=== PATIENT | male | born 1965 | race Caucasian/White ===

== ENCOUNTER 2020-06-30 11:58 | Outpatient (REF) | payer BC, SELFPAY | END 2020-06-30 11:59 | disposition home or self-care (01) | LOC: HO.LAB 11:58 | PROVIDERS: Visit Provider Internal Medicine | DX: Z20.828 Contact with and (suspected) exposure to other viral communicable diseases (principal) | CPT/HCPCS: C9803; U0003 ==

== ENCOUNTER 2021-12-08 21:38 | Inpatient (IN) | payer BC, SELFPAY ==
[2021-12-08 22:12] VITALS: BP 171/78; PULSE 95; RESP 18; TEMP 36.3; O2SAT 96; BMI 29.7
[2021-12-08 22:36] LABS: Glucose, Whole Blood 247 mg/dL (60-115)
[2021-12-08 22:58] LABS: MANUAL DIFF FLAG NO
[2021-12-08 22:59] LABS: Basophils Percent Auto 0.5 % (0-2); Eosinophils Absolute Auto 0.1 X10*3/uL (0.0-0.4); Eosinophils Percent Auto 1.8 % (0-4); Hematocrit 49.3 % (42.0-52.0); Hemoglobin 15.9 g/dl (14.0-18.0); Imm Gran Abs Auto 0.11 X10*3/uL (0.00-0.03); Imm Gran Pct Auto 1.5 % (0.0-0.4); Lymphocytes Absolute Auto 2.2 X10*3/uL (1.2-4.9); Lymphocytes Percent Auto 29.6 % (20-40); Mean Corpuscular HGB Conc 32.3 g/dl (31.0-36.0); Mean Corpuscular Hemoglobin 28.3 pg (27.0-33.0); Mean Corpuscular Volume 87.7 fL (80.0-98.0); Mean Platelet Volume 9.9 fL (9.4-12.4); Monocytes Absolute Auto 0.5 X10*3/uL (0.1-1.2); Neutrophils Absolute Auto 4.4 x10*3/uL (2.0-8.3); Neutrophils Percent Auto 59.6 % (45-73); Platelet Count 308 X10*3/uL (160-400); Red Blood Count 5.62 X10*6/uL (4.60-5.80); Red Cell Distribution Width 13.8 % (11.0-16.0); White Blood Count 7.4 X10*3/uL (4.8-10.8)
[2021-12-08 23:02] LABS: Appearance Urine CLEAR; Color Urine YELLOW; Glucose Urine UA >=1000 MG/DL (NEG); Leukocyte Esterase Urine NEG (NEG); Nitrite Urine POS (NEG); Urine Blood NEG (NEG); Urine Ketones 5 MG/DL (NEG); Urine Protein NEG (NEG-TRACE)
[2021-12-08 23:10] LABS: Ethanol < 10 mg/dL
[2021-12-08 23:12] LABS: COVID-19 Test Negative (Negative)
[2021-12-08 23:15] LABS: Alanine Aminotransferase 24 U/L (0-40); Alkaline Phosphatase 81 U/L (39-117); Amphetamine Screen Urine Not Detected (Not Detect); Anion Gap 13 (12-20); Aspartate Amino Transferase 21 U/L (5-37); Barbiturates, Urine Not Detected (Not Detect); Benzodiazepines Screen Urine Not Detected (Not Detect); Bilirubin Direct < 0.2 mg/dL (0.0-0.5); Bilirubin Total 0.3 mg/dL (0.0-1.0); Blood Urea Nitrogen 26 mg/dL (9-16); Calcium 10.2 mg/dL (8.4-10.2); Cannabinoid Screen Urine Not Detected (Not Detect); Carbon Dioxide 28 mmol/L (22-29); Chloride 107 mmol/L (96-108); Cocaine Screen Urine Not Detected (Not Detect); Creatinine Clr Calc Pharmacy 70.5; Estimated Glomerular Filt Rate 60; Fentanyl, urine Not Detected (Not Detect); Glucose Random 233 mg/dL (60-115); Magnesium 2.2 mg/dL (1.6-2.6); Opiate Screen Urine Not Detected (Not Detect); Phencyclidine Screen Urine Not Detected (Not Detect); Potassium 4.4 mmol/L (3.3-5.1); Sodium 144 mmol/L (135-145); Total Protein 7.4 g/dL (6.5-8.0)
[2021-12-08 23:18] LABS: Bacteria Urine 3+ /LPF; Squamous Epithelial Cell Urine TRACE /LPF
[2021-12-08 23:22] LABS: Acetaminophen LAB < 1 mcg/mL (<30); Salicylate < 5.0 mg/dL (15-30)
[2021-12-08 23:36] LABS: TSH reflex Free T4 2.04 uIU/mL (0.32-4.0)
--- NOTE | 2021-12-09 01:24 | ED_ITS ---
HPI - Psych General Chief Complaint: Psychiatric Symptoms Stated Complaint: Crisis, psych eval Time Seen by Provider: 12/08/21 22:25 Source: patient Mode of arrival: ambulatory Limitations: no limitations History of Present Illness HPI Narrative: 56-year-old male who presents emergency department for evaluation of depression and suicidal ideation. Patient states that he has been depressed for 13 years. He states that he has had in-patient treatment in the past as well as treatment partial programs. He states that in September of 2019 to he tripped, fell struck his head. He states he sustained a concussion and since that time he has had dizziness and vertigo. 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 He states that over the last 2-3 days he has had thoughts of suicide. He states that he has been thinking of hanging himself. He states that he did have a suicide attempt in the past . He states that time he was on prednisone which caused him to become very depressed, he then overdosed on his 's prescription pain medications. Patient states that he has been talking to outpatient crisis but felt that he needed to come to the hospital today to get more help. He denied being ill in any way. He denied fever, chills, rhinorrhea, sore throat, cough, chest pain, shortness of breath. Patient states that he received 2 Pfizer vaccinations and a booster vaccination. MD complaint: suicidal ideation and feels depressed Onset (ago): day(s) (3) Duration: constant History of same: Yes Relieving factors: none Exacerbating factors: other (Concussion September [address] or work since this injury) Associated psychiatric symptoms: depression and suicidal ideation Associated symptoms: denies other symptoms Treatments prior to arrival: none If self harm: has plan (He wants to hang himself) Related Data Home Medications Medication Instructions Recorded Confirmed bupropion HCl 150 mg 24 hr tablet, 1 tab PO QAM 12/08/21 12/08/21 extended release bupropion HCl 300 mg 24 hr tablet, 1 tab PO DAILY 12/08/21 12/08/21 extended release meclizine 12.5 mg tablet 1 tab PO TID PRN 12/08/21 12/08/21 meloxicam 15 mg tablet 1 tab PO DAILY PRN 12/08/21 12/08/21 metformin 500 mg tablet,extended 2 tab PO BID 12/08/21 12/08/21 release 24 hr sitagliptin 50 mg tablet (Januvia) 1 tab PO DAILY 12/08/21 12/08/21 trazodone 50 mg tablet 0.5 tab PO BEDTIME PRN 12/08/21 12/08/21 valsartan 160 mg tablet 1 tab PO DAILY 12/08/21 12/08/21 Allergies Allergy/AdvReac Type Severity Reaction Status Date / Time codeine [CODEINE] Allergy Unknown delayed Verified 12/08/21 22:11 responses 02/24/17 Review of Systems Review of Systems: Yes all other systems are reviewed and are negative COUNTS INCLUDE 234 BEDS AT THE [facility] Past Medical History COUNTS INCLUDE 234 BEDS AT THE [facility] Narrative: Past medical history: Diabetes, hypertension, hyperlipidemia, depression. Patient had a fall with a head injury September 2021 with concussion and residual vertigo like symptoms. Social history: He denies tobacco use. He states that he only occasionally drinks alcohol. He denies using drugs on a regular basis he states that he has used marijuana gummies. Social History Social History Advance Directives: No Physical Exam Vital Signs: Vital Signs: Last Vital Signs Temp 97.3 F 12/08/21 22:12 Pulse 95 12/08/21 22:12 Resp 18 12/08/21 22:12 BP 171/78 H 12/08/21 22:12 Pulse Ox 96 12/08/21 22:12 BMI result Body Mass Index 29.7 Const: General: cooperative and no acute distress Orientation/consciousness: oriented to person and oriented to place Limitations: no limitations HEENT: Head: Yes normal to inspection, Yes normocephalic and Yes atraumatic Ears: external ears normal General nose exam: Normal external nose present Face and sinus: Yes normal facial exam Mouth: Normal oral and palatal mucosa present Throat: Yes posterior oropharynx normal Eyes: General: appearance normal, both eyes and all related structures Pupils: Equal, round and reactive pupils present Neck: Neck: Yes normal visual inspection, Yes no lymphadenopathy, Yes trachea midline and Yes supple Chest: Chest palpation & inspection: normal inspection of the chest and normal palpation of entire chest wall Resp: Effort & Inspection: normal respiratory effort and able to speak in complete sentences Auscultation: clear to auscultation bilaterally Cardio: Rate: regular rate Rhythm: regular rhythm Heart sounds: S1 normal heart sound present, S2 normal heart sound present and no murmurs GI: Inspection: Yes normal to inspection Palpation (GI): Soft to palpation, nontender and no guarding Auscultation: normal bowel sounds : General: Yes no CVA tenderness Back/Spine/Pelvis: Back: no CVA tenderness Skin: General skin exam: no rashes or lesions noted Neuro: General: oriented to person and oriented to place Cranial nerves: Yes CN's II-XII intact bilaterally and Yes Equal, round and reactive pupils present Cognition (Neuro): normal cognition Motor exam (neuro): 5/5 motor strength present throughout Extrem: General: Yes normal to inspection Psych: Appearance: grossly normal Speech and movement: Normal speech and movement present Affect: normal affect Attitude: cooperative Thought process: Normal thought process present Thought content: Suicidality present and no homicidality Course Course Course Narrative: 56-year-old male who presents emergency department for evaluation of depression worse x3 days with suicidal thoughts with a plan to hang himself. The patient was not ill in any other way. His examination was unremarkable except for an elevated blood pressure of 171/78. The patient does have known hypertension. Laboratory evaluation was ordered. 0135: Laboratory evaluation: CBC was normal. Comprehensive metabolic panel revealed an elevated BUN of 26, elevated glucose of 233. TSH was normal. Urinalysis revealed positive glucose, positive nitrates, negative leukocyte esterase. Microscopic revealed 1-4 RBCs, 15-29 WBCs, trace squamous cells, 3+ bacteria. Urine tox was negative. Alcohol was below detectable limits. COVID was negative. The patient states he did have urinary frequency but no dysuria . The patient will be started on Keflex 500 mg 3 times a day for 5 days for urinary tract infection. He was given his 1st dose this morning. The patient is medically cleared for psychiatric evaluation. 0143: Start physician observation: Physician observation was started at 01:43 hours. The patient will need to be kept in the psychiatric unit until he can be evaluated by our crisis team. The patient's outpatient medications were ordered. The patient's examination revealed that he is awake and alert in no distress, lungs were clear, heart regular rate rhythm, abdomen soft nontender extremities were normal neurologic exam was nonfocal. [facility] - Psych Lab Data Result diagrams: 12/08/21 22:46 12/08/21 22:46 Labs: Lab Results 12/08/21 12/08/21 12/08/21 Range/Units 22:32 22:46 22:46 WBC 7.4 (4.8-10.8) X10*3/uL RBC 5.62 (4.60-5.80) X10*6/uL Hgb 15.9 (14.0-18.0) g/dl Hct 49.3 (42.0-52.0) % MCV 87.7 (80.0-98.0) fL MCH 28.3 (27.0-33.0) pg MCHC 32.3 (31.0-36.0) g/dl RDW 13.8 (11.0-16.0) % Plt Count 308 (160-400) X10*3/uL MPV 9.9 (9.4-12.4) fL Immature Gran % (Auto) 1.5 H (0.0-0.4) % Neut % (Auto) 59.6 (45-73) % Lymph % (Auto) 29.6 (20-40) % [place] % (Auto) 7.0 (2-11) % Eos % (Auto) 1.8 (0-4) % Baso % (Auto) 0.5 (0-2) % Lymph # (Auto) 2.2 (1.2-4.9) X10*3/uL [place] # (Auto) 0.5 (0.1-1.2) X10*3/uL Eos # (Auto) 0.1 (0.0-0.4) X10*3/uL Baso # (Auto) 0.0 (0.0-0.2) X10*3/uL Abs Immat Gran (auto) 0.11 H (0.00-0.03) X10*3/uL Absolute Neuts (auto) 4.4 (2.0-8.3) x10*3/uL Absolute Nucleated RBC 0.000 (0.0-0.012) X10*3/uL Nucleated RBC % (auto) 0.0 (0.0-0.2) /100WBC Sodium 144 (135-145) mmol/L Potassium 4.4 (3.3-5.1) mmol/L Chloride 107 (96-108) mmol/L Carbon Dioxide 28 (22-29) mmol/L Anion Gap 13 (12-20) BUN 26 H (9-16) mg/dL Creatinine 1.25 (0.5-1.4) mg/dL Estim Creat Clear Calc 70.5 Estimated GFR 60 POC Glucose 247 H (60-115) mg/dL Random Glucose 233 H (60-115) mg/dL Calcium 10.2 (8.4-10.2) mg/dL Magnesium (1.6-2.6) mg/dL Total Bilirubin 0.3 (0.0-1.0) mg/dL Direct Bilirubin < 0.2 (0.0-0.5) mg/dL AST 21 (5-37) U/L ALT 24 (0-40) U/L Alkaline Phosphatase 81 (39-117) U/L Total Protein 7.4 (6.5-8.0) g/dL Albumin 4.0 (3.5-5.0) g/dL TSH (0.32-4.0) uIU/mL Urine Color Urine Appearance Urine pH (5.0-8.0) Ur Specific [place] (1.005-1.025) Urine Protein (NEG-TRACE) MG/DL Urine Glucose (UA) (NEG) MG/DL Urine Ketones (NEG) MG/DL Urine Blood (NEG) Urine Nitrite (NEG) Ur Leukocyte Esterase (NEG) Urine RBC (0) /HPF Urine WBC (0-4) /HPF Ur Squamous Epith Cells /LPF Urine Bacteria /LPF Salicylates < 5.0 L (15-30) mg/dL Urine Opiates Screen (Not Detect) Urine Fentanyl Screen (Not Detect) Acetaminophen < 1 (<30) mcg/mL Ur Barbiturates Screen (Not Detect) Ur Phencyclidine Scrn (Not Detect) Ur Amphetamines Screen (Not Detect) U Benzodiazepines Scrn (Not Detect) Urine Cocaine Screen (Not Detect) U Marijuana (THC) Screen (Not Detect) Ethyl Alcohol mg/dL COVID-19 (FERN) (Negative) COVID-19 Clin Com 12/08/21 12/08/21 12/08/21 Range/Units 22:46 22:46 22:46 WBC (4.8-10.8) X10*3/uL RBC (4.60-5.80) X10*6/uL Hgb (14.0-18.0) g/dl Hct (42.0-52.0) % MCV (80.0-98.0) fL MCH (27.0-33.0) pg MCHC (31.0-36.0) g/dl RDW (11.0-16.0) % Plt Count (160-400) X10*3/uL MPV (9.4-12.4) fL Immature Gran % (Auto) (0.0-0.4) % Neut % (Auto) (45-73) % Lymph % (Auto) (20-40) % [place] % (Auto) (2-11) % Eos % (Auto) (0-4) % Baso % (Auto) (0-2) % Lymph # (Auto) (1.2-4.9) X10*3/uL [place] # (Auto) (0.1-1.2) X10*3/uL Eos # (Auto) (0.0-0.4) X10*3/uL Baso # (Auto) (0.0-0.2) X10*3/uL Abs Immat Gran (auto) (0.00-0.03) X10*3/uL Absolute Neuts (auto) (2.0-8.3) x10*3/uL Absolute Nucleated RBC (0.0-0.012) X10*3/uL Nucleated RBC % (auto) (0.0-0.2) /100WBC Sodium (135-145) mmol/L Potassium (3.3-5.1) mmol/L Chloride (96-108) mmol/L Carbon Dioxide (22-29) mmol/L Anion Gap (12-20) BUN (9-16) mg/dL Creatinine (0.5-1.4) mg/dL Estim Creat Clear Calc Estimated GFR POC Glucose (60-115) mg/dL Random Glucose (60-115) mg/dL Calcium (8.4-10.2) mg/dL Magnesium 2.2 (1.6-2.6) mg/dL Total Bilirubin (0.0-1.0) mg/dL Direct Bilirubin (0.0-0.5) mg/dL AST (5-37) U/L ALT (0-40) U/L Alkaline Phosphatase (39-117) U/L Total Protein (6.5-8.0) g/dL Albumin (3.5-5.0) g/dL TSH 2.04 (0.32-4.0) uIU/mL Urine Color YELLOW Urine Appearance CLEAR Urine pH 6.0 (5.0-8.0) Ur Specific [place] 1.020 (1.005-1.025) Urine Protein NEG (NEG-TRACE) MG/DL Urine Glucose (UA) >=1000 H (NEG) MG/DL Urine Ketones 5 (NEG) MG/DL Urine Blood NEG (NEG) Urine Nitrite POS H (NEG) Ur Leukocyte Esterase NEG (NEG) Urine RBC 1-4 (0) /HPF Urine WBC 15-29 H (0-4) /HPF Ur Squamous Epith Cells TRACE /LPF Urine Bacteria 3+ /LPF Salicylates (15-30) mg/dL Urine Opiates Screen (Not Detect) Urine Fentanyl Screen (Not Detect) Acetaminophen (<30) mcg/mL Ur Barbiturates Screen (Not Detect) Ur Phencyclidine Scrn (Not Detect) Ur Amphetamines Screen (Not Detect) U Benzodiazepines Scrn (Not Detect) Urine Cocaine Screen (Not Detect) U Marijuana (THC) Screen (Not Detect) Ethyl Alcohol < 10 mg/dL COVID-19 (FERN) (Negative) COVID-19 Clin Com 12/08/21 12/08/21 Range/Units 22:46 22:47 WBC (4.8-10.8) X10*3/uL RBC (4.60-5.80) X10*6/uL Hgb (14.0-18.0) g/dl Hct (42.0-52.0) % MCV (80.0-98.0) fL MCH (27.0-33.0) pg MCHC (31.0-36.0) g/dl RDW (11.0-16.0) % Plt Count (160-400) X10*3/uL MPV (9.4-12.4) fL Immature Gran % (Auto) (0.0-0.4) % Neut % (Auto) (45-73) % Lymph % (Auto) (20-40) % [place] % (Auto) (2-11) % Eos % (Auto) (0-4) % Baso % (Auto) (0-2) % Lymph # (Auto) (1.2-4.9) X10*3/uL [place] # (Auto) (0.1-1.2) X10*3/uL Eos # (Auto) (0.0-0.4) X10*3/uL Baso # (Auto) (0.0-0.2) X10*3/uL Abs Immat Gran (auto) (0.00-0.03) X10*3/uL Absolute Neuts (auto) (2.0-8.3) x10*3/uL Absolute Nucleated RBC (0.0-0.012) X10*3/uL Nucleated RBC % (auto) (0.0-0.2) /100WBC Sodium (135-145) mmol/L Potassium (3.3-5.1) mmol/L Chloride (96-108) mmol/L Carbon Dioxide (22-29) mmol/L Anion Gap (12-20) BUN (9-16) mg/dL Creatinine (0.5-1.4) mg/dL Estim Creat Clear Calc Estimated GFR POC Glucose (60-115) mg/dL Random Glucose (60-115) mg/dL Calcium (8.4-10.2) mg/dL Magnesium (1.6-2.6) mg/dL Total Bilirubin (0.0-1.0) mg/dL Direct Bilirubin (0.0-0.5) mg/dL AST (5-37) U/L ALT (0-40) U/L Alkaline Phosphatase (39-117) U/L Total Protein (6.5-8.0) g/dL Albumin (3.5-5.0) g/dL TSH (0.32-4.0) uIU/mL Urine Color Urine Appearance Urine pH (5.0-8.0) Ur Specific [place] (1.005-1.025) Urine Protein (NEG-TRACE) MG/DL Urine Glucose (UA) (NEG) MG/DL Urine Ketones (NEG) MG/DL Urine Blood (NEG) Urine Nitrite (NEG) Ur Leukocyte Esterase (NEG) Urine RBC (0) /HPF Urine WBC (0-4) /HPF Ur Squamous Epith Cells /LPF Urine Bacteria /LPF Salicylates (15-30) mg/dL Urine Opiates Screen Not Detected (Not Detect) Urine Fentanyl Screen Not Detected (Not Detect) Acetaminophen (<30) mcg/mL Ur Barbiturates Screen Not Detected (Not Detect) Ur Phencyclidine Scrn Not Detected (Not Detect) Ur Amphetamines Screen Not Detected (Not Detect) U Benzodiazepines Scrn Not Detected (Not Detect) Urine Cocaine Screen Not Detected (Not Detect) U Marijuana (THC) Screen Not Detected (Not Detect) Ethyl Alcohol mg/dL COVID-19 (FERN) Negative (Negative) COVID-19 Clin Com See Note Discharge Plan Discharge Clinical Impression: Depression, Suicidal ideation, Urinary tract infection Patient Disposition: Still a Patient Prescriptions: No Action Januvia 50 mg tablet 1 tab PO DAILY 0RF bupropion HCl 150 mg tablet extended release 24 hr 1 tab PO QAM 0RF bupropion HCl 300 mg tablet extended release 24 hr 1 tab PO DAILY 0RF meclizine 12.5 mg tablet 1 tab PO TID PRN (Reason: dizziness) 0RF meloxicam 15 mg tablet 1 tab PO DAILY PRN (Reason: pain) 0RF metformin 500 mg tablet extended release 24 hr 2 tab PO BID 0RF trazodone 50 mg tablet 0.5 tab PO BEDTIME PRN (Reason: insomnia) 0RF valsartan 160 mg tablet 1 tab PO DAILY 0RF
[2021-12-09] MEDS: cephALEXin 500 MG CAPSULE PO ×4 (02:25→20:34)
[2021-12-09 04:51] VITALS: BP 174/92; PULSE 77; RESP 16; TEMP 36.3; O2SAT 96
--- NOTE | 2021-12-09 07:18 | PC.NURSE ---
Patient slept through the night, no distress observed/reported, behavior appropriate and non concerning, MAR updated, awaiting care team assessment, VSS, will continue to monitor.
[2021-12-09 08:11] VITALS: BP 154/91; PULSE 77; RESP 14; TEMP 36.7; O2SAT 96
--- NOTE | 2021-12-09 08:19 | PC.NURSE ---
called pharm for meds
[2021-12-09] MEDS: buPROPion HCl XL 300 MG TAB.ER.24H PO (08:21)
[2021-12-09] MEDS: metFORMIN HCl ER 500 MG TAB.ER.24H 1000 MG PO ×2 (08:21→20:34)
[2021-12-09] MEDS: buPROPion HCl XL 150 MG TAB.ER.24H PO (08:21)
[2021-12-09] MEDS: SITagliptin Phosphate 50 MG TABLET PO (09:33)
[2021-12-09] MEDS: Valsartan 160 MG TABLET PO (09:33)
--- NOTE | 2021-12-09 09:43 | PC.NURSE ---
seen by care team plan for bed search
[2021-12-09] MEDS: traZODone HCL 25 MG HALFTAB PO (23:26)
--- NOTE | 2021-12-10 06:32 | PC.NURSE ---
Patient slept through the night, no distress observed/reported, medication complaint, disposition by care team is section 12 inpatient bed search, VSS, contracted for the safety, behavior non concerning and appropriate, will continue to monitor.
--- NOTE | 2021-12-10 08:02 | PC.NURSE ---
pt a/o x 3 no sob/enrike noted skin pink warm dry speaks in full sentences. amb (i) gait steady. / headache, pt states +si. pt aware of plan of care.
[2021-12-10] MEDS: metFORMIN HCl ER 500 MG TAB.ER.24H 1000 MG PO ×2 (08:07→20:28)
[2021-12-10] MEDS: buPROPion HCl XL 300 MG TAB.ER.24H PO (08:07)
[2021-12-10] MEDS: Valsartan 160 MG TABLET PO (08:08)
[2021-12-10] MEDS: Acetaminophen 325 MG TABLET 650 MG PO (08:08)
[2021-12-10] MEDS: cephALEXin 500 MG CAPSULE PO ×3 (08:08→20:28)
[2021-12-10] MEDS: buPROPion HCl XL 150 MG TAB.ER.24H PO (08:09)
[2021-12-10] MEDS: SITagliptin Phosphate 50 MG TABLET PO (08:09)
[2021-12-10 08:13] VITALS: BP 158/91; PULSE 82; RESP 14; TEMP 36.8; O2SAT 99
[2021-12-10 13:56] VITALS: BP 170/83; PULSE 86; RESP 16; TEMP 36.5; O2SAT 98
[2021-12-10] MEDS: traZODone HCL 25 MG HALFTAB PO (21:47)
--- NOTE | 2021-12-11 | ECG_ITS ---
Test Reason : CLEARANCE Blood Pressure : / mmHG Vent. Rate : 083 BPM Atrial Rate : 083 BPM P-R Int : 152 ms QRS Dur : 136 ms QT Int : 420 ms P-R-T Axes : 040 013 100 degrees QTc Int : 493 ms Normal sinus rhythm Left bundle branch block Abnormal ECG When compared with ECG of 29-JUN-2019 14:59, Left bundle branch block is now Present Referred By: Rae Anderson Electronically Signed By:ANNIE HINKLE MD
[2021-12-11 00:35] VITALS: BP 159/103; PULSE 85; RESP 16; TEMP 36.6; O2SAT 95
[2021-12-11 04:35] VITALS: BP 173/89; PULSE 83; O2SAT 96
[2021-12-11] MEDS: Meclizine HCl 12.5 MG TABLET PO ×2 (04:57→22:34)
--- NOTE | 2021-12-11 06:05 | PC.NURSE ---
Patient slept through the night intermittently, no distress observed/reported, medication complaint, disposition by care team is voluntary inpatient bed search, patient may be admitted to today per care team, VSS, contracted for the safety, behavior non concerning and appropriate, will continue to monitor.
--- NOTE | 2021-12-11 07:03 | PC.NURSE ---
patient appears to remain asleep at present respirations are even and unlabored patient appears in no distress
[2021-12-11 07:36] VITALS: BP 150/85; PULSE 83; TEMP 35.8; O2SAT 98
[2021-12-11] MEDS: metFORMIN HCl ER 500 MG TAB.ER.24H 1000 MG PO ×2 (08:48→20:25)
[2021-12-11] MEDS: buPROPion HCl XL 150 MG TAB.ER.24H PO (08:48)
[2021-12-11] MEDS: buPROPion HCl XL 300 MG TAB.ER.24H PO (08:48)
[2021-12-11] MEDS: cephALEXin 500 MG CAPSULE PO ×3 (08:48→20:25)
[2021-12-11] MEDS: SITagliptin Phosphate 50 MG TABLET PO (09:02)
[2021-12-11] MEDS: Valsartan 160 MG TABLET PO (09:02)
[2021-12-11 12:28] LABS: COVID-19 Test Negative (Negative); IDNOW Serial# 16C4AD1C
[2021-12-11 14:52] LABS: Troponin-I High Sensitivity < 3.5 ng/L (<3.5-35.0)
--- NOTE | 2021-12-11 17:15 | ECG_ITS ---
Test Reason : cp Blood Pressure : / mmHG Vent. Rate : 095 BPM Atrial Rate : 095 BPM P-R Int : 142 ms QRS Dur : 132 ms QT Int : 400 ms P-R-T Axes : 038 030 117 degrees QTc Int : 502 ms Normal sinus rhythm Left bundle branch block Abnormal ECG When compared with ECG of 11-DEC-2021 11:33, No significant change was found Referred By: Sean Do Electronically Signed By:ANNIE HINKLE MD
[2021-12-11 17:16] VITALS: BP 142/82; PULSE 104; RESP 17; TEMP 36.2; O2SAT 98
--- NOTE | 2021-12-11 17:58 | PC.ADMIT ---
Patient is a 56 year old male who presented to the unit on a CV from [facility] [place] [facility] ED POD. Patient signed a 3 day notice when he arrived to the unit. Patient is pleasant and cooperative with admission process. At times presented tearful during admission interview. Patient is alert and oriented x4. Patient reported Friday I did not feel right and knew I needed help . Patient reported that he has increasing depression and anxiety since September, secondary to a fall he had. This fall resulted in a concussion and ongoing vertigo that has subsequently made working and driving not do able. Since I have not been able to drive or work I just rely on my and daughter. I have always had these thoughts of SI, but lately they have more intrusive thoughts and I have had more thoughts of actually acting on them . Patient reported that he is able to seek staff out and contracted for safety. I feel safe in the hospital, but I worry for when I get out. Patient reported that he has racing thoughts as to what if I don't get better, what will I do . I like to reach out for help, If i get quiet and do not come out or go to group that is a big red flag for me . Reports he has a support system, but My thinks I should just be better. I need her there for me though . Patient denied ever smoking, reported alcohol use is socially (monthly or less), and no substance use. Patient currently is on antibiotic treatment for a UTI. Patient reported that he has some burning with urination. Reported anxiety is 8/10 and depression 8/10. sometimes too much stimuli makes me anxious, and I thin that is what happens in the real world, not the hospital . Denies HI/AH/VH. 15 minute safety checks initiated. Reported that I am a type 2 diabetic . Reported that Wellbutrin and abilify have been working for him but believes they need to be adjusted. Sated I want to be set up with a therapist by discharge . Currently has a psychiatrist.
[2021-12-11 18:28] VITALS: BP 137/91; PULSE 55; RESP 16; TEMP 36.8; O2SAT 97
[2021-12-11] MEDS: traZODone HCL 50 MG TABLET PO (22:34)
[2021-12-12 08:00] VITALS: BP 112/66; PULSE 85; RESP 18; TEMP 36.4; O2SAT 96
[2021-12-12] MEDS: cephALEXin 500 MG CAPSULE PO ×3 (09:04→20:56)
[2021-12-12] MEDS: buPROPion HCl XL 150 MG TAB.ER.24H PO (09:04)
[2021-12-12] MEDS: SITagliptin Phosphate 50 MG TABLET PO (09:04)
[2021-12-12] MEDS: metFORMIN HCl ER 500 MG TAB.ER.24H 1000 MG PO ×2 (09:04→22:52)
[2021-12-12] MEDS: buPROPion HCl XL 300 MG TAB.ER.24H PO (09:04)
[2021-12-12] MEDS: Valsartan 160 MG TABLET PO (09:04)
[2021-12-12] MEDS: Meclizine HCl 12.5 MG TABLET PO ×3 (09:33→20:56)
[2021-12-12 10:23] LABS: Estimated Average Glucose 212 mg/dL
[2021-12-12 10:41] LABS: Cholesterol 201 mg/dL; HDL Cholesterol 45 mg/dL; LDL Cholesterol Calculated 126 mg/dl; Triglycerides 153 mg/dL
[2021-12-12 11:05] LABS: Free T4 (Free Thyroxine) 1.35 ng/dL (0.71-1.85); Thyroid Stimulating Hormone 1.41 uIU/mL (0.32-4.0)
[2021-12-12 11:42] LABS: Folate 10.8 ng/mL (> or = 4.0); Vitamin B12 508 pg/mL (200-900)
--- NOTE | 2021-12-12 15:17 | PM.NEUROCN ---
History of Present Illness Data of Consult Service Date: 12/12/21 Primary Care Provider: Unknown Physician HPI Reason for consult: Dizziness 56 years old man with chronic dizziness that has worsened after recent head injury. He was admitted in this hospital in 2017 with somewhat similar dizziness. Multiple investigations were done. There was no evidence of any definite acute lesion. Of note, at that time CT scan of the brain report suggested that he might have a stroke but MRI did not confirm it. I reviewed those scans and did not find any stroke-like lesion. Recently was in floor when he bumped into what he stated as edge of a door. He sustained a laceration on his forehead but did not seek any medical attention. He started having headache and dizziness. Came to this area and then went to hospital couple of times in [facility]. He was prescribed meclizine and was also prescribed vestibular therapy. He said that he was feeling better though he was still having headache. At this time he was on psychiatric floor for symptoms of depression. There was no recent loss of consciousness or seizure-like episode or double vision. Review of Systems Review of Systems: No recent cold or flu-like illness PMFSH Social History Social History Household Members: Spouse Housing: House Do you presently have visiting nurse or other home services: No Patient Tobacco Use Status: Never used Tobacco Use of substances other than those prescribed or required for medical reasons: No Currently Displaying Signs/Symptoms of Drug Intoxication Withdrawal: No Have you been hit, kicked, punched, or otherwise hurt by someone within the past year? If so, by whom?: No Do you feel safe in your current relationship?: Yes Is there a partner from a previous relationship who is making you feel unsafe now?: No Are you made to feel afraid or neglected: No Spiritual Healthcare Practices: Patient declined. Scientologist Healthcare Practices: Patient declined. Cultural Healthcare Practices: Patient declined. Advance Directives: No Healthcare Proxy: No Guardian: No Do you have thoughts of harming others: None Do you have a plan to hurt others: No Plan Recently lost weight without trying: No Nutrition Risks: No Nutritional Risk Poor oral hygiene: No service: No Sexual orientation: Straight/Heterosexual Meds Allergies Allergy/AdvReac Type Severity Reaction Status Date / Time codeine [CODEINE] Allergy Unknown delayed Verified 05/28/22 22:11 responses 02/24/17 Active Medications: Current Medications Acetaminophen (Acetaminophen 325 Mg Tablet) 650 mg PO ONCE PRN PRN Reason: Pain, Mild (Pain Scale 1-3) Last Admin: 12/10/21 08:08 Dose: 650 mg Documented by: Acetaminophen (Acetaminophen 325 Mg Tablet) 650 mg PO Q6H PRN PRN Reason: Headache/Pain Mild Scale (1-3) Al Hydroxide/Mg Hydroxide (Magnesium Hydrox/Alum Hydrox 30 Ml Oral.Susp) 30 ml PO Q6H PRN PRN Reason: Heartburn/Nausea Bupropion HCl (Bupropion Hcl Xl 150 Mg Tab.Er.24h) 150 mg PO DAILY [facility] Last Admin: 12/12/21 09:04 Dose: 150 mg Documented by: Bupropion HCl (Bupropion Hcl Xl 300 Mg Tab.Er.24h) 300 mg PO DAILY [facility] Last Admin: 12/12/21 09:04 Dose: 300 mg Documented by: Cephalexin HCl (Cephalexin 500 Mg Capsule) 500 mg PO TID [facility] Stop: 12/13/21 09:00 Last Admin: 12/12/21 14:49 Dose: 500 mg Documented by: Hydroxyzine HCl (Hydroxyzine Hcl 25 Mg Tablet) 25 mg PO BEDTIME PRN PRN Reason: Anxiety Magnesium Hydroxide (Milk Of Magnesia 30 Ml Oral.Susp) 30 ml PO DAILY PRN PRN Reason: Constipation Meclizine HCl (Meclizine Hcl 12.5 Mg Tablet) 12.5 mg PO TID PRN PRN Reason: dizziness Last Admin: 12/12/21 14:48 Dose: 12.5 mg Documented by: Metformin HCl (Metformin Hcl Er 500 Mg Tab.Er.24h) 1,000 mg PO BID [facility] Last Admin: 12/12/21 09:04 Dose: 1,000 mg Documented by: Naproxen (Naproxen 500 Mg Tablet) 500 mg PO BID PRN PRN Reason: pain Sitagliptin Phosphate (Sitagliptin Phosphate 50 Mg Tablet) 50 mg PO DAILY [facility] Last Admin: 12/12/21 09:04 Dose: 50 mg Documented by: Trazodone HCl (Trazodone Hcl 50 Mg Tablet) 50 mg PO BEDTIME [facility] Trazodone HCl (Trazodone Hcl 50 Mg Tablet) 50 mg PO BEDTIME PRN PRN Reason: insomnia Valsartan (Valsartan 160 Mg Tablet) 160 mg PO DAILY [facility]; Protocol Last Admin: 12/12/21 09:04 Dose: 160 mg Documented by: Home Medications Medication Instructions Recorded Confirmed Last Taken Type bupropion HCl 150 mg 24 hr tablet, 1 tab PO QAM 12/08/21 12/08/21 Unknown History extended release bupropion HCl 300 mg 24 hr tablet, 1 tab PO DAILY 12/08/21 12/08/21 Unknown History extended release meclizine 12.5 mg tablet 1 tab PO TID PRN 12/08/21 12/08/21 Unknown History meloxicam 15 mg tablet 1 tab PO DAILY PRN 12/08/21 12/08/21 Unknown History metformin 500 mg tablet,extended 2 tab PO BID 12/08/21 12/08/21 Unknown History release 24 hr sitagliptin 50 mg tablet (Januvia) 1 tab PO DAILY 12/08/21 12/08/21 Unknown History trazodone 50 mg tablet 0.5 tab PO BEDTIME PRN 12/08/21 12/08/21 Unknown History valsartan 160 mg tablet 1 tab PO DAILY 12/08/21 12/08/21 Unknown History Physical Exam Vital Signs: Vital Signs: Last Vital Signs Temp 97.6 F 12/12/21 08:00 Pulse 85 12/12/21 08:00 Resp 18 12/12/21 08:00 BP 112/66 12/12/21 08:00 Pulse Ox 96 12/12/21 08:00 BMI result Body Mass Index 29.7 Neuro: Other: alert and awake with normal spontaneity of speech fluency comprehension and affect. Pupils were round reactive to light. Extraocular muscles were intact. Visual ring are full to threat. Face was symmetrical. Tongue was midline. There was no pronator drift. Deep tendon reflexes are absent with flexor plantars. Speech and walking were normal. Results Labs CBC & Chem 7: 12/08/21 22:46 12/08/21 22:46 Assessment and Plan (1) Dizziness: Status: Acute 56 years old man with chronic dizziness. He was admitted in this hospital in 2017 with symptoms of dizziness and headaches. Recently he bumped his head into something and had worsening of his symptoms including dizziness and headaches. He did not seek any immediate medical attention but few days later was in [facility]. He said that meclizine was prescribed and vestibular rehab was started. He was feeling somewhat better but continued to have headache. With history of closed head injury like this, worsening of underlying migraine and dizziness was not unusual. Patient's typically take few weeks to few months for recovery though underlying dizziness and migraine could still continue. I would avoid regular use of meclizine and would only consider it if dizziness was causing significant nausea vomiting. If needed 12.5 mg as needed can be used. As far as headaches are concerned, I suggest using amitriptyline 25 mg at night, which could also help him sleep. Procedures Date of Service Date of Service: 12/12/21
--- NOTE | 2021-12-12 20:06 | P.HPPS_ITS ---
HPI Date of Service: 12/12/21 Chief Complaint: SI HPI Narrative: pt with h/o depression with SI and h/o suicide attempt via overdose on 's medications a year ago c/o worsened depression and SI since September of 2021, when he sustained a concussion and developed chronic vertigo/dizziness and cognitive changes. since the head injury he has been unable to drive or work, per his report. on presentation to the ED he reported a plan of hanging himself by the neck until , having been experiencing SI for the 5 previous days. on interview with MD, states this is not my first rodeo. i know exactly what to say to not get section 12'ed. pt then states, on being asked his mood, that it is on the verge of dangerous. discuss med changes, and he feels his meds are well enough as they are, with the DC of ian which had been directed by his outpatient psych MD. he would like to experience milieu therapy; MD encourages him to work on coping skills in group. he endorses ongoing SI with no plan or intent on the unit. he describes his mental health Hx and his course since s ustaining a concussion in september of 2021. he states he was never seen by a neurologist afterward and is amenable to evaluation by neuro here. no other questions or concerns. Past Psychiatric History: psych hosps - about 6 prior, starting about 13 years ago SA - h/o 1 prior, via overdose, sometime in 2020. he reports he was on prednisone, which he avers made him suicidal. reports h/o seasonal affective disorder Dx from [age] yo. took meds in winter, can't recall what. reports he wet his bed until his early teens. 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 , lives with his and 2 of their 4 children (2 are adult children). Substance History: reports occasional drinking of alcoholic beverages. denies use of other substances. Trauma History: reports that an alarm used to wake him from his sleep if he wet the bed traumatized him. he denies any h/o childhood abuse. Diagnostics Vital Signs (24Hr): Vital Signs - 24 hr 06/01/22 08:00 Temperature 97.6 F Pulse Rate 85 Respiratory Rate 18 Blood Pressure 112/66 Pulse Oximetry 96 BMI result Body Mass Index 29.7 Labs Results: 12/08/21 22:46 12/08/21 22:46 Labs: Laboratory Results - last 48 hr 12/11/21 12/11/21 12/12/21 11:57 14:15 09:27 Estimat Average Glucose 212 Hemoglobin A1c % 9.0 Troponin I High Sens < 3.5 Triglycerides Cholesterol LDL Cholesterol, Calc HDL Cholesterol Vitamin B12 Folate TSH Free T4 COVID-19 ([facility]) Negative COVID-19 Clin Com See Note 12/12/21 12/12/21 09:27 09:27 Estimat Average Glucose Hemoglobin A1c % Troponin I High Sens Triglycerides 153 Cholesterol 201 LDL Cholesterol, Calc 126 HDL Cholesterol 45 Vitamin B12 508 Folate 10.8 TSH 1.41 Free T4 1.35 COVID-19 ([facility]) COVID-19 Clin Com Meds/Allergies Meds Home Medications Medication Instructions Recorded Confirmed Type bupropion HCl 150 mg 24 hr tablet, 1 tab PO QAM 12/08/21 12/08/21 History extended release bupropion HCl 300 mg 24 hr tablet, 1 tab PO DAILY 12/08/21 12/08/21 History extended release meclizine 12.5 mg tablet 1 tab PO TID PRN 12/08/21 12/08/21 History meloxicam 15 mg tablet 1 tab PO DAILY PRN 12/08/21 12/08/21 History metformin 500 mg tablet,extended 2 tab PO BID 12/08/21 12/08/21 History release 24 hr sitagliptin 50 mg tablet (Januvia) 1 tab PO DAILY 12/08/21 12/08/21 History trazodone 50 mg tablet 0.5 tab PO BEDTIME PRN 12/08/21 12/08/21 History valsartan 160 mg tablet 1 tab PO DAILY 12/08/21 12/08/21 History Allergies Allergies Allergy/AdvReac Type Severity Reaction Status Date / Time codeine [CODEINE] Allergy Unknown delayed Verified 12/08/21 22:11 responses 02/24/17 Mental Status Exam Mental Status Exam Narrative: calm cooperative. appropriately dressed and groomed, no PMA/PMR. speech nml in rate, amount, loudness, tone, latency. thoughts linear and logical. affect constricted, consistent with context, normo-intense, non-labile. mood on the verge of dangerous. endorses SI, no plan or intent in the hospital. denies HI/AVH. Assessment & Plan Assessment & Plan (1) Depression: Status: Acute Code(s): F32.A - Depression, unspecified (2) Urinary tract infection: Status: Acute Code(s): N39.0 - Urinary tract infection, site not specified (3) Dizziness: Status: Acute Code(s): R42 - Dizziness and giddiness (4) Suicidal ideation: Status: Acute Code(s): R45.851 - Suicidal ideations Plan continue home meds aside from abilify, which patient reports he had been in the midst of tapering with his outpatient provider. he states he had only been taking 2 mg daily prior to admission and was informed the medication could safely be stopped at this point. neuro consult placed for dizziness/vertigo, cognitive changes, as pt reports he has not been seen by a neurologist since his concussion. Patient educated on: medication risk/benefits Reason for continued inpatient stay Substantial Risk for: harm to self and inability to function
[2021-12-12 20:53] VITALS: BP 153/80; PULSE 92; RESP 18; TEMP 35.8; O2SAT 97
[2021-12-12] MEDS: traZODone HCL 50 MG TABLET PO (22:52)
[2021-12-13] MEDS: hydrOXYzine HCL 25 MG TABLET PO ×2 (01:07→22:14)
[2021-12-13] MEDS: Meclizine HCl 12.5 MG TABLET PO ×2 (01:07→22:14)
[2021-12-13 09:00] VITALS: BP 133/70; PULSE 88; RESP 20; TEMP 36.1; O2SAT 96
[2021-12-13] MEDS: SITagliptin Phosphate 50 MG TABLET PO (09:05)
[2021-12-13] MEDS: buPROPion HCl XL 150 MG TAB.ER.24H PO (09:05)
[2021-12-13] MEDS: buPROPion HCl XL 300 MG TAB.ER.24H PO (09:05)
[2021-12-13] MEDS: metFORMIN HCl ER 500 MG TAB.ER.24H 1000 MG PO ×2 (09:06→22:14)
[2021-12-13] MEDS: cephALEXin 500 MG CAPSULE PO (09:06)
[2021-12-13] MEDS: Valsartan 160 MG TABLET PO (09:06)
[2021-12-13 09:13] LABS: Glucose, Whole Blood 231 mg/dL (60-115)
[2021-12-13] MEDS: NaPROXEN 500 MG TABLET PO ×2 (12:37→22:15)
[2021-12-13] MEDS: Acetaminophen 325 MG TABLET 650 MG PO (13:57)
[2021-12-13 15:22] VITALS: BMI 29.6
--- NOTE | 2021-12-13 15:36 | P.PNPSI_ITS ---
Subjective Subjective Date of Service: 12/13/21 Reason For Visit: SI Interim History: calm, cooperative. states his SI was really bad last night. he feels he is at high risk right now. if i were to get out today, i'm afraid i would hurt myself. discuss neuro consult. reviewed rec for elavil at for FROST, insomnia. also may help with depression. pt agrees to trial. also agrees to try to minimize meclizine use per neuro rec. no other complaints or requests, will continue to attend groups, practice coping skills, engage in milieu therapy. Mental Status Exam Mental Status Exam Narrative: calm cooperative. appropriately dressed and groomed, no PMA/PMR. speech nml in rate, amount, loudness, tone, latency. thoughts linear and logical. affect constricted, consistent with context, normo-intense, non-labile. mood depressed. endorses SI, no plan or intent in the hospital. denies HI/AVH. Diagnostics Vital Signs (24Hr): Vital Signs - 24 hr 12/12/21 20:53 12/13/21 09:00 Temperature 96.4 F L 97.0 F Pulse Rate 92 88 Respiratory Rate 18 20 Blood Pressure 153/80 H 133/70 Pulse Oximetry 97 96 BMI result Body Mass Index 29.6 Labs Results: 12/08/21 22:46 12/08/21 22:46 Labs: Laboratory Results - last 48 hr 12/12/21 12/12/21 12/12/21 09:27 09:27 09:27 POC Glucose Estimat Average Glucose 212 Hemoglobin A1c % 9.0 Triglycerides 153 Cholesterol 201 LDL Cholesterol, Calc 126 HDL Cholesterol 45 Vitamin B12 508 Folate 10.8 TSH 1.41 Free T4 1.35 12/13/21 09:04 POC Glucose 231 H Estimat Average Glucose Hemoglobin A1c % Triglycerides Cholesterol LDL Cholesterol, Calc HDL Cholesterol Vitamin B12 Folate TSH Free T4 Medications Medications Current Medications Acetaminophen (Acetaminophen 325 Mg Tablet) 650 mg PO ONCE PRN PRN Reason: Pain, Mild (Pain Scale 1-3) Last Admin: 12/10/21 08:08 Dose: 650 mg Documented by: Acetaminophen (Acetaminophen 325 Mg Tablet) 650 mg PO Q6H PRN PRN Reason: Headache/Pain Mild Scale (1-3) Last Admin: 12/13/21 13:57 Dose: 650 mg Documented by: Al Hydroxide/Mg Hydroxide (Magnesium Hydrox/Alum Hydrox 30 Ml Oral.Susp) 30 ml PO Q6H PRN PRN Reason: Heartburn/Nausea Amitriptyline HCl (Amitriptyline Hcl 25 Mg Tablet) 25 mg PO BEDTIME [facility] Bupropion HCl (Bupropion Hcl Xl 150 Mg Tab.Er.24h) 150 mg PO DAILY [facility] Last Admin: 12/13/21 09:05 Dose: 150 mg Documented by: Bupropion HCl (Bupropion Hcl Xl 300 Mg Tab.Er.24h) 300 mg PO DAILY [facility] Last Admin: 12/13/21 09:05 Dose: 300 mg Documented by: Hydroxyzine HCl (Hydroxyzine Hcl 25 Mg Tablet) 25 mg PO BEDTIME PRN PRN Reason: Anxiety Last Admin: 12/13/21 01:07 Dose: 25 mg Documented by: Magnesium Hydroxide (Milk Of Magnesia 30 Ml Oral.Susp) 30 ml PO DAILY PRN PRN Reason: Constipation Meclizine HCl (Meclizine Hcl 12.5 Mg Tablet) 12.5 mg PO TID PRN PRN Reason: dizziness Last Admin: 12/13/21 01:07 Dose: 12.5 mg Documented by: Metformin HCl (Metformin Hcl Er 500 Mg Tab.Er.24h) 1,000 mg PO BID [facility] Last Admin: 12/13/21 09:06 Dose: 1,000 mg Documented by: Naproxen (Naproxen 500 Mg Tablet) 500 mg PO BID PRN PRN Reason: pain Last Admin: 12/13/21 12:37 Dose: 500 mg Documented by: Sitagliptin Phosphate (Sitagliptin Phosphate 50 Mg Tablet) 50 mg PO DAILY [facility] Last Admin: 12/13/21 09:05 Dose: 50 mg Documented by: Trazodone HCl (Trazodone Hcl 50 Mg Tablet) 50 mg PO BEDTIME [facility] Last Admin: 12/12/21 22:52 Dose: 50 mg Documented by: Trazodone HCl (Trazodone Hcl 50 Mg Tablet) 50 mg PO BEDTIME PRN PRN Reason: insomnia Valsartan (Valsartan 160 Mg Tablet) 160 mg PO DAILY [facility]; Protocol Last Admin: 12/13/21 09:06 Dose: 160 mg Documented by: Allergies Allergies Allergy/AdvReac Type Severity Reaction Status Date / Time codeine [CODEINE] Allergy Unknown delayed Verified 12/08/21 22:11 responses 02/24/17 Assessment & Plan Assessment & Plan (1) Depression: Status: Acute Code(s): F32.A - Depression, unspecified (2) Urinary tract infection: Status: Acute Code(s): N39.0 - Urinary tract infection, site not specified (3) Dizziness: Status: Acute Code(s): R42 - Dizziness and giddiness (4) Suicidal ideation: Status: Acute Code(s): R45.851 - Suicidal ideations Plan at admission 12/12 continued home meds aside from abilify, which patient reports he had been in the midst of tapering with his outpatient provider. he states he had only been taking 2 mg daily prior to admission and was informed the medication could safely be stopped at this point. neuro consult placed 12/12 for dizziness/vertigo, cognitive changes, as pt reports he has not been seen by a neurologist since his concussion. organizational consultant recommended to minimize meclizine, add elavil at HS, and F/U outpt. elavil 25 mg QHS added 12/13. remains suicidal. I spent ___25___ minutes with the patient and/or on the patient floor today, greater than?50% of which was spent counseling/coordinating care. Reason for contiued inpatient stay Substantial Risk for: harm to self, inability to function and rapid decompensation
[2021-12-13 22:11] VITALS: BP 179/87; PULSE 94; RESP 18; TEMP 35.6; O2SAT 96
[2021-12-13] MEDS: Amitriptyline HCl 25 MG TABLET PO (22:13)
[2021-12-13] MEDS: traZODone HCL 50 MG TABLET PO (22:14)
[2021-12-14] MEDS: Acetaminophen 325 MG TABLET 650 MG PO ×2 (04:47→18:39)
[2021-12-14 08:28] VITALS: BP 135/77; PULSE 85; RESP 17; TEMP 36.2; O2SAT 97
[2021-12-14] MEDS: metFORMIN HCl ER 500 MG TAB.ER.24H 1000 MG PO ×2 (08:29→20:31)
[2021-12-14] MEDS: Valsartan 160 MG TABLET PO (08:29)
[2021-12-14] MEDS: buPROPion HCl XL 150 MG TAB.ER.24H PO (08:29)
[2021-12-14] MEDS: buPROPion HCl XL 300 MG TAB.ER.24H PO (08:29)
[2021-12-14] MEDS: SITagliptin Phosphate 50 MG TABLET PO (08:29)
--- NOTE | 2021-12-14 11:30 | HO.PSYCHPN ---
Subjective Subjective Date of Service: 12/14/21 Reason For Visit: SI Interim History: pt reports ongoing SI, mildly improved from admission but still feeling dangerous if outside the hospital. states he slept OK until 0500, interested in increase in elavil dosing to 50 mg at bedtime. also would like hydroxyzine PRNs during the day. requests executed. per staff, anx/dep, visible, flat. safe here, but not if DCed. slept overnight aside from being up x1. Mental Status Exam Mental Status Exam Narrative: calm cooperative. appropriately dressed and groomed, no PMA/PMR. speech nml in rate, amount, loudness, tone, latency. thoughts linear and logical. affect constricted, consistent with context, normo-intense, non-labile. mood depressed. SI less but still a dangerous level, no plan or intent in the hospital. no HI/AVH expressed. Diagnostics Vital Signs (24Hr): Vital Signs - 24 hr 12/13/21 22:11 12/14/21 08:28 Temperature 96.0 F L 97.2 F Pulse Rate 94 85 Respiratory Rate 18 17 Blood Pressure 179/87 H 135/77 Pulse Oximetry 96 97 BMI result Body Mass Index 29.6 Labs Results: 12/08/21 22:46 12/08/21 22:46 Labs: Laboratory Results - last 48 hr 12/12/21 12/13/21 09:27 09:04 POC Glucose 231 H Vitamin B12 508 Folate 10.8 Medications Medications Current Medications Acetaminophen (Acetaminophen 325 Mg Tablet) 650 mg PO Q6H PRN PRN Reason: Headache/Pain Mild Scale (1-3) Last Admin: 12/14/21 04:47 Dose: 650 mg Documented by: Al Hydroxide/Mg Hydroxide (Magnesium Hydrox/Alum Hydrox 30 Ml Oral.Susp) 30 ml PO Q6H PRN PRN Reason: Heartburn/Nausea Amitriptyline HCl (Amitriptyline Hcl 50 Mg Tablet) 50 mg PO BEDTIME [facility] Bupropion HCl (Bupropion Hcl Xl 150 Mg Tab.Er.24h) 150 mg PO DAILY [facility] Last Admin: 12/14/21 08:29 Dose: 150 mg Documented by: Bupropion HCl (Bupropion Hcl Xl 300 Mg Tab.Er.24h) 300 mg PO DAILY [facility] Last Admin: 12/14/21 08:29 Dose: 300 mg Documented by: Hydroxyzine HCl (Hydroxyzine Hcl 25 Mg Tablet) 25 mg PO ONCE PRN PRN Reason: anxiety Hydroxyzine HCl (Hydroxyzine Hcl 25 Mg Tablet) 25 mg PO Q4H PRN PRN Reason: Anxiety Magnesium Hydroxide (Milk Of Magnesia 30 Ml Oral.Susp) 30 ml PO DAILY PRN PRN Reason: Constipation Meclizine HCl (Meclizine Hcl 12.5 Mg Tablet) 12.5 mg PO TID PRN PRN Reason: dizziness Last Admin: 12/13/21 22:14 Dose: 12.5 mg Documented by: Metformin HCl (Metformin Hcl Er 500 Mg Tab.Er.24h) 1,000 mg PO BID [facility] Last Admin: 12/14/21 08:29 Dose: 1,000 mg Documented by: Naproxen (Naproxen 500 Mg Tablet) 500 mg PO BID PRN PRN Reason: pain Last Admin: 12/13/21 22:15 Dose: 500 mg Documented by: Sitagliptin Phosphate (Sitagliptin Phosphate 50 Mg Tablet) 50 mg PO DAILY [facility] Last Admin: 12/14/21 08:29 Dose: 50 mg Documented by: Trazodone HCl (Trazodone Hcl 50 Mg Tablet) 50 mg PO BEDTIME [facility] Last Admin: 12/13/21 22:14 Dose: 50 mg Documented by: Trazodone HCl (Trazodone Hcl 50 Mg Tablet) 50 mg PO BEDTIME PRN PRN Reason: insomnia Valsartan (Valsartan 160 Mg Tablet) 160 mg PO DAILY [facility]; Protocol Last Admin: 12/14/21 08:29 Dose: 160 mg Documented by: Allergies Allergies Allergy/AdvReac Type Severity Reaction Status Date / Time codeine [CODEINE] Allergy Unknown delayed Verified 12/08/21 22:11 responses 02/24/17 Assessment & Plan Assessment & Plan (1) Depression: Status: Acute Code(s): F32.A - Depression, unspecified (2) Urinary tract infection: Status: Acute Code(s): N39.0 - Urinary tract infection, site not specified (3) Dizziness: Status: Acute Code(s): R42 - Dizziness and giddiness (4) Suicidal ideation: Status: Acute Code(s): R45.851 - Suicidal ideations Plan at admission 12/12 continued home meds aside from abilify, which patient reports he had been in the midst of tapering with his outpatient provider. he states he had only been taking 2 mg daily prior to admission and was informed the medication could safely be stopped at this point. neuro consult placed 12/12 for dizziness/vertigo, cognitive changes, as pt reports he has not been seen by a neurologist since his concussion. customer support consultant recommended to minimize meclizine, add elavil at HS, and F/U outpt. elavil 25 mg QHS added 12/13. remains suicidal. elavil increased to 50 mg QHS as of 12/14, hydroxyzine PRNs for anxiety throughout the day added 12/14. remains suicidal, but less so than yesterday. I spent ___25___ minutes with the patient and/or on the patient floor today, greater than?50% of which was spent counseling/coordinating care. Reason for contiued inpatient stay Substantial Risk for: harm to self and inability to function
[2021-12-14] MEDS: Amitriptyline HCl 50 MG TABLET PO (20:31)
[2021-12-14 20:40] VITALS: BP 171/78; PULSE 98; TEMP 36.2; O2SAT 96
[2021-12-14 20:54] LABS: Glucose, Whole Blood 344 mg/dL (60-115)
[2021-12-14] MEDS: traZODone HCL 50 MG TABLET PO (22:54)
[2021-12-14] MEDS: NaPROXEN 500 MG TABLET PO (22:58)
[2021-12-15] MEDS: traZODone HCL 50 MG TABLET PO ×3 (02:11→22:02)
[2021-12-15] MEDS: buPROPion HCl XL 150 MG TAB.ER.24H PO (08:56)
[2021-12-15] MEDS: metFORMIN HCl ER 500 MG TAB.ER.24H 1000 MG PO ×2 (08:56→22:01)
[2021-12-15] MEDS: Acetaminophen 325 MG TABLET 650 MG PO (08:56)
[2021-12-15] MEDS: SITagliptin Phosphate 50 MG TABLET PO (08:57)
[2021-12-15] MEDS: Valsartan 160 MG TABLET PO (08:57)
[2021-12-15] MEDS: buPROPion HCl XL 300 MG TAB.ER.24H PO (08:57)
--- NOTE | 2021-12-15 08:58 | HO.PSYCHPN ---
Subjective Subjective Date of Service: 12/15/21 Reason For Visit: SI Subjective Notes: Conditional Voluntary Healthcare Proxy: No Guardianship: No Medical Problems Affecting Mental Status: No Interim History: Patient was seen and discussed in rounds today. Records and plans were reviewed. He continues to be mostly isolative. He at times complains of racing thoughts. He does have some ongoing suicidal ideations but feels safe on the unit. Eating and sleeping adequately. No complaints or side effects. He is trying to come up with ways of distracting cell. No changes were made Medication Compliance: Yes Side effects from medications: No Review of Systems Review of Systems Yes all other systems are reviewed and are negative Mental Status Exam Mental Status Exam Narrative: In today's visit he is alert, oriented and pleasant. Normal speech. Moderate eye contact. Appropriate affect. No signs of psychosis. He does have some suicidal ideations but denies any plans or intent. No HI. Cognitively is intact. Judgment is intact Diagnostics Vital Signs (24Hr): Vital Signs - 24 hr 12/14/21 20:40 Temperature 97.2 F Pulse Rate 98 Blood Pressure 171/78 H Pulse Oximetry 96 BMI result Body Mass Index 29.6 Labs Results: 12/08/21 22:46 12/08/21 22:46 Labs: Laboratory Results - last 48 hr 12/13/21 12/14/21 09:04 20:50 POC Glucose 231 H 344 H Medications Medications Current Medications Acetaminophen (Acetaminophen 325 Mg Tablet) 650 mg PO Q6H PRN PRN Reason: Headache/Pain Mild Scale (1-3) Last Admin: 12/14/21 18:39 Dose: 650 mg Documented by: Al Hydroxide/Mg Hydroxide (Magnesium Hydrox/Alum Hydrox 30 Ml Oral.Susp) 30 ml PO Q6H PRN PRN Reason: Heartburn/Nausea Amitriptyline HCl (Amitriptyline Hcl 50 Mg Tablet) 50 mg PO BEDTIME [facility] Last Admin: 12/14/21 20:31 Dose: 50 mg Documented by: Bupropion HCl (Bupropion Hcl Xl 150 Mg Tab.Er.24h) 150 mg PO DAILY [facility] Last Admin: 12/14/21 08:29 Dose: 150 mg Documented by: Bupropion HCl (Bupropion Hcl Xl 300 Mg Tab.Er.24h) 300 mg PO DAILY [facility] Last Admin: 12/14/21 08:29 Dose: 300 mg Documented by: Hydroxyzine HCl (Hydroxyzine Hcl 25 Mg Tablet) 25 mg PO ONCE PRN PRN Reason: anxiety Hydroxyzine HCl (Hydroxyzine Hcl 25 Mg Tablet) 25 mg PO Q4H PRN PRN Reason: Anxiety Magnesium Hydroxide (Milk Of Magnesia 30 Ml Oral.Susp) 30 ml PO DAILY PRN PRN Reason: Constipation Meclizine HCl (Meclizine Hcl 12.5 Mg Tablet) 12.5 mg PO TID PRN PRN Reason: dizziness Last Admin: 12/13/21 22:14 Dose: 12.5 mg Documented by: Metformin HCl (Metformin Hcl Er 500 Mg Tab.Er.24h) 1,000 mg PO BID [facility] Last Admin: 12/14/21 20:31 Dose: 1,000 mg Documented by: Naproxen (Naproxen 500 Mg Tablet) 500 mg PO BID PRN PRN Reason: pain Last Admin: 12/14/21 22:58 Dose: 500 mg Documented by: Sitagliptin Phosphate (Sitagliptin Phosphate 50 Mg Tablet) 50 mg PO DAILY [facility] Last Admin: 12/14/21 08:29 Dose: 50 mg Documented by: Trazodone HCl (Trazodone Hcl 50 Mg Tablet) 50 mg PO BEDTIME [facility] Last Admin: 12/14/21 22:54 Dose: 50 mg Documented by: Trazodone HCl (Trazodone Hcl 50 Mg Tablet) 50 mg PO BEDTIME PRN PRN Reason: insomnia Last Admin: 12/15/21 02:11 Dose: 50 mg Documented by: Valsartan (Valsartan 160 Mg Tablet) 160 mg PO DAILY [facility]; Protocol Last Admin: 12/14/21 08:29 Dose: 160 mg Documented by: Allergies Allergies Allergy/AdvReac Type Severity Reaction Status Date / Time codeine [CODEINE] Allergy Unknown delayed Verified 12/08/21 22:11 responses 02/24/17 Assessment & Plan Assessment & Plan (1) Depression: Status: Acute Code(s): F32.A - Depression, unspecified (2) Urinary tract infection: Status: Acute Code(s): N39.0 - Urinary tract infection, site not specified (3) Dizziness: Status: Acute Code(s): R42 - Dizziness and giddiness (4) Suicidal ideation: Status: Acute Code(s): R45.851 - Suicidal ideations Plan at admission 12/12 continued home meds aside from abilify, which patient reports he had been in the midst of tapering with his outpatient provider. he states he had only been taking 2 mg daily prior to admission and was informed the medication could safely be stopped at this point. neuro consult placed 12/12 for dizziness/vertigo, cognitive changes, as pt reports he has not been seen by a neurologist since his concussion. environmental consultant recommended to minimize meclizine, add elavil at HS, and F/U outpt. elavil 25 mg QHS added 12/13. remains suicidal. elavil increased to 50 mg QHS as of 12/14, hydroxyzine PRNs for anxiety throughout the day added 12/14. remains suicidal, but less so than yesterday. 12/15/2021: Continue current regimen and plans I spent minutes with the patient and/or on the patient floor today, greater than?50% of which was spent counseling/coordinating care. Reason for contiued inpatient stay Substantial Risk for: harm to self
[2021-12-15 09:04] VITALS: BP 132/76; PULSE 84; RESP 16; TEMP 36.3; O2SAT 98
[2021-12-15 09:06] LABS: Glucose, Whole Blood 191 mg/dL (60-115)
[2021-12-15 09:10] LABS: Creatinine Clr Calc Pharmacy 94.6; Estimated Glomerular Filt Rate > 60
[2021-12-15 20:24] LABS: Glucose, Whole Blood 319 mg/dL (60-115)
[2021-12-15 21:29] VITALS: BP 142/82; PULSE 101; TEMP 36.3; O2SAT 96
[2021-12-15] MEDS: Amitriptyline HCl 50 MG TABLET PO (22:01)
[2021-12-16 08:39] LABS: Glucose, Whole Blood 244 mg/dL (60-115)
[2021-12-16] MEDS: Valsartan 160 MG TABLET PO (08:55)
[2021-12-16] MEDS: buPROPion HCl XL 150 MG TAB.ER.24H PO (08:55)
[2021-12-16] MEDS: metFORMIN HCl ER 500 MG TAB.ER.24H 1000 MG PO ×2 (08:55→22:00)
[2021-12-16] MEDS: buPROPion HCl XL 300 MG TAB.ER.24H PO (08:55)
[2021-12-16] MEDS: SITagliptin Phosphate 50 MG TABLET PO (08:55)
[2021-12-16 08:58] VITALS: BP 134/70; PULSE 83; RESP 17; TEMP 36.4; O2SAT 98
--- NOTE | 2021-12-16 09:54 | HO.PSYCHPN ---
Subjective Subjective Date of Service: 12/16/21 Reason For Visit: SI Subjective Notes: Conditional Voluntary and 3 Day Interim History: Patient was seen and discussed in rounds today. Records and plans were reviewed. He continues to be flat with difficulty accessing, feelings and states that he generally feels ?numb?. He has been eating adequately but sleeping has been problematic but last night he slept better after the 2nd dose of trazodone. I will increase it to 100 mg. He is also having his bring in his Trulicity which she has not been on and his blood sugars have been on the high side at times. The highest yesterday was 319. No other complaints Review of Systems Review of Systems Yes all other systems are reviewed and are negative Mental Status Exam Mental Status Exam Narrative: In today's visit he is alert, oriented and pleasant. Normal speech. Moderate eye contact. Appropriate affect. No signs of psychosis. He does have some suicidal ideations but denies any plans or intent. No HI. Cognitively is intact. Judgment is intact Diagnostics Vital Signs (24Hr): Vital Signs - 24 hr 12/15/21 21:29 12/16/21 08:58 Temperature 97.3 F 97.6 F Pulse Rate 101 H 83 Respiratory Rate 17 Blood Pressure 142/82 H 134/70 Pulse Oximetry 96 98 BMI result Body Mass Index 29.6 Labs Results: 12/08/21 22:46 12/15/21 08:44 Labs: Laboratory Results - last 48 hr 12/14/21 12/15/21 12/15/21 20:50 08:44 09:02 Creatinine 0.93 Estim Creat Clear Calc 94.6 Estimated GFR > 60 POC Glucose 344 H 191 H 12/15/21 12/16/21 20:03 08:35 Creatinine Estim Creat Clear Calc Estimated GFR POC Glucose 319 H 244 H Medications Medications Current Medications Acetaminophen (Acetaminophen 325 Mg Tablet) 650 mg PO Q6H PRN PRN Reason: Headache/Pain Mild Scale (1-3) Last Admin: 12/15/21 08:56 Dose: 650 mg Documented by: Al Hydroxide/Mg Hydroxide (Magnesium Hydrox/Alum Hydrox 30 Ml Oral.Susp) 30 ml PO Q6H PRN PRN Reason: Heartburn/Nausea Amitriptyline HCl (Amitriptyline Hcl 50 Mg Tablet) 50 mg PO BEDTIME [facility] Last Admin: 12/15/21 22:01 Dose: 50 mg Documented by: Bupropion HCl (Bupropion Hcl Xl 150 Mg Tab.Er.24h) 150 mg PO DAILY [facility] Last Admin: 12/16/21 08:55 Dose: 150 mg Documented by: Bupropion HCl (Bupropion Hcl Xl 300 Mg Tab.Er.24h) 300 mg PO DAILY [facility] Last Admin: 12/16/21 08:55 Dose: 300 mg Documented by: Hydroxyzine HCl (Hydroxyzine Hcl 25 Mg Tablet) 25 mg PO ONCE PRN PRN Reason: anxiety Hydroxyzine HCl (Hydroxyzine Hcl 25 Mg Tablet) 25 mg PO Q4H PRN PRN Reason: Anxiety Magnesium Hydroxide (Milk Of Magnesia 30 Ml Oral.Susp) 30 ml PO DAILY PRN PRN Reason: Constipation Meclizine HCl (Meclizine Hcl 12.5 Mg Tablet) 12.5 mg PO TID PRN PRN Reason: dizziness Last Admin: 12/13/21 22:14 Dose: 12.5 mg Documented by: Metformin HCl (Metformin Hcl Er 500 Mg Tab.Er.24h) 1,000 mg PO BID [facility] Last Admin: 12/16/21 08:55 Dose: 1,000 mg Documented by: Naproxen (Naproxen 500 Mg Tablet) 500 mg PO BID PRN PRN Reason: pain Last Admin: 12/14/21 22:58 Dose: 500 mg Documented by: Sitagliptin Phosphate (Sitagliptin Phosphate 50 Mg Tablet) 50 mg PO DAILY [facility] Last Admin: 12/16/21 08:55 Dose: 50 mg Documented by: Trazodone HCl (Trazodone Hcl 50 Mg Tablet) 50 mg PO BEDTIME [facility] Last Admin: 12/15/21 22:01 Dose: 50 mg Documented by: Trazodone HCl (Trazodone Hcl 50 Mg Tablet) 50 mg PO BEDTIME PRN PRN Reason: insomnia Last Admin: 12/15/21 22:02 Dose: 50 mg Documented by: Valsartan (Valsartan 160 Mg Tablet) 160 mg PO DAILY [facility]; Protocol Last Admin: 12/16/21 08:55 Dose: 160 mg Documented by: Allergies Allergies Allergy/AdvReac Type Severity Reaction Status Date / Time codeine [CODEINE] Allergy Unknown delayed Verified 12/08/21 22:11 responses 02/24/17 Assessment & Plan Assessment & Plan (1) Depression: Status: Acute Code(s): F32.A - Depression, unspecified (2) Urinary tract infection: Status: Acute Code(s): N39.0 - Urinary tract infection, site not specified (3) Dizziness: Status: Acute Code(s): R42 - Dizziness and giddiness (4) Suicidal ideation: Status: Acute Code(s): R45.851 - Suicidal ideations Plan at admission 12/12 continued home meds aside from abilify, which patient reports he had been in the midst of tapering with his outpatient provider. he states he had only been taking 2 mg daily prior to admission and was informed the medication could safely be stopped at this point. neuro consult placed 12/12 for dizziness/vertigo, cognitive changes, as pt reports he has not been seen by a neurologist since his concussion. human resource consultant recommended to minimize meclizine, add elavil at HS, and F/U outpt. elavil 25 mg QHS added 12/13. remains suicidal. elavil increased to 50 mg QHS as of 12/14, hydroxyzine PRNs for anxiety throughout the day added 12/14. remains suicidal, but less so than yesterday. 12/15/2021: Continue current regimen and plans 12/16: Continue current regimen and plans with increase of trazodone to 100 mg q.h.s. I spent minutes with the patient and/or on the patient floor today, greater than?50% of which was spent counseling/coordinating care. Patient educated on: medication risk/benefits Reason for contiued inpatient stay Substantial Risk for: other
[2021-12-16] MEDS: Acetaminophen 325 MG TABLET 650 MG PO (10:12)
--- NOTE | 2021-12-16 18:35 | PM.EVENT ---
Event Note Date of Service: 12/16/21 Event Note: On-Call: Pt takes weekly Trulicity which is [place] [facility] [place]. Pt's brought his supply in for use. This was sent to pharmacy for verification. Eleazar Scott from [facility] is unable to verify this medication per pharmacy and therapeutics as they have no way to verify cold-chain storage (they have no way to verify if the medicine was subjected to high temperature excursions). Eleazar states possibly sliding scale and Lantus protocol. Eleazar has stored pts supply in the pharmacy refrigerator. As a result, will ask for hospitalist consult for ongoing medical treatment planning.
[2021-12-16 21:13] LABS: Glucose, Whole Blood 389 mg/dL (60-115)
[2021-12-16 21:50] VITALS: BP 163/88; PULSE 91; RESP 18; TEMP 35.8; O2SAT 94
[2021-12-16] MEDS: traZODone HCL 100 MG TABLET PO (22:00)
[2021-12-16] MEDS: Amitriptyline HCl 50 MG TABLET PO (22:00)
[2021-12-17 08:24] VITALS: BP 137/78; PULSE 86; RESP 17; TEMP 36.4; O2SAT 99
[2021-12-17 08:24] LABS: Glucose, Whole Blood 167 mg/dL (60-115)
[2021-12-17] MEDS: SITagliptin Phosphate 50 MG TABLET PO (08:40)
[2021-12-17] MEDS: Acetaminophen 325 MG TABLET 650 MG PO ×2 (08:41→17:13)
[2021-12-17] MEDS: Valsartan 160 MG TABLET PO (08:41)
[2021-12-17] MEDS: metFORMIN HCl ER 500 MG TAB.ER.24H 1000 MG PO ×2 (08:42→23:05)
[2021-12-17] MEDS: buPROPion HCl XL 150 MG TAB.ER.24H PO (08:42)
[2021-12-17] MEDS: buPROPion HCl XL 300 MG TAB.ER.24H PO (08:42)
--- NOTE | 2021-12-17 10:46 | P.PNPSI_ITS ---
Subjective Subjective Date of Service: 12/17/21 Reason For Visit: SI Interim History: found lying in bed, easily arousable. amenable to coming to interview room for discussion. states he had a somewhat difficult w/e, continues to have SI, feeling safe here but concerned if he left the hospital he would quickly become triggered and could possibly end up hurting himself. most of discussion about elavil, FROST, and sleep. basically, HAs have not changed and sleep has improved. however, he is experiencing sore throat, dry mouth, and tremor, which he believes has to do with the elavil. trazodone dosing also increased over the weekend, sleeping a bit better than prior. will decrease dose of elavil to 40 and see how things progress with plan to DC elavil if HAs don't improve and use trazodone alone for insomnia. also upset trulicity his brought in cannot be given here, describes it as the most important issue for him today; MD indicates he will review the situation with pharmacy. per staff, c/o 02/20 anx/dep. +SI, no plan. flat, social. sleeping well, appetite OK. slept from 1130 on last night. c/o sore throat, dry mouth, tremors in right arm, which he blames on elavil. Mental Status Exam Mental Status Exam Narrative: calm cooperative. appropriately dressed and groomed, no PMA/PMR. speech nml in rate, amount, loudness, tone, latency. thoughts linear and logical. affect constricted, consistent with context, normo-intense, non-labile. mood depressed. +SI, no plan or intent in the hospital. no HI/AVH expressed. Diagnostics Vital Signs (24Hr): Vital Signs - 24 hr 12/16/21 21:50 12/17/21 08:24 Temperature 96.4 F L 97.6 F Pulse Rate 91 86 Respiratory Rate 18 17 Blood Pressure 163/88 H 137/78 Pulse Oximetry 94 99 BMI result Body Mass Index 29.6 Labs Results: 12/08/21 22:46 12/15/21 08:44 Labs: Laboratory Results - last 48 hr 12/15/21 12/16/21 12/16/21 20:03 08:35 21:07 POC Glucose 319 H 244 H 389 H* 12/17/21 08:20 POC Glucose 167 H Medications Medications Current Medications Acetaminophen (Acetaminophen 325 Mg Tablet) 650 mg PO Q6H PRN PRN Reason: Headache/Pain Mild Scale (1-3) Last Admin: 12/17/21 08:41 Dose: 650 mg Documented by: Al Hydroxide/Mg Hydroxide (Magnesium Hydrox/Alum Hydrox 30 Ml Oral.Susp) 30 ml PO Q6H PRN PRN Reason: Heartburn/Nausea Amitriptyline HCl (Amitriptyline Hcl 10 Mg Tablet) 40 mg PO BEDTIME [facility] Bupropion HCl (Bupropion Hcl Xl 150 Mg Tab.Er.24h) 150 mg PO DAILY [facility] Last Admin: 12/17/21 08:42 Dose: 150 mg Documented by: Bupropion HCl (Bupropion Hcl Xl 300 Mg Tab.Er.24h) 300 mg PO DAILY [facility] Last Admin: 12/17/21 08:42 Dose: 300 mg Documented by: Dextrose (Dextrose 50 % 25 Gm/50 Ml Syringe) 25 gm IVPUSH Q15M PRN; Protocol PRN Reason: per Hypoglycemia Standing Ord. Glucose (Glucose Gel 15 Gm Gel..Gram.) 15 gm PO Q15M PRN; Protocol PRN Reason: per Hypoglycemia Standing Ord. Hydroxyzine HCl (Hydroxyzine Hcl 25 Mg Tablet) 25 mg PO ONCE PRN PRN Reason: anxiety Hydroxyzine HCl (Hydroxyzine Hcl 25 Mg Tablet) 25 mg PO Q4H PRN PRN Reason: Anxiety Insulin Human Lispro (Insulin Lispro 100 Unit/Ml 3 Ml Vial) 0 unit SUBCUT QIDACHS [facility]; Protocol Last Admin: 12/17/21 08:25 Dose: Not Given Documented by: Magnesium Hydroxide (Milk Of Magnesia 30 Ml Oral.Susp) 30 ml PO DAILY PRN PRN Reason: Constipation Meclizine HCl (Meclizine Hcl 12.5 Mg Tablet) 12.5 mg PO TID PRN PRN Reason: dizziness Last Admin: 12/13/21 22:14 Dose: 12.5 mg Documented by: Metformin HCl (Metformin Hcl Er 500 Mg Tab.Er.24h) 1,000 mg PO BID [facility] Last Admin: 12/17/21 08:42 Dose: 1,000 mg Documented by: Naproxen (Naproxen 500 Mg Tablet) 500 mg PO BID PRN PRN Reason: pain Last Admin: 12/14/21 22:58 Dose: 500 mg Documented by: Sitagliptin Phosphate (Sitagliptin Phosphate 50 Mg Tablet) 50 mg PO DAILY [facility] Last Admin: 12/17/21 08:40 Dose: 50 mg Documented by: Trazodone HCl (Trazodone Hcl 50 Mg Tablet) 50 mg PO BEDTIME PRN PRN Reason: insomnia Last Admin: 12/15/21 22:02 Dose: 50 mg Documented by: Trazodone HCl (Trazodone Hcl 100 Mg Tablet) 100 mg PO BEDTIME [facility] Last Admin: 12/16/21 22:00 Dose: 100 mg Documented by: Valsartan (Valsartan 160 Mg Tablet) 160 mg PO DAILY [facility]; Protocol Last Admin: 12/17/21 08:41 Dose: 160 mg Documented by: Allergies Allergies Allergy/AdvReac Type Severity Reaction Status Date / Time codeine [CODEINE] Allergy Unknown delayed Verified 12/08/21 22:11 responses 02/24/17 Assessment & Plan Assessment & Plan (1) Depression: Status: Acute Code(s): F32.A - Depression, unspecified (2) Urinary tract infection: Status: Acute Code(s): N39.0 - Urinary tract infection, site not specified (3) Dizziness: Status: Acute Code(s): R42 - Dizziness and giddiness (4) Suicidal ideation: Status: Acute Code(s): R45.851 - Suicidal ideations Plan at admission 12/12 continued home meds aside from abilify, which patient reports he had been in the midst of tapering with his outpatient provider. he states he had only been taking 2 mg daily prior to admission and was informed the medication could safely be stopped at this point. neuro consult placed 12/12 for dizziness/vertigo, cognitive changes, as pt reports he has not been seen by a neurologist since his concussion. database consultant recommended to minimize meclizine, add elavil at HS, and F/U outpt. elavil 25 mg QHS added 12/13. remains suicidal. elavil increased to 50 mg QHS as of 12/14, hydroxyzine PRNs for anxiety throughout the day added 12/14. remains suicidal, but less so than yesterday. 12/15/2021: Continue current regimen and plans 12/16: Continue current regimen and plans with increase of trazodone to 100 mg q.h.s. 12/17: decr elavil to 40 mg due to s/e. discussion with pharmacy about trulicity. otherwise continue current mgmt. I spent ___35___ minutes with the patient and/or on the patient floor today, greater than?50% of which was spent counseling/coordinating care. Reason for contiued inpatient stay Substantial Risk for: harm to self, inability to function and rapid decompensation
[2021-12-17 13:09] LABS: Glucose, Whole Blood 242 mg/dL (60-115)
[2021-12-17 17:20] LABS: Glucose, Whole Blood 216 mg/dL (60-115)
[2021-12-17 20:48] VITALS: BP 172/95; PULSE 85; RESP 18; TEMP 36.1; O2SAT 99
[2021-12-17] MEDS: hydrOXYzine HCL 25 MG TABLET PO (20:51)
[2021-12-17] MEDS: traZODone HCL 100 MG TABLET PO (23:05)
[2021-12-17] MEDS: Amitriptyline HCl 10 MG TABLET 40 MG PO (23:05)
[2021-12-18 08:30] VITALS: BP 147/81; PULSE 78; RESP 16; TEMP 36.8; O2SAT 94
[2021-12-18 08:56] LABS: Glucose, Whole Blood 141 mg/dL (60-115)
[2021-12-18] MEDS: buPROPion HCl XL 150 MG TAB.ER.24H PO (09:06)
[2021-12-18] MEDS: Valsartan 160 MG TABLET PO (09:06)
[2021-12-18] MEDS: buPROPion HCl XL 300 MG TAB.ER.24H PO (09:06)
[2021-12-18] MEDS: SITagliptin Phosphate 50 MG TABLET PO (09:06)
[2021-12-18] MEDS: metFORMIN HCl ER 500 MG TAB.ER.24H 1000 MG PO ×2 (09:07→22:21)
[2021-12-18 12:58] LABS: Glucose, Whole Blood 229 mg/dL (60-115)
--- NOTE | 2021-12-18 14:15 | P.PNPSI_ITS ---
Subjective Subjective Date of Service: 12/18/21 Reason For Visit: SI Interim History: continues to feel some reticence to discharge, concerned about what he might do if he is triggered after discharge. MD advised him to plan to be triggered so as to be prepared with ways to cope when it happens, as it will. discussion had around 3-day notice maturing tomorrow. MD informs pt MD would not plan to file for commitment and would discharge pt tomorrow if he did not rescind his 3-day notice. long discussion held around elavil utility or lack thereof and side effects. ultimately, decision is made to DC elavil and request input from neuro for replacement for FROST prophylaxis. unclear if pt will be leaving tomorrow. per staff, c/o trouble swallowing, feeling dry and closing throat. FROST. no fever. FSBS 141. passive SI. slept well. med-compliant. Mental Status Exam Mental Status Exam Narrative: calm cooperative. appropriately dressed and groomed, no PMA/PMR. speech nml in rate, amount, loudness, tone, latency. thoughts linear and logical. affect constricted, consistent with context, normo-intense, non-labile. mood depressed. +SI, no plan or intent in the hospital. no HI/AVH expressed. Diagnostics Vital Signs (24Hr): Vital Signs - 24 hr 12/17/21 20:48 12/18/21 08:30 Temperature 96.9 F 98.2 F Pulse Rate 85 78 Respiratory Rate 18 16 Blood Pressure 172/95 H 147/81 H Pulse Oximetry 99 94 BMI result Body Mass Index 29.6 Labs Results: 12/08/21 22:46 12/15/21 08:44 Labs: Laboratory Results - last 48 hr 12/16/21 12/17/21 12/17/21 21:07 08:20 13:05 POC Glucose 389 H* 167 H 242 H 12/17/21 12/18/21 12/18/21 17:17 08:50 12:54 POC Glucose 216 H 141 H 229 H Medications Medications Current Medications Acetaminophen (Acetaminophen 325 Mg Tablet) 650 mg PO Q6H PRN PRN Reason: Headache/Pain Mild Scale (1-3) Last Admin: 12/17/21 17:13 Dose: 650 mg Documented by: Al Hydroxide/Mg Hydroxide (Magnesium Hydrox/Alum Hydrox 30 Ml Oral.Susp) 30 ml PO Q6H PRN PRN Reason: Heartburn/Nausea Bupropion HCl (Bupropion Hcl Xl 150 Mg Tab.Er.24h) 150 mg PO DAILY [facility] Last Admin: 12/18/21 09:06 Dose: 150 mg Documented by: Bupropion HCl (Bupropion Hcl Xl 300 Mg Tab.Er.24h) 300 mg PO DAILY [facility] Last Admin: 12/18/21 09:06 Dose: 300 mg Documented by: Dextrose (Dextrose 50 % 25 Gm/50 Ml Syringe) 25 gm IVPUSH Q15M PRN; Protocol PRN Reason: per Hypoglycemia Standing Ord. Glucose (Glucose Gel 15 Gm Gel..Gram.) 15 gm PO Q15M PRN; Protocol PRN Reason: per Hypoglycemia Standing Ord. Hydroxyzine HCl (Hydroxyzine Hcl 25 Mg Tablet) 25 mg PO ONCE PRN PRN Reason: anxiety Hydroxyzine HCl (Hydroxyzine Hcl 25 Mg Tablet) 25 mg PO Q4H PRN PRN Reason: Anxiety Last Admin: 12/17/21 20:51 Dose: 25 mg Documented by: Insulin Human Lispro (Insulin Lispro 100 Unit/Ml 3 Ml Vial) 0 unit SUBCUT QIDACHS [facility]; Protocol Last Admin: 12/18/21 12:58 Dose: Not Given Documented by: Magnesium Hydroxide (Milk Of Magnesia 30 Ml Oral.Susp) 30 ml PO DAILY PRN PRN Reason: Constipation Meclizine HCl (Meclizine Hcl 12.5 Mg Tablet) 12.5 mg PO TID PRN PRN Reason: dizziness Last Admin: 12/13/21 22:14 Dose: 12.5 mg Documented by: Metformin HCl (Metformin Hcl Er 500 Mg Tab.Er.24h) 1,000 mg PO BID [facility] Last Admin: 12/18/21 09:07 Dose: 1,000 mg Documented by: Naproxen (Naproxen 500 Mg Tablet) 500 mg PO BID PRN PRN Reason: pain Last Admin: 12/14/21 22:58 Dose: 500 mg Documented by: Patient Own Med ( Dulaglutide [ Trulicity] 1.5 Mg/0. 5 Ml Pen Injector) 1.5 mg SUBCUT LUCIA@0900 [facility] Last Admin: 12/17/21 14:18 Dose: 1.5 mg Documented by: Sitagliptin Phosphate (Sitagliptin Phosphate 50 Mg Tablet) 50 mg PO DAILY [facility] Last Admin: 12/18/21 09:06 Dose: 50 mg Documented by: Trazodone HCl (Trazodone Hcl 50 Mg Tablet) 50 mg PO BEDTIME PRN PRN Reason: insomnia Last Admin: 12/15/21 22:02 Dose: 50 mg Documented by: Trazodone HCl (Trazodone Hcl 50 Mg Tablet) 150 mg PO BEDTIME [facility] Valsartan (Valsartan 160 Mg Tablet) 160 mg PO DAILY [facility]; Protocol Last Admin: 12/18/21 09:06 Dose: 160 mg Documented by: Allergies Allergies Allergy/AdvReac Type Severity Reaction Status Date / Time codeine [CODEINE] Allergy Unknown delayed Verified 12/08/21 22:11 responses 02/24/17 Assessment & Plan Assessment & Plan (1) Depression: Status: Acute Code(s): F32.A - Depression, unspecified (2) Urinary tract infection: Status: Acute Code(s): N39.0 - Urinary tract infection, site not specified (3) Dizziness: Status: Acute Code(s): R42 - Dizziness and giddiness (4) Suicidal ideation: Status: Acute Code(s): R45.851 - Suicidal ideations Plan at admission 12/12 continued home meds aside from abilify, which patient reports he had been in the midst of tapering with his outpatient provider. he states he had only been taking 2 mg daily prior to admission and was informed the medication could safely be stopped at this point. neuro consult placed 12/12 for dizziness/vertigo, cognitive changes, as pt reports he has not been seen by a neurologist since his concussion. lead consultant recommended to minimize meclizine, add elavil at HS, and F/U outpt. elavil 25 mg QHS added 12/13. remains suicidal. elavil increased to 50 mg QHS as of 12/14, hydroxyzine PRNs for anxiety throughout the day added 12/14. remains suicidal, but less so than yesterday. 12/15/2021: Continue current regimen and plans 12/16: Continue current regimen and plans with increase of trazodone to 100 mg q.h.s. 12/17: decr elavil to 40 mg due to s/e. discussion with pharmacy about trulicity. otherwise continue current mgmt. 12/18: pt received trulicity yesterday. elavil DCed per pt request 2/2 s/e and lack of efficacy. will try topamax 25 mg QHS as of tonight per rec from neuro. possible pt will DC tomorrow. I spent __35____ minutes with the patient and/or on the patient floor today, greater than?50% of which was spent counseling/coordinating care. Reason for contiued inpatient stay Substantial Risk for: harm to self and inability to function
[2021-12-18 17:52] LABS: Glucose, Whole Blood 167 mg/dL (60-115)
[2021-12-18 20:10] VITALS: BP 108/65; PULSE 87; TEMP 36.7
[2021-12-18] MEDS: Topiramate 25 MG TABLET PO (22:22)
[2021-12-18] MEDS: traZODone HCL 50 MG TABLET 150 MG PO (22:22)
[2021-12-19] MEDS: traZODone HCL 50 MG TABLET PO (00:19)
[2021-12-19 08:07] LABS: Glucose, Whole Blood 147 mg/dL (60-115)
[2021-12-19 08:08] VITALS: BP 134/79; PULSE 91; RESP 16; TEMP 36.4; O2SAT 96
[2021-12-19] MEDS: metFORMIN HCl ER 500 MG TAB.ER.24H 1000 MG PO (08:11)
[2021-12-19] MEDS: buPROPion HCl XL 300 MG TAB.ER.24H PO (08:12)
[2021-12-19] MEDS: SITagliptin Phosphate 50 MG TABLET PO (08:12)
[2021-12-19] MEDS: Valsartan 160 MG TABLET PO (08:12)
[2021-12-19] MEDS: buPROPion HCl XL 150 MG TAB.ER.24H PO (08:12)
--- NOTE | 2021-12-19 10:54 | PM.PSYDC ---
DS: Providers Provider Date of Service: 12/19/21 Date of admission: 12/11/21 14:03 Primary care physician: Unknown Physician Consults: 12/12/21 13:15 Consult to Neurology Routine Consulting Provider: [facility] Reason for consultation: head trauma 09/30, always dizzy/vertigo. no neuro eval/recs yet. Has provider been notified: No DS: Diagnosis Discharge Diagnosis (1) Depression: Status: Acute (2) Urinary tract infection: Status: Acute (3) Dizziness: Status: Acute (4) Suicidal ideation: Status: Acute DS: Medications Discharge Medications Home Medications: Home Medications Medication Instructions Recorded Confirmed bupropion HCl 150 mg 24 hr tablet, 1 tab PO QAM 12/08/21 12/08/21 extended release bupropion HCl 300 mg 24 hr tablet, 1 tab PO DAILY 12/08/21 12/08/21 extended release meclizine 12.5 mg tablet 1 tab PO TID PRN dizziness 12/08/21 12/08/21 meloxicam 15 mg tablet 1 tab PO DAILY PRN pain 12/08/21 12/08/21 metformin 500 mg tablet,extended 2 tab PO BID 12/08/21 12/08/21 release 24 hr sitagliptin 50 mg tablet (Januvia) 1 tab PO DAILY 12/08/21 12/08/21 valsartan 160 mg tablet 1 tab PO DAILY 12/08/21 12/08/21 dulaglutide 1.5 mg/0.5 mL 1.5 mg subcut LUCIA@0900 12/17/21 12/17/21 subcutaneous pen injector (Trulicity) Previous Rx's Medication Instructions Recorded topiramate 25 mg tablet 25 mg PO BEDTIME 30 days #30 tabs 12/19/21 trazodone 50 mg tablet 150 mg PO BEDTIME 30 days #90 tabs 12/19/21 Mental Status Exam Mental Status Exam Narrative: calm cooperative. appropriately dressed and groomed, no PMA/PMR. speech nml in rate, amount, loudness, tone, latency. thoughts linear and logical. affect constricted, consistent with context, normo-intense, non-labile. mood depressed. concerned about being triggered once getting home, but no active SI at discharge. no HI/AVH. Data Data Completed and Pending Completed studies during hospitalization [Text1]: 12/12/21 12/12/21 12/13/21 09:27 09:27 09:04 Creatinine Estim Creat Clear Calc Estimated GFR POC Glucose 231 H Vitamin B12 508 Folate 10.8 TSH 1.41 Free T4 1.35 12/14/21 12/15/21 12/15/21 20:50 08:44 09:02 Creatinine 0.93 Estim Creat Clear Calc 94.6 Estimated GFR > 60 POC Glucose 344 H 191 H Vitamin B12 Folate TSH Free T4 12/15/21 12/16/21 12/16/21 20:03 08:35 21:07 Creatinine Estim Creat Clear Calc Estimated GFR POC Glucose 319 H 244 H 389 H* Vitamin B12 Folate TSH Free T4 12/17/21 12/17/21 12/17/21 08:20 13:05 17:17 Creatinine Estim Creat Clear Calc Estimated GFR POC Glucose 167 H 242 H 216 H Vitamin B12 Folate TSH Free T4 12/18/21 12/18/21 12/18/21 08:50 12:54 17:47 Creatinine Estim Creat Clear Calc Estimated GFR POC Glucose 141 H 229 H 167 H Vitamin B12 Folate TSH Free T4 12/19/21 08:04 Creatinine Estim Creat Clear Calc Estimated GFR POC Glucose 147 H Vitamin B12 Folate TSH Free T4 DS: Summary Hospital Course Hospital Course: per 12/12 admission note: pt with h/o depression with SI and h/o suicide attempt via overdose on 's medications a year ago c/o worsened depression and SI since September of 2021, when he sustained a concussion and developed chronic vertigo/dizziness and cognitive changes.? since the head injury he has been unable to drive or work, per his report.? on presentation to the ED he reported a plan of hanging himself by the neck until , having been experiencing SI for the 5 previous days.? on interview with MD, states this is not my first rodeo.? i know exactly what to say to not get section 12'ed. ? pt then states, on being asked his mood, that it is on the verge of dangerous. ? discuss med changes, and he feels his meds are well enough as they are, with the DC of ian which had been directed by his outpatient psych MD.? he would like to experience milieu therapy; MD encourages him to work on coping skills in group.? he endorses ongoing SI with no plan or intent on the unit.? he describes his mental health Hx and his course since sustaining a concussion in september of 2021.? he states he was never seen by a neurologist afterward and is amenable to evaluation by neuro here.? no other questions or concerns. Past Psychiatric History: psych hosps - about 6 prior, starting about 13 years ago SA - h/o 1 prior, via overdose, sometime in 2020.? he reports he was on prednisone, which he avers made him suicidal. reports h/o seasonal affective disorder Dx from [age] yo.? took meds in winter, can't recall what. reports he wet his bed until his early teens. 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 , lives with his and 2 of their 4 children (2 are adult children). Substance History: reports occasional drinking of alcoholic beverages. denies use of other substances. Trauma History: reports that an alarm used to wake him from his sleep if he wet the bed traumatized him. he denies any h/o childhood abuse. Precis: at admission 12/12 continued home meds aside from abilify, which patient reports he had been in the midst of tapering with his outpatient provider.? he states he had only been taking 2 mg daily prior to admission and was informed the medication could safely be stopped at this point. neuro consult placed 12/12 for dizziness/vertigo, cognitive changes, as pt reports he has not been seen by a neurologist since his concussion.? behavioral health consultant recommended to minimize meclizine, add elavil at HS, and F/U outpt. elavil 25 mg QHS added 12/13.? remains suicidal. elavil increased to 50 mg QHS as of 12/14, hydroxyzine PRNs for anxiety throughout the day added 12/14.? remains suicidal, but less so than yesterday. 12/15/2021: Continue current regimen and plans 12/16: Continue current regimen and plans with increase of trazodone to 100 mg q.h.s. 12/17: decr elavil to 40 mg due to s/e.? discussion with pharmacy about trulicity.? otherwise continue current mgmt. 12/18: pt received trulicity yesterday.? elavil DCed per pt request 2/2 s/e and lack of efficacy.? will try topamax 25 mg QHS as of tonight per rec from neuro.? possible pt will DC tomorrow. 12/19: pt discharged per his request. topamax was tolerated and he was discharged on it. aftercare in place. Time Spent with Patient Time attestation: Total time spent providing and/or coordinating discharge services: Time spent: Greater than 30 minutes Discharge Plan Discharge Patient Disposition: Home, Self-Care Discharge Diagnosis: Major Depressive Disorder, Recurrent, Moderate Referrals: Manpreet Tabares MD [Physician] - 1 Week (Provider would call pt for follow up appt ) Discharge Medications: New trazodone 50 mg Tablet 150 mg PO BEDTIME 30 Days Qty: 90 0RF topiramate 25 mg Tablet 25 mg PO BEDTIME 30 Days Qty: 30 0RF Continued Januvia 50 mg tablet 1 tab PO DAILY bupropion HCl 150 mg tablet extended release 24 hr 1 tab PO QAM bupropion HCl 300 mg tablet extended release 24 hr 1 tab PO DAILY meclizine 12.5 mg tablet 1 tab PO TID PRN (Reason: dizziness) meloxicam 15 mg tablet 1 tab PO DAILY PRN (Reason: pain) metformin 500 mg tablet extended release 24 hr 2 tab PO BID valsartan 160 mg tablet 1 tab PO DAILY Trulicity 1.5 mg/0.5 mL pen injector 1.5 mg subcut LUCIA@0900 Discontinued trazodone 50 mg tablet 0.5 tab PO BEDTIME PRN (Reason: insomnia) Discharge Orders: Discharge Order (Routine); Ordered 12/19/21 Ordered By: Sean Do Diet: advance to usual diet Activity on Discharge: As tolerated Stand Alone Forms: Patient Portal Discharge page, Community Support Care Plan Goals: remain safe and stable in the outpatient treatment setting Health Concerns: chronic headache sequelae from concussion Plan of Treatment: take medications as prescribed, attend appointments as scheduled Assessment: not at imminent risk of harm to self or others. despite SI, no plan or intent currently. help-seeking previously, encouraged to return as needed. Discharge Date/Time: 12/19/21 14:18
[2021-12-19 12:42] LABS: Glucose, Whole Blood 131 mg/dL (60-115)
--- NOTE | 2021-12-19 14:38 | PC.NURSE ---
Patient is alert and oriented x4. Patient is aware of discharge and in agreement with teachings. Patient reports that I am ready and need to get out of here . Patient reports that he plans to follow up with his psychiatrist and therapist. Patient denies physical complaints.
== END 2021-12-19 14:18 | disposition home or self-care (01) | DRG 751 ==
LOC: HO.ED 12-09 06:52 → HO.PADLT16 12-11 14:13
PROVIDERS: Physician Assistant Medical; Admitting Provider Psychiatry & Neurology Psychiatry; Emergency Provider Emergency Medicine Emergency Medical Services; Visit Provider Psychiatry & Neurology Psychiatry
DX: F33.1 Major depressive disorder, recurrent, moderate (principal); R45.851 Suicidal ideations; N39.0 Urinary tract infection, site not specified; Z91.51 Personal history of suicidal behavior; Z20.822 Contact with and (suspected) exposure to COVID-19; Z88.5 Allergy status to narcotic agent; Z79.84 Long term (current) use of oral hypoglycemic drugs; Z79.899 Other long term (current) drug therapy
CPT/HCPCS: 36415; 80048; 80061; 80076; 80143; 80179; 80307; 81001; 81003; 82077; 82565; 82607; 82746; 82947; 83036; 83735; 84439; 84443; 84484; 85025; 87635; 93005; 99284; 99285

== ENCOUNTER 2022-02-07 09:39 | Emergency (ER) | payer BC, SELFPAY ==
--- NOTE | ~2022-02-07 | XR_ITS ---
EXAMINATION: XR FOOT, LEFT CLINICAL INFORMATION: Lateral foot wound. Osteomyelitis? COMPARISON: None TECHNIQUE: 3 views of the left foot. FINDINGS: Peripheral vascular calcifications. Superficial soft tissue wound projects lateral to the base of the fifth metatarsal. No deep soft tissue gas or radiopaque foreign body in this area. The underlying metatarsal has normal density and shape. No erosions or periostitis. Enthesophytes at posterior and plantar surfaces of the calcaneus. XR/XR foot LT min 3V IMPRESSION: * Superficial wound noted lateral to the base of the fifth metatarsal. * No acute findings. No evidence of osteomyelitis within the left foot.
[2022-02-07 09:46] VITALS: BP 155/98; PULSE 102; RESP 18; TEMP 36.8; O2SAT 98; BMI 27.3
[2022-02-07 11:11] VITALS: BP 154/93; PULSE 89; RESP 20; O2SAT 97
--- NOTE | 2022-02-07 11:11 | ED.WOUNDLAC ---
HPI - Wound/Laceration General Chief Complaint: Wound/Laceration Stated Complaint: open wound l foot Time Seen by Provider: 02/07/22 10:55 Source: patient and RN notes reviewed Mode of arrival: ambulatory Limitations: no limitations History of Present Illness HPI narrative: This is a [id number]-male, with a past medical history of diabetes, with complaints of left foot wound x 2 weeks. Patient states that in September 2021, he tripped and fell, struck his head, and had a concussion and noticed a callous on his left foot at that time. He states that over the last 2 weeks, the callous came off, and became an open wound. He was seen by urgent care last , and was placed on an oral antibiotic, unsure of which one. He was taking the antibiotic as directed, but his symptoms were not improving. He was then switched to amoxicillin and another medication two days ago, which he has been taking as directed however he states that he has not had any pain relief and does not feel like his symptoms are improving. He denies any fevers or chills. Admits to having vomiting after taking the antibiotics. Denies any abdominal pain. Denies any new trauma or injury. Denies any other complaints or concerns at this time. Onset (ago): week(s) Extremity Location: left: foot Place: other Patient tetanus UTD: No Context: other Associated symptoms: pain Treatments prior to arrival: bandage Related Data Home Medications Medication Instructions Recorded Confirmed bupropion HCl 150 mg 24 hr tablet, 1 tab PO QAM 12/08/21 12/08/21 extended release bupropion HCl 300 mg 24 hr tablet, 1 tab PO DAILY 12/08/21 12/08/21 extended release meclizine 12.5 mg tablet 1 tab PO TID PRN dizziness 12/08/21 12/08/21 meloxicam 15 mg tablet 1 tab PO DAILY PRN pain 12/08/21 12/08/21 metformin 500 mg tablet,extended 2 tab PO BID 12/08/21 12/08/21 release 24 hr sitagliptin 50 mg tablet (Januvia) 1 tab PO DAILY 12/08/21 12/08/21 valsartan 160 mg tablet 1 tab PO DAILY 12/08/21 12/08/21 dulaglutide 1.5 mg/0.5 mL 1.5 mg subcut LUCIA@0900 12/17/21 12/17/21 subcutaneous pen injector (Trulicity) Previous Rx's Medication Instructions Recorded topiramate 25 mg tablet 25 mg PO BEDTIME 30 days #30 tabs 12/19/21 trazodone 50 mg tablet 150 mg PO BEDTIME 30 days #90 tabs 12/19/21 tramadol 50 mg tablet 50 mg PO Q8H PRN pain #14 tabs 02/07/22 Allergies Allergy/AdvReac Type Severity Reaction Status Date / Time codeine [CODEINE] Allergy Unknown delayed Verified 02/07/22 09:46 responses 02/24/17 Review of Systems Review of Systems: Constitutional : No Weight loss, No Fever, No Chills, No Night Sweats, No Fatigue, No Malaise ENT/Mouth : No Hearing loss, No Ear Pain, No Nasal Congestion, No Sinus Pain, No Hoarseness, No sore throat, No Rhinorrhea, No Swallowing Difficulty Eyes: No Eye Pain, No Swelling, No Redness, No Foreign Body, No Discharge, No Vision Changes Cardiovascular : No Chest Pain, No SOB, No Dyspnea on Exertion, No Orthopnea, No Edema, No Palpitations Respiratory : No Cough, No Sputum, No Wheezing, No Smoke Exposure, No Dyspnea Gastrointestinal : No Nausea, No Vomiting, No Diarrhea, No Constipation, No abdominal Pain, No Hematochezia, No Melena Genitourinary : no irregular bleeding, No Dysuria, No Urinary Frequency, No Hematuria, No Urinary Incontinence, No Urgency, No Flank Pain, No Urinary Flow Changes, No Hesitancy Musculoskeletal : +left foot pain, No joint pain, No Myalgias, No Joint Swelling Skin : +Skin Lesions, No rash Neuro : No Weakness, No Numbness, No Paresthesias, No Loss of Consciousness, No Dizziness, No Headache Psych : No Anxiety/Panic, No Depression, No SI/HI/AH/VH, No Social Issues, Heme/Lymph: No Bruising, No Bleeding,No Lymphadenopathy Endocrine : No Polyuria, No Polydipsia, No Temperature Intolerance Yes all other systems are reviewed and are negative [facility] Social History Social History Household Members: Spouse Housing: House Do you presently have visiting nurse or other home services: No Patient Tobacco Use Status: Never used Tobacco Advance Directives: No Advance Directives Information Provided: Yes service: No Sexual orientation: Straight/Heterosexual Physical Exam Vital Signs: Vital Signs: Last Vital Signs Temp 97.8 F 02/07/22 14:10 Pulse 75 02/07/22 14:10 Resp 18 02/07/22 14:10 BP 149/96 H 02/07/22 14:10 Pulse Ox 97 02/07/22 14:10 O2 Del Method 02/07/22 14:10 BMI result Body Mass Index 27.3 vital signs have been reviewed as normal and appeared to be correct. Blood pressure normal. Heart rate normal. Respiration rate normal. Temperature normal. Oxygen saturation normal. Appearance: Alert. Oriented X3. No acute distress. Head: Normal external exam. Normocephalic. Atraumatic. Eyes: PERRLA. EOMI. Conjunctiva and sclera normal. Eyelids normal. ENT: Pharynx normal. Uvula midline. Moist mucous membranes. No lesions/ulcerations or masses noted on the tongue. Normal voice. No trismus noted. No drooling noted. No muffled voice noted. Neck: Normal inspection. Neck supple. FROM. No adenopathy. Thyroid Normal. No tracheal deviation noted. No crepitus is noted. No meningeal signs. No neck mass noted. No signs of trauma noted. CVS: Normal heart rate and rhythm. Heart sound normal. Pulses normal throughout. No murmurs/rales/gallops. Respiratory: No respiratory distress. Painless inspiration. Breath sounds normal. No wheezes/rales/rhonchi noted. Chest nontender. No accessory muscle usage noted or decreased air movement noted. Abdomen: Soft and nontender. Bowel sounds normal in all 4 quadrants. No distention noted. No organomegaly noted. No visible injury noted. Back: No CVA tenderness. Full range of motion noted. Nontender. Skin: Skin warm and dry. Normal skin color. Normal skin turgor. Left dorsal foot, lateral aspect, there is a 2.5x 1.5cm central ulceration, with no drainage. Mild surrounding erythema, no warmth. DP pulses 2+ Extremities: No lower extremity edema. No calf tenderness is noted. Extremities exhibit normal range of motion and nontender. Neuro: Oriented X 3. No motor deficit. No sensory deficit. Reflexes normal. Normal steady gait. No focal neuro deficits noted. CN's II-XII intact bilaterally? Vascular: + radial pulses/+ 2 distal pedal pulses/+2 dorsalis pedis b/l. Normal cap refill. No cyanosis noted to upper extremity nails and lower extremity toes nails. Course Course Course Narrative: This is a [id number]-male, with a past medical history of diabetes, with complaints of left foot wound x 2 weeks. CBC, CMP, CRP, Lactic acid, ESR, A1C, magnesium, acetone, and blood cultures x 2 ordered. Blood pressure elevated at 155/98, and pulse 102. Patient is afrebrile. Reevaluation(s) Reevaluation #1: Foot x-ray reviewed as superficial wound, no evidence of osteomyelitis.Random glucose 358, negative acetone. CRP 1.29. Patient admits that he has not taken his metformin 1000mg today. 1L IV fluids ordered. Time: 13:40 Reevaluation #2: - repeat blood sugar 231. Therefore at this time will DC home with instructions to continue Augmentin and Flagyl will DC home with tramadol and instructions follow-up with wound clinic this week and to return if any new or worsening symptoms. Patient understands agrees with this plan. Time: 14:58 MDM - Wound/Laceration Medical Records Attestation: I reviewed the patient's medical records. Lab Data Attestation: I reviewed the patient's lab results. Result diagrams: 02/07/22 11:47 02/07/22 11:47 Labs: Lab Results 02/07/22 02/07/22 02/07/22 Range/Units 11:27 11:27 11:47 WBC 7.6 (4.8-10.8) X10*3/uL RBC 5.51 (4.60-5.80) X10*6/uL Hgb 15.7 (14.0-18.0) g/dl Hct 47.6 (42.0-52.0) % MCV 86.4 (80.0-98.0) fL MCH 28.5 (27.0-33.0) pg MCHC 33.0 (31.0-36.0) g/dl RDW 13.9 (11.0-16.0) % Plt Count 210 D (160-400) X10*3/uL MPV 9.7 (9.4-12.4) fL Immature Gran % (Auto) 0.4 (0.0-0.4) % Neut % (Auto) 73.6 H (45-73) % Lymph % (Auto) 18.7 L (20-40) % Garfield % (Auto) 6.6 (2-11) % Eos % (Auto) 0.4 (0-4) % Baso % (Auto) 0.3 (0-2) % Lymph # (Auto) 1.4 (1.2-4.9) X10*3/uL Garfield # (Auto) 0.5 (0.1-1.2) X10*3/uL Eos # (Auto) 0.0 (0.0-0.4) X10*3/uL Baso # (Auto) 0.0 (0.0-0.2) X10*3/uL Abs Immat Gran (auto) 0.03 (0.00-0.03) X10*3/uL Absolute Neuts (auto) 5.6 (2.0-8.3) x10*3/uL Absolute Nucleated RBC 0.000 (0.0-0.012) X10*3/uL Nucleated RBC % (auto) 0.0 (0.0-0.2) /100WBC ESR (0-15) MM/HR Sodium (135-145) mmol/L Potassium (3.3-5.1) mmol/L Chloride (96-108) mmol/L Carbon Dioxide (22-29) mmol/L Anion Gap (12-20) BUN (9-16) mg/dL Creatinine (0.5-1.4) mg/dL Estim Creat Clear Calc Estimated GFR POC Glucose (60-115) mg/dL Random Glucose (60-115) mg/dL Estimat Average Glucose 220 mg/dL Hemoglobin A1c % 9.3 % Lactic Acid 1.4 (0.5-2.0) mmol/L Calcium (8.4-10.2) mg/dL Magnesium (1.6-2.6) mg/dL Total Bilirubin (0.0-1.0) mg/dL AST (5-37) U/L ALT (0-40) U/L Alkaline Phosphatase (39-117) U/L C-Reactive Protein (< or = 0.50) mg/dL Total Protein (6.5-8.0) g/dL Albumin (3.5-5.0) g/dL Acetone, Qual (Negative) 02/07/22 02/07/22 02/07/22 Range/Units 11:47 11:47 12:43 WBC (4.8-10.8) X10*3/uL RBC (4.60-5.80) X10*6/uL Hgb (14.0-18.0) g/dl Hct (42.0-52.0) % MCV (80.0-98.0) fL MCH (27.0-33.0) pg MCHC (31.0-36.0) g/dl RDW (11.0-16.0) % Plt Count (160-400) X10*3/uL MPV (9.4-12.4) fL Immature Gran % (Auto) (0.0-0.4) % Neut % (Auto) (45-73) % Lymph % (Auto) (20-40) % Garfield % (Auto) (2-11) % Eos % (Auto) (0-4) % Baso % (Auto) (0-2) % Lymph # (Auto) (1.2-4.9) X10*3/uL Garfield # (Auto) (0.1-1.2) X10*3/uL Eos # (Auto) (0.0-0.4) X10*3/uL Baso # (Auto) (0.0-0.2) X10*3/uL Abs Immat Gran (auto) (0.00-0.03) X10*3/uL Absolute Neuts (auto) (2.0-8.3) x10*3/uL Absolute Nucleated RBC (0.0-0.012) X10*3/uL Nucleated RBC % (auto) (0.0-0.2) /100WBC ESR 13 (0-15) MM/HR Sodium 140 (135-145) mmol/L Potassium 4.8 (3.3-5.1) mmol/L Chloride 104 (96-108) mmol/L Carbon Dioxide 27 (22-29) mmol/L Anion Gap 14 (12-20) BUN 20 H (9-16) mg/dL Creatinine 1.11 (0.5-1.4) mg/dL Estim Creat Clear Calc 71.0 Estimated GFR > 60 POC Glucose (60-115) mg/dL Random Glucose 358 H* (60-115) mg/dL Estimat Average Glucose mg/dL Hemoglobin A1c % % Lactic Acid (0.5-2.0) mmol/L Calcium 9.6 (8.4-10.2) mg/dL Magnesium 2.1 (1.6-2.6) mg/dL Total Bilirubin 0.3 (0.0-1.0) mg/dL AST 21 (5-37) U/L ALT 29 (0-40) U/L Alkaline Phosphatase 100 D (39-117) U/L C-Reactive Protein 1.29 H (< or = 0.50) mg/dL Total Protein 6.9 (6.5-8.0) g/dL Albumin 4.1 (3.5-5.0) g/dL Acetone, Qual Negative (Negative) 02/07/22 02/07/22 Range/Units 13:48 14:52 WBC (4.8-10.8) X10*3/uL RBC (4.60-5.80) X10*6/uL Hgb (14.0-18.0) g/dl Hct (42.0-52.0) % MCV (80.0-98.0) fL MCH (27.0-33.0) pg MCHC (31.0-36.0) g/dl RDW (11.0-16.0) % Plt Count (160-400) X10*3/uL MPV (9.4-12.4) fL Immature Gran % (Auto) (0.0-0.4) % Neut % (Auto) (45-73) % Lymph % (Auto) (20-40) % Garfield % (Auto) (2-11) % Eos % (Auto) (0-4) % Baso % (Auto) (0-2) % Lymph # (Auto) (1.2-4.9) X10*3/uL Garfield # (Auto) (0.1-1.2) X10*3/uL Eos # (Auto) (0.0-0.4) X10*3/uL Baso # (Auto) (0.0-0.2) X10*3/uL Abs Immat Gran (auto) (0.00-0.03) X10*3/uL Absolute Neuts (auto) (2.0-8.3) x10*3/uL Absolute Nucleated RBC (0.0-0.012) X10*3/uL Nucleated RBC % (auto) (0.0-0.2) /100WBC ESR (0-15) MM/HR Sodium (135-145) mmol/L Potassium (3.3-5.1) mmol/L Chloride (96-108) mmol/L Carbon Dioxide (22-29) mmol/L Anion Gap (12-20) BUN (9-16) mg/dL Creatinine (0.5-1.4) mg/dL Estim Creat Clear Calc Estimated GFR POC Glucose 265 H 231 H (60-115) mg/dL Random Glucose (60-115) mg/dL Estimat Average Glucose mg/dL Hemoglobin A1c % % Lactic Acid (0.5-2.0) mmol/L Calcium (8.4-10.2) mg/dL Magnesium (1.6-2.6) mg/dL Total Bilirubin (0.0-1.0) mg/dL AST (5-37) U/L ALT (0-40) U/L Alkaline Phosphatase (39-117) U/L C-Reactive Protein (< or = 0.50) mg/dL Total Protein (6.5-8.0) g/dL Albumin (3.5-5.0) g/dL Acetone, Qual (Negative) Imaging Data Left foot x-ray : Attestation: I personally reviewed and interpreted this imaging study as follows: Radiologist's impression: EXAMINATION: XR FOOT, LEFT CLINICAL INFORMATION: Lateral foot wound. Osteomyelitis? COMPARISON: None? TECHNIQUE: 3 views of the left foot. FINDINGS: Peripheral vascular calcifications. Superficial soft tissue wound projects lateral to the base of the fifth metatarsal. No deep soft tissue gas or radiopaque foreign body in this area. The underlying metatarsal has normal density and shape. No erosions or periostitis. Enthesophytes at posterior and plantar surfaces of the calcaneus. XR/XR foot LT min 3V IMPRESSION: *? Superficial wound noted lateral to the base of the fifth metatarsal. *? No acute findings. No evidence of osteomyelitis within the left foot. Dictated By: Zach Aldana MD Critical Care Time Critical Care Time Critical Care Time: Yes Total Critical Care Time: 60 Attestation: I personally attest to this time spent taking care of the patient Discharge Plan Discharge Clinical Impression: Open wound of left foot, Acute hyperglycemia Patient Disposition: Home, Self-Care Prescriptions: New tramadol 50 mg tablet 50 mg PO Q8H PRN (Reason: pain) Qty: 14 0RF Rx Instructions: May partially fill upon patient request No Action Januvia 50 mg tablet 1 tab PO DAILY bupropion HCl 150 mg tablet extended release 24 hr 1 tab PO QAM bupropion HCl 300 mg tablet extended release 24 hr 1 tab PO DAILY meclizine 12.5 mg tablet 1 tab PO TID PRN (Reason: dizziness) meloxicam 15 mg tablet 1 tab PO DAILY PRN (Reason: pain) metformin 500 mg tablet extended release 24 hr 2 tab PO BID valsartan 160 mg tablet 1 tab PO DAILY Trulicity 1.5 mg/0.5 mL pen injector 1.5 mg subcut LUCIA@0900 trazodone 50 mg Tablet 150 mg PO BEDTIME 30 Days Qty: 90 0RF topiramate 25 mg Tablet 25 mg PO BEDTIME 30 Days Qty: 30 0RF Referrals: Manpreet Tabares MD [Primary Care Provider] - 2 days Georgette Reardon PA [Physician Practice Billing Associate] - 2 days (Call today to make a follow-up appointment this week)
[2022-02-07] MEDS: Ondansetron ODT 4 MG TAB.RAPDIS TRANSLINGU (11:40)
[2022-02-07 11:42] LABS: Estimated Average Glucose 220 mg/dL; Hemoglobin A1c % 9.3 %
[2022-02-07 11:45] LABS: Lactic Acid 1.4 mmol/L (0.5-2.0)
[2022-02-07] MEDS: traMADoL HCL 50 MG TABLET PO (11:51)
[2022-02-07] MEDS: Ibuprofen 800 MG TABLET PO (11:52)
[2022-02-07 11:54] LABS: Basophils Percent Auto 0.3 % (0-2); Eosinophils Percent Auto 0.4 % (0-4); Hematocrit 47.6 % (42.0-52.0); Hemoglobin 15.7 g/dl (14.0-18.0); Imm Gran Abs Auto 0.03 X10*3/uL (0.00-0.03); Imm Gran Pct Auto 0.4 % (0.0-0.4); Lymphocytes Absolute Auto 1.4 X10*3/uL (1.2-4.9); Lymphocytes Percent Auto 18.7 % (20-40); Mean Corpuscular Hemoglobin 28.5 pg (27.0-33.0); Mean Corpuscular Volume 86.4 fL (80.0-98.0); Monocytes Absolute Auto 0.5 X10*3/uL (0.1-1.2); Monocytes Percent Auto 6.6 % (2-11); Neutrophils Absolute Auto 5.6 x10*3/uL (2.0-8.3); Neutrophils Percent Auto 73.6 % (45-73); Red Blood Count 5.51 X10*6/uL (4.60-5.80); Red Cell Distribution Width 13.9 % (11.0-16.0); White Blood Count 7.6 X10*3/uL (4.8-10.8)
[2022-02-07 11:59] LABS: MANUAL DIFF FLAG NO
[2022-02-07 12:21] LABS: Alanine Aminotransferase 29 U/L (0-40); Albumin Level 4.1 g/dL (3.5-5.0); Alkaline Phosphatase 100 U/L (39-117); Anion Gap 14 (12-20); Aspartate Amino Transferase 21 U/L (5-37); Bilirubin Total 0.3 mg/dL (0.0-1.0); Blood Urea Nitrogen 20 mg/dL (9-16); C Reactive Protein 1.29 mg/dL (< or = 0.50); Calcium 9.6 mg/dL (8.4-10.2); Carbon Dioxide 27 mmol/L (22-29); Chloride 104 mmol/L (96-108); Estimated Glomerular Filt Rate > 60; Glucose Random 358 mg/dL (60-115); Magnesium 2.1 mg/dL (1.6-2.6); Potassium 4.8 mmol/L (3.3-5.1); Sodium 140 mmol/L (135-145); Total Protein 6.9 g/dL (6.5-8.0)
[2022-02-07 12:23] LABS: Platelet Count 210 X10*3/uL (160-400)
[2022-02-07 12:24] LABS: Mean Platelet Volume 9.7 fL (9.4-12.4)
[2022-02-07] MEDS: 0.9 % Sodium Chloride 1,000 ML 999 ML IVCONT ×2 (12:41→12:42)
[2022-02-07 12:48] LABS: Erythrocyte Sedimentation Rate 13 MM/HR (0-15)
[2022-02-07] MEDS: Diphth,Pertus(ACell),Tet Adult 0.5 ML SYRINGE IM (12:52)
[2022-02-07 12:59] LABS: Acetone, serum QL Negative (Negative)
[2022-02-07 13:51] LABS: Glucose, Whole Blood 265 mg/dL (60-115)
[2022-02-07 14:10] VITALS: BP 149/96; PULSE 75; RESP 18; TEMP 36.6; O2SAT 97
[2022-02-07 14:55] LABS: Glucose, Whole Blood 231 mg/dL (60-115)
== END 2022-02-07 15:11 | disposition home or self-care (01) ==
PROVIDERS: Physician Assistant Medical; Emergency Provider Student in an Organized Health Care Education/Training Program; PCP Family Medicine
DX: S91.302A Unspecified open wound, left foot, initial encounter (principal); S90.812A Abrasion, left foot, initial encounter; M79.672 Pain in left foot; R51.9 Headache, unspecified; E11.65 Type 2 diabetes mellitus with hyperglycemia; X58.XXXA Exposure to other specified factors, initial encounter; Y93.9 Activity, unspecified; Y92.9 Unspecified place or not applicable; Y99.9 Unspecified external cause status; Z79.899 Other long term (current) drug therapy; Z79.84 Long term (current) use of oral hypoglycemic drugs
CPT/HCPCS: 36415; 73630; 80053; 82009; 82947; 83036; 83605; 83735; 85025; 85652; 86140; 87040; 90471; 90715; 96360; 99283; 99284

== ENCOUNTER 2022-02-19 11:28 | Inpatient (IN) | payer BC, SELFPAY ==
--- NOTE | ~2022-02-19 | XR_ITS ---
EXAMINATION: XR RIBS, LEFT, CHEST PA CLINICAL INFORMATION: Left rib pain status post fall. COMPARISON: Chest radiograph dated 02/24/2017. TECHNIQUE: 3 views of the left ribs were obtained along with a PA view of the chest. A skin marker was placed overlying the inferior left ribs. FINDINGS: Lungs are clear. No consolidation, pneumothorax, or pleural effusion. The cardiomediastinal silhouette and pulmonary vasculature are normal. Osseous structures are unremarkable. Ribs are intact. No fractures are identified. XR/XR ribs LT min 3V w CXR1V IMPRESSION: Unremarkable examination.
--- NOTE | ~2022-02-19 | XR_ITS ---
EXAMINATION: XR CHEST CLINICAL INFORMATION: Chest pain COMPARISON: Previous chest x-ray February 2022 TECHNIQUE: Frontal view of the chest was obtained. FINDINGS: The cardiac and mediastinal contours are stable. The lungs are clear. There is no pleural effusion or pneumothorax. There are degenerative changes of the spine. XR/XR chest 1V IMPRESSION: No evidence for acute disease in the chest.
--- NOTE | ~2022-02-19 | NM_ITS ---
Lexiscan Myocardial perfusion study Indication: Chest pain, left bundle branch block, assess for coronary disease and ischemia Technique: The patient was brought in for a Lexiscan perfusion study on 03/04/2022 and was injected 0.4 mg of Lexiscan intravenously. Within a minute of this injection 30 mCi of sestamibi was given intravenously. Images were obtained using the SPECT gamma camera interlaced with the gating device. Images were obtained in supine position. Resting perfusion study was performed on 03/05/2022. Patient was administered 30 mCi of sestamibi intravenously at rest. Images were then obtained in supine position. Total DLP 99mGy-cm. Images were processed with the software and compared side to side in short axis, horizontal long axis and vertical long axis views. Findings: Raw acquisition reviewed. The stress perfusion study showed minimally decreased tracer uptake in the basal septum. There is some improvement with CT attenuation correction. The gated study shows diminished LV systolic function with calculated LVEF of 29%-visually appears higher than that. LV cavity is normal in size. The gated study shows normal wall thickening and contraction of segments. Resting study shows diminished tracer uptake along the septum more towards the base but otherwise unremarkable. Gating at rest reveals normal wall motion with ejection fraction at 48%. Visually, higher than that. The findings are consistent with no clear reversible or fixed perfusion defects of significance. NM/NM puneet perf SPECT rest & str Impression: 1. Myocardial perfusion imaging study shows likely normal myocardial perfusion. 2. Gated LVEF is 29% during stress, 48% during rest; visually appear higher. Correlate with echocardiogram. 3. Transient ischemic dilatation not present. EKG component of the test reported separately.
[2022-02-19 12:23] VITALS: BP 124/74; PULSE 92; RESP 18; TEMP 36.2; O2SAT 97; BMI 27.3
[2022-02-19 13:51] LABS: MANUAL DIFF FLAG NO
[2022-02-19 13:57] LABS: Basophils Percent Auto 0.3 % (0-2); Eosinophils Percent Auto 0.1 % (0-4); Hematocrit 48.2 % (42.0-52.0); Hemoglobin 15.5 g/dl (14.0-18.0); Imm Gran Abs Auto 0.07 X10*3/uL (0.00-0.03); Imm Gran Pct Auto 0.6 % (0.0-0.4); Mean Corpuscular HGB Conc 32.2 g/dl (31.0-36.0); Mean Corpuscular Hemoglobin 28.7 pg (27.0-33.0); Mean Corpuscular Volume 89.1 fL (80.0-98.0); Mean Platelet Volume 10.4 fL (9.4-12.4); Monocytes Absolute Auto 0.6 X10*3/uL (0.1-1.2); Monocytes Percent Auto 5.8 % (2-11); Neutrophils Absolute Auto 9.1 x10*3/uL (2.0-8.3); Neutrophils Percent Auto 84.2 % (45-73); Platelet Count 222 X10*3/uL (160-400); Red Blood Count 5.41 X10*6/uL (4.60-5.80); Red Cell Distribution Width 14.6 % (11.0-16.0); White Blood Count 10.8 X10*3/uL (4.8-10.8)
--- NOTE | 2022-02-19 13:58 | ED_ITS ---
HPI - Psych General Chief Complaint: Psychiatric Symptoms <Adwoa Oden NP - Last Filed: 02/19/22 17:21> Stated Complaint: SI <Adwoa Oden NP - Last Filed: 02/19/22 17:21> Time Seen by Provider: 02/19/22 12:32 <Adwoa Oden NP - Last Filed: 02/19/22 17:21> Source: patient <Adwoa Oden NP - Last Filed: 02/19/22 17:21> Mode of arrival: ambulatory <Adwoa Oden NP - Last Filed: 02/19/22 17:21> Limitations: no limitations <Adwoa Oden NP - Last Filed: 02/19/22 17:21> History of Present Illness HPI Narrative: 56-year-old male with a history of depression, diabetes who presents after an intentional overdose yesterday with reports of suicidal thoughts. Patient denies homicidal ideations, hallucinations, substance use. No physical complaints. Patient tells me that yesterday he took some medications as an intentional overdose of 03:00 o'clock in the morning. He does not know the name of the medication. He does not know how many pills he took. He tells me he took this and attempt to kill himself. <Adwoa Oden NP - Last Filed: 02/19/22 17:21> Related Data Home Medications: Home Medications Medication Instructions Recorded Confirmed bupropion HCl 150 mg 24 hr tablet, 1 tab PO DAILY 12/08/21 02/19/22 extended release bupropion HCl 300 mg 24 hr tablet, 1 tab PO DAILY 12/08/21 02/19/22 extended release metformin 500 mg tablet,extended 2 tab PO BID 12/08/21 02/19/22 release 24 hr sitagliptin 50 mg tablet (Januvia) 1 tab PO DAILY 12/08/21 02/19/22 dulaglutide 1.5 mg/0.5 mL 1.5 mg subcut LUCIA@0900 12/17/21 02/19/22 subcutaneous pen injector (Trulicity) valsartan 80 mg tablet 1 tab PO DAILY 02/19/22 02/19/22 <Adwoa Oden NP - Last Filed: 02/19/22 17:21> Allergies/Adverse Reactions: Allergies Allergy/AdvReac Type Severity Reaction Status Date / Time codeine [CODEINE] Allergy Unknown delayed Verified 02/07/22 09:46 responses 02/24/17 <Adwoa Oden NP - Last Filed: 02/19/22 17:21> Review of Systems Review of Systems: Yes all other systems are reviewed and are negative <Adwoa Oden NP - Last Filed: 02/19/22 17:21> Constitutional: Constitutional: Reports no additional constitutional complaints, Denies body ache(s), Denies chills, Denies fever(s), Denies headache(s) and Denies weakness <Adwoa Oden NP - Last Filed: 02/19/22 17:21> Eyes: Eyes: Reports no additional eye complaints and Denies change in vision <Adwoa Oden NP - Last Filed: 02/19/22 17:21> ENT: Reports system reviewed and no additional complaints, except as documented, Denies dizziness, Denies headache(s), Denies nasal congestion, Denies nasal discharge and Denies neck pain <Adwoa Oden NP - Last Filed: 02/19/22 17:21> Cardiovascular: Cardiovascular: Reports no additional cardiovascular complaints, Denies chest pain, Denies leg edema and Denies dyspnea <Adwoa Oden NP - Last Filed: 02/19/22 17:21> Respiratory: Respiratory: Reports no additional respiratory complaints, Denies cough and Denies dyspnea <Adwoa Oden NP - Last Filed: 02/19/22 17:21> Gastrointestinal: Gastrointestinal: Reports no additional gastrointestinal complaints, Denies abdominal pain, Denies diarrhea, Denies nausea and Denies vomiting <Adwoa Oden NP - Last Filed: 02/19/22 17:21> Genitourinary: Genitourinary: Denies urinary incontinence <Adwoa Oden NP - Last Filed: 02/19/22 17:21> Musculoskeletal: Musculoskeletal: Reports no additional musculoskeletal complaints, Denies back pain, Denies arthralgias, Denies joint swelling, Denies neck pain, Denies numbness and Denies tingling <Adwoa Oden NP - Last Filed: 02/19/22 17:21> Integumentary/Breasts: Skin/Breast: Reports system reviewed and no additional complaints, except as docu and Denies rash <Adwoa Oden NP - Last Filed: 02/19/22 17:21> Neurologic: Reports system reviewed and no additional complaints, except as documented, Denies Abnormal speech present, Denies dizziness, Denies headache(s), Denies numbness, Denies tingling and Denies weakness <Adwoa Oden NP - Last Filed: 02/19/22 17:21> Psychiatric: Psychiatric: Reports depression and Reports suicidal ideation <Adwoa Oden NP - Last Filed: 02/19/22 17:21> [facility] Past Medical History Attestation statement: The following information was validated with the patient. <Adwoa Oden NP - Last Filed: 02/19/22 17:21> Source: old records reviewed and nursing notes reviewed <Adwoa Oden NP - Last Filed: 02/19/22 17:21> Social History Social History: Social History Household Members: Spouse Housing: House Do you presently have visiting nurse or other home services: No Patient Tobacco Use Status: Never used Tobacco Advance Directives: No Advance Directives Information Provided: No service: No Sexual orientation: Straight/Heterosexual <Adwoa Oden NP - Last Filed: 02/19/22 17:21> Physical Exam Vital Signs: Vital Signs: Last Vital Signs Temp 97.4 F 02/20/22 00:08 Pulse 88 02/20/22 00:08 Resp 16 02/20/22 00:08 BP 129/75 02/20/22 06:02 Pulse Ox 99 02/20/22 00:08 O2 Del Method 02/20/22 00:08 BMI result Body Mass Index 27.3 <Adwoa Oden NP - Last Filed: 02/19/22 17:21> Vital Signs: Last Vital Signs Temp 97.4 F 02/20/22 00:08 Pulse 88 02/20/22 00:08 Resp 16 02/20/22 00:08 BP 129/75 02/20/22 06:02 Pulse Ox 99 02/20/22 00:08 O2 Del Method 02/20/22 00:08 BMI result Body Mass Index 27.3 <BRY Mondragon - Last Filed: 02/19/22 18:38> Vital Signs: Last Vital Signs Temp 97.4 F 02/20/22 00:08 Pulse 88 02/20/22 00:08 Resp 16 02/20/22 00:08 BP 129/75 02/20/22 06:02 Pulse Ox 99 02/20/22 00:08 O2 Del Method 02/20/22 00:08 BMI result Body Mass Index 27.3 <Ismael Pedroza MD - Last Filed: 02/20/22 07:09> Const: General: cooperative, healthy appearing, comfortable and no acute distress <Adwoa Oden NP - Last Filed: 02/19/22 17:21> Orientation/consciousness: patient oriented x3 <Adwoa Oden NP - Last Filed: 02/19/22 17:21> Limitations: no limitations <Adwoa Oden NP - Last Filed: 02/19/22 17:21> HEENT: Head: Yes normal to inspection <Adwoa Oden NP - Last Filed: 02/19/22 17:21> Ears: hearing grossly normal bilaterally <Adwoa Oden NP - Last Filed: 02/19/22 17:21> General nose exam: Normal external nose present <Adwoa Oden NP - Last Filed: 02/19/22 17:21> Face and sinus: Yes normal facial exam <Adwoa Oden NP - Last Filed: 02/19/22 17:21> Mouth: Normal oral and palatal mucosa present <Adwoa Oden NP - Last Filed: 02/19/22 17:21> Throat: Yes posterior oropharynx normal <Adwoa Oden NP - Last Filed: 02/19/22 17:21> Eyes: General: appearance normal, both eyes and all related structures <Adwoa Oden NP - Last Filed: 02/19/22 17:21> Pupils: Equal, round and reactive pupils present <Adwoa Oden NP - Last Filed: 02/19/22 17:21> Neck: Neck: Yes normal visual inspection <Adwoa Oden NP - Last Filed: 02/19/22 17:21> Chest: Chest palpation & inspection: normal inspection of the chest <Adwoa Oden NP - Last Filed: 02/19/22 17:21> Resp: Effort & Inspection: normal respiratory effort <Adwoa Oden NP - Last Filed: 02/19/22 17:21> Auscultation: clear to auscultation bilaterally <Adwoa Oden NP - Last Filed: 02/19/22 17:21> Cardio: Rate: regular rate <Adwoa Oden NP - Last Filed: 02/19/22 17:21> Rhythm: regular rhythm <Adwoa Oden NP - Last Filed: 02/19/22 17:21> Peripheral pulses: Peripheral pulses 2+ throughout <Adwoa Oden NP - Last Filed: 02/19/22 17:21> GI: Inspection: Yes normal to inspection <Adwoa Oden NP - Last Filed: 02/19/22 17:21> Palpation (GI): Soft to palpation and nontender <Adwoa Oden NP - Last Filed: 02/19/22 17:21> Auscultation: normal bowel sounds <Adwoa Oden NP - Last Filed: 02/19/22 17:21> Back/Spine/Pelvis: Thoracic/Lumbar Spine: thoracic and lumbar spine normal to inspection <Adwoa Oden NP - Last Filed: 02/19/22 17:21> Skin: General skin exam: no rashes or lesions noted <Adwoa Oden NP - Last Filed: 02/19/22 17:21> Neuro: General: patient oriented x3, no focal motor deficits and normal sensation to monofilament <Adwoa Oden NP - Last Filed: 02/19/22 17:21> Cranial nerves: Yes CN's II-XII intact bilaterally and Yes Equal, round and reactive pupils present <Adwoa Oden NP - Last Filed: 02/19/22 17:21> Cognition (Neuro): normal cognition <Adwoa Oden NP - Last Filed: 02/19/22 17:21> Speech: No Abnormal speech present <Adwoa Oden NP - Last Filed: 02/19/22 17:21> Gait exam (Neuro): Normal gait present <Adwoa Oden NP - Last Filed: 02/19/22 17:21> Motor exam (neuro): 5/5 motor strength present throughout <Adwoa Oden NP - Last Filed: 02/19/22 17:21> Extrem: General: Yes normal to inspection <Adwoa Oden NP - Last Filed: 02/19/22 17:21> Course Course Course Narrative: Labs show a mild FRANCISCO and elevated blood glucose. Patient will receive 1 L of IV fluids and will reassess. <Adwoa Oden NP - Last Filed: 02/19/22 17:21> Reevaluation(s) Reevaluation #1: 1530- Patient reports he had a mechanical fall with rib strike. No head strike or LOC. Will check rib x-ray <Adwoa Oden NP - Last Filed: 02/19/22 17:21> Reevaluation #2: [id number]-I did speak to the patient's . She tells me that she had no idea the patient took extra medications. She tells me that if he took them it would of been on Friday evening. He was found by the son lying on the ground around 02:00 o'clock in the morning yesterday. He was then assisted into the bed. She believes the only medications he would had access to work Topamax and trazodone. He did feel a 30 day supply of Topamax 25 mg on December 19 as well as a 30 day supply of trazodone 50 mg tablets (take 3 tablets daily) on December 19. She tells me the patient has been inconsistently taking his medications. She believes he had 14 tablets left of Topamax 25 mg. She is unsure how much trazodone he had left. She tells me both bottles are empty. Patient is not a reliable historian. It is unclear exactly how much he took if any at all of the above medications. He is alert and oriented. His EKG is normal. His labs are normal with the exception of mild dehydration and he is currently receiving some IV fluids. He was evaluated by the care team (Rosi) and the decision was made to follow-up with the patient in the morning for re- evaluation. His would like to be contacted tomorrow to discuss his case (Rosina [phone]). A repeat BMP will be ordered for with fluids are finished. Patient will be placed in physician observation pending disposition <Adwoa Oden NP - Last Filed: 02/19/22 17:21> Reevaluation #3: BMP with improvement. At this time patient remains in physician observation. Patient is now getting moved from the main emergency department to the Behavioral pod. Pending re-evaluation in the morning. <BRY Mondragon - Last Filed: 02/19/22 18:38> Time: 18:38 <BRY Mondragon - Last Filed: 02/19/22 18:38> Consultations Consultation #1: Patient medically cleared with stable vitals labs are stable waiting for care team to evaluate the patient <Ismael Pedroza MD - Last Filed: 02/20/22 07:09> Time: 07:06 <Ismael Pedroza MD - Last Filed: 02/20/22 07:09> MDM - Psych MDM Narrative Medical decision making narrative: 56-year-old male here with suicidal thoughts and an intentional overdose yesterday morning at 03:00 on an unknown medication and unknown amount. I reviewed all of the patient's medications with him at the bedside including his most recently filled medications and the patient cannot recall which medication he may have taken or how much. He tells me his may know so I called her. I was unable to reach her. I left her 2 messages however she has not returned any phone calls. The patient is alert and oriented. I explicitly asked the patient if he overdosed on his Wellbutrin, Januvia, metformin and Topamax which he denies. I will check labs, EKG, drug screen. <Adwoa Oden NP - Last Filed: 02/19/22 17:21> Medical Records Attestation: I reviewed the patient's medical records. <Adwoa Oden NP - Last Filed: 02/19/22 17:21> Lab Data Attestation: I reviewed the patient's lab results. <Adwoa Oden NP - Last Filed: 02/19/22 17:21> Result diagrams: : 02/19/22 13:43 02/19/22 17:50 <Adwoa Oden NP - Last Filed: 02/19/22 17:21> Labs: Lab Results 02/19/22 02/19/22 02/19/22 Range/Units 13:43 13:43 13:43 WBC 10.8 (4.8-10.8) X10*3/uL RBC 5.41 (4.60-5.80) X10*6/uL Hgb 15.5 (14.0-18.0) g/dl Hct 48.2 (42.0-52.0) % MCV 89.1 (80.0-98.0) fL MCH 28.7 (27.0-33.0) pg MCHC 32.2 (31.0-36.0) g/dl RDW 14.6 (11.0-16.0) % Plt Count 222 (160-400) X10*3/uL MPV 10.4 (9.4-12.4) fL Immature Gran % (Auto) 0.6 H (0.0-0.4) % Neut % (Auto) 84.2 H (45-73) % Lymph % (Auto) 9.0 L (20-40) % Bollinger % (Auto) 5.8 (2-11) % Eos % (Auto) 0.1 (0-4) % Baso % (Auto) 0.3 (0-2) % Lymph # (Auto) 1.0 L (1.2-4.9) X10*3/uL Bollinger # (Auto) 0.6 (0.1-1.2) X10*3/uL Eos # (Auto) 0.0 (0.0-0.4) X10*3/uL Baso # (Auto) 0.0 (0.0-0.2) X10*3/uL Abs Immat Gran (auto) 0.07 H (0.00-0.03) X10*3/uL Absolute Neuts (auto) 9.1 H (2.0-8.3) x10*3/uL Absolute Nucleated RBC 0.000 (0.0-0.012) X10*3/uL Nucleated RBC % (auto) 0.0 (0.0-0.2) /100WBC Sodium 141 (135-145) mmol/L Potassium 4.8 (3.3-5.1) mmol/L Chloride 107 (96-108) mmol/L Carbon Dioxide 23 (22-29) mmol/L Anion Gap 16 (12-20) BUN 28 H (9-16) mg/dL Creatinine 1.46 H (0.5-1.4) mg/dL Estim Creat Clear Calc 54.0 Estimated GFR 50 POC Glucose (60-115) mg/dL Random Glucose 375 H* (60-115) mg/dL Calcium 9.3 (8.4-10.2) mg/dL Total Bilirubin 0.6 (0.0-1.0) mg/dL Direct Bilirubin 0.2 (0.0-0.5) mg/dL AST 16 (5-37) U/L ALT 23 (0-40) U/L Alkaline Phosphatase 82 (39-117) U/L Total Protein 6.7 (6.5-8.0) g/dL Albumin 3.8 (3.5-5.0) g/dL Salicylates < 5.0 L (15-30) mg/dL Urine Opiates Screen (Not Detect) Urine Fentanyl Screen (Not Detect) Acetaminophen < 1 (<30) mcg/mL Ur Barbiturates Screen (Not Detect) Ur Phencyclidine Scrn (Not Detect) Ur Amphetamines Screen (Not Detect) U Benzodiazepines Scrn (Not Detect) Urine Cocaine Screen (Not Detect) U Marijuana (THC) Screen (Not Detect) Ethyl Alcohol < 10 mg/dL COVID-19 ([facility]) (Negative) COVID-19 Clin Com 02/19/22 02/19/22 02/19/22 Range/Units 13:45 16:02 17:50 WBC (4.8-10.8) X10*3/uL RBC (4.60-5.80) X10*6/uL Hgb (14.0-18.0) g/dl Hct (42.0-52.0) % MCV (80.0-98.0) fL MCH (27.0-33.0) pg MCHC (31.0-36.0) g/dl RDW (11.0-16.0) % Plt Count (160-400) X10*3/uL MPV (9.4-12.4) fL Immature Gran % (Auto) (0.0-0.4) % Neut % (Auto) (45-73) % Lymph % (Auto) (20-40) % Bollinger % (Auto) (2-11) % Eos % (Auto) (0-4) % Baso % (Auto) (0-2) % Lymph # (Auto) (1.2-4.9) X10*3/uL Bollinger # (Auto) (0.1-1.2) X10*3/uL Eos # (Auto) (0.0-0.4) X10*3/uL Baso # (Auto) (0.0-0.2) X10*3/uL Abs Immat Gran (auto) (0.00-0.03) X10*3/uL Absolute Neuts (auto) (2.0-8.3) x10*3/uL Absolute Nucleated RBC (0.0-0.012) X10*3/uL Nucleated RBC % (auto) (0.0-0.2) /100WBC Sodium 142 (135-145) mmol/L Potassium 3.8 D (3.3-5.1) mmol/L Chloride 108 (96-108) mmol/L Carbon Dioxide 23 (22-29) mmol/L Anion Gap 15 (12-20) BUN 27 H (9-16) mg/dL Creatinine 1.22 (0.5-1.4) mg/dL Estim Creat Clear Calc 64.6 Estimated GFR > 60 POC Glucose (60-115) mg/dL Random Glucose 269 H (60-115) mg/dL Calcium 8.9 (8.4-10.2) mg/dL Total Bilirubin (0.0-1.0) mg/dL Direct Bilirubin (0.0-0.5) mg/dL AST (5-37) U/L ALT (0-40) U/L Alkaline Phosphatase (39-117) U/L Total Protein (6.5-8.0) g/dL Albumin (3.5-5.0) g/dL Salicylates (15-30) mg/dL Urine Opiates Screen Not Detected (Not Detect) Urine Fentanyl Screen Not Detected (Not Detect) Acetaminophen (<30) mcg/mL Ur Barbiturates Screen Not Detected (Not Detect) Ur Phencyclidine Scrn Not Detected (Not Detect) Ur Amphetamines Screen POSITIVE H (Not Detect) U Benzodiazepines Scrn Not Detected (Not Detect) Urine Cocaine Screen Not Detected (Not Detect) U Marijuana (THC) Screen Not Detected (Not Detect) Ethyl Alcohol mg/dL COVID-19 ([facility]) Negative (Negative) COVID-19 Clin Com See Note 02/19/22 02/20/22 Range/Units 21:31 06:12 WBC (4.8-10.8) X10*3/uL RBC (4.60-5.80) X10*6/uL Hgb (14.0-18.0) g/dl Hct (42.0-52.0) % MCV (80.0-98.0) fL MCH (27.0-33.0) pg MCHC (31.0-36.0) g/dl RDW (11.0-16.0) % Plt Count (160-400) X10*3/uL MPV (9.4-12.4) fL Immature Gran % (Auto) (0.0-0.4) % Neut % (Auto) (45-73) % Lymph % (Auto) (20-40) % Bollinger % (Auto) (2-11) % Eos % (Auto) (0-4) % Baso % (Auto) (0-2) % Lymph # (Auto) (1.2-4.9) X10*3/uL Bollinger # (Auto) (0.1-1.2) X10*3/uL Eos # (Auto) (0.0-0.4) X10*3/uL Baso # (Auto) (0.0-0.2) X10*3/uL Abs Immat Gran (auto) (0.00-0.03) X10*3/uL Absolute Neuts (auto) (2.0-8.3) x10*3/uL Absolute Nucleated RBC (0.0-0.012) X10*3/uL Nucleated RBC % (auto) (0.0-0.2) /100WBC Sodium (135-145) mmol/L Potassium (3.3-5.1) mmol/L Chloride (96-108) mmol/L Carbon Dioxide (22-29) mmol/L Anion Gap (12-20) BUN (9-16) mg/dL Creatinine (0.5-1.4) mg/dL Estim Creat Clear Calc Estimated GFR POC Glucose 250 H 182 H (60-115) mg/dL Random Glucose (60-115) mg/dL Calcium (8.4-10.2) mg/dL Total Bilirubin (0.0-1.0) mg/dL Direct Bilirubin (0.0-0.5) mg/dL AST (5-37) U/L ALT (0-40) U/L Alkaline Phosphatase (39-117) U/L Total Protein (6.5-8.0) g/dL Albumin (3.5-5.0) g/dL Salicylates (15-30) mg/dL Urine Opiates Screen (Not Detect) Urine Fentanyl Screen (Not Detect) Acetaminophen (<30) mcg/mL Ur Barbiturates Screen (Not Detect) Ur Phencyclidine Scrn (Not Detect) Ur Amphetamines Screen (Not Detect) U Benzodiazepines Scrn (Not Detect) Urine Cocaine Screen (Not Detect) U Marijuana (THC) Screen (Not Detect) Ethyl Alcohol mg/dL COVID-19 ([facility]) (Negative) COVID-19 Clin Com <Adwoa Oden, [employer] HELPER - Last Filed: 02/19/22 17:21> Lab Results 02/19/22 02/19/22 02/19/22 Range/Units 13:43 13:43 13:43 WBC 10.8 (4.8-10.8) X10*3/uL RBC 5.41 (4.60-5.80) X10*6/uL Hgb 15.5 (14.0-18.0) g/dl Hct 48.2 (42.0-52.0) % MCV 89.1 (80.0-98.0) fL MCH 28.7 (27.0-33.0) pg MCHC 32.2 (31.0-36.0) g/dl RDW 14.6 (11.0-16.0) % Plt Count 222 (160-400) X10*3/uL MPV 10.4 (9.4-12.4) fL Immature Gran % (Auto) 0.6 H (0.0-0.4) % Neut % (Auto) 84.2 H (45-73) % Lymph % (Auto) 9.0 L (20-40) % Bollinger % (Auto) 5.8 (2-11) % Eos % (Auto) 0.1 (0-4) % Baso % (Auto) 0.3 (0-2) % Lymph # (Auto) 1.0 L (1.2-4.9) X10*3/uL Bollinger # (Auto) 0.6 (0.1-1.2) X10*3/uL Eos # (Auto) 0.0 (0.0-0.4) X10*3/uL Baso # (Auto) 0.0 (0.0-0.2) X10*3/uL Abs Immat Gran (auto) 0.07 H (0.00-0.03) X10*3/uL Absolute Neuts (auto) 9.1 H (2.0-8.3) x10*3/uL Absolute Nucleated RBC 0.000 (0.0-0.012) X10*3/uL Nucleated RBC % (auto) 0.0 (0.0-0.2) /100WBC Sodium 141 (135-145) mmol/L Potassium 4.8 (3.3-5.1) mmol/L Chloride 107 (96-108) mmol/L Carbon Dioxide 23 (22-29) mmol/L Anion Gap 16 (12-20) BUN 28 H (9-16) mg/dL Creatinine 1.46 H (0.5-1.4) mg/dL Estim Creat Clear Calc 54.0 Estimated GFR 50 POC Glucose (60-115) mg/dL Random Glucose 375 H* (60-115) mg/dL Calcium 9.3 (8.4-10.2) mg/dL Total Bilirubin 0.6 (0.0-1.0) mg/dL Direct Bilirubin 0.2 (0.0-0.5) mg/dL AST 16 (5-37) U/L ALT 23 (0-40) U/L Alkaline Phosphatase 82 (39-117) U/L Total Protein 6.7 (6.5-8.0) g/dL Albumin 3.8 (3.5-5.0) g/dL Salicylates < 5.0 L (15-30) mg/dL Urine Opiates Screen (Not Detect) Urine Fentanyl Screen (Not Detect) Acetaminophen < 1 (<30) mcg/mL Ur Barbiturates Screen (Not Detect) Ur Phencyclidine Scrn (Not Detect) Ur Amphetamines Screen (Not Detect) U Benzodiazepines Scrn (Not Detect) Urine Cocaine Screen (Not Detect) U Marijuana (THC) Screen (Not Detect) Ethyl Alcohol < 10 mg/dL COVID-19 ([facility]) (Negative) COVID-19 Clin Com 02/19/22 02/19/22 02/19/22 Range/Units 13:45 16:02 17:50 WBC (4.8-10.8) X10*3/uL RBC (4.60-5.80) X10*6/uL Hgb (14.0-18.0) g/dl Hct (42.0-52.0) % MCV (80.0-98.0) fL MCH (27.0-33.0) pg MCHC (31.0-36.0) g/dl RDW (11.0-16.0) % Plt Count (160-400) X10*3/uL MPV (9.4-12.4) fL Immature Gran % (Auto) (0.0-0.4) % Neut % (Auto) (45-73) % Lymph % (Auto) (20-40) % Bollinger % (Auto) (2-11) % Eos % (Auto) (0-4) % Baso % (Auto) (0-2) % Lymph # (Auto) (1.2-4.9) X10*3/uL Bollinger # (Auto) (0.1-1.2) X10*3/uL Eos # (Auto) (0.0-0.4) X10*3/uL Baso # (Auto) (0.0-0.2) X10*3/uL Abs Immat Gran (auto) (0.00-0.03) X10*3/uL Absolute Neuts (auto) (2.0-8.3) x10*3/uL Absolute Nucleated RBC (0.0-0.012) X10*3/uL Nucleated RBC % (auto) (0.0-0.2) /100WBC Sodium 142 (135-145) mmol/L Potassium 3.8 D (3.3-5.1) mmol/L Chloride 108 (96-108) mmol/L Carbon Dioxide 23 (22-29) mmol/L Anion Gap 15 (12-20) BUN 27 H (9-16) mg/dL Creatinine 1.22 (0.5-1.4) mg/dL Estim Creat Clear Calc 64.6 Estimated GFR > 60 POC Glucose (60-115) mg/dL Random Glucose 269 H (60-115) mg/dL Calcium 8.9 (8.4-10.2) mg/dL Total Bilirubin (0.0-1.0) mg/dL Direct Bilirubin (0.0-0.5) mg/dL AST (5-37) U/L ALT (0-40) U/L Alkaline Phosphatase (39-117) U/L Total Protein (6.5-8.0) g/dL Albumin (3.5-5.0) g/dL Salicylates (15-30) mg/dL Urine Opiates Screen Not Detected (Not Detect) Urine Fentanyl Screen Not Detected (Not Detect) Acetaminophen (<30) mcg/mL Ur Barbiturates Screen Not Detected (Not Detect) Ur Phencyclidine Scrn Not Detected (Not Detect) Ur Amphetamines Screen POSITIVE H (Not Detect) U Benzodiazepines Scrn Not Detected (Not Detect) Urine Cocaine Screen Not Detected (Not Detect) U Marijuana (THC) Screen Not Detected (Not Detect) Ethyl Alcohol mg/dL COVID-19 ([facility]) Negative (Negative) COVID-19 Clin Com See Note 02/19/22 02/20/22 Range/Units 21:31 06:12 WBC (4.8-10.8) X10*3/uL RBC (4.60-5.80) X10*6/uL Hgb (14.0-18.0) g/dl Hct (42.0-52.0) % MCV (80.0-98.0) fL MCH (27.0-33.0) pg MCHC (31.0-36.0) g/dl RDW (11.0-16.0) % Plt Count (160-400) X10*3/uL MPV (9.4-12.4) fL Immature Gran % (Auto) (0.0-0.4) % Neut % (Auto) (45-73) % Lymph % (Auto) (20-40) % Bollinger % (Auto) (2-11) % Eos % (Auto) (0-4) % Baso % (Auto) (0-2) % Lymph # (Auto) (1.2-4.9) X10*3/uL Bollinger # (Auto) (0.1-1.2) X10*3/uL Eos # (Auto) (0.0-0.4) X10*3/uL Baso # (Auto) (0.0-0.2) X10*3/uL Abs Immat Gran (auto) (0.00-0.03) X10*3/uL Absolute Neuts (auto) (2.0-8.3) x10*3/uL Absolute Nucleated RBC (0.0-0.012) X10*3/uL Nucleated RBC % (auto) (0.0-0.2) /100WBC Sodium (135-145) mmol/L Potassium (3.3-5.1) mmol/L Chloride (96-108) mmol/L Carbon Dioxide (22-29) mmol/L Anion Gap (12-20) BUN (9-16) mg/dL Creatinine (0.5-1.4) mg/dL Estim Creat Clear Calc Estimated GFR POC Glucose 250 H 182 H (60-115) mg/dL Random Glucose (60-115) mg/dL Calcium (8.4-10.2) mg/dL Total Bilirubin (0.0-1.0) mg/dL Direct Bilirubin (0.0-0.5) mg/dL AST (5-37) U/L ALT (0-40) U/L Alkaline Phosphatase (39-117) U/L Total Protein (6.5-8.0) g/dL Albumin (3.5-5.0) g/dL Salicylates (15-30) mg/dL Urine Opiates Screen (Not Detect) Urine Fentanyl Screen (Not Detect) Acetaminophen (<30) mcg/mL Ur Barbiturates Screen (Not Detect) Ur Phencyclidine Scrn (Not Detect) Ur Amphetamines Screen (Not Detect) U Benzodiazepines Scrn (Not Detect) Urine Cocaine Screen (Not Detect) U Marijuana (THC) Screen (Not Detect) Ethyl Alcohol mg/dL COVID-19 ([facility]) (Negative) COVID-19 Clin Com <BRY Mondragon - Last Filed: 02/19/22 18:38> Lab Results 02/19/22 02/19/22 02/19/22 Range/Units 13:43 13:43 13:43 WBC 10.8 (4.8-10.8) X10*3/uL RBC 5.41 (4.60-5.80) X10*6/uL Hgb 15.5 (14.0-18.0) g/dl Hct 48.2 (42.0-52.0) % MCV 89.1 (80.0-98.0) fL MCH 28.7 (27.0-33.0) pg MCHC 32.2 (31.0-36.0) g/dl RDW 14.6 (11.0-16.0) % Plt Count 222 (160-400) X10*3/uL MPV 10.4 (9.4-12.4) fL Immature Gran % (Auto) 0.6 H (0.0-0.4) % Neut % (Auto) 84.2 H (45-73) % Lymph % (Auto) 9.0 L (20-40) % [place]linger % (Auto) 5.8 (2-11) % Eos % (Auto) 0.1 (0-4) % Baso % (Auto) 0.3 (0-2) % Lymph # (Auto) 1.0 L (1.2-4.9) X10*3/uL [place]linger # (Auto) 0.6 (0.1-1.2) X10*3/uL Eos # (Auto) 0.0 (0.0-0.4) X10*3/uL Baso # (Auto) 0.0 (0.0-0.2) X10*3/uL Abs Immat Gran (auto) 0.07 H (0.00-0.03) X10*3/uL Absolute Neuts (auto) 9.1 H (2.0-8.3) x10*3/uL Absolute Nucleated RBC 0.000 (0.0-0.012) X10*3/uL Nucleated RBC % (auto) 0.0 (0.0-0.2) /100WBC Sodium 141 (135-145) mmol/L Potassium 4.8 (3.3-5.1) mmol/L Chloride 107 (96-108) mmol/L Carbon Dioxide 23 (22-29) mmol/L Anion Gap 16 (12-20) BUN 28 H (9-16) mg/dL Creatinine 1.46 H (0.5-1.4) mg/dL Estim Creat Clear Calc 54.0 Estimated GFR 50 POC Glucose (60-115) mg/dL Random Glucose 375 H* (60-115) mg/dL Calcium 9.3 (8.4-10.2) mg/dL Total Bilirubin 0.6 (0.0-1.0) mg/dL Direct Bilirubin 0.2 (0.0-0.5) mg/dL AST 16 (5-37) U/L ALT 23 (0-40) U/L Alkaline Phosphatase 82 (39-117) U/L Total Protein 6.7 (6.5-8.0) g/dL Albumin 3.8 (3.5-5.0) g/dL Salicylates < 5.0 L (15-30) mg/dL Urine Opiates Screen (Not Detect) Urine Fentanyl Screen (Not Detect) Acetaminophen < 1 (<30) mcg/mL Ur Barbiturates Screen (Not Detect) Ur Phencyclidine Scrn (Not Detect) Ur Amphetamines Screen (Not Detect) U Benzodiazepines Scrn (Not Detect) Urine Cocaine Screen (Not Detect) U Marijuana (THC) Screen (Not Detect) Ethyl Alcohol < 10 mg/dL COVID-19 (FERN) (Negative) COVID-19 Clin Com 02/19/22 02/19/22 02/19/22 Range/Units 13:45 16:02 17:50 WBC (4.8-10.8) X10*3/uL RBC (4.60-5.80) X10*6/uL Hgb (14.0-18.0) g/dl Hct (42.0-52.0) % MCV (80.0-98.0) fL MCH (27.0-33.0) pg MCHC (31.0-36.0) g/dl RDW (11.0-16.0) % Plt Count (160-400) X10*3/uL MPV (9.4-12.4) fL Immature Gran % (Auto) (0.0-0.4) % Neut % (Auto) (45-73) % Lymph % (Auto) (20-40) % Bollinger % (Auto) (2-11) % Eos % (Auto) (0-4) % Baso % (Auto) (0-2) % Lymph # (Auto) (1.2-4.9) X10*3/uL Bollinger # (Auto) (0.1-1.2) X10*3/uL Eos # (Auto) (0.0-0.4) X10*3/uL Baso # (Auto) (0.0-0.2) X10*3/uL Abs Immat Gran (auto) (0.00-0.03) X10*3/uL Absolute Neuts (auto) (2.0-8.3) x10*3/uL Absolute Nucleated RBC (0.0-0.012) X10*3/uL Nucleated RBC % (auto) (0.0-0.2) /100WBC Sodium 142 (135-145) mmol/L Potassium 3.8 D (3.3-5.1) mmol/L Chloride 108 (96-108) mmol/L Carbon Dioxide 23 (22-29) mmol/L Anion Gap 15 (12-20) BUN 27 H (9-16) mg/dL Creatinine 1.22 (0.5-1.4) mg/dL Estim Creat Clear Calc 64.6 Estimated GFR > 60 POC Glucose (60-115) mg/dL Random Glucose 269 H (60-115) mg/dL Calcium 8.9 (8.4-10.2) mg/dL Total Bilirubin (0.0-1.0) mg/dL Direct Bilirubin (0.0-0.5) mg/dL AST (5-37) U/L ALT (0-40) U/L Alkaline Phosphatase (39-117) U/L Total Protein (6.5-8.0) g/dL Albumin (3.5-5.0) g/dL Salicylates (15-30) mg/dL Urine Opiates Screen Not Detected (Not Detect) Urine Fentanyl Screen Not Detected (Not Detect) Acetaminophen (<30) mcg/mL Ur Barbiturates Screen Not Detected (Not Detect) Ur Phencyclidine Scrn Not Detected (Not Detect) Ur Amphetamines Screen POSITIVE H (Not Detect) U Benzodiazepines Scrn Not Detected (Not Detect) Urine Cocaine Screen Not Detected (Not Detect) U Marijuana (THC) Screen Not Detected (Not Detect) Ethyl Alcohol mg/dL COVID-19 (FERN) Negative (Negative) COVID-19 Clin Com See Note 02/19/22 02/20/22 Range/Units 21:31 06:12 WBC (4.8-10.8) X10*3/uL RBC (4.60-5.80) X10*6/uL Hgb (14.0-18.0) g/dl Hct (42.0-52.0) % MCV (80.0-98.0) fL MCH (27.0-33.0) pg MCHC (31.0-36.0) g/dl RDW (11.0-16.0) % Plt Count (160-400) X10*3/uL MPV (9.4-12.4) fL Immature Gran % (Auto) (0.0-0.4) % Neut % (Auto) (45-73) % Lymph % (Auto) (20-40) % Bollinger % (Auto) (2-11) % Eos % (Auto) (0-4) % Baso % (Auto) (0-2) % Lymph # (Auto) (1.2-4.9) X10*3/uL Bollinger # (Auto) (0.1-1.2) X10*3/uL Eos # (Auto) (0.0-0.4) X10*3/uL Baso # (Auto) (0.0-0.2) X10*3/uL Abs Immat Gran (auto) (0.00-0.03) X10*3/uL Absolute Neuts (auto) (2.0-8.3) x10*3/uL Absolute Nucleated RBC (0.0-0.012) X10*3/uL Nucleated RBC % (auto) (0.0-0.2) /100WBC Sodium (135-145) mmol/L Potassium (3.3-5.1) mmol/L Chloride (96-108) mmol/L Carbon Dioxide (22-29) mmol/L Anion Gap (12-20) BUN (9-16) mg/dL Creatinine (0.5-1.4) mg/dL Estim Creat Clear Calc Estimated GFR POC Glucose 250 H 182 H (60-115) mg/dL Random Glucose (60-115) mg/dL Calcium (8.4-10.2) mg/dL Total Bilirubin (0.0-1.0) mg/dL Direct Bilirubin (0.0-0.5) mg/dL AST (5-37) U/L ALT (0-40) U/L Alkaline Phosphatase (39-117) U/L Total Protein (6.5-8.0) g/dL Albumin (3.5-5.0) g/dL Salicylates (15-30) mg/dL Urine Opiates Screen (Not Detect) Urine Fentanyl Screen (Not Detect) Acetaminophen (<30) mcg/mL Ur Barbiturates Screen (Not Detect) Ur Phencyclidine Scrn (Not Detect) Ur Amphetamines Screen (Not Detect) U Benzodiazepines Scrn (Not Detect) Urine Cocaine Screen (Not Detect) U Marijuana (THC) Screen (Not Detect) Ethyl Alcohol mg/dL COVID-19 (FERN) (Negative) COVID-19 Clin Com <Ismael Pedroza MD - Last Filed: 02/20/22 07:09> Imaging Data ribs xray: Attestation: I personally reviewed and interpreted this imaging study as follows: <Adwoa Oden NP - Last Filed: 02/19/22 17:21> Radiologist's impression: [address] [address] XRay Report Signed Patient: Juan Ramon Xie MR#: [id number] : 1965 Acct:[id number] Age/Sex: 56 / M ADM Date: 02/19/22 Loc: HO.ED Attending Dr: Ordering Physician: Adwoa Oden NP Date of Service: 02/19/22 Procedure(s): XR ribs LT min 3V w CXR1V Accession Number(s): [id number] cc: Adwoa Oden NP~ EXAMINATION: XR RIBS, LEFT, CHEST PA CLINICAL INFORMATION: Left rib pain status post fall. COMPARISON: Chest radiograph dated 02/24/2017. TECHNIQUE: 3 views of the left ribs were obtained along with a PA view of the chest. A skin marker was placed overlying the inferior left ribs. FINDINGS: Lungs are clear. No consolidation, pneumothorax, or pleural effusion. The cardiomediastinal silhouette and pulmonary vasculature are normal. Osseous structures are unremarkable. Ribs are intact. No fractures are identified. XR/XR ribs LT min 3V w CXR1V IMPRESSION: Unremarkable examination. <Adwoa Oden NP - Last Filed: 02/19/22 17:21> Discharge Plan Discharge Clinical Impression: Depression, Intentional overdose <Adwoa Oden NP - Last Filed: 02/19/22 17:21> Patient Disposition: Still a Patient <Adwoa Oden NP - Last Filed: 02/19/22 17:21> Prescriptions: No Action Januvia 50 mg tablet 1 tab PO DAILY bupropion HCl 150 mg tablet extended release 24 hr 1 tab PO DAILY bupropion HCl 300 mg tablet extended release 24 hr 1 tab PO DAILY metformin 500 mg tablet extended release 24 hr 2 tab PO BID Trulicity 1.5 mg/0.5 mL pen injector 1.5 mg subcut LUCIA@0900 valsartan 80 mg tablet 1 tab PO DAILY <Adwoa Oden NP - Last Filed: 02/19/22 17:21>
--- NOTE | 2022-02-19 14:02 | ECG_ITS ---
Test Reason : overdose Blood Pressure : / mmHG Vent. Rate : 081 BPM Atrial Rate : 081 BPM P-R Int : 148 ms QRS Dur : 144 ms QT Int : 448 ms P-R-T Axes : 032 007 119 degrees QTc Int : 520 ms Normal sinus rhythm Left bundle branch block Abnormal ECG When compared with ECG of 11-DEC-2021 16:06, No significant change was found Referred By: Adwoa Oden Electronically Signed By:ADELAIDA PALOMO
[2022-02-19 14:06] LABS: Ethanol < 10 mg/dL
[2022-02-19 14:11] LABS: Acetaminophen LAB < 1 mcg/mL (<30); Alanine Aminotransferase 23 U/L (0-40); Albumin Level 3.8 g/dL (3.5-5.0); Alkaline Phosphatase 82 U/L (39-117); Anion Gap 16 (12-20); Aspartate Amino Transferase 16 U/L (5-37); Bilirubin Direct 0.2 mg/dL (0.0-0.5); Bilirubin Total 0.6 mg/dL (0.0-1.0); Blood Urea Nitrogen 28 mg/dL (9-16); Calcium 9.3 mg/dL (8.4-10.2); Carbon Dioxide 23 mmol/L (22-29); Chloride 107 mmol/L (96-108); Estimated Glomerular Filt Rate 50; Potassium 4.8 mmol/L (3.3-5.1); Salicylate < 5.0 mg/dL (15-30); Sodium 141 mmol/L (135-145); Total Protein 6.7 g/dL (6.5-8.0)
[2022-02-19 14:12] LABS: Glucose Random 375 mg/dL (60-115)
[2022-02-19 14:12] LABS: Amphetamine Screen Urine POSITIVE (Not Detect); Barbiturates, Urine Not Detected (Not Detect); Benzodiazepines Screen Urine Not Detected (Not Detect); Cannabinoid Screen Urine Not Detected (Not Detect); Cocaine Screen Urine Not Detected (Not Detect); Fentanyl, urine Not Detected (Not Detect); Opiate Screen Urine Not Detected (Not Detect); Phencyclidine Screen Urine Not Detected (Not Detect)
[2022-02-19] MEDS: 0.9 % Sodium Chloride 1,000 ML 999 ML IV (15:46)
[2022-02-19] MEDS: Acetaminophen 325 MG TABLET 975 MG PO (15:49)
[2022-02-19] MEDS: traMADoL HCL 50 MG TABLET PO (15:49)
[2022-02-19 15:56] VITALS: BP 129/72; PULSE 99; RESP 15; TEMP 37.1; O2SAT 99
--- NOTE | 2022-02-19 16:07 | PC.NURSE ---
pt a&ox3, vss, pt denies SI/HI at this time but OD'd on medication on Friday. 20G IV placed, left hand, NaCl running, medicated per provider order, pt reporting 4/10 left flank pain, worse with movement.
--- NOTE | 2022-02-19 16:17 | MHC.CARE ---
Patient to be evaluated by the CARE Team tomorrow morning. Unable to reach (Rosina [phone]) for collateral information regarding his overdose. Reported taking 70-50mg tablets of a sleep medication, unable to recall the name. He was not feeling well, dehydrated and blood sugar very high, aware that he will be seen tomorrow. Provider updated
[2022-02-19 16:27] LABS: COVID-19 Test Negative (Negative)
--- NOTE | 2022-02-19 18:15 | PHA.MEDREC ---
Pharmacy Consult ? Medication Reconciliation Pharmacy has completed the medication reconciliation. Pt states that he does not currently take topiramate, tramadol, meloxicam or trazodone. Unsure of when he last took trulicity
[2022-02-19 18:17] LABS: Anion Gap 15 (12-20); Blood Urea Nitrogen 27 mg/dL (9-16); Calcium 8.9 mg/dL (8.4-10.2); Carbon Dioxide 23 mmol/L (22-29); Chloride 108 mmol/L (96-108); Creatinine Clr Calc Pharmacy 64.6; Estimated Glomerular Filt Rate > 60; Glucose Random 269 mg/dL (60-115); Potassium 3.8 mmol/L (3.3-5.1); Sodium 142 mmol/L (135-145)
[2022-02-19] MEDS: metFORMIN HCl ER 500 MG TAB.ER.24H 1000 MG PO (21:27)
[2022-02-19 21:34] LABS: Glucose, Whole Blood 250 mg/dL (60-115)
[2022-02-20 00:08] VITALS: BP 128/74; PULSE 88; RESP 16; TEMP 36.3; O2SAT 99
--- NOTE | 2022-02-20 05:41 | PC.NURSE ---
Patient slept through the night, patient reported he has chronic left back pain which affects his mobility sometime, no pain medication requested, ambulates independently, elimination intact, behavior appropriate and non concerning, medication compliant, pending care team evaluation, will continue to monitor
[2022-02-20 06:00] VITALS: BP 148/85
[2022-02-20 06:01] VITALS: BP 141/87
[2022-02-20 06:02] VITALS: BP 129/75
--- NOTE | 2022-02-20 06:13 | PC.NURSE ---
Patient reported dizziness, Orthostatic blood pressure assessed/documented/negative/patient made aware, POC at 0612 182, will continue to monitor
[2022-02-20 06:17] LABS: Glucose, Whole Blood 182 mg/dL (60-115)
--- NOTE | 2022-02-20 07:20 | PC.NURSE ---
patient appears to remain asleep at present respirations are even and unlabored patient appears in no distress
[2022-02-20 09:33] VITALS: BP 138/76; PULSE 87; RESP 17; TEMP 36.6; O2SAT 98
[2022-02-20] MEDS: buPROPion HCl XL 300 MG TAB.ER.24H PO (10:04)
[2022-02-20] MEDS: metFORMIN HCl ER 500 MG TAB.ER.24H 1000 MG PO (10:06)
[2022-02-20] MEDS: SITagliptin Phosphate 50 MG TABLET PO (10:06)
[2022-02-20] MEDS: Valsartan 80 MG TABLET PO (10:06)
[2022-02-20 22:04] VITALS: BP 137/66; PULSE 87; TEMP 35.6
[2022-02-20 23:26] LABS: Glucose, Whole Blood 150 mg/dL (60-115)
[2022-02-20] MEDS: Acetaminophen 325 MG TABLET 650 MG PO (23:26)
[2022-02-20] MEDS: hydrOXYzine HCL 25 MG TABLET PO (23:26)
--- NOTE | 2022-02-21 00:25 | PC.ADMIT ---
Addendum entered by Jaime Julian RN 02/21/22 00:52: Pt is treatment seeking and would like a therapist and medication management. Pt reports depression and anxiety /. Pt denies VH but says has heard voice post O/D saying he is an idiot because of the attempt. [id number] done, admission orders obtained and treatment plan and safety tool done but need to be signed. Pt is resting in room at this time. Original Note: A , white, Romansh-speaking, male pt, aged 56 years was [facility] 2130 following referral from [facility] and CARE team. Pt is known to and was most recently admitted here to in November 2020 with a similar presentation of suicide attempt via O/D of prescription medications. Per CARE team assessment 6 IPLOC over past 13 years with stays at [place] and [facility]. Pt self-presented to [facility] ED on 02/19/22 following an intentional O/D with an intent to in the early hours of 02/18. Pt reported he had taken 70 sleep medication pills and stated he wrote a suicide not to his . Pt was reportedly found by his adult son laying on the kitchen floor around 0130. Pt reports he fell prior to being found striking his left side. Pt reports ongoing left side pain 4-5/10 r/t the fall. Pt had another fall in September in which he had a concussion and was out of work for an extended time. Pt reports bilateral tremulousness at this time which is worse in his right hand since the O/D attempt. Pt said prior to the O/D he had tremulousness in the left hand only. Pt said he has not eaten solid food since Friday prior to his suicide attempt. Pt says he doesn't feel hungry and is not feeling inclined to eat and has some discomfort swallowing since the O/D attempt. Pt says he has lost about 8lbs. Per Care assessment, pt's thinks pt has not been taking meds for some time due to extra medicine bottles on hand and also says is not caring for self. Pt reports recent stressor of working a lot. 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 Pt was calm and cooperative, but flat and quiet. Pt denies substance use except for recently trying marijuana edible that made him worry about working the next day. Pt reports occasional Etoh use. MANCIA was positive for amphetamines. Medical issues include HTN and non-insulin dependent diabetes. Pt is treatment seekinfg
[2022-02-21 01:29] VITALS: BMI 26.6
[2022-02-21 06:00] VITALS: BP 144/82
[2022-02-21 07:00] VITALS: BMI 26.6
[2022-02-21] MEDS: metFORMIN HCl ER 500 MG TAB.ER.24H 1000 MG PO ×2 (08:35→20:42)
[2022-02-21] MEDS: buPROPion HCl XL 150 MG TAB.ER.24H PO (08:35)
[2022-02-21] MEDS: buPROPion HCl XL 300 MG TAB.ER.24H PO (08:35)
[2022-02-21] MEDS: Valsartan 80 MG TABLET PO (08:35)
[2022-02-21] MEDS: SITagliptin Phosphate 50 MG TABLET PO (08:35)
[2022-02-21] MEDS: Acetaminophen 325 MG TABLET 650 MG PO ×2 (08:39→18:14)
[2022-02-21 09:02] LABS: Estimated Average Glucose 243 mg/dL; Hemoglobin A1c % 10.1 %
[2022-02-21 09:11] LABS: Cholesterol 172 mg/dL; HDL Cholesterol 36 mg/dL; LDL Cholesterol Calculated 96 mg/dl; Triglycerides 203 mg/dL
[2022-02-21 09:34] LABS: TSH reflex Free T4 1.66 uIU/mL (0.32-4.0)
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
[2022-02-21 16:21] VITALS: BP 138/90; PULSE 81; TEMP 36.6; O2SAT 96
[2022-02-21] MEDS: Ibuprofen 600 MG TABLET PO (21:33)
[2022-02-22 08:20] VITALS: BP 148/77; PULSE 78; RESP 18; TEMP 36.1; O2SAT 96
[2022-02-22] MEDS: metFORMIN HCl ER 500 MG TAB.ER.24H 1000 MG PO ×2 (08:36→20:41)
[2022-02-22] MEDS: buPROPion HCl XL 150 MG TAB.ER.24H PO (08:37)
[2022-02-22] MEDS: SITagliptin Phosphate 50 MG TABLET PO (08:37)
[2022-02-22] MEDS: buPROPion HCl XL 300 MG TAB.ER.24H PO (08:37)
[2022-02-22] MEDS: ARIPiprazole 2 MG TABLET PO (08:37)
[2022-02-22] MEDS: Valsartan 80 MG TABLET PO (08:37)
[2022-02-22] MEDS: Ibuprofen 600 MG TABLET PO (09:00)
[2022-02-22] MEDS: risperiDONE 1 MG TABLET PO ×2 (13:15→20:41)
[2022-02-22 16:04] VITALS: BP 126/69; PULSE 98; TEMP 36.6; O2SAT 98
--- NOTE | 2022-02-22 16:58 | HO.PSYCHPN ---
Subjective Subjective Date of Service: 02/22/22 Reason For Visit: Depression/SI Subjective Notes: Conditional Voluntary Healthcare Proxy: No Guardianship: No Medical Problems Affecting Mental Status: No Interim History: Pt continues to be unsure of what he took in OD. believes it was opiate pain meds, Topiramate, Trazodone. Discussed med list with Vani-Tramadol- #14 02/07; Flagyl, Augmentin, Keflex, Trulicity, Trazodone, Topamax, Meloxicam. Pt reports voices stating he was a failure as he did not complete suicide. reports medication noncompliance, treatment noncompliance. Pt concurs- I don't have the time . reports periods of thought distortion such as this current episode where pt feels taken advantage of Ambulation is with less distress and pain today. Pt reports less pain s/p fall after OD Medication Compliance: Yes Side effects from medications: No Attending Groups: Intermittent Review of Systems Acute medical concerns: No Medical Review of Systems: unchanged Review of Systems Reports behavioral changes and Reports memory loss Psychiatric: Reports anxiety, Reports behavioral changes, Reports depression, Reports auditory hallucinations, Reports hopelessness, Reports irritability, Reports anhedonia, Reports memory loss, Reports mood swings and Reports suicidal ideation (denies active intent today) Mental Status Exam Mental Status Exam Patient Appearance: Fatigued Patient Orientation: Person, Place, Time and Situation Level of Consciousness: Sedated and Alert Patient Behavior: Talkative, Fatigued, Distractible and Good Eye Contact Mood Description: Depressed and Hostile Affect Description: Flat Patient Cognition Impaired: No Ability to Follow Directions: Fair Speech Pattern: Spontaneous Speech Memory Description: Episodic Impaired Hallucinations: None Delusions: Not Present Perceptual Disturbances: Depersonalization and Derealization Thought Process: Distracted and Rumination Thought Content: positive for Circumstantial, positive for Perseveration, positive for Slowed Thinking and positive for Suicidal Ideation (denies today) Depressive Symptoms: Increased Fatigue, Thoughts of /Suicide, Low Self Esteem, Loss of Energy and Difficulty Concentrating Judgement: Fair Diagnostics Vital Signs (24Hr): Vital Signs - 24 hr 02/22/22 08:20 02/22/22 16:04 Temperature 97.0 F 97.9 F Pulse Rate 78 98 Respiratory Rate 18 Blood Pressure 148/77 H 126/69 Pulse Oximetry 96 98 Oxygen Delivery Method Room Air BMI result Body Mass Index 26.6 Labs Results: 02/19/22 13:43 02/19/22 17:50 Labs: Laboratory Results - last 48 hr 02/20/22 02/21/22 02/21/22 23:22 08:03 08:03 POC Glucose 150 H Estimat Average Glucose 243 Hemoglobin A1c % 10.1 Triglycerides 203 Cholesterol 172 LDL Cholesterol, Calc 96 HDL Cholesterol 36 TSH 1.66 Imaging Radiology Impressions: ITS Impressions Ribs X-Ray 02/19/22 15:28 IMPRESSION: Unremarkable examination. Medications Medications Current Medications Acetaminophen (Acetaminophen 325 Mg Tablet) 650 mg PO Q6H PRN PRN Reason: Headache/Pain Mild Scale (1-3) Last Admin: 02/21/22 18:14 Dose: 650 mg Al Hydroxide/Mg Hydroxide (Magnesium Hydrox/Alum Hydrox 30 Ml Oral.Susp) 30 ml PO Q6H PRN PRN Reason: Heartburn/Nausea Aripiprazole (Aripiprazole 2 Mg Tablet) 2 mg PO DAILY [facility] Last Admin: 02/22/22 08:37 Dose: 2 mg Bupropion HCl (Bupropion Hcl Xl 300 Mg Tab.Er.24h) 300 mg PO DAILY [facility] Last Admin: 02/22/22 08:37 Dose: 300 mg Bupropion HCl (Bupropion Hcl Xl 150 Mg Tab.Er.24h) 150 mg PO DAILY [facility] Last Admin: 02/22/22 08:37 Dose: 150 mg Hydroxyzine HCl (Hydroxyzine Hcl 25 Mg Tablet) 25 mg PO Q6H PRN PRN Reason: Anxiety Last Admin: 02/20/22 23:26 Dose: 25 mg Ibuprofen (Ibuprofen 600 Mg Tablet) 600 mg PO Q6H PRN PRN Reason: mod-severe pain Last Admin: 02/22/22 09:00 Dose: 600 mg Magnesium Hydroxide (Milk Of Magnesia 30 Ml Oral.Susp) 30 ml PO DAILY PRN PRN Reason: Constipation Metformin HCl (Metformin Hcl Er 500 Mg Tab.Er.24h) 1,000 mg PO BID [facility] Last Admin: 02/22/22 08:36 Dose: 1,000 mg Nicotine Polacrilex (Nicotine Polacrilex 2 Mg Gum) 4 mg BUCCAL Q2H PRN PRN Reason: Nicotine Cravings Sitagliptin Phosphate (Sitagliptin Phosphate 50 Mg Tablet) 50 mg PO DAILY [facility] Last Admin: 02/22/22 08:37 Dose: 50 mg Trazodone HCl (Trazodone Hcl 50 Mg Tablet) 50 mg PO BEDTIME PRN PRN Reason: Insomnia Valsartan (Valsartan 80 Mg Tablet) 80 mg PO DAILY [facility]; Protocol Last Admin: 02/22/22 08:37 Dose: 80 mg Allergies Allergies Allergy/AdvReac Type Severity Reaction Status Date / Time codeine [CODEINE] Allergy Unknown delayed Verified 02/07/22 09:46 responses 02/24/17 Assessment & Plan Assessment & Plan (1) Depression: Status: Acute Code(s): F32.A - Depression, unspecified (2) Intentional overdose: Status: Acute Code(s): T50.902A - Poisoning by unspecified drugs, medicaments and biological substances, intentional self-harm, initial encounter Plan 56 yo male s/p overdose with intent to . Plan: Continue current regime Couples meeting next week ( is in [facility] caring for the couples grandson until that time) Collateral contact 02/22/22 Discontinue Abilify Risperdal 1 mg bid Couples meeting next week when returns from caring for their grandson. Pt made contact with work today and requested [facility] paperwork be sent for completion Collateral contact I spent minutes with the patient and/or on the patient floor today, greater than?50% of which was spent counseling/coordinating care. Patient educated on: medication risk/benefits and therapeutic strategies Informed Consent: further education needed Reason for contiued inpatient stay Substantial Risk for: harm to self, inability to function and rapid decompensation
[2022-02-23 06:38] VITALS: BP 149/83; PULSE 89; TEMP 36.1; O2SAT 97
[2022-02-23] MEDS: buPROPion HCl XL 300 MG TAB.ER.24H PO (08:51)
[2022-02-23] MEDS: risperiDONE 1 MG TABLET PO (08:51)
[2022-02-23] MEDS: Valsartan 80 MG TABLET PO (08:51)
[2022-02-23] MEDS: buPROPion HCl XL 150 MG TAB.ER.24H PO (08:51)
[2022-02-23] MEDS: metFORMIN HCl ER 500 MG TAB.ER.24H 1000 MG PO ×2 (08:51→21:05)
[2022-02-23] MEDS: SITagliptin Phosphate 50 MG TABLET PO (08:51)
[2022-02-23] MEDS: Ibuprofen 600 MG TABLET PO ×2 (09:53→20:35)
--- NOTE | 2022-02-23 13:01 | P.PNPSI_ITS ---
Subjective Subjective Date of Service: 02/23/22 Reason For Visit: Depression/SI Interim History: Patient said that he is having a very tough day. He wonders if perhaps it is the new medication. He said his mind is racing more so with negative thoughts that he has a failure. He says he has more racing thoughts than voices but does complain of hearing 1 voice. He denies any HI but says he still has some SI though it is less before. Agrees to increasing Risperdal and switching it to bedtime as he feels a caused him to be tired this morning. 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 Foot shows a scabbed lesion, in the process of healing without any signs of infection. Mental Status Exam Mental Status Exam Patient Appearance: Fatigued and Appropriate Patient Orientation: Person, Place, Time and Situation Level of Consciousness: Appropriate and Alert Patient Behavior: Appropriate, Fatigued and Good Eye Contact Mood Description: Depressed and Anxious Affect Description: Constricted Patient Cognition Impaired: No Ability to Follow Directions: Fair Speech Pattern: Clear and Spontaneous Speech Memory Description: Episodic Impaired Hallucinations: None Delusions: Not Present Perceptual Disturbances: Depersonalization and Derealization Thought Process: Goal Oriented Thought Content: positive for Preoccupation, positive for Suicidal Ideation (some, but less) and positive for Homicidal Ideation (denies) Depressive Symptoms: Increased Fatigue, Thoughts of /Suicide, Low Self Esteem, Loss of Energy and Difficulty Concentrating Judgement: Fair Diagnostics Vital Signs (24Hr): Vital Signs - 24 hr 02/22/22 16:04 02/23/22 06:38 Temperature 97.9 F 97 F Pulse Rate 98 89 Blood Pressure 126/69 149/83 H Pulse Oximetry 98 97 Oxygen Delivery Method Room Air BMI result Body Mass Index 26.6 Labs Results: 02/19/22 13:43 02/19/22 17:50 Imaging Radiology Impressions: ITS Impressions Ribs X-Ray 02/19/22 15:28 IMPRESSION: Unremarkable examination. Medications Medications Current Medications Acetaminophen (Acetaminophen 325 Mg Tablet) 650 mg PO Q6H PRN PRN Reason: Headache/Pain Mild Scale (1-3) Last Admin: 02/21/22 18:14 Dose: 650 mg Al Hydroxide/Mg Hydroxide (Magnesium Hydrox/Alum Hydrox 30 Ml Oral.Susp) 30 ml PO Q6H PRN PRN Reason: Heartburn/Nausea Bupropion HCl (Bupropion Hcl Xl 300 Mg Tab.Er.24h) 300 mg PO DAILY [facility] Last Admin: 02/23/22 08:51 Dose: 300 mg Bupropion HCl (Bupropion Hcl Xl 150 Mg Tab.Er.24h) 150 mg PO DAILY [facility] Last Admin: 02/23/22 08:51 Dose: 150 mg Hydroxyzine HCl (Hydroxyzine Hcl 25 Mg Tablet) 25 mg PO Q6H PRN PRN Reason: Anxiety Last Admin: 02/20/22 23:26 Dose: 25 mg Ibuprofen (Ibuprofen 600 Mg Tablet) 600 mg PO Q6H PRN PRN Reason: mod-severe pain Last Admin: 02/23/22 09:53 Dose: 600 mg Magnesium Hydroxide (Milk Of Magnesia 30 Ml Oral.Susp) 30 ml PO DAILY PRN PRN Reason: Constipation Metformin HCl (Metformin Hcl Er 500 Mg Tab.Er.24h) 1,000 mg PO BID [facility] Last Admin: 02/23/22 08:51 Dose: 1,000 mg Nicotine Polacrilex (Nicotine Polacrilex 2 Mg Gum) 4 mg BUCCAL Q2H PRN PRN Reason: Nicotine Cravings Risperidone (Risperidone 2 Mg Tablet) 2 mg PO BEDTIME [facility] Sitagliptin Phosphate (Sitagliptin Phosphate 50 Mg Tablet) 50 mg PO DAILY [facility] Last Admin: 02/23/22 08:51 Dose: 50 mg Trazodone HCl (Trazodone Hcl 50 Mg Tablet) 50 mg PO BEDTIME PRN PRN Reason: Insomnia Valsartan (Valsartan 80 Mg Tablet) 80 mg PO DAILY [facility]; Protocol Last Admin: 02/23/22 08:51 Dose: 80 mg Allergies Allergies Allergy/AdvReac Type Severity Reaction Status Date / Time codeine [CODEINE] Allergy Unknown delayed Verified 02/07/22 09:46 responses 02/24/17 Assessment & Plan Assessment & Plan (1) Depression: Status: Acute Code(s): F32.A - Depression, unspecified (2) Intentional overdose: Status: Acute Code(s): T50.902A - Poisoning by unspecified drugs, medicaments and biological substances, intentional self-harm, initial encounter Plan 56 yo male s/p overdose with intent to . Plan: Continue current regime Couples meeting next week ( is in [facility] caring for the couples grandson until that time) Collateral contact 02/22/22 Discontinue Abilify Risperdal 1 mg bid Couples meeting next week when returns from caring for their grandson. Pt made contact with work today and requested [facility] paperwork be sent for completion Collateral contact 02/23 changed Risperdal to 2 mg q.h.s. since patient complains of morning sedation following dose This will be a total of Risperdal 3 mg today; will consider increasing to 3 mg q.h.s. if needed. I spent minutes with the patient and/or on the patient floor today, greater than?50% of which was spent counseling/coordinating care. Patient educated on: medication risk/benefits Informed Consent: understands Reason for contiued inpatient stay Substantial Risk for: harm to self and rapid decompensation
[2022-02-23] MEDS: risperiDONE 2 MG TABLET PO (21:05)
--- NOTE | 2022-02-24 | ECG_ITS ---
Test Reason : chest pain Blood Pressure : / mmHG Vent. Rate : 099 BPM Atrial Rate : 099 BPM P-R Int : 150 ms QRS Dur : 138 ms QT Int : 382 ms P-R-T Axes : 044 031 220 degrees QTc Int : 490 ms Normal sinus rhythm Left ventricular hypertrophy with QRS widening and repolarization abnormality ( Brando product , Romhilt-Galvan ) Left bundle branch block Abnormal ECG When compared with ECG of 19-FEB-2022 15:57, Heart rate has increased Referred By: Gustavo Hay Electronically Signed By:JENARO DOWLING
--- NOTE | 2022-02-24 | ECG_ITS ---
Test Reason : chest pain Blood Pressure : / mmHG Vent. Rate : 080 BPM Atrial Rate : 080 BPM P-R Int : 158 ms QRS Dur : 140 ms QT Int : 428 ms P-R-T Axes : 047 032 080 degrees QTc Int : 493 ms Normal sinus rhythm Left bundle branch block Abnormal ECG When compared with ECG of 24-FEB-2022 11:19, Heart rate has decreased Referred By: Gustavo Hay Electronically Signed By:JENARO DOWLING
[2022-02-24 09:00] VITALS: BP 107/62; PULSE 104; TEMP 36.4
[2022-02-24] MEDS: SITagliptin Phosphate 50 MG TABLET PO (09:00)
[2022-02-24] MEDS: buPROPion HCl XL 300 MG TAB.ER.24H PO (09:13)
[2022-02-24] MEDS: Valsartan 80 MG TABLET PO (09:13)
[2022-02-24] MEDS: metFORMIN HCl ER 500 MG TAB.ER.24H 1000 MG PO ×2 (09:13→21:24)
[2022-02-24] MEDS: buPROPion HCl XL 150 MG TAB.ER.24H PO (09:13)
[2022-02-24] MEDS: Ibuprofen 600 MG TABLET PO (09:14)
[2022-02-24 11:21] VITALS: BP 184/101; PULSE 101; RESP 16; TEMP 36; O2SAT 100
[2022-02-24] MEDS: Aspirin 81 MG TAB.CHEW PO (11:27)
[2022-02-24] MEDS: Metoprolol Tartrate 25 MG TABLET PO ×2 (11:55→21:25)
[2022-02-24] MEDS: hydrOXYzine HCL 25 MG TABLET PO (11:56)
[2022-02-24 12:02] VITALS: BP 174/81; PULSE 99
--- NOTE | 2022-02-24 12:03 | HO.PSYCHPN ---
Subjective Subjective Date of Service: 02/24/22 Reason For Visit: Depression/SI Interim History: Patient woke up this morning and complained of chest pain; he said he did not think much of it but that it continued so he reported it. Also patient is hypertensive and tachycardic. Manager Infrastructure met with patient. He does not look in distress and sitting calmly. BP 184/104; HR 101. Cardiac: Tachycardic, but no arrhythmia appreciated. Lungs: CTA b/l. He reports Chest pain 4/10, started when he woke up, and is a consistent dull ache that radiates to left arm; does not radiate to Jaw; nothing makes better or worse; denies calf tenderness and none on palpation; No SOB; non diaphoretic. Denies any cardiac hx. Patient said a few years ago, he had a similar event but was with less pain and he thought he was having a heart attack but it was wheeled out to be anxiety. Manager Infrastructure ordered EKG, Trops ordered. BMP; CBC gave pt metoprolol 25mg and aspirin 81mg. Hospitalist consult placed and Dr. Landers came to assess patient. Wants to rule out further but thinks EKG is consistent with past EKGs. Ordered chest x-ray Ordered cardiac consult Mental Status Exam Mental Status Exam Patient Appearance: Appropriate Patient Orientation: Person, Place, Time and Situation Level of Consciousness: Appropriate and Alert Patient Behavior: Appropriate and Good Eye Contact Mood Description: Depressed and Anxious Affect Description: Constricted Patient Cognition Impaired: No Ability to Follow Directions: Fair Speech Pattern: Clear and Spontaneous Speech Memory Description: Episodic Impaired Hallucinations: None Delusions: Not Present Perceptual Disturbances: Depersonalization and Derealization Thought Process: Goal Oriented Thought Content: positive for Preoccupation, positive for Suicidal Ideation (some, but less) and positive for Homicidal Ideation (denies) Depressive Symptoms: Increased Fatigue, Thoughts of /Suicide, Low Self Esteem, Loss of Energy and Difficulty Concentrating Judgement: Fair Diagnostics Vital Signs (24Hr): Vital Signs - 24 hr 02/24/22 09:00 02/24/22 11:21 02/24/22 12:02 Temperature 97.6 F 96.8 F Pulse Rate 104 H 101 H 99 Respiratory Rate 16 Blood Pressure 107/62 184/101 H 174/81 H Pulse Oximetry 100 Oxygen Delivery Method Room Air BMI result Body Mass Index 26.6 Labs Results: 02/24/22 12:40 02/19/22 17:50 Imaging Radiology Impressions: ITS Impressions Ribs X-Ray 02/19/22 15:28 IMPRESSION: Unremarkable examination. Medications Medications Current Medications Acetaminophen (Acetaminophen 325 Mg Tablet) 650 mg PO Q6H PRN PRN Reason: Headache/Pain Mild Scale (1-3) Last Admin: 02/21/22 18:14 Dose: 650 mg Al Hydroxide/Mg Hydroxide (Magnesium Hydrox/Alum Hydrox 30 Ml Oral.Susp) 30 ml PO Q6H PRN PRN Reason: Heartburn/Nausea Bupropion HCl (Bupropion Hcl Xl 300 Mg Tab.Er.24h) 300 mg PO DAILY [facility] Last Admin: 02/24/22 09:13 Dose: 300 mg Bupropion HCl (Bupropion Hcl Xl 150 Mg Tab.Er.24h) 150 mg PO DAILY [facility] Last Admin: 02/24/22 09:13 Dose: 150 mg Hydroxyzine HCl (Hydroxyzine Hcl 25 Mg Tablet) 25 mg PO Q6H PRN PRN Reason: Anxiety Last Admin: 02/24/22 11:56 Dose: 25 mg Ibuprofen (Ibuprofen 600 Mg Tablet) 600 mg PO Q6H PRN PRN Reason: mod-severe pain Last Admin: 02/24/22 09:14 Dose: 600 mg Magnesium Hydroxide (Milk Of Magnesia 30 Ml Oral.Susp) 30 ml PO DAILY PRN PRN Reason: Constipation Metformin HCl (Metformin Hcl Er 500 Mg Tab.Er.24h) 1,000 mg PO BID [facility] Last Admin: 02/24/22 09:13 Dose: 1,000 mg Nicotine Polacrilex (Nicotine Polacrilex 2 Mg Gum) 4 mg BUCCAL Q2H PRN PRN Reason: Nicotine Cravings Risperidone (Risperidone 2 Mg Tablet) 2 mg PO BEDTIME [facility] Last Admin: 02/23/22 21:05 Dose: 2 mg Sitagliptin Phosphate (Sitagliptin Phosphate 50 Mg Tablet) 50 mg PO DAILY [facility] Last Admin: 02/24/22 09:00 Dose: 50 mg Trazodone HCl (Trazodone Hcl 50 Mg Tablet) 50 mg PO BEDTIME PRN PRN Reason: Insomnia Valsartan (Valsartan 80 Mg Tablet) 80 mg PO DAILY [facility]; Protocol Last Admin: 02/24/22 09:13 Dose: 80 mg Allergies Allergies Allergy/AdvReac Type Severity Reaction Status Date / Time codeine [CODEINE] Allergy Unknown delayed Verified 02/07/22 09:46 responses 02/24/17 Assessment & Plan Assessment & Plan (1) Depression: Status: Acute Code(s): F32.A - Depression, unspecified (2) Intentional overdose: Status: Acute Code(s): T50.902A - Poisoning by unspecified drugs, medicaments and biological substances, intentional self-harm, initial encounter Plan 56 yo male s/p overdose with intent to . Plan: Continue current regime Couples meeting next week ( is in [facility] caring for the couples grandson until that time) Collateral contact 02/22/22 Discontinue Abilify Risperdal 1 mg bid Couples meeting next week when returns from caring for their grandson. Pt made contact with work today and requested [facility] paperwork be sent for completion Collateral contact 02/23 changed Risperdal to 2 mg q.h.s. since patient complains of morning sedation following dose This will be a total of Risperdal 3 mg today; will consider increasing to 3 mg q.h.s. if needed. 02/24 Patient woke up this morning and complained of chest pain; he said he did not think much of it but that it continued so he reported it. Also patient is hypertensive and tachycardic. Manager Infrastructure met with patient. He does not look in distress and sitting calmly. BP 184/104; HR 101. Cardiac: Tachycardic, but no arrhythmia appreciated. Lungs: CTA b/l. He reports Chest pain 4/10, started when he woke up, and is a consistent dull ache that radiates to left arm; does not radiate to Jaw; nothing makes better or worse; denies calf tenderness and none on palpation; No SOB; non diaphoretic. Denies any cardiac hx. Patient said a few years ago, he had a similar event but was with less pain and he thought he was having a heart attack but it was wheeled out to be anxiety. gave pt metoprolol 25mg and aspirin 81mg. Manager Infrastructure ordered EKG, Trops: pending BMP; CBC Hospitalist consult placed and Dr. Landers came to assess patient. Wants to rule out further but thinks EKG is consistent with past EKGs. Ordered chest x-ray: pending Ordered cardiac consult: pending I spent minutes with the patient and/or on the patient floor today, greater than?50% of which was spent counseling/coordinating care. Patient educated on: medical condition Informed Consent: understands Reason for contiued inpatient stay Substantial Risk for: med/psych decompensation
[2022-02-24 12:46] LABS: MANUAL DIFF FLAG NO
[2022-02-24 12:50] LABS: Basophils Percent Auto 0.5 % (0-2); Eosinophils Absolute Auto 0.1 X10*3/uL (0.0-0.4); Eosinophils Percent Auto 1.6 % (0-4); Hematocrit 51.9 % (42.0-52.0); Hemoglobin 16.6 g/dl (14.0-18.0); Imm Gran Abs Auto 0.06 X10*3/uL (0.00-0.03); Imm Gran Pct Auto 0.8 % (0.0-0.4); Lymphocytes Absolute Auto 1.6 X10*3/uL (1.2-4.9); Lymphocytes Percent Auto 21.7 % (20-40); Mean Corpuscular Hemoglobin 28.2 pg (27.0-33.0); Mean Corpuscular Volume 88.1 fL (80.0-98.0); Monocytes Absolute Auto 0.6 X10*3/uL (0.1-1.2); Monocytes Percent Auto 8.1 % (2-11); Neutrophils Absolute Auto 4.9 x10*3/uL (2.0-8.3); Neutrophils Percent Auto 67.3 % (45-73); Platelet Count 238 X10*3/uL (160-400); Red Blood Count 5.89 X10*6/uL (4.60-5.80); White Blood Count 7.3 X10*3/uL (4.8-10.8)
--- NOTE | 2022-02-24 12:53 | PM.IMHP ---
History of Present Illness Date of Service: 02/24/22 Attending physician on admission: Gustavo Hay Chief Complaint: chest pain 56-year-old male with history of hypertension, diabetes, hyperlipidemia: Admitted to psych service because of depression and suicidal intent-medicine consult was called because of chest pain. Chest pain he described as crampy type, 10/21, he also said that he had arm pain before. Chest pain he described as constant type since this morning initially but when I ended the interview says the chest pain is resolved. Does not say any aggravated or relieving factors, not reproducible. Patient says that he had similar anxiety/depression situation-few years ago and that time also he was checked for cardiac chest pain but he was told that it was due to anxiety. Denies any new complaint shortness of breath or abdominal pain or fever or chills or nausea or vomiting Denies any cough Denies any weakness or numbness. PMhx: 1. Hypertension. 2. Hyperlipidemia. 3. Type 2 diabetes mellitus. 4. Depression. 5. Recurrent episodes of chest pain with a negative cardiac workup. 6. History of knee pain. Review of Systems Review of Systems: Yes all other systems are reviewed and are negative PMFSH Pertinent family history: Mother has hx of Social History Household Members: Spouse and Children Housing: House Do you presently have visiting nurse or other home services: No Patient Tobacco Use Status: Never used Tobacco Patient Given Instructions on How to Stop Smoking: No (non-smoker) Second Hand Smoke Exposure: No Use of substances other than those prescribed or required for medical reasons: Yes Substance Use Type: Marijuana Substance Use Frequency: Occasionally Last Used Substance: Weeks (ago) Last Used Substance Other:: Pt positive MANCIA for amphetamines Currently Displaying Signs/Symptoms of Drug Intoxication Withdrawal: No Any prior treatment program specific to substance use: No Have you been hit, kicked, punched, or otherwise hurt by someone within the past year? If so, by whom?: No Do you feel safe in your current relationship?: Yes Is there a partner from a previous relationship who is making you feel unsafe now?: No Are you made to feel afraid or neglected: No Spiritual Healthcare Practices: None Cheondoism Healthcare Practices: None Cultural Healthcare Practices: None Advance Directives: No Advance Directives Information Provided: No Advance Directives on File: No Healthcare Proxy: No Guardian: No Do you have thoughts of harming others: None Do you have a plan to hurt others: No Plan Recently lost weight without trying: Yes How much weight loss: 2-13 pounds Eating poorly because of decreased appetite: Yes Nutrition screen score: 4 Nutrition Risks: Difficulty swallowing and Poor intake 0-25% >4 days service: No Sexual orientation: Straight/Heterosexual Meds Allergies Allergy/AdvReac Type Severity Reaction Status Date / Time codeine [CODEINE] Allergy Unknown delayed Verified 02/07/22 09:46 responses 02/24/17 Active Medications: Current Medications Acetaminophen (Acetaminophen 325 Mg Tablet) 650 mg PO Q6H PRN PRN Reason: Headache/Pain Mild Scale (1-3) Last Admin: 02/21/22 18:14 Dose: 650 mg Al Hydroxide/Mg Hydroxide (Magnesium Hydrox/Alum Hydrox 30 Ml Oral.Susp) 30 ml PO Q6H PRN PRN Reason: Heartburn/Nausea Bupropion HCl (Bupropion Hcl Xl 300 Mg Tab.Er.24h) 300 mg PO DAILY [facility] Last Admin: 02/24/22 09:13 Dose: 300 mg Bupropion HCl (Bupropion Hcl Xl 150 Mg Tab.Er.24h) 150 mg PO DAILY [facility] Last Admin: 02/24/22 09:13 Dose: 150 mg Hydroxyzine HCl (Hydroxyzine Hcl 25 Mg Tablet) 25 mg PO Q6H PRN PRN Reason: Anxiety Last Admin: 02/24/22 11:56 Dose: 25 mg Ibuprofen (Ibuprofen 600 Mg Tablet) 600 mg PO Q6H PRN PRN Reason: mod-severe pain Last Admin: 02/24/22 09:14 Dose: 600 mg Magnesium Hydroxide (Milk Of Magnesia 30 Ml Oral.Susp) 30 ml PO DAILY PRN PRN Reason: Constipation Metformin HCl (Metformin Hcl Er 500 Mg Tab.Er.24h) 1,000 mg PO BID [facility] Last Admin: 02/24/22 09:13 Dose: 1,000 mg Nicotine Polacrilex (Nicotine Polacrilex 2 Mg Gum) 4 mg BUCCAL Q2H PRN PRN Reason: Nicotine Cravings Risperidone (Risperidone 2 Mg Tablet) 2 mg PO BEDTIME [facility] Last Admin: 02/23/22 21:05 Dose: 2 mg Sitagliptin Phosphate (Sitagliptin Phosphate 50 Mg Tablet) 50 mg PO DAILY [facility] Last Admin: 02/24/22 09:00 Dose: 50 mg Trazodone HCl (Trazodone Hcl 50 Mg Tablet) 50 mg PO BEDTIME PRN PRN Reason: Insomnia Valsartan (Valsartan 80 Mg Tablet) 80 mg PO DAILY [facility]; Protocol Last Admin: 02/24/22 09:13 Dose: 80 mg Home Medications Medication Instructions Recorded Confirmed Last Taken Type bupropion HCl 150 mg 24 hr tablet, 1 tab PO DAILY 12/08/21 02/19/22 02/19/22 History extended release bupropion HCl 300 mg 24 hr tablet, 1 tab PO DAILY 12/08/21 02/19/22 02/19/22 History extended release metformin 500 mg tablet,extended 2 tab PO BID 12/08/21 02/19/22 02/19/22 History release 24 hr sitagliptin 50 mg tablet (Januvia) 1 tab PO DAILY 12/08/21 02/19/22 02/19/22 History dulaglutide 1.5 mg/0.5 mL 1.5 mg subcut LUCIA@0900 12/17/21 02/19/22 Unknown History subcutaneous pen injector (Trulicity) valsartan 80 mg tablet 1 tab PO DAILY 02/19/22 02/19/22 02/19/22 History Physical Exam Vital Signs and Narrative: Vital Signs: Last Vital Signs Temp 96.8 F 02/24/22 11:21 Pulse 99 02/24/22 12:02 Resp 16 02/24/22 11:21 BP 174/81 H 02/24/22 12:02 Pulse Ox 100 02/24/22 11:21 O2 Del Method 02/24/22 11:21 BMI result Body Mass Index 26.6 Appearance: Alert.? Oriented X3.? not in distress.? Eyes: Pupils equal, round and reactive to light.? Sclera nonicteric.? ENT: Pharynx normal.? Moist mucous membranes. cvs: rrr, [id number]. res: clear to auscultation ,no rhonchii or wheezing abd: no rebound or guarding ,nt, bs present. ext pulses present , no cyanosis . neuro: axo3 , nonfocal. Results Labs CBC and Chem 7: 02/24/22 12:40 02/24/22 12:40 Labs: Laboratory Results - last 24 hr 02/24/22 12:40 MCV 88.1 MCH 28.2 MCHC 32.0 RDW 14.0 Plt Count 238 MPV 10.0 Immature Gran % (Auto) 0.8 H Neut % (Auto) 67.3 Lymph % (Auto) 21.7 [place] % (Auto) 8.1 Eos % (Auto) 1.6 Baso % (Auto) 0.5 Lymph # (Auto) 1.6 [place] # (Auto) 0.6 Eos # (Auto) 0.1 Baso # (Auto) 0.0 Abs Immat Gran (auto) 0.06 H Absolute Neuts (auto) 4.9 Absolute Nucleated RBC 0.000 Nucleated RBC % (auto) 0.0 ECG Attestation: I personally reviewed and interpreted this ECG as follows: (ekg seems similar to before lvh with repolaisation abnormalities-does not apprecaite any st evelations) Assessment and Plan (1) Chest pain: Status: Acute (2) HTN (hypertension): Status: Acute
[2022-02-24 13:23] LABS: Troponin-I High Sensitivity 4.2 ng/L (<3.5-35.0)
[2022-02-24 13:45] LABS: Anion Gap 16 (12-20); Blood Urea Nitrogen 18 mg/dL (9-16); Calcium 10.2 mg/dL (8.4-10.2); Carbon Dioxide 29 mmol/L (22-29); Chloride 102 mmol/L (96-108); Estimated Glomerular Filt Rate > 60; Glucose Random 141 mg/dL (60-115); Potassium 4.9 mmol/L (3.3-5.1); Sodium 142 mmol/L (135-145)
--- NOTE | 2022-02-24 15:40 | P.CNHOSGPS_ITS ---
History of Present Illness Data of Consult Service Date: 02/24/22 Primary Care Provider: Manpreet Tabares MD [facility] Reason for consult: chest pain 56-year-old male with history of hypertension, diabetes, hyperlipidemia:? Admitted to psych service because of depression and suicidal intent-medicine consult was called because of chest pain. Chest pain he described as crampy type, /, he also said that he had arm pain before. Chest pain he described as constant type since this morning initially but when I ended the interview says the chest pain is resolved. Does not say any aggravated or relieving factors, not reproducible. Patient says that he had similar anxiety/depression situation-few years ago and that time also he was checked for cardiac chest pain but he was told that it was due to anxiety. Denies any new complaint? shortness of breath or abdominal pain or fever or chills or nausea or vomiting Denies any cough Denies any weakness or numbness. PMhx: 1.? Hypertension. 2.? Hyperlipidemia. 3.? Type 2 diabetes mellitus. 4.? Depression. 5.? Recurrent episodes of chest pain with a negative cardiac workup. 6.? History of knee pain. Review of Systems Review of Systems: Yes all other systems are reviewed and are negative ENT: Reports Normal hearing present Neurologic: Reports Normal hearing present [facility] Social History Household Members: Spouse and Children Housing: House Do you presently have visiting nurse or other home services: No Patient Tobacco Use Status: Never used Tobacco Patient Given Instructions on How to Stop Smoking: No (non-smoker) Second Hand Smoke Exposure: No Use of substances other than those prescribed or required for medical reasons: Yes Substance Use Type: Marijuana Substance Use Frequency: Occasionally Last Used Substance: Weeks (ago) Last Used Substance Other:: Pt positive MANCIA for amphetamines Currently Displaying Signs/Symptoms of Drug Intoxication Withdrawal: No Any prior treatment program specific to substance use: No Have you been hit, kicked, punched, or otherwise hurt by someone within the past year? If so, by whom?: No Do you feel safe in your current relationship?: Yes Is there a partner from a previous relationship who is making you feel unsafe now?: No Are you made to feel afraid or neglected: No Spiritual Healthcare Practices: None Lutheran Healthcare Practices: None Cultural Healthcare Practices: None Advance Directives: No Advance Directives Information Provided: No Advance Directives on File: No Healthcare Proxy: No Guardian: No Do you have thoughts of harming others: None Do you have a plan to hurt others: No Plan Recently lost weight without trying: Yes How much weight loss: 2-13 pounds Eating poorly because of decreased appetite: Yes Nutrition screen score: 4 Nutrition Risks: Difficulty swallowing and Poor intake 0-25% >4 days service: No Sexual orientation: Straight/Heterosexual Meds Allergies Allergy/AdvReac Type Severity Reaction Status Date / Time codeine [CODEINE] Allergy Unknown delayed Verified 02/07/22 09:46 responses 02/24/17 Active Medications: Current Medications Acetaminophen (Acetaminophen 325 Mg Tablet) 650 mg PO Q6H PRN PRN Reason: Headache/Pain Mild Scale (1-3) Last Admin: 02/21/22 18:14 Dose: 650 mg Al Hydroxide/Mg Hydroxide (Magnesium Hydrox/Alum Hydrox 30 Ml Oral.Susp) 30 ml PO Q6H PRN PRN Reason: Heartburn/Nausea Atorvastatin Calcium (Atorvastatin Calcium 20 Mg Tablet) 20 mg PO ONCE ONE Stop: 02/24/22 15:37 Bupropion HCl (Bupropion Hcl Xl 300 Mg Tab.Er.24h) 300 mg PO DAILY [facility] Last Admin: 02/24/22 09:13 Dose: 300 mg Bupropion HCl (Bupropion Hcl Xl 150 Mg Tab.Er.24h) 150 mg PO DAILY [facility] Last Admin: 02/24/22 09:13 Dose: 150 mg Hydroxyzine HCl (Hydroxyzine Hcl 25 Mg Tablet) 25 mg PO Q6H PRN PRN Reason: Anxiety Last Admin: 02/24/22 11:56 Dose: 25 mg Ibuprofen (Ibuprofen 600 Mg Tablet) 600 mg PO Q6H PRN PRN Reason: mod-severe pain Last Admin: 02/24/22 09:14 Dose: 600 mg Magnesium Hydroxide (Milk Of Magnesia 30 Ml Oral.Susp) 30 ml PO DAILY PRN PRN Reason: Constipation Metformin HCl (Metformin Hcl Er 500 Mg Tab.Er.24h) 1,000 mg PO BID [facility] Last Admin: 02/24/22 09:13 Dose: 1,000 mg Metoprolol Tartrate (Metoprolol Tartrate 25 Mg Tablet) 25 mg PO BID [facility]; Protocol Nicotine Polacrilex (Nicotine Polacrilex 2 Mg Gum) 4 mg BUCCAL Q2H PRN PRN Reason: Nicotine Cravings Risperidone (Risperidone 2 Mg Tablet) 2 mg PO BEDTIME [facility] Last Admin: 02/23/22 21:05 Dose: 2 mg Sitagliptin Phosphate (Sitagliptin Phosphate 50 Mg Tablet) 50 mg PO DAILY [facility] Last Admin: 02/24/22 09:00 Dose: 50 mg Trazodone HCl (Trazodone Hcl 50 Mg Tablet) 50 mg PO BEDTIME PRN PRN Reason: Insomnia Valsartan (Valsartan 80 Mg Tablet) 80 mg PO DAILY [facility]; Protocol Last Admin: 02/24/22 09:13 Dose: 80 mg Home Medications Medication Instructions Recorded Confirmed Last Taken Type bupropion HCl 150 mg 24 hr tablet, 1 tab PO DAILY 12/08/21 02/19/22 02/19/22 History extended release bupropion HCl 300 mg 24 hr tablet, 1 tab PO DAILY 12/08/21 02/19/22 02/19/22 History extended release metformin 500 mg tablet,extended 2 tab PO BID 12/08/21 02/19/22 02/19/22 History release 24 hr sitagliptin 50 mg tablet (Januvia) 1 tab PO DAILY 12/08/21 02/19/22 02/19/22 History dulaglutide 1.5 mg/0.5 mL 1.5 mg subcut LUCIA@0900 12/17/21 02/19/22 Unknown History subcutaneous pen injector (Trulicity) valsartan 80 mg tablet 1 tab PO DAILY 02/19/22 02/19/22 02/19/22 History Results Labs CBC and Chem 7: 02/24/22 12:40 02/24/22 12:40 Labs: Laboratory Results - last 24 hr 02/24/22 02/24/22 12:40 12:40 MCV 88.1 MCH 28.2 MCHC 32.0 RDW 14.0 Plt Count 238 MPV 10.0 Immature Gran % (Auto) 0.8 H Neut % (Auto) 67.3 Lymph % (Auto) 21.7 [place] % (Auto) 8.1 Eos % (Auto) 1.6 Baso % (Auto) 0.5 Lymph # (Auto) 1.6 [place] # (Auto) 0.6 Eos # (Auto) 0.1 Baso # (Auto) 0.0 Abs Immat Gran (auto) 0.06 H Absolute Neuts (auto) 4.9 Absolute Nucleated RBC 0.000 Nucleated RBC % (auto) 0.0 Anion Gap 16 Estim Creat Clear Calc 95.0 Estimated GFR > 60 Random Glucose 141 H D Calcium 10.2 D ECG Attestation: I personally reviewed and interpreted this ECG as follows: (unchanged lvh with repolarisation abnormalities.) Imaging Radiologist's Impressions: Impressions Chest X-Ray 02/24/22 13:27 IMPRESSION: No evidence for acute disease in the chest. Assessment and Plan (1) HTN (hypertension): Status: Acute (2) Chest pain: Status: Acute Plan 56-year-old male with history of hypertension, diabetes, hyperlipidemia, admitted to psych because of depression suicidal intent- Hospital consult was for because of chest pain. 1. chest pain: Patient currently chest pain-free, EKG reviewed seems like LVH with repolarization abnormalities. Troponin negative patient was already given aspirin, metoprolol. if continue to have chest pain or elevated troponins -then may need further follow up and may consider cardiology eval. 2. hx of dm: dm diet fs with coverage 3. htn: flactuating, moniter cotninue valsartan given metoprolol Patient was on metoprolol in 2017, currently not showing up in his medical r ecord please try to get information from PCP. 4.depression: managemnt as per psych 5. Hlp: not on any meds consider adding statin if possible Patient was on statin in 2017, currently not showing up in his medical record please try to get information from PCP. Above management discussed with primary team in detail length. Physical Exam Vital Signs: Last Vital Signs Temp 96.8 F 02/24/22 11:21 Pulse 99 02/24/22 12:02 Resp 16 02/24/22 11:21 BP 174/81 H 02/24/22 12:02 Pulse Ox 100 02/24/22 11:21 O2 Del Method 02/24/22 11:21 BMI result Body Mass Index 26.6 Appearance: Alert.? Oriented X3.? not in distress.? Eyes: Pupils equal, round and reactive to light.? Sclera nonicteric.? ENT: Pharynx normal.? Moist mucous membranes. cvs: rrr, [id number]. res: clear to auscultation ,no rhonchii or wheezing abd: no rebound or guarding ,nt, bs present. ext pulses present , no cyanosis . neuro: axo3 , nonfocal. Eyes Pupils: Equal, round and reactive pupils present Neuro Cranial nerves: Yes CN's II-XII intact bilaterally, Yes Facial sensation intact/muscles of mastication intact, Yes Intact sense of smell present, Yes Equal, round and reactive pupils present, Yes Normal accommodation reflex present, Yes Bilaterally intact EOM present, Yes Nystagmus not present, Yes Normal facial strength present, Yes Midline tongue present, Yes Normal gag reflex present, Yes Symmetric palate elevation present and Yes Normal hearing present
--- NOTE | 2022-02-24 15:55 | PC.NURSE ---
At 11.15 pt reported to staff sudden onset chest pain 4/10 that radiated down left arm to elbow. V/S's showed as elevated, (see emar) pt did not appear in distress although reported feeling anxious, denied nausea, no diaphoresis noted, no SOB, breathing even and unlabored. SATS 100%. MD Dr Hay notified, ordered stat EKG and labs, med consult and cardiology consult ordered. ASA 81 mg and Metoprolol PO given, V/s decreased but remained elevated, see electronic chart. Dr Landers monitoring results.
[2022-02-24] MEDS: Atorvastatin Calcium 20 MG TABLET PO (16:21)
[2022-02-24 17:08] VITALS: BP 145/79; PULSE 77; RESP 16; O2SAT 99
[2022-02-24] MEDS: risperiDONE 2 MG TABLET PO (21:24)
[2022-02-24 21:26] VITALS: BP 145/77; PULSE 92
[2022-02-25] MEDS: hydrOXYzine HCL 25 MG TABLET PO (00:54)
[2022-02-25] MEDS: Ibuprofen 600 MG TABLET PO ×2 (00:54→22:07)
[2022-02-25 09:00] VITALS: BP 136/80; PULSE 76; RESP 18; TEMP 36.1; O2SAT 95
[2022-02-25] MEDS: Metoprolol Tartrate 25 MG TABLET PO ×2 (09:02→22:07)
[2022-02-25] MEDS: SITagliptin Phosphate 50 MG TABLET PO (09:02)
[2022-02-25] MEDS: metFORMIN HCl ER 500 MG TAB.ER.24H 1000 MG PO ×2 (09:02→22:06)
[2022-02-25] MEDS: buPROPion HCl XL 300 MG TAB.ER.24H PO (09:03)
[2022-02-25] MEDS: buPROPion HCl XL 150 MG TAB.ER.24H PO (09:03)
[2022-02-25] MEDS: Valsartan 80 MG TABLET PO (09:03)
--- NOTE | 2022-02-25 12:02 | PM.EVENT ---
Event Note Date of Service: 02/25/22 Event Note: Pt has not made contact with his employer and asked tw to make contact regarding FMLA. Call to Deirdre Woodard [phone], marine biologist who reports pt has exhausted his federal and state of [place] benefits. He may be able to use sick time, however at this time his job is not protected and he could be replaced. Deirdre Lucas will review this with pt's who reached out to her today as well. At this time, Deirdre Lucas reports no [place] [facility] [place].
--- NOTE | 2022-02-25 14:01 | PM.CNCAR ---
History of Present Illness History of Present Illness Date of Service: 02/25/22 Requesting physician: Cesia Almanzar Chief complaint: Depression/SI, CP Narrative: 56-year-old gentleman who is currently admitted to inpatient psychiatric facility for intentional overdose of sleep medicine. We have been asked to assess him because he was complaining of chest discomfort. It appears he has been experiencing chest pains for long time. I reviewed his record and he had cardiac catheterization done in 2016 where he was noted to have minimal coronary disease. He has risk factor for coronary artery disease including hypertension, hyperlipidemia and diabetes. He has been experiencing off and on chest discomfort randomly. 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 He has been quite anxious while he is in the hospital. He started noticing some left-sided chest discomfort which he describes as a squeezing sensation as well as left arm discomfort which at times has been up to the elbow but also at times involving the left hand. He said he tried to burp but pain did not improve. He also noted no changes in discomfort in his chest with walking and activity. His EKG has shown left bundle-branch block which is unchanged. High sensitive phone level is 4.2. [facility] Social History Social History Household Members: Spouse and Children Housing: House Do you presently have visiting nurse or other home services: No Patient Tobacco Use Status: Never used Tobacco Patient Given Instructions on How to Stop Smoking: No (non-smoker) Second Hand Smoke Exposure: No Use of substances other than those prescribed or required for medical reasons: Yes Substance Use Type: Marijuana Substance Use Frequency: Occasionally Last Used Substance: Weeks (ago) Last Used Substance Other:: Pt positive MANCIA for amphetamines Currently Displaying Signs/Symptoms of Drug Intoxication Withdrawal: No Any prior treatment program specific to substance use: No Have you been hit, kicked, punched, or otherwise hurt by someone within the past year? If so, by whom?: No Do you feel safe in your current relationship?: Yes Is there a partner from a previous relationship who is making you feel unsafe now?: No Are you made to feel afraid or neglected: No Spiritual Healthcare Practices: None Catholic Healthcare Practices: None Cultural Healthcare Practices: None Advance Directives: No Advance Directives Information Provided: No Advance Directives on File: No Healthcare Proxy: No Guardian: No Do you have thoughts of harming others: None Do you have a plan to hurt others: No Plan Recently lost weight without trying: Yes How much weight loss: 2-13 pounds Eating poorly because of decreased appetite: Yes Nutrition screen score: 4 Nutrition Risks: Difficulty swallowing and Poor intake 0-25% >4 days service: No Sexual orientation: Straight/Heterosexual Meds Allergies Allergy/AdvReac Type Severity Reaction Status Date / Time codeine [CODEINE] Allergy Unknown delayed Verified 02/07/22 09:46 responses 02/24/17 Active Medications: Current Medications Acetaminophen (Acetaminophen 325 Mg Tablet) 650 mg PO Q6H PRN PRN Reason: Headache/Pain Mild Scale (1-3) Last Admin: 02/21/22 18:14 Dose: 650 mg Al Hydroxide/Mg Hydroxide (Magnesium Hydrox/Alum Hydrox 30 Ml Oral.Susp) 30 ml PO Q6H PRN PRN Reason: Heartburn/Nausea Bupropion HCl (Bupropion Hcl Xl 300 Mg Tab.Er.24h) 300 mg PO DAILY [facility] Last Admin: 02/25/22 09:03 Dose: 300 mg Bupropion HCl (Bupropion Hcl Xl 150 Mg Tab.Er.24h) 150 mg PO DAILY [facility] Last Admin: 02/25/22 09:03 Dose: 150 mg Hydroxyzine HCl (Hydroxyzine Hcl 25 Mg Tablet) 25 mg PO Q6H PRN PRN Reason: Anxiety Last Admin: 02/25/22 00:54 Dose: 25 mg Ibuprofen (Ibuprofen 600 Mg Tablet) 600 mg PO Q6H PRN PRN Reason: mod-severe pain Last Admin: 02/25/22 00:54 Dose: 600 mg Magnesium Hydroxide (Milk Of Magnesia 30 Ml Oral.Susp) 30 ml PO DAILY PRN PRN Reason: Constipation Metformin HCl (Metformin Hcl Er 500 Mg Tab.Er.24h) 1,000 mg PO BID [facility] Last Admin: 02/25/22 09:02 Dose: 1,000 mg Metoprolol Tartrate (Metoprolol Tartrate 25 Mg Tablet) 25 mg PO BID [facility]; Protocol Last Admin: 02/25/22 09:02 Dose: 25 mg Nicotine Polacrilex (Nicotine Polacrilex 2 Mg Gum) 4 mg BUCCAL Q2H PRN PRN Reason: Nicotine Cravings Risperidone (Risperidone 2 Mg Tablet) 2 mg PO BEDTIME [facility] Last Admin: 02/24/22 21:24 Dose: 2 mg Sitagliptin Phosphate (Sitagliptin Phosphate 50 Mg Tablet) 50 mg PO DAILY [facility] Last Admin: 02/25/22 09:02 Dose: 50 mg Trazodone HCl (Trazodone Hcl 50 Mg Tablet) 50 mg PO BEDTIME PRN PRN Reason: Insomnia Valsartan (Valsartan 80 Mg Tablet) 80 mg PO DAILY [facility]; Protocol Last Admin: 02/25/22 09:03 Dose: 80 mg Home Medications Medication Instructions Recorded Confirmed Last Taken Type bupropion HCl 150 mg 24 hr tablet, 1 tab PO DAILY 12/08/21 02/19/22 02/19/22 History extended release bupropion HCl 300 mg 24 hr tablet, 1 tab PO DAILY 12/08/21 02/19/22 02/19/22 History extended release metformin 500 mg tablet,extended 2 tab PO BID 12/08/21 02/19/22 02/19/22 History release 24 hr sitagliptin 50 mg tablet (Januvia) 1 tab PO DAILY 12/08/21 02/19/22 02/19/22 History dulaglutide 1.5 mg/0.5 mL 1.5 mg subcut LUCIA@0900 12/17/21 02/19/22 Unknown History subcutaneous pen injector (Trulicity) valsartan 80 mg tablet 1 tab PO DAILY 02/19/22 02/19/22 02/19/22 History Physical Exam Vital Signs: Vital Signs: Last Vital Signs Temp 97.0 F 02/25/22 09:00 Pulse 76 02/25/22 09:00 Resp 18 02/25/22 09:00 BP 136/80 02/25/22 09:00 Pulse Ox 95 02/25/22 09:00 O2 Del Method 02/25/22 09:00 BMI result Body Mass Index 26.6 GENERAL APPEARANCE: in no acute distress. NECK: no carotid bruit, no jugular venous distention. SKIN: no suspicious lesions, warm and dry. HEART: no murmurs, regular rate and rhythm. LUNGS: clear to auscultation bilaterally. ABDOMEN: soft, nontender. EXTREMITIES: no edema. PERIPHERAL PULSES: equal. NEUROLOGIC: No gross deficits, AAO X 3 Objective Labs and Meds Result diagrams: 02/24/22 12:40 02/24/22 12:40 Assessment and Plan (1) Chest pain: Status: Acute Plan Pleasant 56-year-old gentleman who has background history of hypertension, hyperlipidemia, diabetes and chronic chest pains who is admitted with intentional overdose and suicidal ideation. He is currently in the inpatient psych facility. He developed chest pain while he was here. He has been quite anxious. Chest pain happens quite randomly and and there is no clear pattern to point toward ischemic heart disease. In any case he has risk factor for coronary disease. He has been ruled out. He has left bundle-branch block. He has not had any stress test in the recent past. Last ischemic evaluation was in 2016 which was a cardiac catheterization. Depending on how long he is in the hospital we will arrange a stress test for him. He is telling me that he is here till next Friday. If no significant GI issues then he can stay on baby aspirin 81 mg daily. Given diabetes he should be on statin therapy. Thank you for allowing me to participate in the care of your patient. Please feel free to contact me if you have any questions. Procedures Date of Service Date of Service: 02/25/22
--- NOTE | 2022-02-25 14:25 | PM.EVENT ---
Event Note Date of Service: 02/25/22 Event Note: Patient seen examined Denies any new complaint of chest pain or shortness of breath Physical exam: Unchanged from yesterday. Assessment plan please see my yesterday's note. Please follow cardiology recommendations, please try to get medication list from PCP. Above management discussed with primary psychiatric team in detail length, will sign off now.
--- NOTE | 2022-02-25 16:28 | P.PNPSI_ITS ---
Subjective Subjective Date of Service: 02/25/22 Reason For Visit: Depression/SI, CP Subjective Notes: Conditional Voluntary Healthcare Proxy: No Guardianship: No Medical Problems Affecting Mental Status: No Interim History: Juan Ramon reports no contact with family over the weekend. I need to look Rosina in the eye-I did not see this coming, I will need to talk with my son after I leave . Pt had not made contact with his employer on 02/22. Asked tw to call Deirdre Woodard [phone] who reports pt has exhausted his [employer] benefits federally and for the state of [place]. He does have sick time, however, his job is not protected and he could be replaced. Deirdre Lucas will review this with his . Pt accepted this news and will work with these limits. Discussed impulsivity of overdose today and lack of pre-planning and the response to the painful emotions fueling this action. Discussed family response and not being connected to them over the weekend. Discussed anger prior to overdose. Pt seen by cardiology and hospitalist services-hospitalist has signed off, cardiology is suggesting a stress test post discharge. Reports no chest pain today. Pt reports family plans vacation to being on 03/02-states he would like to go but will work with team on his current plan. Care review with Rosina. Family is available on 02/26 ~3-4pm via zoom. is not interested in vacation-pt she reports should just focus on his treatment, so he will not need re-admit after vacation. Rosina reports several emotions-pt has made no contact with family, no apology for his actions-family is feeling hurt by this. Pt discussed symptoms and possibly having sx of bipolar II. Education provided. Medication Compliance: Yes Side effects from medications: No Attending Groups: Intermittent Review of Systems Acute medical concerns: No Medical Review of Systems: unchanged Review of Systems Psychiatric: Reports anxiety, Reports depression, Reports difficulty concentrating, Reports hopelessness and Reports suicidal ideation (denies) Mental Status Exam Mental Status Exam Patient Appearance: Appropriate Patient Orientation: Person, Place, Time and Situation Level of Consciousness: Alert Patient Behavior: Appropriate, Talkative, Cooperative and Good Eye Contact Mood Description: Depressed Affect Description: Flat Patient Cognition Impaired: No Ability to Follow Directions: Good Speech Pattern: Spontaneous Speech Memory Description: Episodic Impaired Hallucinations: None Delusions: Not Present Perceptual Disturbances: Derealization Thought Process: Rumination Thought Content: positive for [place], positive for Perseveration and positive for Suicidal Ideation (denies today) Depressive Symptoms: Increased Anxiety, Increased Irritability and Thoughts of /Suicide (denies) Judgement: Fair Diagnostics Vital Signs (24Hr): Vital Signs - 24 hr 02/24/22 17:08 02/24/22 21:26 02/25/22 09:00 Temperature 97.0 F Pulse Rate 77 92 76 Respiratory Rate 16 18 Blood Pressure 145/79 H 145/77 H 136/80 Pulse Oximetry 99 95 Oxygen Delivery Method Room Air Room Air BMI result Body Mass Index 26.6 Labs Results: 02/24/22 12:40 02/24/22 12:40 Labs: Laboratory Results - last 48 hr 02/24/22 02/24/22 02/24/22 11:34 12:40 12:40 WBC 7.3 RBC 5.89 H Hgb 16.6 Hct 51.9 MCV 88.1 MCH 28.2 MCHC 32.0 RDW 14.0 Plt Count 238 MPV 10.0 Immature Gran % (Auto) 0.8 H Neut % (Auto) 67.3 Lymph % (Auto) 21.7 [place] % (Auto) 8.1 Eos % (Auto) 1.6 Baso % (Auto) 0.5 Lymph # (Auto) 1.6 [place] # (Auto) 0.6 Eos # (Auto) 0.1 Baso # (Auto) 0.0 Abs Immat Gran (auto) 0.06 H Absolute Neuts (auto) 4.9 Absolute Nucleated RBC 0.000 Nucleated RBC % (auto) 0.0 Sodium 142 Potassium 4.9 D Chloride 102 Carbon Dioxide 29 Anion Gap 16 BUN 18 H Creatinine 0.83 Estim Creat Clear Calc 95.0 Estimated GFR > 60 Random Glucose 141 H D Calcium 10.2 D Troponin I High Sens 4.2 Imaging Radiology Impressions: ITS Impressions Ribs X-Ray 02/19/22 15:28 IMPRESSION: Unremarkable examination. Chest X-Ray 02/24/22 13:27 IMPRESSION: No evidence for acute disease in the chest. Medications Medications Current Medications Acetaminophen (Acetaminophen 325 Mg Tablet) 650 mg PO Q6H PRN PRN Reason: Headache/Pain Mild Scale (1-3) Last Admin: 02/21/22 18:14 Dose: 650 mg Al Hydroxide/Mg Hydroxide (Magnesium Hydrox/Alum Hydrox 30 Ml Oral.Susp) 30 ml PO Q6H PRN PRN Reason: Heartburn/Nausea Bupropion HCl (Bupropion Hcl Xl 300 Mg Tab.Er.24h) 300 mg PO DAILY [facility] Last Admin: 02/25/22 09:03 Dose: 300 mg Bupropion HCl (Bupropion Hcl Xl 150 Mg Tab.Er.24h) 150 mg PO DAILY [facility] Last Admin: 02/25/22 09:03 Dose: 150 mg Hydroxyzine HCl (Hydroxyzine Hcl 25 Mg Tablet) 25 mg PO Q6H PRN PRN Reason: Anxiety Last Admin: 02/25/22 00:54 Dose: 25 mg Ibuprofen (Ibuprofen 600 Mg Tablet) 600 mg PO Q6H PRN PRN Reason: mod-severe pain Last Admin: 02/25/22 00:54 Dose: 600 mg Magnesium Hydroxide (Milk Of Magnesia 30 Ml Oral.Susp) 30 ml PO DAILY PRN PRN Reason: Constipation Metformin HCl (Metformin Hcl Er 500 Mg Tab.Er.24h) 1,000 mg PO BID [facility] Last Admin: 02/25/22 09:02 Dose: 1,000 mg Metoprolol Tartrate (Metoprolol Tartrate 25 Mg Tablet) 25 mg PO BID [facility]; Protocol Last Admin: 02/25/22 09:02 Dose: 25 mg Nicotine Polacrilex (Nicotine Polacrilex 2 Mg Gum) 4 mg BUCCAL Q2H PRN PRN Reason: Nicotine Cravings Risperidone (Risperidone 2 Mg Tablet) 2 mg PO BEDTIME [facility] Last Admin: 02/24/22 21:24 Dose: 2 mg Sitagliptin Phosphate (Sitagliptin Phosphate 50 Mg Tablet) 50 mg PO DAILY [facility] Last Admin: 02/25/22 09:02 Dose: 50 mg Trazodone HCl (Trazodone Hcl 50 Mg Tablet) 50 mg PO BEDTIME PRN PRN Reason: Insomnia Valsartan (Valsartan 80 Mg Tablet) 80 mg PO DAILY [facility]; Protocol Last Admin: 02/25/22 09:03 Dose: 80 mg Allergies Allergies Allergy/AdvReac Type Severity Reaction Status Date / Time codeine [CODEINE] Allergy Unknown delayed Verified 02/07/22 09:46 responses 02/24/17 Assessment & Plan Assessment & Plan (1) Depression: Status: Acute Code(s): F32.A - Depression, unspecified Assessment and Plan: 02/25/22- Continue current regime. Family meeting ?02/26/22 Full milieu participation encouraged (2) Intentional overdose: Status: Acute Code(s): T50.902A - Poisoning by unspecified drugs, medicaments and biological substances, intentional self-harm, initial encounter Plan Pleasant 56-year-old gentleman who has background history of hypertension, hyperlipidemia, diabetes and chronic chest pains who is admitted with intentional overdose and suicidal ideation. He is currently in the inpatient psych facility. He developed chest pain while he was here. He has been quite anxious. Chest pain happens quite randomly and and there is no clear pattern to point toward ischemic heart disease. In any case he has risk factor for coronary disease. He has been ruled out. He has left bundle-branch block. He has not had any stress test in the recent past. Last ischemic evaluation was in 2015 which was a cardiac catheterization. Depending on how long he is in the hospital we will arrange a stress test for him. He is telling me that he is here till next Friday. If no significant GI issues then he can stay on baby aspirin 81 mg daily. Given diabetes he should be on statin therapy. Thank you for allowing me to participate in the care of your patient. Please feel free to contact me if you have any questions. I spent minutes with the patient and/or on the patient floor today, greater than?50% of which was spent counseling/coordinating care. Patient educated on: medication risk/benefits, therapeutic strategies and medical condition Informed Consent: understands and further education needed Reason for contiued inpatient stay Substantial Risk for: harm to self, inability to function and rapid decompensation
--- NOTE | 2022-02-25 21:03 | PC.NURSE ---
Patient c/o discomfort to his left lateral foot and mentioned that he had a large callous that had been an open area and required antibiotics but was currently healed. He was concerned that the area was getting ready to open up and asked this clinical writer to check his foot. This clinical writer did note an area approximately 4 cm x 2 cm that had some calloused edges and healing skin. No erythema or drainage noted, skin was not hot to the touch and mildly sensitive to touch. Patient was encouraged to report any changes to staff.
[2022-02-25] MEDS: risperiDONE 2 MG TABLET PO (22:07)
[2022-02-26 08:37] VITALS: BP 122/72; PULSE 80; TEMP 36.4; O2SAT 97
[2022-02-26 09:04] LABS: Glucose, Whole Blood 141 mg/dL (60-115)
[2022-02-26] MEDS: Valsartan 80 MG TABLET PO (09:18)
[2022-02-26] MEDS: buPROPion HCl XL 150 MG TAB.ER.24H PO (09:19)
[2022-02-26] MEDS: metFORMIN HCl ER 500 MG TAB.ER.24H 1000 MG PO ×2 (09:19→20:25)
[2022-02-26] MEDS: SITagliptin Phosphate 50 MG TABLET PO (09:19)
[2022-02-26] MEDS: buPROPion HCl XL 300 MG TAB.ER.24H PO (09:19)
[2022-02-26] MEDS: Metoprolol Tartrate 25 MG TABLET PO ×2 (09:19→20:25)
[2022-02-26] MEDS: Ibuprofen 600 MG TABLET PO ×2 (12:17→20:25)
--- NOTE | 2022-02-26 17:01 | HO.PSYCHPN ---
Subjective Subjective Date of Service: 02/26/22 Reason For Visit: Depression/SI, CP Interim History: Patient says that I am better... I am feeling a little bit more positive... He says 1 thing that helped was a conversation with his and realizing that she is not angry at him but just concerned. He also says that he sleeping pretty well now. Thanks medications are working and wants to continue; no SI Mental Status Exam Mental Status Exam Patient Appearance: Appropriate Patient Orientation: Person, Place, Time and Situation Level of Consciousness: Alert Patient Behavior: Appropriate, Talkative, Cooperative and Good Eye Contact Mood Description: Calm Affect Description: Calm and Appropriate Patient Cognition Impaired: No Ability to Follow Directions: Good Speech Pattern: Clear and Spontaneous Speech Memory Description: Episodic Impaired Hallucinations: None Delusions: Not Present Perceptual Disturbances: Derealization Thought Process: Rumination Thought Content: positive for [place], positive for Perseveration, positive for Suicidal Ideation (denies) and positive for Homicidal Ideation (denies) Judgement: Fair Diagnostics Vital Signs (24Hr): Vital Signs - 24 hr 02/26/22 08:37 Temperature 97.6 F Pulse Rate 80 Blood Pressure 122/72 Pulse Oximetry 97 Oxygen Delivery Method Room Air BMI result Body Mass Index 26.6 Labs Results: 02/24/22 12:40 02/24/22 12:40 Labs: Laboratory Results - last 48 hr 02/26/22 08:59 POC Glucose 141 H Imaging Radiology Impressions: ITS Impressions Ribs X-Ray 02/19/22 15:28 IMPRESSION: Unremarkable examination. Chest X-Ray 02/24/22 13:27 IMPRESSION: No evidence for acute disease in the chest. Medications Medications Current Medications Acetaminophen (Acetaminophen 325 Mg Tablet) 650 mg PO Q6H PRN PRN Reason: Headache/Pain Mild Scale (1-3) Last Admin: 02/21/22 18:14 Dose: 650 mg Al Hydroxide/Mg Hydroxide (Magnesium Hydrox/Alum Hydrox 30 Ml Oral.Susp) 30 ml PO Q6H PRN PRN Reason: Heartburn/Nausea Bupropion HCl (Bupropion Hcl Xl 300 Mg Tab.Er.24h) 300 mg PO DAILY [facility] Last Admin: 02/26/22 09:19 Dose: 300 mg Bupropion HCl (Bupropion Hcl Xl 150 Mg Tab.Er.24h) 150 mg PO DAILY [facility] Last Admin: 02/26/22 09:19 Dose: 150 mg Hydroxyzine HCl (Hydroxyzine Hcl 25 Mg Tablet) 25 mg PO Q6H PRN PRN Reason: Anxiety Last Admin: 02/25/22 00:54 Dose: 25 mg Ibuprofen (Ibuprofen 600 Mg Tablet) 600 mg PO Q6H PRN PRN Reason: mod-severe pain Last Admin: 02/26/22 12:17 Dose: 600 mg Magnesium Hydroxide (Milk Of Magnesia 30 Ml Oral.Susp) 30 ml PO DAILY PRN PRN Reason: Constipation Metformin HCl (Metformin Hcl Er 500 Mg Tab.Er.24h) 1,000 mg PO BID [facility] Last Admin: 02/26/22 09:19 Dose: 1,000 mg Metoprolol Tartrate (Metoprolol Tartrate 25 Mg Tablet) 25 mg PO BID [facility]; Protocol Last Admin: 02/26/22 09:19 Dose: 25 mg Nicotine Polacrilex (Nicotine Polacrilex 2 Mg Gum) 4 mg BUCCAL Q2H PRN PRN Reason: Nicotine Cravings Risperidone (Risperidone 2 Mg Tablet) 2 mg PO BEDTIME [facility] Last Admin: 02/25/22 22:07 Dose: 2 mg Sitagliptin Phosphate (Sitagliptin Phosphate 50 Mg Tablet) 50 mg PO DAILY [facility] Last Admin: 02/26/22 09:19 Dose: 50 mg Trazodone HCl (Trazodone Hcl 50 Mg Tablet) 50 mg PO BEDTIME PRN PRN Reason: Insomnia Valsartan (Valsartan 80 Mg Tablet) 80 mg PO DAILY [facility]; Protocol Last Admin: 02/26/22 09:18 Dose: 80 mg Allergies Allergies Allergy/AdvReac Type Severity Reaction Status Date / Time codeine [CODEINE] Allergy Unknown delayed Verified 02/07/22 09:46 responses 02/24/17 Assessment & Plan Assessment & Plan (1) Depression: Status: Acute Code(s): F32.A - Depression, unspecified Assessment and Plan: 02/25/22- Continue current regime. Family meeting ?02/26/22 Full milieu participation encouraged (2) Intentional overdose: Status: Acute Code(s): T50.902A - Poisoning by unspecified drugs, medicaments and biological substances, intentional self-harm, initial encounter Plan 56 yo male s/p overdose with intent to . Plan: Continue current regime ? Couples meeting next week ( is in [facility] caring for the couples grandson until that time) ? Collateral contact 02/22/22 Discontinue Abilify ? Risperdal 1 mg bid ? Couples meeting next week when returns from caring for their grandson. ? Pt made contact with work today and requested [facility] paperwork be sent for completion ? Collateral contact 02/23 changed Risperdal to 2 mg q.h.s. since patient complains of morning sedation following dose This will be a total of Risperdal 3 mg today; will consider increasing to 3 mg q.h.s. if needed. 02/26 reports mood is better, sleeping better, no SI I spent minutes with the patient and/or on the patient floor today, greater than?50% of which was spent counseling/coordinating care. Patient educated on: medication risk/benefits Informed Consent: understands Reason for contiued inpatient stay Substantial Risk for: rapid decompensation
[2022-02-26] MEDS: risperiDONE 2 MG TABLET PO (20:25)
[2022-02-27 08:20] VITALS: BP 128/64; PULSE 76; RESP 17; TEMP 36.7; O2SAT 96
[2022-02-27] MEDS: buPROPion HCl XL 150 MG TAB.ER.24H PO (08:58)
[2022-02-27] MEDS: Valsartan 80 MG TABLET PO (08:58)
[2022-02-27] MEDS: SITagliptin Phosphate 50 MG TABLET PO (08:59)
[2022-02-27] MEDS: Metoprolol Tartrate 25 MG TABLET PO ×2 (08:59→19:34)
[2022-02-27] MEDS: metFORMIN HCl ER 500 MG TAB.ER.24H 1000 MG PO ×2 (08:59→19:33)
[2022-02-27] MEDS: buPROPion HCl XL 300 MG TAB.ER.24H PO (08:59)
[2022-02-27] MEDS: Ibuprofen 600 MG TABLET PO ×2 (09:01→21:26)
[2022-02-27] MEDS: Divalproex Sodium 250 MG TABLET.DR 125 MG PO ×2 (14:36→19:33)
[2022-02-27] MEDS: Magnesium Hydrox/Alum Hydrox 30 ML ORAL.SUSP PO (15:12)
[2022-02-27 15:20] LABS: Glucose, Whole Blood 245 mg/dL (60-115)
[2022-02-27 15:25] VITALS: BP 121/65; PULSE 86; RESP 17; TEMP 36.1; O2SAT 99
--- NOTE | 2022-02-27 16:00 | HO.PSYCHPN ---
Subjective Subjective Date of Service: 02/27/22 Reason For Visit: Depression/SI, CP Subjective Notes: Conditional Voluntary Healthcare Proxy: No Guardianship: No Medical Problems Affecting Mental Status: No Interim History: Discussion of moods, impulsivity, possibly sx of bipolar, bipolar II. Pt agrees to a mood stabilizer trial. Family meeting via Zoom with pt, Rosina, daughter Eliane, daughter Lashawn. Son is away in [place]. Discussed plan to trial new medications, begin to deal with anger, depression, impulsivity. Pt let family know he loved them but was in a tough space currently with several issues to deal with. Rosina stated pt had made some conscious decisions regarding his care-stopped meds after last discharge. Pt confronted by family about this-he did not have a rationale but stated that setting up meds was a struggle and self-harm to manage anger was a factor. Family report pt has ~4 months of Metformin in his closet-not adhering to DM POC. Pt discussed his fear that he had damaged his marriage and family relationships. Family responded that pt needs to show change and not talk about change. Pt discussed doing the bare minimum , becoming overwhelmed, angry and then impulsive. Discussed return to work, discussed relationships with family/ in the home. Medication Compliance: Yes Side effects from medications: No Attending Groups: Yes Review of Systems Acute medical concerns: No Review of Systems Psychiatric: Reports anxiety, Reports depression, Reports difficulty concentrating and Reports hopelessness Mental Status Exam Mental Status Exam Patient Appearance: Appropriate Patient Orientation: Person, Place, Time and Situation Level of Consciousness: Alert Patient Behavior: Talkative, Anxious and Good Eye Contact Mood Description: Depressed Affect Description: Flat Ability to Follow Directions: Good Speech Pattern: Spontaneous Speech Memory Description: Intact Hallucinations: None Delusions: Not Present Perceptual Disturbances: Depersonalization and Derealization Thought Process: Rumination Thought Content: positive for [place] Depressive Symptoms: Increased Anxiety, Increased Irritability, Loss of Int. in Activity, Feelings of Worthlessness, Hopelessness, Isolating-Friends/Family, Unhappiness, Increased Fatigue, Low Self Esteem, Loss of Energy and Difficulty Concentrating Judgement: Fair Diagnostics Vital Signs (24Hr): Vital Signs - 24 hr 02/27/22 08:20 02/27/22 15:25 Temperature 98.0 F 97.0 F Pulse Rate 76 86 Respiratory Rate 17 17 Blood Pressure 128/64 121/65 Pulse Oximetry 96 99 Oxygen Delivery Method Room Air Room Air BMI result Body Mass Index 26.6 Labs Results: 02/24/22 12:40 02/24/22 12:40 Labs: Laboratory Results - last 48 hr 02/26/22 02/27/22 08:59 15:14 POC Glucose 141 H 245 H Imaging Radiology Impressions: ITS Impressions Ribs X-Ray 02/19/22 15:28 IMPRESSION: Unremarkable examination. Chest X-Ray 02/24/22 13:27 IMPRESSION: No evidence for acute disease in the chest. Medications Medications Current Medications Acetaminophen (Acetaminophen 325 Mg Tablet) 650 mg PO Q6H PRN PRN Reason: Headache/Pain Mild Scale (1-3) Last Admin: 02/21/22 18:14 Dose: 650 mg Al Hydroxide/Mg Hydroxide (Magnesium Hydrox/Alum Hydrox 30 Ml Oral.Susp) 30 ml PO Q6H PRN PRN Reason: Heartburn/Nausea Last Admin: 02/27/22 15:12 Dose: 30 ml Bupropion HCl (Bupropion Hcl Xl 300 Mg Tab.Er.24h) 300 mg PO DAILY [facility] Last Admin: 02/27/22 08:59 Dose: 300 mg Bupropion HCl (Bupropion Hcl Xl 150 Mg Tab.Er.24h) 150 mg PO DAILY [facility] Last Admin: 02/27/22 08:58 Dose: 150 mg Divalproex Sodium (Divalproex Sodium 250 Mg Tablet.Dr) 125 mg PO TID [facility] Last Admin: 02/27/22 14:36 Dose: 125 mg Hydroxyzine HCl (Hydroxyzine Hcl 25 Mg Tablet) 25 mg PO Q6H PRN PRN Reason: Anxiety Last Admin: 02/25/22 00:54 Dose: 25 mg Ibuprofen (Ibuprofen 600 Mg Tablet) 600 mg PO Q6H PRN PRN Reason: mod-severe pain Last Admin: 02/27/22 09:01 Dose: 600 mg Magnesium Hydroxide (Milk Of Magnesia 30 Ml Oral.Susp) 30 ml PO DAILY PRN PRN Reason: Constipation Metformin HCl (Metformin Hcl Er 500 Mg Tab.Er.24h) 1,000 mg PO BID [facility] Last Admin: 02/27/22 08:59 Dose: 1,000 mg Metoprolol Tartrate (Metoprolol Tartrate 25 Mg Tablet) 25 mg PO BID [facility]; Protocol Last Admin: 02/27/22 08:59 Dose: 25 mg Nicotine Polacrilex (Nicotine Polacrilex 2 Mg Gum) 4 mg BUCCAL Q2H PRN PRN Reason: Nicotine Cravings Risperidone (Risperidone 2 Mg Tablet) 2 mg PO BEDTIME [facility] Last Admin: 02/26/22 20:25 Dose: 2 mg Sitagliptin Phosphate (Sitagliptin Phosphate 50 Mg Tablet) 50 mg PO DAILY [facility] Last Admin: 02/27/22 08:59 Dose: 50 mg Trazodone HCl (Trazodone Hcl 50 Mg Tablet) 50 mg PO BEDTIME PRN PRN Reason: Insomnia Valsartan (Valsartan 80 Mg Tablet) 80 mg PO DAILY [facility]; Protocol Last Admin: 02/27/22 08:58 Dose: 80 mg Allergies Allergies Allergy/AdvReac Type Severity Reaction Status Date / Time codeine [CODEINE] Allergy Unknown delayed Verified 02/07/22 09:46 responses 02/24/17 Assessment & Plan Assessment & Plan (1) Depression: Status: Acute Code(s): F32.A - Depression, unspecified Assessment and Plan: 02/25/22- Continue current regime. Family meeting ?02/26/22 Full milieu participation encouraged 02/27/22- Depakote 125 mg tid to address mood variability, impulsivity. Continue family work-s/p significant suicide attempt which has had significant effects on pt and family Discussed pt completing a writing exercise about his anger/precipitants/ reasons which he will work on [employer]. (2) Intentional overdose: Status: Acute Code(s): T50.902A - Poisoning by unspecified drugs, medicaments and biological substances, intentional self-harm, initial encounter Plan Pleasant 56-year-old gentleman who has background history of hypertension, hyperlipidemia, diabetes and chronic chest pains who is admitted with intentional overdose and suicidal ideation. He is currently in the inpatient psych facility. He developed chest pain while he was here. He has been quite anxious. Chest pain happens quite randomly and and there is no clear pattern to point toward ischemic heart disease. In any case he has risk factor for coronary disease. He has been ruled out. He has left bundle-branch block. He has not had any stress test in the recent past. Last ischemic evaluation was in 2016 which was a cardiac catheterization. Depending on how long he is in the hospital we will arrange a stress test for him. He is telling me that he is here till next Friday. If no significant GI issues then he can stay on baby aspirin 81 mg daily. Given diabetes he should be on statin therapy. Thank you for allowing me to participate in the care of your patient. Please feel free to contact me if you have any questions. I spent minutes with the patient and/or on the patient floor today, greater than?50% of which was spent counseling/coordinating care. Patient educated on: medication risk/benefits and therapeutic strategies Informed Consent: understands and further education needed Reason for contiued inpatient stay Substantial Risk for: harm to self, inability to function and rapid decompensation
[2022-02-27] MEDS: risperiDONE 2 MG TABLET PO (19:34)
[2022-02-27] MEDS: hydrOXYzine HCL 25 MG TABLET PO (23:57)
[2022-02-27] MEDS: traZODone HCL 50 MG TABLET PO (23:57)
[2022-02-28 07:00] VITALS: BMI 27.4
[2022-02-28] MEDS: Valsartan 80 MG TABLET PO (08:16)
[2022-02-28] MEDS: Divalproex Sodium 250 MG TABLET.DR 125 MG PO (08:17)
[2022-02-28] MEDS: buPROPion HCl XL 150 MG TAB.ER.24H PO (08:17)
[2022-02-28] MEDS: metFORMIN HCl ER 500 MG TAB.ER.24H 1000 MG PO ×2 (08:17→19:53)
[2022-02-28] MEDS: buPROPion HCl XL 300 MG TAB.ER.24H PO (08:17)
[2022-02-28] MEDS: SITagliptin Phosphate 50 MG TABLET PO (08:18)
[2022-02-28] MEDS: Metoprolol Tartrate 25 MG TABLET PO ×2 (08:18→19:53)
[2022-02-28 08:35] LABS: Glucose, Whole Blood 134 mg/dL (60-115)
[2022-02-28 08:37] VITALS: BP 128/67; PULSE 81; RESP 16; O2SAT 94
[2022-02-28] MEDS: Acetaminophen 325 MG TABLET 650 MG PO (13:10)
[2022-02-28 18:00] VITALS: BP 136/82; PULSE 79; RESP 16; TEMP 36.8; O2SAT 99
--- NOTE | 2022-02-28 18:19 | HO.PSYCHPN ---
Subjective Subjective Date of Service: 02/28/22 Reason For Visit: Depression/SI, CP Subjective Notes: Conditional Voluntary Healthcare Proxy: No Guardianship: No Medical Problems Affecting Mental Status: No Interim History: Review of pt's list of issues which precipitate anger, including where I am in my life, job , my emotional state , my , that I am so close to correction but am not ready. Pt and tw called pt's human resources technician at her request who reports she will fax a functional capacity form for completion. 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 The capacity form will be due on 03/06. Discussed new dosing of Depakote-will decrease to 125 mg bid as pt is feeling sedate. Family has brought Alem in for pt, however, he will need a refill as pharmacy will not accept doses picked up > 14 days. Discussed in team, nursing will contact family regarding this. Medication Compliance: Yes Side effects from medications: Yes (sedation today) Attending Groups: No Review of Systems Acute medical concerns: No Medical Review of Systems: unchanged Review of Systems Psychiatric: Reports anxiety, Reports depression, Reports difficulty concentrating and Reports hopelessness Mental Status Exam Mental Status Exam Patient Appearance: Appropriate Patient Orientation: Person, Place, Time and Situation Level of Consciousness: Alert Patient Behavior: Talkative, Anxious and Good Eye Contact Mood Description: Depressed Affect Description: Flat Ability to Follow Directions: Good Speech Pattern: Spontaneous Speech Memory Description: Intact Hallucinations: None Delusions: Not Present Perceptual Disturbances: Depersonalization and Derealization Thought Process: Rumination Thought Content: positive for Perseveration Depressive Symptoms: Increased Anxiety, Increased Irritability, Loss of Int. in Activity, Feelings of Worthlessness, Hopelessness, Isolating-Friends/Family, Unhappiness, Increased Fatigue, Low Self Esteem, Loss of Energy and Difficulty Concentrating Judgement: Fair Diagnostics Vital Signs (24Hr): Vital Signs - 24 hr 02/28/22 08:37 Pulse Rate 81 Respiratory Rate 16 Blood Pressure 128/67 Pulse Oximetry 94 Oxygen Delivery Method Room Air BMI result Body Mass Index 27.4 Labs Results: 02/24/22 12:40 02/24/22 12:40 Labs: Laboratory Results - last 48 hr 02/27/22 02/28/22 15:14 08:26 POC Glucose 245 H 134 H Imaging Radiology Impressions: ITS Impressions Ribs X-Ray 02/19/22 15:28 IMPRESSION: Unremarkable examination. Chest X-Ray 02/24/22 13:27 IMPRESSION: No evidence for acute disease in the chest. Medications Medications Current Medications Acetaminophen (Acetaminophen 325 Mg Tablet) 650 mg PO Q6H PRN PRN Reason: Headache/Pain Mild Scale (1-3) Last Admin: 02/28/22 13:10 Dose: 650 mg Al Hydroxide/Mg Hydroxide (Magnesium Hydrox/Alum Hydrox 30 Ml Oral.Susp) 30 ml PO Q6H PRN PRN Reason: Heartburn/Nausea Last Admin: 02/27/22 15:12 Dose: 30 ml Bupropion HCl (Bupropion Hcl Xl 300 Mg Tab.Er.24h) 300 mg PO DAILY [facility] Last Admin: 02/28/22 08:17 Dose: 300 mg Bupropion HCl (Bupropion Hcl Xl 150 Mg Tab.Er.24h) 150 mg PO DAILY [facility] Last Admin: 02/28/22 08:17 Dose: 150 mg Divalproex Sodium (Divalproex Sodium Sprinkles 125 Mg Cap.Spr) 125 mg PO BID [facility] Hydroxyzine HCl (Hydroxyzine Hcl 25 Mg Tablet) 25 mg PO Q6H PRN PRN Reason: Anxiety Last Admin: 02/27/22 23:57 Dose: 25 mg Ibuprofen (Ibuprofen 600 Mg Tablet) 600 mg PO Q6H PRN PRN Reason: mod-severe pain Last Admin: 02/27/22 21:26 Dose: 600 mg Magnesium Hydroxide (Milk Of Magnesia 30 Ml Oral.Susp) 30 ml PO DAILY PRN PRN Reason: Constipation Metformin HCl (Metformin Hcl Er 500 Mg Tab.Er.24h) 1,000 mg PO BID [facility] Last Admin: 02/28/22 08:17 Dose: 1,000 mg Metoprolol Tartrate (Metoprolol Tartrate 25 Mg Tablet) 25 mg PO BID [facility]; Protocol Last Admin: 02/28/22 08:18 Dose: 25 mg Nicotine Polacrilex (Nicotine Polacrilex 2 Mg Gum) 4 mg BUCCAL Q2H PRN PRN Reason: Nicotine Cravings Risperidone (Risperidone 2 Mg Tablet) 2 mg PO BEDTIME [facility] Last Admin: 02/27/22 19:34 Dose: 2 mg Sitagliptin Phosphate (Sitagliptin Phosphate 50 Mg Tablet) 50 mg PO DAILY [facility] Last Admin: 02/28/22 08:18 Dose: 50 mg Trazodone HCl (Trazodone Hcl 50 Mg Tablet) 50 mg PO BEDTIME PRN PRN Reason: Insomnia Last Admin: 02/27/22 23:57 Dose: 50 mg Valsartan (Valsartan 80 Mg Tablet) 80 mg PO DAILY [facility]; Protocol Last Admin: 02/28/22 08:16 Dose: 80 mg Allergies Allergies Allergy/AdvReac Type Severity Reaction Status Date / Time codeine [CODEINE] Allergy Unknown delayed Verified 02/07/22 09:46 responses 02/24/17 Assessment & Plan Assessment & Plan (1) Depression: Status: Acute Code(s): F32.A - Depression, unspecified Assessment and Plan: 02/25/22- Continue current regime. Family meeting ?02/26/22 Full milieu participation encouraged 02/27/22- Depakote 125 mg tid to address mood variability, impulsivity. Continue family work-s/p significant suicide attempt which has had significant effects on pt and family Discussed pt completing a writing exercise about his anger/precipitants/ reasons which he will work on [employer]. 02/28/22 Decrease Depakote to 125 mg bid (2) Intentional overdose: Status: Acute Code(s): T50.902A - Poisoning by unspecified drugs, medicaments and biological substances, intentional self-harm, initial encounter Plan Pleasant 56-year-old gentleman who has background history of hypertension, hyperlipidemia, diabetes and chronic chest pains who is admitted with intentional overdose and suicidal ideation. He is currently in the inpatient psych facility. He developed chest pain while he was here. He has been quite anxious. Chest pain happens quite randomly and and there is no clear pattern to point toward ischemic heart disease. In any case he has risk factor for coronary disease. He has been ruled out. He has left bundle-branch block. He has not had any stress test in the recent past. Last ischemic evaluation was in 2016 which was a cardiac catheterization. Depending on how long he is in the hospital we will arrange a stress test for him. He is telling me that he is here till next Friday. If no significant GI issues then he can stay on baby aspirin 81 mg daily. Given diabetes he should be on statin therapy. Thank you for allowing me to participate in the care of your patient. Please feel free to contact me if you have any questions. I spent minutes with the patient and/or on the patient floor today, greater than?50% of which was spent counseling/coordinating care. Patient educated on: medication risk/benefits and therapeutic strategies Informed Consent: understands and further education needed Reason for contiued inpatient stay Substantial Risk for: rapid decompensation
[2022-02-28] MEDS: risperiDONE 2 MG TABLET PO (19:53)
[2022-02-28] MEDS: Divalproex Sodium Sprinkles 125 MG CAP.DR.SPR PO (19:53)
[2022-03-01 06:00] VITALS: BP 126/67; PULSE 74; RESP 16; TEMP 36.3; O2SAT 97
[2022-03-01] MEDS: SITagliptin Phosphate 50 MG TABLET PO (08:43)
[2022-03-01] MEDS: buPROPion HCl XL 150 MG TAB.ER.24H PO (08:43)
[2022-03-01] MEDS: buPROPion HCl XL 300 MG TAB.ER.24H PO (08:43)
[2022-03-01] MEDS: Divalproex Sodium Sprinkles 125 MG CAP.DR.SPR PO ×2 (08:43→20:18)
[2022-03-01] MEDS: Valsartan 80 MG TABLET PO (08:43)
[2022-03-01] MEDS: Metoprolol Tartrate 25 MG TABLET PO ×2 (08:43→20:18)
[2022-03-01] MEDS: metFORMIN HCl ER 500 MG TAB.ER.24H 1000 MG PO ×2 (10:02→20:18)
[2022-03-01] MEDS: Ibuprofen 600 MG TABLET PO ×2 (10:04→22:06)
[2022-03-01 18:00] VITALS: BP 137/85; PULSE 85
[2022-03-01] MEDS: risperiDONE 2 MG TABLET PO (20:18)
[2022-03-01] MEDS: traZODone HCL 50 MG TABLET PO (22:06)
--- NOTE | 2022-03-02 | ECG_ITS ---
Test Reason : cp Blood Pressure : / mmHG Vent. Rate : 084 BPM Atrial Rate : 084 BPM P-R Int : 138 ms QRS Dur : 142 ms QT Int : 436 ms P-R-T Axes : 048 029 087 degrees QTc Int : 515 ms Normal sinus rhythm Left bundle branch block Abnormal ECG When compared with ECG of 24-FEB-2022 12:59, Nonspecific T wave abnormality now evident in Inferior leads Referred By: Clifton Castro Electronically Signed By:JENARO DOWLING
[2022-03-02] MEDS: buPROPion HCl XL 300 MG TAB.ER.24H PO (08:28)
[2022-03-02] MEDS: Valsartan 80 MG TABLET PO (08:28)
[2022-03-02] MEDS: Divalproex Sodium Sprinkles 125 MG CAP.DR.SPR PO ×2 (08:28→20:30)
[2022-03-02] MEDS: SITagliptin Phosphate 50 MG TABLET PO (08:28)
[2022-03-02] MEDS: Metoprolol Tartrate 25 MG TABLET PO ×2 (08:29→20:31)
[2022-03-02] MEDS: buPROPion HCl XL 150 MG TAB.ER.24H PO (08:29)
[2022-03-02] MEDS: metFORMIN HCl ER 500 MG TAB.ER.24H 1000 MG PO ×2 (08:29→20:30)
[2022-03-02 08:35] VITALS: BP 140/69; PULSE 70; RESP 18; TEMP 36.4; O2SAT 98
[2022-03-02] MEDS: Ibuprofen 600 MG TABLET PO ×2 (10:18→20:31)
[2022-03-02 17:11] VITALS: BP 116/68; PULSE 79; RESP 16; TEMP 36.8; O2SAT 96
[2022-03-02] MEDS: traZODone HCL 50 MG TABLET PO ×2 (20:31→23:33)
[2022-03-02] MEDS: risperiDONE 2 MG TABLET PO (20:31)
--- NOTE | 2022-03-02 21:12 | P.PNPSI_ITS ---
Subjective Subjective Date of Service: 03/02/22 Reason For Visit: Depression/SI, CP Interim History: Patient said he is feeling a little down today because his family is at [facility] and he is in the hospital. He said that been going on vacation together for decades and this is the 1st time he has not with them. He denies any SI. Patient complains of chest pain which is a 4/10 and been going on for hours as a dull ache, with some radiation down left arm. EKG same as before. Patient not in distress. 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 Who informs technical report writer that stress test is pending Mental Status Exam Mental Status Exam Patient Appearance: Appropriate Patient Orientation: Person, Place, Time and Situation Level of Consciousness: Alert Patient Behavior: Appropriate, Talkative, Cooperative and Good Eye Contact Mood Description: Depressed Affect Description: Constricted Patient Cognition Impaired: No Ability to Follow Directions: Good Speech Pattern: Clear and Spontaneous Speech Memory Description: Episodic Impaired Hallucinations: None Delusions: Not Present Perceptual Disturbances: Derealization Thought Process: Rumination Thought Content: positive for [place], positive for Perseveration, positive for Suicidal Ideation (denies) and positive for Homicidal Ideation (denies) Judgement: Fair Diagnostics Vital Signs (24Hr): Vital Signs - 24 hr 03/02/22 08:35 03/02/22 17:11 Temperature 97.5 F 98.2 F Pulse Rate 70 79 Respiratory Rate 18 16 Blood Pressure 140/69 H 116/68 Pulse Oximetry 98 96 Oxygen Delivery Method Room Air Room Air BMI result Body Mass Index 27.4 Labs Results: 02/24/22 12:40 02/24/22 12:40 Imaging Radiology Impressions: ITS Impressions Ribs X-Ray 02/19/22 15:28 IMPRESSION: Unremarkable examination. Chest X-Ray 02/24/22 13:27 IMPRESSION: No evidence for acute disease in the chest. Medications Medications Current Medications Acetaminophen (Acetaminophen 325 Mg Tablet) 650 mg PO Q6H PRN PRN Reason: Headache/Pain Mild Scale (1-3) Last Admin: 02/28/22 13:10 Dose: 650 mg Al Hydroxide/Mg Hydroxide (Magnesium Hydrox/Alum Hydrox 30 Ml Oral.Susp) 30 ml PO Q6H PRN PRN Reason: Heartburn/Nausea Last Admin: 02/27/22 15:12 Dose: 30 ml Bupropion HCl (Bupropion Hcl Xl 300 Mg Tab.Er.24h) 300 mg PO DAILY [facility] Last Admin: 03/02/22 08:28 Dose: 300 mg Bupropion HCl (Bupropion Hcl Xl 150 Mg Tab.Er.24h) 150 mg PO DAILY [facility] Last Admin: 03/02/22 08:29 Dose: 150 mg Divalproex Sodium (Divalproex Sodium Sprinkles 125 Mg Cap.) 125 mg PO BID [facility] Last Admin: 03/02/22 20:30 Dose: 125 mg Hydroxyzine HCl (Hydroxyzine Hcl 25 Mg Tablet) 25 mg PO Q6H PRN PRN Reason: Anxiety Last Admin: 02/27/22 23:57 Dose: 25 mg Ibuprofen (Ibuprofen 600 Mg Tablet) 600 mg PO Q6H PRN PRN Reason: mod-severe pain Last Admin: 03/02/22 20:31 Dose: 600 mg Magnesium Hydroxide (Milk Of Magnesia 30 Ml Oral.Susp) 30 ml PO DAILY PRN PRN Reason: Constipation Metformin HCl (Metformin Hcl Er 500 Mg Tab.Er.24h) 1,000 mg PO BID [facility] Last Admin: 03/02/22 20:30 Dose: 1,000 mg Metoprolol Tartrate (Metoprolol Tartrate 25 Mg Tablet) 25 mg PO BID [facility]; Protocol Last Admin: 03/02/22 20:31 Dose: 25 mg Nicotine Polacrilex (Nicotine Polacrilex 2 Mg Gum) 4 mg BUCCAL Q2H PRN PRN Reason: Nicotine Cravings Risperidone (Risperidone 2 Mg Tablet) 2 mg PO BEDTIME [facility] Last Admin: 03/02/22 20:31 Dose: 2 mg Sitagliptin Phosphate (Sitagliptin Phosphate 50 Mg Tablet) 50 mg PO DAILY [facility] Last Admin: 03/02/22 08:28 Dose: 50 mg Trazodone HCl (Trazodone Hcl 50 Mg Tablet) 50 mg PO BEDTIME PRN PRN Reason: Insomnia Last Admin: 03/02/22 20:31 Dose: 50 mg Valsartan (Valsartan 80 Mg Tablet) 80 mg PO DAILY [facility]; Protocol Last Admin: 03/02/22 08:28 Dose: 80 mg Allergies Allergies Allergy/AdvReac Type Severity Reaction Status Date / Time codeine [CODEINE] Allergy Unknown delayed Verified 02/07/22 09:46 responses 02/24/17 Assessment & Plan Assessment & Plan (1) Depression: Status: Acute Code(s): F32.A - Depression, unspecified Assessment and Plan: 02/25/22- Continue current regime. Family meeting ?02/26/22 Full milieu participation encouraged 02/27/22- Depakote 125 mg tid to address mood variability, impulsivity. Continue family work-s/p significant suicide attempt which has had significant effects on pt and family Discussed pt completing a writing exercise about his anger/precipitants/ reasons which he will work on [employer]. 02/28/22 Decrease Depakote to 125 mg bid (2) Intentional overdose: Status: Acute Code(s): T50.902A - Poisoning by unspecified drugs, medicaments and biological substances, intentional self-harm, initial encounter Plan Pleasant 56-year-old gentleman who has background history of hypertension, hyperlipidemia, diabetes and chronic chest pains who is admitted with intentional overdose and suicidal ideation. He is currently in the inpatient psych facility. He developed chest pain while he was here. He has been quite anxious. Chest pain happens quite randomly and and there is no clear pattern to point toward ischemic heart disease. In any case he has risk factor for coronary disease. He has been ruled out. He has left bundle-branch block. He has not had any stress test in the recent past. Last ischemic evaluation was in 2016 which was a cardiac catheterization. Depending on how long he is in the hospital we will arrange a stress test for him. He is telling me that he is here till next Friday. If no significant GI issues then he can stay on baby aspirin 81 mg daily. Given diabetes he should be on statin therapy. Thank you for allowing me to participate in the care of your patient. Please feel free to contact me if you have any questions. 03/02 Patient reports feeling depressed mood since he is missing vacation with family; no SI; continued consistent chest pain EKG same as before I spent minutes with the patient and/or on the patient floor today, greater than?50% of which was spent counseling/coordinating care. Patient educated on: diagnosis, medication risk/benefits and medical condition Informed Consent: understands Reason for contiued inpatient stay Substantial Risk for: rapid decompensation
--- NOTE | 2022-03-03 | CA_ITS ---
Acquisition Time: 2022-03-04 10:06:41 Total Exercise Time: 00:02:00 Test Indications: CP, LBBB Medications: SEE CHART Protocol: LEXISCAN Max HR: 083 BPM 50% of Pred: 163 BPM Max BP: 124/072 mmHG Max Work Load: 1.0 METS Pharmacological stress test with Lexiscan while sitting and not moving, with 4/10 left chest discomfort at baseline which remained unchanged during the test, without arrythmia, with normotensive response to injection, with nondiagnostic EKG for ischemia. In recovery he reported shortness of breath, feeling flushed and headache which was treated with Aminophylline 75mg IVP to reverse Lexiscan with resolution of symptom. Nuclear images pending. Test reviewed with Dr Garcia Referred By: Clifton Castro Overread By: WILTON CAMPOS
[2022-03-03 08:01] LABS: Glucose, Whole Blood 157 mg/dL (60-115)
[2022-03-03] MEDS: buPROPion HCl XL 300 MG TAB.ER.24H PO (08:24)
[2022-03-03] MEDS: SITagliptin Phosphate 50 MG TABLET PO (08:24)
[2022-03-03] MEDS: Divalproex Sodium Sprinkles 125 MG CAP.DR.SPR PO ×2 (08:24→21:40)
[2022-03-03] MEDS: buPROPion HCl XL 150 MG TAB.ER.24H PO (08:24)
[2022-03-03] MEDS: metFORMIN HCl ER 500 MG TAB.ER.24H 1000 MG PO ×2 (08:24→21:40)
[2022-03-03] MEDS: Valsartan 80 MG TABLET PO (08:24)
[2022-03-03] MEDS: Metoprolol Tartrate 25 MG TABLET PO ×2 (08:24→21:40)
[2022-03-03] MEDS: Ibuprofen 600 MG TABLET PO (08:28)
[2022-03-03 08:30] VITALS: BP 128/72; PULSE 74; RESP 18; TEMP 36.3; O2SAT 96
--- NOTE | 2022-03-03 15:39 | HO.PSYCHPN ---
Subjective Subjective Date of Service: 03/03/22 Reason For Visit: Depression/SI, CP Interim History: Patient says he is Not good For the same reasons as yesterday, that he is missing his family. He feels very negative towards himself about his decisions and his struggles. He says this is typical for him to blame himself; patient says he feels committed to only seeing the negative in himself. Nuclear Medicine Technician Used supportive therapy and discussed ways to approach negative thoughts; patient was willing to consider the possibility that he could at some point stop only looking looking for the bad in himself and forgive himself. Despite his down feelings, patient is present in the milieu and says he is trying to engage with others and process his feelings. No SI Mental Status Exam Mental Status Exam Patient Appearance: Appropriate Patient Orientation: Person, Place, Time and Situation Level of Consciousness: Alert Patient Behavior: Appropriate, Talkative, Cooperative and Good Eye Contact Mood Description: Depressed Affect Description: Constricted Patient Cognition Impaired: No Ability to Follow Directions: Good Speech Pattern: Clear and Spontaneous Speech Memory Description: Episodic Impaired Hallucinations: None Delusions: Not Present Perceptual Disturbances: Derealization Thought Process: Rumination Thought Content: positive for [place], positive for Perseveration, positive for Suicidal Ideation (denies) and positive for Homicidal Ideation (denies) Judgement: Fair Diagnostics Vital Signs (24Hr): Vital Signs - 24 hr 03/02/22 17:11 03/03/22 08:30 Temperature 98.2 F 97.4 F Pulse Rate 79 74 Respiratory Rate 16 18 Blood Pressure 116/68 128/72 Pulse Oximetry 96 96 Oxygen Delivery Method Room Air Room Air BMI result Body Mass Index 27.4 Labs Results: 02/24/22 12:40 02/24/22 12:40 Labs: Laboratory Results - last 48 hr 03/03/22 07:56 POC Glucose 157 H Imaging Radiology Impressions: ITS Impressions Ribs X-Ray 02/19/22 15:28 IMPRESSION: Unremarkable examination. Chest X-Ray 02/24/22 13:27 IMPRESSION: No evidence for acute disease in the chest. Medications Medications Current Medications Acetaminophen (Acetaminophen 325 Mg Tablet) 650 mg PO Q6H PRN PRN Reason: Headache/Pain Mild Scale (1-3) Last Admin: 02/28/22 13:10 Dose: 650 mg Al Hydroxide/Mg Hydroxide (Magnesium Hydrox/Alum Hydrox 30 Ml Oral.Susp) 30 ml PO Q6H PRN PRN Reason: Heartburn/Nausea Last Admin: 02/27/22 15:12 Dose: 30 ml Bupropion HCl (Bupropion Hcl Xl 300 Mg Tab.Er.24h) 300 mg PO DAILY [facility] Last Admin: 03/03/22 08:24 Dose: 300 mg Bupropion HCl (Bupropion Hcl Xl 150 Mg Tab.Er.24h) 150 mg PO DAILY [facility] Last Admin: 03/03/22 08:24 Dose: 150 mg Divalproex Sodium (Divalproex Sodium Sprinkles 125 Mg Cap.Dr.Spr) 125 mg PO BID [facility] Last Admin: 03/03/22 08:24 Dose: 125 mg Hydroxyzine HCl (Hydroxyzine Hcl 25 Mg Tablet) 25 mg PO Q6H PRN PRN Reason: Anxiety Last Admin: 02/27/22 23:57 Dose: 25 mg Ibuprofen (Ibuprofen 600 Mg Tablet) 600 mg PO Q6H PRN PRN Reason: mod-severe pain Last Admin: 03/03/22 08:28 Dose: 600 mg Magnesium Hydroxide (Milk Of Magnesia 30 Ml Oral.Susp) 30 ml PO DAILY PRN PRN Reason: Constipation Metformin HCl (Metformin Hcl Er 500 Mg Tab.Er.24h) 1,000 mg PO BID [facility] Last Admin: 03/03/22 08:24 Dose: 1,000 mg Metoprolol Tartrate (Metoprolol Tartrate 25 Mg Tablet) 25 mg PO BID [facility]; Protocol Last Admin: 03/03/22 08:24 Dose: 25 mg Nicotine Polacrilex (Nicotine Polacrilex 2 Mg Gum) 4 mg BUCCAL Q2H PRN PRN Reason: Nicotine Cravings Risperidone (Risperidone 2 Mg Tablet) 2 mg PO BEDTIME [facility] Last Admin: 03/02/22 20:31 Dose: 2 mg Sitagliptin Phosphate (Sitagliptin Phosphate 50 Mg Tablet) 50 mg PO DAILY [facility] Last Admin: 03/03/22 08:24 Dose: 50 mg Trazodone HCl (Trazodone Hcl 50 Mg Tablet) 50 mg PO BEDTIME PRN PRN Reason: Insomnia Last Admin: 03/02/22 23:33 Dose: 50 mg Valsartan (Valsartan 80 Mg Tablet) 80 mg PO DAILY [facility]; Protocol Last Admin: 03/03/22 08:24 Dose: 80 mg Allergies Allergies Allergy/AdvReac Type Severity Reaction Status Date / Time codeine [CODEINE] Allergy Unknown delayed Verified 02/07/22 09:46 responses 02/24/17 Assessment & Plan Assessment & Plan (1) Depression: Status: Acute Code(s): F32.A - Depression, unspecified Assessment and Plan: 02/25/22- Continue current regime. Family meeting ?02/26/22 Full milieu participation encouraged 02/27/22- Depakote 125 mg tid to address mood variability, impulsivity. Continue family work-s/p significant suicide attempt which has had significant effects on pt and family Discussed pt completing a writing exercise about his anger/precipitants/ reasons which he will work on [employer]. 02/28/22 Decrease Depakote to 125 mg bid (2) Intentional overdose: Status: Acute Code(s): T50.902A - Poisoning by unspecified drugs, medicaments and biological substances, intentional self-harm, initial encounter Plan Pleasant 56-year-old gentleman who has background history of hypertension, hyperlipidemia, diabetes and chronic chest pains who is admitted with intentional overdose and suicidal ideation. He is currently in the inpatient psych facility. He developed chest pain while he was here. He has been quite anxious. Chest pain happens quite randomly and and there is no clear pattern to point toward ischemic heart disease. In any case he has risk factor for coronary disease. He has been ruled out. He has left bundle-branch block. He has not had any stress test in the recent past. Last ischemic evaluation was in 2016 which was a cardiac catheterization. Depending on how long he is in the hospital we will arrange a stress test for him. He is telling me that he is here till next Friday. If no significant GI issues then he can stay on baby aspirin 81 mg daily. Given diabetes he should be on statin therapy. Thank you for allowing me to participate in the care of your patient. Please feel free to contact me if you have any questions. 03/02 Patient reports feeling depressed mood since he is missing vacation with family; no SI; continued consistent chest pain EKG same as before 03/03 no changes to current regimen I spent minutes with the patient and/or on the patient floor today, greater than?50% of which was spent counseling/coordinating care. Patient educated on: diagnosis and therapeutic strategies Informed Consent: understands Reason for contiued inpatient stay Substantial Risk for: rapid decompensation
[2022-03-03 15:58] VITALS: BP 133/77; PULSE 77; RESP 16; TEMP 36.6; O2SAT 96
[2022-03-03 21:30] VITALS: BP 152/72
[2022-03-03] MEDS: risperiDONE 2 MG TABLET PO (21:40)
[2022-03-04 06:00] VITALS: BP 127/72; PULSE 78; RESP 18; TEMP 36.1; O2SAT 98
[2022-03-04 06:36] LABS: Glucose, Whole Blood 126 mg/dL (60-115)
[2022-03-04] MEDS: buPROPion HCl XL 150 MG TAB.ER.24H PO (08:10)
[2022-03-04] MEDS: buPROPion HCl XL 300 MG TAB.ER.24H PO (08:10)
[2022-03-04] MEDS: Valsartan 80 MG TABLET PO (08:10)
[2022-03-04] MEDS: metFORMIN HCl ER 500 MG TAB.ER.24H 1000 MG PO ×2 (08:10→20:40)
[2022-03-04] MEDS: Ibuprofen 600 MG TABLET PO (08:11)
[2022-03-04] MEDS: SITagliptin Phosphate 50 MG TABLET PO (08:11)
[2022-03-04] MEDS: Metoprolol Tartrate 25 MG TABLET PO ×2 (08:11→20:40)
[2022-03-04] MEDS: Divalproex Sodium Sprinkles 125 MG CAP.DR.SPR PO (08:11)
--- NOTE | 2022-03-04 10:58 | PM.PNCARD ---
Subjective Subjective Date of Service: 03/04/22 Principal diagnosis: chest discomfort Interval history: Seen at 1030. Today he reports having a constant 4/10 muscle cramp feeling in his left chest. He is able to point to area and denies any aggrevating or alleviating factors. No associated symptoms. No sob, palpitations, dizziness. EKG shows SR, LBBB, which is not new. Having stress portion of his nuclear stress test today. Review of Systems Review of Systems as above Yes all other systems are reviewed and are negative Physical Exam Vital Signs: Last Vital Signs Temp 97 F 03/04/22 06:00 Pulse 78 03/04/22 06:00 Resp 18 03/04/22 06:00 BP 127/72 03/04/22 06:00 Pulse Ox 98 03/04/22 06:00 O2 Del Method 03/04/22 06:00 BMI result Body Mass Index 27.4 Const General: cooperative, healthy appearing, comfortable and no acute distress Orientation/consciousness: patient oriented x3 Neck Neck: Yes normal visual inspection and Yes no JVD Resp Effort & Inspection: normal respiratory effort Auscultation: clear to auscultation bilaterally, no crackles, no rales, no rhonchi and no wheezes Cardio Rate: regular rate Rhythm: regular rhythm Heart sounds: S1 normal heart sound present, S2 normal heart sound present, no gallops, no murmurs and no rubs Peripheral pulses: Peripheral pulses 2+ throughout Neuro General: patient oriented x3 Extrem General: Yes normal to inspection and No no pedal edema Psych Appearance: grossly normal Mental Status: mental status grossly normal Speech and movement: Normal speech and movement present Objective Labs and Meds Result diagrams: 02/24/22 12:40 02/24/22 12:40 Lab results: Laboratory Results - last 24 hr 03/04/22 06:31 POC Glucose 126 H Progress Note: A&P Assessment and plan (1) Chest pain: Status: Acute Assessment and Plan: Reports of left chest discomfort. Has been intermittent. Today describes it as continual, like a muscle cramp . Not worse with palpation or movement. He had cardiac cath 2015 with minimal CAD noted. Has cardiac risks of HTN, HLD, DM. EKG this past year has developed a LBBB. Present on EKGs this admit making EKG nondiagnostic for ischemia. Trop normal. Last echo 02/2017 had normal EF, no regional WMA. Nuclear stress test is being doing to eval for ischemia. Stress portion will be today, Rest images tomorrow. Continue on Valsartan and Metoprolol. We will follow. (2) HTN (hypertension): Status: Acute Assessment and Plan: Mostly controlled. Elevated readings at times this admit. Time Spent With Patient Time: Total time spent is greater than 50% in coordination of care (as documented) at patient's floor/unit and/or counseling patient: 20 Procedures Date of Service Date of Service: 03/04/22
--- NOTE | 2022-03-04 15:59 | P.CONWO_ITS ---
History of Present Illness Data of Consult Service Date: 03/04/22 Requesting physician: Cesia Almanzar Primary Care Provider: Manpreet Tabares MD HPI Reason for consult: left foot wound 56 year old male hospitalized for depression, SI, history of OD who carries comorbid diabetes. Was recently seen in the ED with pain, swelling and redness of the lateral foot, XR done and he was treated and released. No fever today, pain persists, never had diabetic shoes or custom orthotics. Thinks his HgA1c might be around 10. Nurse confirms. Denies warmth and streaking. Using a band aid with scant yellow drainage seen. Review of Systems Review of Systems: No fever or shortness of breath reported Yes all other systems are reviewed and are negative PMFSH Social History Household Members: Spouse and Children Housing: House Do you presently have visiting nurse or other home services: No Patient Tobacco Use Status: Never used Tobacco Patient Given Instructions on How to Stop Smoking: No (non-smoker) Second Hand Smoke Exposure: No Use of substances other than those prescribed or required for medical reasons: Yes Substance Use Type: Marijuana Substance Use Frequency: Occasionally Last Used Substance: Weeks (ago) Last Used Substance Other:: Pt positive MANCIA for amphetamines Currently Displaying Signs/Symptoms of Drug Intoxication Withdrawal: No Any prior treatment program specific to substance use: No Have you been hit, kicked, punched, or otherwise hurt by someone within the past year? If so, by whom?: No Do you feel safe in your current relationship?: Yes Is there a partner from a previous relationship who is making you feel unsafe now?: No Are you made to feel afraid or neglected: No Spiritual Healthcare Practices: None Roman Catholic Healthcare Practices: None Cultural Healthcare Practices: None Advance Directives: No Advance Directives Information Provided: No Advance Directives on File: No Healthcare Proxy: No Guardian: No Do you have thoughts of harming others: None Do you have a plan to hurt others: No Plan Recently lost weight without trying: Yes How much weight loss: 2-13 pounds Eating poorly because of decreased appetite: Yes Nutrition screen score: 4 Nutrition Risks: Difficulty swallowing and Poor intake 0-25% >4 days service: No Sexual orientation: Straight/Heterosexual Meds Allergies Allergy/AdvReac Type Severity Reaction Status Date / Time codeine [CODEINE] Allergy Unknown delayed Verified 02/07/22 09:46 responses 02/24/17 Active Medications: Current Medications Acetaminophen (Acetaminophen 325 Mg Tablet) 650 mg PO Q6H PRN PRN Reason: Headache/Pain Mild Scale (1-3) Last Admin: 02/28/22 13:10 Dose: 650 mg Al Hydroxide/Mg Hydroxide (Magnesium Hydrox/Alum Hydrox 30 Ml Oral.Susp) 30 ml PO Q6H PRN PRN Reason: Heartburn/Nausea Last Admin: 02/27/22 15:12 Dose: 30 ml Bupropion HCl (Bupropion Hcl Xl 300 Mg Tab.Er.24h) 300 mg PO DAILY [facility] Last Admin: 03/04/22 08:10 Dose: 300 mg Bupropion HCl (Bupropion Hcl Xl 150 Mg Tab.Er.24h) 150 mg PO DAILY [facility] Last Admin: 03/04/22 08:10 Dose: 150 mg Hydroxyzine HCl (Hydroxyzine Hcl 25 Mg Tablet) 25 mg PO Q6H PRN PRN Reason: Anxiety Last Admin: 02/27/22 23:57 Dose: 25 mg Ibuprofen (Ibuprofen 600 Mg Tablet) 600 mg PO Q6H PRN PRN Reason: mod-severe pain Last Admin: 03/04/22 08:11 Dose: 600 mg Magnesium Hydroxide (Milk Of Magnesia 30 Ml Oral.Susp) 30 ml PO DAILY PRN PRN Reason: Constipation Metformin HCl (Metformin Hcl Er 500 Mg Tab.Er.24h) 1,000 mg PO BID [facility] Last Admin: 03/04/22 08:10 Dose: 1,000 mg Metoprolol Tartrate (Metoprolol Tartrate 25 Mg Tablet) 25 mg PO BID [facility]; Protocol Last Admin: 03/04/22 08:11 Dose: 25 mg Mirtazapine (Mirtazapine 7.5 Mg Tablet) 7.5 mg PO BEDTIME [facility] Nicotine Polacrilex (Nicotine Polacrilex 2 Mg Gum) 4 mg BUCCAL Q2H PRN PRN Reason: Nicotine Cravings Risperidone (Risperidone 2 Mg Tablet) 2 mg PO BEDTIME [facility] Last Admin: 03/03/22 21:40 Dose: 2 mg Sitagliptin Phosphate (Sitagliptin Phosphate 50 Mg Tablet) 50 mg PO DAILY [facility] Last Admin: 03/04/22 08:11 Dose: 50 mg Trazodone HCl (Trazodone Hcl 50 Mg Tablet) 50 mg PO BEDTIME PRN PRN Reason: Insomnia Last Admin: 03/02/22 23:33 Dose: 50 mg Valsartan (Valsartan 80 Mg Tablet) 80 mg PO DAILY [facility]; Protocol Last Admin: 03/04/22 08:10 Dose: 80 mg Home Medications Medication Instructions Recorded Confirmed Last Taken Type bupropion HCl 150 mg 24 hr tablet, 1 tab PO DAILY 12/08/21 02/19/22 02/19/22 History extended release bupropion HCl 300 mg 24 hr tablet, 1 tab PO DAILY 12/08/21 02/19/22 02/19/22 History extended release metformin 500 mg tablet,extended 2 tab PO BID 12/08/21 02/19/22 02/19/22 History release 24 hr sitagliptin 50 mg tablet (Januvia) 1 tab PO DAILY 12/08/21 02/19/22 02/19/22 History dulaglutide 1.5 mg/0.5 mL 1.5 mg subcut LUCIA@0900 12/17/21 02/19/22 Unknown History subcutaneous pen injector (Trulicity) valsartan 80 mg tablet 1 tab PO DAILY 02/19/22 02/19/22 02/19/22 History Physical Exam Vital Signs and Narrative: Vital Signs: Last Vital Signs Temp 97 F 03/04/22 06:00 Pulse 78 03/04/22 06:00 Resp 18 03/04/22 06:00 BP 127/72 03/04/22 06:00 Pulse Ox 98 03/04/22 06:00 O2 Del Method 03/04/22 06:00 BMI result Body Mass Index 27.4 DP pulse palpable. No erythema or edema of the foot. No streaking or warmth. Suspect lateral cuneiform migration given prominence of lateral osseus str ucture, likely contributing to skin breakdown. Nonviable eschar is left in place. No expressible purulence. Areas of pink healthy tissue are seen beyond the eschar. Results Labs CBC and Chem 7: 02/24/22 12:40 02/24/22 12:40 Labs: Laboratory Results - last 24 hr 03/04/22 06:31 POC Glucose 126 H Assessment and Plan (1) Type 2 diabetes mellitus with foot ulcer: Status: Acute Plan 56-year-old male admitted as an inpatient for SI, depression with comorbid diabetes and lateral foot ulcer, chronic in nature. Recent x-ray is not convincing for bone infection. Recommend he see us in the wound clinic after discharge for debridement of the wound, proper dressing recommendations and offloading techniques. In the meantime, because drainage is scant and there are no obvious signs of infection, standard dressings with either telfa or Band-Aid will do until these discharged. No ointments please. Consider reconsult if any worsening wound integrity is observed. He can shower freely, keep it dry and replace the dressing as needed. We discussed the goal of reducing the hemogl obin A1c once his mental health issues are under better control. He can also use OTC felt or moleskin inside the shoe to offload the area after discharge if desired.
--- NOTE | 2022-03-04 16:02 | HO.PSYCHPN ---
Subjective Subjective Date of Service: 03/04/22 Reason For Visit: Depression/SI, CP Subjective Notes: Conditional Voluntary Healthcare Proxy: No Guardianship: No Medical Problems Affecting Mental Status: No Interim History: Pt in process of cardiac eval today. Discussed his weekend-continues with depression, SI, anger Family is away on vacation on the [facility]- pt is communicating with them daily but discussed resentment as he is not able to enjoy the vacation with them. Discussion of changes he needs to make (relationships with , children), change in his interpretation of people constantly criticizing him-discussed at length-will ask pt to review DBT distress tolerance module. Discussed how he listens and perceives others. Discussed strategies to help him with objective listening, boundaries with what others present in their mood affect and his choices of how to manage these. Discussed work-considering [facility] consult and will review [employer] 2021 book for ideas about different opportunities. Reports poor sleep. No benefit from Valproate. Discussed potential changes Trulicity re-ordered from pharmacy for pt today. Medication Compliance: Yes Side effects from medications: No Attending Groups: Intermittent Review of Systems Acute medical concerns: No Medical Review of Systems: unchanged Review of Systems Reports behavioral changes Psychiatric: Reports anxiety, Reports behavioral changes, Reports depression, Reports hopelessness, Reports irritability and Reports suicidal ideation Mental Status Exam Mental Status Exam Patient Appearance: Appropriate Patient Orientation: Person, Place, Time and Situation Level of Consciousness: Alert Patient Behavior: Appropriate, Talkative, Cooperative and Good Eye Contact Mood Description: Flat Affect Description: Flat Patient Cognition Impaired: No Ability to Follow Directions: Good Speech Pattern: Clear, Appropriate and Spontaneous Speech Memory Description: Intact Hallucinations: None Delusions: Not Present Thought Process: Rumination and Goal Oriented Thought Content: positive for Perseveration and positive for Suicidal Ideation Depressive Symptoms: Increased Irritability, Feelings of Worthlessness, Hopelessness, Increased Fatigue, Thoughts of /Suicide and Loss of Energy Judgement: Good Diagnostics Vital Signs (24Hr): Vital Signs - 24 hr 03/03/22 21:30 03/04/22 06:00 Temperature 97 F Pulse Rate 78 Respiratory Rate 18 Blood Pressure 152/72 H 127/72 Pulse Oximetry 98 Oxygen Delivery Method Room Air BMI result Body Mass Index 27.4 Labs Results: 02/24/22 12:40 02/24/22 12:40 Labs: Laboratory Results - last 48 hr 03/03/22 03/04/22 07:56 06:31 POC Glucose 157 H 126 H Imaging Radiology Impressions: ITS Impressions Ribs X-Ray 02/19/22 15:28 IMPRESSION: Unremarkable examination. Chest X-Ray 02/24/22 13:27 IMPRESSION: No evidence for acute disease in the chest. Medications Medications Current Medications Acetaminophen (Acetaminophen 325 Mg Tablet) 650 mg PO Q6H PRN PRN Reason: Headache/Pain Mild Scale (1-3) Last Admin: 02/28/22 13:10 Dose: 650 mg Al Hydroxide/Mg Hydroxide (Magnesium Hydrox/Alum Hydrox 30 Ml Oral.Susp) 30 ml PO Q6H PRN PRN Reason: Heartburn/Nausea Last Admin: 02/27/22 15:12 Dose: 30 ml Bupropion HCl (Bupropion Hcl Xl 300 Mg Tab.Er.24h) 300 mg PO DAILY [facility] Last Admin: 03/04/22 08:10 Dose: 300 mg Bupropion HCl (Bupropion Hcl Xl 150 Mg Tab.Er.24h) 150 mg PO DAILY [facility] Last Admin: 03/04/22 08:10 Dose: 150 mg Hydroxyzine HCl (Hydroxyzine Hcl 25 Mg Tablet) 25 mg PO Q6H PRN PRN Reason: Anxiety Last Admin: 02/27/22 23:57 Dose: 25 mg Ibuprofen (Ibuprofen 600 Mg Tablet) 600 mg PO Q6H PRN PRN Reason: mod-severe pain Last Admin: 03/04/22 08:11 Dose: 600 mg Magnesium Hydroxide (Milk Of Magnesia 30 Ml Oral.Susp) 30 ml PO DAILY PRN PRN Reason: Constipation Metformin HCl (Metformin Hcl Er 500 Mg Tab.Er.24h) 1,000 mg PO BID [facility] Last Admin: 03/04/22 08:10 Dose: 1,000 mg Metoprolol Tartrate (Metoprolol Tartrate 25 Mg Tablet) 25 mg PO BID [facility]; Protocol Last Admin: 03/04/22 08:11 Dose: 25 mg Mirtazapine (Mirtazapine 7.5 Mg Tablet) 7.5 mg PO BEDTIME [facility] Nicotine Polacrilex (Nicotine Polacrilex 2 Mg Gum) 4 mg BUCCAL Q2H PRN PRN Reason: Nicotine Cravings Risperidone (Risperidone 2 Mg Tablet) 2 mg PO BEDTIME [facility] Last Admin: 03/03/22 21:40 Dose: 2 mg Sitagliptin Phosphate (Sitagliptin Phosphate 50 Mg Tablet) 50 mg PO DAILY [facility] Last Admin: 03/04/22 08:11 Dose: 50 mg Trazodone HCl (Trazodone Hcl 50 Mg Tablet) 50 mg PO BEDTIME PRN PRN Reason: Insomnia Last Admin: 03/02/22 23:33 Dose: 50 mg Valsartan (Valsartan 80 Mg Tablet) 80 mg PO DAILY [facility]; Protocol Last Admin: 03/04/22 08:10 Dose: 80 mg Allergies Allergies Allergy/AdvReac Type Severity Reaction Status Date / Time codeine [CODEINE] Allergy Unknown delayed Verified 02/07/22 09:46 responses 02/24/17 Assessment & Plan Assessment & Plan (1) Chest pain: Status: Acute Code(s): R07.9 - Chest pain, unspecified Assessment and Plan: Reports of left chest discomfort. Has been intermittent. Today describes it as continual, like a muscle cramp . Not worse with palpation or movement. He had cardiac cath 2015 with minimal CAD noted. Has cardiac risks of HTN, HLD, DM. EKG this past year has developed a LBBB. Present on EKGs this admit making EKG nondiagnostic for ischemia. Trop normal. Last echo 02/2017 had normal EF, no regional WMA. Nuclear stress test is being doing to eval for ischemia. Stress portion will be today, Rest images tomorrow. Continue on Valsartan and Metoprolol. We will follow. (2) HTN (hypertension): Status: Acute Code(s): I10 - Essential (primary) hypertension Assessment and Plan: Mostly controlled. Elevated readings at times this admit. Plan 03/04/22- Discontinue Depakote Mirtazapine 7.5 mg hs Review DBT Distress Tolerance module with pt. I spent minutes with the patient and/or on the patient floor today, greater than?50% of which was spent counseling/coordinating care. Patient educated on: medication risk/benefits and therapeutic strategies Informed Consent: understands and further education needed Reason for contiued inpatient stay Substantial Risk for: harm to self, inability to function and rapid decompensation
[2022-03-04 18:00] VITALS: BP 161/78; PULSE 74; TEMP 36.2; O2SAT 99
[2022-03-04] MEDS: Mirtazapine 7.5 MG TABLET PO (20:42)
[2022-03-04] MEDS: risperiDONE 2 MG TABLET PO (20:49)
[2022-03-05 05:16] LABS: Glucose, Whole Blood 232 mg/dL (60-115)
[2022-03-05 08:00] VITALS: BP 138/75; PULSE 82; RESP 16; TEMP 36.3; O2SAT 97
[2022-03-05] MEDS: metFORMIN HCl ER 500 MG TAB.ER.24H 1000 MG PO ×2 (08:27→20:14)
[2022-03-05] MEDS: SITagliptin Phosphate 50 MG TABLET PO (08:28)
[2022-03-05] MEDS: buPROPion HCl XL 150 MG TAB.ER.24H PO (08:28)
[2022-03-05] MEDS: buPROPion HCl XL 300 MG TAB.ER.24H PO (08:28)
[2022-03-05] MEDS: Valsartan 80 MG TABLET PO (08:28)
[2022-03-05] MEDS: Metoprolol Tartrate 25 MG TABLET PO ×2 (08:28→20:14)
[2022-03-05 08:30] LABS: Creatinine Clr Calc Pharmacy 96.1; Estimated Glomerular Filt Rate > 60
--- NOTE | 2022-03-05 10:41 | P.PNPSI_ITS ---
Subjective Subjective Date of Service: 03/05/22 Reason For Visit: Depression/SI, CP Subjective Notes: Conditional Voluntary Healthcare Proxy: No Guardianship: No Medical Problems Affecting Mental Status: No Interim History: Juan Ramon reports completion of cardiac testing-nuclear stress test shows no ischemia, but does show reduced EF. This will be further evaluated in out patient. Chest pain is atypical, non-cardiac. He is to continue Valsartan and Metoprolol. Cardiology will follow as an out pt. Desi Martin has completed evaluation which is much appreciated. Pt today is tired, did not sleep well last evening with Remeron-will increase dosing to 15 mg tonight. Met with pt and Luis DEL RIO. Pt talking about anxiety regarding a return to work, returning home, working out issues with his family. Active in problem solving- plans no vacation until next year-will focus on his work and getting back into his schedule-acknowledged all of the sick time he needed to take this year and how he needs to make the job a priority. Reviewing career options, talking about interventions to improve his marriage and family relationships. Trulicity re- started at 1.5 mg per recommendation of Paul Camp of [facility]. Medication Compliance: Yes Side effects from medications: No Attending Groups: Intermittent Review of Systems Acute medical concerns: No Medical Review of Systems: unchanged Review of Systems Reports behavioral changes Psychiatric: Reports anxiety, Reports behavioral changes, Reports depression, Reports hopelessness, Reports irritability and Reports suicidal ideation Mental Status Exam Mental Status Exam Patient Appearance: Appropriate Patient Orientation: Person, Place, Time and Situation Level of Consciousness: Alert Patient Behavior: Appropriate, Talkative, Cooperative and Good Eye Contact Mood Description: Flat Affect Description: Flat Patient Cognition Impaired: No Ability to Follow Directions: Good Speech Pattern: Clear, Appropriate and Spontaneous Speech Memory Description: Intact Hallucinations: None Delusions: Not Present Thought Process: Rumination and Goal Oriented Thought Content: positive for Perseveration and positive for Suicidal Ideation Depressive Symptoms: Increased Irritability, Feelings of Worthlessness, Hopelessness, Increased Fatigue, Thoughts of /Suicide and Loss of Energy Judgement: Good Diagnostics Vital Signs (24Hr): Vital Signs - 24 hr 03/04/22 18:00 03/05/22 08:00 Temperature 97.1 F 97.3 F Pulse Rate 74 82 Respiratory Rate 16 Blood Pressure 161/78 H 138/75 Pulse Oximetry 99 97 Oxygen Delivery Method Room Air BMI result Body Mass Index 27.4 Labs Results: 02/24/22 12:40 03/05/22 07:51 Labs: Laboratory Results - last 48 hr 03/04/22 03/05/22 03/05/22 06:31 05:13 07:51 Creatinine 0.82 Estim Creat Clear Calc 96.1 Estimated GFR > 60 POC Glucose 126 H 232 H Imaging Radiology Impressions: ITS Impressions Ribs X-Ray 02/19/22 15:28 IMPRESSION: Unremarkable examination. Chest X-Ray 02/24/22 13:27 IMPRESSION: No evidence for acute disease in the chest. Medications Medications Current Medications Acetaminophen (Acetaminophen 325 Mg Tablet) 650 mg PO Q6H PRN PRN Reason: Headache/Pain Mild Scale (1-3) Last Admin: 02/28/22 13:10 Dose: 650 mg Al Hydroxide/Mg Hydroxide (Magnesium Hydrox/Alum Hydrox 30 Ml Oral.Susp) 30 ml PO Q6H PRN PRN Reason: Heartburn/Nausea Last Admin: 02/27/22 15:12 Dose: 30 ml Bupropion HCl (Bupropion Hcl Xl 300 Mg Tab.Er.24h) 300 mg PO DAILY [facility] Last Admin: 03/05/22 08:28 Dose: 300 mg Bupropion HCl (Bupropion Hcl Xl 150 Mg Tab.Er.24h) 150 mg PO DAILY [facility] Last Admin: 03/05/22 08:28 Dose: 150 mg Hydroxyzine HCl (Hydroxyzine Hcl 25 Mg Tablet) 25 mg PO Q6H PRN PRN Reason: Anxiety Last Admin: 02/27/22 23:57 Dose: 25 mg Ibuprofen (Ibuprofen 600 Mg Tablet) 600 mg PO Q6H PRN PRN Reason: mod-severe pain Last Admin: 03/04/22 08:11 Dose: 600 mg Magnesium Hydroxide (Milk Of Magnesia 30 Ml Oral.Susp) 30 ml PO DAILY PRN PRN Reason: Constipation Metformin HCl (Metformin Hcl Er 500 Mg Tab.Er.24h) 1,000 mg PO BID [facility] Last Admin: 03/05/22 08:27 Dose: 1,000 mg Metoprolol Tartrate (Metoprolol Tartrate 25 Mg Tablet) 25 mg PO BID [facility]; Protocol Last Admin: 03/05/22 08:28 Dose: 25 mg Mirtazapine (Mirtazapine 7.5 Mg Tablet) 7.5 mg PO BEDTIME [facility] Last Admin: 03/04/22 20:42 Dose: 7.5 mg Nicotine Polacrilex (Nicotine Polacrilex 2 Mg Gum) 4 mg BUCCAL Q2H PRN PRN Reason: Nicotine Cravings Non-Formulary Medication (Trulicity) 0.75 mg SUBCUT Q7D [facility] Risperidone (Risperidone 2 Mg Tablet) 2 mg PO BEDTIME [facility] Last Admin: 03/04/22 20:49 Dose: 2 mg Sitagliptin Phosphate (Sitagliptin Phosphate 50 Mg Tablet) 50 mg PO DAILY [facility] Last Admin: 03/05/22 08:28 Dose: 50 mg Trazodone HCl (Trazodone Hcl 50 Mg Tablet) 50 mg PO BEDTIME PRN PRN Reason: Insomnia Last Admin: 03/02/22 23:33 Dose: 50 mg Valsartan (Valsartan 80 Mg Tablet) 80 mg PO DAILY [facility]; Protocol Last Admin: 03/05/22 08:28 Dose: 80 mg Allergies Allergies Allergy/AdvReac Type Severity Reaction Status Date / Time codeine [CODEINE] Allergy Unknown delayed Verified 02/07/22 09:46 responses 02/24/17 Assessment & Plan Assessment & Plan (1) Chest pain: Status: Acute Code(s): R07.9 - Chest pain, unspecified Assessment and Plan: Reports of left chest discomfort. Has been intermittent. Today describes it as continual, like a muscle cramp . Not worse with palpation or movement. He had cardiac cath 2016 with minimal CAD noted. Has cardiac risks of HTN, HLD, DM. EKG this past year has developed a LBBB. Present on EKGs this admit making EKG n ondiagnostic for ischemia. Trop normal. Last echo 02/2017 had normal EF, no regional WMA. Nuclear stress test is being doing to eval for ischemia. Stress portion will be today, Rest images tomorrow. Continue on Valsartan and Metoprolol. We will follow. (2) HTN (hypertension): Status: Acute Code(s): I10 - Essential (primary) hypertension Assessment and Plan: Mostly controlled. Elevated readings at times this admit. Plan 03/04/22- Discontinue Depakote Mirtazapine 7.5 mg hs Review DBT Distress Tolerance module with pt. 03/05/22- Increase Mirtazapine to 15 mg HS I spent minutes with the patient and/or on the patient floor today, greater than?50% of which was spent counseling/coordinating care. Patient educated on: medication risk/benefits and therapeutic strategies Informed Consent: understands and further education needed Reason for contiued inpatient stay Substantial Risk for: harm to self, inability to function and rapid decompensation
--- NOTE | 2022-03-05 11:20 | PM.PNCARD ---
Subjective Subjective Date of Service: 03/05/22 Principal diagnosis: chest discomfort Interval history: Seen at 0900. Today he report ongoing muscle cramp discomfort in left chest region. Has been continual since yesterday with no change to severity. No aggrevating or alleviating factors. No associated symptoms. Denies sob, palpitations, dizsiness. Ambulating around unit. Had rest portion of nuclear stress test today. Review of Systems Review of Systems as above Physical Exam Vital Signs: Last Vital Signs Temp 97.3 F 03/05/22 08:00 Pulse 82 03/05/22 08:00 Resp 16 03/05/22 08:00 BP 138/75 03/05/22 08:00 Pulse Ox 97 03/05/22 08:00 O2 Del Method 03/05/22 08:00 BMI result Body Mass Index 27.4 Const General: cooperative, healthy appearing, comfortable and no acute distress Orientation/consciousness: patient oriented x3 Neck Neck: Yes normal visual inspection and Yes no JVD Resp Effort & Inspection: normal respiratory effort Auscultation: clear to auscultation bilaterally, no crackles, no rales, no rhonchi and no wheezes Cardio Rate: regular rate Rhythm: regular rhythm Heart sounds: S1 normal heart sound present, S2 normal heart sound present, no gallops, no murmurs and no rubs GI Inspection: Yes normal to inspection Neuro General: patient oriented x3 Extrem General: Yes normal to inspection and No no pedal edema Psych Appearance: grossly normal Mental Status: mental status grossly normal Speech and movement: Normal speech and movement present Objective Labs and Meds Result diagrams: 02/24/22 12:40 03/05/22 07:51 Lab results: Laboratory Results - last 24 hr 03/05/22 03/05/22 05:13 07:51 Creatinine 0.82 Estim Creat Clear Calc 96.1 Estimated GFR > 60 POC Glucose 232 H Imaging Radiologist's impression: Impressions Myocardial Perfusion Scan Nuc Med 03/05/22 08:15 Impression: 1. Myocardial perfusion imaging study shows likely normal myocardial perfusion. 2. Gated LVEF is 29% during stress, 48% during rest; visually appear higher. Correlate with echocardiogram. 3. Transient ischemic dilatation not present. EKG component of the test reported separately. Progress Note: A&P Assessment and plan (1) Chest pain: Status: Acute Assessment and Plan: Reports of left chest discomfort. Has been intermittent. He describes it as continual, like a muscle cramp . Not worse with palpation or movement. He had cardiac cath 2015 with minimal CAD noted. Has cardiac risks of HTN, HLD, DM. EKG this past year has developed a LBBB. Present on EKGs this admit making EKG nondiagnostic for ischemia. Trop normal. Last echo 02/2017 had normal EF, no regional WMA. Nuclear stress test completed today shows likely normal myocardial perfusion imaging, EF 29% with stress and 48% at rest, visually appears higher. Will plan for echocardiogram to further evaluate. This will be arranged as outpt. His chest discomfort is atypical for angina and most likely noncardiac. Continue on Valsartan and Metoprolol. These meds are for his HTN and are appropriate for neurohormonal modulation/ treatment of cardiomopathy. We will arrange for his outpt echo and cardiology follow up. (2) HTN (hypertension): Status: Acute Assessment and Plan: Mostly controlled. Elevated readings at times this admit. Continue current mgt. Time Spent With Patient Time: Total time spent is greater than 50% in coordination of care (as documented) at patient's floor/unit and/or counseling patient: 20 Procedures Date of Service Date of Service: 03/05/22
--- NOTE | 2022-03-05 14:17 | HE.PHANOTE ---
RE ALEJANDRINA 1 PEN BROUGHT IN TODAY 03/05 @ 2:17
[2022-03-05] MEDS: Ibuprofen 600 MG TABLET PO (14:30)
[2022-03-05 18:00] VITALS: BP 146/77; PULSE 82; RESP 16; TEMP 36.5; O2SAT 96
[2022-03-05] MEDS: risperiDONE 2 MG TABLET PO (20:14)
[2022-03-05] MEDS: Mirtazapine 15 MG TABLET PO (20:14)
[2022-03-06 08:01] LABS: Glucose, Whole Blood 113 mg/dL (60-115)
[2022-03-06] MEDS: buPROPion HCl XL 150 MG TAB.ER.24H PO (08:33)
[2022-03-06] MEDS: SITagliptin Phosphate 50 MG TABLET PO (08:33)
[2022-03-06] MEDS: Metoprolol Tartrate 25 MG TABLET PO ×2 (08:33→20:07)
[2022-03-06] MEDS: buPROPion HCl XL 300 MG TAB.ER.24H PO (08:33)
[2022-03-06] MEDS: metFORMIN HCl ER 500 MG TAB.ER.24H 1000 MG PO ×2 (08:33→20:07)
[2022-03-06] MEDS: Valsartan 80 MG TABLET PO (08:33)
[2022-03-06 08:35] VITALS: BP 148/78; PULSE 73; RESP 18; TEMP 36.3; O2SAT 93
[2022-03-06] MEDS: Ibuprofen 600 MG TABLET PO ×2 (15:40→20:07)
--- NOTE | 2022-03-06 16:21 | P.PNPSI_ITS ---
Subjective Subjective Date of Service: 03/06/22 Reason For Visit: Depression/SI, CP Subjective Notes: Conditional Voluntary Healthcare Proxy: No Guardianship: No Medical Problems Affecting Mental Status: No Interim History: Pt reports an increase in depressive symptoms and anger. Cardiac eval negative, ongoing eval continued in OP post discharge. Reports racing thoughts, feeling tired (sleeping during the day). Anger that he has missed the family vacation on [facility] and that he asked if they could have a long weekend in [place] as he missed vacation and she declined. Feeling like he may engage in self-destructive behaviors if sent home and make another attempt- they don't care anyway. Discussed distress tolerance skills-pt not yet ready to review handouts at this time he reports, as he is feeling tired. Medication Compliance: Yes Side effects from medications: No Attending Groups: Intermittent Review of Systems Acute medical concerns: No Medical Review of Systems: unchanged Review of Systems Reports behavioral changes Psychiatric: Reports abnormal sleep pattern, Reports behavioral changes, Reports depression, Reports difficulty concentrating, Reports hopelessness, Reports irritability, Reports anhedonia, Reports mood swings and Reports suicidal ideation Mental Status Exam Mental Status Exam Patient Appearance: Appropriate Patient Orientation: Person, Place, Time and Situation Level of Consciousness: Alert Patient Behavior: Appropriate, Talkative, Cooperative, Fatigued and Good Eye Contact Mood Description: Depressed, Angry and Flat Affect Description: Angry and Flat Patient Cognition Impaired: No Ability to Follow Directions: Good Speech Pattern: Clear, Appropriate, Monotone, Spontaneous Speech and Soft-Spoken Memory Description: Intact Hallucinations: None Delusions: Not Present Perceptual Disturbances: Depersonalization and Derealization Thought Process: Rumination and Goal Oriented Thought Content: positive for Perseveration and positive for Suicidal Ideation Depressive Symptoms: Increased Irritability, Feelings of Worthlessness, Hopelessness, Increased Fatigue, Thoughts of /Suicide and Loss of Energy Judgement: Good Diagnostics Vital Signs (24Hr): Vital Signs - 24 hr 03/05/22 18:00 03/06/22 08:35 Temperature 97.7 F 97.4 F Pulse Rate 82 73 Respiratory Rate 16 18 Blood Pressure 146/77 H 148/78 H Pulse Oximetry 96 93 Oxygen Delivery Method Room Air Room Air BMI result Body Mass Index 27.4 Labs Results: 02/24/22 12:40 03/05/22 07:51 Labs: Laboratory Results - last 48 hr 0803/05/22 03/06/22 05:13 07:51 07:55 Creatinine 0.82 Estim Creat Clear Calc 96.1 Estimated GFR > 60 POC Glucose 232 H 113 Imaging Radiology Impressions: ITS Impressions Ribs X-Ray 02/19/22 15:28 IMPRESSION: Unremarkable examination. Chest X-Ray 02/24/22 13:27 IMPRESSION: No evidence for acute disease in the chest. Myocardial Perfusion Scan Nuc Med 03/05/22 08:15 Impression: 1. Myocardial perfusion imaging study shows likely normal myocardial perfusion. 2. Gated LVEF is 29% during stress, 48% during rest; visually appear higher. Correlate with echocardiogram. 3. Transient ischemic dilatation not present. EKG component of the test reported separately. Medications Medications Current Medications Acetaminophen (Acetaminophen 325 Mg Tablet) 650 mg PO Q6H PRN PRN Reason: Headache/Pain Mild Scale (1-3) Last Admin: 02/28/22 13:10 Dose: 650 mg Al Hydroxide/Mg Hydroxide (Magnesium Hydrox/Alum Hydrox 30 Ml Oral.Susp) 30 ml PO Q6H PRN PRN Reason: Heartburn/Nausea Last Admin: 02/27/22 15:12 Dose: 30 ml Bupropion HCl (Bupropion Hcl Xl 300 Mg Tab.Er.24h) 300 mg PO DAILY [facility] Last Admin: 03/06/22 08:33 Dose: 300 mg Bupropion HCl (Bupropion Hcl Xl 150 Mg Tab.Er.24h) 150 mg PO DAILY [facility] Last Admin: 03/06/22 08:33 Dose: 150 mg Hydroxyzine HCl (Hydroxyzine Hcl 25 Mg Tablet) 25 mg PO Q6H PRN PRN Reason: Anxiety Last Admin: 02/27/22 23:57 Dose: 25 mg Ibuprofen (Ibuprofen 600 Mg Tablet) 600 mg PO Q6H PRN PRN Reason: mod-severe pain Last Admin: 03/06/22 15:40 Dose: 600 mg Magnesium Hydroxide (Milk Of Magnesia 30 Ml Oral.Susp) 30 ml PO DAILY PRN PRN Reason: Constipation Metformin HCl (Metformin Hcl Er 500 Mg Tab.Er.24h) 1,000 mg PO BID [facility] Last Admin: 03/06/22 08:33 Dose: 1,000 mg Metoprolol Tartrate (Metoprolol Tartrate 25 Mg Tablet) 25 mg PO BID [facility]; Protocol Last Admin: 03/06/22 08:33 Dose: 25 mg Mirtazapine (Mirtazapine 15 Mg Tablet) 15 mg PO BEDTIME [facility] Last Admin: 03/05/22 20:14 Dose: 15 mg Nicotine Polacrilex (Nicotine Polacrilex 2 Mg Gum) 4 mg BUCCAL Q2H PRN PRN Reason: Nicotine Cravings Non-Formulary Medication (Trulicity) 1.5 mg SUBCUT Q7D [facility] Last Admin: 03/06/22 08:34 Dose: Not Given Risperidone (Risperidone 2 Mg Tablet) 2 mg PO BEDTIME [facility] Last Admin: 03/05/22 20:14 Dose: 2 mg Sitagliptin Phosphate (Sitagliptin Phosphate 50 Mg Tablet) 50 mg PO DAILY [facility] Last Admin: 03/06/22 08:33 Dose: 50 mg Trazodone HCl (Trazodone Hcl 50 Mg Tablet) 50 mg PO BEDTIME PRN PRN Reason: Insomnia Last Admin: 03/02/22 23:33 Dose: 50 mg Valsartan (Valsartan 80 Mg Tablet) 80 mg PO DAILY [facility]; Protocol Last Admin: 03/06/22 08:33 Dose: 80 mg Allergies Allergies Allergy/AdvReac Type Severity Reaction Status Date / Time codeine [CODEINE] Allergy Unknown delayed Verified 02/07/22 09:46 responses 02/24/17 Assessment & Plan Assessment & Plan (1) Depression: Status: Acute Code(s): F32.A - Depression, unspecified Plan 03/04/22- Discontinue Depakote Mirtazapine 7.5 mg hs Review DBT Distress Tolerance module with pt. 03/05/22- Increase Mirtazapine to 15 mg HS 03/06/22- Continue current regime, encourage distress tolerance skill building I spent minutes with the patient and/or on the patient floor today, greater than?50% of which was spent counseling/coordinating care. Patient educated on: therapeutic strategies Informed Consent: further education needed Reason for contiued inpatient stay Substantial Risk for: harm to self, inability to function and rapid decompensation
[2022-03-06 18:00] VITALS: BP 137/68; PULSE 88; TEMP 36.7; O2SAT 95
[2022-03-06 20:01] VITALS: BP 149/73; PULSE 91
[2022-03-06] MEDS: Mirtazapine 15 MG TABLET PO (20:07)
[2022-03-06] MEDS: risperiDONE 2 MG TABLET PO (20:07)
[2022-03-07 06:00] VITALS: BP 159/78; PULSE 76; RESP 18; TEMP 36.1; O2SAT 96
[2022-03-07 07:00] VITALS: BMI 28.0
[2022-03-07] MEDS: Valsartan 80 MG TABLET PO (08:21)
[2022-03-07] MEDS: buPROPion HCl XL 150 MG TAB.ER.24H PO (08:21)
[2022-03-07] MEDS: metFORMIN HCl ER 500 MG TAB.ER.24H 1000 MG PO ×2 (08:21→20:44)
[2022-03-07] MEDS: buPROPion HCl XL 300 MG TAB.ER.24H PO (08:21)
[2022-03-07] MEDS: Metoprolol Tartrate 25 MG TABLET PO ×2 (08:21→20:45)
[2022-03-07] MEDS: SITagliptin Phosphate 50 MG TABLET PO (08:21)
[2022-03-07 09:50] LABS: Glucose, Whole Blood 117 mg/dL (60-115)
--- NOTE | 2022-03-07 15:44 | P.PNPSI_ITS ---
Subjective Subjective Date of Service: 03/07/22 Reason For Visit: Depression/SI, CP Subjective Notes: Conditional Voluntary Healthcare Proxy: No Guardianship: No Medical Problems Affecting Mental Status: No Interim History: Depressed, angry, feeling stuck, negative thoughts, SI, ruminative. Discussed anger with as she has declined planning a long weekend trip after discharge. Pt slept most of the day. Discussed Remeron-believes Depakote was a better choice-will return to Depakote 125 mg bid and discontinue Remeron. Review of distress tolerance interventions. Medication Compliance: Yes Side effects from medications: No Attending Groups: Intermittent Review of Systems Acute medical concerns: No Medical Review of Systems: unchanged Review of Systems Reports behavioral changes Psychiatric: Reports anxiety, Reports behavioral changes, Reports depression, Reports difficulty concentrating, Reports hopelessness, Reports irritability, Reports anhedonia, Reports mood swings and Reports suicidal ideation Mental Status Exam Mental Status Exam Patient Appearance: Appropriate Patient Orientation: Person, Place, Time and Situation Level of Consciousness: Alert Patient Behavior: Appropriate, Talkative, Cooperative, Fatigued and Good Eye Contact Mood Description: Depressed, Angry and Flat Affect Description: Angry and Flat Patient Cognition Impaired: No Ability to Follow Directions: Good Speech Pattern: Clear, Appropriate, Monotone, Spontaneous Speech and Soft-Spoken Memory Description: Intact Hallucinations: None Delusions: Not Present Perceptual Disturbances: Depersonalization and Derealization Thought Process: Rumination and Goal Oriented Thought Content: positive for Perseveration and positive for Suicidal Ideation Depressive Symptoms: Increased Irritability, Feelings of Worthlessness, Hopelessness, Increased Fatigue, Thoughts of /Suicide and Loss of Energy Judgement: Good Diagnostics Vital Signs (24Hr): Vital Signs - 24 hr 03/06/22 18:00 03/06/22 20:01 03/07/22 06:00 Temperature 98.1 F 96.9 F Pulse Rate 88 91 76 Respiratory Rate 18 Blood Pressure 137/68 149/73 H 159/78 H Pulse Oximetry 95 96 Oxygen Delivery Method Room Air BMI result Body Mass Index 28.0 Labs Results: 02/24/22 12:40 03/05/22 07:51 Labs: Laboratory Results - last 48 hr 03/06/22 03/07/22 07:55 09:46 POC Glucose 113 117 H Imaging Radiology Impressions: ITS Impressions Ribs X-Ray 02/19/22 15:28 IMPRESSION: Unremarkable examination. Chest X-Ray 02/24/22 13:27 IMPRESSION: No evidence for acute disease in the chest. Myocardial Perfusion Scan Nuc Med 03/05/22 08:15 Impression: 1. Myocardial perfusion imaging study shows likely normal myocardial perfusion. 2. Gated LVEF is 29% during stress, 48% during rest; visually appear higher. Correlate with echocardiogram. 3. Transient ischemic dilatation not present. EKG component of the test reported separately. Medications Medications Current Medications Acetaminophen (Acetaminophen 325 Mg Tablet) 650 mg PO Q6H PRN PRN Reason: Headache/Pain Mild Scale (1-3) Last Admin: 02/28/22 13:10 Dose: 650 mg Al Hydroxide/Mg Hydroxide (Magnesium Hydrox/Alum Hydrox 30 Ml Oral.Susp) 30 ml PO Q6H PRN PRN Reason: Heartburn/Nausea Last Admin: 02/27/22 15:12 Dose: 30 ml Bupropion HCl (Bupropion Hcl Xl 300 Mg Tab.Er.24h) 300 mg PO DAILY [facility] Last Admin: 03/07/22 08:21 Dose: 300 mg Bupropion HCl (Bupropion Hcl Xl 150 Mg Tab.Er.24h) 150 mg PO DAILY [facility] Last Admin: 03/07/22 08:21 Dose: 150 mg Divalproex Sodium (Divalproex Sodium 250 Mg Tablet.Dr) 125 mg PO BID [facility] Hydroxyzine HCl (Hydroxyzine Hcl 25 Mg Tablet) 25 mg PO Q6H PRN PRN Reason: Anxiety Last Admin: 02/27/22 23:57 Dose: 25 mg Ibuprofen (Ibuprofen 600 Mg Tablet) 600 mg PO Q6H PRN PRN Reason: mod-severe pain Last Admin: 03/06/22 20:07 Dose: 600 mg Magnesium Hydroxide (Milk Of Magnesia 30 Ml Oral.Susp) 30 ml PO DAILY PRN PRN Reason: Constipation Metformin HCl (Metformin Hcl Er 500 Mg Tab.Er.24h) 1,000 mg PO BID [facility] Last Admin: 03/07/22 08:21 Dose: 1,000 mg Metoprolol Tartrate (Metoprolol Tartrate 25 Mg Tablet) 25 mg PO BID [facility]; Protocol Last Admin: 03/07/22 08:21 Dose: 25 mg Nicotine Polacrilex (Nicotine Polacrilex 2 Mg Gum) 4 mg BUCCAL Q2H PRN PRN Reason: Nicotine Cravings Non-Formulary Medication (Trulicity) 1.5 mg SUBCUT Q7D [facility] Last Admin: 03/06/22 08:34 Dose: Not Given Risperidone (Risperidone 2 Mg Tablet) 2 mg PO BEDTIME [facility] Last Admin: 03/06/22 20:07 Dose: 2 mg Sitagliptin Phosphate (Sitagliptin Phosphate 50 Mg Tablet) 50 mg PO DAILY [facility] Last Admin: 03/07/22 08:21 Dose: 50 mg Trazodone HCl (Trazodone Hcl 50 Mg Tablet) 50 mg PO BEDTIME PRN PRN Reason: Insomnia Last Admin: 03/02/22 23:33 Dose: 50 mg Valsartan (Valsartan 80 Mg Tablet) 80 mg PO DAILY [facility]; Protocol Last Admin: 03/07/22 08:21 Dose: 80 mg Allergies Allergies Allergy/AdvReac Type Severity Reaction Status Date / Time codeine [CODEINE] Allergy Unknown delayed Verified 02/07/22 09:46 responses 02/24/17 Assessment & Plan Assessment & Plan (1) Depression: Status: Acute Code(s): F32.A - Depression, unspecified Plan 03/04/22- Discontinue Depakote Mirtazapine 7.5 mg hs Review DBT Distress Tolerance module with pt. 03/05/22- Increase Mirtazapine to 15 mg HS 03/07/22- Discontinue Mirtazapine Depakote 125 mg bid Will postpone discharge/return to work-pt angry and not prepared, SI persists. I spent minutes with the patient and/or on the patient floor today, greater than?50% of which was spent counseling/coordinating care. Patient educated on: therapeutic strategies Informed Consent: understands Reason for contiued inpatient stay Substantial Risk for: harm to self, inability to function and rapid decompensation
[2022-03-07 18:00] VITALS: BP 180/82; PULSE 82; RESP 18; TEMP 36.4; O2SAT 95
[2022-03-07] MEDS: Ibuprofen 600 MG TABLET PO (20:44)
[2022-03-07] MEDS: Divalproex Sodium 250 MG TABLET.DR 125 MG PO (20:45)
[2022-03-07] MEDS: risperiDONE 2 MG TABLET PO (20:47)
[2022-03-07] MEDS: hydrOXYzine HCL 25 MG TABLET PO (22:36)
[2022-03-07] MEDS: traZODone HCL 50 MG TABLET PO (22:36)
[2022-03-08 08:15] LABS: Glucose, Whole Blood 133 mg/dL (60-115)
[2022-03-08] MEDS: Divalproex Sodium 250 MG TABLET.DR 125 MG PO ×2 (09:23→20:55)
[2022-03-08] MEDS: buPROPion HCl XL 300 MG TAB.ER.24H PO (09:23)
[2022-03-08] MEDS: SITagliptin Phosphate 50 MG TABLET PO (09:23)
[2022-03-08] MEDS: buPROPion HCl XL 150 MG TAB.ER.24H PO (09:23)
[2022-03-08] MEDS: Metoprolol Tartrate 25 MG TABLET PO ×2 (09:23→20:55)
[2022-03-08] MEDS: Valsartan 80 MG TABLET PO (09:23)
[2022-03-08] MEDS: metFORMIN HCl ER 500 MG TAB.ER.24H 1000 MG PO ×2 (09:25→20:55)
[2022-03-08 09:28] VITALS: BP 127/74; PULSE 89; RESP 18; TEMP 36.4; O2SAT 97
--- NOTE | 2022-03-08 17:39 | P.PNPSI_ITS ---
Subjective Subjective Date of Service: 03/08/22 Reason For Visit: Depression/SI, CP Subjective Notes: Conditional Voluntary Healthcare Proxy: No Guardianship: No Medical Problems Affecting Mental Status: No Interim History: Isolative, spending much time in bed. Call to [facility]. Scheduled couples meeting 03/11 2:30pm. Rosina shares pt is angry with her and mean to her. Reports after his suicide attempt, she found a note from pt stating Marojrie, I hope you are happy now. This is the reason she declined to go with pt on a long weekend trip-she does not know what to expect from him due to this anger. Discussed with pt who has been in bed for most of the day with increase in depressive sx. Medication Compliance: Yes Side effects from medications: No Attending Groups: No Review of Systems Acute medical concerns: No Medical Review of Systems: unchanged Review of Systems Reports behavioral changes Psychiatric: Reports anxiety, Reports behavioral changes, Reports depression, Reports difficulty concentrating, Reports hopelessness, Reports irritability, Reports anhedonia, Reports mood swings and Reports suicidal ideation Mental Status Exam Mental Status Exam Patient Appearance: Appropriate Patient Orientation: Person, Place, Time and Situation Level of Consciousness: Alert Patient Behavior: Appropriate, Talkative, Cooperative, Fatigued and Good Eye Contact Mood Description: Depressed, Angry and Flat Affect Description: Angry and Flat Patient Cognition Impaired: No Ability to Follow Directions: Good Speech Pattern: Clear, Appropriate, Monotone, Spontaneous Speech and Soft-Spoken Memory Description: Intact Hallucinations: None Delusions: Not Present Perceptual Disturbances: Depersonalization and Derealization Thought Process: Rumination and Goal Oriented Thought Content: positive for Perseveration and positive for Suicidal Ideation Depressive Symptoms: Increased Irritability, Feelings of Worthlessness, Hopelessness, Increased Fatigue, Thoughts of /Suicide and Loss of Energy Judgement: Good Diagnostics Vital Signs (24Hr): Vital Signs - 24 hr 03/07/22 18:00 03/08/22 09:28 Temperature 97.5 F 97.6 F Pulse Rate 82 89 Respiratory Rate 18 18 Blood Pressure 180/82 H 127/74 Pulse Oximetry 95 97 Oxygen Delivery Method Room Air Room Air BMI result Body Mass Index 28.0 Labs Results: 02/24/22 12:40 03/05/22 07:51 Labs: Laboratory Results - last 48 hr 03/07/22 03/08/22 09:46 08:06 POC Glucose 117 H 133 H Imaging Radiology Impressions: ITS Impressions Ribs X-Ray 02/19/22 15:28 IMPRESSION: Unremarkable examination. Chest X-Ray 02/24/22 13:27 IMPRESSION: No evidence for acute disease in the chest. Myocardial Perfusion Scan Nuc Med 03/05/22 08:15 Impression: 1. Myocardial perfusion imaging study shows likely normal myocardial perfusion. 2. Gated LVEF is 29% during stress, 48% during rest; visually appear higher. Correlate with echocardiogram. 3. Transient ischemic dilatation not present. EKG component of the test reported separately. Medications Medications Current Medications Acetaminophen (Acetaminophen 325 Mg Tablet) 650 mg PO Q6H PRN PRN Reason: Headache/Pain Mild Scale (1-3) Last Admin: 02/28/22 13:10 Dose: 650 mg Al Hydroxide/Mg Hydroxide (Magnesium Hydrox/Alum Hydrox 30 Ml Oral.Susp) 30 ml PO Q6H PRN PRN Reason: Heartburn/Nausea Last Admin: 02/27/22 15:12 Dose: 30 ml Aripiprazole (Aripiprazole 5 Mg Tablet) 5 mg PO DAILY [facility] Bupropion HCl (Bupropion Hcl Xl 300 Mg Tab.Er.24h) 300 mg PO DAILY [facility] Last Admin: 03/08/22 09:23 Dose: 300 mg Bupropion HCl (Bupropion Hcl Xl 150 Mg Tab.Er.24h) 150 mg PO DAILY [facility] Last Admin: 03/08/22 09:23 Dose: 150 mg Divalproex Sodium (Divalproex Sodium 250 Mg Tablet.Dr) 125 mg PO BID [facility] Last Admin: 03/08/22 09:23 Dose: 125 mg Hydroxyzine HCl (Hydroxyzine Hcl 25 Mg Tablet) 25 mg PO Q6H PRN PRN Reason: Anxiety Last Admin: 03/07/22 22:36 Dose: 25 mg Ibuprofen (Ibuprofen 600 Mg Tablet) 600 mg PO Q6H PRN PRN Reason: mod-severe pain Last Admin: 03/07/22 20:44 Dose: 600 mg Magnesium Hydroxide (Milk Of Magnesia 30 Ml Oral.Susp) 30 ml PO DAILY PRN PRN Reason: Constipation Metformin HCl (Metformin Hcl Er 500 Mg Tab.Er.24h) 1,000 mg PO BID [facility] Last Admin: 03/08/22 09:25 Dose: 1,000 mg Metoprolol Tartrate (Metoprolol Tartrate 25 Mg Tablet) 25 mg PO BID [facility]; Protocol Last Admin: 03/08/22 09:23 Dose: 25 mg Nicotine Polacrilex (Nicotine Polacrilex 2 Mg Gum) 4 mg BUCCAL Q2H PRN PRN Reason: Nicotine Cravings Non-Formulary Medication (Trulicity) 1.5 mg SUBCUT Q7D [facility] Last Admin: 03/06/22 08:34 Dose: Not Given Sitagliptin Phosphate (Sitagliptin Phosphate 50 Mg Tablet) 50 mg PO DAILY [facility] Last Admin: 03/08/22 09:23 Dose: 50 mg Trazodone HCl (Trazodone Hcl 50 Mg Tablet) 50 mg PO BEDTIME PRN PRN Reason: Insomnia Last Admin: 03/07/22 22:36 Dose: 50 mg Valsartan (Valsartan 80 Mg Tablet) 80 mg PO DAILY [facility]; Protocol Last Admin: 03/08/22 09:23 Dose: 80 mg Allergies Allergies Allergy/AdvReac Type Severity Reaction Status Date / Time codeine [CODEINE] Allergy Unknown delayed Verified 02/07/22 09:46 responses 02/24/17 Assessment & Plan Assessment & Plan (1) Depression: Status: Acute Code(s): F32.A - Depression, unspecified Plan 03/04/22- Discontinue Depakote Mirtazapine 7.5 mg hs Review DBT Distress Tolerance module with pt. 03/05/22- Increase Mirtazapine to 15 mg HS 03/07/22- Discontinue Mirtazapine Depakote 125 mg bid Will postpone discharge/return to work-pt angry and not prepared, SI persists. 03/08/22 Abilify 5 mg a.m. Discontinue Risperdal Couples meeting 03/11 2:30pm I spent minutes with the patient and/or on the patient floor today, greater than?50% of which was spent counseling/coordinating care. Patient educated on: therapeutic strategies Informed Consent: further education needed Reason for contiued inpatient stay Substantial Risk for: harm to self, inability to function and rapid decompensation
[2022-03-08 20:39] VITALS: BP 131/78; PULSE 86
[2022-03-09] MEDS: traZODone HCL 50 MG TABLET PO ×2 (00:26→22:09)
[2022-03-09] MEDS: hydrOXYzine HCL 25 MG TABLET PO (00:26)
[2022-03-09] MEDS: Divalproex Sodium 250 MG TABLET.DR 125 MG PO (09:39)
[2022-03-09] MEDS: buPROPion HCl XL 150 MG TAB.ER.24H PO (09:40)
[2022-03-09] MEDS: ARIPiprazole 5 MG TABLET PO (09:40)
[2022-03-09] MEDS: SITagliptin Phosphate 50 MG TABLET PO (09:40)
[2022-03-09] MEDS: Valsartan 80 MG TABLET PO (09:40)
[2022-03-09] MEDS: Metoprolol Tartrate 25 MG TABLET PO ×2 (09:40→20:44)
[2022-03-09] MEDS: buPROPion HCl XL 300 MG TAB.ER.24H PO (09:40)
[2022-03-09] MEDS: metFORMIN HCl ER 500 MG TAB.ER.24H 1000 MG PO ×2 (09:40→20:44)
[2022-03-09 09:42] VITALS: BP 125/82; PULSE 86; RESP 20; TEMP 36.2; O2SAT 97
[2022-03-09 18:00] VITALS: BP 128/80; PULSE 86; RESP 18; TEMP 36.6; O2SAT 97
--- NOTE | 2022-03-09 20:27 | HO.PSYCHPN ---
Subjective Subjective Date of Service: 03/09/22 Reason For Visit: Depression/SI, CP Subjective Notes: Conditional Voluntary Healthcare Proxy: No Guardianship: No Medical Problems Affecting Mental Status: No Interim History: Spending much time in bed. Apprehensive about room-mate who is struggling. Discussed upcoming meeting on 03/11 with some agenda planning. Pt not interested at this time in working on distress tolerance skill building. Tolerating medication changes. Medication Compliance: Yes Side effects from medications: No Attending Groups: No Review of Systems Acute medical concerns: No Medical Review of Systems: unchanged Review of Systems Reports behavioral changes Psychiatric: Reports anxiety, Reports behavioral changes, Reports depression, Reports difficulty concentrating, Reports hopelessness, Reports irritability, Reports anhedonia, Reports mood swings and Reports suicidal ideation Mental Status Exam Mental Status Exam Patient Appearance: Appropriate Patient Orientation: Person, Place, Time and Situation Level of Consciousness: Alert Patient Behavior: Appropriate, Talkative, Cooperative, Fatigued and Good Eye Contact Mood Description: Depressed, Angry and Flat Affect Description: Angry and Flat Patient Cognition Impaired: No Ability to Follow Directions: Good Speech Pattern: Clear, Appropriate, Monotone, Spontaneous Speech and Soft-Spoken Memory Description: Intact Hallucinations: None Delusions: Not Present Perceptual Disturbances: Depersonalization and Derealization Thought Process: Rumination and Goal Oriented Thought Content: positive for Perseveration and positive for Suicidal Ideation Depressive Symptoms: Increased Irritability, Feelings of Worthlessness, Hopelessness, Increased Fatigue, Thoughts of /Suicide and Loss of Energy Judgement: Good Diagnostics Vital Signs (24Hr): Vital Signs - 24 hr 03/08/22 20:39 03/09/22 09:42 Temperature 97.1 F Pulse Rate 86 86 Respiratory Rate 20 Blood Pressure 131/78 125/82 Pulse Oximetry 97 Oxygen Delivery Method Room Air BMI result Body Mass Index 28.0 Labs Results: 02/24/22 12:40 03/05/22 07:51 Labs: Laboratory Results - last 48 hr 03/08/22 08:06 POC Glucose 133 H Imaging Radiology Impressions: ITS Impressions Ribs X-Ray 02/19/22 15:28 IMPRESSION: Unremarkable examination. Chest X-Ray 02/24/22 13:27 IMPRESSION: No evidence for acute disease in the chest. Myocardial Perfusion Scan Nuc Med 03/05/22 08:15 Impression: 1. Myocardial perfusion imaging study shows likely normal myocardial perfusion. 2. Gated LVEF is 29% during stress, 48% during rest; visually appear higher. Correlate with echocardiogram. 3. Transient ischemic dilatation not present. EKG component of the test reported separately. Medications Medications Current Medications Acetaminophen (Acetaminophen 325 Mg Tablet) 650 mg PO Q6H PRN PRN Reason: Headache/Pain Mild Scale (1-3) Last Admin: 02/28/22 13:10 Dose: 650 mg Al Hydroxide/Mg Hydroxide (Magnesium Hydrox/Alum Hydrox 30 Ml Oral.Susp) 30 ml PO Q6H PRN PRN Reason: Heartburn/Nausea Last Admin: 02/27/22 15:12 Dose: 30 ml Aripiprazole (Aripiprazole 5 Mg Tablet) 5 mg PO DAILY [facility] Last Admin: 03/09/22 09:40 Dose: 5 mg Bupropion HCl (Bupropion Hcl Xl 300 Mg Tab.Er.24h) 300 mg PO DAILY [facility] Last Admin: 03/09/22 09:40 Dose: 300 mg Bupropion HCl (Bupropion Hcl Xl 150 Mg Tab.Er.24h) 150 mg PO DAILY [facility] Last Admin: 03/09/22 09:40 Dose: 150 mg Divalproex Sodium (Divalproex Sodium 250 Mg Tablet.Dr) 125 mg PO BID [facility] Last Admin: 03/09/22 09:39 Dose: 125 mg Hydroxyzine HCl (Hydroxyzine Hcl 25 Mg Tablet) 25 mg PO Q6H PRN PRN Reason: Anxiety Last Admin: 03/09/22 00:26 Dose: 25 mg Ibuprofen (Ibuprofen 600 Mg Tablet) 600 mg PO Q6H PRN PRN Reason: mod-severe pain Last Admin: 03/07/22 20:44 Dose: 600 mg Magnesium Hydroxide (Milk Of Magnesia 30 Ml Oral.Susp) 30 ml PO DAILY PRN PRN Reason: Constipation Metformin HCl (Metformin Hcl Er 500 Mg Tab.Er.24h) 1,000 mg PO BID [facility] Last Admin: 03/09/22 09:40 Dose: 1,000 mg Metoprolol Tartrate (Metoprolol Tartrate 25 Mg Tablet) 25 mg PO BID [facility]; Protocol Last Admin: 03/09/22 09:40 Dose: 25 mg Nicotine Polacrilex (Nicotine Polacrilex 2 Mg Gum) 4 mg BUCCAL Q2H PRN PRN Reason: Nicotine Cravings Non-Formulary Medication (Trulicity) 1.5 mg SUBCUT Q7D [facility] Last Admin: 03/06/22 08:34 Dose: Not Given Sitagliptin Phosphate (Sitagliptin Phosphate 50 Mg Tablet) 50 mg PO DAILY [facility] Last Admin: 03/09/22 09:40 Dose: 50 mg Trazodone HCl (Trazodone Hcl 50 Mg Tablet) 50 mg PO BEDTIME PRN PRN Reason: Insomnia Last Admin: 03/09/22 00:26 Dose: 50 mg Valsartan (Valsartan 80 Mg Tablet) 80 mg PO DAILY [facility]; Protocol Last Admin: 03/09/22 09:40 Dose: 80 mg Allergies Allergies Allergy/AdvReac Type Severity Reaction Status Date / Time codeine [CODEINE] Allergy Unknown delayed Verified 02/07/22 09:46 responses 02/24/17 Assessment & Plan Assessment & Plan (1) Depression: Status: Acute Code(s): F32.A - Depression, unspecified Plan 03/04/22- Discontinue Depakote Mirtazapine 7.5 mg hs Review DBT Distress Tolerance module with pt. 03/05/22- Increase Mirtazapine to 15 mg HS 03/07/22- Discontinue Mirtazapine Depakote 125 mg bid Will postpone discharge/return to work-pt angry and not prepared, SI persists. 03/09/22 Continue current regime I spent minutes with the patient and/or on the patient floor today, greater than?50% of which was spent counseling/coordinating care. Patient educated on: therapeutic strategies Informed Consent: understands Reason for contiued inpatient stay Substantial Risk for: harm to self, inability to function and rapid decompensation
[2022-03-09] MEDS: Ibuprofen 600 MG TABLET PO (22:10)
[2022-03-10 06:00] VITALS: BP 147/70; PULSE 90; RESP 18; TEMP 36.3; O2SAT 94
[2022-03-10] MEDS: Divalproex Sodium 250 MG TABLET.DR 125 MG PO (09:23)
[2022-03-10] MEDS: Ibuprofen 600 MG TABLET PO (09:24)
[2022-03-10] MEDS: buPROPion HCl XL 150 MG TAB.ER.24H PO (09:24)
[2022-03-10] MEDS: ARIPiprazole 5 MG TABLET PO (09:24)
[2022-03-10] MEDS: Metoprolol Tartrate 25 MG TABLET PO ×2 (09:24→21:28)
[2022-03-10] MEDS: buPROPion HCl XL 300 MG TAB.ER.24H PO (09:24)
[2022-03-10] MEDS: Valsartan 80 MG TABLET PO (09:24)
[2022-03-10] MEDS: metFORMIN HCl ER 500 MG TAB.ER.24H 1000 MG PO ×2 (09:24→21:29)
[2022-03-10] MEDS: SITagliptin Phosphate 50 MG TABLET PO (09:24)
--- NOTE | 2022-03-10 11:58 | PC.NURSE ---
Patient declined POC testing at this time stating he rather do it in the morning.
[2022-03-10 13:50] LABS: COVID-19 Test Negative (Negative)
[2022-03-10 18:00] VITALS: BP 143/85; PULSE 97; RESP 18; TEMP 36.6; O2SAT 97
--- NOTE | 2022-03-10 18:37 | P.PNPSI_ITS ---
Subjective Subjective Date of Service: 03/10/22 Reason For Visit: Depression/SI, CP Subjective Notes: Conditional Voluntary Healthcare Proxy: No Guardianship: No Medical Problems Affecting Mental Status: No Interim History: Reports headache, sore throat-ordered throat culture and COVID test. Anxious about couples meeting, discussed. Very anxious about room-mate, who required restraint last night. Medication Compliance: Yes Side effects from medications: No Attending Groups: No Review of Systems Acute medical concerns: No Medical Review of Systems: unchanged Review of Systems Reports behavioral changes Psychiatric: Reports anxiety, Reports behavioral changes, Reports depression, Reports difficulty concentrating, Reports hopelessness, Reports irritability, Reports anhedonia, Reports mood swings and Reports suicidal ideation Mental Status Exam Mental Status Exam Patient Appearance: Appropriate Patient Orientation: Person, Place, Time and Situation Level of Consciousness: Alert Patient Behavior: Appropriate, Talkative, Cooperative, Fatigued and Good Eye Contact Mood Description: Depressed, Angry and Flat Affect Description: Angry and Flat Patient Cognition Impaired: No Ability to Follow Directions: Good Speech Pattern: Clear, Appropriate, Monotone, Spontaneous Speech and Soft-Spoken Memory Description: Intact Hallucinations: None Delusions: Not Present Perceptual Disturbances: Depersonalization and Derealization Thought Process: Rumination and Goal Oriented Thought Content: positive for Perseveration and positive for Suicidal Ideation Depressive Symptoms: Increased Irritability, Feelings of Worthlessness, Hopelessness, Increased Fatigue, Thoughts of /Suicide and Loss of Energy Judgement: Good Diagnostics Vital Signs (24Hr): Vital Signs - 24 hr 03/10/22 06:00 Temperature 97.3 F Pulse Rate 90 Respiratory Rate 18 Blood Pressure 147/70 H Pulse Oximetry 94 Oxygen Delivery Method Room Air BMI result Body Mass Index 28.0 Labs Results: 02/24/22 12:40 03/05/22 07:51 Labs: Laboratory Results - last 48 hr 03/10/22 13:06 COVID-19 ([facility]) Negative COVID-19 Clin Com See Note Imaging Radiology Impressions: ITS Impressions Ribs X-Ray 02/19/22 15:28 IMPRESSION: Unremarkable examination. Chest X-Ray 02/24/22 13:27 IMPRESSION: No evidence for acute disease in the chest. Myocardial Perfusion Scan Nuc Med 03/05/22 08:15 Impression: 1. Myocardial perfusion imaging study shows likely normal myocardial perfusion. 2. Gated LVEF is 29% during stress, 48% during rest; visually appear higher. Correlate with echocardiogram. 3. Transient ischemic dilatation not present. EKG component of the test reported separately. Medications Medications Current Medications Acetaminophen (Acetaminophen 325 Mg Tablet) 650 mg PO Q6H PRN PRN Reason: Headache/Pain Mild Scale (1-3) Last Admin: 02/28/22 13:10 Dose: 650 mg Al Hydroxide/Mg Hydroxide (Magnesium Hydrox/Alum Hydrox 30 Ml Oral.Susp) 30 ml PO Q6H PRN PRN Reason: Heartburn/Nausea Last Admin: 02/27/22 15:12 Dose: 30 ml Aripiprazole (Aripiprazole 5 Mg Tablet) 5 mg PO DAILY [facility] Last Admin: 03/10/22 09:24 Dose: 5 mg Bupropion HCl (Bupropion Hcl Xl 300 Mg Tab.Er.24h) 300 mg PO DAILY [facility] Last Admin: 03/10/22 09:24 Dose: 300 mg Bupropion HCl (Bupropion Hcl Xl 150 Mg Tab.Er.24h) 150 mg PO DAILY [facility] Last Admin: 03/10/22 09:24 Dose: 150 mg Divalproex Sodium (Divalproex Sodium 250 Mg Tablet.Dr) 125 mg PO BID [facility] Last Admin: 03/10/22 09:23 Dose: 125 mg Hydroxyzine HCl (Hydroxyzine Hcl 25 Mg Tablet) 25 mg PO Q6H PRN PRN Reason: Anxiety Last Admin: 03/09/22 00:26 Dose: 25 mg Ibuprofen (Ibuprofen 600 Mg Tablet) 600 mg PO Q6H PRN PRN Reason: mod-severe pain Last Admin: 03/10/22 09:24 Dose: 600 mg Magnesium Hydroxide (Milk Of Magnesia 30 Ml Oral.Susp) 30 ml PO DAILY PRN PRN Reason: Constipation Metformin HCl (Metformin Hcl Er 500 Mg Tab.Er.24h) 1,000 mg PO BID [facility] Last Admin: 03/10/22 09:24 Dose: 1,000 mg Metoprolol Tartrate (Metoprolol Tartrate 25 Mg Tablet) 25 mg PO BID [facility]; Protocol Last Admin: 03/10/22 09:24 Dose: 25 mg Nicotine Polacrilex (Nicotine Polacrilex 2 Mg Gum) 4 mg BUCCAL Q2H PRN PRN Reason: Nicotine Cravings Non-Formulary Medication (Trulicity) 1.5 mg SUBCUT Q7D [facility] Last Admin: 03/06/22 08:34 Dose: Not Given Sitagliptin Phosphate (Sitagliptin Phosphate 50 Mg Tablet) 50 mg PO DAILY [facility] Last Admin: 03/10/22 09:24 Dose: 50 mg Trazodone HCl (Trazodone Hcl 50 Mg Tablet) 50 mg PO BEDTIME PRN PRN Reason: Insomnia Last Admin: 03/09/22 22:09 Dose: 50 mg Valsartan (Valsartan 80 Mg Tablet) 80 mg PO DAILY [facility]; Protocol Last Admin: 03/10/22 09:24 Dose: 80 mg Allergies Allergies Allergy/AdvReac Type Severity Reaction Status Date / Time codeine [CODEINE] Allergy Unknown delayed Verified 02/07/22 09:46 responses 02/24/17 Assessment & Plan Assessment & Plan (1) Depression: Status: Acute Code(s): F32.A - Depression, unspecified Plan 03/04/22- Discontinue Depakote Mirtazapine 7.5 mg hs Review DBT Distress Tolerance module with pt. 03/05/22- Increase Mirtazapine to 15 mg HS 03/07/22- Discontinue Mirtazapine Depakote 125 mg bid Will postpone discharge/return to work-pt angry and not prepared, SI persists. 03/10/22 Couples meeting 03/11/22 Continue current regime. I spent minutes with the patient and/or on the patient floor today, greater than?50% of which was spent counseling/coordinating care. Patient educated on: therapeutic strategies Informed Consent: understands Reason for contiued inpatient stay Substantial Risk for: harm to self, inability to function and rapid decompensation
[2022-03-10] MEDS: hydrOXYzine HCL 25 MG TABLET PO (21:29)
[2022-03-11 08:29] LABS: Glucose, Whole Blood 138 mg/dL (60-115)
[2022-03-11 09:10] VITALS: BP 170/81; PULSE 85; RESP 20; TEMP 36.2; O2SAT 97
[2022-03-11] MEDS: Valsartan 80 MG TABLET PO (09:16)
[2022-03-11] MEDS: Divalproex Sodium 250 MG TABLET.DR 125 MG PO ×2 (09:16→21:19)
[2022-03-11] MEDS: Metoprolol Tartrate 25 MG TABLET PO ×2 (09:16→21:20)
[2022-03-11] MEDS: buPROPion HCl XL 150 MG TAB.ER.24H PO (09:16)
[2022-03-11] MEDS: ARIPiprazole 5 MG TABLET PO (09:16)
[2022-03-11] MEDS: buPROPion HCl XL 300 MG TAB.ER.24H PO (09:16)
[2022-03-11] MEDS: metFORMIN HCl ER 500 MG TAB.ER.24H 1000 MG PO ×2 (09:17→21:18)
[2022-03-11] MEDS: SITagliptin Phosphate 50 MG TABLET PO (09:17)
--- NOTE | 2022-03-11 16:56 | HO.PSYCHPN ---
Subjective Subjective Date of Service: 03/11/22 Reason For Visit: Depression/SI, CP Subjective Notes: Conditional Voluntary Healthcare Proxy: No Guardianship: No Medical Problems Affecting Mental Status: No Interim History: Couples meeting- pt, , Luis Campos ELIANE, tw. Romeo-Suicide attempt, suicide note- both processed events of attempt, rationale for note left to and anger-note stating pt hoped was happy now. Stressors leading to attempt-pt's concern about not being at a place in life where he is feeling financially secure, feeling like he has failed. discussed that both had made a choice to focus on family/children and help them, the result being a close family and not having monetary wealth. Return to work-pt is very anxious about meeting with employer. Discussed offering this meeting while in hospital to decrease stress and be able to work with the outcome prior to discharge-pt agrees and we will proceed. and pt discussed his TBI in September and his decision to stop his treatments during that time and not engage in self-care. reviewed pt's behavior at daughter's wedding and confronted pt on his actions and behaviors which gave a message that he was not interested in being with his family. emphasized that pt's decisions not only effect him but effect the entire family. Both will move forward with greater knowledge of each other's perspective and attempts to work closely together as a team. DBT modality was discussed and encouraged for pt to have greater knowledge of coping skills. Pt discussed ongoing SI and feeling not ready to return to work or home yet. Will ask employer if pt can have his meeting via zoom while still in pt and will continue medication regime (pt reported by history when he takes meds, they do work) and attempts to manage stressors with support prior to discharge. Medication Compliance: Yes Side effects from medications: No Attending Groups: Intermittent Review of Systems Acute medical concerns: No Medical Review of Systems: unchanged Mental Status Exam Mental Status Exam Patient Appearance: Appropriate Patient Orientation: Person, Place, Time and Situation Level of Consciousness: Alert Patient Behavior: Appropriate, Talkative, Cooperative, Anxious, Fearful, Distractible, Good Eye Contact and Impulsive Mood Description: Constricted, Depressed and Angry Affect Description: Constricted Patient Cognition Impaired: No Ability to Follow Directions: Good Speech Pattern: Spontaneous Speech Memory Description: Episodic Impaired Hallucinations: None Delusions: Not Present Perceptual Disturbances: Depersonalization and Derealization Thought Process: Distracted and Rumination Thought Content: positive for [place], positive for Circumstantial, positive for Perseveration and positive for Suicidal Ideation Depressive Symptoms: Increased Anxiety, Diff. Making Decisions, Loss of Int. in Activity, Isolating-Friends/Family, Feelings of Guilt, Unhappiness, Increased Fatigue, Thoughts of /Suicide and Low Self Esteem Judgement: Fair Diagnostics Vital Signs (24Hr): Vital Signs - 24 hr 03/10/22 18:00 03/11/22 09:10 Temperature 97.8 F 97.2 F Pulse Rate 97 85 Respiratory Rate 18 20 Blood Pressure 143/85 H 170/81 H Pulse Oximetry 97 97 Oxygen Delivery Method Room Air Room Air BMI result Body Mass Index 28.0 Labs Results: 02/24/22 12:40 03/05/22 07:51 Labs: Laboratory Results - last 48 hr 03/10/22 03/11/22 13:06 08:25 POC Glucose 138 H COVID-19 ([facility]) Negative COVID-19 Clin Com See Note Imaging Radiology Impressions: ITS Impressions Ribs X-Ray 02/19/22 15:28 IMPRESSION: Unremarkable examination. Chest X-Ray 02/24/22 13:27 IMPRESSION: No evidence for acute disease in the chest. Myocardial Perfusion Scan Nuc Med 03/05/22 08:15 Impression: 1. Myocardial perfusion imaging study shows likely normal myocardial perfusion. 2. Gated LVEF is 29% during stress, 48% during rest; visually appear higher. Correlate with echocardiogram. 3. Transient ischemic dilatation not present. EKG component of the test reported separately. Medications Medications Current Medications Acetaminophen (Acetaminophen 325 Mg Tablet) 650 mg PO Q6H PRN PRN Reason: Headache/Pain Mild Scale (1-3) Last Admin: 02/28/22 13:10 Dose: 650 mg Al Hydroxide/Mg Hydroxide (Magnesium Hydrox/Alum Hydrox 30 Ml Oral.Susp) 30 ml PO Q6H PRN PRN Reason: Heartburn/Nausea Last Admin: 02/27/22 15:12 Dose: 30 ml Aripiprazole (Aripiprazole 5 Mg Tablet) 5 mg PO DAILY [facility] Last Admin: 03/11/22 09:16 Dose: 5 mg Bupropion HCl (Bupropion Hcl Xl 300 Mg Tab.Er.24h) 300 mg PO DAILY [facility] Last Admin: 03/11/22 09:16 Dose: 300 mg Bupropion HCl (Bupropion Hcl Xl 150 Mg Tab.Er.24h) 150 mg PO DAILY [facility] Last Admin: 03/11/22 09:16 Dose: 150 mg Divalproex Sodium (Divalproex Sodium 250 Mg Tablet.Dr) 125 mg PO BID [facility] Last Admin: 03/11/22 09:16 Dose: 125 mg Hydroxyzine HCl (Hydroxyzine Hcl 25 Mg Tablet) 25 mg PO Q6H PRN PRN Reason: Anxiety Last Admin: 03/10/22 21:29 Dose: 25 mg Ibuprofen (Ibuprofen 600 Mg Tablet) 600 mg PO Q6H PRN PRN Reason: mod-severe pain Last Admin: 03/10/22 09:24 Dose: 600 mg Magnesium Hydroxide (Milk Of Magnesia 30 Ml Oral.Susp) 30 ml PO DAILY PRN PRN Reason: Constipation Metformin HCl (Metformin Hcl Er 500 Mg Tab.Er.24h) 1,000 mg PO BID [facility] Last Admin: 03/11/22 09:17 Dose: 1,000 mg Metoprolol Tartrate (Metoprolol Tartrate 25 Mg Tablet) 25 mg PO BID [facility]; Protocol Last Admin: 03/11/22 09:16 Dose: 25 mg Nicotine Polacrilex (Nicotine Polacrilex 2 Mg Gum) 4 mg BUCCAL Q2H PRN PRN Reason: Nicotine Cravings Non-Formulary Medication (Trulicity) 1.5 mg SUBCUT Q7D [facility] Last Admin: 03/06/22 08:34 Dose: Not Given Sitagliptin Phosphate (Sitagliptin Phosphate 50 Mg Tablet) 50 mg PO DAILY [facility] Last Admin: 03/11/22 09:17 Dose: 50 mg Trazodone HCl (Trazodone Hcl 50 Mg Tablet) 50 mg PO BEDTIME PRN PRN Reason: Insomnia Last Admin: 03/09/22 22:09 Dose: 50 mg Valsartan (Valsartan 80 Mg Tablet) 80 mg PO DAILY [facility]; Protocol Last Admin: 03/11/22 09:16 Dose: 80 mg Allergies Allergies Allergy/AdvReac Type Severity Reaction Status Date / Time codeine [CODEINE] Allergy Unknown delayed Verified 02/07/22 09:46 responses 02/24/17 Assessment & Plan Assessment & Plan (1) Depression: Status: Acute Code(s): F32.A - Depression, unspecified Plan 03/04/22- Discontinue Depakote Mirtazapine 7.5 mg hs Review DBT Distress Tolerance module with pt. 03/05/22- Increase Mirtazapine to 15 mg HS 03/07/22- Discontinue Mirtazapine Depakote 125 mg bid Will postpone discharge/return to work-pt angry and not prepared, SI persists. 03/10/22 Couples meeting 03/11/22 Continue current regime. 03/11/22 Will contact employer to attempt to schedule pt's return to work meeting while still in patient. I spent minutes with the patient and/or on the patient floor today, greater than?50% of which was spent counseling/coordinating care. Patient educated on: therapeutic strategies Informed Consent: further education needed Reason for contiued inpatient stay Substantial Risk for: harm to self, inability to function, rapid decompensation and med/psych decompensation
[2022-03-11 21:15] VITALS: BP 144/98; PULSE 84; TEMP 35.9; O2SAT 98
[2022-03-11] MEDS: traZODone HCL 50 MG TABLET PO (21:18)
[2022-03-12 08:25] VITALS: BP 157/87; PULSE 82; RESP 16; TEMP 36.4; O2SAT 98
[2022-03-12] MEDS: buPROPion HCl XL 300 MG TAB.ER.24H PO (08:33)
[2022-03-12] MEDS: Valsartan 80 MG TABLET PO (08:33)
[2022-03-12] MEDS: Divalproex Sodium 250 MG TABLET.DR 125 MG PO ×2 (08:34→19:33)
[2022-03-12] MEDS: metFORMIN HCl ER 500 MG TAB.ER.24H 1000 MG PO ×2 (08:35→19:33)
[2022-03-12] MEDS: buPROPion HCl XL 150 MG TAB.ER.24H PO (08:35)
[2022-03-12] MEDS: ARIPiprazole 5 MG TABLET PO (08:35)
[2022-03-12] MEDS: SITagliptin Phosphate 50 MG TABLET PO (08:35)
[2022-03-12] MEDS: Metoprolol Tartrate 25 MG TABLET PO ×2 (08:36→19:32)
[2022-03-12 09:06] LABS: Creatinine Clr Calc Pharmacy 107.2; Estimated Glomerular Filt Rate > 60
--- NOTE | 2022-03-12 18:37 | P.PNPSI_ITS ---
Subjective Subjective Date of Service: 03/12/22 Reason For Visit: Depression/SI, CP Subjective Notes: Conditional Voluntary Healthcare Proxy: No Guardianship: No Medical Problems Affecting Mental Status: No Interim History: Reports pain in his throat, with difficulty swallowing. Abilify held, ?SE, swallow eval ordered. No word yet from pt's employer if he will be allowed to do a zoom meeting 03/13 as he is not returning to work. Discussed potential discharge for later this week. Medication Compliance: Yes Side effects from medications: Yes (possible Abilify SE with difficulty swallowing) Attending Groups: No Review of Systems Acute medical concerns: No Medical Review of Systems: unchanged Mental Status Exam Mental Status Exam Patient Appearance: Appropriate Patient Orientation: Person, Place, Time and Situation Level of Consciousness: Alert Patient Behavior: Appropriate, Talkative, Cooperative, Anxious, Fearful, Distractible, Good Eye Contact and Impulsive Mood Description: Constricted, Depressed and Angry Affect Description: Constricted Patient Cognition Impaired: No Ability to Follow Directions: Good Speech Pattern: Spontaneous Speech Memory Description: Episodic Impaired Hallucinations: None Delusions: Not Present Perceptual Disturbances: Depersonalization and Derealization Thought Process: Distracted and Rumination Thought Content: positive for [place], positive for Circumstantial, positive for Perseveration and positive for Suicidal Ideation Depressive Symptoms: Increased Anxiety, Diff. Making Decisions, Loss of Int. in Activity, Isolating-Friends/Family, Feelings of Guilt, Unhappiness, Increased Fatigue, Thoughts of /Suicide and Low Self Esteem Judgement: Fair Diagnostics Vital Signs (24Hr): Vital Signs - 24 hr 03/11/22 21:15 03/12/22 08:25 Temperature 96.7 F L 97.5 F Pulse Rate 84 82 Respiratory Rate 16 Blood Pressure 144/98 H 157/87 H Pulse Oximetry 98 98 Oxygen Delivery Method Room Air Room Air BMI result Body Mass Index 28.0 Labs Results: 02/24/22 12:40 03/12/22 08:30 Labs: Laboratory Results - last 48 hr 03/11/22 03/12/22 08:25 08:30 Creatinine 0.80 Estim Creat Clear Calc 107.2 Estimated GFR > 60 POC Glucose 138 H Imaging Radiology Impressions: ITS Impressions Ribs X-Ray 02/19/22 15:28 IMPRESSION: Unremarkable examination. Chest X-Ray 02/24/22 13:27 IMPRESSION: No evidence for acute disease in the chest. Myocardial Perfusion Scan Nuc Med 03/05/22 08:15 Impression: 1. Myocardial perfusion imaging study shows likely normal myocardial perfusion. 2. Gated LVEF is 29% during stress, 48% during rest; visually appear higher. Correlate with echocardiogram. 3. Transient ischemic dilatation not present. EKG component of the test reported separately. Medications Medications Current Medications Acetaminophen (Acetaminophen 325 Mg Tablet) 650 mg PO Q6H PRN PRN Reason: Headache/Pain Mild Scale (1-3) Last Admin: 02/28/22 13:10 Dose: 650 mg Al Hydroxide/Mg Hydroxide (Magnesium Hydrox/Alum Hydrox 30 Ml Oral.Susp) 30 ml PO Q6H PRN PRN Reason: Heartburn/Nausea Last Admin: 02/27/22 15:12 Dose: 30 ml Bupropion HCl (Bupropion Hcl Xl 300 Mg Tab.Er.24h) 300 mg PO DAILY [facility] Last Admin: 03/12/22 08:33 Dose: 300 mg Bupropion HCl (Bupropion Hcl Xl 150 Mg Tab.Er.24h) 150 mg PO DAILY [facility] Last Admin: 03/12/22 08:35 Dose: 150 mg Divalproex Sodium (Divalproex Sodium 250 Mg Tablet.Dr) 125 mg PO BID [facility] Last Admin: 03/12/22 08:34 Dose: 125 mg Hydroxyzine HCl (Hydroxyzine Hcl 25 Mg Tablet) 25 mg PO Q6H PRN PRN Reason: Anxiety Last Admin: 03/10/22 21:29 Dose: 25 mg Ibuprofen (Ibuprofen 600 Mg Tablet) 600 mg PO Q6H PRN PRN Reason: mod-severe pain Last Admin: 03/10/22 09:24 Dose: 600 mg Magnesium Hydroxide (Milk Of Magnesia 30 Ml Oral.Susp) 30 ml PO DAILY PRN PRN Reason: Constipation Metformin HCl (Metformin Hcl Er 500 Mg Tab.Er.24h) 1,000 mg PO BID [facility] Last Admin: 03/12/22 08:35 Dose: 1,000 mg Metoprolol Tartrate (Metoprolol Tartrate 25 Mg Tablet) 25 mg PO BID [facility]; Protocol Last Admin: 03/12/22 08:36 Dose: 25 mg Nicotine Polacrilex (Nicotine Polacrilex 2 Mg Gum) 4 mg BUCCAL Q2H PRN PRN Reason: Nicotine Cravings Non-Formulary Medication (Trulicity) 1.5 mg SUBCUT Q7D [facility] Last Admin: 03/06/22 08:34 Dose: Not Given Sitagliptin Phosphate (Sitagliptin Phosphate 50 Mg Tablet) 50 mg PO DAILY [facility] Last Admin: 03/12/22 08:35 Dose: 50 mg Trazodone HCl (Trazodone Hcl 50 Mg Tablet) 50 mg PO BEDTIME PRN PRN Reason: Insomnia Last Admin: 03/11/22 21:18 Dose: 50 mg Valsartan (Valsartan 80 Mg Tablet) 80 mg PO DAILY [facility]; Protocol Last Admin: 03/12/22 08:33 Dose: 80 mg Allergies Allergies Allergy/AdvReac Type Severity Reaction Status Date / Time codeine [CODEINE] Allergy Unknown delayed Verified 02/07/22 09:46 responses 02/24/17 Assessment & Plan Assessment & Plan (1) Depression: Status: Acute Code(s): F32.A - Depression, unspecified Plan 03/04/22- Discontinue Depakote Mirtazapine 7.5 mg hs Review DBT Distress Tolerance module with pt. 03/05/22- Increase Mirtazapine to 15 mg HS 03/07/22- Discontinue Mirtazapine Depakote 125 mg bid Will postpone discharge/return to work-pt angry and not prepared, SI persists. 03/10/22 Couples meeting 03/11/22 Continue current regime. 03/11/22 Will contact employer to attempt to schedule pt's return to work meeting while still in patient. 03/12/22 Hold Hai guerrero I spent minutes with the patient and/or on the patient floor today, greater than?50% of which was spent counseling/coordinating care. Patient educated on: medication risk/benefits, therapeutic strategies and medical condition Informed Consent: understands and further education needed Reason for contiued inpatient stay Substantial Risk for: harm to self and rapid decompensation
[2022-03-12 19:25] VITALS: BP 112/65; PULSE 86; TEMP 35.4
[2022-03-12] MEDS: traZODone HCL 50 MG TABLET PO (19:32)
[2022-03-12] MEDS: hydrOXYzine HCL 25 MG TABLET PO (20:12)
[2022-03-12] MEDS: Ibuprofen 600 MG TABLET PO (21:39)
[2022-03-13 06:00] VITALS: BP 159/77; PULSE 81; RESP 18
[2022-03-13] MEDS: metFORMIN HCl ER 500 MG TAB.ER.24H 1000 MG PO ×2 (08:56→21:18)
[2022-03-13] MEDS: Valsartan 80 MG TABLET PO (08:56)
[2022-03-13] MEDS: buPROPion HCl XL 300 MG TAB.ER.24H PO (08:56)
[2022-03-13] MEDS: SITagliptin Phosphate 50 MG TABLET PO (08:56)
[2022-03-13] MEDS: buPROPion HCl XL 150 MG TAB.ER.24H PO (08:56)
[2022-03-13] MEDS: Metoprolol Tartrate 25 MG TABLET PO ×2 (08:57→21:18)
[2022-03-13] MEDS: Divalproex Sodium 250 MG TABLET.DR 125 MG PO ×2 (08:57→21:25)
--- NOTE | 2022-03-13 14:49 | PM.EVENT ---
Event Note Date of Service: 03/13/22 Event Note: patient complaining of odynophagia. on exam unremarkable tongue, mouth, pharynx, submandibular lymphnodes mildly swollen, possible viral pharyngitis, denies, fever, cough, congestion. symptomatic management with throat lozenges, monitor.
--- NOTE | 2022-03-13 17:54 | HO.PSYCHPN ---
Subjective Subjective Date of Service: 03/13/22 Reason For Visit: Depression/SI, CP Subjective Notes: Conditional Voluntary Healthcare Proxy: No Guardianship: No Medical Problems Affecting Mental Status: No Interim History: Reports difficulty swallowing, burning sensation, gagging on meds. Also reports confusion, poor memory of couples meeting except he left with a feeling of gratitude and positive feelings. Dreaming all of this was not real. Call to his employer who reports she is just back from vacation and has not listened to voice mails. States that she requires email stating he is not returning and form for fitness for duty-email was sent, form was faxed x 2-returned stating receiving fax was not turned on. Pt will discharge on 03/14. He will return to work on 03/19. Employer will allow a meeting via zoom with team if he calls her to discuss this.Discussed with pt's . Hospitalist consult/swallow eval ordered Medication Compliance: Yes Side effects from medications: Yes (possibly) Attending Groups: Intermittent Review of Systems Acute medical concerns: No Medical Review of Systems: unchanged Mental Status Exam Mental Status Exam Patient Appearance: Appropriate Patient Orientation: Person, Place, Time and Situation Level of Consciousness: Alert Patient Behavior: Appropriate, Talkative, Cooperative, Anxious, Fearful, Distractible, Good Eye Contact and Impulsive Mood Description: Constricted, Depressed and Angry Affect Description: Constricted Patient Cognition Impaired: No Ability to Follow Directions: Good Speech Pattern: Spontaneous Speech Memory Description: Episodic Impaired Hallucinations: None Delusions: Not Present Perceptual Disturbances: Depersonalization and Derealization Thought Process: Distracted and Rumination Thought Content: positive for [place], positive for Circumstantial, positive for Persever[place] and positive for Suicidal Ideation Depressive Symptoms: Increased Anxiety, Diff. Making Decisions, Loss of Int. in Activity, Isolating-Friends/Family, Feelings of Guilt, Unhappiness, Increased Fatigue, Thoughts of /Suicide and Low Self Esteem Judgement: Fair Diagnostics Vital Signs (24Hr): Vital Signs - 24 hr 03/12/22 19:25 03/13/22 06:00 Temperature 95.7 F L Pulse Rate 86 81 Respiratory Rate 18 Blood Pressure 112/65 159/77 H BMI result Body Mass Index 28.0 Labs Results: 02/24/22 12:40 03/12/22 08:30 Labs: Laboratory Results - last 48 hr 03/12/22 08:30 Creatinine 0.80 Estim Creat Clear Calc 107.2 Estimated GFR > 60 Imaging Radiology Impressions: ITS Impressions Ribs X-Ray 02/19/22 15:28 IMPRESSION: Unremarkable examination. Chest X-Ray 02/24/22 13:27 IMPRESSION: No evidence for acute disease in the chest. Myocardial Perfusion Scan Nuc Med 03/05/22 08:15 Impression: 1. Myocardial perfusion imaging study shows likely normal myocardial perfusion. 2. Gated LVEF is 29% during stress, 48% during rest; visually appear higher. Correlate with echocardiogram. 3. Transient ischemic dilatation not present. EKG component of the test reported separately. Medications Medications Current Medications Acetaminophen (Acetaminophen 325 Mg Tablet) 650 mg PO Q6H PRN PRN Reason: Headache/Pain Mild Scale (1-3) Last Admin: 02/28/22 13:10 Dose: 650 mg Al Hydroxide/Mg Hydroxide (Magnesium Hydrox/Alum Hydrox 30 Ml Oral.Susp) 30 ml PO Q6H PRN PRN Reason: Heartburn/Nausea Last Admin: 02/27/22 15:12 Dose: 30 ml Bupropion HCl (Bupropion Hcl Xl 300 Mg Tab.Er.24h) 300 mg PO DAILY [facility] Last Admin: 03/13/22 08:56 Dose: 300 mg Bupropion HCl (Bupropion Hcl Xl 150 Mg Tab.Er.24h) 150 mg PO DAILY [facility] Last Admin: 03/13/22 08:56 Dose: 150 mg Divalproex Sodium (Divalproex Sodium 250 Mg Tablet.Dr) 125 mg PO BID [facility] Last Admin: 03/13/22 08:57 Dose: 125 mg Hydroxyzine HCl (Hydroxyzine Hcl 25 Mg Tablet) 25 mg PO Q6H PRN PRN Reason: Anxiety Last Admin: 03/12/22 20:12 Dose: 25 mg Ibuprofen (Ibuprofen 600 Mg Tablet) 600 mg PO Q6H PRN PRN Reason: mod-severe pain Last Admin: 03/12/22 21:39 Dose: 600 mg Magnesium Hydroxide (Milk Of Magnesia 30 Ml Oral.Susp) 30 ml PO DAILY PRN PRN Reason: Constipation Metformin HCl (Metformin Hcl Er 500 Mg Tab.Er.24h) 1,000 mg PO BID [facility] Last Admin: 03/13/22 08:56 Dose: 1,000 mg Metoprolol Tartrate (Metoprolol Tartrate 25 Mg Tablet) 25 mg PO BID [facility]; Protocol Last Admin: 03/13/22 08:57 Dose: 25 mg Nicotine Polacrilex (Nicotine Polacrilex 2 Mg Gum) 4 mg BUCCAL Q2H PRN PRN Reason: Nicotine Cravings Non-Formulary Medication (Trulicity) 1.5 mg SUBCUT Q7D [facility] Last Admin: 03/12/22 21:35 Dose: Not Given Sitagliptin Phosphate (Sitagliptin Phosphate 50 Mg Tablet) 50 mg PO DAILY [facility] Last Admin: 03/13/22 08:56 Dose: 50 mg Trazodone HCl (Trazodone Hcl 50 Mg Tablet) 50 mg PO BEDTIME PRN PRN Reason: Insomnia Last Admin: 03/12/22 19:32 Dose: 50 mg Valsartan (Valsartan 80 Mg Tablet) 80 mg PO DAILY [facility]; Protocol Last Admin: 03/13/22 08:56 Dose: 80 mg Allergies Allergies Allergy/AdvReac Type Severity Reaction Status Date / Time codeine [CODEINE] Allergy Unknown delayed Verified 02/07/22 09:46 responses 02/24/17 Assessment & Plan Assessment & Plan (1) Depression: Status: Acute Code(s): F32.A - Depression, unspecified Plan 03/04/22- Discontinue Depakote Mirtazapine 7.5 mg hs Review DBT Distress Tolerance module with pt. 03/05/22- Increase Mirtazapine to 15 mg HS 03/07/22- Discontinue Mirtazapine Depakote 125 mg bid Will postpone discharge/return to work-pt angry and not prepared, SI persists. 03/10/22 Couples meeting 03/11/22 Continue current regime. 03/11/22 Will contact employer to attempt to schedule pt's return to work meeting while still in patient. 03/13/22 Continue current regime I spent minutes with the patient and/or on the patient floor today, greater than?50% of which was spent counseling/coordinating care. Patient educated on: medication risk/benefits, therapeutic strategies and medical condition Informed Consent: understands Reason for contiued inpatient stay Substantial Risk for: stable for discharge
[2022-03-13 18:00] VITALS: BP 158/76; PULSE 84; RESP 20; O2SAT 97
[2022-03-13] MEDS: traZODone HCL 50 MG TABLET PO (21:18)
[2022-03-13] MEDS: hydrOXYzine HCL 25 MG TABLET PO (21:18)
[2022-03-14] MEDS: Magnesium Hydrox/Alum Hydrox 30 ML ORAL.SUSP PO (00:55)
[2022-03-14 08:30] VITALS: BP 142/76; PULSE 81; RESP 18
[2022-03-14] MEDS: buPROPion HCl XL 300 MG TAB.ER.24H PO (08:31)
[2022-03-14] MEDS: buPROPion HCl XL 150 MG TAB.ER.24H PO (08:31)
[2022-03-14] MEDS: Metoprolol Tartrate 25 MG TABLET PO (08:31)
[2022-03-14] MEDS: metFORMIN HCl ER 500 MG TAB.ER.24H 1000 MG PO (08:31)
[2022-03-14] MEDS: Ibuprofen 600 MG TABLET PO (08:31)
[2022-03-14] MEDS: Divalproex Sodium Sprinkles 125 MG CAP.DR.SPR PO (08:32)
[2022-03-14] MEDS: Valsartan 80 MG TABLET PO (08:32)
[2022-03-14] MEDS: SITagliptin Phosphate 50 MG TABLET PO (08:32)
--- NOTE | 2022-03-14 17:51 | PM.PSYDC ---
DS: Providers Provider Date of Service: 03/14/22 Date of admission: 02/20/22 17:26 Date of discharge: 03/14/22 Primary care physician: Manpreet Tabares MD Admitting clinician: Cesia Almanzar Attending physician on admission: Stone Anders Consults: 02/24/22 12:07 Consult to Hospitalist Routine Consulting Provider: Hospitalist Reason For Exam: chest pain 02/24/22 12:12 Consult to Cardiology Routine Consulting Provider: Oswald Garcia Reason for consultation: chest pain 02/27/22 12:10 Consult to Wound Care Routine Consulting Provider: [facility] W[facility] Care Management Reason for consultation: Diabetic, off meds, L foot wound with pain Has provider been notified: No 03/13/22 11:30 Consult to Hospitalist Routine Consulting Provider: Hospitalist Reason For Exam: dysphagia, swallow eval ordered, burning sensation Attending physician on discharge: Stone Anders Discharging clinician: Cesia Almanzar DS: Diagnosis Discharge Diagnosis (1) Depression: Status: Acute DS: Medications Discharge Medications Home Medications: Home Medications Medication Instructions Recorded Confirmed metformin 500 mg tablet,extended 2 tab PO BID 12/08/21 02/19/22 release 24 hr Previous Rx's Medication Instructions Recorded aripiprazole 2 mg tablet (Abilify) 2 mg PO DAILY #30 tabs 03/14/22 bupropion HCl 150 mg 24 hr tablet, 1 tab PO DAILY #30 tabs 03/14/22 extended release bupropion HCl 300 mg 24 hr tablet, 1 tab PO DAILY #30 tabs 03/14/22 extended release divalproex 125 mg capsule,delayed 125 mg PO BID #60 caps 03/14/22 release sprinkle dulaglutide 1.5 mg/0.5 mL 1.5 mg (0.5 mL) subcut LUCIA@0900 #4 03/14/22 subcutaneous pen injector multiple units (Trulicity) metoprolol tartrate 25 mg tablet 25 mg PO BID #60 tabs 03/14/22 sitagliptin 50 mg tablet (Januvia) 50 mg PO DAILY #30 tabs 03/14/22 trazodone 50 mg tablet 50 mg PO BEDTIME PRN Insomnia #15 03/14/22 tabs valsartan 80 mg tablet 1 tab PO DAILY #30 tabs 03/14/22 Mental Status Exam Mental Status Exam Patient Appearance: Appropriate Patient Orientation: Person, Place, Time and Situation Level of Consciousness: Alert Patient Behavior: Appropriate, Talkative, Cooperative, Anxious, Distractible and Good Eye Contact Mood Description: Constricted Affect Description: Constricted Patient Cognition Impaired: No Ability to Follow Directions: Good Speech Pattern: Spontaneous Speech Memory Description: Episodic Impaired Hallucinations: None Delusions: Not Present Thought Process: Distracted Thought Content: positive for [place] and positive for Circumstantial Depressive Symptoms: Increased Anxiety, Diff. Making Decisions, Loss of Int. in Activity, Isolating-Friends/Family, Feelings of Guilt, Unhappiness, Increased Fatigue and Low Self Esteem Judgement: Fair Data Data Completed and Pending Completed studies during hospitalization [Text1]: 03/08/22 03/10/22 03/11/22 08:06 13:06 08:25 Creatinine Estim Creat Clear Calc Estimated GFR POC Glucose 133 H 138 H COVID-19 ([facility]) Negative COVID-19 Clin Com See Note 03/12/22 08:30 Creatinine 0.80 Estim Creat Clear Calc 107.2 Estimated GFR > 60 POC Glucose COVID-19 ([facility]) COVID-19 Clin Com 03/10/22 13:06 Throat Throat Culture - Final No Group A Beta-hemolytic Streptococci isolated. 02/21/22 Unknown Urine clean catch - Clean Catch Midstream Urine Culture - Final No growth. Imaging Diagnostic Imaging Impressions Ribs X-Ray 02/19/22 15:28 IMPRESSION: Unremarkable examination. Chest X-Ray 02/24/22 13:27 IMPRESSION: No evidence for acute disease in the chest. Myocardial Perfusion Scan Nuc Med 03/05/22 08:15 Impression: 1. Myocardial perfusion imaging study shows likely normal myocardial perfusion. 2. Gated LVEF is 29% during stress, 48% during rest; visually appear higher. Correlate with echocardiogram. 3. Transient ischemic dilatation not present. EKG component of the test reported separately. DS: Summary Hospital Course Hospital Course: Admission to adult psychiatry for exacerbation of symptoms of recurrent major depression, s/p overdose of ~#70 tramadol, topiramate, trazodone in a suicide attempt. Hx of HTN, DM with foot ulcer. Pt was found by his son post overdose. 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 Pt chose, after this, to stop psychiatric and medical medications with ongoing symptoms of vertigo and dizziness. Pt had just returned to work a few weeks before the overdose and discussed his state of mood prior to the overdose feeling anger, burdened with responsibilities, and feeling dissatisfaction with the position he had in life at his curent age. Pt participated in medical, cardiac and wound evaluations. Wellbutrin was continued, Abilify re-started and Depakote (low dose was initiated). Pt and family participated in family meeting via Zoom and in person, where discussions were initiated with pt's current stressors and family's current concerns with patient's behaviors and resulting overdose. Communication was initiated with pt's employer to assist him him in returning to work Time spent discussing smoking cessation with patient: 3 to 10 minutes Status at Discharge Functional status at discharge: independent ambulation Overall status at discharge: patient is progressing back to baseline Time Spent with Patient Time attestation: Total time spent providing and/or coordinating discharge services: 45 Time spent: Greater than 30 minutes Discharge Plan Discharge Patient Disposition: Home, Self-Care Discharge Diagnosis: Recurrent major depression, severe Hypertension Diabetes Foot Ulcer secondary to diabetes Referrals: [facility] [Other] - 1 Week (Referral for outpatient therapy Agency will follow-up with you once therapist has been assigned Should you have questions you may call agency to inquire about referral and therapist assignment.) Shola Leyva [Other] - 1 Week (Follow-up discharge appointment with psychiatric medication provider patient should follow-up with agency regarding appointment as their policy is that patient needs to call and schedule appointment) Manpreet Tabares MD [Primary Care Provider] - 1 Week (OFFICE WILL CALL US BACK OR PT. WITH F/U APPOINTMENT.) Discharge Medications: New trazodone 50 mg Tablet 50 mg PO BEDTIME PRN (Reason: Insomnia) Qty: 15 0RF divalproex 125 mg Capsule, Delayed Rel Sprinkle 125 mg PO BID Qty: 60 0RF metoprolol tartrate 25 mg Tablet 25 mg PO BID Qty: 60 0RF Protocol: Hold for SBP/HR < HOLD for SBP < : 90 HOLD for HR < : 60 aripiprazole [Abilify] 2 mg tablet 2 mg PO DAILY Qty: 30 0RF Continued metformin 500 mg tablet extended release 24 hr 2 tab PO BID valsartan 80 mg tablet 1 tab PO DAILY Qty: 30 0RF bupropion HCl 300 mg tablet extended release 24 hr 1 tab PO DAILY Qty: 30 0RF bupropion HCl 150 mg tablet extended release 24 hr 1 tab PO DAILY Qty: 30 0RF Trulicity 1.5 mg/0.5 mL pen injector 1.5 mg subcut LUCIA@0900 Qty: 4 0RF Changed Januvia 50 mg tablet 50 mg PO DAILY Qty: 30 0RF No Action gentamicin 0.1 % ointment 1 appl topical QID Qty: 30 1RF doxycycline monohydrate 100 mg tablet 100 mg PO BID 10 Days Qty: 20 0RF cephalexin 500 mg capsule 500 mg PO Q6H 10 Days Qty: 40 0RF Discharge Orders: Discharge Order (Routine); Ordered 03/14/22 Ordered By: Cesia Almanzar Diet: Diabetic diet Activity on Discharge: As tolerated Stand Alone Forms: Patient Portal Discharge page, Community Support Care Plan Goals: Maintain mood and safe behaviors Take medications as directed Practice coping skills Dialectical Behavior Therapy (DBT) has on line sessions that are available to you Continue with out patient providers and reach out as needed Health Concerns: Mood stabilization Safe behaviors Self-care concerning diabetes and foot ulcer Plan of Treatment: Make a follow up appointment with your primary care doctor, psychiatrist and other out patient providers. [facility] have been [facility] to [facility] for psychotherapy Take medications as prescribed Assessment: Pt interviewed prior to discharge and found to be fully oriented and without any SI or HI. Pt has insight and demonstrates good judgment in terms of pursuing treatment. Pt is not an imminent risk of harm to self or others and has a safety plan that includes presenting to the ER or calling 911 if feeling unsafe. Pt has been observed by the team throughout this admission. Pt has not engaged in any behaviors that suggest dangerousness to self or others while on the unit and has demonstrated appropriate behaviors and impulse control. Discharge Date/Time: 03/14/22 13:57
== END 2022-03-14 13:57 | disposition home or self-care (01) | DRG 751 ==
LOC: HO.ED 02-20 14:29 → HO.PM5 02-20 18:20
PROVIDERS: Nurse Practitioner Family; Admitting Provider Psychiatry & Neurology Psychiatry; Emergency Provider Student in an Organized Health Care Education/Training Program; PCP Family Medicine; Visit Provider Clinical Nurse Specialist Psychiatric/Mental Health, Adult
DX: F33.2 Major depressive disorder, recurrent severe without psychotic features (principal); E11.621 Type 2 diabetes mellitus with foot ulcer; R45.851 Suicidal ideations; I10 Essential (primary) hypertension; E78.5 Hyperlipidemia, unspecified; J02.9 Acute pharyngitis, unspecified; I44.7 Left bundle-branch block, unspecified; L97.509 Non-pressure chronic ulcer of other part of unspecified foot with unspecified severity; Z20.822 Contact with and (suspected) exposure to COVID-19; Z91.14 Patient's other noncompliance with medication regimen; Z91.51 Personal history of suicidal behavior; Z88.5 Allergy status to narcotic agent; Z79.84 Long term (current) use of oral hypoglycemic drugs; Z79.899 Other long term (current) drug therapy
CPT/HCPCS: 36415; 71045; 71101; 78452; 80048; 80061; 80076; 80143; 80179; 80307; 82077; 82565; 82947; 83036; 84443; 84484; 85025; 87071; 87086; 87635; 93005; 93017; 99285; A9500; J0280; J2785

== ENCOUNTER 2022-03-28 09:53 | Emergency (ER) | payer BC, SELFPAY ==
--- NOTE | ~2022-03-28 | XR_ITS ---
EXAMINATION: XR FOOT, LEFT CLINICAL INFORMATION: Left foot pain/swelling/wound since January COMPARISON: 02/07/2022 TECHNIQUE: AP, lateral, and oblique views of the left foot. FINDINGS: [id number] osteoarthritis in the talocrural joint is characterized by nonuniform joint space narrowing, marginal osteophytes, articular cortical irregularity, subcortical cystic change. Small enthesopathic spurs are present at the Achilles tendon insertion and plantar fascial origin on the calcaneus. Soft tissue swelling is evident at the midfoot, most pronounced laterally. No subcutaneous gas. No evidence of osteomyelitis. XR/XR foot LT min 3V IMPRESSION: Soft tissue swelling at the lateral midfoot. No subcutaneous gas or acute osseous findings. 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
[2022-03-28 10:36] VITALS: BP 103/66; PULSE 89; RESP 18; TEMP 36.9; O2SAT 99; BMI 26.6
--- NOTE | 2022-03-28 17:06 | ED_ITS ---
HPI - Wound/Laceration General Chief Complaint: Wound/Laceration Stated Complaint: Open wound on L foot Time Seen by Provider: 03/28/22 13:31 Source: patient Mode of arrival: ambulatory Limitations: no limitations History of Present Illness HPI narrative: 56-year-old male with a past medical history of diabetes presenting to the ER with complaints of worsening left foot wound/redness/pain/swelling that has been present since January although worse in the past 2-3 days. Reports that he was seen here and had a negative x-ray. He was seen at an urgent care prior to being seen here on January and was started on Augmentin and Flagyl reports he took the medications as prescribed and his symptoms resolved. He reports that this initially started in September 2021 when he tripped and fell, struck his head and had a concussion and noticed a callus on his left foot at that time. He denies any new falls or trauma. He denies any fevers, chills, nausea/vomiting, elevated glucose level, lower extremity edema or calf tenderness or any other symptoms complaints or concerns at this time. Reports he was given a referral t o the wound clinic and he has an appointment at the wound clinic on April 08. Reports that his blood glucose levels have been in the 120s in the past few days. Reports that his blood glucose level this morning was 118. Onset (ago): month(s) (Worsened in the past few days) Patient tetanus UTD: Yes Related Data Home Medications Medication Instructions Recorded Confirmed metformin 500 mg tablet,extended 2 tab PO BID 12/08/21 02/19/22 release 24 hr Previous Rx's Medication Instructions Recorded aripiprazole 2 mg tablet (Abilify) 2 mg PO DAILY #30 tabs 03/14/22 bupropion HCl 150 mg 24 hr tablet, 1 tab PO DAILY #30 tabs 03/14/22 extended release bupropion HCl 300 mg 24 hr tablet, 1 tab PO DAILY #30 tabs 03/14/22 extended release divalproex 125 mg capsule,delayed 125 mg PO BID #60 caps 03/14/22 release sprinkle dulaglutide 1.5 mg/0.5 mL 1.5 mg (0.5 mL) subcut LUCIA@0900 #4 03/14/22 subcutaneous pen injector multiple units (Trulicity) metoprolol tartrate 25 mg tablet 25 mg PO BID #60 tabs 03/14/22 sitagliptin 50 mg tablet (Januvia) 50 mg PO DAILY #30 tabs 03/14/22 trazodone 50 mg tablet 50 mg PO BEDTIME PRN Insomnia #15 03/14/22 tabs valsartan 80 mg tablet 1 tab PO DAILY #30 tabs 03/14/22 cephalexin 500 mg capsule 500 mg PO Q6H 10 days #40 caps 03/28/22 doxycycline monohydrate 100 mg 100 mg PO BID 10 days #20 tabs 03/28/22 tablet gentamicin 0.1 % topical ointment 1 appl topical QID #30 grams 03/28/22 Allergies Allergy/AdvReac Type Severity Reaction Status Date / Time codeine [CODEINE] Allergy Unknown delayed Verified 02/07/22 09:46 responses 02/24/17 Review of Systems Review of Systems: Constitutional : No Weight loss, No Fever, No Chills, No Night Sweats, No Fatigue, No Malaise ENT/Mouth : No Hearing loss, No Ear Pain, No Nasal Congestion, No Sinus Pain, No Hoarseness, No sore throat, No Rhinorrhea, No Swallowing Difficulty Eyes: No Eye Pain, No Swelling, No Redness, No Foreign Body, No Discharge, No Vision Changes Cardiovascular : No Chest Pain, No SOB, No Dyspnea on Exertion, No Orthopnea, No Edema, No Palpitations Respiratory : No Cough, No Sputum, No Wheezing, No Smoke Exposure, No Dyspnea Gastrointestinal : No Nausea, No Vomiting, No Diarrhea, No Constipation, No abdominal Pain, No Hematochezia, No Melena Genitourinary : no irregular bleeding, No Dysuria, No Urinary Frequency, No Hematuria, No Urinary Incontinence, No Urgency, No Flank Pain, No Urinary Flow Changes, No Hesitancy Musculoskeletal : No joint pain, No Myalgias, No Joint Swelling Skin : +left foot wound/swelling/redness, No additonal wound or Skin Lesions, No rash Neuro : No Weakness, No Numbness, No Paresthesias, No Loss of Consciousness, No Dizziness, No Headache Psych : No Anxiety/Panic, No Depression, No SI/HI/AH/VH, No Social Issues, Heme/Lymph: No Bruising, No Bleeding,No Lymphadenopathy Endocrine : No Polyuria, No Polydipsia, No Temperature Intolerance Yes all other systems are reviewed and are negative [facility] Past Medical History Attestation statement: The following information was validated with the patient. Source: old records reviewed and nursing notes reviewed Social History Social History Household Members: Spouse and Children Housing: House Do you presently have visiting nurse or other home services: No Patient Tobacco Use Status: Never used Tobacco Second Hand Smoke Exposure: No Substance Use Type: Marijuana Advance Directives: No Advance Directives Information Provided: No service: No Sexual orientation: Straight/Heterosexual Physical Exam Vital Signs: Vital Signs: Last Vital Signs Temp 98.4 F 03/28/22 10:36 Pulse 89 03/28/22 10:36 Resp 18 03/28/22 10:36 BP 103/66 03/28/22 10:36 Pulse Ox 99 03/28/22 10:36 O2 Del Method 03/28/22 10:36 BMI result Body Mass Index 26.6 vital signs have been reviewed as normal and appeared to be correct. Blood pressure normal Heart rate normal. Respiration rate normal. Temperature normal. Oxygen saturation normal. Appearance: Alert. Oriented X3. No acute distress. Head: Normal external exam. Normocephalic. Atraumatic. Eyes: PERRLA. EOMI. Conjunctiva and sclera normal. Eyelids normal. ENT: Pharynx normal. Uvula midline. Moist mucous membranes. Neck: Normal inspection. Neck supple. FROM. CVS: Normal heart rate and rhythm. Respiratory: No respiratory distress. Painless inspiration. Skin: Skin warm and dry. Normal skin color. Normal skin turgor. No additional rashes/lesions/lacerations noted. Extremities: To the left dorsal foot, lateral aspect, there is a callus that appears to have surrounding erythema/tenderness to palpation and warm to touch. No fluctuance or purulent drainage noted at this time. No streaking noted. Otherwise all other extremities exhibit normal range of motion nontender and no signs of infection to all other extremities. There is no lower extremity edema or calf tenderness noted. Neuro: Oriented X 3. No motor deficit. No sensory deficit. Reflexes normal. Normal steady gait. No focal neuro deficits noted. Vascular: + radial pulses/+ 2 distal pedal pulses/+2 dorsalis pedis b/l. Normal cap refill. No cyanosis noted to upper extremity nails and lower extremity toes nails. Course Course Course Narrative: X-ray revealed only soft tissue swelling at the lateral midfoot. No subcutaneous gas or acute osseous findings. Moderate osteoarthritis of the ankle joint. Therefore at this time no additional labs or imaging indicated. Will DC home with antibiotics and referral to the informatics pharmacist and instructions to follow-up with the wound clinic as scheduled this month on the . And to return if any new or worsening symptoms. Patient understands agrees with this plan. MDM - Wound/Laceration Medical Records Attestation: I reviewed the patient's medical records. Imaging Data left foot xray: Attestation: I personally reviewed and interpreted this imaging study as follows: Radiologist's impression: FINDINGS: [id number] osteoarthritis in the talocrural joint is characterized by nonuniform joint space narrowing, marginal osteophytes, articular cortical irregularity, subcortical cystic change. Small enthesopathic spurs are present at the Achilles tendon insertion and plantar fascial origin on the calcaneus. Soft tissue swelling is evident at the midfoot, most pronounced laterally. No subcutaneous gas. No evidence of osteomyelitis. XR/XR foot LT min 3V IMPRESSION: Soft tissue swelling at the lateral midfoot. No subcutaneous gas or acute osseous findings. ? 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 Discharge Plan Discharge Clinical Impression: Callus of foot, Cellulitis of foot, left Patient Disposition: Home, Self-Care Instructions: Cellulitis (ED) Prescriptions: New gentamicin 0.1 % ointment 1 appl topical QID Qty: 30 1RF doxycycline monohydrate 100 mg tablet 100 mg PO BID 10 Days Qty: 20 0RF cephalexin 500 mg capsule 500 mg PO Q6H 10 Days Qty: 40 0RF No Action metformin 500 mg tablet extended release 24 hr 2 tab PO BID trazodone 50 mg Tablet 50 mg PO BEDTIME PRN (Reason: Insomnia) Qty: 15 0RF divalproex 125 mg Capsule, Delayed Rel Sprinkle 125 mg PO BID Qty: 60 0RF metoprolol tartrate 25 mg Tablet 25 mg PO BID Qty: 60 0RF Protocol: Hold for SBP/HR < HOLD for SBP < : 90 HOLD for HR < : 60 valsartan 80 mg tablet 1 tab PO DAILY Qty: 30 0RF bupropion HCl 300 mg tablet extended release 24 hr 1 tab PO DAILY Qty: 30 0RF bupropion HCl 150 mg tablet extended release 24 hr 1 tab PO DAILY Qty: 30 0RF Januvia 50 mg tablet 50 mg PO DAILY Qty: 30 0RF Trulicity 1.5 mg/0.5 mL pen injector 1.5 mg subcut LUCIA@0900 Qty: 4 0RF aripiprazole [Abilify] 2 mg tablet 2 mg PO DAILY Qty: 30 0RF Referrals: Manpreet Tabares MD [Primary Care Provider] - 2 days Olivier Newell [Physician] - (Call tomorrow to make a follow-up appointment within the next 1-2 weeks) Stand Alone Forms: Work/School Release
== END 2022-03-28 18:08 | disposition home or self-care (01) ==
PROVIDERS: Emergency Provider Emergency Medicine; PCP Family Medicine
DX: L84 Corns and callosities (principal); L03.116 Cellulitis of left lower limb; Z79.899 Other long term (current) drug therapy
CPT/HCPCS: 73630; 99282; 99283

== ENCOUNTER 2022-04-01 14:27 | Outpatient (RCR) | payer BC, SELFPAY | END 2022-05-09 14:06 | disposition home or self-care (01) | LOC: HO.WCC 14:27 | PROVIDERS: PCP Family Medicine; Visit Provider Physician Assistant | DX: E11.621 Type 2 diabetes mellitus with foot ulcer (principal); L97.525 Non-pressure chronic ulcer of other part of left foot with muscle involvement without evidence of necrosis; E11.69 Type 2 diabetes mellitus with other specified complication; M86.472 Chronic osteomyelitis with draining sinus, left ankle and foot; L53.9 Erythematous condition, unspecified; I10 Essential (primary) hypertension; F17.200 Nicotine dependence, unspecified, uncomplicated; Z79.2 Long term (current) use of antibiotics | CPT/HCPCS: 97597; 97602; 99212 ==

== ENCOUNTER 2022-04-09 19:17 | Inpatient (IN) | payer BC, SELFPAY ==
--- NOTE | ~2022-04-09 | MR_ITS ---
EXAMINATION: MRI FOOT WITHOUT AND WITH CONTRAST, LEFT CLINICAL INFORMATION: Left foot pain, swelling, wound. Evaluate for 4th metatarsal osteomyelitis. COMPARISON: Left foot radiographs dated 03/28/2022. TECHNIQUE: Multisequence MR imaging of the left foot was obtained before and after the IV administration of 7.5 mL Gadavist contrast on a high-field strength scanner. FINDINGS: Soft tissue ulceration adjacent to the base of the 5th metatarsal with irregular fluid extending medially measuring up to 1.8 cm in ML dimension. Adjacent subcutaneous edema and enhancement with overlying skin thickening. Increased T2 and decreased T1 signal within the underlying base of the 5th metatarsal with mild periosteal reaction as well as postcontrast enhancement consistent with acute osteomyelitis. No stress reaction or fracture. No concerning lytic or blastic osseous lesion. Prominent edema throughout the intrinsic musculature of the foot which can be seen in diabetic patients. The visualized flexor and extensor tendons are intact. The Lisfranc ligament is intact. Prominent dorsal subcutaneous edema without an organized fluid collection. MR/MR foot LT wo/w con IMPRESSION: Soft tissue ulceration plantar and lateral to the 5th metatarsal base with a possible small subcutaneous abscess. Adjacent cellulitis and findings consistent with acute osteomyelitis in the base of the 5th metatarsal. Prominent edema throughout the intrinsic musculature of the foot which can be seen in diabetic patients.
[2022-04-09 19:23] VITALS: PULSE 102; RESP 18; TEMP 36.7; O2SAT 99; BMI 25.4
[2022-04-10] VITALS (9 sets, daily range): BP systolic 142–178; BP diastolic 86–97; PULSE 66–86; RESP 15–18; TEMP 36–37; O2SAT 97–100
--- NOTE | 2022-04-10 01:39 | ECG_ITS ---
Test Reason : chest pain Blood Pressure : / mmHG Vent. Rate : 093 BPM Atrial Rate : 093 BPM P-R Int : 126 ms QRS Dur : 136 ms QT Int : 408 ms P-R-T Axes : 034 010 110 degrees QTc Int : 507 ms Normal sinus rhythm Left bundle branch block Abnormal ECG When compared with ECG of 02-MAR-2022 17:53, Nonspecific T wave abnormality no longer evident in Inferior leads Referred By: Generic ED Physician Electronically Signed By:JENARO DOWLING
[2022-04-10 01:52] LABS: MANUAL DIFF FLAG NO
[2022-04-10 01:56] LABS: Basophils Absolute Auto 0.1 X10*3/uL (0.0-0.2); Basophils Percent Auto 0.6 % (0-2); Eosinophils Absolute Auto 0.2 X10*3/uL (0.0-0.4); Hematocrit 44.5 % (42.0-52.0); Hemoglobin 14.7 g/dl (14.0-18.0); Imm Gran Abs Auto 0.07 X10*3/uL (0.00-0.03); Imm Gran Pct Auto 0.7 % (0.0-0.4); Lymphocytes Absolute Auto 2.9 X10*3/uL (1.2-4.9); Mean Corpuscular Hemoglobin 28.5 pg (27.0-33.0); Mean Corpuscular Volume 86.2 fL (80.0-98.0); Mean Platelet Volume 10.3 fL (9.4-12.4); Monocytes Absolute Auto 1.1 X10*3/uL (0.1-1.2); Monocytes Percent Auto 11.1 % (2-11); Neutrophils Absolute Auto 5.3 x10*3/uL (2.0-8.3); Neutrophils Percent Auto 55.6 % (45-73); Platelet Count 201 X10*3/uL (160-400); Red Blood Count 5.16 X10*6/uL (4.60-5.80); Red Cell Distribution Width 13.9 % (11.0-16.0); White Blood Count 9.6 X10*3/uL (4.8-10.8)
[2022-04-10 02:27] LABS: Anion Gap 19 (12-20); Blood Urea Nitrogen 17 mg/dL (9-16); Calcium 9.4 mg/dL (8.4-10.2); Carbon Dioxide 17 mmol/L (22-29); Chloride 114 mmol/L (96-108); Creatinine Clr Calc Pharmacy 83.8; Estimated Glomerular Filt Rate > 60; Glucose Random 119 mg/dL (60-115); Potassium 4.7 mmol/L (3.3-5.1); Sodium 145 mmol/L (135-145)
--- NOTE | 2022-04-10 06:22 | ED_ITS ---
HPI - Wound/Laceration General Chief Complaint: Wound/Laceration Stated Complaint: L food wound Time Seen by Provider: 04/10/22 04:08 Source: patient Mode of arrival: ambulatory Limitations: no limitations History of Present Illness HPI narrative: Patient diabetic, hypertension came with worsening of chronic wound on the lateral aspect of left foot seen at wound clinic will advise him to get MRI. Patient been on taking doxycycline and Keflex for last 1 week still having a purulent discharge and sore to touch with surrounding erythema no fever no chills Related Data Home Medications Medication Instructions Recorded Confirmed metformin 500 mg tablet,extended 2 tab PO BID 12/08/21 02/19/22 release 24 hr Previous Rx's Medication Instructions Recorded aripiprazole 2 mg tablet (Abilify) 2 mg PO DAILY #30 tabs 03/14/22 bupropion HCl 150 mg 24 hr tablet, 1 tab PO DAILY #30 tabs 03/14/22 extended release bupropion HCl 300 mg 24 hr tablet, 1 tab PO DAILY #30 tabs 03/14/22 extended release divalproex 125 mg capsule,delayed 125 mg PO BID #60 caps 03/14/22 release sprinkle dulaglutide 1.5 mg/0.5 mL 1.5 mg (0.5 mL) subcut LUCIA@0900 #4 03/14/22 subcutaneous pen injector multiple units (Trulicity) metoprolol tartrate 25 mg tablet 25 mg PO BID #60 tabs 03/14/22 sitagliptin 50 mg tablet (Januvia) 50 mg PO DAILY #30 tabs 03/14/22 trazodone 50 mg tablet 50 mg PO BEDTIME PRN Insomnia #15 03/14/22 tabs valsartan 80 mg tablet 1 tab PO DAILY #30 tabs 03/14/22 cephalexin 500 mg capsule 500 mg PO Q6H 10 days #40 caps 03/28/22 doxycycline monohydrate 100 mg 100 mg PO BID 10 days #20 tabs 03/28/22 tablet gentamicin 0.1 % topical ointment 1 appl topical QID #30 grams 03/28/22 Allergies Allergy/AdvReac Type Severity Reaction Status Date / Time codeine [CODEINE] Allergy Unknown delayed Verified 02/07/22 09:46 responses 02/24/17 Review of Systems Review of Systems: Yes all other systems are reviewed and are negative PMFSH Social History Social History Household Members: Spouse and Children Housing: House Do you presently have visiting nurse or other home services: No Alcohol intake: current Alcohol intake frequency: former alcohol drinker Patient Tobacco Use Status: Never used Tobacco Second Hand Smoke Exposure: No Use of substances other than those prescribed or required for medical reasons: No Substance Use Type: Marijuana Advance Directives: Yes Advance Directives Information Provided: No Advance Directives on File: No service: No Sexual orientation: Straight/Heterosexual Physical Exam Vital Signs: Vital Signs: Last Vital Signs Temp 98.2 F 04/10/22 06:00 Pulse 80 04/10/22 06:00 Resp 16 04/10/22 06:00 BP 156/86 H 04/10/22 06:00 Pulse Ox 97 04/10/22 06:00 O2 Del Method 04/10/22 06:00 BMI result Body Mass Index 25.4 Appearance: Alert. Oriented X3. No acute distress. Eyes: PERRLA, No Nystagmus ENT: Pharynx normal. Oral Mucosa moist Neck: Normal inspection. Neck supple. CVS: Normal heart rate and rhythm. Pulses normal. Respiratory: No respiratory distress. Equal air entry bilateral, no wheezing/rales/rhonchi Abdomen: Soft and nontender. Bowel sounds are present, no mass palpable, no CVA tenderness Skin: Skin warm and dry. Normal skin color. Normal skin turgor. Extremities: No lower extremity edema. No calf tenderness 3 x 3 cm erythematous area with small ulcer in the lateral aspect of left foot draining serosanguineous fluid tender to touch Neuro: Oriented X 3. No motor deficit. No sensory deficit.No cerebellar signs , cranial nerves II-XII intact Extrem: Ankle/foot/toe images: 1. 3 x 3 cm erythematous area with ulcer in the center and draining serosanguineous fluid MDM - Wound/Laceration MDM Narrative Medical decision making narrative: Patient nonhealing ulcer left foot with history of diabetes on oral antibiotic doxycycline and Keflex wound is still draining serosanguineous fluid will get MRI to rule out osteomyelitis. Meanwhile patient will receive vancomycin and Zosyn check the lactic acid and blood culture Lab Data Attestation: I reviewed the patient's lab results. Result diagrams: 04/10/22 01:42 04/10/22 01:42 Labs: Lab Results 04/10/22 04/10/22 Range/Units 01:42 01:42 WBC 9.6 (4.8-10.8) X10*3/uL RBC 5.16 (4.60-5.80) X10*6/uL Hgb 14.7 (14.0-18.0) g/dl Hct 44.5 (42.0-52.0) % MCV 86.2 (80.0-98.0) fL MCH 28.5 (27.0-33.0) pg MCHC 33.0 (31.0-36.0) g/dl RDW 13.9 (11.0-16.0) % Plt Count 201 (160-400) X10*3/uL MPV 10.3 (9.4-12.4) fL Immature Gran % (Auto) 0.7 H (0.0-0.4) % Neut % (Auto) 55.6 (45-73) % Lymph % (Auto) 30.0 (20-40) % [place] % (Auto) 11.1 H (2-11) % Eos % (Auto) 2.0 (0-4) % Baso % (Auto) 0.6 (0-2) % Lymph # (Auto) 2.9 (1.2-4.9) X10*3/uL [place] # (Auto) 1.1 (0.1-1.2) X10*3/uL Eos # (Auto) 0.2 (0.0-0.4) X10*3/uL Baso # (Auto) 0.1 (0.0-0.2) X10*3/uL Abs Immat Gran (auto) 0.07 H (0.00-0.03) X10*3/uL Absolute Neuts (auto) 5.3 (2.0-8.3) x10*3/uL Absolute Nucleated RBC 0.000 (0.0-0.012) X10*3/uL Nucleated RBC % (auto) 0.0 (0.0-0.2) /100WBC Sodium 145 (135-145) mmol/L Potassium 4.7 (3.3-5.1) mmol/L Chloride 114 H (96-108) mmol/L Carbon Dioxide 17 L (22-29) mmol/L Anion Gap 19 (12-20) BUN 17 H (9-16) mg/dL Creatinine 0.94 (0.5-1.4) mg/dL Estim Creat Clear Calc 83.8 Estimated GFR > 60 Random Glucose 119 H (60-115) mg/dL Calcium 9.4 D (8.4-10.2) mg/dL Discharge Plan Discharge Clinical Impression: Diabetic foot ulcer Patient Disposition: Still a Patient Prescriptions: No Action metformin 500 mg tablet extended release 24 hr 2 tab PO BID trazodone 50 mg Tablet 50 mg PO BEDTIME PRN (Reason: Insomnia) Qty: 15 0RF divalproex 125 mg Capsule, Delayed Rel Sprinkle 125 mg PO BID Qty: 60 0RF metoprolol tartrate 25 mg Tablet 25 mg PO BID Qty: 60 0RF Protocol: Hold for SBP/HR < HOLD for SBP < : 90 HOLD for HR < : 60 valsartan 80 mg tablet 1 tab PO DAILY Qty: 30 0RF bupropion HCl 300 mg tablet extended release 24 hr 1 tab PO DAILY Qty: 30 0RF bupropion HCl 150 mg tablet extended release 24 hr 1 tab PO DAILY Qty: 30 0RF Januvia 50 mg tablet 50 mg PO DAILY Qty: 30 0RF Trulicity 1.5 mg/0.5 mL pen injector 1.5 mg subcut LUCIA@0900 Qty: 4 0RF aripiprazole [Abilify] 2 mg tablet 2 mg PO DAILY Qty: 30 0RF gentamicin 0.1 % ointment 1 appl topical QID Qty: 30 1RF doxycycline monohydrate 100 mg tablet 100 mg PO BID 10 Days Qty: 20 0RF cephalexin 500 mg capsule 500 mg PO Q6H 10 Days Qty: 40 0RF
[2022-04-10 06:59] LABS: Lactic Acid 1.3 mmol/L (0.5-2.0)
[2022-04-10] MEDS: Piperacillin Sodium/Tazobactam 3.375 GM in 0.9 % Sodium Chloride 50 ML IV ×2 (07:11→14:44)
--- NOTE | 2022-04-10 07:45 | PC.NURSE ---
PT ALERT AND ORIENTED, SKIN PWD, RESPIRATIONS EVEN AND UNLABORED, PT PRESENTS TO THE ED WITH A RIGHT FOOT WOUND, THE WOUND IS LOCATED ON THE INNER PART OF THE FOOT/FOOT SLIGHTLY RED, POSITIVE PEDAL PULSES
[2022-04-10] MEDS: Metoprolol Tartrate 25 MG TABLET PO ×2 (12:45→22:10)
[2022-04-10] MEDS: oxyCODONE HCl Immed Release 5 MG TABLET 10 MG PO (13:08)
[2022-04-10] MEDS: Valsartan 80 MG TABLET PO (13:08)
--- NOTE | 2022-04-10 15:32 | PM.IMHP ---
History of Present Illness Date of Service: 04/10/22 Chief Complaint: Foot wound 56-year-old man presented to the ER with complaints of worsening pain to his left foot. He reports that he discussed this with the wound clinic and told him he had more pain and they told him to come to the ER for further evaluation. Reports he has had this diabetic foot wound to his left foot since approximately January. He has had some episodes with discharge and it heals up. He has been seen by the wound clinic for wound care. He has been on and off antibiotics. More recently it appears that the wound has been pretty dry but now more painful. In the ED, MRI showed soft tissue ulceration to plantar and lateral aspect of the 5th metatarsal base with possible subcutaneous abscess with adjacent cellulitis and findings consistent with acute osteomyelitis in the base of the 5th metatarsal. He was given a dose of vancomycin and Zosyn. General surgery was consulted and is aware the patient will be admitted. He was not notice have any fever, chills, nausea, vomiting, diarrhea. Labs all within acceptable limits. He will be admitted for further management and treatment of diabetic foot wound with acute osteomyelitis. Review of Systems Review of Systems: Denies any recent fever chills or decrease in appetite respiratory denies any shortness of breath coverage production cardiovascular denies chest pain gastrointestinal denies any dysphagia abdominal pain nausea vomiting or diarrhea genitourinary denies any dysuria frequency or hematuria musculoskeletal denies any joint pain or swelling neuropsych denies any weakness or seizures all other systems reviewed are negative [facility] Medical History (Updated 04/10/22 @ 15:33 by Ana Vale NP) Depression Diabetic foot ulcer HTN (hypertension) LBBB (left bundle branch block) Suicidal ideation Type 2 diabetes mellitus with foot ulcer Family History (Updated 04/10/22 @ 16:17 by Ana Vale NP) Father Neck malignant neoplasm Surgical History (Updated 04/10/22 @ 16:17 by Ana Vale NP) H/O: vasectomy Social History Household Members: Spouse and Children Housing: House Do you presently have visiting nurse or other home services: No Alcohol intake: current Alcohol intake frequency: former alcohol drinker Patient Tobacco Use Status: Never used Tobacco Second Hand Smoke Exposure: No Use of substances other than those prescribed or required for medical reasons: No Substance Use Type: Marijuana Advance Directives: Yes Advance Directives Information Provided: No Advance Directives on File: No service: No Sexual orientation: Straight/Heterosexual Meds Allergies Allergy/AdvReac Type Severity Reaction Status Date / Time codeine [CODEINE] Allergy Unknown delayed Verified 02/07/22 09:46 responses 02/24/17 Active Medications: Current Medications Pharmacy Consult (Consult Rx Vancomycin Dosing) 1 each MISCELLANE DAILY PRN PRN Reason: Consult order Pharmacy Consult (Consult Rx Perform Med Rec) 1 each MISCELLANE ONCE PRN PRN Reason: Consult order Home Medications Medication Instructions Recorded Confirmed Last Taken Type metformin 500 mg tablet,extended 2 tab PO BID 12/08/21 04/10/22 04/09/22 09:00 History release 24 hr dulaglutide 1.5 mg/0.5 mL 1.5 mg subcut FR@0900 04/10/22 04/10/22 Unknown [facility] Physical Exam Vital Signs and Narrative: Vital Signs: Last Vital Signs Temp 97.7 F 04/10/22 12:19 Pulse 82 04/10/22 12:19 Resp 18 04/10/22 12:19 BP 178/97 H 04/10/22 12:19 Pulse Ox 99 04/10/22 12:19 O2 Del Method 04/10/22 12:19 BMI result Body Mass Index 25.4 Appearing in no acute distress head is normocephalic atraumatic eyes pupils are PERRLA sclera is anicteric mouth throat mucous membranes are intact and moist neck is supple no lymphadenopathy, no JVD noted lung sounds are clear to auscultation heart regular rate rhythm, clear S1, S2 positive bowel sounds, abdomen is soft, nontender neuro patient is alert x3, no focal deficits Left foot anterior aspect diabetic foot wound, no drainage noted some erythema Results Labs CBC and Chem 7: 04/10/22 01:42 04/10/22 01:42 Labs: Laboratory Results - last 24 hr 04/10/22 04/10/22 04/10/22 01:42 01:42 06:44 MCV 86.2 MCH 28.5 MCHC 33.0 RDW 13.9 Plt Count 201 MPV 10.3 Immature Gran % (Auto) 0.7 H Neut % (Auto) 55.6 Lymph % (Auto) 30.0 [place] % (Auto) 11.1 H Eos % (Auto) 2.0 Baso % (Auto) 0.6 Lymph # (Auto) 2.9 [place] # (Auto) 1.1 Eos # (Auto) 0.2 Baso # (Auto) 0.1 Abs Immat Gran (auto) 0.07 H Absolute Neuts (auto) 5.3 Absolute Nucleated RBC 0.000 Nucleated RBC % (auto) 0.0 Anion Gap 19 Estim Creat Clear Calc 83.8 Estimated GFR > 60 Random Glucose 119 H Lactic Acid 1.3 Calcium 9.4 D Imaging Radiologist's Impressions: Impressions Foot MRI 04/10/22 14:25 IMPRESSION: Soft tissue ulceration plantar and lateral to the 5th metatarsal base with a possible small subcutaneous abscess. Adjacent cellulitis and findings consistent with acute osteomyelitis in the base of the 5th metatarsal. Prominent edema throughout the intrinsic musculature of the foot which can be seen in diabetic patients. Assessment and Plan (1) Osteomyelitis: Qualifiers: Laterality: left Osteomyelitis location: foot Osteomyelitis type: unspecified type Qualified Code(s): M86.9 - Osteomyelitis, unspecified Status: Acute Plan 56-year-old man admitted with diabetic foot ulcer that has been present since January of this year Nonhealing diabetic foot ulcer MRI showed osteomyelitis with abscess General surgery consultation for possible incision and drainage Will continue vancomycin Zosyn Id consult Make NPO after midnight for possible procedure History of chest pain No acute coronary symptoms at this time Has had multiple workup including stress test and troponins in the past Hereported that he has an appointment at [facility] for cardiac catheterization in the neck is several weeks. Diabetes mellitus Sliding scale, ADA diet Hypertension Continue valsartan Mental health No thoughts of suicide ideation Continue home medications DVT prophylaxis Lovenox Attending Dr. Kingston Full code Two midnight admission for treatment of nonhealing diabetic foot ulcer requiring IV antibiotics. High risk for decompensation due to history of diabetes and labile Mental Health Quality Stroke Does the patient have a stroke diagnosis?: No VTE Prior VTE?: No VTE Risk Level:: Medical - moderate - high VTE Device Contraindication: Treatment Not Indicated VTE Drug Contraindication: N/A - Med Ordered
[2022-04-10 15:46] LABS: COVID-19 Test Negative (Negative)
--- NOTE | 2022-04-10 15:52 | PHA.MEDREC ---
Pharmacy Consult ? Medication Reconciliation Pharmacy has completed the medication reconciliation. Patient states he does not take divalproex. Patient also says he is on doxycycline and cephalexin currently with a few days left of treatment. Trulicity taken on fridays.
[2022-04-10 15:55] LABS: Troponin-I High Sensitivity 6.4 ng/L (<3.5-35.0)
--- NOTE | 2022-04-10 16:11 | PM.CNGS ---
History of Present Illness Consult details Consult date: 04/10/22 Narrative: 56-year-old male patient with history of diabetes mellitus presenting with pain in the left foot. Reports injuring the foot during the summer subsequently developing a nonhealing wound in the lateral surface of the left foot. He has undergone 2 courses of oral antibiotics without significant improvement. [facility] and sent to the emergency department for IV antibiotics. He denies previous surgery in the foot but did have a needle aspiration attempted in the emergency department once before. This produced only bloody fluid. Workup in the emergency department today revealed a normal WBC. MRI revealed findings suggestive of osteomyelitis involving the proximal 5th metatarsal. There is a small fluid collection in the subcutaneous tissue which may possibly be an abscess. Surgical consultation requested for possible incision and drainage. The patient is currently in the emergency department [place]. Review of Systems Review of Systems: Yes all other systems are reviewed and are negative Constitutional: Constitutional: Denies chills, Denies fever(s) and Denies lethargy Cardiovascular: Cardiovascular: Denies chest pain and Reports pedal edema Musculoskeletal: Musculoskeletal: Reports as per HPI Integumentary/Breasts: Skin/Breast: Reports as per HPI PMFSH Past Medical History Medical History Depression Diabetic foot ulcer HTN (hypertension) LBBB (left bundle branch block) Suicidal ideation Type 2 diabetes mellitus with foot ulcer Family History Family History Father Neck malignant neoplasm Surgical History Surgical History H/O: vasectomy Social History Social History Household Members: Spouse and Children Housing: House Do you presently have visiting nurse or other home services: No Alcohol intake: current Alcohol intake frequency: former alcohol drinker Patient Tobacco Use Status: Never used Tobacco Second Hand Smoke Exposure: No Use of substances other than those prescribed or required for medical reasons: No Substance Use Type: Marijuana Advance Directives: Yes Advance Directives Information Provided: No Advance Directives on File: No service: No Sexual orientation: Straight/Heterosexual Meds Allergies Allergy/AdvReac Type Severity Reaction Status Date / Time codeine [CODEINE] Allergy Unknown delayed Verified 02/07/22 09:46 responses 02/24/17 Active Medications: Current Medications Acetaminophen (Acetaminophen 325 Mg Tablet) 650 mg PO Q6H PRN PRN Reason: Pain, Mild (Pain Scale 1-3) Dextrose (Dextrose 50 % 25 Gm/50 Ml Syringe) 25 gm IVPUSH Q15M PRN; Protocol PRN Reason: per Hypoglycemia Standing Ord. Enoxaparin Sodium (Enoxaparin Sodium 40 Mg/0.4 Ml Syringe) 40 mg SUBCUT Q24H MICHELLE Glucose (Glucose Gel 15 Gm Gel..Gram.) 15 gm PO Q15M PRN; Protocol PRN Reason: per Hypoglycemia Standing Ord. Piperacillin Sod/Tazobactam (Sod 2.25 gm/ Sodium Chloride) 50 mls @ 100 mls/hr IV Q6H MICHELLE Vancomycin HCl 750 mg/ Sodium (Chloride) 265 mls @ 265 mls/hr IV Q12H MICHELLE Insulin Human Lispro (Insulin Lispro 100 Unit/Ml 3 Ml Vial) 0 unit SUBCUT QIDACHS [facility]; Protocol Ondansetron HCl (Ondansetron Hcl 4 Mg/2 Ml Vial) 4 mg IVPUSH Q8H PRN PRN Reason: Nausea and Vomiting Pharmacy Consult (Consult Rx Vancomycin Dosing) 1 each MISCELLANE DAILY PRN PRN Reason: Consult order Pharmacy Consult (Consult Rx Perform Med Rec) 1 each MISCELLANE ONCE PRN PRN Reason: Consult order Pharmacy Consult (Consult Rx Vancomycin Dosing) 1 each MISCELLANE DAILY PRN PRN Reason: Consult order Sodium Chloride (0.9 % Sodium Chloride Flush 3 Ml Syringe) 3 ml IVFLUSH QSHIFT [facility] Home Medications Medication Instructions Recorded Confirmed Last Taken Type metformin 500 mg tablet,extended 2 tab PO BID 12/08/21 04/10/22 04/09/22 09:00 History release 24 hr dulaglutide 1.5 mg/0.5 mL 1.5 mg subcut FR@0904/10/22 04/10/22 Unknown [facility] Physical Exam Vital Signs: Vital Signs: Last Vital Signs Temp 98.6 F 04/10/22 15:48 Pulse 72 04/10/22 15:48 Resp 16 04/10/22 15:48 BP 142/94 H 04/10/22 15:48 Pulse Ox 100 04/10/22 15:48 O2 Del Method 04/10/22 15:48 BMI result Body Mass Index 25.4 Const: General: well developed Nutritional Appearance: well nourished Orientation/consciousness: patient oriented x3 Limitations: no limitations HEENT: Head: Yes normocephalic and Yes atraumatic Resp: Effort & Inspection: normal respiratory effort, no audible wheezes, no cough and no respiratory distress GI: Inspection: Yes normal to inspection Skin: Other: Warm, dry, no rash Neuro: General: patient oriented x3 Extrem: Other: Left foot with an area of edema at the base of the 5th metatarsal measuring approximately 2 cm in diameter. The area is soft with a centralized ulcer noted. Small amount of serous fluid is identified. There is localized tenderness. No edema or erythema noted in the surrounding foot. No other ulceration noted in the toes or plantar surface. Ankle/foot/toe images: 1. Site of edema/tenderness Results Labs Result diagrams: 04/10/22 01:42 04/10/22 01:42 Labs: Abnormal lab results 04/10/22 04/10/22 Range/Units 01:42 01:42 Immature Gran % (Auto) 0.7 H (0.0-0.4) % [place] % (Auto) 11.1 H (2-11) % Abs Immat Gran (auto) 0.07 H (0.00-0.03) X10*3/uL Chloride 114 H (96-108) mmol/L Carbon Dioxide 17 L (22-29) mmol/L BUN 17 H (9-16) mg/dL Random Glucose 119 H (60-115) mg/dL Short CBC 04/10/22 Range/Units 01:42 WBC 9.6 (4.8-10.8) X10*3/uL Hgb 14.7 (14.0-18.0) g/dl Hct 44.5 (42.0-52.0) % Plt Count 201 (160-400) X10*3/uL BMP 04/10/22 01:42 Sodium 145 Potassium 4.7 Chloride 114 H Carbon Dioxide 17 L BUN 17 H Creatinine 0.94 Calcium 9.4 D All other labs normal. Assessment and Plan (1) Osteomyelitis: Qualifiers: Laterality: left Osteomyelitis location: foot Osteomyelitis type: unspecified type Qualified Code(s): M86.9 - Osteomyelitis, unspecified Status: Acute Plan 56-year-old male patient with diabetes presenting with a painful left foot with possible abscess and osteomyelitis. I discussed possible incision and drainage with wound culture with the patient. He is reluctant to consent to this and wishes to the give the intravenous antibiotics a chance first. He understands that if the infection does not improve he may require operative drainage and possible bone biopsy for culture. I will follow along during his hospitalization. Procedures Date of Service Date of Service: 04/10/22
[2022-04-10] MEDS: Enoxaparin Sodium 40 MG/0.4 ML SYRINGE SUBCUT (16:59)
[2022-04-10 17:53] LABS: Glucose, Whole Blood 98 mg/dL (60-115)
[2022-04-10] MEDS: vancomycin HCL 750 MG in 0.9 % Sodium Chloride 250 ML 265 MG IV (22:10)
[2022-04-10 22:19] LABS: Glucose, Whole Blood 110 mg/dL (60-115)
[2022-04-10] MEDS: Piperacillin Sodium/Tazobactam 2.25 GM in 0.9 % Sodium Chloride 50 ML IV (23:26)
[2022-04-11] MEDS: Piperacillin Sodium/Tazobactam 2.25 GM in 0.9 % Sodium Chloride 50 ML IV ×4 (02:55→21:02)
[2022-04-11] MEDS: traMADoL HCL 50 MG TABLET PO (02:55)
[2022-04-11 05:59] VITALS: BP 175/95; PULSE 70; RESP 14; O2SAT 97
[2022-04-11 06:08] LABS: Hematocrit 42.3 % (42.0-52.0); Hemoglobin 13.9 g/dl (14.0-18.0); Mean Corpuscular HGB Conc 32.9 g/dl (31.0-36.0); Mean Corpuscular Hemoglobin 28.5 pg (27.0-33.0); Mean Corpuscular Volume 86.7 fL (80.0-98.0); Platelet Count 187 X10*3/uL (160-400); Red Blood Count 4.88 X10*6/uL (4.60-5.80); Red Cell Distribution Width 13.9 % (11.0-16.0); White Blood Count 7.1 X10*3/uL (4.8-10.8)
[2022-04-11 06:21] LABS: Anion Gap 15 (12-20); Blood Urea Nitrogen 15 mg/dL (9-16); Calcium 8.9 mg/dL (8.4-10.2); Carbon Dioxide 26 mmol/L (22-29); Chloride 111 mmol/L (96-108); Creatinine Clr Calc Pharmacy 77.3; Estimated Glomerular Filt Rate > 60; Glucose Random 96 mg/dL (60-115); Potassium 3.8 mmol/L (3.3-5.1); Sodium 148 mmol/L (135-145)
[2022-04-11 07:35] VITALS: BP 162/96; PULSE 80; RESP 18; O2SAT 100
[2022-04-11 07:36] LABS: Glucose, Whole Blood 82 mg/dL (60-115)
[2022-04-11 08:00] VITALS: BP 158/88; PULSE 70; RESP 16; TEMP 36.2; O2SAT 99
[2022-04-11] MEDS: buPROPion HCl XL 150 MG TAB.ER.24H PO (08:56)
[2022-04-11] MEDS: Metoprolol Tartrate 25 MG TABLET PO ×2 (08:56→20:02)
[2022-04-11] MEDS: HYDROmorphone HCl 0.5 MG/0.5 ML SYRINGE IVPUSH (08:57)
[2022-04-11] MEDS: 0.9 % Sodium Chloride Flush 3 ML SYRINGE IVFLUSH ×3 (08:58→23:40)
[2022-04-11] MEDS: vancomycin HCL 750 MG in 0.9 % Sodium Chloride 250 ML 265 MG IV ×2 (09:58→20:01)
[2022-04-11 10:00] VITALS: BMI 25.4
[2022-04-11] MEDS: ARIPiprazole 2 MG TABLET PO (10:29)
[2022-04-11] MEDS: Valsartan 80 MG TABLET PO (10:29)
[2022-04-11] MEDS: buPROPion HCl XL 300 MG TAB.ER.24H PO (10:30)
[2022-04-11] MEDS: oxyCODONE HCl Immed Release 5 MG TABLET PO ×3 (10:30→21:34)
[2022-04-11 11:02] VITALS: BP 156/76; PULSE 61; RESP 16; TEMP 36.2; O2SAT 99
--- NOTE | 2022-04-11 11:05 | P.PNIM_ITS ---
Subjective Subjective Date of Service: 04/11/22 Interval History: Seen for follow up on osteomyelitis and foot ulcer with abscess Pt feels foot is more swollen. Reporting uncontrolled pain 12/21. Reporting chest pain which is chronic, no change in quality or severity. Review of Systems General: No fevers, malaise, unintentional weight loss Cardiovascular: +chest pain. No palpitations, or leg edema Respiratory: No shortness of breath, wheezing, cough GI: No abdominal pain, nausea, vomiting, diarrhea, constipation, melena, hematochezia MSK: +pain left foot Neuro: No headaches, weakness, paresthesias Skin: +swelling/redness L foot. No rashes or lesions Physical Exam Vital Signs: Vital Signs: Last Vital Signs Temp 97.1 F 04/11/22 11:02 Pulse 61 04/11/22 11:02 Resp 16 04/11/22 11:02 BP 156/76 H 04/11/22 11:02 Pulse Ox 99 04/11/22 11:02 O2 Del Method 04/11/22 11:02 BMI result Body Mass Index 25.4 Constitutional - Awake and Alert, No apparent distress Eyes - PERRLA, EOMI Cardiovascular - S1S2, RRR, No edema Respiratory - Normal lung expansion, Normal respiratory effort, No respiratory distress, CTA bilaterally Gastrointestinal - NT / ND; +BS; No rebound or guarding Extremities - no calf tenderness bilaterally, no swelling Skin - Warm/Dry. Erythema, warmth swelling lateral left foot with increased swelling and induration lateral midfoot. See photo Neurological - Alert & oriented x3, No focal deficit Psychological - Appropriate affect Objective Data Active Medications Acetaminophen (Acetaminophen 325 Mg Tablet) 650 mg PO Q6H PRN PRN Reason: Pain, Mild (Pain Scale 1-3) Aripiprazole (Aripiprazole 2 Mg Tablet) 2 mg PO DAILY [facility] Last Admin: 04/11/22 10:29 Dose: 2 mg Documented By: ANGELA Bupropion HCl (Bupropion Hcl Xl 150 Mg Tab.Er.24h) 150 mg PO DAILY [facility] Last Admin: 04/11/22 08:56 Dose: 150 mg Documented By: ELI Bupropion HCl (Bupropion Hcl Xl 300 Mg Tab.Er.24h) 300 mg PO DAILY [facility] Last Admin: 04/11/22 10:30 Dose: 300 mg Documented By: ANGELA Dextrose (Dextrose 50 % 25 Gm/50 Ml Syringe) 25 gm IVPUSH Q15M PRN; Protocol PRN Reason: per Hypoglycemia Standing Ord. Enoxaparin Sodium (Enoxaparin Sodium 40 Mg/0.4 Ml Syringe) 40 mg SUBCUT Q24H [facility] Last Admin: 04/10/22 16:59 Dose: 40 mg Documented By: MAURICEEBBRENT Glucose (Glucose Gel 15 Gm Gel..Gram.) 15 gm PO Q15M PRN; Protocol PRN Reason: per Hypoglycemia Standing Ord. Hydromorphone HCl (Hydromorphone Hcl 0.5 Mg/0.5 Ml Syringe) 0.5 mg IVPUSH Q4H PRN; Protocol PRN Reason: Pain, Severe (Pain Scale 7-10) Last Admin: 04/11/22 08:57 Dose: 0.5 mg Documented By: ELI Piperacillin Sod/Tazobactam (Sod 2.25 gm/ Sodium Chloride) 50 mls @ 100 mls/hr IV Q6H [facility] Last Infusion: 04/11/22 10:28 Dose: 0 mls/hr Documented By: ANGELA Vancomycin HCl 750 mg/ Sodium (Chloride) 265 mls @ 265 mls/hr IV Q12H [facility] Last Admin: 04/11/22 09:58 Dose: 265 mls/hr Documented By: ELI Insulin Human Lispro (Insulin Lispro 100 Unit/Ml 3 Ml Vial) 0 unit SUBCUT QIDACHS [facility]; Protocol Last Admin: 04/11/22 08:34 Dose: Not Given Documented By: MILKA Non-Admin Reason: No Insulin Coverage Metoprolol Tartrate (Metoprolol Tartrate 25 Mg Tablet) 25 mg PO BID [facility]; Protocol Last Admin: 04/11/22 08:56 Dose: 25 mg Documented By: ELI Non-Formulary Medication (Dulaglutide [Trulicity]) 1.5 mg SUBCUT FR@0900 [facility] Ondansetron HCl (Ondansetron Hcl 4 Mg/2 Ml Vial) 4 mg IVPUSH Q8H PRN PRN Reason: Nausea and Vomiting Oxycodone HCl (Oxycodone Hcl Immed Release 5 Mg Tablet) 5 mg PO Q4H PRN PRN Reason: Pain, Moderate (Pain Scale 4-6 Last Admin: 04/11/22 10:30 Dose: 5 mg Documented By: ANGELA Pharmacy Consult (Consult Rx Vancomycin Dosing) 1 each MISCELLANE DAILY PRN PRN Reason: Consult order Pharmacy Consult (Consult Rx Perform Med Rec) 1 each MISCELLANE ONCE PRN PRN Reason: Consult order Pharmacy Consult (Consult Rx Vancomycin Dosing) 1 each MISCELLANE DAILY PRN PRN Reason: Consult order Sodium Chloride (0.9 % Sodium Chloride Flush 3 Ml Syringe) 3 ml IVFLUSH QSHIFT [facility] Last Admin: 04/11/22 08:58 Dose: 3 ml Documented By: ELI Valsartan (Valsartan 80 Mg Tablet) 80 mg PO DAILY [facility]; Protocol Last Admin: 04/11/22 10:29 Dose: 80 mg Documented By: ANGELA Labs CBC & Chem 7: 04/11/22 04:39 04/11/22 04:39 Labs: Laboratory Results - last 24 hr 04/10/22 04/10/22 04/10/22 15:25 15:25 17:49 MCV MCH MCHC RDW Plt Count MPV Absolute Nucleated RBC Nucleated RBC % (auto) Anion Gap Estim Creat Clear Calc Estimated GFR POC Glucose 98 Random Glucose Calcium Troponin I High Sens 6.4 D COVID-19 ([facility]) Negative COVID-19 Clin Com See Note 04/10/22 04/11/22 04/11/22 22:14 04:39 04:39 MCV 86.7 MCH 28.5 MCHC 32.9 RDW 13.9 Plt Count 187 MPV 10.0 Absolute Nucleated RBC 0.000 Nucleated RBC % (auto) 0.0 Anion Gap 15 Estim Creat Clear Calc 77.3 Estimated GFR > 60 POC Glucose 110 Random Glucose 96 Calcium 8.9 Troponin I High Sens COVID-19 ([facility]) COVID-19 Clin Com 04/11/22 07:32 MCV MCH MCHC RDW Plt Count MPV Absolute Nucleated RBC Nucleated RBC % (auto) Anion Gap Estim Creat Clear Calc Estimated GFR POC Glucose 82 Random Glucose Calcium Troponin I High Sens COVID-19 ([facility]) COVID-19 Clin Com Microbiology Microbiology Results: Microbiology 04/10/22 06:44 Blood Culture - Preliminary Blood - Venous No growth after 24 hours. 04/10/22 06:44 Blood Culture - Preliminary Blood - Venous No growth after 24 hours. Assessment and Plan (1) Osteomyelitis: Status: Acute Plan 56-year-old man admitted with diabetic foot ulcer that has been present since January of this year admitted for osteomyelitis -Nonhealing diabetic left foot ulcer MRI showed osteomyelitis with abscess General surgery consultation for possible incision and drainage Will continue vancomycin Zosyn Id consulted will likely need 6w IV abx Gen surgery onboard for I&D. Pt has been NPO for possible procedure today. Will resume diet if not, npo after midnight History of chest pain- no change in quality or severity No acute coronary symptoms at this time Has had multiple workup including stress test and troponins in the past Hereported that he has an appointment at [facility] for cardiac catheterization in the neck is several weeks. Diabetes mellitus Sliding scale, ADA diet Hypertension Continue valsartan Mental health No thoughts of suicide ideation Continue home medications DVT prophylaxis Lovenox Attending Dr. Kingston Full code Pt requires continued inpt stay due to acute osteomyelitis requiring IV abx and I&D for abscess of lft foot Quality Stroke Does the patient have a stroke diagnosis?: No VTE Prior VTE?: No VTE Risk Level:: Medical - moderate - high VTE Device Contraindication: Treatment Not Indicated VTE Drug Contraindication: N/A - Med Ordered
[2022-04-11 11:08] LABS: Glucose, Whole Blood 88 mg/dL (60-115)
--- NOTE | 2022-04-11 15:01 | MHC.CM.PN ---
CM MET WITH PT, LIVES IN A SINGLE FAMILY HOME WITH SPOUSE AND DAUGHTER. INDEPENDENT AT BASELINE, USES A CANE OCCASIONALLY. NO SERVICES IN HOME BUT GOES TO [facility] WEEK[facility]. +HCP, AT HOME, PT WILL REQUEST BRING IN A COPY. COVID VAX X2 WITH [facility]. PCP DR. GOMEZ [facility]. PT OPEN TO [facility] REFERRAL SHOULD SERVICES BE NEEDED, REFERRAL TO [facility] PER REQUEST. WILL TRANSPORT HOME AT NH.
[2022-04-11 15:47] LABS: Glucose, Whole Blood 74 mg/dL (60-115)
[2022-04-11 15:50] VITALS: BP 161/72; PULSE 67; RESP 18; TEMP 36.6; O2SAT 98
[2022-04-11] MEDS: Enoxaparin Sodium 40 MG/0.4 ML SYRINGE SUBCUT (17:36)
[2022-04-11 18:38] LABS: Vancomycin Trough 15.2 mcg/mL (10.0-20.0)
--- NOTE | 2022-04-11 18:55 | HE.PHANOTE ---
RE BEVERLY CONTINUE CURRENT DOSE; TROUGH WAS 15.2. WILL GET A RANDOM AFTER 2 DOSES Thanks Paul
[2022-04-11 19:20] VITALS: BP 164/84; PULSE 74; RESP 18; TEMP 36.2; O2SAT 98
[2022-04-11 19:26] LABS: Glucose, Whole Blood 171 mg/dL (60-115)
[2022-04-11] MEDS: Insulin Lispro 100 UNIT/ML 3 ML VIAL SUBCUT (20:06)
[2022-04-12] VITALS (11 sets, daily range): BP systolic 121–177; BP diastolic 62–91; PULSE 65–78; RESP 16–22; TEMP 35.9–37.2; O2SAT 94–99
[2022-04-12] MEDS: oxyCODONE HCl Immed Release 5 MG TABLET PO ×2 (01:33→08:44)
[2022-04-12] MEDS: Piperacillin Sodium/Tazobactam 2.25 GM in 0.9 % Sodium Chloride 50 ML IV ×4 (02:14→23:38)
[2022-04-12 07:17] LABS: Glucose, Whole Blood 100 mg/dL (60-115)
[2022-04-12 08:13] LABS: MANUAL DIFF FLAG NO
[2022-04-12 08:21] LABS: Basophils Percent Auto 0.4 % (0-2); Eosinophils Absolute Auto 0.1 X10*3/uL (0.0-0.4); Eosinophils Percent Auto 2.1 % (0-4); Hematocrit 43.6 % (42.0-52.0); Hemoglobin 14.4 g/dl (14.0-18.0); Imm Gran Abs Auto 0.04 X10*3/uL (0.00-0.03); Imm Gran Pct Auto 0.6 % (0.0-0.4); Lymphocytes Absolute Auto 2.3 X10*3/uL (1.2-4.9); Lymphocytes Percent Auto 33.7 % (20-40); Mean Corpuscular Hemoglobin 28.5 pg (27.0-33.0); Mean Corpuscular Volume 86.2 fL (80.0-98.0); Mean Platelet Volume 10.3 fL (9.4-12.4); Monocytes Absolute Auto 0.6 X10*3/uL (0.1-1.2); Monocytes Percent Auto 8.6 % (2-11); Neutrophils Absolute Auto 3.7 x10*3/uL (2.0-8.3); Neutrophils Percent Auto 54.6 % (45-73); Platelet Count 186 X10*3/uL (160-400); Red Blood Count 5.06 X10*6/uL (4.60-5.80); Red Cell Distribution Width 13.6 % (11.0-16.0); White Blood Count 6.7 X10*3/uL (4.8-10.8)
[2022-04-12] MEDS: vancomycin HCL 750 MG in 0.9 % Sodium Chloride 250 ML 265 MG IV ×2 (08:30→19:52)
[2022-04-12] MEDS: 0.9 % Sodium Chloride Flush 3 ML SYRINGE IVFLUSH ×3 (08:31→19:30)
[2022-04-12 08:33] LABS: Anion Gap 15 (12-20); Blood Urea Nitrogen 14 mg/dL (9-16); Carbon Dioxide 26 mmol/L (22-29); Chloride 107 mmol/L (96-108); Creatinine Clr Calc Pharmacy 81.2; Estimated Glomerular Filt Rate > 60; Glucose Random 103 mg/dL (60-115); Potassium 4.1 mmol/L (3.3-5.1); Sodium 144 mmol/L (135-145)
[2022-04-12] MEDS: Metoprolol Tartrate 25 MG TABLET PO ×2 (08:43→19:52)
[2022-04-12] MEDS: buPROPion HCl XL 150 MG TAB.ER.24H PO (08:43)
[2022-04-12] MEDS: buPROPion HCl XL 300 MG TAB.ER.24H PO (08:43)
[2022-04-12] MEDS: Valsartan 80 MG TABLET PO (08:44)
[2022-04-12] MEDS: ARIPiprazole 2 MG TABLET PO (08:45)
--- NOTE | 2022-04-12 10:42 | PC.NURSE ---
Per floor rn Ritesh, patient at intermit. chest pain -no complaints today, scheduled in 2 weeks for cardiac cath. Anesthesia made aware. Dr Fleming went to bedside to see patient, per patient has permanent chest pain, currently 08/23. Dr Fleming called patient's interior design professional to discuss proceeding with foot I+D with anesthesia- okay'ed to proceed.
[2022-04-12 11:10] LABS: Glucose, Whole Blood 86 mg/dL (60-115)
--- NOTE | 2022-04-12 11:56 | PM.CNCAR ---
History of Present Illness History of Present Illness Date of Service: 04/12/22 Requesting physician: Tiffanie Gil Chief complaint: Foot Wound, preop assessment Narrative: 56-year-old gentleman who is here for left foot wound with concern for osteomyelitis and going to operating room today for surgical management. He has background history of depression hypertension, hyperlipidemia and diabetes. He was seen in February 2022 when he was admitted to inpatient psych facility to suicidal ideation. He was complaining of chest discomfort. He has chronic left bundle-branch block. Our plan was to do an outpatient stress test on him. The stress test was performed as outpatient which showed low ejection fraction. He did not have any echocardiography afterwards. He was due to get a cardiac catheterization. He is complaining of left-sided cramp like sensation in his chest which has been present for a week. He goes to sleep with the pain and wakes up with it. Completely atypical in character. No other symptoms signs pointing PMFSH Past Medical History Medical History (Updated 04/12/22 @ 12:04 by Clifton Castro MD) Depression Diabetic foot ulcer HTN (hypertension) LBBB (left bundle branch block) Suicidal ideation Type 2 diabetes mellitus with foot ulcer Family History Family History Father Neck malignant neoplasm Surgical History Surgical History H/O: vasectomy Social History Social History Household Members: Spouse and Children Housing: House Do you presently have visiting nurse or other home services: No Alcohol intake: current Alcohol intake frequency: former alcohol drinker Patient Tobacco Use Status: Never used Tobacco Second Hand Smoke Exposure: No Substance Use Type: Marijuana Advance Directives Date on File: 04/11/22 service: No Current occupational status: employed Sexual orientation: Straight/Heterosexual Meds Allergies Allergy/AdvReac Type Severity Reaction Status Date / Time codeine [CODEINE] Allergy Unknown delayed Verified 02/07/22 09:46 responses 02/24/17 Active Medications: Current Medications Acetaminophen (Acetaminophen 325 Mg Tablet) 650 mg PO Q6H PRN PRN Reason: Pain, Mild (Pain Scale 1-3) Aripiprazole (Aripiprazole 2 Mg Tablet) 2 mg PO DAILY [facility] Last Admin: 04/12/22 08:45 Dose: 2 mg Bupropion HCl (Bupropion Hcl Xl 150 Mg Tab.Er.24h) 150 mg PO DAILY [facility] Last Admin: 04/12/22 08:43 Dose: 150 mg Bupropion HCl (Bupropion Hcl Xl 300 Mg Tab.Er.24h) 300 mg PO DAILY [facility] Last Admin: 04/12/22 08:43 Dose: 300 mg Dextrose (Dextrose 50 % 25 Gm/50 Ml Syringe) 25 gm IVPUSH Q15M PRN; Protocol PRN Reason: per Hypoglycemia Standing Ord. Enoxaparin Sodium (Enoxaparin Sodium 40 Mg/0.4 Ml Syringe) 40 mg SUBCUT Q24H [facility] Last Admin: 04/11/22 17:36 Dose: 40 mg Glucose (Glucose Gel 15 Gm Gel..Gram.) 15 gm PO Q15M PRN; Protocol PRN Reason: per Hypoglycemia Standing Ord. Hydromorphone HCl (Hydromorphone Hcl 0.5 Mg/0.5 Ml Syringe) 0.5 mg IVPUSH Q4H PRN; Protocol PRN Reason: Pain, Severe (Pain Scale 7-10) Last Admin: 04/11/22 08:57 Dose: 0.5 mg Piperacillin Sod/Tazobactam (Sod 2.25 gm/ Sodium Chloride) 50 mls @ 100 mls/hr IV Q6H [facility] Last Infusion: 04/12/22 10:31 Dose: Infused Vancomycin HCl 750 mg/ Sodium (Chloride) 265 mls @ 265 mls/hr IV Q12H [facility] Last Infusion: 04/12/22 10:00 Dose: Infused Insulin Human Lispro (Insulin Lispro 100 Unit/Ml 3 Ml Vial) 0 unit SUBCUT QIDACHS [facility]; Protocol Last Admin: 04/12/22 11:16 Dose: Not Given Metoprolol Tartrate (Metoprolol Tartrate 25 Mg Tablet) 25 mg PO BID [facility]; Protocol Last Admin: 04/12/22 08:43 Dose: 25 mg Ondansetron HCl (Ondansetron Hcl 4 Mg/2 Ml Vial) 4 mg IVPUSH Q8H PRN PRN Reason: Nausea and Vomiting Oxycodone HCl (Oxycodone Hcl Immed Release 5 Mg Tablet) 5 mg PO Q4H PRN PRN Reason: Pain, Moderate (Pain Scale 4-6 Last Admin: 04/12/22 08:44 Dose: 5 mg Pharmacy Consult (Consult Rx Vancomycin Dosing) 1 each MISCELLANE DAILY PRN PRN Reason: Consult order Pharmacy Consult (Consult Rx Perform Med Rec) 1 each MISCELLANE ONCE PRN PRN Reason: Consult order Pharmacy Consult (Consult Rx Vancomycin Dosing) 1 each MISCELLANE DAILY PRN PRN Reason: Consult order Sodium Chloride (0.9 % Sodium Chloride Flush 3 Ml Syringe) 3 ml IVFLUSH QSHIFT [facility] Last Admin: 04/12/22 08:31 Dose: 3 ml Valsartan (Valsartan 80 Mg Tablet) 80 mg PO DAILY [facility]; Protocol Last Admin: 04/12/22 08:44 Dose: 80 mg Home Medications Medication Instructions Recorded Confirmed Last Taken Type metformin 500 mg tablet,extended 2 tab PO BID 12/08/21 04/10/22 04/09/22 09:00 History release 24 hr dulaglutide 1.5 mg/0.5 mL 1.5 mg subcut FR@0900 04/10/22 04/10/22 Unknown History subcutaneous pen injector (Trulicity) Physical Exam Vital Signs: Vital Signs: Last Vital Signs Temp 97.3 F 04/12/22 11:01 Pulse 65 04/12/22 11:01 Resp 18 04/12/22 11:01 BP 177/90 H 04/12/22 11:01 Pulse Ox 97 04/12/22 11:01 O2 Del Method 04/12/22 11:01 BMI result Body Mass Index 25.4 GENERAL APPEARANCE: in no acute distress, pleasant. NECK: no carotid bruit, no jugular venous distention. SKIN: Left foot abscess on lateral aspect. HEART: no murmurs, regular rate and rhythm. LUNGS: clear to auscultation bilaterally. ABDOMEN: soft, nontender. EXTREMITIES: no edema. PERIPHERAL PULSES: equal. NEUROLOGIC: No gross deficits, AAO X 3 Objective Labs and Meds Result diagrams: 04/12/22 08:02 04/12/22 07:57 Lab results: Laboratory Results - last 24 hr 04/11/22 04/11/22 04/11/22 15:40 18:12 19:19 WBC RBC Hgb Hct MCV MCH MCHC RDW Plt Count MPV Immature Gran % (Auto) Neut % (Auto) Lymph % (Auto) [place] % (Auto) Eos % (Auto) Baso % (Auto) Lymph # (Auto) [place] # (Auto) Eos # (Auto) Baso # (Auto) Abs Immat Gran (auto) Absolute Neuts (auto) Absolute Nucleated RBC Nucleated RBC % (auto) Sodium Potassium Chloride Carbon Dioxide Anion Gap BUN Creatinine Estim Creat Clear Calc Estimated GFR POC Glucose 74 171 H Random Glucose Calcium Vancomycin Trough 15.2 04/12/22 04/12/22 04/12/22 07:06 07:57 08:02 WBC 6.7 RBC 5.06 Hgb 14.4 Hct 43.6 MCV 86.2 MCH 28.5 MCHC 33.0 RDW 13.6 Plt Count 186 MPV 10.3 Immature Gran % (Auto) 0.6 H Neut % (Auto) 54.6 Lymph % (Auto) 33.7 [place] % (Auto) 8.6 Eos % (Auto) 2.1 Baso % (Auto) 0.4 Lymph # (Auto) 2.3 [place] # (Auto) 0.6 Eos # (Auto) 0.1 Baso # (Auto) 0.0 Abs Immat Gran (auto) 0.04 H Absolute Neuts (auto) 3.7 Absolute Nucleated RBC 0.000 Nucleated RBC % (auto) 0.0 Sodium 144 Potassium 4.1 Chloride 107 Carbon Dioxide 26 Anion Gap 15 BUN 14 Creatinine 0.97 Estim Creat Clear Calc 81.2 Estimated GFR > 60 POC Glucose 100 Random Glucose 103 Calcium 9.0 Vancomycin Trough 04/12/22 11:03 WBC RBC Hgb Hct MCV MCH MCHC RDW Plt Count MPV Immature Gran % (Auto) Neut % (Auto) Lymph % (Auto) [place] % (Auto) Eos % (Auto) Baso % (Auto) Lymph # (Auto) [place] # (Auto) Eos # (Auto) Baso # (Auto) Abs Immat Gran (auto) Absolute Neuts (auto) Absolute Nucleated RBC Nucleated RBC % (auto) Sodium Potassium Chloride Carbon Dioxide Anion Gap BUN Creatinine Estim Creat Clear Calc Estimated GFR POC Glucose 86 Random Glucose Calcium Vancomycin Trough Assessment and Plan (1) Osteomyelitis: Qualifiers: Laterality: left Osteomyelitis location: foot Osteomyelitis type: unspecified type Qualified Code(s): M86.9 - Osteomyelitis, unspecified Status: Acute (2) LBBB (left bundle branch block): Status: Acute (3) Preop cardiovascular exam: Status: Acute Plan Pleasant 56 year gentleman with chronic left bundle-branch block and atypical chest discomfort. He has been experiencing chest pain persistently for days. I think the chest pain is likely noncardiac. He had a low EF picked up on the nuclear stress test. Sometimes this is related to gating and I am unsure whether there is truly any cardiomyopathy present or not. I think we should do an echocardiogram to assess LV. He needs surgery for abscess on the left foot with concern for osteomyelitis. Clinically he is not in heart failure currently. I think he is intermediate risk for perioperative risk. He can proceed with surgery. Echocardiography can be performed afterwards. Blood pressure is elevated and his valsartan can be titrated to 160 mg. Thank you for allowing me to participate in the care of your patient. Please feel free to contact me if you have any questions. Procedures Date of Service Date of Service: 04/12/22
--- NOTE | 2022-04-12 13:35 | HO.PM.IMPN ---
Subjective Subjective Date of Service: 04/12/22 Interval History: seen and examined this morning Follow-up for osteomyelitis Did not sleep well overnight due to foot pain Plan for I&D in or today Review of Systems Review of Systems: Yes all other systems are reviewed and are negative Constitutional Constitutional: Denies chills and Denies fever(s) ENT Ears, Nose, Mouth, and Throat: Denies dizziness Cardiovascular Cardiovascular: Reports chest pain, Denies palpitations and Denies dyspnea Respiratory Respiratory: Denies cough and Denies dyspnea Gastrointestinal Gastrointestinal: Denies abdominal pain Neurologic Neurologic: Denies dizziness Endocrine Endocrine: Denies palpitations Physical Exam Vital Signs: Vital Signs: Last Vital Signs Temp 96.7 F L 04/12/22 13:11 Pulse 73 04/12/22 13:11 Resp 16 04/12/22 13:11 BP 170/91 H 04/12/22 13:11 Pulse Ox 98 04/12/22 13:11 O2 Del Method 04/12/22 13:11 BMI result Body Mass Index 25.4 Const: General: cooperative, comfortable, alert and awake Nutritional Appearance: average body habitus Orientation/consciousness: patient oriented x3 Resp: Effort & Inspection: normal respiratory effort and able to speak in complete sentences Auscultation: clear to auscultation bilaterally Cardio: Rate: regular rate Heart sounds: S1 normal heart sound present, S2 normal heart sound present and Murmur heart sound present GI: Inspection: No distended Palpation (GI): Soft to palpation and nontender Neuro: General: patient oriented x3 and CN's II-XI intact bilaterally Extrem: Other: left foot with erythema and fluctuance base of 5th metatarsal Objective Data Active Medications Acetaminophen (Acetaminophen 325 Mg Tablet) 650 mg PO Q6H PRN PRN Reason: Pain, Mild (Pain Scale 1-3) Aripiprazole (Aripiprazole 2 Mg Tablet) 2 mg PO DAILY [facility] Last Admin: 04/12/22 08:45 Dose: 2 mg Documented By: BESSIE Bupropion HCl (Bupropion Hcl Xl 150 Mg Tab.Er.24h) 150 mg PO DAILY [facility] Last Admin: 04/12/22 08:43 Dose: 150 mg Documented By: BESSIE Bupropion HCl (Bupropion Hcl Xl 300 Mg Tab.Er.24h) 300 mg PO DAILY [facility] Last Admin: 04/12/22 08:43 Dose: 300 mg Documented By: BESSIE Dextrose (Dextrose 50 % 25 Gm/50 Ml Syringe) 25 gm IVPUSH Q15M PRN; Protocol PRN Reason: per Hypoglycemia Standing Ord. Enoxaparin Sodium (Enoxaparin Sodium 40 Mg/0.4 Ml Syringe) 40 mg SUBCUT Q24H [facility] Last Admin: 04/11/22 17:36 Dose: 40 mg Documented By: JELLY-JENNY Glucose (Glucose Gel 15 Gm Gel..Gram.) 15 gm PO Q15M PRN; Protocol PRN Reason: per Hypoglycemia Standing Ord. Hydromorphone HCl (Hydromorphone Hcl 0.5 Mg/0.5 Ml Syringe) 0.5 mg IVPUSH Q4H PRN; Protocol PRN Reason: Pain, Severe (Pain Scale 7-10) Last Admin: 04/11/22 08:57 Dose: 0.5 mg Documented By: ELI Piperacillin Sod/Tazobactam (Sod 2.25 gm/ Sodium Chloride) 50 mls @ 100 mls/hr IV Q6H [facility] Last Infusion: 04/12/22 10:31 Dose: 0 mls/hr Documented By: BESSIE Vancomycin HCl 750 mg/ Sodium (Chloride) 265 mls @ 265 mls/hr IV Q12H [facility] Last Infusion: 04/12/22 10:00 Dose: 0 mls/hr Documented By: BESSIE Cefazolin Sodium/Dextrose (Ancef) 2 gm in 50 mls @ 100 mls/hr IV PREOP ONE Stop: 04/12/22 13:39 Lactated Ringer's (Lr) 1,000 mls @ 100 mls/hr IVCONT .Q10H [facility] Insulin Human Lispro (Insulin Lispro 100 Unit/Ml 3 Ml Vial) 0 unit SUBCUT QIDACHS [facility]; Protocol Last Admin: 04/12/22 11:16 Dose: Not Given Documented By: BESSIE Non-Admin Reason: No Insulin Coverage Metoprolol Tartrate (Metoprolol Tartrate 25 Mg Tablet) 25 mg PO BID [facility]; Protocol Last Admin: 04/12/22 08:43 Dose: 25 mg Documented By: BESSIE Ondansetron HCl (Ondansetron Hcl 4 Mg/2 Ml Vial) 4 mg IVPUSH Q8H PRN PRN Reason: Nausea and Vomiting Oxycodone HCl (Oxycodone Hcl Immed Release 5 Mg Tablet) 5 mg PO Q4H PRN PRN Reason: Pain, Moderate (Pain Scale 4-6 Last Admin: 04/12/22 08:44 Dose: 5 mg Documented By: BESSIE Pharmacy Consult (Consult Rx Vancomycin Dosing) 1 each MISCELLANE DAILY PRN PRN Reason: Consult order Pharmacy Consult (Consult Rx Perform Med Rec) 1 each MISCELLANE ONCE PRN PRN Reason: Consult order Pharmacy Consult (Consult Rx Vancomycin Dosing) 1 each MISCELLANE DAILY PRN PRN Reason: Consult order Sodium Chloride (0.9 % Sodium Chloride Flush 3 Ml Syringe) 3 ml IVFLUSH QSHIFT [facility] Last Admin: 04/12/22 08:31 Dose: 3 ml Documented By: BESSIE Valsartan (Valsartan 80 Mg Tablet) 80 mg PO DAILY [facility]; Protocol Last Admin: 04/12/22 08:44 Dose: 80 mg Documented By: BESSIE Labs CBC & Chem 7: 04/12/22 08:02 04/12/22 07:57 Labs: Laboratory Results - last 24 hr 04/11/22 04/11/22 04/11/22 15:40 18:12 19:19 MCV MCH MCHC RDW Plt Count MPV Immature Gran % (Auto) Neut % (Auto) Lymph % (Auto) [place] % (Auto) Eos % (Auto) Baso % (Auto) Lymph # (Auto) [place] # (Auto) Eos # (Auto) Baso # (Auto) Abs Immat Gran (auto) Absolute Neuts (auto) Absolute Nucleated RBC Nucleated RBC % (auto) Anion Gap Estim Creat Clear Calc Estimated GFR POC Glucose 74 171 H Random Glucose Calcium Vancomycin Trough 15.2 04/12/22 04/12/22 04/12/22 07:06 07:57 08:02 MCV 86.2 MCH 28.5 MCHC 33.0 RDW 13.6 Plt Count 186 MPV 10.3 Immature Gran % (Auto) 0.6 H Neut % (Auto) 54.6 Lymph % (Auto) 33.7 [place] % (Auto) 8.6 Eos % (Auto) 2.1 Baso % (Auto) 0.4 Lymph # (Auto) 2.3 [place] # (Auto) 0.6 Eos # (Auto) 0.1 Baso # (Auto) 0.0 Abs Immat Gran (auto) 0.04 H Absolute Neuts (auto) 3.7 Absolute Nucleated RBC 0.000 Nucleated RBC % (auto) 0.0 Anion Gap 15 Estim Creat Clear Calc 81.2 Estimated GFR > 60 POC Glucose 100 Random Glucose 103 Calcium 9.0 Vancomycin Trough 04/12/22 11:03 MCV MCH MCHC RDW Plt Count MPV Immature Gran % (Auto) Neut % (Auto) Lymph % (Auto) [place] % (Auto) Eos % (Auto) Baso % (Auto) Lymph # (Auto) [place] # (Auto) Eos # (Auto) Baso # (Auto) Abs Immat Gran (auto) Absolute Neuts (auto) Absolute Nucleated RBC Nucleated RBC % (auto) Anion Gap Estim Creat Clear Calc Estimated GFR POC Glucose 86 Random Glucose Calcium Vancomycin Trough Microbiology Microbiology Results: Microbiology 04/10/22 06:44 Blood Culture - Preliminary Blood - Venous No growth after 48 hours. 04/10/22 06:44 Blood Culture - Preliminary Blood - Venous No growth after 48 hours. Assessment and Plan (1) LBBB (left bundle branch block): Status: Acute (2) Osteomyelitis: Status: Acute Plan 56-year-old man admitted with diabetic foot ulcer that has been present since January of this year admitted for osteomyelitis left foot ulcer osteomyelitis with abscess related to diabetes continue vancomycin/Zosyn ID consult pending - will likely need 6w IV abx Blood cultures negative x 48 hours plan for I&D today - follow wound cultures Chest pain chronic. no change from baseline Plan for outpatient cardiac cath next week seen by cardiology - intermediate risk for planned procedure. recommend to repeat echo Diabetes mellitus januvia, trulicity, metformin on hold Sliding scale, ADA diet Hypertension bp elevated will increase dose of valsartan Mood No thoughts of suicide ideation Continue home medications DVT prophylaxis Lovenox Attending Dr. agudelo Full code Pt requires continued inpt stay due to acute osteomyelitis requiring IV abx and I&D for abscess of lft foot Quality Stroke Does the patient have a stroke diagnosis?: No VTE Prior VTE?: No VTE Risk Level:: Medical - moderate - high VTE Device Contraindication: Treatment Not Indicated VTE Drug Contraindication: N/A - Med Ordered
--- NOTE | 2022-04-12 13:35 | PM.PNGS ---
Subjective Subjective Date of Service: 04/12/22 Interval history: Pain left foot continues Physical Exam Vital Signs: Vital Signs: Last Vital Signs Temp 96.7 F L 04/12/22 13:11 Pulse 73 04/12/22 13:11 Resp 16 04/12/22 13:11 BP 170/91 H 04/12/22 13:11 Pulse Ox 98 04/12/22 13:11 O2 Del Method 04/12/22 13:11 BMI result Body Mass Index 25.4 Const: General: no acute distress and well developed Nutritional Appearance: well nourished Orientation/consciousness: patient oriented x3 Limitations: no limitations Resp: Effort & Inspection: normal respiratory effort Neuro: General: patient oriented x3 Extrem: Other: left foot, lateral surface with tender site at the proximal 5th metatarsal. Red and swollen, suggestive of abscess. Ankle/foot/toe images: 1. Objective Data Active Medications Acetaminophen (Acetaminophen 325 Mg Tablet) 650 mg PO Q6H PRN PRN Reason: Pain, Mild (Pain Scale 1-3) Aripiprazole (Aripiprazole 2 Mg Tablet) 2 mg PO DAILY [facility] Last Admin: 04/12/22 08:45 Dose: 2 mg Documented By: BESSIE Bupropion HCl (Bupropion Hcl Xl 150 Mg Tab.Er.24h) 150 mg PO DAILY [facility] Last Admin: 04/12/22 08:43 Dose: 150 mg Documented By: BESSIE Bupropion HCl (Bupropion Hcl Xl 300 Mg Tab.Er.24h) 300 mg PO DAILY [facility] Last Admin: 04/12/22 08:43 Dose: 300 mg Documented By: BESSIE Dextrose (Dextrose 50 % 25 Gm/50 Ml Syringe) 25 gm IVPUSH Q15M PRN; Protocol PRN Reason: per Hypoglycemia Standing Ord. Enoxaparin Sodium (Enoxaparin Sodium 40 Mg/0.4 Ml Syringe) 40 mg SUBCUT Q24H [facility] Last Admin: 04/11/22 17:36 Dose: 40 mg Documented By: ANGELA Glucose (Glucose Gel 15 Gm Gel..Gram.) 15 gm PO Q15M PRN; Protocol PRN Reason: per Hypoglycemia Standing Ord. Hydromorphone HCl (Hydromorphone Hcl 0.5 Mg/0.5 Ml Syringe) 0.5 mg IVPUSH Q4H PRN; Protocol PRN Reason: Pain, Severe (Pain Scale 7-10) Last Admin: 04/11/22 08:57 Dose: 0.5 mg Documented By: ELI Piperacillin Sod/Tazobactam (Sod 2.25 gm/ Sodium Chloride) 50 mls @ 100 mls/hr IV Q6H [facility] Last Infusion: 04/12/22 10:31 Dose: 0 mls/hr Documented By: BESSIE Vancomycin HCl 750 mg/ Sodium (Chloride) 265 mls @ 265 mls/hr IV Q12H [facility] Last Infusion: 04/12/22 10:00 Dose: 0 mls/hr Documented By: BESSIE Cefazolin Sodium/Dextrose (Ancef) 2 gm in 50 mls @ 100 mls/hr IV PREOP ONE Stop: 04/12/22 13:39 Lactated Ringer's (Lr) 1,000 mls @ 100 mls/hr IVCONT .Q10H [facility] Insulin Human Lispro (Insulin Lispro 100 Unit/Ml 3 Ml Vial) 0 unit SUBCUT QIDACHS [facility]; Protocol Last Admin: 04/12/22 11:16 Dose: Not Given Documented By: BESSIE Non-Admin Reason: No Insulin Coverage Metoprolol Tartrate (Metoprolol Tartrate 25 Mg Tablet) 25 mg PO BID [facility]; Protocol Last Admin: 04/12/22 08:43 Dose: 25 mg Documented By: BESSIE Ondansetron HCl (Ondansetron Hcl 4 Mg/2 Ml Vial) 4 mg IVPUSH Q8H PRN PRN Reason: Nausea and Vomiting Oxycodone HCl (Oxycodone Hcl Immed Release 5 Mg Tablet) 5 mg PO Q4H PRN PRN Reason: Pain, Moderate (Pain Scale 4-6 Last Admin: 04/12/22 08:44 Dose: 5 mg Documented By: BESSIE Pharmacy Consult (Consult Rx Vancomycin Dosing) 1 each MISCELLANE DAILY PRN PRN Reason: Consult order Pharmacy Consult (Consult Rx Perform Med Rec) 1 each MISCELLANE ONCE PRN PRN Reason: Consult order Pharmacy Consult (Consult Rx Vancomycin Dosing) 1 each MISCELLANE DAILY PRN PRN Reason: Consult order Sodium Chloride (0.9 % Sodium Chloride Flush 3 Ml Syringe) 3 ml IVFLUSH QSHIFT [facility] Last Admin: 04/12/22 08:31 Dose: 3 ml Documented By: BESSIE Valsartan (Valsartan 80 Mg Tablet) 80 mg PO DAILY [facility]; Protocol Last Admin: 04/12/22 08:44 Dose: 80 mg Documented By: BESSIE Labs CBC & Chem 7: 04/12/22 08:02 04/12/22 07:57 Labs: Laboratory Results - last 24 hr 04/11/22 04/11/22 04/11/22 15:40 18:12 19:19 MCV MCH MCHC RDW Plt Count MPV Immature Gran % (Auto) Neut % (Auto) Lymph % (Auto) [place] % (Auto) Eos % (Auto) Baso % (Auto) Lymph # (Auto) [place] # (Auto) Eos # (Auto) Baso # (Auto) Abs Immat Gran (auto) Absolute Neuts (auto) Absolute Nucleated RBC Nucleated RBC % (auto) Anion Gap Estim Creat Clear Calc Estimated GFR POC Glucose 74 171 H Random Glucose Calcium Vancomycin Trough 15.2 04/12/22 04/12/22 04/12/22 07:06 07:57 08:02 MCV 86.2 MCH 28.5 MCHC 33.0 RDW 13.6 Plt Count 186 MPV 10.3 Immature Gran % (Auto) 0.6 H Neut % (Auto) 54.6 Lymph % (Auto) 33.7 [place] % (Auto) 8.6 Eos % (Auto) 2.1 Baso % (Auto) 0.4 Lymph # (Auto) 2.3 [place] # (Auto) 0.6 Eos # (Auto) 0.1 Baso # (Auto) 0.0 Abs Immat Gran (auto) 0.04 H Absolute Neuts (auto) 3.7 Absolute Nucleated RBC 0.000 Nucleated RBC % (auto) 0.0 Anion Gap 15 Estim Creat Clear Calc 81.2 Estimated GFR > 60 POC Glucose 100 Random Glucose 103 Calcium 9.0 Vancomycin Trough 04/12/22 11:03 MCV MCH MCHC RDW Plt Count MPV Immature Gran % (Auto) Neut % (Auto) Lymph % (Auto) [place] % (Auto) Eos % (Auto) Baso % (Auto) Lymph # (Auto) [place] # (Auto) Eos # (Auto) Baso # (Auto) Abs Immat Gran (auto) Absolute Neuts (auto) Absolute Nucleated RBC Nucleated RBC % (auto) Anion Gap Estim Creat Clear Calc Estimated GFR POC Glucose 86 Random Glucose Calcium Vancomycin Trough Microbiology Microbiology Results: Microbiology 04/10/22 06:44 Blood Culture - Preliminary Blood - Venous No growth after 48 hours. 04/10/22 06:44 Blood Culture - Preliminary Blood - Venous No growth after 48 hours. Procedures Date of Service Date of Service: 04/12/22 Progress Note: A&P Assessment and plan (1) Osteomyelitis: Status: Acute Plan Persistent pain and swelling in the left foot, suggestive of an abscess with osteo by MRI. I discussed the options including incision and drainage vs. continued IV antibiotics. He wishes to proceed with incision,drainage and debridement and after a discussion of the procedure, alternatives and risks, he consents to the surgery. Time Spent With Patient Time: Total time spent is greater than 50% in coordination of care (as documented) at patient's floor/unit and/or counseling patient: Quality Stroke Does the patient have a stroke diagnosis?: No VTE Prior VTE?: No VTE Risk Level:: Medical - moderate - high VTE Device Contraindication: Treatment Not Indicated VTE Drug Contraindication: N/A - Med Ordered
--- NOTE | 2022-04-12 13:37 | P.CONAN_ITS ---
HPI - Anesthesia Eval Consult details Narrative: 56 yo male patient for I&D of left foot abscess PMFSH Active Problems Active Problems: All Active Problems (Updated 04/12/22 @ 12:04 by Clifton Castro MD) Preop cardiovascular exam (Acute) LBBB (left bundle branch block) (Acute) Osteomyelitis (Acute) Dizziness (Acute) Chest pain x 1 week. Seen by cardiology. Atypical chest pain ?cardiac. Schedule d for cardiac cath. Ok to proceed with surgery Past Medical History Medical History (Updated 04/12/22 @ 12:04 by Clifton Castro MD) Depression Diabetic foot ulcer HTN (hypertension) LBBB (left bundle branch block) Suicidal ideation Type 2 diabetes mellitus with foot ulcer Family History Family History Father Neck malignant neoplasm Family history of problems with anesthesia: No Surgical History Surgical History H/O: vasectomy History of Problems with Anesthesia: No Social History Social History Household Members: Spouse and Children Housing: House Do you presently have visiting nurse or other home services: No Alcohol intake: current Alcohol intake frequency: holidays/special occasions only Patient Tobacco Use Status: Never used Tobacco Second Hand Smoke Exposure: No Substance Use Type: Marijuana Advance Directives Date on File: 04/11/22 service: No Current occupational status: employed Sexual orientation: Straight/Heterosexual Meds Allergies Allergy/AdvReac Type Severity Reaction Status Date / Time codeine [CODEINE] Allergy Unknown delayed Verified 02/07/22 09:46 responses 02/24/17 Active Medications: Current Medications Acetaminophen (Acetaminophen 325 Mg Tablet) 650 mg PO Q6H PRN PRN Reason: Pain, Mild (Pain Scale 1-3) Aripiprazole (Aripiprazole 2 Mg Tablet) 2 mg PO DAILY [facility] Last Admin: 04/12/22 08:45 Dose: 2 mg Bupropion HCl (Bupropion Hcl Xl 150 Mg Tab.Er.24h) 150 mg PO DAILY [facility] Last Admin: 04/12/22 08:43 Dose: 150 mg Bupropion HCl (Bupropion Hcl Xl 300 Mg Tab.Er.24h) 300 mg PO DAILY [facility] Last Admin: 04/12/22 08:43 Dose: 300 mg Dextrose (Dextrose 50 % 25 Gm/50 Ml Syringe) 25 gm IVPUSH Q15M PRN; Protocol PRN Reason: per Hypoglycemia Standing Ord. Enoxaparin Sodium (Enoxaparin Sodium 40 Mg/0.4 Ml Syringe) 40 mg SUBCUT Q24H [facility] Last Admin: 04/11/22 17:36 Dose: 40 mg Glucose (Glucose Gel 15 Gm Gel..Gram.) 15 gm PO Q15M PRN; Protocol PRN Reason: per Hypoglycemia Standing Ord. Hydromorphone HCl (Hydromorphone Hcl 0.5 Mg/0.5 Ml Syringe) 0.5 mg IVPUSH Q4H PRN; Protocol PRN Reason: Pain, Severe (Pain Scale 7-10) Last Admin: 04/11/22 08:57 Dose: 0.5 mg Piperacillin Sod/Tazobactam (Sod 2.25 gm/ Sodium Chloride) 50 mls @ 100 mls/hr IV Q6H [facility] Last Infusion: 04/12/22 10:31 Dose: Infused Vancomycin HCl 750 mg/ Sodium (Chloride) 265 mls @ 265 mls/hr IV Q12H [facility] Last Infusion: 04/12/22 10:00 Dose: Infused Cefazolin Sodium/Dextrose (Ancef) 2 gm in 50 mls @ 100 mls/hr IV PREOP ONE Stop: 04/12/22 13:39 Lactated Ringer's (Lr) 1,000 mls @ 100 mls/hr IVCONT .Q10H [facility] Insulin Human Lispro (Insulin Lispro 100 Unit/Ml 3 Ml Vial) 0 unit SUBCUT QIDACHS [facility]; Protocol Last Admin: 04/12/22 11:16 Dose: Not Given Metoprolol Tartrate (Metoprolol Tartrate 25 Mg Tablet) 25 mg PO BID [facility]; Protocol Last Admin: 04/12/22 08:43 Dose: 25 mg Ondansetron HCl (Ondansetron Hcl 4 Mg/2 Ml Vial) 4 mg IVPUSH Q8H PRN PRN Reason: Nausea and Vomiting Oxycodone HCl (Oxycodone Hcl Immed Release 5 Mg Tablet) 5 mg PO Q4H PRN PRN Reason: Pain, Moderate (Pain Scale 4-6 Last Admin: 04/12/22 08:44 Dose: 5 mg Pharmacy Consult (Consult Rx Vancomycin Dosing) 1 each MISCELLANE DAILY PRN PRN Reason: Consult order Pharmacy Consult (Consult Rx Perform Med Rec) 1 each MISCELLANE ONCE PRN PRN Reason: Consult order Pharmacy Consult (Consult Rx Vancomycin Dosing) 1 each MISCELLANE DAILY PRN PRN Reason: Consult order Sodium Chloride (0.9 % Sodium Chloride Flush 3 Ml Syringe) 3 ml IVFLUSH QSHIFT [facility] Last Admin: 04/12/22 08:31 Dose: 3 ml Valsartan (Valsartan 160 Mg Tablet) 160 mg PO DAILY [facility]; Protocol Home Medications Medication Instructions Recorded Confirmed Last Taken Type metformin 500 mg tablet,extended 2 tab PO BID 12/08/21 04/10/22 04/09/22 09:00 History release 24 hr dulaglutide 1.5 mg/0.5 mL 1.5 mg subcut FR@0900 04/10/22 04/10/22 Unknown [facility] Exam Exam Date and Time: April 12, 2022 1337 Height,Weight and Vital Signs: Height 5 ft 8 in Weight 75.75 kg Last Vital Signs Temp 96.7 F L 04/12/22 13:11 Pulse 73 04/12/22 13:11 Resp 16 04/12/22 13:11 BP 170/91 H 04/12/22 13:11 Pulse Ox 98 04/12/22 13:11 O2 Del Method 04/12/22 13:11 Pertinent Lab Results Pertinent Lab Results: Laboratory Tests 04/10/22 04/10/22 04/10/22 01:42 01:42 06:44 WBC 9.6 RBC 5.16 Hgb 14.7 Hct 44.5 MCV 86.2 MCH 28.5 MCHC 33.0 RDW 13.9 Plt Count 201 MPV 10.3 Immature Gran % (Auto) 0.7 H Neut % (Auto) 55.6 Lymph % (Auto) 30.0 [place] % (Auto) 11.1 H Eos % (Auto) 2.0 Baso % (Auto) 0.6 Lymph # (Auto) 2.9 [place] # (Auto) 1.1 Eos # (Auto) 0.2 Baso # (Auto) 0.1 Abs Immat Gran (auto) 0.07 H Absolute Neuts (auto) 5.3 Absolute Nucleated RBC 0.000 Nucleated RBC % (auto) 0.0 Sodium 145 Potassium 4.7 Chloride 114 H Carbon Dioxide 17 L Anion Gap 19 BUN 17 H Creatinine 0.94 Estim Creat Clear Calc 83.8 Estimated GFR > 60 POC Glucose Random Glucose 119 H Lactic Acid 1.3 Calcium 9.4 D Troponin I High Sens Vancomycin Trough COVID-19 ([facility]) COVID-19 Clin Com 04/10/22 04/10/22 04/10/22 15:25 15:25 17:49 WBC RBC Hgb Hct MCV MCH MCHC RDW Plt Count MPV Immature Gran % (Auto) Neut % (Auto) Lymph % (Auto) [place] % (Auto) Eos % (Auto) Baso % (Auto) Lymph # (Auto) [place] # (Auto) Eos # (Auto) Baso # (Auto) Abs Immat Gran (auto) Absolute Neuts (auto) Absolute Nucleated RBC Nucleated RBC % (auto) Sodium Potassium Chloride Carbon Dioxide Anion Gap BUN Creatinine Estim Creat Clear Calc Estimated GFR POC Glucose 98 Random Glucose Lactic Acid Calcium Troponin I High Sens 6.4 D Vancomycin Trough COVID-19 ([facility]) Negative COVID-19 Clin Com See Note 04/10/22 04/11/22 04/11/22 22:14 04:39 04:39 WBC 7.1 RBC 4.88 Hgb 13.9 L Hct 42.3 MCV 86.7 MCH 28.5 MCHC 32.9 RDW 13.9 Plt Count 187 MPV 10.0 Immature Gran % (Auto) Neut % (Auto) Lymph % (Auto) [place] % (Auto) Eos % (Auto) Baso % (Auto) Lymph # (Auto) [place] # (Auto) Eos # (Auto) Baso # (Auto) Abs Immat Gran (auto) Absolute Neuts (auto) Absolute Nucleated RBC 0.000 Nucleated RBC % (auto) 0.0 Sodium 148 H Potassium 3.8 Chloride 111 H Carbon Dioxide 26 Anion Gap 15 BUN 15 Creatinine 1.02 Estim Creat Clear Calc 77.3 Estimated GFR > 60 POC Glucose 110 Random Glucose 96 Lactic Acid Calcium 8.9 Troponin I High Sens Vancomycin Trough COVID-19 ([facility]) COVID-19 Clin Com 04/11/22 04/11/22 04/11/22 07:32 11:04 15:40 WBC RBC Hgb Hct MCV MCH MCHC RDW Plt Count MPV Immature Gran % (Auto) Neut % (Auto) Lymph % (Auto) [place] % (Auto) Eos % (Auto) Baso % (Auto) Lymph # (Auto) [place] # (Auto) Eos # (Auto) Baso # (Auto) Abs Immat Gran (auto) Absolute Neuts (auto) Absolute Nucleated RBC Nucleated RBC % (auto) Sodium Potassium Chloride Carbon Dioxide Anion Gap BUN Creatinine Estim Creat Clear Calc Estimated GFR POC Glucose 82 88 74 Random Glucose Lactic Acid Calcium Troponin I High Sens Vancomycin Trough COVID-19 ([facility]) COVID-19 [facility]u Com 04/11/22 04/11/22 04/12/22 18:12 19:19 07:06 WBC RBC Hgb Hct MCV MCH MCHC RDW Plt Count MPV Immature Gran % (Auto) Neut % (Auto) Lymph % (Auto) [place] % (Auto) Eos % (Auto) Baso % (Auto) Lymph # (Auto) [place] # (Auto) Eos # (Auto) Baso # (Auto) Abs Immat Gran (auto) Absolute Neuts (auto) Absolute Nucleated RBC Nucleated RBC % (auto) Sodium Potassium Chloride Carbon Dioxide Anion Gap BUN Creatinine Estim Creat Clear Calc Estimated GFR POC Glucose 171 H 100 Random Glucose Lactic Acid Calcium Troponin I High Sens Vancomycin Trough 15.2 COVID-19 ([facility]) COVID-19 [employer] 04/12/22 04/12/22 04/12/22 07:57 08:02 11:03 WBC 6.7 RBC 5.06 Hgb 14.4 Hct 43.6 MCV 86.2 MCH 28.5 MCHC 33.0 RDW 13.6 Plt Count 186 MPV 10.3 Immature Gran % (Auto) 0.6 H Neut % (Auto) 54.6 Lymph % (Auto) 33.7 [place] % (Auto) 8.6 Eos % (Auto) 2.1 Baso % (Auto) 0.4 Lymph # (Auto) 2.3 [place] # (Auto) 0.6 Eos # (Auto) 0.1 Baso # (Auto) 0.0 Abs Immat Gran (auto) 0.04 H Absolute Neuts (auto) 3.7 Absolute Nucleated RBC 0.000 Nucleated RBC % (auto) 0.0 Sodium 144 Potassium 4.1 Chloride 107 Carbon Dioxide 26 Anion Gap 15 BUN 14 Creatinine 0.97 Estim Creat Clear Calc 81.2 Estimated GFR > 60 POC Glucose 86 Random Glucose 103 Lactic Acid Calcium 9.0 Troponin I High Sens Vancomycin Trough COVID-19 ([facility]) COVID-19 Clin Com Airway Mallampati Class: II TM Dist: >3cm Neck ROM: Full Denture: Upper and Lower Heart: RRR Lungs: CTAB Assessment and Plan Assessment Anesthesia Assessment: Anesthesia Plan Discussed and Chart Reviewed Final Anesthetic Review Family History of Problems with Anesthesia: No History of Problems with Anesthesia: No NPO: Yes ASA Class: III Final Preanesthetic Review: No Changes in Pt Med Stat, Meds/Allgs Chart Reviewed, Consent Obtained/Reviewed and Anes Risks/Benef Reviewed Patient Risk: Intermediate Procedure Risk: Low Assessment/Block/Sedation in SS: Assess/Block/Sedation-SS Anesthetic Plan Anesthetic Plan: GA Disposition: Standard PACU and Inp. Admit - Standard Bed
--- NOTE | 2022-04-12 13:39 | MHC.SHP ---
Pre-Procedural Eval Section A Date of Service: 04/12/22 The patient is an INPATIENT: Yes Section B Chief Complaint: Foot Wound, preop assessment Allergies: Allergies Allergy/AdvReac Type Severity Reaction Status Date / Time codeine [CODEINE] Allergy Unknown delayed Verified 02/07/22 09:46 responses 02/24/17 Plan Diagnosis/Plan: Unchanged I have reviewed the history and physical and performed a pertinent physical examination on my patient. No changes have occurred unless specified.
--- NOTE | 2022-04-12 14:43 | P.OP_ITS ---
Operative Note Operative Note Date of Service: 04/12/22 Narrative: Preoperative diagnosis: Osteomyelitis left 5th metatarsal Postoperative diagnosis: Same Procedure: Incision, drainage, and debridement left foot Surgeon: Olivier Castillo MD [employer] Installer: No physician Anesthesia: General LMA Indications for procedure: 56-year-old male patient presenting with a painful lump in the lateral surface of the left foot over the 5th metatarsal. MRI reveals osteomyelitis collection suggestive of an abscess. Operative findings: No definite abscess, but a cavity without fluid. Specimen: Wound culture, bone biopsy Estimated blood loss: 5 mL Complications: None Procedure details: Patient was brought to the OR placed in a supine position. After administering general anesthesia, the patient's left foot was prepped with Betadine and draped in a sterile fashion. A surgical time-out was called the consent confirmed. Patient received preoperative antibiotics and Venodyne boots were in place. Local anesthesia consisting of 0.5% Sensorcaine was infiltrated over the abscess cavity. An incision was then made with scalpel and carried down through the subcutaneous tissue up to a pocket measuring approximately 2 cm in diameter. Cultures of the fluid were obtained. Cavity was found to extend down to the proximal metatarsal of the 5th toe. A rongeur was used to biopsy bone this location. This was sent as a bone culture. Wounds were then irrigated thoroughly with saline solution. The cavity was then packed with 1/4 inch iodoform gauze. Sterile dressings were then applied. The patient tolerated the procedure well. Sponge, instrument, needle counts reported as correct. The patient was transferred to PACU in stable condition.
--- NOTE | 2022-04-12 16:40 | P.CNID_ITS ---
History of Present Illness Data of Consult Service Date: 04/12/22 Requesting physician: Tiffanie Gil Primary Care Provider: MD KINGS White Reason for consult: left foot osteomyelitis He presents with two months ulcer lateral left foot. He denies injury. He has seen [facility]. He has no fever or chills. MRI shows osteomyelitis left foot base fifth metatarsal. Review of Systems Review of Systems: Yes all other systems are reviewed and are negative PMFSH Past Medical History Medical History Depression Diabetic foot ulcer HTN (hypertension) LBBB (left bundle branch block) Suicidal ideation Type 2 diabetes mellitus with foot ulcer Family History Family History Father Neck malignant neoplasm Family history: reviewed and not pertinent Surgical History Surgical History H/O: vasectomy Social History Social History Household Members: Spouse and Children Housing: House Do you presently have visiting nurse or other home services: No Alcohol intake: current Alcohol intake frequency: holidays/special occasions only Patient Tobacco Use Status: Never used Tobacco Second Hand Smoke Exposure: No Substance Use Type: Marijuana Advance Directives Date on File: 04/11/22 service: No Current occupational status: employed Sexual orientation: Straight/Heterosexual Meds Allergies Allergy/AdvReac Type Severity Reaction Status Date / Time codeine [CODEINE] Allergy Unknown delayed Verified 02/07/22 09:46 responses 02/24/17 Active Medications: Current Medications Acetaminophen (Acetaminophen 325 Mg Tablet) 650 mg PO Q6H PRN PRN Reason: Pain, Mild (Pain Scale 1-3) Aripiprazole (Aripiprazole 2 Mg Tablet) 2 mg PO DAILY [facility] Last Admin: 04/12/22 08:45 Dose: 2 mg Bupropion HCl (Bupropion Hcl Xl 150 Mg Tab.Er.24h) 150 mg PO DAILY [facility] Last Admin: 04/12/22 08:43 Dose: 150 mg Bupropion HCl (Bupropion Hcl Xl 300 Mg Tab.Er.24h) 300 mg PO DAILY [facility] Last Admin: 04/12/22 08:43 Dose: 300 mg Dextrose (Dextrose 50 % 25 Gm/50 Ml Syringe) 25 gm IVPUSH Q15M PRN; Protocol PRN Reason: per Hypoglycemia Standing Ord. Enoxaparin Sodium (Enoxaparin Sodium 40 Mg/0.4 Ml Syringe) 40 mg SUBCUT Q24H [facility] Last Admin: 04/11/22 17:36 Dose: 40 mg Fentanyl (Fentanyl Citrate/Pf 100 Mcg/2 Ml Vial) 25 mcg IVPUSH Q5M PRN; Protocol PRN Reason: Pain, Moderate (Pain Scale 4-6 Glucose (Glucose Gel 15 Gm Gel..Gram.) 15 gm PO Q15M PRN; Protocol PRN Reason: per Hypoglycemia Standing Ord. Hydromorphone HCl (Hydromorphone Hcl 0.5 Mg/0.5 Ml Syringe) 0.5 mg IVPUSH Q4H PRN; Protocol PRN Reason: Pain, Severe (Pain Scale 7-10) Last Admin: 04/11/22 08:57 Dose: 0.5 mg Piperacillin Sod/Tazobactam (Sod 2.25 gm/ Sodium Chloride) 50 mls @ 100 mls/hr IV Q6H [facility] Last Infusion: 04/12/22 10:31 Dose: Infused Vancomycin HCl 750 mg/ Sodium (Chloride) 265 mls @ 265 mls/hr IV Q12H [facility] Last Infusion: 04/12/22 10:00 Dose: Infused Lactated Ringer's (Lr) 1,000 mls @ 100 mls/hr IVCONT .Q10H [facility] Insulin Human Lispro (Insulin Lispro 100 Unit/Ml 3 Ml Vial) 0 unit SUBCUT QIDACHS [facility]; Protocol Last Admin: 04/12/22 11:16 Dose: Not Given Metoprolol Tartrate (Metoprolol Tartrate 25 Mg Tablet) 25 mg PO BID [facility]; Protocol Last Admin: 04/12/22 08:43 Dose: 25 mg Ondansetron HCl (Ondansetron Hcl 4 Mg/2 Ml Vial) 4 mg IVPUSH Q8H PRN PRN Reason: Nausea and Vomiting Oxycodone HCl (Oxycodone Hcl Immed Release 5 Mg Tablet) 5 mg PO Q4H PRN PRN Reason: Pain, Moderate (Pain Scale 4-6 Last Admin: 04/12/22 08:44 Dose: 5 mg Pharmacy Consult (Consult Rx Vancomycin Dosing) 1 each MISCELLANE DAILY PRN PRN Reason: Consult order Pharmacy Consult (Consult Rx Perform Med Rec) 1 each MISCELLANE ONCE PRN PRN Reason: Consult order Pharmacy Consult (Consult Rx Vancomycin Dosing) 1 each MISCELLANE DAILY PRN PRN Reason: Consult order Sodium Chloride (0.9 % Sodium Chloride Flush 3 Ml Syringe) 3 ml IVFLUSH QSHIFT [facility] Last Admin: 04/12/22 08:31 Dose: 3 ml Valsartan (Valsartan 160 Mg Tablet) 160 mg PO DAILY [facility]; Protocol Home Medications Medication Instructions Recorded Confirmed Last Taken Type metformin 500 mg tablet,extended 2 tab PO BID 12/08/21 04/10/22 04/09/22 09:00 History release 24 hr dulaglutide 1.5 mg/0.5 mL 1.5 mg subcut FR@0900 04/10/22 04/10/22 Unknown History subcutaneous pen injector ([facility]) Physical Exam Vital Signs: Vital Signs: Last Vital Signs Temp 97.2 F 04/12/22 15:04 Pulse 72 04/12/22 15:04 Resp 22 H 04/12/22 15:04 BP 133/77 04/12/22 15:04 Pulse Ox 94 04/12/22 15:04 O2 Del Method 04/12/22 15:04 O2 Flow Rate 0 04/12/22 15:04 BMI result Body Mass Index 25.4 Const: General: cooperative HEENT: Head: Yes normal to inspection Face and sinus: Yes normal facial exam Mouth: Normal oral and palatal mucosa present Teeth and gingiva: dentition normal Eyes: General: appearance normal, both eyes and all related structures Pupils: Equal, round and reactive pupils present Resp: Effort & Inspection: normal respiratory effort Cardio: Rate: regular rate Rhythm: regular rhythm GI: Palpation (GI): Soft to palpation and nontender : General: Yes no CVA tenderness Back/Spine/Pelvis: Back: no CVA tenderness Skin: General skin exam: no rashes or lesions noted Neuro: General: moves all extremities Cranial nerves: Yes Equal, round and reactive pupils present Extrem: Other: left foot lateral erythema Psych: Appearance: grossly normal Results Labs CBC & Chem 7: 04/12/22 08:02 04/12/22 07:57 Labs: Short CBC 04/12/22 Range/Units 08:02 WBC 6.7 (4.8-10.8) X10*3/uL Hgb 14.4 (14.0-18.0) g/dl Hct 43.6 (42.0-52.0) % Plt Count 186 (160-400) X10*3/uL BMP 04/12/22 07:57 Sodium 144 Potassium 4.1 Chloride 107 Carbon Dioxide 26 BUN 14 Creatinine 0.97 Calcium 9.0 Microbiology Microbiology Results: Microbiology 04/12/22 Unknown Bone Gram Stain - Final 04/12/22 Unknown Foot Left Gram Stain - Final 04/10/22 06:44 Blood - Venous Blood Culture - Preliminary No growth after 48 hours. 04/10/22 06:44 Blood - Venous Blood Culture - Preliminary No growth after 48 hours. Assessment and Plan (1) Osteomyelitis: Qualifiers: Laterality: left Osteomyelitis location: foot Osteomyelitis type: unspecified type Qualified Code(s): M86.9 - Osteomyelitis, unspecified Status: Acute He has negative cultures so far He has probable staph,strep, gram negative Plan Would continue IV Vancomycin and Zosyn for now. Would await biopsy and drainage. Probable six weeks iV antibiotics
[2022-04-12 17:25] LABS: Glucose, Whole Blood 84 mg/dL (60-115)
[2022-04-12] MEDS: Enoxaparin Sodium 40 MG/0.4 ML SYRINGE SUBCUT (17:55)
[2022-04-12 18:50] LABS: Vancomycin Random 14.2 mcg/mL (15-20)
[2022-04-12] MEDS: HYDROmorphone HCl 0.5 MG/0.5 ML SYRINGE IVPUSH ×2 (19:30→23:37)
[2022-04-12] MEDS: Lactated Ringers 1,000 ML 100 ML IVCONT (19:43)
[2022-04-12 19:56] LABS: Glucose, Whole Blood 166 mg/dL (60-115)
[2022-04-12] MEDS: Insulin Lispro 100 UNIT/ML 3 ML VIAL SUBCUT (19:57)
[2022-04-13] VITALS (7 sets, daily range): BP systolic 88–158; BP diastolic 54–96; PULSE 70–78; RESP 16–19; TEMP 36.2–37.1; O2SAT 94–98
[2022-04-13] MEDS: HYDROmorphone HCl 0.5 MG/0.5 ML SYRINGE IVPUSH ×3 (04:03→12:38)
[2022-04-13] MEDS: Lactated Ringers 1,000 ML 100 ML IVCONT ×2 (04:03→10:02)
[2022-04-13 06:07] LABS: Creatinine Clr Calc Pharmacy 88.5; Estimated Glomerular Filt Rate > 60
[2022-04-13] MEDS: Piperacillin Sodium/Tazobactam 2.25 GM in 0.9 % Sodium Chloride 50 ML IV ×4 (06:17→23:10)
[2022-04-13 07:52] LABS: Glucose, Whole Blood 98 mg/dL (60-115)
--- NOTE | 2022-04-13 09:10 | HE.PHANOTE ---
Vancomycin Dosing Addendum Vancomycin Trough scheduled for tonight at 1800. Continue current regimen for now. Cr trending down, may need to increase dose.
--- NOTE | 2022-04-13 09:29 | PM.PNGS ---
Subjective Subjective Date of Service: 04/13/22 Interval history: Patient reporting continued foot pain following incision and drainage. Physical Exam Vital Signs: Vital Signs: Last Vital Signs Temp 97.2 F 04/13/22 07:29 Pulse 71 04/13/22 07:29 Resp 18 04/13/22 07:29 BP 140/76 H 04/13/22 07:29 Pulse Ox 96 04/13/22 07:29 O2 Del Method 04/13/22 07:29 O2 Flow Rate 0 04/12/22 15:04 BMI result Body Mass Index 25.4 Const: General: healthy appearing and no acute distress Nutritional Appearance: well nourished Orientation/consciousness: patient oriented x3 Limitations: ambulation with walker Resp: Effort & Inspection: normal respiratory effort Skin: General skin exam: no rashes or lesions noted Neuro: General: patient oriented x3 Extrem: Other: Left foot S/P incision and drainage lateral foot. Dressings changed. Erythema essentially unchanged. Wick removed and dry sterile dressings applied. Objective Data Active Medications Acetaminophen (Acetaminophen 325 Mg Tablet) 650 mg PO Q6H PRN PRN Reason: Pain, Mild (Pain Scale 1-3) Aripiprazole (Aripiprazole 2 Mg Tablet) 2 mg PO DAILY [facility] Last Admin: 04/12/22 08:45 Dose: 2 mg Documented By: BESSIE Bupropion HCl (Bupropion Hcl Xl 150 Mg Tab.Er.24h) 150 mg PO DAILY [facility] Last Admin: 04/12/22 08:43 Dose: 150 mg Documented By: BESSIE Bupropion HCl (Bupropion Hcl Xl 300 Mg Tab.Er.24h) 300 mg PO DAILY [facility] Last Admin: 04/12/22 08:43 Dose: 300 mg Documented By: BESSIE Dextrose (Dextrose 50 % 25 Gm/50 Ml Syringe) 25 gm IVPUSH Q15M PRN; Protocol PRN Reason: per Hypoglycemia Standing Ord. Enoxaparin Sodium (Enoxaparin Sodium 40 Mg/0.4 Ml Syringe) 40 mg SUBCUT Q24H [facility] Last Admin: 04/12/22 17:55 Dose: 40 mg Documented By: BESSIE Fentanyl (Fentanyl Citrate/Pf 100 Mcg/2 Ml Vial) 25 mcg IVPUSH Q5M PRN; Protocol PRN Reason: Pain, Moderate (Pain Scale 4-6 Glucose (Glucose Gel 15 Gm Gel..Gram.) 15 gm PO Q15M PRN; Protocol PRN Reason: per Hypoglycemia Standing Ord. Hydromorphone HCl (Hydromorphone Hcl 0.5 Mg/0.5 Ml Syringe) 0.5 mg IVPUSH Q4H PRN; Protocol PRN Reason: Pain, Severe (Pain Scale 7-10) Last Admin: 04/13/22 08:22 Dose: 0.5 mg Documented By: JUSTEN Vancomycin HCl 750 mg/ Sodium (Chloride) 265 mls @ 265 mls/hr IV Q12H [facility] Last Infusion: 04/12/22 20:54 Dose: 0 mls/hr Documented By: FRANCE Lactated Ringer's (Lr) 1,000 mls @ 100 mls/hr IVCONT .Q10H [facility] Last Admin: 04/13/22 04:03 Dose: 100 mls/hr Documented By: FRANCE Piperacillin Sod/Tazobactam (Sod 2.25 gm/ Sodium Chloride) 50 mls @ 100 mls/hr IV Q6H [facility] Last Infusion: 04/13/22 07:38 Dose: 0 mls/hr Documented By: JUSTEN Insulin Human Lispro (Insulin Lispro 100 Unit/Ml 3 Ml Vial) 0 unit SUBCUT QIDACHS [facility]; Protocol Last Admin: 04/13/22 07:55 Dose: Not Given Documented By: JUSTEN Non-Admin Reason: No Insulin Coverage Metoprolol Tartrate (Metoprolol Tartrate 25 Mg Tablet) 25 mg PO BID [facility]; Protocol Last Admin: 04/12/22 19:52 Dose: 25 mg Documented By: FRANCE Ondansetron HCl (Ondansetron Hcl 4 Mg/2 Ml Vial) 4 mg IVPUSH Q8H PRN PRN Reason: Nausea and Vomiting Oxycodone HCl (Oxycodone Hcl Immed Release 5 Mg Tablet) 5 mg PO Q4H PRN PRN Reason: Pain, Moderate (Pain Scale 4-6 Last Admin: 04/12/22 08:44 Dose: 5 mg Documented By: BESSIE Pharmacy Consult (Consult Rx Vancomycin Dosing) 1 each MISCELLANE DAILY PRN PRN Reason: Consult order Pharmacy Consult (Consult Rx Perform Med Rec) 1 each MISCELLANE ONCE PRN PRN Reason: Consult order Pharmacy Consult (Consult Rx Vancomycin Dosing) 1 each MISCELLANE DAILY PRN PRN Reason: Consult order Sodium Chloride (0.9 % Sodium Chloride Flush 3 Ml Syringe) 3 ml IVFLUSH QSHIFT [facility] Last Admin: 04/13/22 07:38 Dose: Not Given Documented By: JUSTEN Non-Admin Reason: IV Running Valsartan (Valsartan 160 Mg Tablet) 160 mg PO DAILY [facility]; Protocol Labs CBC & Chem 7: 04/12/22 08:02 04/13/22 05:13 Labs: Laboratory Results - last 24 hr 04/12/22 04/12/22 04/12/22 11:03 16:53 18:04 Estim Creat Clear Calc Estimated GFR POC Glucose 86 84 Random Vancomycin 14.2 L 04/12/22 04/13/22 04/13/22 19:52 05:13 07:47 Estim Creat Clear Calc 88.5 Estimated GFR > 60 POC Glucose 166 H 98 Random Vancomycin Microbiology Microbiology Results: Microbiology 04/12/22 Unknown Gram Stain - Final Bone 04/12/22 Unknown Gram Stain - Final Foot Left 04/10/22 06:44 Blood Culture - Preliminary Blood - Venous No growth after 48 hours. 04/10/22 06:44 Blood Culture - Preliminary Blood - Venous No growth after 48 hours. Procedures Date of Service Date of Service: 04/13/22 Progress Note: A&P Assessment and plan (1) Osteomyelitis: Status: Acute Plan Pod 1 S/P incision and drainage, bone culture and wound culture sent and pending. Will need daily dressing changes with dry sterile dressings. Will attempt to procure a surgical shoe. Time Spent With Patient Time: Total time spent is greater than 50% in coordination of care (as documented) at patient's floor/unit and/or counseling patient: Quality Stroke Does the patient have a stroke diagnosis?: No VTE Prior VTE?: No VTE Risk Level:: Medical - moderate - high VTE Device Contraindication: Treatment Not Indicated VTE Drug Contraindication: N/A - Med Ordered
[2022-04-13] MEDS: vancomycin HCL 750 MG in 0.9 % Sodium Chloride 250 ML 265 MG IV ×2 (10:00→19:39)
[2022-04-13] MEDS: Metoprolol Tartrate 25 MG TABLET PO ×2 (10:01→19:38)
[2022-04-13] MEDS: ARIPiprazole 2 MG TABLET PO (10:02)
[2022-04-13] MEDS: buPROPion HCl XL 300 MG TAB.ER.24H PO (10:02)
[2022-04-13] MEDS: buPROPion HCl XL 150 MG TAB.ER.24H PO (10:02)
[2022-04-13] MEDS: Valsartan 160 MG TABLET PO (10:02)
[2022-04-13 11:17] LABS: Glucose, Whole Blood 171 mg/dL (60-115)
[2022-04-13] MEDS: Insulin Lispro 100 UNIT/ML 3 ML VIAL SUBCUT ×3 (12:00→20:02)
[2022-04-13 15:32] LABS: Glucose, Whole Blood 208 mg/dL (60-115)
--- NOTE | 2022-04-13 16:38 | HO.PM.IMPN ---
Subjective Subjective Date of Service: 04/13/22 Interval History: seen and examined this morning follow up for left foot infection s/p I&D in OR yesterday still having left foot pain denies fever or chills Review of Systems Review of Systems: Yes all other systems are reviewed and are negative Constitutional Constitutional: Denies chills and Denies fever(s) Cardiovascular Cardiovascular: Denies chest pain, Denies palpitations and Denies dyspnea Respiratory Respiratory: Denies cough and Denies dyspnea Gastrointestinal Gastrointestinal: Denies abdominal pain, Denies nausea and Denies vomiting Endocrine Endocrine: Denies palpitations Physical Exam Vital Signs: Vital Signs: Last Vital Signs Temp 97.8 F 04/13/22 15:30 Pulse 70 04/13/22 15:30 Resp 16 04/13/22 15:30 BP 132/72 04/13/22 15:30 Pulse Ox 96 04/13/22 15:30 O2 Del Method 04/13/22 15:30 O2 Flow Rate 0 04/12/22 15:04 BMI result Body Mass Index 25.4 Const: General: cooperative, comfortable, alert and awake Nutritional Appearance: average body habitus Orientation/consciousness: patient oriented x3 Resp: Effort & Inspection: normal respiratory effort and able to speak in complete sentences Auscultation: clear to auscultation bilaterally Cardio: Rate: regular rate Heart sounds: S1 normal heart sound present, S2 normal heart sound present and Murmur heart sound present GI: Inspection: No distended Palpation (GI): Soft to palpation and nontender Neuro: General: patient oriented x3 and CN's II-XI intact bilaterally Extrem: Other: left foot wrapped in C/D/I dressing Objective Data Active Medications Acetaminophen (Acetaminophen 325 Mg Tablet) 650 mg PO Q6H PRN PRN Reason: Pain, Mild (Pain Scale 1-3) Aripiprazole (Aripiprazole 2 Mg Tablet) 2 mg PO DAILY [facility] Last Admin: 04/13/22 10:02 Dose: 2 mg Documented By: SINDY Bupropion HCl (Bupropion Hcl Xl 150 Mg Tab.Er.24h) 150 mg PO DAILY [facility] Last Admin: 04/13/22 10:02 Dose: 150 mg Documented By: SINDY Bupropion HCl (Bupropion Hcl Xl 300 Mg Tab.Er.24h) 300 mg PO DAILY [facility] Last Admin: 04/13/22 10:02 Dose: 300 mg Documented By: SINDY Dextrose (Dextrose 50 % 25 Gm/50 Ml Syringe) 25 gm IVPUSH Q15M PRN; Protocol PRN Reason: per Hypoglycemia Standing Ord. Enoxaparin Sodium (Enoxaparin Sodium 40 Mg/0.4 Ml Syringe) 40 mg SUBCUT Q24H [facility] Last Admin: 04/12/22 17:55 Dose: 40 mg Documented By: BESSIE Glucose (Glucose Gel 15 Gm Gel..Gram.) 15 gm PO Q15M PRN; Protocol PRN Reason: per Hypoglycemia Standing Ord. Hydromorphone HCl (Hydromorphone Hcl 0.5 Mg/0.5 Ml Syringe) 0.5 mg IVPUSH Q4H PRN; Protocol PRN Reason: Pain, Severe (Pain Scale 7-10) Last Admin: 04/13/22 12:38 Dose: 0.5 mg Documented By: JUSTEN Vancomycin HCl 750 mg/ Sodium (Chloride) 265 mls @ 265 mls/hr IV Q12H [facility] Last Infusion: 04/13/22 11:27 Dose: 0 mls/hr Documented By: JUSTEN Piperacillin Sod/Tazobactam (Sod 2.25 gm/ Sodium Chloride) 50 mls @ 100 mls/hr IV Q6H [facility] Last Infusion: 04/13/22 13:16 Dose: 0 mls/hr Documented By: JUSTEN Insulin Human Lispro (Insulin Lispro 100 Unit/Ml 3 Ml Vial) 0 unit SUBCUT QIDACHS [facility]; Protocol Last Admin: 04/13/22 12:00 Dose: 2 unit Documented By: SINDY Metoprolol Tartrate (Metoprolol Tartrate 25 Mg Tablet) 25 mg PO BID [facility]; Protocol Last Admin: 04/13/22 10:01 Dose: 25 mg Documented By: SINDY Ondansetron HCl (Ondansetron Hcl 4 Mg/2 Ml Vial) 4 mg IVPUSH Q8H PRN PRN Reason: Nausea and Vomiting Oxycodone HCl (Oxycodone Hcl Immed Release 5 Mg Tablet) 5 mg PO Q4H PRN PRN Reason: Pain, Moderate (Pain Scale 4-6 Last Admin: 04/12/22 08:44 Dose: 5 mg Documented By: BESSIE Pharmacy Consult (Consult Rx Vancomycin Dosing) 1 each MISCELLANE DAILY PRN PRN Reason: Consult order Pharmacy Consult (Consult Rx Perform Med Rec) 1 each MISCELLANE ONCE PRN PRN Reason: Consult order Pharmacy Consult (Consult Rx Vancomycin Dosing) 1 each MISCELLANE DAILY PRN PRN Reason: Consult order Sodium Chloride (0.9 % Sodium Chloride Flush 3 Ml Syringe) 3 ml IVFLUSH QSHIFT [facility] Last Admin: 04/13/22 07:38 Dose: Not Given Documented By: JUSTEN Non-Admin Reason: IV Running Valsartan (Valsartan 160 Mg Tablet) 160 mg PO DAILY [facility]; Protocol Last Admin: 04/13/22 10:02 Dose: 160 mg Documented By: SINDY Labs CBC & Chem 7: 04/12/22 08:02 04/13/22 05:13 Labs: Laboratory Results - last 24 hr 04/12/22 04/12/22 04/12/22 16:53 18:04 19:52 Estim Creat Clear Calc Estimated GFR POC Glucose 84 166 H Random Vancomycin 14.2 L 04/13/22 04/13/22 04/13/22 05:13 07:47 11:05 Estim Creat Clear Calc 88.5 Estimated GFR > 60 POC Glucose 98 171 H Random Vancomycin 04/13/22 15:14 Estim Creat Clear Calc Estimated GFR POC Glucose 208 H Random Vancomycin Microbiology Microbiology Results: Microbiology 04/12/22 Unknown Gram Stain - Final Foot Left Routine Culture - Preliminary Culture in progress. 04/12/22 Unknown Gram Stain - Final Bone Routine Culture - Preliminary Culture in progress. Anaerobic Culture - Preliminary Culture in progress. Assessment and Plan (1) Osteomyelitis: Status: Acute Plan 56-year-old man admitted with diabetic foot ulcer that has been present since January of this year admitted for osteomyelitis left foot ulcer osteomyelitis with abscess related to diabetes continue vancomycin/Zosyn Seen by ID, continue current abx for now - will likely need 6w IV abx Blood cultures negative x 48 hours s/p I&D 04/12 - follow wound cultures Chest pain chronic. no change from baseline Plan for outpatient cardiac cath next week seen by cardiology - intermediate risk for planned procedure. recommend to repeat echo, pending Diabetes mellitus januvia, trulicity, metformin on hold Sliding scale, ADA diet Hypertension bp elevated will increase dose of valsartan Mood No thoughts of suicide ideation Continue home medications DVT prophylaxis Lovenox Attending Dr. Chinchilla Full code Pt requires continued inpt stay due to acute osteomyelitis requiring IV abx and I&D for abscess of lft foot Quality Stroke Does the patient have a stroke diagnosis?: No VTE Prior VTE?: No VTE Risk Level:: Medical - moderate - high VTE Device Contraindication: Treatment Not Indicated VTE Drug Contraindication: N/A - Med Ordered
[2022-04-13] MEDS: 0.9 % Sodium Chloride Flush 3 ML SYRINGE IVFLUSH (16:54)
[2022-04-13] MEDS: Enoxaparin Sodium 40 MG/0.4 ML SYRINGE SUBCUT (17:38)
[2022-04-13 19:10] LABS: Vancomycin Trough 14.7 mcg/mL (10.0-20.0)
--- NOTE | 2022-04-13 19:15 | HE.PHANOTE ---
Vancomycin Dosing Addendum Trough is 14.7 today from 14.2 yesterday. Renal function has slightly improved. Will continue current regimen. Next trough 04/14 @ 1800. Imelda LaurentD
[2022-04-13 19:48] LABS: Glucose, Whole Blood 156 mg/dL (60-115)
[2022-04-14] MEDS: 0.9 % Sodium Chloride Flush 3 ML SYRINGE IVFLUSH ×3 (01:14→17:04)
[2022-04-14] MEDS: Piperacillin Sodium/Tazobactam 2.25 GM in 0.9 % Sodium Chloride 50 ML IV ×3 (05:04→17:03)
[2022-04-14 06:53] LABS: Hematocrit 42.2 % (42.0-52.0); Hemoglobin 13.8 g/dl (14.0-18.0); Mean Corpuscular HGB Conc 32.7 g/dl (31.0-36.0); Mean Corpuscular Hemoglobin 27.9 pg (27.0-33.0); Mean Corpuscular Volume 85.4 fL (80.0-98.0); Mean Platelet Volume 10.1 fL (9.4-12.4); Platelet Count 184 X10*3/uL (160-400); Red Blood Count 4.94 X10*6/uL (4.60-5.80); Red Cell Distribution Width 13.5 % (11.0-16.0); White Blood Count 5.9 X10*3/uL (4.8-10.8)
[2022-04-14 07:20] LABS: Anion Gap 17 (12-20); Blood Urea Nitrogen 8 mg/dL (9-16); Carbon Dioxide 25 mmol/L (22-29); Chloride 110 mmol/L (96-108); Creatinine Clr Calc Pharmacy 105.1; Estimated Glomerular Filt Rate > 60; Glucose Random 122 mg/dL (60-115); Sodium 148 mmol/L (135-145)
[2022-04-14 07:36] VITALS: BP 149/71; PULSE 75; RESP 16; TEMP 36.4; O2SAT 96
[2022-04-14 08:12] LABS: Glucose, Whole Blood 117 mg/dL (60-115)
[2022-04-14] MEDS: vancomycin HCL 750 MG in 0.9 % Sodium Chloride 250 ML 265 MG IV (08:53)
[2022-04-14] MEDS: Valsartan 160 MG TABLET PO (08:53)
[2022-04-14] MEDS: buPROPion HCl XL 300 MG TAB.ER.24H PO (08:53)
[2022-04-14] MEDS: ARIPiprazole 2 MG TABLET PO (08:53)
[2022-04-14] MEDS: Metoprolol Tartrate 25 MG TABLET PO ×2 (08:53→21:53)
[2022-04-14] MEDS: buPROPion HCl XL 150 MG TAB.ER.24H PO (08:53)
--- NOTE | 2022-04-14 09:25 | PM.PNGS ---
Subjective Subjective Date of Service: 04/14/22 Interval history: Reports improving pain in the left foot denies any new symptoms. Physical Exam Vital Signs: Vital Signs: Last Vital Signs Temp 97.5 F 04/14/22 07:36 Pulse 75 04/14/22 07:36 Resp 16 04/14/22 07:36 BP 149/71 H 04/14/22 07:36 Pulse Ox 96 04/14/22 07:36 O2 Del Method 04/14/22 07:36 O2 Flow Rate 0 04/12/22 15:04 BMI result Body Mass Index 25.4 Const: General: healthy appearing and no acute distress Nutritional Appearance: well nourished Orientation/consciousness: patient oriented x3 Limitations: ambulation with walker Resp: Effort & Inspection: normal respiratory effort Skin: General skin exam: no rashes or lesions noted Neuro: General: patient oriented x3 Extrem: Other: Left foot S/P incision and drainage lateral foot. Dressings changed. Erythema now gone. There is a small amount of serous discharge noted. Minimal tenderness to palpation. Wounds are much improved. Objective Data Active Medications Acetaminophen (Acetaminophen 325 Mg Tablet) 650 mg PO Q6H PRN PRN Reason: Pain, Mild (Pain Scale 1-3) Aripiprazole (Aripiprazole 2 Mg Tablet) 2 mg PO DAILY [facility] Last Admin: 04/14/22 08:53 Dose: 2 mg Documented By: MADELIN Bupropion HCl (Bupropion Hcl Xl 150 Mg Tab.Er.24h) 150 mg PO DAILY [facility] Last Admin: 04/14/22 08:53 Dose: 150 mg Documented By: MADELIN Bupropion HCl (Bupropion Hcl Xl 300 Mg Tab.Er.24h) 300 mg PO DAILY [facility] Last Admin: 04/14/22 08:53 Dose: 300 mg Documented By: MADELIN Dextrose (Dextrose 50 % 25 Gm/50 Ml Syringe) 25 gm IVPUSH Q15M PRN; Protocol PRN Reason: per Hypoglycemia Standing Ord. Enoxaparin Sodium (Enoxaparin Sodium 40 Mg/0.4 Ml Syringe) 40 mg SUBCUT Q24H [facility] Last Admin: 04/13/22 17:38 Dose: 40 mg Documented By: JUSTEN Glucose (Glucose Gel 15 Gm Gel..Gram.) 15 gm PO Q15M PRN; Protocol PRN Reason: per Hypoglycemia Standing Ord. Hydromorphone HCl (Hydromorphone Hcl 0.5 Mg/0.5 Ml Syringe) 0.5 mg IVPUSH Q4H PRN; Protocol PRN Reason: Pain, Severe (Pain Scale 7-10) Last Admin: 04/13/22 12:38 Dose: 0.5 mg Documented By: JUSTEN Vancomycin HCl 750 mg/ Sodium (Chloride) 265 mls @ 265 mls/hr IV Q12H [facility] Last Admin: 04/14/22 08:53 Dose: 265 mls/hr Documented By: MADELIN Piperacillin Sod/Tazobactam (Sod 2.25 gm/ Sodium Chloride) 50 mls @ 100 mls/hr IV Q6H [facility] Last Infusion: 04/14/22 05:43 Dose: 0 mls/hr Documented By: JOHAN Insulin Human Lispro (Insulin Lispro 100 Unit/Ml 3 Ml Vial) 0 unit SUBCUT QIDACHS [facility]; Protocol Last Admin: 04/14/22 08:44 Dose: Not Given Documented By: MADELIN Non-Admin Reason: No Insulin Coverage Metoprolol Tartrate (Metoprolol Tartrate 25 Mg Tablet) 25 mg PO BID [facility]; Protocol Last Admin: 04/14/22 08:53 Dose: 25 mg Documented By: MADELIN Ondansetron HCl (Ondansetron Hcl 4 Mg/2 Ml Vial) 4 mg IVPUSH Q8H PRN PRN Reason: Nausea and Vomiting Oxycodone HCl (Oxycodone Hcl Immed Release 5 Mg Tablet) 5 mg PO Q4H PRN PRN Reason: Pain, Moderate (Pain Scale 4-6 Last Admin: 04/12/22 08:44 Dose: 5 mg Documented By: BESSIE Pharmacy Consult (Consult Rx Vancomycin Dosing) 1 each MISCELLANE DAILY PRN PRN Reason: Consult order Pharmacy Consult (Consult Rx Perform Med Rec) 1 each MISCELLANE ONCE PRN PRN Reason: Consult order Pharmacy Consult (Consult Rx Vancomycin Dosing) 1 each MISCELLANE DAILY PRN PRN Reason: Consult order Sodium Chloride (0.9 % Sodium Chloride Flush 3 Ml Syringe) 3 ml IVFLUSH QSHIFT [facility] Last Admin: 04/14/22 08:54 Dose: 3 ml Documented By: MADELIN Valsartan (Valsartan 160 Mg Tablet) 160 mg PO DAILY [facility]; Protocol Last Admin: 04/14/22 08:53 Dose: 160 mg Documented By: MADELIN Labs CBC & Chem 7: 04/14/22 05:49 04/14/22 05:49 Labs: Laboratory Results - last 24 hr 04/13/22 04/13/22 04/13/22 11:05 15:14 18:13 MCV MCH MCHC RDW Plt Count MPV Absolute Nucleated RBC Nucleated RBC % (auto) Anion Gap Estim Creat Clear Calc Estimated GFR POC Glucose 171 H 208 H Random Glucose Calcium Vancomycin Trough 14.7 04/13/22 04/14/22 04/14/22 19:27 05:49 05:49 MCV 85.4 MCH 27.9 MCHC 32.7 RDW 13.5 Plt Count 184 MPV 10.1 Absolute Nucleated RBC 0.000 Nucleated RBC % (auto) 0.0 Anion Gap 17 Estim Creat Clear Calc 105.1 Estimated GFR > 60 POC Glucose 156 H Random Glucose 122 H Calcium 9.0 Vancomycin Trough 04/14/22 07:39 MCV MCH MCHC RDW Plt Count MPV Absolute Nucleated RBC Nucleated RBC % (auto) Anion Gap Estim Creat Clear Calc Estimated GFR POC Glucose 117 H Random Glucose Calcium Vancomycin Trough Microbiology Microbiology Results: Microbiology 04/12/22 Unknown Gram Stain - Final Foot Left Routine Culture - Preliminary Culture in progress. 04/12/22 Unknown Gram Stain - Final Bone Routine Culture - Preliminary Culture in progress. Anaerobic Culture - Preliminary Culture in progress. Procedures Date of Service Date of Service: 04/14/22 Progress Note: A&P Assessment and plan (1) Osteomyelitis: Status: Acute Plan POD# 2 S/P incision and drainage, bone culture and wound culture sent and are pending today. Dressings changed and wounds appear much improved today. Patient is awaiting PICC placement for home antibiotics. Time Spent With Patient Time: Total time spent is greater than 50% in coordination of care (as documented) at patient's floor/unit and/or counseling patient: Quality Stroke Does the patient have a stroke diagnosis?: No VTE Prior VTE?: No VTE Risk Level:: Medical - moderate - high VTE Device Contraindication: Treatment Not Indicated VTE Drug Contraindication: N/A - Med Ordered
--- NOTE | 2022-04-14 11:26 | HO.POSTANES ---
Post Anesthesia Evaluation Post Anesthesia Evaluation Vital Signs: Vital Signs Temp Pulse Resp BP Pulse Ox O2 Del Method 04/14/22 07:36 97.5 F 75 16 149/71 H 96 Room Air Anesthesia: General Mental Status: Awake Pain Control: Satisfactory Nausea/Vomiting: None Hydration: Adequate Anesthesia-Related Issues: No Anes. Related Issues Comments: arun
[2022-04-14 11:53] VITALS: BP 164/81; PULSE 75; RESP 16; TEMP 36.2; O2SAT 97
[2022-04-14 12:00] LABS: Glucose, Whole Blood 133 mg/dL (60-115)
[2022-04-14] MEDS: oxyCODONE HCl Immed Release 5 MG TABLET PO (12:28)
--- NOTE | 2022-04-14 14:36 | HO.PM.IMPN ---
Subjective Subjective Date of Service: 04/14/22 Interval History: seen and examined this morning Follow-up for left foot osteomyelitis Still with pain Denies fever, chills Review of Systems Review of Systems: Yes all other systems are reviewed and are negative Constitutional Constitutional: Denies chills and Denies fever(s) Cardiovascular Cardiovascular: Denies chest pain, Denies palpitations and Denies dyspnea Respiratory Respiratory: Denies cough and Denies dyspnea Endocrine Endocrine: Denies palpitations Physical Exam Vital Signs: Vital Signs: Last Vital Signs Temp 97.2 F 04/14/22 11:53 Pulse 75 04/14/22 11:53 Resp 16 04/14/22 11:53 BP 164/81 H 04/14/22 11:53 Pulse Ox 97 04/14/22 11:53 O2 Del Method 04/14/22 11:53 O2 Flow Rate 0 04/12/22 15:04 BMI result Body Mass Index 25.4 Const: General: cooperative, comfortable, alert and awake Nutritional Appearance: average body habitus Orientation/consciousness: patient oriented x3 Resp: Effort & Inspection: normal respiratory effort and able to speak in complete sentences Auscultation: clear to auscultation bilaterally Cardio: Rate: regular rate Heart sounds: S1 normal heart sound present, S2 normal heart sound present and Murmur heart sound present GI: Inspection: No distended Palpation (GI): Soft to palpation and nontender Neuro: General: patient oriented x3 and CN's II-XI intact bilaterally Extrem: Other: left foot wrapped in C/D/I dressing Objective Data Active Medications Acetaminophen (Acetaminophen 325 Mg Tablet) 650 mg PO Q6H PRN PRN Reason: Pain, Mild (Pain Scale 1-3) Aripiprazole (Aripiprazole 2 Mg Tablet) 2 mg PO DAILY [facility] Last Admin: 04/14/22 08:53 Dose: 2 mg Documented By: MADELIN Bupropion HCl (Bupropion Hcl Xl 150 Mg Tab.Er.24h) 150 mg PO DAILY [facility] Last Admin: 04/14/22 08:53 Dose: 150 mg Documented By: MADELIN Bupropion HCl (Bupropion Hcl Xl 300 Mg Tab.Er.24h) 300 mg PO DAILY [facility] Last Admin: 04/14/22 08:53 Dose: 300 mg Documented By: MADELIN Dextrose (Dextrose 50 % 25 Gm/50 Ml Syringe) 25 gm IVPUSH Q15M PRN; Protocol PRN Reason: per Hypoglycemia Standing Ord. Enoxaparin Sodium (Enoxaparin Sodium 40 Mg/0.4 Ml Syringe) 40 mg SUBCUT Q24H [facility] Last Admin: 04/13/22 17:38 Dose: 40 mg Documented By: JUSTEN Glucose (Glucose Gel 15 Gm Gel..Gram.) 15 gm PO Q15M PRN; Protocol PRN Reason: per Hypoglycemia Standing Ord. Hydromorphone HCl (Hydromorphone Hcl 0.5 Mg/0.5 Ml Syringe) 0.5 mg IVPUSH Q4H PRN; Protocol PRN Reason: Pain, Severe (Pain Scale 7-10) Last Admin: 04/13/22 12:38 Dose: 0.5 mg Documented By: JUSTEN Vancomycin HCl 750 mg/ Sodium (Chloride) 265 mls @ 265 mls/hr IV Q12H [facility] Last Infusion: 04/14/22 10:20 Dose: 0 mls/hr Documented By: MADELIN Piperacillin Sod/Tazobactam (Sod 2.25 gm/ Sodium Chloride) 50 mls @ 100 mls/hr IV Q6H [facility] Last Infusion: 04/14/22 12:52 Dose: 0 mls/hr Documented By: MADELIN Insulin Human Lispro (Insulin Lispro 100 Unit/Ml 3 Ml Vial) 0 unit SUBCUT QIDACHS [facility]; Protocol Last Admin: 04/14/22 12:11 Dose: Not Given Documented By: MADELIN Non-Admin Reason: No Insulin Coverage Metoprolol Tartrate (Metoprolol Tartrate 25 Mg Tablet) 25 mg PO BID [facility]; Protocol Last Admin: 04/14/22 08:53 Dose: 25 mg Documented By: MADELIN Ondansetron HCl (Ondansetron Hcl 4 Mg/2 Ml Vial) 4 mg IVPUSH Q8H PRN PRN Reason: Nausea and Vomiting Oxycodone HCl (Oxycodone Hcl Immed Release 5 Mg Tablet) 10 mg PO Q6H PRN PRN Reason: Pain, Moderate (Pain Scale 4-6 Pharmacy Consult (Consult Rx Vancomycin Dosing) 1 each MISCELLANE DAILY PRN PRN Reason: Consult order Pharmacy Consult (Consult Rx Perform Med Rec) 1 each MISCELLANE ONCE PRN PRN Reason: Consult order Pharmacy Consult (Consult Rx Vancomycin Dosing) 1 each MISCELLANE DAILY PRN PRN Reason: Consult order Sodium Chloride (0.9 % Sodium Chloride Flush 3 Ml Syringe) 3 ml IVFLUSH QSHIFT [facility] Last Admin: 04/14/22 08:54 Dose: 3 ml Documented By: MADELIN Valsartan (Valsartan 160 Mg Tablet) 160 mg PO DAILY [facility]; Protocol Last Admin: 04/14/22 08:53 Dose: 160 mg Documented By: MADELIN Labs CBC & Chem 7: 04/14/22 05:49 04/14/22 05:49 Labs: Laboratory Results - last 24 hr 04/13/22 04/13/22 04/13/22 15:14 18:13 19:27 MCV MCH MCHC RDW Plt Count MPV Absolute Nucleated RBC Nucleated RBC % (auto) Anion Gap Estim Creat Clear Calc Estimated GFR POC Glucose 208 H 156 H Random Glucose Calcium Vancomycin Trough 14.7 04/14/22 04/14/22 04/14/22 05:49 05:49 07:39 MCV 85.4 MCH 27.9 MCHC 32.7 RDW 13.5 Plt Count 184 MPV 10.1 Absolute Nucleated RBC 0.000 Nucleated RBC % (auto) 0.0 Anion Gap 17 Estim Creat Clear Calc 105.1 Estimated GFR > 60 POC Glucose 117 H Random Glucose 122 H Calcium 9.0 Vancomycin Trough 04/14/22 11:56 MCV MCH MCHC RDW Plt Count MPV Absolute Nucleated RBC Nucleated RBC % (auto) Anion Gap Estim Creat Clear Calc Estimated GFR POC Glucose 133 H Random Glucose Calcium Vancomycin Trough Microbiology Microbiology Results: Microbiology 04/12/22 Unknown Gram Stain - Final Bone Routine Culture - Preliminary Coag negative Staphylococcus Enterococcus/Streptococcus sp Anaerobic Culture - Preliminary Culture in progress. 04/12/22 Unknown Gram Stain - Final Foot Left Routine Culture - Preliminary Coag negative Staphylococcus Enterococcus/Streptococcus sp Assessment and Plan (1) Osteomyelitis: Status: Acute Plan 56-year-old man admitted with diabetic foot ulcer that has been present since January of this year admitted for osteomyelitis left foot ulcer osteomyelitis with abscess related to diabetes continue vancomycin/Zosyn Seen by ID, continue current abx for now - will likely need 6w IV abx Blood cultures negative x 48 hours s/p I&D 04/12 - follow wound cultures - prelim growing coag-negative staphylococci is; Enterococcus/Streptococcus species - final sensitivities pending PICC line ordered for AM Chest pain chronic. no change from baseline Plan for outpatient cardiac cath next week seen by cardiology - intermediate risk for planned procedure - recommend to repeat echo, pending Diabetes mellitus shannon rodríguez, metformin on hold Sliding scale, ADA diet Hypertension bp elevated dose of valsartan increased Mood Continue home medications DVT prophylaxis Lovenox Attending Dr. Chinchilla Full code Pt requires continued inpt stay due to acute osteomyelitis requiring IV abx, need for PICC line Quality Stroke Does the patient have a stroke diagnosis?: No VTE Prior VTE?: No VTE Risk Level:: Medical - moderate - high VTE Device Contraindication: Treatment Not Indicated VTE Drug Contraindication: N/A - Med Ordered
[2022-04-14 16:05] LABS: Glucose, Whole Blood 139 mg/dL (60-115)
[2022-04-14] MEDS: Enoxaparin Sodium 40 MG/0.4 ML SYRINGE SUBCUT (17:03)
[2022-04-14] MEDS: oxyCODONE HCl Immed Release 5 MG TABLET 10 MG PO (17:14)
[2022-04-14 19:31] LABS: Vancomycin Trough 13.2 mcg/mL (10.0-20.0)
--- NOTE | 2022-04-14 19:38 | HE.PHANOTE ---
Vancomycin Dosing Addendum Level decreased to 13.2 today. Renal function is slowly improving each day. Since level decreased, will increase dose to 1000 mg Q12H. New expected AUC 443 with a trough of 13.2. Next trough to be drawn in 24 hours on 04/15 @ 1800. Ara Joy, ImeldaD
[2022-04-14 19:56] LABS: Glucose, Whole Blood 175 mg/dL (60-115)
[2022-04-14] MEDS: vancomycin HCL 1,000 MG in 0.9 % Sodium Chloride 250 ML 270 MG IV (21:32)
[2022-04-14] MEDS: Insulin Lispro 100 UNIT/ML 3 ML VIAL SUBCUT (21:32)
[2022-04-15] MEDS: oxyCODONE HCl Immed Release 5 MG TABLET 10 MG PO ×3 (00:17→21:57)
[2022-04-15] MEDS: 0.9 % Sodium Chloride Flush 3 ML SYRINGE IVFLUSH ×4 (00:19→23:12)
[2022-04-15] MEDS: Piperacillin Sodium/Tazobactam 2.25 GM in 0.9 % Sodium Chloride 50 ML IV ×3 (00:19→12:54)
[2022-04-15 07:24] LABS: Anion Gap 18 (12-20); Blood Urea Nitrogen 8 mg/dL (9-16); Calcium 8.9 mg/dL (8.4-10.2); Carbon Dioxide 25 mmol/L (22-29); Chloride 108 mmol/L (96-108); Creatinine Clr Calc Pharmacy 89.6; Estimated Glomerular Filt Rate > 60; Glucose Random 89 mg/dL (60-115); Potassium 3.9 mmol/L (3.3-5.1); Sodium 147 mmol/L (135-145)
[2022-04-15 07:35] LABS: Glucose, Whole Blood 89 mg/dL (60-115)
[2022-04-15 08:00] VITALS: BP 143/69; PULSE 69; RESP 15; TEMP 35.9; O2SAT 96
[2022-04-15] MEDS: vancomycin HCL 1,000 MG in 0.9 % Sodium Chloride 250 ML 270 MG IV ×2 (11:56→23:11)
[2022-04-15] MEDS: Valsartan 160 MG TABLET PO (11:57)
[2022-04-15] MEDS: ARIPiprazole 2 MG TABLET PO (11:57)
[2022-04-15] MEDS: buPROPion HCl XL 150 MG TAB.ER.24H PO (11:57)
[2022-04-15] MEDS: buPROPion HCl XL 300 MG TAB.ER.24H PO (11:57)
[2022-04-15] MEDS: Metoprolol Tartrate 25 MG TABLET PO ×2 (11:57→21:54)
--- NOTE | 2022-04-15 12:04 | HO.PICC ---
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 Following completion of [place] Protocol the skin and soft tissues were anesthetized with 1% Lidocaine plain. Using ultrasound guidance, right basilic vein access was obtained twice by Maliha Tsang RN, but unable to pass guidewire. Right brachial vein access was obtained twice by Shantal Wilhelm RN, unable to wire first time accessed. Over an 0.018 wire through peel-away sheath, a 4FR Single Lumen PASV PICC line was positioned. Catheter length is 40CM internal length, 0 CM external length, for a total trimmed length of 40CM. The procedure was performed in S272. Tip verification was performed by Negro Roberts with Sherlock 3CG. Tip located in SVC. Ultrasound was used to document vein patency and for needle entry. A formal ultrasound picture and cardiac rhythm strip was recorded. Vascular Community Engagement Leader has released the line for use and it is currently dressed with a StatLock, Tegaderm, and CHG disc. Verification has been performed for blood return and line patency. Arm Circumference: 27 CM Equipment: [employer] Power PICC Solo Catheter Type: 4FR Single Lumen PASV PICC Lot #: [id number]
[2022-04-15 12:13] LABS: Glucose, Whole Blood 114 mg/dL (60-115)
--- NOTE | 2022-04-15 12:49 | HO.PM.IMPN ---
Subjective Subjective Date of Service: 04/15/22 Interval History: Follow-up for left foot osteomyelitis s/p picc line Denies fever, chills Review of Systems Review of Systems: Yes all other systems are reviewed and are negative Constitutional Constitutional: Denies chills and Denies fever(s) Cardiovascular Cardiovascular: Denies chest pain, Denies palpitations and Denies dyspnea Respiratory Respiratory: Denies cough and Denies dyspnea Endocrine Endocrine: Denies palpitations Physical Exam Vital Signs: Vital Signs: Last Vital Signs Temp 96.7 F L 04/15/22 08:00 Pulse 69 04/15/22 08:00 Resp 15 04/15/22 08:00 BP 143/69 H 04/15/22 08:00 Pulse Ox 96 04/15/22 08:00 O2 Del Method 04/15/22 08:00 O2 Flow Rate 0 04/12/22 15:04 BMI result Body Mass Index 25.4 Appearing in no acute distress lung sounds are clear to auscultation heart regular rate rhythm, clear S1, S2 positive bowel sounds, abdomen is soft, nontender neuro patient is alert x3, no focal deficits Objective Data Active Medications Acetaminophen (Acetaminophen 325 Mg Tablet) 650 mg PO Q6H PRN PRN Reason: Pain, Mild (Pain Scale 1-3) Aripiprazole (Aripiprazole 2 Mg Tablet) 2 mg PO DAILY [facility] Last Admin: 04/15/22 11:57 Dose: 2 mg Documented By: ANGELA Comments: given late - pt was off floor for procedure Bupropion HCl (Bupropion Hcl Xl 150 Mg Tab.Er.24h) 150 mg PO DAILY [facility] Last Admin: 04/15/22 11:57 Dose: 150 mg Documented By: ANGELA Comments: given late - pt was off floor for procedure Bupropion HCl (Bupropion Hcl Xl 300 Mg Tab.Er.24h) 300 mg PO DAILY [facility] Last Admin: 04/15/22 11:57 Dose: 300 mg Documented By: ANGELA Comments: given late - pt was off floor for procedure Dextrose (Dextrose 50 % 25 Gm/50 Ml Syringe) 25 gm IVPUSH Q15M PRN; Protocol PRN Reason: per Hypoglycemia Standing Ord. Enoxaparin Sodium (Enoxaparin Sodium 40 Mg/0.4 Ml Syringe) 40 mg SUBCUT Q24H [facility] Last Admin: 04/14/22 17:03 Dose: 40 mg Documented By: MADELIN Glucose (Glucose Gel 15 Gm Gel..Gram.) 15 gm PO Q15M PRN; Protocol PRN Reason: per Hypoglycemia Standing Ord. Hydromorphone HCl (Hydromorphone Hcl 0.5 Mg/0.5 Ml Syringe) 0.5 mg IVPUSH Q4H PRN; Protocol PRN Reason: Pain, Severe (Pain Scale 7-10) Last Admin: 04/13/22 12:38 Dose: 0.5 mg Documented By: JUSTEN Piperacillin Sod/Tazobactam (Sod 2.25 gm/ Sodium Chloride) 50 mls @ 100 mls/hr IV Q6H [facility] Last Infusion: 04/15/22 07:41 Dose: 100 mls/hr Documented By: FREDDY Vancomycin HCl 1,000 mg/ (Sodium Chloride) 270 mls @ 270 mls/hr IV Q12H [facility] Last Admin: 04/15/22 11:56 Dose: 270 mls/hr Documented By: ANGELA Comments: given late - pt was off floor for procedure Insulin Human Lispro (Insulin Lispro 100 Unit/Ml 3 Ml Vial) 0 unit SUBCUT QIDACHS [facility]; Protocol Last Admin: 04/15/22 12:15 Dose: Not Given Documented By: ANGELA Non-Admin Reason: No Insulin Coverage Metoprolol Tartrate (Metoprolol Tartrate 25 Mg Tablet) 25 mg PO BID [facility]; Protocol Last Admin: 04/15/22 11:57 Dose: 25 mg Documented By: ANGELA Comments: given late - pt was off floor for procedure Ondansetron HCl (Ondansetron Hcl 4 Mg/2 Ml Vial) 4 mg IVPUSH Q8H PRN PRN Reason: Nausea and Vomiting Oxycodone HCl (Oxycodone Hcl Immed Release 5 Mg Tablet) 10 mg PO Q6H PRN PRN Reason: Pain, Moderate (Pain Scale 4-6 Last Admin: 04/15/22 00:17 Dose: 10 mg Documented By: FREDDY Pharmacy Consult (Consult Rx Vancomycin Dosing) 1 each MISCELLANE DAILY PRN PRN Reason: Consult order Pharmacy Consult (Consult Rx Perform Med Rec) 1 each MISCELLANE ONCE PRN PRN Reason: Consult order Pharmacy Consult (Consult Rx Vancomycin Dosing) 1 each MISCELLANE DAILY PRN PRN Reason: Consult order Sodium Chloride (0.9 % Sodium Chloride Flush 3 Ml Syringe) 3 ml IVFLUSH QSHIFT [facility] Last Admin: 04/15/22 11:58 Dose: 3 ml Documented By: ANGELA Valsartan (Valsartan 160 Mg Tablet) 160 mg PO DAILY [facility]; Protocol Last Admin: 04/15/22 11:57 Dose: 160 mg Documented By: ANGELA Comments: given late - pt was off floor for procedure Labs CBC & Chem 7: 04/14/22 05:49 04/15/22 05:27 Labs: Laboratory Results - last 24 hr 04/14/22 04/14/22 04/14/22 15:45 18:55 19:20 Anion Gap Estim Creat Clear Calc Estimated GFR POC Glucose 139 H 175 H Random Glucose Calcium Vancomycin Trough 13.2 04/15/22 04/15/22 04/15/22 05:27 07:23 12:10 Anion Gap 18 Estim Creat Clear Calc 89.6 Estimated GFR > 60 POC Glucose 89 114 Random Glucose 89 Calcium 8.9 Vancomycin Trough Microbiology Microbiology Results: Microbiology 04/12/22 Unknown Gram Stain - Final Bone Routine Culture - Preliminary Coag negative Staphylococcus Enterococcus faecalis Anaerobic Culture - Preliminary Culture in progress. 04/10/22 06:44 Blood Culture - Final Blood - Venous No growth after 5 days. 04/10/22 06:44 Blood Culture - Final Blood - Venous No growth after 5 days. 04/12/22 Unknown Gram Stain - Final Foot Left Routine Culture - Preliminary Coag negative Staphylococcus Enterococcus/Streptococcus sp Assessment and Plan (1) Osteomyelitis: Status: Acute Plan 56-year-old man admitted with diabetic foot ulcer that has been present since January of this year admitted for osteomyelitis left foot ulcer osteomyelitis with abscess related to diabetes continue vancomycin Blood cultures negative x 48 hours s/p I&D 04/12 - follow wound cultures - prelim growing coag-negative staphylococci is; Enterococcus/Streptococcus species - final sensitivities pending PICC line placed, plan for total 6 weeks of IV vancomycin Chest pain chronic. no change from baseline Plan for outpatient cardiac cath next week seen by cardiology - intermediate risk for planned procedure - recommend to repeat echo, pending Diabetes mellitus januvia, trulicity, metformin on hold Sliding scale, ADA diet Hypertension stable blood pressure dose of valsartan increased Mood Continue home medications DVT prophylaxis Lovenox Attending Dr. Eller Full code Disposition Likely plan for discharge tomorrow with IV vancomycin Pt requires continued inpt stay due to acute osteomyelitis requiring IV abx, need for PICC line Quality Stroke Does the patient have a stroke diagnosis?: No VTE Prior VTE?: No VTE Risk Level:: Medical - moderate - high VTE Device Contraindication: Treatment Not Indicated VTE Drug Contraindication: N/A - Med Ordered
[2022-04-15 13:57] VITALS: BP 174/90; PULSE 72; RESP 16; TEMP 36.4; O2SAT 97
--- NOTE | 2022-04-15 14:29 | MHC.CM.PN ---
PICC LINE PLACED, PER HOSPITALIST PT WILL D/C TOMORROW AM, [facility] TO DELIVER IV VANCO TONIGHT BY 8PM AND PT WILL D/C AFTER AM DOSE W/[facility] SOC TOMORROW AFTERNOON. CM WILL CONT TO FOLLOW D/C NEEDS.
[2022-04-15 15:15] VITALS: BP 160/81; PULSE 69; RESP 18; TEMP 36.2; O2SAT 96
[2022-04-15 15:35] LABS: Glucose, Whole Blood 152 mg/dL (60-115)
[2022-04-15 16:00] VITALS: BP 160/81; PULSE 69; O2SAT 96
[2022-04-15] MEDS: Insulin Lispro 100 UNIT/ML 3 ML VIAL SUBCUT (17:13)
[2022-04-15] MEDS: Enoxaparin Sodium 40 MG/0.4 ML SYRINGE SUBCUT (17:13)
[2022-04-15] MEDS: Heparin Sodium,Porcine Flush 50 UNITS, 0.9 % Sodium Chloride Flush 5 ML IVFLUSH ×2 (17:14→23:12)
[2022-04-15 18:40] LABS: Vancomycin Trough 19.2 mcg/mL (10.0-20.0)
--- NOTE | 2022-04-15 18:58 | HE.PHANOTE ---
RE BEVERLY Patient trough jumped to 19.2 today, but SCR is still stable. The am dose was given 4 hours late, meaning this level was drawn 6 hours after the dose. For this reason, I will keep the dose the same, but I will draw a new level after 2 doses. Thanks Paul
[2022-04-15 19:24] VITALS: BP 154/85; PULSE 71; RESP 18; TEMP 36.9; O2SAT 94
[2022-04-15 19:58] LABS: Glucose, Whole Blood 147 mg/dL (60-115)
[2022-04-15 23:43] VITALS: BP 148/50; PULSE 69; RESP 16; TEMP 36.3; O2SAT 94
[2022-04-16 04:00] VITALS: BP 148/40; PULSE 70; RESP 17; TEMP 36.1; O2SAT 95
--- NOTE | 2022-04-16 07:00 | CA_ITS ---
Transthoracic Echocardiogram Patient (Last, First, Middle): Juan Ramon Xie L Gender: Male Date of : 1965 Age: 56 Procedure Date: 04/16/2022 Procedure Type: Transthoracic Echocardiogram Location: S3E Height: 172.72 cm Weight: 75.75 kg BSA: 1.89 m2 Heart Rate: bpm BP: 177 / 90 mmHg Fellmongery Worker: QIAN Lafelur MD: Clifton Castro MD Assembly Operator: Vu Lama MD Symptoms: ?cardiomyopathy Study Quality: Fair ECG Rhythm: Sinus Conclusions: - Low normal LV ejection fraction with LVEF of 50-55% with regional wall motion abnormality in that could suggest underlying coronary artery disease Findings Procedure Information Contrast agent, definity, is being given per protocol without apparent complications. Left Ventricle Normal left ventricular cavity size. There is normal left ventricular wall thickness. The left ventricular systolic function is low normal. The visually estimated ejection fraction is between 50-55%. Spectral Doppler is indicative of an impaired relaxation filling pattern. Wall Motion Rest Echo Findings The apex, apical anterior, apical inferior, apical septum, mid inferoseptal, and mid anteroseptal segments are hypokinetic. All other scored wall segments showed normal motion. Pericardium/Pleural There is no evidence of pericardial effusion. Prior Study Comparison Changes noted compared to prior study. mild reduction LV systolic function with regional wall motion abnormality Measurements 2D Linear Measurements IVSd: 1.15 0.6-0.9/0.6-1.0 cm LVIDd: 3.49 3.9-5.3/4.2-5.9 cm LVIDd Index: 1.85 2.4-3.2/2.2-3.1 cm/m2 LVIDs: 2.91 2.0-3.6 cm LVPWd: 1.06 0.7-1.1 cm Ao Root: 3.20 2.1-3.5 cm LA Diam: 3.20 2.7-3.8/3.0-4.0 cm LAIDs Index: 1.69 1.5-2.3 cm/m2 LV Mass: 148.39 67-162/88-224 g LV Mass Index: 78.51 43-95/49-115 g/m2 LVOT Diam: 1.90 3.0+(-)1.3 cm 2D Systolic Function EF 4C: 56.90 >55% EF 2C: 61.50 >55% Mitral Valve MV Pk E: 0.81 MV PK A: 0.94 MV Decel Time: 280.00 E/A: 0.90 E'Lateral: 7.62 E'Medial: 7.40 E/E' Med: 11.00 E/E' Lat: 10.70 PHT: 82.00 MVA PHT: 2.68 Decel [place]: 2.91 Aortic Valve AoV Pk Gonzalo: 1.56 AoV Mn Gonzalo: 1.08 AoV VTI: 0.28 AoV Pk Grad: 10.00 Aov Mn Grad: 5.00 JUAN LUIS Cont.VTI: 2.27 LVOT LVOT Pk Gonzalo: 1.17 LVOT Mn [place]: 0.83 LVOT VTI: 0.23 LVOT Pk Grad: 5.00 LVOT Mn Grad: 3.00 LVOT Diam: 1.90 LVOT Area: 2.84 Diastolic Function MV Pk E: 0.81 MV Pk A: 0.94 E/A: 0.90 E'Medial: 7.40 E/E' Med: 11.00 E' Laterial: 7.62 E/E' Lat: 10.70 Right Ventricle TAPSE (mm): 26.00 TVS' Gonzalo: 12.00 Tricuspid Valve TR Pk Gonzalo: 2.00 TR Pk Grad: 16.00 RA Press: 3.00 RVSP: 19.00 Great Vessels Aorta Ao Root-2D: 3.20 2.0-3.7 cm Ao Asc: 2.70 2.1-3.4 cm Pulmonary Valve PV Pk Gonzalo: 0.58 Peak PV Grad: 1.00 Updated in Other Vendor System with Status of Final Vu Lama MD electronically signed on 04/16/2022 12:04:34 PM with status of Final
[2022-04-16 07:05] LABS: Glucose, Whole Blood 163 mg/dL (60-115)
[2022-04-16 07:09] VITALS: BP 153/86; PULSE 76; RESP 18; TEMP 35.7; O2SAT 98
[2022-04-16] MEDS: Heparin Sodium,Porcine Flush 50 UNITS, 0.9 % Sodium Chloride Flush 5 ML IVFLUSH (07:50)
[2022-04-16] MEDS: Insulin Lispro 100 UNIT/ML 3 ML VIAL SUBCUT (07:50)
[2022-04-16] MEDS: 0.9 % Sodium Chloride Flush 3 ML SYRINGE IVFLUSH (07:51)
--- NOTE | 2022-04-16 07:55 | P.PNGS_ITS ---
Subjective Subjective Date of Service: 04/16/22 Interval history: Patient reports pain in the left foot. Physical Exam Vital Signs: Vital Signs: Last Vital Signs Temp 96.3 F L 04/16/22 07:09 Pulse 76 04/16/22 07:09 Resp 18 04/16/22 07:09 BP 153/86 H 04/16/22 07:09 Pulse Ox 98 04/16/22 07:09 O2 Del Method 04/16/22 07:09 O2 Flow Rate 0 04/12/22 15:04 BMI result Body Mass Index 25.4 Const: General: no acute distress Nutritional Appearance: well nourished Orientation/consciousness: patient oriented x3 Limitations: no limitations Resp: Effort & Inspection: normal respiratory effort Neuro: General: patient oriented x3 Extrem: Other: Dressings changed to left foot. No erythema identified. Slight swelling noted at surgery site. No fluctuance to palpation. No residual open wound is identified. No discharge could be expressed. Protective dressing applied including fluffed gauze and Kerlix. Objective Data Active Medications Acetaminophen (Acetaminophen 325 Mg Tablet) 650 mg PO Q6H PRN PRN Reason: Pain, Mild (Pain Scale 1-3) Aripiprazole (Aripiprazole 2 Mg Tablet) 2 mg PO DAILY [facility] Last Admin: 04/15/22 11:57 Dose: 2 mg Documented By: ANGELA Comments: given late - pt was off floor for procedure Bupropion HCl (Bupropion Hcl Xl 150 Mg Tab.Er.24h) 150 mg PO DAILY [facility] Last Admin: 04/15/22 11:57 Dose: 150 mg Documented By: ANGELA Comments: given late - pt was off floor for procedure Bupropion HCl (Bupropion Hcl Xl 300 Mg Tab.Er.24h) 300 mg PO DAILY [facility] Last Admin: 04/15/22 11:57 Dose: 300 mg Documented By: ANGELA Comments: given late - pt was off floor for procedure Heparin Sodium (Porcine) 50 (units/ Sodium Chloride 5 ml) 0 units IVFLUSH QSHIFT [facility] Last Admin: 04/16/22 07:50 Dose: 50 unit Documented By: ANGELA Dextrose (Dextrose 50 % 25 Gm/50 Ml Syringe) 25 gm IVPUSH Q15M PRN; Protocol PRN Reason: per Hypoglycemia Standing Ord. Enoxaparin Sodium (Enoxaparin Sodium 40 Mg/0.4 Ml Syringe) 40 mg SUBCUT Q24H [facility] Last Admin: 04/15/22 17:13 Dose: 40 mg Documented By: ANGELA Glucose (Glucose Gel 15 Gm Gel..Gram.) 15 gm PO Q15M PRN; Protocol PRN Reason: per Hypoglycemia Standing Ord. Hydromorphone HCl (Hydromorphone Hcl 0.5 Mg/0.5 Ml Syringe) 0.5 mg IVPUSH Q4H PRN; Protocol PRN Reason: Pain, Severe (Pain Scale 7-10) Last Admin: 04/13/22 12:38 Dose: 0.5 mg Documented By: JUSTEN Vancomycin HCl 1,000 mg/ (Sodium Chloride) 270 mls @ 270 mls/hr IV Q12H [facility] Last Infusion: 04/16/22 00:38 Dose: 0 mls/hr Documented By: TONIA Insulin Human Lispro (Insulin Lispro 100 Unit/Ml 3 Ml Vial) 0 unit SUBCUT QIDACHS [facility]; Protocol Last Admin: 04/16/22 07:50 Dose: 2 unit Documented By: ANGELA Metoprolol Tartrate (Metoprolol Tartrate 25 Mg Tablet) 25 mg PO BID [facility]; Protocol Last Admin: 04/15/22 21:54 Dose: 25 mg Documented By: TONIA Ondansetron HCl (Ondansetron Hcl 4 Mg/2 Ml Vial) 4 mg IVPUSH Q8H PRN PRN Reason: Nausea and Vomiting Oxycodone HCl (Oxycodone Hcl Immed Release 5 Mg Tablet) 10 mg PO Q6H PRN PRN Reason: Pain, Moderate (Pain Scale 4-6 Last Admin: 04/15/22 21:57 Dose: 10 mg Documented By: TONIA Pharmacy Consult (Consult Rx Vancomycin Dosing) 1 each MISCELLANE DAILY PRN PRN Reason: Consult order Pharmacy Consult (Consult Rx Perform Med Rec) 1 each MISCELLANE ONCE PRN PRN Reason: Consult order Pharmacy Consult (Consult Rx Vancomycin Dosing) 1 each MISCELLANE DAILY PRN PRN Reason: Consult order Sodium Chloride (0.9 % Sodium Chloride Flush 3 Ml Syringe) 3 ml IVFLUSH QSHIFT [facility] Last Admin: 04/16/22 07:51 Dose: 3 ml Documented By: ANGELA Valsartan (Valsartan 160 Mg Tablet) 160 mg PO DAILY [facility]; Protocol Last Admin: 04/15/22 11:57 Dose: 160 mg Documented By: ANGELA Comments: given late - pt was off floor for procedure Labs CBC & Chem 7: 04/14/22 05:49 04/15/22 05:27 Labs: Laboratory Results - last 24 hr 04/15/22 04/15/22 04/15/22 12:10 15:18 18:00 POC Glucose 114 152 H Vancomycin Trough 19.2 04/15/22 04/16/22 19:27 07:01 POC Glucose 147 H 163 H Vancomycin Trough Microbiology Microbiology Results: Microbiology 04/12/22 Unknown Gram Stain - Final Bone Routine Culture - Preliminary Coag negative Staphylococcus Enterococcus faecalis Anaerobic Culture - Preliminary Culture in progress. 04/10/22 06:44 Blood Culture - Final Blood - Venous No growth after 5 days. 04/10/22 06:44 Blood Culture - Final Blood - Venous No growth after 5 days. 04/12/22 Unknown Gram Stain - Final Foot Left Routine Culture - Preliminary Coag negative Staphylococcus Enterococcus/Streptococcus sp Procedures Date of Service Date of Service: 04/16/22 Progress Note: A&P Assessment and plan (1) Osteomyelitis: Status: Acute Plan Status post incision and drainage, bone culture. Microbiology reveals Entero coccus faecalis. Wounds are clean and intact without any further discharge. WBC is normal as well. Patient to be discharged today with home IV therapy. He should follow-up with wound care. Time Spent With Patient Time: Total time spent is greater than 50% in coordination of care (as documented) at patient's floor/unit and/or counseling patient: Quality Stroke Does the patient have a stroke diagnosis?: No VTE Prior VTE?: No VTE Risk Level:: Medical - moderate - high VTE Device Contraindication: Treatment Not Indicated VTE Drug Contraindication: N/A - Med Ordered
--- NOTE | 2022-04-16 08:11 | PM.DS ---
DS: Providers Provider Date of Service: 04/16/22 Date of admission: 04/10/22 15:36 Primary care physician: Manpreet Tabares MD Consults: 04/10/22 15:36 Consult to General Surgery Routine Consulting Provider: Olivier Castillo Reason for consultation: Foot abscess, diabetic wound Has provider been notified: No 04/10/22 15:38 Consult to Infectious Diseases Routine Consulting Provider: July Bunn Reason for consultation: Diabetic foot wound, osteomyelitis Has provider been notified: No 04/12/22 11:18 Consult to Cardiology Routine Consulting Provider: Clifton Castro Reason for consultation: preop eval, chronic chest pain, cath planned Has provider been notified: No Attending physician on discharge: Carter Eller Discharging clinician: Ana Vale DS: Diagnosis Discharge Diagnosis (1) Osteomyelitis: Status: Acute DS: Summary Hospital Course Hospital Course: 56-year-old man presented to the ER with complaints of worsening pain to his left foot.? He reports that he discussed this with the wound clinic and told him he had more pain and they told him to come to the ER for further evaluation.? Reports he has had this diabetic foot wound to his left foot since approximately January.? He has had some episodes with discharge and it heals up.? He has been seen by the wound clinic for wound care.? He has been on and off antibiotics.? More recently it appears that the wound has been pretty dry but now more painful.? In the ED, MRI showed soft tissue ulceration to plantar and lateral aspect of the 5th metatarsal base with possible subcutaneous abscess with adjacent cellulitis and findings consistent with acute osteomyelitis in the base of the 5th metatarsal.? He was given a dose of vancomycin and Zosyn.? General surgery was consulted and is aware the patient will be admitted.? He was not notice have any fever, chills, nausea, vomiting, diarrhea.? Labs all within acceptable limits.? He will be admitted for further management and treatment of diabetic foot wound with acute osteomyelitis. left foot ulcer osteomyelitis with abscess related to diabetes continue vancomycin total 6 weeks 05/22/22 send date, remove PICC Line after last dose Blood cultures negative s/p I&D 04/12 -? follow wound cultures - prelim growing? coag-negative staphylococci is; Enterococcus/Streptococcus species - final? sensitivities pending Chest pain chronic. no change from baseline Plan for outpatient cardiac cath Diabetes mellitus continue home medications Hypertension stable blood pressure continue home medications Mood Continue home medications Time Spent with Patient Time attestation: Total time spent providing and/or coordinating discharge services: Discharge coordination time: Greater than 30 minutes Quality: Safe Use of Opioids Does Pt have an Active Cancer Diagnosis on the Problem List?: No Quality: Stroke Does the patient have a stroke diagnosis?: No Physical Exam Vital Signs: Vital Signs: Last Vital Signs Temp 96.3 F L 04/16/22 07:09 Pulse 76 04/16/22 07:09 Resp 18 04/16/22 07:09 BP 153/86 H 04/16/22 07:09 Pulse Ox 98 04/16/22 07:09 O2 Del Method 04/16/22 07:09 O2 Flow Rate 0 04/12/22 15:04 BMI result Body Mass Index 25.4 Appearing in no acute distress head is normocephalic atraumatic eyes pupils are PERRLA sclera is anicteric mouth throat mucous membranes are intact and moist neck is supple no lymphadenopathy, no JVD noted lung sounds are clear to auscultation heart regular rate rhythm, clear S1, S2 positive bowel sounds, abdomen is soft, nontender neuro patient is alert x3, no focal deficits DS: Data Data Completed and Pending Labs on day of discharge: Laboratory Results - last 24 hr 04/15/22 04/15/22 04/15/22 12:10 15:18 18:00 POC Glucose 114 152 H Vancomycin Trough 19.2 04/15/22 04/16/22 19:27 07:01 POC Glucose 147 H 163 H Vancomycin Trough Preliminary micro results at discharge 04/12/22 Unknown Routine Culture - Preliminary Bone Coag negative Staphylococcus Enterococcus faecalis Anaerobic Culture - Preliminary Culture in progress. 04/12/22 Unknown Routine Culture - Preliminary Foot Left Coag negative Staphylococcus Enterococcus/Streptococcus sp Discharge Plan Discharge Anticipated Discharge Date/Time: 04/16/22 07:56 Patient Disposition: Home Health Service Discharge Diagnosis: Left diabetic foot ulcer with abscess and Osteomyelitis Chronic chest pain Referrals: [facility] [Other] - 1 Day ([facility] WILL DELIVER YOUR IV ANTIBIOTICS TO YOUR HOME, FOR ANY ISSUES OR IF YOU NEED SUPPORT OVER PHONE. ) [facility] [Outside] - 1 Day ([facility]ARE HOME FOR IV ANTIBIOTICS, START OF CARE WILL BE TOMORROW MORNING AND A NURSE WILL REACH OUT TO YOU. ) Manpreet Tabares MD [Primary Care Provider] - 04/19/22 3:35 pm (You have appointment scheduled with PCP, call office if you need to reschedule.) Discharge Medications: New vancomycin in 0.9 % sodium chl 1 gram/250 mL solution 1 g IV Q12H Qty: 3000 0RF Rx Instructions: Total 6 weeks from 04/10/22 Continued metformin 500 mg tablet extended release 24 hr 2 tab PO BID metoprolol tartrate 25 mg Tablet 25 mg PO BID Qty: 60 0RF Protocol: Hold for SBP/HR < HOLD for SBP < : 90 HOLD for HR < : 60 valsartan 80 mg tablet 1 tab PO DAILY Qty: 30 0RF bupropion HCl 300 mg tablet extended release 24 hr 1 tab PO DAILY Qty: 30 0RF bupropion HCl 150 mg tablet extended release 24 hr 1 tab PO DAILY Qty: 30 0RF Januvia 50 mg tablet 50 mg PO DAILY Qty: 30 0RF aripiprazole [Abilify] 2 mg tablet 2 mg PO DAILY Qty: 30 0RF Trulicity 1.5 mg/0.5 mL pen injector 1.5 mg subcut FR@0900 gentamicin 0.1 % ointment 1 appl topical QID Qty: 30 1RF Discontinued doxycycline monohydrate 100 mg tablet 100 mg PO BID 10 Days Qty: 20 0RF cephalexin 500 mg capsule 500 mg PO Q6H 10 Days Qty: 40 0RF Discharge Orders: Discharge Order (Routine); Ordered 04/16/22 Ordered By: Ana Vale Diet: Advance to usual diet Activity on Discharge: As tolerated Stand Alone Forms: Patient Portal Discharge page Care Plan Goals: Take IV antibiotics as prescribed Health Concerns: Left diabetic foot ulcer with abscess and Osteomyelitis Chronic chest pain Plan of Treatment: You will be on a total of 6 weeks if IV vancomycin for osteomyelitis. The visiting nurse can remove your PICC line after your last dose. Assessment: See discharge summary
[2022-04-16 09:03] LABS: Creatinine Clr Calc Pharmacy 83.8; Estimated Glomerular Filt Rate > 60
[2022-04-16] MEDS: Valsartan 160 MG TABLET PO (09:57)
[2022-04-16] MEDS: vancomycin HCL 1,000 MG in 0.9 % Sodium Chloride 250 ML 270 MG IV (09:57)
[2022-04-16] MEDS: Metoprolol Tartrate 25 MG TABLET PO (09:57)
[2022-04-16] MEDS: buPROPion HCl XL 300 MG TAB.ER.24H PO (09:57)
[2022-04-16] MEDS: buPROPion HCl XL 150 MG TAB.ER.24H PO (09:57)
[2022-04-16] MEDS: oxyCODONE HCl Immed Release 5 MG TABLET 10 MG PO (09:57)
[2022-04-16] MEDS: ARIPiprazole 2 MG TABLET PO (09:57)
--- NOTE | 2022-04-16 11:24 | MHC.CM.PN ---
PT MEDICALLY CLEARED FOR DC, HOME WITH [facility] AND [facility], SAME DAY SOC FOR IV RX. [facility] UPDATED ON DC. [facility] WILL TRANSPORT HOME.
--- NOTE | 2022-04-23 13:35 | P.F2F_ITS ---
Service Date Service Date: 04/16/22 Encounter Date of encounter: 04/16/22 Reasons for Services Signs and symptoms assessed: osteomyelitis Reason for intermediate: wound care Homebound: Leaving the home is medically contraindicated at this time without the asist of a device and/or another person due th the listed conditions above and below. Reason homebound: unsteady gait / fall risk Certification: Based on the above findings, I certify that this patient is confined to the home and needs intermittent intermediate care, physical therapy and/or speech therapy, or continues to need occupational therapy. The patient is under my care, and I have initiated the establishment of the plan of care. The patient will be followed by a physician who will periodically review the plan of care.
== END 2022-04-16 11:24 | disposition home health service (06) | DRG 317 ==
LOC: HO.ED 04-10 15:14 → HO.EDOVER 04-10 15:48 → HO.S3 04-11 07:30
PROVIDERS: Internal Medicine; Physician Assistant; Physician Assistant Medical; Radiology Diagnostic Radiology; Surgery; Admitting Provider Nurse Practitioner Acute Care; Emergency Provider Emergency Medicine; PCP Family Medicine; Visit Provider Nurse Practitioner Acute Care
PROC: 0J9R0ZZ Drainage of Left Foot Subcutaneous Tissue and Fascia, Open Approach (ICD-10-PCS; principal; 2022-04-12 13:00)
DX: E11.69 Type 2 diabetes mellitus with other specified complication (principal); M86.172 Other acute osteomyelitis, left ankle and foot; E11.628 Type 2 diabetes mellitus with other skin complications; I44.7 Left bundle-branch block, unspecified; B95.2 Enterococcus as the cause of diseases classified elsewhere; E78.5 Hyperlipidemia, unspecified; F39 Unspecified mood [affective] disorder; L02.612 Cutaneous abscess of left foot; Z20.822 Contact with and (suspected) exposure to COVID-19; Z88.5 Allergy status to narcotic agent; Z79.84 Long term (current) use of oral hypoglycemic drugs; Z79.899 Other long term (current) drug therapy
CPT/HCPCS: 36415; 36573; 73720; 80048; 80202; 82565; 82947; 83605; 84484; 85025; 85027; 87040; 87070; 87073; 87077; 87186; 87205; 87635; 90686; 93005; 93306; 96365; 96366; 96367; 96375; 97161; 99285; A9585; C1751; J0690; J1170; J1642; J1650; J2250; J2405; J2543; J2795; J3010; J3370; Q9957

== ENCOUNTER 2022-04-21 15:59 | Emergency (ER) | payer BC, SELFPAY ==
[2022-04-21 16:04] VITALS: BP 184/93; PULSE 89; RESP 18; TEMP 36.3; O2SAT 100; BMI 25.4
--- NOTE | 2022-04-21 18:49 | ECG_ITS ---
Test Reason : CP Blood Pressure : / mmHG Vent. Rate : 093 BPM Atrial Rate : 093 BPM P-R Int : 140 ms QRS Dur : 134 ms QT Int : 410 ms P-R-T Axes : 027 022 123 degrees QTc Int : 509 ms Normal sinus rhythm Incomplete left bundle branch block Left ventricular hypertrophy with QRS widening and repolarization abnormality ( Romhilt-Galvan ) Nonspecific T wave abnormality Inferior leads Lateral leads Abnormal ECG When compared with ECG of 10-APR-2022 01:45, Left bundle branch block is no longer Present Referred By: Generic ED Physician Electronically Signed By:CAMI FISCHER MD
[2022-04-21 19:54] LABS: MANUAL DIFF FLAG NO
[2022-04-21 19:55] LABS: Basophils Absolute Auto 0.1 X10*3/uL (0.0-0.2); Basophils Percent Auto 0.9 % (0-2); Eosinophils Absolute Auto 0.3 X10*3/uL (0.0-0.4); Eosinophils Percent Auto 4.4 % (0-4); Hematocrit 45.2 % (42.0-52.0); Hemoglobin 14.7 g/dl (14.0-18.0); Imm Gran Abs Auto 0.03 X10*3/uL (0.00-0.03); Imm Gran Pct Auto 0.4 % (0.0-0.4); Lymphocytes Absolute Auto 1.8 X10*3/uL (1.2-4.9); Lymphocytes Percent Auto 25.4 % (20-40); Mean Corpuscular HGB Conc 32.5 g/dl (31.0-36.0); Mean Corpuscular Hemoglobin 27.9 pg (27.0-33.0); Mean Corpuscular Volume 85.8 fL (80.0-98.0); Mean Platelet Volume 9.8 fL (9.4-12.4); Monocytes Absolute Auto 0.7 X10*3/uL (0.1-1.2); Monocytes Percent Auto 9.7 % (2-11); Neutrophils Absolute Auto 4.2 x10*3/uL (2.0-8.3); Neutrophils Percent Auto 59.2 % (45-73); Platelet Count 257 X10*3/uL (160-400); Red Blood Count 5.27 X10*6/uL (4.60-5.80); Red Cell Distribution Width 14.4 % (11.0-16.0)
[2022-04-21 20:09] LABS: Anion Gap 19 (12-20); Blood Urea Nitrogen 17 mg/dL (9-16); Calcium 9.6 mg/dL (8.4-10.2); Carbon Dioxide 22 mmol/L (22-29); Chloride 107 mmol/L (96-108); Estimated Glomerular Filt Rate > 60; Glucose Random 151 mg/dL (60-115); Sodium 144 mmol/L (135-145)
[2022-04-21 20:14] LABS: Troponin-I High Sensitivity < 3.5 ng/L (<3.5-35.0)
[2022-04-21 21:47] VITALS: BP 153/80; PULSE 90; RESP 15; TEMP 36.7; O2SAT 98
--- NOTE | 2022-04-21 21:52 | ED_ITS ---
HPI - General Adult General Chief complaint: Headache Stated complaint: High blood pressure/Bone infection Time Seen by Provider: 04/21/22 21:47 Source: patient Mode of arrival: ambulatory Limitations: no limitations History of Present Illness HPI narrative: 56-year-old male presents for evaluation for elevated blood pressure. Patient is being treated for osteomyelitis of the foot, has a PICC line to the right u pper extremity, and has a visiting nurse that helps with his infusions of vancomycin twice a day. States that after the dressing change, patient was in pain, and the nurse took his blood pressure noting that it was high. He does state to have a headache, and the nurse was concerned and had him follow-up with his primary care physician who referred him to the emergency department. Patient states to have pain from his foot, is concerned about his IV antibiotic, and has anxiety about possibly missing his dose. Patient does take blood pressure medications on a regular basis, and is usually medication compliant. Onset (ago): day(s) Severity: mild Quality: aching Pain Consistency: constant (Headache) Relieving factors: none Exacerbating factors: other (Stress) Associated symptoms: denies other symptoms Related Data Home Medications Medication Instructions Recorded Confirmed metformin 500 mg tablet,extended 2 tab PO BID 12/08/21 04/10/22 release 24 hr dulaglutide 1.5 mg/0.5 mL 1.5 mg subcut FR@0900 04/10/22 04/10/22 subcutaneous pen injector (Trulicity) Previous Rx's Medication Instructions Recorded aripiprazole 2 mg tablet (Abilify) 2 mg PO DAILY #30 tabs 03/14/22 bupropion HCl 150 mg 24 hr tablet, 1 tab PO DAILY #30 tabs 03/14/22 extended release bupropion HCl 300 mg 24 hr tablet, 1 tab PO DAILY #30 tabs 03/14/22 extended release metoprolol tartrate 25 mg tablet 25 mg PO BID #60 tabs 03/14/22 sitagliptin 50 mg tablet (Januvia) 50 mg PO DAILY #30 tabs 03/14/22 valsartan 80 mg tablet 1 tab PO DAILY #30 tabs 03/14/22 gentamicin 0.1 % topical ointment 1 appl topical QID #30 grams 03/28/22 vancomycin 1 gram/250 mL in 0.9 % 1 g (250 mL) IV Q12H #3,000 mL 04/16/22 sodium chloride intravenous Allergies Allergy/AdvReac Type Severity Reaction Status Date / Time codeine [CODEINE] Allergy Unknown delayed Verified 02/07/22 09:46 responses 02/24/17 Review of Systems Review of Systems: Constitutional: No Fever, No Chills ENT/Mouth: No Ear Pain, No Hoarseness, No sore throat Eyes: No Eye Pain, No Swelling, No Redness, No Foreign Body Cardiovascular: No Chest Pain, No SOB Respiratory: No Cough, No Dyspnea Gastrointestinal: No Nausea, No Vomiting, No Diarrhea, No abdominal Pain Genitourinary: No Dysuria, No Hematuria Musculoskeletal: positive left foot pain secondary to osteomyelitis Skin: No Skin lacerations, No rash Neuro: No Weakness, No Numbness, No Paresthesias, No Loss of Consciousness, No Dizziness, positive Headache Psych: No Anxiety/Panic, No Depression Heme/Lymph: no easy bruising, no Lymphadenopathy Endocrine: No Polyuria, No Polydipsia Yes all other systems are reviewed and are negative [facility] Past Medical History Attestation statement: The following information was validated with the patient. Source: old records reviewed Medical History Depression Diabetic foot ulcer HTN (hypertension) LBBB (left bundle branch block) Suicidal ideation Type 2 diabetes mellitus with foot ulcer Surgical History H/O: vasectomy Family History Family History Father Neck malignant neoplasm Social History Social History Household Members: Spouse and Children Housing: House Do you presently have visiting nurse or other home services: No Alcohol intake: current Alcohol intake frequency: holidays/special occasions only Patient Tobacco Use Status: Never used Tobacco Second Hand Smoke Exposure: No Use of substances other than those prescribed or required for medical reasons: No Substance Use Type: Marijuana Advance Directives: Yes Advance Directives on File: Yes Advance Directives Date on File: 04/11/22 service: No Current occupational status: employed Sexual orientation: Straight/Heterosexual Physical Exam ED Vital Signs: Vital Signs - 24 hr 04/21/22 16:04 04/21/22 21:47 04/21/22 23:51 Temperature 97.3 F 98.0 F Pulse Rate 89 90 89 Respiratory Rate 18 15 16 Blood Pressure 184/93 H 153/80 H 155/84 H Pulse Oximetry 100 98 97 Oxygen Delivery Method Room Air Room Air Room Air BMI result Body Mass Index 25.4 Appearance: Alert. Oriented X3. No acute distress. Eyes: Pupils equal, round and reactive to light. ENT: Pharynx normal. Neck: Normal inspection. Neck supple. CVS: Normal heart rate and rhythm. Pulses normal. Respiratory: No respiratory distress. Breath sounds normal. Abdomen: Soft and nontender. Skin: Skin warm and dry. Normal skin color. Normal skin turgor. Extremities: Gait awkward but balanced. Strength 5/5 to all extremities. Neuro: No motor deficit. No sensory deficit. Cranial nerves 2-12 intact. Course Course Course Narrative: 56-year-old male presents for evaluation for an elevated blood pressure. Visiting nurse change his dressing, took his vital signs and noted a blood pressure 190/111. Patient was in pain at the time of the assessment, and did report headache. Visiting nurse referred him to his primary care who then referred him to the emergency department. Patient is being treated for osteomyelitis with vancomycin IV twice a day, has a PICC line to the right upper extremity. He had the dressing changed today, and has no other complaints. He has been feeling well other than his headache today. He is neurovascularly intact, no changes in vision, labs drawn while he was in the emergency department waiting room with nonemergent findings. Troponin is negative, chest x-ray is negative. EKG is normal sinus. 21:53 blood pressure is 153/80. I do not feel that blood pressure management is indicated at this time. I did discuss this with the patient, and he agrees. Patient is due for his IV antibiotics for osteomyelitis. Will order vancomycin to infuse here. Vancomycin infusion complete, patient is complaining of pain, order for Tylenol and oxycodone. Patient does not request medications for home usage, he does have a history of overdose and he does not want the temptation at home. Patient verbalized understanding of and agrees to plan of care discharge home. Verbalized understanding of signs and symptoms indicating need for emergent intervention. Medical Decision Making Differential Diagnosis Differential Diagnosis: Hypertension, headache Medical Records Medical records reviewed: Yes I reviewed the patient's medical records. Lab Data Lab results reviewed: Yes I reviewed the patient's lab results. Result diagrams: 04/21/22 19:48 04/21/22 19:48 Labs: Lab Results 04/21/22 04/21/22 04/21/22 Range/Units 19:48 19:48 19:48 WBC 7.0 (4.8-10.8) X10*3/uL RBC 5.27 (4.60-5.80) X10*6/uL Hgb 14.7 (14.0-18.0) g/dl Hct 45.2 (42.0-52.0) % MCV 85.8 (80.0-98.0) fL MCH 27.9 (27.0-33.0) pg MCHC 32.5 (31.0-36.0) g/dl RDW 14.4 (11.0-16.0) % Plt Count 257 D (160-400) X10*3/uL MPV 9.8 (9.4-12.4) fL Immature Gran % (Auto) 0.4 (0.0-0.4) % Neut % (Auto) 59.2 (45-73) % Lymph % (Auto) 25.4 (20-40) % [place] % (Auto) 9.7 (2-11) % Eos % (Auto) 4.4 H (0-4) % Baso % (Auto) 0.9 (0-2) % Lymph # (Auto) 1.8 (1.2-4.9) X10*3/uL [place] # (Auto) 0.7 (0.1-1.2) X10*3/uL Eos # (Auto) 0.3 (0.0-0.4) X10*3/uL Baso # (Auto) 0.1 (0.0-0.2) X10*3/uL Abs Immat Gran (auto) 0.03 (0.00-0.03) X10*3/uL Absolute Neuts (auto) 4.2 (2.0-8.3) x10*3/uL Absolute Nucleated RBC 0.000 (0.0-0.012) X10*3/uL Nucleated RBC % (auto) 0.0 (0.0-0.2) /100WBC Sodium 144 (135-145) mmol/L Potassium 4.0 (3.3-5.1) mmol/L Chloride 107 (96-108) mmol/L Carbon Dioxide 22 (22-29) mmol/L Anion Gap 19 (12-20) BUN 17 H D (9-16) mg/dL Creatinine 0.95 (0.5-1.4) mg/dL Estim Creat Clear Calc 83.0 Estimated GFR > 60 Random Glucose 151 H D (60-115) mg/dL Calcium 9.6 D (8.4-10.2) mg/dL Troponin I High Sens < 3.5 (<3.5-35.0) ng/L Imaging Data Chest x-ray: Attestation: I personally reviewed and interpreted this imaging study as follows: Radiologist's impression: CLINICAL INFORMATION: Reason for Exam chest pain COMPARISON: Prior chest x-ray 02/24/2022? TECHNIQUE: XR chest 1V Tubes and lines: PICC line in place the tip of which projecting over the SVC/RA junction. Lungs and pleura: Lungs are clear. Heart and mediastinum: The mediastinum is within normal limits.. Bones/soft tissue: Skeletal structures included are normal for patient's age. XR/XR chest 1V IMPRESSION: No radiographic evidence of acute cardiopulmonary disease. ? PICC line in place the tip of which is properly positioned projecting over the SVC/RA junction. ECG Data Attestation: I personally reviewed and interpreted this ECG as follows: Prior ECG tracings: available for review Interpretation: Vent. rate 93 BPM ID interval 140 ms QRS duration 134 ms QT/QTc 410/509 ms P-R-T axes 27 22 123 Normal sinus rhythm Left ventricular hypertrophy with QRS widening and repolarization abnormality ( Romhilt-Galvan ) Abnormal ECG When compared with ECG of 10-APR-2022 01:45, Left bundle branch block is no longer Present 21-APR-2022 18:53:11 Discharge Plan Discharge Clinical Impression: Osteomyelitis, Hypertension Patient Disposition: Home, Self-Care Instructions: Osteomyelitis (ED), Hypertension (ED), Hypertension and Diabetes (ED) Additional Instructions: You were evaluated for hypertension. When you arrived to the emergency department your blood pressure was 153/80. Please take your blood pressure medications as directed. Your blood pressure was not high enough to be considered hypertensive crisis We gave you your scheduled IV vancomycin dosed for osteomyelitis. We treated you with Tylenol and 1 dose of oxycodone 5 mg for pain management. Please continue to follow-up with IV therapy for vancomycin. Take your next dose as scheduled. Thank you for choosing this emergency department for evaluation. Please follow-up with primary care physician as needed. Return to the emergency department for any new, concerning, or worsening symptoms. Prescriptions: No Action metformin 500 mg tablet extended release 24 hr 2 tab PO BID metoprolol tartrate 25 mg Tablet 25 mg PO BID Qty: 60 0RF Protocol: Hold for SBP/HR < HOLD for SBP < : 90 HOLD for HR < : 60 valsartan 80 mg tablet 1 tab PO DAILY Qty: 30 0RF bupropion HCl 300 mg tablet extended release 24 hr 1 tab PO DAILY Qty: 30 0RF bupropion HCl 150 mg tablet extended release 24 hr 1 tab PO DAILY Qty: 30 0RF Januvia 50 mg tablet 50 mg PO DAILY Qty: 30 0RF aripiprazole [Abilify] 2 mg tablet 2 mg PO DAILY Qty: 30 0RF Trulicity 1.5 mg/0.5 mL pen injector 1.5 mg subcut FR@0900 vancomycin in 0.9 % sodium chl 1 gram/250 mL solution 1 g IV Q12H Qty: 3000 0RF Rx Instructions: Total 6 weeks from 04/10/22 gentamicin 0.1 % ointment 1 appl topical QID Qty: 30 1RF Interventions: ED Discharge Assessment Last Done: 04/21/22 23:50 Discharge Date/Time: 04/21/22 23:52
[2022-04-21] MEDS: vancomycin HCL 1,000 MG in 0.9 % Sodium Chloride 250 ML 270 MG IV (22:13)
--- NOTE | 2022-04-21 22:20 | PC.NURSE ---
patient a&ox3, picc intact, iv antibiotics running per order, pt left foot darco boot intact, pt c/o 10/21 pain, vitals currently stable, call lynn within reach, will continue to monitor
[2022-04-21] MEDS: Acetaminophen 325 MG TABLET 650 MG PO (23:25)
--- NOTE | 2022-04-21 23:28 | PC.NURSE ---
Pt was given pain meds by provider verbal order. pt requested stronger meds. RN notified nurse Liz.
[2022-04-21] MEDS: oxyCODONE HCl Immed Release 5 MG TABLET PO (23:38)
[2022-04-21 23:51] VITALS: BP 155/84; PULSE 89; RESP 16; O2SAT 97
== END 2022-04-21 23:52 | disposition home or self-care (01) ==
PROVIDERS: Emergency Provider Emergency Medicine Emergency Medical Services; PCP Family Medicine
DX: M86.9 Osteomyelitis, unspecified (principal); I10 Essential (primary) hypertension; R07.89 Other chest pain; Z79.899 Other long term (current) drug therapy
CPT/HCPCS: 36415; 71045; 80048; 84484; 85025; 93005; 96374; 99284; 99285; J3370

== ENCOUNTER 2022-04-24 10:32 | Outpatient (REF) | payer BC, SELFPAY ==
[2022-04-24 10:45] LABS: MANUAL DIFF FLAG NO
[2022-04-24 10:49] LABS: Basophils Absolute Auto 0.1 X10*3/uL (0.0-0.2); Basophils Percent Auto 1.2 % (0-2); Eosinophils Absolute Auto 0.2 X10*3/uL (0.0-0.4); Eosinophils Percent Auto 3.6 % (0-4); Hematocrit 43.4 % (42.0-52.0); Hemoglobin 14.1 g/dl (14.0-18.0); Imm Gran Abs Auto 0.03 X10*3/uL (0.00-0.03); Imm Gran Pct Auto 0.4 % (0.0-0.4); Lymphocytes Absolute Auto 1.8 X10*3/uL (1.2-4.9); Lymphocytes Percent Auto 27.1 % (20-40); Mean Corpuscular HGB Conc 32.5 g/dl (31.0-36.0); Mean Corpuscular Hemoglobin 28.3 pg (27.0-33.0); Mean Platelet Volume 10.1 fL (9.4-12.4); Monocytes Absolute Auto 0.7 X10*3/uL (0.1-1.2); Monocytes Percent Auto 9.9 % (2-11); Neutrophils Absolute Auto 3.9 x10*3/uL (2.0-8.3); Neutrophils Percent Auto 57.8 % (45-73); Platelet Count 265 X10*3/uL (160-400); Red Blood Count 4.99 X10*6/uL (4.60-5.80); Red Cell Distribution Width 14.3 % (11.0-16.0); White Blood Count 6.7 X10*3/uL (4.8-10.8)
[2022-04-24 11:41] LABS: Vancomycin Trough 17.3 mcg/mL (10.0-20.0)
[2022-04-24 12:16] LABS: Anion Gap 17 (12-20); Blood Urea Nitrogen 22 mg/dL (9-16); Calcium 9.4 mg/dL (8.4-10.2); Carbon Dioxide 27 mmol/L (22-29); Chloride 106 mmol/L (96-108); Estimated Glomerular Filt Rate > 60; Glucose Random 181 mg/dL (60-115); Potassium 4.5 mmol/L (3.3-5.1); Sodium 145 mmol/L (135-145)
== END 2022-04-24 10:33 | disposition home or self-care (01) ==
LOC: HO.HVNA 10:32
PROVIDERS: Visit Provider Internal Medicine
DX: M86.172 Other acute osteomyelitis, left ankle and foot (principal)
CPT/HCPCS: 36415; 80048; 80202; 85025

== ENCOUNTER 2022-05-01 09:58 | Outpatient (REF) | payer BC, SELFPAY ==
[2022-05-01 10:02] LABS: MANUAL DIFF FLAG NO
[2022-05-01 10:06] LABS: Basophils Absolute Auto 0.1 X10*3/uL (0.0-0.2); Basophils Percent Auto 1.5 % (0-2); Eosinophils Absolute Auto 0.2 X10*3/uL (0.0-0.4); Eosinophils Percent Auto 2.9 % (0-4); Hematocrit 44.5 % (42.0-52.0); Hemoglobin 14.3 g/dl (14.0-18.0); Imm Gran Abs Auto 0.05 X10*3/uL (0.00-0.03); Imm Gran Pct Auto 0.8 % (0.0-0.4); Lymphocytes Absolute Auto 1.4 X10*3/uL (1.2-4.9); Mean Corpuscular HGB Conc 32.1 g/dl (31.0-36.0); Mean Corpuscular Hemoglobin 28.1 pg (27.0-33.0); Mean Corpuscular Volume 87.6 fL (80.0-98.0); Mean Platelet Volume 9.8 fL (9.4-12.4); Monocytes Absolute Auto 0.6 X10*3/uL (0.1-1.2); Monocytes Percent Auto 10.4 % (2-11); Neutrophils Absolute Auto 3.9 x10*3/uL (2.0-8.3); Neutrophils Percent Auto 62.4 % (45-73); Platelet Count 284 X10*3/uL (160-400); Red Blood Count 5.08 X10*6/uL (4.60-5.80); White Blood Count 6.2 X10*3/uL (4.8-10.8)
[2022-05-01 10:49] LABS: Anion Gap 16 (12-20); Blood Urea Nitrogen 16 mg/dL (9-16); Calcium 9.4 mg/dL (8.4-10.2); Carbon Dioxide 28 mmol/L (22-29); Chloride 104 mmol/L (96-108); Estimated Glomerular Filt Rate > 60; Glucose Random 210 mg/dL (60-115); Potassium 4.3 mmol/L (3.3-5.1); Sodium 144 mmol/L (135-145)
[2022-05-01 11:27] LABS: Vancomycin Trough 16.4 mcg/mL (10.0-20.0)
== END 2022-05-01 09:59 | disposition home or self-care (01) ==
LOC: HO.HVNA 09:58
PROVIDERS: Visit Provider Internal Medicine
DX: L03.116 Cellulitis of left lower limb (principal)
CPT/HCPCS: 36415; 80048; 80202; 85025

== ENCOUNTER 2022-05-08 10:36 | Outpatient (REF) | payer BC, SELFPAY ==
[2022-05-08 10:42] LABS: MANUAL DIFF FLAG NO
[2022-05-08 10:46] LABS: Basophils Absolute Auto 0.1 X10*3/uL (0.0-0.2); Basophils Percent Auto 0.9 % (0-2); Eosinophils Absolute Auto 0.3 X10*3/uL (0.0-0.4); Hematocrit 44.1 % (42.0-52.0); Hemoglobin 14.8 g/dl (14.0-18.0); Imm Gran Abs Auto 0.04 X10*3/uL (0.00-0.03); Imm Gran Pct Auto 0.6 % (0.0-0.4); Lymphocytes Absolute Auto 1.3 X10*3/uL (1.2-4.9); Lymphocytes Percent Auto 19.8 % (20-40); Mean Corpuscular HGB Conc 33.6 g/dl (31.0-36.0); Mean Corpuscular Volume 89.5 fL (80.0-98.0); Mean Platelet Volume 10.1 fL (9.4-12.4); Monocytes Absolute Auto 0.9 X10*3/uL (0.1-1.2); Monocytes Percent Auto 13.2 % (2-11); Neutrophils Percent Auto 61.5 % (45-73); Platelet Count 214 X10*3/uL (160-400); Red Blood Count 4.93 X10*6/uL (4.60-5.80); Red Cell Distribution Width 14.6 % (11.0-16.0); White Blood Count 6.4 X10*3/uL (4.8-10.8)
[2022-05-08 11:23] LABS: Anion Gap 15 (12-20); Blood Urea Nitrogen 20 mg/dL (9-16); Calcium 9.8 mg/dL (8.4-10.2); Carbon Dioxide 27 mmol/L (22-29); Chloride 105 mmol/L (96-108); Estimated Glomerular Filt Rate > 60; Glucose Random 188 mg/dL (60-115); Potassium 4.2 mmol/L (3.3-5.1); Sodium 143 mmol/L (135-145)
== END 2022-05-08 10:37 | disposition home or self-care (01) ==
LOC: HO.HVNA 10:36
PROVIDERS: Visit Provider Internal Medicine
DX: M86.172 Other acute osteomyelitis, left ankle and foot (principal)
CPT/HCPCS: 36415; 80048; 80202; 85025

== ENCOUNTER 2022-05-15 10:23 | Outpatient (REF) | payer BC, SELFPAY ==
[2022-05-15 10:27] LABS: MANUAL DIFF FLAG NO
[2022-05-15 10:40] LABS: Basophils Absolute Auto 0.1 X10*3/uL (0.0-0.2); Basophils Percent Auto 1.2 % (0-2); Eosinophils Absolute Auto 0.2 X10*3/uL (0.0-0.4); Eosinophils Percent Auto 3.5 % (0-4); Hematocrit 45.8 % (42.0-52.0); Hemoglobin 14.7 g/dl (14.0-18.0); Imm Gran Abs Auto 0.03 X10*3/uL (0.00-0.03); Imm Gran Pct Auto 0.5 % (0.0-0.4); Lymphocytes Absolute Auto 1.4 X10*3/uL (1.2-4.9); Lymphocytes Percent Auto 22.9 % (20-40); Mean Corpuscular HGB Conc 32.1 g/dl (31.0-36.0); Mean Corpuscular Hemoglobin 28.4 pg (27.0-33.0); Mean Corpuscular Volume 88.4 fL (80.0-98.0); Mean Platelet Volume 9.9 fL (9.4-12.4); Monocytes Absolute Auto 0.7 X10*3/uL (0.1-1.2); Monocytes Percent Auto 11.3 % (2-11); Neutrophils Absolute Auto 3.6 x10*3/uL (2.0-8.3); Neutrophils Percent Auto 60.6 % (45-73); Platelet Count 238 X10*3/uL (160-400); Red Blood Count 5.18 X10*6/uL (4.60-5.80); Red Cell Distribution Width 13.8 % (11.0-16.0); White Blood Count 5.9 X10*3/uL (4.8-10.8)
[2022-05-15 11:14] LABS: Anion Gap 13 (12-20); Blood Urea Nitrogen 20 mg/dL (9-16); Carbon Dioxide 30 mmol/L (22-29); Chloride 106 mmol/L (96-108); Estimated Glomerular Filt Rate > 60; Glucose Random 125 mg/dL (60-115); Potassium 4.2 mmol/L (3.3-5.1); Sodium 145 mmol/L (135-145)
[2022-05-15 11:50] LABS: Vancomycin Trough 17.6 mcg/mL (10.0-20.0)
== END 2022-05-15 10:24 | disposition home or self-care (01) ==
LOC: HO.HVNA 10:23
PROVIDERS: Visit Provider Internal Medicine
DX: M86.172 Other acute osteomyelitis, left ankle and foot (principal); Z79.899 Other long term (current) drug therapy
CPT/HCPCS: 36415; 80048; 80202; 85025

== ENCOUNTER 2022-05-22 11:21 | Outpatient (REF) | payer BC, SELFPAY ==
[2022-05-22 12:28] LABS: INTERNATIONAL NORM RATIO 0.9 (0.9-1.1); Prothrombin Time 10.1 SEC (10.0-13.1)
== END 2022-05-22 11:22 | disposition home or self-care (01) ==
LOC: HO.LAB 11:21
PROVIDERS: PCP Family Medicine; Visit Provider Internal Medicine Cardiovascular Disease
DX: I51.9 Heart disease, unspecified (principal)
CPT/HCPCS: 36415; 85610

== ENCOUNTER 2022-11-13 12:19 | Emergency (ER) | payer BC, SELFPAY ==
--- NOTE | ~2022-11-13 | XR_ITS ---
EXAMINATION: XR CHEST CLINICAL INFORMATION: Chest pain, cough. COMPARISON: 04/21/2022 chest radiograph. TECHNIQUE: Frontal view of the chest was obtained. FINDINGS: Mild linear markings are seen in the left lower lung. The left upper lung field and right lung are clear. The heart and mediastinal structures are unremarkable. XR/XR chest 1V IMPRESSION: Mild linear atelectasis versus scarring in the left lower lung. No definitive infiltrate.
[2022-11-13 12:34] VITALS: BP 154/84; PULSE 97; RESP 18; TEMP 36.6; O2SAT 97; BMI 28.1
--- NOTE | 2022-11-13 12:37 | ED_ITS ---
HPI - General Adult General Chief complaint: General Medical <BRY Mondragon - Last Filed: 11/13/22 12:38> Stated complaint: Cough/Eye discharge <BRY Mondragon - Last Filed: 11/13/22 12:38> Time Seen by Provider: 11/13/22 13:04 <BRY Mondragon - Last Filed: 11/13/22 12:38> Source: patient <Kalli Grant NP - Last Filed: 11/13/22 14:39> Mode of arrival: ambulatory <Kalli Grant NP - Last Filed: 11/13/22 14:39> Limitations: no limitations <Kalli Grant NP - Last Filed: 11/13/22 14:39> History of Present Illness HPI narrative: Patient is a 56-year-old male with history of T2 dm, HTN, LBBB presenting with 5 days of cough which was nonproductive until this morning. Patient reports this morning his cough was productive of yellow sputum and he also developed bilateral eye redness with watery discharge and states that at 3:00 a.m. both eyes were crusted shut. He reports that his eyes are not pruritic. He also reports mild sore throat. He states that if he takes a deep breath this triggers his coughing episodes. He denies any dyspnea on exertion. He denies any fever but does report chills. He has used Sudafed as well as Vicks and NyQuil for his symptoms. He reports that his has been sick with similar symptoms for 2 weeks. <Kalli Grant NP - Last Filed: 11/13/22 14:39> Related Data Home medications: Home Medications Medication Instructions Recorded Confirmed metformin 500 mg tablet,extended 2 tab PO BID 12/08/21 04/10/22 release 24 hr dulaglutide 1.5 mg/0.5 mL 1.5 mg subcut FR@0900 04/10/22 04/10/22 subcutaneous pen injector (Trulicity) Previous Rx's Medication Instructions Recorded aripiprazole 2 mg tablet (Abilify) 2 mg PO DAILY #30 tabs 03/14/22 bupropion HCl 150 mg 24 hr tablet, 1 tab PO DAILY #30 tabs 03/14/22 extended release bupropion HCl 300 mg 24 hr tablet, 1 tab PO DAILY #30 tabs 03/14/22 extended release metoprolol tartrate 25 mg tablet 25 mg PO BID #60 tabs 03/14/22 sitagliptin phosphate 50 mg tablet 50 mg PO DAILY #30 tabs 03/14/22 (Januvia) gentamicin 0.1 % topical ointment 1 appl topical QID #30 grams 03/28/22 valsartan 80 mg tablet 160 mg PO BID #30 tabs 04/29/22 benzonatate 100 mg capsule 100 mg PO TID PRN cough #20 caps 11/13/22 olopatadine 0.1 % eye drops 1 drp ophthalmic (eye) BID #5 mL 11/13/22 (Pataday Twice Daily Relief) <BRY Mondragon - Last Filed: 11/13/22 12:38> Allergies/adverse reactions: Allergies Allergy/AdvReac Type Severity Reaction Status Date / Time codeine [CODEINE] Allergy Unknown delayed Verified 02/07/22 09:46 responses 02/24/17 <BRY Mondragon - Last Filed: 11/13/22 12:38> Review of Systems Review of Systems: Yes all other systems are reviewed and are negative <Kalli Grant NP - Last Filed: 11/13/22 14:39> Constitutional: Constitutional: Reports as per HPI <Kalli Grant NP - Last Filed: 11/13/22 14:39> [facility] Past Medical History Medical History: Medical History Depression Diabetic foot ulcer HTN (hypertension) LBBB (left bundle branch block) Suicidal ideation Type 2 diabetes mellitus with foot ulcer <BRY Mondragon - Last Filed: 11/13/22 12:38> Surgical History: Surgical History H/O: vasectomy <BRY Mondragon - Last Filed: 11/13/22 12:38> Family History Family History: Family History Father Neck malignant neoplasm <BRY Mondragon - Last Filed: 11/13/22 12:38> Social History Social History: Social History Household Members: Spouse and Children Housing: House Do you presently have visiting nurse or other home services: No Alcohol intake: current Alcohol intake frequency: holidays/special occasions only Patient Tobacco Use Status: Never used Tobacco Second Hand Smoke Exposure: No Substance Use Type: Marijuana Advance Directives: Yes Advance Directives on File: Yes Advance Directives Date on File: 04/11/22 service: No Current occupational status: employed Sexual orientation: Straight/Heterosexual <BRY Mondragon - Last Filed: 11/13/22 12:38> Physical Exam ED Vital Signs: Vital Signs - 24 hr 11/13/22 12:34 Temperature 98 F Pulse Rate 97 Respiratory Rate 18 Blood Pressure 154/84 H Pulse Oximetry 97 Oxygen Delivery Method Room Air BMI result Body Mass Index 28.1 <BRY Mondragon - Last Filed: 11/13/22 12:38> Vital Signs - 24 hr 11/13/22 12:34 Temperature 98 F Pulse Rate 97 Respiratory Rate 18 Blood Pressure 154/84 H Pulse Oximetry 97 Oxygen Delivery Method Room Air BMI result Body Mass Index 28.1 <Kalli Grant NP - Last Filed: 11/13/22 14:39> Const General: cooperative, healthy appearing and no acute distress <Kalli Grant NP - Last Filed: 11/13/22 14:39> Orientation/consciousness: oriented to person, oriented to place, oriented to time and patient oriented x3 <Kalli Grant NP - Last Filed: 11/13/22 14:39> Limitations: no limitations <Kalli Grant NP - Last Filed: 11/13/22 14:39> HENMT Head: Yes normocephalic and Yes atraumatic <Kalli Grant NP - Last Filed: 11/13/22 14:39> Ears: external ears normal and TM's normal bilaterally <Kalli Grant NP - Last Filed: 11/13/22 14:39> General nose exam: Normal external nose present <Kalli Grant NP - Last Filed: 11/13/22 14:39> Face and sinus: Yes sinuses nontender and Yes face symmetric <Kalli Grant NP - Last Filed: 11/13/22 14:39> Mouth: oropharynx normal and moist mucous membranes <Kalli Grant NP - Last Filed: 11/13/22 14:39> Throat: Yes uvula midline and Yes posterior oropharynx abnormal (erythematous without edema or exudate) <Kalli Grant NP - Last Filed: 11/13/22 14:39> Eyes Periorbital: periorbital findings normal <Kalli Grant NP - Last Filed: 11/13/22 14:39> Conjunctivae: conjunctival abnormal bilateral conjunctival injection diffuse and discharge mucoid <Kalli Grant NP - Last Filed: 11/13/22 14:39> Sclerae: scleral abnormal bilateral scleral injection diffuse <Kalli Grant NP - Last Filed: 11/13/22 14:39> Pupils: Equal, round and reactive pupils present <Kalli Grant NP - Last Fi led: 11/13/22 14:39> EOM: EOMs intact bilaterally <Kalli Grant NP - Last Filed: 11/13/22 14:39> Neck Neck: Yes normal visual inspection, Yes no lymphadenopathy and Yes supple <Kalli Grant NP - Last Filed: 11/13/22 14:39> Resp Effort & Inspection: normal respiratory effort and able to speak in complete sentences <Kalli Grant NP - Last Filed: 11/13/22 14:39> Auscultation: clear to auscultation bilaterally <Kalli Grant NP - Last Filed: 11/13/22 14:39> Cardio Rate: regular rate <Kalli Grant NP - Last Filed: 11/13/22 14:39> Rhythm: regular rhythm <Kalli Grant NP - Last Filed: 11/13/22 14:39> Heart sounds: S1 normal heart sound present and S2 normal heart sound present <Kalli Grant NP - Last Filed: 11/13/22 14:39> GI Palpation (GI): Soft to palpation and nontender <Kalli Grant NP - Last Filed: 11/13/22 14:39> Auscultation: normoactive bowel sounds <Kalli Grant NP - Last Filed: 11/13/22 14:39> Skin General skin exam: elasticity normal and turgor normal <Kalli Grant NP - Last Filed: 11/13/22 14:39> Neuro General: oriented to person, oriented to place, oriented to time, patient oriented x3, moves all extremities, no focal motor deficits and CN's II-XI intact bilaterally <Kalli Grant NP - Last Filed: 11/13/22 14:39> Cranial nerves: Yes Equal, round and reactive pupils present <Kalli Grant NP - Last Filed: 11/13/22 14:39> Cognition (Neuro): normal cognition <Kalli Grant NP - Last Filed: 11/13/22 14:39> Extrem General: Yes full ROM, Yes no pedal edema and Yes no calf tenderness <Kalli Grant NP - Last Filed: 11/13/22 14:39> Psych Mental Status: mental status grossly normal <Kalli Grant NP - Last Filed: 11/13/22 14:39> Affect: normal affect <Kalli Grant NP - Last Filed: 11/13/22 14:39> Thought process: Normal thought process present <Kalli Grant NP - Last Filed: 11/13/22 14:39> Course Course Course Narrative: This is an RME: Additional HPI, ROS, PE not included below will be deferred to primary provider. 56-year-old male presents with dry cough, fatigue, malaise, bilateral blurred vision, crusting in the eyes worse in the morning all going on since this weekend worsening, not going away. Was advised to come by PCP. Physical exam benign. 97%, heart rate of 96, patient well- Appearing. Will place back in the waiting room order chest x-ray and basic viral test <BRY Mondragon - Last Filed: 11/13/22 12:38> This is an RME: Additional HPI, ROS, PE not included below will be deferred to primary provider. 56-year-old male presents with dry cough, fatigue, malaise, bilateral blurred vision, crusting in the eyes worse in the morning all going on since this weekend worsening, not going away. Was advised to come by PCP. Physical exam benign. 97%, heart rate of 96, patient well- Appearing. Will place back in the waiting room order chest x-ray and basic viral test 14:05 CXR FINDINGS: Mild linear markings are seen in the left lower lung. The left upper lung field and right lung are clear. The heart and mediastinal structures are unremarkable. XR/XR chest 1V IMPRESSION: Mild linear atelectasis versus scarring in the left lower lung. No definitive infiltrate. CXR reveals mild linear atelectasis vs scarring to LLL, no infiltrate. 14:24 Covid, influenza, and strep all negative. Discussed all results with patient and advised that all symptoms are likely related to a viral upper respiratory infection. Prescribed benzonatate for cough as well as Pataday eyedrops. Instructed patient to follow-up with PCP. Return precautions discussed at bedside. <Kalli Grant NP - Last Filed: 11/13/22 14:39> Medical Decision Making Medical Decision Making MDM Narrative: Patient is a 56-year-old male with history of T2DM, HTN, LBBB presenting with 5 days of cough which was nonproductive until this morning, now productive of yellow sputum as well as bilateral eye redness and watery drainage consistent with viral upper respiratory infection and likely viral conjunctivitis. On exam patient is nontoxic appearing, afebrile, vital signs stable, lungs clear to auscultation throughout. Patient is noted to have bilateral erythematous conjunctiva as well as injected sclera with clear drainage. Concern for viral upper respiratory infection including COVID or influenza, sinusitis, allergic rhinitis, or strep pharyngitis. Concern for bronchitis or pneumonia. Low suspicion for CHF, malignancy/mass, ACS, pneumothorax. Plan: swab from Covid/flu, chest x-ray <Kalli Grant NP - Last Filed: 11/13/22 14:39> Differential Diagnosis Differential Diagnoses: The differential diagnosis associated with the presentation includes <Kalli Grant NP - Last Filed: 11/13/22 14:39> As above. <Kalli Grant NP - Last Filed: 11/13/22 14:39> Lab Data MDM Lab Attestation statement: I reviewed the patient's lab results. <Kalli Grant NP - Last Filed: 11/13/22 14:39> Labs: Lab Results 11/13/22 11/13/22 11/13/22 Range/Units 12:46 12:46 13:38 COVID-19 ([facility]) Negative (Negative) COVID-19 Clin Com See Note Influenza Type A (ED) Negative (Negative) Influenza Type B (ED) Negative (Negative) Influenza A & B Note See Note S. pyogenes GrpA ED Negative (Negative) <BRY Mondragon - Last Filed: 11/13/22 12:38> Lab Results 11/13/22 11/13/22 11/13/22 Range/Units 12:46 12:46 13:38 COVID-19 ([facility]) Negative (Negative) COVID-19 Clin Com See Note Influenza Type A (ED) Negative (Negative) Influenza Type B (ED) Negative (Negative) Influenza A & B Note See Note S. pyogenes GrpA ED Negative (Negative) <Kalli Grant NP - Last Filed: 11/13/22 14:39> Independent Interpretation I performed an independent interpretation of an: Plain X-Ray <Kalli Grant NP - Last Filed: 11/13/22 14:39> Interpretation: I independently reviewed the x-ray and agree with the radiologist's interpretation.. <Kalli Grant NP - Last Filed: 11/13/22 14:39> Radiology Impression Discussion of test interpretation with radiology: I have reviewed the radiologist's reading. <Kalli Grant NP - Last Filed: 11/13/22 14:39> Radiologist Impression: FINDINGS: Mild linear markings are seen in the left lower lung. The left upper lung field and right lung are clear. The heart and mediastinal structures are unremarkable. XR/XR chest 1V IMPRESSION: Mild linear atelectasis versus scarring in the left lower lung. No definitive infiltrate. <Kalli Grant NP - Last Filed: 11/13/22 14:39> External Record Review External record reviewed: Inpatient record, Office record and Outpatient record <Kalli Grant NP - Last Filed: 11/13/22 14:39> Chronic Conditions Patient?s care impacted by: Diabetes and Hypertension <Kalli Grant NP - Last Filed: 11/13/22 14:39> Discharge Plan Discharge Clinical Impression: Viral URI Acute viral conjunctivitis Qualifiers: Laterality: bilateral Qualified Code(s): B30.9 - Viral conjunctivitis, unspecified <BRY Mondragon - Last Filed: 11/13/22 12:38> Patient Disposition: Home, Self-Care <BRY Mondragon - Last Filed: 11/13/22 12:38> Instructions: Upper Respiratory Infection (DC), Viral Syndrome (ED), Conjunctivitis (ED) <BRY Mondragon - Last Filed: 11/13/22 12:38> Additional Instructions: You were tested today for COVID, flu, and strep, all of which were negative. Your chest x-ray does not reveal any evidence of pneumonia. Your symptoms are likely related to a viral upper respiratory infection. You are being prescribed benzonatate which you can take up to 3 times daily as needed for cough as well as Pataday eyedrops which you should use in both eyes twice daily. Follow up with your PCP for any ongoing symptoms. Return to the emergency department for worsening symptoms. <BRY Mondragon - Last Filed: 11/13/22 12:38> Prescriptions: New benzonatate 100 mg capsule 100 mg PO TID PRN (Reason: cough) Qty: 20 0RF olopatadine [Pataday Twice Daily Relief] 0.1 % drops 1 drp ophthalmic (eye) BID Qty: 5 0RF Rx Instructions: separate doses by at least 6-8 hours No Action valsartan 80 mg tablet 160 mg PO BID Qty: 30 0RF metformin 500 mg tablet extended release 24 hr 2 tab PO BID metoprolol tartrate 25 mg Tablet 25 mg PO BID Qty: 60 0RF Protocol: Hold for SBP/HR < HOLD for SBP < : 90 HOLD for HR < : 60 bupropion HCl 300 mg tablet extended release 24 hr 1 tab PO DAILY Qty: 30 0RF bupropion HCl 150 mg tablet extended release 24 hr 1 tab PO DAILY Qty: 30 0RF Januvia 50 mg tablet 50 mg PO DAILY Qty: 30 0RF aripiprazole [Abilify] 2 mg tablet 2 mg PO DAILY Qty: 30 0RF Trulicity 1.5 mg/0.5 mL pen injector 1.5 mg subcut FR@0900 gentamicin 0.1 % ointment 1 appl topical QID Qty: 30 1RF <BRY Mondragon - Last Filed: 11/13/22 12:38> Stand Alone Forms: Work/School Release <BRY Mondragon - Last Filed: 11/13/22 12:38>
[2022-11-13 13:11] LABS: IDNOW Serial# 08D9AD1C; Influenza A Negative (Negative); Influenza B2 Negative (Negative)
[2022-11-13 13:25] LABS: COVID-19 Test Negative (Negative); IDNOW Serial# 08D9AD1C
[2022-11-13 14:04] LABS: IDNOW Serial# 08D9AD1C; Strep A Nucleic Acid Negative (Negative)
== END 2022-11-13 14:45 | disposition home or self-care (01) ==
PROVIDERS: Physician Assistant; Registered Nurse Emergency; Emergency Provider Student in an Organized Health Care Education/Training Program; PCP Family Medicine
DX: J06.9 Acute upper respiratory infection, unspecified (principal); B30.9 Viral conjunctivitis, unspecified; Z20.822 Contact with and (suspected) exposure to COVID-19; E11.9 Type 2 diabetes mellitus without complications; I10 Essential (primary) hypertension; Z79.84 Long term (current) use of oral hypoglycemic drugs; Z79.899 Other long term (current) drug therapy
CPT/HCPCS: 71045; 87502; 87635; 87651; 99283

== ENCOUNTER 2022-11-15 16:11 | Inpatient (IN) | payer BC, SELFPAY ==
--- NOTE | ~2022-11-15 | XR_ITS ---
EXAMINATION: XR CHEST CLINICAL INFORMATION: Cough and shortness of breath. COMPARISON: Chest radiograph 11/13/2022. TECHNIQUE: 2 views of the chest were obtained. FINDINGS: Stable appearance of the cardiomediastinal silhouette. Increased multifocal interstitial thickening and patchy opacities compared to 11/13/2022. No pleural effusion or pneumothorax. No acute osseous abnormalities. The visualized upper abdomen is within normal limits. XR/XR chest 2V IMPRESSION: Increased interstitial thickening and patchy opacities compared to 11/13/2022 concerning for an atypical infectious or inflammatory process in the appropriate clinical context. Recommend attention on follow-up to ensure resolution.
--- NOTE | ~2022-11-15 | CT_ITS ---
EXAMINATION: CT CHEST WITHOUT CONTRAST CLINICAL INFORMATION: SOB COMPARISON: Chest x-ray 11/18/2022 TECHNIQUE: Multidetector volumetric CT imaging of the chest was done. Axial MIP volume rendering provided. Sagittal and coronal reformatted images were obtained. This CT examination was performed using dose optimization techniques as appropriate, variously including the following: *Automated exposure control *Adjustment of mA and/or kV according to patient size (this includes techniques or standardized protocols for targeted exams where dose is matched to indication/reason for exam; i.e. 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 LUNGS: The lungs are hypoexpanded with patchy atelectatic changes in both lung bases, right upper lobe, right middle lobe and lingula. No pulmonary nodule, mass or pneumonia seen. MEDIASTINUM: The thyroid lobes are symmetric and normal. The central trachea and the bronchi widely patent. Heart size and the great vessels are normal caliber. No pericardial effusion seen. No abnormal mediastinal lymph nodes. CORONARY ARTERY CALCIFICATION: None visualized on this study. PLEURA: There is no pleural effusion. No pleural mass or thickening. AXILLA: No lymphadenopathy. UPPER ABDOMEN: Visualized liver, spleen, pancreas and bilateral adrenal glands unremarkable. No radiopaque gallstones or wall thickening seen. OSSEOUS STRUCTURES: No aggressive lytic or sclerotic process seen. There is moderate spondylosis dorsal spine. CT/CT chest wo IV con IMPRESSION: 1. Hypoexpanded lungs with patchy atelectatic changes in both lung bases, right upper lobe, right middle lobe and lingula. 2. No pulmonary nodule, mass or consolidation seen. 3. No abnormal mediastinal or axillary lymphadenopathy. Fleischner guidelines were followed.
--- NOTE | ~2022-11-15 | XR_ITS ---
EXAMINATION: XR CHEST CLINICAL INFORMATION: Dyspnea. Follow-up pneumonia. COMPARISON: Previous chest x-ray most recent November 2022 TECHNIQUE: Frontal view of the chest was obtained. FINDINGS: The lung volumes are low. The cardiac and mediastinal contours are stable. There may be bronchial wall thickening. There is bilateral atelectasis or small infiltrates greatest at the lung bases. This appears increased from 11/15/2022 exam. No pleural effusion or pneumothorax. Degenerative changes of the spine. XR/XR chest 1V IMPRESSION: Low lung volumes. Bilateral atelectasis or small infiltrates increased from 11/15/2022 exam.
[2022-11-15 16:12] VITALS: BP 128/71; PULSE 95; RESP 17; TEMP 35.6; O2SAT 91; BMI 28.1
--- NOTE | 2022-11-15 16:14 | ED_ITS ---
HPI - SOB/Dyspnea General Chief Complaint: Dyspnea <BRY Epperson - Last Filed: 11/15/22 16:19> Stated Complaint: sob, coughing <BRY Epperson - Last Filed: 11/15/22 16:19> Time Seen by Provider: 11/15/22 16:43 <BRY Epperson - Last Filed: 11/15/22 16:19> Source: patient <Parker Lane MD - Last Filed: 11/15/22 20:49> Mode of arrival: ambulatory <Parker Lane MD - Last Filed: 11/15/22 20:49> Limitations: no limitations <Parker Lane MD - Last Filed: 11/15/22 20:49> History of Present Illness HPI Narrative: 56-year-old male with diabetes, hypertension, hypercholesterolemia, no previous pulmonary disease presents with shortness breath, cough. Patient was seen in the emergency department a few days ago. He was treated with cough s uppressant medications. Since then he has developed increasing cough that is been nonproductive in nature. Has a pleuritic chest pain worse with coughing. The pain is substernal. Does not radiate. It is not associated with exertion. He also describes moderate shortness of breast worth with exertion. He denies any fevers or chills. He does advocate that he has nasal congestion. Cough suppressant medication is not improved his symptoms. <Parker Lane MD - Last Fi led: 11/15/22 20:49> Related Data Home Medications: Home Medications Medication Instructions Recorded Confirmed metformin 500 mg tablet,extended 2 tab PO BID 12/08/21 04/10/22 release 24 hr dulaglutide 1.5 mg/0.5 mL 1.5 mg subcut FR@0900 04/10/22 04/10/22 subcutaneous pen injector (Trulicity) Previous Rx's Medication Instructions Recorded aripiprazole 2 mg tablet (Abilify) 2 mg PO DAILY #30 tabs 03/14/22 bupropion HCl 150 mg 24 hr tablet, 1 tab PO DAILY #30 tabs 03/14/22 extended release bupropion HCl 300 mg 24 hr tablet, 1 tab PO DAILY #30 tabs 03/14/22 extended release metoprolol tartrate 25 mg tablet 25 mg PO BID #60 tabs 03/14/22 sitagliptin phosphate 50 mg tablet 50 mg PO DAILY #30 tabs 03/14/22 (Januvia) gentamicin 0.1 % topical ointment 1 appl topical QID #30 grams 03/28/22 valsartan 80 mg tablet 160 mg PO BID #30 tabs 04/29/22 benzonatate 100 mg capsule 100 mg PO TID PRN cough #20 caps 11/13/22 olopatadine 0.1 % eye drops 1 drp ophthalmic (eye) BID #5 mL 11/13/22 (Pataday Twice Daily Relief) <BRY Epperson - Last Filed: 11/15/22 16:19> Allergies/Adverse Reactions: Allergies Allergy/AdvReac Type Severity Reaction Status Date / Time codeine [CODEINE] Allergy Unknown delayed Verified 02/07/22 09:46 responses 02/24/17 <BRY Epperson - Last Filed: 11/15/22 16:19> [facility] Past Medical History Medical History: Medical History Depression Diabetic foot ulcer HTN (hypertension) LBBB (left bundle branch block) Osteomyelitis Preop cardiovascular exam Suicidal ideation Type 2 diabetes mellitus with foot ulcer <BRY Epperson - Last Filed: 11/15/22 16:19> Surgical History: Surgical History H/O: vasectomy <BRY Epperson - Last Filed: 11/15/22 16:19> Family History Family History: Family History Father Neck malignant neoplasm <BRY Epperson - Last Filed: 11/15/22 16:19> Social History Social History: Social History Household Members: Spouse and Children Housing: House Do you presently have visiting nurse or other home services: No Alcohol intake: current Alcohol intake frequency: holidays/special occasions only Patient Tobacco Use Status: Never used Tobacco Second Hand Smoke Exposure: No Substance Use Type: Marijuana Advance Directives: Yes Advance Directives Information Provided: No Advance Directives on File: No Advance Directives Date on File: 04/11/22 service: No Current occupational status: employed Sexual orientation: Straight/Heterosexual <BRY Epperson - Last Filed: 11/15/22 16:19> Physical Exam Vital Signs: Vital Signs: Last Vital Signs Temp 99.0 F 11/15/22 20:00 Pulse 98 11/15/22 20:00 Resp 14 11/15/22 20:00 BP 126/66 11/15/22 20:00 Pulse Ox 90 L 11/15/22 20:00 O2 Del Method Nasal Cannula 11/15/22 20:00 O2 Flow Rate 2 11/15/22 20:00 BMI result Body Mass Index 28.1 <BRY Epperson - Last Filed: 11/15/22 16:19> Vital Signs: Last Vital Signs Temp 99.0 F 11/15/22 20:00 Pulse 98 11/15/22 20:00 Resp 14 11/15/22 20:00 BP 126/66 11/15/22 20:00 Pulse Ox 90 L 11/15/22 20:00 O2 Del Method Nasal Cannula 11/15/22 20:00 O2 Flow Rate 2 11/15/22 20:00 BMI result Body Mass Index 28.1 <Parker Lane MD - Last Filed: 11/15/22 20:49> GEN: Well developed, no acute distress, alert, oriented HEENT: Normocephalic, atraumatic, normal external ears, nose appears normal, no oropharyngeal edema or exudates Eyes: Normal to appearance Neck: Supple, no lymphadenopathy Respiratory: Bilateral crackles throughout all lung ring, decreased breath sounds, no wheezing or stridor Cardiovascular: Regular rate and rhythm, no murmurs rubs or gallops Abdomen: Soft, nontender, nondistended, no guarding, no rebound Back: No CVA tenderness Extremities: No clubbing cyanosis or edema Neurologic: No focal neurologic deficits, cranial nerves 2-12 intact, strength is 5/5 bilaterally Skin: No rash <Parker Lane MD - Last Filed: 11/15/22 20:49> Course Course Course Narrative: RME - ?56-year-old male with history of T2DM, HTN, LBBB who presents to the ER for evaluation of worsening cough and SOB for the last week. SOB much wor se with exertion. His was recently sick with a cough/cold from their grandchild that lasted 2 weeks. He states the cough is keeping him up at night. He has chest discomfort with coughing only. No pulmonary history, nonsmoker. In triage patient's SpO2 90%. LS diminished throughout. Afebrile. Plan: repeat CXR, lab workup, viral swabs. <BRY Epperson - Last Filed: 11/15/22 16:19> Reevaluation(s) Reevaluation #1: patient will be admitted. likely atypical pneumonia with multifocal infiltrates. has new oxygen requirement. <Parker Lane MD - Last Filed: 11/15/22 20:49> Time: 20:49 <Parker Lane MD - Last Filed: 11/15/22 20:49> Medications Administered Generic Name Dose Route Start Last Admin Trade Name Freq PRN Reason Stop Dose Admin Azithromycin 500 mg/ Sodium 250 mls @ 125 mls/hr 11/15/22 18:57 11/15/22 19:44 Chloride IV 11/15/22 20:56 125 mls/hr ONCE ONE Administration Discontinued Medications Generic Name Dose Route Start Last Admin Trade Name Freq PRN Reason Stop Dose Admin Sodium Chloride 1,000 mls @ 999 mls/hr 11/15/22 17:45 11/15/22 19:19 Ns IV 11/15/22 18:45 Infused .Q1H1M MICHELLE Infusion Ceftriaxone Sodium 1 gm/ 50 mls @ 100 mls/hr 11/15/22 18:57 11/15/22 19:45 Sodium Chloride IV 11/15/22 19:26 Infused ONCE ONE Infusion <BRY Epperson - Last Filed: 11/15/22 16:19> Medications Administered Generic Name Dose Route Start Last Admin Trade Name Freq PRN Reason Stop Dose Admin Azithromycin 500 mg/ Sodium 250 mls @ 125 mls/hr 11/15/22 18:57 11/15/22 19:44 Chloride IV 11/15/22 20:56 125 mls/hr ONCE ONE Administration Discontinued Medications Generic Name Dose Route Start Last Admin Trade Name Freq PRN Reason Stop Dose Admin Sodium Chloride 1,000 mls @ 999 mls/hr 11/15/22 17:45 11/15/22 19:19 Ns IV 11/15/22 18:45 Infused .Q1H1M MICHELLE Infusion Ceftriaxone Sodium 1 gm/ 50 mls @ 100 mls/hr 11/15/22 18:57 11/15/22 19:45 Sodium Chloride IV 11/15/22 19:26 Infused ONCE ONE Infusion <Parker Lane MD - Last Filed: 11/15/22 20:49> Medical Decision Making Medical Decision Making [facility] Narrative: 56-year-old male with hypertension, diabetes, hypercholesterolemia presents with increasing shortness breath, cough and pleuritic-type chest pain. His lungs revealed bilateral crackles throughout all lung ring with decreased breath sounds as well. Chest x-ray will be ordered as I suspected this is either CHF versus multifocal pneumonia. Patient will have routine laboratory a nalysis. Patient will likely require antibiotics. He is hypoxic and will likely require not only supplemental oxygenation but also admission to the hospital. <Parker Lane MD - Last Filed: 11/15/22 20:49> Differential Diagnosis Differential Diagnoses: The differential diagnosis associated with the presentation includes (Pneumonia, bronchitis, viral syndrome, CHF) <Parker Lane MD - Last Filed: 11/15/22 20:49> Atypical pneumonia <Parker Lane MD - Last Filed: 11/15/22 20:49> Admission/Observation Consideration of admission/observation: Escalation of care including admission/observation considered (Due to hypoxia patchy infiltrates) <Parker Lane MD - Last Filed: 11/15/22 20:49> Lab Data [facility] Lab Attestation statement: I reviewed the patient's lab results. <Parker Lane MD - Last Filed: 11/15/22 20:49> Result Diagrams: 11/15/22 16:39 11/15/22 16:39 <BRY Epperson - Last Filed: 11/15/22 16:19> Labs: Lab Results 11/15/22 11/15/22 11/15/22 Range/Units 16:39 16:39 16:39 WBC (4.8-10.8) X10*3/uL RBC (4.60-5.80) X10*6/uL Hgb (14.0-18.0) g/dl Hct (42.0-52.0) % MCV (80.0-98.0) fL MCH (27.0-33.0) pg MCHC (31.0-36.0) g/dl RDW (11.0-16.0) % Plt Count (160-400) X10*3/uL MPV (9.4-12.4) fL Immature Gran % (Auto) Neut % (Auto) Lymph % (Auto) [place] % (Auto) Eos % (Auto) Baso % (Auto) Lymph # (Auto) [place] # (Auto) Eos # (Auto) Baso # (Auto) Abs Immat Gran (auto) Absolute Neuts (auto) Absolute Nucleated RBC (0.0-0.012) X10*3/uL Nucleated RBC % (auto) (0.0-0.2) /100WBC Neutrophils % (Manual) (45-73) % Band Neutrophils % (3-5) % Lymphocytes % (Manual) (20-40) % Atypical Lymphs % (Man) (0-6) % Monocytes % (Manual) (2-11) % Eosinophils % (Manual) (0-4) % Abs Neuts (Manual) (2.0-8.3) X10*3/uL Lymphocytes # (Manual) (1.2-4.9) X10*3/uL Atyp Lymphs # (Manual) x10*3/uL Monocytes # (Manual) (0.1-1.2) X10*3/uL Eosinophils # (Manual) (0.0-0.4) X10*3/uL Dohle Bodies Platelet Estimate (NORMAL) Large Platelets Plt Morphology Comment RBC Morphology Microcytosis /OIF Tear Drop Cells /OIF [place] Cells /OIF Sodium 142 (135-145) mmol/L Potassium 4.2 (3.3-5.1) mmol/L Chloride 106 (96-108) mmol/L Carbon Dioxide 27 (22-29) mmol/L Anion Gap 13 (12-20) BUN 21 H (9-16) mg/dL Creatinine 1.19 (0.5-1.4) mg/dL Estim Creat Clear Calc 72.2 Estimated GFR > 60 Random Glucose 207 H (60-115) mg/dL Lactic Acid 2.2 H* (0.5-2.0) mmol/L Lactic Acid F/U @ 2Hr (0.5-2.0) mmol/L Calcium 9.0 D (8.4-10.2) mg/dL Magnesium 2.3 (1.6-2.6) mg/dL Total Bilirubin 0.5 (0.0-1.0) mg/dL Direct Bilirubin 0.2 (0.0-0.5) mg/dL AST 23 (5-37) U/L ALT 16 (0-40) U/L Alkaline Phosphatase 102 (39-117) U/L Total Protein 6.4 L (6.5-8.0) g/dL Albumin 3.5 (3.5-5.0) g/dL Influenza Type A (PCR) NEGATIVE (Negative) Influenza Type B (PCR) NEGATIVE (Negative) RSV RNA Qual (PCR) NEGATIVE (Negative) SARS-CoV-2 RNA (RT-PCR) NEGATIVE (Negative) 11/15/22 11/15/22 11/15/22 Range/Units 19:56 19:56 19:56 WBC 9.6 (4.8-10.8) X10*3/uL RBC 4.14 L D (4.60-5.80) X10*6/uL Hgb 11.9 L (14.0-18.0) g/dl Hct 38.1 L (42.0-52.0) % MCV 92.0 (80.0-98.0) fL MCH 28.7 (27.0-33.0) pg MCHC 31.2 (31.0-36.0) g/dl RDW 13.4 (11.0-16.0) % Plt Count 258 (160-400) X10*3/uL MPV 10.3 (9.4-12.4) fL Immature Gran % (Auto) Cancelled Neut % (Auto) Cancelled Lymph % (Auto) Cancelled [place] % (Auto) Cancelled Eos % (Auto) Cancelled Baso % (Auto) Cancelled Lymph # (Auto) Cancelled [place] # (Auto) Cancelled Eos # (Auto) Cancelled Baso # (Auto) Cancelled Abs Immat Gran (auto) Cancelled Absolute Neuts (auto) Cancelled Absolute Nucleated RBC 0.000 (0.0-0.012) X10*3/uL Nucleated RBC % (auto) 0.0 (0.0-0.2) /100WBC Neutrophils % (Manual) 54 (45-73) % Band Neutrophils % 6 H (3-5) % Lymphocytes % (Manual) 23 (20-40) % Atypical Lymphs % (Man) 5 (0-6) % Monocytes % (Manual) 10 (2-11) % Eosinophils % (Manual) 2 (0-4) % Abs Neuts (Manual) 5.8 (2.0-8.3) X10*3/uL Lymphocytes # (Manual) 2.2 (1.2-4.9) X10*3/uL Atyp Lymphs # (Manual) 0.5 x10*3/uL Monocytes # (Manual) 1.0 (0.1-1.2) X10*3/uL Eosinophils # (Manual) 0.2 (0.0-0.4) X10*3/uL Dohle Bodies PRESENT Platelet Estimate NORMAL (NORMAL) Large Platelets PRESENT Plt Morphology Comment NOTED RBC Morphology NOTED Microcytosis 1+ (5-14) /OIF Tear Drop Cells 1+ (0-2) /OIF [place] Cells 1+ (0-2) /OIF Sodium (135-145) mmol/L Potassium (3.3-5.1) mmol/L Chloride (96-108) mmol/L Carbon Dioxide (22-29) mmol/L Anion Gap (12-20) BUN (9-16) mg/dL Creatinine (0.5-1.4) mg/dL Estim Creat Clear Calc Estimated GFR Random Glucose (60-115) mg/dL Lactic Acid 1.2 (0.5-2.0) mmol/L Lactic Acid F/U @ 2Hr 1.3 (0.5-2.0) mmol/L Calcium (8.4-10.2) mg/dL Magnesium (1.6-2.6) mg/dL Total Bilirubin (0.0-1.0) mg/dL Direct Bilirubin (0.0-0.5) mg/dL AST (5-37) U/L ALT (0-40) U/L Alkaline Phosphatase (39-117) U/L Total Protein (6.5-8.0) g/dL Albumin (3.5-5.0) g/dL Influenza Type A (PCR) (Negative) Influenza Type B (PCR) (Negative) RSV RNA Qual (PCR) (Negative) SARS-CoV-2 RNA (RT-PCR) (Negative) <BRY Epperson Last Filed: 11/15/22 16:19> Lab Results 11/15/22 11/15/22 11/15/22 Range/Units 16:39 16:39 16:39 WBC (4.8-10.8) X10*3/uL RBC (4.60-5.80) X10*6/uL Hgb (14.0-18.0) g/dl Hct (42.0-52.0) % MCV (80.0-98.0) fL MCH (27.0-33.0) pg MCHC (31.0-36.0) g/dl RDW (11.0-16.0) % Plt Count (160-400) X10*3/uL MPV (9.4-12.4) fL Immature Gran % (Auto) Neut % (Auto) Lymph % (Auto) [place] % (Auto) Eos % (Auto) Baso % (Auto) Lymph # (Auto) [place] # (Auto) Eos # (Auto) Baso # (Auto) Abs Immat Gran (auto) Absolute Neuts (auto) Absolute Nucleated RBC (0.0-0.012) X10*3/uL Nucleated RBC % (auto) (0.0-0.2) /100WBC Neutrophils % (Manual) (45-73) % Band Neutrophils % (3-5) % Lymphocytes % (Manual) (20-40) % Atypical Lymphs % (Man) (0-6) % Monocytes % (Manual) (2-11) % Eosinophils % (Manual) (0-4) % Abs Neuts (Manual) (2.0-8.3) X10*3/uL Lymphocytes # (Manual) (1.2-4.9) X10*3/uL Atyp Lymphs # (Manual) x10*3/uL Monocytes # (Manual) (0.1-1.2) X10*3/uL Eosinophils # (Manual) (0.0-0.4) X10*3/uL Dohle Bodies Platelet Estimate (NORMAL) Large Platelets Plt Morphology Comment RBC Morphology Microcytosis /OIF Tear Drop Cells /OIF [place] Cells /OIF Sodium 142 (135-145) mmol/L Potassium 4.2 (3.3-5.1) mmol/L Chloride 106 (96-108) mmol/L Carbon Dioxide 27 (22-29) mmol/L Anion Gap 13 (12-20) BUN 21 H (9-16) mg/dL Creatinine 1.19 (0.5-1.4) mg/dL Estim Creat Clear Calc 72.2 Estimated GFR > 60 Random Glucose 207 H (60-115) mg/dL Lactic Acid 2.2 H* (0.5-2.0) mmol/L Lactic Acid F/U @ 2Hr (0.5-2.0) mmol/L Calcium 9.0 D (8.4-10.2) mg/dL Magnesium 2.3 (1.6-2.6) mg/dL Total Bilirubin 0.5 (0.0-1.0) mg/dL Direct Bilirubin 0.2 (0.0-0.5) mg/dL AST 23 (5-37) U/L ALT 16 (0-40) U/L Alkaline Phosphatase 102 (39-117) U/L Total Protein 6.4 L (6.5-8.0) g/dL Albumin 3.5 (3.5-5.0) g/dL Influenza Type A (PCR) NEGATIVE (Negative) Influenza Type B (PCR) NEGATIVE (Negative) RSV RNA Qual (PCR) NEGATIVE (Negative) SARS-CoV-2 RNA (RT-PCR) NEGATIVE (Negative) 11/15/22 11/15/22 11/15/22 Range/Units 19:56 19:56 19:56 WBC 9.6 (4.8-10.8) X10*3/uL RBC 4.14 L D (4.60-5.80) X10*6/uL Hgb 11.9 L (14.0-18.0) g/dl Hct 38.1 L (42.0-52.0) % MCV 92.0 (80.0-98.0) fL MCH 28.7 (27.0-33.0) pg MCHC 31.2 (31.0-36.0) g/dl RDW 13.4 (11.0-16.0) % Plt Count 258 (160-400) X10*3/uL MPV 10.3 (9.4-12.4) fL Immature Gran % (Auto) Cancelled Neut % (Auto) Cancelled Lymph % (Auto) Cancelled [place] % (Auto) Cancelled Eos % (Auto) Cancelled Baso % (Auto) Cancelled Lymph # (Auto) Cancelled [place] # (Auto) Cancelled Eos # (Auto) Cancelled Baso # (Auto) Cancelled Abs Immat Gran (auto) Cancelled Absolute Neuts (auto) Cancelled Absolute Nucleated RBC 0.000 (0.0-0.012) X10*3/uL Nucleated RBC % (auto) 0.0 (0.0-0.2) /100WBC Neutrophils % (Manual) 54 (45-73) % Band Neutrophils % 6 H (3-5) % Lymphocytes % (Manual) 23 (20-40) % Atypical Lymphs % (Man) 5 (0-6) % Monocytes % (Manual) 10 (2-11) % Eosinophils % (Manual) 2 (0-4) % Abs Neuts (Manual) 5.8 (2.0-8.3) X10*3/uL Lymphocytes # (Manual) 2.2 (1.2-4.9) X10*3/uL Atyp Lymphs # (Manual) 0.5 x10*3/uL Monocytes # (Manual) 1.0 (0.1-1.2) X10*3/uL Eosinophils # (Manual) 0.2 (0.0-0.4) X10*3/uL Dohle Bodies PRESENT Platelet Estimate NORMAL (NORMAL) Large Platelets PRESENT Plt Morphology Comment NOTED RBC Morphology NOTED Microcytosis 1+ (5-14) /OIF Tear Drop Cells 1+ (0-2) /OIF [place] Cells 1+ (0-2) /OIF Sodium (135-145) mmol/L Potassium (3.3-5.1) mmol/L Chloride (96-108) mmol/L Carbon Dioxide (22-29) mmol/L Anion Gap (12-20) BUN (9-16) mg/dL Creatinine (0.5-1.4) mg/dL Estim Creat Clear Calc Estimated GFR Random Glucose (60-115) mg/dL Lactic Acid 1.2 (0.5-2.0) mmol/L Lactic Acid F/U @ 2Hr 1.3 (0.5-2.0) mmol/L Calcium (8.4-10.2) mg/dL Magnesium (1.6-2.6) mg/dL Total Bilirubin (0.0-1.0) mg/dL Direct Bilirubin (0.0-0.5) mg/dL AST (5-37) U/L ALT (0-40) U/L Alkaline Phosphatase (39-117) U/L Total Protein (6.5-8.0) g/dL Albumin (3.5-5.0) g/dL Influenza Type A (PCR) (Negative) Influenza Type B (PCR) (Negative) RSV RNA Qual (PCR) (Negative) SARS-CoV-2 RNA (RT-PCR) (Negative) <Parker Lane MD - Last Filed: 11/15/22 20:49> Independent Interpretation I performed an independent interpretation of an: EKG (Normal sinus rhythm heart rate 95, left bundle-branch block, no acute ST elevations depressions, no significant changes compared to April 21, 2022) and Plain X-Ray (Bilateral patchy infiltrates, possible retrocardiac infiltrate, no pleural effusion) <Parker Lane MD - Last Filed: 11/15/22 20:49> Prescription Management I considered prescription management with: Antibiotic <Parker Lane MD - Last Filed: 11/15/22 20:49> Chronic Conditions Patient?s care impacted by: Diabetes and Hypertension <Parker Lane MD - Last Filed: 11/15/22 20:49> Discharge Plan Discharge Clinical Impression: Community acquired pneumonia <BRY Epperson - Last Filed: 11/15/22 16:19> Patient Disposition: Admitted As Inpatient <BRY Epperson - Last Filed: 11/15/22 16:19> Prescriptions: No Action valsartan 80 mg tablet 160 mg PO BID Qty: 30 0RF metformin 500 mg tablet extended release 24 hr 2 tab PO BID metoprolol tartrate 25 mg Tablet 25 mg PO BID Qty: 60 0RF Protocol: Hold for SBP/HR < HOLD for SBP < : 90 HOLD for HR < : 60 bupropion HCl 300 mg tablet extended release 24 hr 1 tab PO DAILY Qty: 30 0RF bupropion HCl 150 mg tablet extended release 24 hr 1 tab PO DAILY Qty: 30 0RF Januvia 50 mg tablet 50 mg PO DAILY Qty: 30 0RF aripiprazole [Abilify] 2 mg tablet 2 mg PO DAILY Qty: 30 0RF Trulicity 1.5 mg/0.5 mL pen injector 1.5 mg subcut FR@0900 gentamicin 0.1 % ointment 1 appl topical QID Qty: 30 1RF benzonatate 100 mg capsule 100 mg PO TID PRN (Reason: cough) Qty: 20 0RF olopatadine [Pataday Twice Daily Relief] 0.1 % drops 1 drp ophthalmic (eye) BID Qty: 5 0RF Rx Instructions: separate doses by at least 6-8 hours <BRY Epperson - Last Filed: 11/15/22 16:19>
--- NOTE | 2022-11-15 16:16 | ECG_ITS ---
Test Reason : sob Blood Pressure : / mmHG Vent. Rate : 095 BPM Atrial Rate : 095 BPM P-R Int : 138 ms QRS Dur : 142 ms QT Int : 402 ms P-R-T Axes : 031 006 093 degrees QTc Int : 505 ms Normal sinus rhythm Left bundle branch block Abnormal ECG When compared with ECG of 21-APR-2022 18:53, Left bundle branch block is now Present Referred By: Ronel Medina Electronically Signed By:ANNIE HINKLE MD
[2022-11-15 16:55] VITALS: BP 115/69; PULSE 97; RESP 20; TEMP 37; O2SAT 92
[2022-11-15 17:08] VITALS: RESP 22
[2022-11-15 17:21] LABS: Alanine Aminotransferase 16 U/L (0-40); Albumin Level 3.5 g/dL (3.5-5.0); Alkaline Phosphatase 102 U/L (39-117); Anion Gap 13 (12-20); Aspartate Amino Transferase 23 U/L (5-37); Bilirubin Direct 0.2 mg/dL (0.0-0.5); Bilirubin Total 0.5 mg/dL (0.0-1.0); Blood Urea Nitrogen 21 mg/dL (9-16); Carbon Dioxide 27 mmol/L (22-29); Chloride 106 mmol/L (96-108); Creatinine Clr Calc Pharmacy 72.2; Estimated Glomerular Filt Rate > 60; Glucose Random 207 mg/dL (60-115); Magnesium 2.3 mg/dL (1.6-2.6); Potassium 4.2 mmol/L (3.3-5.1); Sodium 142 mmol/L (135-145); Total Protein 6.4 g/dL (6.5-8.0)
[2022-11-15 17:26] LABS: Lactic Acid 2.2 mmol/L (0.5-2.0)
[2022-11-15 17:30] LABS: Influenza A PCR NEGATIVE (Negative); Influenza B PCR NEGATIVE (Negative); Resp Syncy Virus RNA Qual PCR NEGATIVE (Negative); SARS COV2 PCR INHOUSE NEGATIVE (Negative)
[2022-11-15] MEDS: 0.9 % Sodium Chloride 1,000 ML 999 ML IV (18:17)
[2022-11-15 18:46] LABS: Reflex Lactate? Lactic Acid Added
[2022-11-15] MEDS: cefTRIAXone sodium 1 GM in 0.9 % Sodium Chloride 50 ML IV (19:13)
[2022-11-15] MEDS: Azithromycin 500 MG in 0.9 % Sodium Chloride 250 ML 125 MG IV (19:44)
[2022-11-15 20:00] VITALS: BP 126/66; PULSE 98; RESP 14; TEMP 37.2; O2SAT 90
[2022-11-15 20:10] LABS: Hematocrit 38.1 % (42.0-52.0); Hemoglobin 11.9 g/dl (14.0-18.0); Mean Corpuscular HGB Conc 31.2 g/dl (31.0-36.0); Mean Corpuscular Hemoglobin 28.7 pg (27.0-33.0); Mean Platelet Volume 10.3 fL (9.4-12.4); Platelet Count 258 X10*3/uL (160-400); Red Blood Count 4.14 X10*6/uL (4.60-5.80); Red Cell Distribution Width 13.4 % (11.0-16.0)
[2022-11-15 20:13] LABS: WBC ABN SCTR FOR CBC 1; White Blood Count 9.6 X10*3/uL (4.8-10.8)
[2022-11-15 20:21] LABS: Lactic Acid 1.2 mmol/L (0.5-2.0); ~Lactic Acid-LAB USE ONLY 1.3 mmol/L (0.5-2.0)
--- NOTE | 2022-11-15 20:23 | PC.NURSE ---
this rn assumed care of pt @ 1900. pt medicated according to sep. pt calm and cooperative resting on stretcher. dr melchor at bedside
[2022-11-15 20:42] LABS: Atypical Lymph Absolute Manual 0.5 x10*3/uL; Atypical Lymphs Percent Manual 5 % (0-6); Band Neutrophils Percent 6 % (3-5); Eosinophils Absolute Manual 0.2 X10*3/uL (0.0-0.4); Eosinophils Percent Manual 2 % (0-4); Lymphocytes Absolute Manual 2.2 X10*3/uL (1.2-4.9); Lymphocytes Percent Manual 23 % (20-40); Monocytes Percent Manual 10 % (2-11); Neutrophils Absolute Manual 5.8 X10*3/uL (2.0-8.3); Neutrophils Percent Manual 54 % (45-73)
[2022-11-15 20:43] LABS: Microcytosis 1+ (5-14) /OIF; RBC Morphology NOTED
[2022-11-15 20:44] LABS: Burr Cells 1+ (0-2) /OIF; Dohle Bodies PRESENT; Large Platelet PRESENT; Platelet Estimate NORMAL (NORMAL); Platelet Morphology Comment NOTED; Tear Drop Cells 1+ (0-2) /OIF
[2022-11-15 21:14] LABS: B Type Natriuretic Peptide 64 pg/mL (<100)
--- NOTE | 2022-11-15 21:14 | P.HPHOSP_ITS ---
History of Present Illness Date of Service: 11/15/22 Chief Complaint: Cough 56-year-old male with past medical history of diabetes, hypertension, LBBB, [facility] complaining of cough and shortness of breath. Patient reports her symptoms started about a week ago, worsening cough, seen in the hospital on 11/13, given cough medication, no relief, returns today having worsening shortness of breath and cough. Patient reports chills, no fever, no orthopnea PND, chest wall pain from coughing, no nausea vomiting, no abdominal pain diarrhea constipation, no urinary symptoms and no lower extremity edema. Patient found to be hypoxic satting 90% on 3 L of oxygen, satting to 80% on room air upon minimal exertion Labs are significant for WBC count of 9.6, hemoglobin of 11.9, hematocrit of 30.1, lactic acid of 2.2 resolved after IV fluid to 1.3 COVID-19, influenza, RSV negative X-ray of the chest shows increased interstitial thickening and patchy opacities compared to 11/13 concerning for atypical pneumonia patient started on IV antibiotics or be admitted further management Review of Systems Review of Systems: Yes all other systems are reviewed and are negative FORMERLY [facility], [facility] Medical History Depression Diabetic foot ulcer HTN (hypertension) LBBB (left bundle branch block) Osteomyelitis Preop cardiovascular exam Suicidal ideation Type 2 diabetes mellitus with foot ulcer Family History Father Neck malignant neoplasm Surgical History H/O: vasectomy Social History Household Members: Spouse and Family Housing: House Do you presently have visiting nurse or other home services: No Alcohol intake: current Alcohol intake frequency: holidays/special occasions only Patient Tobacco Use Status: Never used Tobacco Second Hand Smoke Exposure: No Use of substances other than those prescribed or required for medical reasons: No Substance Use Type: Marijuana Have you been hit, kicked, punched, or otherwise hurt by someone within the past year? If so, by whom?: No Do you feel safe in your current relationship?: Yes Is there a partner from a previous relationship who is making you feel unsafe now?: No Are you made to feel afraid or neglected: No Advance Directives: Yes Advance Directives Information Provided: No Advance Directives on File: No Advance Directives Date on File: 04/11/22 Do you have thoughts of harming others: None Do you have a plan to hurt others: No Plan Recently lost weight without trying: No How much weight loss: Not applicable Eating poorly because of decreased appetite: No Nutrition screen score: 0 Nutrition Risks: No Nutritional Risk Poor oral hygiene: No service: No Current occupational status: employed Sexual orientation: Straight/Heterosexual Meds Allergies Allergy/AdvReac Type Severity Reaction Status Date / Time codeine [CODEINE] Allergy Unknown delayed Verified 02/07/22 09:46 responses 02/24/17 Home Medications Medication Instructions Recorded Confirmed Last Taken Type amlodipine 5 mg tablet 5 mg PO DAILY 11/15/22 11/15/22 11/15/22 History erythromycin 5 mg/gram (0.5 %) eye 1 appl ophthalmic (eye) QID 11/15/22 11/15/22 11/15/22 History ointment metformin 1,000 mg tablet,extended 1,000 mg PO BID 11/15/22 11/15/22 11/15/22 History release 24hr sitagliptin phosphate 50 mg tablet 50 mg PO DAILY 11/15/22 11/15/22 11/15/22 History (Januvia) valsartan 160 mg tablet 160 mg PO DAILY 11/15/22 11/15/22 11/15/22 History Physical Exam Vital Signs and Narrative: Vital Signs: Last Vital Signs Temp 99.0 F 11/15/22 20:00 Pulse 98 11/15/22 20:00 Resp 14 11/15/22 20:00 BP 126/66 11/15/22 20:00 Pulse Ox 90 L 11/15/22 20:00 O2 Del Method Nasal Cannula 11/15/22 20:00 O2 Flow Rate 2 11/15/22 20:00 BMI result Body Mass Index 28.1 Const: General: cooperative and no acute distress Orientation/consciousness: patient oriented x3 Eyes: General: appearance normal, both eyes and all related structures Resp: Other: coughing with minimal talking, crackles bilaterally Effort & Inspection: normal respiratory effort Cardio: Rate: regular rate Rhythm: regular rhythm GI: Palpation (GI): Soft to palpation Auscultation: normal bowel sounds Skin: General skin exam: no rashes or lesions noted Neuro: General: patient oriented x3 Cognition (Neuro): normal cognition Extrem: General: Yes normal to inspection and Yes no pedal edema Results Labs 11/15/22 19:56 11/15/22 16:39 Labs: Laboratory Results - last 24 hr 11/15/22 11/15/22 11/15/22 16:39 16:39 16:39 MCV MCH MCHC RDW Plt Count MPV Immature Gran % (Auto) Neut % (Auto) Lymph % (Auto) [place] % (Auto) Eos % (Auto) Baso % (Auto) Lymph # (Auto) [place] # (Auto) Eos # (Auto) Baso # (Auto) Abs Immat Gran (auto) Absolute Neuts (auto) Absolute Nucleated RBC Nucleated RBC % (auto) Neutrophils % (Manual) Band Neutrophils % Lymphocytes % (Manual) Atypical Lymphs % (Man) Monocytes % (Manual) Eosinophils % (Manual) Abs Neuts (Manual) Lymphocytes # (Manual) Atyp Lymphs # (Manual) Monocytes # (Manual) Eosinophils # (Manual) Dohle Bodies Platelet Estimate Large Platelets Plt Morphology Comment RBC Morphology Microcytosis Tear Drop Cells [place] Cells Anion Gap 13 Estim Creat Clear Calc 72.2 Estimated GFR > 60 Random Glucose 207 H Lactic Acid 2.2 H* Lactic Acid F/U @ 2Hr Calcium 9.0 D Magnesium 2.3 Total Bilirubin 0.5 Direct Bilirubin 0.2 AST 23 ALT 16 Alkaline Phosphatase 102 Total Protein 6.4 L Albumin 3.5 Influenza Type A (PCR) NEGATIVE Influenza Type B (PCR) NEGATIVE RSV RNA Qual (PCR) NEGATIVE SARS-CoV-2 RNA (RT-PCR) NEGATIVE 11/15/22 11/15/22 11/15/22 19:56 19:56 19:56 MCV 92.0 MCH 28.7 MCHC 31.2 RDW 13.4 Plt Count 258 MPV 10.3 Immature Gran % (Auto) Cancelled Neut % (Auto) Cancelled Lymph % (Auto) Cancelled [place] % (Auto) Cancelled Eos % (Auto) Cancelled Baso % (Auto) Cancelled Lymph # (Auto) Cancelled [place] # (Auto) Cancelled Eos # (Auto) Cancelled Baso # (Auto) Cancelled Abs Immat Gran (auto) Cancelled Absolute Neuts (auto) Cancelled Absolute Nucleated RBC 0.000 Nucleated RBC % (auto) 0.0 Neutrophils % (Manual) 54 Band Neutrophils % 6 H Lymphocytes % (Manual) 23 Atypical Lymphs % (Man) 5 Monocytes % (Manual) 10 Eosinophils % (Manual) 2 Abs Neuts (Manual) 5.8 Lymphocytes # (Manual) 2.2 Atyp Lymphs # (Manual) 0.5 Monocytes # (Manual) 1.0 Eosinophils # (Manual) 0.2 Dohle Bodies PRESENT Platelet Estimate NORMAL Large Platelets PRESENT Plt Morphology Comment NOTED RBC Morphology NOTED Microcytosis 1+ (5-14) Tear Drop Cells 1+ (0-2) [place] Cells 1+ (0-2) Anion Gap Estim Creat Clear Calc Estimated GFR Random Glucose Lactic Acid 1.2 Lactic Acid F/U @ 2Hr 1.3 Calcium Magnesium Total Bilirubin Direct Bilirubin AST ALT Alkaline Phosphatase Total Protein Albumin Influenza Type A (PCR) Influenza Type B (PCR) RSV RNA Qual (PCR) SARS-CoV-2 RNA (RT-PCR) Imaging Radiologist's Impressions: Impressions Chest X-Ray 11/15/22 17:55 IMPRESSION: Increased interstitial thickening and patchy opacities compared to 11/13/2022 concerning for an atypical infectious or inflammatory process in the appropriate clinical context. Recommend attention on follow-up to ensure resolution. Assessment and Plan (1) Community acquired pneumonia: Status: Acute (2) Acute respiratory failure with hypoxia: Status: Acute (3) Persistent cough: Status: Acute Plan 56-year-old male past medical history of hypertension, diabetes, presents to the hospital with complaints of cough, shortness of breath found to have pneumonia # community-acquired pneumonia - associated with hypoxia - bilateral infiltrate concerning for atypical injection - COVID-19, RSV and, influenza negative - will treat with IV antibiotics - follow cultures # acute hypoxic respiratory failure - secondary to pneumonia, CHF, versus PE less likely a - requiring 3 L of oxygen to maintain 90% on room air at rest dropping to 80% on minimal exertion - continue oxygen supplement - treat underlying pneumonia - monitor respiratory status # hypertension - stable - continue antihypertensive # diabetes - hold oral antihyperglycemics - start low-dose sliding scale insulin - diabetic diet # depression anxiety - continue mood stabilizers DVT prophylaxis: Lovenox given patient's need for oxygen supplement, in the setting of hypoxia, and IV antibiotics patient will require at minimum 2 nights inpatient hospital stay further management and monitoring Time Spent With Patient Time: Total time managing care of this patient today ____ minutes. Quality Stroke Does the patient have a stroke diagnosis?: No VTE Prior VTE?: No VTE Risk Level:: Medical - moderate - high VTE Device Contraindication: Treatment Not Indicated VTE Drug Contraindication: N/A - Med Ordered
--- NOTE | 2022-11-15 21:52 | PC.NURSE ---
pt ambulated to bathroom on room air. pt back to bed. after ambulation pt spo2 80% ra. pt placed back on 3lpm nc o2. dr ca made aware. no new orders
--- NOTE | 2022-11-15 21:54 | PC.NURSE ---
pt requested medication for cough. this rn made dr ca aware of this request. order placed for hydrocodone. this rn confirmed with pharmacy that pt is safe to get medication due to codeine allergy. per pt reaction to codeine is delayed reaction time. per pharmacy. pt is safe to get med
--- NOTE | 2022-11-15 21:57 | PHA.MEDREC ---
Pharmacy Consult ? Medication Reconciliation Pharmacy has completed the medication reconciliation. Pt had med list he was able to review with me to confirm meds.
[2022-11-15] MEDS: HYDROcodone/Homat 5/1.5/5 ML 5 ML SYRUP PO (22:51)
[2022-11-15] MEDS: Enoxaparin Sodium 40 MG/0.4 ML SYRINGE SUBCUT (22:52)
--- NOTE | 2022-11-15 23:54 | PC.NURSE ---
late entry- pt reports to this rn chest discomfort on L side. ekg orders placed and obtained. dr ca made aware. troponin order placed and drawn. ekg sent to dr ca
--- NOTE | 2022-11-15 23:55 | ECG_ITS ---
Test Reason : CHEST PAIN Blood Pressure : / mmHG Vent. Rate : 102 BPM Atrial Rate : 102 BPM P-R Int : 144 ms QRS Dur : 138 ms QT Int : 384 ms P-R-T Axes : 027 016 101 degrees QTc Int : 500 ms Sinus tachycardia Left bundle branch block Abnormal ECG When compared with ECG of 15-NOV-2022 16:21, No significant change was found Referred By: Katelyn Griffin Electronically Signed By:ANNIE HINKLE MD
[2022-11-16 01:25] LABS: Troponin-I High Sensitivity 3.5 ng/L (<3.5-35.0)
[2022-11-16 01:39] VITALS: BP 144/77; PULSE 97; RESP 18; TEMP 37.1; O2SAT 95
[2022-11-16] MEDS: 0.9 % Sodium Chloride Flush 3 ML SYRINGE IVFLUSH ×4 (01:39→19:44)
[2022-11-16] MEDS: Acetaminophen 325 MG TABLET 650 MG PO ×3 (01:56→21:18)
[2022-11-16 02:35] VITALS: BMI 29.3
[2022-11-16 03:48] VITALS: BP 133/77; PULSE 93; RESP 16; TEMP 36.6; O2SAT 91
--- NOTE | 2022-11-16 04:18 | PC.NURSE ---
Pt arrived from the ED at 0338, alert and oriented, still verbalized SOB with exertion, LS are rhonchorous, tolerating O2 at 3Lmin via NC, noted with strong non prod cough that causes his chest pain, plan of care instructed, use of callbell and other safety measures encouraged.
[2022-11-16 06:37] LABS: Hematocrit 38.5 % (42.0-52.0); Hemoglobin 12.1 g/dl (14.0-18.0); Mean Corpuscular HGB Conc 31.4 g/dl (31.0-36.0); Mean Corpuscular Hemoglobin 28.9 pg (27.0-33.0); Mean Corpuscular Volume 91.9 fL (80.0-98.0); Mean Platelet Volume 10.4 fL (9.4-12.4); Platelet Count 269 X10*3/uL (160-400); Red Blood Count 4.19 X10*6/uL (4.60-5.80); Red Cell Distribution Width 13.5 % (11.0-16.0); White Blood Count 9.1 X10*3/uL (4.8-10.8)
[2022-11-16 06:52] LABS: Anion Gap 13 (12-20); Blood Urea Nitrogen 19 mg/dL (9-16); Calcium 8.7 mg/dL (8.4-10.2); Carbon Dioxide 27 mmol/L (22-29); Chloride 107 mmol/L (96-108); Creatinine Clr Calc Pharmacy 86.7; Estimated Glomerular Filt Rate > 60; Glucose Random 266 mg/dL (60-115); Potassium 4.8 mmol/L (3.3-5.1); Sodium 142 mmol/L (135-145)
[2022-11-16 07:11] LABS: Band Neutrophils Percent 11 % (3-5); Eosinophils Absolute Manual 0.1 X10*3/uL (0.0-0.4); Eosinophils Percent Manual 1 % (0-4); Lymphocytes Absolute Manual 1.5 X10*3/uL (1.2-4.9); Monocytes Absolute Manual 1.1 X10*3/uL (0.1-1.2); Monocytes Percent Manual 12 % (2-11); Neutrophils Absolute Manual 6.4 X10*3/uL (2.0-8.3); Neutrophils Percent Manual 59 % (45-73)
[2022-11-16 07:13] VITALS: BP 150/79; PULSE 93; RESP 16; TEMP 36.4; O2SAT 94
[2022-11-16 07:13] LABS: RBC Morphology NOTED
[2022-11-16 07:18] LABS: Burr Cells 1+ (0-2) /OIF; Polychromasia 1+ (0-2) /OIF
[2022-11-16 07:19] LABS: Dohle Bodies PRESENT
[2022-11-16 07:21] LABS: Large Platelet PRESENT; Lymphocytes Percent Manual 16 % (20-40); Platelet Estimate NORMAL (NORMAL); Platelet Morphology Comment NOTED
[2022-11-16 07:22] LABS: Atypical Lymph Absolute Manual 0.1 x10*3/uL; Atypical Lymphs Percent Manual 1 % (0-6)
[2022-11-16 07:48] LABS: Glucose, Whole Blood 215 mg/dL (60-115)
[2022-11-16] MEDS: Valsartan 160 MG TABLET PO (07:51)
[2022-11-16] MEDS: buPROPion HCl XL 150 MG TAB.ER.24H PO (07:51)
[2022-11-16] MEDS: amLODIPine Besylate 5 MG TABLET PO (07:51)
[2022-11-16] MEDS: buPROPion HCl XL 300 MG TAB.ER.24H PO (07:51)
[2022-11-16] MEDS: ARIPiprazole 2 MG TABLET PO (07:51)
[2022-11-16] MEDS: Insulin Lispro 100 UNIT/ML 3 ML VIAL SUBCUT ×4 (07:52→21:17)
--- NOTE | 2022-11-16 09:48 | P.PNIM_ITS ---
Subjective Subjective Date of Service: 11/16/22 Interval History: seen and evaluated this morning feeling SOB and having cough On O2 supplement No reported overnight events Review of Systems Review of Systems: Yes all other systems are reviewed and are negative Physical Exam Vital Signs: Vital Signs: Last Vital Signs Temp 97.5 F 11/16/22 07:13 Pulse 93 11/16/22 07:13 Resp 16 11/16/22 07:13 BP 150/79 H 11/16/22 07:13 Pulse Ox 94 11/16/22 07:13 O2 Del Method Nasal Cannula 11/16/22 07:13 O2 Flow Rate 4 11/16/22 07:13 BMI result Body Mass Index 29.3 Const: Other: Constitutional : Awake, interactive, not in distress Neck : Normal inspection, Supple Cardiovascular : RRR, no JVP, no lower extremity edema Respiratory : fair bilateral air entry, basal bilateral fine crackles, no wheezes Gastrointestinal: soft, lax, Normal bowel sounds, Non tender Skin : Warm, Dry Neurological : Alert & oriented x3, No focal deficit Objective Data Active Medications Acetaminophen (Acetaminophen 325 Mg Tablet) 650 mg PO Q6H PRN PRN Reason: Pain, Mild (Pain Scale 1-3) Last Admin: 11/16/22 01:56 Dose: 650 mg Documented By: KAMILAH Amlodipine Besylate (Amlodipine Besylate 5 Mg Tablet) 5 mg PO DAILY [facility]; Protocol Last Admin: 11/16/22 07:51 Dose: 5 mg Documented By: USMAN Aripiprazole (Aripiprazole 2 Mg Tablet) 2 mg PO DAILY [facility] Last Admin: 11/16/22 07:51 Dose: 2 mg Documented By: USMAN Azithromycin (Azithromycin 500 Mg Tablet) 500 mg PO Q24H [facility] Bupropion HCl (Bupropion Hcl Xl 150 Mg Tab.Er.24h) 150 mg PO DAILY [facility] Last Admin: 11/16/22 07:51 Dose: 150 mg Documented By: USMAN Bupropion HCl (Bupropion Hcl Xl 300 Mg Tab.Er.24h) 300 mg PO DAILY [facility] Last Admin: 11/16/22 07:51 Dose: 300 mg Documented By: USMAN Docusate Sodium (Docusate Sodium 100 Mg Capsule) 100 mg PO DAILY PRN PRN Reason: Constipation Enoxaparin Sodium (Enoxaparin Sodium 40 Mg/0.4 Ml Syringe) 40 mg SUBCUT Q24H [facility] Last Admin: 11/15/22 22:52 Dose: 40 mg Documented By: KAMILAH Glucose (Glucose Gel 15 Gm Gel..Gram.) 15 gm PO Q15M PRN; Protocol PRN Reason: per Hypoglycemia Standing Ord. Hydrocodone Bit/Homatropine Methylb (Hydrocodone/Homat 5/1.5/5 Ml 5 Ml Syrup) 5 ml PO Q4H PRN PRN Reason: cough Last Admin: 11/15/22 22:51 Dose: 5 ml Documented By: KAMILAH Ceftriaxone Sodium 1 gm/ (Sodium Chloride) 50 mls @ 100 mls/hr IV Q24H [facility] Dextrose (D10) 250 mls @ 750 mls/hr IV Q15M PRN; Protocol PRN Reason: per Hypoglycemia Standing Ord. Insulin Human Lispro (Insulin Lispro 100 Unit/Ml 3 Ml Vial) 0 unit SUBCUT QIDACHS [facility]; Protocol Last Admin: 11/16/22 07:52 Dose: 4 unit Documented By: USMAN Non-Formulary Medication (Olopatadine [Pataday Twice Daily Relief]) 1 drop EYE- BOTH BID [facility] Ondansetron HCl (Ondansetron Hcl 4 Mg/2 Ml Vial) 4 mg IVPUSH Q8H PRN PRN Reason: Nausea and Vomiting Pharmacy Consult (Consult Rx Perform Med Rec) 1 each MISCELLANE ONCE PRN PRN Reason: Consult order Sodium Chloride (0.9 % Sodium Chloride Flush 3 Ml Syringe) 3 ml IVFLUSH QSHIFT [facility] Last Admin: 11/16/22 07:51 Dose: 3 ml Documented By: USMAN Valsartan (Valsartan 160 Mg Tablet) 160 mg PO DAILY [facility]; Protocol Last Admin: 11/16/22 07:51 Dose: 160 mg Documented By: USMAN Labs 11/16/22 06:15 11/16/22 06:15 Labs: Laboratory Results - last 24 hr 11/15/22 11/15/22 11/15/22 16:39 16:39 16:39 MCV MCH MCHC RDW Plt Count MPV Immature Gran % (Auto) Neut % (Auto) Lymph % (Auto) [place] % (Auto) Eos % (Auto) Baso % (Auto) Lymph # (Auto) [place] # (Auto) Eos # (Auto) Baso # (Auto) Abs Immat Gran (auto) Absolute Neuts (auto) Absolute Nucleated RBC Nucleated RBC % (auto) Neutrophils % (Manual) Band Neutrophils % Lymphocytes % (Manual) Atypical Lymphs % (Man) Monocytes % (Manual) Eosinophils % (Manual) Abs Neuts (Manual) Lymphocytes # (Manual) Atyp Lymphs # (Manual) Monocytes # (Manual) Eosinophils # (Manual) Dohle Bodies Platelet Estimate Large Platelets Plt Morphology Comment RBC Morphology Polychromasia Microcytosis Tear Drop Cells [place] Cells Anion Gap 13 Estim Creat Clear Calc 72.2 Estimated GFR > 60 POC Glucose Random Glucose 207 H Lactic Acid 2.2 H* Lactic Acid F/U @ 2Hr Calcium 9.0 D Magnesium 2.3 Total Bilirubin 0.5 Direct Bilirubin 0.2 AST 23 ALT 16 Alkaline Phosphatase 102 Troponin I High Sens B-Natriuretic Peptide Total Protein 6.4 L Albumin 3.5 Influenza Type A (PCR) NEGATIVE Influenza Type B (PCR) NEGATIVE RSV RNA Qual (PCR) NEGATIVE SARS-CoV-2 RNA (RT-PCR) NEGATIVE 11/15/22 11/15/22 11/15/22 19:56 19:56 19:56 MCV 92.0 MCH 28.7 MCHC 31.2 RDW 13.4 Plt Count 258 MPV 10.3 Immature Gran % (Auto) Cancelled Neut % (Auto) Cancelled Lymph % (Auto) Cancelled [place] % (Auto) Cancelled Eos % (Auto) Cancelled Baso % (Auto) Cancelled Lymph # (Auto) Cancelled [place] # (Auto) Cancelled Eos # (Auto) Cancelled Baso # (Auto) Cancelled Abs Immat Gran (auto) Cancelled Absolute Neuts (auto) Cancelled Absolute Nucleated RBC 0.000 Nucleated RBC % (auto) 0.0 Neutrophils % (Manual) 54 Band Neutrophils % 6 H Lymphocytes % (Manual) 23 Atypical Lymphs % (Man) 5 Monocytes % (Manual) 10 Eosinophils % (Manual) 2 Abs Neuts (Manual) 5.8 Lymphocytes # (Manual) 2.2 Atyp Lymphs # (Manual) 0.5 Monocytes # (Manual) 1.0 Eosinophils # (Manual) 0.2 Dohle Bodies PRESENT Platelet Estimate NORMAL Large Platelets PRESENT Plt Morphology Comment NOTED RBC Morphology NOTED Polychromasia Microcytosis 1+ (5-14) Tear Drop Cells 1+ (0-2) [place] Cells 1+ (0-2) Anion Gap Estim Creat Clear Calc Estimated GFR POC Glucose Random Glucose Lactic Acid 1.2 Lactic Acid F/U @ 2Hr 1.3 Calcium Magnesium Total Bilirubin Direct Bilirubin AST ALT Alkaline Phosphatase Troponin I High Sens B-Natriuretic Peptide Total Protein Albumin Influenza Type A (PCR) Influenza Type B (PCR) RSV RNA Qual (PCR) SARS-CoV-2 RNA (RT-PCR) 11/15/22 11/16/22 11/16/22 19:56 00:58 06:15 MCV 91.9 MCH 28.9 MCHC 31.4 RDW 13.5 Plt Count 269 MPV 10.4 Immature Gran % (Auto) Cancelled Neut % (Auto) Cancelled Lymph % (Auto) Cancelled [place] % (Auto) Cancelled Eos % (Auto) Cancelled Baso % (Auto) Cancelled Lymph # (Auto) Cancelled [place] # (Auto) Cancelled Eos # (Auto) Cancelled Baso # (Auto) Cancelled Abs Immat Gran (auto) Cancelled Absolute Neuts (auto) Cancelled Absolute Nucleated RBC 0.000 Nucleated RBC % (auto) 0.0 Neutrophils % (Manual) 59 Band Neutrophils % 11 H Lymphocytes % (Manual) 16 L Atypical Lymphs % (Man) 1 Monocytes % (Manual) 12 H Eosinophils % (Manual) 1 Abs Neuts (Manual) 6.4 Lymphocytes # (Manual) 1.5 Atyp Lymphs # (Manual) 0.1 Monocytes # (Manual) 1.1 Eosinophils # (Manual) 0.1 Dohle Bodies PRESENT Platelet Estimate NORMAL Large Platelets PRESENT Plt Morphology Comment NOTED RBC Morphology NOTED Polychromasia 1+ (0-2) Microcytosis Tear Drop Cells [place] Cells 1+ (0-2) Anion Gap Estim Creat Clear Calc Estimated GFR POC Glucose Random Glucose Lactic Acid Lactic Acid F/U @ 2Hr Calcium Magnesium Total Bilirubin Direct Bilirubin AST ALT Alkaline Phosphatase Troponin I High Sens 3.5 B-Natriuretic Peptide 64 Total Protein Albumin Influenza Type A (PCR) Influenza Type B (PCR) RSV RNA Qual (PCR) SARS-CoV-2 RNA (RT-PCR) 11/16/22 11/16/22 06:15 07:15 MCV MCH MCHC RDW Plt Count MPV Immature Gran % (Auto) Neut % (Auto) Lymph % (Auto) [place] % (Auto) Eos % (Auto) Baso % (Auto) Lymph # (Auto) [place] # (Auto) Eos # (Auto) Baso # (Auto) Abs Immat Gran (auto) Absolute Neuts (auto) Absolute Nucleated RBC Nucleated RBC % (auto) Neutrophils % (Manual) Band Neutrophils % Lymphocytes % (Manual) Atypical Lymphs % (Man) Monocytes % (Manual) Eosinophils % (Manual) Abs Neuts (Manual) Lymphocytes # (Manual) Atyp Lymphs # (Manual) Monocytes # (Manual) Eosinophils # (Manual) Dohle Bodies Platelet Estimate Large Platelets Plt Morphology Comment RBC Morphology Polychromasia Microcytosis Tear Drop Cells [place] Cells Anion Gap 13 Estim Creat Clear Calc 86.7 Estimated GFR > 60 POC Glucose 215 H Random Glucose 266 H Lactic Acid Lactic Acid F/U @ 2Hr Calcium 8.7 Magnesium Total Bilirubin Direct Bilirubin AST ALT Alkaline Phosphatase Troponin I High Sens B-Natriuretic Peptide Total Protein Albumin Influenza Type A (PCR) Influenza Type B (PCR) RSV RNA Qual (PCR) SARS-CoV-2 RNA (RT-PCR) Assessment and Plan (1) Acute respiratory failure with hypoxia: Status: Acute (2) Community acquired pneumonia: Status: Acute Plan 56-year-old male past medical history of hypertension, diabetes, presents to the hospital with complaints of cough, shortness of breath found to have pneumonia # acute hypoxic respiratory failure 2/2 community-acquired pneumonia bilateral infiltrate concerning for atypical injection check viral panel pending cultures Continue with IV antibiotics wean O2 down as tolerated cough medicine # hypertension continue antihypertensive # diabetes hold oral antihyperglycemics low-dose sliding scale insulin diabetic diet # depression anxiety continue mood stabilizers DVT prophylaxis: Lovenox given patient's need for oxygen supplement, in the setting of hypoxia, and IV antibiotics patient will require overnight inpatient hospital stay further management and monitoring Time Spent With Patient Time: Total time managing care of this patient today ____ minutes. Quality Stroke Does the patient have a stroke diagnosis?: No VTE Prior VTE?: No VTE Risk Level:: Medical - moderate - high VTE Device Contraindication: Treatment Not Indicated VTE Drug Contraindication: N/A - Med Ordered
[2022-11-16] MEDS: guaiFENesin LA 600 MG TAB.ER.12H PO ×2 (10:10→19:44)
[2022-11-16 11:17] LABS: Glucose, Whole Blood 155 mg/dL (60-115)
[2022-11-16 12:36] LABS: Adenovirus PCR Not Detected (Not Detect.); Bordetella parapertussis PCR Not Detected (Not Detect.); Bordetella pertussis PCR Not Detected (Not Detect.); Chlamydia pneumoniae PCR Not Detected (Not Detect.); Coronavirus 229E PCR Not Detected (Not Detect.); Coronavirus HKU1 PCR Not Detected (Not Detect.); Coronavirus NL63 PCR Not Detected (Not Detect.); Coronavirus OC43 PCR Not Detected (Not Detect.); Human metapneumovirus PCR Not Detected (Not Detect.); Influenza A PCR Not Detected (Not Detect.); Influenza B PCR Not Detected (Not Detect.); Mycoplasma pneumoniae PCR Not Detected (Not Detect.); Parainfluenza 1 PCR Not Detected (Not Detect.); Parainfluenza 2 PCR Not Detected (Not Detect.); Parainfluenza 3 PCR Not Detected (Not Detect.); Parainfluenza 4 PCR Not Detected (Not Detect.); RSV PCR Not Detected (Not Detect.); Rhino/Enterovirus PCR Not Detected (Not Detect.); SARS-CoV-2 PCR Not Detected (Not Detect.)
[2022-11-16] MEDS: HYDROcodone/Homat 5/1.5/5 ML 5 ML SYRUP PO ×2 (15:10→19:48)
[2022-11-16 15:36] VITALS: BP 171/97; PULSE 103; RESP 20; TEMP 38.1; O2SAT 93
[2022-11-16 16:20] VITALS: TEMP 37.2
[2022-11-16 16:29] LABS: Glucose, Whole Blood 227 mg/dL (60-115)
[2022-11-16] MEDS: Azithromycin 500 MG TABLET PO (18:10)
[2022-11-16] MEDS: cefTRIAXone sodium 1 GM in 0.9 % Sodium Chloride 50 ML IV (18:11)
[2022-11-16 19:36] VITALS: BP 142/71; PULSE 87; RESP 20; TEMP 36.2; O2SAT 94
[2022-11-16 20:11] LABS: Glucose, Whole Blood 197 mg/dL (60-115)
[2022-11-16] MEDS: Enoxaparin Sodium 40 MG/0.4 ML SYRINGE SUBCUT (21:18)
[2022-11-17] MEDS: Acetaminophen 325 MG TABLET 650 MG PO (03:19)
[2022-11-17] MEDS: HYDROcodone/Homat 5/1.5/5 ML 5 ML SYRUP PO ×4 (03:19→21:25)
[2022-11-17 03:22] VITALS: BP 152/82; PULSE 91; RESP 16; TEMP 36.3; O2SAT 93
[2022-11-17 06:13] LABS: Hematocrit 38.6 % (42.0-52.0); Hemoglobin 12.1 g/dl (14.0-18.0); Mean Corpuscular HGB Conc 31.3 g/dl (31.0-36.0); Mean Corpuscular Hemoglobin 28.3 pg (27.0-33.0); Mean Corpuscular Volume 90.4 fL (80.0-98.0); Mean Platelet Volume 9.9 fL (9.4-12.4); Platelet Count 290 X10*3/uL (160-400); Red Blood Count 4.27 X10*6/uL (4.60-5.80); Red Cell Distribution Width 13.2 % (11.0-16.0); White Blood Count 10.6 X10*3/uL (4.8-10.8)
[2022-11-17 06:40] LABS: Anion Gap 15 (12-20); Blood Urea Nitrogen 13 mg/dL (9-16); Calcium 8.9 mg/dL (8.4-10.2); Carbon Dioxide 28 mmol/L (22-29); Chloride 105 mmol/L (96-108); Creatinine Clr Calc Pharmacy 110.9; Estimated Glomerular Filt Rate > 60; Glucose Random 189 mg/dL (60-115); Potassium 4.9 mmol/L (3.3-5.1); Sodium 143 mmol/L (135-145)
[2022-11-17 07:40] LABS: Glucose, Whole Blood 177 mg/dL (60-115)
[2022-11-17 07:59] VITALS: BP 170/81; PULSE 86; RESP 18; TEMP 36.2; O2SAT 93
[2022-11-17] MEDS: 0.9 % Sodium Chloride Flush 3 ML SYRINGE IVFLUSH ×3 (08:04→20:04)
[2022-11-17] MEDS: Insulin Lispro 100 UNIT/ML 3 ML VIAL SUBCUT ×4 (08:04→20:04)
[2022-11-17] MEDS: buPROPion HCl XL 300 MG TAB.ER.24H PO (08:04)
[2022-11-17] MEDS: ARIPiprazole 2 MG TABLET PO (08:04)
[2022-11-17] MEDS: buPROPion HCl XL 150 MG TAB.ER.24H PO (08:04)
[2022-11-17] MEDS: amLODIPine Besylate 5 MG TABLET PO (08:05)
[2022-11-17] MEDS: Valsartan 160 MG TABLET PO (08:05)
[2022-11-17] MEDS: guaiFENesin LA 600 MG TAB.ER.12H PO ×2 (08:05→20:04)
[2022-11-17] MEDS: Benzonatate 100 MG CAPSULE 200 MG PO ×3 (09:36→20:04)
[2022-11-17] MEDS: SITagliptin Phosphate 50 MG TABLET PO (09:36)
--- NOTE | 2022-11-17 09:36 | P.PNIM_ITS ---
Subjective Subjective Date of Service: 11/17/22 Interval History: seen and evaluated this morning feeling SOB and having cough On O2 supplement No reported overnight events Review of Systems Review of Systems: Yes all other systems are reviewed and are negative Physical Exam Vital Signs: Vital Signs: Last Vital Signs Temp 97.1 F 11/17/22 07:59 Pulse 86 11/17/22 07:59 Resp 18 11/17/22 07:59 BP 170/81 H 11/17/22 07:59 Pulse Ox 93 11/17/22 07:59 O2 Del Method Nasal Cannula 11/17/22 07:59 O2 Flow Rate 3 11/17/22 07:59 BMI result Body Mass Index 29.3 Const: Other: Constitutional : Awake, interactive, not in distress Neck : Normal inspection, Supple Cardiovascular : RRR, no JVP, no lower extremity edema Respiratory : fair bilateral air entry, basal bilateral fine crackles, no wheezes Gastrointestinal: soft, lax, Normal bowel sounds, Non tender Skin : Warm, Dry Neurological : Alert & oriented x3, No focal deficit Objective Data Active Medications Acetaminophen (Acetaminophen 325 Mg Tablet) 650 mg PO Q6H PRN PRN Reason: Pain, Mild (Pain Scale 1-3) Last Admin: 11/17/22 03:19 Dose: 650 mg Documented By: BENIGNO Amlodipine Besylate (Amlodipine Besylate 5 Mg Tablet) 5 mg PO DAILY [facility]; Protocol Last Admin: 11/17/22 08:05 Dose: 5 mg Documented By: EZ Aripiprazole (Aripiprazole 2 Mg Tablet) 2 mg PO DAILY [facility] Last Admin: 11/17/22 08:04 Dose: 2 mg Documented By: EZ Azithromycin (Azithromycin 500 Mg Tablet) 500 mg PO Q24H [facility] Last Admin: 11/16/22 18:10 Dose: 500 mg Documented By: EZ Benzonatate (Benzonatate 100 Mg Capsule) 200 mg PO TID [facility] Bupropion HCl (Bupropion Hcl Xl 150 Mg Tab.Er.24h) 150 mg PO DAILY [facility] Last Admin: 11/17/22 08:04 Dose: 150 mg Documented By: EZ Bupropion HCl (Bupropion Hcl Xl 300 Mg Tab.Er.24h) 300 mg PO DAILY [facility] Last Admin: 11/17/22 08:04 Dose: 300 mg Documented By: EZ Docusate Sodium (Docusate Sodium 100 Mg Capsule) 100 mg PO DAILY PRN PRN Reason: Constipation Enoxaparin Sodium (Enoxaparin Sodium 40 Mg/0.4 Ml Syringe) 40 mg SUBCUT Q24H [facility] Last Admin: 11/16/22 21:18 Dose: 40 mg Documented By: CASTILM Glucose (Glucose Gel 15 Gm Gel..Gram.) 15 gm PO Q15M PRN; Protocol PRN Reason: per Hypoglycemia Standing Ord. Guaifenesin (Guaifenesin La 600 Mg Tab.Er.12h) 600 mg PO BID [facility] Last Admin: 11/17/22 08:05 Dose: 600 mg Documented By: EZ Hydrocodone Bit/Homatropine Methylb (Hydrocodone/Homat 5/1.5/5 Ml 5 Ml Syrup) 5 ml PO Q4H PRN PRN Reason: cough Last Admin: 11/17/22 08:04 Dose: 5 ml Documented By: EZ Ceftriaxone Sodium 1 gm/ (Sodium Chloride) 50 mls @ 100 mls/hr IV Q24H [facility] Last Infusion: 11/16/22 19:54 Dose: 0 mls/hr Documented By: BENIGNO Dextrose (D10) 250 mls @ 750 mls/hr IV Q15M PRN; Protocol PRN Reason: per Hypoglycemia Standing Ord. Insulin Human Lispro (Insulin Lispro 100 Unit/Ml 3 Ml Vial) 0 unit SUBCUT QIDACHS [facility]; Protocol Last Admin: 11/17/22 08:04 Dose: 2 unit Documented By: EZ Ondansetron HCl (Ondansetron Hcl 4 Mg/2 Ml Vial) 4 mg IVPUSH Q8H PRN PRN Reason: Nausea and Vomiting Pharmacy Consult (Consult Rx Perform Med Rec) 1 each MISCELLANE ONCE PRN PRN Reason: Consult order Sitagliptin Phosphate (Sitagliptin Phosphate 50 Mg Tablet) 50 mg PO DAILY [facility] Sodium Chloride (0.9 % Sodium Chloride Flush 3 Ml Syringe) 3 ml IVFLUSH QSHIFT [facility] Last Admin: 11/17/22 08:04 Dose: 3 ml Documented By: EZ Valsartan (Valsartan 160 Mg Tablet) 160 mg PO DAILY [facility]; Protocol Last Admin: 11/17/22 08:05 Dose: 160 mg Documented By: EZ Labs 11/17/22 05:54 11/17/22 05:54 Labs: Laboratory Results - last 24 hr 11/16/22 11/16/22 11/16/22 10:00 11:13 16:17 MCV MCH MCHC RDW Plt Count MPV Absolute Nucleated RBC Nucleated RBC % (auto) Anion Gap Estim Creat Clear Calc Estimated GFR POC Glucose 155 H 227 H Random Glucose Calcium Respiratory Panel [facility] See Note Adenovirus (Rapid PCR) Not Detected B.pert (TEM-PCR) Not Detected B.parapertussis DNA PCR Not Detected C. pneumoniae DNA (PCR) Not Detected Coronavirus OC43 (PCR) Not Detected Coronavirus HKU1 (PCR) Not Detected Coronavirus 229E (PCR) Not Detected Coronavirus NL63 (PCR) Not Detected Human Metapneumovir PCR Not Detected Influenza A (RT-PCR) Not Detected Influenza B (RT-PCR) Not Detected M. pneumoniae (PCR) Not Detected Parainfluenza 1 (PCR) Not Detected Parainfluenza 2 (PCR) Not Detected Parainfluenza 3 (PCR) Not Detected Parainfluenza 4 (PCR) Not Detected RSV (PCR) Not Detected Entero/Rhino (PCR) Not Detected SARS-CoV-2 RNA (RT-PCR) Not Detected 11/16/22 11/17/22 11/17/22 20:03 05:54 05:54 MCV 90.4 MCH 28.3 MCHC 31.3 RDW 13.2 Plt Count 290 MPV 9.9 Absolute Nucleated RBC 0.000 Nucleated RBC % (auto) 0.0 Anion Gap 15 Estim Creat Clear Calc 110.9 Estimated GFR > 60 POC Glucose 197 H Random Glucose 189 H Calcium 8.9 Respiratory Panel [facility] Adenovirus (Rapid PCR) B.pert (TEM-PCR) B.parapertussis DNA PCR C. pneumoniae DNA (PCR) Coronavirus OC43 (PCR) Coronavirus HKU1 (PCR) Coronavirus 229E (PCR) Coronavirus NL63 (PCR) Human Metapneumovir PCR Influenza A (RT-PCR) Influenza B (RT-PCR) M. pneumoniae (PCR) Parainfluenza 1 (PCR) Parainfluenza 2 (PCR) Parainfluenza 3 (PCR) Parainfluenza 4 (PCR) RSV (PCR) Entero/Rhino (PCR) SARS-CoV-2 RNA (RT-PCR) 11/17/22 07:31 MCV MCH MCHC RDW Plt Count MPV Absolute Nucleated RBC Nucleated RBC % (auto) Anion Gap Estim Creat Clear Calc Estimated GFR POC Glucose 177 H Random Glucose Calcium Respiratory Panel [place] Adenovirus (Rapid PCR) B.pert (TEM-PCR) B.parapertussis DNA PCR C. pneumoniae DNA (PCR) Coronavirus OC43 (PCR) Coronavirus HKU1 (PCR) Coronavirus 229E (PCR) Coronavirus NL63 (PCR) Human Metapneumovir PCR Influenza A (RT-PCR) Influenza B (RT-PCR) M. pneumoniae (PCR) Parainfluenza 1 (PCR) Parainfluenza 2 (PCR) Parainfluenza 3 (PCR) Parainfluenza 4 (PCR) RSV (PCR) Entero/Rhino (PCR) SARS-CoV-2 RNA (RT-PCR) Microbiology Microbiology Results: Microbiology 11/15/22 16:39 Blood Culture - Preliminary Blood - Venous No growth after 24 hours. 11/15/22 16:39 Blood Culture - Preliminary Blood - Venous No growth after 24 hours. Assessment and Plan (1) Acute respiratory failure with hypoxia: Status: Acute (2) Community acquired pneumonia: Status: Acute (3) Persistent cough: Status: Acute Plan 56-year-old male past medical history of hypertension, diabetes, presents to the hospital with complaints of cough, shortness of breath found to have pneumonia # acute hypoxic respiratory failure 2/2 community-acquired pneumonia bilateral infiltrate concerning for atypical infection\inflammatory response negative viral panel pending cultures check CRP, ESR add dose of steroids Continue with IV antibiotics wean O2 down as tolerated cough medicine # hypertension continue antihypertensive # diabetes hold oral antihyperglycemics low-dose sliding scale insulin diabetic diet # depression anxiety continue mood stabilizers DVT prophylaxis: Lovenox given patient's need for oxygen supplement, in the setting of hypoxia, and IV antibiotics patient will require overnight inpatient hospital stay further management and monitoring Time Spent With Patient Time: Total time managing care of this patient today ____ minutes. Quality Stroke Does the patient have a stroke diagnosis?: No VTE Prior VTE?: No VTE Risk Level:: Medical - moderate - high VTE Device Contraindication: Treatment Not Indicated VTE Drug Contraindication: N/A - Med Ordered
[2022-11-17] MEDS: methylPREDNISolone Sod Succ 40 MG/ML VIAL IVPUSH (10:03)
[2022-11-17 10:20] LABS: C Reactive Protein 20.39 mg/dL (< or = 0.50)
[2022-11-17 10:44] LABS: Erythrocyte Sedimentation Rate 91 MM/HR (0-15)
[2022-11-17 11:00] VITALS: BP 174/88; PULSE 89; RESP 18; TEMP 36.5; O2SAT 90
[2022-11-17 11:12] LABS: Glucose, Whole Blood 233 mg/dL (60-115)
[2022-11-17 11:52] VITALS: O2SAT 95
[2022-11-17 15:58] VITALS: BP 162/77; PULSE 93; RESP 17; TEMP 36.1; O2SAT 93
[2022-11-17 16:21] LABS: Glucose, Whole Blood 279 mg/dL (60-115)
--- NOTE | 2022-11-17 16:44 | MHC.CM.PN ---
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
[2022-11-17] MEDS: Azithromycin 500 MG TABLET PO (18:00)
[2022-11-17] MEDS: cefTRIAXone sodium 1 GM in 0.9 % Sodium Chloride 50 ML IV (18:00)
[2022-11-17 19:49] LABS: Glucose, Whole Blood 366 mg/dL (60-115)
[2022-11-17 20:00] VITALS: BP 165/78; PULSE 99; RESP 19; TEMP 36.3; O2SAT 93
[2022-11-18] MEDS: HYDROcodone/Homat 5/1.5/5 ML 5 ML SYRUP PO ×2 (01:54→07:37)
[2022-11-18 07:15] VITALS: BP 164/82; PULSE 91; RESP 18; TEMP 36.2; O2SAT 94
[2022-11-18 07:29] LABS: Glucose, Whole Blood 201 mg/dL (60-115)
[2022-11-18] MEDS: Insulin Lispro 100 UNIT/ML 3 ML VIAL SUBCUT ×4 (07:37→21:18)
[2022-11-18] MEDS: 0.9 % Sodium Chloride Flush 3 ML SYRINGE IVFLUSH ×2 (07:37→15:41)
[2022-11-18] MEDS: Benzonatate 100 MG CAPSULE 200 MG PO ×3 (07:38→21:18)
[2022-11-18] MEDS: ARIPiprazole 2 MG TABLET PO (07:38)
[2022-11-18] MEDS: Valsartan 160 MG TABLET PO (07:38)
[2022-11-18] MEDS: buPROPion HCl XL 150 MG TAB.ER.24H PO (07:38)
[2022-11-18] MEDS: amLODIPine Besylate 5 MG TABLET PO (07:39)
[2022-11-18] MEDS: SITagliptin Phosphate 50 MG TABLET PO (07:39)
[2022-11-18] MEDS: buPROPion HCl XL 300 MG TAB.ER.24H PO (07:39)
[2022-11-18] MEDS: guaiFENesin LA 600 MG TAB.ER.12H PO ×2 (07:39→21:18)
[2022-11-18] MEDS: Acetaminophen 325 MG TABLET 650 MG PO (07:44)
[2022-11-18] MEDS: methylPREDNISolone Sod Succ 40 MG/ML VIAL IVPUSH (09:45)
[2022-11-18 11:15] LABS: Glucose, Whole Blood 198 mg/dL (60-115)
--- NOTE | 2022-11-18 12:00 | P.PNIM_ITS ---
Subjective Subjective Date of Service: 11/18/22 Interval History: seen and evaluated this morning feeling dyspneic and having significant cough On O2 supplement No reported overnight events Review of Systems Review of Systems: Yes all other systems are reviewed and are negative Physical Exam Vital Signs: Vital Signs: Last Vital Signs Temp 97.1 F 11/18/22 07:15 Pulse 91 11/18/22 07:15 Resp 18 11/18/22 07:15 BP 164/82 H 11/18/22 07:15 Pulse Ox 94 11/18/22 07:15 O2 Del Method Nasal Cannula 11/18/22 07:15 O2 Flow Rate 2 11/18/22 07:15 BMI result Body Mass Index 29.3 Const: Other: Constitutional : Awake, interactive, not in distress Neck : Normal inspection, Supple Cardiovascular : RRR, no JVP, no lower extremity edema Respiratory : fairly decreased bilateral air entry, basal bilateral fine crackles, no wheezes Gastrointestinal: soft, lax, Normal bowel sounds, Non tender Skin : Warm, Dry Neurological : Alert & oriented x3, No focal deficit Objective Data Active Medications Acetaminophen (Acetaminophen 325 Mg Tablet) 650 mg PO Q6H PRN PRN Reason: Pain, Mild (Pain Scale 1-3) Last Admin: 11/18/22 07:44 Dose: 650 mg Documented By: MARLA Albuterol/Ipratropium (Albuterol/Iprat 2.5/0.5mg 3 Ml Ampul.Neb) 3 ml INHALE RQ4H WHILE AWAKE [facility] Amlodipine Besylate (Amlodipine Besylate 5 Mg Tablet) 5 mg PO DAILY [facility]; Protocol Last Admin: 11/18/22 07:39 Dose: 5 mg Documented By: MARLA Aripiprazole (Aripiprazole 2 Mg Tablet) 2 mg PO DAILY [facility] Last Admin: 11/18/22 07:38 Dose: 2 mg Documented By: MARLA Azithromycin (Azithromycin 500 Mg Tablet) 500 mg PO Q24H [facility] Last Admin: 11/17/22 18:00 Dose: 500 mg Documented By: PRESTOS Benzonatate (Benzonatate 100 Mg Capsule) 200 mg PO TID [facility] Last Admin: 11/18/22 07:38 Dose: 200 mg Documented By: MARLA Bupropion HCl (Bupropion Hcl Xl 150 Mg Tab.Er.24h) 150 mg PO DAILY [facility] Last Admin: 11/18/22 07:38 Dose: 150 mg Documented By: MARLA Bupropion HCl (Bupropion Hcl Xl 300 Mg Tab.Er.24h) 300 mg PO DAILY [facility] Last Admin: 11/18/22 07:39 Dose: 300 mg Documented By: MARLA Docusate Sodium (Docusate Sodium 100 Mg Capsule) 100 mg PO DAILY PRN PRN Reason: Constipation Enoxaparin Sodium (Enoxaparin Sodium 40 Mg/0.4 Ml Syringe) 40 mg SUBCUT Q24H [facility] Last Admin: 11/17/22 20:08 Dose: Not Given Documented By: USMAN Non-Admin Reason: Patient Refused Glucose (Glucose Gel 15 Gm Gel..Gram.) 15 gm PO Q15M PRN; Protocol PRN Reason: per Hypoglycemia Standing Ord. Guaifenesin (Guaifenesin La 600 Mg Tab.Er.12h) 600 mg PO BID [facility] Last Admin: 11/18/22 07:39 Dose: 600 mg Documented By: MARLA Hydrocodone Bit/Homatropine Methylb (Hydrocodone/Homat 5/1.5/5 Ml 5 Ml Syrup) 5 ml PO Q4H PRN PRN Reason: cough Last Admin: 11/18/22 07:37 Dose: 5 ml Documented By: MARLA Ceftriaxone Sodium 1 gm/ (Sodium Chloride) 50 mls @ 100 mls/hr IV Q24H [facility] Last Infusion: 11/17/22 18:37 Dose: 0 mls/hr Documented By: EZ Dextrose (D10) 250 mls @ 750 mls/hr IV Q15M PRN; Protocol PRN Reason: per Hypoglycemia Standing Ord. Insulin Human Lispro (Insulin Lispro 100 Unit/Ml 3 Ml Vial) 0 unit SUBCUT QIDACHS [facility]; Protocol Last Admin: 11/18/22 07:37 Dose: 4 unit Documented By: MARLA Methylprednisolone Sodium Succinate (Methylprednisolone Sod Succ 40 Mg/Ml Vial) 40 mg IVPUSH Q12H [facility] Last Admin: 11/18/22 09:45 Dose: 40 mg Documented By: MARLA Ondansetron HCl (Ondansetron Hcl 4 Mg/2 Ml Vial) 4 mg IVPUSH Q8H PRN PRN Reason: Nausea and Vomiting Pharmacy Consult (Consult Rx Perform Med Rec) 1 each MISCELLANE ONCE PRN PRN Reason: Consult order Sitagliptin Phosphate (Sitagliptin Phosphate 50 Mg Tablet) 50 mg PO DAILY [facility] Last Admin: 11/18/22 07:39 Dose: 50 mg Documented By: MARLA Sodium Chloride (0.9 % Sodium Chloride Flush 3 Ml Syringe) 3 ml IVFLUSH QSHIFT [facility] Last Admin: 11/18/22 07:37 Dose: 3 ml Documented By: MARLA Valsartan (Valsartan 160 Mg Tablet) 160 mg PO DAILY [facility]; Protocol Last Admin: 11/18/22 07:38 Dose: 160 mg Documented By: MALRA Labs 11/17/22 05:54 11/17/22 05:54 Labs: Laboratory Results - last 24 hr 11/17/22 11/17/22 11/18/22 16:16 19:45 07:20 POC Glucose 279 H 366 H* 201 H 11/18/22 11:09 POC Glucose 198 H Microbiology Microbiology Results: Microbiology 11/15/22 16:39 Blood Culture - Preliminary Blood - Venous No growth after 48 hours. 11/15/22 16:39 Blood Culture - Preliminary Blood - Venous No growth after 48 hours. Assessment and Plan (1) Acute respiratory failure with hypoxia: Status: Acute (2) Community acquired pneumonia: Status: Acute Plan 56-year-old male past medical history of hypertension, diabetes, presents to the hospital with complaints of cough, shortness of breath found to have pneumonia # acute hypoxic respiratory failure 2/2 community-acquired pneumonia bilateral infiltrate concerning for atypical infection\post viral\inflammatory response negative viral panel pending cultures Elevated CRP, ESR Start steroids and duonebs Get pulm consult Continue with IV antibiotics wean O2 down as tolerated cough medicine # hypertension continue antihypertensive # diabetes hold oral antihyperglycemics low-dose sliding scale insulin diabetic diet # depression anxiety continue mood stabilizers DVT prophylaxis: Lovenox given patient's need for oxygen supplement, in the setting of hypoxia, and IV antibiotics patient will require overnight inpatient hospital stay further management and monitoring Time Spent With Patient Time: Total time managing care of this patient today ____ minutes. Quality Stroke Does the patient have a stroke diagnosis?: No VTE Prior VTE?: No VTE Risk Level:: Medical - moderate - high VTE Device Contraindication: Treatment Not Indicated VTE Drug Contraindication: N/A - Med Ordered
[2022-11-18] MEDS: Albuterol/Iprat 2.5/0.5MG 3 ML AMPUL.NEB INHALE ×3 (12:23→18:57)
[2022-11-18 12:24] VITALS: PULSE 91; RESP 18; O2SAT 99
--- NOTE | 2022-11-18 12:25 | P.CONPL_ITS ---
History of Present Illness History of Present Illness Consult date: 11/18/22 Chief complaint: Hypoxic, PNA Narrative: This is an inpatient pulmonary consultation. The patient is a 56-year-old male with past medical history of diabetes, hypertension, LBBB, [facility] complaining of cough and shortness of breath.? Patient reports her symptoms started about a week ago, worsening cough, seen? in the hospital on 11/13, given cough medication, no relief, returns today having worsening shortness of breath and cough.? Patient reports chills, no fever, no orthopnea PND,? chest wall pain from coughing, no nausea vomiting, no abdominal pain diarrhea constipation, no urinary symptoms and no lower extremity edema.? In the ED, the Patient was found to be hypoxic satting 90% on 3 L of oxygen,? satting to 80% on room air upon? minimal exertion. He was admitted patientand placed on oxygen and started IV antibiotics. He has been slow to recover, actually feeling worse, He had a repea t CXR demonstrating worsening airspace disease. Review of Systems Constitutional: Constitutional: Reports fatigue and Denies fever(s) Eyes: Eyes: Denies change in vision ENT: Denies vertigo Cardiovascular: Cardiovascular: Denies chest pain, Reports dyspnea and Reports dyspnea on exertion Respiratory: Respiratory: Reports chest congestion, Reports cough, Denies hemoptysis, Denies excessive phlegm production, Denies pain on inspiration, Denies pain with cough, Reports dyspnea, Reports dyspnea on exertion and Reports wheezing Gastrointestinal: Gastrointestinal: Reports no additional gastrointestinal complaints Musculoskeletal: Musculoskeletal: Reports no additional musculoskeletal complaints Neurologic: Denies vertigo Endocrine: Endocrine: Reports fatigue Hematologic/Lymphatic: Hematologic/Lymphatic: Denies easy bleeding, Denies easy bruising and Denies lymphadenopathy Allergic/Immunologic: Allergic/Immunologic: Reports wheezing PMFSH Past Medical History Medical History Depression Diabetic foot ulcer HTN (hypertension) LBBB (left bundle branch block) Osteomyelitis Preop cardiovascular exam Suicidal ideation Type 2 diabetes mellitus with foot ulcer Family History Family History Father Neck malignant neoplasm Surgical History Surgical History H/O: vasectomy Social History Social History Household Members: Spouse and Family Housing: House Do you presently have visiting nurse or other home services: No Alcohol intake: current Alcohol intake frequency: holidays/special occasions only Patient Tobacco Use Status: Never used Tobacco Second Hand Smoke Exposure: No Use of substances other than those prescribed or required for medical reasons: No Substance Use Type: Marijuana Currently Displaying Signs/Symptoms of Drug Intoxication Withdrawal: No Have you been hit, kicked, punched, or otherwise hurt by someone within the past year? If so, by whom?: No Do you feel safe in your current relationship?: Yes Is there a partner from a previous relationship who is making you feel unsafe now?: No Are you made to feel afraid or neglected: No Advance Directives: Yes Advance Directives Information Provided: No Advance Directives on File: No Advance Directives Date on File: 04/11/22 Do you have thoughts of harming others: None Do you have a plan to hurt others: No Plan Recently lost weight without trying: No How much weight loss: Not applicable Eating poorly because of decreased appetite: No Nutrition screen score: 0 Nutrition Risks: No Nutritional Risk Poor oral hygiene: No service: No Current occupational status: employed Sexual orientation: Straight/Heterosexual Meds Allergies Allergy/AdvReac Type Severity Reaction Status Date / Time codeine [CODEINE] Allergy Unknown delayed Verified 02/07/22 09:46 responses 02/24/17 Active Medications: Current Medications Acetaminophen (Acetaminophen 325 Mg Tablet) 650 mg PO Q6H PRN PRN Reason: Pain, Mild (Pain Scale 1-3) Last Admin: 11/18/22 07:44 Dose: 650 mg Albuterol/Ipratropium (Albuterol/Iprat 2.5/0.5mg 3 Ml Ampul.Neb) 3 ml INHALE RQ4H WHILE AWAKE MICHELLE Last Admin: 11/18/22 12:23 Dose: 3 ml Amlodipine Besylate (Amlodipine Besylate 5 Mg Tablet) 5 mg PO DAILY [facility]; Protocol Last Admin: 11/18/22 07:39 Dose: 5 mg Aripiprazole (Aripiprazole 2 Mg Tablet) 2 mg PO DAILY [facility] Last Admin: 11/18/22 07:38 Dose: 2 mg Benzonatate (Benzonatate 100 Mg Capsule) 200 mg PO TID MICHELLE Last Admin: 11/18/22 07:38 Dose: 200 mg Bupropion HCl (Bupropion Hcl Xl 150 Mg Tab.Er.24h) 150 mg PO DAILY [facility] Last Admin: 11/18/22 07:38 Dose: 150 mg Bupropion HCl (Bupropion Hcl Xl 300 Mg Tab.Er.24h) 300 mg PO DAILY [facility] Last Admin: 11/18/22 07:39 Dose: 300 mg Docusate Sodium (Docusate Sodium 100 Mg Capsule) 100 mg PO DAILY PRN PRN Reason: Constipation Enoxaparin Sodium (Enoxaparin Sodium 40 Mg/0.4 Ml Syringe) 40 mg SUBCUT Q24H [facility] Last Admin: 11/17/22 20:08 Dose: Not Given Glucose (Glucose Gel 15 Gm Gel..Gram.) 15 gm PO Q15M PRN; Protocol PRN Reason: per Hypoglycemia Standing Ord. Guaifenesin (Guaifenesin La 600 Mg Tab.Er.12h) 600 mg PO BID [facility] Last Admin: 11/18/22 07:39 Dose: 600 mg Hydrocodone Bit/Homatropine Methylb (Hydrocodone/Homat 5/1.5/5 Ml 5 Ml Syrup) 5 ml PO Q4H PRN PRN Reason: cough Last Admin: 11/18/22 07:37 Dose: 5 ml Dextrose (D10) 250 mls @ 750 mls/hr IV Q15M PRN; Protocol PRN Reason: per Hypoglycemia Standing Ord. Doxycycline Hyclate 100 mg/ (Sodium Chloride) 250 mls @ 166.67 mls/hr IV Q12H [facility] Levofloxacin (Levaquin) 500 mg in 100 mls @ 100 mls/hr IV Q24H [facility] Insulin Human Lispro (Insulin Lispro 100 Unit/Ml 3 Ml Vial) 0 unit SUBCUT QIDACHS [facility]; Protocol Last Admin: 11/18/22 07:37 Dose: 4 unit Methylprednisolone Sodium Succinate (Methylprednisolone Sod Succ 40 Mg/Ml Vial) 60 mg IVPUSH Q8H [facility] Ondansetron HCl (Ondansetron Hcl 4 Mg/2 Ml Vial) 4 mg IVPUSH Q8H PRN PRN Reason: Nausea and Vomiting Pharmacy Consult (Consult Rx Perform Med Rec) 1 each MISCELLANE ONCE PRN PRN Reason: Consult order Sitagliptin Phosphate (Sitagliptin Phosphate 50 Mg Tablet) 50 mg PO DAILY [facility] Last Admin: 11/18/22 07:39 Dose: 50 mg Sodium Chloride (0.9 % Sodium Chloride Flush 3 Ml Syringe) 3 ml IVFLUSH QSHIFT [facility] Last Admin: 11/18/22 07:37 Dose: 3 ml Valsartan (Valsartan 160 Mg Tablet) 160 mg PO DAILY [facility]; Protocol Last Admin: 11/18/22 07:38 Dose: 160 mg Home Medications Medication Instructions Recorded Confirmed Last Taken Type amlodipine 5 mg tablet 5 mg PO DAILY 11/15/22 11/15/22 11/15/22 History erythromycin 5 mg/gram (0.5 %) eye 1 appl ophthalmic (eye) QID 11/15/22 11/15/22 11/15/22 History ointment metformin 1,000 mg tablet,extended 1,000 mg PO BID 11/15/22 11/15/22 11/15/22 History release 24hr sitagliptin phosphate 50 mg tablet 50 mg PO DAILY 11/15/22 11/15/22 11/15/22 History ([place]) valsartan 160 mg tablet 160 mg PO DAILY 11/15/22 11/15/22 11/15/22 History Physical Exam Vital Signs: Vital Signs: Last Vital Signs Temp 97.1 F 11/18/22 07:15 Pulse 91 11/18/22 12:24 Resp 18 11/18/22 12:24 BP 164/82 H 11/18/22 07:15 Pulse Ox 94 11/18/22 07:15 O2 Del Method Nasal Cannula 11/18/22 07:15 O2 Flow Rate 2 11/18/22 07:15 BMI result Body Mass Index 29.3 Const: General: comfortable HEENT: Head: Yes normocephalic Eyes: General: appearance normal, both eyes and all related structures Neck: Neck: Yes supple Chest: Chest palpation & inspection: normal inspection of the chest Resp: Effort & Inspection: normal respiratory effort Auscultation: crackles, wheezes and diminished lung sounds Cardio: Rate: regular rate Rhythm: regular rhythm Heart sounds: S1 normal heart sound present and S2 normal heart sound present GI: Palpation (GI): Soft to palpation Skin: General skin exam: no rashes or lesions noted Extrem: General: Yes no clubbing, cyanosis or edema Results Laboratory Findings 11/17/22 05:54 11/17/22 05:54 Abnormal lab findings: Abnormal Labs 11/15/22 11/15/22 11/15/22 16:39 16:39 19:56 RBC 4.14 L D Hgb 11.9 L Hct 38.1 L Band Neutrophils % 6 H Lymphocytes % (Manual) Monocytes % (Manual) ESR BUN 21 H POC Glucose Random Glucose 207 H Lactic Acid 2.2 H* C-Reactive Protein Total Protein 6.4 L 11/16/22 11/16/22 11/16/22 06:15 06:15 07:15 RBC 4.19 L Hgb 12.1 L Hct 38.5 L Band Neutrophils % 11 H Lymphocytes % (Manual) 16 L Monocytes % (Manual) 12 H ESR BUN 19 H POC Glucose 215 H Random Glucose 266 H Lactic Acid C-Reactive Protein Total Protein 11/16/22 11/16/22 11/16/22 11:13 16:17 20:03 RBC Hgb Hct Band Neutrophils % Lymphocytes % (Manual) Monocytes % (Manual) ESR BUN POC Glucose 155 H 227 H 197 H Random Glucose Lactic Acid C-Reactive Protein Total Protein 11/17/22 11/17/22 11/17/22 05:54 05:54 05:54 RBC 4.27 L Hgb 12.1 L Hct 38.6 L Band Neutrophils % Lymphocytes % (Manual) Monocytes % (Manual) ESR 91 H BUN POC Glucose Random Glucose 189 H Lactic Acid C-Reactive Protein 20.39 H Total Protein 11/17/22 11/17/22 11/17/22 07:31 11:02 16:16 RBC Hgb Hct Band Neutrophils % Lymphocytes % (Manual) Monocytes % (Manual) ESR BUN POC Glucose 177 H 233 H 279 H Random Glucose Lactic Acid C-Reactive Protein Total Protein 11/17/22 11/18/22 11/18/22 19:45 07:20 11:09 RBC Hgb Hct Band Neutrophils % Lymphocytes % (Manual) Monocytes % (Manual) ESR BUN POC Glucose 366 H* 201 H 198 H Random Glucose Lactic Acid C-Reactive Protein Total Protein Microbiology: Microbiology 11/15/22 16:39 Blood - Venous Blood Culture - Preliminary No growth after 48 hours. 11/15/22 16:39 Blood - Venous Blood Culture - Preliminary No growth after 48 hours. Assessment and Plan (1) Acute respiratory failure with hypoxia: Status: Acute (2) Community acquired pneumonia: Status: Acute Plan Slow to recover. Respiratory panel negative. Not responding to typical CAP therapy. Need to consider post viral Community acquired staph or Legionella. REC: Stop AZT/CTX started Levaquin/Doxy Agree with nebs Increased solumedrol Legionella testing CPT with Aerobika If no better, then CT chest. Will reassess tomorrow Time Spent With Patient Time: Total time managing care of this patient today ____ minutes. Procedures Date of Service Date of Service: 11/18/22
[2022-11-18] MEDS: Doxycycline Hyclate 100 MG in 0.9 % Sodium Chloride 250 ML 166.67 MG IV (13:05)
[2022-11-18] MEDS: methylPREDNISolone Sod Succ 40 MG/ML VIAL 60 MG IVPUSH ×2 (13:17→21:17)
[2022-11-18] MEDS: levoFLOXacin/D5W 500 MG/100 ML PIGGYBACK 100 MG IV (14:30)
[2022-11-18 15:07] VITALS: BP 169/83; PULSE 83; RESP 18; TEMP 36; O2SAT 95
--- NOTE | 2022-11-18 16:03 | MHC.CM.PN ---
per rounds pt not ready for dc
[2022-11-18 16:09] VITALS: PULSE 86; RESP 16; O2SAT 94
[2022-11-18 16:13] LABS: Glucose, Whole Blood 346 mg/dL (60-115)
[2022-11-18 18:57] VITALS: PULSE 100; RESP 16; O2SAT 95
[2022-11-18] MEDS: guaiFEN/Codeine SF 200/20/10ML 10 ML LIQUID PO (19:06)
[2022-11-18] MEDS: Loratadine 10 MG TABLET PO (19:07)
[2022-11-18 19:16] VITALS: BP 149/72; PULSE 96; RESP 18; TEMP 36; O2SAT 92
[2022-11-18 20:31] LABS: Glucose, Whole Blood 386 mg/dL (60-115)
--- NOTE | 2022-11-18 21:22 | PM.EVENT ---
Event Note Date of Service: 11/18/22 Event Note: RN notified provider of blood glucose 386 related to steroid use. Started on 60mg IV methylprednisolone earlier today by pulmonology. Will initiate Lantus 10 units nightly to help manage hyperglycemia associated with steroid use. Continue sliding scale Humalog. Time Spent With Patient Time: Total time managing care of this patient today ____ minutes.
[2022-11-18] MEDS: Insulin Glargine,Hum.rec.anlog 100 UNIT/ML 10 ML VIAL 10 UNIT SUBCUT (21:28)
[2022-11-19] VITALS (11 sets, daily range): BP systolic 142–179; BP diastolic 79–100; PULSE 82–90; RESP 16–17; TEMP 36–36.8; O2SAT 93–95
[2022-11-19] MEDS: HYDROcodone/Homat 5/1.5/5 ML 5 ML SYRUP PO (00:17)
[2022-11-19] MEDS: Doxycycline Hyclate 100 MG in 0.9 % Sodium Chloride 250 ML 166.67 MG IV ×2 (00:19→13:54)
[2022-11-19] MEDS: 0.9 % Sodium Chloride Flush 3 ML SYRINGE IVFLUSH (01:08)
--- NOTE | 2022-11-19 03:01 | PC.NURSE ---
Addendum entered by Madeline Hutchins RN 11/19/22 04:13: IV SITE IS #22 NOT #20 Original Note: PATIENTS IVABX DUE TO START 0030 RAN BEHIND SCHEDULE IV SITE #20 AT RIGHT ARM HAD DISCOMFORT AND WAS LEAKING. CATHETER REMOVED INTACT AND NEW SITE WAS DELAYED ATTEMPTS WERE UNSUCCESSFUL TIMES 3 NURSES. NURSING LABORATORY GENETICIST ESTABLISHED #20 TO LEFT HAND AND IVABX RESUMED. PT DONOVAN WELL AND REMAINED OOB TO RECLINER BY CHOICE/COMFORT.
[2022-11-19] MEDS: methylPREDNISolone Sod Succ 40 MG/ML VIAL 60 MG IVPUSH ×3 (04:10→20:48)
[2022-11-19] MEDS: guaiFENesin LA 600 MG TAB.ER.12H PO ×2 (07:32→20:50)
[2022-11-19] MEDS: Benzonatate 100 MG CAPSULE 200 MG PO ×3 (07:32→20:49)
[2022-11-19] MEDS: Valsartan 160 MG TABLET PO (07:33)
[2022-11-19] MEDS: buPROPion HCl XL 150 MG TAB.ER.24H PO (07:33)
[2022-11-19] MEDS: ARIPiprazole 2 MG TABLET PO (07:33)
[2022-11-19] MEDS: buPROPion HCl XL 300 MG TAB.ER.24H PO (07:33)
[2022-11-19] MEDS: SITagliptin Phosphate 50 MG TABLET PO (07:33)
[2022-11-19] MEDS: amLODIPine Besylate 5 MG TABLET PO ×2 (07:33→09:43)
[2022-11-19] MEDS: Insulin Lispro 100 UNIT/ML 3 ML VIAL SUBCUT ×4 (07:48→20:54)
[2022-11-19] MEDS: Albuterol/Iprat 2.5/0.5MG 3 ML AMPUL.NEB INHALE ×4 (07:54→20:25)
[2022-11-19 08:03] LABS: Glucose, Whole Blood 326 mg/dL (60-115)
--- NOTE | 2022-11-19 08:48 | P.PNPL_ITS ---
Subjective Subjective Date of Service: 11/19/22 Interval history: The patient was seen and examined. He complains that he is not any better. Medication changes took place yesterday. Using the nebulized therapy with good effect. Will wait till tomorrow. Hopefully he starts feeling better if not will request a CT scan of the chest better address the ongoing pulmonary issues. Objective Data Labs 11/17/22 05:54 11/17/22 05:54 Labs: Laboratory Results - last 24 hr 11/18/22 11/18/22 11/18/22 11:09 16:08 20:20 POC Glucose 198 H 346 H 386 H* 11/19/22 07:00 POC Glucose 326 H Microbiology Microbiology Results: Microbiology 11/15/22 16:39 Blood - Venous Blood Culture - Preliminary No growth after 48 hours. 11/15/22 16:39 Blood - Venous Blood Culture - Preliminary No growth after 48 hours. Review of Systems Constitutional: Reports fatigue and Denies fever(s) Eyes: Denies change in vision Denies vertigo Cardiovascular: Denies chest pain, Reports dyspnea and Reports dyspnea on exertion Respiratory: Reports chest congestion, Reports cough, Denies hemoptysis, Denies excessive phlegm production, Denies pain on inspiration, Denies pain with cough, Reports dyspnea, Reports dyspnea on exertion and Reports wheezing Gastrointestinal: Reports no additional gastrointestinal complaints Musculoskeletal: Reports no additional musculoskeletal complaints Denies vertigo Endocrine: Reports fatigue Hematologic/Lymphatic: Denies easy bleeding, Denies easy bruising and Denies lymphadenopathy Allergic/Immunologic: Reports wheezing Physical Exam Vital Signs: Vital Signs: Last Vital Signs Temp 97.4 F 11/19/22 07:01 Pulse 88 11/19/22 07:55 Resp 16 11/19/22 07:55 BP 170/100 H 11/19/22 07:01 Pulse Ox 94 11/19/22 07:01 O2 Del Method Nasal Cannula 11/19/22 07:01 O2 Flow Rate 2 11/19/22 07:01 BMI result Body Mass Index 29.3 Const: General: comfortable HEENT: Head: Yes normocephalic Eyes: General: appearance normal, both eyes and all related structures Neck: Neck: Yes supple Chest: Chest palpation & inspection: normal inspection of the chest Resp: Effort & Inspection: normal respiratory effort Auscultation: cr ackles, no wheezes and diminished lung sounds Cardio: Rate: regular rate Rhythm: regular rhythm Heart sounds: S1 normal heart sound present and S2 normal heart sound present GI: Palpation (GI): Soft to palpation Skin: General skin exam: no rashes or lesions noted Extrem: General: Yes no clubbing, cyanosis or edema Procedures Date of Service Date of Service: 11/19/22 Assessment and Plan Assessment and plan (1) Acute respiratory failure with hypoxia: Status: Acute (2) Community acquired pneumonia: Status: Acute Plan Continue oxygen supplementation to maintain a pulse ox above 90% Continue current antibiotic therapy with levofloxacin and doxycycline Awaiting Legionella antigen Continue Solu-Medrol consider decreasing if mood changes Continue nebulized therapy Mucinex DM Continue CPT with Acapella valve Will reassess in 24 hours, if no better will request a CT scan of the chest Time Spent With Patient Time: Total time managing care of this patient today ____ minutes. Progress Note: Quality Stroke Does the patient have a stroke diagnosis?: No
--- NOTE | 2022-11-19 11:23 | HO.PM.IMPN ---
Subjective Subjective Date of Service: 11/19/22 Interval History: seen and evaluated this morning coughing less and able to finish sentences today still report feeling dyspneic and having significant cough bouts On O2 supplement No reported overnight events Review of Systems Review of Systems: Yes all other systems are reviewed and are negative Physical Exam Vital Signs: Vital Signs: Last Vital Signs Temp 97.4 F 11/19/22 07:01 Pulse 88 11/19/22 07:55 Resp 16 11/19/22 07:55 BP 178/87 H 11/19/22 09:31 Pulse Ox 94 11/19/22 07:01 O2 Del Method Nasal Cannula 11/19/22 07:01 O2 Flow Rate 2 11/19/22 07:01 BMI result Body Mass Index 29.3 Const: Other: Constitutional : Awake, interactive, not in distress Neck : Normal inspection, Supple Cardiovascular : RRR, no JVP, no lower extremity edema Respiratory : fairly decreased bilateral air entry, basal bilateral fine crackles, no wheezes Gastrointestinal: soft, lax, Normal bowel sounds, Non tender Skin : Warm, Dry Neurological : Alert & oriented x3, No focal deficit Objective Data Active Medications Acetaminophen (Acetaminophen 325 Mg Tablet) 650 mg PO Q6H PRN PRN Reason: Pain, Mild (Pain Scale 1-3) Last Admin: 11/18/22 07:44 Dose: 650 mg Documented By: MARLA Albuterol/Ipratropium (Albuterol/Iprat 2.5/0.5mg 3 Ml Ampul.Neb) 3 ml INHALE RQ4H WHILE AWAKE [facility] Last Admin: 11/19/22 07:54 Dose: 3 ml Documented By: DAQUAN Amlodipine Besylate (Amlodipine Besylate 10 Mg Tablet) 10 mg PO DAILY [facility]; Protocol Aripiprazole (Aripiprazole 2 Mg Tablet) 2 mg PO DAILY [facility] Last Admin: 11/19/22 07:33 Dose: 2 mg Documented By: YAW Benzonatate (Benzonatate 100 Mg Capsule) 200 mg PO TID [facility] Last Admin: 11/19/22 07:32 Dose: 200 mg Documented By: YAW Bupropion HCl (Bupropion Hcl Xl 150 Mg Tab.Er.24h) 150 mg PO DAILY [facility] Last Admin: 11/19/22 07:33 Dose: 150 mg Documented By: YAW Bupropion HCl (Bupropion Hcl Xl 300 Mg Tab.Er.24h) 300 mg PO DAILY [facility] Last Admin: 11/19/22 07:33 Dose: 300 mg Documented By: YAW Docusate Sodium (Docusate Sodium 100 Mg Capsule) 100 mg PO DAILY PRN PRN Reason: Constipation Enoxaparin Sodium (Enoxaparin Sodium 40 Mg/0.4 Ml Syringe) 40 mg SUBCUT Q24H [facility] Last Admin: 11/18/22 23:17 Dose: Not Given Documented By: BRII Non-Admin Reason: refused Glucose (Glucose Gel 15 Gm Gel..Gram.) 15 gm PO Q15M PRN; Protocol PRN Reason: per Hypoglycemia Standing Ord. Guaifenesin (Guaifenesin La 600 Mg Tab.Er.12h) 600 mg PO BID [facility] Last Admin: 11/19/22 07:32 Dose: 600 mg Documented By: YAW Hydrocodone Bit/Homatropine Methylb (Hydrocodone/Homat 5/1.5/5 Ml 5 Ml Syrup) 5 ml PO Q4H PRN PRN Reason: cough Last Admin: 11/19/22 00:17 Dose: 5 ml Documented By: ALEXSANDRA Dextrose (D10) 250 mls @ 750 mls/hr IV Q15M PRN; Protocol PRN Reason: per Hypoglycemia Standing Ord. Doxycycline Hyclate 100 mg/ (Sodium Chloride) 250 mls @ 166.67 mls/hr IV Q12H [facility] Last Infusion: 11/19/22 02:52 Dose: 0 mls/hr Documented By: ALEXSANDRA Levofloxacin (Levaquin) 500 mg in 100 mls @ 100 mls/hr IV Q24H [facility] Last Infusion: 11/18/22 15:41 Dose: 0 mls/hr Documented By: BRII Insulin Glargine (Insulin Glargine,Hum.Rec.Anlog 100 Unit/Ml 10 Ml Vial) 20 unit SUBCUT BEDTIME [facility] Insulin Human Lispro (Insulin Lispro 100 Unit/Ml 3 Ml Vial) 0 unit SUBCUT QIDACHS [facility]; Protocol Last Admin: 11/19/22 07:48 Dose: 8 unit Documented By: YAW Methylprednisolone Sodium Succinate (Methylprednisolone Sod Succ 40 Mg/Ml Vial) 60 mg IVPUSH Q8H [facility] Last Admin: 11/19/22 04:10 Dose: 60 mg Documented By: ALEXSANDRA Ondansetron HCl (Ondansetron Hcl 4 Mg/2 Ml Vial) 4 mg IVPUSH Q8H PRN PRN Reason: Nausea and Vomiting Pharmacy Consult (Consult Rx Perform Med Rec) 1 each MISCELLANE ONCE PRN PRN Reason: Consult order Sitagliptin Phosphate (Sitagliptin Phosphate 50 Mg Tablet) 50 mg PO DAILY [facility] Last Admin: 11/19/22 07:33 Dose: 50 mg Documented By: YAW Sodium Chloride (0.9 % Sodium Chloride Flush 3 Ml Syringe) 3 ml IVFLUSH QSHIFT [facility] Last Admin: 11/19/22 07:49 Dose: Not Given Documented By: YAW Non-Admin Reason: Previously Administered Valsartan (Valsartan 160 Mg Tablet) 160 mg PO DAILY [facility]; Protocol Last Admin: 11/19/22 07:33 Dose: 160 mg Documented By: YAW Labs 11/17/22 05:54 11/17/22 05:54 Labs: Laboratory Results - last 24 hr 11/18/22 11/18/22 11/19/22 16:08 20:20 07:00 POC Glucose 346 H 386 H* 326 H Assessment and Plan (1) Acute respiratory failure with hypoxia: Status: Acute (2) Community acquired pneumonia: Status: Acute (3) Persistent cough: Status: Acute Plan 56-year-old male past medical history of hypertension, diabetes, presents to the hospital with complaints of cough, shortness of breath found to have pneumonia # acute hypoxic respiratory failure 2/2 community-acquired pneumonia bilateral infiltrate concerning for atypical infection\post viral negative viral panel negative cultures Elevated CRP, ESR pending Ag strep and legionella Increase steroids and duonebs pulm consult appreciated IV antibiotics changed to Levofloxacin and Doxy wean O2 down as tolerated cough medicine # uncotnrolled hypertension continue antihypertensive Increase Amlodipine to 10 mg daily # diabetes hold oral antihyperglycemics low-dose sliding scale insulin diabetic diet # depression anxiety continue mood stabilizers DVT prophylaxis: Lovenox given patient's need for oxygen supplement, in the setting of hypoxia, and IV antibiotics patient will require overnight inpatient hospital stay pending improvement in respiratory status Time Spent With Patient Time: Total time managing care of this patient today ____ minutes. Quality Stroke Does the patient have a stroke diagnosis?: No VTE Prior VTE?: No VTE Risk Level:: Medical - moderate - high VTE Device Contraindication: Treatment Not Indicated VTE Drug Contraindication: N/A - Med Ordered
[2022-11-19 11:29] LABS: Glucose, Whole Blood 329 mg/dL (60-115)
[2022-11-19] MEDS: levoFLOXacin/D5W 500 MG/100 ML PIGGYBACK 100 MG IV (12:45)
[2022-11-19 16:39] LABS: Glucose, Whole Blood 335 mg/dL (60-115)
[2022-11-19] MEDS: hydrALAZINE HCl 25 MG TABLET PO ×2 (17:59→20:49)
--- NOTE | 2022-11-19 18:07 | PC.NURSE ---
BP has been consitantly high throughout the day. 179/84. MD villar aware. made adjustment to amlodipine to no effect. Is now trying hydralazine in place of amlodipine. Pt cont to be wheezing/cough. No other complaints
[2022-11-19] MEDS: Insulin Glargine,Hum.rec.anlog 100 UNIT/ML 10 ML VIAL 20 UNIT SUBCUT (20:54)
[2022-11-19 20:59] LABS: Glucose, Whole Blood 440 mg/dL (60-115)
[2022-11-20] VITALS (10 sets, daily range): BP systolic 147–178; BP diastolic 71–92; PULSE 79–93; RESP 16–18; TEMP 36.1–36.4; O2SAT 92–98
[2022-11-20] MEDS: Doxycycline Hyclate 100 MG in 0.9 % Sodium Chloride 250 ML 166.67 MG IV ×2 (00:18→12:29)
[2022-11-20] MEDS: diphenhydrAMINE HCL 50 MG/ML VIAL IVPUSH (01:39)
[2022-11-20] MEDS: methylPREDNISolone Sod Succ 40 MG/ML VIAL 60 MG IVPUSH ×3 (03:09→20:48)
[2022-11-20] MEDS: HYDROcodone/Homat 5/1.5/5 ML 5 ML SYRUP PO ×3 (04:08→14:37)
[2022-11-20 07:43] LABS: Glucose, Whole Blood 409 mg/dL (60-115)
[2022-11-20] MEDS: SITagliptin Phosphate 50 MG TABLET PO (08:34)
[2022-11-20] MEDS: amLODIPine Besylate 10 MG TABLET PO (08:34)
[2022-11-20] MEDS: hydrALAZINE HCl 25 MG TABLET PO ×3 (08:35→20:48)
[2022-11-20] MEDS: buPROPion HCl XL 150 MG TAB.ER.24H PO (08:35)
[2022-11-20] MEDS: guaiFENesin LA 600 MG TAB.ER.12H PO ×2 (08:35→20:49)
[2022-11-20] MEDS: Benzonatate 100 MG CAPSULE 200 MG PO ×3 (08:35→20:49)
[2022-11-20] MEDS: ARIPiprazole 2 MG TABLET PO (08:35)
[2022-11-20] MEDS: buPROPion HCl XL 300 MG TAB.ER.24H PO (08:35)
[2022-11-20] MEDS: Valsartan 160 MG TABLET PO (08:35)
[2022-11-20] MEDS: 0.9 % Sodium Chloride Flush 3 ML SYRINGE IVFLUSH ×2 (08:37→16:04)
[2022-11-20] MEDS: Insulin Lispro 100 UNIT/ML 3 ML VIAL 10 UNIT SUBCUT ×3 (08:38→17:12)
--- NOTE | 2022-11-20 10:28 | P.PNIM_ITS ---
Subjective Subjective Date of Service: 11/20/22 Interval History: overall improved, still sob Physical Exam Vital Signs: Vital Signs: Last Vital Signs Temp 97.1 F 11/20/22 07:31 Pulse 79 11/20/22 07:31 Resp 16 11/20/22 07:31 BP 169/82 H 11/20/22 07:31 Pulse Ox 96 11/20/22 07:31 O2 Del Method Nasal Cannula 11/20/22 07:31 O2 Flow Rate 2 11/20/22 07:31 BMI result Body Mass Index 29.3 wheezing bilateral, almost complete sentences Objective Data Active Medications Acetaminophen (Acetaminophen 325 Mg Tablet) 650 mg PO Q6H PRN PRN Reason: Pain, Mild (Pain Scale 1-3) Last Admin: 11/18/22 07:44 Dose: 650 mg Documented By: MARLA Albuterol/Ipratropium (Albuterol/Iprat 2.5/0.5mg 3 Ml Ampul.Neb) 3 ml INHALE RQ4H WHILE AWAKE [facility] Last Admin: 11/20/22 07:58 Dose: Not Given Documented By: DAQUAN Non-Admin Reason: Patient Refused Amlodipine Besylate (Amlodipine Besylate 10 Mg Tablet) 10 mg PO DAILY [facility]; Protocol Last Admin: 11/20/22 08:34 Dose: 10 mg Documented By: ANA Aripiprazole (Aripiprazole 2 Mg Tablet) 2 mg PO DAILY [facility] Last Admin: 11/20/22 08:35 Dose: 2 mg Documented By: ANA Benzonatate (Benzonatate 100 Mg Capsule) 200 mg PO TID [facility] Last Admin: 11/20/22 08:35 Dose: 200 mg Documented By: ANA Bupropion HCl (Bupropion Hcl Xl 150 Mg Tab.Er.24h) 150 mg PO DAILY [facility] Last Admin: 11/20/22 08:35 Dose: 150 mg Documented By: ANA Bupropion HCl (Bupropion Hcl Xl 300 Mg Tab.Er.24h) 300 mg PO DAILY [facility] Last Admin: 11/20/22 08:35 Dose: 300 mg Documented By: ANA Docusate Sodium (Docusate Sodium 100 Mg Capsule) 100 mg PO DAILY PRN PRN Reason: Constipation Enoxaparin Sodium (Enoxaparin Sodium 40 Mg/0.4 Ml Syringe) 40 mg SUBCUT Q24H [facility] Last Admin: 11/19/22 23:05 Dose: Not Given Documented By: AUGUST Non-Admin Reason: Patient Refused Glucose (Glucose Gel 15 Gm Gel..Gram.) 15 gm PO Q15M PRN; Protocol PRN Reason: per Hypoglycemia Standing Ord. Guaifenesin (Guaifenesin La 600 Mg Tab.Er.12h) 600 mg PO BID [facility] Last Admin: 11/20/22 08:35 Dose: 600 mg Documented By: ANA Hydralazine HCl (Hydralazine Hcl 25 Mg Tablet) 25 mg PO TID [facility]; Protocol Last Admin: 11/20/22 08:35 Dose: 25 mg Documented By: ANA Hydrocodone Bit/Homatropine Methylb (Hydrocodone/Homat 5/1.5/5 Ml 5 Ml Syrup) 5 ml PO Q4H PRN PRN Reason: cough Last Admin: 11/20/22 04:08 Dose: 5 ml Documented By: AUGUST Dextrose (D10) 250 mls @ 750 mls/hr IV Q15M PRN; Protocol PRN Reason: per Hypoglycemia Standing Ord. Doxycycline Hyclate 100 mg/ (Sodium Chloride) 250 mls @ 166.67 mls/hr IV Q12H [facility] Last Infusion: 11/20/22 01:55 Dose: 0 mls/hr Documented By: AUGUST Levofloxacin (Levaquin) 500 mg in 100 mls @ 100 mls/hr IV Q24H [facility] Last Infusion: 11/19/22 14:01 Dose: 0 mls/hr Documented By: YAW Insulin Glargine (Insulin Glargine,Hum.Rec.Anlog 100 Unit/Ml 10 Ml Vial) 25 unit SUBCUT BEDTIME [facility] Insulin Human Lispro (Insulin Lispro 100 Unit/Ml 3 Ml Vial) 0 unit SUBCUT QIDACHS [facility]; Protocol Last Admin: 11/20/22 08:38 Dose: Not Given Documented By: ANA Non-Admin Reason: new order for 10 units per Insulin Human Lispro (Insulin Lispro 100 Unit/Ml 3 Ml Vial) 10 unit SUBCUT TIDAC [facility] Last Admin: 11/20/22 08:38 Dose: 10 unit Documented By: ANA Methylprednisolone Sodium Succinate (Methylprednisolone Sod Succ 40 Mg/Ml Vial) 60 mg IVPUSH Q8H [facility] Last Admin: 11/20/22 03:09 Dose: 60 mg Documented By: AUGUST Ondansetron HCl (Ondansetron Hcl 4 Mg/2 Ml Vial) 4 mg IVPUSH Q8H PRN PRN Reason: Nausea and Vomiting Pharmacy Consult (Consult Rx Perform Med Rec) 1 each MISCELLANE ONCE PRN PRN Reason: Consult order Sitagliptin Phosphate (Sitagliptin Phosphate 50 Mg Tablet) 50 mg PO DAILY [facility] Last Admin: 11/20/22 08:34 Dose: 50 mg Documented By: ANA Sodium Chloride (0.9 % Sodium Chloride Flush 3 Ml Syringe) 3 ml IVFLUSH QSHIFT [facility] Last Admin: 11/20/22 08:37 Dose: 3 ml Documented By: ANA Valsartan (Valsartan 160 Mg Tablet) 160 mg PO DAILY [facility]; Protocol Last Admin: 11/20/22 08:35 Dose: 160 mg Documented By: ANA Labs 11/17/22 05:54 11/17/22 05:54 Labs: Laboratory Results - last 24 hr 11/19/22 11/19/22 11/19/22 11:25 16:35 20:02 POC Glucose 329 H 335 H 440 H* 11/20/22 07:30 POC Glucose 409 H* Assessment and Plan (1) Acute respiratory failure with hypoxia: Status: Acute (2) Community acquired pneumonia: Status: Acute (3) Persistent cough: Status: Acute Plan 56-year-old male past medical history of hypertension, diabetes, presented to the hospital with complaints of cough, shortness of breath found to have pneumonia acute hypoxic respiratory failure 2/2 community-acquired pneumonia bilateral infiltrate concerning for atypical infection\post viral negative viral panel negative cultures Elevated CRP, ESR pending Ag strep and legionella steroids and duonebs pulm following Levofloxacin and Doxy wean O2 down as tolerated cough medicine uncotnrolled hypertension Increased Amlodipine to 10 mg daily continue hydralazine diabetes with hyperflycemia basal bolus insulin, montior pocs depression anxiety wellbutrin, abilify DVT prophylaxis: Lovenox reason for continued hospitalization:still hypoxic and sob Time Spent With Patient Time: Total time managing care of this patient today ____ minutes. Quality Stroke Does the patient have a stroke diagnosis?: No VTE Prior VTE?: No VTE Risk Level:: Medical - moderate - high VTE Device Contraindication: Treatment Not Indicated VTE Drug Contraindication: N/A - Med Ordered
[2022-11-20] MEDS: levoFLOXacin/D5W 500 MG/100 ML PIGGYBACK 100 MG IV (11:00)
[2022-11-20] MEDS: Albuterol/Iprat 2.5/0.5MG 3 ML AMPUL.NEB INHALE ×3 (11:21→20:16)
[2022-11-20 11:23] LABS: Immunoglobulin E 164 kU/L (<OR=114)
[2022-11-20 11:27] LABS: Glucose, Whole Blood 348 mg/dL (60-115)
[2022-11-20] MEDS: Insulin Lispro 100 UNIT/ML 3 ML VIAL SUBCUT ×3 (11:47→21:21)
--- NOTE | 2022-11-20 12:11 | MHC.CLN ---
NUTRITION VISITED WITH PATIENT PER HIS REQUEST. EADY=[id number] KCALS PLUS GLUCERNA (NEW ORDER). REPORTS THAT IS STILL HUNGRY AFTER MEALS. INCREASING DIET KCALS TO 2200 AND DISCONTINUING SUPPLEMENT. PATIENT AGREEABLE TO PLAN.
--- NOTE | 2022-11-20 14:54 | MHC.CM.PN ---
per rounds pt not ready for dc plan remains home no servcies
[2022-11-20 16:17] LABS: Glucose, Whole Blood 347 mg/dL (60-115)
[2022-11-20] MEDS: Furosemide 40 MG/4 ML VIAL IVPUSH (17:16)
--- NOTE | 2022-11-20 17:21 | PC.NURSE ---
BP elevated 169/80 pulse 92 patient asymptomatic ,Dr. Kingston notified
[2022-11-20 20:45] LABS: Glucose, Whole Blood 570 mg/dL (60-115)
--- NOTE | 2022-11-20 21:07 | PC.NURSE ---
BS 570 ,patient states he had a peanut butter and jelly sandwiche,Dr. Garrido notified
[2022-11-20] MEDS: Insulin Glargine,Hum.rec.anlog 100 UNIT/ML 10 ML VIAL 25 UNIT SUBCUT (21:22)
[2022-11-20 21:26] LABS: Glucose, Whole Blood 542 mg/dL (60-115)
[2022-11-20] MEDS: Insulin Regular, Human 100 UNIT/ML 3 ML VIAL 10 UNIT IVPUSH (21:35)
[2022-11-20] MEDS: Enoxaparin Sodium 40 MG/0.4 ML SYRINGE SUBCUT (22:21)
[2022-11-21] VITALS (7 sets, daily range): BP systolic 140–173; BP diastolic 72–86; PULSE 67–85; RESP 16–24; TEMP 36–36.2; O2SAT 93–98
[2022-11-21] MEDS: 0.9 % Sodium Chloride Flush 3 ML SYRINGE IVFLUSH ×3 (00:54→16:33)
[2022-11-21] MEDS: Doxycycline Hyclate 100 MG in 0.9 % Sodium Chloride 250 ML 166.67 MG IV ×2 (00:54→13:22)
[2022-11-21] MEDS: methylPREDNISolone Sod Succ 40 MG/ML VIAL 60 MG IVPUSH (05:03)
[2022-11-21 06:32] LABS: Hematocrit 38.9 % (42.0-52.0); Hemoglobin 12.9 g/dl (14.0-18.0); Mean Corpuscular HGB Conc 33.2 g/dl (31.0-36.0); Mean Corpuscular Hemoglobin 28.7 pg (27.0-33.0); Mean Corpuscular Volume 86.6 fL (80.0-98.0); Mean Platelet Volume 10.1 fL (9.4-12.4); Platelet Count 366 X10*3/uL (160-400); Red Blood Count 4.49 X10*6/uL (4.60-5.80); Red Cell Distribution Width 13.1 % (11.0-16.0); White Blood Count 13.3 X10*3/uL (4.8-10.8)
[2022-11-21 06:53] LABS: Anion Gap 13 (12-20); Blood Urea Nitrogen 26 mg/dL (9-16); Calcium 9.2 mg/dL (8.4-10.2); Carbon Dioxide 30 mmol/L (22-29); Chloride 101 mmol/L (96-108); Creatinine Clr Calc Pharmacy 83.4; Estimated Glomerular Filt Rate > 60; Potassium 4.4 mmol/L (3.3-5.1); Sodium 140 mmol/L (135-145)
[2022-11-21 07:29] LABS: Glucose, Whole Blood 343 mg/dL (60-115)
[2022-11-21 07:39] LABS: Glucose Fasting 374 mg/dL (60-99)
[2022-11-21] MEDS: SITagliptin Phosphate 50 MG TABLET PO (08:33)
[2022-11-21] MEDS: buPROPion HCl XL 150 MG TAB.ER.24H PO (08:33)
[2022-11-21] MEDS: buPROPion HCl XL 300 MG TAB.ER.24H PO (08:33)
[2022-11-21] MEDS: ARIPiprazole 2 MG TABLET PO (08:34)
[2022-11-21] MEDS: hydrALAZINE HCl 25 MG TABLET PO ×3 (08:34→20:45)
[2022-11-21] MEDS: Valsartan 160 MG TABLET PO (08:34)
[2022-11-21] MEDS: guaiFENesin LA 600 MG TAB.ER.12H PO ×2 (08:34→20:46)
[2022-11-21] MEDS: amLODIPine Besylate 10 MG TABLET PO (08:34)
[2022-11-21] MEDS: Benzonatate 100 MG CAPSULE 200 MG PO ×3 (08:34→20:46)
[2022-11-21] MEDS: Insulin Lispro 100 UNIT/ML 3 ML VIAL SUBCUT ×4 (08:35→20:45)
[2022-11-21] MEDS: Insulin Lispro 100 UNIT/ML 3 ML VIAL 10 UNIT SUBCUT ×3 (08:35→16:43)
[2022-11-21] MEDS: Albuterol/Iprat 2.5/0.5MG 3 ML AMPUL.NEB INHALE ×3 (08:47→19:42)
--- NOTE | 2022-11-21 09:18 | P.PNIM_ITS ---
Subjective Subjective Date of Service: 11/21/22 Interval History: overall improved, still sob Physical Exam Vital Signs: Vital Signs: Last Vital Signs Temp 96.9 F 11/21/22 07:22 Pulse 83 11/21/22 08:49 Resp 18 11/21/22 08:49 BP 173/86 H 11/21/22 07:22 Pulse Ox 93 11/21/22 07:22 O2 Del Method Nasal Cannula 11/21/22 07:22 O2 Flow Rate 2 11/21/22 07:22 BMI result Body Mass Index 29.3 wheezing bilateral, almost complete sentences Objective Data Active Medications Acetaminophen (Acetaminophen 325 Mg Tablet) 650 mg PO Q6H PRN PRN Reason: Pain, Mild (Pain Scale 1-3) Last Admin: 11/18/22 07:44 Dose: 650 mg Documented By: MARLA Albuterol/Ipratropium (Albuterol/Iprat 2.5/0.5mg 3 Ml Ampul.Neb) 3 ml INHALE RQ4H WHILE AWAKE [facility] Last Admin: 11/21/22 08:47 Dose: 3 ml Documented By: JOSHUA Amlodipine Besylate (Amlodipine Besylate 10 Mg Tablet) 10 mg PO DAILY [facility]; Protocol Last Admin: 11/21/22 08:34 Dose: 10 mg Documented By: ANUP Aripiprazole (Aripiprazole 2 Mg Tablet) 2 mg PO DAILY [facility] Last Admin: 11/21/22 08:34 Dose: 2 mg Documented By: ANUP Benzonatate (Benzonatate 100 Mg Capsule) 200 mg PO TID [facility] Last Admin: 11/21/22 08:34 Dose: 200 mg Documented By: ANUP Bupropion HCl (Bupropion Hcl Xl 150 Mg Tab.Er.24h) 150 mg PO DAILY [facility] Last Admin: 11/21/22 08:33 Dose: 150 mg Documented By: ANUP Bupropion HCl (Bupropion Hcl Xl 300 Mg Tab.Er.24h) 300 mg PO DAILY [facility] Last Admin: 11/21/22 08:33 Dose: 300 mg Documented By: ANUP Docusate Sodium (Docusate Sodium 100 Mg Capsule) 100 mg PO DAILY PRN PRN Reason: Constipation Enoxaparin Sodium (Enoxaparin Sodium 40 Mg/0.4 Ml Syringe) 40 mg SUBCUT Q24H [facility] Last Admin: 11/20/22 22:21 Dose: 40 mg Documented By: SHERYL Glucose (Glucose Gel 15 Gm Gel..Gram.) 15 gm PO Q15M PRN; Protocol PRN Reason: per Hypoglycemia Standing Ord. Guaifenesin (Guaifenesin La 600 Mg Tab.Er.12h) 600 mg PO BID [facility] Last Admin: 11/21/22 08:34 Dose: 600 mg Documented By: ANUP Guaifenesin/Codeine Phosphate (Guaifen/Codeine Sf 200/20/10ml 10 Ml Liquid) 5 ml PO Q4H [facility] Hydralazine HCl (Hydralazine Hcl 25 Mg Tablet) 25 mg PO TID [facility]; Protocol Last Admin: 11/21/22 08:34 Dose: 25 mg Documented By: ANUP Dextrose (D10) 250 mls @ 750 mls/hr IV Q15M PRN; Protocol PRN Reason: per Hypoglycemia Standing Ord. Doxycycline Hyclate 100 mg/ (Sodium Chloride) 250 mls @ 166.67 mls/hr IV Q12H [facility] Last Infusion: 11/21/22 02:25 Dose: 0 mls/hr Documented By: ALEXSANDRA Levofloxacin (Levaquin) 500 mg in 100 mls @ 100 mls/hr IV Q24H [facility] Last Infusion: 11/20/22 12:11 Dose: 0 mls/hr Documented By: MARLA Insulin Glargine (Insulin Glargine,Hum.Rec.Anlog 100 Unit/Ml 10 Ml Vial) 25 unit SUBCUT BEDTIME [facility] Last Admin: 11/20/22 21:22 Dose: 25 unit Documented By: SHERYL Insulin Human Lispro (Insulin Lispro 100 Unit/Ml 3 Ml Vial) 0 unit SUBCUT QIDACHS [facility]; Protocol Last Admin: 11/21/22 08:35 Dose: 8 unit Documented By: ANUP Insulin Human Lispro (Insulin Lispro 100 Unit/Ml 3 Ml Vial) 10 unit SUBCUT TIDAC [facility] Last Admin: 11/21/22 08:35 Dose: 10 unit Documented By: ANUP Methylprednisolone Sodium Succinate (Methylprednisolone Sod Succ 40 Mg/Ml Vial) 60 mg IVPUSH Q8H [facility] Last Admin: 11/21/22 05:03 Dose: 60 mg Documented By: ALEXSANDRA Ondansetron HCl (Ondansetron Hcl 4 Mg/2 Ml Vial) 4 mg IVPUSH Q8H PRN PRN Reason: Nausea and Vomiting Pharmacy Consult (Consult Rx Perform Med Rec) 1 each MISCELLANE ONCE PRN PRN Reason: Consult order Sitagliptin Phosphate (Sitagliptin Phosphate 50 Mg Tablet) 50 mg PO DAILY [facility] Last Admin: 11/21/22 08:33 Dose: 50 mg Documented By: ANUP Sodium Chloride (0.9 % Sodium Chloride Flush 3 Ml Syringe) 3 ml IVFLUSH QSHIFT [facility] Last Admin: 11/21/22 08:35 Dose: 3 ml Documented By: ANUP Valsartan (Valsartan 160 Mg Tablet) 160 mg PO DAILY [facility]; Protocol Last Admin: 11/21/22 08:34 Dose: 160 mg Documented By: ANUP Labs 11/21/22 05:35 11/21/22 05:35 Labs: Laboratory Results - last 24 hr 11/18/22 11/20/22 11/20/22 12:49 11:23 16:13 MCV MCH MCHC RDW Plt Count MPV Absolute Nucleated RBC Nucleated RBC % (auto) Anion Gap Estim Creat Clear Calc Estimated GFR POC Glucose 348 H 347 H Fasting Glucose Calcium IgE 164 H 11/20/22 11/20/22 11/21/22 20:39 20:42 05:35 MCV 86.6 MCH 28.7 MCHC 33.2 RDW 13.1 Plt Count 366 D MPV 10.1 Absolute Nucleated RBC 0.000 Nucleated RBC % (auto) 0.0 Anion Gap Estim Creat Clear Calc Estimated GFR POC Glucose 542 H* 570 H* Fasting Glucose Calcium IgE 11/21/22 11/21/22 05:35 07:20 MCV MCH MCHC RDW Plt Count MPV Absolute Nucleated RBC Nucleated RBC % (auto) Anion Gap 13 Estim Creat Clear Calc 83.4 Estimated GFR > 60 POC Glucose 343 H Fasting Glucose 374 H* Calcium 9.2 IgE Microbiology Microbiology Results: Microbiology 11/15/22 16:39 Blood Culture - Final Blood - Venous No growth after 5 days. 11/15/22 16:39 Blood Culture - Final Blood - Venous No growth after 5 days. Assessment and Plan (1) Acute respiratory failure with hypoxia: Status: Acute (2) Community acquired pneumonia: Status: Acute (3) Persistent cough: Status: Acute Plan 56-year-old male past medical history of hypertension, diabetes, presented to the hospital with complaints of cough, shortness of breath found to have pneumo star acute hypoxic respiratory failure 2/2 community-acquired pneumonia bilateral infiltrate concerning for atypical infection\post viral negative viral panel negative cultures Elevated CRP, ESR pending Ag strep and legionella steroids and duonebs pulm following Levofloxacin and Doxy wean O2 down as tolerated cough medicine uncotnrolled hypertension Increased Amlodipine to 10 mg daily continue hydralazine diabetes with hyperglycemia basal bolus insulin, monitor pocs depression anxiety wellbutrin, abilify DVT prophylaxis: Lovenox reason for continued hospitalization:still hypoxic and sob Time Spent With Patient Time: Total time managing care of this patient today ____ minutes. Quality Stroke Does the patient have a stroke diagnosis?: No VTE Prior VTE?: No VTE Risk Level:: Medical - moderate - high VTE Device Contraindication: Treatment Not Indicated VTE Drug Contraindication: N/A - Med Ordered
[2022-11-21] MEDS: guaiFEN/Codeine SF 200/20/10ML 10 ML LIQUID 5 ML PO ×4 (09:28→20:44)
[2022-11-21 11:23] LABS: Glucose, Whole Blood 438 mg/dL (60-115)
[2022-11-21] MEDS: levoFLOXacin/D5W 500 MG/100 ML PIGGYBACK 100 MG IV (11:57)
[2022-11-21 16:36] LABS: Glucose, Whole Blood 336 mg/dL (60-115)
[2022-11-21 20:10] LABS: Glucose, Whole Blood 318 mg/dL (60-115)
[2022-11-21] MEDS: Insulin Glargine,Hum.rec.anlog 100 UNIT/ML 10 ML VIAL 25 UNIT SUBCUT (20:44)
[2022-11-22] MEDS: Doxycycline Hyclate 100 MG in 0.9 % Sodium Chloride 250 ML 166.67 MG IV (00:22)
[2022-11-22] MEDS: guaiFEN/Codeine SF 200/20/10ML 10 ML LIQUID 5 ML PO ×3 (00:26→07:57)
[2022-11-22] MEDS: 0.9 % Sodium Chloride Flush 3 ML SYRINGE IVFLUSH ×2 (00:30→07:59)
[2022-11-22 03:28] VITALS: BP 159/74; PULSE 86; RESP 16; TEMP 36.1; O2SAT 96
[2022-11-22 06:32] LABS: Hematocrit 39.8 % (42.0-52.0); Mean Corpuscular HGB Conc 32.7 g/dl (31.0-36.0); Mean Corpuscular Hemoglobin 28.7 pg (27.0-33.0); Mean Corpuscular Volume 87.9 fL (80.0-98.0); Mean Platelet Volume 10.1 fL (9.4-12.4); Platelet Count 358 X10*3/uL (160-400); Red Blood Count 4.53 X10*6/uL (4.60-5.80); Red Cell Distribution Width 13.2 % (11.0-16.0); White Blood Count 10.4 X10*3/uL (4.8-10.8)
[2022-11-22 07:20] VITALS: BP 161/84; PULSE 75; RESP 17; TEMP 36.8; O2SAT 96
[2022-11-22 07:30] LABS: Glucose, Whole Blood 299 mg/dL (60-115)
[2022-11-22] MEDS: Insulin Lispro 100 UNIT/ML 3 ML VIAL SUBCUT ×3 (07:56→11:36)
[2022-11-22] MEDS: guaiFENesin LA 600 MG TAB.ER.12H PO (07:57)
[2022-11-22] MEDS: ARIPiprazole 2 MG TABLET PO (07:57)
[2022-11-22] MEDS: Valsartan 160 MG TABLET PO (07:57)
[2022-11-22] MEDS: amLODIPine Besylate 10 MG TABLET PO (07:58)
[2022-11-22] MEDS: Benzonatate 100 MG CAPSULE 200 MG PO (07:58)
[2022-11-22] MEDS: hydrALAZINE HCl 25 MG TABLET PO (07:58)
[2022-11-22] MEDS: buPROPion HCl XL 150 MG TAB.ER.24H PO (07:58)
[2022-11-22] MEDS: predniSONE 20 MG TABLET 40 MG PO (07:58)
[2022-11-22] MEDS: SITagliptin Phosphate 50 MG TABLET PO (07:58)
[2022-11-22] MEDS: buPROPion HCl XL 300 MG TAB.ER.24H PO (07:58)
[2022-11-22] MEDS: Albuterol/Iprat 2.5/0.5MG 3 ML AMPUL.NEB INHALE (08:05)
[2022-11-22 08:07] VITALS: PULSE 74; RESP 18
--- NOTE | 2022-11-22 08:49 | P.PNPL_ITS ---
Subjective Subjective Date of Service: 11/22/22 Interval history: The patient was seen on exam. Feeling a little better. Still requiring oxygen. He did have a CT scan of the chest that was personally by me. It appears to have some interstitial changes at the bases likely from his acute respiratory illness. In addition to have evidence of bronchiolitis that is primarily in the mid lung areas. His hypersensitive panel still pending. Legionella and urine pneumococcal antigen also still pending. He is weaning off the Solu-Medrol. 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 He does work which [employer] but this seems to be a good exhaust system. If the patient still requires oxygen upon discharge he will not be able to perform his duties specially because of the risk of fire. Objective Data Labs 11/22/22 05:41 11/22/22 05:41 Labs: Laboratory Results - last 24 hr 11/21/22 11/21/22 11/21/22 11:10 16:33 20:05 WBC RBC Hgb Hct MCV MCH MCHC RDW Plt Count MPV Absolute Nucleated RBC Nucleated RBC % (auto) Sodium Potassium Chloride Carbon Dioxide Anion Gap BUN Creatinine Estim Creat Clear Calc Estimated GFR POC Glucose 438 H* 336 H 318 H Fasting Glucose Calcium 11/22/22 11/22/22 11/22/22 05:41 05:41 07:25 WBC 10.4 RBC 4.53 L Hgb 13.0 L Hct 39.8 L MCV 87.9 MCH 28.7 MCHC 32.7 RDW 13.2 Plt Count 358 MPV 10.1 Absolute Nucleated RBC 0.000 Nucleated RBC % (auto) 0.0 Sodium 140 Potassium 4.4 Chloride 104 Carbon Dioxide 29 Anion Gap 11 L BUN 30 H Creatinine 1.04 Estim Creat Clear Calc 84.2 Estimated GFR > 60 POC Glucose 299 H Fasting Glucose 348 H Calcium 8.7 Microbiology Microbiology Results: Microbiology 11/15/22 16:39 Blood - Venous Blood Culture - Final No growth after 5 days. 11/15/22 16:39 Blood - Venous Blood Culture - Final No growth after 5 days. Review of Systems Constitutional: Reports fatigue and Denies fever(s) Eyes: Denies change in vision Denies vertigo Cardiovascular: Denies chest pain, Reports dyspnea and Reports dyspnea on exertion Respiratory: Reports chest congestion, Reports cough, Denies hemoptysis, Denies excessive phlegm production, Denies pain on inspiration, Denies pain with cough, Reports dyspnea, Reports dyspnea on exertion and Reports wheezing Gastrointestinal: Reports no additional gastrointestinal complaints Musculoskeletal: Reports no additional musculoskeletal complaints Denies vertigo Endocrine: Reports fatigue Hematologic/Lymphatic: Denies easy bleeding, Denies easy bruising and Denies lymphadenopathy Allergic/Immunologic: Reports wheezing Physical Exam Vital Signs: Vital Signs: Last Vital Signs Temp 98.3 F 11/22/22 07:20 Pulse 74 11/22/22 08:07 Resp 18 11/22/22 08:07 BP 161/84 H 11/22/22 07:20 Pulse Ox 96 11/22/22 07:20 O2 Del Method Nasal Cannula 11/22/22 07:20 O2 Flow Rate 2.0 11/22/22 07:20 BMI result Body Mass Index 29.3 Const: General: comfortable HEENT: Head: Yes normocephalic Eyes: General: appearance normal, both eyes and all related structures Neck: Neck: Yes supple Chest: Chest palpation & inspection: normal inspection of the chest Resp: Effort & Inspection: normal respiratory effort Auscultation: crackles, no wheezes and diminished lung sounds Cardio: Rate: regular rate Rhythm: regular rhythm Heart sounds: S1 normal heart sound present and S2 normal heart sound present GI: Palpation (GI): Soft to palpation Skin: General skin exam: no rashes or lesions noted Extrem: General: Yes no clubbing, cyanosis or edema Procedures Date of Service Date of Service: 11/22/22 Assessment and Plan Assessment and plan (1) Acute respiratory failure with hypoxia: Status: Acute (2) Community acquired pneumonia: Status: Acute (3) ILD (interstitial lung disease): Status: Acute Plan prednisone taper start Breo Albuterol as needed assess for oxygen need, may need oxygen supplementation upon discharge F/U with outpt pulmonary in 2-3 weeks Time Spent With Patient Time: Total time managing care of this patient today ____ minutes. Progress Note: Quality Stroke Does the patient have a stroke diagnosis?: No
--- NOTE | 2022-11-22 10:28 | W.MHC.F2F ---
Service Date Service Date: 11/22/22 Encounter Date of encounter: 11/22/22 Reasons for Services Signs and symptoms assessed: sob on exertion Reason for prison: medication management, medication treatment and teach disease management Homebound: Leaving the home is medically contraindicated at this time without the asist of a device and/or another person due th the listed conditions above and below. Reason homebound: shortness of breath with minimal effort Certification: Based on the above findings, I certify that this patient is confined to the home and needs intermittent prison care, physical therapy and/or speech therapy, or continues to need occupational therapy. The patient is under my care, and I have initiated the establishment of the plan of care. The patient will be followed by a physician who will periodically review the plan of care. Time Spent With Patient Time: Total time managing care of this patient today ____ minutes.
--- NOTE | 2022-11-22 10:28 | PM.DS ---
DS: Providers Provider Date of Service: 11/22/22 Date of admission: 11/15/22 21:11 Primary care physician: Manpreet Tabares MD Consults: 11/18/22 08:59 Consult to Pulmonology Routine Consulting Provider: [facility] Reason for consultation: Hypoxia 2/2 pna for eval. 11/21/22 13:43 Consult to Care Team Routine Comment: Reason for consultation: depression (patient request) DS: Diagnosis Discharge Diagnosis (1) Acute respiratory failure with hypoxia: Status: Acute (2) Community acquired pneumonia: Status: Acute (3) ILD (interstitial lung disease): Status: Acute DS: Summary Hospital Course Hospital Course: from initial hpi: 56-year-old male with past medical history of diabetes, hypertension, LBBB, [facility] complaining of cough and shortness of breath.? Patient reports her symptoms started about a week ago, worsening cough, seen? in the hospital on 11/13, given cough medication, no relief, returns today having worsening shortness of breath and cough.? Patient reports chills, no fever, no orthopnea PND,? chest wall pain from coughing, no nausea vomiting, no abdominal pain diarrhea constipation, no urinary symptoms and no lower extremity edema.? Patient found to be hypoxic satting 90% on 3 L of oxygen,? satting to 80% on room air upon? minimal exertion Labs are significant for? WBC count of 9.6, hemoglobin of 11.9, hematocrit of 30.1, lactic acid of 2.2 resolved after IV fluid to 1.3 COVID-19, influenza, RSV negative X-ray of the chest shows increased interstitial thickening and patchy opacities compared to 11/13 concerning for atypical pneumonia ?patient started on? IV antibiotics or be admitted further management hospital course: patient was admitted for acute hypoxic respiratory failure due to pneumonia complicated by some pulmonary scarring and reactive airway. viral panel wa snegative, strep and legionella pending. was treated with levaquin and doxy, and steroids and bronchodilators. eventually had some improvement. will be discharged home on 7 more days levaquin and prednisone taper, will follow up with pulmonary as outpatient. for uncontrolled hypertension was treated with amldoipine 10mg dialy and hydralazine 25mg tid. for dm with hyperglycemia was treated with basal bolus insulin. for depression and anxiety was given wellbutrin and abilify. Time Spent with Patient Time attestation: Total time managing care of this patient today ____ minutes. Discharge coordination time: Greater than 30 minutes Quality: Safe Use of Opioids Does Pt have an Active Cancer Diagnosis on the Problem List?: No Quality: Stroke Does the patient have a stroke diagnosis?: No Physical Exam Vital Signs: Vital Signs: Last Vital Signs Temp 98.3 F 11/22/22 07:20 Pulse 74 11/22/22 08:07 Resp 18 11/22/22 08:07 BP 161/84 H 11/22/22 07:20 Pulse Ox 96 11/22/22 07:20 O2 Del Method Nasal Cannula 11/22/22 07:20 O2 Flow Rate 2.0 11/22/22 07:20 BMI result Body Mass Index 29.3 General: AO X 3, no acute distress Resp: CTA bilateral, no accessory muscles used CVS: S1,S2,RRR GI: soft, non tender, non distended Neuro: motor grossly intact, alert Psych: appropriate affect, appropriate insight DS: Data Data Completed and Pending Completed studies during hospitalization [Text1]: Procedures Drainage of Left Foot Subcutaneous Tissue and Fascia, Open Approach (04/10/22) Excision of Left Metatarsal, Open Approach, Diagnostic (04/10/22) Insertion of Infusion Device into Superior Vena Cava, Percutaneous Approach (04/10/22) Ultrasonography of Superior Vena Cava, Guidance (04/10/22) Labs on day of discharge: Laboratory Results - last 24 hr 11/21/22 11/21/22 11/21/22 11:10 16:33 20:05 WBC RBC Hgb Hct MCV MCH MCHC RDW Plt Count MPV Absolute Nucleated RBC Nucleated RBC % (auto) Sodium Potassium Chloride Carbon Dioxide Anion Gap BUN Creatinine Estim Creat Clear Calc Estimated GFR POC Glucose 438 H* 336 H 318 H Fasting Glucose Calcium 11/22/22 11/22/22 11/22/22 05:41 05:41 07:25 WBC 10.4 RBC 4.53 L Hgb 13.0 L Hct 39.8 L MCV 87.9 MCH 28.7 MCHC 32.7 RDW 13.2 Plt Count 358 MPV 10.1 Absolute Nucleated RBC 0.000 Nucleated RBC % (auto) 0.0 Sodium 140 Potassium 4.4 Chloride 104 Carbon Dioxide 29 Anion Gap 11 L BUN 30 H Creatinine 1.04 Estim Creat Clear Calc 84.2 Estimated GFR > 60 POC Glucose 299 H Fasting Glucose 348 H Calcium 8.7 Discharge Plan Discharge Anticipated Discharge Date/Time: 11/22/22 10:25 Patient Disposition: Home Health Service Discharge Diagnosis: ild, hypoxia Referrals: Manpreet Tabares MD [Primary Care Provider] - 1 Week Juan Carlos Vale MD [Physician] - 1 Week Discharge Medications: New prednisone 20 mg Tablet 40 mg PO DAILY Qty: 15 0RF Rx Instructions: 40mg daily for 5 days then 20mg daily for 5 days hydralazine 25 mg Tablet 25 mg PO TID Qty: 90 0RF Protocol: Hold for SBP< HOLD for SBP < : 90 levofloxacin 500 mg tablet 500 mg PO DAILY Qty: 7 0RF Continued bupropion HCl 300 mg tablet extended release 24 hr 1 tab PO DAILY Qty: 30 0RF bupropion HCl 150 mg tablet extended release 24 hr 1 tab PO DAILY Qty: 30 0RF aripiprazole [Abilify] 2 mg tablet 2 mg PO DAILY Qty: 30 0RF amlodipine 5 mg tablet 5 mg PO DAILY erythromycin 5 mg/gram (0.5 %) ointment 1 appl ophthalmic (eye) QID valsartan 160 mg tablet 160 mg PO DAILY metformin 1,000 mg Tablet Extended Release 24 Hr 1,000 mg PO BID Januvia 50 mg Tablet 50 mg PO DAILY benzonatate 100 mg capsule 100 mg PO TID PRN (Reason: cough) Qty: 20 0RF olopatadine [Pataday Twice Daily Relief] 0.1 % drops 1 drp ophthalmic (eye) BID Qty: 5 0RF Rx Instructions: separate doses by at least 6-8 hours Discharge Orders: Discharge Order (Routine); Ordered 11/22/22 Ordered By: Shekhar Kingston Diet: Advance to usual diet Activity on Discharge: As tolerated Stand Alone Forms: Patient Portal Discharge page Care Plan Goals: recovery Health Concerns: hypoxia Plan of Treatment: levaquin, steroids, pulm follow up Assessment: see above
[2022-11-22 11:15] VITALS: O2SAT 92; O2SAT 95; O2SAT 96
[2022-11-22 11:20] LABS: Glucose, Whole Blood 276 mg/dL (60-115)
[2022-11-22] MEDS: Insulin Lispro 100 UNIT/ML 3 ML VIAL 10 UNIT SUBCUT ×2 (11:34→11:37)
--- NOTE | 2022-11-22 11:42 | MHC.CM.PN ---
HOME O2 EVAL PENDING PT WILL DC HOME TODAY LIKELY WITH NEW O2 REFERRAL MADE TO [facility] TO ARRANGE TRANSPORT
[2022-11-23 21:43] LABS: Strep Pneumo Ag urine Not Detected (Not Detected)
[2022-11-25 14:23] LABS: Asperg fumigatus Precip Abs NEGATIVE (NEGATIVE); Micropoly faeni Abs NEGATIVE (NEGATIVE); Pigeon serum Abs NEGATIVE (NEGATIVE); Saccharo pora viridis Abs NEGATIVE (NEGATIVE); Thermo candidus Abs NEGATIVE (NEGATIVE); Thermoa vulgaris #1 NEGATIVE (NEGATIVE)
[2022-11-28 06:18] LABS: Legionella Ag Urine Not Detected (Not Detected)
== END 2022-11-22 12:44 | disposition home health service (06) | DRG 139 ==
LOC: HO.ED 20:49 → HO.EDOVER 11-16 00:49 → HO.S3 11-16 01:32
PROVIDERS: Hospitalist; Physician Assistant; Student in an Organized Health Care Education/Training Program; Admitting Provider Internal Medicine; Emergency Provider Emergency Medicine; PCP Family Medicine; Visit Provider Internal Medicine
DX: J18.9 Pneumonia, unspecified organism (principal); J96.01 Acute respiratory failure with hypoxia; I10 Essential (primary) hypertension; E78.00 Pure hypercholesterolemia, unspecified; E11.65 Type 2 diabetes mellitus with hyperglycemia; F41.9 Anxiety disorder, unspecified; F32.A Depression, unspecified; Z20.822 Contact with and (suspected) exposure to COVID-19; Z88.5 Allergy status to narcotic agent; Z79.84 Long term (current) use of oral hypoglycemic drugs; Z79.899 Other long term (current) drug therapy
CPT/HCPCS: 0241U; 36415; 71045; 71046; 71250; 80048; 80076; 82785; 82947; 83605; 83735; 83880; 84484; 85007; 85025; 85027; 85652; 86140; 86331; 86606; 86609; 87040; 87449; 87633; 87899; 93005; 94640; 99285; J0456; J0696; J1200; J1650; J1940; J1956; J2920

== ENCOUNTER 2022-11-25 10:17 | Emergency (ER) | payer BC, SELFPAY ==
[2022-11-25 10:41] VITALS: BP 150/76; PULSE 90; RESP 18; TEMP 36.7; O2SAT 98; BMI 28.9
--- NOTE | 2022-11-25 11:09 | ECG_ITS ---
Test Reason : hyperglycemia Blood Pressure : / mmHG Vent. Rate : 083 BPM Atrial Rate : 083 BPM P-R Int : 142 ms QRS Dur : 140 ms QT Int : 424 ms P-R-T Axes : 025 011 105 degrees QTc Int : 498 ms Normal sinus rhythm Left bundle branch block Abnormal ECG When compared with ECG of 15-NOV-2022 23:58, No significant change was found Referred By: Mary Lerma Electronically Signed By:Clifton Castro
[2022-11-25 11:45] VITALS: BP 111/56; PULSE 95; RESP 18; TEMP 36.7
[2022-11-25 12:02] LABS: Appearance Urine Clear; Color Urine Yellow; Glucose Urine UA >=1000 mg/dL (Negative); Leukocyte Esterase Urine Negative (Negative); Nitrite Urine Negative (Negative); PH 5.5 (5.0-9.0); Specific Gravity - Urine >= 1.030 (1.005-1.025); UMIC TRIGGER UACC YES; Urine Blood Negative (Negative); Urine Ketones Negative (Negative); Urine Protein Negative (Neg-Trace)
[2022-11-25 12:07] LABS: Bacteria Urine None Seen (None Seen); Hyaline Casts Urine 0-2 /LPF (0-2); RBC Urine 0-2 /HPF (0-2); Squamous Epithelial Cell Urine 0-2 /HPF (0-2); WBC Urine 0-5 /HPF (0-5)
--- NOTE | 2022-11-25 12:12 | PC.NURSE ---
Alert and oriented, but states he feels confused. States BS was high this morning so he called his PCP who stated to call [facility]. Visiting nurse came to his house and BS was in the 200`s and she directed him to the ER. States frequency with urination and BM`s. States pain from coughig i chest since November 13 but no new chest pain. States more depressed because he has not been feeling well but denies having a plan
[2022-11-25 12:33] LABS: Glucose, Whole Blood 345 mg/dL (60-115)
[2022-11-25 12:43] LABS: Basophils Percent Auto 0.1 % (0-2); Eosinophils Percent Auto 0.1 % (0-4); Hematocrit 40.2 % (42.0-52.0); Imm Gran Abs Auto 0.18 X10*3/uL (0.00-0.03); Imm Gran Pct Auto 1.2 % (0.0-0.4); Lymphocytes Absolute Auto 0.6 X10*3/uL (1.2-4.9); Lymphocytes Percent Auto 3.9 % (20-40); MANUAL DIFF FLAG SCAN; Mean Corpuscular HGB Conc 32.3 g/dl (31.0-36.0); Mean Corpuscular Hemoglobin 28.4 pg (27.0-33.0); Mean Corpuscular Volume 87.8 fL (80.0-98.0); Mean Platelet Volume 9.9 fL (9.4-12.4); Monocytes Absolute Auto 0.3 X10*3/uL (0.1-1.2); Monocytes Percent Auto 1.6 % (2-11); Neutrophils Absolute Auto 14.2 x10*3/uL (2.0-8.3); Neutrophils Percent Auto 93.1 % (45-73); Platelet Count 330 X10*3/uL (160-400); Red Blood Count 4.58 X10*6/uL (4.60-5.80); Red Cell Distribution Width 13.9 % (11.0-16.0); SCAN SMEAR FLAG 1; White Blood Count 15.3 X10*3/uL (4.8-10.8)
[2022-11-25 12:53] LABS: Acetone, serum QL Negative (Negative)
[2022-11-25 12:59] LABS: Alanine Aminotransferase 17 U/L (0-40); Albumin Level 3.3 g/dL (3.5-5.0); Alkaline Phosphatase 92 U/L (39-117); Anion Gap 14 (12-20); Aspartate Amino Transferase 12 U/L (5-37); Bilirubin Total 0.4 mg/dL (0.0-1.0); Blood Urea Nitrogen 31 mg/dL (9-16); Calcium 9.7 mg/dL (8.4-10.2); Carbon Dioxide 27 mmol/L (22-29); Chloride 105 mmol/L (96-108); Creatinine Clr Calc Pharmacy 79.8; Estimated Glomerular Filt Rate > 60; Potassium 5.2 mmol/L (3.3-5.1); Sodium 141 mmol/L (135-145); Total Protein 5.8 g/dL (6.5-8.0)
[2022-11-25 13:07] LABS: Glucose Random 354 mg/dL (60-115)
--- NOTE | 2022-11-25 13:08 | PC.NURSE ---
CRITICAL GLUCOSE 354. RESULTS DOCUMENTED IN DESIGNATED AREA. PRIMARY NURSE AWARE
[2022-11-25 13:16] LABS: SLIDE REVIEW VERIFIED
--- NOTE | 2022-11-25 13:39 | ED.GENADULT ---
HPI - General Adult General Chief complaint: General Medical Stated complaint: Hypergylcemia/SOB Time Seen by Provider: 11/25/22 11:01 Source: patient Mode of arrival: ambulatory History of Present Illness HPI narrative: 56-year-old male who arrives with chronic depression and recently discharged for pneumonia and was sent in by the nurse practitioner and the [facility] after he was noted to have an elevated glucose and also with complaints that he is not feeling very well. Patient complaints of continued shortness of breath on climbing stairs but while at rest no problem and he was discharged 11/22 on Levaquin and prednisone. He otherwise denies any fever, chills and has continued to eat and drink without difficulty. Patient states that is nurse practitioner did prescribe him insulin to help augment the metformin. Patient also describes chronic feelings of sadness and chronic suicidality for which he is currently under the supervision care of a therapist he denies any plan and states that this is common for him. Related Data Home Medications Medication Instructions Recorded Confirmed erythromycin 5 mg/gram (0.5 %) eye 1 appl ophthalmic (eye) QID 11/15/22 11/15/22 ointment metformin 1,000 mg tablet,extended 1,000 mg PO BID 11/15/22 11/15/22 release 24hr sitagliptin phosphate 50 mg tablet 50 mg PO DAILY 11/15/22 11/15/22 (Januvia) valsartan 160 mg tablet 160 mg PO DAILY 11/15/22 11/15/22 Previous Rx's Medication Instructions Recorded aripiprazole 2 mg tablet (Abilify) 2 mg PO DAILY #30 tabs 03/14/22 bupropion HCl 150 mg 24 hr tablet, 1 tab PO DAILY #30 tabs 03/14/22 extended release bupropion HCl 300 mg 24 hr tablet, 1 tab PO DAILY #30 tabs 03/14/22 extended release benzonatate 100 mg capsule 100 mg PO TID PRN cough #20 caps 11/13/22 olopatadine 0.1 % eye drops 1 drp ophthalmic (eye) BID #5 mL 11/13/22 (Pataday Twice Daily Relief) amlodipine 10 mg tablet 10 mg PO DAILY #30 tabs 11/22/22 hydralazine 25 mg tablet 25 mg PO TID #90 tabs 11/22/22 levofloxacin 500 mg tablet 500 mg PO DAILY #7 tabs 11/22/22 prednisone 20 mg tablet 40 mg PO DAILY #15 tabs 11/22/22 Allergies Allergy/AdvReac Type Severity Reaction Status Date / Time codeine [CODEINE] Allergy Unknown delayed Verified 11/25/22 10:40 responses 02/24/17 Review of Systems Review of Systems: Pertinent positives and negatives as stated in the HPI FOR[facility]LY [facility] Past Medical History Source: nursing notes reviewed Medical History Depression Diabetic foot ulcer HTN (hypertension) ILD (interstitial lung disease) LBBB (left bundle branch block) Osteomyelitis Preop cardiovascular exam Suicidal ideation Type 2 diabetes mellitus with foot ulcer Surgical History H/O: vasectomy Family History Family History Father Neck malignant neoplasm Social History Social History Household Members: Spouse and Family Housing: House Do you presently have visiting nurse or other home services: No Alcohol intake: current Alcohol intake frequency: a few times a month Patient Tobacco Use Status: Never used Tobacco Smoked in Last 30 Days: No Second Hand Smoke Exposure: No Use of substances other than those prescribed or required for medical reasons: No Substance Use Type: Marijuana Advance Directives: Yes Advance Directives on File: Yes Advance Directives Date on File: 04/11/22 service: No Current occupational status: employed Sexual orientation: Straight/Heterosexual Physical Exam ED Vital Signs: Vital Signs - 24 hr 11/25/22 10:41 11/25/22 11:45 11/25/22 13:40 Temperature 98.1 F 98.0 F Pulse Rate 90 95 79 Respiratory Rate 18 18 18 Blood Pressure 150/76 H 111/56 L 120/62 Pulse Oximetry 98 96 Oxygen Delivery Method Room Air Room Air 11/25/22 14:33 Temperature Pulse Rate 88 Respiratory Rate 18 Blood Pressure 120/62 Pulse Oximetry Oxygen Delivery Method Room Air BMI result Body Mass Index 28.9 VITAL SIGNS: Reviewed. GENERAL: Well developed, well nourished, in no acute distress. HEAD: Normocephalic/atraumatic EYES: PERRLA, EOMI EARS: Ext canals without abnormality NOSE: Nares patent bilateral OROPHARYNX: no oral lesions noted, posterior pharynx clear NECK: Supple, no adenopathy LUNGS: Normal breath sounds. No adventitious sounds or accessory muscle use. SpO2<98> CARDIOVASCULAR: Regular rate and rhythm without noted murmurs ABDOMEN: Soft, non-tender, non-distended with bowel sounds. MUSCULOSKELETAL: No tenderness, deformities, or effusions noted on gross inspection. EXTREMITIES: No cyanosis, clubbing or edema. SKIN: Inspection of the skin reveals no rashes NEUROLOGIC: Alert and oriented x 4. Strength and sensation to light touch were grossly intact x 4. Medications Administered Discontinued Medications Generic Name Dose Route Start Last Admin Trade Name Freq PRN Reason Stop Dose Admin Sodium Chloride 1,000 mls @ 999 mls/hr 11/25/22 14:00 11/25/22 16:05 Ns IV 11/25/22 15:00 Infused .Q1H1M MICHELLE Infusion Medical Decision Making Medical Decision Making [facility] Narrative: 56-year-old male with history and clinical presentation most consistent with medication related hyperglycemia, as far as I can tell his nurse practitioner did the appropriate thing and ordering additional insulin for glycemic coverage during the duration of his prednisone. I endorsed to the patient that this was very appropriate and the high sugar levels were to be somewhat expected and that he should continue with the treatment regimen as this was going to treat his underlying pneumonia. I also instructed that he would continue to watch his diet and that it is expected that he will feel less than optimal currently due to his pneumonia diagnosis. I reviewed all investigations. My interpretation is that patient has prednisone associated leukocytosis, in addition, he has prednisone induced hyperglycemia, and it is my opinion at this time that patient is experiencing his typical chronic feelings of sadness and that this is not an acute suicidal ideation. Patient has multiple resources at home with a significant other, visiting nurse. He is otherwise hemodynamically stable. Will give 1 L of IV fluids and repeat BMP. Signed out to Dr Dover. Differential Diagnosis Please see the discussion above Lab Data Please see the discussion above 11/25/22 12:27 11/25/22 12:27 Labs: Lab Results 11/25/22 11/25/22 11/25/22 Range/Units 10:34 11:55 12:27 WBC (4.8-10.8) X10*3/uL RBC (4.60-5.80) X10*6/uL Hgb (14.0-18.0) g/dl Hct (42.0-52.0) % MCV (80.0-98.0) fL MCH (27.0-33.0) pg MCHC (31.0-36.0) g/dl RDW (11.0-16.0) % Plt Count (160-400) X10*3/uL MPV (9.4-12.4) fL Immature Gran % (Auto) (0.0-0.4) % Neut % (Auto) (45-73) % Lymph % (Auto) (20-40) % [place] % (Auto) (2-11) % Eos % (Auto) (0-4) % Baso % (Auto) (0-2) % Lymph # (Auto) (1.2-4.9) X10*3/uL [place] # (Auto) (0.1-1.2) X10*3/uL Eos # (Auto) (0.0-0.4) X10*3/uL Baso # (Auto) (0.0-0.2) X10*3/uL Abs Immat Gran (auto) (0.00-0.03) X10*3/uL Absolute Neuts (auto) (2.0-8.3) x10*3/uL Absolute Nucleated RBC (0.0-0.012) X10*3/uL Nucleated RBC % (auto) (0.0-0.2) /100WBC Smear Tech's Comments Sodium 141 (135-145) mmol/L Potassium 5.2 H (3.3-5.1) mmol/L Chloride 105 (96-108) mmol/L Carbon Dioxide 27 (22-29) mmol/L Anion Gap 14 (12-20) BUN 31 H (9-16) mg/dL Creatinine 1.09 (0.5-1.4) mg/dL Estim Creat Clear Calc 79.8 Estimated GFR > 60 POC Glucose 312 H (60-115) mg/dL Random Glucose 354 H* (60-115) mg/dL Calcium 9.7 (8.4-10.2) mg/dL Total Bilirubin 0.4 (0.0-1.0) mg/dL AST 12 (5-37) U/L ALT 17 (0-40) U/L Alkaline Phosphatase 92 (39-117) U/L Total Protein 5.8 L (6.5-8.0) g/dL Albumin 3.3 L (3.5-5.0) g/dL Urine Color Yellow Urine Appearance Clear Urine pH 5.5 (5.0-9.0) Ur Specific [place] >= 1.030 H (1.005-1.025) Urine Protein Negative (Neg-Trace) mg/dL Urine Glucose (UA) >=1000 H (Negative) mg/dL Urine Ketones Negative (Negative) mg/dL Urine Blood Negative (Negative) Urine Nitrite Negative (Negative) Ur Leukocyte Esterase Negative (Negative) Urine RBC 0-2 (0-2) /HPF Urine WBC 0-5 (0-5) /HPF Ur Squamous Epith Cells 0-2 (0-2) /HPF Urine Bacteria None Seen (None Seen) Hyaline Casts 0-2 (0-2) /LPF Acetone, Qual (Negative) 11/25/22 11/25/22 11/25/22 Range/Units 12:27 12:27 12:29 WBC 15.3 H (4.8-10.8) X10*3/uL RBC 4.58 L (4.60-5.80) X10*6/uL Hgb 13.0 L (14.0-18.0) g/dl Hct 40.2 L (42.0-52.0) % MCV 87.8 (80.0-98.0) fL MCH 28.4 (27.0-33.0) pg MCHC 32.3 (31.0-36.0) g/dl RDW 13.9 (11.0-16.0) % Plt Count 330 (160-400) X10*3/uL MPV 9.9 (9.4-12.4) fL Immature Gran % (Auto) 1.2 H (0.0-0.4) % Neut % (Auto) 93.1 H (45-73) % Lymph % (Auto) 3.9 L (20-40) % [place] % (Auto) 1.6 L (2-11) % Eos % (Auto) 0.1 (0-4) % Baso % (Auto) 0.1 (0-2) % Lymph # (Auto) 0.6 L (1.2-4.9) X10*3/uL [place] # (Auto) 0.3 (0.1-1.2) X10*3/uL Eos # (Auto) 0.0 (0.0-0.4) X10*3/uL Baso # (Auto) 0.0 (0.0-0.2) X10*3/uL Abs Immat Gran (auto) 0.18 H (0.00-0.03) X10*3/uL Absolute Neuts (auto) 14.2 H (2.0-8.3) x10*3/uL Absolute Nucleated RBC 0.000 (0.0-0.012) X10*3/uL Nucleated RBC % (auto) 0.0 (0.0-0.2) /100WBC Smear Tech's Comments VERIFIED Sodium (135-145) mmol/L Potassium (3.3-5.1) mmol/L Chloride (96-108) mmol/L Carbon Dioxide (22-29) mmol/L Anion Gap (12-20) BUN (9-16) mg/dL Creatinine (0.5-1.4) mg/dL Estim Creat Clear Calc Estimated GFR POC Glucose 345 H (60-115) mg/dL Random Glucose (60-115) mg/dL Calcium (8.4-10.2) mg/dL Total Bilirubin (0.0-1.0) mg/dL AST (5-37) U/L ALT (0-40) U/L Alkaline Phosphatase (39-117) U/L Total Protein (6.5-8.0) g/dL Albumin (3.5-5.0) g/dL Urine Color Urine Appearance Urine pH (5.0-9.0) Ur Specific [place] (1.005-1.025) Urine Protein (Neg-Trace) mg/dL Urine Glucose (UA) (Negative) mg/dL Urine Ketones (Negative) mg/dL Urine Blood (Negative) Urine Nitrite (Negative) Ur Leukocyte Esterase (Negative) Urine RBC (0-2) /HPF Urine WBC (0-5) /HPF Ur Squamous Epith Cells (0-2) /HPF Urine Bacteria (None Seen) Hyaline Casts (0-2) /LPF Acetone, Qual Negative (Negative) Independent Interpretation I performed an independent interpretation of an: EKG Interpretation: Normal sinus rhythm, HR-83, no STEMI, LBBB at baseline, [place] within normal limits, External Record Review External record reviewed: Outpatient record and Prior outpatient labs Discharge Plan Discharge Clinical Impression: Hyperglycemia due to diabetes mellitus, Pneumonia Patient Disposition: Still a Patient Instructions: Diabetic Hyperglycemia (ED) Additional Instructions: 1. Resume all home medications as prescribed. Continue to use the insulin that has been prescribed by your nurse practitioner until you have completed the course of steroids. 2. Please follow-up with your primary care provider in the next 1-2 days. Return to the ER for any worsening symptoms. Prescriptions: No Action bupropion HCl 300 mg tablet extended release 24 hr 1 tab PO DAILY Qty: 30 0RF bupropion HCl 150 mg tablet extended release 24 hr 1 tab PO DAILY Qty: 30 0RF aripiprazole [Abilify] 2 mg tablet 2 mg PO DAILY Qty: 30 0RF erythromycin 5 mg/gram (0.5 %) ointment 1 appl ophthalmic (eye) QID valsartan 160 mg tablet 160 mg PO DAILY metformin 1,000 mg Tablet Extended Release 24 Hr 1,000 mg PO BID Januvia 50 mg Tablet 50 mg PO DAILY prednisone 20 mg Tablet 40 mg PO DAILY Qty: 15 0RF Rx Instructions: 40mg daily for 5 days then 20mg daily for 5 days hydralazine 25 mg Tablet 25 mg PO TID Qty: 90 0RF Protocol: Hold for SBP< HOLD for SBP < : 90 levofloxacin 500 mg tablet 500 mg PO DAILY Qty: 7 0RF amlodipine 10 mg Tablet 10 mg PO DAILY Qty: 30 0RF Protocol: Hold for SBP< HOLD for SBP < : 90 benzonatate 100 mg capsule 100 mg PO TID PRN (Reason: cough) Qty: 20 0RF olopatadine [Pataday Twice Daily Relief] 0.1 % drops 1 drp ophthalmic (eye) BID Qty: 5 0RF Rx Instructions: separate doses by at least 6-8 hours Referrals: Manpreet Tabares MD [Primary Care Provider] -
[2022-11-25 13:40] VITALS: BP 120/62; PULSE 79; RESP 18; O2SAT 96
--- NOTE | 2022-11-25 13:41 | PC.NURSE ---
Alert and oriented. no sob noted, pleasant and cooperative. States only pain is from coughing.
[2022-11-25] MEDS: 0.9 % Sodium Chloride 1,000 ML 999 ML IV (14:09)
[2022-11-25 14:33] VITALS: BP 120/62; PULSE 88; RESP 18
[2022-11-25 14:36] LABS: Glucose, Whole Blood 312 mg/dL (60-115)
--- NOTE | 2022-11-25 15:04 | PC.NURSE ---
Alert and oriented. Fluids running per order. No complaints of any pain or discomfort.
[2022-11-25 16:59] LABS: Anion Gap 11 (12-20); Blood Urea Nitrogen 29 mg/dL (9-16); Calcium 8.9 mg/dL (8.4-10.2); Carbon Dioxide 29 mmol/L (22-29); Chloride 106 mmol/L (96-108); Creatinine Clr Calc Pharmacy 89.7; Estimated Glomerular Filt Rate > 60; Glucose Random 353 mg/dL (60-115); Sodium 141 mmol/L (135-145)
[2022-11-25 17:01] VITALS: BP 112/61; PULSE 89; RESP 18; O2SAT 95
[2022-11-25] MEDS: Insulin Regular, Human 100 UNIT/ML 3 ML VIAL IVPUSH (17:08)
--- NOTE | 2022-11-25 17:10 | PC.NURSE ---
IV fluids completed, repeat labs obtained, bs still elevated. insulin given per order.
[2022-11-25 17:42] LABS: Glucose, Whole Blood 285 mg/dL (60-115)
[2022-11-25 19:36] VITALS: BP 117/64; PULSE 82; RESP 19; TEMP 36.5; O2SAT 95
--- NOTE | 2022-11-25 19:49 | PC.NURSE ---
assumed care of pt no apparent distress no respiratory distress able to speak in full sentences aox4 IV cath tip intact upon removal all of pt's questions answered amb safely and independently
== END 2022-11-25 19:48 | disposition home or self-care (01) ==
PROVIDERS: Student in an Organized Health Care Education/Training Program; Emergency Provider Emergency Medicine; PCP Family Medicine
DX: J18.9 Pneumonia, unspecified organism (principal); E11.65 Type 2 diabetes mellitus with hyperglycemia; I44.7 Left bundle-branch block, unspecified; Z79.899 Other long term (current) drug therapy
CPT/HCPCS: 36415; 80048; 80053; 81001; 81003; 82009; 82947; 85025; 93005; 96361; 96374; 99284; 99285

== ENCOUNTER 2023-03-07 11:47 | Inpatient (IN) | payer BC, SELFPAY ==
--- NOTE | ~2023-03-07 | CT_ITS ---
EXAMINATION: CT HEAD WITHOUT CONTRAST CLINICAL INFORMATION: Blurred vision. COMPARISON: 02/24/2017. TECHNIQUE: Contiguous axial imaging was performed from the skull base to vertex without intravenous administration of contrast. This CT examination was performed using dose optimization techniques as appropriate, variously including the following: *Automated exposure control *Adjustment of mA and/or kV according to patient size (this includes techniques or standardized protocols for targeted exams where dose is matched to indication/reason for exam; i.e. extremities or head) *Use of iterative reconstruction technique DLP: 718 mGy-cm FINDINGS: The lateral, third and fourth ventricles are normally outlined. The cortical sulci and basal cisterns are normally outlined as well. There is no acute territorial defect, hemorrhage or midline shift. The extra-axial spaces are unremarkable. Calvarium: Intact. Maxillofacial sinuses and mastoids: There is right maxillary sinus mucosal thickening. The remaining visualized maxillofacial sinuses and mastoids are clear. CT/CT head/brain wo IV con IMPRESSION: No acute intracranial pathology.
[2023-03-07 11:58] VITALS: BP 142/98; PULSE 109; RESP 18; TEMP 37.1; O2SAT 98; BMI 28.1
[2023-03-07] MEDS: Insulin Lispro 100 UNIT/ML 3 ML VIAL SUBCUT ×3 (12:22→22:41)
[2023-03-07 12:23] LABS: Glucose, Whole Blood 296 mg/dL (60-115)
[2023-03-07 12:30] LABS: MANUAL DIFF FLAG NO
[2023-03-07 12:32] LABS: Appearance Urine Clear; Color Urine Yellow; Glucose Urine UA >=1000 mg/dL (Negative); Leukocyte Esterase Urine Negative (Negative); Nitrite Urine Negative (Negative); PH 5.5 (5.0-9.0); Specific Gravity - Urine 1.015 (1.005-1.025); UMIC TRIGGER UACC YES; Urine Blood Negative (Negative); Urine Ketones Negative (Negative); Urine Protein Negative (Neg-Trace)
[2023-03-07 12:34] VITALS: BP 146/88; PULSE 97; RESP 16; TEMP 36.6; O2SAT 99
[2023-03-07 12:35] LABS: Basophils Absolute Auto 0.1 X10*3/uL (0.0-0.2); Basophils Percent Auto 1.1 % (0-2); Eosinophils Absolute Auto 0.3 X10*3/uL (0.0-0.4); Eosinophils Percent Auto 5.6 % (0-4); Hematocrit 46.2 % (42.0-52.0); Imm Gran Abs Auto 0.01 X10*3/uL (0.00-0.03); Imm Gran Pct Auto 0.2 % (0.0-0.4); Lymphocytes Absolute Auto 1.5 X10*3/uL (1.2-4.9); Lymphocytes Percent Auto 26.6 % (20-40); Mean Corpuscular HGB Conc 32.5 g/dl (31.0-36.0); Mean Corpuscular Hemoglobin 28.3 pg (27.0-33.0); Mean Corpuscular Volume 87.2 fL (80.0-98.0); Mean Platelet Volume 9.9 fL (9.4-12.4); Monocytes Absolute Auto 0.5 X10*3/uL (0.1-1.2); Monocytes Percent Auto 8.8 % (2-11); Neutrophils Absolute Auto 3.3 x10*3/uL (2.0-8.3); Neutrophils Percent Auto 57.7 % (45-73); Platelet Count 214 X10*3/uL (160-400); Red Cell Distribution Width 13.5 % (11.0-16.0); White Blood Count 5.7 X10*3/uL (4.8-10.8)
[2023-03-07 12:43] LABS: Amphetamine Screen Urine Not Detected (Not Detect); Barbiturates, Urine Not Detected (Not Detect); Benzodiazepines Screen Urine Not Detected (Not Detect); Cannabinoid Screen Urine Not Detected (Not Detect); Cocaine Screen Urine Not Detected (Not Detect); Fentanyl, urine Not Detected (Not Detect); Opiate Screen Urine Not Detected (Not Detect); Phencyclidine Screen Urine Not Detected (Not Detect)
[2023-03-07 12:46] LABS: Bacteria Urine None Seen (None Seen); Hyaline Casts Urine 0-2 /LPF (0-2); RBC Urine 0-2 /HPF (0-2); Squamous Epithelial Cell Urine 0-2 /HPF (0-2); WBC Urine 0-5 /HPF (0-5)
[2023-03-07 12:55] LABS: Acetaminophen LAB < 17 mcg/mL (<30); Salicylate < 5.0 mg/dL (15-30)
[2023-03-07 12:56] LABS: Alanine Aminotransferase 14 U/L (0-40); Albumin Level 4.1 g/dL (3.5-5.0); Alkaline Phosphatase 82 U/L (39-117); Anion Gap 13 (12-20); Aspartate Amino Transferase 19 U/L (5-37); Bilirubin Total 0.6 mg/dL (0.0-1.0); Blood Urea Nitrogen 19 mg/dL (9-16); Calcium 9.9 mg/dL (8.4-10.2); Carbon Dioxide 27 mmol/L (22-29); Chloride 106 mmol/L (96-108); Creatinine Clr Calc Pharmacy 80.1; Estimated Glomerular Filt Rate > 60; Ethanol < 10 mg/dL; Glucose Random 304 mg/dL (60-115); Potassium 4.4 mmol/L (3.3-5.1); Sodium 142 mmol/L (135-145); Total Protein 7.1 g/dL (6.5-8.0)
--- NOTE | 2023-03-07 13:18 | ED.PSYCH ---
HPI - Psych General Chief Complaint: Psychiatric Symptoms Stated Complaint: SI HX OF DEPRESSION Source: patient Mode of arrival: ambulatory Limitations: no limitations History of Present Illness HPI Narrative: 57-year-old male history of interstitial lung disease, dizziness, left bundle-branch block, depression, suicidal ideation, diabetes presenting to the emergency department complaints of suicidal ideation without particular plan. Patient reports increasing life stressors that are making him feel suicidal he got caught in a bank spam. Patient denies hallucinations at this time. He denies drugs, alcohol tobacco. No medical complaints at this time. Related Data Home Medications Medication Instructions Recorded Confirmed metformin 1,000 mg tablet,extended 1,000 mg PO BID 11/15/22 03/07/23 release 24hr sitagliptin phosphate 50 mg tablet 50 mg PO DAILY 11/15/22 03/07/23 (Januvia) valsartan 160 mg tablet 160 mg PO DAILY 11/15/22 03/07/23 dulaglutide 1.5 mg/0.5 mL 1.5 mg subcut QWEEK 03/07/23 03/07/23 subcutaneous pen injector (Trulicity) Previous Rx's Medication Instructions Recorded aripiprazole 2 mg tablet (Abilify) 2 mg PO DAILY #30 tabs 03/14/22 bupropion HCl 150 mg 24 hr tablet, 1 tab PO DAILY #30 tabs 03/14/22 extended release bupropion HCl 300 mg 24 hr tablet, 1 tab PO DAILY #30 tabs 03/14/22 extended release amlodipine 10 mg tablet 10 mg PO DAILY #30 tabs 11/22/22 hydralazine 25 mg tablet 25 mg PO TID #90 tabs 11/22/22 Allergies Allergy/AdvReac Type Severity Reaction Status Date / Time codeine [CODEINE] Allergy Unknown delayed Verified 11/25/22 10:40 responses 02/24/17 Review of Systems Review of Systems: Constitutional : No Fever, No Chills ENT/Mouth : No Ear Pain, No Nasal Congestion, No sore throat Eyes: No Eye Pain, No Swelling, No Redness Cardiovascular : No Chest Pain, No SOB Respiratory : No Cough, No Sputum, No Dyspnea Gastrointestinal : No Nausea, No Vomiting, No Diarrhea, No Hematochezia, No Melena Genitourinary : No Dysuria, No Urinary Frequency, No Hematuria Musculoskeletal : No Myalgias Skin : No Skin Lesions, No rash Neuro : No Weakness, No Numbness, No Paresthesias, No Dizziness, No Headache Psych : positive Anxiety, positive Depression, positive SI, No HI Heme/Lymph: No Lymphadenopathy Endocrine : No Polyuria, No Polydipsia All other systems reviewed and are negative Yes all other systems are reviewed and are negative [facility] Past Medical History Attestation statement: The following information was validated with the patient. Source: old records reviewed and nursing notes reviewed Medical History Depression Diabetic foot ulcer HTN (hypertension) ILD (interstitial lung disease) LBBB (left bundle branch block) Osteomyelitis Preop cardiovascular exam Suicidal ideation Type 2 diabetes mellitus with foot ulcer Surgical History H/O: vasectomy Family History Family History Father Neck malignant neoplasm Social History Social History Household Members: Spouse and Family Housing: House Do you presently have visiting nurse or other home services: No Alcohol intake: current Alcohol intake frequency: a few times a month Patient Tobacco Use Status: Never used Tobacco Second Hand Smoke Exposure: No Substance Use Type: Marijuana Advance Directives: Yes Advance Directives Information Provided: Yes Advance Directives on File: No Advance Directives Date on File: 04/11/22 service: No Current occupational status: employed Sexual orientation: Straight/Heterosexual Physical Exam Vital Signs: Vital Signs: Last Vital Signs Temp 97.9 F 03/07/23 12:34 Pulse 97 03/07/23 12:34 Resp 16 03/07/23 12:34 BP 146/88 H 03/07/23 12:34 Pulse Ox 99 03/07/23 12:34 O2 Del Method Room Air 03/07/23 12:34 BMI result Body Mass Index 28.1 vss Appearance: Alert.? Oriented X3.? No acute distress.? Head: Normocephalic, atraumatic, no step-offs or deformities Eyes: Pupils equal, round and reactive to light.? CVS: Normal heart rate and rhythm.? Pulses normal.? Respiratory: No respiratory distress.? Breath sounds normal.? Abdomen: Soft and nontender.? Skin: Skin warm and dry.? Normal skin color.? Normal skin turgor.? Extremities: No lower extremity edema.? No calf ttp. 5/5 strength to bilateral upper and lower extremities Back: No midline tenderness, no C-spine tenderness, full range of motion, no CVA tenderness bilaterally Neuro: Oriented X 3.? No motor deficit.? No sensory deficit. CN 2-12 intact Course Reevaluation(s) Reevaluation #1: CBC appears to be around patient's baseline. Chemistry no acute findings requiring intervention, patient's glucose was noted to be elevated when he arrived he was given insulin patient has known history of diabetes, no elevated anion gap her potassium, low suspicion for DKA. UA without infection. toxicology negative for salicylates acetaminophen and ethanol. Negative urine toxicology At this time patient to be placed into observation to allow more time to be evaluated by behavioral health team. At time observation was started patient common cooperative no acute distress will continue to monitor. Time: 13:19 Medications Administered Discontinued Medications Generic Name Dose Route Start Last Admin Trade Name Steveq PRN Reason Stop Dose Admin Insulin Human Lispro 5 unit 03/07/23 12:01 03/07/23 12:22 Insulin Lispro 100 Unit/Ml 3 Ml Vial SUBCUT 03/07/23 12:02 5 unit ONCE ONE Administration Medical Decision Making Medical Decision Making [facility] Narrative: 1300 57-year-old male presents with suicidal ideation without particular plan Physical exam benign peer This is likely depression with overlying anxiety and subsequent suicidal ideation. Unlikely metabolic derangements. Plan at this time medical clearance evaluation by behavioral health Differential Diagnosis Differential Diagnoses: The differential diagnosis associated with the presentation includes This is likely depression with overlying anxiety and subsequent suicidal ideation. Unlikely metabolic derangements. Admission/Observation Consideration of admission/observation: Escalation of care including admission/observation considered possible psych Consult Healthcare Provider Management of the patient was discussed with: Behavioral Health Provider Lab Data [facility] Lab Attestation statement: I reviewed the patient's lab results. 03/07/23 12:23 03/07/23 12:23 Labs: Lab Results 03/07/23 03/07/23 03/07/23 Range/Units 12:14 12:14 12:17 WBC (4.8-10.8) X10*3/uL RBC (4.60-5.80) X10*6/uL Hgb (14.0-18.0) g/dl Hct (42.0-52.0) % MCV (80.0-98.0) fL MCH (27.0-33.0) pg MCHC (31.0-36.0) g/dl RDW (11.0-16.0) % Plt Count (160-400) X10*3/uL MPV (9.4-12.4) fL Immature Gran % (Auto) (0.0-0.4) % Neut % (Auto) (45-73) % Lymph % (Auto) (20-40) % Kimble % (Auto) (2-11) % Eos % (Auto) (0-4) % Baso % (Auto) (0-2) % Lymph # (Auto) (1.2-4.9) X10*3/uL Kimble # (Auto) (0.1-1.2) X10*3/uL Eos # (Auto) (0.0-0.4) X10*3/uL Baso # (Auto) (0.0-0.2) X10*3/uL Abs Immat Gran (auto) (0.00-0.03) X10*3/uL Absolute Neuts (auto) (2.0-8.3) x10*3/uL Absolute Nucleated RBC (0.0-0.012) X10*3/uL Nucleated RBC % (auto) (0.0-0.2) /100WBC Sodium (135-145) mmol/L Potassium (3.3-5.1) mmol/L Chloride (96-108) mmol/L Carbon Dioxide (22-29) mmol/L Anion Gap (12-20) BUN (9-16) mg/dL Creatinine (0.5-1.4) mg/dL Estim Creat Clear Calc Estimated GFR POC Glucose 296 H (60-115) mg/dL Random Glucose (60-115) mg/dL Calcium (8.4-10.2) mg/dL Magnesium (1.6-2.6) mg/dL Total Bilirubin (0.0-1.0) mg/dL AST (5-37) U/L ALT (0-40) U/L Alkaline Phosphatase (39-117) U/L Total Protein (6.5-8.0) g/dL Albumin (3.5-5.0) g/dL Urine Color Yellow Urine Appearance Clear Urine pH 5.5 (5.0-9.0) Ur Specific [place] 1.015 (1.005-1.025) Urine Protein Negative (Neg-Trace) mg/dL Urine Glucose (UA) >=1000 H (Negative) mg/dL Urine Ketones Negative (Negative) mg/dL Urine Blood Negative (Negative) Urine Nitrite Negative (Negative) Ur Leukocyte Esterase Negative (Negative) Urine RBC 0-2 (0-2) /HPF Urine WBC 0-5 (0-5) /HPF Ur Squamous Epith Cells 0-2 (0-2) /HPF Urine Bacteria None Seen (None Seen) Hyaline Casts 0-2 (0-2) /LPF Salicylates (15-30) mg/dL Urine Opiates Screen Not Detected (Not Detect) Urine Fentanyl Screen Not Detected (Not Detect) Acetaminophen (<30) mcg/mL Ur Barbiturates Screen Not Detected (Not Detect) Ur Phencyclidine Scrn Not Detected (Not Detect) Ur Amphetamines Screen Not Detected (Not Detect) U Benzodiazepines Scrn Not Detected (Not Detect) Urine Cocaine Screen Not Detected (Not Detect) U Marijuana (THC) Screen Not Detected (Not Detect) Ethyl Alcohol mg/dL 03/07/23 03/07/23 03/07/23 Range/Units 12:23 12:23 12:23 WBC 5.7 (4.8-10.8) X10*3/uL RBC 5.30 (4.60-5.80) X10*6/uL Hgb 15.0 (14.0-18.0) g/dl Hct 46.2 (42.0-52.0) % MCV 87.2 (80.0-98.0) fL MCH 28.3 (27.0-33.0) pg MCHC 32.5 (31.0-36.0) g/dl RDW 13.5 (11.0-16.0) % Plt Count 214 D (160-400) X10*3/uL MPV 9.9 (9.4-12.4) fL Immature Gran % (Auto) 0.2 (0.0-0.4) % Neut % (Auto) 57.7 (45-73) % Lymph % (Auto) 26.6 (20-40) % Kimble % (Auto) 8.8 (2-11) % Eos % (Auto) 5.6 H (0-4) % Baso % (Auto) 1.1 (0-2) % Lymph # (Auto) 1.5 (1.2-4.9) X10*3/uL Kimble # (Auto) 0.5 (0.1-1.2) X10*3/uL Eos # (Auto) 0.3 (0.0-0.4) X10*3/uL Baso # (Auto) 0.1 (0.0-0.2) X10*3/uL Abs Immat Gran (auto) 0.01 (0.00-0.03) X10*3/uL Absolute Neuts (auto) 3.3 (2.0-8.3) x10*3/uL Absolute Nucleated RBC 0.000 (0.0-0.012) X10*3/uL Nucleated RBC % (auto) 0.0 (0.0-0.2) /100WBC Sodium 142 (135-145) mmol/L Potassium 4.4 (3.3-5.1) mmol/L Chloride 106 (96-108) mmol/L Carbon Dioxide 27 (22-29) mmol/L Anion Gap 13 (12-20) BUN 19 H (9-16) mg/dL Creatinine 1.06 (0.5-1.4) mg/dL Estim Creat Clear Calc 80.1 Estimated GFR > 60 POC Glucose (60-115) mg/dL Random Glucose 304 H (60-115) mg/dL Calcium 9.9 D (8.4-10.2) mg/dL Magnesium 2.0 (1.6-2.6) mg/dL Total Bilirubin 0.6 (0.0-1.0) mg/dL AST 19 (5-37) U/L ALT 14 (0-40) U/L Alkaline Phosphatase 82 (39-117) U/L Total Protein 7.1 (6.5-8.0) g/dL Albumin 4.1 (3.5-5.0) g/dL Urine Color Urine Appearance Urine pH (5.0-9.0) Ur Specific [place] (1.005-1.025) Urine Protein (Neg-Trace) mg/dL Urine Glucose (UA) (Negative) mg/dL Urine Ketones (Negative) mg/dL Urine Blood (Negative) Urine Nitrite (Negative) Ur Leukocyte Esterase (Negative) Urine RBC (0-2) /HPF Urine WBC (0-5) /HPF Ur Squamous Epith Cells (0-2) /HPF Urine Bacteria (None Seen) Hyaline Casts (0-2) /LPF Salicylates < 5.0 L (15-30) mg/dL Urine Opiates Screen (Not Detect) Urine Fentanyl Screen (Not Detect) Acetaminophen < 17 (<30) mcg/mL Ur Barbiturates Screen (Not Detect) Ur Phencyclidine Scrn (Not Detect) Ur Amphetamines Screen (Not Detect) U Benzodiazepines Scrn (Not Detect) Urine Cocaine Screen (Not Detect) U Marijuana (THC) Screen (Not Detect) Ethyl Alcohol < 10 mg/dL Core Measures AMI core measures followed: Yes Measure exclusions: not indicated Critical Care Time Critical Care Time Critical Care Time: No Discharge Plan Discharge Clinical Impression: Depression, Suicidal ideation Patient Disposition: Still a Patient Prescriptions: No Action bupropion HCl 300 mg tablet extended release 24 hr 1 tab PO DAILY Qty: 30 0RF Rx Instructions: Take with 150mg to equal 450mg bupropion HCl 150 mg tablet extended release 24 hr 1 tab PO DAILY Qty: 30 0RF aripiprazole [Abilify] 2 mg tablet 2 mg PO DAILY Qty: 30 0RF valsartan 160 mg tablet 160 mg PO DAILY metformin 1,000 mg Tablet Extended Release 24 Hr 1,000 mg PO BID Januvia 50 mg Tablet 50 mg PO DAILY hydralazine 25 mg Tablet 25 mg PO TID Qty: 90 0RF Protocol: Hold for SBP< HOLD for SBP < : 90 amlodipine 10 mg Tablet 10 mg PO DAILY Qty: 30 0RF Protocol: Hold for SBP< HOLD for SBP < : 90 Trulicity 1.5 mg/0.5 mL pen injector 1.5 mg subcut QWEEK Rx Instructions: Per PT due today 03/07/23 Interventions: [place]-Suicide Risk Severity Scale Last Done: 03/07/23 12:27
--- NOTE | 2023-03-07 14:39 | ECG_ITS ---
Test Reason : ?P/QT Blood Pressure : / mmHG Vent. Rate : 088 BPM Atrial Rate : 088 BPM P-R Int : 156 ms QRS Dur : 142 ms QT Int : 408 ms P-R-T Axes : 042 031 109 degrees QTc Int : 493 ms Normal sinus rhythm Left bundle branch block Abnormal ECG When compared with ECG of 25-NOV-2022 12:03, No significant change was found Referred By: Rodrigue Braxton Electronically Signed By:JENARO DOWLING
[2023-03-07 15:05] LABS: COVID-19 Test Negative (Negative); IDNOW Serial# 9DB6401D
[2023-03-07] MEDS: hydrALAZINE HCl 25 MG TABLET PO ×2 (15:18→22:40)
--- NOTE | 2023-03-07 16:39 | PC.NURSE ---
Juan Ramon was BIBA after calling his therapist and making vague statements about SI. When he arrived he verbalized he was still having these feelings but denied a plan. Juan Ramon reports there was some financial issue that was happening regarding a phone scam and his bank accounts were locked and this was incredibly stressful for him. Lawson has a Letitia 2 sensor for continuos BS monitoring on back of R arm. He reports it is changed every 2 weeks and he placed it on Saturday 03/03. Juan Ramon's called and he asked this machine sign writer to ask her to bring his Trulicity in as he takes it once a week and we do not carry it, she reported she would bring it. Juan Ramon was given 5U Lispro before lunch for BS of 296. Ate 100%. Juan Ramon has been calm and cooperative while here, no behavioral concerns and he reports he will remain safe while in the hospital and can come to staff if that feeling changes.
--- NOTE | 2023-03-07 16:44 | MHC.CARE ---
patient is a voluntary inpatient bed search
[2023-03-07] MEDS: PT OWN (Dulaglutide [Trulicity] 1.5 mg/0.5 mL pen injector) 1.5 EACH SUBCUT (18:06)
[2023-03-07 21:30] VITALS: BP 146/73; PULSE 82; RESP 16; TEMP 36.1; O2SAT 98
[2023-03-07 22:03] LABS: Glucose, Whole Blood 320 mg/dL (60-115)
[2023-03-07] MEDS: metFORMIN HCl ER 500 MG TAB.ER.24H 1000 MG PO (22:40)
[2023-03-07 22:48] LABS: Glucose, Whole Blood 297 mg/dL (60-115)
[2023-03-07 23:25] VITALS: BMI 27.8
--- NOTE | 2023-03-08 00:31 | PC.ADMIT ---
Juan Ramon Xie is a 57 year old male admitted to the unit from , [facility] [place] for treatment of SI and unspecified depressive disorder. Pt have history of multiple admission at [facility] and have not being admitted since last summer. He called for ambulance and reports having SI with plans to either hang self or cut wrist. The precipitant for current SI is described as having been caught up in a scam of sorts, having applied for a loan which then impacted his personal and home accounts. There has been an unsurprising strain in his relationship with his due to this. He is alert and oriented x4, calm and cooperative during the admission process. Affect is anxious and mood is depressed.He endorses SI with no plan but denied HI/AVH. He has a daylin monitor on the back of his right hand which was removed by RN per Pt request. He have medical conditions of diabetes and HTN and currently receiving treatment. Treatment plan and safety tools was initiated.
[2023-03-08 08:00] VITALS: BP 138/72; PULSE 89; RESP 18; TEMP 36.6; O2SAT 96
[2023-03-08] MEDS: ARIPiprazole 2 MG TABLET PO (08:18)
[2023-03-08] MEDS: metFORMIN HCl ER 500 MG TAB.ER.24H 1000 MG PO ×2 (08:18→21:03)
[2023-03-08] MEDS: hydrALAZINE HCl 25 MG TABLET PO ×3 (08:18→21:04)
[2023-03-08] MEDS: buPROPion HCl XL 150 MG TAB.ER.24H PO (08:18)
[2023-03-08] MEDS: amLODIPine Besylate 10 MG TABLET PO (08:18)
[2023-03-08] MEDS: buPROPion HCl XL 300 MG TAB.ER.24H PO (08:18)
[2023-03-08] MEDS: SITagliptin Phosphate 50 MG TABLET PO (08:18)
[2023-03-08] MEDS: Valsartan 160 MG TABLET PO (08:19)
[2023-03-08 08:44] LABS: Glucose, Whole Blood 144 mg/dL (60-115)
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
[2023-03-08] MEDS: hydrOXYzine HCL 25 MG TABLET PO (13:46)
[2023-03-08 17:32] LABS: Glucose, Whole Blood 149 mg/dL (60-115)
[2023-03-08 17:47] LABS: Glucose, Whole Blood 192 mg/dL (60-115)
[2023-03-08] MEDS: Insulin Lispro 100 UNIT/ML 3 ML VIAL SUBCUT ×2 (17:48→21:01)
[2023-03-08 20:20] VITALS: BP 115/63; PULSE 92; RESP 16; TEMP 36.5; O2SAT 97
[2023-03-08 21:00] LABS: Glucose, Whole Blood 258 mg/dL (60-115)
[2023-03-08] MEDS: traZODone HCL 50 MG TABLET PO (21:08)
[2023-03-09 08:00] VITALS: BP 130/68; PULSE 92; RESP 18; TEMP 36.6; O2SAT 97
[2023-03-09 09:05] LABS: Glucose, Whole Blood 220 mg/dL (60-115)
[2023-03-09] MEDS: ARIPiprazole 2 MG TABLET PO (09:22)
[2023-03-09] MEDS: SITagliptin Phosphate 50 MG TABLET PO (09:23)
[2023-03-09] MEDS: Valsartan 160 MG TABLET PO (09:23)
[2023-03-09] MEDS: buPROPion HCl XL 150 MG TAB.ER.24H PO ×2 (09:23→09:24)
[2023-03-09] MEDS: hydrALAZINE HCl 25 MG TABLET PO ×3 (09:24→21:27)
[2023-03-09] MEDS: buPROPion HCl XL 300 MG TAB.ER.24H PO (09:24)
[2023-03-09] MEDS: amLODIPine Besylate 10 MG TABLET PO (09:25)
[2023-03-09] MEDS: metFORMIN HCl ER 500 MG TAB.ER.24H 1000 MG PO ×2 (09:25→21:26)
[2023-03-09] MEDS: Insulin Lispro 100 UNIT/ML 3 ML VIAL SUBCUT ×2 (09:26→21:26)
[2023-03-09] MEDS: Acetaminophen 325 MG TABLET 650 MG PO (09:30)
[2023-03-09 12:40] LABS: Glucose, Whole Blood 100 mg/dL (60-115)
--- NOTE | 2023-03-09 13:57 | P.PNPSI_ITS ---
Subjective Subjective Date of Service: 03/09/23 Reason For Visit: Depression Interim History: Patient seen. Continued depression. Had some difficulty falling asleep. Took PRN's and it helped. He is attending groups. Denies active SI. Hasn't had contact with family. Denies AVH. Says he would consider ECT depending on what his job allows in terms of short term disability/medical leave. Review of Systems Review of Systems Constitutional : No Fever, No Chills ENT/Mouth : No Ear Pain, No Nasal Congestion, No sore throat Eyes: No Eye Pain, No Swelling, No Redness Cardiovascular : No Chest Pain, No SOB Respiratory : No Cough, No Sputum, No Dyspnea Gastrointestinal : No Nausea, No Vomiting, No Diarrhea, No Hematochezia, No Melena Genitourinary : No Dysuria, No Urinary Frequency, No Hematuria Musculoskeletal : No Myalgias Skin : No Skin Lesions, No rash Neuro : No Weakness, No Numbness, No Paresthesias, No Dizziness, No Headache Psych : positive Anxiety, positive Depression, positive SI, No HI Heme/Lymph: No Lymphadenopathy Endocrine : No Polyuria, No Polydipsia All other systems reviewed and are negative Yes all other systems are reviewed and are negative Mental Status Exam Mental Status Exam Narrative: Shaved head. Appears stated age. Patient Appearance: Appropriate Patient Orientation: Person, Place, Time and Situation Level of Consciousness: Awake and Alert Patient Behavior: Appropriate, Dependent, Cooperative, Timid and Good Eye Contact Mood Description: Calm, Constricted, Depressed and Sad Affect Description: Calm, Constricted, Depressed and Sad Patient Cognition Impaired: No Ability to Follow Directions: Good Speech Pattern: Clear and Spontaneous Speech Memory Description: Intact Diagnostics Vital Signs (24Hr): Vital Signs - 24 hr 03/08/23 20:20 03/09/23 08:00 Temperature 97.7 F 97.9 F Pulse Rate 92 92 Respiratory Rate 16 18 Blood Pressure 115/63 130/68 Pulse Oximetry 97 97 Oxygen Delivery Method Room Air Room Air BMI result Body Mass Index 27.8 Labs 03/07/23 12:23 03/07/23 12:23 Labs: Laboratory Results - last 48 hr 03/07/23 03/07/23 03/07/23 14:44 17:56 21:46 POC Glucose 297 H 320 H COVID-19 (FERN) Negative COVID-19 Clin Com See Note 03/08/23 03/08/23 03/08/23 08:15 12:12 17:35 POC Glucose 144 H 149 H 192 H COVID-19 (FERN) COVID-19 Clin Com 03/08/23 03/09/23 03/09/23 20:09 08:59 12:35 POC Glucose 258 H 220 H 100 COVID-19 (FERN) COVID-19 Clin Com Medications Medications Current Medications Acetaminophen (Acetaminophen 325 Mg Tablet) 650 mg PO Q6H PRN PRN Reason: Headache/Pain Mild Scale (1-3) Last Admin: 03/09/23 09:30 Dose: 650 mg Al Hydroxide/Mg Hydroxide (Magnesium Hydrox/Alum Hydrox 30 Ml Oral.Susp) 30 ml PO Q6H PRN PRN Reason: Heartburn/Nausea Amlodipine Besylate (Amlodipine Besylate 10 Mg Tablet) 10 mg PO DAILY [facility]; Protocol Last Admin: 03/09/23 09:25 Dose: 10 mg Aripiprazole (Aripiprazole 2 Mg Tablet) 2 mg PO DAILY [facility] Last Admin: 03/09/23 09:22 Dose: 2 mg Bupropion HCl (Bupropion Hcl Xl 150 Mg Tab.Er.24h) 150 mg PO DAILY MICHELLE Last Admin: 03/09/23 09:24 Dose: 150 mg Bupropion HCl (Bupropion Hcl Xl 300 Mg Tab.Er.24h) 300 mg PO DAILY MICHELLE Last Admin: 03/09/23 09:24 Dose: 300 mg Hydralazine HCl (Hydralazine Hcl 25 Mg Tablet) 25 mg PO TID [facility]; Protocol Last Admin: 03/09/23 09:24 Dose: 25 mg Hydroxyzine HCl (Hydroxyzine Hcl 25 Mg Tablet) 25 mg PO Q6H PRN PRN Reason: Anxiety Last Admin: 03/08/23 13:46 Dose: 25 mg Insulin Human Lispro (Insulin Lispro 100 Unit/Ml 3 Ml Vial) 0 unit SUBCUT QIDACHS MICHELLE; Protocol Last Admin: 03/09/23 13:06 Dose: Not Given Magnesium Hydroxide (Milk Of Magnesia 30 Ml Oral.Susp) 30 ml PO DAILY PRN PRN Reason: Constipation Metformin HCl (Metformin Hcl Er 500 Mg Tab.Er.24h) 1,000 mg PO BID [facility] Last Admin: 03/09/23 09:25 Dose: 1,000 mg Nicotine (Nicotine 21 Mg Patch.Td24) 21 mg TRANSDERMA DAILY PRN PRN Reason: smoking cessation Nicotine Polacrilex (Nicotine Polacrilex 2 Mg Gum) 4 mg BUCCAL Q2H PRN PRN Reason: Nicotine Cravings Pt Own (Dulaglutide [Trulicity] 1.5 Mg/0 .5 Ml Pen Injector) 1.5 mg SUBCUT Fr [facility] Last Admin: 03/07/23 18:06 Dose: 1.5 mg Sitagliptin Phosphate (Sitagliptin Phosphate 50 Mg Tablet) 50 mg PO DAILY [facility] Last Admin: 03/09/23 09:23 Dose: 50 mg Trazodone HCl (Trazodone Hcl 50 Mg Tablet) 50 mg PO BEDTIME MRX1 PRN PRN Reason: Insomnia Last Admin: 03/08/23 21:08 Dose: 50 mg Valsartan (Valsartan 160 Mg Tablet) 160 mg PO DAILY [facility]; Protocol Last Admin: 03/09/23 09:23 Dose: 160 mg Allergies Allergies Allergy/AdvReac Type Severity Reaction Status Date / Time codeine [CODEINE] Allergy Unknown delayed Verified 11/25/22 10:40 responses 02/24/17 Assessment & Plan Assessment & Plan (1) Depression: Status: Acute Code(s): F32.A - Depression, unspecified (2) Persistent depressive disorder: Status: Acute Code(s): F34.1 - Dysthymic disorder (3) Recurrent major depression: Status: Acute Code(s): F33.9 - Major depressive disorder, recurrent, unspecified Plan 57 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 Patient with a history of Major Depression, recurrent and several inpatient psychiatric hospitalizations, the last of which was last summer. He was brought to the ED by ambulance. He had been talking to his film developing machine operator, Abigail Odonnell [employer] at [facility] and voiced SI and was making reference to his life insurance policy. This prompted her to call EMS and he was taken to the ED. He reports he had a plan of either hanging himself or cutting his wrist. - Admit to M3 - Collaterals from - Group milieu therapy - Collateral with Abigail atkinson medication adjustments - Consider ECT. Psychoeducation given. - Discharge planning. - No medication changes for now. 03/09: Continue treatment plan. Reason for continued inpatient stay Substantial Risk for: harm to self, inability to function and rapid decompensation Time Spent With Patient Time: Total time managing care of this patient today ____ minutes.
[2023-03-09 14:28] VITALS: BP 136/73; PULSE 100; RESP 18; TEMP 37; O2SAT 97
[2023-03-09 17:48] LABS: Glucose, Whole Blood 131 mg/dL (60-115)
[2023-03-09 18:00] VITALS: BP 120/67; PULSE 94; TEMP 36.2; O2SAT 98
[2023-03-09 21:18] LABS: Glucose, Whole Blood 187 mg/dL (60-115)
[2023-03-09] MEDS: traZODone HCL 50 MG TABLET PO ×2 (21:26→22:58)
[2023-03-09] MEDS: hydrOXYzine HCL 25 MG TABLET PO (23:40)
--- NOTE | 2023-03-10 | ECG_ITS ---
Test Reason : ECT CLEARENCE Blood Pressure : / mmHG Vent. Rate : 091 BPM Atrial Rate : 091 BPM P-R Int : 154 ms QRS Dur : 142 ms QT Int : 414 ms P-R-T Axes : 053 032 109 degrees QTc Int : 509 ms Normal sinus rhythm Left bundle branch block Abnormal ECG When compared with ECG of 07-MAR-2023 15:09, No significant change was found Referred By: Sean Do Electronically Signed By:JENARO DOWLING
[2023-03-10 07:58] LABS: Glucose, Whole Blood 181 mg/dL (60-115)
[2023-03-10 08:14] VITALS: BP 119/65; PULSE 89; RESP 18; TEMP 36.2; O2SAT 97
[2023-03-10] MEDS: Insulin Lispro 100 UNIT/ML 3 ML VIAL SUBCUT ×3 (09:00→22:30)
[2023-03-10] MEDS: Valsartan 160 MG TABLET PO (09:01)
[2023-03-10] MEDS: buPROPion HCl XL 300 MG TAB.ER.24H PO (09:01)
[2023-03-10] MEDS: SITagliptin Phosphate 50 MG TABLET PO (09:01)
[2023-03-10] MEDS: metFORMIN HCl ER 500 MG TAB.ER.24H 1000 MG PO ×2 (09:01→22:26)
[2023-03-10] MEDS: ARIPiprazole 2 MG TABLET PO (09:01)
[2023-03-10] MEDS: amLODIPine Besylate 10 MG TABLET PO (09:01)
[2023-03-10] MEDS: hydrALAZINE HCl 25 MG TABLET PO ×3 (09:02→22:26)
[2023-03-10] MEDS: buPROPion HCl XL 150 MG TAB.ER.24H PO (09:02)
[2023-03-10 13:03] LABS: Glucose, Whole Blood 118 mg/dL (60-115)
--- NOTE | 2023-03-10 15:22 | P.PNPSI_ITS ---
Subjective Subjective Date of Service: 03/10/23 Reason For Visit: Depression Interim History: calm, cooperative. interested in ECT. feels he has been trying medications for the past 15 years and it hasn't gotten him very far, now he's ready to try something different. not able to give much of a meds Hx, says former prescriber niru kaplan can provide the most information. asked to complete MERY for eusebio's office. also reports his current prescriber just sent something to the pharmacy but he can't recall the name; states he will investigate. pt does recall trying rexulti, which gave him jitters, per his report. Mental Status Exam Mental Status Exam Narrative: calm cooperative. appropriately dressed and groomed, no PMA/PMR. speech nml in rate, amount, loudness, tone, latency. thoughts linear and logical. affect constricted, consistent with context, normo-intense, non-labile. mood depressed. no SI/SIBI/HI/AVH expressed. Diagnostics Vital Signs (24Hr): Vital Signs - 24 hr 03/09/23 18:00 03/10/23 08:14 Temperature 97.2 F 97.2 F Pulse Rate 94 89 Respiratory Rate 18 Blood Pressure 120/67 119/65 Pulse Oximetry 98 97 Oxygen Delivery Method Room Air Room Air BMI result Body Mass Index 27.8 Labs 03/07/23 12:23 03/07/23 12:23 Labs: Laboratory Results - last 48 hr 03/08/23 03/08/23 03/08/23 12:12 17:35 20:09 POC Glucose 149 H 192 H 258 H 03/09/23 03/09/23 03/09/23 08:59 12:35 17:42 POC Glucose 220 H 100 131 H 03/09/23 03/10/23 03/10/23 21:14 07:54 12:59 POC Glucose 187 H 181 H 118 H Medications Medications Current Medications Acetaminophen (Acetaminophen 325 Mg Tablet) 650 mg PO Q6H PRN PRN Reason: Headache/Pain Mild Scale (1-3) Last Admin: 03/09/23 09:30 Dose: 650 mg Al Hydroxide/Mg Hydroxide (Magnesium Hydrox/Alum Hydrox 30 Ml Oral.Susp) 30 ml PO Q6H PRN PRN Reason: Heartburn/Nausea Amlodipine Besylate (Amlodipine Besylate 10 Mg Tablet) 10 mg PO DAILY [facility]; Protocol Last Admin: 03/10/23 09:01 Dose: 10 mg Aripiprazole (Aripiprazole 2 Mg Tablet) 2 mg PO DAILY [facility] Last Admin: 03/10/23 09:01 Dose: 2 mg Bupropion HCl (Bupropion Hcl Xl 150 Mg Tab.Er.24h) 150 mg PO DAILY [facility] Last Admin: 03/10/23 09:02 Dose: 150 mg Bupropion HCl (Bupropion Hcl Xl 300 Mg Tab.Er.24h) 300 mg PO DAILY [facility] Last Admin: 03/10/23 09:01 Dose: 300 mg Hydralazine HCl (Hydralazine Hcl 25 Mg Tablet) 25 mg PO TID [facility]; Protocol Last Admin: 03/10/23 09:02 Dose: 25 mg Hydroxyzine HCl (Hydroxyzine Hcl 25 Mg Tablet) 25 mg PO Q6H PRN PRN Reason: Anxiety Last Admin: 03/09/23 23:40 Dose: 25 mg Insulin Human Lispro (Insulin Lispro 100 Unit/Ml 3 Ml Vial) 0 unit SUBCUT QIDACHS [facility]; Protocol Last Admin: 03/10/23 14:34 Dose: Not Given Magnesium Hydroxide (Milk Of Magnesia 30 Ml Oral.Susp) 30 ml PO DAILY PRN PRN Reason: Constipation Metformin HCl (Metformin Hcl Er 500 Mg Tab.Er.24h) 1,000 mg PO BID [facility] Last Admin: 03/10/23 09:01 Dose: 1,000 mg Nicotine (Nicotine 21 Mg Patch.Td24) 21 mg TRANSDERMA DAILY PRN PRN Reason: smoking cessation Nicotine Polacrilex (Nicotine Polacrilex 2 Mg Gum) 4 mg BUCCAL Q2H PRN PRN Reason: Nicotine Cravings Pt Own (Dulaglutide [Trulicity] 1.5 Mg/0 .5 Ml Pen Injector) 1.5 mg SUBCUT Fr [facility] Last Admin: 03/07/23 18:06 Dose: 1.5 mg Sitagliptin Phosphate (Sitagliptin Phosphate 50 Mg Tablet) 50 mg PO DAILY [facility] Last Admin: 03/10/23 09:01 Dose: 50 mg Trazodone HCl (Trazodone Hcl 50 Mg Tablet) 50 mg PO BEDTIME MRX1 PRN PRN Reason: Insomnia Last Admin: 03/09/23 22:58 Dose: 50 mg Valsartan (Valsartan 160 Mg Tablet) 160 mg PO DAILY [facility]; Protocol Last Admin: 03/10/23 09:01 Dose: 160 mg Allergies Allergies Allergy/AdvReac Type Severity Reaction Status Date / Time codeine [CODEINE] Allergy Unknown delayed Verified 11/25/22 10:40 responses 02/24/17 Assessment & Plan Assessment & Plan (1) Depression: Status: Acute Code(s): F32.A - Depression, unspecified (2) Persistent depressive disorder: Status: Acute Code(s): F34.1 - Dysthymic disorder (3) Recurrent major depression: Status: Acute Code(s): F33.9 - Major depressive disorder, recurrent, unspecified Plan 57 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 Patient with a history of Major Depression, recurrent and several inpatient psychiatric hospitalizations, the last of which was last summer. He was brought to the ED by ambulance. He had been talking to his associate trainer, Abigail Odonnell [employer] SCI[employer] at [facility] and voiced SI and was making reference to his life insurance policy. This prompted her to call EMS and he was taken to the ED. He reports he had a plan of either hanging himself or cutting his wrist. 03/08: Collaterals from . Collateral with Abigail Odonnell re medication adj ustments. Consider ECT. Psychoeducation given. No medication changes for now. 03/09: Continue treatment plan. 03/10: get clearance for ECT. repeat EKG due to prolonged QTc. was recently started on cymbalta 20 mg daily, not picked up from pharmacy. will d/w patient starting or not the medication. Reason for continued inpatient stay Substantial Risk for: harm to self, inability to function and rapid decompensation Time Spent With Patient Time: Total time managing care of this patient today __35__ minutes.
[2023-03-10 15:53] VITALS: BP 134/100; PULSE 91
[2023-03-10 17:47] LABS: Glucose, Whole Blood 200 mg/dL (60-115)
--- NOTE | 2023-03-10 18:27 | P.EN_ITS ---
Event Note Date of Service: 03/10/23 Event Note: 57-year-old male with history of left bundle lucio block, type 2 diabetes, history of osteomyelitis, hypertension, nonischemic cardiomyopathy, and heart failure with reduced ejection fraction admitted to Psychiatry with consult placed hospitalist service for ECT evaluation. The patient has never undergone ECT. He has never had any seizures. He is able to ambulate distances as well as ascending flights of stairs without any dyspnea on exertion or chest pain. He did have echocardiogram performed during admission in 05/04 showing low- normal LV systolic function with EF 50-55% with regional wall motion abnormality possibly suggestive of coronary artery disease. He underwent nuclear perfusion study which did not show any perfusion defects but given ongoing chest discomfort, was referred for cardiac catheterization which was performed on 05/28/2022. He was found to have nonischemic cardiomyopathy, chest pain noncardiac in etiology. There was minimal abnormality of the LAD, LCX, and RCA. He denies any recurrent chest pains. Denies any shortness of breath, lightheadedness, palpitations. EKG performed this morning showed NSR, rate 91 with left bundle-branch block, no other ST/T-wave abnormality. QTC was borderline at 509. Recommend repeating EKG tomorrow morning. At this time, no other medical contraindication exists that would preclude patient from undergoing ECT treatment. Time Spent With Patient Time: Total time managing care of this patient today ____ minutes.
[2023-03-10 21:50] VITALS: BP 135/65; PULSE 90; RESP 18; TEMP 36.2; O2SAT 99
[2023-03-10 22:13] LABS: Glucose, Whole Blood 161 mg/dL (60-115)
[2023-03-10] MEDS: traZODone HCL 100 MG TABLET PO (22:26)
[2023-03-11] MEDS: hydrOXYzine HCL 25 MG TABLET PO ×2 (05:17→17:17)
[2023-03-11] MEDS: Acetaminophen 325 MG TABLET 650 MG PO ×2 (05:17→15:30)
[2023-03-11 05:33] LABS: Glucose, Whole Blood 147 mg/dL (60-115)
--- NOTE | 2023-03-11 08:00 | ECG_ITS ---
Test Reason : RECHECK QTC, ECT PREOP Blood Pressure : / mmHG Vent. Rate : 085 BPM Atrial Rate : 085 BPM P-R Int : 158 ms QRS Dur : 138 ms QT Int : 434 ms P-R-T Axes : 041 032 094 degrees QTc Int : 516 ms Normal sinus rhythm Non-specific intra-ventricular conduction block Minimal voltage criteria for LVH, may be normal variant ( Brando product ) Abnormal QRS-T angle, consider primary T wave abnormality Abnormal ECG When compared with ECG of 10-MAR-2023 15:28, No significant change was found Referred By: Ashleigh Orozco Electronically Signed By:JENARO DOWLING
[2023-03-11 08:36] LABS: Glucose, Whole Blood 171 mg/dL (60-115)
[2023-03-11] MEDS: buPROPion HCl XL 300 MG TAB.ER.24H PO (08:55)
[2023-03-11] MEDS: Insulin Lispro 100 UNIT/ML 3 ML VIAL SUBCUT ×2 (08:56→20:57)
[2023-03-11] MEDS: SITagliptin Phosphate 50 MG TABLET PO (09:06)
[2023-03-11] MEDS: metFORMIN HCl ER 500 MG TAB.ER.24H 1000 MG PO ×2 (09:07→21:32)
[2023-03-11] MEDS: amLODIPine Besylate 10 MG TABLET PO (09:07)
[2023-03-11] MEDS: hydrALAZINE HCl 25 MG TABLET PO ×3 (09:07→21:31)
[2023-03-11] MEDS: ARIPiprazole 2 MG TABLET PO (09:07)
[2023-03-11] MEDS: Valsartan 160 MG TABLET PO (09:07)
[2023-03-11] MEDS: buPROPion HCl XL 150 MG TAB.ER.24H PO (09:07)
[2023-03-11 10:13] VITALS: BP 117/65; PULSE 88; RESP 20; TEMP 36.6; O2SAT 95
[2023-03-11] MEDS: DULoxetine HCl 30 MG CAPSULE.DR PO (10:39)
[2023-03-11] MEDS: Meclizine HCl 25 MG TABLET PO (10:43)
[2023-03-11 12:38] LABS: Glucose, Whole Blood 117 mg/dL (60-115)
--- NOTE | 2023-03-11 14:05 | P.PNPSI_ITS ---
Subjective Subjective Date of Service: 03/11/23 Reason For Visit: Depression Interim History: c/o dizziness and lightheadedness, reaching out to the wall to steady himself while walking down the [place]. discussion held re xena his outpt prescriber had ordered for him and which he did not start. agreeable to start 30 mg daily. also interested in PRN meclizine for dizziness. further discussion of desire to do ECT. per staff, +anx/dep. states if he weren't in the hospital he would act on SI.. DFA 2/2 peer's snoring. attending groups. c/o dizziness at 0515 this morning. Mental Status Exam Mental Status Exam Narrative: calm cooperative. appropriately dressed and groomed, no PMA/PMR. speech nml in rate, decr amount, nml loudness, flattened tone, slightly incr latency. th oughts linear and logical. affect constricted, consistent with context, normo- intense, non-labile. mood depressed. no SI/SIBI/HI/AVH expressed. Diagnostics Vital Signs (24Hr): Vital Signs - 24 hr 03/10/23 15:53 03/10/23 21:50 03/11/23 10:13 Temperature 97.2 F 97.9 F Pulse Rate 91 90 88 Respiratory Rate 18 20 Blood Pressure 134/100 H 135/65 117/65 Pulse Oximetry 99 95 Oxygen Delivery Method Room Air Room Air BMI result Body Mass Index 27.8 Labs 03/07/23 12:23 03/07/23 12:23 Labs: Laboratory Results - last 48 hr 03/09/23 03/09/23 03/10/23 17:42 21:14 07:54 POC Glucose 131 H 187 H 181 H 03/10/23 03/10/23 03/10/23 12:59 17:43 22:08 POC Glucose 118 H 200 H 161 H 03/11/23 03/11/23 03/11/23 05:16 08:23 12:33 POC Glucose 147 H 171 H 117 H Medications Medications Current Medications Acetaminophen (Acetaminophen 325 Mg Tablet) 650 mg PO Q6H PRN PRN Reason: Headache/Pain Mild Scale (1-3) Last Admin: 03/11/23 05:17 Dose: 650 mg Al Hydroxide/Mg Hydroxide (Magnesium Hydrox/Alum Hydrox 30 Ml Oral.Susp) 30 ml PO Q6H PRN PRN Reason: Heartburn/Nausea Amlodipine Besylate (Amlodipine Besylate 10 Mg Tablet) 10 mg PO DAILY [facility]; Protocol Last Admin: 03/11/23 09:07 Dose: 10 mg Aripiprazole (Aripiprazole 2 Mg Tablet) 2 mg PO DAILY [facility] Last Admin: 03/11/23 09:07 Dose: 2 mg Bupropion HCl (Bupropion Hcl Xl 150 Mg Tab.Er.24h) 150 mg PO DAILY [facility] Last Admin: 03/11/23 09:07 Dose: 150 mg Bupropion HCl (Bupropion Hcl Xl 300 Mg Tab.Er.24h) 300 mg PO DAILY [facility] Last Admin: 03/11/23 08:55 Dose: 300 mg Duloxetine HCl (Duloxetine Hcl 30 Mg Capsule.Dr) 30 mg PO DAILY [facility] Last Admin: 03/11/23 10:39 Dose: 30 mg Hydralazine HCl (Hydralazine Hcl 25 Mg Tablet) 25 mg PO TID [facility]; Protocol Last Admin: 03/11/23 09:07 Dose: 25 mg Hydroxyzine HCl (Hydroxyzine Hcl 25 Mg Tablet) 25 mg PO Q6H PRN PRN Reason: Anxiety Last Admin: 03/11/23 05:17 Dose: 25 mg Insulin Human Lispro (Insulin Lispro 100 Unit/Ml 3 Ml Vial) 0 unit SUBCUT QIDACHS [facility]; Protocol Last Admin: 03/11/23 12:35 Dose: Not Given Magnesium Hydroxide (Milk Of Magnesia 30 Ml Oral.Susp) 30 ml PO DAILY PRN PRN Reason: Constipation Meclizine HCl (Meclizine Hcl 25 Mg Tablet) 25 mg PO Q6H PRN PRN Reason: dizziness Last Admin: 03/11/23 10:43 Dose: 25 mg Metformin HCl (Metformin Hcl Er 500 Mg Tab.Er.24h) 1,000 mg PO BID [facility] Last Admin: 03/11/23 09:07 Dose: 1,000 mg Nicotine (Nicotine 21 Mg Patch.Td24) 21 mg TRANSDERMA DAILY PRN PRN Reason: smoking cessation Nicotine Polacrilex (Nicotine Polacrilex 2 Mg Gum) 4 mg BUCCAL Q2H PRN PRN Reason: Nicotine Cravings Pt Own (Dulaglutide [Trulicity] 1.5 Mg/0 .5 Ml Pen Injector) 1.5 mg SUBCUT Fr [facility] Last Admin: 03/07/23 18:06 Dose: 1.5 mg Sitagliptin Phosphate (Sitagliptin Phosphate 50 Mg Tablet) 50 mg PO DAILY [facility] Last Admin: 03/11/23 09:06 Dose: 50 mg Trazodone HCl (Trazodone Hcl 50 Mg Tablet) 50 mg PO BEDTIME MRX1 PRN PRN Reason: Insomnia Last Admin: 03/09/23 22:58 Dose: 50 mg Trazodone HCl (Trazodone Hcl 100 Mg Tablet) 100 mg PO BEDTIME [facility] Last Admin: 03/10/23 22:26 Dose: 100 mg Valsartan (Valsartan 160 Mg Tablet) 160 mg PO DAILY [facility]; Protocol Last Admin: 03/11/23 09:07 Dose: 160 mg Allergies Allergies Allergy/AdvReac Type Severity Reaction Status Date / Time codeine [CODEINE] Allergy Unknown delayed Verified 11/25/22 10:40 responses 02/24/17 Assessment & Plan Assessment & Plan (1) Depression: Status: Acute Code(s): F32.A - Depression, unspecified (2) Persistent depressive disorder: Status: Acute Code(s): F34.1 - Dysthymic disorder (3) Recurrent major depression: Status: Acute Code(s): F33.9 - Major depressive disorder, recurrent, unspecified Plan 57 year old man who lives in [place] and 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 Patient with a history of Major Depression, recurrent and several inpatient psychiatric hospitalizations, the last of which was last summer. He was brought to the ED by ambulance. He had been talking to his grades 7 and 8 teacher, Abigail Odonnell COSMETIC MANAGER at [facility] and voiced SI and was making reference to his life insurance policy. This prompted her to call EMS and he was taken to the ED. He reports he had a plan of either hanging himself or cutting his wrist. 03/08: Collaterals from . Collateral with Abigail Odonnell re medication adj ustments. Consider ECT. Psychoeducation given. No medication changes for now. 03/09: Continue treatment plan. 03/10: get clearance for ECT. repeat EKG due to prolonged QTc. was recently started on cymbalta 20 mg daily, not picked up from pharmacy. will d/w patient starting or not the medication. 03/11: cardiomyopathy with slightly reduced EF, no other medical concerns for ECT. prolonged QTc, but with LBBB so corrected QT is 337. start cymbalta 30 mg daily as initiated by outpt provider. start meclizine PRN dizziness. Patient educated on: medication risk/benefits and ECT Reason for continued inpatient stay Substantial Risk for: harm to self, inability to function and rapid decompensation Time Spent With Patient Time: Total time managing care of this patient today __35__ minutes.
[2023-03-11 15:27] VITALS: BP 128/69; PULSE 95
[2023-03-11 17:24] LABS: Glucose, Whole Blood 107 mg/dL (60-115)
[2023-03-11 20:56] LABS: Glucose, Whole Blood 225 mg/dL (60-115)
[2023-03-11 21:30] VITALS: BP 141/75; PULSE 97; RESP 16; TEMP 37.1; O2SAT 95
[2023-03-11] MEDS: traZODone HCL 100 MG TABLET PO (21:32)
[2023-03-12 07:49] LABS: Glucose, Whole Blood 136 mg/dL (60-115)
[2023-03-12 07:55] VITALS: BP 123/65; PULSE 95; RESP 16; TEMP 36.3; O2SAT 97
[2023-03-12] MEDS: metFORMIN HCl ER 500 MG TAB.ER.24H 1000 MG PO ×2 (08:17→21:37)
[2023-03-12] MEDS: Valsartan 160 MG TABLET PO (08:17)
[2023-03-12] MEDS: SITagliptin Phosphate 50 MG TABLET PO (08:17)
[2023-03-12] MEDS: ARIPiprazole 2 MG TABLET PO (08:18)
[2023-03-12] MEDS: hydrALAZINE HCl 25 MG TABLET PO ×3 (08:18→21:37)
[2023-03-12] MEDS: buPROPion HCl XL 300 MG TAB.ER.24H PO (08:18)
[2023-03-12] MEDS: buPROPion HCl XL 150 MG TAB.ER.24H PO (08:18)
[2023-03-12] MEDS: amLODIPine Besylate 10 MG TABLET PO (08:19)
[2023-03-12] MEDS: DULoxetine HCl 30 MG CAPSULE.DR PO (08:19)
--- NOTE | 2023-03-12 11:42 | P.CONCA_ITS ---
History of Present Illness History of Present Illness Date of Service: 03/12/23 Chief complaint: LBBB, pre ECT Narrative: 57-year-old gentleman with background history of diabetes, hypertension left bundle-branch block previous nonischemic cardiomyopathy with improvement in ejection fraction 50 55%. He is currently inpatient for major depression and is being considered for electroconvulsive therapy. We have been asked to assess his che procedure risk. He has noncardiac chest pains which have been present for long time. He underwent cardiac catheterization for similar pains showing minimal luminal irregularities. Clinically he does not have any heart failure symptoms. As mentioned ejection fraction also improved to low normal 50-55%. Blood pressure control is good. ON LICENSE OF [facility] Past Medical History Medical History (Updated 03/12/23 @ 11:48 by Clifton Castro MD) Depression Diabetic foot ulcer HTN (hypertension) ILD (interstitial lung disease) LBBB (left bundle branch block) Osteomyelitis Preop cardiovascular exam Suicidal ideation Type 2 diabetes mellitus with foot ulcer Family History Family History Father Neck malignant neoplasm Surgical History Surgical History H/O: vasectomy Social History Social History Household Members: Family Housing: House Do you presently have visiting nurse or other home services: No Alcohol intake: current Alcohol intake frequency: a few times a month Patient Tobacco Use Status: Never used Tobacco Smoked in Last 30 Days: No e-Cigarette/Vaping Use: Never Used Patient Interested in Nicotine Replacement: No Patient Given Instructions on How to Stop Smoking: No Second Hand Smoke Exposure: No Use of substances other than those prescribed or required for medical reasons: No Substance Use Type: Marijuana Currently Displaying Signs/Symptoms of Drug Intoxication Withdrawal: No Any prior treatment program specific to substance use: No Have you been hit, kicked, punched, or otherwise hurt by someone within the past year? If so, by whom?: No Do you feel safe in your current relationship?: Yes Is there a partner from a previous relationship who is making you feel unsafe now?: No Are you made to feel afraid or neglected: No Advance Directives: Yes Advance Directives Information Provided: Yes Advance Directives on File: No Advance Directives Date on File: 04/11/22 Healthcare Proxy: No Guardian: No Do you have thoughts of harming others: None Do you have a plan to hurt others: No Plan Recently lost weight without trying: No Eating poorly because of decreased appetite: No Nutrition Risks: No Nutritional Risk Poor oral hygiene: No service: No Current occupational status: employed Sexual orientation: Straight/Heterosexual Meds Allergies Allergy/AdvReac Type Severity Reaction Status Date / Time codeine [CODEINE] Allergy Unknown delayed Verified 11/25/22 10:40 responses 02/24/17 Active Medications: Current Medications Acetaminophen (Acetaminophen 325 Mg Tablet) 650 mg PO Q6H PRN PRN Reason: Headache/Pain Mild Scale (1-3) Last Admin: 03/11/23 15:30 Dose: 650 mg Al Hydroxide/Mg Hydroxide (Magnesium Hydrox/Alum Hydrox 30 Ml Oral.Susp) 30 ml PO Q6H PRN PRN Reason: Heartburn/Nausea Amlodipine Besylate (Amlodipine Besylate 10 Mg Tablet) 10 mg PO DAILY [facility]; Protocol Last Admin: 03/12/23 08:19 Dose: 10 mg Aripiprazole (Aripiprazole 2 Mg Tablet) 2 mg PO DAILY [facility] Last Admin: 03/12/23 08:18 Dose: 2 mg Bupropion HCl (Bupropion Hcl Xl 150 Mg Tab.Er.24h) 150 mg PO DAILY [facility] Last Admin: 03/12/23 08:18 Dose: 150 mg Bupropion HCl (Bupropion Hcl Xl 300 Mg Tab.Er.24h) 300 mg PO DAILY [facility] Last Admin: 03/12/23 08:18 Dose: 300 mg Duloxetine HCl (Duloxetine Hcl 30 Mg Capsule.Dr) 30 mg PO DAILY [facility] Last Admin: 03/12/23 08:19 Dose: 30 mg Hydralazine HCl (Hydralazine Hcl 25 Mg Tablet) 25 mg PO TID [facility]; Protocol Last Admin: 03/12/23 08:18 Dose: 25 mg Hydroxyzine HCl (Hydroxyzine Hcl 25 Mg Tablet) 25 mg PO Q6H PRN PRN Reason: Anxiety Last Admin: 03/11/23 17:17 Dose: 25 mg Insulin Human Lispro (Insulin Lispro 100 Unit/Ml 3 Ml Vial) 0 unit SUBCUT QIDACHS [facility]; Protocol Last Admin: 03/12/23 08:07 Dose: Not Given Magnesium Hydroxide (Milk Of Magnesia 30 Ml Oral.Susp) 30 ml PO DAILY PRN PRN Reason: Constipation Meclizine HCl (Meclizine Hcl 25 Mg Tablet) 25 mg PO Q6H PRN PRN Reason: dizziness Last Admin: 03/11/23 10:43 Dose: 25 mg Metformin HCl (Metformin Hcl Er 500 Mg Tab.Er.24h) 1,000 mg PO BID [facility] Last Admin: 03/12/23 08:17 Dose: 1,000 mg Nicotine (Nicotine 21 Mg Patch.Td24) 21 mg TRANSDERMA DAILY PRN PRN Reason: smoking cessation Nicotine Polacrilex (Nicotine Polacrilex 2 Mg Gum) 4 mg BUCCAL Q2H PRN PRN Reason: Nicotine Cravings Pt Own (Dulaglutide [Trulicity] 1.5 Mg/0 .5 Ml Pen Injector) 1.5 mg SUBCUT [facility] Last Admin: 03/07/23 18:06 Dose: 1.5 mg Sitagliptin Phosphate (Sitagliptin Phosphate 50 Mg Tablet) 50 mg PO DAILY [facility] Last Admin: 03/12/23 08:17 Dose: 50 mg Trazodone HCl (Trazodone Hcl 50 Mg Tablet) 50 mg PO BEDTIME MRX1 PRN PRN Reason: Insomnia Last Admin: 03/09/23 22:58 Dose: 50 mg Trazodone HCl (Trazodone Hcl 100 Mg Tablet) 100 mg PO BEDTIME [facility] Last Admin: 03/11/23 21:32 Dose: 100 mg Valsartan (Valsartan 160 Mg Tablet) 160 mg PO DAILY [facility]; Protocol Last Admin: 03/12/23 08:17 Dose: 160 mg Home Medications Medication Instructions Recorded Confirmed Last Taken Type metformin 1,000 mg tablet,extended 1,000 mg PO BID 11/15/22 03/07/23 11/15/22 History release 24hr sitagliptin phosphate 50 mg tablet 50 mg PO DAILY 11/15/22 03/07/23 11/15/22 History ([place]) valsartan 160 mg tablet 160 mg PO DAILY 11/15/22 03/07/23 11/15/22 History dulaglutide 1.5 mg/0.5 mL 1.5 mg subcut QWEEK 03/07/23 03/07/23 Unknown History subcutaneous pen injector (Trulicity) Physical Exam Vital Signs: Vital Signs: Last Vital Signs Temp 97.4 F 03/12/23 07:55 Pulse 95 03/12/23 07:55 Resp 16 03/12/23 07:55 BP 123/65 03/12/23 07:55 Pulse Ox 97 03/12/23 07:55 O2 Del Method Room Air 03/12/23 07:55 BMI result Body Mass Index 27.8 GENERAL APPEARANCE: in no acute distress, depressed. NECK: no carotid bruit, no jugular venous distention. SKIN: no suspicious lesions, warm and dry. HEART: no murmurs, regular rate and rhythm. LUNGS: clear to auscultation bilaterally. ABDOMEN: soft, nontender. EXTREMITIES: no edema. PERIPHERAL PULSES: equal. NEUROLOGIC: No gross deficits, AAO X 3 Objective Labs and Meds 03/07/23 12:23 03/07/23 12:23 Lab results: Laboratory Results - last 24 hr 03/11/23 03/11/23 03/11/23 12:33 17:20 20:50 POC Glucose 117 H 107 225 H 03/12/23 07:44 POC Glucose 136 H Assessment and Plan (1) Recurrent major depression: Status: Acute (2) Preop cardiovascular exam: Status: Acute Plan 57-year-old gentleman with left bundle-branch block, low normal ejection frac tion on echocardiography and major depression. He has noncardiac chest pains. He is being considered for electroconvulsive therapy. He is intermediate risk for periprocedural complications and should proceed with it if felt to be beneficial per psychiatric evaluation. Continue same medications long. Noncardiac chest pain and does not any further testing for that. Thank you for allowing me to participate in the care of your patient. Please feel free to contact me if you have any questions. Time Spent With Patient Time: Total time managing care of this patient today ____ minutes. Procedures Date of Service Date of Service: 03/12/23
[2023-03-12 12:09] LABS: Glucose, Whole Blood 135 mg/dL (60-115)
--- NOTE | 2023-03-12 12:25 | MHC.CLN ---
NUTRITION DIET=DIABETIC 2200 KCALS. GLUCERNA BID CHANGED TO ENSURE MAX PROTEIN BID. SUPPLEMENT PROVIDES 300 KCALS, 60 G PROTEIN. SUPPLEMENT IS A LOWER CARBOHYDRATE PRODUCT.
--- NOTE | 2023-03-12 14:36 | P.PNPSI_ITS ---
Subjective Subjective Date of Service: 03/12/23 Reason For Visit: LBBB, pre ECT Interim History: c/o minor FROST. denies dizziness. mood rough. endorses SI. discussed he has been assessed as intermediate risk for complications around ECT by cardiology. pt remains interested in ECT and desirous of speaking with Dr. Anders on the subject. per staff, c/o poor sleep. + SI. no plan while in hospital. OK, appetite. appeared to have slept all NOC. Mental Status Exam Mental Status Exam Narrative: calm cooperative. appropriately dressed and groomed, no PMA/PMR. speech nml in rate, decr amount, nml loudness, flattened tone, slightly incr latency. thoughts linear and logical. affect constricted, consistent with context, hypo- intense, non-labile. mood rough. +SI. no SIBI/HI/AVH expressed. Diagnostics Vital Signs (24Hr): Vital Signs - 24 hr 03/11/23 15:27 03/11/23 21:30 03/12/23 07:55 Temperature 98.7 F 97.4 F Pulse Rate 95 97 95 Respiratory Rate 16 16 Blood Pressure 128/69 141/75 H 123/65 Pulse Oximetry 95 97 Oxygen Delivery Method Room Air Room Air BMI result Body Mass Index 27.8 Labs 03/07/23 12:23 03/07/23 12:23 Labs: Laboratory Results - last 48 hr 03/10/23 03/10/23 03/11/23 17:43 22:08 05:16 POC Glucose 200 H 161 H 147 H 03/11/23 03/11/23 03/11/23 08:23 12:33 17:20 POC Glucose 171 H 117 H 107 03/11/23 03/12/23 03/12/23 20:50 07:44 12:02 POC Glucose 225 H 136 H 135 H Medications Medications Current Medications Acetaminophen (Acetaminophen 325 Mg Tablet) 650 mg PO Q6H PRN PRN Reason: Headache/Pain Mild Scale (1-3) Last Admin: 03/11/23 15:30 Dose: 650 mg Al Hydroxide/Mg Hydroxide (Magnesium Hydrox/Alum Hydrox 30 Ml Oral.Susp) 30 ml PO Q6H PRN PRN Reason: Heartburn/Nausea Amlodipine Besylate (Amlodipine Besylate 10 Mg Tablet) 10 mg PO DAILY [facility]; Protocol Last Admin: 03/12/23 08:19 Dose: 10 mg Aripiprazole (Aripiprazole 2 Mg Tablet) 2 mg PO DAILY [facility] Last Admin: 03/12/23 08:18 Dose: 2 mg Bupropion HCl (Bupropion Hcl Xl 150 Mg Tab.Er.24h) 150 mg PO DAILY [facility] Last Admin: 03/12/23 08:18 Dose: 150 mg Bupropion HCl (Bupropion Hcl Xl 300 Mg Tab.Er.24h) 300 mg PO DAILY [facility] Last Admin: 03/12/23 08:18 Dose: 300 mg Duloxetine HCl (Duloxetine Hcl 30 Mg Capsule.Dr) 30 mg PO DAILY [facility] Last Admin: 03/12/23 08:19 Dose: 30 mg Hydralazine HCl (Hydralazine Hcl 25 Mg Tablet) 25 mg PO TID [facility]; Protocol Last Admin: 03/12/23 08:18 Dose: 25 mg Hydroxyzine HCl (Hydroxyzine Hcl 25 Mg Tablet) 25 mg PO Q6H PRN PRN Reason: Anxiety Last Admin: 03/11/23 17:17 Dose: 25 mg Insulin Human Lispro (Insulin Lispro 100 Unit/Ml 3 Ml Vial) 0 unit SUBCUT QIDACHS [facility]PL[facility]; Protocol Last Admin: 03/12/23 12:36 Dose: Not Given Magnesium Hydroxide (Milk Of Magnesia 30 Ml Oral.Susp) 30 ml PO DAILY PRN PRN Reason: Constipation Meclizine HCl (Meclizine Hcl 25 Mg Tablet) 25 mg PO Q6H PRN PRN Reason: dizziness Last Admin: 03/11/23 10:43 Dose: 25 mg Metformin HCl (Metformin Hcl Er 500 Mg Tab.Er.24h) 1,000 mg PO BID [facility] Last Admin: 03/12/23 08:17 Dose: 1,000 mg Nicotine (Nicotine 21 Mg Patch.Td24) 21 mg TRANSDERMA DAILY PRN PRN Reason: smoking cessation Nicotine Polacrilex (Nicotine Polacrilex 2 Mg Gum) 4 mg BUCCAL Q2H PRN PRN Reason: Nicotine Cravings Pt Own (Dulaglutide [Trulicity] 1.5 Mg/0 .5 Ml Pen Injector) 1.5 mg SUBCUT Fr [facility]PLACED BY [facility] Last Admin: 03/07/23 18:06 Dose: 1.5 mg Sitagliptin Phosphate (Sitagliptin Phosphate 50 Mg Tablet) 50 mg PO DAILY [facility] Last Admin: 03/12/23 08:17 Dose: 50 mg Trazodone HCl (Trazodone Hcl 50 Mg Tablet) 50 mg PO BEDTIME MRX1 PRN PRN Reason: Insomnia Last Admin: 03/09/23 22:58 Dose: 50 mg Trazodone HCl (Trazodone Hcl 100 Mg Tablet) 100 mg PO BEDTIME [facility] Last Admin: 03/11/23 21:32 Dose: 100 mg Valsartan (Valsartan 160 Mg Tablet) 160 mg PO DAILY [facility]; Protocol Last Admin: 03/12/23 08:17 Dose: 160 mg Allergies Allergies Allergy/AdvReac Type Severity Reaction Status Date / Time codeine [CODEINE] Allergy Unknown delayed Verified 11/25/22 10:40 responses 02/24/17 Assessment & Plan Assessment & Plan (1) Recurrent major depression: Status: Acute Code(s): F33.9 - Major depressive disorder, recurrent, unspecified (2) Preop cardiovascular exam: Status: Acute Code(s): Z01.810 - Encounter for preprocedural cardiovascular examination Assessment and Plan: 57-year-old gentleman with left bundle-branch block, low normal ejection fraction on echocardiography and major depression. He has noncardiac chest pains. He is being considered for electroconvulsive therapy. He is intermediate risk for periprocedural complications and should proceed with it if felt to be beneficial per psychiatric evaluation. Continue same medications long. Noncardiac chest pain and does not any further testing for that. 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 Patient with a history of Major Depression, recurrent and several inpatient psychiatric hospitalizations, the last of which was last summer. He was brought to the ED by ambulance. He had been talking to his machine fancy stitcher, Abigail Odonnell HOSPITAL SUPERINTENDENT at [facility] and voiced SI and was making reference to his life insurance policy. This prompted her to call EMS and he was taken to the ED. He reports he had a plan of either hanging himself or cutting his wrist. 03/08:? Collaterals from .? Collateral with Abigail Odonnell re medication adjustments.? Consider ECT.? Psychoeducation given.? No medication changes for now. 03/09: Continue treatment plan. 03/10:? get clearance for ECT.? repeat EKG due to prolonged QTc.? was recently started on cymbalta 20 mg daily, not picked up from pharmacy.? will d/w patient starting or not the medication. 03/11:? cardiomyopathy with slightly reduced EF, no other medical concerns for ECT.? prolonged QTc, but with LBBB so corrected QT is 337.? start cymbalta 30 mg daily as initiated by outpt provider.? start meclizine PRN dizziness. 03/12: intermediate risk per cardiology. pt remains interested in pursuing ECT. consult placed for [facility]. continue current mgmt. Reason for continued inpatient stay Substantial Risk for: harm to self, inability to function and rapid decompensation Time Spent With Patient Time: Total time managing care of this patient today __35__ minutes.
[2023-03-12 15:39] VITALS: BP 137/59; PULSE 102
[2023-03-12 17:28] LABS: Glucose, Whole Blood 124 mg/dL (60-115)
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
[2023-03-12 20:15] VITALS: BP 120/71; PULSE 89; RESP 18; TEMP 36.8; O2SAT 97
[2023-03-12 21:07] LABS: Glucose, Whole Blood 167 mg/dL (60-115)
[2023-03-12] MEDS: Insulin Lispro 100 UNIT/ML 3 ML VIAL SUBCUT (21:37)
[2023-03-12] MEDS: traZODone HCL 100 MG TABLET PO (21:37)
[2023-03-13 06:00] VITALS: BP 133/73; PULSE 85; RESP 16; TEMP 36.3; O2SAT 96
[2023-03-13 07:00] VITALS: BMI 28.2
[2023-03-13 08:16] LABS: Glucose, Whole Blood 125 mg/dL (60-115)
[2023-03-13] MEDS: SITagliptin Phosphate 50 MG TABLET PO (08:50)
[2023-03-13] MEDS: buPROPion HCl XL 300 MG TAB.ER.24H PO (08:51)
[2023-03-13] MEDS: Valsartan 160 MG TABLET PO (08:51)
[2023-03-13] MEDS: hydrALAZINE HCl 25 MG TABLET PO ×3 (08:51→21:58)
[2023-03-13] MEDS: ARIPiprazole 2 MG TABLET PO (08:51)
[2023-03-13] MEDS: DULoxetine HCl 30 MG CAPSULE.DR PO (08:52)
[2023-03-13] MEDS: buPROPion HCl XL 150 MG TAB.ER.24H PO (08:52)
[2023-03-13] MEDS: amLODIPine Besylate 10 MG TABLET PO (08:52)
[2023-03-13] MEDS: metFORMIN HCl ER 500 MG TAB.ER.24H 1000 MG PO ×2 (08:54→21:48)
[2023-03-13 09:46] LABS: Creatinine Clr Calc Pharmacy 101.7; Estimated Glomerular Filt Rate > 60
[2023-03-13 12:34] LABS: Glucose, Whole Blood 133 mg/dL (60-115)
--- NOTE | 2023-03-13 13:21 | HO.PSYCHPN ---
Subjective Subjective Date of Service: 03/13/23 Reason For Visit: LBBB, pre ECT Interim History: initially says he does not wish to pursue ECT due to financial concerns, then says he spoke with his and she informed him they can absorb the loss and he should stay for ECT if it is indicated. he ultimately decides to stay for ECT. also agrees to increase abilify to 5 mg for adjunctive anti-depressant Tx as of tomorrow. asking for disability paperwork to be completed and for someone to call his and explain ECT to her. states SI continues but not as severe. per staff, passive SI, no plan inside hospital. feeling worthless, being the victim of the scam. states his daughter is upset with him and wrote him an angry letter on the subject. Mental Status Exam Mental Status Exam Narrative: calm cooperative. appropriately dressed and groomed, no PMA/PMR. speech nml in rate, decr amount, nml loudness, flattened tone, slightly incr latency. thoughts linear and logical. affect constricted, consistent with context, hypo-intense, non-labile. mood depressed. +SI. no SIBI/HI/AVH expressed. Diagnostics Vital Signs (24Hr): Vital Signs - 24 hr 03/12/23 15:39 03/12/23 20:15 03/13/23 06:00 Temperature 98.2 F 97.4 F Pulse Rate 102 H 89 85 Respiratory Rate 18 16 Blood Pressure 137/59 L 120/71 133/73 Pulse Oximetry 97 96 Oxygen Delivery Method Room Air Room Air BMI result Body Mass Index 28.2 Labs 03/07/23 12:23 03/13/23 09:12 Labs: Laboratory Results - last 48 hr 03/11/23 03/11/23 03/12/23 17:20 20:50 07:44 Creatinine Estim Creat Clear Calc Estimated GFR POC Glucose 107 225 H 136 H 03/12/23 03/12/23 03/12/23 12:02 17:23 20:53 Creatinine Estim Creat Clear Calc Estimated GFR POC Glucose 135 H 124 H 167 H 03/13/23 03/13/23 03/13/23 08:02 09:12 12:30 Creatinine 0.83 Estim Creat Clear Calc 101.7 Estimated GFR > 60 POC Glucose 125 H 133 H Medications Medications Current Medications Acetaminophen (Acetaminophen 325 Mg Tablet) 650 mg PO Q6H PRN PRN Reason: Headache/Pain Mild Scale (1-3) Last Admin: 03/11/23 15:30 Dose: 650 mg Al Hydroxide/Mg Hydroxide (Magnesium Hydrox/Alum Hydrox 30 Ml Oral.Susp) 30 ml PO Q6H PRN PRN Reason: Heartburn/Nausea Amlodipine Besylate (Amlodipine Besylate 10 Mg Tablet) 10 mg PO DAILY [facility]; Protocol Last Admin: 03/13/23 08:52 Dose: 10 mg Aripiprazole (Aripiprazole 5 Mg Tablet) 5 mg PO DAILY [facility] Bupropion HCl (Bupropion Hcl Xl 150 Mg Tab.Er.24h) 150 mg PO DAILY [facility] Last Admin: 03/13/23 08:52 Dose: 150 mg Bupropion HCl (Bupropion Hcl Xl 300 Mg Tab.Er.24h) 300 mg PO DAILY [facility] Last Admin: 03/13/23 08:51 Dose: 300 mg Duloxetine HCl (Duloxetine Hcl 30 Mg Capsule.Dr) 30 mg PO DAILY [facility] Last Admin: 03/13/23 08:52 Dose: 30 mg Hydralazine HCl (Hydralazine Hcl 25 Mg Tablet) 25 mg PO TID [facility]; Protocol Last Admin: 03/13/23 08:51 Dose: 25 mg Hydroxyzine HCl (Hydroxyzine Hcl 25 Mg Tablet) 25 mg PO Q6H PRN PRN Reason: Anxiety Last Admin: 03/11/23 17:17 Dose: 25 mg Insulin Human Lispro (Insulin Lispro 100 Unit/Ml 3 Ml Vial) 0 unit SUBCUT QIDACHS [facility]; Protocol Last Admin: 03/13/23 13:05 Dose: Not Given Magnesium Hydroxide (Milk Of Magnesia 30 Ml Oral.Susp) 30 ml PO DAILY PRN PRN Reason: Constipation Meclizine HCl (Meclizine Hcl 25 Mg Tablet) 25 mg PO Q6H PRN PRN Reason: dizziness Last Admin: 03/11/23 10:43 Dose: 25 mg Melatonin (Melatonin 3 Mg Tablet) 3 mg PO BEDTIME PRN PRN Reason: Insomnia Metformin HCl (Metformin Hcl Er 500 Mg Tab.Er.24h) 1,000 mg PO BID [facility] Last Admin: 03/13/23 08:54 Dose: 1,000 mg Nicotine (Nicotine 21 Mg Patch.Td24) 21 mg TRANSDERMA DAILY PRN PRN Reason: smoking cessation Nicotine Polacrilex (Nicotine Polacrilex 2 Mg Gum) 4 mg BUCCAL Q2H PRN PRN Reason: Nicotine Cravings Pt Own (Dulaglutide [Trulicity] 1.5 Mg/0 .5 Ml Pen Injector) 1.5 mg SUBCUT Fr [facility] Last Admin: 03/07/23 18:06 Dose: 1.5 mg Sitagliptin Phosphate (Sitagliptin Phosphate 50 Mg Tablet) 50 mg PO DAILY [facility] Last Admin: 03/13/23 08:50 Dose: 50 mg Trazodone HCl (Trazodone Hcl 50 Mg Tablet) 50 mg PO BEDTIME MRX1 PRN PRN Reason: Insomnia Last Admin: 03/09/23 22:58 Dose: 50 mg Valsartan (Valsartan 160 Mg Tablet) 160 mg PO DAILY [facility]; Protocol Last Admin: 03/13/23 08:51 Dose: 160 mg Allergies Allergies Allergy/AdvReac Type Severity Reaction Status Date / Time codeine [CODEINE] Allergy Unknown delayed Verified 11/25/22 10:40 responses 02/24/17 Assessment & Plan Assessment & Plan (1) Recurrent major depression: Status: Acute Code(s): F33.9 - Major depressive disorder, recurrent, unspecified (2) Preop cardiovascular exam: Status: Acute Code(s): Z01.810 - Encounter for preprocedural cardiovascular examination Assessment and Plan: 57-year-old gentleman with left bundle-branch block, low normal ejection fraction on echocardiography and major depression. He has noncardiac chest pains. He is being considered for electroconvulsive therapy. He is intermediate risk for periprocedural complications and should proceed with it if felt to be beneficial per psychiatric evaluation. Continue same medications long. Noncardiac chest pain and does not any further testing for that. 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 Patient with a history of Major Depression, recurrent and several inpatient psychiatric hospitalizations, the last of which was last summer. He was brought to the ED by ambulance. He had been talking to his garden consultant, Abigail Odonnell [employer] at [facility] and voiced SI and was making reference to his life insurance policy. This prompted her to call EMS and he was taken to the ED. He reports he had a plan of either hanging himself or cutting his wrist. 03/08:? Collaterals from .? Collateral with Abigail Odonnell re medication adjustments.? Consider ECT.? Psychoeducation given.? No medication changes for now. 03/09: Continue treatment plan. 03/10:? get clearance for ECT.? repeat EKG due to prolonged QTc.? was recently started on cymbalta 20 mg daily, not picked up from pharmacy.? will d/w patient starting or not the medication. 03/11:? cardiomyopathy with slightly reduced EF, no other medical concerns for ECT.? prolonged QTc, but with LBBB so corrected QT is 337.? start cymbalta 30 mg daily as initiated by outpt provider.? start meclizine PRN dizziness. 03/12: intermediate risk per cardiology. pt remains interested in pursuing ECT. consult placed for [facility]. continue current mgmt. 03/13: increase abilify to 5 mg daily for adjunctive anti-depressant effect. ECT #1 scheduled for tomorrow. Reason for continued inpatient stay Substantial Risk for: harm to self, inability to function and rapid decompensation Time Spent With Patient Time: Total time managing care of this patient today _35___ minutes.
[2023-03-13 15:01] VITALS: BP 140/70; PULSE 91
[2023-03-13] MEDS: hydrOXYzine HCL 25 MG TABLET PO ×2 (15:15→21:47)
--- NOTE | 2023-03-13 16:59 | PC.NURSE ---
Per Patient anxiety and depression rate 8/10 for both, but continues to endorse SI with plan to cut self and end his life when he goes home. Per patient, won't hurt myself here and will let staff know how I feel. Patient appears sullen with flat affect. Patient received Prn atarax 25mg with some effect noted from previous 03/23 anxiety and depression. Patient reported received call from his asking him to leave his home. Patient provided one to one contact. Dr Do notified of patient's status.
[2023-03-13 17:28] LABS: Glucose, Whole Blood 132 mg/dL (60-115)
[2023-03-13 20:00] VITALS: BP 118/62; PULSE 100; TEMP 36.6; O2SAT 96
[2023-03-13 21:01] LABS: Glucose, Whole Blood 169 mg/dL (60-115)
[2023-03-13] MEDS: Insulin Lispro 100 UNIT/ML 3 ML VIAL SUBCUT (21:47)
[2023-03-13] MEDS: traZODone HCL 50 MG TABLET PO (21:48)
[2023-03-14] VITALS (12 sets, daily range): BP systolic 117–143; BP diastolic 60–80; PULSE 77–96; RESP 16–23; TEMP 36.2–37; O2SAT 94–98; BMI 28.2
--- NOTE | 2023-03-14 07:39 | HO.ANESPROP2 ---
[facility] Active Problems Active Problems: All Active Problems (Updated 03/12/23 @ 11:48 by Clifton Castro MD) Preop cardiovascular exam (Acute) Recurrent major depression (Acute) Persistent depressive disorder (Acute) Depression (Acute) Suicidal ideation (Acute) ILD (interstitial lung disease) (Acute) Persistent cough (Acute) Acute respiratory failure with hypoxia (Acute) Community acquired pneumonia (Acute) Heart disease, unspecified (Acute) Dizziness (Acute) Past Medical History Medical History (Updated 03/12/23 @ 11:48 by Clifton Castro MD) Depression Diabetic foot ulcer HTN (hypertension) ILD (interstitial lung disease) LBBB (left bundle branch block) Osteomyelitis Preop cardiovascular exam Suicidal ideation Type 2 diabetes mellitus with foot ulcer Family History Family History Father Neck malignant neoplasm Family history of problems with anesthesia: No Surgical History Surgical History H/O: vasectomy History of Problems with Anesthesia: No Social History Social History Household Members: Family Housing: House Do you presently have visiting nurse or other home services: No Alcohol intake: current Alcohol intake frequency: a few times a month Patient Tobacco Use Status: Never used Tobacco Smoked in Last 30 Days: No e-Cigarette/Vaping Use: Never Used Patient Interested in Nicotine Replacement: No Patient Given Instructions on How to Stop Smoking: No Second Hand Smoke Exposure: No Use of substances other than those prescribed or required for medical reasons: No Substance Use Type: Marijuana Currently Displaying Signs/Symptoms of Drug Intoxication Withdrawal: No Any prior treatment program specific to substance use: No Have you been hit, kicked, punched, or otherwise hurt by someone within the past year? If so, by whom?: No Do you feel safe in your current relationship?: Yes Is there a partner from a previous relationship who is making you feel unsafe now?: No Are you made to feel afraid or neglected: No Are you DNR?: No Advance Directives: Yes Advance Directives Information Provided: Yes Advance Directives on File: No Advance Directives Date on File: 04/11/22 Healthcare Proxy: No Guardian: No Do you have thoughts of harming others: None Do you have a plan to hurt others: No Plan Recently lost weight without trying: No Eating poorly because of decreased appetite: No Nutrition Risks: No Nutritional Risk Poor oral hygiene: No service: No Current occupational status: employed Sexual orientation: Straight/Heterosexual Meds Allergies Allergy/AdvReac Type Severity Reaction Status Date / Time codeine [CODEINE] Allergy Unknown delayed Verified 11/25/22 10:40 responses 02/24/17 Active Medications: Current Medications Acetaminophen (Acetaminophen 325 Mg Tablet) 650 mg PO Q6H PRN PRN Reason: Headache/Pain Mild Scale (1-3) Last Admin: 03/11/23 15:30 Dose: 650 mg Al Hydroxide/Mg Hydroxide (Magnesium Hydrox/Alum Hydrox 30 Ml Oral.Susp) 30 ml PO Q6H PRN PRN Reason: Heartburn/Nausea Amlodipine Besylate (Amlodipine Besylate 10 Mg Tablet) 10 mg PO DAILY [facility]; Protocol Last Admin: 03/13/23 08:52 Dose: 10 mg Aripiprazole (Aripiprazole 5 Mg Tablet) 5 mg PO DAILY [facility] Bupropion HCl (Bupropion Hcl Xl 150 Mg Tab.Er.24h) 150 mg PO DAILY [facility] Last Admin: 03/13/23 08:52 Dose: 150 mg Bupropion HCl (Bupropion Hcl Xl 300 Mg Tab.Er.24h) 300 mg PO DAILY [facility] Last Admin: 03/13/23 08:51 Dose: 300 mg Duloxetine HCl (Duloxetine Hcl 30 Mg Capsule.Dr) 30 mg PO DAILY [facility] Last Admin: 03/13/23 08:52 Dose: 30 mg Hydralazine HCl (Hydralazine Hcl 25 Mg Tablet) 25 mg PO TID [facility]; Protocol Last Admin: 03/13/23 21:58 Dose: 25 mg Hydroxyzine HCl (Hydroxyzine Hcl 25 Mg Tablet) 25 mg PO Q6H PRN PRN Reason: Anxiety Last Admin: 03/13/23 21:47 Dose: 25 mg Insulin Human Lispro (Insulin Lispro 100 Unit/Ml 3 Ml Vial) 0 unit SUBCUT QIDACHS [facility]; Protocol Last Admin: 03/13/23 21:47 Dose: 2 unit Magnesium Hydroxide (Milk Of Magnesia 30 Ml Oral.Susp) 30 ml PO DAILY PRN PRN Reason: Constipation Meclizine HCl (Meclizine Hcl 25 Mg Tablet) 25 mg PO Q6H PRN PRN Reason: dizziness Last Admin: 03/11/23 10:43 Dose: 25 mg Melatonin (Melatonin 3 Mg Tablet) 3 mg PO BEDTIME PRN PRN Reason: Insomnia Metformin HCl (Metformin Hcl Er 500 Mg Tab.Er.24h) 1,000 mg PO BID [facility] Last Admin: 03/13/23 21:48 Dose: 1,000 mg Nicotine (Nicotine 21 Mg Patch.Td24) 21 mg TRANSDERMA DAILY PRN PRN Reason: smoking cessation Nicotine Polacrilex (Nicotine Polacrilex 2 Mg Gum) 4 mg BUCCAL Q2H PRN PRN Reason: Nicotine Cravings Pt Own (Dulaglutide [Trulicity] 1.5 Mg/0 .5 Ml Pen Injector) 1.5 mg SUBCUT [facility] Last Admin: 03/07/23 18:06 Dose: 1.5 mg Sitagliptin Phosphate (Sitagliptin Phosphate 50 Mg Tablet) 50 mg PO DAILY [facility] Last Admin: 03/13/23 08:50 Dose: 50 mg Trazodone HCl (Trazodone Hcl 50 Mg Tablet) 50 mg PO BEDTIME MRX1 PRN PRN Reason: Insomnia Last Admin: 03/13/23 21:48 Dose: 50 mg Valsartan (Valsartan 160 Mg Tablet) 160 mg PO DAILY [facility]; Protocol Last Admin: 03/13/23 08:51 Dose: 160 mg Home Medications Medication Instructions Recorded Confirmed Last Taken Type metformin 1,000 mg tablet,extended 1,000 mg PO BID 11/15/22 03/07/23 11/15/22 History release 24hr sitagliptin phosphate 50 mg tablet 50 mg PO DAILY 11/15/22 03/07/23 11/15/22 History ([place]) valsartan 160 mg tablet 160 mg PO DAILY 11/15/22 03/07/23 11/15/22 History dulaglutide 1.5 mg/0.5 mL 1.5 mg subcut QWEEK 03/07/23 03/07/23 Unknown History subcutaneous pen injector (Trulicity) Exam Exam Date and Time: March 14, 2023 0739 Height,Weight and Vital Signs: Height 5 ft 8 in Weight 84.27 kg Last Vital Signs Temp 97.4 F 03/14/23 07:20 Pulse 81 03/14/23 07:20 Resp 18 03/14/23 07:20 BP 117/71 03/14/23 07:20 Pulse Ox 95 03/14/23 07:20 O2 Del Method Room Air 03/14/23 07:20 Pertinent Lab Results Pertinent Lab Results: Laboratory Tests 03/07/23 03/07/23 03/07/23 12:14 12:14 12:17 WBC RBC Hgb Hct MCV MCH MCHC RDW Plt Count MPV Immature Gran % (Auto) Neut % (Auto) Lymph % (Auto) [place] % (Auto) Eos % (Auto) Baso % (Auto) Lymph # (Auto) [place] # (Auto) Eos # (Auto) Baso # (Auto) Abs Immat Gran (auto) Absolute Neuts (auto) Absolute Nucleated RBC Nucleated RBC % (auto) Sodium Potassium Chloride Carbon Dioxide Anion Gap BUN Creatinine Estim Creat Clear Calc Estimated GFR POC Glucose 296 H Random Glucose Calcium Magnesium Total Bilirubin AST ALT Alkaline Phosphatase Total Protein Albumin Urine Color Yellow Urine Appearance Clear Urine pH 5.5 Ur Specific [place] 1.015 Urine Protein Negative Urine Glucose (UA) >=1000 H Urine Ketones Negative Urine Blood Negative Urine Nitrite Negative Ur Leukocyte Esterase Negative Urine RBC 0-2 Urine WBC 0-5 Ur Squamous Epith Cells 0-2 Urine Bacteria None Seen Hyaline Casts 0-2 Salicylates Urine Opiates Screen Not Detected Urine Fentanyl Screen Not Detected Acetaminophen Ur Barbiturates Screen Not Detected Ur Phencyclidine Scrn Not Detected Ur Amphetamines Screen Not Detected U Benzodiazepines Scrn Not Detected Urine Cocaine Screen Not Detected U Marijuana (THC) Screen Not Detected Ethyl Alcohol COVID-19 ([facility]) COVID-19 Clin Com 03/07/23 03/07/23 03/07/23 12:23 12:23 12:23 WBC 5.7 RBC 5.30 Hgb 15.0 Hct 46.2 MCV 87.2 MCH 28.3 MCHC 32.5 RDW 13.5 Plt Count 214 D MPV 9.9 Immature Gran % (Auto) 0.2 Neut % (Auto) 57.7 Lymph % (Auto) 26.6 [place] % (Auto) 8.8 Eos % (Auto) 5.6 H Baso % (Auto) 1.1 Lymph # (Auto) 1.5 [place] # (Auto) 0.5 Eos # (Auto) 0.3 Baso # (Auto) 0.1 Abs Immat Gran (auto) 0.01 Absolute Neuts (auto) 3.3 Absolute Nucleated RBC 0.000 Nucleated RBC % (auto) 0.0 Sodium 142 Potassium 4.4 Chloride 106 Carbon Dioxide 27 Anion Gap 13 BUN 19 H Creatinine 1.06 Estim Creat Clear Calc 80.1 Estimated GFR > 60 POC Glucose Random Glucose 304 H Calcium 9.9 D Magnesium 2.0 Total Bilirubin 0.6 AST 19 ALT 14 Alkaline Phosphatase 82 Total Protein 7.1 Albumin 4.1 Urine Color Urine Appearance Urine pH Ur Specific [place] Urine Protein Urine Glucose (UA) Urine Ketones Urine Blood Urine Nitrite Ur Leukocyte Esterase Urine RBC Urine WBC Ur Squamous Epith Cells Urine Bacteria Hyaline Casts Salicylates < 5.0 L Urine Opiates Screen Urine Fentanyl Screen Acetaminophen < 17 Ur Barbiturates Screen Ur Phencyclidine Scrn Ur Amphetamines Screen U Benzodiazepines Scrn Urine Cocaine Screen U Marijuana (THC) Screen Ethyl Alcohol < 10 COVID-19 ([facility]) COVID-[facility] 03/07/23 03/07/23 03/07/23 14:44 17:56 21:46 WBC RBC Hgb Hct MCV MCH MCHC RDW Plt Count MPV Immature Gran % (Auto) Neut % (Auto) Lymph % (Auto) [place] % (Auto) Eos % (Auto) Baso % (Auto) Lymph # (Auto) [place] # (Auto) Eos # (Auto) Baso # (Auto) Abs Immat Gran (auto) Absolute Neuts (auto) Absolute Nucleated RBC Nucleated RBC % (auto) Sodium Potassium Chloride Carbon Dioxide Anion Gap BUN Creatinine Estim Creat Clear Calc Estimated GFR POC Glucose 297 H 320 H Random Glucose Calcium Magnesium Total Bilirubin AST ALT Alkaline Phosphatase Total Protein Albumin Urine Color Urine Appearance Urine pH Ur Specific [place] Urine Protein Urine Glucose (UA) Urine Ketones Urine Blood Urine Nitrite Ur Leukocyte Esterase Urine RBC Urine WBC Ur Squamous Epith Cells Urine Bacteria Hyaline Casts Salicylates Urine Opiates Screen Urine Fentanyl Screen Acetaminophen Ur Barbiturates Screen Ur Phencyclidine Scrn Ur Amphetamines Screen U Benzodiazepines Scrn Urine Cocaine Screen U Marijuana (THC) Screen Ethyl Alcohol COVID-19 ([facility]) Negative COVID-[facility] See Note 03/08/23 03/08/23 03/08/23 08:15 12:12 17:35 WBC RBC Hgb Hct MCV MCH MCHC RDW Plt Count MPV Immature Gran % (Auto) Neut % (Auto) Lymph % (Auto) [place] % (Auto) Eos % (Auto) Baso % (Auto) Lymph # (Auto) [place] # (Auto) Eos # (Auto) Baso # (Auto) Abs Immat Gran (auto) Absolute Neuts (auto) Absolute Nucleated RBC Nucleated RBC % (auto) Sodium Potassium Chloride Carbon Dioxide Anion Gap BUN Creatinine Estim Creat Clear Calc Estimated GFR POC Glucose 144 H 149 H 192 H Random Glucose Calcium Magnesium Total Bilirubin AST ALT Alkaline Phosphatase Total Protein Albumin Urine Color Urine Appearance Urine pH Ur Specific [place] Urine Protein Urine Glucose (UA) Urine Ketones Urine Blood Urine Nitrite Ur Leukocyte Esterase Urine RBC Urine WBC Ur Squamous Epith Cells Urine Bacteria Hyaline Casts Salicylates Urine Opiates Screen Urine Fentanyl Screen Acetaminophen Ur Barbiturates Screen Ur Phencyclidine Scrn Ur Amphetamines Screen U Benzodiazepines Scrn Urine Cocaine Screen U Marijuana (THC) Screen Ethyl Alcohol COVID-19 ([facility]) [employer] 03/08/23 03/09/23 03/09/23 20:09 08:59 12:35 WBC RBC Hgb Hct MCV MCH MCHC RDW Plt Count MPV Immature Gran % (Auto) Neut % (Auto) Lymph % (Auto) [place] % (Auto) Eos % (Auto) Baso % (Auto) Lymph # (Auto) [place] # (Auto) Eos # (Auto) Baso # (Auto) Abs Immat Gran (auto) Absolute Neuts (auto) Absolute Nucleated RBC Nucleated RBC % (auto) Sodium Potassium Chloride Carbon Dioxide Anion Gap BUN Creatinine Estim Creat Clear Calc Estimated GFR POC Glucose 258 H 220 H 100 Random Glucose Calcium Magnesium Total Bilirubin AST ALT Alkaline Phosphatase Total Protein Albumin Urine Color Urine Appearance Urine pH Ur Specific [place] Urine Protein Urine Glucose (UA) Urine Ketones Urine Blood Urine Nitrite Ur Leukocyte Esterase Urine RBC Urine WBC Ur Squamous Epith Cells Urine Bacteria Hyaline Casts Salicylates Urine Opiates Screen Urine Fentanyl Screen Acetaminophen Ur Barbiturates Screen Ur Phencyclidine Scrn Ur Amphetamines Screen U Benzodiazepines Scrn Urine Cocaine Screen U Marijuana (THC) Screen Ethyl Alcohol COVID-19 ([facility]) COVID-[facility] 03/09/23 03/09/23 03/10/23 17:42 21:14 07:54 WBC RBC Hgb Hct MCV MCH MCHC RDW Plt Count MPV Immature Gran % (Auto) Neut % (Auto) Lymph % (Auto) [place] % (Auto) Eos % (Auto) Baso % (Auto) Lymph # (Auto) [place] # (Auto) Eos # (Auto) Baso # (Auto) Abs Immat Gran (auto) Absolute Neuts (auto) Absolute Nucleated RBC Nucleated RBC % (auto) Sodium Potassium Chloride Carbon Dioxide Anion Gap BUN Creatinine Estim Creat Clear Calc Estimated GFR POC Glucose 131 H 187 H 181 H Random Glucose Calcium Magnesium Total Bilirubin AST ALT Alkaline Phosphatase Total Protein Albumin Urine Color Urine Appearance Urine pH Ur Specific [place] Urine Protein Urine Glucose (UA) Urine Ketones Urine Blood Urine Nitrite Ur Leukocyte Esterase Urine RBC Urine WBC Ur Squamous Epith Cells Urine Bacteria Hyaline Casts Salicylates Urine Opiates Screen Urine Fentanyl Screen Acetaminophen Ur Barbiturates Screen Ur Phencyclidine Scrn Ur Amphetamines Screen U Benzodiazepines Scrn Urine Cocaine Screen U Marijuana (THC) Screen Ethyl Alcohol COVID-19 ([facility]) COVID-19 [employer] 03/10/23 03/10/23 03/10/23 12:59 17:43 22:08 WBC RBC Hgb Hct MCV MCH MCHC RDW Plt Count MPV Immature Gran % (Auto) Neut % (Auto) Lymph % (Auto) [place] % (Auto) Eos % (Auto) Baso % (Auto) Lymph # (Auto) [place] # (Auto) Eos # (Auto) Baso # (Auto) Abs Immat Gran (auto) Absolute Neuts (auto) Absolute Nucleated RBC Nucleated RBC % (auto) Sodium Potassium Chloride Carbon Dioxide Anion Gap BUN Creatinine Estim Creat Clear Calc Estimated GFR POC Glucose 118 H 200 H 161 H Random Glucose Calcium Magnesium Total Bilirubin AST ALT Alkaline Phosphatase Total Protein Albumin Urine Color Urine Appearance Urine pH Ur Specific [place] Urine Protein Urine Glucose (UA) Urine Ketones Urine Blood Urine Nitrite Ur Leukocyte Esterase Urine RBC Urine WBC Ur Squamous Epith Cells Urine Bacteria Hyaline Casts Salicylates Urine Opiates Screen Urine Fentanyl Screen Acetaminophen Ur Barbiturates Screen Ur Phencyclidine Scrn Ur Amphetamines Screen U Benzodiazepines Scrn Urine Cocaine Screen U Marijuana (THC) Screen Ethyl Alcohol COVID-19 ([facility]) COVID-19 [employer] 03/11/23 03/11/23 03/11/23 05:16 08:23 12:33 WBC RBC Hgb Hct MCV MCH MCHC RDW Plt Count MPV Immature Gran % (Auto) Neut % (Auto) Lymph % (Auto) [place] % (Auto) Eos % (Auto) Baso % (Auto) Lymph # (Auto) [place] # (Auto) Eos # (Auto) Baso # (Auto) Abs Immat Gran (auto) Absolute Neuts (auto) Absolute Nucleated RBC Nucleated RBC % (auto) Sodium Potassium Chloride Carbon Dioxide Anion Gap BUN Creatinine Estim Creat Clear Calc Estimated GFR POC Glucose 147 H 171 H 117 H Random Glucose Calcium Magnesium Total Bilirubin AST ALT Alkaline Phosphatase Total Protein Albumin Urine Color Urine Appearance Urine pH Ur Specific [place] Urine Protein Urine Glucose (UA) Urine Ketones Urine Blood Urine Nitrite Ur Leukocyte Esterase Urine RBC Urine WBC Ur Squamous Epith Cells Urine Bacteria Hyaline Casts Salicylates Urine Opiates Screen Urine Fentanyl Screen Acetaminophen Ur Barbiturates Screen Ur Phencyclidine Scrn Ur Amphetamines Screen U Benzodiazepines Scrn Urine Cocaine Screen U Marijuana (THC) Screen Ethyl Alcohol COVID-19 ([facility]) COVID-19 [employer] Com 03/11/23 03/11/23 03/12/23 17:20 20:50 07:44 WBC RBC Hgb Hct MCV MCH MCHC RDW Plt Count MPV Immature Gran % (Auto) Neut % (Auto) Lymph % (Auto) [place] % (Auto) Eos % (Auto) Baso % (Auto) Lymph # (Auto) [place] # (Auto) Eos # (Auto) Baso # (Auto) Abs Immat Gran (auto) Absolute Neuts (auto) Absolute Nucleated RBC Nucleated RBC % (auto) Sodium Potassium Chloride Carbon Dioxide Anion Gap BUN Creatinine Estim Creat Clear Calc Estimated GFR POC Glucose 107 225 H 136 H Random Glucose Calcium Magnesium Total Bilirubin AST ALT Alkaline Phosphatase Total Protein Albumin Urine Color Urine Appearance Urine pH Ur Specific [place] Urine Protein Urine Glucose (UA) Urine Ketones Urine Blood Urine Nitrite Ur Leukocyte Esterase Urine RBC Urine WBC Ur Squamous Epith Cells Urine Bacteria Hyaline Casts Salicylates Urine Opiates Screen Urine Fentanyl Screen Acetaminophen Ur Barbiturates Screen Ur Phencyclidine Scrn Ur Amphetamines Screen U Benzodiazepines Scrn Urine Cocaine Screen U Marijuana (THC) Screen Ethyl Alcohol COVID-19 ([facility]) COVID-19 [employer] Com 03/12/23 03/12/23 03/12/23 12:02 17:23 20:53 WBC RBC Hgb Hct MCV MCH MCHC RDW Plt Count MPV Immature Gran % (Auto) Neut % (Auto) Lymph % (Auto) [place] % (Auto) Eos % (Auto) Baso % (Auto) Lymph # (Auto) [place] # (Auto) Eos # (Auto) Baso # (Auto) Abs Immat Gran (auto) Absolute Neuts (auto) Absolute Nucleated RBC Nucleated RBC % (auto) Sodium Potassium Chloride Carbon Dioxide Anion Gap BUN Creatinine Estim Creat Clear Calc Estimated GFR POC Glucose 135 H 124 H 167 H Random Glucose Calcium Magnesium Total Bilirubin AST ALT Alkaline Phosphatase Total Protein Albumin Urine Color Urine Appearance Urine pH Ur Specific [place] Urine Protein Urine Glucose (UA) Urine Ketones Urine Blood Urine Nitrite Ur Leukocyte Esterase Urine RBC Urine WBC Ur Squamous Epith Cells Urine Bacteria Hyaline Casts Salicylates Urine Opiates Screen Urine Fentanyl Screen Acetaminophen Ur Barbiturates Screen Ur Phencyclidine Scrn Ur Amphetamines Screen U Benzodiazepines Scrn Urine Cocaine Screen U Marijuana (THC) Screen Ethyl Alcohol COVID-19 ([facility]) COVID-19 Clin Com 03/13/23 03/13/23 03/13/23 08:02 09:12 12:30 WBC RBC Hgb Hct MCV MCH MCHC RDW Plt Count MPV Immature Gran % (Auto) Neut % (Auto) Lymph % (Auto) [place] % (Auto) Eos % (Auto) Baso % (Auto) Lymph # (Auto) [place] # (Auto) Eos # (Auto) Baso # (Auto) Abs Immat Gran (auto) Absolute Neuts (auto) Absolute Nucleated RBC Nucleated RBC % (auto) Sodium Potassium Chloride Carbon Dioxide Anion Gap BUN Creatinine 0.83 Estim Creat Clear Calc 101.7 Estimated GFR > 60 POC Glucose 125 H 133 H Random Glucose Calcium Magnesium Total Bilirubin AST ALT Alkaline Phosphatase Total Protein Albumin Urine Color Urine Appearance Urine pH Ur Specific [place] Urine Protein Urine Glucose (UA) Urine Ketones Urine Blood Urine Nitrite Ur Leukocyte Esterase Urine RBC Urine WBC Ur Squamous Epith Cells Urine Bacteria Hyaline Casts Salicylates Urine Opiates Screen Urine Fentanyl Screen Acetaminophen Ur Barbiturates Screen Ur Phencyclidine Scrn Ur Amphetamines Screen U Benzodiazepines Scrn Urine Cocaine Screen U Marijuana (THC) Screen Ethyl Alcohol COVID-19 ([facility]) COVID-19 Clin Com 03/13/23 03/13/23 17:23 20:52 WBC RBC Hgb Hct MCV MCH MCHC RDW Plt Count MPV Immature Gran % (Auto) Neut % (Auto) Lymph % (Auto) [place] % (Auto) Eos % (Auto) Baso % (Auto) Lymph # (Auto) [place] # (Auto) Eos # (Auto) Baso # (Auto) Abs Immat Gran (auto) Absolute Neuts (auto) Absolute Nucleated RBC Nucleated RBC % (auto) Sodium Potassium Chloride Carbon Dioxide Anion Gap BUN Creatinine Estim Creat Clear Calc Estimated GFR POC Glucose 132 H 169 H Random Glucose Calcium Magnesium Total Bilirubin AST ALT Alkaline Phosphatase Total Protein Albumin Urine Color Urine Appearance Urine pH Ur Specific [place] Urine Protein Urine Glucose (UA) Urine Ketones Urine Blood Urine Nitrite Ur Leukocyte Esterase Urine RBC Urine WBC Ur Squamous Epith Cells Urine Bacteria Hyaline Casts Salicylates Urine Opiates Screen Urine Fentanyl Screen Acetaminophen Ur Barbiturates Screen Ur Phencyclidine Scrn Ur Amphetamines Screen U Benzodiazepines Scrn Urine Cocaine Screen U Marijuana (THC) Screen Ethyl Alcohol COVID-19 ([facility]) COVID-19 Clin Com Airway Mallampati Class: II TM Dist: >3cm Neck ROM: Full Heart: rrr Lungs: cta Assessment and Plan Assessment Anesthesia Assessment: Anesthesia Plan Discussed and Chart Reviewed Final Anesthetic Review Family History of Problems with Anesthesia: No History of Problems with Anesthesia: No NPO: Yes ASA Class: III Final Preanesthetic Review: No Changes in Pt Med Stat, Meds/Allgs Chart Reviewed and Consent Obtained/Reviewed Patient Risk: Intermediate Procedure Risk: Intermediate Anesthetic Plan Anesthetic Plan: GA Disposition: Standard PACU
[2023-03-14 07:51] LABS: Glucose, Whole Blood 101 mg/dL (60-115)
--- NOTE | 2023-03-14 08:04 | MHC.SHP ---
Pre-Procedural Eval Section A Date of Service: 03/14/23 The patient is an INPATIENT: Yes Changes since office visit: Yes New Medical Problems, Yes Changes in Medication and Yes Patient answered all questions; No Cold of Flu in the past 2 weeks The History & Physical has been completed within 30 days and I have reviewed it.: Yes Section B Chief Complaint: LBBB, pre ECT Allergies: Allergies Allergy/AdvReac Type Severity Reaction Status Date / Time codeine [CODEINE] Allergy Unknown delayed Verified 11/25/22 10:40 responses 02/24/17 Plan I have reviewed the history and physical and performed a pertinent physical examination on my patient. No changes have occurred unless specified. Time Spent With Patient Time: Total time managing care of this patient today ____ minutes.
--- NOTE | 2023-03-14 10:20 | HO.ECTPROC ---
ECT Procedure Note Diagnosis/Treatment Date of Service: 03/14/23 Diagnosis: Major Depressive Disorder Current Treatment Number: 1 Treatment: Series Interval Clinical Notes: pt with tx resistant dep hx. has lbb cardiology consult reviewed Time: Total time managing care of this patient today ____ minutes. ECT Settings Device: THYMATRON DGx Electrode Placement: Right Unilateral Program/Pulse Width: 0.25 Energy Percent: 100 Seizure Duration By EEG (in seconds): 24 Medications Administration General Anesthetic: Etomidate (14) Muscle Relaxant: Succinylcholine (140) Ancillary Medications Analgesics: Torodol - Pre ECT Anti-emetics: Zofran - Pre ECT Airway Management Airway Management: LMA Treatment Recommendations Program/Pulse Width: 0.50 Notes: needed [employer] program 0.5 program Pt Tolerated Procedure w/o Issue: Yes
[2023-03-14 11:13] LABS: Glucose, Whole Blood 104 mg/dL (60-115)
[2023-03-14] MEDS: SITagliptin Phosphate 50 MG TABLET PO (11:57)
[2023-03-14] MEDS: DULoxetine HCl 30 MG CAPSULE.DR PO (11:57)
[2023-03-14] MEDS: amLODIPine Besylate 10 MG TABLET PO (11:58)
[2023-03-14] MEDS: metFORMIN HCl ER 500 MG TAB.ER.24H 1000 MG PO ×2 (11:58→21:57)
[2023-03-14] MEDS: Valsartan 160 MG TABLET PO (11:58)
[2023-03-14] MEDS: ARIPiprazole 5 MG TABLET PO (11:58)
[2023-03-14] MEDS: hydrALAZINE HCl 25 MG TABLET PO ×3 (11:58→21:57)
[2023-03-14] MEDS: buPROPion HCl XL 300 MG TAB.ER.24H PO (11:58)
[2023-03-14] MEDS: buPROPion HCl XL 150 MG TAB.ER.24H PO (11:58)
--- NOTE | 2023-03-14 12:49 | PC.NURSE ---
Juan Ramon returned from ECT this morning and was alert and oriented x4. Vitals were stable; see documentation. He denied headache and nausea. He reported feeling tired and somewhat dizzy. This RN walked with him the length of the hallway and his gait appeared steady. He was encouraged to rest frequently and get up slowly. Will continue to monitor for safety and changes in behavior.
--- NOTE | 2023-03-14 13:58 | P.PNPSI_ITS ---
Subjective Subjective Date of Service: 03/14/23 Reason For Visit: LBBB, pre ECT Interim History: seen in his room post-ECT. flat expression. states he feels no different after first ECT. some confusion, mild FROST. also starting increased dose of abilify today. per staff, c/o racing thoughts, insomnia. poor appetite. told him he has to leave their home. appeared to have slept well last NOC. Mental Status Exam Mental Status Exam Narrative: calm cooperative. appropriately dressed and groomed. slight PMR. speech decr in rate, decr amount, nml loudness, flattened tone, slightly incr latency. thoughts linear and logical. affect flat, consistent with context, hypo-intense , non-labile. mood depressed. no SI/SIBI/HI/AVH expressed. Diagnostics Vital Signs (24Hr): Vital Signs - 24 hr 03/13/23 15:01 03/13/23 20:00 03/14/23 06:04 Temperature 97.8 F 97.2 F Pulse Rate 91 100 87 Respiratory Rate 16 Blood Pressure 140/70 H 118/62 130/65 Pulse Oximetry 96 98 Oxygen Delivery Method Room Air Oxygen Flow Rate 03/14/23 06:14 03/14/23 07:20 03/14/23 10:08 Temperature 98.0 F 97.4 F 98.6 F Pulse Rate 77 81 85 Respiratory Rate 18 18 23 H Blood Pressure 118/60 117/71 143/80 H Pulse Oximetry 97 95 95 Oxygen Delivery Method Room Air Nasal Cannula with ETCO2 Oxygen Flow Rate 3 03/14/23 10:13 03/14/23 10:18 03/14/23 10:23 Temperature Pulse Rate 85 84 84 Respiratory Rate 21 H 20 22 H Blood Pressure 134/71 130/71 125/71 Pulse Oximetry 94 95 94 Oxygen Delivery Method Nasal Cannula with ETCO2 Nasal Cannula with ETCO2 Nasal Cannula with ETCO2 Oxygen Flow Rate 3 3 1 03/14/23 10:38 03/14/23 10:57 03/14/23 11:05 Temperature 97.3 F 97.7 F Pulse Rate 88 86 89 Respiratory Rate 22 H 20 16 Blood Pressure 125/70 123/70 140/72 H Pulse Oximetry 96 96 96 Oxygen Delivery Method Nasal Cannula with ETCO2 Room Air Room Air Oxygen Flow Rate 1 BMI result Body Mass Index 28.2 Labs 03/07/23 12:23 03/13/23 09:12 Labs: Laboratory Results - last 48 hr 03/12/23 03/12/23 03/13/23 17:23 20:53 08:02 Creatinine Estim Creat Clear Calc Estimated GFR POC Glucose 124 H 167 H 125 H 03/13/23 03/13/23 03/13/23 09:12 12:30 17:23 Creatinine 0.83 Estim Creat Clear Calc 101.7 Estimated GFR > 60 POC Glucose 133 H 132 H 03/13/23 03/14/23 03/14/23 20:52 07:44 11:09 Creatinine Estim Creat Clear Calc Estimated GFR POC Glucose 169 H 101 104 Medications Medications Current Medications Acetaminophen (Acetaminophen 325 Mg Tablet) 650 mg PO Q6H PRN PRN Reason: Headache/Pain Mild Scale (1-3) Last Admin: 03/11/23 15:30 Dose: 650 mg Al Hydroxide/Mg Hydroxide (Magnesium Hydrox/Alum Hydrox 30 Ml Oral.Susp) 30 ml PO Q6H PRN PRN Reason: Heartburn/Nausea Amlodipine Besylate (Amlodipine Besylate 10 Mg Tablet) 10 mg PO DAILY [facility]; Protocol Last Admin: 03/14/23 11:58 Dose: 10 mg Aripiprazole (Aripiprazole 5 Mg Tablet) 5 mg PO DAILY [facility] Last Admin: 03/14/23 11:58 Dose: 5 mg Bupropion HCl (Bupropion Hcl Xl 150 Mg Tab.Er.24h) 150 mg PO DAILY [facility] Last Admin: 03/14/23 11:58 Dose: 150 mg Bupropion HCl (Bupropion Hcl Xl 300 Mg Tab.Er.24h) 300 mg PO DAILY [facility] Last Admin: 03/14/23 11:58 Dose: 300 mg Duloxetine HCl (Duloxetine Hcl 30 Mg Capsule.Dr) 30 mg PO DAILY [facility] Last Admin: 03/14/23 11:57 Dose: 30 mg Hydralazine HCl (Hydralazine Hcl 25 Mg Tablet) 25 mg PO TID [facility]; Protocol Last Admin: 03/14/23 11:58 Dose: 25 mg Hydroxyzine HCl (Hydroxyzine Hcl 25 Mg Tablet) 25 mg PO Q6H PRN PRN Reason: Anxiety Last Admin: 03/13/23 21:47 Dose: 25 mg Insulin Human Lispro (Insulin Lispro 100 Unit/Ml 3 Ml Vial) 0 unit SUBCUT QIDACHS [facility]; Protocol Last Admin: 03/14/23 11:57 Dose: Not Given Magnesium Hydroxide (Milk Of Magnesia 30 Ml Oral.Susp) 30 ml PO DAILY PRN PRN Reason: Constipation Meclizine HCl (Meclizine Hcl 25 Mg Tablet) 25 mg PO Q6H PRN PRN Reason: dizziness Last Admin: 03/11/23 10:43 Dose: 25 mg Melatonin (Melatonin 3 Mg Tablet) 3 mg PO BEDTIME PRN PRN Reason: Insomnia Metformin HCl (Metformin Hcl Er 500 Mg Tab.Er.24h) 1,000 mg PO BID [facility] Last Admin: 03/14/23 11:58 Dose: 1,000 mg Nicotine (Nicotine 21 Mg Patch.Td24) 21 mg TRANSDERMA DAILY PRN PRN Reason: smoking cessation Nicotine Polacrilex (Nicotine Polacrilex 2 Mg Gum) 4 mg BUCCAL Q2H PRN PRN Reason: Nicotine Cravings Pt Own (Dulaglutide [Trulicity] 1.5 Mg/0 .5 Ml Pen Injector) 1.5 mg SUBCUT [facility] Last Admin: 03/07/23 18:06 Dose: 1.5 mg Sitagliptin Phosphate (Sitagliptin Phosphate 50 Mg Tablet) 50 mg PO DAILY [facility] Last Admin: 03/14/23 11:57 Dose: 50 mg Trazodone HCl (Trazodone Hcl 50 Mg Tablet) 50 mg PO BEDTIME MRX1 PRN PRN Reason: Insomnia Last Admin: 03/13/23 21:48 Dose: 50 mg Valsartan (Valsartan 160 Mg Tablet) 160 mg PO DAILY [facility]; Protocol Last Admin: 03/14/23 11:58 Dose: 160 mg Allergies Allergies Allergy/AdvReac Type Severity Reaction Status Date / Time codeine [CODEINE] Allergy Unknown delayed Verified 11/25/22 10:40 responses 02/24/17 Assessment & Plan Assessment & Plan (1) Recurrent major depression: Status: Acute Code(s): F33.9 - Major depressive disorder, recurrent, unspecified (2) Preop cardiovascular exam: Status: Acute Code(s): Z01.810 - Encounter for preprocedural cardiovascular examination Assessment and Plan: 57-year-old gentleman with left bundle-branch block, low normal ejection fraction on echocardiography and major depression. He has noncardiac chest pains. He is being considered for electroconvulsive therapy. He is i ntermediate risk for periprocedural complications and should proceed with it if felt to be beneficial per psychiatric evaluation. Continue same medications long. Noncardiac chest pain and does not any further testing for that. 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 Patient with a history of Major Depression, recurrent and several inpatient psychiatric hospitalizations, the last of which was last summer. He was brought to the ED by ambulance. He had been talking to his clipper and turner, Abigail Odonnell TRICK RODEO RIDER at [facility] and voiced SI and was making reference to his life insurance policy. This prompted her to call EMS and he was taken to the ED. He reports he had a plan of either hanging himself or cutting his wrist. 03/08:? Collaterals from .? Collateral with Abigail Odonnell re medication adjustments.? Consider ECT.? Psychoeducation given.? No medication changes for now. 03/09: Continue treatment plan. 03/10:? get clearance for ECT.? repeat EKG due to prolonged QTc.? was recently started on cymbalta 20 mg daily, not picked up from pharmacy.? will d/w patient starting or not the medication. 03/11:? cardiomyopathy with slightly reduced EF, no other medical concerns for ECT.? prolonged QTc, but with LBBB so corrected QT is 337.? start cymbalta 30 mg daily as initiated by outpt provider.? start meclizine PRN dizziness. 03/12: intermediate risk per cardiology. pt remains interested in pursuing ECT. consult placed for [facility]. continue current mgmt. 03/13: increase abilify to 5 mg daily for adjunctive anti-depressant effect. ECT #1 scheduled for tomorrow. 03/14: ECT #1 completed, uneventful. abilify dosing increased as of today. continue current mgmt. ECT #2 for next . Reason for continued inpatient stay Substantial Risk for: harm to self and inability to function Time Spent With Patient Time: Total time managing care of this patient today __25__ minutes.
[2023-03-14 17:51] LABS: Glucose, Whole Blood 138 mg/dL (60-115)
[2023-03-14 21:34] LABS: Glucose, Whole Blood 238 mg/dL (60-115)
[2023-03-14] MEDS: Insulin Lispro 100 UNIT/ML 3 ML VIAL SUBCUT (21:58)
[2023-03-14] MEDS: Melatonin 3 MG TABLET PO (22:04)
[2023-03-15 06:00] VITALS: BP 123/68; PULSE 86; RESP 16; TEMP 36.3; O2SAT 97
[2023-03-15] MEDS: ARIPiprazole 5 MG TABLET PO (09:08)
[2023-03-15] MEDS: metFORMIN HCl ER 500 MG TAB.ER.24H 1000 MG PO ×2 (09:08→21:58)
[2023-03-15] MEDS: Valsartan 160 MG TABLET PO (09:08)
[2023-03-15] MEDS: amLODIPine Besylate 10 MG TABLET PO (09:08)
[2023-03-15] MEDS: Acetaminophen 325 MG TABLET 650 MG PO (09:08)
[2023-03-15] MEDS: SITagliptin Phosphate 50 MG TABLET PO (09:08)
[2023-03-15] MEDS: hydrALAZINE HCl 25 MG TABLET PO ×3 (09:08→21:58)
[2023-03-15] MEDS: DULoxetine HCl 30 MG CAPSULE.DR PO (09:08)
[2023-03-15] MEDS: buPROPion HCl XL 150 MG TAB.ER.24H PO (09:09)
[2023-03-15] MEDS: buPROPion HCl XL 300 MG TAB.ER.24H PO (09:09)
--- NOTE | 2023-03-15 11:14 | P.PNPSI_ITS ---
Subjective Subjective Date of Service: 03/15/23 Reason For Visit: LBBB, pre ECT Subjective Notes: Conditional Voluntary Interim History: Patient was seen and discussed in rounds today. Records and plans were reviewed. He is undergoing ECT treatment with no complaints. No headaches. Continues to have anxiety and depression. Poor appetite. He is safe on the u nit. No AVH. Some suicidal ideations with no plans and is safe on the unit. No changes were made today Review of Systems Review of Systems Yes all other systems are reviewed and are negative Mental Status Exam Mental Status Exam Narrative: In today's visit he is alert, oriented and pleasant. Normal speech. Good eye contact. Appropriate affect. No signs of psychosis. No active SI. Cognitively intact. Judgment is intact Diagnostics Vital Signs (24Hr): Vital Signs - 24 hr 03/14/23 15:37 03/14/23 22:26 Temperature 97.3 F Pulse Rate 96 86 Respiratory Rate 18 Blood Pressure 120/62 123/62 Pulse Oximetry 97 Oxygen Delivery Method Room Air BMI result Body Mass Index 28.2 Labs 03/07/23 12:23 03/13/23 09:12 Labs: Laboratory Results - last 48 hr 03/13/23 03/13/23 03/13/23 12:30 17:23 20:52 POC Glucose 133 H 132 H 169 H 03/14/23 03/14/23 03/14/23 07:44 11:09 17:42 POC Glucose 101 104 138 H 03/14/23 21:29 POC Glucose 238 H Medications Medications Current Medications Acetaminophen (Acetaminophen 325 Mg Tablet) 650 mg PO Q6H PRN PRN Reason: Headache/Pain Mild Scale (1-3) Last Admin: 03/15/23 09:08 Dose: 650 mg Al Hydroxide/Mg Hydroxide (Magnesium Hydrox/Alum Hydrox 30 Ml Oral.Susp) 30 ml PO Q6H PRN PRN Reason: Heartburn/Nausea Amlodipine Besylate (Amlodipine Besylate 10 Mg Tablet) 10 mg PO DAILY [facility]; Protocol Last Admin: 03/15/23 09:08 Dose: 10 mg Aripiprazole (Aripiprazole 5 Mg Tablet) 5 mg PO DAILY [facility] Last Admin: 03/15/23 09:08 Dose: 5 mg Bupropion HCl (Bupropion Hcl Xl 150 Mg Tab.Er.24h) 150 mg PO DAILY [facility] Last Admin: 03/15/23 09:09 Dose: 150 mg Bupropion HCl (Bupropion Hcl Xl 300 Mg Tab.Er.24h) 300 mg PO DAILY [facility] Last Admin: 03/15/23 09:09 Dose: 300 mg Duloxetine HCl (Duloxetine Hcl 30 Mg Capsule.Dr) 30 mg PO DAILY [facility] Last Admin: 03/15/23 09:08 Dose: 30 mg Hydralazine HCl (Hydralazine Hcl 25 Mg Tablet) 25 mg PO TID [facility]; Protocol Last Admin: 03/15/23 09:08 Dose: 25 mg Hydroxyzine HCl (Hydroxyzine Hcl 25 Mg Tablet) 25 mg PO Q6H PRN PRN Reason: Anxiety Last Admin: 03/13/23 21:47 Dose: 25 mg Insulin Human Lispro (Insulin Lispro 100 Unit/Ml 3 Ml Vial) 0 unit SUBCUT QIDACHS [facility]; Protocol Last Admin: 03/15/23 08:34 Dose: Not Given Magnesium Hydroxide (Milk Of Magnesia 30 Ml Oral.Susp) 30 ml PO DAILY PRN PRN Reason: Constipation Meclizine HCl (Meclizine Hcl 25 Mg Tablet) 25 mg PO Q6H PRN PRN Reason: dizziness Last Admin: 03/11/23 10:43 Dose: 25 mg Melatonin (Melatonin 3 Mg Tablet) 3 mg PO BEDTIME PRN PRN Reason: Insomnia Last Admin: 03/14/23 22:04 Dose: 3 mg Metformin HCl (Metformin Hcl Er 500 Mg Tab.Er.24h) 1,000 mg PO BID [facility] Last Admin: 03/15/23 09:08 Dose: 1,000 mg Nicotine (Nicotine 21 Mg Patch.Td24) 21 mg TRANSDERMA DAILY PRN PRN Reason: smoking cessation Nicotine Polacrilex (Nicotine Polacrilex 2 Mg Gum) 4 mg BUCCAL Q2H PRN PRN Reason: Nicotine Cravings Pt Own (Dulaglutide [Trulicity] 1.5 Mg/0 .5 Ml Pen Injector) 1.5 mg SUBCUT Fr [facility] Last Admin: 03/07/23 18:06 Dose: 1.5 mg Sitagliptin Phosphate (Sitagliptin Phosphate 50 Mg Tablet) 50 mg PO DAILY [facility] Last Admin: 03/15/23 09:08 Dose: 50 mg Trazodone HCl (Trazodone Hcl 50 Mg Tablet) 50 mg PO BEDTIME MRX1 PRN PRN Reason: Insomnia Last Admin: 03/13/23 21:48 Dose: 50 mg Valsartan (Valsartan 160 Mg Tablet) 160 mg PO DAILY [facility]; Protocol Last Admin: 03/15/23 09:08 Dose: 160 mg Allergies Allergies Allergy/AdvReac Type Severity Reaction Status Date / Time codeine [CODEINE] Allergy Unknown delayed Verified 11/25/22 10:40 responses 02/24/17 Assessment & Plan Assessment & Plan (1) Recurrent major depression: Status: Acute Code(s): F33.9 - Major depressive disorder, recurrent, unspecified (2) Preop cardiovascular exam: Status: Acute Code(s): Z01.810 - Encounter for preprocedural cardiovascular examination Assessment and Plan: 57-year-old gentleman with left bundle-branch block, low normal ejection fractio n on echocardiography and major depression. He has noncardiac chest pains. He is being considered for electroconvulsive therapy. He is intermediate risk for periprocedural complications and should proceed with it if felt to be beneficial per psychiatric evaluation. Continue same medications long. Noncardiac chest pain and does not any further testing for that. 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 Patient with a history of Major Depression, recurrent and several inpatient psychiatric hospitalizations, the last of which was last summer. He was brought to the ED by ambulance. He had been talking to his fisheries technician, Abigail Odonnell SAFETY AND SECURITY MANAGER at [facility] and voiced SI and was making reference to his life insurance policy. This prompted her to call EMS and he was taken to the ED. He reports he had a plan of either hanging himself or cutting his wrist. 03/08:? Collaterals from .? Collateral with Abigail Odonnell re medication adjustments.? Consider ECT.? Psychoeducation given.? No medication changes for now. 03/09: Continue treatment plan. 03/10:? get clearance for ECT.? repeat EKG due to prolonged QTc.? was recently started on cymbalta 20 mg daily, not picked up from pharmacy.? will d/w patient starting or not the medication. 03/11:? cardiomyopathy with slightly reduced EF, no other medical concerns for ECT.? prolonged QTc, but with LBBB so corrected QT is 337.? start cymbalta 30 mg daily as initiated by outpt provider.? start meclizine PRN dizziness. 03/12: intermediate risk per cardiology. pt remains interested in pursuing ECT. consult placed for [facility]. continue current mgmt. 03/13: increase abilify to 5 mg daily for adjunctive anti-depressant effect. ECT #1 scheduled for tomorrow. 03/14: ECT #1 completed, uneventful. abilify dosing increased as of today. continue current mgmt. ECT #2 for next . 03/15: Continue current plans and regimen Reason for continued inpatient stay Substantial Risk for: rapid decompensation Time Spent With Patient Time: Total time managing care of this patient today ____ minutes.
[2023-03-15 12:49] LABS: Glucose, Whole Blood 97 mg/dL (60-115)
[2023-03-15] MEDS: PT OWN (Dulaglutide [Trulicity] 1.5 mg/0.5 mL pen injector) 1.5 EACH SUBCUT (19:32)
[2023-03-15 20:10] VITALS: BP 133/74; PULSE 100; RESP 18; TEMP 36.6; O2SAT 97
[2023-03-15] MEDS: Melatonin 3 MG TABLET PO (21:58)
[2023-03-16 08:32] VITALS: BP 126/67; PULSE 78; RESP 16; TEMP 36; O2SAT 98
[2023-03-16] MEDS: SITagliptin Phosphate 50 MG TABLET PO (08:33)
[2023-03-16] MEDS: hydrALAZINE HCl 25 MG TABLET PO ×3 (08:33→21:43)
[2023-03-16] MEDS: buPROPion HCl XL 300 MG TAB.ER.24H PO (08:33)
[2023-03-16] MEDS: DULoxetine HCl 30 MG CAPSULE.DR PO (08:33)
[2023-03-16] MEDS: amLODIPine Besylate 10 MG TABLET PO (08:33)
[2023-03-16] MEDS: Valsartan 160 MG TABLET PO (08:33)
[2023-03-16] MEDS: ARIPiprazole 5 MG TABLET PO (08:33)
[2023-03-16] MEDS: metFORMIN HCl ER 500 MG TAB.ER.24H 1000 MG PO ×2 (08:34→21:43)
[2023-03-16] MEDS: buPROPion HCl XL 150 MG TAB.ER.24H PO (08:34)
--- NOTE | 2023-03-16 09:20 | HO.PSYCHPN ---
Subjective Subjective Date of Service: 03/16/23 Reason For Visit: LBBB, pre ECT Subjective Notes: Conditional Voluntary Interim History: Patient was seen and discussed in rounds today. Records and plans were reviewed. He has been active. Not attending groups. Sleeping for 5 hours. He did receive his Trulicity yesterday which was brought in. He did not want to take any additional medications for sleep. Issues of guilt has been something that he is been dealing with. No other complaints. No changes were made today Medication Compliance: Intermittent Side effects from medications: No Attending Groups: No Review of Systems Review of Systems Yes all other systems are reviewed and are negative Mental Status Exam Mental Status Exam Narrative: In today's visit he is alert, oriented and pleasant. Normal speech. Good eye contact. Appropriate affect. No signs of psychosis. No active SI. Cognitively intact. Judgment is intact Diagnostics Vital Signs (24Hr): Vital Signs - 24 hr 03/15/23 20:10 03/16/23 08:32 Temperature 97.9 F 96.8 F Pulse Rate 100 78 Respiratory Rate 18 16 Blood Pressure 133/74 126/67 Pulse Oximetry 97 98 Oxygen Delivery Method Room Air Room Air BMI result Body Mass Index 28.2 Labs 03/07/23 12:23 03/13/23 09:12 Labs: Laboratory Results - last 48 hr 03/14/23 03/14/23 03/14/23 11:09 17:42 21:29 POC Glucose 104 138 H 238 H 03/15/23 12:40 POC Glucose 97 Medications Medications Current Medications Acetaminophen (Acetaminophen 325 Mg Tablet) 650 mg PO Q6H PRN PRN Reason: Headache/Pain Mild Scale (1-3) Last Admin: 03/15/23 09:08 Dose: 650 mg Al Hydroxide/Mg Hydroxide (Magnesium Hydrox/Alum Hydrox 30 Ml Oral.Susp) 30 ml PO Q6H PRN PRN Reason: Heartburn/Nausea Amlodipine Besylate (Amlodipine Besylate 10 Mg Tablet) 10 mg PO DAILY [facility]; Protocol Last Admin: 03/16/23 08:33 Dose: 10 mg Aripiprazole (Aripiprazole 5 Mg Tablet) 5 mg PO DAILY [facility] Last Admin: 03/16/23 08:33 Dose: 5 mg Bupropion HCl (Bupropion Hcl Xl 150 Mg Tab.Er.24h) 150 mg PO DAILY [facility] Last Admin: 03/16/23 08:34 Dose: 150 mg Bupropion HCl (Bupropion Hcl Xl 300 Mg Tab.Er.24h) 300 mg PO DAILY [facility] Last Admin: 03/16/23 08:33 Dose: 300 mg Duloxetine HCl (Duloxetine Hcl 30 Mg Capsule.Dr) 30 mg PO DAILY [facility] Last Admin: 03/16/23 08:33 Dose: 30 mg Hydralazine HCl (Hydralazine Hcl 25 Mg Tablet) 25 mg PO TID [facility]; Protocol Last Admin: 03/16/23 08:33 Dose: 25 mg Hydroxyzine HCl (Hydroxyzine Hcl 25 Mg Tablet) 25 mg PO Q6H PRN PRN Reason: Anxiety Last Admin: 03/13/23 21:47 Dose: 25 mg Insulin Human Lispro (Insulin Lispro 100 Unit/Ml 3 Ml Vial) 0 unit SUBCUT QIDACHS [facility]; Protocol Last Admin: 03/16/23 08:39 Dose: Not Given Magnesium Hydroxide (Milk Of Magnesia 30 Ml Oral.Susp) 30 ml PO DAILY PRN PRN Reason: Constipation Meclizine HCl (Meclizine Hcl 25 Mg Tablet) 25 mg PO Q6H PRN PRN Reason: dizziness Last Admin: 03/11/23 10:43 Dose: 25 mg Melatonin (Melatonin 3 Mg Tablet) 3 mg PO BEDTIME PRN PRN Reason: Insomnia Last Admin: 03/15/23 21:58 Dose: 3 mg Metformin HCl (Metformin Hcl Er 500 Mg Tab.Er.24h) 1,000 mg PO BID [facility] Last Admin: 03/16/23 08:34 Dose: 1,000 mg Nicotine (Nicotine 21 Mg Patch.Td24) 21 mg TRANSDERMA DAILY PRN PRN Reason: smoking cessation Nicotine Polacrilex (Nicotine Polacrilex 2 Mg Gum) 4 mg BUCCAL Q2H PRN PRN Reason: Nicotine Cravings Pt Own (Dulaglutide [Trulicity] 1.5 Mg/0 .5 Ml Pen Injector) 1.5 mg SUBCUT Fr [facility] Last Admin: 03/15/23 19:32 Dose: 1.5 mg Sitagliptin Phosphate (Sitagliptin Phosphate 50 Mg Tablet) 50 mg PO DAILY [facility] Last Admin: 03/16/23 08:33 Dose: 50 mg Trazodone HCl (Trazodone Hcl 50 Mg Tablet) 50 mg PO BEDTIME MRX1 PRN PRN Reason: Insomnia Last Admin: 03/13/23 21:48 Dose: 50 mg Valsartan (Valsartan 160 Mg Tablet) 160 mg PO DAILY [facility]; Protocol Last Admin: 03/16/23 08:33 Dose: 160 mg Allergies Allergies Allergy/AdvReac Type Severity Reaction Status Date / Time codeine [CODEINE] Allergy Unknown delayed Verified 11/25/22 10:40 responses 02/24/17 Assessment & Plan Assessment & Plan (1) Recurrent major depression: Status: Acute Code(s): F33.9 - Major depressive disorder, recurrent, unspecified (2) Preop cardiovascular exam: Status: Acute Code(s): Z01.810 - Encounter for preprocedural cardiovascular examination Assessment and Plan: 57-year-old gentleman with left bundle-branch block, low normal ejection fraction on echocardiography and major depression. He has noncardiac chest pains. He is being considered for electroconvulsive therapy. He is intermediate risk for periprocedural complications and should proceed with it if felt to be beneficial per psychiatric evaluation. Continue same medications long. Noncardiac chest pain and does not any further testing for that. 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 Patient with a history of Major Depression, recurrent and several inpatient psychiatric hospitalizations, the last of which was last summer. He was brought to the ED by ambulance. He had been talking to his home energy consultant, Abigail Odonnell IMPREGNATOR AND DRIER HELPER at [facility] and voiced SI and was making reference to his life insurance policy. This prompted her to call EMS and he was taken to the ED. He reports he had a plan of either hanging himself or cutting his wrist. 03/08:? Collaterals from .? Collateral with Abigail Odonnell re medication adjustments.? Consider ECT.? Psychoeducation given.? No medication changes for now. 03/09: Continue treatment plan. 03/10:? get clearance for ECT.? repeat EKG due to prolonged QTc.? was recently started on cymbalta 20 mg daily, not picked up from pharmacy.? will d/w patient starting or not the medication. 03/11:? cardiomyopathy with slightly reduced EF, no other medical concerns for ECT.? prolonged QTc, but with LBBB so corrected QT is 337.? start cymbalta 30 mg daily as initiated by outpt provider.? start meclizine PRN dizziness. 03/12: intermediate risk per cardiology. pt remains interested in pursuing ECT. consult placed for [facility]. continue current mgmt. 03/13: increase abilify to 5 mg daily for adjunctive anti-depressant effect. ECT #1 scheduled for tomorrow. 03/14: ECT #1 completed, uneventful. abilify dosing increased as of today. continue current mgmt. ECT #2 for next . 03/15: Continue current plans and regimen 03/16: Continue current plans and regimen Reason for continued inpatient stay Substantial Risk for: rapid decompensation Time Spent With Patient Time: Total time managing care of this patient today ____ minutes.
[2023-03-16] MEDS: hydrOXYzine HCL 25 MG TABLET PO (12:12)
[2023-03-16 12:43] LABS: Glucose, Whole Blood 87 mg/dL (60-115)
[2023-03-16 14:26] VITALS: BP 126/64; PULSE 98
[2023-03-16 17:19] LABS: Glucose, Whole Blood 137 mg/dL (60-115)
[2023-03-16 21:37] VITALS: BP 124/97; PULSE 71; TEMP 36.6; O2SAT 97
--- NOTE | 2023-03-16 21:38 | PC.NURSE ---
refused HS POC ''I don't need it''
[2023-03-16] MEDS: Melatonin 3 MG TABLET PO (21:43)
[2023-03-17] MEDS: hydrOXYzine HCL 25 MG TABLET PO (02:06)
[2023-03-17] MEDS: hydrALAZINE HCl 25 MG TABLET PO ×3 (09:09→21:46)
[2023-03-17] MEDS: Valsartan 160 MG TABLET PO (09:09)
[2023-03-17] MEDS: ARIPiprazole 5 MG TABLET PO (09:09)
[2023-03-17] MEDS: DULoxetine HCl 30 MG CAPSULE.DR PO (09:09)
[2023-03-17] MEDS: amLODIPine Besylate 10 MG TABLET PO (09:09)
[2023-03-17] MEDS: buPROPion HCl XL 150 MG TAB.ER.24H PO (09:09)
[2023-03-17] MEDS: metFORMIN HCl ER 500 MG TAB.ER.24H 1000 MG PO ×2 (09:09→21:46)
[2023-03-17] MEDS: SITagliptin Phosphate 50 MG TABLET PO (09:09)
[2023-03-17] MEDS: buPROPion HCl XL 300 MG TAB.ER.24H PO (09:09)
[2023-03-17 09:15] VITALS: BP 121/69; PULSE 87; RESP 16; TEMP 36.6; O2SAT 96
--- NOTE | 2023-03-17 10:54 | P.PNPSI_ITS ---
Subjective Subjective Date of Service: 03/17/23 Reason For Visit: LBBB, pre ECT Subjective Notes: Conditional Voluntary Interim History: Patient was seen and discussed in rounds today. Records and plans were reviewed. He continues to be doing better and has been stable. Eating and sleeping well. No groups attended. He has some racing thoughts still. Passive suicidal ideations and is safe on the unit. No changes were made today Medication Compliance: Intermittent Side effects from medications: No Attending Groups: No Review of Systems Review of Systems Yes all other systems are reviewed and are negative Mental Status Exam Mental Status Exam Narrative: In today's visit he is alert, oriented and pleasant. Normal speech. Good eye contact. Appropriate affect. No signs of psychosis. No active SI. Cognitively intact. Judgment is intact Diagnostics Vital Signs (24Hr): Vital Signs - 24 hr 03/16/23 14:26 03/16/23 21:37 03/17/23 09:15 Temperature 97.8 F 97.9 F Pulse Rate 98 71 87 Respiratory Rate 16 Blood Pressure 126/64 124/97 H 121/69 Pulse Oximetry 97 96 Oxygen Delivery Method Room Air Room Air BMI result Body Mass Index 28.2 Labs 03/07/23 12:23 03/13/23 09:12 Labs: Laboratory Results - last 48 hr 03/15/23 03/16/23 03/16/23 12:40 12:39 17:08 POC Glucose 97 87 137 H Medications Medications Current Medications Acetaminophen (Acetaminophen 325 Mg Tablet) 650 mg PO Q6H PRN PRN Reason: Headache/Pain Mild Scale (1-3) Last Admin: 03/15/23 09:08 Dose: 650 mg Al Hydroxide/Mg Hydroxide (Magnesium Hydrox/Alum Hydrox 30 Ml Oral.Susp) 30 ml PO Q6H PRN PRN Reason: Heartburn/Nausea Amlodipine Besylate (Amlodipine Besylate 10 Mg Tablet) 10 mg PO DAILY [facility]; Protocol Last Admin: 03/17/23 09:09 Dose: 10 mg Aripiprazole (Aripiprazole 5 Mg Tablet) 5 mg PO DAILY [facility] Last Admin: 03/17/23 09:09 Dose: 5 mg Bupropion HCl (Bupropion Hcl Xl 150 Mg Tab.Er.24h) 150 mg PO DAILY [facility] Last Admin: 03/17/23 09:09 Dose: 150 mg Bupropion HCl (Bupropion Hcl Xl 300 Mg Tab.Er.24h) 300 mg PO DAILY [facility] Last Admin: 03/17/23 09:09 Dose: 300 mg Duloxetine HCl (Duloxetine Hcl 30 Mg Capsule.Dr) 30 mg PO DAILY [facility] Last Admin: 03/17/23 09:09 Dose: 30 mg Hydralazine HCl (Hydralazine Hcl 25 Mg Tablet) 25 mg PO TID [facility]; Protocol Last Admin: 03/17/23 09:09 Dose: 25 mg Hydroxyzine HCl (Hydroxyzine Hcl 25 Mg Tablet) 25 mg PO Q6H PRN PRN Reason: Anxiety Last Admin: 03/17/23 02:06 Dose: 25 mg Insulin Human Lispro (Insulin Lispro 100 Unit/Ml 3 Ml Vial) 0 unit SUBCUT QIDACHS [facility]; Protocol Last Admin: 03/17/23 09:11 Dose: Not Given Magnesium Hydroxide (Milk Of Magnesia 30 Ml Oral.Susp) 30 ml PO DAILY PRN PRN Reason: Constipation Meclizine HCl (Meclizine Hcl 25 Mg Tablet) 25 mg PO Q6H PRN PRN Reason: dizziness Last Admin: 03/11/23 10:43 Dose: 25 mg Melatonin (Melatonin 3 Mg Tablet) 3 mg PO BEDTIME PRN PRN Reason: Insomnia Last Admin: 03/16/23 21:43 Dose: 3 mg Metformin HCl (Metformin Hcl Er 500 Mg Tab.Er.24h) 1,000 mg PO BID [facility] Last Admin: 03/17/23 09:09 Dose: 1,000 mg Nicotine (Nicotine 21 Mg Patch.Td24) 21 mg TRANSDERMA DAILY PRN PRN Reason: smoking cessation Nicotine Polacrilex (Nicotine Polacrilex 2 Mg Gum) 4 mg BUCCAL Q2H PRN PRN Reason: Nicotine Cravings Pt Own (Dulaglutide [Trulicity] 1.5 Mg/0 .5 Ml Pen Injector) 1.5 mg SUBCUT Fr [facility] Last Admin: 03/15/23 19:32 Dose: 1.5 mg Sitagliptin Phosphate (Sitagliptin Phosphate 50 Mg Tablet) 50 mg PO DAILY [facility] Last Admin: 03/17/23 09:09 Dose: 50 mg Trazodone HCl (Trazodone Hcl 50 Mg Tablet) 50 mg PO BEDTIME MRX1 PRN PRN Reason: Insomnia Last Admin: 03/13/23 21:48 Dose: 50 mg Valsartan (Valsartan 160 Mg Tablet) 160 mg PO DAILY [facility]; Protocol Last Admin: 03/17/23 09:09 Dose: 160 mg Allergies Allergies Allergy/AdvReac Type Severity Reaction Status Date / Time codeine [CODEINE] Allergy Unknown delayed Verified 11/25/22 10:40 responses 02/24/17 Assessment & Plan Assessment & Plan (1) Recurrent major depression: Status: Acute Code(s): F33.9 - Major depressive disorder, recurrent, unspecified (2) Preop cardiovascular exam: Status: Acute Code(s): Z01.810 - Encounter for preprocedural cardiovascular examination Assessment and Plan: 57-year-old gentleman with left bundle-branch block, low normal ejection fraction on echocardiography and major depression. He has noncardiac chest pains. He is being considered for electroconvulsive therapy. He is intermediate risk for periprocedural complications and should proceed with it if felt to be beneficial per psychiatric evaluation. Continue same medications long. Noncardiac chest pain and does not any further testing for that. 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 Patient with a history of Major Depression, recurrent and several inpatient psychiatric hospitalizations, the last of which was last summer. He was brought to the ED by ambulance. He had been talking to his habitat conservation planner, Abigail Odonnell ADULT CARE MANAGER at [facility] and voiced SI and was making reference to his life insurance policy. This prompted her to call EMS and he was taken to the ED. He reports he had a plan of either hanging himself or cutting his wrist. 03/08:? Collaterals from .? Collateral with Abigail atkinson medication adjustments.? Consider ECT.? Psychoeducation given.? No medication changes for now. 03/09: Continue treatment plan. 03/10:? get clearance for ECT.? repeat EKG due to prolonged QTc.? was recently s tarted on cymbalta 20 mg daily, not picked up from pharmacy.? will d/w patient starting or not the medication. 03/11:? cardiomyopathy with slightly reduced EF, no other medical concerns for ECT.? prolonged QTc, but with LBBB so corrected QT is 337.? start cymbalta 30 mg daily as initiated by outpt provider.? start meclizine PRN dizziness. 03/12: intermediate risk per cardiology. pt remains interested in pursuing ECT. consult placed for [facility]. continue current mgmt. 03/13: increase abilify to 5 mg daily for adjunctive anti-depressant effect. ECT #1 scheduled for tomorrow. 03/14: ECT #1 completed, uneventful. abilify dosing increased as of today. continue current mgmt. ECT #2 for next . 03/15: Continue current plans and regimen 03/16: Continue current plans and regimen Reason for continued inpatient stay Substantial Risk for: rapid decompensation Time Spent With Patient Time: Total time managing care of this patient today ____ minutes.
[2023-03-17 12:42] LABS: Glucose, Whole Blood 83 mg/dL (60-115)
[2023-03-17 17:32] LABS: Glucose, Whole Blood 159 mg/dL (60-115)
[2023-03-17 19:55] VITALS: BP 151/76; PULSE 93; RESP 18; TEMP 36.1; O2SAT 98
[2023-03-17 20:16] LABS: Glucose, Whole Blood 133 mg/dL (60-115)
[2023-03-17] MEDS: Melatonin 3 MG TABLET PO (21:47)
[2023-03-18] MEDS: traZODone HCL 50 MG TABLET PO (00:53)
[2023-03-18] MEDS: hydrOXYzine HCL 25 MG TABLET PO (00:53)
[2023-03-18 06:00] VITALS: BP 118/68; PULSE 96; O2SAT 96
[2023-03-18] MEDS: buPROPion HCl XL 150 MG TAB.ER.24H PO (10:02)
[2023-03-18] MEDS: SITagliptin Phosphate 50 MG TABLET PO (10:02)
[2023-03-18] MEDS: buPROPion HCl XL 300 MG TAB.ER.24H PO (10:03)
[2023-03-18] MEDS: Valsartan 160 MG TABLET PO (10:03)
[2023-03-18] MEDS: metFORMIN HCl ER 500 MG TAB.ER.24H 1000 MG PO ×2 (10:03→21:37)
[2023-03-18] MEDS: DULoxetine HCl 30 MG CAPSULE.DR PO (10:03)
[2023-03-18] MEDS: ARIPiprazole 5 MG TABLET PO ×2 (10:03→21:37)
[2023-03-18] MEDS: hydrALAZINE HCl 25 MG TABLET PO ×3 (10:03→21:38)
[2023-03-18] MEDS: amLODIPine Besylate 10 MG TABLET PO (10:04)
[2023-03-18 12:27] LABS: Glucose, Whole Blood 221 mg/dL (60-115)
[2023-03-18] MEDS: Insulin Lispro 100 UNIT/ML 3 ML VIAL SUBCUT (12:55)
[2023-03-18 14:21] VITALS: BP 107/59; PULSE 97
--- NOTE | 2023-03-18 15:54 | HO.PSYCHPN ---
Subjective Subjective Date of Service: 03/18/23 Reason For Visit: LBBB, pre ECT Interim History: calm, cooperative. flat affect. reports poor sleep overnight. feeling a little better. states he is feeling hung over from the trazodone. asks to DC trazodone and increase melatonin. also agrees to trial of remeron. per staff, anxious and depressed. worried about harming himself once he leaves here. lots of PRNs for sleep. wants more melatonin. Mental Status Exam Mental Status Exam Narrative: calm cooperative. appropriately dressed and groomed. slight PMR. speech decr in rate, decr amount, nml loudness, flattened tone, slightly incr latency. thoughts linear and logical. affect flat, consistent with context, hypo-intense, non-labile. mood a little better. no SI/SIBI/HI/AVH expressed. Diagnostics Vital Signs (24Hr): Vital Signs - 24 hr 03/17/23 19:55 03/18/23 06:00 03/18/23 14:21 Temperature 96.9 F Pulse Rate 93 96 97 Respiratory Rate 18 Blood Pressure 151/76 H 118/68 107/59 L Pulse Oximetry 98 96 Oxygen Delivery Method Room Air Room Air BMI result Body Mass Index 28.2 Labs 03/07/23 12:23 03/13/23 09:12 Labs: Laboratory Results - last 48 hr 03/16/23 03/17/23 03/17/23 17:08 12:34 17:27 POC Glucose 137 H 83 159 H 03/17/23 03/18/23 20:09 12:23 POC Glucose 133 H 221 H Medications Medications Current Medications Acetaminophen (Acetaminophen 325 Mg Tablet) 650 mg PO Q6H PRN PRN Reason: Headache/Pain Mild Scale (1-3) Last Admin: 03/15/23 09:08 Dose: 650 mg Al Hydroxide/Mg Hydroxide (Magnesium Hydrox/Alum Hydrox 30 Ml Oral.Susp) 30 ml PO Q6H PRN PRN Reason: Heartburn/Nausea Amlodipine Besylate (Amlodipine Besylate 10 Mg Tablet) 10 mg PO DAILY [facility]; Protocol Last Admin: 03/18/23 10:04 Dose: 10 mg Aripiprazole (Aripiprazole 5 Mg Tablet) 5 mg PO BEDTIME [facility] Bupropion HCl (Bupropion Hcl Xl 150 Mg Tab.Er.24h) 150 mg PO DAILY [facility] Last Admin: 03/18/23 10:02 Dose: 150 mg Bupropion HCl (Bupropion Hcl Xl 300 Mg Tab.Er.24h) 300 mg PO DAILY [facility] Last Admin: 03/18/23 10:03 Dose: 300 mg Duloxetine HCl (Duloxetine Hcl 30 Mg Capsule.Dr) 30 mg PO DAILY [facility] Last Admin: 03/18/23 10:03 Dose: 30 mg Hydralazine HCl (Hydralazine Hcl 25 Mg Tablet) 25 mg PO TID [facility]; Protocol Last Admin: 03/18/23 14:21 Dose: 25 mg Hydroxyzine HCl (Hydroxyzine Hcl 25 Mg Tablet) 25 mg PO Q6H PRN PRN Reason: Anxiety Last Admin: 03/18/23 00:53 Dose: 25 mg Insulin Human Lispro (Insulin Lispro 100 Unit/Ml 3 Ml Vial) 0 unit SUBCUT QIDACHS [facility]; Protocol Last Admin: 03/18/23 12:55 Dose: 4 unit Magnesium Hydroxide (Milk Of Magnesia 30 Ml Oral.Susp) 30 ml PO DAILY PRN PRN Reason: Constipation Meclizine HCl (Meclizine Hcl 25 Mg Tablet) 25 mg PO Q6H PRN PRN Reason: dizziness Last Admin: 03/11/23 10:43 Dose: 25 mg Melatonin (Melatonin 3 Mg Tablet) 6 mg PO BEDTIME PRN PRN Reason: Insomnia Metformin HCl (Metformin Hcl Er 500 Mg Tab.Er.24h) 1,000 mg PO BID [facility] Last Admin: 03/18/23 10:03 Dose: 1,000 mg Mirtazapine (Mirtazapine 15 Mg Tablet) 15 mg PO BEDTIME [facility] Nicotine (Nicotine 21 Mg Patch.Td24) 21 mg TRANSDERMA DAILY PRN PRN Reason: smoking cessation Nicotine Polacrilex (Nicotine Polacrilex 2 Mg Gum) 4 mg BUCCAL Q2H PRN PRN Reason: Nicotine Cravings Pt Own (Dulaglutide [Trulicity] 1.5 Mg/0 .5 Ml Pen Injector) 1.5 mg SUBCUT Fr [facility] Last Admin: 03/15/23 19:32 Dose: 1.5 mg Sitagliptin Phosphate (Sitagliptin Phosphate 50 Mg Tablet) 50 mg PO DAILY [facility] Last Admin: 03/18/23 10:02 Dose: 50 mg Valsartan (Valsartan 160 Mg Tablet) 160 mg PO DAILY [facility]; Protocol Last Admin: 03/18/23 10:03 Dose: 160 mg Allergies Allergies Allergy/AdvReac Type Severity Reaction Status Date / Time codeine [CODEINE] Allergy Unknown delayed Verified 11/25/22 10:40 responses 02/24/17 Assessment & Plan Assessment & Plan (1) Major depressive disorder, recurrent severe without psychotic features: Status: Acute Code(s): F33.2 - Major depressive disorder, recurrent severe without psychotic features Plan 57 year old man who lives in [place] and 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 Patient with a history of Major Depression, recurrent and several inpatient psychiatric hospitalizations, the last of which was last summer. He was brought to the ED by ambulance. He had been talking to his barrel bridge assembler, Abigail Odonnell NEUROPSYCHIATRIST at [facility] and voiced SI and was making reference to his life insurance policy. This prompted her to call EMS and he was taken to the ED. He reports he had a plan of either hanging himself or cutting his wrist. 03/08:? Collaterals from .? Collateral with Abigail Odonnell re medication adjustments.? Consider ECT.? Psychoeducation given.? No medication changes for now. 03/09: Continue treatment plan. 03/10:? get clearance for ECT.? repeat EKG due to prolonged QTc.? was recently started on cymbalta 20 mg daily, not picked up from pharmacy.? will d/w patient starting or not the medication. 03/11:? cardiomyopathy with slightly reduced EF, no other medical concerns for ECT.? prolonged QTc, but with LBBB so corrected QT is 337.? start cymbalta 30 mg daily as initiated by outpt provider.? start meclizine PRN dizziness. 03/12:? intermediate risk per cardiology.? pt remains interested in pursuing ECT.? consult placed for [facility].? continue current mgmt. 03/13:? increase abilify to 5 mg daily for adjunctive anti-depressant effect.? ECT #1 scheduled for tomorrow. 03/14:? ECT #1 completed, uneventful.? abilify dosing increased as of today.? continue current mgmt. ? ECT #2 for next . 03/15: Continue current plans and regimen 03/16: Continue current plans and regimen 03/18: ECT #2 for tomorrow. remains dysphoric, expressing safety concerns to staff. DC trazodone. start remeron 15. incr melatonin to 6. Reason for continued inpatient stay Substantial Risk for: harm to self, inability to function and rapid decompensation Time Spent With Patient Time: Total time managing care of this patient today __25__ minutes.
[2023-03-18 17:24] LABS: Glucose, Whole Blood 118 mg/dL (60-115)
[2023-03-18 20:00] VITALS: BP 124/74; PULSE 78; RESP 18; TEMP 36.6; O2SAT 98
[2023-03-18] MEDS: Mirtazapine 15 MG TABLET PO (21:37)
[2023-03-18] MEDS: Melatonin 3 MG TABLET 6 MG PO (21:44)
[2023-03-19] VITALS (11 sets, daily range): BP systolic 130–165; BP diastolic 65–91; PULSE 83–100; RESP 16–24; TEMP 36.1–36.7; O2SAT 94–98
[2023-03-19] MEDS: Acetaminophen 325 MG TABLET 650 MG PO (01:14)
[2023-03-19 06:26] LABS: Glucose, Whole Blood 108 mg/dL (60-115)
--- NOTE | 2023-03-19 07:02 | P.CONAN_ITS ---
[facility] Active Problems Active Problems: All Active Problems (Updated 03/17/23 @ 12:19 by Stone Anders MD) Major depressive disorder, recurrent severe without psychotic features (Acute) Preop cardiovascular exam (Acute) Recurrent major depression (Acute) Persistent depressive disorder (Acute) Depression (Acute) Suicidal ideation (Acute) ILD (interstitial lung disease) (Acute) Persistent cough (Acute) Acute respiratory failure with hypoxia (Acute) Community acquired pneumonia (Acute) Heart disease, unspecified (Acute) Dizziness (Acute) Past Medical History Medical History (Updated 03/17/23 @ 12:19 by Stone Anders MD) Depression Diabetic foot ulcer HTN (hypertension) ILD (interstitial lung disease) LBBB (left bundle branch block) Major depressive disorder, recurrent severe without psychotic features Osteomyelitis Preop cardiovascular exam Suicidal ideation Type 2 diabetes mellitus with foot ulcer Family History Family History Father Neck malignant neoplasm Family history of problems with anesthesia: No Surgical History Surgical History H/O: vasectomy History of Problems with Anesthesia: No Social History Social History Household Members: Family Housing: House Do you presently have visiting nurse or other home services: No Alcohol intake: current Alcohol intake frequency: a few times a month Patient Tobacco Use Status: Never used Tobacco Smoked in Last 30 Days: No e-Cigarette/Vaping Use: Never Used Patient Interested in Nicotine Replacement: No Patient Given Instructions on How to Stop Smoking: No Second Hand Smoke Exposure: No Use of substances other than those prescribed or required for medical reasons: No Substance Use Type: Marijuana Currently Displaying Signs/Symptoms of Drug Intoxication Withdrawal: No Any prior treatment program specific to substance use: No Have you been hit, kicked, punched, or otherwise hurt by someone within the past year? If so, by whom?: No Do you feel safe in your current relationship?: Yes Is there a partner from a previous relationship who is making you feel unsafe now?: No Are you made to feel afraid or neglected: No Are you DNR?: No Advance Directives: Yes Advance Directives Information Provided: Yes Advance Directives on File: No Advance Directives Date on File: 04/11/22 Healthcare Proxy: No Guardian: No Do you have thoughts of harming others: None Do you have a plan to hurt others: No Plan Recently lost weight without trying: No Eating poorly because of decreased appetite: No Nutrition Risks: No Nutritional Risk Poor oral hygiene: No service: No Current occupational status: employed Sexual orientation: Straight/Heterosexual Meds Allergies Allergy/AdvReac Type Severity Reaction Status Date / Time codeine [CODEINE] Allergy Unknown delayed Verified 11/25/22 10:40 responses 02/24/17 Active Medications: Current Medications Acetaminophen (Acetaminophen 325 Mg Tablet) 650 mg PO Q6H PRN PRN Reason: Headache/Pain Mild Scale (1-3) Last Admin: 03/19/23 01:14 Dose: 650 mg Al Hydroxide/Mg Hydroxide (Magnesium Hydrox/Alum Hydrox 30 Ml Oral.Susp) 30 ml PO Q6H PRN PRN Reason: Heartburn/Nausea Amlodipine Besylate (Amlodipine Besylate 10 Mg Tablet) 10 mg PO DAILY [facility]; Protocol Last Admin: 03/18/23 10:04 Dose: 10 mg Aripiprazole (Aripiprazole 5 Mg Tablet) 5 mg PO BEDTIME MICHELLE Last Admin: 03/18/23 21:37 Dose: 5 mg Bupropion HCl (Bupropion Hcl Xl 150 Mg Tab.Er.24h) 150 mg PO DAILY MICHELLE Last Admin: 03/18/23 10:02 Dose: 150 mg Bupropion HCl (Bupropion Hcl Xl 300 Mg Tab.Er.24h) 300 mg PO DAILY MICHELLE Last Admin: 03/18/23 10:03 Dose: 300 mg Duloxetine HCl (Duloxetine Hcl 30 Mg Capsule.Dr) 30 mg PO DAILY MICHELLE Last Admin: 03/18/23 10:03 Dose: 30 mg Hydralazine HCl (Hydralazine Hcl 25 Mg Tablet) 25 mg PO TID MICHELLE; Protocol Last Admin: 03/18/23 21:38 Dose: 25 mg Hydroxyzine HCl (Hydroxyzine Hcl 25 Mg Tablet) 25 mg PO Q6H PRN PRN Reason: Anxiety Last Admin: 03/18/23 00:53 Dose: 25 mg Lactated Ringer's (Lr) 1,000 mls @ 50 mls/hr IVCONT .Q20H [facility] Insulin Human Lispro (Insulin Lispro 100 Unit/Ml 3 Ml Vial) 0 unit SUBCUT QIDACHS MICHELLE; Protocol Last Admin: 03/19/23 01:16 Dose: Not Given Magnesium Hydroxide (Milk Of Magnesia 30 Ml Oral.Susp) 30 ml PO DAILY PRN PRN Reason: Constipation Meclizine HCl (Meclizine Hcl 25 Mg Tablet) 25 mg PO Q6H PRN PRN Reason: dizziness Last Admin: 03/11/23 10:43 Dose: 25 mg Melatonin (Melatonin 3 Mg Tablet) 6 mg PO BEDTIME PRN PRN Reason: Insomnia Last Admin: 03/18/23 21:44 Dose: 6 mg Metformin HCl (Metformin Hcl Er 500 Mg Tab.Er.24h) 1,000 mg PO BID [facility] Last Admin: 03/18/23 21:37 Dose: 1,000 mg Mirtazapine (Mirtazapine 15 Mg Tablet) 15 mg PO BEDTIME [facility] Last Admin: 03/18/23 21:37 Dose: 15 mg Nicotine (Nicotine 21 Mg Patch.Td24) 21 mg TRANSDERMA DAILY PRN PRN Reason: smoking cessation Nicotine Polacrilex (Nicotine Polacrilex 2 Mg Gum) 4 mg BUCCAL Q2H PRN PRN Reason: Nicotine Cravings Pt Own (Dulaglutide [Trulicity] 1.5 Mg/0 .5 Ml Pen Injector) 1.5 mg SUBCUT [facility] Last Admin: 03/15/23 19:32 Dose: 1.5 mg Sitagliptin Phosphate (Sitagliptin Phosphate 50 Mg Tablet) 50 mg PO DAILY [facility] Last Admin: 03/18/23 10:02 Dose: 50 mg Valsartan (Valsartan 160 Mg Tablet) 160 mg PO DAILY [facility]; Protocol Last Admin: 03/18/23 10:03 Dose: 160 mg Home Medications Medication Instructions Recorded Confirmed Last Taken Type metformin 1,000 mg tablet,extended 1,000 mg PO BID 11/15/22 03/07/23 11/15/22 History release 24hr sitagliptin phosphate 50 mg tablet 50 mg PO DAILY 11/15/22 03/07/23 11/15/22 History (Januvia) valsartan 160 mg tablet 160 mg PO DAILY 11/15/22 03/07/23 11/15/22 History dulaglutide 1.5 mg/0.5 mL 1.5 mg subcut QWEEK 03/07/23 03/07/23 Unknown History subcutaneous pen injector (Trulicity) Exam Exam Date and Time: March 19, 2023 0702 Height,Weight and Vital Signs: Height 5 ft 8 in Weight 84.27 kg Last Vital Signs Temp 97 F 03/19/23 06:27 Pulse 87 03/19/23 06:27 Resp 16 03/19/23 06:27 BP 137/79 03/19/23 06:27 Pulse Ox 94 03/19/23 06:27 O2 Del Method Room Air 03/19/23 06:27 O2 Flow Rate 1 03/14/23 10:38 Pertinent Lab Results Pertinent Lab Results: Laboratory Tests 03/07/23 03/07/23 03/07/23 12:14 12:14 12:17 WBC RBC Hgb Hct MCV MCH MCHC RDW Plt Count MPV Immature Gran % (Auto) Neut % (Auto) Lymph % (Auto) [place] % (Auto) Eos % (Auto) Baso % (Auto) Lymph # (Auto) [place] # (Auto) Eos # (Auto) Baso # (Auto) Abs Immat Gran (auto) Absolute Neuts (auto) Absolute Nucleated RBC Nucleated RBC % (auto) Sodium Potassium Chloride Carbon Dioxide Anion Gap BUN Creatinine Estim Creat Clear Calc Estimated GFR POC Glucose 296 H Random Glucose Calcium Magnesium Total Bilirubin AST ALT Alkaline Phosphatase Total Protein Albumin Urine Color Yellow Urine Appearance Clear Urine pH 5.5 Ur Specific [place] 1.015 Urine Protein Negative Urine Glucose (UA) >=1000 H Urine Ketones Negative Urine Blood Negative Urine Nitrite Negative Ur Leukocyte Esterase Negative Urine RBC 0-2 Urine WBC 0-5 Ur Squamous Epith Cells 0-2 Urine Bacteria None Seen Hyaline Casts 0-2 Salicylates Urine Opiates Screen Not Detected Urine Fentanyl Screen Not Detected Acetaminophen Ur Barbiturates Screen Not Detected Ur Phencyclidine Scrn Not Detected Ur Amphetamines Screen Not Detected U Benzodiazepines Scrn Not Detected Urine Cocaine Screen Not Detected U Marijuana (THC) Screen Not Detected Ethyl Alcohol COVID-19 (FERN) COVID-19 Clin Com 03/07/23 03/07/23 03/07/23 12:23 12:23 12:23 WBC 5.7 RBC 5.30 Hgb 15.0 Hct 46.2 MCV 87.2 MCH 28.3 MCHC 32.5 RDW 13.5 Plt Count 214 D MPV 9.9 Immature Gran % (Auto) 0.2 Neut % (Auto) 57.7 Lymph % (Auto) 26.6 [place] % (Auto) 8.8 Eos % (Auto) 5.6 H Baso % (Auto) 1.1 Lymph # (Auto) 1.5 [place] # (Auto) 0.5 Eos # (Auto) 0.3 Baso # (Auto) 0.1 Abs Immat Gran (auto) 0.01 Absolute Neuts (auto) 3.3 Absolute Nucleated RBC 0.000 Nucleated RBC % (auto) 0.0 Sodium 142 Potassium 4.4 Chloride 106 Carbon Dioxide 27 Anion Gap 13 BUN 19 H Creatinine 1.06 Estim Creat Clear Calc 80.1 Estimated GFR > 60 POC Glucose Random Glucose 304 H Calcium 9.9 D Magnesium 2.0 Total Bilirubin 0.6 AST 19 ALT 14 Alkaline Phosphatase 82 Total Protein 7.1 Albumin 4.1 Urine Color Urine Appearance Urine pH Ur Specific [place] Urine Protein Urine Glucose (UA) Urine Ketones Urine Blood Urine Nitrite Ur Leukocyte Esterase Urine RBC Urine WBC Ur Squamous Epith Cells Urine Bacteria Hyaline Casts Salicylates < 5.0 L Urine Opiates Screen Urine Fentanyl Screen Acetaminophen < 17 Ur Barbiturates Screen Ur Phencyclidine Scrn Ur Amphetamines Screen U Benzodiazepines Scrn Urine Cocaine Screen U Marijuana (THC) Screen Ethyl Alcohol < 10 COVID-19 (FERN) COVID-19 Clin Com 03/07/23 03/07/23 03/07/23 14:44 17:56 21:46 WBC RBC Hgb Hct MCV MCH MCHC RDW Plt Count MPV Immature Gran % (Auto) Neut % (Auto) Lymph % (Auto) [place] % (Auto) Eos % (Auto) Baso % (Auto) Lymph # (Auto) [place] # (Auto) Eos # (Auto) Baso # (Auto) Abs Immat Gran (auto) Absolute Neuts (auto) Absolute Nucleated RBC Nucleated RBC % (auto) Sodium Potassium Chloride Carbon Dioxide Anion Gap BUN Creatinine Estim Creat Clear Calc Estimated GFR POC Glucose 297 H 320 H Random Glucose Calcium Magnesium Total Bilirubin AST ALT Alkaline Phosphatase Total Protein Albumin Urine Color Urine Appearance Urine pH Ur Specific [place] Urine Protein Urine Glucose (UA) Urine Ketones Urine Blood Urine Nitrite Ur Leukocyte Esterase Urine RBC Urine WBC Ur Squamous Epith Cells Urine Bacteria Hyaline Casts Salicylates Urine Opiates Screen Urine Fentanyl Screen Acetaminophen Ur Barbiturates Screen Ur Phencyclidine Scrn Ur Amphetamines Screen U Benzodiazepines Scrn Urine Cocaine Screen U Marijuana (THC) Screen Ethyl Alcohol COVID-19 (FERN) Negative COVID-19 [employer] See Note 03/08/23 03/08/23 03/08/23 08:15 12:12 17:35 WBC RBC Hgb Hct MCV MCH MCHC RDW Plt Count MPV Immature Gran % (Auto) Neut % (Auto) Lymph % (Auto) [place] % (Auto) Eos % (Auto) Baso % (Auto) Lymph # (Auto) [place] # (Auto) Eos # (Auto) Baso # (Auto) Abs Immat Gran (auto) Absolute Neuts (auto) Absolute Nucleated RBC Nucleated RBC % (auto) Sodium Potassium Chloride Carbon Dioxide Anion Gap BUN Creatinine Estim Creat Clear Calc Estimated GFR POC Glucose 144 H 149 H 192 H Random Glucose Calcium Magnesium Total Bilirubin AST ALT Alkaline Phosphatase Total Protein Albumin Urine Color Urine Appearance Urine pH Ur Specific [place] Urine Protein Urine Glucose (UA) Urine Ketones Urine Blood Urine Nitrite Ur Leukocyte Esterase Urine RBC Urine WBC Ur Squamous Epith Cells Urine Bacteria Hyaline Casts Salicylates Urine Opiates Screen Urine Fentanyl Screen Acetaminophen Ur Barbiturates Screen Ur Phencyclidine Scrn Ur Amphetamines Screen U Benzodiazepines Scrn Urine Cocaine Screen U Marijuana (THC) Screen Ethyl Alcohol COVID-19 (FERN) COVID-[employer] 03/08/23 03/09/23 03/09/23 20:09 08:59 12:35 WBC RBC Hgb Hct MCV MCH MCHC RDW Plt Count MPV Immature Gran % (Auto) Neut % (Auto) Lymph % (Auto) [place] % (Auto) Eos % (Auto) Baso % (Auto) Lymph # (Auto) [place] # (Auto) Eos # (Auto) Baso # (Auto) Abs Immat Gran (auto) Absolute Neuts (auto) Absolute Nucleated RBC Nucleated RBC % (auto) Sodium Potassium Chloride Carbon Dioxide Anion Gap BUN Creatinine Estim Creat Clear Calc Estimated GFR POC Glucose 258 H 220 H 100 Random Glucose Calcium Magnesium Total Bilirubin AST ALT Alkaline Phosphatase Total Protein Albumin Urine Color Urine Appearance Urine pH Ur Specific [place] Urine Protein Urine Glucose (UA) Urine Ketones Urine Blood Urine Nitrite Ur Leukocyte Esterase Urine RBC Urine WBC Ur Squamous Epith Cells Urine Bacteria Hyaline Casts Salicylates Urine Opiates Screen Urine Fentanyl Screen Acetaminophen Ur Barbiturates Screen Ur Phencyclidine Scrn Ur Amphetamines Screen U Benzodiazepines Scrn Urine Cocaine Screen U Marijuana (THC) Screen Ethyl Alcohol COVID-19 (FERN) COVID-19 [employer] 03/09/23 03/09/23 03/10/23 17:42 21:14 07:54 WBC RBC Hgb Hct MCV MCH MCHC RDW Plt Count MPV Immature Gran % (Auto) Neut % (Auto) Lymph % (Auto) [place] % (Auto) Eos % (Auto) Baso % (Auto) Lymph # (Auto) [place] # (Auto) Eos # (Auto) Baso # (Auto) Abs Immat Gran (auto) Absolute Neuts (auto) Absolute Nucleated RBC Nucleated RBC % (auto) Sodium Potassium Chloride Carbon Dioxide Anion Gap BUN Creatinine Estim Creat Clear Calc Estimated GFR POC Glucose 131 H 187 H 181 H Random Glucose Calcium Magnesium Total Bilirubin AST ALT Alkaline Phosphatase Total Protein Albumin Urine Color Urine Appearance Urine pH Ur Specific [place] Urine Protein Urine Glucose (UA) Urine Ketones Urine Blood Urine Nitrite Ur Leukocyte Esterase Urine RBC Urine WBC Ur Squamous Epith Cells Urine Bacteria Hyaline Casts Salicylates Urine Opiates Screen Urine Fentanyl Screen Acetaminophen Ur Barbiturates Screen Ur Phencyclidine Scrn Ur Amphetamines Screen U Benzodiazepines Scrn Urine Cocaine Screen U Marijuana (THC) Screen Ethyl Alcohol COVID-19 (FERN) COVID-[employer] 03/10/23 03/10/23 03/10/23 12:59 17:43 22:08 WBC RBC Hgb Hct MCV MCH MCHC RDW Plt Count MPV Immature Gran % (Auto) Neut % (Auto) Lymph % (Auto) [place] % (Auto) Eos % (Auto) Baso % (Auto) Lymph # (Auto) [place] # (Auto) Eos # (Auto) Baso # (Auto) Abs Immat Gran (auto) Absolute Neuts (auto) Absolute Nucleated RBC Nucleated RBC % (auto) Sodium Potassium Chloride Carbon Dioxide Anion Gap BUN Creatinine Estim Creat Clear Calc Estimated GFR POC Glucose 118 H 200 H 161 H Random Glucose Calcium Magnesium Total Bilirubin AST ALT Alkaline Phosphatase Total Protein Albumin Urine Color Urine Appearance Urine pH Ur Specific [place] Urine Protein Urine Glucose (UA) Urine Ketones Urine Blood Urine Nitrite Ur Leukocyte Esterase Urine RBC Urine WBC Ur Squamous Epith Cells Urine Bacteria Hyaline Casts Salicylates Urine Opiates Screen Urine Fentanyl Screen Acetaminophen Ur Barbiturates Screen Ur Phencyclidine Scrn Ur Amphetamines Screen U Benzodiazepines Scrn Urine Cocaine Screen U Marijuana (THC) Screen Ethyl Alcohol COVID-19 (FERN) COVID-19 [employer] 03/11/23 03/11/23 03/11/23 05:16 08:23 12:33 WBC RBC Hgb Hct MCV MCH MCHC RDW Plt Count MPV Immature Gran % (Auto) Neut % (Auto) Lymph % (Auto) [place] % (Auto) Eos % (Auto) Baso % (Auto) Lymph # (Auto) [place] # (Auto) Eos # (Auto) Baso # (Auto) Abs Immat Gran (auto) Absolute Neuts (auto) Absolute Nucleated RBC Nucleated RBC % (auto) Sodium Potassium Chloride Carbon Dioxide Anion Gap BUN Creatinine Estim Creat Clear Calc Estimated GFR POC Glucose 147 H 171 H 117 H Random Glucose Calcium Magnesium Total Bilirubin AST ALT Alkaline Phosphatase Total Protein Albumin Urine Color Urine Appearance Urine pH Ur Specific [place] Urine Protein Urine Glucose (UA) Urine Ketones Urine Blood Urine Nitrite Ur Leukocyte Esterase Urine RBC Urine WBC Ur Squamous Epith Cells Urine Bacteria Hyaline Casts Salicylates Urine Opiates Screen Urine Fentanyl Screen Acetaminophen Ur Barbiturates Screen Ur Phencyclidine Scrn Ur Amphetamines Screen U Benzodiazepines Scrn Urine Cocaine Screen U Marijuana (THC) Screen Ethyl Alcohol COVID-19 (FERN) COVID-[employer] 03/11/23 03/11/23 03/12/23 17:20 20:50 07:44 WBC RBC Hgb Hct MCV MCH MCHC RDW Plt Count MPV Immature Gran % (Auto) Neut % (Auto) Lymph % (Auto) [place] % (Auto) Eos % (Auto) Baso % (Auto) Lymph # (Auto) [place] # (Auto) Eos # (Auto) Baso # (Auto) Abs Immat Gran (auto) Absolute Neuts (auto) Absolute Nucleated RBC Nucleated RBC % (auto) Sodium Potassium Chloride Carbon Dioxide Anion Gap BUN Creatinine Estim Creat Clear Calc Estimated GFR POC Glucose 107 225 H 136 H Random Glucose Calcium Magnesium Total Bilirubin AST ALT Alkaline Phosphatase Total Protein Albumin Urine Color Urine Appearance Urine pH Ur Specific [place] Urine Protein Urine Glucose (UA) Urine Ketones Urine Blood Urine Nitrite Ur Leukocyte Esterase Urine RBC Urine WBC Ur Squamous Epith Cells Urine Bacteria Hyaline Casts Salicylates Urine Opiates Screen Urine Fentanyl Screen Acetaminophen Ur Barbiturates Screen Ur Phencyclidine Scrn Ur Amphetamines Screen U Benzodiazepines Scrn Urine Cocaine Screen U Marijuana (THC) Screen Ethyl Alcohol COVID-19 (FERN) COVID-19 [employer] 03/12/23 03/12/23 03/12/23 12:02 17:23 20:53 WBC RBC Hgb Hct MCV MCH MCHC RDW Plt Count MPV Immature Gran % (Auto) Neut % (Auto) Lymph % (Auto) [place] % (Auto) Eos % (Auto) Baso % (Auto) Lymph # (Auto) [place] # (Auto) Eos # (Auto) Baso # (Auto) Abs Immat Gran (auto) Absolute Neuts (auto) Absolute Nucleated RBC Nucleated RBC % (auto) Sodium Potassium Chloride Carbon Dioxide Anion Gap BUN Creatinine Estim Creat Clear Calc Estimated GFR POC Glucose 135 H 124 H 167 H Random Glucose Calcium Magnesium Total Bilirubin AST ALT Alkaline Phosphatase Total Protein Albumin Urine Color Urine Appearance Urine pH Ur Specific [place] Urine Protein Urine Glucose (UA) Urine Ketones Urine Blood Urine Nitrite Ur Leukocyte Esterase Urine RBC Urine WBC Ur Squamous Epith Cells Urine Bacteria Hyaline Casts Salicylates Urine Opiates Screen Urine Fentanyl Screen Acetaminophen Ur Barbiturates Screen Ur Phencyclidine Scrn Ur Amphetamines Screen U Benzodiazepines Scrn Urine Cocaine Screen U Marijuana (THC) Screen Ethyl Alcohol COVID-19 (FERN) COVID-19 [employer] 03/13/23 03/13/23 03/13/23 08:02 09:12 12:30 WBC RBC Hgb Hct MCV MCH MCHC RDW Plt Count MPV Immature Gran % (Auto) Neut % (Auto) Lymph % (Auto) [place] % (Auto) Eos % (Auto) Baso % (Auto) Lymph # (Auto) [place] # (Auto) Eos # (Auto) Baso # (Auto) Abs Immat Gran (auto) Absolute Neuts (auto) Absolute Nucleated RBC Nucleated RBC % (auto) Sodium Potassium Chloride Carbon Dioxide Anion Gap BUN Creatinine 0.83 Estim Creat Clear Calc 101.7 Estimated GFR > 60 POC Glucose 125 H 133 H Random Glucose Calcium Magnesium Total Bilirubin AST ALT Alkaline Phosphatase Total Protein Albumin Urine Color Urine Appearance Urine pH Ur Specific [place] Urine Protein Urine Glucose (UA) Urine Ketones Urine Blood Urine Nitrite Ur Leukocyte Esterase Urine RBC Urine WBC Ur Squamous Epith Cells Urine Bacteria Hyaline Casts Salicylates Urine Opiates Screen Urine Fentanyl Screen Acetaminophen Ur Barbiturates Screen Ur Phencyclidine Scrn Ur Amphetamines Screen U Benzodiazepines Scrn Urine Cocaine Screen U Marijuana (THC) Screen Ethyl Alcohol COVID-19 (FERN) COVID-19 [employer] Com 03/13/23 03/13/23 03/14/23 17:23 20:52 07:44 WBC RBC Hgb Hct MCV MCH MCHC RDW Plt Count MPV Immature Gran % (Auto) Neut % (Auto) Lymph % (Auto) [place] % (Auto) Eos % (Auto) Baso % (Auto) Lymph # (Auto) [place] # (Auto) Eos # (Auto) Baso # (Auto) Abs Immat Gran (auto) Absolute Neuts (auto) Absolute Nucleated RBC Nucleated RBC % (auto) Sodium Potassium Chloride Carbon Dioxide Anion Gap BUN Creatinine Estim Creat Clear Calc Estimated GFR POC Glucose 132 H 169 H 101 Random Glucose Calcium Magnesium Total Bilirubin AST ALT Alkaline Phosphatase Total Protein Albumin Urine Color Urine Appearance Urine pH Ur Specific [place] Urine Protein Urine Glucose (UA) Urine Ketones Urine Blood Urine Nitrite Ur Leukocyte Esterase Urine RBC Urine WBC Ur Squamous Epith Cells Urine Bacteria Hyaline Casts Salicylates Urine Opiates Screen Urine Fentanyl Screen Acetaminophen Ur Barbiturates Screen Ur Phencyclidine Scrn Ur Amphetamines Screen U Benzodiazepines Scrn Urine Cocaine Screen U Marijuana (THC) Screen Ethyl Alcohol COVID-19 (FERN) COVID-19 [employer] 03/14/23 03/14/23 03/14/23 11:09 17:42 21:29 WBC RBC Hgb Hct MCV MCH MCHC RDW Plt Count MPV Immature Gran % (Auto) Neut % (Auto) Lymph % (Auto) [place] % (Auto) Eos % (Auto) Baso % (Auto) Lymph # (Auto) [place] # (Auto) Eos # (Auto) Baso # (Auto) Abs Immat Gran (auto) Absolute Neuts (auto) Absolute Nucleated RBC Nucleated RBC % (auto) Sodium Potassium Chloride Carbon Dioxide Anion Gap BUN Creatinine Estim Creat Clear Calc Estimated GFR POC Glucose 104 138 H 238 H Random Glucose Calcium Magnesium Total Bilirubin AST ALT Alkaline Phosphatase Total Protein Albumin Urine Color Urine Appearance Urine pH Ur Specific [place] Urine Protein Urine Glucose (UA) Urine Ketones Urine Blood Urine Nitrite Ur Leukocyte Esterase Urine RBC Urine WBC Ur Squamous Epith Cells Urine Bacteria Hyaline Casts Salicylates Urine Opiates Screen Urine Fentanyl Screen Acetaminophen Ur Barbiturates Screen Ur Phencyclidine Scrn Ur Amphetamines Screen U Benzodiazepines Scrn Urine Cocaine Screen U Marijuana (THC) Screen Ethyl Alcohol COVID-19 (FERN) COVID-19 [employer] Com 03/15/23 03/16/23 03/16/23 12:40 12:39 17:08 WBC RBC Hgb Hct MCV MCH MCHC RDW Plt Count MPV Immature Gran % (Auto) Neut % (Auto) Lymph % (Auto) [place] % (Auto) Eos % (Auto) Baso % (Auto) Lymph # (Auto) [place] # (Auto) Eos # (Auto) Baso # (Auto) Abs Immat Gran (auto) Absolute Neuts (auto) Absolute Nucleated RBC Nucleated RBC % (auto) Sodium Potassium Chloride Carbon Dioxide Anion Gap BUN Creatinine Estim Creat Clear Calc Estimated GFR POC Glucose 97 87 137 H Random Glucose Calcium Magnesium Total Bilirubin AST ALT Alkaline Phosphatase Total Protein Albumin Urine Color Urine Appearance Urine pH Ur Specific [place] Urine Protein Urine Glucose (UA) Urine Ketones Urine Blood Urine Nitrite Ur Leukocyte Esterase Urine RBC Urine WBC Ur Squamous Epith Cells Urine Bacteria Hyaline Casts Salicylates Urine Opiates Screen Urine Fentanyl Screen Acetaminophen Ur Barbiturates Screen Ur Phencyclidine Scrn Ur Amphetamines Screen U Benzodiazepines Scrn Urine Cocaine Screen U Marijuana (THC) Screen Ethyl Alcohol COVID-19 (FERN) COVID-19 [employer] 03/17/23 03/17/23 03/17/23 12:34 17:27 20:09 WBC RBC Hgb Hct MCV MCH MCHC RDW Plt Count MPV Immature Gran % (Auto) Neut % (Auto) Lymph % (Auto) [place] % (Auto) Eos % (Auto) Baso % (Auto) Lymph # (Auto) [place] # (Auto) Eos # (Auto) Baso # (Auto) Abs Immat Gran (auto) Absolute Neuts (auto) Absolute Nucleated RBC Nucleated RBC % (auto) Sodium Potassium Chloride Carbon Dioxide Anion Gap BUN Creatinine Estim Creat Clear Calc Estimated GFR POC Glucose 83 159 H 133 H Random Glucose Calcium Magnesium Total Bilirubin AST ALT Alkaline Phosphatase Total Protein Albumin Urine Color Urine Appearance Urine pH Ur Specific [place] Urine Protein Urine Glucose (UA) Urine Ketones Urine Blood Urine Nitrite Ur Leukocyte Esterase Urine RBC Urine WBC Ur Squamous Epith Cells Urine Bacteria Hyaline Casts Salicylates Urine Opiates Screen Urine Fentanyl Screen Acetaminophen Ur Barbiturates Screen Ur Phencyclidine Scrn Ur Amphetamines Screen U Benzodiazepines Scrn Urine Cocaine Screen U Marijuana (THC) Screen Ethyl Alcohol COVID-19 (FERN) COVID-19 [employer] 03/18/23 03/18/23 03/19/23 12:23 17:19 06:22 WBC RBC Hgb Hct MCV MCH MCHC RDW Plt Count MPV Immature Gran % (Auto) Neut % (Auto) Lymph % (Auto) [place] % (Auto) Eos % (Auto) Baso % (Auto) Lymph # (Auto) [place] # (Auto) Eos # (Auto) Baso # (Auto) Abs Immat Gran (auto) Absolute Neuts (auto) Absolute Nucleated RBC Nucleated RBC % (auto) Sodium Potassium Chloride Carbon Dioxide Anion Gap BUN Creatinine Estim Creat Clear Calc Estimated GFR POC Glucose 221 H 118 H 108 Random Glucose Calcium Magnesium Total Bilirubin AST ALT Alkaline Phosphatase Total Protein Albumin Urine Color Urine Appearance Urine pH Ur Specific [place] Urine Protein Urine Glucose (UA) Urine Ketones Urine Blood Urine Nitrite Ur Leukocyte Esterase Urine RBC Urine WBC Ur Squamous Epith Cells Urine Bacteria Hyaline Casts Salicylates Urine Opiates Screen Urine Fentanyl Screen Acetaminophen Ur Barbiturates Screen Ur Phencyclidine Scrn Ur Amphetamines Screen U Benzodiazepines Scrn Urine Cocaine Screen U Marijuana (THC) Screen Ethyl Alcohol COVID-19 (FERN) COVID-19 Clin Com Airway Mallampati Class: II TM Dist: >3cm Neck ROM: Full Denture: Upper and Lower Heart: rrr Lungs: cta Assessment and Plan Assessment Anesthesia Assessment: Anesthesia Plan Discussed and Chart Reviewed Final Anesthetic Review Family History of Problems with Anesthesia: No History of Problems with Anesthesia: No NPO: Yes ASA Class: III Final Preanesthetic Review: No Changes in Pt Med Stat, Meds/Allgs Chart Reviewed and Consent Obtained/Reviewed Patient Risk: Intermediate Procedure Risk: Intermediate Anesthetic Plan Anesthetic Plan: GA Disposition: Standard PACU
--- NOTE | 2023-03-19 07:08 | MHC.SHP ---
Pre-Procedural Eval Section A Date of Service: 03/19/23 The patient is an INPATIENT: Yes Changes since office visit: No Cold of Flu in the past 2 weeks, No New Medical Problems, No Changes in Medication and No Patient answered all questions The History & Physical has been completed within 30 days and I have reviewed it.: Yes Section B Chief Complaint: LBBB, pre ECT Allergies: Allergies Allergy/AdvReac Type Severity Reaction Status Date / Time codeine [CODEINE] Allergy Unknown delayed Verified 11/25/22 10:40 responses 02/24/17 Plan I have reviewed the history and physical and performed a pertinent physical examination on my patient. No changes have occurred unless specified. Time Spent With Patient Time: Total time managing care of this patient today ____ minutes.
--- NOTE | 2023-03-19 07:39 | HO.ECTPROC ---
ECT Procedure Note Diagnosis/Treatment Date of Service: 03/19/23 Diagnosis: Major Depressive Disorder Previous ECT Date: 03/14/23 Current Treatment Number: 2 Treatment: Series Interval Clinical Notes: The patient reports dysphoria, he admitted muscle pain the day after the procedure so today, we add Roncuronium after Succhynicoline. He had a long seizure since I increased the pulse with to 0.5. Time: Total time managing care of this patient today __30__ minutes. ECT Settings Device: THYMATRON DGx Electrode Placement: Right Unilateral Program/Pulse Width: 0.50 Energy Percent: 100 Seizure Duration By EEG (in seconds): 74 By Motor Observation (in seconds): 30 Medications Administration General Anesthetic: Etomidate (14) Muscle Relaxant: Succinylcholine (140) and Rocuronium (5) Ancillary Medications Analgesics: Torodol - Pre ECT (30 mg) Anti-emetics: Zofran - Pre ECT Airway Management Airway Management: LMA Treatment Recommendations No Changes Recommended: No change Pt Tolerated Procedure w/o Issue: Yes
[2023-03-19 09:17] LABS: Glucose, Whole Blood 98 mg/dL (60-115)
[2023-03-19] MEDS: buPROPion HCl XL 300 MG TAB.ER.24H PO (09:22)
[2023-03-19] MEDS: amLODIPine Besylate 10 MG TABLET PO (09:22)
[2023-03-19] MEDS: metFORMIN HCl ER 500 MG TAB.ER.24H 1000 MG PO ×2 (09:22→21:30)
[2023-03-19] MEDS: DULoxetine HCl 30 MG CAPSULE.DR PO (09:22)
[2023-03-19] MEDS: hydrALAZINE HCl 25 MG TABLET PO ×3 (09:22→21:30)
[2023-03-19] MEDS: buPROPion HCl XL 150 MG TAB.ER.24H PO (09:22)
[2023-03-19] MEDS: Valsartan 160 MG TABLET PO (09:22)
[2023-03-19] MEDS: SITagliptin Phosphate 50 MG TABLET PO (09:22)
[2023-03-19 10:41] LABS: Creatinine Clr Calc Pharmacy 94.5; Estimated Glomerular Filt Rate > 60
--- NOTE | 2023-03-19 14:39 | P.PNPSI_ITS ---
Subjective Subjective Date of Service: 03/19/23 Reason For Visit: LBBB, pre ECT Interim History: sleeping mid-morning, rousable. states he is tired, back from ECT. reports brief dizziness after the procedure. feeling a bit better, no questions or concerns. heard he will not be losing his job. per staff, attending groups, social. dep/anx 12/21. slept well overnight. Mental Status Exam Mental Status Exam Narrative: calm cooperative. appropriately dressed and groomed. slight PMR. speech decr in rate, decr amount, nml loudness, flattened tone, slightly incr latency. thoughts linear and logical. affect flat, consistent with context, hypo- intense, non-labile. mood better. no SI/SIBI/HI/AVH expressed. Diagnostics Vital Signs (24Hr): Vital Signs - 24 hr 03/18/23 20:00 03/19/23 05:54 03/19/23 06:27 Temperature 97.8 F 97.8 F 97 F Pulse Rate 78 92 87 Respiratory Rate 18 18 16 Blood Pressure 124/74 132/66 137/79 Pulse Oximetry 98 98 94 Oxygen Delivery Method Room Air Room Air Room Air Oxygen Flow Rate 03/19/23 07:56 03/19/23 08:01 03/19/23 08:06 Temperature 98.1 F Pulse Rate 89 88 88 Respiratory Rate 24 H 22 H 19 Blood Pressure 165/91 H 165/86 H 157/85 H Pulse Oximetry 97 97 97 Oxygen Delivery Method Room Air Nasal Cannula with ETCO2 Nasal Cannula with ETCO2 Oxygen Flow Rate 2 2 03/19/23 08:11 03/19/23 08:26 03/19/23 08:46 Temperature 98.0 F Pulse Rate 87 84 83 Respiratory Rate 20 24 H 19 Blood Pressure 156/81 H 157/83 H 133/74 Pulse Oximetry 97 96 94 Oxygen Delivery Method Nasal Cannula with ETCO2 Nasal Cannula with ETCO2 Room Air Oxygen Flow Rate 2 2 03/19/23 09:19 03/19/23 09:20 Temperature 97.5 F 97.5 F Pulse Rate 86 86 Respiratory Rate 16 16 Blood Pressure 137/67 137/67 Pulse Oximetry 96 96 Oxygen Delivery Method Room Air Oxygen Flow Rate BMI result Body Mass Index 28.2 Labs 03/07/23 12:23 03/19/23 09:57 Labs: Laboratory Results - last 48 hr 03/17/23 03/17/23 03/18/23 17:27 20:09 12:23 Creatinine Estim Creat Clear Calc Estimated GFR POC Glucose 159 H 133 H 221 H 03/18/23 03/19/23 03/19/23 17:19 06:22 09:11 Creatinine Estim Creat Clear Calc Estimated GFR POC Glucose 118 H 108 98 03/19/23 09:57 Creatinine 0.90 Estim Creat Clear Calc 94.5 Estimated GFR > 60 POC Glucose Medications Medications Current Medications Acetaminophen (Acetaminophen 325 Mg Tablet) 650 mg PO Q6H PRN PRN Reason: Headache/Pain Mild Scale (1-3) Last Admin: 03/19/23 01:14 Dose: 650 mg Al Hydroxide/Mg Hydroxide (Magnesium Hydrox/Alum Hydrox 30 Ml Oral.Susp) 30 ml PO Q6H PRN PRN Reason: Heartburn/Nausea Amlodipine Besylate (Amlodipine Besylate 10 Mg Tablet) 10 mg PO DAILY [facility]; Protocol Last Admin: 03/19/23 09:22 Dose: 10 mg Aripiprazole (Aripiprazole 5 Mg Tablet) 5 mg PO BEDTIME [facility] Last Admin: 03/18/23 21:37 Dose: 5 mg Bupropion HCl (Bupropion Hcl Xl 150 Mg Tab.Er.24h) 150 mg PO DAILY [facility] Last Admin: 03/19/23 09:22 Dose: 150 mg Bupropion HCl (Bupropion Hcl Xl 300 Mg Tab.Er.24h) 300 mg PO DAILY [facility] Last Admin: 03/19/23 09:22 Dose: 300 mg Duloxetine HCl (Duloxetine Hcl 30 Mg Capsule.Dr) 30 mg PO DAILY [facility] Last Admin: 03/19/23 09:22 Dose: 30 mg Hydralazine HCl (Hydralazine Hcl 25 Mg Tablet) 25 mg PO TID [facility]; Protocol Last Admin: 03/19/23 09:22 Dose: 25 mg Hydroxyzine HCl (Hydroxyzine Hcl 25 Mg Tablet) 25 mg PO Q6H PRN PRN Reason: Anxiety Last Admin: 03/18/23 00:53 Dose: 25 mg Insulin Human Lispro (Insulin Lispro 100 Unit/Ml 3 Ml Vial) 0 unit SUBCUT QIDACHS [facility]; Protocol Last Admin: 03/19/23 12:43 Dose: Not Given Magnesium Hydroxide (Milk Of Magnesia 30 Ml Oral.Susp) 30 ml PO DAILY PRN PRN Reason: Constipation Meclizine HCl (Meclizine Hcl 25 Mg Tablet) 25 mg PO Q6H PRN PRN Reason: dizziness Last Admin: 03/11/23 10:43 Dose: 25 mg Melatonin (Melatonin 3 Mg Tablet) 6 mg PO BEDTIME PRN PRN Reason: Insomnia Last Admin: 03/18/23 21:44 Dose: 6 mg Metformin HCl (Metformin Hcl Er 500 Mg Tab.Er.24h) 1,000 mg PO BID [facility] Last Admin: 03/19/23 09:22 Dose: 1,000 mg Mirtazapine (Mirtazapine 15 Mg Tablet) 15 mg PO BEDTIME [facility] Last Admin: 03/18/23 21:37 Dose: 15 mg Nicotine (Nicotine 21 Mg Patch.Td24) 21 mg TRANSDERMA DAILY PRN PRN Reason: smoking cessation Nicotine Polacrilex (Nicotine Polacrilex 2 Mg Gum) 4 mg BUCCAL Q2H PRN PRN Reason: Nicotine Cravings Pt Own (Dulaglutide [Trulicity] 1.5 Mg/0 .5 Ml Pen Injector) 1.5 mg SUBCUT Fr [facility] Last Admin: 03/15/23 19:32 Dose: 1.5 mg Sitagliptin Phosphate (Sitagliptin Phosphate 50 Mg Tablet) 50 mg PO DAILY [facility] Last Admin: 03/19/23 09:22 Dose: 50 mg Valsartan (Valsartan 160 Mg Tablet) 160 mg PO DAILY [facility]; Protocol Last Admin: 03/19/23 09:22 Dose: 160 mg Allergies Allergies Allergy/AdvReac Type Severity Reaction Status Date / Time codeine [CODEINE] Allergy Unknown delayed Verified 11/25/22 10:40 responses 02/24/17 Assessment & Plan Assessment & Plan (1) Major depressive disorder, recurrent severe without psychotic features: Status: Acute Code(s): F33.2 - Major depressive disorder, recurrent severe without psychotic features Plan 57 year old man who lives in [place] and 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 Patient with a history of Major Depression, recurrent and several inpatient psychiatric hospitalizations, the last of which was last summer. He was brought to the ED by ambulance. He had been talking to his evp operations, Abigail Odonnell [employer] BI DEVELOPER at [facility] and voiced SI and was making reference to his life insurance policy. This prompted her to call EMS and he was taken to the ED. He reports he had a plan of either hanging himself or cutting his wrist. 03/08:? Collaterals from .? Collateral with Abigail Odonnell re medication adjustments.? Consider ECT.? Psychoeducation given.? No medication changes for now. 03/09: Continue treatment plan. 03/10:? get clearance for ECT.? repeat EKG due to prolonged QTc.? was recently started on cymbalta 20 mg daily, not picked up from pharmacy.? will d/w patient starting or not the medication. 03/11:? cardiomyopathy with slightly reduced EF, no other medical concerns for ECT.? prolonged QTc, but with LBBB so corrected QT is 337.? start cymbalta 30 mg daily as initiated by outpt provider.? start meclizine PRN dizziness. 03/12:? intermediate risk per cardiology.? pt remains interested in pursuing ECT.? consult placed for [facility].? continue current mgmt. 03/13:? increase abilify to 5 mg daily for adjunctive anti-depressant effect.? ECT #1 scheduled for tomorrow. 03/14:? ECT #1 completed, uneventful.? abilify dosing increased as of today.? continue current mgmt. ? ECT #2 for next . 03/15: Continue current plans and regimen 03/16: Continue current plans and regimen 03/18: ECT #2 for tomorrow. remains dysphoric, expressing safety concerns to staff. DC trazodone. start remeron 15. incr melatonin to 6. 03/19: s/p ECT #2 this morning. tired, sleeping mid-morning. heard he will not be losing his job. continue current mgmt. Reason for continued inpatient stay Substantial Risk for: harm to self, inability to function and rapid decompensation Time Spent With Patient Time: Total time managing care of this patient today ____ minutes.
[2023-03-19 17:33] LABS: Glucose, Whole Blood 173 mg/dL (60-115)
[2023-03-19] MEDS: Insulin Lispro 100 UNIT/ML 3 ML VIAL SUBCUT (17:39)
[2023-03-19] MEDS: ARIPiprazole 5 MG TABLET PO (21:30)
[2023-03-19] MEDS: Melatonin 3 MG TABLET 6 MG PO (21:30)
[2023-03-19] MEDS: Mirtazapine 15 MG TABLET PO (21:30)
[2023-03-20 07:00] VITALS: BMI 28.0
[2023-03-20 08:00] VITALS: BP 117/71; PULSE 89; RESP 18; TEMP 36.2; O2SAT 97
[2023-03-20] MEDS: Valsartan 160 MG TABLET PO (09:06)
[2023-03-20] MEDS: buPROPion HCl XL 300 MG TAB.ER.24H PO (09:06)
[2023-03-20] MEDS: hydrALAZINE HCl 25 MG TABLET PO ×3 (09:06→22:00)
[2023-03-20] MEDS: amLODIPine Besylate 10 MG TABLET PO (09:06)
[2023-03-20] MEDS: SITagliptin Phosphate 50 MG TABLET PO (09:06)
[2023-03-20] MEDS: metFORMIN HCl ER 500 MG TAB.ER.24H 1000 MG PO ×2 (09:07→21:59)
[2023-03-20] MEDS: buPROPion HCl XL 150 MG TAB.ER.24H PO (09:07)
[2023-03-20] MEDS: DULoxetine HCl 30 MG CAPSULE.DR PO (09:07)
[2023-03-20 11:58] LABS: Glucose, Whole Blood 190 mg/dL (60-115)
[2023-03-20] MEDS: Insulin Lispro 100 UNIT/ML 3 ML VIAL SUBCUT ×2 (12:52→21:55)
[2023-03-20] MEDS: Throat Lozenge, Medicated LOZENGE 1 LOZENGE MUCOUS MEM ×4 (13:15→22:06)
--- NOTE | 2023-03-20 15:36 | HO.PSYCHPN ---
Subjective Subjective Date of Service: 03/20/23 Reason For Visit: LBBB, pre ECT Interim History: mood coming up, more energy. decreased SI. per staff, sleeping a lot. isolative, quiet. later in the kitchen, more social. anx/dep 4. passive SI. per SW, bright and cheerful with her. Mental Status Exam Mental Status Exam Narrative: calm cooperative. appropriately dressed and groomed. slight PMR. speech decr in rate, decr amount, nml loudness, flattened tone, slightly incr latency. thoughts linear and logical. affect flat, consistent with context, hypo-intense, non-labile. mood coming up. SI trending down. no SIBI/HI/AVH expressed. Diagnostics Vital Signs (24Hr): Vital Signs - 24 hr 03/19/23 20:10 03/20/23 08:00 Temperature 97.8 F 97.2 F Pulse Rate 100 89 Respiratory Rate 18 18 Blood Pressure 130/65 117/71 Pulse Oximetry 96 97 Oxygen Delivery Method Room Air Room Air BMI result Body Mass Index 28.2 Labs 03/07/23 12:23 03/19/23 09:57 Labs: Laboratory Results - last 48 hr 03/18/23 03/19/23 03/19/23 17:19 06:22 09:11 Creatinine Estim Creat Clear Calc Estimated GFR POC Glucose 118 H 108 98 03/19/23 03/19/23 03/20/23 09:57 17:26 11:54 Creatinine 0.90 Estim Creat Clear Calc 94.5 Estimated GFR > 60 POC Glucose 173 H 190 H Medications Medications Current Medications Acetaminophen (Acetaminophen 325 Mg Tablet) 650 mg PO Q6H PRN PRN Reason: Headache/Pain Mild Scale (1-3) Last Admin: 03/19/23 01:14 Dose: 650 mg Al Hydroxide/Mg Hydroxide (Magnesium Hydrox/Alum Hydrox 30 Ml Oral.Susp) 30 ml PO Q6H PRN PRN Reason: Heartburn/Nausea Amlodipine Besylate (Amlodipine Besylate 10 Mg Tablet) 10 mg PO DAILY [facility]; Protocol Last Admin: 03/20/23 09:06 Dose: 10 mg Aripiprazole (Aripiprazole 5 Mg Tablet) 5 mg PO BEDTIME [facility] Last Admin: 03/19/23 21:30 Dose: 5 mg Benzocaine (Throat Lozenge, Medicated Lozenge) 1 lozenge MUCOUS MEM Q1H PRN PRN Reason: Sore Throat Last Admin: 03/20/23 14:46 Dose: 1 lozenge Bupropion HCl (Bupropion Hcl Xl 150 Mg Tab.Er.24h) 150 mg PO DAILY [facility] Last Admin: 03/20/23 09:07 Dose: 150 mg Bupropion HCl (Bupropion Hcl Xl 300 Mg Tab.Er.24h) 300 mg PO DAILY [facility] Last Admin: 03/20/23 09:06 Dose: 300 mg Duloxetine HCl (Duloxetine Hcl 30 Mg Capsule.Dr) 30 mg PO DAILY [facility] Last Admin: 03/20/23 09:07 Dose: 30 mg Hydralazine HCl (Hydralazine Hcl 25 Mg Tablet) 25 mg PO TID [facility]; Protocol Last Admin: 03/20/23 15:23 Dose: 25 mg Hydroxyzine HCl (Hydroxyzine Hcl 25 Mg Tablet) 25 mg PO Q6H PRN PRN Reason: Anxiety Last Admin: 03/18/23 00:53 Dose: 25 mg Insulin Human Lispro (Insulin Lispro 100 Unit/Ml 3 Ml Vial) 0 unit SUBCUT QIDACHS [facility]; Protocol Last Admin: 03/20/23 12:52 Dose: 2 unit Magnesium Hydroxide (Milk Of Magnesia 30 Ml Oral.Susp) 30 ml PO DAILY PRN PRN Reason: Constipation Meclizine HCl (Meclizine Hcl 25 Mg Tablet) 25 mg PO Q6H PRN PRN Reason: dizziness Last Admin: 03/11/23 10:43 Dose: 25 mg Melatonin (Melatonin 3 Mg Tablet) 6 mg PO BEDTIME PRN PRN Reason: Insomnia Last Admin: 03/19/23 21:30 Dose: 6 mg Metformin HCl (Metformin Hcl Er 500 Mg Tab.Er.24h) 1,000 mg PO BID [facility] Last Admin: 03/20/23 09:07 Dose: 1,000 mg Mirtazapine (Mirtazapine 15 Mg Tablet) 15 mg PO BEDTIME [facility] Last Admin: 03/19/23 21:30 Dose: 15 mg Nicotine (Nicotine 21 Mg Patch.Td24) 21 mg TRANSDERMA DAILY PRN PRN Reason: smoking cessation Nicotine Polacrilex (Nicotine Polacrilex 2 Mg Gum) 4 mg BUCCAL Q2H PRN PRN Reason: Nicotine Cravings Pt Own (Dulaglutide [Trulicity] 1.5 Mg/0 .5 Ml Pen Injector) 1.5 mg SUBCUT Fr [facility] Last Admin: 03/15/23 19:32 Dose: 1.5 mg Sitagliptin Phosphate (Sitagliptin Phosphate 50 Mg Tablet) 50 mg PO DAILY [facility] Last Admin: 03/20/23 09:06 Dose: 50 mg Valsartan (Valsartan 160 Mg Tablet) 160 mg PO DAILY [facility]; Protocol Last Admin: 03/20/23 09:06 Dose: 160 mg Allergies Allergies Allergy/AdvReac Type Severity Reaction Status Date / Time codeine [CODEINE] Allergy Unknown delayed Verified 11/25/22 10:40 responses 02/24/17 Assessment & Plan Assessment & Plan (1) Major depressive disorder, recurrent severe without psychotic features: Status: Acute Code(s): F33.2 - Major depressive disorder, recurrent severe without psychotic features Plan 57 year old man who lives in [place] and 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 Patient with a history of Major Depression, recurrent and several inpatient psychiatric hospitalizations, the last of which was last summer. He was brought to the ED by ambulance. He had been talking to his weatherization director, Abigail Odonnell ACCOUNT REPRESENTATIVE at [facility] and voiced SI and was making reference to his life insurance policy. This prompted her to call EMS and he was taken to the ED. He reports he had a plan of either hanging himself or cutting his wrist. 03/08:? Collaterals from .? Collateral with Abigail Odonnell re medication adjustments.? Consider ECT.? Psychoeducation given.? No medication changes for now. 03/09: Continue treatment plan. 03/10:? get clearance for ECT.? repeat EKG due to prolonged QTc.? was recently started on cymbalta 20 mg daily, not picked up from pharmacy.? will d/w patient starting or not the medication. 03/11:? cardiomyopathy with slightly reduced EF, no other medical concerns for ECT.? prolonged QTc, but with LBBB so corrected QT is 337.? start cymbalta 30 mg daily as initiated by outpt provider.? start meclizine PRN dizziness. 03/12:? intermediate risk per cardiology.? pt remains interested in pursuing ECT.? consult placed for [facility].? continue current mgmt. 03/13:? increase abilify to 5 mg daily for adjunctive anti-depressant effect.? ECT #1 scheduled for tomorrow. 03/14:? ECT #1 completed, uneventful.? abilify dosing increased as of today.? continue current mgmt. ? ECT #2 for next . 03/15: Continue current plans and regimen 03/16: Continue current plans and regimen 03/18: ECT #2 for tomorrow. remains dysphoric, expressing safety concerns to staff. DC trazodone. start remeron 15. incr melatonin to 6. 03/19: s/p ECT #2 this morning. tired, sleeping mid-morning. heard he will not be losing his job. continue current mgmt. 03/20: improving mood, more socially active, more energy. continue current mgmt. planning to discharge home next friday, the day after ECT #4. Reason for continued inpatient stay Substantial Risk for: harm to self, inability to function and rapid decompensation Time Spent With Patient Time: Total time managing care of this patient today _25___ minutes.
[2023-03-20 16:41] LABS: Glucose, Whole Blood 119 mg/dL (60-115)
[2023-03-20 20:20] VITALS: BP 138/70; PULSE 89; RESP 16; TEMP 36.1; O2SAT 99
[2023-03-20 21:43] LABS: Glucose, Whole Blood 266 mg/dL (60-115)
[2023-03-20] MEDS: Mirtazapine 15 MG TABLET PO (21:59)
[2023-03-20] MEDS: ARIPiprazole 5 MG TABLET PO (21:59)
[2023-03-21] VITALS (9 sets, daily range): BP systolic 109–169; BP diastolic 52–92; PULSE 86–100; RESP 16–24; TEMP 35.9–37; O2SAT 92–98
--- NOTE | 2023-03-21 07:44 | HO.ANESPROP2 ---
[facility] Active Problems Active Problems: All Active Problems (Updated 03/17/23 @ 12:19 by Stone Anders MD) Major depressive disorder, recurrent severe without psychotic features (Acute) Preop cardiovascular exam (Acute) Recurrent major depression (Acute) Persistent depressive disorder (Acute) Depression (Acute) Suicidal ideation (Acute) ILD (interstitial lung disease) (Acute) Persistent cough (Acute) Acute respiratory failure with hypoxia (Acute) Community acquired pneumonia (Acute) Heart disease, unspecified (Acute) Dizziness (Acute) Past Medical History Medical History (Updated 03/17/23 @ 12:19 by Stone Anders MD) Major depressive disorder, recurrent severe without psychotic features ILD (interstitial lung disease) Preop cardiovascular exam Osteomyelitis Diabetic foot ulcer LBBB (left bundle branch block) Type 2 diabetes mellitus with foot ulcer HTN (hypertension) Suicidal ideation Depression Family History Family History Father Neck malignant neoplasm Family history of problems with anesthesia: No Surgical History Surgical History H/O: vasectomy History of Problems with Anesthesia: No Social History Social History Household Members: Family Housing: House Do you presently have visiting nurse or other home services: No Alcohol intake: current Alcohol intake frequency: a few times a month Patient Tobacco Use Status: Never used Tobacco e-Cigarette/Vaping Use: Never Used Second Hand Smoke Exposure: No Substance Use Type: Marijuana Advance Directives Date on File: 04/11/22 service: No Current occupational status: employed Sexual orientation: Straight/Heterosexual Meds Allergies Allergy/AdvReac Type Severity Reaction Status Date / Time codeine [CODEINE] Allergy Unknown delayed Verified 11/25/22 10:40 responses 02/24/17 Active Medications: Current Medications Acetaminophen (Acetaminophen 325 Mg Tablet) 650 mg PO Q6H PRN PRN Reason: Headache/Pain Mild Scale (1-3) Last Admin: 03/19/23 01:14 Dose: 650 mg Al Hydroxide/Mg Hydroxide (Magnesium Hydrox/Alum Hydrox 30 Ml Oral.Susp) 30 ml PO Q6H PRN PRN Reason: Heartburn/Nausea Amlodipine Besylate (Amlodipine Besylate 10 Mg Tablet) 10 mg PO DAILY MICHELLE; Protocol Last Admin: 03/20/23 09:06 Dose: 10 mg Aripiprazole (Aripiprazole 5 Mg Tablet) 5 mg PO BEDTIME [facility] Last Admin: 03/20/23 21:59 Dose: 5 mg Benzocaine (Throat Lozenge, Medicated Lozenge) 1 lozenge MUCOUS MEM Q1H PRN PRN Reason: Sore Throat Last Admin: 03/20/23 22:06 Dose: 1 lozenge Bupropion HCl (Bupropion Hcl Xl 150 Mg Tab.Er.24h) 150 mg PO DAILY [facility] Last Admin: 03/20/23 09:07 Dose: 150 mg Bupropion HCl (Bupropion Hcl Xl 300 Mg Tab.Er.24h) 300 mg PO DAILY [facility] Last Admin: 03/20/23 09:06 Dose: 300 mg Duloxetine HCl (Duloxetine Hcl 30 Mg Capsule.Dr) 30 mg PO DAILY [facility] Last Admin: 03/20/23 09:07 Dose: 30 mg Hydralazine HCl (Hydralazine Hcl 25 Mg Tablet) 25 mg PO TID [facility]; Protocol Last Admin: 03/20/23 22:00 Dose: 25 mg Hydroxyzine HCl (Hydroxyzine Hcl 25 Mg Tablet) 25 mg PO Q6H PRN PRN Reason: Anxiety Last Admin: 03/18/23 00:53 Dose: 25 mg Lactated Ringer's (Lr) 1,000 mls @ 50 mls/hr IVCONT .Q20H [facility] Insulin Human Lispro (Insulin Lispro 100 Unit/Ml 3 Ml Vial) 0 unit SUBCUT QIDACHS [facility]; Protocol Last Admin: 03/20/23 21:55 Dose: 6 unit Magnesium Hydroxide (Milk Of Magnesia 30 Ml Oral.Susp) 30 ml PO DAILY PRN PRN Reason: Constipation Meclizine HCl (Meclizine Hcl 25 Mg Tablet) 25 mg PO Q6H PRN PRN Reason: dizziness Last Admin: 03/11/23 10:43 Dose: 25 mg Melatonin (Melatonin 3 Mg Tablet) 6 mg PO BEDTIME PRN PRN Reason: Insomnia Last Admin: 03/19/23 21:30 Dose: 6 mg Metformin HCl (Metformin Hcl Er 500 Mg Tab.Er.24h) 1,000 mg PO BID [facility] Last Admin: 03/20/23 21:59 Dose: 1,000 mg Mirtazapine (Mirtazapine 15 Mg Tablet) 15 mg PO BEDTIME [facility] Last Admin: 03/20/23 21:59 Dose: 15 mg Nicotine (Nicotine 21 Mg Patch.Td24) 21 mg TRANSDERMA DAILY PRN PRN Reason: smoking cessation Nicotine Polacrilex (Nicotine Polacrilex 2 Mg Gum) 4 mg BUCCAL Q2H PRN PRN Reason: Nicotine Cravings Pt Own (Dulaglutide [Trulicity] 1.5 Mg/0 .5 Ml Pen Injector) 1.5 mg SUBCUT Fr [facility] Last Admin: 03/15/23 19:32 Dose: 1.5 mg Sitagliptin Phosphate (Sitagliptin Phosphate 50 Mg Tablet) 50 mg PO DAILY [facility] Last Admin: 03/20/23 09:06 Dose: 50 mg Valsartan (Valsartan 160 Mg Tablet) 160 mg PO DAILY [facility]; Protocol Last Admin: 03/20/23 09:06 Dose: 160 mg Home Medications Medication Instructions Recorded Confirmed Last Taken Type metformin 1,000 mg tablet,extended 1,000 mg PO BID 11/15/22 03/07/23 11/15/22 History release 24hr sitagliptin phosphate 50 mg tablet 50 mg PO DAILY 11/15/22 03/07/23 11/15/22 History (Januvia) valsartan 160 mg tablet 160 mg PO DAILY 11/15/22 03/07/23 11/15/22 History dulaglutide 1.5 mg/0.5 mL 1.5 mg subcut QWEEK 03/07/23 03/07/23 Unknown History subcutaneous pen injector (Trulicity) Exam Exam Date and Time: March 21, 2023 0744 Height,Weight and Vital Signs: Height 5 ft 8 in Weight 83.642 kg Last Vital Signs Temp 96.7 F L 03/21/23 07:07 Pulse 99 03/21/23 07:07 Resp 16 03/21/23 07:07 BP 152/83 H 03/21/23 07:07 Pulse Ox 98 03/21/23 07:07 O2 Del Method Room Air 03/21/23 07:07 O2 Flow Rate 2 03/19/23 08:26 Pertinent Lab Results Pertinent Lab Results: Laboratory Tests 03/07/23 03/07/23 03/07/23 12:14 12:17 12:23 WBC 5.7 RBC 5.30 Hgb 15.0 Hct 46.2 MCV 87.2 MCH 28.3 MCHC 32.5 RDW 13.5 Plt Count 214 D MPV 9.9 Immature Gran % (Auto) 0.2 Neut % (Auto) 57.7 Lymph % (Auto) 26.6 Mclennan % (Auto) 8.8 Eos % (Auto) 5.6 H Baso % (Auto) 1.1 Lymph # (Auto) 1.5 Mclennan # (Auto) 0.5 Eos # (Auto) 0.3 Baso # (Auto) 0.1 Abs Immat Gran (auto) 0.01 Absolute Neuts (auto) 3.3 Absolute Nucleated RBC 0.000 Nucleated RBC % (auto) 0.0 Sodium 142 Potassium 4.4 Chloride 106 Carbon Dioxide 27 Anion Gap 13 BUN 19 H Creatinine 1.06 Estim Creat Clear Calc 80.1 Estimated GFR > 60 POC Glucose 296 H Random Glucose 304 H Calcium 9.9 D Magnesium 2.0 Total Bilirubin 0.6 AST 19 ALT 14 Alkaline Phosphatase 82 Total Protein 7.1 Albumin 4.1 Urine Color Yellow Urine Appearance Clear Urine pH 5.5 Ur Specific [place] 1.015 Urine Protein Negative Urine Glucose (UA) >=1000 H Urine Ketones Negative Urine Blood Negative Urine Nitrite Negative Ur Leukocyte Esterase Negative Urine RBC 0-2 Urine WBC 0-5 Ur Squamous Epith Cells 0-2 Urine Bacteria None Seen Hyaline Casts 0-2 Salicylates < 5.0 L Urine Opiates Screen Not Detected Urine Fentanyl Screen Not Detected Acetaminophen < 17 Ur Barbiturates Screen Not Detected Ur Phencyclidine Scrn Not Detected Ur Amphetamines Screen Not Detected U Benzodiazepines Scrn Not Detected Urine Cocaine Screen Not Detected U Marijuana (THC) Screen Not Detected Ethyl Alcohol < 10 COVID-19 ([facility]) COVID-19 Clin Com 03/07/23 03/07/23 03/07/23 14:44 17:56 21:46 WBC RBC Hgb Hct MCV MCH MCHC RDW Plt Count MPV Immature Gran % (Auto) Neut % (Auto) Lymph % (Auto) Mclennan % (Auto) Eos % (Auto) Baso % (Auto) Lymph # (Auto) Mclennan # (Auto) Eos # (Auto) Baso # (Auto) Abs Immat Gran (auto) Absolute Neuts (auto) Absolute Nucleated RBC Nucleated RBC % (auto) Sodium Potassium Chloride Carbon Dioxide Anion Gap BUN Creatinine Estim Creat Clear Calc Estimated GFR POC Glucose 297 H 320 H Random Glucose Calcium Magnesium Total Bilirubin AST ALT Alkaline Phosphatase Total Protein Albumin Urine Color Urine Appearance Urine pH Ur Specific [place] Urine Protein Urine Glucose (UA) Urine Ketones Urine Blood Urine Nitrite Ur Leukocyte Esterase Urine RBC Urine WBC Ur Squamous Epith Cells Urine Bacteria Hyaline Casts Salicylates Urine Opiates Screen Urine Fentanyl Screen Acetaminophen Ur Barbiturates Screen Ur Phencyclidine Scrn Ur Amphetamines Screen U Benzodiazepines Scrn Urine Cocaine Screen U Marijuana (THC) Screen Ethyl Alcohol COVID-19 ([facility]ERN) Negative COVID-19 Clin Com See Note 03/08/23 03/08/23 03/08/23 08:15 12:12 17:35 WBC RBC Hgb Hct MCV MCH MCHC RDW Plt Count MPV Immature Gran % (Auto) Neut % (Auto) Lymph % (Auto) Mclennan % (Auto) Eos % (Auto) Baso % (Auto) Lymph # (Auto) Mclennan # (Auto) Eos # (Auto) Baso # (Auto) Abs Immat Gran (auto) Absolute Neuts (auto) Absolute Nucleated RBC Nucleated RBC % (auto) Sodium Potassium Chloride Carbon Dioxide Anion Gap BUN Creatinine Estim Creat Clear Calc Estimated GFR POC Glucose 144 H 149 H 192 H Random Glucose Calcium Magnesium Total Bilirubin AST ALT Alkaline Phosphatase Total Protein Albumin Urine Color Urine Appearance Urine pH Ur Specific [place] Urine Protein Urine Glucose (UA) Urine Ketones Urine Blood Urine Nitrite Ur Leukocyte Esterase Urine RBC Urine WBC Ur Squamous Epith Cells Urine Bacteria Hyaline Casts Salicylates Urine Opiates Screen Urine Fentanyl Screen Acetaminophen Ur Barbiturates Screen Ur Phencyclidine Scrn Ur Amphetamines Screen U Benzodiazepines Scrn Urine Cocaine Screen U Marijuana (THC) Screen Ethyl Alcohol COVID-19 ([facility]) COVID-19 Clin Com 03/08/23 03/09/23 03/09/23 20:09 08:59 12:35 WBC RBC Hgb Hct MCV MCH MCHC RDW Plt Count MPV Immature Gran % (Auto) Neut % (Auto) Lymph % (Auto) Mclennan % (Auto) Eos % (Auto) Baso % (Auto) Lymph # (Auto) Mclennan # (Auto) Eos # (Auto) Baso # (Auto) Abs Immat Gran (auto) Absolute Neuts (auto) Absolute Nucleated RBC Nucleated RBC % (auto) Sodium Potassium Chloride Carbon Dioxide Anion Gap BUN Creatinine Estim Creat Clear Calc Estimated GFR POC Glucose 258 H 220 H 100 Random Glucose Calcium Magnesium Total Bilirubin AST ALT Alkaline Phosphatase Total Protein Albumin Urine Color Urine Appearance Urine pH Ur Specific [place] Urine Protein Urine Glucose (UA) Urine Ketones Urine Blood Urine Nitrite Ur Leukocyte Esterase Urine RBC Urine WBC Ur Squamous Epith Cells Urine Bacteria Hyaline Casts Salicylates Urine Opiates Screen Urine Fentanyl Screen Acetaminophen Ur Barbiturates Screen Ur Phencyclidine Scrn Ur Amphetamines Screen U Benzodiazepines Scrn Urine Cocaine Screen U Marijuana (THC) Screen Ethyl Alcohol COVID-19 ([facility]) COVID-19 Clin Com 03/09/23 03/09/23 03/10/23 17:42 21:14 07:54 WBC RBC Hgb Hct MCV MCH MCHC RDW Plt Count MPV Immature Gran % (Auto) Neut % (Auto) Lymph % (Auto) Mclennan % (Auto) Eos % (Auto) Baso % (Auto) Lymph # (Auto) Mclennan # (Auto) Eos # (Auto) Baso # (Auto) Abs Immat Gran (auto) Absolute Neuts (auto) Absolute Nucleated RBC Nucleated RBC % (auto) Sodium Potassium Chloride Carbon Dioxide Anion Gap BUN Creatinine Estim Creat Clear Calc Estimated GFR POC Glucose 131 H 187 H 181 H Random Glucose Calcium Magnesium Total Bilirubin AST ALT Alkaline Phosphatase Total Protein Albumin Urine Color Urine Appearance Urine pH Ur Specific [place] Urine Protein Urine Glucose (UA) Urine Ketones Urine Blood Urine Nitrite Ur Leukocyte Esterase Urine RBC Urine WBC Ur Squamous Epith Cells Urine Bacteria Hyaline Casts Salicylates Urine Opiates Screen Urine Fentanyl Screen Acetaminophen Ur Barbiturates Screen Ur Phencyclidine Scrn Ur Amphetamines Screen U Benzodiazepines Scrn Urine Cocaine Screen U Marijuana (THC) Screen Ethyl Alcohol COVID-19 ([facility]) COVID-19 Clin Com 03/10/23 03/10/23 03/10/23 12:59 17:43 22:08 WBC RBC Hgb Hct MCV MCH MCHC RDW Plt Count MPV Immature Gran % (Auto) Neut % (Auto) Lymph % (Auto) Mclennan % (Auto) Eos % (Auto) Baso % (Auto) Lymph # (Auto) Mclennan # (Auto) Eos # (Auto) Baso # (Auto) Abs Immat Gran (auto) Absolute Neuts (auto) Absolute Nucleated RBC Nucleated RBC % (auto) Sodium Potassium Chloride Carbon Dioxide Anion Gap BUN Creatinine Estim Creat Clear Calc Estimated GFR POC Glucose 118 H 200 H 161 H Random Glucose Calcium Magnesium Total Bilirubin AST ALT Alkaline Phosphatase Total Protein Albumin Urine Color Urine Appearance Urine pH Ur Specific [place] Urine Protein Urine Glucose (UA) Urine Ketones Urine Blood Urine Nitrite Ur Leukocyte Esterase Urine RBC Urine WBC Ur Squamous Epith Cells Urine Bacteria Hyaline Casts Salicylates Urine Opiates Screen Urine Fentanyl Screen Acetaminophen Ur Barbiturates Screen Ur Phencyclidine Scrn Ur Amphetamines Screen U Benzodiazepines Scrn Urine Cocaine Screen U Marijuana (THC) Screen Ethyl Alcohol COVID-19 ([facility]) COVID-19 Clin Com 03/11/23 03/11/23 03/11/23 05:16 08:23 12:33 WBC RBC Hgb Hct MCV MCH MCHC RDW Plt Count MPV Immature Gran % (Auto) Neut % (Auto) Lymph % (Auto) Mclennan % (Auto) Eos % (Auto) Baso % (Auto) Lymph # (Auto) Mclennan # (Auto) Eos # (Auto) Baso # (Auto) Abs Immat Gran (auto) Absolute Neuts (auto) Absolute Nucleated RBC Nucleated RBC % (auto) Sodium Potassium Chloride Carbon Dioxide Anion Gap BUN Creatinine Estim Creat Clear Calc Estimated GFR POC Glucose 147 H 171 H 117 H Random Glucose Calcium Magnesium Total Bilirubin AST ALT Alkaline Phosphatase Total Protein Albumin Urine Color Urine Appearance Urine pH Ur Specific [place] Urine Protein Urine Glucose (UA) Urine Ketones Urine Blood Urine Nitrite Ur Leukocyte Esterase Urine RBC Urine WBC Ur Squamous Epith Cells Urine Bacteria Hyaline Casts Salicylates Urine Opiates Screen Urine Fentanyl Screen Acetaminophen Ur Barbiturates Screen Ur Phencyclidine Scrn Ur Amphetamines Screen U Benzodiazepines Scrn Urine Cocaine Screen U Marijuana (THC) Screen Ethyl Alcohol COVID-19 ([facility]) COVID-19 Clin Com 03/11/23 03/11/23 03/12/23 17:20 20:50 07:44 WBC RBC Hgb Hct MCV MCH MCHC RDW Plt Count MPV Immature Gran % (Auto) Neut % (Auto) Lymph % (Auto) Mclennan % (Auto) Eos % (Auto) Baso % (Auto) Lymph # (Auto) Mclennan # (Auto) Eos # (Auto) Baso # (Auto) Abs Immat Gran (auto) Absolute Neuts (auto) Absolute Nucleated RBC Nucleated RBC % (auto) Sodium Potassium Chloride Carbon Dioxide Anion Gap BUN Creatinine Estim Creat Clear Calc Estimated GFR POC Glucose 107 225 H 136 H Random Glucose Calcium Magnesium Total Bilirubin AST ALT Alkaline Phosphatase Total Protein Albumin Urine Color Urine Appearance Urine pH Ur Specific [place] Urine Protein Urine Glucose (UA) Urine Ketones Urine Blood Urine Nitrite Ur Leukocyte Esterase Urine RBC Urine WBC Ur Squamous Epith Cells Urine Bacteria Hyaline Casts Salicylates Urine Opiates Screen Urine Fentanyl Screen Acetaminophen Ur Barbiturates Screen Ur Phencyclidine Scrn Ur Amphetamines Screen U Benzodiazepines Scrn Urine Cocaine Screen U Marijuana (THC) Screen Ethyl Alcohol COVID-19 ([facility]) COVID-19 Clin Com 03/12/23 03/12/23 03/12/23 12:02 17:23 20:53 WBC RBC Hgb Hct MCV MCH MCHC RDW Plt Count MPV Immature Gran % (Auto) Neut % (Auto) Lymph % (Auto) Mclennan % (Auto) Eos % (Auto) Baso % (Auto) Lymph # (Auto) Mclennan # (Auto) Eos # (Auto) Baso # (Auto) Abs Immat Gran (auto) Absolute Neuts (auto) Absolute Nucleated RBC Nucleated RBC % (auto) Sodium Potassium Chloride Carbon Dioxide Anion Gap BUN Creatinine Estim Creat Clear Calc Estimated GFR POC Glucose 135 H 124 H 167 H Random Glucose Calcium Magnesium Total Bilirubin AST ALT Alkaline Phosphatase Total Protein Albumin Urine Color Urine Appearance Urine pH Ur Specific [place] Urine Protein Urine Glucose (UA) Urine Ketones Urine Blood Urine Nitrite Ur Leukocyte Esterase Urine RBC Urine WBC Ur Squamous Epith Cells Urine Bacteria Hyaline Casts Salicylates Urine Opiates Screen Urine Fentanyl Screen Acetaminophen Ur Barbiturates Screen Ur Phencyclidine Scrn Ur Amphetamines Screen U Benzodiazepines Scrn Urine Cocaine Screen U Marijuana (THC) Screen Ethyl Alcohol COVID-19 ([facility]) COVID-19 Clin Com 03/13/23 03/13/23 03/13/23 08:02 09:12 12:30 WBC RBC Hgb Hct MCV MCH MCHC RDW Plt Count MPV Immature Gran % (Auto) Neut % (Auto) Lymph % (Auto) Mclennan % (Auto) Eos % (Auto) Baso % (Auto) Lymph # (Auto) Mclennan # (Auto) Eos # (Auto) Baso # (Auto) Abs Immat Gran (auto) Absolute Neuts (auto) Absolute Nucleated RBC Nucleated RBC % (auto) Sodium Potassium Chloride Carbon Dioxide Anion Gap BUN Creatinine 0.83 Estim Creat Clear Calc 101.7 Estimated GFR > 60 POC Glucose 125 H 133 H Random Glucose Calcium Magnesium Total Bilirubin AST ALT Alkaline Phosphatase Total Protein Albumin Urine Color Urine Appearance Urine pH Ur Specific [place] Urine Protein Urine Glucose (UA) Urine Ketones Urine Blood Urine Nitrite Ur Leukocyte Esterase Urine RBC Urine WBC Ur Squamous Epith Cells Urine Bacteria Hyaline Casts Salicylates Urine Opiates Screen Urine Fentanyl Screen Acetaminophen Ur Barbiturates Screen Ur Phencyclidine Scrn Ur Amphetamines Screen U Benzodiazepines Scrn Urine Cocaine Screen U Marijuana (THC) Screen Ethyl Alcohol COVID-19 ([facility]) COVID-19 Clin Com 03/13/23 03/13/23 03/14/23 17:23 20:52 07:44 WBC RBC Hgb Hct MCV MCH MCHC RDW Plt Count MPV Immature Gran % (Auto) Neut % (Auto) Lymph % (Auto) Mclennan % (Auto) Eos % (Auto) Baso % (Auto) Lymph # (Auto) Mclennan # (Auto) Eos # (Auto) Baso # (Auto) Abs Immat Gran (auto) Absolute Neuts (auto) Absolute Nucleated RBC Nucleated RBC % (auto) Sodium Potassium Chloride Carbon Dioxide Anion Gap BUN Creatinine Estim Creat Clear Calc Estimated GFR POC Glucose 132 H 169 H 101 Random Glucose Calcium Magnesium Total Bilirubin AST ALT Alkaline Phosphatase Total Protein Albumin Urine Color Urine Appearance Urine pH Ur Specific [place] Urine Protein Urine Glucose (UA) Urine Ketones Urine Blood Urine Nitrite Ur Leukocyte Esterase Urine RBC Urine WBC Ur Squamous Epith Cells Urine Bacteria Hyaline Casts Salicylates Urine Opiates Screen Urine Fentanyl Screen Acetaminophen Ur Barbiturates Screen Ur Phencyclidine Scrn Ur Amphetamines Screen U Benzodiazepines Scrn Urine Cocaine Screen U Marijuana (THC) Screen Ethyl Alcohol COVID-19 ([facility]) COVID-19 Clin Com 03/14/23 03/14/23 03/14/23 11:09 17:42 21:29 WBC RBC Hgb Hct MCV MCH MCHC RDW Plt Count MPV Immature Gran % (Auto) Neut % (Auto) Lymph % (Auto) Mclennan % (Auto) Eos % (Auto) Baso % (Auto) Lymph # (Auto) Mclennan # (Auto) Eos # (Auto) Baso # (Auto) Abs Immat Gran (auto) Absolute Neuts (auto) Absolute Nucleated RBC Nucleated RBC % (auto) Sodium Potassium Chloride Carbon Dioxide Anion Gap BUN Creatinine Estim Creat Clear Calc Estimated GFR POC Glucose 104 138 H 238 H Random Glucose Calcium Magnesium Total Bilirubin AST ALT Alkaline Phosphatase Total Protein Albumin Urine Color Urine Appearance Urine pH Ur Specific [place] Urine Protein Urine Glucose (UA) Urine Ketones Urine Blood Urine Nitrite Ur Leukocyte Esterase Urine RBC Urine WBC Ur Squamous Epith Cells Urine Bacteria Hyaline Casts Salicylates Urine Opiates Screen Urine Fentanyl Screen Acetaminophen Ur Barbiturates Screen Ur Phencyclidine Scrn Ur Amphetamines Screen U Benzodiazepines Scrn Urine Cocaine Screen U Marijuana (THC) Screen Ethyl Alcohol COVID-19 ([facility]) COVID-19 Clin Com 03/15/23 03/16/23 03/16/23 12:40 12:39 17:08 WBC RBC Hgb Hct MCV MCH MCHC RDW Plt Count MPV Immature Gran % (Auto) Neut % (Auto) Lymph % (Auto) Mclennan % (Auto) Eos % (Auto) Baso % (Auto) Lymph # (Auto) Mclennan # (Auto) Eos # (Auto) Baso # (Auto) Abs Immat Gran (auto) Absolute Neuts (auto) Absolute Nucleated RBC Nucleated RBC % (auto) Sodium Potassium Chloride Carbon Dioxide Anion Gap BUN Creatinine Estim Creat Clear Calc Estimated GFR POC Glucose 97 87 137 H Random Glucose Calcium Magnesium Total Bilirubin AST ALT Alkaline Phosphatase Total Protein Albumin Urine Color Urine Appearance Urine pH Ur Specific [place] Urine Protein Urine Glucose (UA) Urine Ketones Urine Blood Urine Nitrite Ur Leukocyte Esterase Urine RBC Urine WBC Ur Squamous Epith Cells Urine Bacteria Hyaline Casts Salicylates Urine Opiates Screen Urine Fentanyl Screen Acetaminophen Ur Barbiturates Screen Ur Phencyclidine Scrn Ur Amphetamines Screen U Benzodiazepines Scrn Urine Cocaine Screen U Marijuana (THC) Screen Ethyl Alcohol COVID-19 ([facility]) COVID-19 Clin Com 03/17/23 03/17/23 03/17/23 12:34 17:27 20:09 WBC RBC Hgb Hct MCV MCH MCHC RDW Plt Count MPV Immature Gran % (Auto) Neut % (Auto) Lymph % (Auto) Mclennan % (Auto) Eos % (Auto) Baso % (Auto) Lymph # (Auto) Mclennan # (Auto) Eos # (Auto) Baso # (Auto) Abs Immat Gran (auto) Absolute Neuts (auto) Absolute Nucleated RBC Nucleated RBC % (auto) Sodium Potassium Chloride Carbon Dioxide Anion Gap BUN Creatinine Estim Creat Clear Calc Estimated GFR POC Glucose 83 159 H 133 H Random Glucose Calcium Magnesium Total Bilirubin AST ALT Alkaline Phosphatase Total Protein Albumin Urine Color Urine Appearance Urine pH Ur Specific [place] Urine Protein Urine Glucose (UA) Urine Ketones Urine Blood Urine Nitrite Ur Leukocyte Esterase Urine RBC Urine WBC Ur Squamous Epith Cells Urine Bacteria Hyaline Casts Salicylates Urine Opiates Screen Urine Fentanyl Screen Acetaminophen Ur Barbiturates Screen Ur Phencyclidine Scrn Ur Amphetamines Screen U Benzodiazepines Scrn Urine Cocaine Screen U Marijuana (THC) Screen Ethyl Alcohol COVID-19 (FERN) COVID-19 Clin Com 03/18/23 03/18/23 03/19/23 12:23 17:19 06:22 WBC RBC Hgb Hct MCV MCH MCHC RDW Plt Count MPV Immature Gran % (Auto) Neut % (Auto) Lymph % (Auto) Mclennan % (Auto) Eos % (Auto) Baso % (Auto) Lymph # (Auto) Mclennan # (Auto) Eos # (Auto) Baso # (Auto) Abs Immat Gran (auto) Absolute Neuts (auto) Absolute Nucleated RBC Nucleated RBC % (auto) Sodium Potassium Chloride Carbon Dioxide Anion Gap BUN Creatinine Estim Creat Clear Calc Estimated GFR POC Glucose 221 H 118 H 108 Random Glucose Calcium Magnesium Total Bilirubin AST ALT Alkaline Phosphatase Total Protein Albumin Urine Color Urine Appearance Urine pH Ur Specific [place] Urine Protein Urine Glucose (UA) Urine Ketones Urine Blood Urine Nitrite Ur Leukocyte Esterase Urine RBC Urine WBC Ur Squamous Epith Cells Urine Bacteria Hyaline Casts Salicylates Urine Opiates Screen Urine Fentanyl Screen Acetaminophen Ur Barbiturates Screen Ur Phencyclidine Scrn Ur Amphetamines Screen U Benzodiazepines Scrn Urine Cocaine Screen U Marijuana (THC) Screen Ethyl Alcohol COVID-19 (FERN) COVID-19 Clin Com 03/19/23 03/19/23 03/19/23 09:11 09:57 17:26 WBC RBC Hgb Hct MCV MCH MCHC RDW Plt Count MPV Immature Gran % (Auto) Neut % (Auto) Lymph % (Auto) Mclennan % (Auto) Eos % (Auto) Baso % (Auto) Lymph # (Auto) Mclennan # (Auto) Eos # (Auto) Baso # (Auto) Abs Immat Gran (auto) Absolute Neuts (auto) Absolute Nucleated RBC Nucleated RBC % (auto) Sodium Potassium Chloride Carbon Dioxide Anion Gap BUN Creatinine 0.90 Estim Creat Clear Calc 94.5 Estimated GFR > 60 POC Glucose 98 173 H Random Glucose Calcium Magnesium Total Bilirubin AST ALT Alkaline Phosphatase Total Protein Albumin Urine Color Urine Appearance Urine pH Ur Specific [place] Urine Protein Urine Glucose (UA) Urine Ketones Urine Blood Urine Nitrite Ur Leukocyte Esterase Urine RBC Urine WBC Ur Squamous Epith Cells Urine Bacteria Hyaline Casts Salicylates Urine Opiates Screen Urine Fentanyl Screen Acetaminophen Ur Barbiturates Screen Ur Phencyclidine Scrn Ur Amphetamines Screen U Benzodiazepines Scrn Urine Cocaine Screen U Marijuana (THC) Screen Ethyl Alcohol COVID-19 (FERN) COVID-19 Clin Com 03/20/23 03/20/23 03/20/23 11:54 16:36 21:36 WBC RBC Hgb Hct MCV MCH MCHC RDW Plt Count MPV Immature Gran % (Auto) Neut % (Auto) Lymph % (Auto) Mclennan % (Auto) Eos % (Auto) Baso % (Auto) Lymph # (Auto) Mclennan # (Auto) Eos # (Auto) Baso # (Auto) Abs Immat Gran (auto) Absolute Neuts (auto) Absolute Nucleated RBC Nucleated RBC % (auto) Sodium Potassium Chloride Carbon Dioxide Anion Gap BUN Creatinine Estim Creat Clear Calc Estimated GFR POC Glucose 190 H 119 H 266 H Random Glucose Calcium Magnesium Total Bilirubin AST ALT Alkaline Phosphatase Total Protein Albumin Urine Color Urine Appearance Urine pH Ur Specific [place] Urine Protein Urine Glucose (UA) Urine Ketones Urine Blood Urine Nitrite Ur Leukocyte Esterase Urine RBC Urine WBC Ur Squamous Epith Cells Urine Bacteria Hyaline Casts Salicylates Urine Opiates Screen Urine Fentanyl Screen Acetaminophen Ur Barbiturates Screen Ur Phencyclidine Scrn Ur Amphetamines Screen U Benzodiazepines Scrn Urine Cocaine Screen U Marijuana (THC) Screen Ethyl Alcohol COVID-19 (F[facility]) COVID-19 Clin Com Airway Mallampati Class: II TM Dist: >3cm Neck ROM: Full Denture: Upper and Lower Heart: rrr Lungs: cta Assessment and Plan Assessment Anesthesia Assessment: Anesthesia Plan Discussed and Chart Reviewed Final Anesthetic Review Family History of Problems with Anesthesia: No History of Problems with Anesthesia: No NPO: Yes ASA Class: III Final Preanesthetic Review: No Changes in Pt Med Stat, Meds/Allgs Chart Reviewed and Consent Obtained/Reviewed Patient Risk: Intermediate Procedure Risk: Intermediate Anesthetic Plan Anesthetic Plan: GA Disposition: Standard PACU
--- NOTE | 2023-03-21 07:46 | MHC.SHP ---
Pre-Procedural Eval Section A Date of Service: 03/21/23 The patient is an INPATIENT: Yes Changes since office visit: Yes Changes in Medication and Yes Patient answered all questions; No Cold of Flu in the past 2 weeks and No New Medical Problems The History & Physical has been completed within 30 days and I have reviewed it.: Yes Section B Chief Complaint: LBBB, pre ECT Allergies: Allergies Allergy/AdvReac Type Severity Reaction Status Date / Time codeine [CODEINE] Allergy Unknown delayed Verified 11/25/22 10:40 responses 02/24/17 Plan I have reviewed the history and physical and performed a pertinent physical examination on my patient. No changes have occurred unless specified. Time Spent With Patient Time: Total time managing care of this patient today ____ minutes.
--- NOTE | 2023-03-21 07:46 | HO.ECTPROC ---
ECT Procedure Note Diagnosis/Treatment Date of Service: 03/21/23 Diagnosis: Major Depressive Disorder Previous ECT Date: 03/19/23 Current Treatment Number: 3 Treatment: Series Interval Clinical Notes: pt with some decrease in racing thoughts Time: Total time managing care of this patient today ____ minutes. ECT Settings Device: THYMATRON DGx Electrode Placement: Right Unilateral Program/Pulse Width: 0.50 Energy Percent: 80 Seizure Duration By EEG (in seconds): 40 Medications Administration General Anesthetic: Etomidate (14) Muscle Relaxant: Succinylcholine (140) and Rocuronium (5) Ancillary Medications Analgesics: Torodol - Pre ECT (30 mg) Anti-emetics: Zofran - Pre ECT Airway Management Airway Management: LMA Treatment Recommendations No Changes Recommended: No change Notes: cont tx series Pt Tolerated Procedure w/o Issue: Yes
[2023-03-21 07:52] LABS: Glucose, Whole Blood 86 mg/dL (60-115)
[2023-03-21] MEDS: Throat Lozenge, Medicated LOZENGE 1 LOZENGE MUCOUS MEM ×4 (10:16→21:47)
[2023-03-21] MEDS: buPROPion HCl XL 150 MG TAB.ER.24H PO (10:32)
[2023-03-21] MEDS: Valsartan 160 MG TABLET PO (10:33)
[2023-03-21] MEDS: SITagliptin Phosphate 50 MG TABLET PO (10:33)
[2023-03-21] MEDS: amLODIPine Besylate 10 MG TABLET PO (10:33)
[2023-03-21] MEDS: buPROPion HCl XL 300 MG TAB.ER.24H PO (10:33)
[2023-03-21] MEDS: hydrALAZINE HCl 25 MG TABLET PO ×3 (10:33→21:46)
[2023-03-21] MEDS: DULoxetine HCl 30 MG CAPSULE.DR PO (10:33)
[2023-03-21] MEDS: metFORMIN HCl ER 500 MG TAB.ER.24H 1000 MG PO ×2 (10:33→21:46)
[2023-03-21 12:53] LABS: Glucose, Whole Blood 154 mg/dL (60-115)
--- NOTE | 2023-03-21 15:02 | HO.PSYCHPN ---
Subjective Subjective Date of Service: 03/21/23 Reason For Visit: LBBB, pre ECT Interim History: flat, no change in presentation. planning to discharge to home on friday after ECT #4. asking about referral to [facility]. upset with his roommate, interested in room switch. per staff, no issues, no change in presentation. Mental Status Exam Mental Status Exam Narrative: calm cooperative. appropriately dressed and groomed. slight PMR. speech decr in rate, decr amount, nml loudness, flattened tone, slightly incr latency. thoughts linear and logical. affect flat, consistent with context, hypo-intense, non-labile. no SI/SIBI/HI/AVH expressed. Diagnostics Vital Signs (24Hr): Vital Signs - 24 hr 03/20/23 20:20 03/21/23 07:07 03/21/23 07:07 Temperature 97 F 97.3 F 96.7 F L Pulse Rate 89 100 99 Respiratory Rate 16 18 16 Blood Pressure 138/70 129/75 152/83 H Pulse Oximetry 99 98 Oxygen Delivery Method Room Air Room Air Oxygen Flow Rate 03/21/23 08:15 03/21/23 08:20 03/21/23 08:25 Temperature 98.6 F Pulse Rate 91 94 87 Respiratory Rate 24 H 24 H 23 H Blood Pressure 169/92 H 146/88 H 135/82 Pulse Oximetry 97 97 98 Oxygen Delivery Method Nasal Cannula with ETCO2 Nasal Cannula with ETCO2 Nasal Cannula with ETCO2 Oxygen Flow Rate 2 2 2 03/21/23 08:30 03/21/23 08:45 03/21/23 09:15 Temperature 98.6 F 97.2 F Pulse Rate 95 91 86 Respiratory Rate 21 H 20 16 Blood Pressure 135/82 142/80 H 141/76 H Pulse Oximetry 96 96 96 Oxygen Delivery Method Room Air Room Air Room Air Oxygen Flow Rate BMI result Body Mass Index 28.0 Labs 03/07/23 12:23 03/19/23 09:57 Labs: Laboratory Results - last 48 hr 03/19/23 03/20/23 03/20/23 17:26 11:54 16:36 POC Glucose 173 H 190 H 119 H 03/20/23 03/21/23 03/21/23 21:36 07:49 12:48 POC Glucose 266 H 86 154 H Medications Medications Current Medications Acetaminophen (Acetaminophen 325 Mg Tablet) 650 mg PO Q6H PRN PRN Reason: Headache/Pain Mild Scale (1-3) Last Admin: 03/19/23 01:14 Dose: 650 mg Al Hydroxide/Mg Hydroxide (Magnesium Hydrox/Alum Hydrox 30 Ml Oral.Susp) 30 ml PO Q6H PRN PRN Reason: Heartburn/Nausea Amlodipine Besylate (Amlodipine Besylate 10 Mg Tablet) 10 mg PO DAILY [facility]; Protocol Last Admin: 03/21/23 10:33 Dose: 10 mg Aripiprazole (Aripiprazole 5 Mg Tablet) 5 mg PO BEDTIME [facility] Last Admin: 03/20/23 21:59 Dose: 5 mg Benzocaine (Throat Lozenge, Medicated Lozenge) 1 lozenge MUCOUS MEM Q1H PRN PRN Reason: Sore Throat Last Admin: 03/21/23 15:01 Dose: 1 lozenge Bupropion HCl (Bupropion Hcl Xl 150 Mg Tab.Er.24h) 150 mg PO DAILY [facility] Last Admin: 03/21/23 10:32 Dose: 150 mg Bupropion HCl (Bupropion Hcl Xl 300 Mg Tab.Er.24h) 300 mg PO DAILY [facility] Last Admin: 03/21/23 10:33 Dose: 300 mg Duloxetine HCl (Duloxetine Hcl 30 Mg Capsule.Dr) 30 mg PO DAILY [facility] Last Admin: 03/21/23 10:33 Dose: 30 mg Hydralazine HCl (Hydralazine Hcl 25 Mg Tablet) 25 mg PO TID [facility]; Protocol Last Admin: 03/21/23 15:01 Dose: 25 mg Hydroxyzine HCl (Hydroxyzine Hcl 25 Mg Tablet) 25 mg PO Q6H PRN PRN Reason: Anxiety Last Admin: 03/18/23 00:53 Dose: 25 mg Lactated Ringer's (Lr) 1,000 mls @ 50 mls/hr IVCONT .Q20H [facility] Last Admin: 03/21/23 11:25 Dose: Not Given Insulin Human Lispro (Insulin Lispro 100 Unit/Ml 3 Ml Vial) 0 unit SUBCUT QIDACHS [facility]; Protocol Last Admin: 03/21/23 13:38 Dose: Not Given Magnesium Hydroxide (Milk Of Magnesia 30 Ml Oral.Susp) 30 ml PO DAILY PRN PRN Reason: Constipation Meclizine HCl (Meclizine Hcl 25 Mg Tablet) 25 mg PO Q6H PRN PRN Reason: dizziness Last Admin: 03/11/23 10:43 Dose: 25 mg Melatonin (Melatonin 3 Mg Tablet) 6 mg PO BEDTIME PRN PRN Reason: Insomnia Last Admin: 03/19/23 21:30 Dose: 6 mg Metformin HCl (Metformin Hcl Er 500 Mg Tab.Er.24h) 1,000 mg PO BID [facility] Last Admin: 03/21/23 10:33 Dose: 1,000 mg Mirtazapine (Mirtazapine 15 Mg Tablet) 15 mg PO BEDTIME [facility] Last Admin: 03/20/23 21:59 Dose: 15 mg Nicotine (Nicotine 21 Mg Patch.Td24) 21 mg TRANSDERMA DAILY PRN PRN Reason: smoking cessation Nicotine Polacrilex (Nicotine Polacrilex 2 Mg Gum) 4 mg BUCCAL Q2H PRN PRN Reason: Nicotine Cravings Pt Own (Dulaglutide [Trulicity] 1.5 Mg/0 .5 Ml Pen Injector) 1.5 mg SUBCUT Fr [facility] Last Admin: 03/15/23 19:32 Dose: 1.5 mg Sitagliptin Phosphate (Sitagliptin Phosphate 50 Mg Tablet) 50 mg PO DAILY [facility] Last Admin: 03/21/23 10:33 Dose: 50 mg Valsartan (Valsartan 160 Mg Tablet) 160 mg PO DAILY [facility]; Protocol Last Admin: 03/21/23 10:33 Dose: 160 mg Allergies Allergies Allergy/AdvReac Type Severity Reaction Status Date / Time codeine [CODEINE] Allergy Unknown delayed Verified 11/25/22 10:40 responses 02/24/17 Assessment & Plan Assessment & Plan (1) Major depressive disorder, recurrent severe without psychotic features: Status: Acute Code(s): F33.2 - Major depressive disorder, recurrent severe without psychotic features Plan 57 year old man who lives in [place] and 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 Patient with a history of Major Depression, recurrent and several inpatient psychiatric hospitalizations, the last of which was last summer. He was brought to the ED by ambulance. He had been talking to his residence life director, Abigail Odonnell POWERHOUSE MECHANIC SUPERVISOR at [facility] and voiced SI and was making reference to his life insurance policy. This prompted her to call EMS and he was taken to the ED. He reports he had a plan of either hanging himself or cutting his wrist. 03/08:? Collaterals from .? Collateral with Abigail atkinson medication adjustments.? Consider ECT.? Psychoeducation given.? No medication changes for now. 03/09: Continue treatment plan. 03/10:? get clearance for ECT.? repeat EKG due to prolonged QTc.? was recently started on cymbalta 20 mg daily, not picked up from pharmacy.? will d/w patient starting or not the medication. 03/11:? cardiomyopathy with slightly reduced EF, no other medical concerns for ECT.? prolonged QTc, but with LBBB so corrected QT is 337.? start cymbalta 30 mg daily as initiated by outpt provider.? start meclizine PRN dizziness. 03/12:? intermediate risk per cardiology.? pt remains interested in pursuing ECT.? consult placed for [facility].? continue current mgmt. 03/13:? increase abilify to 5 mg daily for adjunctive anti-depressant effect.? ECT #1 scheduled for tomorrow. 03/14:? ECT #1 completed, uneventful.? abilify dosing increased as of today.? continue current mgmt. ? ECT #2 for next . 03/15: Continue current plans and regimen 03/16: Continue current plans and regimen 03/18: ECT #2 for tomorrow. remains dysphoric, expressing safety concerns to staff. DC trazodone. start remeron 15. incr melatonin to 6. 03/19: s/p ECT #2 this morning. tired, sleeping mid-morning. heard he will not be losing his job. continue current mgmt. 03/20: improving mood, more socially active, more energy. continue current mgmt. planning to discharge home next friday, the day after ECT #4. 03/21: ECT #3 completed today. perhaps up and about the unit more, but continues ot have flat affect and dearth of speech/expression. ECT #4 friday. Reason for continued inpatient stay Substantial Risk for: inability to function and rapid decompensation Time Spent With Patient Time: Total time managing care of this patient today ____ minutes.
[2023-03-21 17:57] LABS: Glucose, Whole Blood 171 mg/dL (60-115)
[2023-03-21] MEDS: Insulin Lispro 100 UNIT/ML 3 ML VIAL SUBCUT (18:11)
[2023-03-21] MEDS: Melatonin 3 MG TABLET 6 MG PO (21:46)
[2023-03-21] MEDS: Mirtazapine 15 MG TABLET PO (21:46)
[2023-03-21] MEDS: ARIPiprazole 5 MG TABLET PO (21:46)
[2023-03-22] MEDS: Throat Lozenge, Medicated LOZENGE 1 LOZENGE MUCOUS MEM ×6 (00:13→21:23)
[2023-03-22 06:00] VITALS: BP 127/77; PULSE 86; RESP 16; TEMP 36.3; O2SAT 96
[2023-03-22 08:36] LABS: Glucose, Whole Blood 121 mg/dL (60-115)
[2023-03-22] MEDS: SITagliptin Phosphate 50 MG TABLET PO (09:22)
[2023-03-22] MEDS: metFORMIN HCl ER 500 MG TAB.ER.24H 1000 MG PO ×2 (09:23→21:23)
[2023-03-22] MEDS: Valsartan 160 MG TABLET PO (09:23)
[2023-03-22] MEDS: amLODIPine Besylate 10 MG TABLET PO (09:23)
[2023-03-22] MEDS: buPROPion HCl XL 300 MG TAB.ER.24H PO (09:23)
[2023-03-22] MEDS: buPROPion HCl XL 150 MG TAB.ER.24H PO (09:23)
[2023-03-22] MEDS: DULoxetine HCl 30 MG CAPSULE.DR PO (09:23)
[2023-03-22] MEDS: hydrALAZINE HCl 25 MG TABLET PO ×3 (09:23→21:24)
--- NOTE | 2023-03-22 10:13 | PC.NURSE ---
Report received from Mary Ellen INGRAM that pt's Trulicity was in pharmacy. 0 dose from previous shift was not charted on, and pt reported he did not get it last night because his needed to drop it off. Pharmacy verified that medication had not been delivered. RN spoke with pt's Rosina, who reported that she would be bringing it in today.
[2023-03-22 12:01] LABS: Glucose, Whole Blood 220 mg/dL (60-115)
[2023-03-22] MEDS: Insulin Lispro 100 UNIT/ML 3 ML VIAL SUBCUT (12:48)
[2023-03-22 15:12] VITALS: BP 129/64; PULSE 93; RESP 16; O2SAT 96
--- NOTE | 2023-03-22 16:29 | P.PNPSI_ITS ---
Subjective Subjective Date of Service: 03/22/23 Reason For Visit: LBBB, pre ECT Subjective Notes: Conditional Voluntary Medical Problems Affecting Mental Status: No Interim History: met with patient. Discussed with Nursing. Attending groups more often. Pleasant. With aligner typewriter reports feeling positive regarding ECT treatments. Main side effect is a sore throat from general anesthesia process. Will order spray in addition to lozenges. Reports anxiety is getting less and his thinking is more organized and clear. Denies SI. Denies psychosis. Medication Compliance: Yes Side effects from medications: No Attending Groups: Yes Review of Systems Acute medical concerns: No Review of Systems Review of Systems Sore throat Mental Status Exam Mental Status Exam Narrative: pleasant. Engaged. Fairly presented. Still depressed and anxious but improving. No SI. No HI. No agitation. No psychosis. Insight and judgment good Diagnostics Vital Signs (24Hr): Vital Signs - 24 hr 03/21/23 20:30 03/22/23 06:00 03/22/23 15:12 Temperature 97.8 F 97.3 F Pulse Rate 100 86 93 Respiratory Rate 18 16 16 Blood Pressure 135/65 127/77 129/64 Pulse Oximetry 96 96 96 Oxygen Delivery Method Room Air Room Air Room Air BMI result Body Mass Index 28.0 Labs 03/07/23 12:23 03/19/23 09:57 Labs: Laboratory Results - last 48 hr 03/20/23 03/20/23 03/21/23 16:36 21:36 07:49 POC Glucose 119 H 266 H 86 03/21/23 03/21/23 03/22/23 12:48 17:53 08:10 POC Glucose 154 H 171 H 121 H 03/22/23 11:57 POC Glucose 220 H Medications Medications Current Medications Acetaminophen (Acetaminophen 325 Mg Tablet) 650 mg PO Q6H PRN PRN Reason: Headache/Pain Mild Scale (1-3) Last Admin: 03/19/23 01:14 Dose: 650 mg Al Hydroxide/Mg Hydroxide (Magnesium Hydrox/Alum Hydrox 30 Ml Oral.Susp) 30 ml PO Q6H PRN PRN Reason: Heartburn/Nausea Amlodipine Besylate (Amlodipine Besylate 10 Mg Tablet) 10 mg PO DAILY [facility]; Protocol Last Admin: 03/22/23 09:23 Dose: 10 mg Aripiprazole (Aripiprazole 5 Mg Tablet) 5 mg PO BEDTIME [facility] Last Admin: 03/21/23 21:46 Dose: 5 mg Benzocaine (Throat Lozenge, Medicated Lozenge) 1 lozenge MUCOUS MEM Q1H PRN PRN Reason: Sore Throat Last Admin: 03/22/23 13:11 Dose: 1 lozenge Bupropion HCl (Bupropion Hcl Xl 150 Mg Tab.Er.24h) 150 mg PO DAILY [facility] Last Admin: 03/22/23 09:23 Dose: 150 mg Bupropion HCl (Bupropion Hcl Xl 300 Mg Tab.Er.24h) 300 mg PO DAILY [facility] Last Admin: 03/22/23 09:23 Dose: 300 mg Duloxetine HCl (Duloxetine Hcl 30 Mg Capsule.Dr) 30 mg PO DAILY [facility] Last Admin: 03/22/23 09:23 Dose: 30 mg Hydralazine HCl (Hydralazine Hcl 25 Mg Tablet) 25 mg PO TID [facility]; Protocol Last Admin: 03/22/23 15:14 Dose: 25 mg Hydroxyzine HCl (Hydroxyzine Hcl 25 Mg Tablet) 25 mg PO Q6H PRN PRN Reason: Anxiety Last Admin: 03/18/23 00:53 Dose: 25 mg Lactated Ringer's (Lr) 1,000 mls @ 50 mls/hr IVCONT .Q20H [facility] Last Admin: 03/22/23 05:04 Dose: Not Given Insulin Human Lispro (Insulin Lispro 100 Unit/Ml 3 Ml Vial) 0 unit SUBCUT QIDACHS [facility]; Protocol Last Admin: 03/22/23 12:48 Dose: 4 unit Magnesium Hydroxide (Milk Of Magnesia 30 Ml Oral.Susp) 30 ml PO DAILY PRN PRN Reason: Constipation Meclizine HCl (Meclizine Hcl 25 Mg Tablet) 25 mg PO Q6H PRN PRN Reason: dizziness Last Admin: 03/11/23 10:43 Dose: 25 mg Melatonin (Melatonin 3 Mg Tablet) 6 mg PO BEDTIME PRN PRN Reason: Insomnia Last Admin: 03/21/23 21:46 Dose: 6 mg Metformin HCl (Metformin Hcl Er 500 Mg Tab.Er.24h) 1,000 mg PO BID [facility] Last Admin: 03/22/23 09:23 Dose: 1,000 mg Mirtazapine (Mirtazapine 15 Mg Tablet) 15 mg PO BEDTIME [facility] Last Admin: 03/21/23 21:46 Dose: 15 mg Nicotine (Nicotine 21 Mg Patch.Td24) 21 mg TRANSDERMA DAILY PRN PRN Reason: smoking cessation Nicotine Polacrilex (Nicotine Polacrilex 2 Mg Gum) 4 mg BUCCAL Q2H PRN PRN Reason: Nicotine Cravings Pt Own (Dulaglutide [Trulicity] 1.5 Mg/0 .5 Ml Pen Injector) 1.5 mg SUBCUT Fr [facility] Last Admin: 03/22/23 10:13 Dose: Not Given Sitagliptin Phosphate (Sitagliptin Phosphate 50 Mg Tablet) 50 mg PO DAILY [facility] Last Admin: 03/22/23 09:22 Dose: 50 mg Valsartan (Valsartan 160 Mg Tablet) 160 mg PO DAILY [facility]; Protocol Last Admin: 03/22/23 09:23 Dose: 160 mg Allergies Allergies Allergy/AdvReac Type Severity Reaction Status Date / Time codeine [CODEINE] Allergy Unknown delayed Verified 11/25/22 10:40 responses 02/24/17 Assessment & Plan Assessment & Plan (1) Major depressive disorder, recurrent severe without psychotic features: Status: Acute Code(s): F33.2 - Major depressive disorder, recurrent severe without psychotic features Plan 57 year old man who lives in [place] and 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 Patient with a history of Major Depression, recurrent and several inpatient psychiatric hospitalizations, the last of which was last summer. He was brought to the ED by ambulance. He had been talking to his entry clerk, Abigail Odonnell EQUITY HOLDER at [facility] and voiced SI and was making reference to his life insurance policy. This prompted her to call EMS and he was taken to the ED. He reports he had a plan of either hanging himself or cutting his wrist. 03/08:? Collaterals from .? Collateral with Abigail atkinson medication adjustments.? Consider ECT.? Psychoeducation given.? No medication changes for now. 03/09: Continue treatment plan. 03/10:? get clearance for ECT.? repeat EKG due to prolonged QTc.? was recently started on cymbalta 20 mg daily, not picked up from pharmacy.? will d/w patient starting or not the medication. 03/11:? cardiomyopathy with slightly reduced EF, no other medical concerns for ECT.? prolonged QTc, but with LBBB so corrected QT is 337.? start cymbalta 30 mg daily as initiated by outpt provider.? start meclizine PRN dizziness. 03/12:? intermediate risk per cardiology.? pt remains interested in pursuing ECT.? consult placed for [facility].? continue current mgmt. 03/13:? increase abilify to 5 mg daily for adjunctive anti-depressant effect.? ECT #1 scheduled for tomorrow. 03/14:? ECT #1 completed, uneventful.? abilify dosing increased as of today.? continue current mgmt. ? ECT #2 for next . 03/15: Continue current plans and regimen 03/16: Continue current plans and regimen 03/18: ECT #2 for tomorrow. remains dysphoric, expressing safety concerns to staff. DC trazodone. start remeron 15. incr melatonin to 6. 03/19: s/p ECT #2 this morning. tired, sleeping mid-morning. heard he will not be losing his job. continue current mgmt. 03/20: improving mood, more socially active, more energy. continue current mgmt. planning to discharge home next friday, the day after ECT #4. 03/21: ECT #3 completed today. perhaps up and about the unit more, but continues ot have flat affect and dearth of speech/expression. ECT #4 friday. 03/22/2023: No changes to current plan with ECT 4 planned for 03/24/2023. Will order throat spray in addition to lozenges for throat discomfort. Reason for continued inpatient stay Substantial Risk for: rapid decompensation Time Spent With Patient Time: Total time managing care of this patient today ____ minutes.
[2023-03-22] MEDS: PT OWN (Dulaglutide [Trulicity] 1.5 mg/0.5 mL pen injector) 1.5 EACH SUBCUT (17:32)
[2023-03-22] MEDS: Throat Spray, Medicated 177 ML BOTTLE 1 SPRAY MUCOUS MEM (17:36)
[2023-03-22 17:43] LABS: Glucose, Whole Blood 137 mg/dL (60-115)
[2023-03-22 19:55] VITALS: BP 143/74; PULSE 85; RESP 18; TEMP 36.2; O2SAT 97
[2023-03-22] MEDS: Melatonin 3 MG TABLET 6 MG PO (21:24)
[2023-03-22] MEDS: Mirtazapine 15 MG TABLET PO (21:24)
[2023-03-22] MEDS: ARIPiprazole 5 MG TABLET PO (21:24)
[2023-03-23 08:26] LABS: Glucose, Whole Blood 112 mg/dL (60-115)
[2023-03-23 08:41] VITALS: BP 139/76; PULSE 97; RESP 18; TEMP 36.6; O2SAT 99
[2023-03-23] MEDS: hydrALAZINE HCl 25 MG TABLET PO ×3 (08:44→21:30)
[2023-03-23] MEDS: buPROPion HCl XL 300 MG TAB.ER.24H PO (08:44)
[2023-03-23] MEDS: Valsartan 160 MG TABLET PO (08:44)
[2023-03-23] MEDS: amLODIPine Besylate 10 MG TABLET PO (08:45)
[2023-03-23] MEDS: SITagliptin Phosphate 50 MG TABLET PO (08:45)
[2023-03-23] MEDS: buPROPion HCl XL 150 MG TAB.ER.24H PO (08:45)
[2023-03-23] MEDS: metFORMIN HCl ER 500 MG TAB.ER.24H 1000 MG PO ×2 (08:45→21:31)
[2023-03-23] MEDS: DULoxetine HCl 30 MG CAPSULE.DR PO (08:45)
[2023-03-23] MEDS: Throat Lozenge, Medicated LOZENGE 1 LOZENGE MUCOUS MEM ×2 (09:21→19:03)
[2023-03-23 12:13] LABS: Glucose, Whole Blood 146 mg/dL (60-115)
[2023-03-23 15:00] VITALS: BP 117/58; PULSE 93; RESP 18
--- NOTE | 2023-03-23 16:30 | P.PNPSI_ITS ---
Subjective Subjective Date of Service: 03/23/23 Reason For Visit: LBBB, pre ECT Interim History: met with patient. Discussed with Nursing. Pleasant and feeling positive regarding ECT treatments. Reports anxiety is getting less and his thinking is more organized and clear. Denies SI. Denies psychosis. Main side effect is a sore throat from general anesthesia process- much better with spray and throat lozenges. Medication Compliance: Yes Side effects from medications: No Attending Groups: Intermittent Review of Systems Acute medical concerns: No Review of Systems Review of Systems unremarkable Mental Status Exam Mental Status Exam Narrative: pleasant. Engaged. Fairly presented. Still depressed and anxious but improving. No SI. No HI. No agitation. No psychosis. Insight and judgment good Diagnostics Vital Signs (24Hr): Vital Signs - 24 hr 03/22/23 19:55 03/23/23 08:41 03/23/23 15:00 Temperature 97.2 F 97.8 F Pulse Rate 85 97 93 Respiratory Rate 18 18 18 Blood Pressure 143/74 H 139/76 117/58 L Pulse Oximetry 97 99 Oxygen Delivery Method Room Air Room Air BMI result Body Mass Index 28.0 Labs 03/07/23 12:23 03/19/23 09:57 Labs: Laboratory Results - last 48 hr 03/21/23 03/22/23 03/22/23 17:53 08:10 11:57 POC Glucose 171 H 121 H 220 H 03/22/23 03/23/23 03/23/23 17:35 08:14 12:09 POC Glucose 137 H 112 146 H Medications Medications Current Medications Acetaminophen (Acetaminophen 325 Mg Tablet) 650 mg PO Q6H PRN PRN Reason: Headache/Pain Mild Scale (1-3) Last Admin: 03/19/23 01:14 Dose: 650 mg Al Hydroxide/Mg Hydroxide (Magnesium Hydrox/Alum Hydrox 30 Ml Oral.Susp) 30 ml PO Q6H PRN PRN Reason: Heartburn/Nausea Amlodipine Besylate (Amlodipine Besylate 10 Mg Tablet) 10 mg PO DAILY MICHELLE; Protocol Last Admin: 03/23/23 08:45 Dose: 10 mg Aripiprazole (Aripiprazole 5 Mg Tablet) 5 mg PO BEDTIME [facility]HELLE Last Admin: 03/22/23 21:24 Dose: 5 mg Benzocaine (Throat Lozenge, Medicated Lozenge) 1 lozenge MUCOUS MEM Q1H PRN PRN Reason: Sore Throat Last Admin: 03/23/23 09:21 Dose: 1 lozenge Bupropion HCl (Bupropion Hcl Xl 150 Mg Tab.Er.24h) 150 mg PO DAILY [facility] Last Admin: 03/23/23 08:45 Dose: 150 mg Bupropion HCl (Bupropion Hcl Xl 300 Mg Tab.Er.24h) 300 mg PO DAILY [facility] Last Admin: 03/23/23 08:44 Dose: 300 mg Duloxetine HCl (Duloxetine Hcl 30 Mg Capsule.Dr) 30 mg PO DAILY [facility] Last Admin: 03/23/23 08:45 Dose: 30 mg Hydralazine HCl (Hydralazine Hcl 25 Mg Tablet) 25 mg PO TID [facility]; Protocol Last Admin: 03/23/23 15:16 Dose: 25 mg Hydroxyzine HCl (Hydroxyzine Hcl 25 Mg Tablet) 25 mg PO Q6H PRN PRN Reason: Anxiety Last Admin: 03/18/23 00:53 Dose: 25 mg Insulin Human Lispro (Insulin Lispro 100 Unit/Ml 3 Ml Vial) 0 unit SUBCUT QIDACHS [facility]; Protocol Last Admin: 03/23/23 12:51 Dose: Not Given Magnesium Hydroxide (Milk Of Magnesia 30 Ml Oral.Susp) 30 ml PO DAILY PRN PRN Reason: Constipation Meclizine HCl (Meclizine Hcl 25 Mg Tablet) 25 mg PO Q6H PRN PRN Reason: dizziness Last Admin: 03/11/23 10:43 Dose: 25 mg Melatonin (Melatonin 3 Mg Tablet) 6 mg PO BEDTIME PRN PRN Reason: Insomnia Last Admin: 03/22/23 21:24 Dose: 6 mg Metformin HCl (Metformin Hcl Er 500 Mg Tab.Er.24h) 1,000 mg PO BID [facility] Last Admin: 03/23/23 08:45 Dose: 1,000 mg Mirtazapine (Mirtazapine 15 Mg Tablet) 15 mg PO BEDTIME [facility] Last Admin: 03/22/23 21:24 Dose: 15 mg Multi-Ingred Medicated Throat [place] (Throat [place], Medicated 177 Ml Bottle) 1 spray MUCOUS MEM Q2H PRN PRN Reason: throat pain Last Admin: 03/22/23 17:36 Dose: 1 spray Nicotine (Nicotine 21 Mg Patch.Td24) 21 mg TRANSDERMA DAILY PRN PRN Reason: smoking cessation Nicotine Polacrilex (Nicotine Polacrilex 2 Mg Gum) 4 mg BUCCAL Q2H PRN PRN Reason: Nicotine Cravings Pt Own (Dulaglutide [Trulicity] 1.5 Mg/0 .5 Ml Pen Injector) 1.5 mg SUBCUT Fr [facility] Last Admin: 03/22/23 17:32 Dose: 1.5 mg Sitagliptin Phosphate (Sitagliptin Phosphate 50 Mg Tablet) 50 mg PO DAILY [facility] Last Admin: 03/23/23 08:45 Dose: 50 mg Valsartan (Valsartan 160 Mg Tablet) 160 mg PO DAILY [facility]; Protocol Last Admin: 03/23/23 08:44 Dose: 160 mg Allergies Allergies Allergy/AdvReac Type Severity Reaction Status Date / Time codeine [CODEINE] Allergy Unknown delayed Verified 11/25/22 10:40 responses 02/24/17 Assessment & Plan Assessment & Plan (1) Major depressive disorder, recurrent severe without psychotic features: Status: Acute Code(s): F33.2 - Major depressive disorder, recurrent severe without psychotic features Plan 57 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 Patient with a history of Major Depression, recurrent and several inpatient psychiatric hospitalizations, the last of which was last summer. He was brought to the ED by ambulance. He had been talking to his chemical manager, Abigail Odonnell TECHNICAL EDITOR at [facility] and voiced SI and was making reference to his life insurance policy. This prompted her to call EMS and he was taken to the ED. He reports he had a plan of either hanging himself or cutting his wrist. 03/08:? Collaterals from .? Collateral with Abigail Odonnell re medication adjustments.? Consider ECT.? Psychoeducation given.? No medication changes for now. 03/09: Continue treatment plan. 03/10:? get clearance for ECT.? repeat EKG due to prolonged QTc.? was recently started on cymbalta 20 mg daily, not picked up from pharmacy.? will d/w patient starting or not the medication. 03/11:? cardiomyopathy with slightly reduced EF, no other medical concerns for ECT.? prolonged QTc, but with LBBB so corrected QT is 337.? start cymbalta 30 mg daily as initiated by outpt provider.? start meclizine PRN dizziness. 03/12:? intermediate risk per cardiology.? pt remains interested in pursuing ECT.? consult placed for [place].? continue current mgmt. 03/13:? increase abilify to 5 mg daily for adjunctive anti-depressant effect.? ECT #1 scheduled for tomorrow. 03/14:? ECT #1 completed, uneventful.? abilify dosing increased as of today.? continue current mgmt. ? ECT #2 for next . 03/15: Continue current plans and regimen 03/16: Continue current plans and regimen 03/18: ECT #2 for tomorrow. remains dysphoric, expressing safety concerns to staff. DC trazodone. start remeron 15. incr melatonin to 6. 03/19: s/p ECT #2 this morning. tired, sleeping mid-morning. heard he will not be losing his job. continue current mgmt. 03/20: improving mood, more socially active, more energy. continue current mgmt. planning to discharge home next friday, the day after ECT #4. 03/21: ECT #3 completed today. perhaps up and about the unit more, but continues ot have flat affect and dearth of speech/expression. ECT #4 friday. 03/22/2023: No changes to current plan with ECT 4 planned for 03/24/2023. Will order throat spray in addition to lozenges for throat discomfort. 03/23: no changes. ECT #4 tomorrow Reason for continued inpatient stay Substantial Risk for: rapid decompensation Time Spent With Patient Time: Total time managing care of this patient today ____ minutes.
[2023-03-23 17:32] LABS: Glucose, Whole Blood 197 mg/dL (60-115)
[2023-03-23] MEDS: Insulin Lispro 100 UNIT/ML 3 ML VIAL SUBCUT ×2 (17:39→21:30)
[2023-03-23 20:15] VITALS: BP 142/62; PULSE 90; RESP 18; TEMP 37; O2SAT 95
[2023-03-23 20:50] LABS: Glucose, Whole Blood 182 mg/dL (60-115)
[2023-03-23] MEDS: Mirtazapine 15 MG TABLET PO (21:30)
[2023-03-23] MEDS: ARIPiprazole 5 MG TABLET PO (21:30)
[2023-03-23] MEDS: Throat Spray, Medicated 177 ML BOTTLE 1 SPRAY MUCOUS MEM (21:56)
--- NOTE | 2023-03-23 22:00 | PC.NURSE ---
hospitalist and electron beam photo mask maker notified of c/o r eye blurred vision.
[2023-03-23 22:10] VITALS: BP 168/81; PULSE 86; RESP 18; TEMP 37; O2SAT 98
--- NOTE | 2023-03-23 22:10 | PC.NURSE ---
Addendum entered by Keena Galindo RN 03/23/23 22:30: patient returned from CT at 2226 Original Note: Juan Ramon is c/o blurred vision in his right eye. he states that this is new. Hospitalist and cork insulation setter provider notified. New Order for head CT without contrast. patient is going for scan with the hour
--- NOTE | 2023-03-23 22:40 | PM.EVENT ---
Event Note Date of Service: 03/24/23 Event Note: Pt complaining of right eye blurry vision post ECT on friday. reports no weakness, numbness, . Head CT was negative As pt is scheduled for more ECT , will consult neurology before order further imaging Time Spent With Patient Time: Total time managing care of this patient today ____ minutes.
[2023-03-23] MEDS: hydrOXYzine HCL 25 MG TABLET PO (23:30)
--- NOTE | 2023-03-23 23:42 | PC.NURSE ---
Head CT report has been generated, results 'no acute intercranial pathology' provider made aware of findings, patient c/o feeling nervous regarding scan. 25mg of Atarax given with pending effects. will continue to monitor for changes
[2023-03-24] VITALS (10 sets, daily range): BP systolic 121–155; BP diastolic 72–86; PULSE 89–103; RESP 14–22; TEMP 36.1–36.4; O2SAT 92–97
--- NOTE | 2023-03-24 06:18 | PC.NURSE ---
POUND KEEPERNesha, given update in regards to patient's c/o r eye blurred vision. results of ctscan.
[2023-03-24 06:39] LABS: Glucose, Whole Blood 114 mg/dL (60-115)
--- NOTE | 2023-03-24 06:57 | HO.ANESPROP2 ---
[facility] Active Problems Active Problems: All Active Problems (Updated 03/17/23 @ 12:19 by Stone Anders MD) Major depressive disorder, recurrent severe without psychotic features (Acute) Preop cardiovascular exam (Acute) Recurrent major depression (Acute) Persistent depressive disorder (Acute) Depression (Acute) Suicidal ideation (Acute) ILD (interstitial lung disease) (Acute) Persistent cough (Acute) Acute respiratory failure with hypoxia (Acute) Community acquired pneumonia (Acute) Heart disease, unspecified (Acute) Dizziness (Acute) Past Medical History Medical History (Updated 03/17/23 @ 12:19 by Stone Anders MD) Major depressive disorder, recurrent severe without psychotic features ILD (interstitial lung disease) Preop cardiovascular exam Osteomyelitis Diabetic foot ulcer LBBB (left bundle branch block) Type 2 diabetes mellitus with foot ulcer HTN (hypertension) Suicidal ideation Depression Family History Family History Father Neck malignant neoplasm Family history of problems with anesthesia: No Surgical History Surgical History H/O: vasectomy History of Problems with Anesthesia: No Social History Social History Household Members: Family Housing: House Do you presently have visiting nurse or other home services: No Alcohol intake: current Alcohol intake frequency: a few times a month Patient Tobacco Use Status: Never used Tobacco e-Cigarette/Vaping Use: Never Used Second Hand Smoke Exposure: No Substance Use Type: Marijuana Advance Directives Date on File: 04/11/22 service: No Current occupational status: employed Sexual orientation: Straight/Heterosexual Meds Allergies Allergy/AdvReac Type Severity Reaction Status Date / Time codeine [CODEINE] Allergy Unknown delayed Verified 11/25/22 10:40 responses 02/24/17 Active Medications: Current Medications Acetaminophen (Acetaminophen 325 Mg Tablet) 650 mg PO Q6H PRN PRN Reason: Headache/Pain Mild Scale (1-3) Last Admin: 03/19/23 01:14 Dose: 650 mg Al Hydroxide/Mg Hydroxide (Magnesium Hydrox/Alum Hydrox 30 Ml Oral.Susp) 30 ml PO Q6H PRN PRN Reason: Heartburn/Nausea Amlodipine Besylate (Amlodipine Besylate 10 Mg Tablet) 10 mg PO DAILY MICHELLE; Protocol Last Admin: 03/23/23 08:45 Dose: 10 mg Aripiprazole (Aripiprazole 5 Mg Tablet) 5 mg PO BEDTIME [facility] Last Admin: 03/23/23 21:30 Dose: 5 mg Benzocaine (Throat Lozenge, Medicated Lozenge) 1 lozenge MUCOUS MEM Q1H PRN PRN Reason: Sore Throat Last Admin: 03/23/23 19:03 Dose: 1 lozenge Bupropion HCl (Bupropion Hcl Xl 150 Mg Tab.Er.24h) 150 mg PO DAILY [facility] Last Admin: 03/23/23 08:45 Dose: 150 mg Bupropion HCl (Bupropion Hcl Xl 300 Mg Tab.Er.24h) 300 mg PO DAILY [facility] Last Admin: 03/23/23 08:44 Dose: 300 mg Duloxetine HCl (Duloxetine Hcl 30 Mg Capsule.Dr) 30 mg PO DAILY [facility] Last Admin: 03/23/23 08:45 Dose: 30 mg Hydralazine HCl (Hydralazine Hcl 25 Mg Tablet) 25 mg PO TID [facility]; Protocol Last Admin: 03/23/23 21:30 Dose: 25 mg Hydroxyzine HCl (Hydroxyzine Hcl 25 Mg Tablet) 25 mg PO Q6H PRN PRN Reason: Anxiety Last Admin: 03/23/23 23:30 Dose: 25 mg Insulin Human Lispro (Insulin Lispro 100 Unit/Ml 3 Ml Vial) 0 unit SUBCUT QIDACHS [facility]; Protocol Last Admin: 03/23/23 21:30 Dose: 2 unit Magnesium Hydroxide (Milk Of Magnesia 30 Ml Oral.Susp) 30 ml PO DAILY PRN PRN Reason: Constipation Meclizine HCl (Meclizine Hcl 25 Mg Tablet) 25 mg PO Q6H PRN PRN Reason: dizziness Last Admin: 03/11/23 10:43 Dose: 25 mg Melatonin (Melatonin 3 Mg Tablet) 6 mg PO BEDTIME PRN PRN Reason: Insomnia Last Admin: 03/22/23 21:24 Dose: 6 mg Metformin HCl (Metformin Hcl Er 500 Mg Tab.Er.24h) 1,000 mg PO BID [facility] Last Admin: 03/23/23 21:31 Dose: 1,000 mg Mirtazapine (Mirtazapine 15 Mg Tablet) 15 mg PO BEDTIME [facility] Last Admin: 03/23/23 21:30 Dose: 15 mg Multi-Ingred Medicated Throat [place] (Throat [place], Medicated 177 Ml Bottle) 1 spray MUCOUS MEM Q2H PRN PRN Reason: throat pain Last Admin: 03/23/23 21:56 Dose: 1 spray Nicotine (Nicotine 21 Mg Patch.Td24) 21 mg TRANSDERMA DAILY PRN PRN Reason: smoking cessation Nicotine Polacrilex (Nicotine Polacrilex 2 Mg Gum) 4 mg BUCCAL Q2H PRN PRN Reason: Nicotine Cravings Pt Own (Dulaglutide [Trulicity] 1.5 Mg/0 .5 Ml Pen Injector) 1.5 mg SUBCUT [facility] Last Admin: 03/22/23 17:32 Dose: 1.5 mg Sitagliptin Phosphate (Sitagliptin Phosphate 50 Mg Tablet) 50 mg PO DAILY [facility] Last Admin: 03/23/23 08:45 Dose: 50 mg Valsartan (Valsartan 160 Mg Tablet) 160 mg PO DAILY [facility]; Protocol Last Admin: 03/23/23 08:44 Dose: 160 mg Home Medications Medication Instructions Recorded Confirmed Last Taken Type metformin 1,000 mg tablet,extended 1,000 mg PO BID 11/15/22 03/07/23 11/15/22 History release 24hr sitagliptin phosphate 50 mg tablet 50 mg PO DAILY 11/15/22 03/07/23 11/15/22 History ([place]) valsartan 160 mg tablet 160 mg PO DAILY 11/15/22 03/07/23 11/15/22 History dulaglutide 1.5 mg/0.5 mL 1.5 mg subcut QWEEK 03/07/23 03/07/23 Unknown History subcutaneous pen injector (Trulicity) Exam Exam Date and Time: March 24, 2023 0657 Height,Weight and Vital Signs: Height 5 ft 8 in Weight 83.642 kg Last Vital Signs Temp 97.5 F 03/24/23 06:31 Pulse 89 03/24/23 06:31 Resp 16 03/24/23 06:31 BP 148/81 H 03/24/23 06:31 Pulse Ox 97 03/24/23 06:31 O2 Del Method Room Air 03/24/23 06:31 O2 Flow Rate 2 03/21/23 08:25 Pertinent Lab Results Pertinent Lab Results: Laboratory Tests 03/07/23 03/07/23 03/07/23 12:14 12:17 12:23 WBC 5.7 RBC 5.30 Hgb 15.0 Hct 46.2 MCV 87.2 MCH 28.3 MCHC 32.5 RDW 13.5 Plt Count 214 D MPV 9.9 Immature Gran % (Auto) 0.2 Neut % (Auto) 57.7 Lymph % (Auto) 26.6 King % (Auto) 8.8 Eos % (Auto) 5.6 H Baso % (Auto) 1.1 Lymph # (Auto) 1.5 King # (Auto) 0.5 Eos # (Auto) 0.3 Baso # (Auto) 0.1 Abs Immat Gran (auto) 0.01 Absolute Neuts (auto) 3.3 Absolute Nucleated RBC 0.000 Nucleated RBC % (auto) 0.0 Sodium 142 Potassium 4.4 Chloride 106 Carbon Dioxide 27 Anion Gap 13 BUN 19 H Creatinine 1.06 Estim Creat Clear Calc 80.1 Estimated GFR > 60 POC Glucose 296 H Random Glucose 304 H Calcium 9.9 D Magnesium 2.0 Total Bilirubin 0.6 AST 19 ALT 14 Alkaline Phosphatase 82 Total Protein 7.1 Albumin 4.1 Urine Color Yellow Urine Appearance Clear Urine pH 5.5 Ur Specific [place] 1.015 Urine Protein Negative Urine Glucose (UA) >=1000 H Urine Ketones Negative Urine Blood Negative Urine Nitrite Negative Ur Leukocyte Esterase Negative Urine RBC 0-2 Urine WBC 0-5 Ur Squamous Epith Cells 0-2 Urine Bacteria None Seen Hyaline Casts 0-2 Salicylates < 5.0 L Urine Opiates Screen Not Detected Urine Fentanyl Screen Not Detected Acetaminophen < 17 Ur Barbiturates Screen Not Detected Ur Phencyclidine Scrn Not Detected Ur Amphetamines Screen Not Detected U Benzodiazepines Scrn Not Detected Urine Cocaine Screen Not Detected U Marijuana (THC) Screen Not Detected Ethyl Alcohol < 10 COVID-19 ([facility]) COVID-19 Clin Com 03/07/23 03/07/23 03/07/23 14:44 17:56 21:46 WBC RBC Hgb Hct MCV MCH MCHC RDW Plt Count MPV Immature Gran % (Auto) Neut % (Auto) Lymph % (Auto) King % (Auto) Eos % (Auto) Baso % (Auto) Lymph # (Auto) King # (Auto) Eos # (Auto) Baso # (Auto) Abs Immat Gran (auto) Absolute Neuts (auto) Absolute Nucleated RBC Nucleated RBC % (auto) Sodium Potassium Chloride Carbon Dioxide Anion Gap BUN Creatinine Estim Creat Clear Calc Estimated GFR POC Glucose 297 H 320 H Random Glucose Calcium Magnesium Total Bilirubin AST ALT Alkaline Phosphatase Total Protein Albumin Urine Color Urine Appearance Urine pH Ur Specific [place] Urine Protein Urine Glucose (UA) Urine Ketones Urine Blood Urine Nitrite Ur Leukocyte Esterase Urine RBC Urine WBC Ur Squamous Epith Cells Urine Bacteria Hyaline Casts Salicylates Urine Opiates Screen Urine Fentanyl Screen Acetaminophen Ur Barbiturates Screen Ur Phencyclidine Scrn Ur Amphetamines Screen U Benzodiazepines Scrn Urine Cocaine Screen U Marijuana (THC) Screen Ethyl Alcohol COVID-19 ([facility]ERN) Negative COVID-19 Clin Com See Note 03/08/23 03/08/23 03/08/23 08:15 12:12 17:35 WBC RBC Hgb Hct MCV MCH MCHC RDW Plt Count MPV Immature Gran % (Auto) Neut % (Auto) Lymph % (Auto) King % (Auto) Eos % (Auto) Baso % (Auto) Lymph # (Auto) King # (Auto) Eos # (Auto) Baso # (Auto) Abs Immat Gran (auto) Absolute Neuts (auto) Absolute Nucleated RBC Nucleated RBC % (auto) Sodium Potassium Chloride Carbon Dioxide Anion Gap BUN Creatinine Estim Creat Clear Calc Estimated GFR POC Glucose 144 H 149 H 192 H Random Glucose Calcium Magnesium Total Bilirubin AST ALT Alkaline Phosphatase Total Protein Albumin Urine Color Urine Appearance Urine pH Ur Specific [place] Urine Protein Urine Glucose (UA) Urine Ketones Urine Blood Urine Nitrite Ur Leukocyte Esterase Urine RBC Urine WBC Ur Squamous Epith Cells Urine Bacteria Hyaline Casts Salicylates Urine Opiates Screen Urine Fentanyl Screen Acetaminophen Ur Barbiturates Screen Ur Phencyclidine Scrn Ur Amphetamines Screen U Benzodiazepines Scrn Urine Cocaine Screen U Marijuana (THC) Screen Ethyl Alcohol COVID-19 ([facility]) COVID-19 Clin Com 03/08/23 03/09/23 03/09/23 20:09 08:59 12:35 WBC RBC Hgb Hct MCV MCH MCHC RDW Plt Count MPV Immature Gran % (Auto) Neut % (Auto) Lymph % (Auto) King % (Auto) Eos % (Auto) Baso % (Auto) Lymph # (Auto) King # (Auto) Eos # (Auto) Baso # (Auto) Abs Immat Gran (auto) Absolute Neuts (auto) Absolute Nucleated RBC Nucleated RBC % (auto) Sodium Potassium Chloride Carbon Dioxide Anion Gap BUN Creatinine Estim Creat Clear Calc Estimated GFR POC Glucose 258 H 220 H 100 Random Glucose Calcium Magnesium Total Bilirubin AST ALT Alkaline Phosphatase Total Protein Albumin Urine Color Urine Appearance Urine pH Ur Specific [place] Urine Protein Urine Glucose (UA) Urine Ketones Urine Blood Urine Nitrite Ur Leukocyte Esterase Urine RBC Urine WBC Ur Squamous Epith Cells Urine Bacteria Hyaline Casts Salicylates Urine Opiates Screen Urine Fentanyl Screen Acetaminophen Ur Barbiturates Screen Ur Phencyclidine Scrn Ur Amphetamines Screen U Benzodiazepines Scrn Urine Cocaine Screen U Marijuana (THC) Screen Ethyl Alcohol COVID-19 ([facility]) COVID-19 Clin Com 03/09/23 03/09/23 03/10/23 17:42 21:14 07:54 WBC RBC Hgb Hct MCV MCH MCHC RDW Plt Count MPV Immature Gran % (Auto) Neut % (Auto) Lymph % (Auto) King % (Auto) Eos % (Auto) Baso % (Auto) Lymph # (Auto) King # (Auto) Eos # (Auto) Baso # (Auto) Abs Immat Gran (auto) Absolute Neuts (auto) Absolute Nucleated RBC Nucleated RBC % (auto) Sodium Potassium Chloride Carbon Dioxide Anion Gap BUN Creatinine Estim Creat Clear Calc Estimated GFR POC Glucose 131 H 187 H 181 H Random Glucose Calcium Magnesium Total Bilirubin AST ALT Alkaline Phosphatase Total Protein Albumin Urine Color Urine Appearance Urine pH Ur Specific [place] Urine Protein Urine Glucose (UA) Urine Ketones Urine Blood Urine Nitrite Ur Leukocyte Esterase Urine RBC Urine WBC Ur Squamous Epith Cells Urine Bacteria Hyaline Casts Salicylates Urine Opiates Screen Urine Fentanyl Screen Acetaminophen Ur Barbiturates Screen Ur Phencyclidine Scrn Ur Amphetamines Screen U Benzodiazepines Scrn Urine Cocaine Screen U Marijuana (THC) Screen Ethyl Alcohol COVID-19 ([facility]) COVID-19 Clin Com 03/10/23 03/10/23 03/10/23 12:59 17:43 22:08 WBC RBC Hgb Hct MCV MCH MCHC RDW Plt Count MPV Immature Gran % (Auto) Neut % (Auto) Lymph % (Auto) King % (Auto) Eos % (Auto) Baso % (Auto) Lymph # (Auto) King # (Auto) Eos # (Auto) Baso # (Auto) Abs Immat Gran (auto) Absolute Neuts (auto) Absolute Nucleated RBC Nucleated RBC % (auto) Sodium Potassium Chloride Carbon Dioxide Anion Gap BUN Creatinine Estim Creat Clear Calc Estimated GFR POC Glucose 118 H 200 H 161 H Random Glucose Calcium Magnesium Total Bilirubin AST ALT Alkaline Phosphatase Total Protein Albumin Urine Color Urine Appearance Urine pH Ur Specific [place] Urine Protein Urine Glucose (UA) Urine Ketones Urine Blood Urine Nitrite Ur Leukocyte Esterase Urine RBC Urine WBC Ur Squamous Epith Cells Urine Bacteria Hyaline Casts Salicylates Urine Opiates Screen Urine Fentanyl Screen Acetaminophen Ur Barbiturates Screen Ur Phencyclidine Scrn Ur Amphetamines Screen U Benzodiazepines Scrn Urine Cocaine Screen U Marijuana (THC) Screen Ethyl Alcohol COVID-19 ([facility]) COVID-19 Clin Com 03/11/23 03/11/23 03/11/23 05:16 08:23 12:33 WBC RBC Hgb Hct MCV MCH MCHC RDW Plt Count MPV Immature Gran % (Auto) Neut % (Auto) Lymph % (Auto) King % (Auto) Eos % (Auto) Baso % (Auto) Lymph # (Auto) King # (Auto) Eos # (Auto) Baso # (Auto) Abs Immat Gran (auto) Absolute Neuts (auto) Absolute Nucleated RBC Nucleated RBC % (auto) Sodium Potassium Chloride Carbon Dioxide Anion Gap BUN Creatinine Estim Creat Clear Calc Estimated GFR POC Glucose 147 H 171 H 117 H Random Glucose Calcium Magnesium Total Bilirubin AST ALT Alkaline Phosphatase Total Protein Albumin Urine Color Urine Appearance Urine pH Ur Specific [place] Urine Protein Urine Glucose (UA) Urine Ketones Urine Blood Urine Nitrite Ur Leukocyte Esterase Urine RBC Urine WBC Ur Squamous Epith Cells Urine Bacteria Hyaline Casts Salicylates Urine Opiates Screen Urine Fentanyl Screen Acetaminophen Ur Barbiturates Screen Ur Phencyclidine Scrn Ur Amphetamines Screen U Benzodiazepines Scrn Urine Cocaine Screen U Marijuana (THC) Screen Ethyl Alcohol COVID-19 ([facility]) COVID-19 Clin Com 03/11/23 03/11/23 03/12/23 17:20 20:50 07:44 WBC RBC Hgb Hct MCV MCH MCHC RDW Plt Count MPV Immature Gran % (Auto) Neut % (Auto) Lymph % (Auto) King % (Auto) Eos % (Auto) Baso % (Auto) Lymph # (Auto) King # (Auto) Eos # (Auto) Baso # (Auto) Abs Immat Gran (auto) Absolute Neuts (auto) Absolute Nucleated RBC Nucleated RBC % (auto) Sodium Potassium Chloride Carbon Dioxide Anion Gap BUN Creatinine Estim Creat Clear Calc Estimated GFR POC Glucose 107 225 H 136 H Random Glucose Calcium Magnesium Total Bilirubin AST ALT Alkaline Phosphatase Total Protein Albumin Urine Color Urine Appearance Urine pH Ur Specific [place] Urine Protein Urine Glucose (UA) Urine Ketones Urine Blood Urine Nitrite Ur Leukocyte Esterase Urine RBC Urine WBC Ur Squamous Epith Cells Urine Bacteria Hyaline Casts Salicylates Urine Opiates Screen Urine Fentanyl Screen Acetaminophen Ur Barbiturates Screen Ur Phencyclidine Scrn Ur Amphetamines Screen U Benzodiazepines Scrn Urine Cocaine Screen U Marijuana (THC) Screen Ethyl Alcohol COVID-19 ([facility]) COVID-19 Clin Com 03/12/23 03/12/23 03/12/23 12:02 17:23 20:53 WBC RBC Hgb Hct MCV MCH MCHC RDW Plt Count MPV Immature Gran % (Auto) Neut % (Auto) Lymph % (Auto) King % (Auto) Eos % (Auto) Baso % (Auto) Lymph # (Auto) King # (Auto) Eos # (Auto) Baso # (Auto) Abs Immat Gran (auto) Absolute Neuts (auto) Absolute Nucleated RBC Nucleated RBC % (auto) Sodium Potassium Chloride Carbon Dioxide Anion Gap BUN Creatinine Estim Creat Clear Calc Estimated GFR POC Glucose 135 H 124 H 167 H Random Glucose Calcium Magnesium Total Bilirubin AST ALT Alkaline Phosphatase Total Protein Albumin Urine Color Urine Appearance Urine pH Ur Specific [place] Urine Protein Urine Glucose (UA) Urine Ketones Urine Blood Urine Nitrite Ur Leukocyte Esterase Urine RBC Urine WBC Ur Squamous Epith Cells Urine Bacteria Hyaline Casts Salicylates Urine Opiates Screen Urine Fentanyl Screen Acetaminophen Ur Barbiturates Screen Ur Phencyclidine Scrn Ur Amphetamines Screen U Benzodiazepines Scrn Urine Cocaine Screen U Marijuana (THC) Screen Ethyl Alcohol COVID-19 ([facility]) COVID-19 Clin Com 03/13/23 03/13/23 03/13/23 08:02 09:12 12:30 WBC RBC Hgb Hct MCV MCH MCHC RDW Plt Count MPV Immature Gran % (Auto) Neut % (Auto) Lymph % (Auto) King % (Auto) Eos % (Auto) Baso % (Auto) Lymph # (Auto) King # (Auto) Eos # (Auto) Baso # (Auto) Abs Immat Gran (auto) Absolute Neuts (auto) Absolute Nucleated RBC Nucleated RBC % (auto) Sodium Potassium Chloride Carbon Dioxide Anion Gap BUN Creatinine 0.83 Estim Creat Clear Calc 101.7 Estimated GFR > 60 POC Glucose 125 H 133 H Random Glucose Calcium Magnesium Total Bilirubin AST ALT Alkaline Phosphatase Total Protein Albumin Urine Color Urine Appearance Urine pH Ur Specific [place] Urine Protein Urine Glucose (UA) Urine Ketones Urine Blood Urine Nitrite Ur Leukocyte Esterase Urine RBC Urine WBC Ur Squamous Epith Cells Urine Bacteria Hyaline Casts Salicylates Urine Opiates Screen Urine Fentanyl Screen Acetaminophen Ur Barbiturates Screen Ur Phencyclidine Scrn Ur Amphetamines Screen U Benzodiazepines Scrn Urine Cocaine Screen U Marijuana (THC) Screen Ethyl Alcohol COVID-19 ([facility]) COVID-19 Clin Com 03/13/23 03/13/23 03/14/23 17:23 20:52 07:44 WBC RBC Hgb Hct MCV MCH MCHC RDW Plt Count MPV Immature Gran % (Auto) Neut % (Auto) Lymph % (Auto) King % (Auto) Eos % (Auto) Baso % (Auto) Lymph # (Auto) King # (Auto) Eos # (Auto) Baso # (Auto) Abs Immat Gran (auto) Absolute Neuts (auto) Absolute Nucleated RBC Nucleated RBC % (auto) Sodium Potassium Chloride Carbon Dioxide Anion Gap BUN Creatinine Estim Creat Clear Calc Estimated GFR POC Glucose 132 H 169 H 101 Random Glucose Calcium Magnesium Total Bilirubin AST ALT Alkaline Phosphatase Total Protein Albumin Urine Color Urine Appearance Urine pH Ur Specific [place] Urine Protein Urine Glucose (UA) Urine Ketones Urine Blood Urine Nitrite Ur Leukocyte Esterase Urine RBC Urine WBC Ur Squamous Epith Cells Urine Bacteria Hyaline Casts Salicylates Urine Opiates Screen Urine Fentanyl Screen Acetaminophen Ur Barbiturates Screen Ur Phencyclidine Scrn Ur Amphetamines Screen U Benzodiazepines Scrn Urine Cocaine Screen U Marijuana (THC) Screen Ethyl Alcohol COVID-19 ([facility]) COVID-19 Clin Com 03/14/23 03/14/23 03/14/23 11:09 17:42 21:29 WBC RBC Hgb Hct MCV MCH MCHC RDW Plt Count MPV Immature Gran % (Auto) Neut % (Auto) Lymph % (Auto) King % (Auto) Eos % (Auto) Baso % (Auto) Lymph # (Auto) King # (Auto) Eos # (Auto) Baso # (Auto) Abs Immat Gran (auto) Absolute Neuts (auto) Absolute Nucleated RBC Nucleated RBC % (auto) Sodium Potassium Chloride Carbon Dioxide Anion Gap BUN Creatinine Estim Creat Clear Calc Estimated GFR POC Glucose 104 138 H 238 H Random Glucose Calcium Magnesium Total Bilirubin AST ALT Alkaline Phosphatase Total Protein Albumin Urine Color Urine Appearance Urine pH Ur Specific [place] Urine Protein Urine Glucose (UA) Urine Ketones Urine Blood Urine Nitrite Ur Leukocyte Esterase Urine RBC Urine WBC Ur Squamous Epith Cells Urine Bacteria Hyaline Casts Salicylates Urine Opiates Screen Urine Fentanyl Screen Acetaminophen Ur Barbiturates Screen Ur Phencyclidine Scrn Ur Amphetamines Screen U Benzodiazepines Scrn Urine Cocaine Screen U Marijuana (THC) Screen Ethyl Alcohol COVID-19 ([facility]) COVID-19 Clin Com 03/15/23 03/16/23 03/16/23 12:40 12:39 17:08 WBC RBC Hgb Hct MCV MCH MCHC RDW Plt Count MPV Immature Gran % (Auto) Neut % (Auto) Lymph % (Auto) King % (Auto) Eos % (Auto) Baso % (Auto) Lymph # (Auto) King # (Auto) Eos # (Auto) Baso # (Auto) Abs Immat Gran (auto) Absolute Neuts (auto) Absolute Nucleated RBC Nucleated RBC % (auto) Sodium Potassium Chloride Carbon Dioxide Anion Gap BUN Creatinine Estim Creat Clear Calc Estimated GFR POC Glucose 97 87 137 H Random Glucose Calcium Magnesium Total Bilirubin AST ALT Alkaline Phosphatase Total Protein Albumin Urine Color Urine Appearance Urine pH Ur Specific [place] Urine Protein Urine Glucose (UA) Urine Ketones Urine Blood Urine Nitrite Ur Leukocyte Esterase Urine RBC Urine WBC Ur Squamous Epith Cells Urine Bacteria Hyaline Casts Salicylates Urine Opiates Screen Urine Fentanyl Screen Acetaminophen Ur Barbiturates Screen Ur Phencyclidine Scrn Ur Amphetamines Screen U Benzodiazepines Scrn Urine Cocaine Screen U Marijuana (THC) Screen Ethyl Alcohol COVID-19 ([facility]) COVID-19 Clin Com 03/17/23 03/17/23 03/17/23 12:34 17:27 20:09 WBC RBC Hgb Hct MCV MCH MCHC RDW Plt Count MPV Immature Gran % (Auto) Neut % (Auto) Lymph % (Auto) King % (Auto) Eos % (Auto) Baso % (Auto) Lymph # (Auto) King # (Auto) Eos # (Auto) Baso # (Auto) Abs Immat Gran (auto) Absolute Neuts (auto) Absolute Nucleated RBC Nucleated RBC % (auto) Sodium Potassium Chloride Carbon Dioxide Anion Gap BUN Creatinine Estim Creat Clear Calc Estimated GFR POC Glucose 83 159 H 133 H Random Glucose Calcium Magnesium Total Bilirubin AST ALT Alkaline Phosphatase Total Protein Albumin Urine Color Urine Appearance Urine pH Ur Specific [place] Urine Protein Urine Glucose (UA) Urine Ketones Urine Blood Urine Nitrite Ur Leukocyte Esterase Urine RBC Urine WBC Ur Squamous Epith Cells Urine Bacteria Hyaline Casts Salicylates Urine Opiates Screen Urine Fentanyl Screen Acetaminophen Ur Barbiturates Screen Ur Phencyclidine Scrn Ur Amphetamines Screen U Benzodiazepines Scrn Urine Cocaine Screen U Marijuana (THC) Screen Ethyl Alcohol COVID-19 ([facility]) COVID-19 Clin Com 03/18/23 03/18/23 03/19/23 12:23 17:19 06:22 WBC RBC Hgb Hct MCV MCH MCHC RDW Plt Count MPV Immature Gran % (Auto) Neut % (Auto) Lymph % (Auto) King % (Auto) Eos % (Auto) Baso % (Auto) Lymph # (Auto) [place] # (Auto) Eos # (Auto) Baso # (Auto) Abs Immat Gran (auto) Absolute Neuts (auto) Absolute Nucleated RBC Nucleated RBC % (auto) Sodium Potassium Chloride Carbon Dioxide Anion Gap BUN Creatinine Estim Creat Clear Calc Estimated GFR POC Glucose 221 H 118 H 108 Random Glucose Calcium Magnesium Total Bilirubin AST ALT Alkaline Phosphatase Total Protein Albumin Urine Color Urine Appearance Urine pH Ur Specific [place] Urine Protein Urine Glucose (UA) Urine Ketones Urine Blood Urine Nitrite Ur Leukocyte Esterase Urine RBC Urine WBC Ur Squamous Epith Cells Urine Bacteria Hyaline Casts Salicylates Urine Opiates Screen Urine Fentanyl Screen Acetaminophen Ur Barbiturates Screen Ur Phencyclidine Scrn Ur Amphetamines Screen U Benzodiazepines Scrn Urine Cocaine Screen U Marijuana (THC) Screen Ethyl Alcohol COVID-19 ([facility]) COVID-19 Clin Com 03/19/23 03/19/23 03/19/23 09:11 09:57 17:26 WBC RBC Hgb Hct MCV MCH MCHC RDW Plt Count MPV Immature Gran % (Auto) Neut % (Auto) Lymph % (Auto) King % (Auto) Eos % (Auto) Baso % (Auto) Lymph # (Auto) King # (Auto) Eos # (Auto) Baso # (Auto) Abs Immat Gran (auto) Absolute Neuts (auto) Absolute Nucleated RBC Nucleated RBC % (auto) Sodium Potassium Chloride Carbon Dioxide Anion Gap BUN Creatinine 0.90 Estim Creat Clear Calc 94.5 Estimated GFR > 60 POC Glucose 98 173 H Random Glucose Calcium Magnesium Total Bilirubin AST ALT Alkaline Phosphatase Total Protein Albumin Urine Color Urine Appearance Urine pH Ur Specific [place] Urine Protein Urine Glucose (UA) Urine Ketones Urine Blood Urine Nitrite Ur Leukocyte Esterase Urine RBC Urine WBC Ur Squamous Epith Cells Urine Bacteria Hyaline Casts Salicylates Urine Opiates Screen Urine Fentanyl Screen Acetaminophen Ur Barbiturates Screen Ur Phencyclidine Scrn Ur Amphetamines Screen U Benzodiazepines Scrn Urine Cocaine Screen U Marijuana (THC) Screen Ethyl Alcohol COVID-19 (FERN) COVID-19 Clin Com 03/20/23 03/20/23 03/20/23 11:54 16:36 21:36 WBC RBC Hgb Hct MCV MCH MCHC RDW Plt Count MPV Immature Gran % (Auto) Neut % (Auto) Lymph % (Auto) King % (Auto) Eos % (Auto) Baso % (Auto) Lymph # (Auto) King # (Auto) Eos # (Auto) Baso # (Auto) Abs Immat Gran (auto) Absolute Neuts (auto) Absolute Nucleated RBC Nucleated RBC % (auto) Sodium Potassium Chloride Carbon Dioxide Anion Gap BUN Creatinine Estim Creat Clear Calc Estimated GFR POC Glucose 190 H 119 H 266 H Random Glucose Calcium Magnesium Total Bilirubin AST ALT Alkaline Phosphatase Total Protein Albumin Urine Color Urine Appearance Urine pH Ur Specific [place] Urine Protein Urine Glucose (UA) Urine Ketones Urine Blood Urine Nitrite Ur Leukocyte Esterase Urine RBC Urine WBC Ur Squamous Epith Cells Urine Bacteria Hyaline Casts Salicylates Urine Opiates Screen Urine Fentanyl Screen Acetaminophen Ur Barbiturates Screen Ur Phencyclidine Scrn Ur Amphetamines Screen U Benzodiazepines Scrn Urine Cocaine Screen U Marijuana (THC) Screen Ethyl Alcohol COVID-19 (FERN) COVID-19 Clin Com 03/21/23 03/21/23 03/21/23 07:49 12:48 17:53 WBC RBC Hgb Hct MCV MCH MCHC RDW Plt Count MPV Immature Gran % (Auto) Neut % (Auto) Lymph % (Auto) King % (Auto) Eos % (Auto) Baso % (Auto) Lymph # (Auto) King # (Auto) Eos # (Auto) Baso # (Auto) Abs Immat Gran (auto) Absolute Neuts (auto) Absolute Nucleated RBC Nucleated RBC % (auto) Sodium Potassium Chloride Carbon Dioxide Anion Gap BUN Creatinine Estim Creat Clear Calc Estimated GFR POC Glucose 86 154 H 171 H Random Glucose Calcium Magnesium Total Bilirubin AST ALT Alkaline Phosphatase Total Protein Albumin Urine Color Urine Appearance Urine pH Ur Specific [place] Urine Protein Urine Glucose (UA) Urine Ketones Urine Blood Urine Nitrite Ur Leukocyte Esterase Urine RBC Urine WBC Ur Squamous Epith Cells Urine Bacteria Hyaline Casts Salicylates Urine Opiates Screen Urine Fentanyl Screen Acetaminophen Ur Barbiturates Screen Ur Phencyclidine Scrn Ur Amphetamines Screen U Benzodiazepines Scrn Urine Cocaine Screen U Marijuana (THC) Screen Ethyl Alcohol COVID-19 (FERN) COVID-19 Clin Com 03/22/23 03/22/23 03/22/23 08:10 11:57 17:35 WBC RBC Hgb Hct MCV MCH MCHC RDW Plt Count MPV Immature Gran % (Auto) Neut % (Auto) Lymph % (Auto) King % (Auto) Eos % (Auto) Baso % (Auto) Lymph # (Auto) King # (Auto) Eos # (Auto) Baso # (Auto) Abs Immat Gran (auto) Absolute Neuts (auto) Absolute Nucleated RBC Nucleated RBC % (auto) Sodium Potassium Chloride Carbon Dioxide Anion Gap BUN Creatinine Estim Creat Clear Calc Estimated GFR POC Glucose 121 H 220 H 137 H Random Glucose Calcium Magnesium Total Bilirubin AST ALT Alkaline Phosphatase Total Protein Albumin Urine Color Urine Appearance Urine pH Ur Specific [place] Urine Protein Urine Glucose (UA) Urine Ketones Urine Blood Urine Nitrite Ur Leukocyte Esterase Urine RBC Urine WBC Ur Squamous Epith Cells Urine Bacteria Hyaline Casts Salicylates Urine Opiates Screen Urine Fentanyl Screen Acetaminophen Ur Barbiturates Screen Ur Phencyclidine Scrn Ur Amphetamines Screen U Benzodiazepines Scrn Urine Cocaine Screen U Marijuana (THC) Screen Ethyl Alcohol COVID-19 (FERN) COVID-19 Clin Com 03/23/23 03/23/23 03/23/23 08:14 12:09 17:22 WBC RBC Hgb Hct MCV MCH MCHC RDW Plt Count MPV Immature Gran % (Auto) Neut % (Auto) Lymph % (Auto) King % (Auto) Eos % (Auto) Baso % (Auto) Lymph # (Auto) King # (Auto) Eos # (Auto) Baso # (Auto) Abs Immat Gran (auto) Absolute Neuts (auto) Absolute Nucleated RBC Nucleated RBC % (auto) Sodium Potassium Chloride Carbon Dioxide Anion Gap BUN Creatinine Estim Creat Clear Calc Estimated GFR POC Glucose 112 146 H 197 H Random Glucose Calcium Magnesium Total Bilirubin AST ALT Alkaline Phosphatase Total Protein Albumin Urine Color Urine Appearance Urine pH Ur Specific [place] Urine Protein Urine Glucose (UA) Urine Ketones Urine Blood Urine Nitrite Ur Leukocyte Esterase Urine RBC Urine WBC Ur Squamous Epith Cells Urine Bacteria Hyaline Casts Salicylates Urine Opiates Screen Urine Fentanyl Screen Acetaminophen Ur Barbiturates Screen Ur Phencyclidine Scrn Ur Amphetamines Screen U Benzodiazepines Scrn Urine Cocaine Screen U Marijuana (THC) Screen Ethyl Alcohol COVID-19 (FERN) COVID-19 Duda Com 03/23/23 03/24/23 20:45 06:35 WBC RBC Hgb Hct MCV MCH MCHC RDW Plt Count MPV Immature Gran % (Auto) Neut % (Auto) Lymph % (Auto) King % (Auto) Eos % (Auto) Baso % (Auto) Lymph # (Auto) King # (Auto) Eos # (Auto) Baso # (Auto) Abs Immat Gran (auto) Absolute Neuts (auto) Absolute Nucleated RBC Nucleated RBC % (auto) Sodium Potassium Chloride Carbon Dioxide Anion Gap BUN Creatinine Estim Creat Clear Calc Estimated GFR POC Glucose 182 H 114 Random Glucose Calcium Magnesium Total Bilirubin AST ALT Alkaline Phosphatase Total Protein Albumin Urine Color Urine Appearance Urine pH Ur Specific [place] Urine Protein Urine Glucose (UA) Urine Ketones Urine Blood Urine Nitrite Ur Leukocyte Esterase Urine RBC Urine WBC Ur Squamous Epith Cells Urine Bacteria Hyaline Casts Salicylates Urine Opiates Screen Urine Fentanyl Screen Acetaminophen Ur Barbiturates Screen Ur Phencyclidine Scrn Ur Amphetamines Screen U Benzodiazepines Scrn Urine Cocaine Screen U Marijuana (THC) Screen Ethyl Alcohol COVID-19 (FERN) COVID-19 Clin Com Airway Mallampati Class: II TM Dist: >3cm Neck ROM: Full Denture: Upper and Lower Heart: rrr Lungs: ctta Assessment and Plan Assessment Anesthesia Assessment: Anesthesia Plan Discussed Final Anesthetic Review Family History of Problems with Anesthesia: No History of Problems with Anesthesia: No NPO: Yes ASA Class: III Final Preanesthetic Review: No Changes in Pt Med Stat, Meds/Allgs Chart Reviewed and Consent Obtained/Reviewed Patient Risk: Intermediate Procedure Risk: Intermediate Anesthetic Plan Anesthetic Plan: GA Disposition: Standard PACU
--- NOTE | 2023-03-24 07:05 | MHC.SHP ---
Pre-Procedural Eval Section A Date of Service: 03/24/23 The patient is an INPATIENT: Yes Changes since office visit: No Cold of Flu in the past 2 weeks, No New Medical Problems, No Changes in Medication and No Patient answered all questions The History & Physical has been completed within 30 days and I have reviewed it.: Yes Section B Chief Complaint: LBBB, pre ECT Allergies: Allergies Allergy/AdvReac Type Severity Reaction Status Date / Time codeine [CODEINE] Allergy Unknown delayed Verified 11/25/22 10:40 responses 02/24/17 Plan I have reviewed the history and physical and performed a pertinent physical examination on my patient. No changes have occurred unless specified. Time Spent With Patient Time: Total time managing care of this patient today ____ minutes.
--- NOTE | 2023-03-24 07:37 | HO.ECTPROC ---
ECT Procedure Note Diagnosis/Treatment Date of Service: 03/24/23 Diagnosis: Major Depressive Disorder Previous ECT Date: 03/21/23 Current Treatment Number: 4 Treatment: Series Interval Clinical Notes: The patient complained of blurry eyes yesterday, had a CT without new findings. Also, he reported mild throat soreness due to LMA last procedure but today we didin't do LMA with good O2 saturation. His IV line was infiltrated after receiving Etomidate 14 mg, he was not sedated and it was changed. Later on, sedation without problems Procedure without any problems later. Time: Total time managing care of this patient today ____ minutes. ECT Settings Device: THYMATRON DGx Electrode Placement: Right Unilateral Program/Pulse Width: 0.50 Energy Percent: 80 Seizure Duration By EEG (in seconds): 29 By Motor Observation (in seconds): 21 Medications Administration General Anesthetic: Etomidate (14, infiltrated, later received another 14 with new IV) Muscle Relaxant: Succinylcholine (140) and Rocuronium (5) Ancillary Medications Analgesics: Torodol - Pre ECT Anti-emetics: Zofran - Pre ECT Airway Management Airway Management: Bag Mask Ventilation Treatment Recommendations No Changes Recommended: No change Pt Tolerated Procedure w/o Issue: Yes
[2023-03-24] MEDS: SITagliptin Phosphate 50 MG TABLET PO (09:39)
[2023-03-24] MEDS: buPROPion HCl XL 300 MG TAB.ER.24H PO (09:40)
[2023-03-24] MEDS: Valsartan 160 MG TABLET PO (09:40)
[2023-03-24] MEDS: DULoxetine HCl 30 MG CAPSULE.DR PO (09:41)
[2023-03-24] MEDS: hydrALAZINE HCl 25 MG TABLET PO ×3 (09:41→21:25)
[2023-03-24] MEDS: amLODIPine Besylate 10 MG TABLET PO (09:41)
[2023-03-24] MEDS: metFORMIN HCl ER 500 MG TAB.ER.24H 1000 MG PO ×2 (09:41→21:25)
[2023-03-24] MEDS: buPROPion HCl XL 150 MG TAB.ER.24H PO (09:41)
[2023-03-24] MEDS: Throat Lozenge, Medicated LOZENGE 1 LOZENGE MUCOUS MEM ×3 (11:03→21:24)
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
--- NOTE | 2023-03-24 14:22 | PM.NEUROCN ---
History of Present Illness Data of Consult Service Date: 03/24/23 Primary Care Provider: Manpreet Tabares MD [facility] Reason for consult: Blurred vision 57 years old man I was asked to see for right eye blurred vision. He said that he did have it before. It was like something was in front of his eyes or he was having a pinkeye. He denied any headache or eye pain. There was no visible discharged or any cold or flu-like illness. He denied double vision. Review of Systems Review of Systems: Is in HPI [facility] Past Medical History Medical History (Updated 03/24/23 @ 14:24 by Aquilino Vences MD) Major depressive disorder, recurrent severe without psychotic features ILD (interstitial lung disease) Preop cardiovascular exam Osteomyelitis Diabetic foot ulcer LBBB (left bundle branch block) Type 2 diabetes mellitus with foot ulcer HTN (hypertension) Suicidal ideation Depression Family History Family History Father Neck malignant neoplasm Surgical History Surgical History H/O: vasectomy Social History Social History Household Members: Family Housing: House Do you presently have visiting nurse or other home services: No Alcohol intake: current Alcohol intake frequency: a few times a month Patient Tobacco Use Status: Never used Tobacco e-Cigarette/Vaping Use: Never Used Second Hand Smoke Exposure: No Substance Use Type: Marijuana Advance Directives Date on File: 04/11/22 service: No Current occupational status: employed Sexual orientation: Straight/Heterosexual Meds Allergies Allergy/AdvReac Type Severity Reaction Status Date / Time codeine [CODEINE] Allergy Unknown delayed Verified 11/25/22 10:40 responses 02/24/17 Active Medications: Current Medications Acetaminophen (Acetaminophen 325 Mg Tablet) 650 mg PO Q6H PRN PRN Reason: Headache/Pain Mild Scale (1-3) Last Admin: 03/19/23 01:14 Dose: 650 mg Al Hydroxide/Mg Hydroxide (Magnesium Hydrox/Alum Hydrox 30 Ml Oral.Susp) 30 ml PO Q6H PRN PRN Reason: Heartburn/Nausea Amlodipine Besylate (Amlodipine Besylate 10 Mg Tablet) 10 mg PO DAILY MICHELLE; Protocol Last Admin: 03/24/23 09:41 Dose: 10 mg Aripiprazole (Aripiprazole 5 Mg Tablet) 5 mg PO BEDTIME [facility] Last Admin: 03/23/23 21:30 Dose: 5 mg Benzocaine (Throat Lozenge, Medicated Lozenge) 1 lozenge MUCOUS MEM Q1H PRN PRN Reason: Sore Throat Last Admin: 03/24/23 14:00 Dose: 1 lozenge Bupropion HCl (Bupropion Hcl Xl 150 Mg Tab.Er.24h) 150 mg PO DAILY [facility] Last Admin: 03/24/23 09:41 Dose: 150 mg Bupropion HCl (Bupropion Hcl Xl 300 Mg Tab.Er.24h) 300 mg PO DAILY [facility] Last Admin: 03/24/23 09:40 Dose: 300 mg Duloxetine HCl (Duloxetine Hcl 30 Mg Capsule.Dr) 30 mg PO DAILY [facility] Last Admin: 03/24/23 09:41 Dose: 30 mg Hydralazine HCl (Hydralazine Hcl 25 Mg Tablet) 25 mg PO TID [facility]; Protocol Last Admin: 03/24/23 14:00 Dose: 25 mg Hydroxyzine HCl (Hydroxyzine Hcl 25 Mg Tablet) 25 mg PO Q6H PRN PRN Reason: Anxiety Last Admin: 03/23/23 23:30 Dose: 25 mg Insulin Human Lispro (Insulin Lispro 100 Unit/Ml 3 Ml Vial) 0 unit SUBCUT QIDACHS [facility]; Protocol Last Admin: 03/24/23 12:32 Dose: Not Given Magnesium Hydroxide (Milk Of Magnesia 30 Ml Oral.Susp) 30 ml PO DAILY PRN PRN Reason: Constipation Meclizine HCl (Meclizine Hcl 25 Mg Tablet) 25 mg PO Q6H PRN PRN Reason: dizziness Last Admin: 03/11/23 10:43 Dose: 25 mg Melatonin (Melatonin 3 Mg Tablet) 6 mg PO BEDTIME PRN PRN Reason: Insomnia Last Admin: 03/22/23 21:24 Dose: 6 mg Metformin HCl (Metformin Hcl Er 500 Mg Tab.Er.24h) 1,000 mg PO BID [facility] Last Admin: 03/24/23 09:41 Dose: 1,000 mg Mirtazapine (Mirtazapine 15 Mg Tablet) 15 mg PO BEDTIME [facility] Last Admin: 03/23/23 21:30 Dose: 15 mg Multi-Ingred Medicated Throat [place] (Throat [place], Medicated 177 Ml Bottle) 1 spray MUCOUS MEM Q2H PRN PRN Reason: throat pain Last Admin: 03/23/23 21:56 Dose: 1 spray Nicotine (Nicotine 21 Mg Patch.Td24) 21 mg TRANSDERMA DAILY PRN PRN Reason: smoking cessation Nicotine Polacrilex (Nicotine Polacrilex 2 Mg Gum) 4 mg BUCCAL Q2H PRN PRN Reason: Nicotine Cravings Pt Own (Dulaglutide [Trulicity] 1.5 Mg/0 .5 Ml Pen Injector) 1.5 mg SUBCUT [facility] Last Admin: 03/22/23 17:32 Dose: 1.5 mg Sitagliptin Phosphate (Sitagliptin Phosphate 50 Mg Tablet) 50 mg PO DAILY [facility] Last Admin: 03/24/23 09:39 Dose: 50 mg Valsartan (Valsartan 160 Mg Tablet) 160 mg PO DAILY [facility]; Protocol Last Admin: 03/24/23 09:40 Dose: 160 mg Home Medications Medication Instructions Recorded Confirmed Last Taken Type metformin 1,000 mg tablet,extended 1,000 mg PO BID 11/15/22 03/07/23 11/15/22 History release 24hr sitagliptin phosphate 50 mg tablet 50 mg PO DAILY 11/15/22 03/07/23 11/15/22 History (Cruz[place]) valsartan 160 mg tablet 160 mg PO DAILY 11/15/22 03/07/23 11/15/22 History dulaglutide 1.5 mg/0.5 mL 1.5 mg subcut QWEEK 03/07/23 03/07/23 Unknown History subcutaneous pen injector (Trulicity) Physical Exam Vital Signs: Vital Signs: Last Vital Signs Temp 97.3 F 03/24/23 09:30 Pulse 102 H 03/24/23 09:30 Resp 18 03/24/23 09:30 BP 133/72 03/24/23 09:30 Pulse Ox 96 03/24/23 09:30 O2 Del Method Room Air 03/24/23 09:30 O2 Flow Rate 2 03/24/23 08:56 BMI result Body Mass Index 28.0 Neuro: Other: He is alert and awake with normal spontaneity of speech fluency comprehension and affect. Face is symmetrical. Both pupils are about 3 mm and reactive to light. Left pupil is black with no sign of any opacity seen in the lens but in right pupil lens seems to be opaque. Results Labs 03/07/23 12:23 03/19/23 09:57 Labs: Head CT without contrast did not reveal any significant abnormality. Assessment and Plan (1) Blurred vision: Status: Acute 57 years old man with new onset right eye blurred vision. On examination his legs in right eye seems to be of relatively opaque compared to left. Differential diagnosis of this condition would include cataract, glaucoma, or anterior ischemic optic neuropathy. I recommend an ophthalmology consultation. Time Spent With Patient Time: Total time managing care of this patient today ____ minutes. Procedures Date of Service Date of Service: 03/24/23
[2023-03-24 17:14] LABS: Glucose, Whole Blood 121 mg/dL (60-115)
[2023-03-24 20:44] LABS: Glucose, Whole Blood 261 mg/dL (60-115)
[2023-03-24] MEDS: Insulin Lispro 100 UNIT/ML 3 ML VIAL SUBCUT (21:24)
[2023-03-24] MEDS: ARIPiprazole 5 MG TABLET PO (21:25)
[2023-03-24] MEDS: Mirtazapine 15 MG TABLET PO (21:25)
[2023-03-25 08:00] VITALS: BP 124/69; PULSE 87; RESP 18; TEMP 36.2; O2SAT 96
[2023-03-25 08:33] LABS: Glucose, Whole Blood 91 mg/dL (60-115)
[2023-03-25] MEDS: hydrALAZINE HCl 25 MG TABLET PO (08:53)
[2023-03-25] MEDS: amLODIPine Besylate 10 MG TABLET PO (08:53)
[2023-03-25] MEDS: SITagliptin Phosphate 50 MG TABLET PO (08:53)
[2023-03-25] MEDS: buPROPion HCl XL 150 MG TAB.ER.24H PO (08:53)
[2023-03-25] MEDS: buPROPion HCl XL 300 MG TAB.ER.24H PO (08:53)
[2023-03-25] MEDS: Valsartan 160 MG TABLET PO (08:53)
[2023-03-25] MEDS: DULoxetine HCl 30 MG CAPSULE.DR PO (08:53)
[2023-03-25] MEDS: metFORMIN HCl ER 500 MG TAB.ER.24H 1000 MG PO (08:54)
== END 2023-03-25 10:41 | disposition home or self-care (01) | DRG 751 ==
LOC: HO.ED 13:54 → HO.PADLT16 19:44
PROVIDERS: Physician Assistant; Psychiatry & Neurology Psychiatry; Admitting Provider Psychiatry & Neurology Psychiatry; Emergency Provider Emergency Medicine Emergency Medical Services; PCP Family Medicine; Visit Provider Psychiatry & Neurology Psychiatry
PROC: GZB4ZZZ Other Electroconvulsive Therapy (ICD-10-PCS; CPT 90870; principal; 2023-03-14 15:00)
DX: F33.2 Major depressive disorder, recurrent severe without psychotic features (principal); J84.9 Interstitial pulmonary disease, unspecified; I11.9 Hypertensive heart disease without heart failure; R45.851 Suicidal ideations; E11.9 Type 2 diabetes mellitus without complications; H53.8 Other visual disturbances; I44.7 Left bundle-branch block, unspecified; Z91.51 Personal history of suicidal behavior; F34.1 Dysthymic disorder; Z20.822 Contact with and (suspected) exposure to COVID-19; Z79.84 Long term (current) use of oral hypoglycemic drugs; Z79.899 Other long term (current) drug therapy
CPT/HCPCS: 36415; 70450; 80053; 80143; 80179; 80307; 81001; 82565; 82947; 83735; 85025; 87635; 90870; 93005; 99285; J0330; J1885; J2405; S9485

== ENCOUNTER → 2023-03-07 19:38 | Outpatient (BNV) | payer BC, SELFPAY | PROVIDERS: Admitting Provider Psychiatry & Neurology Psychiatry; Emergency Provider Emergency Medicine Emergency Medical Services; PCP Family Medicine; Visit Provider Psychiatry & Neurology Psychiatry | DX: F33.2 Major depressive disorder, recurrent severe without psychotic features (principal) | CPT/HCPCS: 90792; 90870; 99231; 99232; 99239 ==

== ENCOUNTER → 2023-03-07 19:38 | Outpatient (BNV) | payer BC, SELFPAY | PROVIDERS: Admitting Provider Psychiatry & Neurology Psychiatry; Emergency Provider Emergency Medicine Emergency Medical Services; PCP Family Medicine; Visit Provider Psychiatry & Neurology Psychiatry | DX: F33.2 Major depressive disorder, recurrent severe without psychotic features (principal) | CPT/HCPCS: 90870; 99499 ==

== ENCOUNTER → 2023-03-07 19:38 | Outpatient (BNV) | payer BC, SELFPAY | PROVIDERS: Admitting Provider Psychiatry & Neurology Psychiatry; Emergency Provider Emergency Medicine Emergency Medical Services; PCP Family Medicine; Visit Provider Internal Medicine Cardiovascular Disease | DX: F33.9 Major depressive disorder, recurrent, unspecified (principal); Z01.810 Encounter for preprocedural cardiovascular examination | CPT/HCPCS: 99222 ==

== ENCOUNTER 2023-03-26 05:48 | Day surgery (SDC) | payer BC, SELFPAY ==
[2023-03-26] VITALS (12 sets, daily range): BP systolic 125–168; BP diastolic 70–95; PULSE 91–109; RESP 16–18; TEMP 36.4–36.6; O2SAT 92–95; BMI 28.1
[2023-03-26 06:33] LABS: Glucose, Whole Blood 109 mg/dL (60-115)
--- NOTE | 2023-03-26 06:54 | P.CONAN_ITS ---
[facility] Active Problems Active Problems: All Active Problems (Updated 03/24/23 @ 14:24 by Aquilino Vences MD) Blurred vision (Acute) Major depressive disorder, recurrent severe without psychotic features (Acute) Preop cardiovascular exam (Acute) Recurrent major depression (Acute) Persistent depressive disorder (Acute) Depression (Acute) Suicidal ideation (Acute) ILD (interstitial lung disease) (Acute) Persistent cough (Acute) Acute respiratory failure with hypoxia (Acute) Community acquired pneumonia (Acute) Heart disease, unspecified (Acute) Dizziness (Acute) Past Medical History Medical History (Updated 03/24/23 @ 14:24 by Aquilino Vences MD) Major depressive disorder, recurrent severe without psychotic features ILD (interstitial lung disease) Preop cardiovascular exam Osteomyelitis Diabetic foot ulcer LBBB (left bundle branch block) Type 2 diabetes mellitus with foot ulcer HTN (hypertension) Suicidal ideation Depression Family History Family History Father Neck malignant neoplasm Family history of problems with anesthesia: No Surgical History Surgical History H/O: vasectomy History of Problems with Anesthesia: No Social History Social History Household Members: Family Housing: House Do you presently have visiting nurse or other home services: No Alcohol intake: current Alcohol intake frequency: a few times a month Patient Tobacco Use Status: Never used Tobacco e-Cigarette/Vaping Use: Never Used Second Hand Smoke Exposure: No Substance Use Type: Marijuana Advance Directives: No Advance Directives Information Provided: Yes Advance Directives Date on File: 04/11/22 service: No Current occupational status: employed Sexual orientation: Straight/Heterosexual Meds Allergies Allergy/AdvReac Type Severity Reaction Status Date / Time codeine [CODEINE] Allergy Unknown delayed Verified 11/25/22 10:40 responses 02/24/17 Home Medications Medication Instructions Recorded Confirmed Last Taken Type metformin 1,000 mg tablet,extended 1,000 mg PO BID 11/15/22 03/07/23 11/15/22 History release 24hr sitagliptin phosphate 50 mg tablet 50 mg PO DAILY 11/15/22 03/07/23 11/15/22 History (Januvia) valsartan 160 mg tablet 160 mg PO DAILY 11/15/22 03/07/23 11/15/22 History dulaglutide 1.5 mg/0.5 mL 1.5 mg subcut QWEEK 03/07/23 03/07/23 Unknown History subcutaneous pen injector (Trulicity) Exam Exam Date and Time: March 26, 2023 0654 Height,Weight and Vital Signs: Height 5 ft 8 in Weight 83.915 kg Last Vital Signs Temp 97.6 F 03/26/23 06:31 Pulse 91 03/26/23 06:31 Resp 16 03/26/23 06:31 BP 161/87 H 03/26/23 06:31 Pulse Ox 95 03/26/23 06:31 O2 Del Method Room Air 03/26/23 06:31 Pertinent Lab Results Pertinent Lab Results: Laboratory Tests 03/26/23 06:30 POC Glucose 109 Airway Mallampati Class: II TM Dist: >3cm Neck ROM: Full Denture: Upper and Lower Heart: rrr Lungs: cta Assessment and Plan Assessment Anesthesia Assessment: Anesthesia Plan Discussed and Chart Reviewed Final Anesthetic Review Family History of Problems with Anesthesia: No History of Problems with Anesthesia: No NPO: Yes ASA Class: III Final Preanesthetic Review: No Changes in Pt Med Stat, Meds/Allgs Chart Reviewed and Consent Obtained/Reviewed Patient Risk: Intermediate Procedure Risk: Intermediate Anesthetic Plan Anesthetic Plan: GA Disposition: Standard PACU
--- NOTE | 2023-03-26 06:56 | MHC.SHP ---
Pre-Procedural Eval Section A Date of Service: 03/26/23 The patient is an INPATIENT: No Changes since office visit: Yes New Medical Problems, Yes Changes in Medication and Yes Patient answered all questions; No Cold of Flu in the past 2 weeks The History & Physical has been completed within 30 days and I have reviewed it.: Yes Section B Chief Complaint: depression Allergies: Allergies Allergy/AdvReac Type Severity Reaction Status Date / Time codeine [CODEINE] Allergy Unknown delayed Verified 11/25/22 10:40 responses 02/24/17 Plan I have reviewed the history and physical and performed a pertinent physical examination on my patient. No changes have occurred unless specified. Time Spent With Patient Time: Total time managing care of this patient today ____ minutes.
--- NOTE | 2023-03-26 06:57 | HO.ECTPROC ---
ECT Procedure Note Diagnosis/Treatment Date of Service: 03/26/23 Diagnosis: Major Depressive Disorder Previous ECT Date: 03/21/23 Current Treatment Number: 5 Treatment: Series Interval Clinical Notes: Pt generally feeling better had last wk blurry vision ? some improvement mood much more stable d/c summary reviewed no si tolerating ect well Time: Total time managing care of this patient today ____ minutes. ECT Settings Device: THYMATRON DGx Electrode Placement: Right Unilateral Program/Pulse Width: 0.50 Energy Percent: 100 Seizure Duration By EEG (in seconds): 58 Medications Administration General Anesthetic: Etomidate (14, infiltrated, later received another 14 with new IV) Muscle Relaxant: Succinylcholine (140) and Rocuronium (5) Ancillary Medications Analgesics: Torodol - Pre ECT (30) Anti-emetics: Zofran - Pre ECT Airway Management Airway Management: Bag Mask Ventilation Treatment Recommendations No Changes Recommended: No change Notes: lma not needed did receive glyco pre tx for secretions then esmolol post for tachycardia htn with good effect Pt Tolerated Procedure w/o Issue: Yes
--- NOTE | 2023-03-26 08:19 | ECG_ITS ---
Test Reason : post etc Blood Pressure : / mmHG Vent. Rate : 106 BPM Atrial Rate : 106 BPM P-R Int : 142 ms QRS Dur : 142 ms QT Int : 402 ms P-R-T Axes : 036 006 110 degrees QTc Int : 533 ms Sinus tachycardia Left bundle branch block Abnormal ECG When compared with ECG of 11-MAR-2023 08:27, Left bundle branch block is now Present Heart rate has increased QT has lengthened Referred By: Anila Montgomery Electronically Signed By:JENARO DOWLING
[2023-03-26] MEDS: Acetaminophen 325 MG TABLET 650 MG PO (09:39)
--- NOTE | 2023-03-28 16:48 | HO.ECTPROC ---
ECT Procedure Note Diagnosis/Treatment Date of Service: 03/28/23 Diagnosis: Major Depressive Disorder Previous ECT Date: 03/26/23 Current Treatment Number: 6 Treatment: Series Interval Clinical Notes: Patient clearly feeling emotionally better still has a strained relationship with his . No SI no cognitive problematic side effects had some chest discomfort after last ECT thought to be non cardiac and patient has been feeling physically well Time: Total time managing care of this patient today 35____ minutes. ECT Settings Device: THYMATRON DGx Electrode Placement: Right Unilateral Program/Pulse Width: 0.50 Energy Percent: 100 Seizure Duration By EEG (in seconds): 44 Medications Administration General Anesthetic: Etomidate (14) Muscle Relaxant: Succinylcholine (140) Ancillary Medications Analgesics: Torodol - Pre ECT (15) Anti-emetics: Zofran - Pre ECT Cardiovascular Medications: Labetolol (5 plus 5) and Other (nitro iv 25 x 3 ) Airway Management Airway Management: Bag Mask Ventilation Treatment Recommendations No Changes Recommended: No change Electrode Placement: Right Unilateral Program/Pulse Width: 0.50 Energy Percent: 44 Notes: Patient had postop hypertension had no discomfort or shortness breath. Treated as noted above. Discussed with Anesthesia patient preoperatively prior to his next treatment will take his antihypertensives with a sip of water at home. This was reviewed with the patient follow-up treatment in 3 days
== END 2023-03-26 10:15 | disposition home or self-care (01) ==
PROVIDERS: PCP Family Medicine; Visit Provider Psychiatry & Neurology Psychiatry
PROC: (CPT 90870; principal; 2023-03-26 07:30)
DX: F33.2 Major depressive disorder, recurrent severe without psychotic features (principal); Z63.0 Problems in relationship with spouse or partner; I44.7 Left bundle-branch block, unspecified; I10 Essential (primary) hypertension; E11.621 Type 2 diabetes mellitus with foot ulcer; L97.509 Non-pressure chronic ulcer of other part of unspecified foot with unspecified severity; Z79.85 Long-term (current) use of injectable non-insulin antidiabetic drugs
CPT/HCPCS: 82947; 90870; 93005; J0330; J1885; J2405

== ENCOUNTER → 2023-03-26 05:48 | Outpatient (BNV) | payer BC, SELFPAY | PROVIDERS: PCP Family Medicine; Visit Provider Psychiatry & Neurology Psychiatry | DX: F33.3 Major depressive disorder, recurrent, severe with psychotic symptoms (principal) | CPT/HCPCS: 90870 ==

== ENCOUNTER 2023-03-28 07:54 | Day surgery (SDC) | payer BC, SELFPAY ==
[2023-03-28 08:41] VITALS: BP 176/92; PULSE 92; RESP 18; TEMP 36.4; O2SAT 98; BMI 28.1
--- NOTE | 2023-03-28 08:41 | HO.ANESPROP2 ---
[facility] Active Problems Active Problems: All Active Problems (Updated 03/24/23 @ 14:24 by Aquilino Vences MD) Blurred vision (Acute) Major depressive disorder, recurrent severe without psychotic features (Acute) Preop cardiovascular exam (Acute) Recurrent major depression (Acute) Persistent depressive disorder (Acute) Depression (Acute) Suicidal ideation (Acute) ILD (interstitial lung disease) (Acute) Persistent cough (Acute) Acute respiratory failure with hypoxia (Acute) Community acquired pneumonia (Acute) Heart disease, unspecified (Acute) Dizziness (Acute) Past Medical History Medical History (Updated 03/24/23 @ 14:24 by Aquilino Vences MD) Major depressive disorder, recurrent severe without psychotic features ILD (interstitial lung disease) Preop cardiovascular exam Osteomyelitis Diabetic foot ulcer LBBB (left bundle branch block) Type 2 diabetes mellitus with foot ulcer HTN (hypertension) Suicidal ideation Depression Family History Family History Father Neck malignant neoplasm Family history of problems with anesthesia: No Surgical History Surgical History H/O: vasectomy History of Problems with Anesthesia: No Social History Social History Household Members: Family Housing: House Do you presently have visiting nurse or other home services: No Alcohol intake: current Alcohol intake frequency: a few times a month Patient Tobacco Use Status: Never used Tobacco e-Cigarette/Vaping Use: Never Used Second Hand Smoke Exposure: No Substance Use Type: Marijuana Advance Directives: No Advance Directives Information Provided: Yes Advance Directives Date on File: 04/11/22 service: No Current occupational status: employed Sexual orientation: Straight/Heterosexual Meds Allergies Allergy/AdvReac Type Severity Reaction Status Date / Time codeine [CODEINE] Allergy Unknown delayed Verified 11/25/22 10:40 responses 02/24/17 Active Medications: Current Medications Lactated Ringer's (Lr) 1,000 mls @ 50 mls/hr IVCONT .Q20H [facility] Home Medications Medication Instructions Recorded Confirmed Last Taken Type metformin 1,000 mg tablet,extended 1,000 mg PO BID 11/15/22 03/07/23 11/15/22 History release 24hr sitagliptin phosphate 50 mg tablet 50 mg PO DAILY 11/15/22 03/07/23 11/15/22 History (Januvia) valsartan 160 mg tablet 160 mg PO DAILY 11/15/22 03/07/23 11/15/22 History dulaglutide 1.5 mg/0.5 mL 1.5 mg subcut QWEEK 03/07/23 03/07/23 Unknown History subcutaneous pen injector (Trulicity) Exam Exam Date and Time: March 28, 2023 0841 Airway Mallampati Class: II TM Dist: >3cm Neck ROM: Full Denture: Upper and Lower Heart: rrr Lungs: cta Assessment and Plan Assessment Anesthesia Assessment: Anesthesia Plan Discussed and Chart Reviewed Final Anesthetic Review Family History of Problems with Anesthesia: No History of Problems with Anesthesia: No NPO: Yes ASA Class: III Final Preanesthetic Review: No Changes in Pt Med Stat, Meds/Allgs Chart Reviewed and Consent Obtained/Reviewed Patient Risk: Intermediate Procedure Risk: Intermediate Anesthetic Plan Anesthetic Plan: GA Disposition: Standard PACU
--- NOTE | 2023-03-28 08:53 | MHC.SHP ---
Pre-Procedural Eval Section A Date of Service: 03/28/23 The patient is an INPATIENT: No Changes since office visit: Yes Patient answered all questions; No Cold of Flu in the past 2 weeks, No New Medical Problems and No Changes in Medication The History & Physical has been completed within 30 days and I have reviewed it.: Yes Section B Chief Complaint: depression Details of Present Illness: recurrent depression Medical History: Significant History (htn non cardiac cp neg w/u at [facility]) Allergies: Allergies Allergy/AdvReac Type Severity Reaction Status Date / Time codeine [CODEINE] Allergy Unknown delayed Verified 11/25/22 10:40 responses 02/24/17 Review of Systems Sugical H&P ROS: Negative: Cardiovascular, Respiratory and Neurological and Yes, Specify: Psychiatric (improved mood ) Exam Surgical H&P Exam: Normal: Heart, Normal: Lungs and Normal: Neurological Plan Diagnosis/Plan: Unchanged I have reviewed the history and physical and performed a pertinent physical examination on my patient. No changes have occurred unless specified. Time Spent With Patient Time: Total time managing care of this patient today ____ minutes.
[2023-03-28 08:55] LABS: Glucose, Whole Blood 160 mg/dL (60-115)
[2023-03-28 10:31] VITALS: BP 169/98; PULSE 93; RESP 16; TEMP 36.2; O2SAT 94
[2023-03-28 10:36] VITALS: BP 154/93; PULSE 91; RESP 20; O2SAT 94
[2023-03-28 10:46] VITALS: BP 148/88; PULSE 84; RESP 20; O2SAT 92
[2023-03-28 11:01] VITALS: BP 153/81; PULSE 83; RESP 20; O2SAT 91
[2023-03-28 11:12] VITALS: BP 173/80; PULSE 87; RESP 18; TEMP 36.4; O2SAT 95
--- NOTE | 2023-05-11 19:48 | HO.ECTPROC ---
ECT Procedure Note Diagnosis/Treatment Date of Service: 03/28/23 Diagnosis: Major Depressive Disorder Previous ECT Date: 03/26/23 Current Treatment Number: 6 Treatment: Series Interval Clinical Notes: pt had some sx post ect last tx no further sx noted pt feeling well physically Time: Total time managing care of this patient today ____ minutes. ECT Settings Device: THYMATRON DGx Electrode Placement: Right Unilateral Program/Pulse Width: 0.50 Energy Percent: 100 Seizure Duration By EEG (in seconds): 44 Medications Administration General Anesthetic: Etomidate (14) Muscle Relaxant: Succinylcholine (140) and Rocuronium (5) Ancillary Medications Analgesics: Torodol - Pre ECT (30) Anti-emetics: Zofran - Pre ECT (4) Miscillaneous Medications: Other (nitroglycerin for htn) Airway Management Airway Management: Bag Mask Ventilation Treatment Recommendations No Changes Recommended: No change Notes: some improvement noted by the pt no c/o side effects
== END 2023-03-28 11:45 | disposition home or self-care (01) ==
PROVIDERS: PCP Family Medicine; Visit Provider Psychiatry & Neurology Psychiatry
PROC: (CPT 90870; principal; 2023-03-28 09:30)
DX: F33.2 Major depressive disorder, recurrent severe without psychotic features (principal); R45.851 Suicidal ideations; I44.7 Left bundle-branch block, unspecified; I10 Essential (primary) hypertension; M86.9 Osteomyelitis, unspecified; E11.621 Type 2 diabetes mellitus with foot ulcer; Z79.85 Long-term (current) use of injectable non-insulin antidiabetic drugs; Z79.899 Other long term (current) drug therapy; Z88.5 Allergy status to narcotic agent; F12.90 Cannabis use, unspecified, uncomplicated
CPT/HCPCS: 82947; 90870; J0330; J1885; J2405

== ENCOUNTER 2023-03-31 06:59 | Day surgery (SDC) | payer BC, SELFPAY ==
[2023-03-31] VITALS (7 sets, daily range): BP systolic 157–204; BP diastolic 77–106; PULSE 85–92; RESP 16–18; TEMP 36.6–36.8; O2SAT 93–97; BMI 28.1
--- NOTE | 2023-03-31 07:42 | MHC.SHP ---
Pre-Procedural Eval Section A Date of Service: 03/31/23 The patient is an INPATIENT: No Changes since office visit: Yes Cold of Flu in the past 2 weeks, Yes New Medical Problems, Yes Changes in Medication and Yes Patient answered all questions The History & Physical has been completed within 30 days and I have reviewed it.: Yes Section B Chief Complaint: depression Allergies: Allergies Allergy/AdvReac Type Severity Reaction Status Date / Time codeine [CODEINE] Allergy Unknown delayed Verified 11/25/22 10:40 responses 02/24/17 Plan I have reviewed the history and physical and performed a pertinent physical examination on my patient. No changes have occurred unless specified. Time Spent With Patient Time: Total time managing care of this patient today ____ minutes.
--- NOTE | 2023-03-31 07:48 | HO.ANESPROP2 ---
[facility] Active Problems Active Problems: All Active Problems (Updated 03/24/23 @ 14:24 by Aquilino Vences MD) Blurred vision (Acute) Major depressive disorder, recurrent severe without psychotic features (Acute) Preop cardiovascular exam (Acute) Recurrent major depression (Acute) Persistent depressive disorder (Acute) Depression (Acute) Suicidal ideation (Acute) ILD (interstitial lung disease) (Acute) Persistent cough (Acute) Acute respiratory failure with hypoxia (Acute) Community acquired pneumonia (Acute) Heart disease, unspecified (Acute) Dizziness (Acute) Past Medical History Medical History (Updated 03/24/23 @ 14:24 by Aquilino Vences MD) Major depressive disorder, recurrent severe without psychotic features ILD (interstitial lung disease) Preop cardiovascular exam Osteomyelitis Diabetic foot ulcer LBBB (left bundle branch block) Type 2 diabetes mellitus with foot ulcer HTN (hypertension) Suicidal ideation Depression Family History Family History Father Neck malignant neoplasm Family history of problems with anesthesia: No Surgical History Surgical History H/O: vasectomy History of Problems with Anesthesia: No Social History Social History Household Members: Family Housing: House Do you presently have visiting nurse or other home services: No Alcohol intake: current Alcohol intake frequency: a few times a month Patient Tobacco Use Status: Never used Tobacco e-Cigarette/Vaping Use: Never Used Second Hand Smoke Exposure: No Substance Use Type: Marijuana Advance Directives: No Advance Directives Information Provided: Yes Advance Directives Date on File: 04/11/22 service: No Current occupational status: employed Sexual orientation: Straight/Heterosexual Meds Allergies Allergy/AdvReac Type Severity Reaction Status Date / Time codeine [CODEINE] Allergy Unknown delayed Verified 11/25/22 10:40 responses 02/24/17 Home Medications Medication Instructions Recorded Confirmed Last Taken Type metformin 1,000 mg tablet,extended 1,000 mg PO BID 11/15/22 03/07/23 11/15/22 History release 24hr sitagliptin phosphate 50 mg tablet 50 mg PO DAILY 11/15/22 03/07/23 11/15/22 History (Januvia) valsartan 160 mg tablet 160 mg PO DAILY 11/15/22 03/07/23 11/15/22 History dulaglutide 1.5 mg/0.5 mL 1.5 mg subcut QWEEK 03/07/23 03/07/23 Unknown History subcutaneous pen injector (Trulicity) Exam Exam Date and Time: March 31, 2023 0748 Height,Weight and Vital Signs: Height 5 ft 8 in Weight 83.915 kg Last Vital Signs Temp 97.8 F 03/31/23 07:09 Pulse 90 03/31/23 07:09 Resp 18 03/31/23 07:09 BP 177/92 H 03/31/23 07:09 Pulse Ox 97 03/31/23 07:09 O2 Del Method Room Air 03/31/23 07:09 Airway Mallampati Class: II TM Dist: >3cm Neck ROM: Full Denture: Upper and Lower Heart: rrr Lungs: cta Assessment and Plan Assessment Anesthesia Assessment: Anesthesia Plan Discussed and Chart Reviewed Final Anesthetic Review Family History of Problems with Anesthesia: No History of Problems with Anesthesia: No NPO: Yes ASA Class: III Final Preanesthetic Review: No Changes in Pt Med Stat, Meds/Allgs Chart Reviewed and Consent Obtained/Reviewed Patient Risk: Intermediate Procedure Risk: Intermediate Anesthetic Plan Anesthetic Plan: GA Disposition: Standard PACU
[2023-03-31 08:02] LABS: Glucose, Whole Blood 143 mg/dL (60-115)
--- NOTE | 2023-03-31 08:06 | HO.ECTPROC ---
ECT Procedure Note Diagnosis/Treatment Date of Service: 03/31/23 Diagnosis: Bipolar disorder Previous ECT Date: 03/28/23 Current Treatment Number: 7 Treatment: Series Interval Clinical Notes: The patient reported euthymia, he feels much better with ECT. Procedure done without any changes, no side effects. He needed only 1 dose of Nitro after procedure. Time: Total time managing care of this patient today __30__ minutes. ECT Settings Device: THYMATRON DGx Electrode Placement: Right Unilateral Program/Pulse Width: 0.50 Energy Percent: 100 Medications Administration General Anesthetic: Etomidate (14) Muscle Relaxant: Succinylcholine (140) Ancillary Medications Analgesics: Torodol - Pre ECT Anti-emetics: Zofran - Pre ECT Cardiovascular Medications: Other (Nitroglycerine 5 mg one time) Airway Management Airway Management: Bag Mask Ventilation Treatment Recommendations No Changes Recommended: No change Pt Tolerated Procedure w/o Issue: Yes
== END 2023-03-31 09:29 | disposition home or self-care (01) ==
PROVIDERS: PCP Family Medicine; Visit Provider Psychiatry & Neurology Psychiatry
PROC: (CPT 90870; principal; 2023-03-31 07:30)
DX: F31.9 Bipolar disorder, unspecified (principal); F34.9 Persistent mood [affective] disorder, unspecified; I44.7 Left bundle-branch block, unspecified; I10 Essential (primary) hypertension; M86.9 Osteomyelitis, unspecified; E11.621 Type 2 diabetes mellitus with foot ulcer; L97.509 Non-pressure chronic ulcer of other part of unspecified foot with unspecified severity; Z79.85 Long-term (current) use of injectable non-insulin antidiabetic drugs; Z88.5 Allergy status to narcotic agent; F12.90 Cannabis use, unspecified, uncomplicated
CPT/HCPCS: 82947; 90870; J0330; J1885; J2405

== ENCOUNTER → 2023-03-31 06:59 | Outpatient (BNV) | payer BC, SELFPAY | PROVIDERS: PCP Family Medicine; Visit Provider Psychiatry & Neurology Psychiatry | DX: F33.3 Major depressive disorder, recurrent, severe with psychotic symptoms (principal) | CPT/HCPCS: 90870 ==

== ENCOUNTER 2023-04-02 06:09 | Day surgery (SDC) | payer BC, SELFPAY ==
[2023-04-02] VITALS (8 sets, daily range): BP systolic 121–189; BP diastolic 69–100; PULSE 89–103; RESP 16–21; TEMP 35.7–36.8; O2SAT 93–98; BMI 28.1
[2023-04-02 06:43] LABS: Glucose, Whole Blood 224 mg/dL (60-115)
--- NOTE | 2023-04-02 06:54 | P.CONAN_ITS ---
[facility] Active Problems Active Problems: All Active Problems (Updated 04/02/23 @ 00:03 by Background Daemon) Blurred vision (Acute) Major depressive disorder, recurrent severe without psychotic features (Acute) ILD (interstitial lung disease) (Acute) Persistent cough (Acute) Acute respiratory failure with hypoxia (Acute) Community acquired pneumonia (Acute) Dizziness (Acute) Past Medical History Medical History (Updated 04/02/23 @ 00:03 by Background Daemon) Suicidal ideation Heart disease, unspecified Major depressive disorder, recurrent severe without psychotic features ILD (interstitial lung disease) Preop cardiovascular exam Osteomyelitis Diabetic foot ulcer LBBB (left bundle branch block) Type 2 diabetes mellitus with foot ulcer HTN (hypertension) Suicidal ideation Depression Family History Family History Father Neck malignant neoplasm Family history of problems with anesthesia: No Surgical History Surgical History H/O: vasectomy History of Problems with Anesthesia: No Social History Social History Household Members: Family Housing: House Do you presently have visiting nurse or other home services: No Alcohol intake: current Alcohol intake frequency: a few times a month Patient Tobacco Use Status: Never used Tobacco e-Cigarette/Vaping Use: Never Used Second Hand Smoke Exposure: No Substance Use Type: Marijuana Advance Directives: No Advance Directives Information Provided: Yes Advance Directives Date on File: 04/11/22 service: No Current occupational status: employed Sexual orientation: Straight/Heterosexual Meds Allergies Allergy/AdvReac Type Severity Reaction Status Date / Time codeine [CODEINE] Allergy Unknown delayed Verified 11/25/22 10:40 responses 02/24/17 Home Medications Medication Instructions Recorded Confirmed Last Taken Type metformin 1,000 mg tablet,extended 1,000 mg PO BID 11/15/22 03/07/23 11/15/22 History release 24hr sitagliptin phosphate 50 mg tablet 50 mg PO DAILY 11/15/22 03/07/23 11/15/22 History (Januvia) valsartan 160 mg tablet 160 mg PO DAILY 11/15/22 03/07/23 11/15/22 History dulaglutide 1.5 mg/0.5 mL 1.5 mg subcut QWEEK 03/07/23 03/07/23 Unknown History subcutaneous pen injector (Trulicity) Exam Exam Date and Time: April 02, 2023 0654 Height,Weight and Vital Signs: Height 5 ft 8 in Weight 83.915 kg Last Vital Signs Temp 96.3 F L 04/02/23 06:35 Pulse 89 04/02/23 06:35 Resp 16 04/02/23 06:35 BP 189/91 H 04/02/23 06:35 Pulse Ox 98 04/02/23 06:35 O2 Del Method Room Air 04/02/23 06:35 Pertinent Lab Results Pertinent Lab Results: Laboratory Tests 04/02/23 06:40 POC Glucose 224 H Airway Mallampati Class: II TM Dist: >3cm Neck ROM: Full Denture: Upper and Lower Heart: rrr Lungs: cta Assessment and Plan Assessment Anesthesia Assessment: Anesthesia Plan Discussed and Chart Reviewed Final Anesthetic Review Family History of Problems with Anesthesia: No History of Problems with Anesthesia: No NPO: Yes ASA Class: III Final Preanesthetic Review: No Changes in Pt Med Stat, Meds/Allgs Chart Reviewed and Consent Obtained/Reviewed Patient Risk: Intermediate Procedure Risk: Intermediate Anesthetic Plan Anesthetic Plan: GA Disposition: Standard PACU
--- NOTE | 2023-04-02 07:19 | MHC.SHP ---
Pre-Procedural Eval Section A Date of Service: 04/02/23 The patient is an INPATIENT: No Changes since office visit: Yes Cold of Flu in the past 2 weeks, Yes New Medical Problems, Yes Changes in Medication and Yes Patient answered all questions The History & Physical has been completed within 30 days and I have reviewed it.: Yes Section B Chief Complaint: depression Allergies: Allergies Allergy/AdvReac Type Severity Reaction Status Date / Time codeine [CODEINE] Allergy Unknown delayed Verified 11/25/22 10:40 responses 02/24/17 Plan I have reviewed the history and physical and performed a pertinent physical examination on my patient. No changes have occurred unless specified. Time Spent With Patient Time: Total time managing care of this patient today ____ minutes.
--- NOTE | 2023-04-02 08:09 | HO.ECTPROC ---
ECT Procedure Note Diagnosis/Treatment Date of Service: 04/02/23 Previous ECT Date: 03/31/23 Current Treatment Number: 8 Treatment: Series Interval Clinical Notes: pt doing well no c/o side effects took antihyp at home prior to tx Time: Total time managing care of this patient today ____ minutes. ECT Settings Device: THYMATRON DGx Electrode Placement: Right Unilateral Program/Pulse Width: 0.50 Energy Percent: 100 Seizure Duration By EEG (in seconds): 42 Medications Administration General Anesthetic: Etomidate (14) Muscle Relaxant: Succinylcholine (140) and Rocuronium (5) Ancillary Medications Analgesics: Torodol - Pre ECT (30) Anti-emetics: Zofran - Pre ECT (4) Airway Management Airway Management: Bag Mask Ventilation Treatment Recommendations No Changes Recommended: No change Notes: hypertensive post needed iv nitro give all ntihyp with sip of water prior to tx at home ? ivlabetolol next tx transition to maint
== END 2023-04-02 09:08 | disposition home or self-care (01) ==
PROVIDERS: PCP Family Medicine; Visit Provider Psychiatry & Neurology Psychiatry
PROC: (CPT 90870; principal; 2023-04-02 07:00)
DX: F33.2 Major depressive disorder, recurrent severe without psychotic features (principal); I44.7 Left bundle-branch block, unspecified; I10 Essential (primary) hypertension; I42.8 Other cardiomyopathies; E11.621 Type 2 diabetes mellitus with foot ulcer; L97.509 Non-pressure chronic ulcer of other part of unspecified foot with unspecified severity; Z79.899 Other long term (current) drug therapy; Z79.85 Long-term (current) use of injectable non-insulin antidiabetic drugs; Z79.84 Long term (current) use of oral hypoglycemic drugs
CPT/HCPCS: 82947; 90870; J0330; J1885; J2405

== ENCOUNTER → 2023-04-02 06:09 | Outpatient (BNV) | payer BC, SELFPAY | PROVIDERS: PCP Family Medicine; Visit Provider Psychiatry & Neurology Psychiatry | DX: F33.3 Major depressive disorder, recurrent, severe with psychotic symptoms (principal) | CPT/HCPCS: 90870 ==

== ENCOUNTER 2023-04-11 06:00 | Day surgery (SDC) | payer BC, SELFPAY ==
[2023-04-11] VITALS (10 sets, daily range): BP systolic 104–161; BP diastolic 55–96; PULSE 77–85; RESP 15–22; TEMP 36–36.4; O2SAT 90–97; BMI 28.9
--- OUTSIDE RECORDS SUMMARY | 2023-04-11 06:02 | XMS_ITS | Continuity of Care Document ---
Author Name Unknown Organization [facility] [place] Terry lt Address [address] [place] [address]- Care Team Providers Care Online Content Coordinator Name Role Phone Raysa JAY, Manpreet Garcia Primary Care Physician Encounter [facility] Date(s): 11/14/22 - 12/14/22 [facility] Adult [address] [place] [address]- Allergies, Adverse Reactions, Alerts Substance Reaction Severity Status codeine loopy Active Immunizations Given and Recorded Vaccine Date Status Refusal Reason [id number] 12y+ bivalent booster vax 06/04/22 Recorded influenza virus vaccine, inactivated 04/13/22 Declan rded influenza virus vaccine, inactivated 04/27/21 Declan rded influenza virus vaccine, inactivated 1 05/10/19 Gi thong influenza virus vaccine, inactivated 04/25/18 Give n influenza virus vaccine, inactivated 2 04/12/14 Gi thong tetanus/diphtheria/pertussis, acel(Tdap) 02/07/22 Recorded SARS-CoV-2 (COVID-19) mRNA BNT-162b2 vac 06/21/21 Recorded SARS-CoV-2 (COVID-19) mRNA BNT-162b2 vac 10/22/20 Recorded SARS-CoV-2 (COVID-19) mRNA BNT-162b2 vac 10/01/20 Recorded Influenza Virus Vaccine (oldterm) 04/06/20 Recorde d Fluarix (oldterm) 3 05/03/11 Given Tet/diphth/pertussis, acel (oldterm) 4 11/26/10 Gi thong Not Given Vaccine Date Status Refusal Reason pneumococcal 23-valent vaccine 5 06/04/19 Not Give n Patient Refuses 1Result Comment: [facility]-[id number] 2Admin Note: At work 3Admin Note: REFUSED 4Admin Note: 2009 OLD PCP 5Result Comment: will follow up with HCP Medications ARIPiprazole 2 mg oral tablet 2 mg, 1, tablet, By Mouth, Daily, # 30 tablet, Refills 0, Tot. Refills 0, Maintenance, 08/07/22 9:16:00 EST, Route to Pharmacy Electronically, [facility] #[id number], Partial fill upon patient request if the prescription is for a schedule II opio... Start Date: 08/07/22 Status: Ordered buPROPion 300 mg/24 hours (XL) oral tablet, extended release 1 tablet = 300 mg, By Mouth, Daily, # 30 tablet, 0 Refills, Maintenance, 04/04/22 16:38:00 EDT, ER Tablet, Partial fill upon patient request if the prescription is for a schedule II opioid drug. Start Date: 04/04/22 Status: Ordered erythromycin 0.5% ophthalmic ointment 0.5 inches, Eyes, Both, 4 times a day, # 3.5 Gm, 0 Refills, Maintenance, 11/12/22 10:13:00 EDT, Ophth Ointment, [facility]/pharmacy #[id number], Partial fill upon patient request if the prescription is for a schedule II opioid drug., 0.5 inches Eyes, Both 4 times... Start Date: 11/12/22 Stop Date: 11/17/22 Status: Ordered Januvia 50 mg oral tablet See Instructions, TAKE 1 TABLET BY MOUTH DAILY, # 90 tablet, 3 Refills, Maintenance, 11/17/22 17:42:00 EDT, [facility], 173, cm, 11/12/22 10:12:00 EDT, Height, 84, kg, 08/27/22 17:57:00 EST, Dry Weight Start Date: 11/17/22 Status: Ordered Januvia 50 mg oral tablet 1 tablet, By Mouth, Daily, # 90 tablet, 1 Refills, Maintenance, 09/20/22 15:42:00 EST, [facility] #[id number], 173, cm, 08/30/22 14:53:00 EST, Height, 84, kg, 08/27/22 17:57:00 EST, Dry Weight Start Date: 09/20/22 Status: Ordered Lantus Solostar Pen 100 units/mL subcutaneous solution = 10 units, Subcutaneous Injection, Daily at bedtime, for 30 days, # 10 mL, 0 Refills, Acute 12/24/22 16:05:00 EDT, 11/24/22 16:05:00 EDT, Solution, [facility]/pharmacy #[id number], Partial fill upon patient request if the prescription is for a schedule II opioid... Start Date: 11/24/22 Stop Date: 12/24/22 Status: Ordered Lipitor 80 mg oral tablet 1 tablet = 80 mg, By Mouth, Daily, # 30 tablet, 0 Refills, Maintenance, 12/11/22 17:40:00 EDT, Tablet, [facility]/pharmacy #[id number], Partial fill upon patient request if the prescription is for a schedule II opioid drug., 173, cm, 11/28/22 16:13:00 EDT, Height,... Start Date: 12/11/22 Status: Ordered MetFORMIN (Eqv-Glucophage XR) 500 mg oral tablet, extended release 2 tablet, By Mouth, 2 times a day, # 360 tablet, 3 Refills, [facility], 172, cm, 02/05/2210:10:00 EDT, Height, 79, kg, 09/19/21 11:17:00 EST, Dry Weight Start Date: 03/06/22 Status: Ordered Norvasc 5 mg oral tablet 5 mg, 1, tablet, By Mouth, Daily, # 90 tablet, Refills 3, Tot. Refills 3, Maintenance, 11/29/22 4:11:00 EDT, Route to Pharmacy Electronically, [facility] ([facility]), Partial fillupon patient request if the prescription is for a s... Start Date: 11/29/22 Status: Ordered Pen [place], 31 G x 5 mm BD Ultra Fine III See Instructions, for 30 days, # 100 each, Refills 0, Tot. Refills 0, Acute 12/24/22 16:06:00 EDT, use as directed for Type 2 Diabetes Mellitus, 11/24/22 16:06:00 EDT, Supply, 173, cm, 11/12/22 10:12:00 EDT, Height, 84, kg, 08/27/22 17:57:00 EST, Dry... Start Date: 11/24/22 Stop Date: 12/24/22 Status: Ordered PT eval and treat for vestibular rehab PT eval and treat for vestibular rehab, See Instructions, # 1 each, Refills 0, Tot. Refills 0, Maintenance, PT eval and treat for vestibular rehab, 08/29/22 6:26:00 EST, Compound Start Date: 08/29/22 Status: Ordered Trulicity Pen 1.5 mg/0.5 mL subcutaneous solution = 1.5 mg, Subcutaneous Infusion, Every week, # 6 mL, 3 Refills, Maintenance, 11/29/22 4:11:00 EDT, [facility] ([facility]), Partial fill upon patient request if the prescription isfor a schedule II opioid drug., 173, cm, 11/28/22 1... Start Date: 11/29/22 Status: Ordered valsartan 160 mg oral tablet 160 mg, 1, tablet, By Mouth, Daily, # 90 tablet, Refills 3, Tot. Refills 3, Maintenance, 11/29/22 4:11:00 EDT, Route to Pharmacy Electronically, [facility] ([facility]), Partial fill upon patient request if the prescription is for a... Start Date: 11/29/22 Status: Ordered Walker with wheels Walker with wheels, See Instructions, # 1 each, Refills 0, Tot. 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 Confirmed Active Insulin long-term use Confirmed Active Erectile dysfunction Confirmed Active Rash Confirmed Active Insulin long-term use Confirmed Active Hypercholesterolemia Confirmed Active Ineffective self health management Confirmed Active Major depressive disorder, recurrent Confirmed Active Right flank pain Confirmed Active Uncontrolled type 2 diabetes mellitus Confirmed Active Diabetes mellitus type 2, uncontrolled Confirmed Active Social History Social History Type Response Smoking Status Never smoker entered on: 06/30/13 Sex Patient Care team information Care Team Personnel Name: Kelly Swanson RN Position: [facility] RN Member Role: Primary Care Nurse Name: Leobardo INGRAM, Hoa Position: [facility] RN Member Role: Primary Care Nurse Name: Raysa JAY, Manpreet Garcia Position: [facility] Physician - Primary Care Member Role: PCP Address: Address: [address] [place] [address]- Name: Eliane Shelton RN Position: S RN Member Role: Primary Care Nurse Name: Faith Dixon RN Position: [facility] RN Member Role: Primary Care Nurse Care Team Related Persons Name: ADINA PIERRE Address: home [address] [place] [address] Name: KANDACE PIERRE Address: home [address] [place] [address] Name: ZACK PIERRE Address: home [address] [place] [address]
--- OUTSIDE RECORDS SUMMARY | 2023-04-11 06:02 | XMS_ITS | Continuity of Care Document ---
Author Name Unknown Organization [facility] Terry lt Address [address] [place] [address]- Care Team Providers Care Box Sealing Machine Operator Name Role Phone Raysa JAY, Manpreet Garcia Primary Care Phys[id number] Date(s[facility] 03/21/22 - 03/28/22 [facility] Adult [address] [place] [address]- Attending Physician: Manpreet Tabares MD Referring Physician: Manpreet Tabares MD Allergies, Adverse Reactions, Alerts Substance Reaction Severity Status codeine loopy Active Immunizations Given and Recorded Vaccine Date Status Refusal Reason SARS-CoV-2 (COVID-19) mRNA BNT-162b2 vac 06/21/21 Recorded SARS-CoV-2 (COVID-19) mRNA BNT-162b2 vac 10/22/20 Recorded SARS-CoV-2 (COVID-19) mRNA BNT-162b2 vac 10/01/20 Recorded influenza virus vaccine, inactivated 04/27/21 Declan rded influenza virus vaccine, inactivated 1 05/10/19 Gi thong influenza virus vaccine, inactivated 04/25/18 Give n influenza virus vaccine, inactivated 2 04/12/14 Gi thong Influenza Virus Vaccine (oldterm) 04/06/20 Recorde d Fluarix (oldterm) 3 05/03/11 Given Tet/diphth/pertussis, acel (oldterm) 4 11/26/10 Gi thong Not Given Vaccine Date Status Refusal Reason pneumococcal 23-valent vaccine 5 06/04/19 Not Give n Patient Refuses 1Result Comment: [id number] 2Admin Note: At work 3Admin Note: REFUSED 4Admin Note: 2009 OLD PCP 5Result Comment: will follow up with HCP Medications ARIPiprazole 2 mg oral tablet 2 mg, 1, tablet, By Mouth, Daily, # 30 tablet, Refills 0, Maintenance, 09/18/21 21:36:00 EST, Partial fill upon patient request if the prescription is for a schedule II opioid drug. Start Date: 09/18/21 Status: Ordered Januvia 50 mg oral tablet 1 tablet, By Mouth, Daily, # 90 tablet, 3 Refills, Maintenance, 03/21/22 4:36:00 EDT, [facility] ([facility]), 172, cm, 02/05/22 10:10:00 EDT, Height, 79, kg, 09/19/21 11:17:00 EST, Dry Weight Start Date: 03/21/22 Status: Ordered MetFORMIN (Eqv-Glucophage XR) 500 mg oral tablet, extended release 2 tablet, By Mouth, 2 times a day, # 360 tablet, 3 Refills, [facility], 172, cm, 02/05/2210:10:00 EDT, Height, 79, kg, 09/19/21 11:17:00 EST, Dry Weight Start Date: 03/06/22 Status: Ordered Trulicity Pen 1.5 mg/0.5 mL subcutaneous solution = 1.5 mg, Subcutaneous Infusion, Every week, # 12 each, 1 Refills, Maintenance, 01/07/22 15:37:00 EDT, [facility] #[id number], Partial fill upon patient request if the prescription is for a schedule II opioid drug., 172, cm, 12/28/21 8:08:00 EDT,... Start Date: 01/07/22 Status: Ordered valsartan 160 mg oral tablet 160 mg, 1, tablet, By Mouth, Daily, # 90 tablet, Refills 0, Tot. Refills 0, Maintenance, 02/05/22 10:32:00 EDT, Do Not Route, Partial fill upon patient request if the prescription is for a schedule II opioid drug. Start Date: 02/05/22 Status: Ordered vestibular physical therapy vestibular physical therapy, See Instructions, # 1 each, Refills 0, Tot. Refills 0, Maintenance, dx: concussion, 09/19/21 11:30:00 EST, Supply Start Date: 09/19/21 Status: Ordered Walker See Instructions, # 1 each, Maintenance, Please use your walker until you are more steady on your feet and have less dizziness., 09/26/21 17:25:00 EDT, Supply, 172, cm, 09/24/21 14:13:00 EDT, Height,79, kg, 09/19/21 11:17:00 EST, Dry Weight Start Date: 09/26/21 Status: Ordered Wellbutrin = 450 mg, By Mouth, Daily, 0 Refills, Maintenance, 06/03/19 18:11:12 EST Start Date: 06/03/19 Status: Ordered Problem List Condition Effective Dates Status Health Status Inform ant Benign hypertension(Confirmed) Active Borderline personality disorder(Confirmed) Active 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w [facility] CKD(Confirmed) Active 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 Insulin long-term use(Confirmed) Active Erectile dysfunction(Confirmed) Active Rash(Confirmed) Active Insulin long-term use(Confirmed) Active Hypercholesterolemia(Confirmed) Active Ineffective self health management(Confirmed) Active Major depressive disorder, recurrent(Confirmed) Active Right flank pain(Confirmed) Active Uncontrolled type 2 diabetes mellitus(Confirmed) Active Diabetes mellitus type 2, uncontrolled(Confirmed) Active Vital Signs Most recent to oldest [Reference Range]: 1 Height 172 cm (03/21/22 4:13 PM) Weight 81.7 kg (03/21/22 4:13 PM) Oxygen Saturation [94-100 %] 97 % (03/21/22 4:13 PM) Pulse Rate [55-90 bpm] 86 bpm (03/21/22 4:13 PM) Body Mass Index [18.5-24.99] 27.62 *H* (03/21/22 4:13 PM) Blood Pressure [90-138/55-84 mm Hg] 116/ 72mm Hg (03/21/22 4:13 PM) Mode of Delivery (Oxygen) Room air (03/21/22 4:13 PM) Blood pressure sites Arm, left (03/21/22 4:13 PM) Weight Obtained Via Standing scale (03/21/22 4:13 PM) Social History Social History Type Response Smoking Status Never smoker entered on: 06/30/13 Sex Care Team Personnel Name: Manpreet Tabares MD Address: [address] [facility] [place] [address]-
--- OUTSIDE RECORDS SUMMARY | 2023-04-11 06:02 | XMS_ITS | Continuity of Care Document ---
Author Name Unknown Organization [facility] Terry lt Address [address] [place] [address]- Care Team Providers Care Night Cleaner Name Role Phone Raysa JAY, Manpreet Garcia Primary Care Physician Encounter [facility] Date(s): 09/24/21 - 10/01/21 [facility] Adult [address] [place] [address]- Encounter Diagnosis Benign hypertension(Discharge Diagnosis) - 09/24/21 Post concussion syndrome(Discharge Diagnosis) - 09/24/21 Diabetes mellitus type 2, uncontrolled(Discharge Diagnosis) - 09/24/21 Attending Physician: Wali KOEHLER, Anila Lucas Allergies, Adverse Reactions, Alerts Substance Reaction Severity Status codeine leandro Active Immunizations Given and Recorded Vaccine Date [...] Not Give n Patient Refuses 1Result Comment: [facility]-[id number] 2Admin Note: At work 3Admin Note: REFUSED [...] Daily, # 90 tablet, 3 Refills, Maintenance, 04/13/21 14:48:00 EDT, [facility], 172, cm, 12/21/20 8:34:00 EDT, Height, 81, kg, 09/15/20 12:34:00 EST, Dry Weight Start Date: 04/13/21 Status: Ordered meclizine 12.5 mg oral tablet 1 tablet = 12.5 mg, By Mouth, 3 times a day, PRN for dizziness, # 30 tablet, 0 Refills, Maintenance, 09/26/21 17:25:00 EDT, Tablet, [id number], Partial fill upon patient request if the prescription is for a schedule II opioid drug., 172, cm, 0... Start Date: 09/26/21 Status: Ordered meclizine 12.5 mg oral tablet 1 tablet = 12.5 mg, By Mouth, 3 times a day, PRN for dizziness, for 14 days, # 45 tablet, 0 Refills, Acute 10/03/21 11:30:00 EDT, 09/19/21 11:30:00 EST, Tablet, [id number], Partial fill upon patient request if the prescription is for a schedul... Start Date: 09/19/21 Stop Date: 10/03/21 Status: Ordered MetFORMIN (Eqv-Glucophage XR) 500 mg oral tablet, extended release 2 tablet, By Mouth, 2 times a day, # 360 tablet, 3 Refills, Maintenance, 04/13/21 14:48:00 EDT, [facility], 172, cm, 12/21/20 8:34:00 EDT, Height, 81, kg, 09/15/20 12:34:00 EST, Dry Weight Start Date: 04/13/21 Status: Ordered Trulicity Pen 1.5 mg/0.5 mL subcutaneous solution = 1.5 mg, Subcutaneous Infusion, Every week, # 12 each, 3 Refills, Maintenance, 07/27/20 15:47:00 EST, [facility], Partial fill upon patient request if the prescription is for a schedule II opioid drug., 173, cm, 07/25/20 16:14:00 E... Start Date: 07/27/20 Status: Ordered valsartan 80 mg oral tablet 80 mg, 1, tablet, By Mouth, Daily, # 90 tablet, Refills 1, Tot. Refills 1, Maintenance, 03/15/21 7:48:00 EDT, Route to Pharmacy Electronically, [facility], 172, cm, 12/21/20 8:34:00 EDT, Height, 81, kg, 09/15/20 12:34:00 EST, Dry We... Start Date: 03/15/21 Status: Ordered vestibular physical therapy vestibular physical [...] Active 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w [facility] CKD(Confirmed) Active 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 Depression(Confirmed) Active Insulin long-term use(Confirmed) Active Erectile dysfunction(Confirmed) Active Rash(Confirmed) Active Insulin long-term use(Confirmed) Active Hypercholesterolemia(Confirmed) Active Ineffective self health management(Confirmed) Active Right flank pain(Confirmed) Active Uncontrolled type 2 diabetes mellitus(Confirmed) Active Diabetes mellitus type 2, uncontrolled(Confirmed) Active Diagnosis Diagnosis Type Effective Dates Health Status Clinical Service Informant Benign hypertension Discharge Diagnosis 09/24/21 Post concussion syndrome Discharge Diagnosis 09/24/21 Diabetes mellitus type 2, uncontrolled Discharge Diagnosis 09/24/21 Vital Signs Most recent to oldest [Reference Range]: 1 2 3 Height 172 cm (09/24/21 2:13 PM) 172 cm (09/24/21 1:59 PM) 172 cm (09/24/21 1:58 PM) Weight 82 kg (09/24/21 1:31 PM) Oxygen Saturation [94-100 %] 99 % (09/24/21 1:31 PM) Pulse Rate [55-90 bpm] 99 bpm *H* (09/24/21 1:31 PM) Body Mass Index [18.5-24.99] 27.72 *H* (09/24/21 1:31 PM) Blood Pressure [90-138/55-84 mm Hg] 155/82mm Hg *H* (09/24/21 2:13 PM) 155/82mm Hg *H* (09/24/21 1:59 PM) 166/95mm Hg *H* (09/24/21 1:58 PM) Temperature [96.8-100.4 DegF] 98.0 DegF (09/24/21 1:31 PM) Blood pressure sites Arm, left (09/24/21 1:58 PM) Arm, right (09/24/21 1:31 PM) Temperature Route Oral (09/24/21 1:31 PM) Weight Obtained Via Standing scale (09/24/21 1:31 PM) Social History Social History Type Response Smoking Status Never smoker entered on: 06/30/13 Sex
--- OUTSIDE RECORDS SUMMARY | 2023-04-11 06:02 | XMS_ITS | Continuity of Care Document ---
Author Name Unknown Organization [facility] Terry lt Address [address] [place] [address]- Care Team Providers Care Electrophysiology Technician Name Role Phone Raysa JAY, Manpreet Garcia Primary Care Physician [place] [facility] [place]22 [facility] Adult [address] [place] [address]- Allergies, Adverse Reactions, Alerts Substance Reaction Severity Status codegutierrez reeves Active Immunizations Given and Recorded Vaccine Date [...] Not Give n Patient Refuses 1Result Comment: [facility]-[id number] 2Admin Note: At work 3Admin Note: REFUSED 4Admin Note: 2008 OLD PCP 5Result Comment: will follow up with HCP Medications ARIPiprazole 2 mg oral tablet 2 mg, 1, tablet, By Mouth, Daily, # 30 tablet, Refills 0, Maintenance, 09/18/21 21:36:00 EST, Partial fill upon patient request if the prescription is for a schedule II opioid drug. Start Date: 09/18/21 Status: Ordered Augmentin 875 mg-125 mg oral tablet 1 tablet, By Mouth, Every 12 hours, # 20 tablet, 0 Refills, Maintenance, 02/05/22 10:43:00 EDT, [facility] #[id number], Partial fill upon patient request if the prescription is for a schedule IIopioid drug., 172, cm, 02/05/22 10:10:00 EDT, Heigh... Start Date: 02/05/22 Status: Ordered Januvia 50 mg oral tablet 1 tablet, By Mouth, Daily, # 90 tablet, 3 Refills, Maintenance, 04/13/21 14:48:00 EDT, [facility], 172, cm, 12/21/20 8:34:00 EDT, Height, 81, kg, 09/15/20 12:34:00 EST, Dry Weight Start Date: 04/13/21 Status: Ordered MetFORMIN (Eqv-Glucophage XR) 500 mg [...] each, 1 Refills, Maintenance, 01/07/22 15:37:00 EDT, [facility] #[id number], Partial fill upon patient request if the [...] Active 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w [facility] CKD(Confirmed) Active 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 Insulin long-term use(Confirmed) Active Erectile dysfunction(Confirmed) Active Rash(Confirmed) Active Insulin long-term use(Confirmed) Active Hypercholesterolemia(Confirmed) Active Ineffective self health management(Confirmed) Active Major depressive disorder, recurrent(Confirmed) Active Right flank pain(Confirmed) Active Uncontrolled type 2 diabetes mellitus(Confirmed) Active Diabetes mellitus type 2, uncontrolled(Confirmed) Active Social History Social History Type Response Smoking Status Never smoker entered on: 06/30/13 Sex Care Team Personnel Name: Manpreet Tabares MD Address: [address] [place] [address]-
--- OUTSIDE RECORDS SUMMARY | 2023-04-11 06:03 | XMS_ITS | Continuity of Care Document ---
Author Name Unknown Organization [facility] Terry lt Address [address] [place] [address]- Care Team Providers Care Solid Waste Disposal Manager Name Role Phone Raysa JAY, Manpreet Garcia Primary Care Physician [phone] [facility] [place]21 [facility] Adult [address] [place] [address]- Encounter Diagnosis COVID(Discharge Diagnosis) - 07/11/21 Attending Physician: Not on Staff, Attending MD Allergies, Adverse Reactions, Alerts Substance Reaction [...] Not Give n Patient Refuses 1Result Comment: [facility]-[id number] 2Admin Note: At work 3Admin Note: REFUSED 4Admin Note: 2009 OLD PCP 5Result Comment: will follow up with HCP Medications Januvia 50 mg oral tablet 1 tablet, [...] Dry Weight Start Date: 04/13/21 Status: Ordered NuLYTELY with Flavor Packs oral powder for reconstitution 240 mL, By Mouth, Every 10 minutes, # 1 each, 0 Refills, Maintenance, 08/03/19 11:44:00 EST, REC Powder, [facility]/pharmacy #[id number], test date 10/22/19, 240 mL By Mouth Every 10 minutes, 173, cm, 07/21/19 11:41:00 EST, Height, 86.5, kg, 06/04/19 13:20:00 EST,... Start Date: 08/03/19 Status: Ordered Trulicity Pen 1.5 mg/0.5 mL [...] Dry We... Start Date: 03/15/21 Status: Ordered Wellbutrin = 450 mg, By Mouth, Daily, 0 Refills, Maintenance, 06/03/19 18:11:12 EST Start Date: 06/03/19 Status: Ordered Problem List Condition Effective Dates Status Health Status Inform ant Benign hypertension(Confirmed) Active Borderline personality disorder(Confirmed) Active 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w [facility] CKD(Confirmed) Active 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 Depression(Confirmed) Active Insulin long-term use(Confirmed) Active Erectile dysfunction(Confirmed) Active Rash(Confirmed) Active Insulin long-term use(Confirmed) Active Hypercholesterolemia(Confirmed) Active Ineffective self health management(Confirmed) Active Right flank pain(Confirmed) Active Uncontrolled type 2 diabetes mellitus(Confirmed) Active Diabetes mellitus type 2, uncontrolled(Confirmed) Active Diagnosis Diagnosis Type Effective Dates Health Status [facility] Informant COVID Discharge Diagnosis 07/11/21 Vital Signs Most recent to oldest [Reference Range]: 1 Height 172 cm (07/11/21 10:09 AM) Social History Social History Type Response Smoking Status Never smoker entered on: 06/30/13 Sex
--- OUTSIDE RECORDS SUMMARY | 2023-04-11 06:03 | XMS_ITS | Continuity of Care Document ---
Author Name Unknown Organization [facility] ter Address [address] [place] [address]- Care Team Providers Care Glove Parts Cutter Name Role Phone Raysa JAY, Manpreet Garcia Primary Care Physician [phone] [place] [facility] [place] 10[place]26/[address] [address] Attending Physician: Not on Staff, Attending MD Admitting Physician: Not on Staff, Admitting MD Referring Physician: Not on Staff, Referring MD Allergies, Adverse Reactions, Alerts Substance Reaction [...] Give n Patient Refuses 1Result Comment: [facility]-[id number] 2Admin Note: At work 3Admin Note: REFUSED [...] 0 Refills, Maintenance, 09/26/21 17:25:00 EDT, Tablet, [facility]/pharmacy #[id number], Partial fill upon patient request if the prescription is for a schedule II opioid drug., 172, cm, 0... Start Date: 09/26/21 Status: Ordered MetFORMIN (Eqv-Glucophage XR) 500 mg [...] By Mouth, Daily, # 90 tablet, Refills 2, Tot. Refills 2, Maintenance, 10/22/21 15:28:00 EDT, Do Not Route, Partial fill upon patient request if the prescription is for a schedule IIopioid drug. Start Date: 10/22/21 Status: Ordered vestibular physical therapy vestibular physical [...] 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 Active Degenerative joint disease - cervical [...]
--- OUTSIDE RECORDS SUMMARY | 2023-04-11 06:03 | XMS_ITS | Continuity of Care Document ---
Author Name Unknown Organization [facility] Terry lt Address [address] [place] [address]- Care Team Providers Care Expanding Machine Operator Name Role Phone Manpreet Tabares MD Primary Care Physician [phone] [place] [facility] [place] 12[place]04/21 [facility] Adult [address] [place] [address]- Attending Physician: Manpreet Tabares MD Allergies, Adverse Reactions, [...] Not Give n Patient Refuses 1Result Comment: [facility]-[id number] 2Admin Note: At work 3Admin Note: REFUSED [...] By Mouth, 3 times a day, PRN Dizziness, 0 Refills, Maintenance, 11/08/21 14:24:00 EDT, Partial fill upon patient request if the prescription is for a schedule II opioid drug. Start Date: 11/08/21 Status: Ordered meclizine 12.5 mg oral tablet 1 tablet = 12.5 mg, By Mouth, 3 times a day, PRN for dizziness, # 30 tablet, 0 Refills, Maintenance, 09/26/21 17:25:00 EDT, Tablet, [facility]/pharmacy #[id number], Partial fill upon patient request if the prescription is for a schedule II opioid drug., 172, cm, 0... Start Date: 09/26/21 Status: Ordered meloxicam 15 mg oral tablet 1 tablet = 15 mg, By Mouth, Daily, PRN For pain, with food, # 30 tablet, 1 Refills, Maintenance, 11/27/21 14:40:00 EDT, Tablet, [facility] #[id number], Partial fill upon patient request if the prescription is for a schedule II opioid drug., 172,... Start Date: 11/27/21 Status: Ordered MetFORMIN (Eqv-Glucophage XR) 500 mg oral tablet, extended release 2 tablet, By Mouth, 2 times a day, # 360 tablet, 3 Refills, Maintenance, 04/13/21 14:48:00 EDT, [facility], 172, cm, 12/21/20 8:34:00 EDT, Height, 81, kg, 09/15/20 12:34:00 EST, Dry Weight Start Date: 04/13/21 Status: Ordered traZODone 50 mg oral tablet 25 mg, 0.5, tablet, By Mouth, Daily at bedtime, PRN, # 15 tablet, Refills 2, Tot. Refills 2, Maintenance, Sleep, 11/27/21 14:40:00 EDT, Route to Pharmacy Electronically, [facility] #[id number], Partial fill upon patient request if the prescriptio... Start Date: 11/27/21 Status: Ordered Trulicity Pen 1.5 mg/0.5 mL [...] 80 mg, 1, tablet, By Mouth, Daily, please call to schedule physical with Dr. Tabares, # 90 tablet, Refills 0, Tot. Refills 0, Maintenance, 11/09/21 14:29:00 EDT, Route to Pharmacy Electronically, [facility]/pharmacy #[id number], Partial fill upon patient request... 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 Depression(Confirmed) Active Insulin long-term use(Confirmed) Active Erectile dysfunction(Confirmed) Active Rash(Confirmed) Active Insulin long-term use(Confirmed) Active Hypercholesterolemia(Confirmed) Active Ineffective self health management(Confirmed) Active Right flank pain(Confirmed) Active Uncontrolled type 2 diabetes mellitus(Confirmed) Active Diabetes mellitus type 2, uncontrolled(Confirmed) Active Vital Signs Most recent to oldest [Reference Range]: 1 Height 172 cm (11/27/21 1:51 PM) Weight 84.0 kg (11/27/21 1:51 PM) Body Mass Index [18.5-24.99] 28.39 *H* (11/27/21 1:51 PM) Weight Obtained Via Standing scale (11/27/21 1:51 PM) Social History Social History Type Response Smoking Status Never smoker entered on: 06/30/13 Sex
--- OUTSIDE RECORDS SUMMARY | 2023-04-11 06:03 | XMS_ITS | Continuity of Care Document ---
Author Name Unknown Organization [facility] ter Address [address] [place] [address]- Care Team Providers Care Analytics Consultant Name Role Phone Raysa JAY, Manpreet Garcia Primary Care Physician [phone] Encounter [facility] Date(s): 07/30/19 - 11/21/[address] [address]- [facility] Attending Physician: Prateek Catalan MD Admitting Physician: Prateek Catalan MD Allergies, Adverse Reactions, Alerts Substance Reaction Severity Status codeine loopy Active Immunizations Given and Recorded Vaccine Date Status Refusal Reason influenza virus vaccine, inactivated 1 05/10/19 Gi thong influenza virus vaccine, inactivated 04/25/18 Give n influenza virus vaccine, inactivated 2 04/12/14 Gi thong Fluarix (oldterm) 3 05/03/11 Given Tet/diphth/pertussis, acel (oldterm) 4 11/26/10 Gi thong Not Given Vaccine Date Status Refusal Reason pneumococcal 23-valent vaccine 5 06/04/19 Not Give n Patient Refuses 1Result Comment: [facility]-[id number] 2Admin Note: At work 3Admin Note: REFUSED 4Admin Note: 2008 OLD PCP 5Result Comment: will follow up with HCP Medications Januvia 50 mg oral tablet 1 tablet = 50 mg, By Mouth, Daily, # 90 tablet, 1 Refills, Maintenance, 08/06/19 7:26:00 EST, [facility], 173, cm, 07/21/19 11:41:00 EST, Height, 86.5, kg, 06/04/19 13:20:00 EST,Dry Weight Start Date: 08/06/19 Status: Ordered metFORMIN 500 mg oral tablet, extended release 2 tablet = 1,000 mg, By Mouth, 2 times a day, # 360 tablet, 1 Refills, Maintenance, 06/14/19 16:49:44 EST Start Date: 06/14/19 Status: Ordered NuLYTELY with Flavor Packs oral powder for reconstitution 240 mL, By Mouth, Every 10 minutes, # 1 each, 0 Refills, Maintenance, 08/03/19 11:44:00 EST, REC Powder, [facility]/pharmacy #[id number], test date 10/22/19, 240 mL By Mouth Every 10 minutes, 173, cm, 07/21/19 11:41:00 EST, Height, 86.5, kg, 06/04/19 13:20:00 EST,... Start Date: 08/03/19 Status: Ordered Rexulti 1 mg oral tablet 1 tablet = 1 mg, By Mouth, Daily, # 30 tablet, 0 Refills, Maintenance, 07/06/19 11:23:00 EST, Tablet Start Date: 07/06/19 Status: Ordered rosuvastatin 5 mg oral tablet 1 tablet = 5 mg, By Mouth, Daily, # 90 tablet, 1 Refills, Maintenance, 08/06/19 7:25:00 EST, Tablet, [facility], 173, cm, 07/21/19 11:41:00 EST, Height, 86.5, kg, 06/04/19 13:20:00 EST, Dry Weight Start Date: 08/06/19 Status: Ordered valsartan 80 mg oral tablet 80 mg, 1, tablet, By Mouth, Daily, # 90 tablet, Refills 3, Tot. Refills 3, Maintenance, 06/23/19 13:28:26 EST, Route to Pharmacy Electronically, [id number], [facility], 173, cm, 06/23/19 12:58:42 EST, Hei... 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
--- OUTSIDE RECORDS SUMMARY | 2023-04-11 06:03 | XMS_ITS | Continuity of Care Document ---
Author Name Unknown Organization [facility] Terry lt Address [address] [place] [address]- Care Team Providers Care Plastics Fabricator Or Welder Name Role Phone Manpreet Tabares MD Primary Care Physician [phone] [facility] [facility] [place] 12/03/19 - 12/10/19 [facility] Adult [address] [place] [address]- [facility] Attending Physician: Manpreet Tabares MD Allergies, Adverse [...] Give n Patient Refuses 1Result Comment: [facility]-[id number] 2Admin Note: At work 3Admin Note: REFUSED 4Admin Note: 2008 OLD PCP 5Result Comment: will follow up with HCP Medications Abilify 10 mg oral tablet 10 mg, 1, tablet, By Mouth, Daily, # 30 tablet, Refills 0, Maintenance, 11/30/19 10:25:00 EDT Start Date: 11/30/19 Status: Ordered Januvia 50 mg oral tablet 1 tablet [...] Refills, Maintenance, 08/03/19 11:44:00 EST, REC Powder, [facility]/pharmacy #[id number], test date 10/22/19, 240 mL By Mouth Every 10 minutes, 173, cm, 07/21/19 11:41:00 EST, Height, 86.5, kg, 06/04/19 13:20:00 EST,... Start Date: 08/03/19 Status: Ordered rosuvastatin 5 mg oral tablet [...] 06/23/19 13:28:26 EST, Route to Pharmacy Electronically, [id number], [facility], 173, cm, 06/23/19 [...] recent to oldest [Reference Range]: 1 Height 173 cm (12/03/19 9:59 AM) Weight 89.9 kg (12/03/19 9:59 AM) Pulse Rate [55-90 bpm] 101 bpm *H* (12/03/19 9:59 AM) Body Mass Index [18.5-24.99] 30.04 *>HHI* (12/03/19 9:59 AM) Blood Pressure [90-138/55-84 mm Hg] 134/ 78mm Hg (12/03/19 9:59 AM) Respiratory Rate [16-30 br/min] 16 br/mi n (12/03/19 9:59 AM) Temperature [96.8-100.4 DegF] 98.0 DegF (12/03/19 9:59 AM) Blood pressure sites Arm, right (12/03/19 9:59 AM) Temperature Route Oral (12/03/19 9:59 AM) Weight Obtained Via Standing scale (12/03/19 9:59 AM) Social History Social History Type Response Smoking Status Never smoker entered on: 12/05/15 Sex
--- OUTSIDE RECORDS SUMMARY | 2023-04-11 06:03 | XMS_ITS | Continuity of Care Document ---
Author Name Unknown Organization [facility] ter Address [address] [place] [address]- Care Team Providers Care Long Distance Operator Name Role Phone Raysa JAY, Manpreet Garcia Primary Care Physician [place] [facility] [id number] Date(s): 04/04/22 - 04/05/[address] [address]- Discharge Disposition: A-D/C Home Attending Physician: Mian JAY, Ximena Carmichael Admitting Physician: Kiet Leger MD Referring Physician: Not on Staff, Referring MD Allergies, Adverse Reactions, Alerts Substance Reaction Severity Status codeine loopmelody Active Immunizations Given and Recorded Vaccine Date [...] Not Give n Patient Refuses 1Result Comment: [facility]-[id number] 2Admin Note: At work 3Admin Note: REFUSED 4Admin Note: 2009 OLD PCP 5Result Comment: will follow up with HCP Medications ARIPiprazole 2 mg oral tablet 2 mg, 1, tablet, By Mouth, Daily, # 30 tablet, Refills 0, Maintenance, 09/18/21 21:36:00 EST, Partial fill upon patient request if the prescription is for a schedule II opioid drug. Start Date: 09/18/21 Status: Ordered buPROPion 150 mg/24 hours (XL) oral tablet, extended release 1 tablet = 150 mg, By Mouth, Every 24 hours, # 30 tablet, 0 Refills, Maintenance, 04/04/22 16:39:00EDT, ER Tablet, Partial fill upon patient request if the prescription is for a schedule II opioid drug. Start Date: 04/04/22 Status: Ordered buPROPion 300 mg/24 hours (XL) oral tablet, extended release 1 tablet = 300 mg, By Mouth, Daily, # 30 tablet, 0 Refills, Maintenance, 04/04/22 16:38:00 EDT, ER Tablet, Partial fill upon patient request if the prescription is for a schedule II opioid drug. Start Date: 04/04/22 Status: Ordered cephalexin monohydrate 500 mg oral capsule 1 capsule = 500 mg, By Mouth, 4 times a day, # 40 capsule, 0 Refills, Maintenance, 04/04/22 16:38:00 EDT, Capsule, Partial fill upon patient request if the prescription is for a schedule II opioid drug. Start Date: 04/04/22 Stop Date: 04/14/22 Status: Ordered doxycycline monohydrate 100 mg oral tablet 1 tablet = 100 mg, By Mouth, 2 times a day, # 20 tablet, 0 Refills, Maintenance, 04/04/22 16:37:00 EDT, Tablet, Partial fill upon patient request if the prescription is for a schedule II opioid drug. Start Date: 04/04/22 Stop Date: 04/14/22 Status: Ordered gentamicin 0.1% topical ointment 0 Refills, Maintenance, 04/04/22 16:38:00 EDT, Partial fill upon patient request if the prescription is for a schedule II opioid drug. Start Date: 04/04/22 Status: Ordered Januvia 50 mg oral tablet 1 tablet, By Mouth, Daily, # 90 tablet, 3 Refills, Maintenance, 03/21/22 4:36:00 EDT, [facility]), 172, cm, 02/05/22 10:10:00 EDT, Height, 79, kg, 09/19/21 11:17:00 EST, Dry Weight Start Date: 03/21/22 Status: Ordered Lipitor 80 mg oral tablet 1 tablet = 80 mg, By Mouth, Daily, # 30 tablet, 0 Refills, Maintenance, 04/04/22 17:13:00 EDT, Tablet, Partial fill upon patient request if the prescription is for a schedule II opioid drug. Start Date: 04/04/22 Status: Ordered MetFORMIN (Eqv-Glucophage XR) 500 mg oral tablet, extended release 2 tablet, By Mouth, 2 times a day, # 360 tablet, 3 Refills, [facility], 172, cm, 02/05/2210:10:00 EDT, Height, 79, kg, 09/19/21 11:17:00 EST, Dry Weight Start Date: 03/06/22 Status: Ordered metoprolol 25 mg oral tablet 25 mg, Tablet, By Mouth, Hold for: SBP<100 or HR<60, 04/05/22 9:00:00 EDT Start Date: 04/05/22 Stop Date: 04/05/22 Status: Completed Metoprolol Tartrate 25 mg oral tablet 1 tablet = 25 mg, By Mouth, 2 times a day, # 60 tablet, 0 Refills, Maintenance, 04/05/22 15:56:00 EDT, Tablet, [facility][id number], Partial fill upon patient request if the prescription is for a schedule II opioid drug. refill from PCP, 172, c... Start Date: 04/05/22 Stop Date: 05/05/22 Status: Ordered MorPHINE Inj 4 mg, Injection, IV Push Slowly, Every 5 minutes for 3 doses/times, PRN for Pain , Moderate, and SBP greater than 100, Routine, 04/04/22 10:44:00 EDT, Stop date Limited # of times Start Date: 04/04/22 Stop Date: 04/05/22 Status: Completed topiramate 25 mg oral tablet TAKE 1 TABLET BY MOUTH AT BEDTIME Start Date: 04/04/22 Status: Ordered traMADol 50 mg oral tablet TAKE 1 TABLET BY MOUTH EVERY 8 HOURS NEEDED FOR PAIN. Start Date: 04/04/22 Status: Ordered traZODone 50 mg oral tablet TAKE 3 TABLETS BY MOUTH AT BEDTIME Start Date: 04/04/22 Status: Ordered Trulicity Pen 1.5 mg/0.5 mL subcutaneous solution = 1.5 mg, Subcutaneous Infusion, Every week, # 12 each, 1 Refills, Maintenance, 01/07/22 15:37:00 EDT, [id number], Partial fill upon patient request if the [...] Dry Weight Start Date: 09/26/21 Status: Ordered Problem List Condition Effective Dates Status Health Status Inform ant Benign hypertension(Confirmed) Active Borderline personality disorder(Confirmed) Active 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w [facility] CKD(Confirmed) Active 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 Insulin long-term use(Confirmed) Active Erectile dysfunction(Confirmed) Active Rash(Confirmed) Active Insulin long-term use(Confirmed) Active Hypercholesterolemia(Confirmed) Active Ineffective self health management(Confirmed) Active Major depressive disorder, recurrent(Confirmed) Active Right flank pain(Confirmed) Active Uncontrolled type 2 diabetes mellitus(Confirmed) Active Diabetes mellitus type 2, uncontrolled(Confirmed) Active Results Radiology Reports * Exam Date Time Procedure Performing Provider Status 04/04/22 11:49 AM Chest 2 Views Frontal and Lat Chanell Emerson; Lorie (Verified) Notes: (Chest 2 Views Frontal and Lat) Reason For Exam: CP;Other: RESULT: Chest 2 Views Frontal and Lat Chest 2 Views Frontal and Lat Hx of Present Illness: CP states onset of CP 0800 today, radiating to left arm. Denies hx of similar. Has been working with cardiology, recent stress. Pending OP echo.; Reason: Other:; CP; Clinical Question(s): Pneumonia COMPARISON: 07/18/2021 FINDINGS: 2 cm groundglass nodular density in the right lower lobe IMPRESSION: 2 cm groundglass density in the right lower lobe may be atelectasis or scar but neoplasm is not excluded. Nonemergent chest CT is recommended for additional assessment. A critical result message (Yellow) has been communicated via the Skyfiber system on 04/04/2022 11:53 AM, Message ID [id number]. WSN: [id number] Ordering Physician: Carla Valencia Dictated By: Eleazar Govea MD Dictated Date/Time: 04/04/22 11:53 a Reviewed By: Eleazar Govea MD Signed By: Eleazar Govea MD Signed Date/Time: 04/04/22 11:53 am Transcribed By: RAHUL Transcribed Date/Time: 04/04/22 11:50 am Vital Signs Most recent to oldest [Reference Range]: 1 2 3 Oxygen Saturation [94-100 %] 100 % (04/05/22 3:35 PM) 98 % (04/05/22 12:47 PM) 99 % (04/05/22 7:25 AM) Pulse Rate [55-90 bpm] 74 bpm (04/05/22 3:35 PM) 77 bpm (04/05/22 12:47 PM) 75 bpm (04/05/22 10:24 AM) Blood Pressure [90-138/55-84 mm Hg] 155/88mm Hg *H* (04/05/22 3:35 PM) 163/101mm Hg *H* (04/05/22 12:47 PM) 146/76mm Hg *H* (04/05/22 10:24 AM) Respiratory Rate [16-30 br/min] 18 br/min (04/05/22 3:35 PM) 18 br/min (04/05/22 12:47 PM) 18 br/min (04/05/22 12:39 PM) Temperature [96.8-100.4 DegF] 98.7 DegF (04/05/22 3:35 PM) 98 DegF (04/05/22 7:25 AM) 98 DegF (04/05/22 5:30 AM) Mode of Delivery (Oxygen) Room air (04/05/22 3:35 PM) Room air (04/05/22 12:47 PM) Room air (04/05/22 7:25 AM) Blood pressure sites Arm, left (04/05/22 3:35 PM) Arm, left (04/05/22 12:47 PM) Arm, left (04/05/22 7:25 AM) Temperature Route Oral (04/05/22 3:35 PM) Oral (04/05/22 7:25 AM) Oral (04/05/22 5:30 AM) Social History Social History Type Response Smoking Status Never smoker entered on: 06/30/13 Sex Note * [facility] , CIS S: TRANSCRIBE Eleazar Govea MD: VERIFY Event Display: Result: Authored Date: Chest 2 Views Frontal and Lat Hx of Present Illness: CP states onset of CP 0800 today, radiating to left arm. Denies hx of similar. Has been working with cardiology, recent stress. Pending OP echo.; Reason: Other:; CP; Clinical Question(s): Pneumonia COMPARISON: 07/18/2021 FINDINGS: 2 cm groundglass nodular density in the right lower lobe IMPRESSION: 2 cm groundglass density in the right lower lobe may be atelectasis or scar but neoplasm is not excluded. Nonemergent chest CT is recommended for additional assessment. A critical result message (Yellow) has been communicated via the Skyfiber system on 04/04/2022 11:53 AM, Message ID [id number]. WSN: [id number] Ordering Physician: Carla Valencia Dictated By: Eleazar Govea MD Dictated Date/Time: 04/04/22 11:53 a Reviewed By: Eleazar Govea MD Signed By: Eleazar Govea MD Signed Date/Time: 04/04/22 11:53 am Transcribed By: RAHUL Transcribed Date/Time: 04/04/22 11:50 am Care Team Personnel Name: Manpreet Tabares MD Address: [address] [place] [address]
--- OUTSIDE RECORDS SUMMARY | 2023-04-11 06:03 | XMS_ITS | Continuity of Care Document ---
Author Name Unknown Organization [facility] Address [address] [place] [address]- Care Team Providers Care Wire Brusher Name Role Phone Manpreet Tabares MD Primary Care Physician En[place] [facility] [place](s[place] 06/23/19 - 06/30/19 [facility] Adult [address] [place] [address]- [facility] Attending Physician: Manpreet Tabares MD Allergies, Adverse [...] Not Give n Patient Refuses 1Result Comment: [facility]-[id number] 2Admin Note: At work 3Admin Note: REFUSED 4Admin Note: 2008 OLD PCP 5Result Comment: will follow up with HCP Medications Januvia 50 mg oral tablet 1 tablet = 50 mg, By Mouth, Daily, # 90 tablet, 3 Refills, Maintenance, 07/16/18 8:52:13 EST Start Date: 07/16/18 Status: Ordered metFORMIN 500 mg oral tablet, extended release 2 tablet = 1,000 mg, By Mouth, 2 times a day, # 360 tablet, 1 Refills, Maintenance, 06/14/19 16:49:44 EST Start Date: 06/14/19 Status: Ordered rosuvastatin 5 mg oral tablet 1 tablet = 5 mg, By Mouth, Daily, # 90 tablet, 3 Refills, Maintenance, 05/11/18 10:27:58 EDT, Tablet Start Date: 05/11/18 Status: Ordered valsartan 80 mg oral tablet 80 mg, 1, tablet, By Mouth, Daily, # 90 tablet, Refills 3, Tot. Refills 3, Maintenance, 06/23/19 13:28:26 EST, Route to Pharmacy Electronically, [id number], [facility], 173, cm, 06/23/19 12:58:42 EST, Hei... Start Date: 06/23/19 Status: Ordered Wellbutrin = 450 mg, By Mouth, Daily, 0 Refills, Maintenance, 06/03/19 18:11:12 EST Start Date: 06/03/19 Status: Ordered Problem List Condition Effective Dates Status Health Status Inform ant Benign hypertension(Confirmed) Active Borderline personality disorder(Confirmed) Active 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w [facility] CKD(Confirmed) Active 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 Depression(Confirmed) Active Diabetes mellitus(Confirmed) Active Insulin long-term use(Confirmed) Active Erectile dysfunction(Confirmed) Active Insulin long-term use(Confirmed) Active Hypercholesterolemia(Confirmed) Active Ineffective self health management(Confirmed) Active Uncontrolled type 2 diabetes mellitus(Confirmed) Active Vital Signs Most recent to oldest [Reference Range]: 1 Height 173 cm (06/23/19 12:58 PM) Weight 86.5 kg (06/23/19 12:58 PM) Oxygen Saturation [94-100 %] 98 % (06/23/19 12:58 PM) Pulse Rate [55-90 bpm] 101 bpm *H* (06/23/19 12:58 PM) Body Mass Index [18.5-24.99] 28.9 *H* (06/23/19 12:58 PM) Blood Pressure [90-138/55-84 mm Hg] 110/ 80mm Hg (06/23/19 12:58 PM) Mode of Delivery (Oxygen) Room air (06/23/19 12:58 PM) Blood pressure sites Arm, left (06/23/19 12:58 PM) Weight Obtained Via Standing scale (06/23/19 12:58 PM) Social History Social History Type Response Smoking Status Never smoker entered on: 12/05/15 Sex
--- OUTSIDE RECORDS SUMMARY | 2023-04-11 06:03 | XMS_ITS | Continuity of Care Document ---
Author Name Unknown Organization [facility] lt Address [address] [place] [address]- Care Team Providers Care Screen Door Maker Name Role Phone Raysa JAY, Manpreet Garcia Primary Care Physician En[place] [facility] [place] Date(s): 11/29/22 - 12/29/22 [facility] Adult [address] [place] [address]- Allergies, Adverse Reactions, Alerts Substance Reaction Severity Status codeine loopy Active Immunizations Given and Recorded Vaccine Date Status Refusal Reason [id number] 12y+ bivalent booster vax 06/04/22 Recorded influenza [...] Give n Patient Refuses 1Result Comment: [facility]-[id number] 2Admin Note: At work 3Admin Note: REFUSED 4Admin Note: 2009 OLD PCP 5Result Comment: will follow up with HCP Medications ARIPiprazole 2 mg oral tablet 2 mg, 1, tablet, By Mouth, Daily, # 30 tablet, Refills 0, Tot. Refills 0, Maintenance, 08/07/22 9:16:00 EST, Route to Pharmacy Electronically, [facility] #[id number], Partial fill upon patient request if the [...] Refills, Maintenance, 11/12/22 10:13:00 EDT, Ophth Ointment, [facility]/pharmacy #[id number], Partial fill upon patient request if the [...] tablet, 1 Refills, Maintenance, 09/20/22 15:42:00 EST, [facility] #[id number], 173, cm, 08/30/22 14:53:00 EST, Height, 84, kg, 08/27/22 17:57:00 EST, Dry Weight Start Date: 09/20/22 Status: Ordered Lipitor 80 mg oral tablet 1 tablet = 80 mg, By Mouth, Daily, # 30 tablet, 0 Refills, Maintenance, 12/11/22 17:40:00 EDT, Tablet, [facility]/pharmacy #[id number], Partial fill upon patient request if the [...] Route to Pharmacy Electronically, [facility]), Partial fillupon patient request if the prescription is for a s... Start Date: 11/29/22 Status: Ordered PT eval and treat for [...] tablet, Refills 3, Tot. Refills 3, Maintenance, 12/16/22 13:17:00 EDT, Route to Pharmacy Electronically, [facility]/pharmacy #[id number], Partial fill upon patient requestif the prescription is for a schedule II opioid frances... Start Date: 12/16/22 Status: Ordered Walker with wheels Walker with [...] Team Personnel Name: Kelly Swanson RN Position: [facility] SN RN Member Role: Primary Care Nurse Name: Hoa Booth RN Position: [facility] RN Member Role: Primary Care Nurse Name: Manpreet Tabares MD Position: [facility] Physician - Primary Care Member Role: PCP Address: Address: [address] [place] [id number] Name: Eliane Shelton RN Position: S RN Member Role: Primary Care Nurse Name: Faith Dixon RN Position: [facility] RN Member Role: Primary Care Nurse Care Team Related Persons Name: ADINA PIERRE Address: home [address] [place] [address] Name: IGNACIO KANDACE Address: home [address] [place] [address] Name: ZACK PIERRE Address: home [address] [place] [address]
--- OUTSIDE RECORDS SUMMARY | 2023-04-11 06:03 | XMS_ITS | Continuity of Care Document ---
Author Name Unknown Organization [facility] Address [address] [place] [address]- Care Team Providers Care Craps Dealer Name Role Phone Raysa JAY, Manpreet Garcia Primary Care Physician [phone] Encounter [facility] [place] Date(s): 10/04/19 - 10/14/19 [facility] Adult [address] [place] [address]- [facility] Attending Physician: AdmYuridia wang Admitting Physician: AdmYuridia wang Referring Physician: AdmtrYuridia Allergies, Adverse Reactions, Alerts Substance Reaction Severity [...] Not Give n Patient Refuses 1Result Comment: [facility]-[id number] 2Admin Note: At work 3Admin Note: REFUSED [...] Refills, Maintenance, 08/03/19 11:44:00 EST, REC Powder, [facility]/pharmacy #[id number], test date 10/22/19, 240 [...] 06/23/19 13:28:26 EST, Route to Pharmacy Electronically, [id number], [facility], 173, cm, 06/23/19 [...] Active Uncontrolled type 2 diabetes mellitus(Confirmed) Active Procedures Procedure Date Related Diagnosis Body Site Status head-up tilt table test , 2010 Completed Social History Social History Type Response Smoking Status Never smoker entered on: 12/05/15 Sex
--- OUTSIDE RECORDS SUMMARY | 2023-04-11 06:03 | XMS_ITS | Continuity of Care Document ---
Author Name Unknown Organization [facility] lt Address [address] [place] [address]- Care Team Providers Care High Density Talc Coater Operator Name Role Phone Raysa JAY, Manpreet Garcia Primary Care Physician [phone] [place] [facility] [place]04[place] 11/03/22 [facility] Adult [address] [place] [address]- Allergies, Adverse Reactions, Alerts Substance Reaction Severity Status codeine loopy Active Immunizations Given and Recorded Vaccine Date Status Refusal Reason [id number] 12y+ bivalent booster vax 06/04/22 Recorded influenza [...] Not Give n Patient Refuses 1Result Comment: [facility]-[id number] 2Admin Note: At work 3Admin Note: REFUSED 4Admin Note: 2009 OLD PCP 5Result Comment: will follow up with HCP Medications ARIPiprazole 2 mg oral tablet 2 mg, 1, tablet, By Mouth, Daily, # 30 tablet, Refills 0, Tot. Refills 0, Maintenance, 08/07/22 9:16:00 EST, Route to Pharmacy Electronically, [email or web address] #[id number], Partial fill upon patient request if the [...] tablet, 1 Refills, Maintenance, 09/20/22 15:42:00 EST, [email or web address] #[id number], 173, cm, 08/30/22 14:53:00 EST, Height, 84, kg, 08/27/22 17:57:00 EST, Dry Weight Start Date: 09/20/22 Status: Ordered Lipitor 80 mg oral tablet 1 tablet = 80 mg, By Mouth, Daily, # 30 tablet, 0 Refills, Maintenance, 04/04/22 17:13:00 EDT, Tablet, Partial fill upon patient request if the prescription is for a schedule II opioid drug. Start Date: 04/04/22 Status: Ordered meclizine 25 mg oral tablet 1 tablet = 25 mg, By Mouth, 3 times a day, PRN for dizziness, # 30 tablet, 0 Refills, Maintenance, 09/03/22 16:31:00 EST, Tablet, [email or web address] #[id number], Partial fill upon patient request if theprescription is for a schedule II opioid drug., 173... Start Date: 09/03/22 Status: Ordered MetFORMIN (Eqv-Glucophage XR) 500 mg oral tablet, extended release 2 tablet, By Mouth, 2 times a day, # 360 tablet, 3 Refills, [facility], 172, cm, 02/05/2210:10:00 EDT, Height, 79, kg, 09/19/21 11:17:00 EST, Dry Weight Start Date: 03/06/22 Status: Ordered Norvasc 5 mg oral tablet 5 mg, 1, tablet, By Mouth, Daily, # 30 tablet, Refills 1, Tot. Refills 1, Maintenance, 08/29/22 8:20:00 EST, [facility], Partial fill upon patient request if the prescription is for a scheduleII opioid drug. Start Date: 08/29/22 Status: Ordered PT eval and treat for vestibular rehab PT eval and treat for vestibular rehab, See Instructions, # 1 each, Refills 0, Tot. Refills 0, Maintenance, PT eval and treat for vestibular rehab, 08/29/22 6:26:00 EST, Compound Start Date: 08/29/22 Status: Ordered Trulicity Pen 1.5 mg/0.5 mL subcutaneous solution = 1.5 mg, Subcutaneous Infusion, Every week, # 12 each, 1 Refills, Maintenance, 05/24/22 11:14:00 EST, [facility] #[id number], Partial fill upon patient request if the prescription is for a schedule II opioid drug., 172, cm, 05/20/22 15:52:00 EST... Start Date: 05/24/22 Status: Ordered valsartan 160 mg oral tablet 160 mg, 1, tablet, By Mouth, Daily, # 90 tablet, Refills 1, Tot. Refills 1, Maintenance, 09/20/22 15:42:00 EST, Route to Pharmacy Electronically, [facility] #[id number], Partial fill upon patient request if the prescription is for a schedule II o... Start Date: 09/20/22 Status: Ordered Walker with wheels Walker with [...] Team Personnel Name: Kelly Swanson RN Position: [facility] SN RN Member Role: Primary Care Nurse Name: Hoa Booth RN Position: S RN Member Role: Primary Care Nurse Name: Manpreet Tabares MD Position: [facility] Primary Care Physician Member Role: PCP Address: Address: [address] [place] [id number] Name: Eliane Shelton RN Position: S RN Member Role: Primary Care Nurse Name: Faith Dixon RN Position: [facility] RN Member Role: Primary Care Nurse Care Team Related Persons Name: ADINA PIERRE Address: [address] [place] [address] Name: KANDACE PIERRE Address: [address] [place] [address] Name: ZACK PIERRE Address: [address] [place] [address]
--- OUTSIDE RECORDS SUMMARY | 2023-04-11 06:03 | XMS_ITS | Continuity of Care Document ---
Author Name Unknown Organization [facility] Address [address] [place] [address]- Care Team Providers Care Quality Control Tech Raw Materials Name Role Phone Raysa JAY, Manpreet Garcia Primary Care Physician Encounter [facility] Date(s): 12/19/20 - 01/18/21 [facility] Adult [address] [place] [address]- Allergies, Adverse Reactions, Alerts Substance Reaction Severity Status codeine loopy Active Immunizations Given and Recorded Vaccine Date Status Refusal Reason Influenza Virus Vaccine (oldterm) 04/06/20 Recorde d influenza virus vaccine, inactivated 1 05/10/19 Gi thong influenza virus vaccine, inactivated 04/25/18 Give n influenza virus vaccine, inactivated 2 04/12/14 Gi thong Fluarix (oldterm) 3 05/03/11 Given Tet/diphth/pertussis, acel (oldterm) 4 11/26/10 Gi thong Not Given Vaccine Date Status Refusal Reason pneumococcal 23-valent vaccine 5 06/04/19 Not Give n Patient Refuses 1Result Comment: [facility]-[id number] 2Admin Note: At work 3Admin Note: REFUSED 4Admin Note: 2008 OLD PCP 5Result Comment: will follow up with HCP Medications ibuprofen 800 mg oral tablet 800 mg, 1, tablet, By Mouth, Every 8 hours, # 30 tablet, Refills 1, Tot. Refills 1, Acute 01/20/21 8:56:00 EDT, 12/21/20 8:56:00 EDT, Route to Pharmacy Electronically, [facility]/pharmacy #[id number], Partial fill upon patient request if the prescription is for a... Start Date: 12/21/20 Stop Date: 01/20/21 Status: Ordered Januvia 50 mg oral tablet 1 tablet, By Mouth, Daily, # 90 tablet, 3 Refills, Maintenance, 12/25/20 16:20:00 EDT, [facility], 172, cm, 12/21/20 8:34:00 EDT, Height, 81, kg, 09/15/20 12:34:00 EST, Dry Weight Start Date: 12/25/20 Status: Ordered MetFORMIN (Eqv-Glucophage XR) 500 mg oral tablet, extended release 2 tablet, By Mouth, 2 times a day, # 360 tablet, 3 Refills, Maintenance, 12/25/20 16:20:00 EDT, [facility], 172, cm, 12/21/20 8:34:00 EDT, Height, 81, kg, 09/15/20 12:34:00 EST, Dry Weight Start Date: 12/25/20 Status: Ordered NuLYTELY with Flavor Packs oral powder for reconstitution 240 mL, By Mouth, Every 10 minutes, # 1 each, 0 Refills, Maintenance, 08/03/19 11:44:00 EST, REC Powder, [facility]/pharmacy #[id number], test date 10/22/19, 240 mL By Mouth Every 10 minutes, 173, cm, 07/21/19 11:41:00 EST, Height, 86.5, kg, 06/04/19 13:20:00 EST,... Start Date: 08/03/19 Status: Ordered Trulicity Pen 1.5 mg/0.5 mL subcutaneous solution = 1.5 mg, Subcutaneous Infusion, Every week, # 12 each, 3 Refills, Maintenance, 07/27/20 15:47:00 EST, [facility], Partial fill upon patient request if the prescription is for a schedule II opioid drug., 173, cm, 07/25/20 16:14:00 E... Start Date: 07/27/20 Status: Ordered valsartan 80 mg oral tablet 80 mg, 1, tablet, By Mouth, Daily, # 90 tablet, Refills 1, Tot. Refills 1, Maintenance, 07/25/20 9:30:00 EST, Route to Pharmacy Electronically, [facility], 173, cm, 06/26/20 15:48:00 EST, Height, 86.5, kg, 06/04/19 13:20:00 EST, Dry... Start Date: 07/25/20 Status: Ordered Wellbutrin = 450 mg, By Mouth, Daily, 0 Refills, Maintenance, 06/03/19 18:11:12 EST Start Date: 06/03/19 Status: Ordered Problem List Condition Effective Dates Status Health Status Inform ant Benign hypertension(Confirmed) Active Borderline personality disorder(Confirmed) Active 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w [facility] CKD(Confirmed) Active Degenerative joint disease - [...]
--- OUTSIDE RECORDS SUMMARY | 2023-04-11 06:03 | XMS_ITS | Continuity of Care Document ---
Author Name Unknown Organization [facility] Address [address] [place] [address]- Care Team Providers Care Golf Cart Maker Name Role Phone Manpreet Tabares MD Primary Care Physician [phone] Encounter [facility] Date(s): 11/28/22 - 12/05/22 [facility] Adult [address] [place] [address]- Attending Physician: Manpreet Tabares MD Allergies, Adverse Reactions, Alerts Substance Reaction Severity Status codeine loopy Active Immunizations Given and Recorded Vaccine Date Status Refusal Reason [id number] 12y+ bivalent booster vax 06/04/22 Recorded influenza [...] Not Give n Patient Refuses 1Result Comment: [facility]-[id number] 2Admin Note: At work 3Admin Note: REFUSED 4Admin Note: 2009 OLD PCP 5Result Comment: will follow up with HCP Medications ARIPiprazole 2 mg oral tablet 2 mg, 1, tablet, By Mouth, Daily, # 30 tablet, Refills 0, Tot. Refills 0, Maintenance, 08/07/22 9:16:00 EST, Route to Pharmacy Electronically, [facility] #[id number], Partial fill upon patient request if the [...] Refills, Maintenance, 11/12/22 10:13:00 EDT, Ophth Ointment, [facility]/pharmacy #[id number], Partial fill upon patient request if the [...] tablet, 1 Refills, Maintenance, 09/20/22 15:42:00 EST, [facility] #[id number], 173, cm, 08/30/22 14:53:00 EST, Height, 84, kg, 08/27/22 17:57:00 EST, Dry Weight Start Date: 09/20/22 Status: Ordered Lantus Solostar Pen 100 units/mL subcutaneous solution = 10 units, Subcutaneous Injection, Daily at bedtime, for 30 days, # 10 mL, 0 Refills, Acute 12/24/22 16:05:00 EDT, 11/24/22 16:05:00 EDT, Solution, [facility]/pharmacy #[id number], Partial fill upon patient request if the [...] Route to Pharmacy Electronically, [facility]), Partial fillupon patient request if the prescription is for a s... Start Date: 11/29/22 Status: Ordered Pen [place], 31 G x 5 mm BD Ultra [...] Maintenance, 11/29/22 4:11:00 EDT, [facility] ([facility]), Partial fill upon patient request if the prescription isfor a schedule II opioid drug., 173, cm, 11/28/22 1... Start Date: 11/29/22 Status: Ordered valsartan 160 mg oral tablet 160 mg, 1, tablet, By Mouth, Daily, # 90 tablet, Refills 3, Tot. Refills 3, Maintenance, 11/29/22 4:11:00 EDT, Route to Pharmacy Electronically, [facility] ([facility]), Partial fill upon patient request [...] Diabetes mellitus type 2, uncontrolled Confirmed Active Vital Signs Most recent to oldest [Reference Range]: 1 Height 173 cm (11/28/22 4:13 PM) Weight 86.4 kg (11/28/22 4:13 PM) Oxygen Saturation [94-100 %] 97 % (11/28/22 4:13 PM) Pulse Rate [55-90 bpm] 98 bpm *H* (11/28/22 4:13 PM) Body Mass Index [18.5-24.99 kg/m2] 28.87 kg/m2 *H* (11/28/22 4:13 PM) Blood Pressure [90-138/55-84 mm Hg] 102/ 66mm Hg (11/28/22 4:13 PM) Respiratory Rate [16-30 br/min] 16 br/mi n (11/28/22 4:13 PM) Temperature [96.8-100.4 DegF] 98.0 DegF (11/28/22 4:13 PM) Mode of Delivery (Oxygen) Room air (11/28/22 4:13 PM) Blood pressure sites Arm, left (11/28/22 4:13 PM) Temperature Route Oral (11/28/22 4:13 PM) Weight Obtained Via Standing scale (11/28/22 4:13 PM) Social History Social History Type Response Smoking Status Never smoker entered on: 06/30/13 Sex Patient Care team information Care Team Personnel Name: Kelly Swanson RN Position: [facility] SN RN Member Role: Primary Care Nurse Name: Hoa Booth RN Position: S RN Member Role: Primary Care Nurse Name: Manpreet Tabares MD Position: [facility] Physician - Primary Care Member Role: PCP Address: Address: [address] [place] [id number] Name: Eliane Shelton RN Position: S RN Member Role: Primary Care Nurse Name: Faith Dixon RN Position: S RN Member Role: Primary Care Nurse Care Team Related Persons Name: IGNACIO ADINA Address: home [address] [place] [address] Name: KANDACE PIERRE Address: home [address] [place] [address] Name: IGNACIO ZACK Address: home [address] [place] [address]
--- OUTSIDE RECORDS SUMMARY | 2023-04-11 06:03 | XMS_ITS | Continuity of Care Document ---
Author Name Unknown Organization [facility] Address [address] [place] [address]- Care Team Providers Care Integration Software Engineer Name Role Phone Raysa JAY, Manpreet Garcia Primary Care Physician [phone] Encounter 09/27/21 - 01/09/22 [facility] [address] [place] [address]- Discharge Disposition: [facility] Allergies, Adverse Reactions, Alerts Substance Reaction Severity [...] influenza virus vaccine, inactivated 2 04/12/14 Gi htong Influenza Virus Vaccine (oldterm) 04/06/20 Recorde d Fluarix (oldterm) 3 05/03/11 Given Tet/diphth/pertussis, acel (oldterm) 4 11/26/10 Gi thong Not Given Vaccine Date Status Refusal Reason pneumococcal 23-valent vaccine 5 06/04/19 Not Give n Patient Refuses 1Result Comment: [facility]-[id number] 2Admin Note: At work 3Admin Note: REFUSED [...] 0 Refills, Maintenance, 09/26/21 17:25:00 EDT, Tablet, [facility]/pharmacy #[id number], Partial fill upon patient request if the prescription is for a schedule II opioid drug., 172, cm, 0... Start Date: 09/26/21 Status: Ordered meloxicam 15 mg oral tablet 1 tablet = 15 mg, By Mouth, Daily, PRN For pain, with food, # 30 tablet, 1 Refills, Maintenance, 11/27/21 14:40:00 EDT, [id number], Partial fill upon patient request if the [...] 11/27/21 14:40:00 EDT, Route to Pharmacy Electronically, [facility] #[id number], Partial fill upon patient request if the prescriptio... Start Date: 11/27/21 Status: Ordered Trulicity Pen 1.5 mg/0.5 mL subcutaneous solution = 1.5 mg, Subcutaneous Infusion, Every week, # 12 each, 1 Refills, Maintenance, 01/07/22 15:37:00 EDT, [facility] #[id number], Partial fill upon patient request if the prescription is for a schedule II opioid drug., 172, cm, 12/28/21 8:08:00 EDT,... Start Date: 01/07/22 Status: Ordered valsartan 80 mg oral tablet 80 mg, 1, tablet, By Mouth, Daily, please call to schedule physical with Dr. Tabares, # 90 tablet, Refills 0, Tot. Refills 0, Maintenance, 11/09/21 14:29:00 EDT, Route to Pharmacy Electronically, [facility]/pharmacy #[id number], Partial fill upon patient request... Start Date: [...]
--- OUTSIDE RECORDS SUMMARY | 2023-04-11 06:03 | XMS_ITS | Continuity of Care Document ---
Author Name Unknown Organization [facility] Address [address] [place] [address]- Care Team Providers Care Mechanical Press Operator Name Role Phone Raysa JAY, Manpreet Garcia Primary Care Physician En[place] [facility] [place] Date(s): 07/19/21 - 08/18/21 [facility] Adult [address] [place] [address]- Attending Physician: Admtr, Ar8 Admitting Physician: Admtr, Ar8 Referring Physician: Admtr, Ar8 Allergies, Adverse Reactions, Alerts Substance Reaction Severity [...] n Patient Refuses 1Result Comment: [facility]-[id number] 2Admin Note: At work 3Admin Note: REFUSED [...] Refills, Maintenance, 08/03/19 11:44:00 EST, REC Powder, [facility]/pharmacy #[id number], test date 10/22/19, 240 mL By Mouth Every 10 minutes, 173, cm, 07/21/19 11:41:00 EST, Height, 86.5, kg, 06/04/19 13:20:00 EST,... 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 Depression(Confirmed) Active Insulin long-term use(Confirmed) Active Erectile dysfunction(Confirmed) Active Rash(Confirmed) Active Insulin long-term use(Confirmed) Active Hypercholesterolemia(Confirmed) Active Ineffective self health management(Confirmed) Active Right flank pain(Confirmed) Active Uncontrolled type 2 diabetes mellitus(Confirmed) Active Diabetes mellitus type 2, uncontrolled(Confirmed) Active Procedures Procedure Date Related Diagnosis Body Site Status head-up tilt table test , 2010 Completed Social History Social History Type Response Smoking Status Never smoker entered on: 06/30/13 Sex
--- OUTSIDE RECORDS SUMMARY | 2023-04-11 06:03 | XMS_ITS | Continuity of Care Document ---
Author Name Unknown Organization [facility] Address [address] [place] [address]- Care Team Providers Care Lapper Name Role Phone Raysa JAY, Manpreet Garcia Primary Care Physician Encounter [facility] Date(s): 03/15/20 - 04/14/20 [facility] Adult [address] [place] [address]- [facility] Allergies, Adverse Reactions, Alerts Substance Reaction Severity [...] Not Give n Patient Refuses 1Result Comment: [facility]-[id number] 2Admin Note: At work 3Admin Note: REFUSED 4Admin Note: 2008 OLD PCP 5Result Comment: will follow up with HCP Medications Abilify 10 mg oral tablet 5 mg, 0.5, tablet, By Mouth, Daily, # 30 tablet, Refills 0, Maintenance, 11/30/19 10:25:00 EDT Start Date: 11/30/19 Status: Ordered Januvia 50 mg oral tablet 1 tablet = 50 mg, By Mouth, Daily, # 90 tablet, 0 Refills, Maintenance, 02/10/20 8:36:00 EDT, [facility] #[id number], 173, cm, 01/04/20 15:41:00 EDT, Height, 86.5, kg, 06/04/19 13:20:00 EST, DryWeight Start Date: 02/10/20 Status: Ordered metFORMIN 500 mg oral tablet, extended release 2 tablet = 1,000 mg, By Mouth, 2 times a day, # 360 tablet, 0 Refills, Maintenance, 03/31/20 13:19:00 EDT, [facility], 173, cm, 03/15/20 15:46:00 EDT, Height, 86.5, kg, 06/04/19 13:20:00 EST, Dry Weight Start Date: 03/31/20 Status: Ordered NuLYTELY with Flavor Packs oral powder for reconstitution 240 mL, By Mouth, Every 10 minutes, # 1 each, 0 Refills, Maintenance, 08/03/19 11:44:00 EST, REC Powder, [facility]/pharmacy #[id number], test date 10/22/19, 240 mL By Mouth Every 10 minutes, 173, cm, 07/21/19 11:41:00 EST, Height, 86.5, kg, 06/04/19 13:20:00 EST,... Start Date: 08/03/19 Status: Ordered valsartan 80 mg oral tablet 80 mg, 1, tablet, By Mouth, Daily, # 90 tablet, Refills 3, Tot. Refills 3, Maintenance, 06/23/19 13:28:26 EST, Route to Pharmacy Electronically, [id number], [facility], 173, cm, 06/23/19 12:58:42 EST, Hei... 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
--- OUTSIDE RECORDS SUMMARY | 2023-04-11 06:03 | XMS_ITS | Continuity of Care Document ---
Author Name Unknown Organization [facility] Address [address] [place] [address] [address] [place] [address]- Care Team Providers Care Hop Worker Name Role Phone Raysa JAY, Manpreet Garcia Primary Care Physician Encounter [facility] Date(s): 10/26/20 - 11/25/20 [facility] [address] [place], [place] [address] Attending Physician: AdmYuridia wang Admitting Physician: AdmYuridia wang Referring Physician: Admtr, Yuridia Allergies, Adverse Reactions, Alerts Substance Reaction Severity [...] Not Give n Patient Refuses 1Result Comment: [facility]-[id number] 2Admin Note: At work 3Admin Note: REFUSED [...] Daily, # 90 tablet, 0 Refills, Maintenance, 08/31/20 15:28:00 EST, [facility], 173, cm, 08/30/20 15:14:00 EST, Height, 86.5, kg, 06/04/19 13:20:00 EST, Dry Weight Start Date: 08/31/20 Status: Ordered metFORMIN 500 mg oral tablet, extended release 2 tablet = 1,000 mg, By Mouth, 2 times a day, # 360 tablet, 0 Refills, Maintenance, 07/25/20 9:30:00 EST, [facility], 173, cm, 06/26/20 15:48:00 EST, Height, 86.5, kg, 06/04/19 13:20:00 EST, Dry Weight Start Date: 07/25/20 Status: Ordered NuLYTELY with Flavor Packs oral powder for reconstitution 240 mL, By Mouth, Every 10 minutes, # 1 each, 0 Refills, Maintenance, 08/03/19 11:44:00 EST, REC Powder, [facility]/pharmacy #[id number], test date 10/22/19, 240 mL By Mouth Every 10 minutes, 173, cm, 07/21/19 11:41:00 EST, Height, 86.5, kg, 06/04/19 13:20:00 EST,... Start Date: 08/03/19 Status: Ordered sitaGLIPtin 50 mg oral tablet 1 tablet = 50 mg, By Mouth, Daily, # 7 capsule, 0 Refills, Maintenance, 05/28/20 17:03:00 EST, [facility]/pharmacy #[id number], Partial fill upon patient request, 173, cm, 03/15/20 15:46:00 EDT, Height, 86.5, kg,06/04/19 13:20:00 EST, Dry Weight Start Date: 05/28/20 Status: Ordered Trulicity Pen 1.5 mg/0.5 mL [...] 9:30:00 EST, Route to Pharmacy Electronically, [facility], 173, cm, 06/26/20 15:48:00 EST, Height, 86.5, kg, 06/04/19 13:20:00 EST, Dry... Start Date: 07/25/20 Status: Ordered Wellbutrin = 450 mg, By Mouth, Daily, 0 Refills, Maintenance, 06/03/19 18:11:12 EST Start Date: 06/03/19 Status: Ordered Problem List Condition Effective Dates Status Health Status Inform ant Benign hypertension(Confirmed) Active Borderline personality disorder(Confirmed) Active 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w [facility] CKD(Confirmed) Active Degenerative joint disease - [...]
--- OUTSIDE RECORDS SUMMARY | 2023-04-11 06:03 | XMS_ITS | Continuity of Care Document ---
Author Name Unknown Organization [facility] Address [address] [place] [address]- Care Team Providers Care Exploration Manager Name Role Phone Manpreet Tabares MD Primary Care Physician [phone] Encounter [facility] Date(s): 03/15/20 - 03/22/20 [facility] [address] [place] [address]- [facility] Attending Physician: Manpreet Tabares MD Allergies, Adverse [...] Give n Patient Refuses 1Result Comment: [facility]-[id number] 2Admin Note: At work 3Admin Note: REFUSED [...] tablet, 0 Refills, Maintenance, 02/10/20 8:36:00 EDT, [facility] #[id number], 173, cm, 01/04/20 15:41:00 EDT, Height, 86.5, kg, 06/04/19 13:20:00 EST, DryWeight Start Date: 02/10/20 Status: Ordered metFORMIN 500 mg oral tablet, extended release 2 tablet = 1,000 mg, By Mouth, 2 times a day, # 360 tablet, 0 Refills, Maintenance, 12/21/19 11:04:00 EDT, [facility], 173, cm, 12/03/19 9:59:00 EDT, Height, 86.5, kg, 06/04/19 13:20:00 EST, Dry Weight Start Date: 12/21/19 Status: Ordered NuLYTELY with Flavor Packs oral powder for reconstitution 240 mL, By Mouth, Every 10 minutes, # 1 each, 0 Refills, Maintenance, 08/03/19 11:44:00 EST, REC Powder, [facility]/pharmacy #[id number], test date 10/22/19, 240 mL By Mouth Every 10 minutes, 173, cm, 07/21/19 11:41:00 EST, Height, 86.5, kg, 06/04/19 13:20:00 EST,... Start Date: 08/03/19 Status: Ordered valsartan 80 mg oral tablet 80 mg, 1, tablet, By Mouth, Daily, # 90 tablet, Refills 3, Tot. Refills 3, Maintenance, 06/23/19 13:28:26 EST, Route to Pharmacy Electronically, [id number], [facility], 173, cm, 06/23/19 12:58:42 EST, Hei... Start Date: 06/23/19 Status: Ordered Wellbutrin = 450 mg, By Mouth, Daily, 0 Refills, Maintenance, 06/03/19 18:11:12 EST Start Date: 06/03/19 Status: Ordered Problem List Condition Effective Dates Status Health Status Inform ant Benign hypertension(Confirmed) Active Borderline personality disorder(Confirmed) Active 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w [facility] CKD(Confirmed) Active 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 Depression(Confirmed) Active Insulin long-term use(Confirmed) Active Erectile dysfunction(Confirmed) Active Insulin long-term use(Confirmed) Active Hypercholesterolemia(Confirmed) Active Ineffective self health management(Confirmed) Active Uncontrolled type 2 diabetes mellitus(Confirmed) Active Diabetes mellitus type 2, uncontrolled(Confirmed) Active Vital Signs Most recent to oldest [Reference Range]: 1 Height 173 cm (03/15/20 3:46 PM) Weight 86.9 kg (03/15/20 3:46 PM) Oxygen Saturation [94-100 %] 98 % (03/15/20 3:46 PM) Pulse Rate [55-90 bpm] 101 bpm *H* (03/15/20 3:46 PM) Body Mass Index [18.5-24.99] 29.04 *H* (03/15/20 3:46 PM) Blood Pressure [90-138/55-84 mm Hg] 130/ 80mm Hg (03/15/20 3:46 PM) Temperature [96.8-100.4 DegF] 97.9 DegF (03/15/20 3:46 PM) Mode of Delivery (Oxygen) Room air (03/15/20 3:46 PM) Blood pressure sites Arm, right (03/15/20 3:46 PM) Temperature Route Oral (03/15/20 3:46 PM) Weight Obtained Via Standing scale (03/15/20 3:46 PM) Social History Social History Type Response Smoking Status Never smoker entered on: 12/05/15 Sex
--- OUTSIDE RECORDS SUMMARY | 2023-04-11 06:03 | XMS_ITS | Continuity of Care Document ---
Author Name Unknown Organization [facility] [place] Address [address] [place] [address]- Care Team Providers Care Icing Mixer Name Role Phone Raysa JAY, Manpreet Garcia Primary Care Physician Encounter [facility] Date(s): 09/18/21 - 10/18/21 [facility] [place] Adult [address] [place] [address]- Allergies, Adverse Reactions, Alerts Substance Reaction Severity Status jv reeves Active Immunizations Given and Recorded Vaccine [...] Give n Patient Refuses 1Result Comment: [facility]-[id number] 2Admin Note: At work 3Admin Note: REFUSED [...] 0 Refills, Maintenance, 09/26/21 17:25:00 EDT, Tablet, [facility]/pharmacy #[id number], Partial fill upon patient request if [...] E... Start Date: 07/27/20 Status: Ordered valsartan 160 mg oral tablet 160 mg, 1, tablet, By Mouth, Daily, # 30 tablet, Refills 1, Tot. Refills 1, Maintenance, 10/08/21 14:11:00 EDT, Route to Pharmacy Electronically, [facility]/pharmacy #[id number], Partial fill upon patient requestif the prescription is for a schedule II opioid frances... Start Date: 10/08/21 Status: Ordered vestibular physical therapy vestibular physical [...] disease of kidney - w [facility] CKD(Confirmed) Active Degenerative joint disease - [...]
--- OUTSIDE RECORDS SUMMARY | 2023-04-11 06:03 | XMS_ITS | Continuity of Care Document ---
Author Name Unknown Organization [facility] Address [address] [place] [address]- Care Team Providers Care Insurance And Financial Services Agent Name Role Phone Manpreet Tabares MD Primary Care Physician [place] [facility] [place](s[place] 01/04/20 - 01/11/20 [facility] [place] Adult [address] [place] [address]- [facility] Encounter Diagnosis Depression(Discharge Diagnosis) - 01/09/20 Benign hypertension(Discharge Diagnosis) - 01/09/20 Attending Physician: Manpreet Tabares MD Allergies, Adverse [...] Not Give n Patient Refuses 1Result Comment: [facility]-[id number] 2Admin Note: At work 3Admin Note: REFUSED [...] Refills, Maintenance, 08/03/19 11:44:00 EST, REC Powder, [facility]/pharmacy #[id number], test date 10/22/19, 240 mL By Mouth [...] 06/23/19 13:28:26 EST, Route to Pharmacy Electronically, [id number], [facility], 173, cm, 06/23/19 [...] Effective Dates Health Status Clinical Service Informant Depression Discharge Diagnosis 01/09/20 Benign hypertension Discharge Diagnosis 01/09/20 Vital Signs Most recent to oldest [Reference Range]: 1 Height 173 cm (01/04/20 3:41 PM) Weight 87.6 kg (01/04/20 3:41 PM) Oxygen Saturation [94-100 %] 98 % (01/04/20 3:41 PM) Pulse Rate [55-90 bpm] 100 bpm *H* (01/04/20 3:41 PM) Body Mass Index [18.5-24.99] 29.27 *H* (01/04/20 3:41 PM) Blood Pressure [90-138/55-84 mm Hg] 122/ 78mm Hg (01/04/20 3:41 PM) Temperature [96.8-100.4 DegF] 97.9 DegF (01/04/20 3:41 PM) Blood pressure sites Arm, right (01/04/20 3:41 PM) Temperature Route Oral (01/04/20 3:41 PM) Weight Obtained Via Standing scale (01/04/20 3:41 PM) Social History Social History Type Response Smoking Status Never smoker entered on: 12/05/15 Sex
--- OUTSIDE RECORDS SUMMARY | 2023-04-11 06:03 | XMS_ITS | Continuity of Care Document ---
Author Name Unknown Organization [facility] lt Address [address] [place] [address]- Care Team Providers Care Helper Coordinator Name Role Phone Raysa JAY, Manpreet Garcia Primary Care Physician [place] [facility] [place] 06/[place]22 [facility] Adult [address] [place] [address]- Allergies, Adverse Reactions, Alerts Substance Reaction Severity [...] n Patient Refuses 1Result Comment: [facility]-[id number] 2Admin Note: At work 3Admin Note: REFUSED [...] opioid drug. Start Date: 04/04/22 Status: Ordered Depakote 250 mg oral enteric coated tablet 1 tablet = 250 mg, By Mouth, 2 times a day, # 60 tablet, 0 Refills, Maintenance, 04/19/22 16:07:00 EDT, Partial fill upon patient request if the prescription is for a schedule II opioid drug. Start Date: 04/19/22 Status: Ordered FreeStyle Letitia 2 Monitor See Instructions, # 1 each, Refills 0, Tot. Refills 0, Maintenance, Use to test blood sugars tid for E11.9, 04/23/22 15:43:00 EDT, Supply, 172, cm, 04/19/22 15:49:00 EDT, Height, 79, kg, 09/19/21 11:17:00 EST, Dry Weight Start Date: 04/23/22 Status: Ordered FreeStyle Letitia 2 Sensors See Instructions, # 2 each, Refills 11, Tot. Refills 11, Maintenance, Use with [place] to test bloodsugars tid for E11.9, 04/23/22 15:44:00 EDT, Supply, 172, cm, 04/19/22 15:49:00 EDT, Height, 79, kg, 09/19/21 11:17:00 EST, Dry Weight Start Date: 04/23/22 Status: Ordered Januvia 50 mg oral tablet 1 tablet, By Mouth, Daily, # 90 tablet, 3 Refills, Maintenance, 03/21/22 4:36:00 EDT, [facility]), 172, cm, 02/05/22 10:10:00 EDT, Height, 79, kg, 09/19/21 11:17:00 EST, Dry Weight Start Date: 03/21/22 Status: Ordered Knee scooter Knee scooter, See Instructions, # 1 each, Refills 0, Tot. Refills 0, Maintenance, Dx: Osteomylitis left foot left foot ulcer Ht: 5'8 Wt: 170 lbs, 04/25/22 14:16:00 EDT, Supply Start Date: 04/25/22 Status: Ordered Lipitor 80 mg oral tablet [...] Dry Weight Start Date: 03/06/22 Status: Ordered Metoprolol Tartrate 25 mg oral tablet 1 tablet = 25 mg, By Mouth, 2 times a day, # 60 tablet, 0 Refills, Maintenance, 04/05/22 15:56:00 EDT, Tablet, [facility] #[id number], Partial fill upon patient request if the prescription is for a schedule II opioid drug. refill from PCP, 172, c... Start Date: 04/05/22 Stop Date: 05/05/22 Status: Ordered Metoprolol Tartrate 25 mg oral tablet 1 tablet = 25 mg, By Mouth, 2 times a day, # 60 tablet, 2 Refills, Maintenance, 05/29/22 13:45:00 EST, Tablet, [facility] #[id number], Partial fill upon patient request if the prescription is for a schedule II opioid drug. refill from PCP, 174, c... Start Date: 05/29/22 Stop Date: 08/27/22 Status: Ordered Trulicity Pen 1.5 mg/0.5 mL subcutaneous solution = 1.5 mg, Subcutaneous Infusion, Every week, # 12 each, 1 Refills, Maintenance, 05/24/22 11:14:00 EST, [facility] #[id number], Partial fill upon patient request if the prescription is for a schedule II opioid drug., 172, cm, 05/20/22 15:52:00 EST... Start Date: 05/24/22 Status: Ordered valsartan 160 mg oral tablet 160 mg, 1, tablet, By Mouth, Daily, # 90 tablet, Refills 0, Tot. Refills 0, Maintenance, 05/29/22 10:46:00 EST, Route to Pharmacy Electronically, [facility] #[id number], Partial fill upon patient request if the prescription is for a schedule II o... Start Date: 05/29/22 Status: Ordered Walker See Instructions, # 1 each, Maintenance, Please use your walker until you are more steady on your feet and have less dizziness., 09/26/21 17:25:00 EDT, Supply, 172, cm, 09/24/21 14:13:00 EDT, Height,79, kg, 09/19/21 11:17:00 EST, Dry Weight Start Date: 09/26/21 Status: Ordered Problem List Condition Confirmation Course [...] Team Personnel Name: Kelly Swanson RN Position: [facility] RN Member Role: Primary Care Nurse Name: Hoa Booth RN Position: [facility] RN Member Role: Primary Care Nurse Name: Manpreet Tabares MD Position: [facility] Primary Care Physician Member Role: PCP Address: Address: [address] [place] [address]- Care Team Related Persons Name: ADINA PIERRE Address: home [address] [place] [address] Name: KANDACE PIERRE Address: home [address] [place] [address] Name: ZACK PIERRE Address: [address] [place] [address]
--- OUTSIDE RECORDS SUMMARY | 2023-04-11 06:03 | XMS_ITS | Continuity of Care Document ---
Author Name Unknown Organization [facility] ter Address [address] [place] [address]- Care Team Providers Care Substation Operator Helper Name Role Phone Raysa JAY, Manpreet aGrcia Primary Care Physician [phone] Encounter [facility] [place](s[place] 09/15/20 - 09/15/[address] [address]- Encounter Diagnosis Hypoglycemia(Final) - 09/15/20 Discharge Disposition: A-D/C Home Attending Physician: Garo Ortiz MD Admitting Physician: Garo Ortiz MD Referring Physician: Not on Staff, Referring [...] Give n Patient Refuses 1Result Comment: [facility]-[id number] 2Admin Note: At work 3Admin Note: REFUSED 4Admin Note: 2008 OLD PCP 5Result Comment: will follow up with HCP Medications Abilify 10 mg oral tablet 5 mg, 0.5, tablet, By Mouth, Daily, # 30 tablet, Refills 0, Maintenance, 11/30/19 10:25:00 EDT Start Date: 11/30/19 Status: Ordered ibuprofen 800 mg oral tablet 800 mg, 1, tablet, By Mouth, Every 8 hours, # 30 tablet, Refills 0, Tot. Refills 0, Acute 09/16/20 11:15:00 EST, 09/06/20 11:12:00 EST, Route to Pharmacy Electronically, [facility]/pharmacy #[id number], Partial fill upon patient request if the prescription is for... Start Date: 09/06/20 Stop Date: 09/16/20 Status: Ordered Januvia 50 mg oral tablet [...] 0 Refills, Maintenance, 07/25/20 9:30:00 EST, [facility], 173, cm, 06/26/20 15:48:00 EST, Height, 86.5, kg, 06/04/19 13:20:00 EST, Dry Weight Start Date: 07/25/20 Status: Ordered NuLYTELY with Flavor Packs oral powder for reconstitution 240 mL, By Mouth, Every 10 minutes, # 1 each, 0 Refills, Maintenance, 08/03/19 11:44:00 EST, REC Powder, [facility]/pharmacy #[id number], test date 10/22/19, 240 mL By Mouth Every 10 minutes, 173, cm, 07/21/19 11:41:00 EST, Height, 86.5, kg, 06/04/19 13:20:00 EST,... Start Date: 08/03/19 Status: Ordered sitaGLIPtin 50 mg oral tablet 1 tablet = 50 mg, By Mouth, Daily, # 7 capsule, 0 Refills, Maintenance, 05/28/20 17:03:00 EST, [facility]/pharmacy #[id number], Partial fill upon patient request, 173, [...] Range]: 1 2 3 Height 172 cm (09/15/20 12:34 PM) 172 cm (09/15/20 10:27 AM) 172 cm (09/15/20 10:16 AM) Weight 81 kg (09/15/20 12:34 PM) 81 kg (09/15/20 10:27 AM) 81 kg (09/15/20 10:16 AM) Oxygen Saturation [94-100 %] 98 % (09/15/20 12:34 PM) 97 % (09/15/20 10:27 AM) 98 % (09/15/20 10:16 AM) Pulse Rate [55-90 bpm] 88 bpm (09/15/20 12:34 PM) 90 bpm (09/15/20 10:27 AM) 94 bpm *H* (09/15/20 10:16 AM) Body Mass Index [18.5-24.99] 27.38 *H* (09/15/20 12:34 PM) 27.38 *H* (09/15/20 10:27 AM) 27.38 *H* (09/15/20 10:16 AM) Blood Pressure [90-138/55-84 mm Hg] 137/85mm Hg (09/15/20 12:34 PM) 126/80mm Hg (09/15/20 10:27 AM) 126/80mm Hg (09/15/20 10:16 AM) Respiratory Rate [16-30 br/min] 16 br/min (09/15/20:34 PM) 16 br/min (09/15/20 10:27 AM) 24 br/min (09/15/20 10:16 AM) Temperature [96.8-100.4 DegF] 97.7 DegF (09/15/20 12:34 PM) 97.9 DegF (09/15/20 8:49 AM) Mode of Delivery (Oxygen) Room air (09/15/20 12:34 PM) Room air (09/15/20 10:16 AM) Room air (09/15/20 8:49 AM) Blood pressure sites Arm, left (09/15/20 10:27 AM) Temperature Route Oral (09/15/20 12:34 PM) Oral (09/15/20 8:49 AM) Dry Weight 81 kg (09/15/20 12:34 PM) 81 kg (09/15/20 10:27 AM) 81 kg (09/15/20 10:16 AM) Social History Social History Type Response Smoking Status Never smoker entered on: 06/30/13 Sex
--- OUTSIDE RECORDS SUMMARY | 2023-04-11 06:03 | XMS_ITS | Continuity of Care Document ---
Author Name Unknown Organization [facility] Address [address] [place] [address]- Care Team Providers Care Extension Course Counselor Name Role Phone Raysa JAY, Manpreet Garcia Primary Care Physician [phone] Encounter [facility] [place] Date(s): 11/12/22 - 12/12/22 [facility] Adult [address] [place] [address]- Allergies, Adverse Reactions, Alerts Substance Reaction Severity Status codeine loopy Active Immunizations Given and Recorded Vaccine Date Status Refusal Reason [id number] 12y+ bivalent booster vax 06/04/22 Recorded influenza [...] Not Give n Patient Refuses 1Result Comment: [facility]-[id number] 2Admin Note: At work 3Admin Note: REFUSED 4Admin Note: 2009 OLD PCP 5Result Comment: will follow up with HCP Medications ARIPiprazole 2 mg oral tablet 2 mg, 1, tablet, By Mouth, Daily, # 30 tablet, Refills 0, Tot. Refills 0, Maintenance, 08/07/22 9:16:00 EST, Route to Pharmacy Electronically, [facility] #[id number], Partial fill upon patient request if the [...] Refills, Maintenance, 11/12/22 10:13:00 EDT, Ophth Ointment, [facility]/pharmacy #[id number], Partial fill upon patient request if the [...] tablet, 1 Refills, Maintenance, 09/20/22 15:42:00 EST, [id number], 173, cm, 08/30/22 14:53:00 EST, Height, 84, kg, 08/27/22 17:57:00 EST, Dry Weight Start Date: 09/20/22 Status: Ordered Lantus Solostar Pen 100 units/mL subcutaneous solution = 10 units, Subcutaneous Injection, Daily at bedtime, for 30 days, # 10 mL, 0 Refills, Acute 12/24/22 16:05:00 EDT, 11/24/22 16:05:00 EDT, Solution, [facility]/pharmacy #[id number], Partial fill upon patient request if the prescription is for a schedule II opioid... Start Date: 11/24/22 Stop Date: 12/24/22 Status: Ordered Lipitor 80 mg oral tablet 1 tablet = 80 mg, By Mouth, Daily, # 30 tablet, 0 Refills, Maintenance, 12/11/22 17:40:00 EDT, Tablet, [facility]/pharmacy #[id number], Partial fill upon patient request [...] Route to Pharmacy Electronically, [facility]), Partial fillupon patient request if the prescription is for a s... Start Date: 11/29/22 Status: Ordered Pen [place], 31 G x 5 mm BD Ultra [...] Care Nurse Name: Leobardo INGRAM, Hoa Position: [facility] RN Member Role: Primary Care Nurse Name: Raysa JAY, Manpreet Garcia Position: [facility] Physician - Primary Care Member Role: PCP Address: Address: [address] [place] [address]- Name: Eliane Shelton RN Position: S RN Member Role: Primary Care Nurse Name: Faith Dixon RN Position: [facility] RN Member Role: Primary Care Nurse Care Team Related Persons Name: ADINA PIERRE Address: [address] [place] [address] Name: KANDACE PIERRE Address: [address] [place] [address] Name: ZACK PIERRE Address: [address] [place] [address]
--- OUTSIDE RECORDS SUMMARY | 2023-04-11 06:03 | XMS_ITS | Continuity of Care Document ---
Author Name Unknown Organization [facility] Address [address] [place] [address]- Care Team Providers Care Feed In Worker Name Role Phone Manpreet Tabares MD Primary Care Physician En[facility] [place] Date(s): 05/20/22 - 05/27/22 [facility] Adult [address] [place] [address]- Attending Physician: Manpreet Tabares MD Allergies, Adverse [...] Not Give n Patient Refuses 1Result Comment: [facility]-[id number] 2Admin Note: At work 3Admin Note: REFUSED [...] 11, Tot. Refills 11, Maintenance, Use with [place] to test bloodsugars tid for E11.9, 04/23/22 15:44:00 EDT, Supply, 172, cm, 04/19/22 15:49:00 EDT, Height, 79, kg, 09/19/21 11:17:00 EST, Dry Weight Start Date: 04/23/22 Status: Ordered gentamicin 0.1% topical ointment 0 [...] 0 Refills, Maintenance, 04/05/22 15:56:00 EDT, Tablet, [facility] #[id number], Partial fill upon patient request if the prescription is for a schedule II opioid drug. refill from PCP, 172, c... Start Date: 04/05/22 Stop Date: 05/05/22 Status: Ordered traZODone 50 mg oral tablet TAKE 3 TABLETS BY MOUTH AT BEDTIME Start Date: 04/04/22 Status: Ordered Trulicity Pen 1.5 mg/0.5 mL subcutaneous solution = 1.5 mg, Subcutaneous Infusion, Every week, # 12 each, 1 Refills, Maintenance, 05/24/22 11:14:00 EST, [facility] #[id number], Partial fill upon patient request if the [...] recent to oldest [Reference Range]: 1 2 Height 172 cm (05/20/22 3:52 PM) 172 cm (05/20/22 3:40 PM) Weight 82.3 kg (05/20/22 3:40 PM) Oxygen Saturation [94-100 %] 97 % (05/20/22 3:40 PM) Pulse Rate [55-90 bpm] 76 bpm (05/20/22 3:40 PM) Body Mass Index [18.5-24.99 kg/m2] 27.82 kg/m2 *H* (05/20/22 3:40 PM) Blood Pressure [90-138/55-84 mm Hg] 162/ 82mm Hg *H* (05/20/22 3:52 PM) 160/84mm Hg *H* (05/20/22 3:40 PM) Blood pressure sites Arm, right (05/20/22 3:52 PM) Arm, left (05/20/22 3:40 PM) Weight Obtained Via Standing scale (05/20/22 3:40 PM) Social History Social History Type Response Smoking Status Never smoker entered on: 06/30/13 Sex Patient Care team information Care Team Personnel Name: Kelly Swanson RN Position: [facility] RN Member Role: Primary Care Nurse Name: Hoa Booth RN Position: [facility] RN Member Role: Primary Care Nurse Name: Raysa JAY, Manpreet Garcia Position: [facility] Primary Care Physician Member Role: PCP Address: Address: [address] [place] [address]- Care Team Related Persons Name: ADINA PIERRE Address: home [address] [place] [address] Name: KANDACE PIERRE Address: [address] [place] [address] Name: ZACK PIERRE Address: [address] [place] [address]
--- OUTSIDE RECORDS SUMMARY | 2023-04-11 06:03 | XMS_ITS | Continuity of Care Document ---
Author Name Unknown Organization [facility] Address [address] [place] [address]- Care Team Providers Care Dinkey Mechanic Name Role Phone Manpreet Tabares MD Primary Care Physician [place] [facility] [place](s): 07/27/20 - 08/03/20 [facility] Adult [address] [place] [address]- Attending Physician: Manpreet Tabares MD Allergies, Adverse Reactions, Alerts Substance Reaction Severity Status codeine loopy Active Immunizations Given and Recorded Vaccine Date Status Refusal Reason Influenza Virus Vaccine (oldterm) 04/06/20 Recorde d influenza virus vaccine, inactivated 1 05/10/19 Gi thong influenza virus vaccine, inactivated 04/25/18 Give n influenza virus vaccine, inactivated 2 04/12/14 Gi thnog Fluarix (oldterm) 3 05/03/11 Given Tet/diphth/pertussis, acel (oldterm) 4 11/26/10 Gi thong Not Given Vaccine Date Status Refusal Reason pneumococcal 23-valent vaccine 5 06/04/19 Not Give n Patient Refuses 1Result Comment: [facility]-[id number] 2Admin Note: At work 3Admin Note: REFUSED [...] Daily, # 90 tablet, 0 Refills, Maintenance, 05/25/20 15:06:00 EST, [facility], 173, cm, 03/15/20 15:46:00 EDT, Height, 86.5, kg, 06/04/19 13:20:00 EST, Dry Weight Start Date: 05/25/20 Status: Ordered metFORMIN 500 mg oral tablet, [...] Refills, Maintenance, 08/03/19 11:44:00 EST, REC Powder, [facility]/pharmacy #[id number], test date 10/22/19, 240 mL By Mouth Every 10 minutes, 173, cm, 07/21/19 11:41:00 EST, Height, 86.5, kg, 06/04/19 13:20:00 EST,... Start Date: 08/03/19 Status: Ordered sitaGLIPtin 50 mg oral tablet 1 tablet = 50 mg, By Mouth, Daily, # 7 capsule, 0 Refills, Maintenance, 05/28/20 17:03:00 EST, [facility]/pharmacy #[id number], Partial fill upon patient request, [...] disorder(Confirmed) Active 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[facility] CKD(Confirmed) Active 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 Depression(Confirmed) Active Insulin long-term use(Confirmed) Active Erectile dysfunction(Confirmed) Active Insulin long-term use(Confirmed) Active Hypercholesterolemia(Confirmed) Active Ineffective self health management(Confirmed) Active Uncontrolled type 2 diabetes mellitus(Confirmed) Active Diabetes mellitus type 2, uncontrolled(Confirmed) Active Social History Social History Type Response Smoking Status Never smoker entered on: 06/30/13 Sex
--- OUTSIDE RECORDS SUMMARY | 2023-04-11 06:03 | XMS_ITS | Continuity of Care Document ---
Author Name Unknown Organization [facility] lt Address [address] [place] [address]- Care Team Providers Care K 9 Police Officer Name Role Phone Raysa JAY, Manpreet Garcia Primary Care Physician Encounter [facility] [place] Date(s): 09/19/20 - 09/26/20 [facility] Adult [address] [place] [address]- Encounter Diagnosis Diabetes mellitus type 2, uncontrolled(Discharge Diagnosis) - 09/19/20 Attending Physician: Wali KOEHLER, Anila Lucas Allergies, [...] Refuses 1Result Comment: [facility]-[id number] 2Admin Note: At work 3Admin Note: REFUSED [...] Refills, Maintenance, 08/03/19 11:44:00 EST, REC Powder, [facility]/pharmacy #[id number], test date 10/22/19, 240 mL By Mouth Every 10 minutes, 173, cm, 07/21/19 11:41:00 EST, Height, 86.5, kg, 06/04/19 13:20:00 EST,... 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 Depression(Confirmed) Active Insulin long-term use(Confirmed) Active Erectile dysfunction(Confirmed) Active Rash(Confirmed) Active Insulin long-term use(Confirmed) Active Hypercholesterolemia(Confirmed) Active Ineffective self health management(Confirmed) Active Right flank pain(Confirmed) Active Uncontrolled type 2 diabetes mellitus(Confirmed) Active Diabetes mellitus type 2, uncontrolled(Confirmed) Active Diagnosis Diagnosis Type Effective Dates Health Status Clinical Service Informant Diabetes mellitus type 2, uncontrolled Discharge Diagnosis 09/19/20 Vital Signs Most recent to oldest [Reference Range]: 1 Height 172 cm (09/19/20 1:50 PM) Social History Social History Type Response Smoking Status Never smoker entered on: 06/30/13 Sex
--- OUTSIDE RECORDS SUMMARY | 2023-04-11 06:03 | XMS_ITS | Continuity of Care Document ---
Author Name Unknown Organization [facility] Address [address] [place] [address]- Care Team Providers Care Acquisitions Assistant Name Role Phone Manpreet Tabares MD Primary Care Physician Encounter [facility] [place] Date(s): 05/27/19 - 07/03/19 [facility] [place] Adult [address] [place] [address]- [facility] Attending Physician: Manpreet Tabares MD Allergies, [...] Comment: [facility]-[id number] 2Admin Note: At work 3Admin Note: REFUSED [...] 06/23/19 13:28:26 EST, Route to Pharmacy Electronically, [id number], [facility], 173, cm, 06/23/19 12:58:42 EST, Hei... Start Date: 06/23/19 Status: Ordered Wellbutrin = 450 mg, By Mouth, Daily, 0 Refills, Maintenance, 06/03/19 18:11:12 EST Start Date: 06/03/19 Status: Ordered Problem List Condition Effective Dates Status Health Status Inform ant Benign hypertension(Confirmed) Active Borderline personality disorder(Confirmed) Active 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w [facility] CKD(Confirmed) Active 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 Depression(Confirmed) Active Diabetes mellitus(Confirmed) Active Insulin long-term use(Confirmed) Active Erectile dysfunction(Confirmed) Active Insulin long-term use(Confirmed) Active Hypercholesterolemia(Confirmed) Active Ineffective self health management(Confirmed) Active Uncontrolled type 2 diabetes mellitus(Confirmed) Active Social History Social History Type Response Smoking Status Never smoker entered on: 12/05/15 Sex
--- OUTSIDE RECORDS SUMMARY | 2023-04-11 06:03 | XMS_ITS | Continuity of Care Document ---
Author Name Unknown Organization [facility] Terry lt Address [address] [place] [address]- Care Team Providers Care Change Agent Name Role Phone Raysa JAY, Manpreet Garcia Primary Care Physician Encounter [facility] Date(s): 10/04/22 - 11/03/22 [facility] Adult [address] [place] [address]- Allergies, Adverse Reactions, Alerts Substance Reaction Severity Status codeine loopy Active Immunizations Given and Recorded Vaccine Date Status Refusal Reason [id number] 12y+ bivalent booster vax 06/04/22 Recorded influenza [...] Not Give n Patient Refuses 1Result Comment: [facility]-[id number] 2Admin Note: At work 3Admin Note: REFUSED 4Admin Note: 2009 OLD PCP 5Result Comment: will follow up with HCP Medications ARIPiprazole 2 mg oral tablet 2 mg, 1, tablet, By Mouth, Daily, # 30 tablet, Refills 0, Tot. Refills 0, Maintenance, 08/07/22 9:16:00 EST, Route to Pharmacy Electronically, [facility] #[id number], Partial fill upon patient request if the [...] tablet, 1 Refills, Maintenance, 09/20/22 15:42:00 EST, [facility] #[id number], 173, cm, 08/30/22 14:53:00 EST, Height, 84, [...] 0 Refills, Maintenance, 09/03/22 16:31:00 EST, Tablet, [facility] #[id number], Partial fill upon patient request if theprescription [...] each, 1 Refills, Maintenance, 05/24/22 11:14:00 EST, [facility] #[id number], Partial fill upon patient request if the prescription is for a schedule II opioid drug., 172, cm, 05/20/22 15:52:00 EST... Start Date: 05/24/22 Status: Ordered valsartan 160 mg oral tablet 160 mg, 1, tablet, By Mouth, Daily, # 90 tablet, Refills 1, Tot. Refills 1, Maintenance, 09/20/22 15:42:00 EST, Route to Pharmacy Electronically, [facility] #[id number], Partial fill upon patient request if the [...] Team Personnel Name: Kelly Swanson RN Position: [facility] SN RN Member Role: Primary Care Nurse Name: Hoa Booth RN Position: S RN Member Role: Primary Care Nurse Name: Manpreet Tabares MD Position: [facility] Primary Care Physician Member Role: PCP Address: Address: [address] [place] [id number] Name: Eliane Shelton RN Position: S RN Member Role: Primary Care Nurse Name: Faith Dixon RN Position: [facility] RN Member Role: Primary Care Nurse Care Team Related Persons Name: ADINA PIERRE Address: home [address] [place] [address] Name: KANDACE PIERRE Address: home [address] [place] [address] Name: ZACK PIERRE Address: home [address] [place] [address]
--- OUTSIDE RECORDS SUMMARY | 2023-04-11 06:03 | XMS_ITS | Continuity of Care Document ---
Author Name Unknown Organization [facility] Terry lt Address [address] [place] [address]- Care Team Providers Care Manager Process Excellence Name Role Phone Raysa JAY, Manpreet Garcia Primary Care Physician [phone] Encounter [facility] Date(s): 11/08/21 - 12/08/21 [facility] Adult [address] [place] [address]- Allergies, Adverse Reactions, Alerts Substance Reaction Severity [...] Refuses 1Result Comment: [facility]-[id number] 2Admin Note: At work 3Admin Note: REFUSED [...] 0 Refills, Maintenance, 09/26/21 17:25:00 EDT, Tablet, [facility]/pharmacy #[id number], Partial fill upon patient request if the prescription is for a schedule II opioid drug., 172, cm, 0... Start Date: 09/26/21 Status: Ordered meloxicam 15 mg oral tablet 1 tablet = 15 mg, By Mouth, Daily, PRN For pain, with food, # 30 tablet, 1 Refills, Maintenance, 11/27/21 14:40:00 EDT, Tablet, [facility] #[id number], Partial fill upon patient request if the [...] 11/27/21 14:40:00 EDT, Route to Pharmacy Electronically, [facility] #[id number], Partial fill upon patient request if the [...] 11/09/21 14:29:00 EDT, Route to Pharmacy Electronically, [facility]/pharmacy #[id number], Partial fill upon patient request... Start Date: [...]
--- OUTSIDE RECORDS SUMMARY | 2023-04-11 06:04 | XMS_ITS | Continuity of Care Document ---
Author Name Unknown Organization [facility] Terry Address [address] [place] [address]- Care Team Providers Care Fsr Name Role Phone Raysa JAY, Manpreet Garcia Primary Care Physician Encounter [facility] Date(s): 01/24/20 - 02/23/20 [facility] Adult [address] [place] [address]- [facility] Allergies, Adverse Reactions, Alerts Substance Reaction [...] Not Give n Patient Refuses 1Result Comment: [facility]-[id number] 2Admin Note: At work 3Admin Note: REFUSED [...] tablet, 0 Refills, Maintenance, 02/10/20 8:36:00 EDT, [facility] #[id number], 173, cm, 01/04/20 15:41:00 EDT, Height, 86.5, [...] Refills, Maintenance, 08/03/19 11:44:00 EST, REC Powder, [facility]/pharmacy #[id number], test date 10/22/19, 240 mL [...] 06/23/19 13:28:26 EST, Route to Pharmacy Electronically, [id number], [facility], 173, cm, 06/23/19 [...]
--- OUTSIDE RECORDS SUMMARY | 2023-04-11 06:04 | XMS_ITS | Continuity of Care Document ---
Author Name Unknown Organization [facility] Terry lt Address [address] [place] [address]- Care Team Providers Care Educational Institution Curator Name Role Phone Raysa JAY, Manpreet Garcia Primary Care Physician [phone] Encounter [facility] Date(s): 11/25/22 - 12/25/22 [facility] Adult [address] [place] [address]- Allergies, Adverse Reactions, Alerts Substance Reaction Severity Status codeine loopy Active Immunizations Given and Recorded Vaccine Date Status Refusal Reason [id number] 12y+ bivalent booster vax 06/04/22 Recorded influenza [...] Not Give n Patient Refuses 1Result Comment: [facility]-[id number] 2Admin Note: At work 3Admin Note: REFUSED 4Admin Note: 2009 OLD PCP 5Result Comment: will follow up with HCP Medications ARIPiprazole 2 mg oral tablet 2 mg, 1, tablet, By Mouth, Daily, # 30 tablet, Refills 0, Tot. Refills 0, Maintenance, 08/07/22 9:16:00 EST, Route to Pharmacy Electronically, [facility] #[id number], Partial fill upon patient request if the [...] Refills, Maintenance, 11/12/22 10:13:00 EDT, Ophth Ointment, [facility]/pharmacy #1281, Partial fill upon patient request if the [...] tablet, 1 Refills, Maintenance, 09/20/22 15:42:00 EST, [facility] #[id number], 173, cm, 08/30/22 14:53:00 EST, Height, 84, kg, 08/27/22 17:57:00 EST, Dry Weight Start Date: 09/20/22 Status: Ordered Lipitor 80 mg oral tablet 1 tablet = 80 mg, By Mouth, Daily, # 30 tablet, 0 Refills, Maintenance, 12/11/22 17:40:00 EDT, Tablet, [facility]/pharmacy #7731, Partial fill upon patient request if the [...] Route to Pharmacy Electronically, [facility]), Partial fillupon patient request if [...] 12/16/22 13:17:00 EDT, Route to Pharmacy Electronically, [facility]/pharmacy #[id number], Partial fill upon patient requestif the prescription [...] Team Personnel Name: Kelly Swanson RN Position: [facility] SN RN Member Role: Primary Care Nurse Name: Hoa Booth RN Position: [facility] RN Member Role: Primary Care Nurse Name: Manpreet Tabares MD Position: [facility] Physician - Primary Care Member Role: PCP Address: Address: [address] [place] [id number] Name: Eliane Shelton RN Position: S RN Member Role: Primary Care Nurse Name: Faith Dixon RN Position: [facility] RN Member Role: Primary Care Nurse Care Team Related Persons Name: ADINA PIERRE Address: [address] [place] [address] Name: IGNACIO KANDACE Address: home [address] [place] [address] Name: ZACK PIERRE Address: [address] [place] [address]
--- OUTSIDE RECORDS SUMMARY | 2023-04-11 06:04 | XMS_ITS | Continuity of Care Document ---
Author Name Unknown Organization [facility] lt Address [address] [place] [address]- Care Team Providers Care Coat Agent Name Role Phone Raysa JAY, Manpreet Garcia Primary Care Physician Encounter [facility] Date(s): 12/10/22 - 01/09/23 [facility] Adult [address] [place] [address]- Allergies, Adverse Reactions, Alerts Substance Reaction Severity Status codeine loopy Active Immunizations Given and Recorded Vaccine Date Status Refusal Reason [id number] 12y+ bivalent booster vax 06/04/22 Recorded influenza [...] Not Give n Patient Refuses 1Result Comment: [facility]-[id number] 2Admin Note: At work 3Admin Note: REFUSED 4Admin Note: 2009 OLD PCP 5Result Comment: will follow up with HCP Medications ARIPiprazole 2 mg oral tablet 2 mg, 1, tablet, By Mouth, Daily, # 30 tablet, Refills 0, Tot. Refills 0, Maintenance, 08/07/22 9:16:00 EST, Route to Pharmacy Electronically, [facility] #[id number], Partial fill upon patient request if the [...] Refills, Maintenance, 11/12/22 10:13:00 EDT, Ophth Ointment, [facility]/pharmacy #7001, Partial fill upon patient request if the [...] tablet, 1 Refills, Maintenance, 09/20/22 15:42:00 EST, [facility] #23199, 173, cm, 08/30/22 14:53:00 EST, Height, 84, kg, 08/27/22 17:57:00 EST, Dry Weight Start Date: 09/20/22 Status: Ordered Lipitor 80 mg oral tablet 1 tablet = 80 mg, By Mouth, Daily, # 30 tablet, 0 Refills, Maintenance, 12/11/22 17:40:00 EDT, Tablet, [facility]/pharmacy #3341, Partial fill upon patient request if the [...] [facility]), Partial fillupon patient request if [...] 12/16/22 13:17:00 EDT, Route to Pharmacy Electronically, [facility]/pharmacy #5021, Partial fill upon patient requestif the prescription [...] Team Personnel Name: Kelly Swanson RN Position: [facility] SN RN Member Role: Primary Care Nurse Name: Hoa Booth RN Position: [facility] RN Member Role: Primary Care Nurse Name: Manpreet Tabares MD Position: [facility] Physician - Primary Care Member Role: PCP Address: Address: [address] [place] [id number] Name: Eliane Shelton RN Position: [facility] RN Member Role: Primary Care Nurse Name: Faith Dixon RN Position: [facility] RN Member Role: Primary Care Nurse Care Team Related Persons Name: ELODIA PIERREE Address: home [address] [place] [address] Name: IGNACIO KANDACE Address: [address] [place] [address] Name: ZACK PIERRE Address: [address] [place] [address]
--- OUTSIDE RECORDS SUMMARY | 2023-04-11 06:04 | XMS_ITS | Continuity of Care Document ---
Author Name Unknown Organization [facility] lt Address [address] [place] [address]- Care Team Providers Care Java Developer With Security Clearance Name Role Phone Raysa JAY, Manpreet Garcia Primary Care Physician [place] [facility] [place] 08/30/22 - 09/29/22 [facility] Adult [address] [place] [address]- Attending Physician: Admfelipe, South8 Admitting Physician: Admtr, South8 Referring Physician: Admtr, Ar8 Allergies, Adverse Reactions, Alerts Substance Reaction Severity Status codeine loopy Active Immunizations Given and Recorded Vaccine Date Status Refusal Reason [id number] 12y+ bivalent booster vax 06/04/22 Recorded influenza [...] Not Give n Patient Refuses 1Result Comment: [facility]-[id number] 2Admin Note: At work 3Admin Note: REFUSED 4Admin Note: 2009 OLD PCP 5Result Comment: will follow up with HCP Medications ARIPiprazole 2 mg oral tablet 2 mg, 1, tablet, By Mouth, Daily, # 30 tablet, Refills 0, Tot. Refills 0, Maintenance, 08/07/22 9:16:00 EST, Route to Pharmacy Electronically, [facility] #[id number], Partial fill upon patient request if the [...] tablet, 1 Refills, Maintenance, 09/20/22 15:42:00 EST, [facility] #45122, 173, cm, 08/30/22 14:53:00 EST, Height, 84, [...] 0 Refills, Maintenance, 09/03/22 16:31:00 EST, Tablet, [facility] #[id number], Partial fill upon patient request if theprescription [...] each, 1 Refills, Maintenance, 05/24/22 11:14:00 EST, [facility] #[id number], Partial fill upon patient request if the prescription is for a schedule II opioid drug., 172, cm, 05/20/22 15:52:00 EST... Start Date: 05/24/22 Status: Ordered valsartan 160 mg oral tablet 160 mg, 1, tablet, By Mouth, Daily, # 90 tablet, Refills 1, Tot. Refills 1, Maintenance, 09/20/22 15:42:00 EST, Route to Pharmacy Electronically, [facility] #[id number], Partial fill upon patient request if the [...] Diabetes mellitus type 2, uncontrolled Confirmed Active Procedures Procedure Date Related Diagnosis Body Site Status head-up tilt table test , 2010 Completed Social History Social History Type Response Smoking Status Never smoker entered on: 06/30/13 Sex Hospital Consult note * Event Display: Inpatient Consult Note, Non-BH Authored Date: * Event Display: Inpatient Consult Note, Non-BH Authored Date: Note * Event Display: Non BH Lab Results Authored Date: * Event Display: Non BH Lab Results Authored Date: * Event Display: Non BH Lab Results Authored Date: * Event Display: Non BH Lab Results Authored Date: * Event Display: IR Special Procedures, Non-BH Authored Date: * Event Display: IR Special Procedures, Non-BH Authored Date: * Event Display: Ultrasound Lower Extremity, Non-BH Authored Date: * Event Display: Cardiology Office Note, Non-BH Authored Date: * Event Display: Radiology Result Scanned Authored Date: * Event Display: Radiology Result Scanned Authored Date: * Linda Carter: PERFORM Event Display: Cardiovascular Results Scanned Authored Date: [id number] * Aubrie Freeman: PERFORM Event Display: Cardiovascular Results Scanned Authored Date: * Linda Carter: PERFORM Event Display: Cardiovascular Results Scanned Authored Date: [id number] * Mariposa Steinberg: PERFORM Event Display: Radiology Results Scanned Authored Date: Cardiology Outpatient Note * Rere Yuen: PERFORM Event Display: Cardiology Note Office Authored Date: [place] Neck * Event Display: Ultrasound Neck Authored Date: Patient Care team information Care Team Personnel Name: Kelly Swanson RN Position: [facility] SN RN Member Role: Primary Care Nurse Name: Hoa Booth RN Position: S RN Member Role: Primary Care Nurse Name: Manpreet Tabares MD Position: [facility] Primary Care Physician Member Role: PCP Address: Address: [address] [place] [id number]- Name: Eliane Shelton RN Position: [facility] RN Member Role: Primary Care Nurse Name: Faith Dixon RN Position: [facility] RN Member Role: Primary Care Nurse Care Team Related Persons Name: ADINA PIERRE Address: home [address] [place] [address] Name: IGNACIO KANDACE Address: home [address] [place] [address] Name: ZACK PIERRE Address: [address] [place] [address]
--- OUTSIDE RECORDS SUMMARY | 2023-04-11 06:04 | XMS_ITS | Continuity of Care Document ---
Author Name Unknown Organization [facility] Address [address] [place] [address]- Care Team Providers Care Stage Driver Name Role Phone Manpreet Tabares MD Primary Care Physician [phone] Encounter [facility] Date(s): 07/06/19 - 07/13/19 [facility] Adult [address] [place] [address]- [facility] Attending Physician: Manpreet Tabares MD Allergies, Adverse [...] Refuses 1Result Comment: [facility]-[id number] 2Admin Note: At work 3Admin Note: REFUSED 4Admin Note: 2008 OLD PCP 5Result Comment: will follow up with HCP Medications amoxicillin 250 mg oral capsule 1 capsule = 250 mg, By Mouth, 3 times a day, for 10 days, # 30 capsule, 0 Refills, Acute 07/22/19 15:25:00 EST, 07/12/19 15:25:00 EST, Capsule, [facility], 173, cm, 07/06/19 11:22:00 EST, Height, 86.5, kg, 06/04/19 13:20:00 EST, Dry Weight Start Date: 07/12/19 Stop Date: 07/22/19 Status: Ordered Januvia 50 mg oral tablet 1 tablet = 50 mg, By Mouth, Daily, # 90 tablet, 3 Refills, Maintenance, 07/16/18 8:52:13 EST Start Date: 07/16/18 Status: Ordered metFORMIN 500 mg oral tablet, extended release 2 tablet = 1,000 mg, By Mouth, 2 times a day, # 360 tablet, 1 Refills, Maintenance, 06/14/19 16:49:44 EST Start Date: 06/14/19 Status: Ordered Rexulti 1 mg oral tablet [...] 06/23/19 13:28:26 EST, Route to Pharmacy Electronically, [id number], [facility], 173, cm, 06/23/19 12:58:42 EST, Hei... Start Date: 06/23/19 Status: Ordered Wellbutrin = 450 mg, By Mouth, Daily, 0 Refills, Maintenance, 06/03/19 18:11:12 EST Start Date: 06/03/19 Status: Ordered Problem List Condition Effective Dates Status Health Status Inform ant Benign hypertension(Confirmed) Active Borderline personality disorder(Confirmed) Active 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[facility] CKD(Confirmed) Active 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 Depression(Confirmed) Active Diabetes mellitus(Confirmed) Active Insulin long-term use(Confirmed) Active Erectile dysfunction(Confirmed) Active Insulin long-term use(Confirmed) Active Hypercholesterolemia(Confirmed) Active Ineffective self health management(Confirmed) Active Uncontrolled type 2 diabetes mellitus(Confirmed) Active Vital Signs Most recent to oldest [Reference Range]: 1 Height 173 cm (07/06/19 11:22 AM) Weight 86.5 kg (07/06/19 11:22 AM) Oxygen Saturation [94-100 %] 95 % (07/06/19 11:22 AM) Pulse Rate [55-90 bpm] 106 bpm *H* (07/06/19 11:22 AM) Body Mass Index [18.5-24.99] 28.9 *H* (07/06/19 11:22 AM) Blood Pressure [90-138/55-84 mm Hg] 130/ 70mm Hg (07/06/19 11:22 AM) Mode of Delivery (Oxygen) Room air (07/06/19 11:22 AM) Blood pressure sites Arm, left (07/06/19 11:22 AM) Weight Obtained Via Standing scale (07/06/19 11:22 AM) Social History Social History Type Response Smoking Status Never smoker entered on: 12/05/15 Sex
--- OUTSIDE RECORDS SUMMARY | 2023-04-11 06:04 | XMS_ITS | Continuity of Care Document ---
Author Name Unknown Organization [facility] Terry lt Address [address] [place] [address]- Care Team Providers Care Ground Water Technician Name Role Phone Raysa JAY, Manpreet Garcia Primary Care Physician Encounter [facility] Date(s): 10/09/21 - 11/08/21 [facility] Adult [address] [place] [address]- Allergies, Adverse Reactions, Alerts Substance Reaction Severity [...] 1Result Comment: [facility]-[id number] 2Admin Note: At work 3Admin Note: REFUSED [...] 0 Refills, Maintenance, 09/26/21 17:25:00 EDT, Tablet, [facility]/pharmacy #[id number], Partial fill upon patient request [...] Active 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[facility] CKD(Confirmed) Active Degenerative joint disease - [...]
--- OUTSIDE RECORDS SUMMARY | 2023-04-11 06:04 | XMS_ITS | Continuity of Care Document ---
Author Name Unknown Organization [facility] Address [address] [place] [address]- Care Team Providers Care Ammonia Box Tender Name Role Phone Raysa JAY, Manpreet Garcia Primary Care Physician [place] [facility] 08/15/22 - 09/14/22 [facility] Adult [address] [place] [address]- Allergies, Adverse Reactions, Alerts Substance Reaction Severity Status codeine loopy Active Immunizations Given and Recorded Vaccine Date Status Refusal Reason [id number] 12y+ bivalent booster vax 06/04/22 Recorded influenza [...] Not Give n Patient Refuses 1Result Comment: [facility]-[id number] 2Admin Note: At work 3Admin Note: REFUSED 4Admin Note: 2009 OLD PCP 5Result Comment: will follow up with HCP Medications ARIPiprazole 2 mg oral tablet 2 mg, 1, tablet, By Mouth, Daily, # 30 tablet, Refills 0, Tot. Refills 0, Maintenance, 08/07/22 9:16:00 EST, Route to Pharmacy Electronically, [facility] #[id number], Partial fill upon patient request if the [...] Maintenance, 03/21/22 4:36:00 EDT, [facility]), 172, cm, 02/05/22 10:10:00 EDT, [...] 0 Refills, Maintenance, 09/03/22 16:31:00 EST, Tablet, [facility] #[id number], Partial fill upon patient request if theprescription is for a schedule II opioid drug., 173... Start Date: 09/03/22 Status: Ordered meclizine 25 mg oral tablet 1 tablet = 25 mg, By Mouth, 3 times a day, PRN as needed for dizziness, # 30 tablet, 0 Refills, Acute 09/25/22 18:00:00 EDT, 09/03/22 16:53:00 EST, [facility] #[id number], Partial fill upon patient request if the prescription is for a schedule II... Start Date: 09/03/22 Stop Date: 09/25/22 Status: Ordered MetFORMIN (Eqv-Glucophage XR) 500 mg [...] each, 1 Refills, Maintenance, 05/24/22 11:14:00 EST, [facility] #[id number], Partial fill upon patient request if the prescription is for a schedule II opioid drug., 172, cm, 05/20/22 15:52:00 EST... Start Date: 05/24/22 Status: Ordered valsartan 160 mg oral tablet 160 mg, 1, tablet, By Mouth, Daily, # 90 tablet, Refills 0, Tot. Refills 0, Maintenance, 05/29/22 10:46:00 EST, Route to Pharmacy Electronically, [facility] #[id number], Partial fill upon patient request if the prescription is for a schedule II o... Start Date: 05/29/22 Status: Ordered Walker with wheels Walker with [...] Team Personnel Name: Kelly Swanson RN Position: [facility] SN RN Member Role: Primary Care Nurse Name: Hoa Booth RN Position: [facility] RN Member Role: Primary Care Nurse Name: Manpreet Tabares MD Position: [facility] Primary Care Physician Member Role: PCP Address: Address: [address] [place] [id number] Name: Eliane Shelton RN Position: [facility] RN Member Role: Primary Care Nurse Name: Faith Dixon RN Position: [facility] RN Member Role: Primary Care Nurse Care Team Related Persons Name: IGNACIO ADINA Address: home [address] [place] [address] Name: KANDACE PIERRE Address: [address] [place] [address] Name: ZACK PIERRE Address: home [address] [place] [address]
--- OUTSIDE RECORDS SUMMARY | 2023-04-11 06:04 | XMS_ITS | Continuity of Care Document ---
Author Name Unknown Organization [facility] Terry lt Address [address] [place] [address]- Care Team Providers Care Pro Shop Attendant Name Role Phone Raysa JAY, Manpreet Garcia Primary Care Physician [phone] Encounter [facility] [place] Date(s): 08/30/22 - 09/29/22 [facility] Adult [address] [place] [address]- Allergies, Adverse Reactions, Alerts Substance Reaction Severity Status codeine loopy Active Immunizations Given and Recorded Vaccine Date Status Refusal Reason [id number] 12y+ bivalent booster vax 06/04/22 Recorded influenza [...] Not Give n Patient Refuses 1Result Comment: [facility]-[id number] 2Admin Note: At work 3Admin Note: REFUSED 4Admin Note: 2009 OLD PCP 5Result Comment: will follow up with HCP Medications ARIPiprazole 2 mg oral tablet 2 mg, 1, tablet, By Mouth, Daily, # 30 tablet, Refills 0, Tot. Refills 0, Maintenance, 08/07/22 9:16:00 EST, Route to Pharmacy Electronically, [facility] #[id number], Partial fill upon patient request if the [...] tablet, 1 Refills, Maintenance, 09/20/22 15:42:00 EST, [facility] #[id number], 173, cm, 08/30/22 14:53:00 EST, Height, 84, [...] 0 Refills, Maintenance, 09/03/22 16:31:00 EST, Tablet, [facility] #[id number], Partial fill upon patient request if theprescription [...] each, 1 Refills, Maintenance, 05/24/22 11:14:00 EST, [facility] #[id number], Partial fill upon patient request if the prescription is for a schedule II opioid drug., 172, cm, 05/20/22 15:52:00 EST... Start Date: 05/24/22 Status: Ordered valsartan 160 mg oral tablet 160 mg, 1, tablet, By Mouth, Daily, # 90 tablet, Refills 1, Tot. Refills 1, Maintenance, 09/20/22 15:42:00 EST, Route to Pharmacy Electronically, [facility] #[id number], Partial fill upon patient request if the [...] Most recent to oldest [Reference Range]: 1 Blood Pressure [90-138/55-84 mm Hg] 124/ 86mm Hg 1 (09/16/22 7:52 AM) Blood pressure sites Arm, right (09/16/22 7:52 AM) 1Result Comment: home BP Social History Social History Type Response Smoking Status Never smoker entered on: 06/30/13 Sex Patient Care team information Care Team Personnel Name: Kelly Swanson RN Position: [facility] SN RN Member Role: Primary Care Nurse Name: Hoa Booth RN Position: S RN Member Role: Primary Care Nurse Name: Manpreet Tabares MD Position: [facility] Primary Care Physician Member Role: PCP Address: Address: [address] [place] [id number] Name: Eliane Shelton RN Position: S RN Member Role: Primary Care Nurse Name: Faith Dixon RN Position: S RN Member Role: Primary Care Nurse Care Team Related Persons Name: ADINA PIERRE Address: home [address] [place] [address] Name: KANDACE PIERRE Address: home [address] [place] [address] Name: ZACK PIERRE Address: home [address] [place] [address]
--- OUTSIDE RECORDS SUMMARY | 2023-04-11 06:04 | XMS_ITS | Continuity of Care Document ---
Author Name Unknown Organization [facility] ter Address [address] [place] [address]- Care Team Providers Care Librarian Specialist Name Role Phone Manpreet Tabares MD Primary Care Physician Encounter [facility] [place] Date(s): 05/28/19 - 06/30/[address] [address]- [facility] Attending Physician: Manpreet Tabares MD Admitting Physician: Manpreet Tabares MD Referring Physician: Manpreet [...] Comment: [facility]-[id number] 2Admin Note: At work 3Admin Note: REFUSED [...] 06/23/19 13:28:26 EST, Route to Pharmacy Electronically, [id number], [facility], 173, cm, 06/23/19 12:58:42 EST, Hei... Start Date: 06/23/19 Status: Ordered Wellbutrin = 450 mg, By Mouth, Daily, 0 Refills, Maintenance, 06/03/19 18:11:12 EST Start Date: 06/03/19 Status: Ordered Problem List Condition Effective Dates Status Health Status Inform ant Benign hypertension(Confirmed) Active Borderline personality disorder(Confirmed) Active 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w [facility] CKD(Confirmed) Active 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 Depression(Confirmed) Active Diabetes mellitus(Confirmed) Active Insulin long-term use(Confirmed) Active Erectile dysfunction(Confirmed) Active Insulin long-term use(Confirmed) Active Hypercholesterolemia(Confirmed) Active Ineffective self health management(Confirmed) Active Uncontrolled type 2 diabetes mellitus(Confirmed) Active Social History Social History Type Response Smoking Status Never smoker entered on: 12/05/15 Sex
--- OUTSIDE RECORDS SUMMARY | 2023-04-11 06:04 | XMS_ITS | Continuity of Care Document ---
Author Name Unknown Organization [facility] Terry lt Address [address] [place] [address]- Care Team Providers Care Klystrom Tube Tester Name Role Phone Manpreet Tabares MD Primary Care Physician En[place] [facility] [place] Date(s): 11/28/22 - 01/11/23 [facility] Adult [address] [place] [address]- Attending Physician: Manpreet Tabares MD Allergies, Adverse Reactions, Alerts Substance Reaction Severity Status codeine loopy Active Immunizations Given and Recorded Vaccine Date Status Refusal Reason [id number] 12y+ bivalent booster vax 06/04/22 Recorded influenza [...] Not Give n Patient Refuses 1Result Comment: [facility]-[id number] 2Admin Note: At work 3Admin Note: REFUSED 4Admin Note: 2009 OLD PCP 5Result Comment: will follow up with HCP Medications ARIPiprazole 2 mg oral tablet 2 mg, 1, tablet, By Mouth, Daily, # 30 tablet, Refills 0, Tot. Refills 0, Maintenance, 08/07/22 9:16:00 EST, Route to Pharmacy Electronically, [facility] #[id number], Partial fill upon patient request if the [...] Maintenance, 11/12/22 10:13:00 EDT, Ophth Ointment, [facility]/pharmacy #[id number], Partial fill upon patient request if the [...] tablet, 1 Refills, Maintenance, 09/20/22 15:42:00 EST, [facility] #[id number], 173, cm, 08/30/22 14:53:00 EST, Height, 84, kg, 08/27/22 17:57:00 EST, Dry Weight Start Date: 09/20/22 Status: Ordered Lipitor 80 mg oral tablet 1 tablet = 80 mg, By Mouth, Daily, # 30 tablet, 0 Refills, Maintenance, 12/11/22 17:40:00 EDT, Tablet, [id number], Partial fill upon patient request if the [...] 12/16/22 13:17:00 EDT, Route to Pharmacy Electronically, [facility]/pharmacy #[id number], Partial fill upon patient requestif the prescription [...] Team Personnel Name: Kelly Swanson RN Position: [facility] SN RN Member Role: Primary Care Nurse Name: Hoa Booth RN Position: S RN Member Role: Primary Care Nurse Name: Manpreet Tabares MD Position: [facility] Physician - Primary Care Member Role: PCP Address: Address: [address] [place] [id number] Name: Eliane Shelton RN Position: S RN Member Role: Primary Care Nurse Name: Faith Dixon RN Position: S RN Member Role: Primary Care Nurse Care Team Related Persons Name: ADINA PIERRE Address: home [address] [place] [address] Name: KANDACE PIERRE Address: home [address] [place] [address] Name: ZACK PIERRE Address: [address] [place] [address]
--- OUTSIDE RECORDS SUMMARY | 2023-04-11 06:04 | XMS_ITS | Continuity of Care Document ---
Author Name Unknown Organization [facility] Terry lt Address [address] [place] [address]- Care Team Providers Care Investigative Agent Name Role Phone Raysa JAY, Manpreet Garcia Primary Care Physician [phone] [place] [facility] [place](s): 07/04/22 - 08/03/22 [facility] Adult [address] [place] [address]- Allergies, Adverse Reactions, Alerts Substance Reaction Severity [...] Not Give n Patient Refuses 1Result Comment: [facility]-[id number] 2Admin Note: At work 3Admin Note: REFUSED [...] 11, Tot. Refills 11, Maintenance, Use with [facility] to test bloodsugars tid for E11.9, 04/23/22 [...] 0 Refills, Maintenance, 04/05/22 15:56:00 EDT, Tablet, [facility] #[id number], Partial fill upon patient request if the prescription is for a schedule II opioid drug. refill from PCP, 172, c... Start Date: 04/05/22 Stop Date: 05/05/22 Status: Ordered Metoprolol Tartrate 25 mg oral tablet 1 tablet = 25 mg, By Mouth, 2 times a day, # 60 tablet, 2 Refills, Maintenance, 05/29/22 13:45:00 EST, Tablet, [facility] #[id number], Partial fill upon patient request if the prescription is for a schedule II opioid drug. refill from PCP, 174, c... Start Date: 05/29/22 Stop Date: 08/27/22 Status: Ordered Trulicity Pen 1.5 mg/0.5 mL subcutaneous solution = 1.5 mg, Subcutaneous Infusion, Every week, # 12 each, 1 Refills, Maintenance, 05/24/22 11:14:00 EST, [facility] #[id number], Partial fill upon patient request if the prescription is for a schedule II opioid drug., 172, cm, 05/20/22 15:52:00 EST... Start Date: 05/24/22 Status: Ordered valsartan 160 mg oral tablet 160 mg, 1, tablet, By Mouth, Daily, # 90 tablet, Refills 0, Tot. Refills 0, Maintenance, 05/29/22 10:46:00 EST, Route to Pharmacy Electronically, [facility] #[id number], Partial fill upon patient request if the [...] Care Nurse Name: Manpreet Tabares MD Position: [facility] Primary Care Physician Member Role: PCP Address: Address: [address] [place] [address]- Care Team Related Persons Name: ADINA PIERRE Address: home [address] [place] [address] Name: KANDACE PIERRE Address: home [address] [place] [address] Name: ZACK PIERRE Address: [address] [place] [address]
--- OUTSIDE RECORDS SUMMARY | 2023-04-11 06:04 | XMS_ITS | Continuity of Care Document ---
Author Name Unknown Organization [facility] Corie osvaldo Address [address] [place] [address] [address] [place] [address]- Care Team Providers Care Brazer Induction Name Role Phone Raysa JAY, Manpreet Garcia Primary Care Physician [place] [facility] [place] - 11/25/[address] [place], [place] [address] Attending Physician: Xochitl Pelaez Allergies, Adverse Reactions, Alerts Substance Reaction Severity [...] Patient Refuses 1Result Comment: [facility]-[id number] 2Admin Note: At work 3Admin Note: REFUSED [...] Refills, Maintenance, 08/03/19 11:44:00 EST, REC Powder, [facility]/pharmacy #[id number], test date 10/22/19, 240 mL By Mouth Every 10 minutes, 173, cm, 07/21/19 11:41:00 EST, Height, 86.5, kg, 06/04/19 13:20:00 EST,... Start Date: 08/03/19 Status: Ordered sitaGLIPtin 50 mg oral tablet 1 tablet = 50 mg, By Mouth, Daily, # 7 capsule, 0 Refills, Maintenance, 05/28/20 17:03:00 EST, [facility]/pharmacy #[id number], Partial fill upon patient [...] disorder(Confirmed) Active 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[facility] CKD(Confirmed) Active Degenerative joint disease [...]
--- OUTSIDE RECORDS SUMMARY | 2023-04-11 06:04 | XMS_ITS | Continuity of Care Document ---
Author Name Unknown Organization [facility] Address Unknown Care Team Providers Care Skiver Operator Name Role Phone Raysa JAY, Manpreet Garcia Primary Care Physician [place] [facility] [place] [facility] [place] 10[place]24/21 - 11/23/21 [facility] Attending Physician: Yuridia Bowman Admitting Physician: Yuridia Bowman Referring Physician: AdmtrYuridia Allergies, Adverse Reactions, Alerts [...] Not Give n Patient Refuses 1Result Comment: [facility]-[id number] 2Admin Note: At work 3Admin Note: REFUSED [...] 0 Refills, Maintenance, 09/26/21 17:25:00 EDT, Tablet, [facility]/pharmacy #[id number], Partial fill upon patient request [...] 11/09/21 14:29:00 EDT, Route to Pharmacy Electronically, [facility]/pharmacy #[id number], Partial fill upon patient request... 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 CKD(Confirmed) Active Degenerative joint disease - [...]
--- OUTSIDE RECORDS SUMMARY | 2023-04-11 06:04 | XMS_ITS | Continuity of Care Document ---
Author Name Unknown Organization [facility] Terry lt Address [address] [place] [address]- Care Team Providers Care Podiatry Teacher Name Role Phone Raysa JAY, Manpreet Garcia Primary Care Physician Encounter [facility] [place] Date(s): 01/07/23 - 02/06/23 [facility] Adult [address] [place] [address]- Allergies, Adverse Reactions, Alerts Substance Reaction Severity Status codeine loopy Active Immunizations Given and Recorded Vaccine Date Status Refusal Reason [id number] 12y+ bivalent booster vax 06/04/22 Recorded influenza [...] Refuses 1Result Comment: [facility]-[id number] 2Admin Note: At work 3Admin Note: REFUSED 4Admin Note: 2009 OLD PCP 5Result Comment: will follow up with HCP Medications ARIPiprazole 2 mg oral tablet 2 mg, 1, tablet, By Mouth, Daily, # 30 tablet, Refills 0, Tot. Refills 0, Maintenance, 08/07/22 9:16:00 EST, Route to Pharmacy Electronically, [facility] #[id number], Partial fill upon patient request if the prescription is for a schedule II opio... Start Date: 08/07/22 Status: Ordered atorvastatin 80 mg oral tablet 1 tablet, By Mouth, Daily, # 30 tablet, 11 Refills, Maintenance, 01/24/23 15:00:00 EDT, [id number], 173, cm, 11/28/22 16:13:00 EDT, Height, 84, kg, 08/27/22 17:57:00 EST, Dry Weight Start Date: 01/24/23 Status: Ordered buPROPion 300 mg/24 hours (XL) [...] Refills, Maintenance, 11/12/22 10:13:00 EDT, Ophth Ointment, [facility]/pharmacy #[id number], Partial fill upon patient request if the [...] tablet, 1 Refills, Maintenance, 09/20/22 15:42:00 EST, [facility] #[id number], 173, cm, 08/30/22 14:53:00 EST, Height, 84, kg, 08/27/22 17:57:00 EST, Dry Weight Start Date: 09/20/22 Status: Ordered MetFORMIN (Eqv-Glucophage XR) 500 mg oral tablet, extended release 2 tablet, By Mouth, 2 times a day, # 360 tablet, 1 Refills, 01/22/23 13:15:00 EDT, [facility]/pharmacy #[id number], 173, cm, 11/28/22 16:13:00 EDT, Height, 84, kg, 08/27/22 17:57:00 EST, Dry Weight Start Date: 01/22/23 Status: Ordered Norvasc 5 mg oral tablet 5 mg, 1, tablet, By Mouth, Daily, # 90 tablet, Refills 3, Tot. Refills 3, Maintenance, 11/29/22 4:11:00 EDT, Route to Pharmacy Electronically, [facility]), Partial fillupon patient request if [...] mL, 3 Refills, Maintenance, 11/29/22 4:11:00 EDT, [facility]), Partial fill upon patient request if the prescription isfor a schedule II opioid drug., 173, cm, 11/28/22 1... Start Date: 11/29/22 Status: Ordered valsartan 160 mg oral tablet 160 mg, 1, tablet, By Mouth, Daily, # 90 tablet, Refills 3, Tot. Refills 3, Maintenance, 12/16/22 13:17:00 EDT, Route to Pharmacy Electronically, [facility]/pharmacy #[id number], Partial fill upon patient requestif the prescription [...] Team Personnel Name: Kelly Swanson RN Position: [facility] RN Member Role: Primary Care Nurse Name: Hoa Booth RN Position: [facility] RN Member Role: Primary Care Nurse Name: Manpreet Tabares MD Position: [facility] Physician - Primary Care Member Role: PCP Address: Address: [address] [place] [address]- Name: Eliane Shelton RN Position: [facility] RN Member Role: Primary Care Nurse Name: Faith Dixon RN Position: [facility] RN Member Role: Primary Care Nurse Name: Aretha Ray Position: [facility] MA Instrument Assembler Member Role: Certified Medication Aide Care Team Related Persons Name: ADINA PIERRE Address: [address] [place] [address] Name: NIAESTHER KANDACE Address: [address] [place] [address] Name: ZACK PIERRE Address: [address] [place] [address]
--- OUTSIDE RECORDS SUMMARY | 2023-04-11 06:04 | XMS_ITS | Continuity of Care Document ---
Author Name Unknown Organization [facility] Terry lt Address [address] [place] [address]- Care Team Providers Care Leaflet Distributor Name Role Phone Raysa JAY, Manpreet Garcia Primary Care Physician [phone] Encounter [facility] [place] Date(s): 01/08/22 - 02/07/22 [facility] Adult [address] [place] [address]- Allergies, Adverse Reactions, Alerts Substance Reaction Severity [...] Give n Patient Refuses 1Result Comment: [facility]-[id number] 2Admin Note: At work 3Admin Note: REFUSED [...] tablet, 0 Refills, Maintenance, 02/05/22 10:43:00 EDT, [facility] #[id number], Partial fill upon patient request if the [...] Dry Weight Start Date: 04/13/21 Status: Ordered metroNIDAZOLE 500 mg oral tablet 1 tablet = 500 mg, By Mouth, Every 8 hours, for 10 days, # 30 tablet, 0 Refills, Acute 02/15/22 11:25:00 EDT, 02/05/22 11:25:00 EDT, Tablet, [facility] #[id number], Partial fill upon patient request if the prescription is for a schedule II opioid... Start Date: 02/05/22 Stop Date: 02/15/22 Status: Ordered Trulicity Pen 1.5 mg/0.5 mL subcutaneous solution = 1.5 mg, Subcutaneous Infusion, Every week, # 12 each, 1 Refills, Maintenance, 01/07/22 15:37:00 EDT, [facility] #[id number], Partial fill upon patient request if the [...] Active 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w [facility] CKD(Confirmed) Active Degenerative joint [...]
--- OUTSIDE RECORDS SUMMARY | 2023-04-11 06:04 | XMS_ITS | Continuity of Care Document ---
Author Name Unknown Organization [facility] Terry lt Address [address] [place] [address]- Care Team Providers Care Continuous Improvement Black Belt Name Role Phone Raysa JAY, Manpreet Garcia Primary Care Physician Encounter [facility] [place] Date(s): 01/15/22 - 02/14/22 [facility] Adult [address] [place] [address]- Allergies, Adverse Reactions, Alerts Substance Reaction Severity [...] Refuses 1Result Comment: [facility]-[id number] 2Admin Note: At work 3Admin Note: REFUSED [...] tablet, 0 Refills, Maintenance, 02/05/22 10:43:00 EDT, [facility] #[id number], Partial fill upon patient request if the [...] 02/15/22 11:25:00 EDT, 02/05/22 11:25:00 EDT, Tablet, [facility] #05921, Partial fill upon patient request if the prescription is for a schedule II opioid... Start Date: 02/05/22 Stop Date: 02/15/22 Status: Ordered Trulicity Pen 1.5 mg/0.5 mL subcutaneous solution = 1.5 mg, Subcutaneous Infusion, Every week, # 12 each, 1 Refills, Maintenance, 01/07/22 15:37:00 EDT, [facility] #[id number], Partial fill upon patient request if the [...] Active 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w [facility] CKD(Confirmed) Active Degenerative joint disease - [...]
--- OUTSIDE RECORDS SUMMARY | 2023-04-11 06:04 | XMS_ITS | Continuity of Care Document ---
Author Name Unknown Organization [facility] Terry lt Address [address] [place] [address]- Care Team Providers Care Casing Grader Name Role Phone Manpreet Tabares MD Primary Care Physician Encounter [facility] [place] [facility] [id number] Date(s): 04/19/22 - 07/19/22 [facility] Adult [address] [place] [address]- Attending Physician: Manpreet Tabares MD Allergies, Adverse [...] Refuses 1Result Comment: [facility]-[id number] 2Admin Note: At work 3Admin Note: REFUSED [...] 11, Tot. Refills 11, Maintenance, Use with [place] to test bloodsugars tid for E11.9, 04/23/22 [...] 0 Refills, Maintenance, 04/05/22 15:56:00 EDT, Tablet, [facility] #[id number], Partial fill upon patient request if the prescription is for a schedule II opioid drug. refill from PCP, 172, c... Start Date: 04/05/22 Stop Date: 05/05/22 Status: Ordered Metoprolol Tartrate 25 mg oral tablet 1 tablet = 25 mg, By Mouth, 2 times a day, # 60 tablet, 2 Refills, Maintenance, 05/29/22 13:45:00 EST, Tablet, [facility] #[id number], Partial fill upon patient request if the prescription is for a schedule II opioid drug. refill from PCP, 174, c... Start Date: 05/29/22 Stop Date: 08/27/22 Status: Ordered Trulicity Pen 1.5 mg/0.5 mL subcutaneous solution = 1.5 mg, Subcutaneous Infusion, Every week, # 12 each, 1 Refills, Maintenance, 05/24/22 11:14:00 EST, [facility] #[id number], Partial fill upon patient request if the prescription is for a schedule II opioid drug., 172, cm, 05/20/22 15:52:00 EST... Start Date: 05/24/22 Status: Ordered valsartan 160 mg oral tablet 160 mg, 1, tablet, By Mouth, Daily, # 90 tablet, Refills 0, Tot. Refills 0, Maintenance, 05/29/22 10:46:00 EST, Route to Pharmacy Electronically, [facility] #[id number], Partial fill upon patient request if the [...] Name: Hoa Booth RN Position: [facility] RN Member Role: Primary Care Nurse Name: Raysa JAY, Manpreet Garcia Position: [facility] Primary Care Physician Member Role: PCP Address: Address: [address] [place] [address]- Care Team Related Persons Name: ADINA PIERRE Address: home [address] [place] [address] Name: KANDACE PIERRE Address: [address] [place] [address] Name: ZACK PIERRE Address: [address] [place] [address]
--- OUTSIDE RECORDS SUMMARY | 2023-04-11 06:04 | XMS_ITS | Continuity of Care Document ---
Author Name Unknown Organization [facility] Terry lt Address [address] [place] [address]- Care Team Providers Care Head Waiter/Waitress Name Role Phone Manpreet Tabares MD Primary Care Physician [phone] Encounter [facility] Date(s): 12/21/20 - 12/28/20 [facility] Adult [address] [place] [address]- Attending Physician: Manpreet Tabares MD Allergies, Adverse [...] Refuses 1Result Comment: [facility]-[id number] 2Admin Note: At work 3Admin Note: REFUSED 4Admin Note: 2008 OLD PCP 5Result Comment: will follow up with HCP Medications ibuprofen 800 mg oral tablet 800 mg, 1, tablet, By Mouth, Every 8 hours, # 30 tablet, Refills 1, Tot. Refills 1, Acute 01/20/21 8:56:00 EDT, 12/21/20 8:56:00 EDT, Route to Pharmacy Electronically, [facility]/pharmacy #[id number], Partial fill upon patient request if the [...] Refills, Maintenance, 08/03/19 11:44:00 EST, REC Powder, [facility]/pharmacy #[id number], test date 10/22/19, 240 mL By Mouth Every 10 minutes, 173, cm, 07/21/19 11:41:00 EST, Height, 86.5, kg, 06/04/19 13:20:00 EST,... Start Date: 08/03/19 Status: Ordered Trulicity Pen 1.5 mg/0.5 mL subcutaneous solution = 1.5 mg, Subcutaneous Infusion, Every week, # 12 each, 3 Refills, Maintenance, 07/27/20 15:47:00 EST, [facility], Partial fill upon patient request [...] 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w [facility] CKD(Confirmed) Active 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 Depression(Confirmed) Active Insulin long-term use(Confirmed) Active Erectile dysfunction(Confirmed) Active Rash(Confirmed) Active Insulin long-term use(Confirmed) Active Hypercholesterolemia(Confirmed) Active Ineffective self health management(Confirmed) Active Right flank pain(Confirmed) Active Uncontrolled type 2 diabetes mellitus(Confirmed) Active Diabetes mellitus type 2, uncontrolled(Confirmed) Active Vital Signs Most recent to oldest [Reference Range]: 1 Height 172 cm (12/21/20 8:34 AM) Weight 88.4 kg (12/21/20 8:34 AM) Oxygen Saturation [94-100 %] 97 % (12/21/20 8:34 AM) Pulse Rate [55-90 bpm] 86 bpm (12/21/20 8:34 AM) Body Mass Index [18.5-24.99] 29.88 *H* (12/21/20 8:34 AM) Blood Pressure [90-138/55-84 mm Hg] 130/ 88mm Hg (12/21/20 8:34 AM) Temperature [96.8-100.4 DegF] 98.4 DegF (12/21/20 8:34 AM) Mode of Delivery (Oxygen) Room air (12/21/20 8:34 AM) Blood pressure sites Arm, right (12/21/20 8:34 AM) Temperature Route Oral (12/21/20 8:34 AM) Weight Obtained Via Standing scale (12/21/20 8:34 AM) Social History Social History Type Response Smoking Status Never smoker entered on: 06/30/13 Sex
--- OUTSIDE RECORDS SUMMARY | 2023-04-11 06:04 | XMS_ITS | Continuity of Care Document ---
Author Name Unknown Organization [facility] Terry lt Address [address] [place] [address]- Care Team Providers Care Supervisor Small Appliance Assembly Name Role Phone Raysa JAY, Manpreet Garcia Primary Care Physician Encounter [facility] Date(s): 08/26/22 - 09/25/22 [facility] Adult [address] [place] [address]- Allergies, Adverse Reactions, Alerts Substance Reaction Severity Status codeine loopy Active Immunizations Given and Recorded Vaccine Date Status Refusal Reason [id number] 12y+ bivalent booster vax 06/04/22 Recorded influenza [...] Give n Patient Refuses 1Result Comment: [facility]-[id number] 2Admin Note: At work 3Admin Note: REFUSED 4Admin Note: 2009 OLD PCP 5Result Comment: will follow up with HCP Medications ARIPiprazole 2 mg oral tablet 2 mg, 1, tablet, By Mouth, Daily, # 30 tablet, Refills 0, Tot. Refills 0, Maintenance, 08/07/22 9:16:00 EST, Route to Pharmacy Electronically, [facility] #[id number], Partial fill upon patient request if the [...] tablet, 1 Refills, Maintenance, 09/20/22 15:42:00 EST, [facility] #[id number], 173, cm, 08/30/22 14:53:00 EST, Height, 84, [...] 0 Refills, Maintenance, 09/03/22 16:31:00 EST, Tablet, [facility] #[id number], Partial fill upon patient request if theprescription [...] each, 1 Refills, Maintenance, 05/24/22 11:14:00 EST, [facility] #[id number], Partial fill upon patient request if the prescription is for a schedule II opioid drug., 172, cm, 05/20/22 15:52:00 EST... Start Date: 05/24/22 Status: Ordered valsartan 160 mg oral tablet 160 mg, 1, tablet, By Mouth, Daily, # 90 tablet, Refills 1, Tot. Refills 1, Maintenance, 09/20/22 15:42:00 EST, Route to Pharmacy Electronically, [facility] #[id number], Partial fill upon patient request if the [...] Care Physician Member Role: PCP Address: Address: [address] [place] [id number] Name: Eliane Shelton RN Position: S RN Member Role: Primary Care Nurse Name: Faith Dixon RN Position: [facility] RN Member Role: Primary Care Nurse Care Team Related Persons Name: ADINA PIERRE Address: home [address] [place] [address] Name: KANDACE PIERRE Address: home [address] [place] [address] Name: ZACK PIERRE Address: home [address] [place] [address]
--- OUTSIDE RECORDS SUMMARY | 2023-04-11 06:04 | XMS_ITS | Continuity of Care Document ---
Author Name Unknown Organization [facility] Terry lt Address [address] [place] [address]- Care Team Providers Care Real Estate Leasing Manager Name Role Phone Raysa JAY, Manpreet Garcia Primary Care Physician En[place] [facility] Date(s): 05/23/22 - 06/22/22 [facility] Adult [address] [place] [address]- Allergies, Adverse Reactions, Alerts Substance Reaction Severity [...] Not Give n Patient Refuses 1Result Comment: [facility]-[id number] 2Admin Note: At work 3Admin Note: REFUSED [...] 11, Tot. Refills 11, Maintenance, Use with [place] to test bloodsugars tid for E11.9, 04/23/22 [...] 0 Refills, Maintenance, 04/05/22 15:56:00 EDT, Tablet, [email or web address] #[id number], Partial fill upon patient request if the prescription is for a schedule II opioid drug. refill from PCP, 172, c... Start Date: 04/05/22 Stop Date: 05/05/22 Status: Ordered Metoprolol Tartrate 25 mg oral tablet 1 tablet = 25 mg, By Mouth, 2 times a day, # 60 tablet, 2 Refills, Maintenance, 05/29/22 13:45:00 EST, Tablet, [email or web address] #[id number], Partial fill upon patient request if the prescription is for a schedule II opioid drug. refill from PCP, 174, c... Start Date: 05/29/22 Stop Date: 08/27/22 Status: Ordered Trulicity Pen 1.5 mg/0.5 mL subcutaneous solution = 1.5 mg, Subcutaneous Infusion, Every week, # 12 each, 1 Refills, Maintenance, 05/24/22 11:14:00 EST, [email or web address] #[id number], Partial fill upon patient request if the prescription is for a schedule II opioid drug., 172, cm, 05/20/22 15:52:00 EST... Start Date: 05/24/22 Status: Ordered valsartan 160 mg oral tablet 160 mg, 1, tablet, By Mouth, Daily, # 90 tablet, Refills 0, Tot. Refills 0, Maintenance, 05/29/22 10:46:00 EST, Route to Pharmacy Electronically, [email or web address] #[id number], Partial fill upon patient request if the [...] Care Nurse Name: Manpreet Tabares MD Position: [facility] Primary Care Physician Member Role: PCP Address: Address: [address] [place] [address]- Care Team Related Persons Name: ADINA PIERRE Address: home [address] [place] [address] Name: KANDACE PIERRE Address: home [address] [place] [address] Name: ZACK PIERRE Address: home [address] [place] [address]
--- OUTSIDE RECORDS SUMMARY | 2023-04-11 06:04 | XMS_ITS | Continuity of Care Document ---
Author Name Unknown Organization [facility] Address [address] [place] [address] [address] [place] [address]- Care Team Providers Care Mold Sprayer Name Role Phone Raysa JAY, Manpreet Garcia Primary Care Physician Encounter [facility] Date(s): 07/25/20 - 08/01/20 [facility] [address] [place], [place] [address] Attending Physician: Corry Camp MD Referring Physician: Manpreet Tabares MD Allergies, [...] Give n Patient Refuses 1Result Comment: [facility]-[id number] 2Admin Note: At work 3Admin Note: REFUSED [...] 08/03/19 11:44:00 EST, REC Powder, [facility]/pharmacy #[id number], test date 10/22/19, 240 mL By Mouth Every 10 minutes, 173, cm, 07/21/19 11:41:00 EST, Height, 86.5, kg, 06/04/19 13:20:00 EST,... 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[facility] CKD(Confirmed) Active 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 Depression(Confirmed) Active Insulin long-term use(Confirmed) Active Erectile dysfunction(Confirmed) Active Insulin long-term use(Confirmed) Active Hypercholesterolemia(Confirmed) Active Ineffective self health management(Confirmed) Active Uncontrolled type 2 diabetes mellitus(Confirmed) Active Diabetes mellitus type 2, uncontrolled(Confirmed) Active Vital Signs Most recent to oldest [Reference Range]: 1 Height 173 cm (07/25/20 4:14 PM) Weight 86 kg (07/25/20 4:14 PM) Body Mass Index [18.5-24.99] 28.73 *H* (07/25/20 4:14 PM) Temperature [96.8-100.4 DegF] 97.2 DegF (07/25/20 4:14 PM) Social History Social History Type Response Smoking Status Never smoker entered on: 06/30/13 Sex
--- OUTSIDE RECORDS SUMMARY | 2023-04-11 06:04 | XMS_ITS | Continuity of Care Document ---
Author Name Unknown Organization [facility] Terry lt Address [address] [place] [address]- Care Team Providers Care Card Room Manager Name Role Phone Manpreet Tabares MD Primary Care Physician [phone] En[place] [facility] Date(s): 02/05/22 - 03/08/22 [facility] Adult [address] [place] [address]- Attending Physician: Manpreet Tabares MD Allergies, Adverse [...] Give n Patient Refuses 1Result Comment: [facility]-[id number] 2Admin Note: At work 3Admin Note: REFUSED [...] tablet, 0 Refills, Maintenance, 02/05/22 10:43:00 EDT, [facility] #[id number], Partial fill upon patient request if the prescription is for a schedule IIopioid drug., 172, cm, 02/05/22 10:10:00 EDT, [facility]... 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
--- OUTSIDE RECORDS SUMMARY | 2023-04-11 06:04 | XMS_ITS | Continuity of Care Document ---
Author Name Unknown Organization [facility] Terry lt Address [address] [place] [address]- Care Team Providers Care Electric Gas Appliances Demonstrator Name Role Phone Raysa JAY, Manpreet Garcia Primary Care Physician [phone] [place] [facility] Date(s): 05/30/22 - 06/29/22 [facility] Adult [address] [place] [address]- Allergies, Adverse Reactions, Alerts Substance Reaction Severity [...] Give n Patient Refuses 1Result Comment: [facility]-[id number] 2Admin Note: At work 3Admin Note: REFUSED [...] Tot. Refills 11, Maintenance, Use with [place] to test bloodsugars tid for E11.9, 04/23/22 [...] 0 Refills, Maintenance, 04/05/22 15:56:00 EDT, Tablet, [facility] #[id number], Partial fill upon patient request if the prescription is for a schedule II opioid drug. refill from PCP, 172, c... Start Date: 04/05/22 Stop Date: 05/05/22 Status: Ordered Metoprolol Tartrate 25 mg oral tablet 1 tablet = 25 mg, By Mouth, 2 times a day, # 60 tablet, 2 Refills, Maintenance, 05/29/22 13:45:00 EST, Tablet, [facility] #[id number], Partial fill upon patient request if the prescription is for a schedule II opioid drug. refill from PCP, 174, c... Start Date: 05/29/22 Stop Date: 08/27/22 Status: Ordered Trulicity Pen 1.5 mg/0.5 mL subcutaneous solution = 1.5 mg, Subcutaneous Infusion, Every week, # 12 each, 1 Refills, Maintenance, 05/24/22 11:14:00 EST, [facility] #[id number], Partial fill upon patient request if the prescription is for a schedule II opioid drug., 172, cm, 05/20/22 15:52:00 EST... Start Date: 05/24/22 Status: Ordered valsartan 160 mg oral tablet 160 mg, 1, tablet, By Mouth, Daily, # 90 tablet, Refills 0, Tot. Refills 0, Maintenance, 05/29/22 10:46:00 EST, Route to Pharmacy Electronically, [facility] #[id number], Partial fill upon patient request if the [...] Care Nurse Name: Manpreet Tabares MD Position: [facility] Primary Care Physician Member Role: PCP Address: Address: [address] [place] [address]- Care Team Related Persons Name: ADINA PIERRE Address: [address] [place] [address] Name: KANDACE PIERRE Address: [address] [place] [address] Name: ZACK PIERRE Address: [address] [place] [address]
--- OUTSIDE RECORDS SUMMARY | 2023-04-11 06:04 | XMS_ITS | Continuity of Care Document ---
Author Name Unknown Organization [facility] Terry lt Address [address] [place] [address]- Care Team Providers Care Direct Marketing Coordinator Name Role Phone Raysa JAY, Manpreet Garcia Primary Care Physician [phone] Encounter [facility] Date(s): 09/19/20 - 10/19/20 [facility] Adult [address] [place] [address]- Attending Physician: Yuridia Bowman Admitting Physician: AdmYuridia wang Referring Physician: Yuridia Bowman Allergies, Adverse Reactions, Alerts Substance Reaction Severity [...] Not Give n Patient Refuses 1Result Comment: [facility]-[id number] 2Admin Note: At work 3Admin Note: REFUSED [...] Refills, Maintenance, 08/03/19 11:44:00 EST, REC Powder, [facility]/pharmacy #[id number], test date 10/22/19, 240 mL By Mouth Every 10 minutes, 173, cm, 07/21/19 11:41:00 EST, Height, 86.5, kg, 06/04/19 13:20:00 EST,... Start Date: 08/03/19 Status: Ordered sitaGLIPtin 50 mg oral tablet 1 tablet = 50 mg, By Mouth, Daily, # 7 capsule, 0 Refills, Maintenance, 05/28/20 17:03:00 EST, [facility]/pharmacy #[id number], Partial fill upon patient request, 173, [...] 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) Active Degenerative joint disease - [...]
--- OUTSIDE RECORDS SUMMARY | 2023-04-11 06:04 | XMS_ITS | Continuity of Care Document ---
Author Name Unknown Organization [facility] Terry lt Address [address] [place] [address]- Care Team Providers Care Factory Superintendent Name Role Phone Raysa JAY, Manpreet Garcia Primary Care Physician [phone] Encounter [facility] Date(s): 09/03/22 - 10/03/22 [facility] Adult [address] [place] [address]- Allergies, Adverse Reactions, Alerts Substance Reaction Severity Status codeine loopy Active Immunizations Given and Recorded Vaccine Date Status Refusal Reason [id number] 12y+ bivalent booster vax 06/04/22 Recorded influenza [...] Give n Patient Refuses 1Result Comment: [facility]-[id number] 2Admin Note: At work 3Admin Note: REFUSED 4Admin Note: 2009 OLD PCP 5Result Comment: will follow up with HCP Medications ARIPiprazole 2 mg oral tablet 2 mg, 1, tablet, By Mouth, Daily, # 30 tablet, Refills 0, Tot. Refills 0, Maintenance, 08/07/22 9:16:00 EST, Route to Pharmacy Electronically, [facility] #[id number], Partial fill upon patient request if the [...] tablet, 1 Refills, Maintenance, 09/20/22 15:42:00 EST, [facility] #[id number], 173, cm, 08/30/22 14:53:00 EST, Height, 84, [...] 0 Refills, Maintenance, 09/03/22 16:31:00 EST, Tablet, [facility] #[id number], Partial fill upon patient request if theprescription [...] EST, Compound Start Date: 08/29/22 Status: Ordered Tessalon Perles 100 mg oral capsule 1 capsule = 100 mg, By Mouth, 3 times a day, for 7 days, # 21 capsule, 0 Refills, Acute 10/07/22 16:22:00 EDT, 09/30/22 16:22:00 EDT, Capsule, [facility]/pharmacy #[id number], Partial fill upon patient request ifthe prescription is for a schedule II opioid drug.,... Start Date: 09/30/22 Stop Date: 10/07/22 Status: Ordered Trulicity Pen 1.5 mg/0.5 mL subcutaneous solution = 1.5 mg, Subcutaneous Infusion, Every week, # 12 each, 1 Refills, Maintenance, 05/24/22 11:14:00 EST, [facility] #[id number], Partial fill upon patient request if the prescription is for a schedule II opioid drug., 172, cm, 05/20/22 15:52:00 EST... Start Date: 05/24/22 Status: Ordered valsartan 160 mg oral tablet 160 mg, 1, tablet, By Mouth, Daily, # 90 tablet, Refills 1, Tot. Refills 1, Maintenance, 09/20/22 15:42:00 EST, Route to Pharmacy Electronically, [facility] #[id number], Partial fill upon patient request if the [...] Manpreet Tabares MD Position: [facility] Primary Care Physician Member Role: PCP Address: Address: [address] [place] [id number] Name: Eliane Shelton RN Position: [facility] RN Member Role: Primary Care Nurse Name: Faith Dixon RN Position: [facility] RN Member Role: Primary Care Nurse Care Team Related Persons Name: NIAADINA SANTANA Address: [address] [place] [address] Name: KANDACE PIERRE Address: [address] [place] [address] Name: ZACK PIERRE Address: [address] [place] [address]
--- OUTSIDE RECORDS SUMMARY | 2023-04-11 06:04 | XMS_ITS | Continuity of Care Document ---
Author Name Unknown Organization [facility] Terry lt Address [address] [place] [address]- Care Team Providers Care Quality Systems Technician Name Role Phone Raysa JAY, Manpreet Garcia Primary Care Physician [phone] Encounter [facility] Date(s): 05/22/22 - 06/21/22 [facility] Adult [address] [place] [address]- Allergies, Adverse Reactions, Alerts Substance Reaction Severity [...] Patient Refuses 1Result Comment: [facility]-[id number] 2Admin Note: At work 3Admin Note: REFUSED [...] 11, Tot. Refills 11, Maintenance, Use with [place] to test bloodsugars tid for E11.9, 04/23/22 [...] 0 Refills, Maintenance, 04/05/22 15:56:00 EDT, Tablet, [facility] #[id number], Partial fill upon patient request if the prescription is for a schedule II opioid drug. refill from PCP, 172, c... Start Date: 04/05/22 Stop Date: 05/05/22 Status: Ordered Metoprolol Tartrate 25 mg oral tablet 1 tablet = 25 mg, By Mouth, 2 times a day, # 60 tablet, 2 Refills, Maintenance, 05/29/22 13:45:00 EST, Tablet, [facility] #[id number], Partial fill upon patient request if the prescription is for a schedule II opioid drug. refill from PCP, 174, c... Start Date: 05/29/22 Stop Date: 08/27/22 Status: Ordered Trulicity Pen 1.5 mg/0.5 mL subcutaneous solution = 1.5 mg, Subcutaneous Infusion, Every week, # 12 each, 1 Refills, Maintenance, 05/24/22 11:14:00 EST, [facility] #[id number], Partial fill upon patient request if the prescription is for a schedule II opioid drug., 172, cm, 05/20/22 15:52:00 EST... Start Date: 05/24/22 Status: Ordered valsartan 160 mg oral tablet 160 mg, 1, tablet, By Mouth, Daily, # 90 tablet, Refills 0, Tot. Refills 0, Maintenance, 05/29/22 10:46:00 EST, Route to Pharmacy Electronically, [facility] #[id number], Partial fill upon patient request if the [...] Care Nurse Name: Manpreet Tabares MD Position: [facility] Primary Care Physician Member Role: PCP Address: Address: [address] [place] [address]- Care Team Related Persons Name: ADINA PIERRE Address: [address] [place] [address] Name: KANDACE PIERRE Address: [address] [place] [address] Name: ZACK PIERRE Address: [address] [place] [address]
--- OUTSIDE RECORDS SUMMARY | 2023-04-11 06:04 | XMS_ITS | Continuity of Care Document ---
Author Name Unknown Organization [facility] Terry lt Address [address] [place] [address]- Care Team Providers Care Hydroponics Grower Name Role Phone Raysa JAY, Manpreet Garcia Primary Care Physician Encounter [facility] Date(s): 07/18/21 - 08/17/21 [facility] Adult [address] [place] [address]- Allergies, Adverse Reactions, Alerts Substance Reaction Severity [...] Give n Patient Refuses 1Result Comment: [facility]-[id number] 2Admin Note: At work 3Admin Note: REFUSED [...] Refills, Maintenance, 08/03/19 11:44:00 EST, REC Powder, [facility]/pharmacy #[id number], test date 10/22/19, 240 mL By Mouth Every 10 minutes, 173, cm, 07/21/19 11:41:00 EST, Height, 86.5, kg, 06/04/19 13:20:00 EST,... Start Date: 08/03/19 Status: Ordered Trulicity Pen 1.5 mg/0.5 mL subcutaneous solution = 1.5 mg, Subcutaneous Infusion, Every week, # 12 each, 3 Refills, Maintenance, 07/27/20 15:47:00 EST, [facility], Partial fill upon patient request [...]
--- OUTSIDE RECORDS SUMMARY | 2023-04-11 06:05 | XMS_ITS | Continuity of Care Document ---
Author Name Unknown Organization [facility] Terry lt Address [address] [place] [address]- Care Team Providers Care Speech Therapy Assistant Name Role Phone Raysa JAY, Manpreet Garcia Primary Care Physician [phone] [id number] Date(s): 03/15/21 - 04/14/21 [facility] Adult [address] [place] [address]- Allergies, Adverse Reactions, Alerts Substance Reaction Severity [...] Give n Patient Refuses 1Result Comment: [facility]-[id number] 2Admin Note: At work 3Admin Note: REFUSED [...] Refills, Maintenance, 08/03/19 11:44:00 EST, REC Powder, [facility]/pharmacy #[id number], test date 10/22/19, 240 mL By Mouth Every 10 minutes, 173, cm, 07/21/19 11:41:00 EST, Height, 86.5, kg, 06/04/19 13:20:00 EST,... Start Date: 08/03/19 Status: Ordered Trulicity Pen 1.5 mg/0.5 mL subcutaneous solution = 1.5 mg, Subcutaneous Infusion, Every week, # 12 each, 3 Refills, Maintenance, 07/27/20 15:47:00 EST, [facility], Partial fill upon patient request [...]
--- OUTSIDE RECORDS SUMMARY | 2023-04-11 06:05 | XMS_ITS | Continuity of Care Document ---
Author Name Unknown Organization [facility] Address [address] [place] [address]- Care Team Providers Care Mathematics Academic Chair Name Role Phone Raysa JAY, Manpreet Garcia Primary Care Physician Encounter [facility] [place] Date(s): 04/30/22 - 05/30/22 [facility] [address] [place] [address]- Allergies, Adverse Reactions, Alerts Substance Reaction Severity [...] n Patient Refuses 1Result Comment: [facility]-[id number] 2Admin Note: At work 3Admin Note: REFUSED [...] 11, Tot. Refills 11, Maintenance, Use with [place] to test bloodsugars tid for E11.9, 04/23/22 [...] 0 Refills, Maintenance, 04/05/22 15:56:00 EDT, Tablet, [facility] #[id number], Partial fill upon patient request if the prescription is for a schedule II opioid drug. refill from PCP, 172, c... Start Date: 04/05/22 Stop Date: 05/05/22 Status: Ordered Metoprolol Tartrate 25 mg oral tablet 1 tablet = 25 mg, By Mouth, 2 times a day, # 60 tablet, 2 Refills, Maintenance, 05/29/22 13:45:00 EST, Tablet, [facility] #[id number], Partial fill upon patient request if the prescription is for a schedule II opioid drug. refill from PCP, 174, c... Start Date: 05/29/22 Stop Date: 08/27/22 Status: Ordered Trulicity Pen 1.5 mg/0.5 mL subcutaneous solution = 1.5 mg, Subcutaneous Infusion, Every week, # 12 each, 1 Refills, Maintenance, 05/24/22 11:14:00 EST, [facility] #[id number], Partial fill upon patient request if the prescription is for a schedule II opioid drug., 172, cm, 05/20/22 15:52:00 EST... Start Date: 05/24/22 Status: Ordered valsartan 160 mg oral tablet 160 mg, 1, tablet, By Mouth, Daily, # 90 tablet, Refills 0, Tot. Refills 0, Maintenance, 05/29/22 10:46:00 EST, Route to Pharmacy Electronically, [facility] #[id number], Partial fill upon patient request if the [...] Team Personnel Name: Kelly Swanson RN Position: [facility] RN Member Role: Primary Care Nurse Name: Hoa Booth RN Position: [facility] RN Member Role: Primary Care Nurse Name: Manpreet Tabares MD Position: [facility] Primary Care Physician Member Role: PCP Address: Address: [address] [place] [id number]- [place] Care Team Related Persons Name: ADINA PIERRE Address: home [address] [place] [address] Name: IGNACIO KANDACE Address: home [address] [place] [address] UM Name: ZACK PIERRE Address: [address] [place] [address]
--- OUTSIDE RECORDS SUMMARY | 2023-04-11 06:05 | XMS_ITS | Continuity of Care Document ---
Author Name Unknown Organization [facility] Address [address] [place] [id number]- Care Team Providers Care Playground Supervisor Name Role Phone Raysa JAY, Manpreet Garcia Primary Care Physician [place] [facility] [place] - 01/20/[address] [address]- Allergies, Adverse Reactions, Alerts Substance Reaction Severity [...] Give n Patient Refuses 1Result Comment: [facility]-[id number] 2Admin Note: At work 3Admin Note: REFUSED [...] each, 1 Refills, Maintenance, 01/07/22 15:37:00 EDT, [facility] #[id number], Partial fill upon patient request if the prescription is for a schedule II opioid drug., 172, cm, 12/28/21 8:08:00 EDT,... Start Date: 01/07/22 Status: Ordered valsartan 80 mg oral tablet 80 mg, 1, tablet, By Mouth, Daily, please call to schedule physical with Dr. Tabares, # 90 tablet, Refills 0, Tot. Refills 0, Maintenance, 11/09/21 14:29:00 EDT, Route to Pharmacy Electronically, [facility]/pharmacy #[id number], Partial fill upon patient request... Start Date: [...] 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[facility] [place] [facility] CKD(Confirmed) Active Degenerative joint disease - [...]
--- OUTSIDE RECORDS SUMMARY | 2023-04-11 06:05 | XMS_ITS | Continuity of Care Document ---
Author Name Unknown Organization [facility] ter Address [address] [place] [id number]- Care Team Providers Care Manager Hospital Name Role Phone Raysa JAY, Manpreet Garcia Primary Care Physician [phone] [place] [facility] [place] - 05/16/[address] [id number] Attending Physician: Clifton Castro MD Admitting Physician: Clifton Castro MD Referring Physician: Vu Lama MD Allergies, Adverse Reactions, Alerts Substance Reaction [...] Give n Patient Refuses 1Result Comment: [facility]-[id number] 2Admin Note: At work 3Admin Note: REFUSED [...] 11, Tot. Refills 11, Maintenance, Use with [place] to test bloodsugars tid for E11.9, 04/23/22 [...] 0 Refills, Maintenance, 04/05/22 15:56:00 EDT, Tablet, [facility] #[id number], Partial fill upon patient request if the [...] each, 1 Refills, Maintenance, 01/07/22 15:37:00 EDT, [facility] #[id number], Partial fill upon patient request if the [...] on: 06/30[birth year] Sex Patient Care team information Personnel Name: Raysa JAY, aMnpreet Garcia Address: Address: [address] [place] [id number]
--- OUTSIDE RECORDS SUMMARY | 2023-04-11 06:05 | XMS_ITS | Continuity of Care Document ---
Author Name Unknown Organization [facility] Address Unknown Care Team Providers Care Healthcare Associate Name Role Phone Manpreet Tabares MD Primary Care Physician En[place] [facility] [place] [facility] [id number] Date(s): 10/15/21 - 12/08/21 [facility] Attending Physician: Jonh Menon MD Referring Physician: Manpreet Tabares MD Allergies, [...] Patient Refuses 1Result Comment: [facility]-[id number] 2Admin Note: At work 3Admin Note: REFUSED [...] 0 Refills, Maintenance, 09/26/21 17:25:00 EDT, Tablet, [facility]/pharmacy #[id number], Partial fill upon patient request if the prescription is for a schedule II opioid drug., 172, cm, 0... Start Date: 09/26/21 Status: Ordered meloxicam 15 mg oral tablet 1 tablet = 15 mg, By Mouth, Daily, PRN For pain, with food, # 30 tablet, 1 Refills, Maintenance, 11/27/21 14:40:00 EDT, Tablet, [facility] #[id number], Partial fill upon patient request if the [...] 11/27/21 14:40:00 EDT, Route to Pharmacy Electronically, [facility] #[id number], Partial fill upon patient request if the [...] 11/09/21 14:29:00 EDT, Route to Pharmacy Electronically, [facility]/pharmacy #[id number], Partial fill upon patient request... Start Date: [...]
--- OUTSIDE RECORDS SUMMARY | 2023-04-11 06:05 | XMS_ITS | Continuity of Care Document ---
Author Name Unknown Organization [facility] ter Address [address] [place] [id number] Care Team Providers Care Ice Puller Name Role Phone Raysa JAY, Manpreet Garcia Primary Care Physician [facility] [id number] Date(s): 08/27/22 - 08/29/[address] [address]- Encounter Diagnosis Vertigo(Final) - 08/27/22 Headache(Final) - 08/27/22 Discharge Disposition: A-D/C Home Attending Physician: Aquilino Chatman MD Admitting Physician: Macarena Restrepo MD Referring Physician: Not on Staff, Referring MD Allergies, Adverse Reactions, Alerts Substance Reaction Severity Status codeine loopy Active Immunizations Given and Recorded Vaccine Date Status Refusal Reason [id number] 12y+ bivalent booster vax 06/04/22 Recorded influenza [...] Give n Patient Refuses 1Result Comment: [facility]-[id number] 2Admin Note: At work 3Admin Note: REFUSED 4Admin Note: 2008 OLD PCP 5Result Comment: will follow up with HCP Medications ARIPiprazole 2 mg oral tablet 2 mg, 1, tablet, By Mouth, Daily, # 30 tablet, Refills 0, Tot. Refills 0, Maintenance, 08/07/22 9:16:00 EST, Route to Pharmacy Electronically, [id number], Partial fill upon patient request if the [...] dizziness, # 30 tablet, 0 Refills, Maintenance, 08/29/22 6:27:00 EST, Tablet, Partial fill upon patient request if the prescription is for a schedule II opioid drug. Start Date: 08/29/22 Status: Ordered MetFORMIN (Eqv-Glucophage XR) 500 mg [...] each, 1 Refills, Maintenance, 05/24/22 11:14:00 EST, [facility] #[id number], Partial fill upon patient request if the prescription is for a schedule II opioid drug., 172, cm, 05/20/22 15:52:00 EST... Start Date: 05/24/22 Status: Ordered valsartan 160 mg oral tablet 160 mg, Tablet, By Mouth, Hold for: SBP< 120, 08/29/22 9:00:00 EST Start Date: 08/29/22 Stop Date: 08/29/22 Status: Completed valsartan 160 mg oral tablet 160 mg, 1, tablet, By Mouth, Daily, # 90 tablet, Refills 0, Tot. Refills 0, Maintenance, 05/29/22 10:46:00 EST, Route to Pharmacy Electronically, [facility] #[id number], Partial fill upon patient request if the [...] Diabetes mellitus type 2, uncontrolled Confirmed Active Results Radiology Reports * Exam Date Time Procedure Performing Provider Status 08/28/22 7:22 PM MRI Brain W/O Contrast [facility] (Verified) Notes: (MRI Brain W/O Contrast) Reason For Exam: TIA RESULT: MRI Brain W/O Contrast MRI Brain W/O Contrast INDICATION: Reason: TIA; Clinical Question(s): Infarction; Order Comment: Please see Reference Textfor complete list of contraindications Infarction TECHNIQUE: MRI of the brain was performed without contrast utilizing sagittal T1, axial T2, axial FLAIR, axial SWAN, and axial DWI sequences. COMPARISON: Head CT 08/27/2022. Brain MRI 06/05/2019. FINDINGS: BRAIN and EXTRA-AXIAL SPACES: The ventricles and sulci are prominent reflecting volume loss. Scattered nonspecific T2/flair hyperintensities are present throughout the subcortical, deep, and periventricular white matter. There is no evidence of restricted diffusion to suggest acute infarction. There is no hemorrhage, midline shift, or mass effect. There is no extra-axial collection. Flow voids are preserved in the dominant intracranial vessels. EXTRACRANIAL SOFT TISSUES: Orbits are unremarkable. Mild scattered paranasal sinus mucosal thickening. This retention cyst in the sphenoid sinus on the left side. BONES: Marrow signal is preserved. IMPRESSION: 1. No acute/subacute infarct, mass, hemorrhage, or other acute intracranial abnormality. 2. Mild scattered T2/FLAIR hyperintense foci in the white matter, nonspecific but most likely reflecting chronic small vessel disease. WSN: [id number] Ordering Physician: Aquilino Chatman Dictated By: Deirdre Molina MD Dictated Date/Time: 08/29/22 7:38 am Reviewed By: Deirdre Molina MD Signed By: Deirdre Molina MD Signed Date/Time: 08/29/22 7:38 am Transcribed By: RAHUL Transcribed Date/Time: 08/29/22 7:32 am * Exam Date Time Procedure Performing Provider Status 08/27/22 10:09 AM Chest Portable Rashawn , Babs; Auth ( Verified) Notes: (Chest Portable) Reason For Exam: Angina RESULT: Chest Portable Chest Portable INDICATION: Chest pain, dizziness. COMPARISON: 04/04/2022. FINDINGS: LINES AND TUBES: None. LUNGS AND PLEURA: Clear lungs. Normal pulmonary vascularity. No pleural effusion. No pneumothorax. HEART, MEDIASTINUM AND MICHELLE: Heart is normal in size. Normal mediastinal and hilar contour. BONES AND SOFT TISSUES: Small osseous focus along the superior aspect of the right humeral head/neck, which may represent calcific tendinosis. IMPRESSION: No evidence of acute abnormality. I have personally reviewed the images and I agree with this report. WSN: [id number] Ordering Physician: Penelope Amaya Dictated By: Jermain Sutherland MD Dictated Date/Time: 08/27/22 10:38 a Reviewed By: Kevin Catherine MD Signed By: Kevin Catherine MD Signed Date/Time: 08/27/22 10:43 am Transcribed By: RAHUL Transcribed Date/Time: 08/27/22 10:16 am * Exam Date Time Procedure Performing Provider Status 08/27/22 9:[address] Angio Neck Penelope Dickens; Auth (V erified) Notes: (CT Angio Neck) Reason For Exam: Aneurysm, neck vessel(s);Other: RESULT: CT Angio Neck CT Angio Head, CT Angio Neck Hx of Present Illness: Pt arrived via EMS from work. Pt reports weakness dizziness today while at work. My boss saw me stumble into a door. Pt reports CPx 1 week .; Reason: Other:; Neuro deficit, acute, stroke suspected; Clinical Question(s): Other:; Hematoma Aneurysm; Order Comment: / Other: TECHNIQUE: CT angiogram of the head and neck was performed after bolus administration of intravenous contrast. 100 mL of Omnipaque 300 was administered intravenously. Coronal and sagittal MIP reformatted images were obtained. Additional 3-D images were created on a separate workstation under concurrent supervision by the attending radiologist. All stenoses are measured using NASCET criteria. Weight-based protocol using automatic tube modulation was used to optimize exposure parameters. RADIATION DOSE PARAMETERS: CTDIvol Body: 13.60 mGy, DLP Body: 590 mGy*cm. COMPARISON: Noncontrast CT head performed concurrently. CTA Head and Neck 09/18/2021. FINDINGS: CTA OF THE NECK: Arch: There is a three vessel aortic arch. The origins of the supra aortic vessels are patent. Right carotid system: The common carotid and cervical internal carotid arteries are patent. There is calcified atherosclerotic plaque at the carotid bifurcation, but no ICA stenosis (0%) by NASCET criteria. There is no dissection or aneurysm. Left carotid system: The common carotid and cervical internal carotid arteries are patent. There iscalcified atherosclerotic plaque at the carotid bifurcation, but no ICA stenosis (0%) by NASCET criteria. There is no dissection or aneurysm. There is a left-dominant vertebral artery system. Right vertebral: No significant stenosis. No evidence of dissection or aneurysm. Left vertebral: No significant stenosis. No evidence of dissection or aneurysm. Other: Soft tissues and bones: No evidence of lymphadenopathy or mass. 2 nodules are noted medially inferior to the right thyroid lobe and thyroid isthmus,, the larger medially measuring 1.6 cm and containing coarse calcification, and small focus with apparent cystic change on the left measuring 1.1 cm. These are similar in size dating back to at least 06/03/2019, possibly exophytic thyroid nodules. Theremainder of the thyroid contain subcentimeter nodularity which does not require dedicated follow-up. Visualized lungs are blurred by motion artifact, without significant superimposed airspace opacity. Multilevel degenerative changes of the spine are noted, without acute osseous abnormality. CTA OF THE HEAD: Anterior circulation: Bilateral intracranial ICAs demonstrate atherosclerotic calcification, without stenosis. Bilateral MELY and MCA branches are patent. There is no significant stenosis, proximal cutoff, aneurysm, or vascular malformation. Posterior circulation: Trace atherosclerotic calcifications of bilateral intracranial vertebral arteries are noted, with no significant stenosis. The basilar artery is relatively small in caliber butpatent. Bilateral PICA, SCA, and FINANCIAL PLANNING ADVISER branches are patent. There is predominantly supply to both licensed physical therapist assistant with hypoplastic P1 segments on each side. No high-grade stenosis or proximal cutoff is seen. There is no aneurysm or vascular malformation. Veins: Major dural venous sinuses are patent. Other: Soft tissues and bones: No midline shift or effacement of the basal cisterns. No space-occupying hemorrhage. No territorial loss of carreon-white matter differentiation. Orbits are unremarkable. There is mild scattered mucosal thickening in the paranasal sinuses , greatest in the right maxillary sinus, without fluid levels. Small areas retention cyst is seen in the left sphenoid sinus. IMPRESSION: No proximal occlusion or high grade stenosis in the major arteries of the head and neck. WSN: [id number] Ordering Physician: Penelope Amaya Dictated By: Bonnie Sweeney MD Dictated Date/Time: 08/27/22 3:46 pm Reviewed By: Bonnie Sweeney MD Signed By: Bonnie Sweeney MD Signed Date/Time: 08/27/22 3:46 pm Transcribed By: RAHUL Transcribed Date/Time: 08/27/22 10:10 am * Exam Date Time Procedure Performing Provider Status 08/27/22 9:[address] Angio Head Penelope Dickens; Auth (V erified) Notes: (CT Angio Head) Reason For Exam: Neuro deficit, acute, stroke suspected;Other: RESULT: CT Angio Head CT Angio Head, CT Angio Neck Hx of Present Illness: Pt arrived via EMS from work. Pt reports weakness dizziness today while at work. My boss saw me stumble into a door. Pt reports CPx 1 week .; Reason: Other:; Neuro deficit, acute, stroke suspected; Clinical Question(s): Other:; Hematoma Aneurysm; Order Comment: / Other: TECHNIQUE: CT angiogram of the head and neck was performed after bolus administration of intravenous contrast. 100 mL of Omnipaque 300 was administered intravenously. Coronal and sagittal MIP reformatted images were obtained. Additional 3-D images were created on a separate workstation under concurrent supervision by the attending radiologist. All stenoses are measured using NASCET criteria. Weight-based protocol using automatic tube modulation was used to optimize exposure parameters. RADIATION DOSE PARAMETERS: CTDIvol Body: 13.60 mGy, DLP Body: 590 mGy*cm. COMPARISON: Noncontrast CT head performed concurrently. CTA Head and Neck 09/18/2021. FINDINGS: CTA OF THE NECK: Arch: There is a three vessel aortic arch. The origins of the supra aortic vessels are patent. Right carotid system: The common carotid and cervical internal carotid arteries are patent. There is calcified atherosclerotic plaque at the carotid bifurcation, but no ICA stenosis (0%) by NASCET criteria. There is no dissection or aneurysm. Left carotid system: The common carotid and cervical internal carotid arteries are patent. There iscalcified atherosclerotic plaque at the carotid bifurcation, but no ICA stenosis (0%) by NASCET criteria. There is no dissection or aneurysm. There is a left-dominant vertebral artery system. Right vertebral: No significant stenosis. No evidence of dissection or aneurysm. Left vertebral: No significant stenosis. No evidence of dissection or aneurysm. Other: Soft tissues and bones: No evidence of lymphadenopathy or mass. 2 nodules are noted medially inferior to the right thyroid lobe and thyroid isthmus,, the larger medially measuring 1.6 cm and containing coarse calcification, and small focus with apparent cystic change on the left measuring 1.1 cm. These are similar in size dating back to at least 06/03/2019, possibly exophytic thyroid nodules. Theremainder of the thyroid contain subcentimeter nodularity which does not require dedicated follow-up. Visualized lungs are blurred by motion artifact, without significant superimposed airspace opacity. Multilevel degenerative changes of the spine are noted, without acute osseous abnormality. CTA OF THE HEAD: Anterior circulation: Bilateral intracranial ICAs demonstrate atherosclerotic calcification, without stenosis. Bilateral MELY and MCA branches are patent. There is no significant stenosis, proximal cutoff, aneurysm, or vascular malformation. Posterior circulation: Trace atherosclerotic calcifications of bilateral intracranial vertebral arteries are noted, with no significant stenosis. The basilar artery is relatively small in caliber butpatent. Bilateral PICA, SCA, and FINANCIAL PLANNING ADVISER branches are patent. There is predominantly supply to both licensed physical therapist assistant with hypoplastic P1 segments on each side. No high-grade stenosis or proximal cutoff is seen. There is no aneurysm or vascular malformation. Veins: Major dural venous sinuses are patent. Other: Soft tissues and bones: No midline shift or effacement of the basal cisterns. No space-occupying hemorrhage. No territorial loss of carreon-white matter differentiation. Orbits are unremarkable. There is mild scattered mucosal thickening in the paranasal sinuses , greatest in the right maxillary sinus, without fluid levels. Small areas retention cyst is seen in the left sphenoid sinus. IMPRESSION: No proximal occlusion or high grade stenosis in the major arteries of the head and neck. WSN: [id number] Ordering Physician: Penelope Amaya Dictated By: Bonnie Sweeney MD Dictated Date/Time: 08/27/22 3:46 pm Reviewed By: Bonnie Sweeney MD Signed By: Bonnie Sweeney MD Signed Date/Time: 08/27/22 3:46 pm Transcribed By: RAHUL Transcribed Date/Time: 08/27/22 10:10 am * Exam Date Time Procedure Performing Provider Status 08/27/22 9:[address] Head/Brain W/O Contrast Col donna Dickens; Auth (Verified) Notes: (CT Head/Brain W/O Contrast) Reason For Exam: Neuro deficit, acute, stroke suspected;Other: RESULT: CT Head/Brain W/O Contrast CT Head/Brain W/O Contrast INDICATION: Hx of Present Illness: Pt arrived via EMS from work. Pt reprots weakness dizziness today while at work. My boss saw me stumble into a door. Pt reports CPx 1 week .; Reason: Other:; Neuro deficit, acute, stroke suspected; Clinical Question(s): Other:; Hematoma Infarction TECHNIQUE: Noncontrast head CT using axial technique and reconstructed in axial and coronal planes.Iterative reconstruction techniques are used to optimize dose and image quality. COMPARISON: None. FINDINGS: Sheep Sticker view findings, lines and tubes: None. BRAIN AND EXTRA-AXIAL SPACES: No parenchymal hemorrhage, midline shift, or mass effect. Carreon-white matter differentiation is wellpreserved. No acute infarct. Negative insular ribbon sign. Atherosclerotic vascular calcification of the carotid arteries but negative hyperdense vessel sign. Mild prominence of the ventricles and sulci consistent with parenchymal volume loss. Mild low-density white matter changes. No subarachnoid hemorrhage. No subdural or epidural collection. CALVARIUM, SKULL BASE, AND SOFT TISSUES: No fractures or suspicious bony lesions. Mild paranasal sinus mucosal thickening. Partial opacification of the left aspect of the sphenoid sinuses. Visualized orbits and globes are intact. The extracranial soft tissues are unremarkable. IMPRESSION: No acute intracranial pathology. WSN: [id number] Ordering Physician: Penelope Amaya Dictated By: Chad Lindsey MD Dictated Date/Time: 08/27/22 9:57 am Reviewed By: Chad Lindsey MD Signed By: Chad Lindsey MD Signed Date/Time: 08/27/22 9:57 am Transcribed By: RAHUL Transcribed Date/Time: 08/27/22 9:55 am Vital Signs Most recent to oldest [Reference Range]: 1 2 3 Height 173 cm (08/29/22 9:16 AM) 173 cm (08/29/22 8:20 AM) 173 cm (08/29/22 4:08 AM) Weight 84 kg (08/27/22 5:57 PM) Oxygen Saturation [94-100 %] 98 % (08/29/22 9:16 AM) 100 % (08/29/22 8:20 AM) 99 % (08/29/22 4:08 AM) Pulse Rate [55-90 bpm] 88 bpm (08/29/22 9:16 AM) 80 bpm (08/29/22 8:20 AM) 79 bpm (08/29/22 4:08 AM) Body Mass Index [18.5-24.99 kg/m2] 28.07 kg/m2 *H* (08/27/22 5:57 PM) Blood Pressure [90-138/55-84 mm Hg] 164/97mm Hg *H* (08/29/22 9:16 AM) 180/114mm Hg *H* (08/29/22 8:20 AM) 180/114mm Hg *H* (08/29/22 7:56 AM) Respiratory Rate [16-30 br/min] 18 br/min (08/29/22 9:16 AM) 17 br/min (08/29/22 8:20 AM) 18 br/min (08/29/22 8:05 AM) Temperature [96.8-100.4 DegF] 98.1 DegF (08/29/22 9:16 AM) 97.4 DegF (08/29/22 8:20 AM) 97.9 DegF (08/29/22 4:08 AM) Mode of Delivery (Oxygen) Room air (08/29/22 9:16 AM) Room air (08/29/22 8:20 AM) Room air (08/29/22 4:08 AM) Blood pressure sites Arm, right (08/29/22 9:16 AM) Arm, left (08/29/22 8:20 AM) Arm, left (08/29/22 4:08 AM) Temperature Route Oral (08/29/22 9:16 AM) Oral (08/29/22 8:20 AM) Oral (08/29/22 4:08 AM) Dry Weight 84 kg (08/27/22 5:57 PM) Social History Social History Type Response Smoking Status Never smoker entered on: 06/30/13 Sex Admission evaluation note * Tawanna Noriega MD: MODIFY Scot JAY, Chandan Myers: PERFORM, MODIFY Scot JAY, Chandan Myers: MODIFY, MODIFY Scot JAY, Chandan Myers: MODIFY, MODIFY Scot JAY, Chandan Myers: MODIFY, MODIFY Scot JAY, Chandan Myers: MODIFY, MODIFY Scot JAY, Chandan Myers: MODIFY Event Display: Admission Note Authored Date: [id number] Patient: ??BELLE PIERRE ? Age:??56 Years?Sex:??Male?:??1965?? Chief Complaint/Reason for Consultation EMS reports that pt was dizzy at work c CP x 1 week. Pt stumbled at work in from of boss. History of Present Illness 56-year-old male with history of??HTN, HLD, DM,??osteomyelitis depression, anxiety, borderline personality disorder, history of suicide attempt who presents with dizziness. ?? Patient reports since Friday having room spinning sensation, worse when turning his head, associated with nausea and some episodes of vomiting. Today he was stumbling at work so his boss told him to go to the hospital. No headache, ear ringing, hearing loss, fever or chills. Patient reports having the same symptoms in September when he was diagnosed with vertigo after bumping his head on a door and suffering a concussion. He failed the Maren maneuver but his symptoms resolved after 4 weeks of vestibular therapy. ?? Patient is afebrile and HD stable. CBC and BMP unremarkable. High sensitivity troponin 25. CXR non-acute. CT head and CTA head and neck non-acute. Patient loaded with Aspirin and given Toradol, Meclizine 25 mg, Compazine 10 mg, and 1L IVF. Review of Systems Patient reports dizziness, nausea, vomiting, discoordination Patient denies fever, chills, headache, ear ringing, hearing loss Objective Vital Signs?? Temperature: 98.1 DegF (08/27/22 15:39:00) Temperature Route: Oral (08/27/22 15:39:00) Pulse Rate: 79 bpm (08/27/22 15:39:00) Respiratory Rate: 16 br/min (08/27/22 15:39:00) Systolic Blood Pressure: 136 mm Hg (08/27/22 15:39:00) Diastolic Blood Pressure: 71 mm Hg (08/27/22 15:39:00) Blood pressure sites: Arm, right (08/27/22 15:39:00) Mean Arterial Pressure: 93 mm Hg (08/27/22 15:39:00) Pulse Pressure: 65 mm Hg (08/27/22 15:39:00) Oxygen Saturation: 97 % (08/27/22 15:39:00) Mode of Delivery (Oxygen): Room air (08/27/22 15:39:00) Early Warning Score: 0 (08/27/22 15:40:16) ?? Physical Exam General:??No acute distress, well appearing HEENT:??Moist mucus membranes, PERRL Respiratory:??Clear to auscultation bilaterally, no increased work of breathing, no wheezes Cardiovascular:??Normal rate, regular rhythm, no murmurs?? GI/Abdomen:??Normal active bowel sounds, soft, non-tender, non-distended Extremities:??Moving extremities, no leg trauma Skin:??No jaundice, no ecchymoses Neurologic:??Alert & Oriented, no gross focal neurologic deficits Psychiatric:??Mood and affect appropriate Assessment/Plan Assessment:??56-year-old male with history of HTN, HLD, DM, osteomyelitis depression, anxiety, borderline personality disorder, history of suicide attempt who presents with dizziness and is admitted for presumed??vertigo. ?? Vertigo Reports room spinning sensation, worse with movement of head, associated with nausea, vomiting, andstumbling Reports feeling the same in September when diagnosed with vertigo after conccusing his head, improving after 4 weeks of vestibular therapy Presentation consistent with BPPV CTH and CTA H/N non-acute ?? Plan: -OT/PT eval for vestibular therapy -Discharge tomorrow with script for outpatient vestibular therapy -Meclizine PRN for severe dizziness -Compazine PRN for nausea (patient has prior prolonged QTc) ?? HTN: Continue valsartan with holding parameters Diabetes: ISS, POC qac/qhs, hold metformin and trulicity HLD: Continue statin Borderline personality disorder, Depression with prior suicide attempt: Continue Wellbutrin and ariprazole ?? Quality Measures DVT PPx- Lovenox Diet- Cardiac with carb restriction Code- FULL ?? Chandan Ellison MD PGY4, [id number] 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 The patient seen and examined on this date. The case reviewed in detail with admitting fellow onthis date. I reviewed and agree as above. Dvt, mod risk. Tawanna Noriega MD Histories Allergies Allergies ?(Active and Proposed Allergies Only) codeine? (Severity: Unknown severity, Onset: Unknown) ?Reactions: loopy ?? 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 Past Surgical History ETT 2012 head-up tilt table test , 2010 vasectomy anal fissure repair cardiac catheterization ?? Social History Alcohol Details:??Use: Past. ??Type: Beer. ??Binge drinking: No. ??Alcohol use interferes with work or home: No. ??Drinks more than intended: No. ??Others hurt by drinking: No. 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 ??Activity level: Heavy physical work. ??Workplace hazards: Hazardous equipment, Hazardous materials, Heavy lifting/twisting, Loud noises, Medical/Clinical work, Repetitive motion, Shift/Night work. Exercise Details:??Self assessment: Fair condition. ??Regular exercise: No. Home/Environment Details:??Living situation: Home/Independent. ??Lives with: Children, Spouse. ??Other: Has 4 children, 2 at home. ??Domestic violence in household: No. Nutrition/Health Details:??Diet: Regular. ??Caffeine intake amount: None. Substance Abuse Details:??Use: Never. ??Substance abuse in household: No. ??IV drug use: No. Tobacco Details:??Use: Never smoker. ?? Family History Father: Hyperlipidemia; Hypertension Other: Diabetes mellitus type II Mat. Grandfather: Diabetes mellitus type I Brother: Hyperlipidemia; Hypertension Brother: Hyperlipidemia; Hypertension Brother: Hyperlipidemia; Hypertension Medications Home Medications Aripiprazole (ARIPiprazole 2 mg oral tablet)?2?Milligram?1?tablet?By Mouth?Daily Atorvastatin (Lipitor 80 mg oral tablet)?1?tab(s)?80?Milligram?By Mouth?Daily BuPROpion (buPROPion 300 mg/24 hours (XL) oral tablet, extended release)?1?tab(s)?300?Milligram?By Mouth?Daily dulaglutide (Trulicity Pen 1.5 mg/0.5 mL subcutaneous solution)?1.5?Milligram?SubcutaneousInfusion?Every week Metformin (MetFORMIN (Eqv-Glucophage XR) 500 mg oral tablet, extended release)?2?tab(s)?ByMouth?2 times a day sitagliptin (Januvia 50 mg oral tablet)?1?tab(s)?By Mouth?Daily Valsartan (valsartan 160 mg oral tablet)?160?Milligram?1?tablet?By Mouth?Daily Results Recent Labs BLOOD BANK Blood Type A Negative ()?? 08/27/2022 09:26 Antibody Screen Negative ()?? 08/27/2022 09:26 ?? BLOOD COUNT & DIFF WBC 6.6 k/mm3 ()?? 08/27/2022 10:16 RBC 5.23 m/mm3 ()?? 08/27/2022 10:16 Hgb 14.8 Gm/dL ()?? 08/27/2022 10:16 Hct 47.0 % ()?? 08/27/2022 10:16 MCV 89.9 femtoliters ()?? 08/27/2022 10:16 MCH 28.3 pg ()?? 08/27/2022 10:16 MCHC 31.5 g/dL (Low)?? 08/27/2022 10:16 Platelet Count 197 k/mm3 ()?? 08/27/2022 10:16 RDW-SD 46.2 femtoliters ()?? 08/27/2022 10:16 MPV 10.1 femtoliters ()?? 08/27/2022 10:16 Nucleated RBC (Automated) 0.0 #/100 WBC'S ()?? 08/27/2022 10:16 Abs. NRBC 0.0 k/mm3 ()?? 08/27/2022 10:16 Abs. Neut 4.6 k/mm3 ()?? 08/27/2022 10:16 Abs. Lymph 1.2 k/mm3 ()?? 08/27/2022 10:16 Abs. Mchenry 0.6 k/mm3 ()?? 08/27/2022 10:16 Abs. Eo 0.2 k/mm3 ()?? 08/27/2022 10:16 Abs. Baso 0.0 k/mm3 ()?? 08/27/2022 10:16 Neut % 69.9 % ()?? 08/27/2022 10:16 Lymph % 17.5 % ()?? 08/27/2022 10:16 Mchenry % 9.2 % ()?? 08/27/2022 10:16 Eos % 2.3 % ()?? 08/27/2022 10:16 Baso % 0.5 % ()?? 08/27/2022 10:16 Imm Gran 0.6 % ()?? 08/27/2022 10:16 Abs. Imm Gran 0.0 k/mm3 ()?? 08/27/2022 10:16 ?? CARDIAC High Sensitivity Troponin (HSTnT) 21 ng/L ()?? 08/27/2022 13:07 ?? CHEM GENERAL Sodium 141 mmol/L ()?? 08/27/2022 10:16 Potassium 4.2 mmol/L ()?? 08/27/2022 10:16 Chloride 103 mmol/L ()?? 08/27/2022 10:16 Bicarbonate Level 27 mmol/L ()?? 08/27/2022 10:16 Anion Gap 11 ()?? 08/27/2022 10:16 Glucose Level 168 mg/dL (High)?? 08/27/2022 10:16 BUN 22 mg/dL (High)?? 08/27/2022 10:16 Creatinine-Blood 1.1 mg/dL ()?? 08/27/2022 10:16 Estimated GFR Creatinine 83 ML/MIN/1.73 M2 ()?? 08/27/2022 10:16 Calcium 9.8 mg/dL ()?? 08/27/2022 10:16 AST (SGOT) 16 units/L ()?? 08/27/2022 10:16 ?? COAG INR 1.0 ()?? 08/27/2022 10:16 Protime (PT) 10.3 seconds ()?? 08/27/2022 10:16 APTT 23.4 seconds ()?? 08/27/2022 10:16 ?? VIROLOGY Influenza A PCR NEGATIVE ()?? 08/27/2022 10:21 Influenza B PCR NEGATIVE ()?? 08/27/2022 10:21 RSV PCR NEGATIVE ()?? 08/27/2022 10:21 COVID-19 PCR Specimen Source NASAL ()?? 08/27/2022 10:21 COVID-19 PCR Result NEGATIVE ()?? 08/27/2022 10:21 ? Microbiology ?? COVID-19, RSV, and Flu A/B, Rapid PCR?? Completed?? Source: Nasal Body Site: Nasopharyngeal Collected Dt/Tm: 08/27/2022 09:31 Last Updated Dt/Tm: 08/27/2022 13:00 ? Hospital Progress note * Aquilino Chatman MD: MODIFY Aquilino Chatman MD: MODIFY, PERFORM Hedy DO, Raul M: PERFORM, MODIFY Hedy DO, Raul Zavala: MODIFY, MODIFY Hedy DO, Raul Zavala: MODIFY, MODIFY Hedy DO, Raul Zavala: MODIFY, MODIFY Hedy DO, Raul Zavala: MODIFY, MODIFY Hedy DO, Raul Zavala: MODIFY Event Display: Progress Note Hospital Authored Date: Patient: ??BELLE PIERRE ? Age:??56 Years?Sex:??Male?:??1965?? Subjective No acute events??overnight noted Patient seen examined at bedside in the morning. Patient still complains of??dizziness.?? On physical exam it seems that the??dizziness/sensation ofroom spinning is positional. Patient at this time denies??nausea, vomiting, fever, chills, chest pain, shortness of breath, and abdominal pain. Review of Systems Additional review of systems information:??All other systems reviewed and otherwise negative as mentioned above. Allergies Allergies ?(Active and Proposed Allergies Only) codeine? (Severity: Unknown severity, Onset: Unknown) ?Reactions: loopy ? Objective Vital Signs?? Temperature: 97.9 DegF (08/28/22 14:54:00) Temperature Route: Oral (08/28/22 14:54:00) Pulse Rate: 82 bpm (08/28/22 14:54:00) Respiratory Rate: 18 br/min (08/28/22 14:54:00) Systolic Blood Pressure:??163 mm Hg??High (08/28/22 14:54:00) Diastolic Blood Pressure:??94 mm Hg??High (08/28/22 14:54:00) Blood pressure sites: Arm, left (08/28/22 14:54:00) Mean Arterial Pressure: 117 mm Hg (08/28/22 14:54:00) Pulse Pressure: 69 mm Hg (08/28/22 14:54:00) Oxygen Saturation: 99 % (08/28/22 14:54:00) Mode of Delivery (Oxygen): Room air (08/28/22 14:54:00) Early Warning Score: 2 (08/28/22 14:54:56) ? Physical Exam Constitutional: Alert, in no distress. Mental Status: Oriented to person, place and time. Head: Normocephalic. Eyes: Pupils are equal, round and reactive to light. Extraocular muscles intact. Ear, Nose and Throat: Oropharynx clear, mucous membranes moist. Ears and nose without masses, lesions or deformities. Trachea midline. Neck: Supple, Full range of motion. Respiratory: Clear to auscultation. No wheezing, rales or rhonchi. Cardiovascular: S1 S2 normal??regular rate and rhythm. No murmurs, rubs or gallops. No peripheral edema. Gastrointestinal: Abdomen soft, non-tender, non-distended. Normal bowel sounds. No pulsatile mass. No hepatosplenomegaly. Genitourinary: No costovertebral angle tenderness. Neurologic: Cranial nerves II-XII grossly intact. No focal neurological deficits. Moves all extremities spontaneously. Sensation intact bilaterally. Sensation of room spinning seems to be positional with more dizziness when turning his head to the left. Skin: No rashes or lesions. No petechiae or purpura.?? Musculoskeletal: No cyanosis or clubbing. No gross deformities. Normal range of motion. Psychiatric: Normal mood and affect _ Inpatient Medications Medications (15) Active SCHEDULED: (7) Aripiprazole 2 mg Tablet (ARIPiprazole 2 mg oral tablet) ??2 mg, By Mouth, Daily Atorvastatin 80 mg Tablet (Lipitor 80 mg oral tablet) ??80 mg, By Mouth, Daily BuPROPion XL 150 mg Tablet (BuPROpion XL Tablet) ??450 mg, By Mouth, Daily Enoxaparin 40 mg Inj (Enoxaparin Inj) ??40 mg 0.4 mL, Subcutaneous Injection, Daily Insulin Lispro 100 units/mL Inj (3mL) (Insulin LISPRO Scale) ??2-8 units, Subcutaneous Injection, 3times a day before meals NaCl 0.9% Flush 3ml (NaCL 0.9% Flush) ??3 mL, IV Push, Every 8 hours Valsartan 160 mg Tablet (valsartan 160 mg oral tablet) ??160 mg, By Mouth, Daily CONTINUOUS: (0) PRN: (8) Dextrose Inj Syringe (Dextrose 50% Inj Syringe (25Gm)) ??12.5 Gm, IV Push Slowly, Every 20 minutes Dextrose Inj Syringe (Dextrose 50% Inj Syringe (25Gm)) ??25 Gm, IV Push Slowly, Every 15 minutes Glucagon 1 mg Inj (Glucagon Inj) ??1 mg, Intramuscular, Once Glucose 40% Gel (15 Gm) (Glucose Gel) ??15 Gm, By Mouth, Every 20 minutes Glucose 40% Gel (15 Gm) (Glucose Gel) ??30 Gm, By Mouth, Every 20 minutes Meclizine 12.5 mg Tablet (meclizine 12.5 mg oral tablet) ??25 mg, By Mouth, 3 times a day NaCl 0.9% Flush 3ml (NaCL 0.9% Flush) ??3 mL, IV Push, Every 8 hours PROCHLORperazine 5mg/ml Inj (Compazine Inj) ??5 mg 1 mL, IV Push, Every 6 hours ? Results Recent Labs BLOOD BANK Blood Type A Negative ()?? 08/27/2022 09:26 Antibody Screen Negative ()?? 08/27/2022 09:26 ?? BLOOD COUNT & DIFF WBC 6.2 k/mm3 ()?? 08/28/2022 02:15 RBC 4.93 m/mm3 ()?? 08/28/2022 02:15 Hgb 14.2 Gm/dL ()?? 08/28/2022 02:15 Hct 44.4 % ()?? 08/28/2022 02:15 MCV 90.1 femtoliters ()?? 08/28/2022 02:15 MCH 28.8 pg ()?? 08/28/2022 02:15 MCHC 32.0 g/dL (Low)?? 08/28/2022 02:15 Platelet Count 179 k/mm3 ()?? 08/28/2022 02:15 RDW-SD 45.7 femtoliters ()?? 08/28/2022 02:15 MPV 9.9 femtoliters ()?? 08/28/2022 02:15 Nucleated RBC (Automated) 0.0 #/100 WBC'S ()?? 08/28/2022 02:15 Abs. NRBC 0.0 k/mm3 ()?? 08/28/2022 02:15 Abs. Neut 4.6 k/mm3 ()?? 08/27/2022 10:16 Abs. Lymph 1.2 k/mm3 ()?? 08/27/2022 10:16 Abs. Mchenry 0.6 k/mm3 ()?? 08/27/2022 10:16 Abs. Eo 0.2 k/mm3 ()?? 08/27/2022 10:16 Abs. Baso 0.0 k/mm3 ()?? 08/27/2022 10:16 Neut % 69.9 % ()?? 08/27/2022 10:16 Lymph % 17.5 % ()?? 08/27/2022 10:16 Mchenry % 9.2 % ()?? 08/27/2022 10:16 Eos % 2.3 % ()?? 08/27/2022 10:16 Baso % 0.5 % ()?? 08/27/2022 10:16 Imm Gran 0.6 % ()?? 08/27/2022 10:16 Abs. Imm Gran 0.0 k/mm3 ()?? 08/27/2022 10:16 ?? CARDIAC High Sensitivity Troponin (HSTnT) 21 ng/L ()?? 08/27/2022 13:07 ?? CHEM GENERAL Sodium 144 mmol/L ()?? 08/28/2022 02:15 Potassium 4.3 mmol/L ()?? 08/28/2022 02:15 Chloride 111 mmol/L (High)?? 08/28/2022 02:15 Bicarbonate Level 23 mmol/L ()?? 08/28/2022 02:15 Anion Gap 10 ()?? 08/28/2022 02:15 Glucose Level 168 mg/dL (High)?? 08/27/2022 10:16 Glucose, POC 223 mg/dL (High)?? 08/28/2022 12:00 BUN 24 mg/dL (High)?? 08/28/2022 02:15 Creatinine-Blood 1.0 mg/dL ()?? 08/28/2022 02:15 Estimated GFR Creatinine 84 ML/MIN/1.73 M2 ()?? 08/28/2022 02:15 Calcium 9.8 mg/dL ()?? 08/27/2022 10:16 AST (SGOT) 16 units/L ()?? 08/27/2022 10:16 ?? COAG INR 1.0 ()?? 08/27/2022 10:16 Protime (PT) 10.3 seconds ()?? 08/27/2022 10:16 APTT 23.4 seconds ()?? 08/27/2022 10:16 ?? VIROLOGY Influenza A PCR NEGATIVE ()?? 08/27/2022 10:21 Influenza B PCR NEGATIVE ()?? 08/27/2022 10:21 RSV PCR NEGATIVE ()?? 08/27/2022 10:21 COVID-19 PCR Specimen Source NASAL ()?? 08/27/2022 10:21 COVID-19 PCR Result NEGATIVE ()?? 08/27/2022 10:21 ? Microbiology ?? COVID-19, RSV, and Flu A/B, Rapid PCR?? Completed?? Source: Nasal Body Site: Nasopharyngeal Collected Dt/Tm: 08/27/2022 09:31 Last Updated Dt/Tm: 08/27/2022 13:00 ? Assessment/Plan 56-year-old male with history of HTN, HLD, DM, osteomyelitis depression, anxiety, borderline personality disorder, history of suicide attempt who presents with dizziness and is admitted for presumed??vertigo. ?? Vertigo Reports room spinning sensation, worse with movement of head, associated with nausea, vomiting, andstumbling Reports feeling the same in September when diagnosed with vertigo after concussing his head, improving after 4 weeks of vestibular therapy Presentation consistent with BPPV CTH and CTA H/N non-acute ?? Plan: -OT/PT eval for vestibular therapy -Discharge tomorrow with script for outpatient vestibular therapy -Meclizine PRN for severe dizziness -Compazine PRN for nausea (patient has prior prolonged QTc) - will obtain MRI brain without contrast, consider neuro consult??depending on results of MRI ?? HTN: Continue valsartan with holding parameters Diabetes: ISS, POC qac/qhs, hold metformin and Trulicity HLD: Continue statin Borderline personality disorder, Depression with prior suicide attempt: Continue Wellbutrin and aripiprazole ?? Quality Measures DVT PPx- Lovenox Diet- Cardiac with carb restriction Code- FULL ? Pt discussed with Attending Dr. Chatman ? Raul Knott,??DO PGY-1 Internal Medicine Pager [phone]/ cortext? Attending Attestation (Aquilino Chatman MD):??I have seen and evaluated this patient. ??I have discussed the case and its management with the resident and agree with the findings and plan as documentedin the resident???s note. ?? Note * Nancy Chua RN: PERFORM Event Display: Discharge/Transfer Note Hospital Authored Date: Nursing Discharge Note Entered On: 08/29/2022 12:58 EST Performed On: 08/29/2022 12:55 EST by Nancy Chua RN Nursing Discharge Note 2 Discharge Time : 08/29/2022 12:55 EST Discharge Level of Care at Discharge : Home/Usp/Foster Care Patient Left Unit Via : Wheelchair Patient Accompanied Off Unit with : Responsible adult DC Instructions Provided & Signed by Pt : Yes Patient Understands D/C Instructions : Yes Verbalized Understanding of D/C Plan By : Patient Patient Instructions Discharge Signed : Yes Discharge Comments : MD Knott aware of elevated troponin level. Level redrawn and aware of new level. OK to discharge to home Did Pt have Specialty Bed or Wound Vac : No Nancy Chua RN - 08/29/2022 12:55 EST * Lurdes JAY, Aquilino: PERFORM, MODIFY Event Display: Discharge/Transfer Note Hospital Authored Date: [id number] Patient: ??IGNACIO, BELLE ? Age:??56 Years?Sex:??Male?:??1965?? Patient Information Discharge Location: B Primary Care Physician: Raysa JAY, Manpreet Garcia Admit Date/Time: 08/27/22 08:59 Discharge Disposition Discharge Disposition: ?? Discharge Diagnosis ?? Vertigo (R42) ?? _ Discharge Medications Aripiprazole (ARIPiprazole 2 mg oral tablet)?2?Milligram?1?tablet?By Mouth?Daily Atorvastatin (Lipitor 80 mg oral tablet)?1?tab(s)?80?Milligram?By Mouth?Daily BuPROpion (buPROPion 300 mg/24 hours (XL) oral tablet, extended release)?1?tab(s)?300?Milligram?By Mouth?Daily dulaglutide (Trulicity Pen 1.5 mg/0.5 mL subcutaneous solution)?1.5?Milligram?SubcutaneousInfusion?Every week Meclizine (meclizine 25 mg oral tablet)?1?tab(s)?25?Milligram?By Mouth?3 times a day?as needed?for dizziness Metformin (MetFORMIN (Eqv-Glucophage XR) 500 mg oral tablet, extended release)?2?tab(s)?ByMouth?2 times a day Miscellaneous Rx (PT eval and treat for vestibular rehab)?See Instructions?PT eval and treat for vestibular rehab Miscellaneous Rx (Walker with wheels)?See Instructions?Walker with wheels sitagliptin (Januvia 50 mg oral tablet)?1?tab(s)?By Mouth?Daily Valsartan (valsartan 160 mg oral tablet)?160?Milligram?1?tablet?By Mouth?Daily ? Medications Started meclizine Medications Discontinued none Doses Changed none Allergies Allergies ?(Active and Proposed Allergies Only) codeine? (Severity: Unknown severity, Onset: Unknown) ?Reactions: loopy ? PCP Follow-Up/Heads-Up BP Hospital Course 56-year-old male with history of HTN, HLD, DM, osteomyelitis depression, anxiety, borderline personality disorder, history of suicide attempt who presented with vertigo ?? Vertigo Reports room spinning sensation, worse with movement of head, associated with nausea, vomiting, andstumbling Reports feeling the same in September when diagnosed with vertigo after concussing his head, improving after 4 weeks of vestibular therapy Presentation consistent with BPPV CTH and CTA H/N non-acute MRI done much better Out pt vestibular rehab and ENT eval was advsied PRN meclizine no driving if symptoms--pt was advised episodes of CP--EKG with LBBB-trop no acute recent cath --minimal CAD--. PE and aortic dissection unlikely. likely related to BP--PCP f/u ?? Today feels much better ??Having stable vitals. CTA BL, S1, S2 no GMR.Abd SOft, NT, BS+ve, AAO3. no pedal edema/focal deficit ?? Objective . Physical Exam Pending Results COVID-19 (2019 Novel Coronavirus) PCR ordered on 08/29/2022 High??Sensitivity??Troponin T ordered on 08/29/2022 Patient Education Titles Controlling High Blood Pressure?? What Is High Blood Pressure??? Taking Your Blood Pressure?? Checking Your Blood Pressure?? Taking Amlodipine?? Amlodipine Oral Tablet?? Understanding Dizziness, Balance Problems, and Fainting?? Dizziness (Vertigo) and Balance Problems: Staying Safe?? Meclizine Oral Tablet?? Managing Dizziness (Vertigo) with Medicines?? Follow-Up Appointments Added Follow Up ?Time Frame ?Comments Manpreet Tabares?1 to 2 weeks?for the follow upreferral to ENTBP check as you have been started on noravsc Please dont drive if having symptoms Please mantain adequate hydration and change position slowly Post Discharge Care Discharge ?Once results of MRI are back and shows no acute finding, ??08/29/22 6:48:00 EST Discharge Prescriptions ?Written, ??08/29/22 6:48:00 [facility] Home Health Face to Face ^HomeHealthFTF 25??minutes spent on discharge * Nancy Chua RN: PERFORM Event Display: Patient Education/Instruction Authored Date: [id number] Inpatient Adult Discharge Instructions [address] [address] Name: BELLE PIERRE : 1965 Visit: 08/27/2022 08:59:00 Current Date: 08/29/2022 12:27 Account: [id number] Inpatient Adult Discharge Instructions We would like to thank you for allowing us to assist you with your healthcare needs. The following includes patient education materials and information regarding your injury/illness. Our entire staffstrives to provide an excellent experience for our patients and their families. PLEASE ENSURE YOU FOLLOW-UP PER THE INSTRUCTIONS BELOW! ?? YOUR OPINION IS IMPORTANT TO US! Please complete the survey you may receive by mail or email. Your feedback will be used to make improvements to the healthcare experiences of our patients and their families. Surveys are administered by [employer] ?? If further treatment with your primary care physician or another doctor is recommended, it is important for you to keep the appointment. Call your primary care physician or return to the Emergency Department immediately if your condition worsens, fails to improve, or new symptoms develop. If you need to find a doctor, you can call [facility] [employer] [facility] for a referral at [phone] or toll free at [phone] or log in to [email or web address].. ?? You can view and manage your care through the patient portal or by using a health care yudy of your choosing. [employer] is a website that allows you to securely view your medical information including your hospital discharge summary, office visit summaries, medications and follow-up visits. You can also request appointments, renew medications, and request access to your medical information using a health care yudy of your choosing, or just ask a question. You can enroll at [email or web address] or register during your next office visit. You have been discharged from [facility], Patient Care Unit: S3. If you have any questions regarding these instructions after you leave, please call us and we will be happy to assist you. [facility] Your Care Team Attending Physician Aquilino Chatman MD Discharging Providers Aquilino Chatman MD Reason for Admission EMS reports that pt was dizzy at work c CP x 1 week. Pt stumbled at work in from of boss. Your Diagnosis Vertigo Headache Tests Performed Below is a partial list of the tests performed during your hospitalization. You may have had other tests and procedures not included in this list. Please discuss all test results with your provider. AST Basic Metabolic Panel BUN CBC CBC w/ Differential COVID-19, RSV, and Flu A/B, Rapid PCR Creatinine GLUCOSE POC High??Sensitivity??Troponin T Lytes PT (INR) PTT Troponin T, High Sensitivity Type and Screen Urinalysis w/hold for Urine Culture CT Angio Head CT Angio Neck CT Head/Brain W/O Contrast CXR Portable MRI Brain W/O Contrast Primary Care Provider Manpreet Tabares MD Advance Directive Health Care Proxy on File Yes - Health Care Proxy Discharge Vitals Temperature: 98.1 DegF Height: 173 cm Pulse Rate: 88 bpm Weight: 84 kg Respiratory Rate: 18 br/min Body Mass Index:??28.07 kg/m2??High Systolic Blood Pressure:??164 mm Hg??High Body surface area: 2.01 Diastolic Blood Pressure:??97 mm Hg??High ?? Oxygen Saturation: 98 % ?? Studies Pending All tests and labs ordered during this hospital stay have been completed unless listed below. Please discuss all pending results with your provider listed above in these instructions. ?? COVID-19 (2019 Novel Coronavirus) PCR What to do next Instructions From Your Doctor Discharge Orders You Need to Schedule the Following Appointments Follow Up with??Manpreet Tabares When??Within 1 to 2 weeks Why: for the follow up referral to ENT BP check as you have been started on noravsc Where: [address] [place] [address]- Business (1) Follow Up with??Please dont drive if having symptoms When?? Follow Up with??Please mantain adequate hydration and change position slowly When?? Discharge Medications BELLE PIERRE :1965 Visit Date:08/27/2022 Medications: Please continue your medications until treatment is completed or stopped by your provider. Medications not listed below should be discontinued. Discuss any questions related to medications with your provider. What How Much When Instructions Next Dose New Amlodipine (Norvasc 5 mg oral tablet) 1 tab(s) Oral Daily Refills: 1 Printed Prescription as prescribed New Meclizine (meclizine 25 mg oral tablet) 1 tab(s) Oral 3 times a day as needed for for dizziness Printed Prescription as prescribed New Miscellaneous Rx (PT eval and treat for vestibular rehab) See instructions PT eval and treat for vestibular rehab ?? Printed Prescription New Miscellaneous Rx (Walker with wheels) See instructions Walker with wheels ?? Unchanged Aripiprazole (ARIPiprazole 2 mg oral tablet) 1 tab(s) Oral Daily 08/30?? AM Unchanged Atorvastatin (Lipitor 80 mg oral tablet) 1 tab(s) Oral Daily 08/30?? AM Unchanged BuPROpion (buPROPion 300 mg/ 24 hours (XL) oral tablet, extended release) 1 tab(s) Oral Daily 08/30?? AM Unchanged dulaglutide (Trulicity Pen 1.5 mg/ 0.5 mL subcutaneous solution) 1.5 Milligram Subcutaneous Infusion Every week as prescribed Unchanged Metformin (MetFORMIN (Eqv-Glucophage XR) 500 mg oral tablet, extended release) 2 tab(s) Oral Twice a day as prescribed Unchanged sitagliptin (Januvia 50 mg oral tablet) 1 tab(s) Oral Daily as prescribed Unchanged Valsartan (valsartan 160 mg oral tablet) 1 tab(s) Oral Daily 08/30?? AM Test Results Below is a partial list of the most recent Laboratory test results done prior to this discharge. You may have had other tests and procedures not included in this list. Please discuss all test resultswith your provider. AST (08/27/2022) ???AST (SGOT) - 16 units/L Basic Metabolic Panel (08/27/2022) ???Sodium - 141 mmol/L???Potassium - 4.2 mmol/L???Chloride - 103 mmol/L???Bicarbonate Level - 27 mmol/L???Anion Gap - 11???Glucose Level - 168 mg/dL???BUN - 22 mg/dL???Creatinine-Blood - 1.1 mg/dL???Estimated GFR Creatinine - 83 ML/MIN/1.73 M2???Calcium - 9.8 mg/dL BUN (08/28/2022) ???BUN - 24 mg/dL CBC (08/28/2022) ???WBC - 6.2 k/mm3???RBC - 4.93 m/mm3???Hgb - 14.2 Gm/dL???Hct - 44.4 %???MCV - 90.1 femtoliters???MCH - 28.8 pg???MCHC - 32.0 g/dL???Platelet Count - 179 k/mm3???RDW-SD - 45.7 femtoliters???MPV - 9.9 femtoliters???Nucleated RBC (Automated) - 0.0 #/100 WBC'S???Abs. NRBC - 0.0 k/mm3 CBC w/ Differential (08/27/2022) ???WBC - 6.6 k/mm3???RBC - 5.23 m/mm3???Hgb - 14.8 Gm/dL???Hct - 47.0 %???MCV - 89.9 femtoliters???MCH - 28.3 pg???MCHC - 31.5 g/dL???Platelet Count - 197 k/mm3???RDW-SD - 46.2 femtoliters???MPV - 10.1 femtoliters???Nucleated RBC (Automated) - 0.0 #/100 WBC'S???Abs. NRBC - 0.0 k/mm3???Abs. Neut - 4.6 k/mm3???Abs. Lymph - 1.2 k/mm3???Abs. Mchenry - 0.6 k/mm3???Abs. Eo - 0.2 k/mm3???Abs. Baso - 0.0 k/mm3???Neut % - 69.9 %???Lymph % - 17.5 %???Mchenry % - 9.2 %???Eos % - 2.3 %???Baso % - 0.5 %???Imm Gran - 0.6 %???Abs. Imm Gran - 0.0 k/mm3 COVID-19, RSV, and Flu A/B, Rapid PCR (08/27/2022) ???Influenza A PCR - NEGATIVE???Influenza B PCR - NEGATIVE???RSV PCR - NEGATIVE???COVID-19 PCR Specimen Source - NASAL???COVID-19 PCR Result - NEGATIVE Creatinine (08/28/2022) ???Creatinine-Blood - 1.0 mg/dL???Estimated GFR Creatinine - 84 ML/MIN/1.73 M2 GLUCOSE POC (08/29/2022) ???Glucose, POC - 217 mg/dL High??Sensitivity??Troponin T (08/29/2022) ???High Sensitivity Troponin (HSTnT) - 26 ng/L Lytes (08/28/2022) ???Sodium - 144 mmol/L???Potassium - 4.3 mmol/L???Chloride - 111 mmol/L???Bicarbonate Level - 23 mmol/L???Anion Gap - 10 PT (INR) (08/27/2022) ???INR - 1.0???Protime (PT) - 10.3 seconds PTT (08/27/2022) ???APTT - 23.4 seconds Troponin T, High Sensitivity (08/29/2022) ???High Sensitivity Troponin (HSTnT) - 28 ng/L Type and Screen (08/27/2022) ???Blood Type - A Negative???Antibody Screen - Negative Urinalysis w/hold for Urine Culture (08/28/2022) ???Appear/Color, Urine - LIGHT YELLOW???Specific Gates, Urine - 1.015???pH, Urine - 5.5???Albumin, Urine - NEGATIVE???Glucose, Urine - TRACE???Ketones, Urine - NEGATIVE???Bilirubin, Urine - NEGATIVE???Hemoglobin, Urine - NEGATIVE???Nitrite, Urine - NEGATIVE???Leukocyte, Urine - NEGATIVE???Urobilin ogen - NORMAL???WBC's, Urine - 1 /HPF???RBC's, Urine - 1 /HPF???Hold Urine Culture - Testing available 48 hours from time of collection. Allergies (NKA means No Known Allergies) codeine??(loopy) Problems Active Problems??(15) Benign hypertension?? Borderline personality disorder?? 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 Degenerative joint disease - cervical spine?? Diabetes mellitus type 2, uncontrolled?? Erectile dysfunction?? exercise induced LBBB on ECG?? Hypercholesterolemia?? Ineffective self health management?? Insulin long-term use?? Insulin long-term use?? Major depressive disorder, recurrent?? Rash?? Right flank pain?? Uncontrolled type 2 diabetes mellitus?? Education Materials Below is the list of Educational Leaflet Providered with your Discharge Instructions. Controlling High Blood Pressure?? What Is High Blood Pressure??? Taking Your Blood Pressure?? Checking Your Blood Pressure?? Taking Amlodipine?? Amlodipine Oral Tablet?? Understanding Dizziness, Balance Problems, and Fainting?? Dizziness (Vertigo) and Balance Problems: Staying Safe?? Meclizine Oral Tablet?? Managing Dizziness (Vertigo) with Medicines?? Valuables and Belongings I fully understand and agree that [facility] accepts no responsibility for all my personal property including clothing, toilet articles, radios, jewelry, dentures, hearing aids, rings, money, or any other property that is in my possession or is brought to me after admission. I understand certain valuables may be placed in a hospital safe for a short period of time. I understand that the hospital is not liable for loss or damage due to accident, fire, or other natural occurrence while said property is in the safe. I accept full responsibility for any personal property that I keep with me, and will not hold the hospital responsible in case of loss or disappearance. I acknowledge that i have been encouraged to send valuables and belongings home. ?? Review of Valuable and Belonging List: With patient Date for Pt to Sign Valuables/Belongings: 08/29/22 09:16:00 ?? Other Discharge Information ? Pulmonary Rehab Status?? Pulmonary Rehab Discharge Status?? Respiratory Rate: 18 br/min ? Common Emergency Awareness Tips IS IT A STROKE? Act FAST and Check for these signs: FACE Does the face look uneven? ARM Does one arm drift down? SPEECH Does their speech sound strange? TIME Call at any sign of stroke ?? Heart Attack Signs Chest discomfort: Most heart attacks involve discomfort in the center of the chest and lasts more than a few minutes, or goes away and comes back. It can feel like uncomfortable pressure, squeezing, fullness or pain. Discomfort in upper body: Symptoms can include pain or discomfort in one or both arms, back, neck, jaw or stomach. Shortness of breath: With or without discomfort. Other signs: Breaking out in a cold sweat, nausea, or lightheaded. Remember, MINUTES DO MATTER. If you experience any of these heart attack warning signs, call to get immediate medical attention! ?? Smoking can increase your chances of developing chronic health problems and can cause harmful effects to other family members in your house. If you smoke, you are strongly encouraged to quit. Please call [facility] [employer] [facility] at [phone] or 2-948-[facility] [facility] (0007) or log in to [email or web address] for referrals to smoking cessation programs. ?? The National Suicide Prevention Hotline is available 03/02 if you or someone you know needs to find a reason to keep living. By calling 6-716-731-[facility] [place] (6537) you'll be connected to a skilled, trained counselor at a crisis center in your area. INPATIENT DISCHARGE INSTRUCTIONS SIGNATURE PAGE BELLE PIERRE Location:[facility] Registration Date and Time:08/27/2022 08:59 EST Primary Care Physician: Raysa JAY, Manpreet Garcia, I BELLE PIERRE, have received the above patient education materials/instructions and have verbalized understanding. If ambulance or transport services are being used I further acknowledge being given a choice of service. ?? If you need to contact me, please call me at this number: . Patient/Van Owner Operator Name: Patient/Van Owner Operator Signature: Relationship to Patient: Witness Name/Signature: Date: * Aquilino Chatman MD: SIGN, SIGN, PERFORM, SIGN, VERIFY Event Display: Patient Education Handout Authored Date: [id number] * Aquilino Chatman MD: PERFORM Event Display: Patient Education Leaflets Authored Date: [id number] Controlling High Blood Pressure ?? 67633 Controlling High Blood Pressure High blood pressure (hypertension) is often called the silent killer. This is because many people who have it, don???t know it. It can be very dangerous. High blood pressure can raise your risk of heart attack, stroke, heart disease, and heart failure. Controlling your blood pressure can lower yourrisk of these problems. It's important to check your blood pressure regularly. It can save your life. Blood pressure measurements are given as 2 numbers. Systolic blood pressure is the upper number. This is the pressure when the heart contracts. Diastolic blood pressure is the lower number. This is the pressure when the heart relaxes between beats. Blood pressure is grouped like this: ??? Normal blood pressure. This is systolic of less than 120 and diastolic of less than 80 (120/80). ??? Elevated blood pressure. This is systolic of 120 to 129 and diastolic less than 80. ??? Stage 1 high blood pressure. This is systolic of 130 to 139 or diastolic between 80 to 89. ??? Stage 2 high blood pressure. This is systolic of 140 or higher or diastolic of 90 or higher. A heart-healthy lifestyle can help you control your blood pressure without medicines. Below are some things you can do to have a heart-healthy lifestyle. Eat heart-healthy foods ??? Choose low-salt, low-fat foods. Limit your sodium to 2,300 mg per day or the amount advised by your healthcare provider. ??? Limit canned, dried, cured, packaged, and fastfoods. These can contain a lot of salt. ??? Eat 8 to 10 servings of fruits and vegetables every day. ??? Choose lean meats, fish, or chicken. ??? Eat whole-grain pasta, brown rice, and beans. ??? Eat2 to 3 servings of low-fat or fat-free dairy products. ??? Ask your doctor about the DASH eating plan. This plan helps reduce blood pressure. ??? When you go to a restaurant, ask that your meal be made with no added salt. ?? Stay at a healthy weight ??? Ask your healthcare provider how many calories to eat a day. Then stick to that number. ??? Ask your provider what weight range is healthiest for you. If you are overweight, a weight loss of only 3% to 5% of your body weight??can help lower blood pressure. A good weightloss goal is to lose 10% of your body weight in a year. ??? Limit snacks and sweets. ??? Get regular exercise. ?? Get more active ??? Find activities you enjoy. They can be done alone or with friends or family. Try bicycling, dancing, walking, or jogging. ??? Park farther away from building entrances to walk more. ??? Use stairs instead of the elevator. ??? When you can, walk or bike instead of driving. ??? [place] leaves, garden, or do household repairs. ??? Be active at a moderate to vigorous level of physical activity for at least 30 minutes a day for at least 5 days a week.? Manage stress ??? Make time to relax and enjoy life. Find time to laugh. ??? Talk about your concerns with your loved ones and your healthcare provider. ??? Visit with family and friends, and keep upwith hobbies. ?? Limit alcohol and quit smoking ??? Men should have no more than 2 drinks per day. ??? Women should have no more than 1 drink per day. ??? If you smoke, make a plan to stop. Talk with your healthcare provider for help. Smoking greatly raises your risk for heart disease and stroke. Ask your provider about stop- smoking programs and other support. ?? Blood pressure medicines If your lifestyle changes aren???t enough, your healthcare provider may prescribe high blood pressure medicine. Take all medicines as prescribed. If you have any questions about your medicines, ask your provider before stopping or changing them. ?? How daily issues affect your health Many things in your daily life impact your health. This can include transportation, money problems,housing, access to food, and children's nursery assistant. If you can???t get to medical appointments, you may not receive the care you need. When money is tight, it may be difficult to pay for medicines. And living far from a grocery store can make it hard to buy healthy food. If you have concerns in any of these or other areas, talk with your healthcare team. They may know of local resources to assist you. Or they may have a staff person who can help. ?? Last Reviewed Date: 2021 ?? 2562-1786 [employer]. All rights reserved. This information is not intended as a substitute for professional medical care. Always follow your healthcare professional's instructions. ?? * Aquilino Chatman MD: PERFORM Event Display: Patient Education Leaflets Authored Date: [id number] Taking Your Blood Pressure ?? 96916 Taking Your Blood Pressure Blood pressure is the force of blood against the artery wall as it moves from the heart through theblood vessels. You can take your own blood pressure reading using a digital monitor. Take your readings the same each time, using the same arm. Take readings as often as your healthcare provider advises. About blood pressure monitors Blood pressure monitors are designed for certain ages and cases. You can find monitors for older adults, for women, and for children. Make sure the one you choose is the right one for your age and situation. Experts advise an automatic cuff monitor that fits on your upper arm (bicep). The cuff should fit your arm size. A cuff that???s too large or too small won't give an accurate reading. Measure around your upper arm to find your size. Monitors that attach to your finger or wrist are not as accurate as monitors for your upper arm. Ask your healthcare provider for help in choosing a monitor. Bring your monitor to your next provider visit if you need help in using it the correct way. The steps below are general instructions for using an automatic digital monitor. ?? Step 1. Relax ??? Take your blood pressure at the same time every day, such as in the morning or evening. Or takeit at the time your healthcare provider advises. ??? Wait at least 30 minutes after smoking, eating, or exercising. Don't drink coffee, tea, soda, or other caffeinated drinks before checking your blood pressure. Use the restroom beforehand. ??? Sit comfortably at a table with both feet on the floor. Don't cross your legs or feet. Place the monitor near you. ??? Rest for at least 5 minutes before you begin. Make sure there are no distractions. This includes TV, cell phones, and other electronics. Wait to have conversations with others until after you measure you blood pressure. ?? Step 2. Wrap the cuff ??? Place your arm on the table, palm up. Your arm should be at the level of your heart. Wrap the cuff around your upper arm, just above your elbow. It???s best done on bare skin, not over clothing. Most cuffs will show you where the blood vessel in the middle of the arm at the inner side of the elbow (the brachial artery) should line up with the cuff. Look in your monitor's instruction booklet for an illustration. You can also bring your cuff to your healthcare provider and have them show you how to correctly place the cuff. ?? Step 3. Inflate the cuff ??? Push the button that starts the pump. ??? The cuff will tighten, then loosen. ??? The numbers will change. When they stop changing, your blood pressure reading will appear. ??? Take 2 or 3 readings 1 minute apart, or as advised by your provider. ?? Step 4. Write down the results of each reading ??? Write down your blood pressure numbers for each reading. Note the date and time. Keep your results in 1 place, such as a notebook. Even if your monitor has a built-in memory, keep a hard copy of the readings. ??? Remove the cuff from your arm. Turn off the machine. ??? Bring your blood pressurerecords with you to each provider visit. ??? If you start a new blood pressure medicine, note the da y you started the new medicine. Also note the day if you change the dose of your medicine. Measure your blood pressure before your take your medicine. This information goes on your blood pressure recording sheet. This will help your provider check how well the medicine changes are working. ??? Ask your provider what numbers mean that you should call them. Also ask what numbers mean that you should get help right away. ?? Last Reviewed Date: 2021 ?? [employer]. All rights reserved. This information is not intended as a substitute for professional medical care. Always follow your healthcare professional's instructions. ?? * Aquilino Chatman MD: PERFORM Event Display: Patient Education Leaflets Authored Date: [id number] What Is High Blood Pressure? ?? 06352 What Is High Blood Pressure? High blood pressure (hypertension) is known as the silent killer. This is because most of the time it doesn???t cause symptoms. In fact, many people don???t know they have it until other health problems develop. High blood pressure is diagnosed when blood pressure readings taken at several different times showlevels higher than 130/80 mmHg. Healthy changes can help lower blood pressure. But once you have high blood pressure, you'll need to manage it for the rest of your life. Understanding blood pressure The circulatory system is made up of the heart and blood vessels that carry blood through the body.Your heart is the pump for this system. With each heartbeat (contraction), the heart sends blood out through large blood vessels called arteries. Blood pressure is a measure of how hard the moving blood pushes against the vasquez of the arteries. ?? High blood pressure can harm your health In a healthy artery, the blood moves smoothly and puts normal pressure on its vasquez. High blood pressure results from blood pushing too hard against artery vasquez. This damages the vasquez, which form scar tissue as they heal. The scar tissue makes the arteries stiff and weak. Plaque also sticks to the scar tissue, making arteries narrower and harder.. High blood pressure: ??? Causes your heart to work harder to get blood out to the rest of your body??? Raises your risk for heart attack, heart failure, and stroke ??? Can lead to kidney disease andblindness ?? Measuring blood pressure It's important to know your blood pressure numbers. A blood pressure reading is given as two numbers, such as 120/70. The top number is the pressure of blood against the artery vasquez during a heartbeat (systolic). The bottom number is the pressure of blood against artery vasquez between heartbeats (diastolic). Blood pressure categories are: ??? Normal: lower than 120/lower than 80 mmHg ??? Elevated (prehypertensive): 120-139/80-89 mmHg ??? High, Stage 1: 130-139/80-89 mmHg ??? High, Stage 2: 140/90 mmHg and higher For most people with high blood pressure, keeping readings lower than 130/80 mmHg may help prevent health problems. Talk with your healthcare provider to find out what your blood pressure goals should be.??Bring up any questions or concerns you have about your readings. ?? Controlling blood pressure If your blood pressure is too high, work with your healthcare provider to make a plan for lowering it. They may prescribe medicine to help control your blood pressure if lifestyle changes aren't enough. Below are changes you can make to help lower your blood pressure: ??? Choose heart-healthy foods. Ask your provider about the Dietary Approaches to Stop Hypertension (DASH) eating plan. DASH limits sodium (salt) and offers lots of fruits and vegetables, low-fat or nonfat dairy products, whole grains, and other foods high in fiber and low in fat. This plan also includes an increased amount of potassium, which can help lower blood pressure. ??? Reduce sodium. Eating less sodium reduces fluid retention. Fluid retention caused by too much salt increases blood volume and blood pressure. The [place] [employer] (AHA) says to have no more than 1,500 mg sodium a day. But because Americans eat so much salt, the AHA says cutting back to even 2,300 mg a day offers benefits. ??? Stay at a healthy weight. Being overweight makes you more likely to have high blood pressure. Losing excess weighthelps lower blood pressure. ??? Exercise regularly. Daily exercise helps your heart and blood vessels work better and stay healthier. It can help lower your blood pressure. ??? Do not smoke. Smoking increases blood pressure and damages blood vessels. ??? Limit alcohol. Drinking too much alcohol canraise blood pressure. Men should have no more than 2 drinks a day. Women should have no more than 1a day. A drink is equal to 1 beer, a small glass of wine, or a shot of liquor. ??? Control stress. Stress makes your heart work harder and beat faster. Managing stress in a healthy way helps you control your blood pressure. ?? Facts about high blood pressure ??? Feeling??OK doesn't mean your blood pressure is under control. Likewise, feeling bad doesn???t mean it???s out of control. The only way to know for sure is to check your pressure regularly. ??? Medicine is only one part of controlling high blood pressure. You also need to manage your weight, get regular exercise, and adjust your eating habits. ??? High blood pressure is often a lifelong health problem. But it can be controlled with lifestyle changes and medicine. ??? Hypertension isn't the same as stress. Although stress may be a factor in high blood pressure, it???s only one part of the story. ??? Blood pressure medicines need to be taken every day. Stopping suddenly may cause a dangerous increase in pressure. ?? Last Reviewed Date: 2021 ?? [employer]. All rights reserved. This information is not intended as a substitute for professional medical care. Always follow your healthcare professional's instructions. ?? CT Head WO contrast * [facility] , CIS S: LUCY Lindsey MD, Chad Jett: VERIFY Event Display: Result: Authored Date: [id number] CT Head/Brain W/O Contrast INDICATION: Hx of Present Illness: Pt arrived via EMS from work. Pt reprots weakness dizziness today while at work. My boss saw me stumble into a door. Pt reports CPx 1 week .; Reason: Other:; Neuro deficit, acute, stroke suspected; Clinical Question(s): Other:; Hematoma Infarction TECHNIQUE: Noncontrast head CT using axial technique and reconstructed in axial and coronal planes.Iterative reconstruction techniques are used to optimize dose and image quality. COMPARISON: None. FINDINGS: Sheep Sticker view findings, lines and tubes: None. BRAIN AND EXTRA-AXIAL SPACES: No parenchymal hemorrhage, midline shift, or mass effect. Carreon-white matter differentiation is wellpreserved. No acute infarct. Negative insular ribbon sign. Atherosclerotic vascular calcification of the carotid arteries but negative hyperdense vessel sign. Mild prominence of the ventricles and sulci consistent with parenchymal volume loss. Mild low-density white matter changes. No subarachnoid hemorrhage. No subdural or epidural collection. CALVARIUM, SKULL BASE, AND SOFT TISSUES: No fractures or suspicious bony lesions. Mild paranasal sinus mucosal thickening. Partial opacification of the left aspect of the sphenoid sinuses. Visualized orbits and globes are intact. The extracranial soft tissues are unremarkable. IMPRESSION: No acute intracranial pathology. WSN: [id number] Ordering Physician: Penelope Amaya Dictated By: Chad Lindsey MD Dictated Date/Time: 08/27/22 9:57 am Reviewed By: Chad Lindsey MD Signed By: Chad Lindsey MD Signed Date/Time: 08/27/22 9:57 am Transcribed By: RAHUL Transcribed Date/Time: 08/27/22 9:55 am CTA Neck vessels W contrast IV * [facility] , CIS S: TRANSCRIBE Bonnie Sweeney MD: VERIFY Event Display: Result: Authored Date: [id number] CT Angio Head, CT Angio Neck Hx of Present Illness: Pt arrived via EMS from work. Pt reports weakness dizziness today while at work. My boss saw me stumble into a door. Pt reports CPx 1 week .; Reason: Other:; Neuro deficit, acute, stroke suspected; Clinical Question(s): Other:; Hematoma Aneurysm; Order Comment: / Other: TECHNIQUE: CT angiogram of the head and neck was performed after bolus administration of intravenous contrast. 100 mL of Omnipaque 300 was administered intravenously. Coronal and sagittal MIP reformatted images were obtained. Additional 3-D images were created on a separate workstation under concurrent supervision by the attending radiologist. All stenoses are measured using NASCET criteria. Weight-based protocol using automatic tube modulation was used to optimize exposure parameters. RADIATION DOSE PARAMETERS: CTDIvol Body: 13.60 mGy, DLP Body: 590 mGy*cm. COMPARISON: Noncontrast CT head performed concurrently. CTA Head and Neck 09/18/2021. FINDINGS: CTA OF THE NECK: Arch: There is a three vessel aortic arch. The origins of the supra aortic vessels are patent. Right carotid system: The common carotid and cervical internal carotid arteries are patent. There is calcified atherosclerotic plaque at the carotid bifurcation, but no ICA stenosis (0%) by NASCET criteria. There is no dissection or aneurysm. Left carotid system: The common carotid and cervical internal carotid arteries are patent. There iscalcified atherosclerotic plaque at the carotid bifurcation, but no ICA stenosis (0%) by NASCET criteria. There is no dissection or aneurysm. There is a left-dominant vertebral artery system. Right vertebral: No significant stenosis. No evidence of dissection or aneurysm. Left vertebral: No significant stenosis. No evidence of dissection or aneurysm. Other: Soft tissues and bones: No evidence of lymphadenopathy or mass. 2 nodules are noted medially inferior to the right thyroid lobe and thyroid isthmus,, the larger medially measuring 1.6 cm and containing coarse calcification, and small focus with apparent cystic change on the left measuring 1.1 cm. These are similar in size dating back to at least 06/03/2019, possibly exophytic thyroid nodules. Theremainder of the thyroid contain subcentimeter nodularity which does not require dedicated follow-up. Visualized lungs are blurred by motion artifact, without significant superimposed airspace opacity. Multilevel degenerative changes of the spine are noted, without acute osseous abnormality. CTA OF THE HEAD: Anterior circulation: Bilateral intracranial ICAs demonstrate atherosclerotic calcification, without stenosis. Bilateral MELY and MCA branches are patent. There is no significant stenosis, proximal cutoff, aneurysm, or vascular malformation. Posterior circulation: Trace atherosclerotic calcifications of bilateral intracranial vertebral arteries are noted, with no significant stenosis. The basilar artery is relatively small in caliber butpatent. Bilateral PICA, SCA, and FINANCIAL PLANNING ADVISER branches are patent. There is predominantly supply to both licensed physical therapist assistant with hypoplastic P1 segments on each side. No high-grade stenosis or proximal cutoff is seen. There is no aneurysm or vascular malformation. Veins: Major dural venous sinuses are patent. Other: Soft tissues and bones: No midline shift or effacement of the basal cisterns. No space-occupying hemorrhage. No territorial loss of carreon-white matter differentiation. Orbits are unremarkable. There is mild scattered mucosal thickening in the paranasal sinuses , greatest in the right maxillary sinus, without fluid levels. Small areas retention cyst is seen in the left sphenoid sinus. IMPRESSION: No proximal occlusion or high grade stenosis in the major arteries of the head and neck. WSN: [id number] Ordering Physician: Penelope Amaya Dictated By: Bonnie Sweeney MD Dictated Date/Time: 08/27/22 3:46 pm Reviewed By: Bonnie Sweeney MD Signed By: Bonnie Sweeney MD Signed Date/Time: 08/27/22 3:46 pm Transcribed By: CSZach Transcribed Date/Time: 08/27/22 10:10 am CTA Head vessels W contrast IV * [facility] , CIS S: TRANSCRIBE Bonnie Sweeney MD: VERIFY Event Display: Result: Authored Date: [id number] CT Angio Head, CT Angio Neck Hx of Present Illness: Pt arrived via EMS from work. Pt reports weakness dizziness today while at work. My boss saw me stumble into a door. Pt reports CPx 1 week .; Reason: Other:; Neuro deficit, acute, stroke suspected; Clinical Question(s): Other:; Hematoma Aneurysm; Order Comment: / Other: TECHNIQUE: CT angiogram of the head and neck was performed after bolus administration of intravenous contrast. 100 mL of Omnipaque 300 was administered intravenously. Coronal and sagittal MIP reformatted images were obtained. Additional 3-D images were created on a separate workstation under concurrent supervision by the attending radiologist. All stenoses are measured using NASCET criteria. Weight-based protocol using automatic tube modulation was used to optimize exposure parameters. RADIATION DOSE PARAMETERS: CTDIvol Body: 13.60 mGy, DLP Body: 590 mGy*cm. COMPARISON: Noncontrast CT head performed concurrently. CTA Head and Neck 09/18/2021. FINDINGS: CTA OF THE NECK: Arch: There is a three vessel aortic arch. The origins of the supra aortic vessels are patent. Right carotid system: The common carotid and cervical internal carotid arteries are patent. There is calcified atherosclerotic plaque at the carotid bifurcation, but no ICA stenosis (0%) by NASCET criteria. There is no dissection or aneurysm. Left carotid system: The common carotid and cervical internal carotid arteries are patent. There iscalcified atherosclerotic plaque at the carotid bifurcation, but no ICA stenosis (0%) by NASCET criteria. There is no dissection or aneurysm. There is a left-dominant vertebral artery system. Right vertebral: No significant stenosis. No evidence of dissection or aneurysm. Left vertebral: No significant stenosis. No evidence of dissection or aneurysm. Other: Soft tissues and bones: No evidence of lymphadenopathy or mass. 2 nodules are noted medially inferior to the right thyroid lobe and thyroid isthmus,, the larger medially measuring 1.6 cm and containing coarse calcification, and small focus with apparent cystic change on the left measuring 1.1 cm. These are similar in size dating back to at least 06/03/2019, possibly exophytic thyroid nodules. Theremainder of the thyroid contain subcentimeter nodularity which does not require dedicated follow-up. Visualized lungs are blurred by motion artifact, without significant superimposed airspace opacity. Multilevel degenerative changes of the spine are noted, without acute osseous abnormality. CTA OF THE HEAD: Anterior circulation: Bilateral intracranial ICAs demonstrate atherosclerotic calcification, without stenosis. Bilateral MELY and MCA branches are patent. There is no significant stenosis, proximal cutoff, aneurysm, or vascular malformation. Posterior circulation: Trace atherosclerotic calcifications of bilateral intracranial vertebral arteries are noted, with no significant stenosis. The basilar artery is relatively small in caliber butpatent. Bilateral PICA, SCA, and FINANCIAL PLANNING ADVISER branches are patent. There is predominantly supply to both licensed physical therapist assistant with hypoplastic P1 segments on each side. No high-grade stenosis or proximal cutoff is seen. There is no aneurysm or vascular malformation. Veins: Major dural venous sinuses are patent. Other: Soft tissues and bones: No midline shift or effacement of the basal cisterns. No space-occupying hemorrhage. No territorial loss of carreon-white matter differentiation. Orbits are unremarkable. There is mild scattered mucosal thickening in the paranasal sinuses , greatest in the right maxillary sinus, without fluid levels. Small areas retention cyst is seen in the left sphenoid sinus. IMPRESSION: No proximal occlusion or high grade stenosis in the major arteries of the head and neck. WSN: [id number] Ordering Physician: Penelope Amaya Dictated By: Bonnie Sweeney MD Dictated Date/Time: 08/27/22 3:46 pm Reviewed By: Bonnie Sweeney MD Signed By: Bonnie Sweeney MD Signed Date/Time: 08/27/22 3:46 pm Transcribed By: RAHUL Transcribed Date/Time: 08/27/22 10:10 am Portable XR Chest Views * BHSPowerscribe , CIS S: TRANSCRIBE Duljosemy MD, Kevin: VERIFY Jermain Sutherland MD: SIGN Event Display: Result: Authored Date: [id number] Chest Portable INDICATION: Chest pain, dizziness. COMPARISON: 04/04/2022. FINDINGS: LINES AND TUBES: None. LUNGS AND PLEURA: Clear lungs. Normal pulmonary vascularity. No pleural effusion. No pneumothorax. HEART, MEDIASTINUM AND MICHELLE: Heart is normal in size. Normal mediastinal and hilar contour. BONES AND SOFT TISSUES: Small osseous focus along the superior aspect of the right humeral head/neck, which may represent calcific tendinosis. IMPRESSION: No evidence of acute abnormality. I have personally reviewed the images and I agree with this report. WSN: [id number] Ordering Physician: Penelope Amaya Dictated By: Jermain Sutherland MD Dictated Date/Time: 08/27/22 10:38 a Reviewed By: Kevin Catherine MD Signed By: Kevin Catherine MD Signed Date/Time: 08/27/22 10:43 am Transcribed By: CSZach Transcribed Date/Time: 08/27/22 10:16 am MR Brain WO contrast * JAMAAL Blue S: Deirdre Waite MD N: VERIFY Event Display: Result: Authored Date: [id number] MRI Brain W/O Contrast INDICATION: Reason: TIA; Clinical Question(s): Infarction; Order Comment: Please see Reference Textfor complete list of contraindications Infarction TECHNIQUE: MRI of the brain was performed without contrast utilizing sagittal T1, axial T2, axial FLAIR, axial SWAN, and axial DWI sequences. COMPARISON: Head CT 08/27/2022. Brain MRI 06/05/2019. FINDINGS: BRAIN and EXTRA-AXIAL SPACES: The ventricles and sulci are prominent reflecting volume loss. Scattered nonspecific T2/flair hyperintensities are present throughout the subcortical, deep, and periventricular white matter. There is no evidence of restricted diffusion to suggest acute infarction. There is no hemorrhage, midline shift, or mass effect. There is no extra-axial collection. Flow voids are preserved in the dominant intracranial vessels. EXTRACRANIAL SOFT TISSUES: Orbits are unremarkable. Mild scattered paranasal sinus mucosal thickening. This retention cyst in the sphenoid sinus on the left side. BONES: Marrow signal is preserved. IMPRESSION: 1. No acute/subacute infarct, mass, hemorrhage, or other acute intracranial abnormality. 2. Mild scattered T2/FLAIR hyperintense foci in the white matter, nonspecific but most likely reflecting chronic small vessel disease. WSN: [id number] Ordering Physician: Aquilino Chatman Dictated By: Deirdre Molina MD Dictated Date/Time: 08/29/22 7:38 am Reviewed By: Deirdre Molina MD Signed By: Deirdre Molina MD Signed Date/Time: 08/29/22 7:38 am Transcribed By: RAHUL Transcribed Date/Time: 08/29/22 7:32 am Patient Care team information Care Team Personnel Name: Kelly Swanson RN Position: [facility] SN RN Member Role: Primary Care Nurse Name: Hoa Booth RN Position: [facility] RN Member Role: Primary Care Nurse Name: Manpreet Tabares MD Position: [facility] Primary Care Physician Member Role: PCP Address: Address: [address] [place] [id number] Name: Eliane Shelton RN Position: [facility] RN Member Role: Primary Care Nurse Name: Fatih Dixon RN Position: [facility] RN Member Role: Primary Care Nurse Name: Rama WILBURN Attending Position: [facility] ED Medicine MD Name: Altaf Villarreal RN Position: [facility] ED RN W/OE and Tasks Member Role: Patient Care Provider Name: September Position: [facility] ED TA [facility] Member Role: Senior Stack Engineer Name: Roseann Norris Position: [facility] ED OA Charge Member Role: ED Associate Care Team Related Persons Name: ADINA PIERRE Address: home [address] [place] [address] Name: KANDACE PIERRE Address: home [address] [place] [address] Name: ZACK PIERRE Address: [address] [place] [address]
--- OUTSIDE RECORDS SUMMARY | 2023-04-11 06:05 | XMS_ITS | Continuity of Care Document ---
Author Name Unknown Organization [facility] Terry lt Address [address] [place] [address]- Care Team Providers Care Post Anesthesia Care Unit Nurse Name Role Phone Raysa JAY, Manpreet Garcia Primary Care Physician [place] [facility] [place](s[place] 12/20/21 - 01/19/22 [facility] Adult [address] [place] [address]- Allergies, Adverse Reactions, Alerts Substance Reaction Severity [...] Not Give n Patient Refuses 1Result Comment: [facility]-[id number] 2Admin Note: At work 3Admin Note: REFUSED [...] each, 1 Refills, Maintenance, 01/07/22 15:37:00 EDT, [facility] #[id number], Partial fill upon patient request if the prescription is for a schedule II opioid drug., 172, cm, 12/28/21 8:08:00 EDT,... Start Date: 01/07/22 Status: Ordered valsartan 80 mg oral tablet 80 mg, 1, tablet, By Mouth, Daily, please call to schedule physical with Dr. Tabares, # 90 tablet, Refills 0, Tot. Refills 0, Maintenance, 11/09/21 14:29:00 EDT, Route to Pharmacy Electronically, [facility]/pharmacy #[id number], Partial fill upon patient request... 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 Active Degenerative joint disease - [...]
--- OUTSIDE RECORDS SUMMARY | 2023-04-11 06:05 | XMS_ITS | Continuity of Care Document ---
Author Name Unknown Organization [facility] Corie osvaldo Address [address] [place] [address] [address] [place] [address]- Care Team Providers Care Airborne Mission Systems Name Role Phone Raysa JAY, Manpreet Garcia Primary Care Physician [place] [facility] [place] 11[place]23/20 [facility] [address] [place], [place] [address] Attending Physician: Corry Camp MD Allergies, Adverse Reactions, Alerts Substance Reaction [...] Not Give n Patient Refuses 1Result Comment: [facility]-[id number] 2Admin Note: At work 3Admin Note: REFUSED [...] Maintenance, 08/03/19 11:44:00 EST, REC Powder, [facility]/pharmacy #[id number], test date 10/22/19, 240 mL By Mouth Every 10 minutes, 173, cm, 07/21/19 11:41:00 EST, Height, 86.5, kg, 06/04/19 13:20:00 EST,... Start Date: 08/03/19 Status: Ordered sitaGLIPtin 50 mg oral tablet 1 tablet = 50 mg, By Mouth, Daily, # 7 capsule, 0 Refills, Maintenance, 05/28/20 17:03:00 EST, [facility]/pharmacy #[id number], Partial fill upon patient request, 173, [...] disorder(Confirmed) Active 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the [facility] CKD(Confirmed) Active Degenerative joint disease - [...]
--- OUTSIDE RECORDS SUMMARY | 2023-04-11 06:05 | XMS_ITS | Continuity of Care Document ---
Author Name Unknown Organization [facility] Terry lt Address [address] [place] [address]- Care Team Providers Care Extrusion Process Operator Name Role Phone Raysa JAY, Manpreet Garcia Primary Care Physician [place] [facility] [place]19[place]21 [place] 10/19/21 [facility] Adult [address] [place] [address]- Allergies, Adverse Reactions, Alerts Substance Reaction Severity [...] Patient Refuses 1Result Comment: [facility]-[id number] 2Admin Note: At work 3Admin Note: REFUSED [...] 0 Refills, Maintenance, 09/26/21 17:25:00 EDT, Tablet, [facility]/pharmacy #[id number], Partial fill upon patient request if [...] 10/08/21 14:11:00 EDT, Route to Pharmacy Electronically, [facility]/pharmacy #[id number], Partial fill upon patient requestif the prescription [...] Active 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w [facility] CKD(Confirmed) Active Degenerative joint disease [...]
--- OUTSIDE RECORDS SUMMARY | 2023-04-11 06:05 | XMS_ITS | Continuity of Care Document ---
Author Name Unknown Organization [facility] Terry lt Address [address] [place] [address]- Care Team Providers Care Dressmaker Garment Fitter Name Role Phone Raysa JAY, Manpreet Garcia Primary Care Physician [place] [facility] [place]10[place]21 - 11/09/21 [facility] Adult [address] [place] [address]- Allergies, Adverse Reactions, Alerts Substance Reaction Severity [...] Not Give n Patient Refuses 1Result Comment: [facility]-[id number] 2Admin Note: At work 3Admin Note: REFUSED [...] 0 Refills, Maintenance, 09/26/21 17:25:00 EDT, Tablet, [facility]/pharmacy #[id number], Partial fill upon patient request [...] 11/09/21 14:29:00 EDT, Route to Pharmacy Electronically, [facility]/pharmacy #[id number], Partial fill upon patient request... 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[facility] CKD(Confirmed) Active Degenerative joint disease - [...]
--- OUTSIDE RECORDS SUMMARY | 2023-04-11 06:05 | XMS_ITS | Continuity of Care Document ---
Author Name Unknown Organization [facility] Terry lt Address [address] [place] [address]- Care Team Providers Care Dam Worker Name Role Phone Raysa JAY, Manpreet Garcia Primary Care Physician [place] [facility] [place] 09/20/21 - 10/24/21 [facility] Adult [address] [place] [address]- Attending Physician: Jaci KOEHLER, Maria Dolores Allergies, Adverse Reactions, Alerts Substance Reaction Severity [...] Not Give n Patient Refuses 1Result Comment: [facility]-[id number] 2Admin Note: At work 3Admin Note: REFUSED [...] 0 Refills, Maintenance, 09/26/21 17:25:00 EDT, Tablet, [facility]/pharmacy #[id number], Partial fill upon [...] disease of kidney - w [facility] CKD(Confirmed) Active Degenerative joint disease - [...]
--- OUTSIDE RECORDS SUMMARY | 2023-04-11 06:05 | XMS_ITS | Continuity of Care Document ---
Author Name Unknown Organization [facility] Terry lt Address [address] [place] [address]- Care Team Providers Care Sole Conditioner Name Role Phone Manpreet Tabares MD Primary Care Physician [place] [facility] [place] 01/18/22 - 01/25/22 [facility] Adult [address] [place] [address]- Attending Physician: Manpreet Tabares MD Allergies, Adverse [...] Patient Refuses 1Result Comment: [id number] 2Admin Note: At work 3Admin Note: REFUSED [...] 3 Refills, Maintenance, 04/13/21 14:48:00 EDT, [facility], 172, cm, 12/21/20 8:34:00 EDT, Height, 81, kg, 09/15/20 12:34:00 EST, Dry Weight Start Date: 04/13/21 Status: Ordered Trulicity Pen 1.5 mg/0.5 mL subcutaneous solution = 1.5 mg, Subcutaneous Infusion, Every week, # 12 each, 1 Refills, Maintenance, 01/07/22 15:37:00 EDT, [facility] #[id number], Partial fill upon patient request if the prescription is for a schedule II opioid drug., 172, cm, 12/28/21 8:08:00 EDT,... Start Date: 01/07/22 Status: Ordered valsartan 80 mg oral tablet 80 mg, 1, tablet, By Mouth, Daily, please call to schedule physical with Dr. Tabares, # 90 tablet, Refills 0, Tot. Refills 0, Maintenance, 11/09/21 14:29:00 EDT, Route to Pharmacy Electronically, [facility]/pharmacy #[id number], Partial fill upon patient request... Start Date: [...] 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w [facility] CKD(Confirmed) Active Degenerative [...] [Reference Range]: 1 2 Height 172 cm (01/18/22 11:41 AM) 172 cm (01/18/22 11:37 AM) Weight 85.4 kg (01/18/22 11:37 AM) Oxygen Saturation [94-100 %] 96 % (01/18/22 11:37 AM) Pulse Rate [55-90 bpm] 88 bpm (01/18/22 11:37 AM) Body Mass Index [18.5-24.99] 28.87 *H* (01/18/22 11:37 AM) Blood Pressure [90-138/55-84 mm Hg] 121/ 79mm Hg (01/18/22 11:41 AM) 133/81mm Hg (01/18/22 11:37 AM) Mode of Delivery (Oxygen) Room air (01/18/22 11:37 AM) Blood pressure sites Arm, left (01/18/22 11:41 AM) Arm, left (01/18/22 11:37 AM) Weight Obtained Via Standing scale (01/18/22 11:37 AM) Social History Social History Type Response Smoking Status Never smoker entered on: 06/30/13 Sex
--- OUTSIDE RECORDS SUMMARY | 2023-04-11 06:05 | XMS_ITS | Continuity of Care Document ---
Author Name Unknown Organization [facility] Address Unknown Care Team Providers Care Process Control Programmer Name Role Phone Manpreet Tabares MD Primary Care Physician [phone] Encounter [facility] [place] R [id number] Date(s): 10/19/21 - 11/23/21 [facility] Attending Physician: Eliel Beatty MD Referring Physician: Manpreet Tabares MD Allergies, [...] Not Give n Patient Refuses 1Result Comment: [facility]-[id number] 2Admin Note: At work 3Admin Note: REFUSED [...] 0 Refills, Maintenance, 09/26/21 17:25:00 EDT, Tablet, [facility]/pharmacy #[id number], Partial fill upon patient request if [...] to Pharmacy Electronically, [facility]/pharmacy #[id number], Partial fill upon patient request... Start Date: [...] 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w [facility] CKD(Confirmed) Active Degenerative joint disease - [...]
--- OUTSIDE RECORDS SUMMARY | 2023-04-11 06:05 | XMS_ITS | Continuity of Care Document ---
Author Name Unknown Organization [facility] Terry lt Address [address] [place] [address]- Care Team Providers Care Pathology Supervisor Name Role Phone Raysa JAY, Manpreet Garcia Primary Care Physician [phone] [place] [facility] [place] 11/15/21 - 12/15/21 [facility] Adult [address] [place] [address]- Allergies, Adverse Reactions, Alerts Substance Reaction Severity [...] Patient Refuses 1Result Comment: [facility]-[id number] 2Admin Note: At work 3Admin Note: REFUSED [...] 0 Refills, Maintenance, 09/26/21 17:25:00 EDT, Tablet, [facility]/pharmacy #[id number], Partial fill upon patient request if the prescription is for a schedule II opioid drug., 172, cm, 0... Start Date: 09/26/21 Status: Ordered meloxicam 15 mg oral tablet 1 tablet = 15 mg, By Mouth, Daily, PRN For pain, with food, # 30 tablet, 1 Refills, Maintenance, 11/27/21 14:40:00 EDT, Tablet, [id number], Partial fill upon patient request if the [...] 11/27/21 14:40:00 EDT, Route to Pharmacy Electronically, [facility] #[id number], Partial fill upon patient request if the [...] 11/09/21 14:29:00 EDT, Route to Pharmacy Electronically, [facility]/pharmacy #[id number], Partial fill upon patient request... Start Date: [...]
--- OUTSIDE RECORDS SUMMARY | 2023-04-11 06:05 | XMS_ITS | Continuity of Care Document ---
Author Name Unknown Organization [facility] ter Address [address] [place] [address]- Care Team Providers Care Cosmetics Presser Name Role Phone Raysa JAY, Manpreet Garcia Primary Care Physician [id number] Date(s): 09/18/21 - 09/19/[address] [address]- Discharge Disposition: A-D/C Home Attending Physician: Kassandra Clarke DO Admitting Physician: Andrés Lucio MD Referring Physician: Not on Staff, Referring [...] Comment: [facility]-[id number] 2Admin Note: At work 3Admin Note: REFUSED [...] 10/03/21 11:30:00 EDT, 09/19/21 11:30:00 EST, Tablet, [facility]/pharmacy #[id number], Partial fill upon patient [...] 16:14:00 E... Start Date: 07/27/20 Status: Ordered Tylenol 325 mg oral tablet 975 mg, Tablet, By Mouth, 09/19/21 9:00:00 EST Start Date: 09/19/21 Stop Date: 09/19/21 Status: Completed valsartan 40 mg oral tablet 80 mg, Tablet, By Mouth, 09/19/21 9:00:00 EST Start Date: 09/19/21 Stop Date: 09/19/21 Status: Completed valsartan 80 mg oral tablet 80 mg, [...] EST, Supply Start Date: 09/19/21 Status: Ordered Wellbutrin = 450 mg, By Mouth, Daily, 0 Refills, Maintenance, 06/03/19 18:11:12 EST Start Date: 06/03/19 Status: Ordered Problem List Condition Effective Dates Status Health Status Inform ant Benign hypertension(Confirmed) Active Borderline personality disorder(Confirmed) Active 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w [facility] CKD(Confirmed) Active 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 Depression(Confirmed) Active Insulin long-term use(Confirmed) Active Erectile dysfunction(Confirmed) Active Rash(Confirmed) Active Insulin long-term use(Confirmed) Active Hypercholesterolemia(Confirmed) Active Ineffective self health management(Confirmed) Active Right flank pain(Confirmed) Active Uncontrolled type 2 diabetes mellitus(Confirmed) Active Diabetes mellitus type 2, uncontrolled(Confirmed) Active Vital Signs Most recent to oldest [Reference Range]: 1 2 3 Height 172 cm (09/19/21 10:59 AM) Weight 79 kg (09/19/21 10:59 AM) 81 kg (09/19/21 7:17 AM) Oxygen Saturation [94-100 %] 100 % (09/19/21 10:59 AM) 96 % (09/19/21 9:09 AM) 96 % (09/19/21 7:55 AM) Pulse Rate [55-90 bpm] 86 bpm (09/19/21 10:59 AM) 82 bpm (09/19/21 9:09 AM) 72 bpm (09/19/21 7:55 AM) Body Mass Index [18.5-24.99] 26.7 *H* (09/19/21 10:59 AM) Blood Pressure [90-138/55-84 mm Hg] 144/90mm Hg *H* (09/19/21 10:59 AM) 142/91mm Hg *H* (09/19/21 9:09 AM) 136/76mm Hg (09/19/21 7:55 AM) Respiratory Rate [16-30 br/min] 17 br/min (09/19/21 10:59 AM) 22 br/min (09/19/21 9:35 AM) 22 br/min (09/19/21 9:09 AM) Temperature [96.8-100.4 DegF] 98.7 DegF (09/19/21 10:59 AM) 97.5 DegF (09/19/21 7:55 AM) 97.9 DegF (09/19/21 7:17 AM) Mode of Delivery (Oxygen) Room air (09/19/21 10:59 AM) Room air (09/19/21 9:09 AM) Room air (09/19/21 7:55 AM) Blood pressure sites Arm, right (09/19/21 10:59 AM) Arm, left (09/19/21 9:09 AM) Arm, right (09/19/21 7:17 AM) Temperature Route Oral (09/19/21 10:59 AM) Oral (09/19/21 7:55 AM) Oral (09/19/21 7:17 AM) Dry Weight 79 kg (09/19/21 10:59 AM) Social History Social History Type Response Smoking Status Never smoker entered on: 06/30/13 Sex
--- OUTSIDE RECORDS SUMMARY | 2023-04-11 06:05 | XMS_ITS | Continuity of Care Document ---
Author Name Unknown Organization [facility] Terry lt Address [address] [place] [address]- Care Team Providers Care Wood Products Manufacturer Name Role Phone Rasya JAY, Manpreet Garcia Primary Care Physician En[place] [facility] [place] Date(s): 10/01/22 - 10/31/22 [facility] Adult [address] [place] [address]- Allergies, Adverse Reactions, Alerts Substance Reaction Severity Status codeine loopy Active Immunizations Given and Recorded Vaccine Date Status Refusal Reason [id number] 12y+ bivalent booster vax 06/04/22 Recorded influenza [...] 1Result Comment: [facility]-[id number] 2Admin Note: At work 3Admin Note: REFUSED 4Admin Note: 2009 OLD PCP 5Result Comment: will follow up with HCP Medications ARIPiprazole 2 mg oral tablet 2 mg, 1, tablet, By Mouth, Daily, # 30 tablet, Refills 0, Tot. Refills 0, Maintenance, 08/07/22 9:16:00 EST, Route to Pharmacy Electronically, [facility] #[id number], Partial fill upon patient request if the [...] tablet, 1 Refills, Maintenance, 09/20/22 15:42:00 EST, [facility] #[id number], 173, cm, 08/30/22 14:53:00 EST, Height, 84, [...] 0 Refills, Maintenance, 09/03/22 16:31:00 EST, Tablet, [facility] #[id number], Partial fill upon patient request if theprescription [...] each, 1 Refills, Maintenance, 05/24/22 11:14:00 EST, [facility] #[id number], Partial fill upon patient request if the prescription is for a schedule II opioid drug., 172, cm, 05/20/22 15:52:00 EST... Start Date: 05/24/22 Status: Ordered valsartan 160 mg oral tablet 160 mg, 1, tablet, By Mouth, Daily, # 90 tablet, Refills 1, Tot. Refills 1, Maintenance, 09/20/22 15:42:00 EST, Route to Pharmacy Electronically, [facility] #[id number], Partial fill upon patient request if the [...] Team Personnel Name: Kelly Swanson RN Position: [facility] SN RN Member Role: Primary Care Nurse Name: Hoa Booth RN Position: S RN Member Role: Primary Care Nurse Name: Manpreet Tabares MD Position: [facility] Primary Care Physician Member Role: PCP Address: Address: [address] [place] [id number] Name: Eliane Shelton RN Position: S RN Member Role: Primary Care Nurse Name: Faith Dixon RN Position: [facility] RN Member Role: Primary Care Nurse Care Team Related Persons Name: ADINA PIERRE Address: home [address] [place] [address] Name: KANDACE PIERRE Address: [address] [place] [address] Name: ZACK PIERRE Address: [address] [place] [address]
--- OUTSIDE RECORDS SUMMARY | 2023-04-11 06:05 | XMS_ITS | Continuity of Care Document ---
Author Name Unknown Organization [facility] Terry Address [address] [place] [address]- Care Team Providers Care Air Deodorizer Servicer Name Role Phone Manpreet Tabares MD Primary Care Physician [place] [facility] [place] Date(s): 10/04/19 - 10/11/19 [facility] [address] [place] [address]- [facility] Encounter Diagnosis Acute URI(Discharge Diagnosis) - 10/04/19 Attending Physician: Manpreet Tabares MD Allergies, Adverse [...] Comment: [facility]-[id number] 2Admin Note: At work 3Admin Note: REFUSED [...] Refills, Maintenance, 08/03/19 11:44:00 EST, REC Powder, [facility]/pharmacy #[id number], test date 10/22/19, [...] 06/23/19 13:28:26 EST, Route to Pharmacy Electronically, [id number], [facility], 173, cm, 06/23/19 [...] Active Uncontrolled type 2 diabetes mellitus(Confirmed) Active Diagnosis Diagnosis Type Effective Dates Health Status Clini ashley Service Informant Acute URI Discharge Diagnosis 10/04/19 Social History Social History Type Response Smoking Status Never smoker entered on: 12/05/15 Sex
--- OUTSIDE RECORDS SUMMARY | 2023-04-11 06:05 | XMS_ITS | Continuity of Care Document ---
Author Name Unknown Organization [facility] Terry lt Address [address] [place] [address]- Care Team Providers Care Department Head College Or [employer] Name Role Phone Raysa JAY, Manpreet Garcia Primary Care Physician Encounter [facility] [place] Date(s): 06/19/22 - 07/19/22 [facility] Adult [address] [place] [address]- Attending Physician: Admtr, Ar8 Admitting Physician: Admtr, [...] n Patient Refuses 1Result Comment: [facility]-[id number] 2Admin Note: At work 3Admin Note: REFUSED [...] 11, Tot. Refills 11, Maintenance, Use with [place] to test bloodsugars tid for E11.9, 04/23/22 [...] 0 Refills, Maintenance, 04/05/22 15:56:00 EDT, Tablet, [facility] #[id number], Partial fill upon patient request if the prescription is for a schedule II opioid drug. refill from PCP, 172, c... Start Date: 04/05/22 Stop Date: 05/05/22 Status: Ordered Metoprolol Tartrate 25 mg oral tablet 1 tablet = 25 mg, By Mouth, 2 times a day, # 60 tablet, 2 Refills, Maintenance, 05/29/22 13:45:00 EST, Tablet, [facility] #[id number], Partial fill upon patient request if the prescription is for a schedule II opioid drug. refill from PCP, 174, c... Start Date: 05/29/22 Stop Date: 08/27/22 Status: Ordered Trulicity Pen 1.5 mg/0.5 mL subcutaneous solution = 1.5 mg, Subcutaneous Infusion, Every week, # 12 each, 1 Refills, Maintenance, 05/24/22 11:14:00 EST, [facility] #[id number], Partial fill upon patient request if the prescription is for a schedule II opioid drug., 172, cm, 05/20/22 15:52:00 EST... Start Date: 05/24/22 Status: Ordered valsartan 160 mg oral tablet 160 mg, 1, tablet, By Mouth, Daily, # 90 tablet, Refills 0, Tot. Refills 0, Maintenance, 05/29/22 10:46:00 EST, Route to Pharmacy Electronically, [facility] #[id number], Partial fill upon patient request if the [...] Display: Cardiovascular Results Scanned Authored Date: * Aubrie Freeman: PERFORM Event Display: Cardiovascular Results Scanned Authored Date: * Linda Carter: PERFORM Event Display: Cardiovascular Results Scanned Authored Date: * Mariposa Steinberg: PERFORM Event Display: Radiology Results Scanned Authored Date: Cardiology Outpatient Note * Rere Yuen: PERFORM Event Display: Cardiology Note Office Authored Date: US Neck * Event Display: Ultrasound Neck Authored Date: Patient Care team information Care Team Personnel Name: Kelly Swanson RN Position: [facility] RN Member Role: Primary Care Nurse Name: Hoa Booth RN Position: S RN Member Role: Primary Care Nurse Name: Manpreet Tabares MD Position: [facility] Primary Care Physician Member Role: PCP Address: Address: [address] [place] [id number] [place] Care Team Related Persons Name: ADINA PIERRE Address: home [address] [place] [address] Name: KANDACE PIERRE Address: home [address] [place] [address] UM Name: ZACK PIERRE Address: home [address] [place] [address]
--- OUTSIDE RECORDS SUMMARY | 2023-04-11 06:05 | XMS_ITS | Continuity of Care Document ---
Author Name Unknown Organization [facility] Terry lt Address [address] [place] [address]- Care Team Providers Care Edi Architect Name Role Phone Raysa JAY, Manpreet Garcia Primary Care Physician [place] [facility] [place] 02/05/22 - 03/07/22 [facility] Adult [address] [place] [address]- Attending Physician: Admtr, Ar8 Admitting Physician: Admtr, [...] Not Give n Patient Refuses 1Result Comment: [facility]-[id number] 2Admin Note: At work 3Admin Note: REFUSED [...] tablet, 0 Refills, Maintenance, 02/05/22 10:43:00 EDT, [facility] #[id number], Partial fill upon patient request if the prescription is for a schedule IIopioid drug., 172, cm, 02/05/22 10:10:00 EDT, [place]... Start Date: 02/05/22 Status: Ordered Januvia 50 [...] each, 1 Refills, Maintenance, 01/07/22 15:37:00 EDT, [facility] #[id number], Partial fill upon patient request if the [...] Active 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w [facility] CKD(Confirmed) Active Degenerative joint disease - [...] Team Personnel Name: Manpreet Tabares MD Address: [address] [place] [id number]
--- OUTSIDE RECORDS SUMMARY | 2023-04-11 06:05 | XMS_ITS | Continuity of Care Document ---
Author Name Unknown Organization [facility] Terry lt Address [address] [place] [address]- Care Team Providers Care Portable Track Line Marker Name Role Phone Raysa JAY, Manpreet Garcia Primary Care Physician Encounter [facility] [place] Date(s): 10/22/21 - 10/29/21 [facility] Adult [address] [place] [address]- Encounter Diagnosis Vertigo(Discharge Diagnosis) - 10/22/21 Post concussion syndrome(Discharge Diagnosis) - 10/22/21 Benign hypertension(Discharge Diagnosis) - 10/22/21 Attending Physician: Wali KOEHLER, Anila Lucas Referring Physician: Manpreet Tabares MD Allergies, Adverse [...] Give n Patient Refuses 1Result Comment: [facility]-[id number] 2Admin Note: At work 3Admin Note: REFUSED [...] 0 Refills, Maintenance, 09/26/21 17:25:00 EDT, Tablet, [facility]/pharmacy #[id number], Partial fill upon patient request [...] disease of kidney - [facility] CKD(Confirmed) Active 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 Depression(Confirmed) Active Insulin long-term use(Confirmed) Active Erectile dysfunction(Confirmed) Active Rash(Confirmed) Active Insulin long-term use(Confirmed) Active Hypercholesterolemia(Confirmed) Active Ineffective self health management(Confirmed) Active Right flank pain(Confirmed) Active Uncontrolled type 2 diabetes mellitus(Confirmed) Active Diabetes mellitus type 2, uncontrolled(Confirmed) Active Diagnosis Diagnosis Type Effective Dates Health Status Clinical Service Informant Vertigo Discharge Diagnosis 10/22/21 Post concussion syndrome Discharge Diagnosis 10/22/21 Benign hypertension Discharge Diagnosis 10/22/21 Vital Signs Most recent to oldest [Reference Range]: 1 2 3 Height 172 cm (10/22/21 2:53 PM) 172 cm (10/22/21 2:47 PM) 172 cm (10/22/21 2:31 PM) Weight 82.7 kg (10/22/21 2:31 PM) Oxygen Saturation [94-100 %] 99 % (10/22/21 2:31 PM) Pulse Rate [55-90 bpm] 88 bpm (10/22/21 2:31 PM) Body Mass Index [18.5-24.99] 27.95 *H* (10/22/21 2:31 PM) Blood Pressure [90-138/55-84 mm Hg] 132/78mm Hg (10/22/21 2:53 PM) 148/90mm Hg *H* (10/22/21 2:47 PM) 146/87mm Hg *H* (10/22/21 2:31 PM) Temperature [96.8-100.4 DegF] 97.4 DegF (10/22/21 2:31 PM) Blood pressure sites Arm, right (10/22/21 2:47 PM) Arm, right (10/22/21 2:31 PM) Temperature Route Temporal (10/22/21 2:31 PM) Weight Obtained Via Standing scale (10/22/21 2:31 PM) Social History Social History Type Response Smoking Status Never smoker entered on: 06/30/13 Sex
--- OUTSIDE RECORDS SUMMARY | 2023-04-11 06:05 | XMS_ITS | Continuity of Care Document ---
Author Name Unknown Organization [facility] Terry lt Address [address] [place] [address]- Care Team Providers Care Tour Actor Name Role Phone Raysa JAY, Manpreet Garcia Primary Care Physician Encounter [facility] Date(s): 05/21/22 - 06/20/22 [facility] Adult [address] [place] [address]- Allergies, Adverse Reactions, Alerts Substance Reaction Severity [...] Give n Patient Refuses 1Result Comment: [facility]-[id number] 2Admin Note: At work 3Admin Note: REFUSED [...] 11, Tot. Refills 11, Maintenance, Use with [place] to test bloodsugars tid for E11.9, 04/23/22 [...] 0 Refills, Maintenance, 04/05/22 15:56:00 EDT, Tablet, [facility] #[id number], Partial fill upon patient request if the prescription is for a schedule II opioid drug. refill from PCP, 172, c... Start Date: 04/05/22 Stop Date: 05/05/22 Status: Ordered Metoprolol Tartrate 25 mg oral tablet 1 tablet = 25 mg, By Mouth, 2 times a day, # 60 tablet, 2 Refills, Maintenance, 05/29/22 13:45:00 EST, Tablet, [facility] #[id number], Partial fill upon patient request if the prescription is for a schedule II opioid drug. refill from PCP, 174, c... Start Date: 05/29/22 Stop Date: 08/27/22 Status: Ordered Trulicity Pen 1.5 mg/0.5 mL subcutaneous solution = 1.5 mg, Subcutaneous Infusion, Every week, # 12 each, 1 Refills, Maintenance, 05/24/22 11:14:00 EST, [facility] #[id number], Partial fill upon patient request if the prescription is for a schedule II opioid drug., 172, cm, 05/20/22 15:52:00 EST... Start Date: 05/24/22 Status: Ordered valsartan 160 mg oral tablet 160 mg, 1, tablet, By Mouth, Daily, # 90 tablet, Refills 0, Tot. Refills 0, Maintenance, 05/29/22 10:46:00 EST, Route to Pharmacy Electronically, [facility] #[id number], Partial fill upon patient request if the [...] Care Nurse Name: Manpreet Tabares MD Position: [facility] Primary Care Physician Member Role: PCP Address: Address: [address] [place] [address]- Care Team Related Persons Name: ADINA PIERRE Address: [address] [place] [address] Name: KANDACE PIERRE Address: [address] [place] [address] Name: ZACK PIERRE Address: [address] [place] [address]
--- OUTSIDE RECORDS SUMMARY | 2023-04-11 06:05 | XMS_ITS | Continuity of Care Document ---
Author Name Unknown Organization [facility] lt Address [address] [place] [address]- Care Team Providers Care Economics Instructor Name Role Phone Raysa JAY, Manpreet Garcia Primary Care Physician Encounter [facility] [place] Date(s): 12/10/22 - 01/09/23 [facility] Adult [address] [place] [address]- Allergies, Adverse Reactions, Alerts Substance Reaction Severity Status codeine loopy Active Immunizations Given and Recorded Vaccine Date Status Refusal Reason [id number] 12y+ bivalent booster vax 06/04/22 Recorded influenza [...] Patient Refuses 1Result Comment: [facility]-[id number] 2Admin Note: At work 3Admin Note: REFUSED 4Admin Note: 2009 OLD PCP 5Result Comment: will follow up with HCP Medications ARIPiprazole 2 mg oral tablet 2 mg, 1, tablet, By Mouth, Daily, # 30 tablet, Refills 0, Tot. Refills 0, Maintenance, 08/07/22 9:16:00 EST, Route to Pharmacy Electronically, [facility] #[id number], Partial fill upon patient request if the [...] 11/12/22 10:13:00 EDT, Ophth Ointment, [facility]/pharmacy #[id number], Partial fill upon patient request if the [...] tablet, 1 Refills, Maintenance, 09/20/22 15:42:00 EST, [facility] #[id number], 173, cm, 08/30/22 14:53:00 EST, Height, 84, kg, 08/27/22 17:57:00 EST, Dry Weight Start Date: 09/20/22 Status: Ordered Lipitor 80 mg oral tablet 1 tablet = 80 mg, By Mouth, Daily, # 30 tablet, 0 Refills, Maintenance, 12/11/22 17:40:00 EDT, Tablet, [facility]/pharmacy #[id number], Partial fill upon patient request if the [...] EDT, Route to Pharmacy Electronically, [facility]/pharmacy #[id number], Partial fill upon patient requestif the prescription [...] Care Nurse Name: Hoa Booth RN Position: [facility] RN Member Role: Primary Care Nurse Name: Manpreet Tabares MD Position: [facility] Physician - Primary Care Member Role: PCP Address: Address: [address] [place] [id number] Name: Eliane Shelton RN Position: [facility] RN Member Role: Primary Care Nurse Name: Faith Dixon RN Position: [facility] RN Member Role: Primary Care Nurse Care Team Related Persons Name: ELODIA PIERREE Address: [address] [place] [address] Name: IGNACIO KANDACE Address: [address] [place] [address] Name: ZACK PIERRE Address: [address] [place] [address]
--- OUTSIDE RECORDS SUMMARY | 2023-04-11 06:05 | XMS_ITS | Continuity of Care Document ---
Author Name Unknown Organization [facility] lt Address [address] [place] [address]- Care Team Providers Care Marble Polisher Name Role Phone Raysa JAY, Manpreet Garcia Primary Care Physician En[place] [facility] [place] Date(s): 11/01/22 - 12/01/22 [facility] Adult [address] [place] [address]- Allergies, Adverse Reactions, Alerts Substance Reaction Severity Status codeine loopy Active Immunizations Given and Recorded Vaccine Date Status Refusal Reason [id number] 12y+ bivalent booster vax 06/04/22 Recorded influenza [...] Not Give n Patient Refuses 1Result Comment: [facility]-[id number] 2Admin Note: At work 3Admin Note: REFUSED 4Admin Note: 2009 OLD PCP 5Result Comment: will follow up with HCP Medications ARIPiprazole 2 mg oral tablet 2 mg, 1, tablet, By Mouth, Daily, # 30 tablet, Refills 0, Tot. Refills 0, Maintenance, 08/07/22 9:16:00 EST, Route to Pharmacy Electronically, [facility] #[id number], Partial fill upon patient request if the [...] Refills, Maintenance, 11/12/22 10:13:00 EDT, Ophth Ointment, [facility]/pharmacy #[id number], Partial fill upon patient request if the [...] tablet, 1 Refills, Maintenance, 09/20/22 15:42:00 EST, [facility] #[id number], 173, cm, 08/30/22 14:53:00 EST, Height, 84, kg, 08/27/22 17:57:00 EST, Dry Weight Start Date: 09/20/22 Status: Ordered Lantus Solostar Pen 100 units/mL subcutaneous solution = 10 units, Subcutaneous Injection, Daily at bedtime, for 30 days, # 10 mL, 0 Refills, Acute 12/24/22 16:05:00 EDT, 11/24/22 16:05:00 EDT, Solution, [facility]/pharmacy #[id number], Partial fill upon patient [...] s... Start Date: 11/29/22 Status: Ordered Pen [place], 31 G x 5 mm BD Ultra [...] Maintenance, 11/29/22 4:11:00 EDT, [facility]), Partial fill upon patient request if the prescription isfor a schedule II opioid drug., 173, cm, 11/28/22 1... Start Date: 11/29/22 Status: Ordered valsartan 160 mg oral tablet 160 mg, 1, tablet, By Mouth, Daily, # 90 tablet, Refills 3, Tot. Refills 3, Maintenance, 11/29/22 4:11:00 EDT, Route to Pharmacy Electronically, [facility]), Partial fill upon patient request [...] Team Personnel Name: Kelly Swanson RN Position: [facility] RN Member Role: Primary Care Nurse Name: Hoa Booth RN Position: [facility] RN Member Role: Primary Care Nurse Name: Raysa JAY, Manpreet Garcia Position: [facility] Primary Care Physician Member Role: PCP Address: Address: [address] [place] [address]- Name: Eliane Shelton RN Position: [facility] RN Member Role: Primary Care Nurse Name: Faith Dixon RN Position: [facility] RN Member Role: Primary Care Nurse Care Team Related Persons Name: ADINA PIERRE Address: [address] [place] [address] Name: KANDACE PIERRE Address: [address] [place] [address] Name: ZACK PIERRE Address: [address] [place] [address]
--- OUTSIDE RECORDS SUMMARY | 2023-04-11 06:05 | XMS_ITS | Continuity of Care Document ---
Author Name Unknown Organization [facility] Terry lt Address [address] [place] [address]- Care Team Providers Care Corn Husker Machine Operator Name Role Phone Raysa JAY, Manpreet Garcia Primary Care Physician [phone] [place] [facility] Date(s): 11/08/21 - 12/08/21 [facility] Adult [address] [place] [address]- Allergies, Adverse Reactions, Alerts Substance Reaction Severity [...] Patient Refuses 1Result Comment: [facility]-[id number] 2Admin Note: At work 3Admin Note: REFUSED [...] Refills, Maintenance, 09/26/21 17:25:00 EDT, Tablet, [facility]/pharmacy #[id number], Partial fill upon patient request if the prescription is for a schedule II opioid drug., 172, cm, 0... Start Date: 09/26/21 Status: Ordered meloxicam 15 mg oral tablet 1 tablet = 15 mg, By Mouth, Daily, PRN For pain, with food, # 30 tablet, 1 Refills, Maintenance, 11/27/21 14:40:00 EDT, Tablet, [facility] #[id number], Partial fill upon patient request if the [...] 11/27/21 14:40:00 EDT, Route to Pharmacy Electronically, [facility] #[id number], Partial fill upon patient request if the [...] 14:29:00 EDT, Route to Pharmacy Electronically, [facility]/pharmacy #[id number], Partial fill upon patient request... Start Date: [...]
--- OUTSIDE RECORDS SUMMARY | 2023-04-11 06:05 | XMS_ITS | Continuity of Care Document ---
Author Name Unknown Organization [facility] Address [address] [place] [address]- Care Team Providers Care Rum Processing Operator Name Role Phone Raysa JAY, Manpreet Garcia Primary Care Physician Encounter [facility] [place] Date(s): 11/27/22 - 12/27/22 [facility] Adult [address] [place] [address]- Allergies, Adverse Reactions, Alerts Substance Reaction Severity Status codeine loopy Active Immunizations Given and Recorded Vaccine Date Status Refusal Reason [id number] 12y+ bivalent booster vax 06/04/22 Recorded influenza [...] Give n Patient Refuses 1Result Comment: [facility]-[id number] 2Admin Note: At work 3Admin Note: REFUSED 4Admin Note: 2009 OLD PCP 5Result Comment: will follow up with HCP Medications ARIPiprazole 2 mg oral tablet 2 mg, 1, tablet, By Mouth, Daily, # 30 tablet, Refills 0, Tot. Refills 0, Maintenance, 08/07/22 9:16:00 EST, Route to Pharmacy Electronically, [facility] #[id number], Partial fill upon patient request if the [...] Refills, Maintenance, 11/12/22 10:13:00 EDT, Ophth Ointment, [facility]/pharmacy #[id number], Partial fill upon patient request if the [...] tablet, 1 Refills, Maintenance, 09/20/22 15:42:00 EST, [facility] #[id number], 173, cm, 08/30/22 14:53:00 EST, Height, 84, kg, 08/27/22 17:57:00 EST, Dry Weight Start Date: 09/20/22 Status: Ordered Lipitor 80 mg oral tablet 1 tablet = 80 mg, By Mouth, Daily, # 30 tablet, 0 Refills, Maintenance, 12/11/22 17:40:00 EDT, Tablet, [facility]/pharmacy #6411, Partial fill upon patient request if the [...] 12/16/22 13:17:00 EDT, Route to Pharmacy Electronically, [facility]/pharmacy #[id number], Partial fill upon patient requestif the prescription [...] Team Personnel Name: Kelly Swanson RN Position: [facility] SN RN Member Role: Primary Care Nurse Name: Hoa Booth RN Position: [facility] RN Member Role: Primary Care Nurse Name: Manpreet Tabares MD Position: [facility] Physician - Primary Care Member Role: PCP Address: Address: [address] [place] [id number] Name: Eliane Shelton RN Position: [facility] RN Member Role: Primary Care Nurse Name: Faith Dixon RN Position: [facility] RN Member Role: Primary Care Nurse Care Team Related Persons Name: ELODIA PIERREE Address: [address] [place] [address] Name: IGNACIO KANDACE Address: [address] [place] [address] Name: ZACK PIERRE Address: [address] [place] [address]
--- OUTSIDE RECORDS SUMMARY | 2023-04-11 06:06 | XMS_ITS | Continuity of Care Document ---
Author Name Unknown Organization [facility] lt Address [address] [place] [address]- Care Team Providers Care Special Officer Name Role Phone Manpreet Tabares MD Primary Care Physician [phone] Encounter [facility] [place] Date(s): 11/30/19 - 12/07/19 [facility] Adult [address] [place] [address]- [facility] Attending Physician: Manpreet Tabares MD Allergies, Adverse [...] Give n Patient Refuses 1Result Comment: [facility]-[id number] 2Admin Note: At work 3Admin Note: REFUSED [...] Refills, Maintenance, 08/03/19 11:44:00 EST, REC Powder, [facility]/pharmacy #[id number], test date 10/22/19, 240 mL By Mouth [...] 06/23/19 13:28:26 EST, Route to Pharmacy Electronically, [id number], [facility], 173, cm, 06/23/19 [...] oldest [Reference Range]: 1 Height 173 cm (11/30/19 10:25 AM) Social History Social History Type Response Smoking Status Never smoker entered on: 12/05/15 Sex
--- OUTSIDE RECORDS SUMMARY | 2023-04-11 06:06 | XMS_ITS | Continuity of Care Document ---
Author Name Unknown Organization [facility] Address [address] [place] [address]- Care Team Providers Care Bushing And Broach Operator Name Role Phone Raysa JAY, Manpreet Garcia Primary Care Physician [place] [facility] [place] 01/17/20 - 02/16/20 [facility] Adult [address] [place] [address]- [facility] Allergies, Adverse Reactions, Alerts Substance Reaction Severity [...] Patient Refuses 1Result Comment: [facility]-[id number] 2Admin Note: At work 3Admin Note: REFUSED [...] tablet, 0 Refills, Maintenance, 02/10/20 8:36:00 EDT, [facility] #[id number], 173, cm, 01/04/20 15:41:00 EDT, Height, 86.5, [...] Refills, Maintenance, 08/03/19 11:44:00 EST, REC Powder, [facility]/pharmacy #2071, test date 10/22/19, [...] 06/23/19 13:28:26 EST, Route to Pharmacy Electronically, [id number], [facility], 173, cm, 06/23/19 [...]
--- OUTSIDE RECORDS SUMMARY | 2023-04-11 06:06 | XMS_ITS | Continuity of Care Document ---
Author Name Unknown Organization [facility] Address [address] [place] [address]- Care Team Providers Care Modern And Contemporary Art Curator Name Role Phone Raysa JAY, Manpreet Garcia Primary Care Physician [place] [facility] [place]/22 [facility] Adult [address] [place] [address]- Allergies, Adverse Reactions, Alerts Substance Reaction Severity Status codeine loopy Active Immunizations Given and Recorded Vaccine Date Status Refusal Reason [id number] 12y+ bivalent booster vax 06/04/22 Recorded influenza [...] 1Result Comment: [facility]-[id number] 2Admin Note: At work 3Admin Note: REFUSED 4Admin Note: 2009 OLD PCP 5Result Comment: will follow up with HCP Medications ARIPiprazole 2 mg oral tablet 2 mg, 1, tablet, By Mouth, Daily, # 30 tablet, Refills 0, Tot. Refills 0, Maintenance, 08/07/22 9:16:00 EST, Route to Pharmacy Electronically, [facility] #[id number], Partial fill upon patient request if the [...] tablet, 1 Refills, Maintenance, 09/20/22 15:42:00 EST, [facility] #[id number], 173, cm, 08/30/22 14:53:00 EST, Height, 84, [...] 0 Refills, Maintenance, 09/03/22 16:31:00 EST, Tablet, [facility] #[id number], Partial fill upon patient request if theprescription is for a schedule II opioid drug., 173... Start Date: 09/03/22 Status: Ordered meclizine 25 mg oral tablet 1 tablet = 25 mg, By Mouth, 3 times a day, PRN as needed for dizziness, # 30 tablet, 0 Refills, Acute 09/25/22 18:00:00 EDT, 09/03/22 16:53:00 EST, [facility] #[id number], Partial fill upon patient request if the [...] each, 1 Refills, Maintenance, 05/24/22 11:14:00 EST, [facility] #[id number], Partial fill upon patient request if the prescription is for a schedule II opioid drug., 172, cm, 05/20/22 15:52:00 EST... Start Date: 05/24/22 Status: Ordered valsartan 160 mg oral tablet 160 mg, 1, tablet, By Mouth, Daily, # 90 tablet, Refills 1, Tot. Refills 1, Maintenance, 09/20/22 15:42:00 EST, Route to Pharmacy Electronically, [facility] #[id number], Partial fill upon patient request if the [...] Team Personnel Name: Kelly Swanson RN Position: [facility] SN RN Member Role: Primary Care Nurse Name: Hoa Booth RN Position: [facility] RN Member Role: Primary Care Nurse Name: Manpreet Tabares MD Position: [facility] Primary Care Physician Member Role: PCP Address: Address: [address] [place] [address]- Name: Eliane Shelton RN Position: [facility] RN Member Role: Primary Care Nurse Name: Faith Dixon RN Position: [facility] RN Member Role: Primary Care Nurse Care Team Related Persons Name: IGNACIO ADINA Address: home [address] [place] [address] Name: KANDACE PIERRE Address: home [address] [place] [address] Name: ZACK PIERRE Address: home [address] [place] [address]
--- OUTSIDE RECORDS SUMMARY | 2023-04-11 06:06 | XMS_ITS | Continuity of Care Document ---
Author Name Unknown Organization [facility] Terry lt Address [address] [place] [address]- Care Team Providers Care Drying Machine Operator Package Yarns Name Role Phone Raysa JAY, Manpreet Garcia Primary Care Physician [place] [facility] [place] 10[place]30/22 [facility] Adult [address] [place] [address]- Allergies, Adverse Reactions, Alerts Substance Reaction Severity Status codeine loopy Active Immunizations Given and Recorded Vaccine Date Status Refusal Reason [id number] 12y+ bivalent booster vax 06/04/22 Recorded influenza [...] Give n Patient Refuses 1Result Comment: [facility]-[id number] 2Admin Note: At work 3Admin Note: REFUSED 4Admin Note: 2009 OLD PCP 5Result Comment: will follow up with HCP Medications ARIPiprazole 2 mg oral tablet 2 mg, 1, tablet, By Mouth, Daily, # 30 tablet, Refills 0, Tot. Refills 0, Maintenance, 08/07/22 9:16:00 EST, Route to Pharmacy Electronically, [facility] #[id number], Partial fill upon patient request if the [...] tablet, 1 Refills, Maintenance, 09/20/22 15:42:00 EST, [facility] #[id number], 173, cm, 08/30/22 14:53:00 EST, Height, 84, [...] 0 Refills, Maintenance, 09/03/22 16:31:00 EST, Tablet, [facility] #[id number], Partial fill upon patient request if theprescription [...] each, 1 Refills, Maintenance, 05/24/22 11:14:00 EST, [facility] #[id number], Partial fill upon patient request if the prescription is for a schedule II opioid drug., 172, cm, 05/20/22 15:52:00 EST... Start Date: 05/24/22 Status: Ordered valsartan 160 mg oral tablet 160 mg, 1, tablet, By Mouth, Daily, # 90 tablet, Refills 1, Tot. Refills 1, Maintenance, 09/20/22 15:42:00 EST, Route to Pharmacy Electronically, [facility] #[id number], Partial fill upon patient request if the [...] Team Personnel Name: Kelly Swanson RN Position: [facility] SN RN Member Role: Primary Care Nurse Name: Hoa Booth RN Position: [facility] RN Member Role: Primary Care Nurse Name: Manpreet Tabares MD Position: [facility] Primary Care Physician Member Role: PCP Address: Address: [address] [place] [id number] Name: Eliane Shelton RN Position: [facility] RN Member Role: Primary Care Nurse Name: Faith Dixon RN Position: [facility] RN Member Role: Primary Care Nurse Care Team Related Persons Name: ADINA PIERRE Address: home [address] [place] [address] Name: KANDACE PIERRE Address: [address] [place] [address] Name: ZACK PIERRE Address: [address] [place] [address]
--- OUTSIDE RECORDS SUMMARY | 2023-04-11 06:06 | XMS_ITS | Continuity of Care Document ---
Author Name Unknown Organization [facility] Address [address] [place] [address]- Care Team Providers Care Wall Mirror Department Supervisor Name Role Phone Raysa JAY, Manpreet Garcia Primary Care Physician [phone] [place] [facility] [place]21 [facility] Adult [address] [place] [address]- Allergies, Adverse Reactions, Alerts Substance Reaction Severity [...] Not Give n Patient Refuses 1Result Comment: [facility]-[id number] 2Admin Note: At work 3Admin Note: REFUSED [...] 10/03/21 11:30:00 EDT, 09/19/21 11:30:00 EST, Tablet, [facility]/pharmacy #[id number], Partial fill upon patient request [...] [facility]) Active Degenerative joint disease - cervical [...]
--- OUTSIDE RECORDS SUMMARY | 2023-04-11 06:06 | XMS_ITS | Continuity of Care Document ---
Author Name Unknown Organization [facility] Address [address] [place] [address]- Care Team Providers Care Cigarette Tester Name Role Phone Raysa JAY, Manpreet Garcia Primary Care Physician En[place] [facility] [place] Date(s): 11/14/22 - 12/14/22 [facility] Adult [address] [place] [address]- Allergies, Adverse Reactions, Alerts Substance Reaction Severity Status codeine loopy Active Immunizations Given and Recorded Vaccine Date Status Refusal Reason [id number] 12y+ bivalent booster vax 06/04/22 Recorded influenza [...] n Patient Refuses 1Result Comment: [facility]-[id number] 2Admin Note: At work 3Admin Note: REFUSED 4Admin Note: 2009 OLD PCP 5Result Comment: will follow up with HCP Medications ARIPiprazole 2 mg oral tablet 2 mg, 1, tablet, By Mouth, Daily, # 30 tablet, Refills 0, Tot. Refills 0, Maintenance, 08/07/22 9:16:00 EST, Route to Pharmacy Electronically, [facility] #[id number], Partial fill upon patient request if the [...] Refills, Maintenance, 11/12/22 10:13:00 EDT, Ophth Ointment, [facility]/pharmacy #[id number], Partial fill upon patient request if the [...] tablet, 1 Refills, Maintenance, 09/20/22 15:42:00 EST, [facility] #[id number], 173, cm, 08/30/22 14:53:00 EST, Height, 84, kg, 08/27/22 17:57:00 EST, Dry Weight Start Date: 09/20/22 Status: Ordered Lantus Solostar Pen 100 units/mL subcutaneous solution = 10 units, Subcutaneous Injection, Daily at bedtime, for 30 days, # 10 mL, 0 Refills, Acute 12/24/22 16:05:00 EDT, 11/24/22 16:05:00 EDT, Solution, [facility]/pharmacy #[id number], Partial fill upon patient request if the prescription is for a schedule II opioid... Start Date: 11/24/22 Stop Date: 12/24/22 Status: Ordered Lipitor 80 mg oral tablet 1 tablet = 80 mg, By Mouth, Daily, # 30 tablet, 0 Refills, Maintenance, 12/11/22 17:40:00 EDT, Tablet, [facility]/pharmacy #[id number], Partial fill upon patient request [...] Route to Pharmacy Electronically, [facility]), Partial fillupon patient request if the prescription is for a s... Start Date: 11/29/22 Status: Ordered Pen Keyes, 31 G x 5 mm BD Ultra [...] Care Nurse Name: Leobardo INGRAM, Hoa Position: [facility] RN Member Role: Primary Care Nurse Name: Raysa JAY, Manpreet Garcia Position: [facility] Physician - Primary Care Member Role: PCP Address: Address: [address] [place] [address]- Name: Eliane Shelton RN Position: S RN Member Role: Primary Care Nurse Name: Faith Dixon RN Position: [facility] RN Member Role: Primary Care Nurse Care Team Related Persons Name: ADINA PIERRE Address: home [address] [place] [address] Name: KANDACE PIERRE Address: [address] [place] [address] Name: ZACK PIERRE Address: [address] [place] [address]
--- OUTSIDE RECORDS SUMMARY | 2023-04-11 06:06 | XMS_ITS | Continuity of Care Document ---
Author Name Unknown Organization [facility] Address [address] [place] [address]- Care Team Providers Care Home Performance Laborer Name Role Phone Raysa JAY, Manpreet Garcia Primary Care Physician [place] [facility] [place] 09/18/22 [facility] Adult [address] [place] [address]- Allergies, Adverse Reactions, Alerts Substance Reaction Severity Status codeine loopy Active Immunizations Given and Recorded Vaccine Date Status Refusal Reason [id number] 12y+ bivalent booster vax 06/04/22 Recorded influenza [...] Give n Patient Refuses 1Result Comment: [facility]-[id number] 2Admin Note: At work 3Admin Note: REFUSED 4Admin Note: 2009 OLD PCP 5Result Comment: will follow up with HCP Medications ARIPiprazole 2 mg oral tablet 2 mg, 1, tablet, By Mouth, Daily, # 30 tablet, Refills 0, Tot. Refills 0, Maintenance, 08/07/22 9:16:00 EST, Route to Pharmacy Electronically, [facility] #[id number], Partial fill upon patient request if the [...] 0 Refills, Maintenance, 09/03/22 16:31:00 EST, Tablet, [facility] #[id number], Partial fill upon patient request if theprescription is for a schedule II opioid drug., 173... Start Date: 09/03/22 Status: Ordered meclizine 25 mg oral tablet 1 tablet = 25 mg, By Mouth, 3 times a day, PRN as needed for dizziness, # 30 tablet, 0 Refills, Acute 09/25/22 18:00:00 EDT, 09/03/22 16:53:00 EST, [facility] #[id number], Partial fill upon patient request if the [...] each, 1 Refills, Maintenance, 05/24/22 11:14:00 EST, [facility] #[id number], Partial fill upon patient request if the prescription is for a schedule II opioid drug., 172, cm, 05/20/22 15:52:00 EST... Start Date: 05/24/22 Status: Ordered valsartan 160 mg oral tablet 160 mg, 1, tablet, By Mouth, Daily, # 90 tablet, Refills 0, Tot. Refills 0, Maintenance, 05/29/22 10:46:00 EST, Route to Pharmacy Electronically, [facility] #[id number], Partial fill upon patient request if the [...] Name: Kelly Swanson RN Position: [facility] RN Member Role: Primary Care Nurse Name: Hoa Booth RN Position: [facility] RN Member Role: Primary Care Nurse Name: Manpreet Tabares MD Position: [facility] Primary Care Physician Member Role: PCP Address: Address: [address] [place] [id number] Name: Eliane Shelton RN Position: [facility] RN Member Role: Primary Care Nurse Name: Faith Dixon RN Position: [facility] RN Member Role: Primary Care Nurse Care Team Related Persons Name: ADINA PIERRE Address: home [address] [place] [address] Name: KANDACE PIERRE Address: [address] [place] [address] Name: ZACK PIERRE Address: [address] [place] [address]
--- OUTSIDE RECORDS SUMMARY | 2023-04-11 06:06 | XMS_ITS | Continuity of Care Document ---
Author Name Unknown Organization [facility] Address [address] [place] [address]- Care Team Providers Care Senior Hydrogeologist Name Role Phone Manpreet Tabares MD Primary Care Physician [place] [facility] [place](s): 09/06/20 - 09/13/20 [facility] Adult [address] [place] [address]- Attending Physician: Manpreet Tabares MD Allergies, Adverse [...] Refuses 1Result Comment: [facility]-[id number] 2Admin Note: At work 3Admin Note: REFUSED [...] 09/06/20 11:12:00 EST, Route to Pharmacy Electronically, [facility]/pharmacy #[id number], Partial fill upon patient request [...] 0 Refills, Maintenance, 07/25/20 9:30:00 EST, [facility], 173, cm, 06/26/20 15:48:00 EST, Height, 86.5, kg, 06/04/19 13:20:00 EST, Dry Weight Start Date: 07/25/20 Status: Ordered NuLYTELY with Flavor Packs oral powder for reconstitution 240 mL, By Mouth, Every 10 minutes, # 1 each, 0 Refills, Maintenance, 08/03/19 11:44:00 EST, REC Powder, [facility]/pharmacy #[id number], test date 10/22/19, 240 mL By Mouth Every 10 minutes, 173, cm, 07/21/19 11:41:00 EST, Height, 86.5, kg, 06/04/19 13:20:00 EST,... Start Date: 08/03/19 Status: Ordered sitaGLIPtin 50 mg oral tablet 1 tablet = 50 mg, By Mouth, Daily, # 7 capsule, 0 Refills, Maintenance, 05/28/20 17:03:00 EST, [facility]/pharmacy #[id number], Partial fill upon patient request, 173, cm, 03/15/20 15:46:00 EDT, Height, 86.5, kg,06/04/19 13:20:00 EST, Dry Weight Start Date: 05/28/20 Status: Ordered Trulicity Pen 1.5 mg/0.5 mL subcutaneous solution = 1.5 mg, Subcutaneous Infusion, Every week, # 12 each, 3 Refills, Maintenance, 07/27/20 15:47:00 EST, [facility], Partial fill upon patient request [...] disorder(Confirmed) Active 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[facility] CKD(Confirmed) Active 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 Depression(Confirmed) Active Insulin long-term use(Confirmed) Active Erectile dysfunction(Confirmed) Active Rash(Confirmed) Active Insulin long-term use(Confirmed) Active Hypercholesterolemia(Confirmed) Active Ineffective self health management(Confirmed) Active Right flank pain(Confirmed) Active Uncontrolled type 2 diabetes mellitus(Confirmed) Active Diabetes mellitus type 2, uncontrolled(Confirmed) Active Vital Signs Most recent to oldest [Reference Range]: 1 Height 173 cm (09/06/20 10:55 AM) Weight 85.4 kg (09/06/20 10:55 AM) Oxygen Saturation [94-100 %] 95 % (09/06/20 10:55 AM) Pulse Rate [55-90 bpm] 82 bpm (09/06/20 10:55 AM) Body Mass Index [18.5-24.99] 28.53 *H* (09/06/20 10:55 AM) Blood Pressure [90-138/55-84 mm Hg] 110/ 80mm Hg (09/06/20 10:55 AM) Temperature [96.8-100.4 DegF] 98.5 DegF (09/06/20 10:55 AM) Blood pressure sites Arm, right (09/06/20 10:55 AM) Temperature Route Oral (09/06/20 10:55 AM) Social History Social History Type Response Smoking Status Never smoker entered on: 06/30/13 Sex
--- OUTSIDE RECORDS SUMMARY | 2023-04-11 06:06 | XMS_ITS | Continuity of Care Document ---
Author Name Unknown Organization [facility] Address [address] [place] [address]- Care Team Providers Care Web Marketing Manager Name Role Phone Raysa JAY, Manpreet Garcia Primary Care Physician [place] [facility] [place] Date(s): 12/28/21 - 01/04/22 [facility] Adult [address] [place] [address]- Attending Physician: Not on Staff, Attending MD [...] Refuses 1Result Comment: [facility]-[id number] 2Admin Note: At work 3Admin Note: REFUSED [...] Refills, Maintenance, 09/26/21 17:25:00 EDT, Tablet, [facility]/pharmacy #[id number], Partial fill upon patient request if the prescription is for a schedule II opioid drug., 172, cm, 0... Start Date: 09/26/21 Status: Ordered meloxicam 15 mg oral tablet 1 tablet = 15 mg, By Mouth, Daily, PRN For pain, with food, # 30 tablet, 1 Refills, Maintenance, 11/27/21 14:40:00 EDT, Tablet, [facility] #[id number], Partial fill upon patient request if the [...] 11/27/21 14:40:00 EDT, Route to Pharmacy Electronically, [facility] #[id number], Partial fill upon patient request if the [...] 14:29:00 EDT, Route to Pharmacy Electronically, [facility]/pharmacy #[id number], Partial fill upon patient request... Start Date: [...] oldest [Reference Range]: 1 Height 172 cm (12/28/21 8:08 AM) Weight 87.3 kg (12/28/21 8:08 AM) Oxygen Saturation [94-100 %] 98 % (12/28/21 8:08 AM) Pulse Rate [55-90 bpm] 85 bpm (12/28/21 8:08 AM) Body Mass Index [18.5-24.99] 29.51 *H* (12/28/21 8:08 AM) Blood Pressure [90-138/55-84 mm Hg] 137/ 78mm Hg (12/28/21 8:08 AM) Blood pressure sites Arm, left (12/28/21 8:08 AM) Weight Obtained Via Standing scale (12/28/21 8:08 AM) Social History Social History Type Response Smoking Status Never smoker entered on: 06/30/13 Sex
--- OUTSIDE RECORDS SUMMARY | 2023-04-11 06:06 | XMS_ITS | Continuity of Care Document ---
Author Name Unknown Organization [facility] Address [address] [place] [address]- Care Team Providers Care Vacuum Bottle Assembler Name Role Phone Raysa JAY, Manpreet Garcia Primary Care Physician [phone] [place] [facility] [place] Date(s): 12/06/22 - 01/05/23 [facility] Adult [address] [place] [address]- Allergies, Adverse Reactions, Alerts Substance Reaction Severity Status codeine loopy Active Immunizations Given and Recorded Vaccine Date Status Refusal Reason [id number] 12y+ bivalent booster vax 06/04/22 Recorded influenza [...] Refuses 1Result Comment: [facility]-[id number] 2Admin Note: At work 3Admin Note: REFUSED 4Admin Note: 2009 OLD PCP 5Result Comment: will follow up with HCP Medications ARIPiprazole 2 mg oral tablet 2 mg, 1, tablet, By Mouth, Daily, # 30 tablet, Refills 0, Tot. Refills 0, Maintenance, 08/07/22 9:16:00 EST, Route to Pharmacy Electronically, [facility] #[id number], Partial fill upon patient request if the [...] Refills, Maintenance, 11/12/22 10:13:00 EDT, Ophth Ointment, [facility]/pharmacy #[id number], Partial fill upon patient request if the [...] tablet, 1 Refills, Maintenance, 09/20/22 15:42:00 EST, [facility] #[id number], 173, cm, 08/30/22 14:53:00 EST, Height, 84, kg, 08/27/22 17:57:00 EST, Dry Weight Start Date: 09/20/22 Status: Ordered Lipitor 80 mg oral tablet 1 tablet = 80 mg, By Mouth, Daily, # 30 tablet, 0 Refills, Maintenance, 12/11/22 17:40:00 EDT, Tablet, [facility]/pharmacy #[id number], Partial fill upon patient request if the [...] Route to Pharmacy Electronically, [facility]), Partial fillupon patient request if [...] 12/16/22 13:17:00 EDT, Route to Pharmacy Electronically, [facility]/pharmacy #[id number], Partial fill upon patient requestif the prescription [...] Team Personnel Name: Kelly Swanson RN Position: [facility] SN RN Member Role: Primary Care Nurse Name: Hoa Booth RN Position: [facility] RN Member Role: Primary Care Nurse Name: Manpreet Tabares MD Position: [facility] Physician - Primary Care Member Role: PCP Address: Address: [address] [place] [id number] Name: Eliane Shelton RN Position: S RN Member Role: Primary Care Nurse Name: Faith Dixon RN Position: [facility] RN Member Role: Primary Care Nurse Care Team Related Persons Name: ADINA PIERRE Address: home [address] [place] [address] Name: IGNACIO KANDACE Address: [address] [place] [address] Name: ZACK PIERRE Address: [address] [place] [address]
--- OUTSIDE RECORDS SUMMARY | 2023-04-11 06:06 | XMS_ITS | Continuity of Care Document ---
Author Name Unknown Organization [facility] Address [address] [place] [address]- Care Team Providers Care Business System Consultant Name Role Phone Raysa JAY, Manpreet Garcia Primary Care Physician En[place] [facility] [place] Date(s): 10/01/21 - 10/08/21 [facility] Adult [address] [place] [address]- Encounter Diagnosis Vertigo(Discharge Diagnosis) - 10/01/21 Post concussion syndrome(Discharge Diagnosis) - 10/01/21 Attending Physician: Rayna Reyes Allergies, Adverse Reactions, Alerts Substance Reaction Severity [...] Patient Refuses 1Result Comment: [facility]-[id number] 2Admin Note: At work 3Admin Note: REFUSED [...] 09/26/21 17:25:00 EDT, Tablet, [facility]/pharmacy #[id number], Partial fill upon patient [...] 10/08/21 14:11:00 EDT, Route to Pharmacy Electronically, [facility]/pharmacy #[id number], Partial fill upon patient requestif the prescription [...] 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w [facility] CKD(Confirmed) Active 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 Depression(Confirmed) Active Insulin long-term use(Confirmed) Active Erectile dysfunction(Confirmed) Active Rash(Confirmed) Active Insulin long-term use(Confirmed) Active Hypercholesterolemia(Confirmed) Active Ineffective self health management(Confirmed) Active Right flank pain(Confirmed) Active Uncontrolled type 2 diabetes mellitus(Confirmed) Active Diabetes mellitus type 2, uncontrolled(Confirmed) Active Diagnosis Diagnosis Type Effective Dates Health Status Clinical Service Informant Vertigo Discharge Diagnosis 10/01/21 Post concussion syndrome Discharge Diagnosis 10/01/21 Vital Signs Most recent to oldest [Reference Range]: 1 2 Height 172 cm (10/01/21 3:26 PM) 172 cm (10/01/21 3:14 PM) Weight 82.0 kg (10/01/21 3:14 PM) Oxygen Saturation [94-100 %] 98 % (10/01/21 3:14 PM) Pulse Rate [55-90 bpm] 100 bpm *H* (10/01/21 3:14 PM) Body Mass Index [18.5-24.99] 27.72 *H* (10/01/21 3:14 PM) Blood Pressure [90-138/55-84 mm Hg] 130/ 78mm Hg (10/01/21 3:26 PM) 142/90mm Hg *H* (10/01/21 3:14 PM) Respiratory Rate [16-30 br/min] 16 br/mi n (10/01/21 3:14 PM) Temperature [96.8-100.4 DegF] 97.9 DegF (10/01/21 3:14 PM) Mode of Delivery (Oxygen) Room air (10/01/21 3:14 PM) Blood pressure sites Arm, right (10/01/21 3:26 PM) Arm, right (10/01/21 3:14 PM) Temperature Route Oral (10/01/21 3:14 PM) Weight Obtained Via Standing scale (10/01/21 3:14 PM) Social History Social History Type Response Smoking Status Never smoker entered on: 06/30/13 Sex
--- OUTSIDE RECORDS SUMMARY | 2023-04-11 06:06 | XMS_ITS | Continuity of Care Document ---
Author Name Unknown Organization [facility] Terry lt Address [address] [place] [address]- Care Team Providers Care House Painter Name Role Phone Manpreet Tabares MD Primary Care Physician Encounter [facility] [place] Date(s): 04/19/22 - 04/26/22 [facility] Adult [address] [place] [address]- Attending Physician: Manpreet Tabares MD Allergies, Adverse [...] Refuses 1Result Comment: [facility]-[id number] 2Admin Note: At work 3Admin Note: REFUSED [...] 11, Tot. Refills 11, Maintenance, Use with [facility] to test bloodsugars tid for E11.9, 04/23/22 [...] 0 Refills, Maintenance, 04/05/22 15:56:00 EDT, Tablet, [facility] #[id number], Partial fill upon patient request if the [...] each, 1 Refills, Maintenance, 01/07/22 15:37:00 EDT, [facility] #[id number], Partial fill upon patient request if the [...] [Reference Range]: 1 2 Height 172 cm (04/19/22 3:49 PM) 172 cm (04/19/22 3:41 PM) Weight 80.0 kg (04/19/22 3:41 PM) Oxygen Saturation [94-100 %] 98 % (04/19/22 3:41 PM) Pulse Rate [55-90 bpm] 92 bpm *H* (04/19/22 3:41 PM) Body Mass Index [18.5-24.99 kg/m2] 27.04 kg/m2 *H* (04/19/22 3:41 PM) Blood Pressure [90-138/55-84 mm Hg] 153/ 82mm Hg *H* (04/19/22 3:49 PM) 146/85mm Hg *H* (04/19/22 3:41 PM) Temperature [96.8-100.4 DegF] 98.4 DegF (04/19/22 3:41 PM) Blood pressure sites Arm, left (04/19/22 3:49 PM) Arm, left (04/19/22 3:41 PM) Temperature Route Oral (04/19/22 3:41 PM) Weight Obtained Via Standing scale (04/19/22 3:41 PM) Social History Social History Type Response Smoking Status Never smoker entered on: 06/30/13 Sex Patient Care team information Personnel Name: Raysa JAY, Manpreet Garcia Address: Address: [address] [place] [address]-
--- OUTSIDE RECORDS SUMMARY | 2023-04-11 06:06 | XMS_ITS | Continuity of Care Document ---
Author Name Unknown Organization [facility] Terry lt Address [address] [place] [address]- Care Team Providers Care Television Antenna Installer Name Role Phone Manpreet Tabares MD Primary Care Physician [place] [facility] [place]22 [place] 06/18/22 [facility] Adult [address] [place] [address]- Attending Physician: Manpreet Tabares MD Allergies, Adverse [...] 1Result Comment: [facility]-[id number] 2Admin Note: At work 3Admin Note: REFUSED [...] 11, Tot. Refills 11, Maintenance, Use with [facility] to test bloodsugars tid for E11.9, 04/23/22 [...] 0 Refills, Maintenance, 04/05/22 15:56:00 EDT, Tablet, [facility] #[id number], Partial fill upon patient request if the prescription is for a schedule II opioid drug. refill from PCP, 172, c... Start Date: 04/05/22 Stop Date: 05/05/22 Status: Ordered Metoprolol Tartrate 25 mg oral tablet 1 tablet = 25 mg, By Mouth, 2 times a day, # 60 tablet, 2 Refills, Maintenance, 05/29/22 13:45:00 EST, Tablet, [facility] #[id number], Partial fill upon patient request if the prescription is for a schedule II opioid drug. refill from PCP, 174, c... Start Date: 05/29/22 Stop Date: 08/27/22 Status: Ordered Trulicity Pen 1.5 mg/0.5 mL subcutaneous solution = 1.5 mg, Subcutaneous Infusion, Every week, # 12 each, 1 Refills, Maintenance, 05/24/22 11:14:00 EST, [facility] #[id number], Partial fill upon patient request if the prescription is for a schedule II opioid drug., 172, cm, 05/20/22 15:52:00 EST... Start Date: 05/24/22 Status: Ordered valsartan 160 mg oral tablet 160 mg, 1, tablet, By Mouth, Daily, # 90 tablet, Refills 0, Tot. Refills 0, Maintenance, 05/29/22 10:46:00 EST, Route to Pharmacy Electronically, [facility] #[id number], Partial fill upon patient request if the [...] recent to oldest [Reference Range]: 1 Height 174 cm (06/11/22 4:23 PM) Weight 86.3 kg (06/11/22 4:23 PM) Oxygen Saturation [94-100 %] 98 % (06/11/22 4:23 PM) Pulse Rate [55-90 bpm] 92 bpm *H* (06/11/22 4:23 PM) Body Mass Index [18.5-24.99 kg/m2] 28.5 kg/m2 *H* (06/11/22 4:23 PM) Blood Pressure [90-138/55-84 mm Hg] 130/ 84mm Hg (06/11/22 4:23 PM) Mode of Delivery (Oxygen) Room air (06/11/22 4:23 PM) Blood pressure sites Arm, left (06/11/22 4:23 PM) Weight Obtained Via Standing scale (06/11/22 4:23 PM) Social History Social History Type Response Smoking Status Never smoker entered on: 06/30/13 Sex Patient Care team information Care Team Personnel Name: Kelly Swanson RN Position: [facility] SN RN Member Role: Primary Care Nurse Name: Hoa Booth RN Position: [facility] RN Member Role: Primary Care Nurse Name: Manpreet Tabares MD Position: [facility] Primary Care Physician Member Role: PCP Address: Address: [address] [place] [address]- Care Team Related Persons Name: ADINA PIERRE Address: home [address] [place] [address] Name: KANDACE PIERRE Address: home [address] [place] [address] Name: ZACK PIERRE Address: [address] [place] [address]
--- OUTSIDE RECORDS SUMMARY | 2023-04-11 06:06 | XMS_ITS | Continuity of Care Document ---
Author Name Unknown Organization [facility] Terry lt Address [address] [place] [address]- Care Team Providers Care Personal Fitness Manager Name Role Phone Raysa JAY, Manpreet Garcia Primary Care Physician [phone] En[place] [facility] [place] Date(s): 08/28/21 - 09/27/21 [facility] Adult [address] [place] [address]- Allergies, Adverse Reactions, Alerts Substance Reaction Severity [...] Give n Patient Refuses 1Result Comment: [facility]-[id number] 2Admin Note: At work 3Admin Note: REFUSED [...] Refills, Maintenance, 09/26/21 17:25:00 EDT, Tablet, [facility]/pharmacy #[id number], Partial fill upon patient request if the prescription is for a schedule II opioid drug., 172, cm, 0... Start Date: 09/26/21 Status: Ordered meclizine 12.5 mg oral tablet 1 tablet = 12.5 mg, By Mouth, 3 times a day, PRN for dizziness, for 14 days, # 45 tablet, 0 Refills, Acute 10/03/21 11:30:00 EDT, 09/19/21 11:30:00 EST, Tablet, [facility]/pharmacy #[id number], Partial fill upon patient request [...] Active 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w [facility] CKD(Confirmed) Active Degenerative joint disease - [...]
--- OUTSIDE RECORDS SUMMARY | 2023-04-11 06:06 | XMS_ITS | Continuity of Care Document ---
Author Name Unknown Organization [facility] Terry lt Address [address] [place] [address]- Care Team Providers Care Florist Supplies Salesperson Name Role Phone Raysa JAY, Manpreet Garcia Primary Care Physician [phone] [place] [facility] Date(s): 06/07/22 - 07/07/22 [facility] Adult [address] [place] [address]- Allergies, Adverse Reactions, Alerts Substance Reaction Severity [...] Refuses 1Result Comment: [facility]-[id number] 2Admin Note: At work 3Admin Note: REFUSED [...] 11, Tot. Refills 11, Maintenance, Use with [facility] to test bloodsugars tid for E11.9, 04/23/22 [...] 0 Refills, Maintenance, 04/05/22 15:56:00 EDT, Tablet, [facility] #[id number], Partial fill upon patient request if the prescription is for a schedule II opioid drug. refill from PCP, 172, c... Start Date: 04/05/22 Stop Date: 05/05/22 Status: Ordered Metoprolol Tartrate 25 mg oral tablet 1 tablet = 25 mg, By Mouth, 2 times a day, # 60 tablet, 2 Refills, Maintenance, 05/29/22 13:45:00 EST, Tablet, [facility] #[id number], Partial fill upon patient request if the prescription is for a schedule II opioid drug. refill from PCP, 174, c... Start Date: 05/29/22 Stop Date: 08/27/22 Status: Ordered Trulicity Pen 1.5 mg/0.5 mL subcutaneous solution = 1.5 mg, Subcutaneous Infusion, Every week, # 12 each, 1 Refills, Maintenance, 05/24/22 11:14:00 EST, [facility] #[id number], Partial fill upon patient request if the prescription is for a schedule II opioid drug., 172, cm, 05/20/22 15:52:00 EST... Start Date: 05/24/22 Status: Ordered valsartan 160 mg oral tablet 160 mg, 1, tablet, By Mouth, Daily, # 90 tablet, Refills 0, Tot. Refills 0, Maintenance, 05/29/22 10:46:00 EST, Route to Pharmacy Electronically, [facility] #[id number], Partial fill upon patient request if the [...] Nurse Name: Manpreet Tabares MD Position: [facility] Primary Care Physician Member Role: PCP Address: Address: [address] [place] [address]- Care Team Related Persons Name: ADINA PIERRE Address: home [address] [place] [address] Name: KANDACE PIERRE Address: home [address] [place] [address] Name: ZACK PIERRE Address: [address] [place] [address]
--- OUTSIDE RECORDS SUMMARY | 2023-04-11 06:06 | XMS_ITS | Continuity of Care Document ---
Author Name Unknown Organization [facility] Terry Address [address] [place] [address]- Care Team Providers Care Bulk Clerk Name Role Phone Raysa JAY, Manpreet Garcia Primary Care Physician Encounter [facility] Date(s): 03/15/20 - 04/14/20 [facility] [place] Adult [address] [place] [address]- [facility] Allergies, Adverse Reactions, Alerts Substance Reaction Severity [...] Not Give n Patient Refuses 1Result Comment: [facility]-[id number] 2Admin Note: At work 3Admin Note: REFUSED [...] tablet, 0 Refills, Maintenance, 02/10/20 8:36:00 EDT, [facility][id number], 173, cm, 01/04/20 15:41:00 EDT, Height, 86.5, [...] Refills, Maintenance, 08/03/19 11:44:00 EST, REC Powder, [facility]/pharmacy #[id number], test date 10/22/19, 240 mL By Mouth Every 10 minutes, 173, cm, 07/21/19 11:41:00 EST, Height, 86.5, kg, 06/04/19 13:20:00 EST,... Start Date: 08/03/19 Status: Ordered valsartan 80 mg oral tablet 80 mg, 1, tablet, By Mouth, Daily, # 90 tablet, Refills 3, Tot. Refills 3, Maintenance, 06/23/19 13:28:26 EST, Route to Pharmacy Electronically, [id number], [facility], 173, cm, 06/23/19 12:58:42 EST, Hei... Start Date: 06/23/19 Status: Ordered Wellbutrin = 450 mg, By Mouth, Daily, 0 Refills, Maintenance, 06/03/19 18:11:12 EST Start Date: 06/03/19 Status: Ordered Problem List Condition Effective Dates Status Health Status Inform ant Benign hypertension(Confirmed) Active Borderline personality disorder(Confirmed) Active 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w [facility] CKD(Confirmed) Active Degenerative joint disease [...]
--- OUTSIDE RECORDS SUMMARY | 2023-04-11 06:06 | XMS_ITS | Continuity of Care Document ---
Author Name Unknown Organization [facility] Terry Address [address] [place] [address]- Care Team Providers Care Recreational Programs Director Name Role Phone Manpreet Tabares MD Primary Care Physician [place] [facility] [place] 07/27/19 - 11/24/19 [facility] Adult [address] [place] [address]- [facility] Attending Physician: Manpreet Tabares MD Allergies, Adverse [...] 1Result Comment: [facility]-[id number] 2Admin Note: At work 3Admin Note: REFUSED [...] Refills, Maintenance, 08/03/19 11:44:00 EST, REC Powder, [facility]/pharmacy #[id number], test date 10/22/19, 240 mL By [...] 06/23/19 13:28:26 EST, Route to Pharmacy Electronically, [id number], [facility], 173, cm, 06/23/19 [...]
--- OUTSIDE RECORDS SUMMARY | 2023-04-11 06:06 | XMS_ITS | Continuity of Care Document ---
Author Name Unknown Organization [facility] Terry lt Address [address] [place] [address]- Care Team Providers Care Product Line Manager Name Role Phone Raysa JAY, Manpreet Garcia Primary Care Physician [phone] [place] [facility] [place] 10/12/21 - 11/11/21 [facility] Adult [address] [place] [address]- Allergies, Adverse Reactions, Alerts Substance Reaction Severity [...] Patient Refuses 1Result Comment: [facility]-[id number] 2Admin Note: At work 3Admin Note: REFUSED [...] 0 Refills, Maintenance, 09/26/21 17:25:00 EDT, Tablet, [facility]/pharmacy #[id number], Partial fill upon [...] 11/09/21 14:29:00 EDT, Route to Pharmacy Electronically, [facility]/pharmacy #[id number], Partial fill upon patient request... 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[facility] CKD(Confirmed) Active Degenerative joint disease - [...]
--- OUTSIDE RECORDS SUMMARY | 2023-04-11 06:06 | XMS_ITS | Continuity of Care Document ---
Author Name Unknown Organization [facility] Terry lt Address [address] [place] [address]- Care Team Providers Care Furnace Door Tender Name Role Phone Manpreet Tabares MD Primary Care Physician [phone] [id number] Date(s): 06/26/20 - 07/03/[address] [facility] [address] [place] [address]- Encounter Diagnosis Depression(Discharge Diagnosis) - 06/26/20 Hypercholesterolemia(Discharge Diagnosis) - 06/26/20 Stiffness of hand joint(Discharge Diagnosis) - 06/26/20 Attending Physician: Manpreet Tabares MD Allergies, Adverse [...] NAMED [facility]-[id number] 2Admin Note: At work 3Admin Note: REFUSED [...] Refills, Maintenance, 08/03/19 11:44:00 EST, REC Powder, [facility]/pharmacy #[id number], test date 10/22/19, 240 mL By Mouth Every 10 minutes, 173, cm, 07/21/19 11:41:00 EST, Height, 86.5, kg, 06/04/19 13:20:00 EST,... Start Date: 08/03/19 Status: Ordered sitaGLIPtin 50 mg oral tablet 1 tablet = 50 mg, By Mouth, Daily, # 7 capsule, 0 Refills, Maintenance, 05/28/20 17:03:00 EST, [facility] #[id number], Partial fill upon patient request, 173, cm, 03/15/20 15:46:00 EDT, Height, 86.5, kg,06/04/19 13:20:00 EST, Dry Weight Start Date: 05/28/20 Status: Ordered Trulicity Pen 0.75 mg/0.5 mL subcutaneous solution = 0.75 mg, Subcutaneous Infusion, Every week, # 4 each, 5 Refills, Maintenance, 06/26/20 16:12:00 EST, [id number], Partial fill upon patient request if the prescription is for a schedule II opioid drug., 173, cm, 06/26/20 15:48:00 EST, Height,... Start Date: 06/26/20 Status: Ordered valsartan 80 mg oral tablet 80 mg, 1, tablet, By Mouth, Daily, # 90 tablet, Refills 3, Tot. Refills 3, Maintenance, 06/23/19 13:28:26 EST, Route to Pharmacy Electronically, [id number], [facility], 173, cm, 06/23/19 12:58:42 EST, Hei... Start Date: 06/23/19 Status: Ordered Wellbutrin = 450 mg, By Mouth, Daily, 0 Refills, Maintenance, 06/03/19 18:11:12 EST Start Date: 06/03/19 Status: Ordered Problem List Condition Effective Dates Status Health Status Inform ant Benign hypertension(Confirmed) Active Borderline personality disorder(Confirmed) Active 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w [facility] CKD(Confirmed) Active 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 Depression(Confirmed) Active Insulin long-term use(Confirmed) Active Erectile dysfunction(Confirmed) Active Insulin long-term use(Confirmed) Active Hypercholesterolemia(Confirmed) Active Ineffective self health management(Confirmed) Active Uncontrolled type 2 diabetes mellitus(Confirmed) Active Diabetes mellitus type 2, uncontrolled(Confirmed) Active Diagnosis Diagnosis Type Effective Dates Health Status Clinical Service Informant Depression Discharge Diagnosis 06/26/20 Hypercholesterolemia Discharge Diagnosis 06/26/20 Stiffness of hand joint Discharge Diagnosis 06/26/20 Vital Signs Most recent to oldest [Reference Range]: 1 Height 173 cm (06/26/20 3:48 PM) Weight 88.1 kg (06/26/20 3:48 PM) Oxygen Saturation [94-100 %] 97 % (06/26/20 3:48 PM) Pulse Rate [55-90 bpm] 94 bpm *H* (06/26/20 3:48 PM) Body Mass Index [18.5-24.99] 29.44 *H* (06/26/20 3:48 PM) Blood Pressure [90-138/55-84 mm Hg] 130/ 90mm Hg (06/26/20 3:48 PM) Temperature [96.8-100.4 DegF] 98.8 DegF (06/26/20 3:48 PM) Blood pressure sites Arm, right (06/26/20 3:48 PM) Temperature Route Oral (06/26/20 3:48 PM) Weight Obtained Via Standing scale (06/26/20 3:48 PM) Social History Social History Type Response Smoking Status Never smoker entered on: 12/05/15 Sex
--- OUTSIDE RECORDS SUMMARY | 2023-04-11 06:06 | XMS_ITS | Continuity of Care Document ---
Author Name Unknown Organization [facility] Terry lt Address [address] [place] [address]- Care Team Providers Care Inspector Assemblies And Installations Name Role Phone Raysa JAY, Manpreet Garcia Primary Care Physician [place] [facility] [place] 09[place]30/22 - 10/30/22 [facility] Adult [address] [place] [address]- Allergies, Adverse Reactions, Alerts Substance Reaction Severity Status codeine loopy Active Immunizations Given and Recorded Vaccine Date Status Refusal Reason [id number] 12y+ bivalent booster vax 06/04/22 Recorded influenza [...] Refuses 1Result Comment: [facility]-[id number] 2Admin Note: At work 3Admin Note: REFUSED 4Admin Note: 2009 OLD PCP 5Result Comment: will follow up with HCP Medications ARIPiprazole 2 mg oral tablet 2 mg, 1, tablet, By Mouth, Daily, # 30 tablet, Refills 0, Tot. Refills 0, Maintenance, 08/07/22 9:16:00 EST, Route to Pharmacy Electronically, [facility] #[id number], Partial fill upon patient request if the [...] tablet, 1 Refills, Maintenance, 09/20/22 15:42:00 EST, [facility] #[id number], 173, cm, 08/30/22 14:53:00 EST, Height, 84, [...] 0 Refills, Maintenance, 09/03/22 16:31:00 EST, Tablet, [facility] #[id number], Partial fill upon patient request if theprescription [...] each, 1 Refills, Maintenance, 05/24/22 11:14:00 EST, [facility] #[id number], Partial fill upon patient request if the prescription is for a schedule II opioid drug., 172, cm, 05/20/22 15:52:00 EST... Start Date: 05/24/22 Status: Ordered valsartan 160 mg oral tablet 160 mg, 1, tablet, By Mouth, Daily, # 90 tablet, Refills 1, Tot. Refills 1, Maintenance, 09/20/22 15:42:00 EST, Route to Pharmacy Electronically, [facility] #[id number], Partial fill upon patient request if the [...] Team Personnel Name: Kelly Swanson RN Position: [facility] SN RN Member Role: Primary Care Nurse Name: Hoa Booth RN Position: S RN Member Role: Primary Care Nurse Name: Manpreet Tabares MD Position: [facility] Primary Care Physician Member Role: PCP Address: Address: [address] [place] [id number] Name: Eliane Shelton RN Position: S RN Member Role: Primary Care Nurse Name: Faith Dixon RN Position: [facility] RN Member Role: Primary Care Nurse Care Team Related Persons Name: ADINA PIERRE Address: home [address] [place] [address] Name: KANDACE PIERRE Address: [address] [place] [address] Name: ZACK PIERRE Address: [address] [place] [address]
--- OUTSIDE RECORDS SUMMARY | 2023-04-11 06:06 | XMS_ITS | Continuity of Care Document ---
Author Name Unknown Organization [facility] Terry lt Address [address] [place] [address]- Care Team Providers Care Through Freight Engineer Name Role Phone Manpreet Tabares MD Primary Care Physician [phone] Encounter [facility] Date(s): 07/21/19 - 07/28/19 [facility] Adult [address] [place] [address]- [facility] Attending Physician: Manpreet Tabares MD Allergies, [...] Patient Refuses 1Result Comment: [facility]-[id number] 2Admin Note: At work 3Admin Note: REFUSED [...] 06/23/19 13:28:26 EST, Route to Pharmacy Electronically, [id number], [facility], 173, cm, 06/23/19 12:58:42 EST, Hei... Start Date: 06/23/19 Status: Ordered Wellbutrin = 450 mg, By Mouth, Daily, 0 Refills, Maintenance, 06/03/19 18:11:12 EST Start Date: 06/03/19 Status: Ordered Problem List Condition Effective Dates Status Health Status Inform ant Benign hypertension(Confirmed) Active Borderline personality disorder(Confirmed) Active 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w 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 Depression(Confirmed) Active Diabetes mellitus(Confirmed) Active Insulin long-term use(Confirmed) Active Erectile dysfunction(Confirmed) Active Insulin long-term use(Confirmed) Active Hypercholesterolemia(Confirmed) Active Ineffective self health management(Confirmed) Active Uncontrolled type 2 diabetes mellitus(Confirmed) Active Vital Signs Most recent to oldest [Reference Range]: 1 2 Height 173 cm (07/21/19 11:41 AM) 173 cm (07/21/19 11:19 AM) Weight 86.36 kg (07/21/19 11:19 AM) Oxygen Saturation [94-100 %] 96 % (07/21/19 11:19 AM) Pulse Rate [55-90 bpm] 101 bpm *H* (07/21/19 11:19 AM) Body Mass Index [18.5-24.99] 28.85 *H* (07/21/19 11:19 AM) Blood Pressure [90-138/55-84 mm Hg] 120/ 82mm Hg (07/21/19 11:41 AM) 128/90mm Hg (07/21/19 11:19 AM) Mode of Delivery (Oxygen) Room air (07/21/19 11:19 AM) Blood pressure sites Arm, left (07/21/19 11:19 AM) Weight Obtained Via Standing scale (07/21/19 11:19 AM) Social History Social History Type Response Smoking Status Never smoker entered on: 12/05/15 Sex
--- OUTSIDE RECORDS SUMMARY | 2023-04-11 06:06 | XMS_ITS | Continuity of Care Document ---
Author Name Unknown Organization [facility] Terry lt Address [address] [place] [address]- Care Team Providers Care Paper Twister Name Role Phone Raysa JAY, Manpreet Garcia Primary Care Physician [place] [facility] [place] 12[place]19[place]21 - 01/18/22 [facility] Adult [address] [place] [address]- Allergies, Adverse Reactions, Alerts Substance Reaction Severity [...] Not Give n Patient Refuses 1Result Comment: [facility]-[id number] 2Admin Note: At work 3Admin Note: REFUSED [...] each, 1 Refills, Maintenance, 01/07/22 15:37:00 EDT, [facility] #[id number], Partial fill upon patient request if the prescription is for a schedule II opioid drug., 172, cm, 12/28/21 8:08:00 EDT,... Start Date: 01/07/22 Status: Ordered valsartan 80 mg oral tablet 80 mg, 1, tablet, By Mouth, Daily, please call to schedule physical with Dr. Tabares, # 90 tablet, Refills 0, Tot. Refills 0, Maintenance, 11/09/21 14:29:00 EDT, Route to Pharmacy Electronically, [facility]/pharmacy #[id number], Partial fill upon patient request... 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[facility] CKD(Confirmed) Active Degenerative joint disease [...]
--- OUTSIDE RECORDS SUMMARY | 2023-04-11 06:06 | XMS_ITS | Continuity of Care Document ---
Author Name Unknown Organization [facility] Terry Address [address] [place] [address]- Care Team Providers Care Operations Supervisor Chemical Cleaning Name Role Phone Raysa JAY, Manpreet Garcia Primary Care Physician [phone] Encounter [facility] [place] Date(s): 02/02/20 - 03/03/20 [facility] [place] [address] [place] [address]- [facility] Allergies, Adverse Reactions, Alerts Substance [...] n Patient Refuses 1Result Comment: [facility]-[id number] 2Admin Note: At work 3Admin Note: REFUSED [...] tablet, 0 Refills, Maintenance, 02/10/20 8:36:00 EDT, [facility] #[id number], 173, cm, 01/04/20 15:41:00 EDT, Height, 86.5, [...] Refills, Maintenance, 08/03/19 11:44:00 EST, REC Powder, [facility]/pharmacy #[id number], test date 10/22/19, 240 [...] 06/23/19 13:28:26 EST, Route to Pharmacy Electronically, [id number], [facility], 173, cm, 06/23/19 [...]
--- OUTSIDE RECORDS SUMMARY | 2023-04-11 06:06 | XMS_ITS | Continuity of Care Document ---
Author Name Unknown Organization [facility] Terry [place] Address [address] [place] [address]- Care Team Providers Care Electric Meter Installer Helper Name Role Phone Raysa JAY, Manpreet Garcia Primary Care Physician [phone] Encounter [facility] Date(s): 05/23/22 - 06/22/22 [facility] Adult [address] [place] [address]- Allergies, Adverse Reactions, Alerts Substance Reaction Severity [...] Give n Patient Refuses 1Result Comment: [facility]-[id number] 2Admin Note: At work 3Admin Note: REFUSED [...] 11, Tot. Refills 11, Maintenance, Use with [place] to test bloodsugars tid for E11.9, 04/23/22 [...] 0 Refills, Maintenance, 04/05/22 15:56:00 EDT, Tablet, [facility] #[id number], Partial fill upon patient request if the prescription is for a schedule II opioid drug. refill from PCP, 172, c... Start Date: 04/05/22 Stop Date: 05/05/22 Status: Ordered Metoprolol Tartrate 25 mg oral tablet 1 tablet = 25 mg, By Mouth, 2 times a day, # 60 tablet, 2 Refills, Maintenance, 05/29/22 13:45:00 EST, Tablet, [facility] #[id number], Partial fill upon patient request if the prescription is for a schedule II opioid drug. refill from PCP, 174, c... Start Date: 05/29/22 Stop Date: 08/27/22 Status: Ordered Trulicity Pen 1.5 mg/0.5 mL subcutaneous solution = 1.5 mg, Subcutaneous Infusion, Every week, # 12 each, 1 Refills, Maintenance, 05/24/22 11:14:00 EST, [facility] #[id number], Partial fill upon patient request if the prescription is for a schedule II opioid drug., 172, cm, 05/20/22 15:52:00 EST... Start Date: 05/24/22 Status: Ordered valsartan 160 mg oral tablet 160 mg, 1, tablet, By Mouth, Daily, # 90 tablet, Refills 0, Tot. Refills 0, Maintenance, 05/29/22 10:46:00 EST, Route to Pharmacy Electronically, [facility] #[id number], Partial fill upon patient request if the [...] Physician Member Role: PCP Address: Address: [address] [place] [address]- Care Team Related Persons Name: ADINA PIERRE Address: home [address] [place] [address] Name: KANDACE PIERRE Address: home [address] [place] [address] Name: ZACK PIERRE Address: home [address] [place] [address]
--- OUTSIDE RECORDS SUMMARY | 2023-04-11 06:06 | XMS_ITS | Continuity of Care Document ---
Author Name Unknown Organization [facility] Terry lt Address [address] [place] [address]- Care Team Providers Care Computer Field Technician Name Role Phone Manpreet Tabares MD Primary Care Physician [id number] Date(s): 09/06/20 - 01/03/21 [facility] Adult [address] [place] [address]- Attending Physician: Manpreet Tabares MD Allergies, Adverse [...] 1Result Comment: [facility]-[id number] 2Admin Note: At work 3Admin Note: REFUSED 4Admin Note: 2008 OLD PCP 5Result Comment: will follow up with HCP Medications ibuprofen 800 mg oral tablet 800 mg, 1, tablet, By Mouth, Every 8 hours, # 30 tablet, Refills 1, Tot. Refills 1, Acute 01/20/21 8:56:00 EDT, 12/21/20 8:56:00 EDT, Route to Pharmacy Electronically, [facility]/pharmacy #[id number], Partial fill upon patient request if the [...] 3 Refills, Maintenance, 12/25/20 16:20:00 EDT, [facility], 172, cm, 12/21/20 8:34:00 EDT, Height, 81, kg, 09/15/20 12:34:00 EST, Dry Weight Start Date: 12/25/20 Status: Ordered NuLYTELY with Flavor Packs oral powder for reconstitution 240 mL, By Mouth, Every 10 minutes, # 1 each, 0 Refills, Maintenance, 08/03/19 11:44:00 EST, REC Powder, [facility]/pharmacy #[id number], test date 10/22/19, 240 mL By Mouth Every 10 minutes, 173, cm, 07/21/19 11:41:00 EST, Height, 86.5, kg, 06/04/19 13:20:00 EST,... Start Date: 08/03/19 Status: Ordered Trulicity Pen 1.5 mg/0.5 mL subcutaneous solution = 1.5 mg, Subcutaneous Infusion, Every week, # 12 each, 3 Refills, Maintenance, 07/27/20 15:47:00 EST, [facility], Partial fill upon patient request if the prescription is for a schedule II opioid drug., 173, cm, 07/25/20 16:14:00 E... Start Date: 07/27/20 Status: Ordered valsartan 80 mg oral tablet 80 mg, 1, tablet, By Mouth, Daily, # 90 tablet, Refills 1, Tot. Refills 1, Maintenance, 07/25/20 9:30:00 EST, Route to Pharmacy Electronically, [facility], 173, cm, 06/26/20 15:48:00 EST, [...]
--- OUTSIDE RECORDS SUMMARY | 2023-04-11 06:06 | XMS_ITS | Continuity of Care Document ---
Author Name Unknown Organization [facility] Terry lt Address [address] [place] [address]- Care Team Providers Care Price Checker Name Role Phone Raysa JAY, Manpreet Garcia Primary Care Physician Encounter [facility] Date(s): 02/05/22 - 03/07/22 [facility] Adult [address] [place] [address]- Allergies, Adverse Reactions, Alerts Substance Reaction Severity [...] 1Result Comment: [facility]-[id number] 2Admin Note: At work 3Admin Note: REFUSED [...] tablet, 0 Refills, Maintenance, 02/05/22 10:43:00 EDT, [facility] #[id number], Partial fill upon patient request if the [...] each, 1 Refills, Maintenance, 01/07/22 15:37:00 EDT, [facility] #[id number], Partial fill upon patient request if the [...] Active 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w [facility] CKD(Confirmed) Active Degenerative joint disease [...] Team Personnel Name: Manpreet Tabares MD Address: [address] [place] [id number]-
--- OUTSIDE RECORDS SUMMARY | 2023-04-11 06:06 | XMS_ITS | Continuity of Care Document ---
Author Name Unknown Organization [facility] ter Address [address] [place] [id number]- Care Team Providers Care Editor School Photograph Name Role Phone Raysa JAY, Manpreet Garcia Primary Care Physician [phone] Encounter [facility] [id number] Date(s): 09/25/21 - 09/26/[address] [address]- Encounter Diagnosis Post concussion syndrome(Final) - 09/26/21 Discharge Disposition: A-D/C Home Attending Physician: Joseph Whitney MD Admitting Physician: Joseph Whitney MD Referring Physician: Not on Staff, Referring [...] Patient Refuses 1Result Comment: [facility]-[id number] 2Admin Note: At work 3Admin Note: REFUSED [...] Maintenance, 09/26/21 17:25:00 EDT, Tablet, [facility]/pharmacy #[id number], Partial fill upon patient request if the prescription is for a schedule II opioid drug., 172, cm, 0... 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 Depression(Confirmed) Active Insulin long-term use(Confirmed) Active Erectile dysfunction(Confirmed) Active Rash(Confirmed) Active Insulin long-term use(Confirmed) Active Hypercholesterolemia(Confirmed) Active Ineffective self health management(Confirmed) Active Right flank pain(Confirmed) Active Uncontrolled type 2 diabetes mellitus(Confirmed) Active Diabetes mellitus type 2, uncontrolled(Confirmed) Active Vital Signs Most recent to oldest [Reference Range]: 1 2 3 Oxygen Saturation [94-100 %] 98 % (09/26/21 5:39 PM) 98 % (09/26/21 2:22 PM) 99 % (09/26/21 2:00 PM) Pulse Rate [55-90 bpm] 81 bpm (09/26/21 5:39 PM) 81 bpm (09/26/21 2:22 PM) 86 bpm (09/26/21 2:00 PM) Blood Pressure [90-138/55-84 mm Hg] 132/74mm Hg (09/26/21 5:39 PM) 135/76mm Hg (09/26/21 2:22 PM) 146/78mm Hg *H* (09/26/21 2:00 PM) Respiratory Rate [16-30 br/min] 18 br/min (09/26/21 5:39 PM) 24 br/min (09/26/21 2:22 PM) 16 br/min (09/26/21 2:00 PM) Temperature [96.8-100.4 DegF] 97.9 DegF (09/26/21 5:39 PM) 97.8 DegF (09/26/21 2:22 PM) 98 DegF (09/26/21 11:53 AM) Mode of Delivery (Oxygen) Room air (09/26/21 5:39 PM) Room air (09/26/21 2:22 PM) Room air (09/26/21 2:00 PM) Blood pressure sites Arm, left (09/26/21 5:39 PM) Arm, left (09/26/21 2:22 PM) Arm, left (09/26/21 2:00 PM) Temperature Route Oral (09/26/21 5:39 PM) Oral (09/26/21 2:22 PM) Oral (09/26/21 11:53 AM) Social History Social History Type Response Smoking Status Never smoker entered on: 06/30/13 Sex
--- OUTSIDE RECORDS SUMMARY | 2023-04-11 06:06 | XMS_ITS | Continuity of Care Document ---
Author Name Unknown Organization [facility] Terry lt Address [address] [place] [address]- Care Team Providers Care Bus Steward Name Role Phone Raysa JAY, Manpreet Garcia Primary Care Physician Encounter [facility] Date(s): 01/01/22 - 01/31/22 [facility] Adult [address] [place] [address]- Allergies, Adverse Reactions, Alerts Substance Reaction Severity [...] 1Result Comment: [facility]-[id number] 2Admin Note: At work 3Admin Note: REFUSED [...] each, 1 Refills, Maintenance, 01/07/22 15:37:00 EDT, [facility] #[id number], Partial fill upon patient request if the prescription is for a schedule II opioid drug., 172, cm, 12/28/21 8:08:00 EDT,... Start Date: 01/07/22 Status: Ordered valsartan 80 mg oral tablet 80 mg, 1, tablet, By Mouth, Daily, please call to schedule physical with Dr. Tabares, # 90 tablet, Refills 0, Tot. Refills 0, Maintenance, 11/09/21 14:29:00 EDT, Route to Pharmacy Electronically, [facility]/pharmacy #[id number], Partial fill upon patient request... 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[facility] CKD(Confirmed) Active Degenerative joint disease [...]
--- OUTSIDE RECORDS SUMMARY | 2023-04-11 06:07 | XMS_ITS | Continuity of Care Document ---
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 Name Role Phone Raysa JAY, Manpreet Garcia Primary Care Physician En[place] [facility] [place] Date(s): 11/15/22 - 12/15/22 [facility] Adult [address] [place] [address]- Allergies, Adverse Reactions, Alerts Substance Reaction Severity Status codeine loopy Active Immunizations Given and Recorded Vaccine Date Status Refusal Reason [id number] 12y+ bivalent booster vax 06/04/22 Recorded influenza [...] Give n Patient Refuses 1Result Comment: [facility]-[id number] 2Admin Note: At work 3Admin Note: REFUSED 4Admin Note: 2009 OLD PCP 5Result Comment: will follow up with HCP Medications ARIPiprazole 2 mg oral tablet 2 mg, 1, tablet, By Mouth, Daily, # 30 tablet, Refills 0, Tot. Refills 0, Maintenance, 08/07/22 9:16:00 EST, Route to Pharmacy Electronically, [facility] #[id number], Partial fill upon patient request if the [...] Refills, Maintenance, 11/12/22 10:13:00 EDT, Ophth Ointment, [facility]/pharmacy #[id number], Partial fill upon patient request if the [...] tablet, 1 Refills, Maintenance, 09/20/22 15:42:00 EST, [facility] #[id number], 173, cm, 08/30/22 14:53:00 EST, Height, 84, kg, 08/27/22 17:57:00 EST, Dry Weight Start Date: 09/20/22 Status: Ordered Lantus Solostar Pen 100 units/mL subcutaneous solution = 10 units, Subcutaneous Injection, Daily at bedtime, for 30 days, # 10 mL, 0 Refills, Acute 12/24/22 16:05:00 EDT, 11/24/22 16:05:00 EDT, Solution, [facility]/pharmacy #[id number], Partial fill upon patient request if the prescription is for a schedule II opioid... Start Date: 11/24/22 Stop Date: 12/24/22 Status: Ordered Lipitor 80 mg oral tablet 1 tablet = 80 mg, By Mouth, Daily, # 30 tablet, 0 Refills, Maintenance, 12/11/22 17:40:00 EDT, Tablet, [facility]/pharmacy #[id number], Partial fill upon patient [...] Route to Pharmacy Electronically, [facility]), Partial fillupon patient request if the prescription is for a s... Start Date: 11/29/22 Status: Ordered Pen [place], 31 G x 5 mm BD Ultra [...] Care Nurse Name: Leobardo INGRAM, Hoa Position: [facility] RN Member Role: Primary Care Nurse Name: Raysa JAY, Manpreet Garcia Position: [facility] Physician - Primary Care Member Role: PCP Address: Address: [address] [place] [address]- Name: Eliane Shelton RN Position: S RN Member Role: Primary Care Nurse Name: Faith Dixon RN Position: [facility] RN Member Role: Primary Care Nurse Care Team Related Persons Name: ADINA PIERRE Address: [address] [place] [address] Name: KANDACE PIERRE Address: [address] [place] [address] Name: ZACK PIERRE Address: [address] [place] [address]
--- OUTSIDE RECORDS SUMMARY | 2023-04-11 06:07 | XMS_ITS | Continuity of Care Document ---
Author Name Unknown Organization [facility] ter Address [address] [place] [id number]- Care Team Providers Care Professor Of Marketing Name Role Phone Raysa JAY, Manpreet Garcia Primary Care Physician [phone] Encounter [facility] Date(s): 02/19/23 - 02/21/[address] [address]- Encounter Diagnosis Chest pain(Final) - 02/19/23 Chest pain(Final) - 02/20/23 Discharge Disposition: A-D/C Home Attending Physician: Shahbaz River MD Admitting Physician: Fam JAY, Kiley Aguayo Referring Physician: Not on Staff, Referring MD Allergies, Adverse Reactions, Alerts Substance Reaction Severity Status codeine leandro Active Immunizations Given and Recorded Vaccine Date Status Refusal Reason [id number] 12y+ bivalent booster vax 06/04/22 Recorded influenza [...] 1Result Comment: [id number] 2Admin Note: At work 3Admin Note: REFUSED 4Admin Note: 2008 OLD PCP 5Result Comment: will follow up with HCP Medications ARIPiprazole 2 mg oral tablet 2 mg, 1, tablet, By Mouth, Daily, # 30 tablet, Refills 0, Tot. Refills 0, Maintenance, 08/07/22 9:16:00 EST, Route to Pharmacy Electronically, [facility] #[id number], Partial fill upon patient request if the prescription is for a schedule II opio... Start Date: 08/07/22 Status: Ordered atorvastatin 80 mg oral tablet 1 tablet, By Mouth, Daily, # 30 tablet, 11 Refills, Maintenance, 01/24/23 15:00:00 EDT, [id number], 173, cm, 11/28/22 16:13:00 EDT, Height, 84, kg, 08/27/22 17:57:00 EST, Dry Weight Start Date: 01/24/23 Status: Ordered buPROPion 150 mg/24 hours (XL) oral tablet, extended release 1 tablet = 150 mg, By Mouth, Daily, take with the 300 mg tablet for total of 450 mg daily Start Date: 02/20/23 Status: Ordered buPROPion 300 mg/24 hours (XL) oral tablet, extended release 1 tablet = 300 mg, By Mouth, Daily, take with the 150 mg tablet for a total of 450 mg daily, # 30 tablet, 0 Refills, Maintenance, 04/04/22 16:38:00 EDT, ER Tablet, Partial fill upon patient request if the prescription is for a schedule II opioid drug. Start Date: 04/04/22 Status: Ordered cyclobenzaprine 10 mg oral tablet 10 mg, By Mouth, 3 times a day, for 2 days, Do not drive or operate heavy machinery while using these, # 6 tablet, Refills 0, Tot. Refills 0, Acute 02/23/23 9:53:00 EDT, 02/21/23 9:53:00 EDT, Route to Pharmacy Electronically, [facility]/pharmacy #[id number], Parti... Start Date: 02/21/23 Stop Date: 02/23/23 Status: Ordered Flexeril 10 mg oral tablet 10 mg, Tablet, By Mouth, 02/21/23 9:00:00 EDT Start Date: 02/21/23 Stop Date: 02/21/23 Status: Completed ibuprofen 200 mg oral tablet 800 mg, 4, tablet, By Mouth, 3 times a day, PRN, # 120 tablet, Refills 0, Maintenance, for pain, 02/20/23 3:06:00 EDT Start Date: 02/20/23 Status: Ordered Januvia 50 mg oral tablet See Instructions, TAKE 1 TABLET BY MOUTH DAILY, # 90 tablet, 3 Refills, Maintenance, 11/17/22 17:42:00 EDT, [facility], 173, cm, 11/12/22 10:12:00 EDT, Height, 84, kg, 08/27/22 17:57:00 EST, Dry Weight Start Date: 11/17/22 Status: Ordered MetFORMIN (Eqv-Glucophage XR) 500 mg oral tablet, extended release 2 tablet, By Mouth, 2 times a day, # 360 tablet, 1 Refills, 01/22/23 13:15:00 EDT, [facility]/pharmacy #[id number], 173, cm, 11/28/22 16:13:00 EDT, [...] a s... Start Date: 11/29/22 Status: Ordered Norvasc 5 mg oral tablet 5 mg, Tablet, By Mouth, 02/21/23 9:00:00 EDT Start Date: 02/21/23 Stop Date: 02/21/23 Status: Completed Trulicity Pen 1.5 mg/0.5 mL subcutaneous solution = 1.5 mg, Subcutaneous Infusion, Every week, # 6 mL, 3 Refills, Maintenance, 11/29/22 4:11:00 EDT, [facility]), Partial fill upon patient request if the prescription isfor a schedule II opioid drug., 173, cm, 11/28/22 1... Start Date: 11/29/22 Status: Ordered valsartan 160 mg oral tablet 160 mg, 1, tablet, By Mouth, Daily, # 90 tablet, Refills 3, Tot. Refills 3, Maintenance, 12/16/22 13:17:00 EDT, Route to Pharmacy Electronically, [facility]/pharmacy #[id number], Partial fill upon patient requestif the prescription is for a schedule II opioid frances... Start Date: 12/16/22 Status: Ordered valsartan 160 mg oral tablet 160 mg, Tablet, By Mouth, 02/21/23 9:00:00 EDT Start Date: 02/21/23 Stop Date: 02/21/23 Status: Completed Problem List Condition Confirmation Course Effective Dates [...] Exam Date Time Procedure Performing Provider Status 02/19/23 9:[address] Angio Chest Colon , Nanette; Auth (V erified) Notes: (CT Angio Chest) Reason For Exam: PE suspected, Intermediate prob, positive D-dimer,;Other: RESULT: CT Angio Chest EXAMINATION: CT Angio Chest INDICATION: CP SOB, pain in R shoulder blade and dizziness. Reason: PE suspected, Intermediate prob, positive D-dimer,; Clinical Question(s): Pulmonary Embolism; TECHNIQUE: Spiral CTA of the chest was performed after rapid IV contrast administration without cardiac gating, triggered by an MERY on the main pulmonary artery. Images are formatted in multiple planes using 2-D multiplanar and 3-D maximum intensity projection. 50 cc of Omnipaque 300 was administered intravenously. Weight-based protocol using automatic tube modulation was used to optimize exposure parameters. CTDIvol Body: 4.63 mGy, DLP Body: 314 mGy*cm. COMPARISONS: 06/03/2019. ANGIOGRAPHIC FINDINGS: No pulmonary embolism to the subsegmental level. Normal caliber pulmonary arteries. Contrast refluxis seen within the IVC, which may represent increased right heart pressure. No acute aortic abnormality seen on this study performed without cardiac gating. NON-ANGIOGRAPHIC FINDINGS: Primer And Powder Canning Leader View Findings, Lines and Tubes: None. Trachea and Airways: Patent without evidence of tracheal or endobronchial lesion. Lungs and Pleura: Clear lungs. No effusion or pneumothorax. Mediastinum and brendan: Stable 1.5 x 1.2 cm soft tissue nodule in the suprasternal notch, most likelya thyroid nodule originating from the isthmus image 18, series 301), unchanged since 2019. No mediastinal or hilar lymphadenopathy. No esophageal abnormality. Heart: Heart is normal in size. No pericardial effusion. Mild coronary artery calcification. Chest Wall Soft Tissues: Subcentimeter calcifications adjacent to the humeral heads, suggestive of calcific tendinitis of the rotator cuff. Diaphragm and upper abdomen: No significant abnormality. Bones: No acute abnormality. Mild multilevel degenerative changes of the visualized spine. IMPRESSION: No evidence of pulmonary embolism. Bilateral rotator cuff calcific tendinitis. I have personally reviewed the images and I agree with this report. WSN: [id number] Ordering Physician: Keren Jaquez Dictated By: Kristin Marc DO Dictated Date/Time: 02/19/23 10:11 p Reviewed By: Ana Borjas MD Signed By: Ana Borjas MD Signed Date/Time: 02/19/23 10:16 pm Transcribed By: RAHUL Transcribed Date/Time: 02/19/23 9:50 pm * Exam Date Time Procedure Performing Provider Status 02/19/23 6:55 PM US Doppler Ext Lower Venous Right Rayna Trevizo; Auth (Verified) Notes: (US Doppler Ext Lower Venous Right) Reason For Exam: Pain in limb;Other: RESULT: US Doppler Ext Lower Venous Right US Doppler Ext Lower Venous Right Hx of Present Illness: CP SOB, pain in R shoulder blade and dizziness. woke up feeling fatigued. CPstarted about 3pm. pain to L anterior chest and R shoulder. Feels SOB at the moment. Reports only cardiac hx is left BBB; Reason: Other:; Pain in limb; Clinical Question(s): Thrombus COMPARISON: 04/27/2013 and 10/02/2018. IMAGING TECHNIQUE: Ultrasound of the veins from the groin through the calf was performed using grayscale, color, and spectral Doppler ultrasound assessing for complete compressibility and normal flowcharacteristics. FINDINGS: Common femoral vein: Patent. No thrombosis. Femoral vein: Patent. No thrombosis. Popliteal vein: Patent. No thrombosis. Gastrocnemius veins: The visualized portions are patent without evidence of thrombosis. Peroneal veins: The visualized portions are patent without evidence of thrombosis. Posterior tibial veins: The visualized portions are patent without evidence of thrombosis. Contralateral common femoral vein: Patent. No thrombosis. OTHER FINDINGS: None. IMPRESSION: No evidence of deep venous thrombosis. WSN: [id number] Ordering Physician: Keren Jaquez Dictated By: Ana Borjas MD Dictated Date/Time: 02/19/23 7:46 pm Reviewed By: Ana Borjas MD Signed By: Ana Borjas MD Signed Date/Time: 02/19/23 7:46 pm Transcribed By: RAHUL Transcribed Date/Time: 02/19/23 7:45 pm * Exam Date Time Procedure Performing Provider Status 02/19/23 7:05 PM Chest 2 Views Frontal and Lat Afia Cavazos; Auth (Verified) Notes: (Chest 2 Views Frontal and Lat) Reason For Exam: Chest Pain;Other: RESULT: Chest 2 Views Frontal and Lat PA and lateral chest dated February 19, 2023. Comparison films are from August 27, 2022. HISTORY: Chest pain. FINDINGS: The cardiac silhouette is within normal limits for size. Hilar and mediastinal structuresare unremarkable. No airspace infiltrate or pleural effusion is identified. Degenerative changes are noted in the spine. Calcifications consistent with calcific tendinitis or bursitis in the right shoulder. IMPRESSION: No evidence of acute pulmonary disease. Degenerative changes in the spine. Evidence of calcific tendinitis or bursitis in the right shoulder. Examination 81019. Thank you for allowing me to participate in the care of this patient. WSN: [id number] Ordering Physician: Baldo Szymanski MD Dictated By: Walter Ty MD Dictated Date/Time: 02/19/23 7:11 pm Reviewed By: Walter Ty MD Signed By: Walter Ty MD Signed Date/Time: 02/19/23 7:11 pm Transcribed By: RAHUL Transcribed Date/Time: 02/19/23 7:10 pm Vital Signs Most recent to oldest [Reference Range]: 1 2 3 Height 173 cm (02/21/23 6:58 AM) 173 cm (02/21/23 4:04 AM) 173 cm (02/20/23 11:33 PM) Weight 84 kg (02/20/23 8:15 AM) 84 kg (02/19/23 5:16 PM) Oxygen Saturation [94-100 %] 98 % (02/21/23 6:58 AM) 97 % (02/21/23 4:04 AM) 97 % (02/20/23 11:33 PM) Pulse Rate [55-90 bpm] 80 bpm (02/21/23 6:58 AM) 78 bpm (02/21/23 4:04 AM) 63 bpm (02/20/23 11:33 PM) Body Mass Index [18.5-24.99 kg/m2] 28.07 kg/m2 *H* (02/20/23 8:15 AM) Blood Pressure [90-138/55-84 mm Hg] 158/82mm Hg *H* (02/21/23 7:20 AM) 158/82mm Hg *H* (02/21/23 7:19 AM) 158/82mm Hg *H* (02/21/23 6:58 AM) Respiratory Rate [16-30 br/min] 18 br/min (02/21/23 8:12 AM) 18 br/min (02/21/23 6:58 AM) 18 br/min (02/21/23 4:04 AM) Temperature [96.8-100.4 DegF] 97.9 DegF (02/21/23 6:58 AM) 98 DegF (02/21/23 4:04 AM) 98.2 DegF (02/20/23 11:33 PM) Mode of Delivery (Oxygen) Room air (02/21/23 6:58 AM) Room air (02/21/23 4:04 AM) Room air (02/20/23 11:33 PM) Blood pressure sites Arm, left (02/21/23 6:58 AM) Arm, left (02/21/23 4:04 AM) Arm, right (02/20/23 11:33 PM) Temperature Route Oral (02/21/23 6:58 AM) Oral (02/21/23 4:04 AM) Oral (02/20/23 11:33 PM) Dry Weight 84 kg (02/20/23 8:15 AM) 84 kg (02/19/23 5:16 PM) 84 kg (02/19/23 5:13 PM) Dry Weight Obtained Via Patient/family stated (02/19/23 5:16 PM) Patient/family stated (02/19/23 5:13 PM) Social History Social History Type Response Smoking Status Never smoker entered on: 06/30/13 Sex Male History and physical note * Fam JAY, Kiley Aguayo: PERFORM Event Display: History and Physical Hospital Authored Date: [id number] Patient: ??BELLE PIERRE ? Age:??57 Years?Sex:??Male?:??1965?? Chief Complaint/Reason for Consultation From work. pt c/o Chest pressure radiating to R shoulder blade beginning at 1500. +mild dizziness. History of Present Illness Patient seen on??February 20 ?? 57-year-old man with history of hypertension, type 2 diabetes, known left bundle branch block, hyperlipidemia, borderline personality disorder, who presented to the emergency room for evaluation of chest pain. ?? Background history:??He had returned from vacationing at??[place]the previous day.??Woke up feeling??tired at around 10 AM??and decided to??go back to sleep.??Woke up at 1 PM??and then was able togo to work??at around 2:45 PM. 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 ?? ED course: Vital signs in the emergency room notable for heart rate of 108. Labs notable for normalCBC, no left shift. Sodium of 146, random glucose 173. High- sensitivity troponin 28, followed by 28and then 13. Ultrasound of the right lower extremity was reported as no evidence of DVT. Two-view chest x-ray reported as no evidence of acute pulmonary disease. CT angiogram of the chest was reported as no evidence of pulmonary embolism. Bilateral rotator cuff calcific tendinitis. EKG normal sinusrhythm, left bundle branch block and negative Sgarbossa criteria. He was given 975 mg of Tylenol, 0.5 mg of Dilaudid, 1 mg of oral Ativan, 4 mg of IV morphine, 0.4 mg of sublingual nitro in the emergency room. ?? At the time of my evaluation??he continued to report??5/10??left-sided chest pain.??Pain doesn't??worsen with movement.??He also mentions??occasional esophageal spasm??with cold food??but denies any acid reflux symptoms. Review of Systems Positive for??occasional dysphagia, chest pain. Denies any??fever, cough,??food getting stuck, leg edema, headache, blurry vision,??palpitations, shortness of breath. All other systems were reviewed and are negative. Objective Measurements?? Height: 173 cm (02/19/23) Weight: 84 kg (02/19/23) Dry Weight: 84 kg (02/19/23) ? Vital Signs?? Temperature: 98.2 DegF (02/19/23 17:13:00) Temperature Route: Oral (02/19/23 22:29:00) Pulse Rate: 72 bpm (02/20/23 03:44:00) Respiratory Rate: 16 br/min (02/20/23 03:44:00) Systolic Blood Pressure: 100 mm Hg (02/20/23 03:44:00) Diastolic Blood Pressure: 60 mm Hg (02/20/23 03:44:00) Blood pressure sites: Arm, right (02/20/23 03:44:00) Mean Arterial Pressure: 83 mm Hg (02/19/23 22:29:00) Pulse Pressure: 38 mm Hg (02/19/23 22:29:00) Oxygen Saturation: 95 % (02/20/23 03:44:00) Mode of Delivery (Oxygen): Room air (02/20/23 03:44:00) Early Warning Score: 6 (02/20/23 03:45:01) ? Physical Exam Constitutional: Middle-age man,??alert, in no acute distress. Head EENT: Extraocular muscle movement intact.??Moist mucous membranes.?? Neck: Supple. No JVD. Respiratory: Clear to auscultation. No wheezing or crackles. No use of accessory muscles. Cardiovascular: S1S2 regular. No murmurs, rubs or gallops.??No reproducible chest wall tenderness Gastrointestinal: Abdomen soft, non-tender, non-distended. Normal bowel sounds. Genitourinary: No CVA tenderness. Extremities: No lower extremity pitting??edema. No cyanosis or clubbing. Neurologic: AAOx3, Speech normal. No focal neurological deficits. Skin: No rash. Psychiatric: Normal mood and affect Assessment/Plan Assessment:??57-year-old man with history of hypertension, type 2 diabetes, known left bundle branch block,??hyperlipidemia, borderline personality disorder, who presented to the emergency room for evaluation of chest pain. ?? Chest pain (R07.9):??Developed sudden onset of chest pain??the day of presentation. Has known left bundle branch block, EKG??with persistent left bundle branch block??but negative Sgarbossa criteria.Was 2 sets of troponins were flat at 28 but then dropped to 13. He had cardiac catheterization in [facility]2021 which had revealed??normal left main, minimal luminal irregularities in LAD, left circumflex, RCA. Less likely that??this has progressed??in such a short time.??CT angiogram was negative for pulmonary embolism??or any other pulmonary??disease.??No reproducible chest wall tenderness??andno??worsening??of pain with??movement.??He does mention symptoms suggestive of esophageal spasm??but wouldn't expect??constant pain from that.??Trial of Toradol ?? Type 2 diabetes mellitus (E11.9):??Has had??diabetes for more than 10 years now. Most recent hemoglobin A1c was 8.2 when checked in August.??Outpatient regimen consist of metformin XR??1 g twice a day,??Lantus 10 units at night, Januvia??50 mg daily??and Trulicity??every Friday.??Hold metformin??since he received contrast dye.??Trulicity is not on formulary.??Continue Lantus. Monitor [id number]'s and cover with insulin sliding scale ?? Hypertension (I10):??Continue??amlodipine??and valsartan ?? Hyperlipidemia (E78.5):??Continue atorvastatin ?? Hypernatremia (E87.0):??Mild. Likely due to poor p.o. intake. Denies any GI losses such as diarrheaor vomiting??and is not on any diuretic medications.??Will start on normal saline ?? Borderline personality disorder (F60.3):??Continue Abilify and Wellbutrin??as per home regimen ?? VTE Prophylaxis:??Low risk. Encourage ambulation ?VTE Prophylaxis Assessment:??Risk Level documented as Low Risk ?? Code Status:??Full code ?Order Code Status:??Code Status Ordered ? Histories Allergies Allergies ?(Active and Proposed Allergies Only) codeine? (Severity: Unknown severity, Onset: Unknown) ?Reactions: loopy ? 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 Past Surgical History vasectomy anal fissure repair cardiac catheterization ? Social History He is . 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 Family History Father: Hyperlipidemia; Hypertension Other: Diabetes mellitus type II Mat. Grandfather: Diabetes mellitus type I Brother: Hyperlipidemia; Hypertension Brother: Hyperlipidemia; Hypertension Brother: Hyperlipidemia; Hypertension Medications Home Medications Amlodipine (Norvasc 5 mg oral tablet)?5?Milligram?1?tablet?By Mouth?Daily Aripiprazole (ARIPiprazole 2 mg oral tablet)?2?Milligram?1?tablet?By Mouth?Daily Atorvastatin (atorvastatin 80 mg oral tablet)?1?tab(s)?By Mouth?Daily BuPROpion (buPROPion 300 mg/24 hours (XL) oral tablet, extended release)?1?tab(s)?300?Milligram?By Mouth?Daily?take with the 150 mg tablet for a total of 450 mg daily BuPROpion (buPROPion 150 mg/24 hours (XL) oral tablet, extended release)?1?tab(s)?150?Milligram?By Mouth?Daily?take with the 300 mg tablet for total of 450 mg daily dulaglutide (Trulicity Pen 1.5 mg/0.5 mL subcutaneous solution)?1.5?Milligram?SubcutaneousInfusion?Every week Ibuprofen (ibuprofen 200 mg oral tablet)?800?Milligram?4?tablet?By Mouth?3 times a day?as needed?for pain Metformin (MetFORMIN (Eqv-Glucophage XR) 500 mg oral tablet, extended release)?2?tab(s)?ByMouth?2 times a day sitagliptin (Januvia 50 mg oral tablet)?See Instructions?TAKE 1 TABLET BY MOUTH ??DAILY Valsartan (valsartan 160 mg oral tablet)?160?Milligram?1?tablet?By Mouth?Daily Results ?? Test Name Test Result Date/Time WBC 6.4 k/mm3 02/19/2023 17:35 EDT Hgb 14.5 Gm/dL 02/19/2023 17:35 EDT Hct 45.1 % 02/19/2023 17:35 EDT Platelet Count 213 k/mm3 02/19/2023 17:35 EDT INR 1.0 02/19/2023 20:01 EDT D-Dimer 0.64 mg/L FEU 02/19/2023 17:35 EDT Sodium 146 mmol/L 02/19/2023 17:35 EDT Potassium 4.4 mmol/L 02/19/2023 17:35 EDT Chloride 108 mmol/L 02/19/2023 17:35 EDT Bicarbonate Level 23 mmol/L 02/19/2023 17:35 EDT Glucose Level 173 mg/dL 02/19/2023 17:35 EDT BUN 17 mg/dL 02/19/2023 17:35 EDT Creatinine-Blood 0.9 mg/dL 02/19/2023 17:35 EDT High Sensitivity Troponin (HSTnT) 13 ng/L 02/19/2023 22:48 EDT High Sensitivity Troponin (HSTnT) 28 ng/L 02/19/2023 20:01 EDT High Sensitivity Troponin (HSTnT) 28 ng/L 02/19/2023 17:34 EDT Imaging(s) ?CT Angio Chest ?? 02/19/2023 21:25??by Ana Borjas MD ?No evidence of pulmonary embolism. Bilateral rotator cuff calcific tendinitis. ?Chest 2 Views Frontal and Lat ?? 02/19/2023 19:05??by Walter Ty MD ?No evidence of acute pulmonary disease. ?US Doppler Ext Lower Venous Right ?? 02/19/2023 18:55??by Ana Borjas MD ?No evidence of deep venous thrombosis. ?Other Image ?EKG: Normal sinus rhythm. Left bundle branch block ? EKG study * Event Display: ECG 12-Lead Authored Date: Please click on pdf link to open report * Event Display: ECG 12-Lead Authored Date: Ventricular Rate: 99 BPM Atrial Rate: 99 BPM P-R Interval: 128 ms QRS Duration: 138 ms Q-T Interval: 400 ms QTC Calculation(Bazett): 513 ms P Matador: 36 degrees R Matador: 10 degrees T Matador: 99 degrees Normal sinus rhythm Left bundle branch block Abnormal ECG When compared with ECG of 29-AUG-2022 07:51, No significant change was found Confirmed by NATHANIEL GARCIA ([id number]) on 02/20/2023 7:07:18 AM [place]: NATHANIEL GARCIA Cardiology * Event Display: Cardiac Rhythm Strips Authored Date: Hospital Progress note * Demetri Madden MD: PERFORM, SIGN, VERIFY Event Display: Progress Note Hospital Authored Date: [id number] Patient: BELLE PIERRE Age: 57 years Sex: Male : 1965 Associated Diagnoses: None Author: Demetri Madden MD 57-year-old man with history of hypertension, type 2 diabetes, known left bundle branch block, hyperlipidemia, borderline personality disorder, who presented to the emergency room for evaluation of chest pain Developed sudden onset of chest pain the day of presentation. Has known left bundle branch block, EKG with persistent left bundle branch block. Patient's troponin 2 sets were flat at 28 and then decreased to 13. He had cardiac catheterization in May 2022 which had revealed normal left main, minimal luminal irregularities in LAD, left circumflex, RCA. Less likely cardiac. I do not think patient will need further cardiac workup in the hospital CTA negative for PE. Less likely costochondritis as patient has no chest wall tenderness Currently on IV Toradol Plan to control pain, plan for discharge tomorrow Please see history and physical done today Note * Kelly Cardozo RN: PERFORM Event Display: Discharge/Transfer Note Hospital Authored Date: [id number] Nursing Discharge Note Entered On: 02/21/2023 12:19 EDT Performed On: 02/21/2023 12:18 EDT by Kelly Cardozo RN Nursing Discharge Note 2 Discharge Time : 02/21/2023 12:15 EDT Discharge Level of Care at Discharge : Home/Long-Term/Foster Care Patient Left Unit Via : Wheelchair Patient Accompanied Off Unit with : Responsible adult DC Instructions Provided & Signed by Pt : Yes Patient Understands D/C Instructions : Yes Patient Instructions Discharge Signed : Yes Did Pt have Specialty Bed or Wound Vac : No Kelly Cardozo RN - 02/21/2023 12:18 EDT * Perico JAY, Shahbaz Augustin: PERFORM Event Display: Discharge/Transfer Note Hospital Authored Date: [id number] Patient: ??BELLE PIERRE ? Age:??57 Years?Sex:??Male?:??1965?? Patient Information Discharge Location: Primary Care Physician: Raysa JAY, Manpreet Garcia Admit Date/Time: 02/19/23 16:59 Discharge Disposition Discharge Disposition: Home: No Services Discharge Diagnosis Chest pain (R07.9) Borderline personality disorder (F60.3) Chest pain (R07.9) Hyperlipidemia (E78.5) Hypernatremia (E87.0) Hypertension (I10) Type 2 diabetes mellitus (E11.9) ?? _ Discharge Medications Amlodipine (Norvasc 5 mg oral tablet)?5?Milligram?1?tablet?By Mouth?Daily Aripiprazole (ARIPiprazole 2 mg oral tablet)?2?Milligram?1?tablet?By Mouth?Daily Atorvastatin (atorvastatin 80 mg oral tablet)?1?tab(s)?By Mouth?Daily BuPROpion (buPROPion 300 mg/24 hours (XL) oral tablet, extended release)?1?tab(s)?300?Milligram?By Mouth?Daily?take with the 150 mg tablet for a total of 450 mg daily BuPROpion (buPROPion 150 mg/24 hours (XL) oral tablet, extended release)?1?tab(s)?150?Milligram?By Mouth?Daily?take with the 300 mg tablet for total of 450 mg daily Cyclobenzaprine (cyclobenzaprine 10 mg oral tablet)?10?Milligram?By Mouth?3 times a day?for 2?Days?Do not drive or operate heavy machinery while using these dulaglutide (Trulicity Pen 1.5 mg/0.5 mL subcutaneous solution)?1.5?Milligram?SubcutaneousInfusion?Every week Ibuprofen (ibuprofen 200 mg oral tablet)?800?Milligram?4?tablet?By Mouth?3 times a day?as needed?for pain Metformin (MetFORMIN (Eqv-Glucophage XR) 500 mg oral tablet, extended release)?2?tab(s)?ByMouth?2 times a day sitagliptin (Januvia 50 mg oral tablet)?See Instructions?TAKE 1 TABLET BY MOUTH ??DAILY Valsartan (valsartan 160 mg oral tablet)?160?Milligram?1?tablet?By Mouth?Daily ? Hospital Course ?? 57-year-old man with history of hypertension, type 2 diabetes, known left bundle branch block,??hyperlipidemia, borderline personality disorder, who presented to the emergency room for evaluation of chest pain. ?Developed sudden onset of chest pain the day of presentation. Has known left bundle branch block,EKG with persistent left bundle branch block. ??Patient's troponin 2 sets were flat at 28 and then decreased to 13. ??He had cardiac catheterization in May 2022 which had revealed normal left main, minimal luminal irregularities in LAD, left circumflex, RCA.?? Less likely cardiac. ??CTA negative for PE. Had recent??cold around 1.5 weeks ago at home, could be residual pleuritis or??costochondritis Pain well-controlled on ibuprofen, Tylenol and Flexeril Discharged home in stable condition ? Chest pain (R07.9):??Developed sudden onset of chest pain??the day of presentation. Has known left bundle branch block, EKG??with persistent left bundle branch block??but negative Sgarbossa criteria. ?? Type 2 diabetes mellitus (E11.9):??Has had??diabetes for more than 10 years now. Most recent hemoglobin A1c was 8.2 when checked in August.??Continue home meds ?? Hypertension (I10):??Continue??amlodipine??and valsartan ?? Hyperlipidemia (E78.5):??Continue atorvastatin ? Borderline personality disorder (F60.3):??Continue Abilify and Wellbutrin??as per home regimen ? Objective Measurements?? Height: 173 cm (02/21/23) Weight: 84 kg (02/20/23) Dry Weight: 84 kg (02/20/23) Body Mass Index:??28.07 kg/m2??High (02/20/23) ? Vital Signs?? Temperature: 97.9 DegF (02/21/23 06:58:00) Temperature Route: Oral (02/21/23 06:58:00) Pulse Rate: 80 bpm (02/21/23 06:58:00) Respiratory Rate: 18 br/min (02/21/23 08:12:00) Systolic Blood Pressure:??158 mm Hg??High (02/21/23 07:20:00) Diastolic Blood Pressure: 82 mm Hg (02/21/23 07:20:00) Blood pressure sites: Arm, left (02/21/23 06:58:00) Mean Arterial Pressure: 107 mm Hg (02/21/23 06:58:00) Pulse Pressure: 76 mm Hg (02/21/23 06:58:00) Oxygen Saturation: 98 % (02/21/23 06:58:00) Mode of Delivery (Oxygen): Room air (02/21/23 06:58:00) Early Warning Score: 2 (02/21/23 08:13:08) ? . Physical Exam ? General: Resting comfortably no distress Respiratory: Clear to auscultation bilaterally Cardiac:??S1, S2, regular, no murmurs, no reproducible chest wall tenderness Gastrointestinal: Soft, nontender,??normal bowel sounds Neuro: No focal deficits Extremities: Moving all extremities spontaneously ?? Pending Results Add On Lab Order ordered on 02/19/2023 Patient Education Titles Noncardiac Chest Pain?? Chest Wall Pain: Costochondritis?? Follow-Up Appointments Added Follow Up ?Time Frame ?Comments Raysa JAY, Manpreet Garcia?Within one week Patient Instructions ? -You were admitted to the hospital due to chest pressure/pain -You underwent a workup including imaging of your lungs and blood vessels with no abnormalities -Your heart enzyme tests were normal as well with no signs of a new heart attack -Your pain is most likely due to musculoskeletal pain in the setting of a recent cold viral infection you had at home and coughing -Please take ibuprofen and Tylenol for pain relief, preferentially Tylenol -2 days of Flexeril muscle relaxant has been prescribed for you ? Post Discharge Care Diet: Regular Diet Activity: As tolerated Code Status: ?? Full Resuscitation Condition: Stable Prognosis: Fair Discharge ?02/21/23 9:56:00 EDT Discharge Prescriptions ?ePrescribed, ??02/21/23 9:56:00 EDT Home Health Face to Face ^HomeHealthFTF Results Discharge Labs BLOOD COUNT & DIFF WBC 6.4 k/mm3 ()?? 02/19/2023 17:35 RBC 5.12 m/mm3 ()?? 02/19/2023 17:35 Hgb 14.5 Gm/dL ()?? 02/19/2023 17:35 Hct 45.1 % ()?? 02/19/2023 17:35 MCV 88.1 femtoliters ()?? 02/19/2023 17:35 MCH 28.3 pg ()?? 02/19/2023 17:35 MCHC 32.2 g/dL (Low)?? 02/19/2023 17:35 Platelet Count 213 k/mm3 ()?? 02/19/2023 17:35 RDW-SD 45.4 femtoliters ()?? 02/19/2023 17:35 MPV 9.8 femtoliters ()?? 02/19/2023 17:35 Nucleated RBC (Automated) 0.0 #/100 WBC'S ()?? 02/19/2023 17:35 Abs. NRBC 0.0 k/mm3 ()?? 02/19/2023 17:35 Abs. Neut 4.0 k/mm3 ()?? 02/19/2023 17:35 Abs. Lymph 1.2 k/mm3 ()?? 02/19/2023 17:35 Abs. [place] 0.6 k/mm3 ()?? 02/19/2023 17:35 Abs. Eo 0.5 k/mm3 (High)?? 02/19/2023 17:35 Abs. Baso 0.0 k/mm3 ()?? 02/19/2023 17:35 Neut % 62.2 % ()?? 02/19/2023 17:35 Lymph % 18.8 % ()?? 02/19/2023 17:35 [place] % 9.8 % ()?? 02/19/2023 17:35 Eos % 8.1 % (High)?? 02/19/2023 17:35 Baso % 0.5 % ()?? 02/19/2023 17:35 Imm Gran 0.6 % ()?? 02/19/2023 17:35 Abs. Imm Gran 0.0 k/mm3 ()?? 02/19/2023 17:35 ?? CARDIAC High Sensitivity Troponin (HSTnT) 13 ng/L ()?? 02/19/2023 22:48 ? CHEM GENERAL Sodium 143 mmol/L ()?? 02/20/2023 07:20 Potassium 4.3 mmol/L ()?? 02/20/2023 07:20 Chloride 110 mmol/L (High)?? 02/20/2023 07:20 Bicarbonate Level 23 mmol/L ()?? 02/20/2023 07:20 Anion Gap 10 ()?? 02/20/2023 07:20 Glucose Level 173 mg/dL (High)?? 02/19/2023 17:35 Glucose, POC 147 mg/dL (High)?? 02/21/2023 05:48 BUN 17 mg/dL ()?? 02/20/2023 07:20 Creatinine-Blood 0.9 mg/dL ()?? 02/20/2023 07:20 Estimated GFR Creatinine 95 ML/MIN/1.73 M2 ()?? 02/20/2023 07:20 Calcium 9.8 mg/dL ()?? 02/19/2023 17:35 ? COAG INR 1.0 ()?? 02/19/2023 20:01 Protime (PT) 10.6 seconds ()?? 02/19/2023 20:01 APTT 24.7 seconds ()?? 02/19/2023 20:01 D-Dimer 0.64 mg/L FEU ()?? 02/19/2023 17:35 ?? HEME OTHER Hold Blue Top SPECIMEN DISCARDED AFTER 4 HOURS. ()?? 02/19/2023 17:35 ? MISC. CHEMISTRY Hold Green Top SPECIMEN DISCARDED AFTER 1 WEEK ()?? 02/20/2023 08:10 ? URINE OTHER Est Creatinine Clearance 86.88 mL/min ()?? 02/19/2023 18:54 ? VIROLOGY COVID-19 by RT-PCR NEGATIVE ()?? 02/20/2023 01:18 ? Microbiology ?? COVID-19 (Novel Coronavirus), Rapid PCR?? Completed?? Source: Nasal Body Site: Nose Collected Dt/Tm: 02/20/2023 00:35 Last Updated Dt/Tm: 02/20/2023 02:28 ? Imaging(s) ?CT Angio Chest ?? 02/19/2023 21:25??by Ana Borjas MD ?No evidence of pulmonary embolism. Bilateral rotator cuff calcific tendinitis. ?Chest 2 Views Frontal and Lat ?? 02/19/2023 19:05??by Walter Ty MD ?No evidence of acute pulmonary disease. ?US Doppler Ext Lower Venous Right ?? 02/19/2023 18:55??by Ana Borjas MD ?No evidence of deep venous thrombosis. ?Other Image ?EKG: Normal sinus rhythm. Left bundle branch block ? 42_ minutes spent on discharge * Kelly Cardozo RN: PERFORM Event Display: Patient Education/Instruction Authored Date: [id number] Inpatient Adult Discharge Instructions [place] [id number] Name: BELLE PIERRE : 1965 Visit: 02/19/2023 16:59:00 Current Date: 02/21/2023 11:21 Account: [id number] Inpatient Adult Discharge Instructions We would like [...] and their families. Surveys are administered by [employer] ?? If further treatment with your primary care physician or another doctor is recommended, it is important for you to keep the appointment. Call your primary care physician or return to the Emergency Department immediately if your condition worsens, fails to improve, or new symptoms develop. If you need to find a doctor, you can call [facility] for a referral at [phone] or toll free at [phone] or log in to [email or web address].. ?? You can view and manage your care through the patient portal or by using a health care yudy of your choosing. [email or web address] is a website that allows you to securely view your medical information including your hospital discharge summary, office visit summaries, medications and follow-up visits. You can also request appointments, renew medications, and request access to your medical information using a health care yudy of your choosing, or just ask a question. You can enroll at [email or web address] or register during your next office visit. You have been discharged from [facility], Patient Care Unit: S3. If you have any questions regarding these instructions after you leave, please call us and we will be happy to assist you. [facility] Your Care Team Attending Physician Shahbaz River MD Discharging Providers Shahbaz River MD Reason for Admission From work. pt c/o Chest pressure radiating to R shoulder blade beginning at 1500. +mild dizziness. Your Diagnosis Chest pain Borderline personality disorder Type 2 diabetes mellitus Hypertension Hyperlipidemia Hypernatremia Chest pain Tests Performed Below is a partial list of the tests performed during your hospitalization. You may have had other tests and procedures not included in this list. Please discuss all test results with your provider. Basic Metabolic Panel BUN CBC w/ Differential COVID-19 (Novel Coronavirus), Rapid PCR Creatinine D-DIMER Electrolytes GLUCOSE POC High??Sensitivity??Troponin T Hold Blue Top Tube HOLD GREEN TUBE INR PTT CT Angio Chest US Doppler Ext Lower Venous Right XR Chest 2 Views Frontal and Lat Primary Care Provider Manpreet Tabares MD Advance Directive Health Care Proxy on File Yes - Health Care Proxy Discharge Vitals Temperature: 97.9 DegF Height: 173 cm Pulse Rate: 80 bpm Weight: 84 kg Respiratory Rate: 18 br/min Body Mass Index:??28.07 kg/m2??High Systolic Blood Pressure:??158 mm Hg??High Body surface area: 2.01 Diastolic Blood Pressure: 82 mm Hg ?? Oxygen Saturation: 98 % ?? Studies Pending All tests and labs ordered during this hospital stay have been completed unless listed below. Please discuss all pending results with your provider listed above in these instructions. ?? Add On Lab Order What to do next Instructions From Your Doctor ? -You were admitted to the hospital due to chest pressure/pain -You underwent a workup including imaging of your lungs and blood vessels with no abnormalities -Your heart enzyme tests were normal as well with no signs of a new heart attack -Your pain is most likely due to musculoskeletal pain in the setting of a recent cold viral infection you had at home and coughing -Please take ibuprofen and Tylenol for pain relief, preferentially Tylenol -2 days of Flexeril muscle relaxant has been prescribed for you ? Discharge Orders Diet:??Regular Diet Activity:??As tolerated Code Status:?? Full Resuscitation Condition:??Stable Prognosis:??Fair You Need to Schedule the Following Appointments Follow Up with??Raysa JAY, Manpreet Garcia When:??Within Within one week Where: ?? Discharge Medications BELLE PIERRE :1965 Visit Date:02/19/2023 Medications: Please continue your medications until treatment is completed or stopped by your provider. Medications not listed below should be discontinued. Discuss any questions related to medications with your provider. What How Much When Instructions Next Dose New Cyclobenzaprine (cyclobenzaprine 10 mg oral tablet) 10 Milligram Oral 3 times a day Duration: [address] operate heavy machinery while using these ?? Pickup at [facility]/pharmacy #[id number] 02/21 2pm Unchanged Amlodipine (Norvasc 5 mg oral tablet) 1 tab(s) Oral Daily 8/12 AM Unchanged Aripiprazole (ARIPiprazole 2 mg oral tablet) 1 tab(s) Oral Daily 8/12 AM Unchanged Atorvastatin (atorvastatin 80 mg oral tablet) 1 tab(s) Oral Daily 8/12 AM Unchanged BuPROpion (buPROPion 150 mg/ 24 hours (XL) oral tablet, extended release) 1 tab(s) Oral Daily take with the 300 mg tablet for total of 450 mg daily ?? 8/12 AM Unchanged BuPROpion (buPROPion 300 mg/ 24 hours (XL) oral tablet, extended release) 1 tab(s) Oral Daily take with the 150 mg tablet for a total of 450 mg daily ?? 8 AM Unchanged dulaglutide (Trulicity Pen 1.5 mg/ 0.5 mL subcutaneous solution) 1.5 Milligram Subcutaneous Infusion Every week regular schedule Unchanged Ibuprofen (ibuprofen 200 mg oral tablet) 4 tab(s) Oral 3 times a day as needed for for pain last dose 0800 Unchanged Metformin (MetFORMIN (Eqv-Glucophage XR) 500 mg oral tablet, extended release) 2 tab(s) Oral Twice a day 811 PM Unchanged sitagliptin (Januvia 50 mg oral tablet) See instructions TAKE 1 TABLET BY MOUTH ??DAILY ?? 812 AM Unchanged Valsartan (valsartan 160 mg oral tablet) 1 tab(s) Oral Daily 02/22 AM Pharmacy Information [facility]/pharmacy #[id number]: [address], [place] [id number] [phone] Test Results Below is a partial list of the most recent Laboratory test results done prior to this discharge. You may have had other tests and procedures not included in this list. Please discuss all test resultswith your provider. Est Creatinine Clearance - 86.88 mL/min (02/19/2023) Basic Metabolic Panel (02/19/2023) ???Sodium - 146 mmol/L???Potassium - 4.4 mmol/L???Chloride - 108 mmol/L???Bicarbonate Level - 23 mmol/L???Anion Gap - 15???Glucose Level - 173 mg/dL???BUN - 17 mg/dL???Creatinine-Blood - 0.9 mg/dL???Estimated GFR Creatinine - 100 ML/MIN/1.73 M2???Calcium - 9.8 mg/dL BUN (02/20/2023) ???BUN - 17 mg/dL CBC w/ Differential (02/19/2023) ???WBC - 6.4 k/mm3???RBC - 5.12 m/mm3???Hgb - 14.5 Gm/dL???Hct - 45.1 %???MCV - 88.1 femtoliters???MCH - 28.3 pg???MCHC - 32.2 g/dL???Platelet Count - 213 k/mm3???RDW-SD - 45.4 femtoliters???MPV - 9.8 femtoliters???Nucleated RBC (Automated) - 0.0 #/100 WBC'S???Abs. NRBC - 0.0 k/mm3???Abs. Neut - 4.0 k/mm3???Abs. Lymph - 1.2 k/mm3???Abs. [place] - 0.6 k/mm3???Abs. Eo - 0.5 k/mm3???Abs. Baso - 0.0 k/mm3???Neut % - 62.2 %???Lymph % - 18.8 %???[place] % - 9.8 %???Eos % - 8.1 %???Baso % - 0.5 %???Imm Gran- 0.6 %???Abs. Imm Gran - 0.0 k/mm3 COVID-19 (Novel Coronavirus), Rapid PCR (02/20/2023) ???COVID-19 by RT-PCR - NEGATIVE Creatinine (02/20/2023) ???Creatinine-Blood - 0.9 mg/dL???Estimated GFR Creatinine - 95 ML/MIN/1.73 M2 D-DIMER (02/19/2023) ???D-Dimer - 0.64 mg/L FEU Electrolytes (02/20/2023) ???Sodium - 143 mmol/L???Potassium - 4.3 mmol/L???Chloride - 110 mmol/L???Bicarbonate Level - 23 mmol/L???Anion Gap - 10 GLUCOSE POC (02/21/2023) ???Glucose, POC - 147 mg/dL High??Sensitivity??Troponin T (02/19/2023) ???High Sensitivity Troponin (HSTnT) - 13 ng/L Hold Blue Top Tube (02/19/2023) ???Hold Blue Top - SPECIMEN DISCARDED AFTER 4 HOURS. HOLD GREEN TUBE (02/20/2023) ???Hold Green Top - SPECIMEN DISCARDED AFTER 1 WEEK INR (02/19/2023) ???INR - 1.0???Protime (PT) - 10.6 seconds PTT (02/19/2023) ???APTT - 24.7 seconds Allergies (NKA means No Known Allergies) codeine??(loopy) Problems Active Problems??(16) [facility] Putty Worker, Aretha Ray [phone]?? Benign hypertension?? Borderline personality disorder?? Cystic disease [...] Educational Leaflet Providered with your Discharge Instructions. Noncardiac Chest Pain?? Chest Wall Pain: Costochondritis?? Valuables and Belongings I fully understand and agree that [facility] accepts no responsibility for all my personal [...] to send valuables and belongings home. ?? No Valuables/Belongings: No valuables/belongings present Review of Valuable and Belonging List: With patient Date for Pt to Sign Valuables/Belongings: 02/21/23 06:58:00 ?? Other Discharge Information ? Pulmonary Rehab [...] are strongly encouraged to quit. Please call [facility] [employer] [facility] at [phone] or [phone] ([phone]) or log in to [email or web address] for referrals to smoking cessation programs. ?? 204 Suicide & Crisis Lifeline is available 03/02 if you or someone you know needs to find a reason to keep living. By calling 548 you'll be connected to a skilled, trained counselor at a crisis center in your area. INPATIENT DISCHARGE INSTRUCTIONS SIGNATURE PAGE IGNACIO BELLE Location:[facility] Registration Date and Time:02/19/2023 16:59 EDT Primary Care Physician: Raysa JAY, Manpreet Garcia, Attending Physician: Perico JAY, Shahbaz Augustin, I BELLE PIERRE, have received the above patient education materials/instructions and have verbalized understanding. If ambulance or transport services are being used I further acknowledge being given a choice of service. ?? If you need to contact me, please call me at this number: . Patient/Fruit Grader Name: Patient/Fruit Grader Signature: Relationship to Patient: Witness Name/Signature: Date: * Perico JAY, Shahbaz H: PERFORM Event Display: Patient Education Leaflets Authored Date: [id number] Chest Wall Pain: Costochondritis ?? [id number] Chest Wall Pain: Costochondritis The chest pain that you have had today is caused by costochondritis. This condition is caused by aninflammation of the cartilage joining your ribs to your breastbone. It's not caused by heart or lung problems. Your healthcare team has made sure that the chest pain you feel is not from a life threatening cause of chest pain such as heart attack, collapsed lung, blood clot in the lung, tear in theaorta, or esophageal rupture. The inflammation may have been brought on by a blow to the chest, lifting heavy objects, intense exercise, or an illness that made you cough and sneeze a lot. It??often occurs??during times of emotional stress.??It can be painful, but it's not dangerous. It usually goes away in 1 to 2 weeks. But it may happen again. Rarely, a more serious condition may cause symptomssimilar to costochondritis. That???s why it???s important to watch for the warning signs listed below. Home care Follow these guidelines when caring for yourself at home: ??? If you feel that emotional stress is a cause of your condition, try to figure out the sources of that stress. It may not be obvious. Learn ways to deal with the stress in your life. This can include regular exercise, muscle relaxation, meditation, or simply taking time out for yourself. ??? You may use acetaminophen, ibuprofen, or naproxen to control pain, unless another pain medicine was prescribed. If you have liver or kidney disease or ever had a stomach ulcer, talk with your healthcare provider before using these medicines. ???You can also help ease pain by using a hot, wet compress or heating pad. Use this with or without amedicated skin cream that helps relieves pain. ??? Do stretching exercise as advised by your provider. Typically rest is beneficial for the first few days. Avoid strenuous activity that worsens the pain. ??? Take any prescribed medicines as directed. ?? Follow-up care Follow up with your healthcare provider, or as advised. Call 911 Call 911 if any of these occur: ??? A change in the type of pain which feels different, becomes more serious, lasts longer, or spreads into your shoulder, arm, neck, jaw, or back ??? Fainting ??? Shortness of breath or trouble breathing ?? When to get medical advice Call your healthcare provider right away if any of these occur: ??? Pain gets worse when you breathe ??? Weakness or dizziness ??? Cough with dark-colored sputum (phlegm) or blood ??? Fever of 100.4??F (38??C) or higher, or as advised by your provider ?? Last Reviewed Date: 2021 ?? [id number] [employer]. All rights reserved. This information is not intended as a substitute for professional medical care. Always follow your healthcare professional's instructions. ?? * Perico JAY, Shahbaz H: PERFORM Event Display: Patient Education Leaflets Authored Date: [id number] Noncardiac Chest Pain ?? [id number] Noncardiac Chest Pain In most cases, people who come to the emergency room with chest pain don???t have a problem with their heart. Instead, the pain is caused by other conditions. It's important for the healthcare team to be sure you are not having a life-threatening cause for chest pain such as: ??? Heart attack ??? Blood clot in the lungs ??? Collapsed lung ??? Ruptured esophagus ??? Tearing of the aorta Once these major causes have been ruled out, you may have further evaluation for other causes of chest pain. These may be problems with the lungs, muscles, bones, digestive tract, nerves, or mental health. They include: ??? Inflammation around the lungs (pleurisy) ??? Collapsed lung (pneumothorax) ??? Lung inflammation (pleuritis or pneumonitis) ??? Fluid around the lung (pleural effusion) ??? Lung cancer (rare cause of chest pain) ??? Inflamed cartilage between the ribs (costochondritis) ??? Fibromyalgia ??? Rheumatoid arthritis ??? Chest wall strain ??? Reflux ??? Stomach ulcer ??? Spasms of the esophagus ??? Gall stones ??? Gallbladder inflammation ??? Panic or anxiety attacks ??? Emotional distress Your pain doesn???t seem to be coming from your heart. But sometimes the signs of a serious problemtake more time to appear. Continue to watch for the warning signs listed below. Home care Follow these guidelines when caring for yourself at home: ??? Rest today and don't do any strenuousactivity. ??? Take any prescribed medicine as directed. ?? Follow-up care Follow up with your healthcare provider as advised. ?? Call 911 Call 911 if any of these occur: ??? A change in the type of pain: if it feels different, becomes more severe, lasts longer, or begins to spread into your shoulder, arm, neck, jaw or back ??? Shortness of breath or increased pain with breathing ??? Weakness, dizziness, or fainting ??? Rapid heart beat ??? Crushing sensation in your chest ?? When to seek medical advice Call your healthcare provider right away if any of these occur: ??? Cough with dark colored sputum (phlegm) or blood ??? Fever of 100.4??F (38??C) or higher, or as directed by your healthcare provider ??? Swelling, pain or redness in one leg ?? Last Reviewed Date: 2021 ?? [id number] [employer]. All rights reserved. This information is not intended as a substitute for professional medical care. Always follow your healthcare professional's instructions. ?? Patient Care team information Care Team Personnel Name: Kelly Swanson RN Position: [facility] RN Member Role: Primary Care Nurse Name: Luis Miller RN Position: [facility] RN Member Role: Primary Care Nurse Name: Leobardo INGRAM, Hoa Position: [facility] RN Member Role: Primary Care Nurse Name: Raysa JAY, Manpreet Garcia Position: [facility] Physician - Primary Care Member Role: PCP Address: Address: [address] [place] [address]- Name: Nikita INGRAM, Eliane Position: [facility] RN Member Role: Primary Care Nurse Name: Faith Dixon RN Position: [facility] RN Member Role: Primary Care Nurse Name: Aretha Ray Position: [facility] Putty Worker Member Role: [employer] Consultant Name: Rama WILBURN Attending Position: [facility] ED Medicine MD Name: Eliane Nunez RN Position: [facility] ED RN W/OE and Tasks Member Role: Patient Care Provider Care Team Related Persons Name: ADINA PIERRE Address: home [address] [place] [address] Name: IGNACIO KANDACE Address: home [address] [place] [address] UM Name: ZACK PIERRE Address: home [address] [place] [address]
--- OUTSIDE RECORDS SUMMARY | 2023-04-11 06:07 | XMS_ITS | Continuity of Care Document ---
Author Name Unknown Organization [facility] Terry lt Address [address] [place] [address]- Care Team Providers Care Specialty Plant Supervisor Name Role Phone Raysa JAY, Manpreet Garcia Primary Care Physician Encounter [facility] Date(s): 12/02/22 - 01/01/23 [facility] Adult [address] [place] [address]- Allergies, Adverse Reactions, Alerts Substance Reaction Severity Status codeine loopy Active Immunizations Given and Recorded Vaccine Date Status Refusal Reason [id number] 12y+ bivalent booster vax 06/04/22 Recorded influenza [...] 1Result Comment: [facility]-[id number] 2Admin Note: At work 3Admin Note: REFUSED 4Admin Note: 2009 OLD PCP 5Result Comment: will follow up with HCP Medications ARIPiprazole 2 mg oral tablet 2 mg, 1, tablet, By Mouth, Daily, # 30 tablet, Refills 0, Tot. Refills 0, Maintenance, 08/07/22 9:16:00 EST, Route to Pharmacy Electronically, [facility] #[id number], Partial fill upon patient request if the [...] Refills, Maintenance, 11/12/22 10:13:00 EDT, Ophth Ointment, [facility]/pharmacy #[id number], Partial fill upon patient request if the [...] tablet, 1 Refills, Maintenance, 09/20/22 15:42:00 EST, [facility] #[id number], 173, cm, 08/30/22 14:53:00 EST, Height, 84, kg, 08/27/22 17:57:00 EST, Dry Weight Start Date: 09/20/22 Status: Ordered Lipitor 80 mg oral tablet 1 tablet = 80 mg, By Mouth, Daily, # 30 tablet, 0 Refills, Maintenance, 12/11/22 17:40:00 EDT, Tablet, [facility]/pharmacy #[id number], Partial fill upon patient request if the [...] Route to Pharmacy Electronically, [facility] ([facility]), Partial fillupon patient request if [...] 12/16/22 13:17:00 EDT, Route to Pharmacy Electronically, [facility]/pharmacy #[id number], Partial fill upon patient requestif the prescription [...] Team Personnel Name: Kelly Swanson RN Position: [facility] SN RN Member Role: Primary Care Nurse Name: Hoa Booth RN Position: [facility] RN Member Role: Primary Care Nurse Name: Manpreet Tabares MD Position: [facility] Physician - Primary Care Member Role: PCP Address: Address: [address] [place] [id number] Name: Eliane Shelton RN Position: S RN Member Role: Primary Care Nurse Name: Faith Dixon RN Position: [facility] RN Member Role: Primary Care Nurse Care Team Related Persons Name: ADINA PIERRE Address: home [address] [place] [address] Name: IGNACIO KANDACE Address: home [address] [place] [address] Name: ZACK PIERRE Address: home [address] [place] [address]
--- OUTSIDE RECORDS SUMMARY | 2023-04-11 06:07 | XMS_ITS | Continuity of Care Document ---
Author Name Unknown Organization [facility] Terry lt Address [address] [place] [address]- Care Team Providers Care Drug Safety Specialist Name Role Phone Raysa JAY, Manpreet Garcia Primary Care Physician Encounter [facility] Date(s): 08/22/21 - 09/21/21 [facility] Adult [address] [place] [address]- Allergies, Adverse Reactions, Alerts Substance Reaction Severity [...] Give n Patient Refuses 1Result Comment: [facility]-[id number] 2Admin Note: At work 3Admin Note: REFUSED [...] 10/03/21 11:30:00 EDT, 09/19/21 11:30:00 EST, Tablet, [facility]/pharmacy #[id number], Partial fill upon patient request [...]
--- OUTSIDE RECORDS SUMMARY | 2023-04-11 06:07 | XMS_ITS | Continuity of Care Document ---
Author Name Unknown Organization [facility] Terry lt Address [address] [place] [address]- Care Team Providers Care Application Security Architect Name Role Phone Raysa JAY, Manpreet Garcia Primary Care Physician [phone] [place] [facility] [place] 10/08/21 - 10/15/21 [facility] Adult [address] [place] [address]- Encounter Diagnosis Vertigo(Discharge Diagnosis) - 10/08/21 Post concussion syndrome(Discharge Diagnosis) - 10/08/21 Benign hypertension(Discharge Diagnosis) - 10/08/21 Attending Physician: Wali KOEHLER, Anila Lucas Referring [...] Refuses 1Result Comment: [facility]-[id number] 2Admin Note: At work 3Admin Note: REFUSED [...] 0 Refills, Maintenance, 09/26/21 17:25:00 EDT, Tablet, [facility]/pharmacy #[id number], Partial fill upon [...] 10/08/21 14:11:00 EDT, Route to Pharmacy Electronically, [facility]/pharmacy #[id number], Partial fill upon patient requestif the prescription [...] Status Clinical Service Informant Vertigo Discharge Diagnosis 10/08/21 Post concussion syndrome Discharge Diagnosis 10/08/21 Benign hypertension Discharge Diagnosis 10/08/21 Vital Signs Most recent to oldest [Reference Range]: 1 2 Height 172 cm (10/08/21 2:22 PM) 172 cm (10/08/21 1:57 PM) Weight 83.0 kg (10/08/21 1:57 PM) Oxygen Saturation [94-100 %] 99 % (10/08/21 1:57 PM) Pulse Rate [55-90 bpm] 97 bpm *H* (10/08/21 1:57 PM) Body Mass Index [18.5-24.99] 28.06 *H* (10/08/21 1:57 PM) Blood Pressure [90-138/55-84 mm Hg] 142/ 82mm Hg *H* (10/08/21 2:22 PM) 144/87mm Hg *H* (10/08/21 1:57 PM) Blood pressure sites Arm, right (10/08/21 1:57 PM) Weight Obtained Via Standing scale (10/08/21 1:57 PM) Social History Social History Type Response Smoking Status Never smoker entered on: 06/30/13 Sex
--- OUTSIDE RECORDS SUMMARY | 2023-04-11 06:07 | XMS_ITS | Continuity of Care Document ---
Author Name Unknown Organization [facility] Address [address] [place] [address]- Care Team Providers Care Hand Tacker Name Role Phone Raysa JAY, Manpreet Garcia Primary Care Physician Encounter [facility] Date(s): 11/21/22 - 12/21/22 [facility] [address] [place] [id number] Allergies, Adverse Reactions, Alerts Substance Reaction Severity Status codeine loopy Active Immunizations Given and Recorded Vaccine Date Status Refusal Reason [id number] 12y+ bivalent booster vax 06/04/22 Recorded influenza [...] Not Give n Patient Refuses 1Result Comment: [facility]-[id number] 2Admin Note: At work 3Admin Note: REFUSED 4Admin Note: 2009 OLD PCP 5Result Comment: will follow up with HCP Medications ARIPiprazole 2 mg oral tablet 2 mg, 1, tablet, By Mouth, Daily, # 30 tablet, Refills 0, Tot. Refills 0, Maintenance, 08/07/22 9:16:00 EST, Route to Pharmacy Electronically, [facility] #[id number], Partial fill upon patient request if the [...] Refills, Maintenance, 11/12/22 10:13:00 EDT, Ophth Ointment, [facility]/pharmacy #[id number], Partial fill upon patient request if the [...] tablet, 1 Refills, Maintenance, 09/20/22 15:42:00 EST, [facility] #[id number], 173, cm, 08/30/22 14:53:00 EST, Height, 84, kg, 08/27/22 17:57:00 EST, Dry Weight Start Date: 09/20/22 Status: Ordered Lantus Solostar Pen 100 units/mL subcutaneous solution = 10 units, Subcutaneous Injection, Daily at bedtime, for 30 days, # 10 mL, 0 Refills, Acute 12/24/22 16:05:00 EDT, 11/24/22 16:05:00 EDT, Solution, [facility]/pharmacy #[id number], Partial fill upon patient request if the prescription is for a schedule II opioid... Start Date: 11/24/22 Stop Date: 12/24/22 Status: Ordered Lipitor 80 mg oral tablet 1 tablet = 80 mg, By Mouth, Daily, # 30 tablet, 0 Refills, Maintenance, 12/11/22 17:40:00 EDT, Tablet, [facility]/pharmacy #[id number], Partial fill upon patient request if [...] 11/29/22 4:11:00 EDT, Route to Pharmacy Electronically, [facility]), Partial fillupon patient request if the prescription is for a s... Start Date: 11/29/22 Status: Ordered Pen [place], 31 G x 5 mm BD Ultra [...] mL, 3 Refills, Maintenance, 11/29/22 4:11:00 EDT, [facility]), Partial fill upon patient request if the prescription isfor a schedule II opioid drug., 173, cm, 11/28/22 1... Start Date: 11/29/22 Status: Ordered valsartan 160 mg oral tablet 160 mg, 1, tablet, By Mouth, Daily, # 90 tablet, Refills 3, Tot. Refills 3, Maintenance, 12/16/22 13:17:00 EDT, Route to Pharmacy Electronically, [facility]/pharmacy #[id number], Partial fill upon patient requestif the prescription [...] Care Nurse Name: Leobardo INGRAM, Hoa Position: S RN Member Role: Primary Care Nurse Name: Raysa JAY, Manpreet Garcia Position: [facility] Physician - Primary Care Member Role: PCP Address: Address: [address] [place] [id number] Name: Eliane Shelton RN Position: [facility] RN Member Role: Primary Care Nurse Name: Faith Dixon RN Position: [facility] RN Member Role: Primary Care Nurse Care Team Related Persons Name: ADINA PIERRE Address: home [address] [place] [address] Name: KANDACE PIERRE Address: home [address] [place] [address] Name: ZACK PIERRE Address: [address] [place] [address]
--- OUTSIDE RECORDS SUMMARY | 2023-04-11 06:07 | XMS_ITS | Continuity of Care Document ---
Author Name Unknown Organization [facility] lt Address [address] [place] [address]- Care Team Providers Care Warehouse Selector Name Role Phone Raysa JAY, Manpreet Garcia Primary Care Physician En[place] [facility] [place] [place] Date(s): 02/05/22 - 02/12/22 [facility] Adult [address] [place] [address]- Attending Physician: Bronson Dixon MD Allergies, Adverse Reactions, Alerts Substance Reaction [...] 1Result Comment: [facility]-[id number] 2Admin Note: At work 3Admin Note: REFUSED [...] tablet, 0 Refills, Maintenance, 02/05/22 10:43:00 EDT, [facility] #[id number], Partial fill upon patient request if the [...] 02/15/22 11:25:00 EDT, 02/05/22 11:25:00 EDT, Tablet, [facility] #[id number], Partial fill upon patient request if the prescription is for a schedule II opioid... 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[facility] CKD(Confirmed) Active 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 Insulin long-term use(Confirmed) Active Erectile dysfunction(Confirmed) Active Rash(Confirmed) Active Insulin long-term use(Confirmed) Active Hypercholesterolemia(Confirmed) Active Ineffective self health management(Confirmed) Active Major depressive disorder, recurrent(Confirmed) Active Right flank pain(Confirmed) Active Uncontrolled type 2 diabetes mellitus(Confirmed) Active Diabetes mellitus type 2, uncontrolled(Confirmed) Active Vital Signs Most recent to oldest [Reference Range]: 1 Height 172 cm (02/05/22 10:10 AM) Weight 83.6 kg (02/05/22 10:10 AM) Oxygen Saturation [94-100 %] 98 % (02/05/22 10:10 AM) Pulse Rate [55-90 bpm] 107 bpm *H* (02/05/22 10:10 AM) Body Mass Index [18.5-24.99] 28.26 *H* (02/05/22 10:10 AM) Blood Pressure [90-138/55-84 mm Hg] 128/ 86mm Hg (02/05/22 10:10 AM) Temperature [96.8-100.4 DegF] 98.8 DegF (02/05/22 10:10 AM) Mode of Delivery (Oxygen) Room air (02/05/22 10:10 AM) Blood pressure sites Arm, right (02/05/22 10:10 AM) Temperature Route Oral (02/05/22 10:10 AM) Weight Obtained Via Standing scale (02/05/22 10:10 AM) Social History Social History Type Response Smoking Status Never smoker entered on: 06/30/13 Sex
--- OUTSIDE RECORDS SUMMARY | 2023-04-11 06:07 | XMS_ITS | Continuity of Care Document ---
Author Name Unknown Organization [facility] Address [address] [place] [address]- Care Team Providers Care Bar Useful Or Busser Name Role Phone Raysa JAY, Manpreet Garcia Primary Care Physician [phone] [place] [facility] [place] 09/24/21 - 10/31/21 [facility] Adult [address] [place] [address]- Attending Physician: Manpreet Tabares MD Allergies, Adverse [...] NAMED [facility]-[id number] 2Admin Note: At work 3Admin Note: REFUSED [...] Maintenance, 09/26/21 17:25:00 EDT, Tablet, [facility]/pharmacy #[id number], Partial fill upon patient request if [...] 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
--- OUTSIDE RECORDS SUMMARY | 2023-04-11 06:07 | XMS_ITS | Continuity of Care Document ---
Author Name Unknown Organization [facility] Terry lt Address [address] [place] [address]- Care Team Providers Care Automation Controls Expert Name Role Phone Raysa JAY, Manpreet Garcia Primary Care Physician Encounter [facility] Date(s): 01/28/22 - 02/27/22 [facility] Adult [address] [place] [address]- Allergies, Adverse Reactions, Alerts Substance Reaction Severity [...] 1Result Comment: [facility]-[id number] 2Admin Note: At work 3Admin Note: REFUSED [...] tablet, 0 Refills, Maintenance, 02/05/22 10:43:00 EDT, [facility] #[id number], Partial fill upon patient request if the [...] 3 Refills, Maintenance, 04/13/21 14:48:00 EDT, [facility], 172, cm, 12/21/20 8:34:00 EDT, Height, 81, kg, 09/15/20 12:34:00 EST, Dry Weight Start Date: 04/13/21 Status: Ordered Trulicity Pen 1.5 mg/0.5 mL subcutaneous solution = 1.5 mg, Subcutaneous Infusion, Every week, # 12 each, 1 Refills, Maintenance, 01/07/22 15:37:00 EDT, [facility] #[id number], Partial fill upon patient request if the [...] Active 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
--- OUTSIDE RECORDS SUMMARY | 2023-04-11 06:07 | XMS_ITS | Continuity of Care Document ---
Author Name Unknown Organization [facility] Address [address] [place] [address]- Care Team Providers Care Director Marketing Name Role Phone Raysa JAY, Manpreet Garcia Primary Care Physician [phone] [place] [facility] 02/28/23 - 03/30/23 [facility] Adult [address] [place] [address]- Allergies, Adverse Reactions, Alerts Substance Reaction Severity Status codeine loopy Active Immunizations Given and Recorded Vaccine Date Status Refusal Reason [id number] 12y+ bivalent booster vax 06/04/22 Recorded influenza [...] Tet/diphth/pertussis, acel (oldterm) 4 11/26/10 Gi thong 1Result Comment: [facility]-[id number] 2Admin Note: At work 3Admin Note: REFUSED 4Admin Note: 2009 OLD PCP Medications ARIPiprazole 2 mg oral tablet 2 mg, 1, tablet, By Mouth, Daily, # 30 tablet, Refills 0, Tot. Refills 0, Maintenance, 08/07/22 9:16:00 EST, Route to Pharmacy Electronically, [facility][id number], Partial fill upon patient request if the prescription is for a schedule II opio... Start Date: 08/07/22 Status: Ordered atorvastatin 80 mg oral tablet 1 tablet, By Mouth, Daily, # 30 tablet, 11 Refills, Maintenance, 01/24/23 15:00:00 EDT, [facility] [id number], 173, cm, 11/28/22 16:13:00 EDT, Height, 84, [...] opioid drug. Start Date: 04/04/22 Status: Ordered FreeStyle Letitia 2 Sensors See Instructions, # 6 each, Refills 3, Tot. Refills 3, Maintenance, Use one every 14 days, Dx: T2DM, 02/28/23 17:16:00 EDT, [facility], 173, cm, 02/21/23 6:58:00 EDT, Height, 84, kg, 02/20/23 8:15:00 EDT, Dry Weight Start Date: 02/28/23 Status: Ordered ibuprofen 200 mg oral tablet 800 mg, 4, tablet, By Mouth, 3 times a day, PRN, # 120 tablet, Refills 0, Maintenance, for pain, 02/20/23 3:06:00 EDT Start Date: 02/20/23 Status: Ordered Januvia 50 mg oral tablet See Instructions, TAKE 1 TABLET BY MOUTH DAILY, # 90 tablet, 2 Refills, Maintenance, 03/28/23 12:37:00 EDT, [facility]/pharmacy #[id number], 173, cm, 02/21/23 6:58:00 EDT, Height, 84, kg, 02/20/23 8:15:00 EDT, Dry Weight Start Date: 03/28/23 Status: Ordered Lantus Solostar Pen 100 units/mL subcutaneous solution See Instructions, INJECT 10 UNITS SUBCUTANEOUS INJECTION DAILY AT BEDTIME,X30 DAYS, # 15 Unknown, 3Refills, Maintenance, 02/25/23 6:35:00 EDT, [id number], 173, cm, 02/21/23 6:58:00 EDT, Height,84, kg, 02/20/23 8:15:00 EDT, Dry Weight Start Date: 02/25/23 Status: Ordered MetFORMIN (Eqv-Glucophage XR) 500 mg oral tablet, extended release 2 tablet, By Mouth, 2 times a day, # 360 tablet, 1 Refills, 01/22/23 13:15:00 EDT, [facility]/pharmacy #[id number], 173, cm, 11/28/22 16:13:00 EDT, Height, 84, kg, 08/27/22 17:57:00 EST, Dry Weight Start Date: 01/22/23 Status: Ordered Norvasc 5 mg oral tablet 5 mg, 1, tablet, By Mouth, Daily, # 90 tablet, Refills 3, Tot. Refills 3, Maintenance, 11/29/22 4:11:00 EDT, Route to Pharmacy Electronically, [facility] ([facility]), Partial fillupon patient request if the prescription is for a s... Start Date: 11/29/22 Status: Ordered Trulicity Pen 1.5 mg/0.5 mL subcutaneous solution = 1.5 mg, Subcutaneous Infusion, Every week, # 6 mL, 2 Refills, Maintenance, 02/28/23 13:38:00 EDT,[facility]/pharmacy #[id number], Partial fill upon patient request if the prescription is for a schedule II opioid drug., 173, cm, 02/21/23 6:58:00 EDT, Height, 84,... Start Date: 02/28/23 Status: Ordered valsartan 160 mg oral tablet 160 mg, 1, tablet, By Mouth, Daily, # 90 tablet, Refills 3, Tot. Refills 3, Maintenance, 12/16/22 13:17:00 EDT, Route to Pharmacy Electronically, [facility]/pharmacy #[id number], Partial fill upon patient requestif the prescription is for a schedule II opioid frances... Start Date: 12/16/22 Status: Ordered Problem List Condition Confirmation Course [...] Never smoker entered on: 06/30/13 Sex Male Patient Care team information Care Team Personnel Name: Kelly Swanson RN Position: [facility] RN Member Role: Primary Care Nurse Name: Luis Miller RN Position: [facility] RN Member Role: Primary Care Nurse Name: Hoa Booth RN Position: [facility] RN Member Role: Primary Care Nurse Name: Manpreet Tabares MD Position: [facility] Physician - Primary Care Member Role: PCP Address: Address: [address] [place] [address]- Name: Eliane Shelton RN Position: [facility] RN Member Role: Primary Care Nurse Name: Faith Dixon RN Position: [facility] RN Member Role: Primary Care Nurse Name: Aretha Ray Position: [facility] [place] Civil Engineering Design Draftsperson Member Role: Bow Rehairer Care Team Related Persons Name: NIAESTHERADINA Address: [address] [place] [address] Name: KANDACE PIERRE Address: [address] [place] [address] Name: NIAESTHERZACK Address: [address] [place] [address]
--- OUTSIDE RECORDS SUMMARY | 2023-04-11 06:07 | XMS_ITS | Continuity of Care Document ---
Author Name Unknown Organization [facility] Address [address] [place] [address]- Care Team Providers Care Furniture Stainer Name Role Phone Manpreet Tabares MD Primary Care Physician [phone] [place] [facility] Date(s): 08/21/22 - 08/28/22 [facility] Adult [address] [place] [address]- Attending Physician: Manpreet Tabares MD Allergies, Adverse Reactions, Alerts Substance Reaction Severity Status codeine loopy Active Immunizations Given and Recorded Vaccine Date Status Refusal Reason [id number] 12y+ bivalent booster vax 06/04/22 Recorded influenza [...] Comment: [facility]-[id number] 2Admin Note: At work 3Admin Note: REFUSED 4Admin Note: 2009 OLD PCP 5Result Comment: will follow up with HCP Medications ARIPiprazole 2 mg oral tablet 2 mg, 1, tablet, By Mouth, Daily, # 30 tablet, Refills 0, Tot. Refills 0, Maintenance, 08/07/22 9:16:00 EST, Route to Pharmacy Electronically, [facility] #[id number], Partial fill upon patient request if the [...] each, 1 Refills, Maintenance, 05/24/22 11:14:00 EST, [facility] #[id number], Partial fill upon patient request if the prescription is for a schedule II opioid drug., 172, cm, 05/20/22 15:52:00 EST... Start Date: 05/24/22 Status: Ordered valsartan 160 mg oral tablet 160 mg, 1, tablet, By Mouth, Daily, # 90 tablet, Refills 0, Tot. Refills 0, Maintenance, 05/29/22 10:46:00 EST, Route to Pharmacy Electronically, [facility] #[id number], Partial fill upon patient request if the prescription is for a schedule II o... Start Date: 05/29/22 Status: Ordered Problem List Condition Confirmation Course [...] to oldest [Reference Range]: 1 2 Height 174 cm (08/21/22 4:27 PM) 174 cm (08/21/22 4:17 PM) Weight 88.3 kg (08/21/22 4:17 PM) Oxygen Saturation [94-100 %] 100 % (08/21/22 4:17 PM) Pulse Rate [55-90 bpm] 90 bpm (08/21/22 4:17 PM) Body Mass Index [18.5-24.99 kg/m2] 29.17 kg/m2 *H* (08/21/22 4:17 PM) Blood Pressure [90-138/55-84 mm Hg] 149/ 82mm Hg *H* (08/21/22 4:27 PM) 162/82mm Hg *H* (08/21/22 4:17 PM) Mode of Delivery (Oxygen) Room air (08/21/22 4:17 PM) Blood pressure sites Arm, right (08/21/22 4:27 PM) Arm, right (08/21/22 4:17 PM) Weight Obtained Via Standing scale (08/21/22 4:17 PM) Social History Social History Type Response Smoking Status Never smoker entered on: 06/30/13 Sex Patient Care team information Care Team Personnel Name: Kelly Swanson RN Position: [facility] SN RN Member Role: Primary Care Nurse Name: Hoa Booth RN Position: S RN Member Role: Primary Care Nurse Name: Manpreet Tabares MD Position: [facility] Primary Care Physician Member Role: PCP Address: Address: [address] [place] [id number] Name: Eliane Shelton RN Position: S RN Member Role: Primary Care Nurse Name: Faith Dixon RN Position: [facility] RN Member Role: Primary Care Nurse Care Team Related Persons Name: ADINA PIERRE Address: [address] [place] [address] Name: KANDACE PIERRE Address: [address] [place] [address] Name: ZACK PIERRE Address: [address] [place] [address]
--- OUTSIDE RECORDS SUMMARY | 2023-04-11 06:07 | XMS_ITS | Continuity of Care Document ---
Author Name Unknown Organization [facility] Address [address] [place] [address]- Care Team Providers Care Director Of Market Intelligence Name Role Phone Raysa JAY, Manpreet Garcia Primary Care Physician [phone] [place] [facility](s): 01/11/22 - 02/10/22 [facility] Adult [address] [place] [address]- Allergies, Adverse Reactions, Alerts Substance Reaction Severity [...] Refuses 1Result Comment: [facility]-[id number] 2Admin Note: At work 3Admin Note: REFUSED [...] tablet, 0 Refills, Maintenance, 02/05/22 10:43:00 EDT, [facility] #[id number], Partial fill upon patient request if the [...] 02/15/22 11:25:00 EDT, 02/05/22 11:25:00 EDT, Tablet, [facility] #[id number], Partial fill upon patient request if the prescription is for a schedule II opioid... 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
--- OUTSIDE RECORDS SUMMARY | 2023-04-11 06:07 | XMS_ITS | Continuity of Care Document ---
Author Name Unknown Organization [facility] Terry lt Address [address] [place] [address]- Care Team Providers Care Cobol Engineer Name Role Phone Raysa JAY, Manpreet Garcia Primary Care Physician [place] [facility] [place]22 [facility] Adult [address] [place] [address]- Allergies, Adverse Reactions, Alerts Substance Reaction Severity Status codeine loopy Active Immunizations Given and Recorded Vaccine Date Status Refusal Reason [id number] 12y+ bivalent booster vax 06/04/22 Recorded influenza [...] 1Result Comment: [facility]-[id number] 2Admin Note: At work 3Admin Note: REFUSED 4Admin Note: 2009 OLD PCP 5Result Comment: will follow up with HCP Medications ARIPiprazole 2 mg oral tablet 2 mg, 1, tablet, By Mouth, Daily, # 30 tablet, Refills 0, Tot. Refills 0, Maintenance, 08/07/22 9:16:00 EST, Route to Pharmacy Electronically, [facility] #[id number], Partial fill upon patient request if the [...] 0 Refills, Maintenance, 09/03/22 16:31:00 EST, Tablet, [facility] #[id number], Partial fill upon patient request if theprescription is for a schedule II opioid drug., 173... Start Date: 09/03/22 Status: Ordered meclizine 25 mg oral tablet 1 tablet = 25 mg, By Mouth, 3 times a day, PRN as needed for dizziness, # 30 tablet, 0 Refills, Acute 09/25/22 18:00:00 EDT, 09/03/22 16:53:00 EST, [facility] #[id number], Partial fill upon patient request if the [...] each, 1 Refills, Maintenance, 05/24/22 11:14:00 EST, [facility] #[id number], Partial fill upon patient request if the prescription is for a schedule II opioid drug., 172, cm, 05/20/22 15:52:00 EST... Start Date: 05/24/22 Status: Ordered valsartan 160 mg oral tablet 160 mg, 1, tablet, By Mouth, Daily, # 90 tablet, Refills 0, Tot. Refills 0, Maintenance, 05/29/22 10:46:00 EST, Route to Pharmacy Electronically, [facility] #[id number], Partial fill upon patient request if the [...] Team Personnel Name: Kelly Swanson RN Position: [facility] RN Member Role: Primary Care Nurse Name: Hoa Booth RN Position: [facility] RN Member Role: Primary Care Nurse Name: Manpreet Tabares MD Position: [facility] Primary Care Physician Member Role: PCP Address: Address: [address] [place] [address] Name: Eliane Shelton RN Position: [facility] RN Member Role: Primary Care Nurse Name: Faith Dixon RN Position: [facility] RN Member Role: Primary Care Nurse Care Team Related Persons Name: ADINA PIERRE Address: home [address] [place] [address] Name: KANDACE PIERRE Address: home [address] [place] [address] Name: ZACK PIERRE Address: home [address] [place] [address]
--- OUTSIDE RECORDS SUMMARY | 2023-04-11 06:07 | XMS_ITS | Continuity of Care Document ---
Author Name Unknown Organization [facility] lt Address [address] [place] [address]- Care Team Providers Care Airframe Technician Name Role Phone Raysa JAY, Manpreet Garcia Primary Care Physician [place] [facility] [place]22 [facility] Adult [address] [place] [address]- Allergies, Adverse Reactions, Alerts Substance Reaction Severity [...] Not Give n Patient Refuses 1Result Comment: [facility]-[id number] 2Admin Note: At work 3Admin Note: REFUSED [...] 11, Tot. Refills 11, Maintenance, Use with [facility] to test bloodsugars tid for E11.9, 04/23/22 [...] 0 Refills, Maintenance, 04/05/22 15:56:00 EDT, Tablet, [facility] #[id number], Partial fill upon patient request if the [...] each, 1 Refills, Maintenance, 01/07/22 15:37:00 EDT, [facility][id number], Partial fill upon patient request if the [...] Name: Raysa JAY, Manpreet Garcia Address: Address: [address] [place] [id number]
--- OUTSIDE RECORDS SUMMARY | 2023-04-11 06:07 | XMS_ITS | Continuity of Care Document ---
Author Name Unknown Organization [facility] [place] Address [address] [place] [address]- Care Team Providers Care Contract Technician Name Role Phone Raysa JAY, Manrpeet Garcia Primary Care Physician [place] [facility] [place] 11/15/21 [facility] Adult [address] [place] [address]- Attending Physician: Manpreet Tabares MD Allergies, Adverse [...] [facility]-[id number] 2Admin Note: At work 3Admin Note: REFUSED [...] Maintenance, 09/26/21 17:25:00 EDT, Tablet, [facility]/pharmacy #[id number], Partial fill upon [...] 14:29:00 EDT, Route to Pharmacy Electronically, [facility]/pharmacy #[id number], Partial fill upon patient request... 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[facility] CKD(Confirmed) Active 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 Depression(Confirmed) Active Insulin long-term use(Confirmed) Active Erectile dysfunction(Confirmed) Active Rash(Confirmed) Active Insulin long-term use(Confirmed) Active Hypercholesterolemia(Confirmed) Active Ineffective self health management(Confirmed) Active Right flank pain(Confirmed) Active Uncontrolled type 2 diabetes mellitus(Confirmed) Active Diabetes mellitus type 2, uncontrolled(Confirmed) Active Vital Signs Most recent to oldest [Reference Range]: 1 2 Height 172 cm (11/08/21 2:27 PM) 172 cm (11/08/21 2:19 PM) Weight 85.6 kg (11/08/21 2:19 PM) Oxygen Saturation [94-100 %] 99 % (11/08/21 2:19 PM) Pulse Rate [55-90 bpm] 90 bpm (11/08/21 2:19 PM) Body Mass Index [18.5-24.99] 28.93 *H* (11/08/21 2:19 PM) Blood Pressure [90-138/55-84 mm Hg] 155/ 96mm Hg *H* (11/08/21 2:27 PM) 161/84mm Hg *H* (11/08/21 2:19 PM) Temperature [96.8-100.4 DegF] 98.0 DegF (11/08/21 2:19 PM) Mode of Delivery (Oxygen) Room air (11/08/21 2:19 PM) Blood pressure sites Arm, left (11/08/21 2:27 PM) Arm, left (11/08/21 2:19 PM) Temperature Route Oral (11/08/21 2:19 PM) Weight Obtained Via Standing scale (11/08/21 2:19 PM) Social History Social History Type Response Smoking Status Never smoker entered on: 06/30/13 Sex
--- OUTSIDE RECORDS SUMMARY | 2023-04-11 06:07 | XMS_ITS | Continuity of Care Document ---
Author Name Unknown Organization [facility] [place] Terry lt Address [address] [place] [address]- Care Team Providers Care Rabies Inspector Name Role Phone Raysa JAY, Manpreet Garcia Primary Care Physician [place] [facility] [place] 12/21/20 - 01/20/21 [facility] [place] Adult [address] [place] [address]- Attending Physician: Yuridia Bowman Admitting Physician: AdmYuridia wang Referring Physician: AdmYuridia wang Allergies, Adverse Reactions, Alerts Substance Reaction Severity [...] n Patient Refuses 1Result Comment: [facility]-[id number] 2Admin Note: At work 3Admin Note: REFUSED [...] 11:44:00 EST, REC Powder, [facility]/pharmacy #[id number], test date 10/22/19, 240 mL By Mouth Every 10 minutes, 173, cm, 07/21/19 11:41:00 EST, Height, 86.5, kg, 06/04/19 13:20:00 EST,... Start Date: 08/03/19 Status: Ordered Trulicity Pen 1.5 mg/0.5 mL subcutaneous solution = 1.5 mg, Subcutaneous Infusion, Every week, # 12 each, 3 Refills, Maintenance, 07/27/20 15:47:00 EST, [facility], Partial fill upon patient request if the prescription is for a schedule II opioid drug., 173, cm, 07/25/20 16:14:00 E... Start Date: 07/27/20 Status: Ordered valsartan 80 mg oral tablet 80 mg, 1, tablet, By Mouth, Daily, # 90 tablet, Refills 1, Tot. Refills 1, Maintenance, 07/25/20 9:30:00 EST, Route to Pharmacy Electronically, [email or web address], 173, cm, 06/26/20 15:48:00 EST, [...]
--- OUTSIDE RECORDS SUMMARY | 2023-04-11 06:07 | XMS_ITS | Continuity of Care Document ---
Author Name Unknown Organization [facility] Terry lt Address [address] [place] [address]- Care Team Providers Care Fractionating Still Operator Name Role Phone Manpreet Tabares MD Primary Care Physician En[place] [facility] [place](s[place] 03/21/22 - 05/31/22 [facility] Adult [address] [place] [address]- Attending Physician: Manpreet Tabares MD Allergies, Adverse [...] Not Give n Patient Refuses 1Result Comment: [facility]-[id number] 2Admin Note: At work 3Admin Note: REFUSED [...] 11, Tot. Refills 11, Maintenance, Use with [facility] to test bloodsugars tid for E11.9, 04/23/22 [...] 0 Refills, Maintenance, 04/05/22 15:56:00 EDT, Tablet, [facility] #[id number], Partial fill upon patient request if the prescription is for a schedule II opioid drug. refill from PCP, 172, c... Start Date: 04/05/22 Stop Date: 05/05/22 Status: Ordered Metoprolol Tartrate 25 mg oral tablet 1 tablet = 25 mg, By Mouth, 2 times a day, # 60 tablet, 2 Refills, Maintenance, 05/29/22 13:45:00 EST, Tablet, [facility] #[id number], Partial fill upon patient request if the prescription is for a schedule II opioid drug. refill from PCP, 174, c... Start Date: 05/29/22 Stop Date: 08/27/22 Status: Ordered Trulicity Pen 1.5 mg/0.5 mL subcutaneous solution = 1.5 mg, Subcutaneous Infusion, Every week, # 12 each, 1 Refills, Maintenance, 05/24/22 11:14:00 EST, [facility] #[id number], Partial fill upon patient request if the prescription is for a schedule II opioid drug., 172, cm, 05/20/22 15:52:00 EST... Start Date: 05/24/22 Status: Ordered valsartan 160 mg oral tablet 160 mg, 1, tablet, By Mouth, Daily, # 90 tablet, Refills 0, Tot. Refills 0, Maintenance, 05/29/22 10:46:00 EST, Route to Pharmacy Electronically, [facility] #[id number], Partial fill upon patient request if the [...] Name: Raysa JAY, Manpreet Garcia Position: [facility] Primary Care Physician Member Role: PCP Address: Address: [address] [place] [address]- Care Team Related Persons Name: ADINA PIERRE Address: home [address] [place] [address] Name: KANDACE PIERRE Address: [address] [place] [address] UM Name: ZACK PIERRE Address: [address] [place] [address]
--- OUTSIDE RECORDS SUMMARY | 2023-04-11 06:07 | XMS_ITS | Continuity of Care Document ---
Author Name Unknown Organization [facility] Address Unknown Care Team Providers Care Bird Keeper Name Role Phone Raysa JAY, Manpreet Garcia Primary Care Physician [phone] [place] [facility] [id number] Date(s): 10/12/21 - 11/11/21 [facility] Allergies, Adverse Reactions, Alerts Substance Reaction Severity [...] Give n Patient Refuses 1Result Comment: [facility]-[id number] 2Admin Note: At work 3Admin Note: REFUSED [...] 0 Refills, Maintenance, 09/26/21 17:25:00 EDT, Tablet, [facility]/pharmacy #[id number], Partial fill upon patient [...] 11/09/21 14:29:00 EDT, Route to Pharmacy Electronically, [facility]/pharmacy #[id number], Partial fill upon patient request... Start Date: [...]
--- OUTSIDE RECORDS SUMMARY | 2023-04-11 06:07 | XMS_ITS | Continuity of Care Document ---
Author Name Unknown Organization [facility] Terry lt Address [address] [place] [address]- Care Team Providers Care Tin Cutter Name Role Phone Raysa JAY, Manpreet Garcia Primary Care Physician [phone] Encounter [facility] [place] Date(s): 07/19/21 - 07/26/21 [facility] Adult [address] [place] [address]- Encounter Diagnosis COVID-19(Discharge Diagnosis) - 07/19/21 Attending Physician: Ovi KOEHLER, Moira Marks Allergies, Adverse Reactions, Alerts Substance Reaction Severity [...] Patient Refuses 1Result Comment: [facility]-[id number] 2Admin Note: At work 3Admin Note: REFUSED [...] Refills, Maintenance, 08/03/19 11:44:00 EST, REC Powder, [facility]/pharmacy #[id number], test date 10/22/19, 240 mL By Mouth Every 10 minutes, 173, cm, 07/21/19 11:41:00 EST, Height, 86.5, kg, 06/04/19 13:20:00 EST,... 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[facility] CKD(Confirmed) Active 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 Depression(Confirmed) Active Insulin long-term use(Confirmed) Active Erectile dysfunction(Confirmed) Active Rash(Confirmed) Active Insulin long-term use(Confirmed) Active Hypercholesterolemia(Confirmed) Active Ineffective self health management(Confirmed) Active Right flank pain(Confirmed) Active Uncontrolled type 2 diabetes mellitus(Confirmed) Active Diabetes mellitus type 2, uncontrolled(Confirmed) Active Diagnosis Diagnosis Type Effective Dates Health Status [facility] Informant COVID-19 Discharge Diagnosis 07/19/21 Vital Signs Most recent to oldest [Reference Range]: 1 Height 172 cm (07/19/21 10:15 AM) Social History Social History Type Response Smoking Status Never smoker entered on: 06/30/13 Sex
--- OUTSIDE RECORDS SUMMARY | 2023-04-11 06:07 | XMS_ITS | Continuity of Care Document ---
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 Refills 11, Maintenance, Use with Lincoln to test bloodsugars tid for E11.9, 04/23/22 [...] 0 Refills, Maintenance, 04/05/22 15:56:00 EDT, Tablet, [id number], Partial fill upon patient request if the prescription is for a schedule II opioid drug. refill from PCP, 172, c... Start Date: 04/05/22 Stop Date: 05/05/22 Status: Ordered Trulicity Pen 1.5 mg/0.5 mL subcutaneous solution = 1.5 mg, Subcutaneous Infusion, Every week, # 12 each, 1 Refills, Maintenance, 05/24/22 11:14:00 EST, [facility] #[id number], Partial fill upon patient request if the [...] opioid drug. Start Date: 02/05/22 Status: Ordered Walker See Instructions, # 1 [...] oldest [Reference Range]: 1 2 3 Height 174 cm (05/28/22 6:45 AM) 174 cm (05/28/22 6:45 AM) Weight 82.3 kg (05/28/22 6:45 AM) 82.3 kg (05/28/22 6:45 AM) Oxygen Saturation [94-100 %] 96 % (05/28/22 11:45 AM) 95 % (05/28/22 11:15 AM) 96 % (05/28/22 10:45 AM) Pulse Rate [55-90 bpm] 75 bpm (05/28/22 6:45 AM) Body Mass Index [18.5-24.99 kg/m2] 27.18 kg/m2 *H* (05/28/22 6:45 AM) Blood Pressure [90-138/55-84 mm Hg] 124/73mm Hg (05/28/22 11:45 AM) 122/70mm Hg (05/28/22 11:15 AM) 140/80mm Hg *H* (05/28/22 10:45 AM) Respiratory Rate [16-30 br/min] 22 br/min (05/28/22 11:45 AM) 22 br/min (05/28/22 11:15 AM) 19 br/min (05/28/22 10:45 AM) Temperature [96.8-100.4 DegF] 97.2 DegF (05/28/22 6:45 AM) Mode of Delivery (Oxygen) Room air (05/28/22 11:45 AM) Room air (05/28/22 11:15 AM) Room air (05/28/22 10:45 AM) Blood pressure sites Arm, left (05/28/22 11:45 AM) Arm, left (05/28/22 11:15 AM) Arm, left (05/28/22 10:45 AM) Temperature Route Temporal (05/28/22 6:45 AM) Social History Social History Type Response Smoking Status Never smoker entered on: 06/30/13 Sex Cardiac catheterization study * Event Display: Cardiac Health Facilities Surveyor Report Authored Date: Cardiac Diagnostic Report Demographics Patient Name IGNACIO ODONNELL Gender Male [employer] N [id number] Room Number [id number] Height 68.5 inches Date of 1965 Weight 181.44 pounds Age 56 year(s) BSA 1.97 m2 Accession Number [id number] BMI 27.18 kg/m2 Referring Physician Clifton Castro MD Date of Study 05/28/2022 Raysa Garcia MD Performing Physician Clifton Castro MD Fellow Houston Jean Interventional Physician Procedure Procedure Type Diagnostic procedure:Coronary Angiography with [facility] ACC Diagnostic Catheterization Status:Elective Indications Indications: Cardiomyopathy. Clinical History Admission Medications + +------+-------+ + + +---------+ !Medication !Dosage!Times !Last !Last !Administered !Comments ! ! ! !Per Day!Delivery !Delivery ! ! ! ! ! ! !Date !Time ! ! ! + +------+-------+ + + +---------+ !Statin (any) ! ! ! ! ! ! ! + +------+-------+ + + +---------+ !Aspirin (any)!324 mg! !05/28/2022 !08:05 !Yes ! ! + +------+-------+ + + +---------+ Clinical Evaluation Leading to Procedure - The patient's CAD presentation was assessed as: Stable angina. - The patient's anginal syndrome during the past two weeks was assessed as: Class II according to the [place] Cardiovascular Society Classification System (CCS). 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 Pharma Nuclear study showed Positive results with Intermediate ischemic risk. ACC Risk Factors The patient risk factors include:peripheral arterial disease, physical activity, hypercholesterolemia, hypertension, insulin-treated diabetes mellitus, chronic lung disease, last creatinine: 0.9 mg/dl, creatinine clearance: 105.42 ml/min, dyslipidemia and former tobacco use. Additional Clinical History:56-year-old with DM, HTN and HLD who previously had cardiomyopathy with ejection fraction 30-40 percent. He has chronic left bundle branch block. He has atypical chest pains and was seen at [facility]. He underwent echocardiography which showed ejection fraction 50 to 55% with regional wall motion normalities in the anterior septal and lateral vasquez. He underwent nuclear stress test which did not show any perfusion defect. given ongoing symptoms and wall motion normalities on the echocardiogram he was referred for diagnostic angiography. Procedure Data Procedure Date Date: 05/28/2022tart: 08:47End: 09:13 The procedure was explained in detail to the patient. Risks, complications and alternative treatments were reviewed. Written consent was obtained. Entry Locations - Retrograde Percutaneous access was performed through the Right Radial artery (Primary location). A 6 Fr sheath was inserted. Hemostasis was successfully obtained using TR Band. Closure Comments: 13cc at 0912 . Procedure Medications - Versed (Midazolam) I.V. 1 mg. - Fentanyl I.V. 50 mcg. - Versed (Midazolam) I.V. 0.5 mg. - Fentanyl I.V. 25 mcg. - Lidocaine 2% 3 ml. - Nitroglycerin I.A. 200 mcg. - Heparin I.V. 4000 units. Sedation: My intra-service moderate sedation time was: from 849 to 912. Refer to procedural log for detailed chronological information. Contrast Material - Omnipaque 45 ml Diagnostic Catheters - ADIAGNOSTIC CATH 5F JR4.0 100cm PERFORMAwas used for: Left heart catheterization. - ADIAGNOSTIC CATH 5F JR4.0 100cm PERFORMAwas used for: Right coronary angiography. - ADIAGNOSTIC CATH 5F JL3.5 100cm PERFORMAwas used for: Left coronary angiography. Fluoroscopy Time: Diagnostic: 3:48 minutes. Total: 3:48 minutes. Fluoroscopy Dose: Diagnostic: 497 mGy. Total: 497 mGy. Dose Area Product:Diagnostic: 2892.4366310282585 mGy/cm2. Total: 2892.4899850394878 mGy/cm2. Procedure Narrative We accessed the right radial artery using a 6 Slovak slender sheath. We crossed into LV and recorded LVEDP and performed a pullback gradient. Diagnostic angiography with JR4 and JL 3 5. We did not notice any significant disease. Hemostasis with the regular TR band. Angiographic Findings Cardiac Arteries and Lesion Findings LMCA: Normal. LAD: Minimal luminal irregularities. LCx: Minimal luminal irregularities. RCA: Minimal luminal irregularities. Hemodynamics Condition: Rest O2 Consumption: Estimated: 239.99Heart Rate: 80 bpm Pressures (mmHg) +-----+ + !Site !Pressure ! +-----+ + !LV !135/0 ,13 ! +-----+ + !AO !136/85 (106)! +-----+ + !LV !139/3 ,13 ! +-----+ + !AO !128/85 (105)! +-----+ + Valve Gradients and Areas +------+----+----+----+-----+----+------+ !Valve !Peak!Mean!Area!Index!Flow!Source! +------+----+----+----+-----+----+------+ !Aortic!3 !0 ! ! ! ! ! +------+----+----+----+-----+----+------+ !Aortic!3 !0 ! ! ! ! ! +------+----+----+----+-----+----+------+ Shunts Oxygen Values O2 Consumption 239.99 Interventional Procedure Conclusions Diagnostic Summary 56 years gentleman who has atypical chest pain and history of cardiomyopathy with left bundle branch block. Recent echocardiography showed ejection fraction 50 to 55% with wall motion abnormalities in the apical anterior, lateral and septal segments. Nuclear perfusion imaging did not show any perfusion defects. Given ongoing chest discomfort and risk factors for coronary disease he was referred for diagnostic angiography. Hemodynamics: Elevated systemic pressures. Normal LVEDP. There is no significant gradient across aortic valve on pullback. Coronary anatomy: Minimal disease as described above. The patient presenting for known history of cardiomyopathy with improvement in EF to 50 to 55%. He has LBBB. He has nonischemic cardiomyopathy. He has noncardiac chest pain. Diagnostic Recommendations Aggressive secondary risk factor modification according to ATP III guidelines. Consider evaluation for non-cardiac causes of symptoms. For cardiomyopathy continue guideline directed medical therapy. ACC Diagnostic Recommendations: Medical therapy and/or counseling. Complications:None. Signatures * Event Display: Cardiac Health Facilities Surveyor Report Authored Date: Note * Event Display: Hemodynamic Procedure Report Authored Date: * Tiffanie Lamas: PERFORM Event Display: Discharge/Transfer Note Hospital Authored Date: Nursing Discharge Note Entered On: 05/28/2022 12:41 EST Performed On: 05/28/2022 12:41 EST by Tiffanie Lamas Nursing Discharge Note 2 Discharge Time : 05/28/2022 12:40 EST Discharge Level of Care at Discharge : Home/[facility] Care Patient Left Unit Via : Wheelchair Patient Accompanied Off Unit with : Responsible adult DC Instructions Provided & Signed by Pt : Yes Patient Understands D/C Instructions : Yes Patient Instructions Discharge Signed : Yes Did Pt have Specialty Bed or Wound Vac : No Tiffanie Lamas - 05/28/2022 12:41 EST * Tiffanie Lamas: MODIFY, PERFORM Event Display: Patient Education/Instruction Authored Date: [id number] Inpatient Adult Discharge Instructions [address] [address] Name: BELLE PIERRE : 1965 Visit: 05/28/2022 06:09:00 Current Date: 05/28/2022 09:28 Account: [id number] Inpatient Adult Discharge Instructions We would like [...] and their families. Surveys are administered by [employer] ?? If further treatment with your primary care physician or another doctor is recommended, it is important for you to keep the appointment. Call your primary care physician or return to the Emergency Department immediately if your condition worsens, fails to improve, or new symptoms develop. If you need to find a doctor, you can call [facility] for a referral at [phone] or toll free at [phone] or log in to [email or web address].. ?? You can view and manage your care through the patient portal or by using a health care yudy of your choosing. [employer] is a website that allows you to securely view your medical information including your hospital discharge summary, office visit summaries, medications and follow-up visits. You can also request appointments, renew medications, and request access to your medical information using a health care yudy of your choosing, or just ask a question. You can enroll at [email or web address] or register during your next office visit. You have been discharged from [facility], Patient Care Unit: CARE. If you have any questions regarding these instructions after you leave, please call us and we will be happy to assist you. [facility] Your Care Team Attending Physician Clifton Castro MD Discharging Providers Houston Jean MD Reason for Admission HEART DISEASE,LHC,HV2DST ARRIVAL 630AM Tests Performed Below is a partial list of the tests performed during your hospitalization. You may have had other tests and procedures not included in this list. Please discuss all test results with your provider. GLUCOSE POC Primary Care Provider Manpreet Tabares MD Advance Directive Health Care Proxy on File Yes - Health Care Proxy No qualifying data available. Discharge Vitals Temperature: 97.2 DegF Height: 174 cm Pulse Rate: 75 bpm Height: 174 cm Respiratory Rate: 25 br/min Weight: 82.3 kg Systolic Blood Pressure:??149 mm Hg??High Weight: 82.3 kg Diastolic Blood Pressure:??95 mm Hg??High Body Mass Index:??27.18 kg/m2??High Oxygen Saturation: 99 % Body surface area: 1.99 Studies Pending All tests and labs ordered during this hospital stay have been completed unless listed below. Please discuss all pending results with your provider listed above in these instructions. ?? Type and Screen What to do next Instructions From Your Doctor Discharge Orders Instructions from your Care Team if you have questions or concerns, you may call the CARE unit at [phone] Scheduled Follow-Up Appointments Friday 4:15 PM EST ?? With: Manpreet Tabares MD Where: [facility] [address] [address]- Friday 3:05 PM EST ?? With: Manpreet Tabares MD Where: [facility] [address] [address]- Discharge Medications BELLE PIERRE :1965 Visit Date:05/28/2022 Medications: Please continue your medications until treatment is completed or stopped by your provider. Medications not listed below should be discontinued. Discuss any questions related to medications with your provider. What How Much When Instructions Next Dose Unchanged Aripiprazole (ARIPiprazole 2 mg oral tablet) 1 tab(s) Oral Daily continue taking as prescribed Unchanged Atorvastatin (Lipitor 80 mg oral tablet) 1 tab(s) Oral Daily continue taking as prescribed Unchanged BuPROpion (buPROPion 150 mg/ 24 hours (XL) oral tablet, extended release) 1 tab(s) Oral Every 24 hours continue taking as prescribed Unchanged BuPROpion (buPROPion 300 mg/ 24 hours (XL) oral tablet, extended release) 1 tab(s) Oral Daily continue taking as prescribed Unchanged Divalproex Sodium (Depakote 250 mg oral enteric coated tablet) 1 tab(s) Oral Twice a day continue taking as prescribed Unchanged dulaglutide (Trulicity Pen 1.5 mg/ 0.5 mL subcutaneous solution) 1.5 Milligram Subcutaneous Infusion Every week continue taking as prescribed Unchanged Durable Medical Equipment ([employer] Letitia 2 Sensors) See instructions Use with Lincoln to test blood sugars tid for E11.9 ?? Unchanged Durable Medical Equipment (Knee scooter) See instructions Dx: Osteomylitis left foot left foot ulcer Ht: ??5'8 Wt: 170 lbs ?? Unchanged Durable Medical Equipment (Walker) See instructions Please use your walker until you are more steady on your feet and have less dizziness. ?? Unchanged Metformin (MetFORMIN (Eqv-Glucophage XR) 500 mg oral tablet, extended release) 2 tab(s) Oral Twice a day start taking again on 05/30/22 in the evening Unchanged Metoprolol (Metoprolol Tartrate 25 mg oral tablet) 1 tab(s) Oral Twice a day Duration: 30 Days continue taking as prescribed Unchanged sitagliptin (Januvia 50 mg oral tablet) 1 tab(s) Oral Daily continue taking as prescribed Unchanged Valsartan (valsartan 160 mg oral tablet) 1 tab(s) Oral Daily continue taking as prescribed Test Results Below is a partial list of the most recent Laboratory test results done prior to this discharge. You may have had other tests and procedures not included in this list. Please discuss all test resultswith your provider. 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 Benign hypertension?? Borderline personality disorder?? Cystic disease [...] Educational Leaflet Providered with your Discharge Instructions. Surgery Radial Cath Approach Discharge Instructions?? Recovery After Procedural Sedation (Adult)?? Discharge Instructions for Cardiac Catheterization?? Bleeding or Hematoma After Cardiac Catheterization?? Valuables and Belongings I fully understand and agree that [facility] accepts no responsibility for all my personal [...] patient Date for Pt to Sign Valuables/Belongings: 05/28/22 08:37:00 ?? Other Discharge Information ? Pulmonary Rehab Status?? Pulmonary Rehab Discharge Status?? Respiratory Rate: 25 br/min ? Common Emergency Awareness Tips IS [...] are strongly encouraged to quit. Please call [facility] at [phone] or [phone]) or log in to [email or web address] for referrals to smoking cessation programs. ?? The National Suicide Prevention Hotline is available 03/02 if you or someone you know needs to find a reason to keep living. By calling 4-814-985-DadShed (1495) you'll be connected to a skilled, trained counselor at a crisis center in your area. INPATIENT DISCHARGE INSTRUCTIONS SIGNATURE PAGE BELLE PIERRE Location:[facility] Registration Date and Time:05/28/2022 06:09 [facility] Primary Care Physician: Raysa JAY, Manpreet Garcia, I BELLE PIERRE, have received the above patient education materials/instructions and have verbalized understanding. If ambulance or transport services are being used I further acknowledge being given a choice of service. ?? If you need to contact me, please call me at this number: . Patient/Business Account Manager Name: Patient/Business Account Manager Signature: Relationship to Patient: Witness Name/Signature: Date: * Tiffanie Lamas: PERFORM Event Display: Patient Education Leaflets Authored Date: [id number] Surgery Radial Cath Approach Discharge Instructions ?? 278 Radial Cath Approach Discharge Instructions ?? Activity Take it easy the rest of the day. Limit your activity on the affected side.?? Act as if your arm is broken for 24 hours. No lifting with affected arm for 24 hours. No pushing or pulling with the affected arm. Do not reach or lift with the affected arm. Do not place excessive pressure on the wrist. ?? Precautions Due to intravenous sedation: It is recommended that someone stay with you for the first night after your procedure. Do not drive or operate hazardous machinery for 24 hours. Do not make legal decisions for 24 hours. Avoid alcohol for 24 hours. Unless directed otherwise, keep yourself hydrated. ?? Dressing/Incision Care You may remove the dressing 24 hours after your procedure. Replace with band aid for an additional 24 hours. You may shower and cleanse the site with soap &&water then pat dry. Avoid submersion of site in water x 5 days. Cover the with a clean band aid daily until site is healed. If the band aid becomes soiled, replacewith a clean new one. Do not apply any ointments, lotions, gels or powders to the puncture site. ?? When to contact your doctor If any of the following signs of infection occur: Fever greater than 100 degrees F Increased pain Drainage, redness or warmth at puncture site Tingling of the fingers and hand that last longer than 3 days Slight bubble of blood or bleeding from site: apply manual pressure and notify your doctor ?? Emergency situations: Bleeding from the site that will not stop: apply manual pressure and notify your doctor Profuse bleeding streaming from the puncture site: Apply manual pressure and notify your doctor immediately If your hand becomes bluish, cold to the touch, or painful, notify your doctor immediately or go toEmergency Department. For these emergent situations: If unable to contact your physician, call 911. ?? * Tiffanie Lamas: PERFORM Event Display: Patient Education Leaflets Authored Date: [id number] Recovery After Procedural Sedation (Adult) ?? [id number] Recovery After Procedural Sedation (Adult) You have been given medicine by vein to make you sleep during your procedure. This may have included both a pain medicine and sleeping medicine. Most of the effects have worn off. But you may still have some drowsiness for the next 6 to 8 hours. Home care Follow these guidelines when you get home: ??? For the next 8 hours, you should be watched by a responsible adult. This person should make sure your condition is not getting worse. ??? Don't drink any alcohol??for the next 24 hours. ??? Don'tdrive, operate dangerous machinery, or make important business or personal decisions??during the next 24 hours. Note: Your healthcare provider may tell you not to take any medicine by mouth for pain or sleep in the next 4 hours. These medicines may react with the medicines you were given in the hospital. This could cause a much stronger response than usual. ?? Follow-up care Follow up with your healthcare provider as advised. Also follow up with your provider if you are not alert and back to your usual level of activity within 12 hours. ?? When to seek medical advice Have someone call your healthcare provider right away if any of these occur: ??? Drowsiness gets worse ??? Weakness or dizziness gets worse ??? Repeated vomiting ??? Severe or ongoing pain from the procedure that's not eased by the pain medicine (if prescribed) ??? Fever ??? New rash ?? Call 911 Have someone call 911 if you have any of these: ??? Shortness of breath ??? Chest pain ??? Loss of consciousness or you can't be awakened ?? Last Reviewed Date: 2021 ?? 0901-5318 The [employer]. All rights reserved. This information is not intended as a substitute for professional medical care. Always follow your healthcare professional's instructions. ?? * Tiffanie Lamas: PERFORM Event Display: Patient Education Leaflets Authored Date: [id number] Discharge Instructions for Cardiac Catheterization ?? [address] Discharge Instructions for Cardiac Catheterization Cardiac catheterization??is an invasive??procedure??to look for certain heart problems. These problems may affect the heart's chambers, valves, and blood vessels. A thin, flexible tube (catheter) is put in a blood vessel in your groin or arm. The catheter is moved to the heart. The healthcare provider can look at the blood flow, blood pressure, and oxygen. They can inject contrast fluid??into your blood. This flows to your heart.??The provider can then take X-rays pictures?? of your heart. Coronary angiography is often done as part of a cardiac cath. This looks for blocked areas in the arteries that send blood to the heart. If a blockage is found, your provider may try to open up the artery. They may put a stent in place. Your provider will talk with you about the results of your procedure . Ask any questions you have before you leave. This sheet will help you take care of yourselfat home. Home care ??? Have a responsible adult drive you home after your procedure. ??? Don't drive or makeany important decisions for at least 24 hours after getting any type of sedation or anesthesia.? Drink?? 6 to 8??glasses of water over the next 24 hours. This is to help flush the contrast dye out of your body. Call your healthcare team if your urine has any change in color. ??? Take your tempe rature each day for 3 to 5 days. If you feel cold and clammy or start sweating, take your temperature right away. Call your healthcare team. ??? Do only light and easy activities for??the next?? 2 to3??days. Ask for help with chores and errands while you recover. Have someone drive you to your appointments. ??? Don't lift anything heavy??until your healthcare team says it's safe. ??? Ask your healthcare team when you can expect to return to work. Unless your job involves lifting, you may be able to return to your normal activities within 2 days. ??? Take your medicines as directed. Don't skip doses. ??? Check your incisions every day for signs of infection. These include redness, swelling,and fluid leaking. It's normal to have a small bruise or bump where the catheter was put in. A bruise that's getting larger is not normal. Tell your healthcare team about this. Call your healthcare team if you see blood forming in the incision. Go to the emergency room if you have uncontrolled bleeding from the artery site. This is even more important if you take medicines that make it hard for your blood to clot. These include aspirin, clopidogrel, warfarin, apixaban, and rivaroxaban. ??? Eat a healthy diet. Make sure it's low in fat, salt, and cholesterol. Ask your healthcare team for diet information. ??? Stop smoking. Sign up for a quit-smoking program. Or ask your healthcare team for help. ??? Exercise as your healthcare team tells you to. Your healthcare team??may advise you to start a cardiac rehab program. Cardiac rehab is an exercise program where trained healthcare staff watchyour progress and stress on your heart while you exercise. Ask your team how to enroll. ??? Don't swim or take baths until your healthcare team says it???s OK. You can shower the day after the procedure. Keep the site clean and dry. This keeps the incision from getting wet and infected until the skin and artery can heal. ??? Follow all other after-care instructions from your team.? Follow-up care ??? Make a follow-up appointment as advised. It's common to have a follow-up appointment 2 to 4 weeks after an angioplasty or coronary stent procedure. ??? Make a yearly appointment. This is??to make sure you're still doing well and not having any new symptoms. ??? Don't wait for a follow-up appointment if your medicines aren't working or you're having heart-related symptoms. Call your healthcare provider. ?? When to get medical care Call your healthcare provider right away if you have any of these: ??? Severe or increasing pain, numbness, coldness, or a bluish color in the leg or arm that held the catheter ??? Fever of 100.4?? F??( 38??C) or higher, or as advised by your healthcare provider ??? Signs of infection at the incision site. These include redness, swelling, drainage, or warmth. ??? Bleeding, bruising, or a lot of??swelling where the catheter was inserted ??? Blood in your urine ??? Black or tarry stools ??? Any unusual bleeding ??? Irregular, very slow, or fast heartbeat ??? Dizziness ?? Call 911 Call 911 if you have any of these: ??? Chest pain ??? Shortness of breath ??? Sudden numbness or weakness in arms, legs, or face, or trouble speaking ??? The puncture site swells up very fast ??? Bleeding from the puncture site that doesn't slow down with firm pressure ?? Last Reviewed Date: 2021 ?? [id number] The [employer]. All rights reserved. This information is not intended as a substitute for professional medical care. Always follow your healthcare professional's instructions. ?? EKG study * Event Display: ECG 12-Lead Authored Date: Please click on pdf link to open report * Event Display: ECG 12-Lead Authored Date: Ventricular Rate: 76 BPM Atrial Rate: 76 BPM P-R Interval: 152 ms QRS Duration: 146 ms Q-T Interval: 464 ms QTC Calculation(Bazett): 522 ms P [place]: 36 degrees R [place]: 18 degrees T [place]: 69 degrees Normal sinus rhythm Left bundle branch block Abnormal ECG When compared with ECG of 05-APR-2022 12:51, No significant change was found Confirmed by ENRIQUE LEROY MD ([id number]) on 05/28/2022 6:33:02 PM [place]: ENRIQUE LEROY MD Patient Care team information Care Team Personnel Name: Kelly Swanson RN Position: [facility] RN Member Role: Primary Care Nurse Name: Hoa Booth RN Position: S RN Member Role: Primary Care Nurse Name: Manpreet Tabares MD Position: [facility] Primary Care Physician Member Role: PCP Address: Address: [address] [place] [id number] Care Team Related Persons Name: ADINA PIERRE Address: home [address] [place] [address] Name: KANDACE PIERRE Address: home [address] [place] [address] Name: NAIESTHERZACK Address: [address] [place] [address]
--- OUTSIDE RECORDS SUMMARY | 2023-04-11 06:07 | XMS_ITS | Continuity of Care Document ---
Author Name Unknown Organization [facility] Address [address] [place] [address]- Care Team Providers Care Superintendent Communications Name Role Phone Raysa JAY, Manpreet Garcia Primary Care Physician Encounter [facility] Date(s): 08/30/20 - 09/06/20 [facility] Adult [address] [place] [address]- Encounter Diagnosis Right flank pain(Discharge Diagnosis) - 08/30/20 Rash(Discharge Diagnosis) - 08/30/20 Attending Physician: Jaci KERSEY DEPARTMENT SUPERVISOR, Maria Dolores Allergies, Adverse Reactions, Alerts Substance [...] Patient Refuses 1Result Comment[facility][id number] 2Admin Note: At work 3Admin Note: REFUSED [...] 11:12:00 EST, Route to Pharmacy Electronically, [facility]/pharmacy #[id number], Partial fill upon patient [...] Maintenance, 08/03/19 11:44:00 EST, REC Powder, [facility]/pharmacy #[id number], test date 10/22/19, 240 [...] Active 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w [facility] CKD(Confirmed) Active 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 Depression(Confirmed) Active Insulin long-term use(Confirmed) Active Erectile dysfunction(Confirmed) Active Rash(Confirmed) Active Insulin long-term use(Confirmed) Active Hypercholesterolemia(Confirmed) Active Ineffective self health management(Confirmed) Active Right flank pain(Confirmed) Active Uncontrolled type 2 diabetes mellitus(Confirmed) Active Diabetes mellitus type 2, uncontrolled(Confirmed) Active Diagnosis Diagnosis Type Effective Dates Health Status Cl inical Service Informant Right flank pain Discharge Diagnosis 08/30/20 Rash Discharge Diagnosis 08/30/20 Vital Signs Most recent to oldest [Reference Range]: 1 Height 173 cm (08/30/20 3:14 PM) Social History Social History Type Response Smoking Status Never smoker entered on: 06/30/13 Sex
--- OUTSIDE RECORDS SUMMARY | 2023-04-11 06:07 | XMS_ITS | Continuity of Care Document ---
Author Name Unknown Organization [facility] Address [address] [place] [address]- Care Team Providers Care Ammunition Components Inspector Name Role Phone Raysa JAY, Manpreet Garcia Primary Care Physician [phone] Encounter [facility] Date(s): 07/27/20 - 08/26/20 [facility] Adult [address] [place] [address]- Attending Physician: Yuridia Bowman Admitting Physician: AdmYuridia [...] Comment: [facility]-[id number] 2Admin Note: At work 3Admin Note: REFUSED [...] Refills, Maintenance, 08/03/19 11:44:00 EST, REC Powder, [facility]/pharmacy #[id number], test date 10/22/19, 240 mL By Mouth Every 10 minutes, 173, cm, 07/21/19 11:41:00 EST, Height, 86.5, kg, 06/04/19 13:20:00 EST,... Start Date: 08/03/19 Status: Ordered sitaGLIPtin 50 mg oral tablet 1 tablet = 50 mg, By Mouth, Daily, # 7 capsule, 0 Refills, Maintenance, 05/28/20 17:03:00 EST, [facility]/pharmacy #[id number], Partial fill upon patient request, 173, [...]
--- NOTE | 2023-04-11 06:45 | HO.ANESPROP2 ---
[facility] Active Problems Active Problems: All Active Problems (Updated 04/02/23 @ 00:03 by Background Daemon) Blurred vision (Acute) Major depressive disorder, recurrent severe without psychotic features (Acute) ILD (interstitial lung disease) (Acute) Persistent cough (Acute) Acute respiratory failure with hypoxia (Acute) Community acquired pneumonia (Acute) Dizziness (Acute) Past Medical History Medical History (Updated 04/02/23 @ 00:03 by Background Daemon) Suicidal ideation Heart disease, unspecified Major depressive disorder, recurrent severe without psychotic features ILD (interstitial lung disease) Preop cardiovascular exam Osteomyelitis Diabetic foot ulcer LBBB (left bundle branch block) Type 2 diabetes mellitus with foot ulcer HTN (hypertension) Suicidal ideation Depression Family History Family History Father Neck malignant neoplasm Family history of problems with anesthesia: No Surgical History Surgical History H/O: vasectomy History of Problems with Anesthesia: No Social History Social History Household Members: Family Housing: House Do you presently have visiting nurse or other home services: No Alcohol intake: current Alcohol intake frequency: a few times a month Patient Tobacco Use Status: Never used Tobacco e-Cigarette/Vaping Use: Never Used Second Hand Smoke Exposure: No Substance Use Type: Marijuana Advance Directives: No Advance Directives Information Provided: Yes Advance Directives Date on File: 04/11/22 service: No Current occupational status: employed Sexual orientation: Straight/Heterosexual Meds Allergies Allergy/AdvReac Type Severity Reaction Status Date / Time codeine [CODEINE] Allergy Unknown delayed Verified 11/25/22 10:40 responses 02/24/17 Home Medications Medication Instructions Recorded Confirmed Last Taken Type metformin 1,000 mg tablet,extended 1,000 mg PO BID 11/15/22 03/07/23 11/15/22 History release 24hr sitagliptin phosphate 50 mg tablet 50 mg PO DAILY 11/15/22 03/07/23 11/15/22 History (Januvia) valsartan 160 mg tablet 160 mg PO DAILY 11/15/22 03/07/23 11/15/22 History dulaglutide 1.5 mg/0.5 mL 1.5 mg subcut QWEEK 03/07/23 03/07/23 Unknown History subcutaneous pen injector (Trulicity) Exam Exam Date and Time: April 11, 2023 0645 Height,Weight and Vital Signs: Height 5 ft 8 in Weight 86.183 kg Last Vital Signs Temp 96.8 F 04/11/23 06:30 Pulse 85 04/11/23 06:30 Resp 15 04/11/23 06:30 BP 153/71 H 04/11/23 06:30 Pulse Ox 97 04/11/23 06:30 O2 Del Method Room Air 04/11/23 06:30 Airway Mallampati Class: II TM Dist: >3cm Neck ROM: Full Denture: Upper and Lower Heart: rrr Lungs: cta Assessment and Plan Assessment Anesthesia Assessment: Anesthesia Plan Discussed and Chart Reviewed Final Anesthetic Review Family History of Problems with Anesthesia: No History of Problems with Anesthesia: No NPO: Yes ASA Class: III Final Preanesthetic Review: No Changes in Pt Med Stat, Meds/Allgs Chart Reviewed and Consent Obtained/Reviewed Patient Risk: Intermediate Procedure Risk: Intermediate Anesthetic Plan Anesthetic Plan: GA Disposition: Standard PACU
[2023-04-11 06:51] LABS: Glucose, Whole Blood 154 mg/dL (60-115)
--- NOTE | 2023-04-11 07:01 | MHC.SHP ---
Pre-Procedural Eval Section A Date of Service: 04/11/23 The patient is an INPATIENT: Yes Changes since office visit: Yes Patient answered all questions; No Cold of Flu in the past 2 weeks, No New Medical Problems and No Changes in Medication The History & Physical has been completed within 30 days and I have reviewed it.: No Section B Chief Complaint: depression Allergies: Allergies Allergy/AdvReac Type Severity Reaction Status Date / Time codeine [CODEINE] Allergy Unknown delayed Verified 11/25/22 10:40 responses 02/24/17 Plan I have reviewed the history and physical and performed a pertinent physical examination on my patient. No changes have occurred unless specified. Time Spent With Patient Time: Total time managing care of this patient today ____ minutes.
--- NOTE | 2023-04-11 07:03 | HO.ECTPROC ---
ECT Procedure Note Diagnosis/Treatment Date of Service: 04/11/23 Diagnosis: Major Depressive Disorder Previous ECT Date: 04/02/23 Current Treatment Number: 9 Treatment: Series Interval Clinical Notes: pt doing well no c/o side effects took antihyp at home prior to tx able to rtw have shown a clear response to ECT much dunaway range of affect cognitively clear Time: Total time managing care of this patient today _35___ minutes. ECT Settings Device: THYMATRON DGx Electrode Placement: Right Unilateral Program/Pulse Width: 0.50 Energy Percent: 100 Seizure Duration By EEG (in seconds): 51 Medications Administration General Anesthetic: Etomidate (14) Muscle Relaxant: Succinylcholine (140) and Rocuronium (5) Ancillary Medications Analgesics: Torodol - Pre ECT (30) Anti-emetics: Zofran - Pre ECT (4) Cardiovascular Medications: Labetolol (5 pre) Miscillaneous Medications: Other (IV Ativan post for anxiety some agitation) Airway Management Airway Management: Bag Mask Ventilation Treatment Recommendations Notes: hypertensive post needed iv nitro give all ntihyp with sip of water prior to tx at home ? ivlabetolol next tx did get 5 mg labetalol pre 25+ 25 nitroglycerin some IV Ativan post was helpful continue maintenance treatment follow-up treatment 2 weeks approximately
[2023-04-11] MEDS: LORazepam 2 MG/ML VIAL 1 MG IVPUSH (07:22)
[2023-04-11] MEDS: Acetaminophen 325 MG TABLET 650 MG PO (09:02)
== END 2023-04-11 09:54 | disposition home or self-care (01) ==
PROVIDERS: PCP Family Medicine; Visit Provider Psychiatry & Neurology Psychiatry
PROC: (CPT 90870; principal; 2023-04-11 07:30)
DX: F33.2 Major depressive disorder, recurrent severe without psychotic features (principal); R45.851 Suicidal ideations; I10 Essential (primary) hypertension; E11.621 Type 2 diabetes mellitus with foot ulcer; L97.509 Non-pressure chronic ulcer of other part of unspecified foot with unspecified severity; Z79.85 Long-term (current) use of injectable non-insulin antidiabetic drugs; I44.7 Left bundle-branch block, unspecified; J84.9 Interstitial pulmonary disease, unspecified; Z79.899 Other long term (current) drug therapy; Z88.5 Allergy status to narcotic agent; Z98.52 Vasectomy status
CPT/HCPCS: 82947; 90870; J0330; J1885; J2060; J2405

== ENCOUNTER → 2023-04-11 06:00 | Outpatient (BNV) | payer BC, SELFPAY | PROVIDERS: PCP Family Medicine; Visit Provider Psychiatry & Neurology Psychiatry | DX: F33.3 Major depressive disorder, recurrent, severe with psychotic symptoms (principal) | CPT/HCPCS: 90870 ==

== ENCOUNTER 2023-04-25 06:05 | Day surgery (SDC) | payer BC, SELFPAY ==
[2023-04-25] VITALS (13 sets, daily range): BP systolic 126–191; BP diastolic 55–92; PULSE 70–84; RESP 18–20; TEMP 36.1–36.3; O2SAT 92–99; BMI 28.9
--- OUTSIDE RECORDS SUMMARY | 2023-04-25 06:11 | XMS_ITS | Continuity of Care Document ---
Author Name Unknown Organization [facility] Address [address] [place] [address]- Care Team Providers Care Firepot Operator And Tender Name Role Phone Raysa JAY, Manpreet Garcia Primary Care Physician [phone] Encounter [facility] Date(s): 04/04/23 - 04/11/23 [facility] Adult [address] [place] [address]- Encounter Diagnosis Major depressive disorder, recurrent(Discharge Diagnosis) - 04/04/23 Benign hypertension(Discharge Diagnosis) - 04/04/23 Attending Physician: Wali KOEHLER, Anila Lucas Referring Physician: Raysa JAY, Manpreet Garcia Allergies, Adverse Reactions, Alerts Substance Reaction Severity Status codeine loopy Active Immunizations Given and Recorded Vaccine Date Status Refusal Reason [id number] 12y+ bivalent booster vax 06/04/22 Recorded influenza [...] (oldterm) 4 11/26/10 Gi thong 1Result Comment: [facility]-[id number] 2Admin Note: At work 3Admin Note: REFUSED 4Admin Note: 2008 OLD PCP Medications Abilify 5 mg oral tablet 5 mg, 1, tablet, By Mouth, Daily, Refills 0, Maintenance, 04/04/23 10:29:00 EDT, Partial fill upon patient request if the prescription is for a schedule II opioid drug. Start Date: 04/04/23 Status: Ordered amLODIPine 10 mg oral tablet 10 mg, 1, tablet, By Mouth, Daily, # 30 tablet, Refills 0, Tot. Refills 0, Maintenance, 04/04/23 10:33:00 EDT, Route to Pharmacy Electronically, [facility]/pharmacy #[id number], Partial fill upon patient request if the prescription is for a schedule II opioid drug... Start Date: 04/04/23 Status: Ordered atorvastatin 80 mg oral tablet 1 tablet, By Mouth, Daily, # 30 tablet, 11 Refills, Maintenance, 01/24/23 15:00:00 EDT, [id number], 173, cm, 11/28/22 16:13:00 EDT, Height, 84, [...] opioid drug. Start Date: 04/04/22 Status: Ordered duloxetine 30 mg oral enteric coated capsule 1 capsule = 30 mg, By Mouth, Daily, # 30 capsule, 0 Refills, Maintenance, 04/04/23 10:44:00 EDT, Partial fill upon patient request if the prescription is for a schedule II opioid drug. Start Date: 04/04/23 Status: Ordered FreeStyle Letitia 2 Sensors See [...] tablet, 2 Refills, Maintenance, 03/28/23 12:37:00 EDT, [id number], 173, cm, 02/21/23 6:58:00 EDT, Height, 84, kg, 02/20/23 8:15:00 EDT, Dry Weight Start Date: 03/28/23 Status: Ordered Lantus Solostar Pen 100 units/mL subcutaneous solution See Instructions, INJECT 10 UNITS SUBCUTANEOUS INJECTION DAILY AT BEDTIME,X30 DAYS, # 15 Unknown, 3Refills, Maintenance, 02/25/23 6:35:00 EDT, [id number], 173, cm, 02/21/23 6:58:00 EDT, Height,84, kg, 02/20/23 8:15:00 EDT, Dry Weight Start Date: 02/25/23 Status: Ordered melatonin 3 mg oral tablet 1 tablet = 3 mg, By Mouth, Daily at bedtime, # 30 tablet, 0 Refills, Maintenance, 04/04/23 10:44:00EDT, Partial fill upon patient request if the prescription is for a schedule II opioid drug. Start Date: 04/04/23 Status: Ordered MetFORMIN (Eqv-Glucophage XR) 500 mg oral tablet, extended release 2 tablet, By Mouth, 2 times a day, # 360 tablet, 1 Refills, 01/22/23 13:15:00 EDT, [id number], 173, cm, 05/18/23 16:13:00 EDT, Height, 84, kg, 08/27/22 17:57:00 EST, Dry Weight Start Date: 01/22/23 Status: Ordered mirtazapine 15 mg oral tablet 1 tablet = 15 mg, By Mouth, Daily at bedtime, # 30 tablet, 0 Refills, Maintenance, 04/04/23 10:44:00 EDT, Tablet, Partial fill upon patient request if the prescription is for a schedule II opioid drug. Start Date: 04/04/23 Status: Ordered Trulicity Pen 1.5 mg/0.5 mL subcutaneous solution = 1.5 mg, Subcutaneous Infusion, Every week, # 6 mL, 2 Refills, Maintenance, 02/28/23 13:38:00 EDT,[facility]/pharmacy #[id number], Partial fill upon patient request if the prescription is for a schedule II opioid drug., 173, cm, 02/21/23 6:58:00 EDT, Height, 84,... Start Date: 02/28/23 Status: Ordered valsartan 160 mg oral tablet 160 mg, 1, tablet, By Mouth, Daily, # 90 tablet, Refills 3, Tot. Refills 3, Maintenance, 12/16/22 13:17:00 EDT, Route to Pharmacy Electronically, [facility]/pharmacy #[id number], Partial fill upon patient requestif the prescription [...] Diabetes mellitus type 2, uncontrolled Confirmed Active Diagnosis Diagnosis Type Effective Dates Health Status Clinical Service Informant Major depressive disorder, recurrent Discharge Diagnosis 04/04/23 Benign hypertension Discharge Diagnosis 04/04/23 Vital Signs Most recent to oldest [Reference Range]: 1 2 Height 173 cm (04/04/23 10:33 AM) 173 cm (04/04/23 10:21 AM) Weight 88.2 kg (04/04/23 10:21 AM) Pulse Rate [55-90 bpm] 82 bpm (04/04/23 10:21 AM) Body Mass Index [18.5-24.99 kg/m2] 29.47 kg/m2 *H* (04/04/23 10:21 AM) Blood Pressure [90-138/55-84 mm Hg] 260/ 82mm Hg *H* (04/04/23 10:33 AM) 158/82mm Hg *H* (04/04/23 10:21 AM) Temperature [96.8-100.4 DegF] 98.6 DegF (04/04/23 10:21 AM) Blood pressure sites Arm, left (04/04/23 10:21 AM) Temperature Route Oral (04/04/23 10:21 AM) Weight Obtained Via Standing scale (04/04/23 10:21 AM) Social History Social History Type Response Smoking Status Never smoker entered on: 06/30/13 Sex Male Patient Care team information Care Team Personnel Name: Kelly Swanson RN Position: [facility] RN Member Role: Primary Care Nurse Name: Luis Miller RN Position: [facility] RN Member Role: Primary Care Nurse Name: Hoa Booth RN Position: [facility] RN Member Role: Primary Care Nurse Name: Manpreet Tabares MD Position: [facility] Physician - Primary Care Member Role: PCP Address: Address: [address] [place] [id number] Name: Eliane Shelton RN Position: [facility] RN Member Role: Primary Care Nurse Name: Faith Dixon RN Position: [facility] RN Member Role: Primary Care Nurse Name: Aretha Ray Position: [facility] [place] Multimedia Services Coordinator Member Role: R And D Lab Technician Care Team Related Persons Name: ADINA PIERRE Address: home [address] [place] [address] Name: IGNACIO KANDACE Address: home [address] [place] [address] Name: ZACK PIERRE Address: [address] [place] [address]
--- OUTSIDE RECORDS SUMMARY | 2023-04-25 06:11 | XMS_ITS | Continuity of Care Document ---
Author Name Unknown Organization [facility] Address [address] [place] [address]- Care Team Providers Care Hvac Commercial Salesperson Name Role Phone Raysa JAY, Manpreet Garcia Primary Care Physician [phone] Encounter [facility] Date(s): 03/25/23 - 04/24/23 [facility] Adult [address] [place] [address]- Allergies, Adverse Reactions, Alerts Substance Reaction Severity Status codeine loopy Active Immunizations Given and Recorded Vaccine Date Status Refusal Reason [id number] 12y+ bivalent booster vax 06/04/22 Recorded influenza [...] (oldterm) 4 11/26/10 Gi thong 1Result Comment: [facility]-[id number] 2Admin Note: At work 3Admin Note: REFUSED 4Admin Note: 2009 OLD PCP Medications Abilify 5 mg oral [...] 04/04/23 10:33:00 EDT, Route to Pharmacy Electronically, [facility]/pharmacy #[id number], Partial fill upon patient request if the prescription is for a schedule II opioid drug... Start Date: 04/04/23 Status: Ordered atorvastatin 80 mg oral tablet 1 tablet, By Mouth, Daily, # 30 tablet, 11 Refills, Maintenance, 01/24/23 15:00:00 EDT, [id number], 173, cm, 11/28/22 16:13:00 EDT, Height, 84, [...] 3Refills, Maintenance, 02/25/23 6:35:00 EDT, [id number], 173, cm, 02/21/23 6:58:00 EDT, Height,84, kg, [...] 01/22/23 13:15:00 EDT, [id number], 173, cm, 11/28/22 16:13:00 EDT, Height, [...] 6 mL, 2 Refills, Maintenance, 02/28/23 13:38:00 EDT,[facility]/pharmacy #[id number], Partial fill upon patient request if the prescription is for a schedule II opioid drug., 173, cm, 02/21/23 6:58:00 EDT, Height, 84,... Start Date: 02/28/23 Status: Ordered valsartan 160 mg oral tablet 160 mg, 1, tablet, By Mouth, Daily, # 90 tablet, Refills 3, Tot. Refills 3, Maintenance, 12/16/22 13:17:00 EDT, Route to Pharmacy Electronically, [facility]/pharmacy #[id number], Partial fill upon patient requestif [...] Team Personnel Name: Kelly Swanson RN Position: [facility] RN Member Role: Primary Care Nurse Name: Luis Miller RN Position: S RN Member Role: Primary Care Nurse Name: Hoa Booth RN Position: S RN Member Role: Primary Care Nurse Name: Manpreet Tabares MD Position: [facility] Physician - Primary Care Member Role: PCP Address: Address: [address] [place] [id number] Name: Eliane Shelton RN Position: S RN Member Role: Primary Care Nurse Name: Faith Dixon RN Position: S RN Member Role: Primary Care Nurse Name: Aretha Ray Position: [facility] [place] Windows Support Engineer Member Role: Job Training Specialist Care Team Related Persons Name: ADINA PIERRE Address: [address] [place] [address] Name: IGNACIO KANDACE Address: [address] [place] [address] Name: ZACK PIERRE Address: [address] [place] [address]
[2023-04-25 06:40] LABS: Glucose, Whole Blood 101 mg/dL (60-115)
--- NOTE | 2023-04-25 07:05 | P.CONAN_ITS ---
[facility] Active Problems Active Problems: All Active Problems (Updated 04/02/23 @ 00:03 by Background Daemon) Blurred vision (Acute) Major depressive disorder, recurrent severe without psychotic features (Acute) ILD (interstitial lung disease) (Acute) Persistent cough (Acute) Acute respiratory failure with hypoxia (Acute) Community acquired pneumonia (Acute) Dizziness (Acute) Past Medical History Medical History (Updated 04/02/23 @ 00:03 by Background Daemon) Suicidal ideation Heart disease, unspecified Major depressive disorder, recurrent severe without psychotic features ILD (interstitial lung disease) Preop cardiovascular exam Osteomyelitis Diabetic foot ulcer LBBB (left bundle branch block) Type 2 diabetes mellitus with foot ulcer HTN (hypertension) Suicidal ideation Depression Family History Family History Father Neck malignant neoplasm Family history of problems with anesthesia: No Surgical History Surgical History H/O: vasectomy History of Problems with Anesthesia: No Social History Social History Household Members: Family Housing: House Do you presently have visiting nurse or other home services: No Alcohol intake: current Alcohol intake frequency: a few times a month Patient Tobacco Use Status: Never used Tobacco e-Cigarette/Vaping Use: Never Used Second Hand Smoke Exposure: No Substance Use Type: Marijuana Advance Directives: No Advance Directives Information Provided: Yes Advance Directives Date on File: 04/11/22 service: No Current occupational status: employed Sexual orientation: Straight/Heterosexual Meds Allergies Allergy/AdvReac Type Severity Reaction Status Date / Time codeine [CODEINE] Allergy Unknown delayed Verified 11/25/22 10:40 responses 02/24/17 Active Medications: Current Medications Lactated Ringer's (Lr) 1,000 mls @ 50 mls/hr IVCONT .Q20H [facility] Home Medications Medication Instructions Recorded Confirmed Last Taken Type metformin 1,000 mg tablet,extended 1,000 mg PO BID 11/15/22 03/07/23 11/15/22 History release 24hr sitagliptin phosphate 50 mg tablet 50 mg PO DAILY 11/15/22 03/07/23 11/15/22 History (Januvia) valsartan 160 mg tablet 160 mg PO DAILY 0503/07/23 11/15/22 History dulaglutide 1.5 mg/0.5 mL 1.5 mg subcut QWEEK 03/07/23 03/07/23 Unknown [facility] Exam Exam Date and Time: April 25, 2023 0705 Height,Weight and Vital Signs: Height 5 ft 8 in Weight 86.183 kg Last Vital Signs Temp 97 F 04/25/23 06:37 Pulse 84 04/25/23 06:37 Resp 18 04/25/23 06:37 Pulse Ox 97 04/25/23 06:37 O2 Del Method Room Air 04/25/23 06:37 Pertinent Lab Results Pertinent Lab Results: Laboratory Tests 04/25/23 06:36 POC Glucose 101 Airway Mallampati Class: II TM Dist: >3cm Neck ROM: Full Denture: Upper and Lower Heart: rrr Lungs: cta Assessment and Plan Assessment Anesthesia Assessment: Anesthesia Plan Discussed and Chart Reviewed Final Anesthetic Review Family History of Problems with Anesthesia: No History of Problems with Anesthesia: No NPO: Yes ASA Class: III Final Preanesthetic Review: No Changes in Pt Med Stat, Meds/Allgs Chart Reviewed and Consent Obtained/Reviewed Patient Risk: Intermediate Procedure Risk: Intermediate Anesthetic Plan Anesthetic Plan: GA Disposition: Standard PACU
[2023-04-25] MEDS: LORazepam 2 MG/ML VIAL 1 MG IVPUSH (09:23)
--- NOTE | 2023-04-28 17:41 | HO.ECTPROC ---
ECT Procedure Note Diagnosis/Treatment Date of Service: 04/25/23 Diagnosis: Major Depressive Disorder Current Treatment Number: 10 Treatment: Maintenance Interval Clinical Notes: pt doing well emotionally feels not very supported by his mood much improved Time: Total time managing care of this patient today ____ minutes. ECT Settings Device: THYMATRON DGx Electrode Placement: Right Unilateral Program/Pulse Width: 0.50 Energy Percent: 100 Seizure Duration By EEG (in seconds): 36 Medications Administration General Anesthetic: Etomidate (14) Muscle Relaxant: Succinylcholine (140) and Rocuronium (5) Ancillary Medications Analgesics: Torodol - Pre ECT Anti-emetics: Zofran - Pre ECT Miscillaneous Medications: Other (nitroglycerin) Airway Management Airway Management: Bag Mask Ventilation Treatment Recommendations No Changes Recommended: No change Notes: pt has done quite well with course of ect feels much improved
== END 2023-04-25 13:05 | disposition home or self-care (01) ==
PROVIDERS: PCP Family Medicine; Visit Provider Psychiatry & Neurology Psychiatry
PROC: (CPT 90870; principal; 2023-04-25 07:30)
DX: F33.2 Major depressive disorder, recurrent severe without psychotic features (principal); R45.851 Suicidal ideations; E11.621 Type 2 diabetes mellitus with foot ulcer; L97.509 Non-pressure chronic ulcer of other part of unspecified foot with unspecified severity; I10 Essential (primary) hypertension; I44.7 Left bundle-branch block, unspecified; Z79.84 Long term (current) use of oral hypoglycemic drugs; Z79.85 Long-term (current) use of injectable non-insulin antidiabetic drugs; Z88.5 Allergy status to narcotic agent
CPT/HCPCS: 82947; 90870; J0330; J1885; J2060; J2405

== ENCOUNTER → 2023-04-25 06:05 | Outpatient (BNV) | payer BC, SELFPAY | PROVIDERS: PCP Family Medicine; Visit Provider Psychiatry & Neurology Psychiatry | DX: F33.2 Major depressive disorder, recurrent severe without psychotic features (principal) | CPT/HCPCS: 90870 ==

== ENCOUNTER 2023-04-25 21:13 | Emergency (ER) | payer BC, SELFPAY ==
--- NOTE | ~2023-04-25 | CT_ITS ---
EXAMINATION: CT brain and CT cervical spine without contrast. CLINICAL INDICATIONS: Fall. COMPARISON: CT brain and CT cervical spine 02/24/2017. TECHNIQUE: 5 mm thin axial and reformatted 2 mm thin sagittal and coronal images of brain were obtained. Subsequently axial 3 mm thin and reformatted 2 mm thin sagittal and coronal images of cervical spine were obtained. DLP [id number]. This CT examination was performed using dose optimization technique as appropriate, variously including the following: Automated exposure control Adjustment of MA and/or KV according to patient size(this includes techniques or standardized protocols for targeted exams where dose is matched to indication/reason for exam; extremities or head. Use of iterative reconstruction techniques. FINDINGS: Brain: There is no acute intra-axial, extra-axial bleed, masses or midline shift. There is no acute infarction evolution. There is no edema. The desir to white matter differentiation is maintained normal. Bone windows reveal no calvarial abnormality. There is no scalp soft tissue abnormality. There is mild mucoperiosteal thickening bilateral maxillary bilateral sphenoid sinuses. The mastoid air cells are well-aerated. Cervical spine: There is mild straightening of cervical lordosis. The vertebral heights, alignment and disc heights are normal. No visible acute fracture, dislocation or subluxation seen. The prevertebral and paravertebral soft tissues are normal. There is moderate left C3-C4 facet joint arthropathy and hypertrophy. The airways widely patent. The prevertebral and paravertebral soft tissues are normal. The lung apices are clear. Thyroid lobes are symmetrical. CT/CT cervical spine wo IV con IMPRESSION: No visible acute fracture or dislocation seen in cervical spine. There is mild straightening of cervical lordosis likely spasm. There is no acute intracranial process seen.
[2023-04-25 21:30] VITALS: BP 190/100; PULSE 93; O2SAT 94
--- NOTE | 2023-04-25 21:44 | ED_ITS ---
HPI - Fall General Chief Complaint: Fall Stated Complaint: Fall Source: patient and EMS Mode of arrival: EMS Limitations: no limitations History of Present Illness HPI Narrative: Patient is here major depressive disorder status post ECT treatment today was coming down the steps lost balance and fell about 8 steps comes with abrasion to the scalp no loss of consciousness no other bony pain no chest pain or shortness of breath patient ambulatory as such prior to arrival Related Data Home Medications Medication Instructions Recorded Confirmed metformin 1,000 mg tablet,extended 1,000 mg PO BID 11/15/22 03/07/23 release 24hr sitagliptin phosphate 50 mg tablet 50 mg PO DAILY 11/15/22 03/07/23 (Januvia) valsartan 160 mg tablet 160 mg PO DAILY 11/15/22 03/07/23 dulaglutide 1.5 mg/0.5 mL 1.5 mg subcut QWEEK 03/07/23 03/07/23 subcutaneous pen injector (Trulicity) Previous Rx's Medication Instructions Recorded bupropion HCl 150 mg 24 hr tablet, 1 tab PO DAILY #30 tabs 03/14/22 extended release bupropion HCl 300 mg 24 hr tablet, 1 tab PO DAILY #30 tabs 03/14/22 extended release amlodipine 10 mg tablet 10 mg PO DAILY #30 tabs 11/22/22 hydralazine 25 mg tablet 25 mg PO TID #90 tabs 11/22/22 aripiprazole 5 mg tablet (Abilify) 5 mg PO BEDTIME 30 days #30 tabs 03/24/23 duloxetine 30 mg capsule,delayed 30 mg PO DAILY 30 days #30 caps 03/24/23 release melatonin 3 mg tablet 6 mg (2 x 3 mg) PO BEDTIME PRN 03/24/23 Insomnia 30 days #60 tabs mirtazapine 15 mg tablet 15 mg PO BEDTIME 30 days #30 tabs 03/24/23 cyclobenzaprine 10 mg tablet 10 mg PO Q8H #20 tabs 04/25/23 ibuprofen 600 mg tablet 600 mg PO Q6H PRN fever or pain 04/25/23 #30 tabs Allergies Allergy/AdvReac Type Severity Reaction Status Date / Time codeine [CODEINE] Allergy Unknown delayed Verified 11/25/22 10:40 responses 02/24/17 Review of Systems Review of Systems: Yes all other systems are reviewed and are negative PMF Past Medical History Medical History Suicidal ideation Heart disease, unspecified Major depressive disorder, recurrent severe without psychotic features ILD (interstitial lung disease) Preop cardiovascular exam Osteomyelitis Diabetic foot ulcer LBBB (left bundle branch block) Type 2 diabetes mellitus with foot ulcer HTN (hypertension) Suicidal ideation Depression Surgical History H/O: vasectomy Family History Family History Father Neck malignant neoplasm Social History Social History Household Members: Family Housing: House Do you presently have visiting nurse or other home services: No Unable to assess alcohol history related to: Unknown Alcohol intake: current Alcohol intake frequency: a few times a month Patient Tobacco Use Status: Never used Tobacco Smoked in Last 30 Days: No e-Cigarette/Vaping Use: Never Used Second Hand Smoke Exposure: No Use of substances other than those prescribed or required for medical reasons: No Substance Use Type: Marijuana Advance Directives: Yes Advance Directives on File: Yes Advance Directives Date on File: 04/11/22 service: No Current occupational status: employed Sexual orientation: Straight/Heterosexual Physical Exam Vital Signs: Vital Signs: Last Vital Signs Temp 97.8 F 04/25/23 23:13 Pulse 85 04/25/23 23:13 Resp 18 04/25/23 23:13 BP 138/86 04/25/23 23:13 Pulse Ox 97 04/25/23 23:13 O2 Del Method Room Air 04/25/23 22:06 BMI result Body Mass Index 28.9 Appearance: Alert. Oriented X3. No acute distress. Eyes: , No Nystagmus right eye with mature cataract HEENT: Pharynx normal. Oral Mucosa moist superficial abrasion top of the head Neck: Normal inspection. Neck supple. No midline tenderness CVS: Normal heart rate and rhythm. Pulses normal. Respiratory: No respiratory distress. Equal air entry bilateral, no wheezing/rales/rhonchi Abdomen: Soft and nontender. Bowel sounds are present, no mass palpable, no CVA tenderness back: No midline tenderness Skin: Skin warm and dry. Normal skin color. Normal skin turgor. Extremities: No lower extremity edema. No calf tenderness Neuro: Oriented X 3. No motor deficit. No sensory deficit.No cerebellar signs , cranial nerves II-XII intact Medications Administered Discontinued Medications Generic Name Dose Route Start Last Admin Trade Name Jelena PRN Reason Stop Dose Admin Bacitracin 1 appl 04/25/23 23:14 04/25/23 23:26 Bacitracin Oint 0.9 Gm Packet TOPICAL 04/25/23 23:15 1 appl ONCE ONE Administration Protocol Cyclobenzaprine HCl 10 mg 04/25/23 23:12 04/25/23 23:26 Cyclobenzaprine Hcl 10 Mg Tablet PO 04/25/23 23:13 10 mg ONCE ONE Administration Ibuprofen 600 mg 04/25/23 23:12 04/25/23 23:26 Ibuprofen 600 Mg Tablet PO 04/25/23 23:13 600 mg ONCE ONE Administration Medical Decision Making Medical Decision Making [facility] Narrative: Patient status post mechanical fall CT scan of the head and C-spine negative discharge patient home on ibuprofen and Flexeril Differential Diagnosis Differential Diagnoses: The differential diagnosis associated with the presentation includes Closed head injury/SDH/SAH/cervical fracture Radiology Impression Discussion of test interpretation with radiology: I have reviewed the radiologist's reading. Discharge Plan Discharge Clinical Impression: Closed head injury Patient Disposition: Home, Self-Care Instructions: Head Injury (ED) Additional Instructions: Your CT scan of the head and C-spine was negative for any acute your pain is likely musculoskeletal Take ibuprofen for pain as needed, apply ice pack Use muscle relaxant for muscle spasm Prescriptions: New cyclobenzaprine 10 mg tablet 10 mg PO Q8H Qty: 20 0RF ibuprofen 600 mg tablet 600 mg PO Q6H PRN (Reason: fever or pain) Qty: 30 0RF No Action bupropion HCl 300 mg tablet extended release 24 hr 1 tab PO DAILY Qty: 30 0RF Rx Instructions: Take with 150mg to equal 450mg bupropion HCl 150 mg tablet extended release 24 hr 1 tab PO DAILY Qty: 30 0RF valsartan 160 mg tablet 160 mg PO DAILY metformin 1,000 mg Tablet Extended Release 24 Hr 1,000 mg PO BID Januvia 50 mg Tablet 50 mg PO DAILY hydralazine 25 mg Tablet 25 mg PO TID Qty: 90 0RF Protocol: Hold for SBP< HOLD for SBP < : 90 amlodipine 10 mg Tablet 10 mg PO DAILY Qty: 30 0RF Protocol: Hold for SBP< HOLD for SBP < : 90 Trulicity 1.5 mg/0.5 mL pen injector 1.5 mg subcut QWEEK Rx Instructions: Per PT due today 03/07/23 melatonin 3 mg Tablet 6 mg PO BEDTIME PRN (Reason: Insomnia) 30 Days Qty: 60 0RF mirtazapine 15 mg Tablet 15 mg PO BEDTIME 30 Days Qty: 30 0RF aripiprazole [Abilify] 5 mg Tablet 5 mg PO BEDTIME 30 Days Qty: 30 0RF duloxetine 30 mg Capsule,Delayed Release(Dr/Ec) 30 mg PO DAILY 30 Days Qty: 30 0RF Discharge Date/Time: 04/25/23 23:39
[2023-04-25 22:06] VITALS: PULSE 88; RESP 18; TEMP 36.7; O2SAT 98; BMI 28.9
[2023-04-25 23:13] VITALS: BP 138/86; PULSE 85; RESP 18; TEMP 36.6; O2SAT 97
[2023-04-25] MEDS: Ibuprofen 600 MG TABLET PO (23:26)
[2023-04-25] MEDS: Cyclobenzaprine HCl 10 MG TABLET PO (23:26)
[2023-04-25] MEDS: Bacitracin Oint 0.9 GM PACKET 1 APPL TOPICAL (23:26)
== END 2023-04-25 23:39 | disposition home or self-care (01) ==
PROVIDERS: Emergency Provider Internal Medicine; PCP Family Medicine
DX: S09.90XA Unspecified injury of head, initial encounter (principal); W10.8XXA Fall (on) (from) other stairs and steps, initial encounter; Y93.9 Activity, unspecified; Y92.9 Unspecified place or not applicable; Y99.9 Unspecified external cause status
CPT/HCPCS: 70450; 72125; 99284

== ENCOUNTER 2023-04-28 01:28 | Emergency (ER) | payer BC, SELFPAY ==
--- NOTE | ~2023-04-28 | XR_ITS ---
EXAMINATION: XR ELBOW, LEFT CLINICAL INFORMATION: Pain. Rule out fracture. COMPARISON: None available. TECHNIQUE: AP, lateral, and oblique views of the left elbow. FINDINGS: No acute fracture or dislocation. Marginal osteophytes along the humeral ulnar and proximal radioulnar articulations. Alignment is anatomic. No elbow joint effusion. XR/XR elbow LT min 3V IMPRESSION: * No acute fracture or dislocation. * Degenerative changes as described.
--- NOTE | ~2023-04-28 | XR_ITS ---
EXAMINATION: XR HAND, LEFT CLINICAL INFORMATION: Pain left index finger COMPARISON: None available. TECHNIQUE: PA, lateral, and oblique views of the left hand. FINDINGS: No acute fracture or dislocation. Marginal osteophytes throughout the distal interphalangeal joints with accompanying joint space narrowing. A bone island present in the third proximal phalangeal base. No erosive changes. Soft tissues unremarkable. XR/XR hand LT min 3V IMPRESSION: * No acute findings. * Degenerative changes as described.
[2023-04-28 01:50] VITALS: BP 188/104; PULSE 104; RESP 18; TEMP 36.8; O2SAT 97; BMI 29.0
--- NOTE | 2023-04-28 02:34 | ED.EXTPRO ---
HPI - Extremity Problem General Chief complaint: Extremity Injury, Upper Stated complaint: Left arm pain after fall Time Seen by Provider: 04/28/23 02:34 Source: patient Mode of arrival: ambulatory Limitations: no limitations History of Present Illness HPI Narrative: 57-year-old male with a history of diabetes mellitus, hypertension, hyperlipidemia, depression who presents emergency department for evaluation of left elbow pain and left index finger pain. The patient fell down stairs on Friday04/25/2023. He was seen here in the emergency department and had CT scan of the head and cervical spine which was negative. He was discharged with prescriptions for ibuprofen and cyclobenzaprine. He states that his neck pain is better but he has now developed pain in his left elbow and left index finger. Related Data Home Medications Medication Instructions Recorded Confirmed metformin 1,000 mg tablet,extended 1,000 mg PO BID 11/15/22 03/07/23 release 24hr sitagliptin phosphate 50 mg tablet 50 mg PO DAILY 11/15/22 03/07/23 (Januvia) valsartan 160 mg tablet 160 mg PO DAILY 11/15/22 03/07/23 dulaglutide 1.5 mg/0.5 mL 1.5 mg subcut QWEEK 03/07/23 03/07/23 subcutaneous pen injector (Trulicity) Previous Rx's Medication Instructions Recorded bupropion HCl 150 mg 24 hr tablet, 1 tab PO DAILY #30 tabs 03/14/22 extended release bupropion HCl 300 mg 24 hr tablet, 1 tab PO DAILY #30 tabs 03/14/22 extended release amlodipine 10 mg tablet 10 mg PO DAILY #30 tabs 11/22/22 hydralazine 25 mg tablet 25 mg PO TID #90 tabs 11/22/22 aripiprazole 5 mg tablet (Abilify) 5 mg PO BEDTIME 30 days #30 tabs 03/24/23 duloxetine 30 mg capsule,delayed 30 mg PO DAILY 30 days #30 caps 03/24/23 release melatonin 3 mg tablet 6 mg (2 x 3 mg) PO BEDTIME PRN 03/24/23 Insomnia 30 days #60 tabs mirtazapine 15 mg tablet 15 mg PO BEDTIME 30 days #30 tabs 03/24/23 cyclobenzaprine 10 mg tablet 10 mg PO Q8H #20 tabs 04/25/23 ibuprofen 600 mg tablet 600 mg PO Q6H PRN fever or pain 04/25/23 #30 tabs Allergies Allergy/AdvReac Type Severity Reaction Status Date / Time codeine [CODEINE] Allergy Unknown delayed Verified 11/25/22 10:40 responses 02/24/17 Review of Systems Review of Systems: Yes all other systems are reviewed and are negative [facility] Past Medical History Medical History Suicidal ideation Heart disease, unspecified Major depressive disorder, recurrent severe without psychotic features ILD (interstitial lung disease) Preop cardiovascular exam Osteomyelitis Diabetic foot ulcer LBBB (left bundle branch block) Type 2 diabetes mellitus with foot ulcer HTN (hypertension) Suicidal ideation Depression Surgical History H/O: vasectomy Family History Family History Father Neck malignant neoplasm Social History Social History Household Members: Family Housing: House Do you presently have visiting nurse or other home services: No Unable to assess alcohol history related to: Unknown Alcohol intake: current Alcohol intake frequency: holidays/special occasions only Patient Tobacco Use Status: Never used Tobacco e-Cigarette/Vaping Use: Never Used Second Hand Smoke Exposure: No Use of substances other than those prescribed or required for medical reasons: No Substance Use Type: Marijuana Advance Directives: Yes Advance Directives on File: Yes Advance Directives Date on File: 04/11/22 service: No Current occupational status: employed Sexual orientation: Straight/Heterosexual Physical Exam Vital Signs: Vital Signs: Last Vital Signs Temp 97.9 F 04/28/23 02:37 Pulse 102 H 04/28/23 02:37 Resp 16 04/28/23 02:37 BP 174/92 H 04/28/23 02:37 Pulse Ox 100 04/28/23 02:37 O2 Del Method Room Air 04/28/23 02:37 BMI result Body Mass Index 29.0 Vital signs revealed elevated blood pressure of 180/104 and elevated pulse of 104 Exam General: Awake, alert in no distress Extremities: Patient has tenderness palpation of his left elbow but he has full range of motion without any limitations, he also has tenderness palpation over the distal but no ecchymosis. Extremities are neurovascular intact. Neuro: Awake, alert, oriented, normal speech Psych: Pleasant, cooperative Medications Administered Discontinued Medications Generic Name Dose Route Start Last Admin Trade Name Jelena PRN Reason Stop Dose Admin Acetaminophen 975 mg 04/28/23 02:40 04/28/23 02:44 Acetaminophen 325 Mg Tablet PO 04/28/23 02:41 975 mg ONCE ONE Administration Cyclobenzaprine HCl 10 mg 04/28/23 02:40 04/28/23 02:44 Cyclobenzaprine Hcl 10 Mg Tablet PO 04/28/23 02:41 10 mg ONCE ONE Administration 49-year-old male with a history of diabetes mellitus, hypertension, hyperlipidemia, depression, who fell down stairs on 04/25/2023, seen emergency department with negative CT scan of the head and cervical spine now presents with left elbow pain and left index finger pain. Vital signs did reveal elevated blood pressure and elevated heart rate. Patient does have tenderness palpation of his elbow and distal PIP joint of his left index finger, extremities are neurovascular intact and has full range of motion. I did order x-ray of the left elbow and left index finger to rule out fracture. Take the patient was treated with Tylenol 975 mg orally and he requested that he get his dose of cyclobenzaprine 10 mg orally as well. Medical Decision Making Radiology Impression Discussion of test interpretation with radiology: I have reviewed the radiologist's reading. Radiologist Impression: XR elbow LT min 3V IMPRESSION: * No acute fracture or dislocation. * Degenerative changes as described. Dictated By: Thee Casillas MD XR hand LT min 3V IMPRESSION: * No acute findings. * Degenerative changes as described. Dictated By: Thee Casillas MD Discharge Plan Discharge Clinical Impression: Contusion of elbow, left Qualifiers: Encounter type: initial encounter Qualified Code(s): S50.02XA - Contusion of left elbow, initial encounter Sprain of left index finger Qualifiers: Encounter type: initial encounter Sprain of finger site: interphalangeal joint Qualified Code(s): S63.631A - Sprain of interphalangeal joint of left index finger, initial encounter Patient Disposition: Home, Self-Care Instructions: Contusion in Adults (ED), Finger Sprain (ED) Additional Instructions: The x-rays of your left finger and left elbow did not reveal any broken bones which is reassuring You most likely sprained your index finger and you most likely bruised her elbow pain Continue taking ibuprofen as directed Follow-up with your doctor in 2 days. Please return to the emergency department if your symptoms get worse or if you develop any symptoms that are concerning to you. Prescriptions: No Action bupropion HCl 300 mg tablet extended release 24 hr 1 tab PO DAILY Qty: 30 0RF Rx Instructions: Take with 150mg to equal 450mg bupropion HCl 150 mg tablet extended release 24 hr 1 tab PO DAILY Qty: 30 0RF valsartan 160 mg tablet 160 mg PO DAILY metformin 1,000 mg Tablet Extended Release 24 Hr 1,000 mg PO BID Januvia 50 mg Tablet 50 mg PO DAILY hydralazine 25 mg Tablet 25 mg PO TID Qty: 90 0RF Protocol: Hold for SBP< HOLD for SBP < : 90 amlodipine 10 mg Tablet 10 mg PO DAILY Qty: 30 0RF Protocol: Hold for SBP< HOLD for SBP < : 90 cyclobenzaprine 10 mg tablet 10 mg PO Q8H Qty: 20 0RF ibuprofen 600 mg tablet 600 mg PO Q6H PRN (Reason: fever or pain) Qty: 30 0RF Trulicity 1.5 mg/0.5 mL pen injector 1.5 mg subcut QWEEK Rx Instructions: Per PT due today 03/07/23 melatonin 3 mg Tablet 6 mg PO BEDTIME PRN (Reason: Insomnia) 30 Days Qty: 60 0RF mirtazapine 15 mg Tablet 15 mg PO BEDTIME 30 Days Qty: 30 0RF aripiprazole [Abilify] 5 mg Tablet 5 mg PO BEDTIME 30 Days Qty: 30 0RF duloxetine 30 mg Capsule,Delayed Release(Dr/Ec) 30 mg PO DAILY 30 Days Qty: 30 0RF
[2023-04-28 02:37] VITALS: BP 174/92; PULSE 102; RESP 16; TEMP 36.6; O2SAT 100
[2023-04-28] MEDS: Cyclobenzaprine HCl 10 MG TABLET PO (02:44)
[2023-04-28] MEDS: Acetaminophen 325 MG TABLET 975 MG PO (02:44)
[2023-04-28 04:50] VITALS: BP 146/72; PULSE 82; RESP 16; O2SAT 99
== END 2023-04-28 05:00 | disposition home or self-care (01) ==
PROVIDERS: Emergency Provider Emergency Medicine Emergency Medical Services
DX: S50.02XA Contusion of left elbow, initial encounter (principal); S63.631A Sprain of interphalangeal joint of left index finger, initial encounter; M79.602 Pain in left arm; I10 Essential (primary) hypertension; M79.642 Pain in left hand; W10.9XXA Fall (on) (from) unspecified stairs and steps, initial encounter; Y93.9 Activity, unspecified; Y92.9 Unspecified place or not applicable; Y99.9 Unspecified external cause status; Z79.899 Other long term (current) drug therapy
CPT/HCPCS: 73080; 73130; 99283; 99284

== ENCOUNTER 2023-05-01 19:41 | Emergency (ER) | payer BC, SELFPAY ==
--- NOTE | ~2023-05-01 | CT_ITS ---
EXAMINATION: CT CHEST WITHOUT CONTRAST CLINICAL INFORMATION: Trauma. COMPARISON: None available. TECHNIQUE: Multidetector volumetric CT imaging of the chest was done. Axial MIP volume rendering provided. Sagittal and coronal reformatted images were obtained. This CT examination was performed using dose optimization techniques as appropriate, variously including the following: *Automated exposure control *Adjustment of mA and/or kV according to patient size (this includes techniques or standardized protocols for targeted exams where dose is matched to indication/reason for exam; i.e. extremities or head) *Use of iterative reconstruction technique DLP: 285 mGy-cm FINDINGS: BEATER OUT LEVELING MACHINE: Unremarkable. LUNGS: There is minimal scarring at the left lung base. The lungs are otherwise clear. MEDIASTINUM: The mediastinum is normal. CORONARY ARTERY CALCIFICATION: [id number]. PLEURA: There is no pleural effusion. No pleural mass or thickening. AXILLA: No lymphadenopathy. UPPER ABDOMEN: There is a 4.1 cm left upper pole renal cyst. OSSEOUS STRUCTURES: Unremarkable. CT/CT chest wo IV con IMPRESSION: No significant abnormality identified. Fleischner guidelines were followed.
[2023-05-01 19:50] VITALS: BP 167/72; PULSE 107; RESP 16; TEMP 36.8; O2SAT 100; BMI 29.5
--- NOTE | 2023-05-01 19:52 | ED_ITS ---
HPI - Fall General Chief Complaint: Neck Pain/Injury Stated Complaint: fell 04/25 neck pain Time Seen by Provider: 05/01/23 21:48 Source: patient, RN notes reviewed and old records reviewed Mode of arrival: ambulatory Limitations: no limitations History of Present Illness HPI Narrative: 57-year-old male presents for evaluation of left-sided neck and upper back pain. Patient was seen here on 04/25/2023 after a fall down 8 stairs he was subsequently seen here on the for similar pain patient is CT scan of the brain, cervical spine, x-rays of his left elbow and hand with no acute traumatic findings Patient reports that he is unable to turn his head to the left or extend completely. He reports that when he moves his neck he has pain described as a burning sensation radiating to his left elbow he believes he has some swelling to his left anterior neck denies any new traumas, he is not on any anticoagulation Related Data Home Medications Medication Instructions Recorded Confirmed metformin 1,000 mg tablet,extended 1,000 mg PO BID 11/15/22 03/07/23 release 24hr sitagliptin phosphate 50 mg tablet 50 mg PO DAILY 11/15/22 03/07/23 (Januvia) valsartan 160 mg tablet 160 mg PO DAILY 11/15/22 03/07/23 dulaglutide 1.5 mg/0.5 mL 1.5 mg subcut QWEEK 03/07/23 03/07/23 subcutaneous pen injector (Trulicity) Previous Rx's Medication Instructions Recorded bupropion HCl 150 mg 24 hr tablet, 1 tab PO DAILY #30 tabs 03/14/22 extended release bupropion HCl 300 mg 24 hr tablet, 1 tab PO DAILY #30 tabs 03/14/22 extended release amlodipine 10 mg tablet 10 mg PO DAILY #30 tabs 11/22/22 hydralazine 25 mg tablet 25 mg PO TID #90 tabs 11/22/22 aripiprazole 5 mg tablet (Abilify) 5 mg PO BEDTIME 30 days #30 tabs 03/24/23 duloxetine 30 mg capsule,delayed 30 mg PO DAILY 30 days #30 caps 03/24/23 release melatonin 3 mg tablet 6 mg (2 x 3 mg) PO BEDTIME PRN 03/24/23 Insomnia 30 days #60 tabs mirtazapine 15 mg tablet 15 mg PO BEDTIME 30 days #30 tabs 03/24/23 cyclobenzaprine 10 mg tablet 10 mg PO Q8H #20 tabs 04/25/23 ibuprofen 600 mg tablet 600 mg PO Q6H PRN fever or pain 04/25/23 #30 tabs dexamethasone 4 mg tablet 4 mg PO BID #6 tabs 05/02/23 tramadol 50 mg tablet 50 mg PO TID PRN severe pain 05/02/23 (scale score 7-10) #12 tabs Allergies Allergy/AdvReac Type Severity Reaction Status Date / Time codeine [CODEINE] Allergy Unknown delayed Verified 11/25/22 10:40 responses 02/24/17 Review of Systems Constitutional: Constitutional: Denies chills, Denies fever(s), Denies frequent falls and Denies headache(s) Eyes: Eyes: Denies blurry vision ENT: Denies headache(s), Reports neck pain and Denies throat swelling Cardiovascular: Cardiovascular: Denies chest pain and Denies dyspnea Respiratory: Respiratory: Denies cough and Denies dyspnea Gastrointestinal: Gastrointestinal: Denies abdominal pain, Denies nausea and Denies vomiting Musculoskeletal: Musculoskeletal: Reports back pain, Denies muscle weakness, Reports neck pain, Denies numbness, Reports radiating pain into limb and Reports tingling Integumentary/Breasts: Skin/Breast: Denies rash Neurologic: Denies frequent falls, Denies headache(s), Denies numbness and Reports tingling Allergic/Immunologic: Allergic/Immunologic: Denies throat swelling PMFSH Past Medical History Medical History Suicidal ideation Heart disease, unspecified Major depressive disorder, recurrent severe without psychotic features ILD (interstitial lung disease) Preop cardiovascular exam Osteomyelitis Diabetic foot ulcer LBBB (left bundle branch block) Type 2 diabetes mellitus with foot ulcer HTN (hypertension) Suicidal ideation Depression Surgical History H/O: vasectomy Family History Family History Father Neck malignant neoplasm Social History Social History Household Members: Family Housing: House Do you presently have visiting nurse or other home services: No Unable to assess alcohol history related to: Unknown Alcohol intake: current Alcohol intake frequency: holidays/special occasions only Patient Tobacco Use Status: Never used Tobacco e-Cigarette/Vaping Use: Never Used Second Hand Smoke Exposure: No Substance Use Type: Marijuana Advance Directives: Yes Advance Directives on File: Yes Advance Directives Date on File: 04/11/22 service: No Current occupational status: employed Sexual orientation: Straight/Heterosexual Physical Exam Vital Signs: Vital Signs: Last Vital Signs Temp 98.2 F 05/01/23 19:50 Pulse 107 H 05/01/23 19:50 Resp 16 05/01/23 19:50 BP 167/72 H 05/01/23 19:50 Pulse Ox 100 05/01/23 19:50 O2 Del Method Room Air 05/01/23 19:50 BMI result Body Mass Index 29.5 Const: General: healthy appearing, alert and awake Nutritional Appearance: well nourished Orientation/consciousness: patient oriented x3 HEENT: Head: Yes normocephalic and Yes atraumatic Eyes: Eyelids: Yes eyelids normal Conjunctivae: conjunctivae normal Sclerae: sclerae normal Corneas: corneas normal Pupils: Equal, round and reactive pupils present EOM: EOMs intact bilaterally Neck: Other: patient has mild left anterior neck swelling just above his mid clavicle. No open wounds, no ecchymosis there is left trapezius muscle group tenderness. No vertebral tenderness. No tenderness to the left clavicle Neck: Yes trachea midline, Yes supple, Yes prominent supraclavicular fat pad and Yes prominent dorsocervical fat pad Chest: Chest palpation & inspection: normal inspection of the chest and normal palpation of entire chest wall Resp: Effort & Inspection: normal respiratory effort, able to speak in complete sentences and not labored Cardio: Rate: regular rate Rhythm: regular rhythm Skin: General skin exam: elasticity normal Neuro: General: patient oriented x3 Cranial nerves: Yes Equal, round and reactive pupils present and Yes Bilaterally intact EOM present Cognition (Jassi ro): normal cognition Motor exam (neuro): 5/5 motor strength present throughout Course Course Course Narrative: RME: 57yo M w/PMHx ILD, depression, c/o continued neck and L elbow pain s/p fall on 04/25. Patient was seen and tx in the ED on 04/25 & 04/28 had Head/C-spine CT & XRs which were unremarkable. Took Rx Flexeril & Motrin without any relief. Admits sx are persistent not worsening, denies recent injury or recurrent fall Will need pain control Full HPI, ROS and PE to be performed by primary ED provider. Reevaluation(s) Reevaluation #1: patient's CT scan without any acute findings. Will discharge the patient with tramadol and dexamethasone for pain management and he will follow-up his PCP for physical therapy/further advanced imaging Time: 00:17 Reevaluation #2: I had previously told the patient that I would not prescribe any controlled substances as he he drove here and would have to drive home. He is requesting tramadol and reports that he will walk home , as he only lives 2 blocks away. patient was advise of the risks of driving or taking potentially sedating medications and was instructed that he cannot drive after taking tramadol and he would still like to take the medication and walk home. Time: 00:56 Medications Administered Discontinued Medications Generic Name Dose Route Start Last Admin Trade Name Jelena PRN Reason Stop Dose Admin Dexamethasone 4 mg 05/01/23 22:21 05/01/23 23:03 Dexamethasone 4 Mg Tablet PO 05/01/23 22:22 4 mg ONCE ONE Administration Ketorolac Tromethamine 30 mg 05/01/23 22:20 05/01/23 23:01 Ketorolac Tromethamine 30 Mg/Ml Vial IM 05/01/23 22:21 30 mg ONCE ONE Administration Medical Decision Making Medical Decision Making [facility] Narrative: 57-year-old male presents for evaluation of the left-sided neck pain that radiates to his left armpit he does have some mild left anterior neck swelling. He has some tenderness over the left scapular region. Will get a CT scan of chest to evaluate both these areas. He had a CT cervical spine and CT brain already completed 6 days ago. There has been no new traumatic injuries. Has good range of motion to the upper and lower extremities. Strength is 5/5 throughout. Patient likely has a cervical radiculopathy. Will treat with dexamethasone and Toradol Differential Diagnosis Differential Diagnoses: The differential diagnosis associated with the presentation includes torticollis Scapular fracture Clavicular fracture muscle strain Radiculopathy Discharge Plan Discharge Clinical Impression: Left cervical radiculopathy Patient Disposition: Home, Self-Care Instructions: Cervical Radiculopathy (ED) Additional Instructions: your workup today in the emergency department did not show any concerning findi ngs. Your pain is most likely related to a pinched nerve in your neck. Take the dexamethasone twice daily for the next 3 days you may continue ibuprofen and Tylenol for pain use tramadol for more severe or breakthrough pain this may make you sleepy, did not drink alcohol or drive after taking Prescriptions: New tramadol 50 mg tablet 50 mg PO TID PRN (Reason: severe pain (scale score 7-10)) Qty: 12 0RF dexamethasone 4 mg tablet 4 mg PO BID Qty: 6 0RF No Action bupropion HCl 300 mg tablet extended release 24 hr 1 tab PO DAILY Qty: 30 0RF Rx Instructions: Take with 150mg to equal 450mg bupropion HCl 150 mg tablet extended release 24 hr 1 tab PO DAILY Qty: 30 0RF valsartan 160 mg tablet 160 mg PO DAILY metformin 1,000 mg Tablet Extended Release 24 Hr 1,000 mg PO BID Januvia 50 mg Tablet 50 mg PO DAILY hydralazine 25 mg Tablet 25 mg PO TID Qty: 90 0RF Protocol: Hold for SBP< HOLD for SBP < : 90 amlodipine 10 mg Tablet 10 mg PO DAILY Qty: 30 0RF Protocol: Hold for SBP< HOLD for SBP < : 90 cyclobenzaprine 10 mg tablet 10 mg PO Q8H Qty: 20 0RF ibuprofen 600 mg tablet 600 mg PO Q6H PRN (Reason: fever or pain) Qty: 30 0RF Trulicity 1.5 mg/0.5 mL pen injector 1.5 mg subcut QWEEK Rx Instructions: Per PT due today 03/07/23 melatonin 3 mg Tablet 6 mg PO BEDTIME PRN (Reason: Insomnia) 30 Days Qty: 60 0RF mirtazapine 15 mg Tablet 15 mg PO BEDTIME 30 Days Qty: 30 0RF aripiprazole [Abilify] 5 mg Tablet 5 mg PO BEDTIME 30 Days Qty: 30 0RF duloxetine 30 mg Capsule,Delayed Release(Dr/Ec) 30 mg PO DAILY 30 Days Qty: 30 0RF Stand Alone Forms: Work/School Release
--- OUTSIDE RECORDS SUMMARY | 2023-05-01 21:41 | XMS_ITS | Continuity of Care Document ---
Author Name Unknown Organization [facility] Address [address] [place] [address]- Care Team Providers Care Automotive Quality Manager Name Role Phone Raysa JAY, Manpreet Garcia Primary Care Physician [place] [facility] [place] 03/28/23 - 04/27/23 [facility] [place] [facility] [address] [place] [address]- Allergies, Adverse Reactions, Alerts Substance Reaction Severity Status codeine loopy Active Immunizations Given and Recorded Vaccine Date Status Refusal Reason [id number] 12y+ bivalent booster vax 06/04/22 Recorded influenza [...] (oldterm) 4 11/26/10 Gi thong 1Result Comment: [facility]-[id number] 2Admin Note: At work 3Admin Note: REFUSED [...] 04/04/23 10:33:00 EDT, Route to Pharmacy Electronically, [facility]/pharmacy #[id number], Partial fill upon patient request if the prescription is for a schedule II opioid drug... Start Date: 04/04/23 Status: Ordered atorvastatin 80 mg oral tablet 1 tablet, By Mouth, Daily, # 30 tablet, 11 Refills, Maintenance, 01/24/23 15:00:00 EDT, [id number], 173, cm, 11/28/22 16:13:00 EDT, Height, 84, [...] 3Refills, Maintenance, 02/25/23 6:35:00 EDT, [id number], 173, cm, 02/21/23 6:58:00 EDT, Height,84, kg, [...] 6 mL, 2 Refills, Maintenance, 02/28/23 13:38:00 EDT,[facility]/pharmacy #[id number], Partial fill upon patient request if the prescription is for a schedule II opioid drug., 173, cm, 02/21/23 6:58:00 EDT, Height, 84,... Start Date: 02/28/23 Status: Ordered valsartan 160 mg oral tablet 160 mg, 1, tablet, By Mouth, Daily, # 90 tablet, Refills 3, Tot. Refills 3, Maintenance, 12/16/22 13:17:00 EDT, Route to Pharmacy Electronically, [facility]/pharmacy #[id number], Partial fill upon patient requestif [...] Team Personnel Name: Kelly Swanson RN Position: [facility] RN Member Role: Primary Care Nurse Name: Luis Miller RN Position: S RN Member Role: Primary Care Nurse Name: Hoa Booth RN Position: S RN Member Role: Primary Care Nurse Name: Manpreet Tabares MD Position: [facility] Physician - Primary Care Member Role: PCP Address: Address: [address] [place] [id number] Name: Eliane Shelton RN Position: S RN Member Role: Primary Care Nurse Name: Faith Dixon RN Position: S RN Member Role: Primary Care Nurse Name: Aretha Ray Position: [facility] [place] Veneer Jointer Returner Member Role: Insecticide Expert Care Team Related Persons Name: ADINA PIERRE Address: home [address] [place] [address] Name: IGNACIO KANDACE Address: home [address] [place] [address] Name: ZACK PIERRE Address: [address] [place] [address]
[2023-05-01] MEDS: Ketorolac Tromethamine 30 MG/ML VIAL IM (23:01)
[2023-05-01] MEDS: dexAMETHasone 4 MG TABLET PO (23:03)
[2023-05-02 00:30] VITALS: BP 185/96; PULSE 92; RESP 18; O2SAT 97
[2023-05-02] MEDS: traMADoL HCL 50 MG TABLET PO (01:14)
== END 2023-05-02 04:01 | disposition home or self-care (01) ==
PROVIDERS: Emergency Provider Emergency Medicine; PCP Family Medicine
DX: M54.12 Radiculopathy, cervical region (principal); E11.9 Type 2 diabetes mellitus without complications; I10 Essential (primary) hypertension; F12.90 Cannabis use, unspecified, uncomplicated; Z79.84 Long term (current) use of oral hypoglycemic drugs; Z79.899 Other long term (current) drug therapy
CPT/HCPCS: 71250; 96372; 99284; J1885; J8540

== ENCOUNTER 2023-09-24 05:35 | Outpatient (REF) | payer OTHER, SELFPAY ==
[2023-09-24 05:37] LABS: MANUAL DIFF FLAG NO
[2023-09-24 05:51] LABS: Basophils Percent Auto 0.5 % (0-2); Eosinophils Absolute Auto 0.7 X10*3/uL (0.0-0.4); Eosinophils Percent Auto 8.2 % (0-4); Hematocrit 32.7 % (42.0-52.0); Hemoglobin 10.9 g/dl (14.0-18.0); Imm Gran Abs Auto 0.04 X10*3/uL (0.00-0.03); Imm Gran Pct Auto 0.5 % (0.0-0.4); Lymphocytes Absolute Auto 1.3 X10*3/uL (1.2-4.9); Lymphocytes Percent Auto 15.6 % (20-40); Mean Corpuscular HGB Conc 33.3 g/dl (31.0-36.0); Mean Corpuscular Hemoglobin 28.5 pg (27.0-33.0); Mean Corpuscular Volume 85.6 fL (80.0-98.0); Mean Platelet Volume 9.4 fL (9.4-12.4); Monocytes Absolute Auto 0.7 X10*3/uL (0.1-1.2); Monocytes Percent Auto 8.6 % (2-11); Neutrophils Absolute Auto 5.4 x10*3/uL (2.0-8.3); Neutrophils Percent Auto 66.6 % (45-73); Platelet Count 369 X10*3/uL (160-400); Red Blood Count 3.82 X10*6/uL (4.60-5.80); Red Cell Distribution Width 13.2 % (11.0-16.0)
[2023-09-24 06:02] LABS: Alanine Aminotransferase 17 U/L (0-40); Albumin Level 3.1 g/dL (3.5-5.0); Alkaline Phosphatase 102 U/L (39-117); Anion Gap 14 (12-20); Aspartate Amino Transferase 25 U/L (5-37); Bilirubin Total 0.2 mg/dL (0.0-1.0); Blood Urea Nitrogen 14 mg/dL (9-16); Calcium 9.5 mg/dL (8.4-10.2); Carbon Dioxide 30 mmol/L (22-29); Chloride 106 mmol/L (96-108); Estimated Glomerular Filt Rate > 60; Glucose Random 183 mg/dL (60-115); Potassium 4.6 mmol/L (3.3-5.1); Sodium 145 mmol/L (135-145); Total Protein 6.2 g/dL (6.5-8.0)
== END 2023-09-24 05:36 | disposition home or self-care (01) ==
LOC: HO.MMNH1L 05:35
PROVIDERS: Visit Provider Family Medicine
DX: E11.9 Type 2 diabetes mellitus without complications (principal); E78.5 Hyperlipidemia, unspecified
CPT/HCPCS: 36415; 80053; 85025

== ENCOUNTER 2023-09-29 07:19 | Outpatient (REF) | payer OTHER, SELFPAY ==
[2023-09-29 06:35] LABS: MANUAL DIFF FLAG NO
[2023-09-29 07:11] LABS: Basophils Absolute Auto 0.1 X10*3/uL (0.0-0.2); Basophils Percent Auto 0.6 % (0-2); Eosinophils Absolute Auto 1.3 X10*3/uL (0.0-0.4); Eosinophils Percent Auto 14.3 % (0-4); Hematocrit 33.2 % (42.0-52.0); Hemoglobin 10.8 g/dl (14.0-18.0); Imm Gran Abs Auto 0.09 X10*3/uL (0.00-0.03); Lymphocytes Absolute Auto 1.5 X10*3/uL (1.2-4.9); Lymphocytes Percent Auto 15.6 % (20-40); Mean Corpuscular HGB Conc 32.5 g/dl (31.0-36.0); Mean Corpuscular Hemoglobin 28.6 pg (27.0-33.0); Mean Corpuscular Volume 87.8 fL (80.0-98.0); Mean Platelet Volume 9.3 fL (9.4-12.4); Monocytes Absolute Auto 0.7 X10*3/uL (0.1-1.2); Monocytes Percent Auto 7.5 % (2-11); Neutrophils Absolute Auto 5.7 x10*3/uL (2.0-8.3); Platelet Count 497 X10*3/uL (160-400); Red Blood Count 3.78 X10*6/uL (4.60-5.80); Red Cell Distribution Width 13.4 % (11.0-16.0); White Blood Count 9.3 X10*3/uL (4.8-10.8)
[2023-09-29 07:32] LABS: Anion Gap 14 (12-20); Blood Urea Nitrogen 12 mg/dL (9-16); Calcium 8.9 mg/dL (8.4-10.2); Carbon Dioxide 24 mmol/L (22-29); Chloride 109 mmol/L (96-108); Estimated Glomerular Filt Rate > 60; Glucose Random 75 mg/dL (60-115); Potassium 3.9 mmol/L (3.3-5.1); Sodium 143 mmol/L (135-145)
== END 2023-09-29 07:20 | disposition home or self-care (01) ==
LOC: HO.MMNH1L 07:19
PROVIDERS: Visit Provider Family Medicine
DX: E78.5 Hyperlipidemia, unspecified (principal); E11.9 Type 2 diabetes mellitus without complications
CPT/HCPCS: 36415; 80048; 85025

== ENCOUNTER 2023-12-31 16:59 | Emergency (ER) | payer OTHER, SELFPAY ==
--- NOTE | ~2023-12-31 | XR_ITS ---
EXAMINATION: XR CHEST CLINICAL INFORMATION: Chest pain. COMPARISON: Chest x-ray November 18, 2022 TECHNIQUE: Frontal view of the chest was obtained. 6:41 PM FINDINGS: Lungs are clear. No pulmonary vascular congestion. There is no pleural effusion. The heart size is normal. The cardiac and mediastinal contours are normal. Orthopedic hardware in the lower cervical upper thoracic spine. There are multilevel degenerative changes of dorsal spine. XR/XR chest 1V IMPRESSION: Unremarkable examination.
--- NOTE | 2023-12-31 17:01 | ECG_ITS ---
Test Reason : cp Blood Pressure : / mmHG Vent. Rate : 099 BPM Atrial Rate : 099 BPM P-R Int : 118 ms QRS Dur : 138 ms QT Int : 396 ms P-R-T Axes : 039 016 148 degrees QTc Int : 508 ms Normal sinus rhythm Left bundle branch block Abnormal ECG When compared with ECG of 26-MAR-2023 08:26, No significant change was found Referred By: Generic ED Physician Electronically Signed By:Clifton Castro
[2023-12-31 17:12] VITALS: BP 119/65; PULSE 102; RESP 18; TEMP 36.7; O2SAT 99; BMI 26.0
[2023-12-31 17:15] LABS: MANUAL DIFF FLAG NO
--- NOTE | 2023-12-31 17:24 | ED.CHESTPAIN ---
HPI - Chest Pain General Chief Complaint: Chest Pain Stated Complaint: SOB, CP, BGL 494 Time Seen by Provider: 12/31/23 17:23 Source: patient Mode of arrival: ambulatory Limitations: no limitations History of Present Illness ED Provider: Dr. Osmany Villeda HPI narrative: 58-year-old male with history diabetes mellitus, hypertension, hyperlipidemia, depression, interstitial lung disease, pneumonia, cervical fracture 05/02/2023 with spinal of procedure 09/16/2023 at [facility] who presents emergency department for evaluation of chest pain. Patient states that he woke up this morning at 07:30 hours with chest pain. Describes the pain is a constant, cramping sensation in the center of his chest and points to his sternum. The pain is 5/10. He states that he felt short of breath and lightheaded with the pain. The pain did radiate down his left arm. He denied diaphoresis, nausea or vomiting. Patient states he has had similar pain in the past but can not recall when he last had this pain. He states that today his glucose was elevated 393. He attributes this to a steroid injection that he had in his right knee. He states however that his glucose then went up to 494. He states he has had increased thirst and increased urinary frequency times several days. The patient states that since his cervical spine surgery on 09/16/2023 he has had a hoarse voice. Related Data Home Medications ?Medication ?Instructions ?Recorded ?Confirmed metformin 1,000 mg tablet,extended 1,000 mg PO BID 11/15/22 03/07/23 release 24hr (osmotic) sitagliptin phosphate 50 mg tablet 50 mg PO DAILY 11/15/22 03/07/23 (Januvia) valsartan 160 mg tablet 160 mg PO DAILY 11/15/22 03/07/23 dulaglutide 1.5 mg/0.5 mL 1.5 mg subcut QWEEK 03/07/23 03/07/23 subcutaneous pen injector (Trulicity) Previous Rx's ?Medication ?Instructions ?Recorded bupropion HCl 150 mg 24 hr tablet, 1 tab PO DAILY #30 tabs 03/14/22 extended release bupropion HCl 300 mg 24 hr tablet, 1 tab PO DAILY #30 tabs 03/14/22 extended release amlodipine 10 mg tablet 10 mg PO DAILY #30 tabs 11/22/22 hydralazine 25 mg tablet 25 mg PO TID #90 tabs 11/22/22 aripiprazole 5 mg tablet (Abilify) 5 mg PO BEDTIME 30 days #30 tabs 03/24/23 duloxetine 30 mg capsule,delayed 30 mg PO DAILY 30 days #30 caps 03/24/23 release melatonin 3 mg tablet 6 mg (2 x 3 mg) PO BEDTIME PRN 03/24/23 Insomnia 30 days #60 tabs mirtazapine 15 mg tablet 15 mg PO BEDTIME 30 days #30 tabs 03/24/23 cyclobenzaprine 10 mg tablet 10 mg PO Q8H #20 tabs 04/25/23 ibuprofen 600 mg tablet 600 mg PO Q6H PRN fever or pain 04/25/23 #30 tabs dexamethasone 4 mg tablet 4 mg PO BID #6 tabs 05/02/23 tramadol 50 mg tablet 50 mg PO TID PRN severe pain 05/02/23 (scale score 7-10) #12 tabs Allergies Allergy/AdvReac Type Severity Reaction Status Date / Time codeine [CODEINE] Allergy Unknown delayed Verified 12/31/23 17:15 responses 02/24/17 Review of Systems Review of Systems: Yes all other systems are reviewed and are negative [facility] Past Medical History [facility] Narrative: Social history: The patient denies tobacco use. He occasionally drinks alcohol. He denies drug use. Medical History Suicidal ideation Heart disease, unspecified Major depressive disorder, recurrent severe without psychotic features ILD (interstitial lung disease) Preop cardiovascular exam Osteomyelitis Diabetic foot ulcer LBBB (left bundle branch block) Type 2 diabetes mellitus with foot ulcer HTN (hypertension) Suicidal ideation Depression Surgical History H/O: vasectomy Family History Family History Father Neck malignant neoplasm Social History Social History Household Members: Family Housing: House Do you presently have visiting nurse or other home services: No Unable to assess alcohol history related to: Unknown Alcohol intake: never Patient Tobacco Use Status: Never used Tobacco Smoked in Last 30 Days: No e-Cigarette/Vaping Use: Never Used Second Hand Smoke Exposure: No Use of substances other than those prescribed or required for medical reasons: No Substance Use Type: Marijuana Advance Directives: Yes Advance Directives on File: Yes Advance Directives Date on File: 04/11/22 service: No Current occupational status: employed Sexual orientation: Straight/Heterosexual Physical Exam Vital Signs: Vital Signs: Last Vital Signs Temp 98.2 F 12/31/23 20:26 Pulse 82 12/31/23 20:26 Resp 11 L 12/31/23 20:26 BP 164/80 H 12/31/23 20:26 Pulse Ox 98 12/31/23 20:26 O2 Del Method Room Air 12/31/23 20:26 O2 Flow Rate 100 12/31/23 18:20 BMI result Body Mass Index 26.0 Vital signs revealed an elevated heart rate of 102 otherwise unremarkable. Exam: General: Awake, alert in no distress, the patient does have a hoarse, raspy voice but he states that this has been present since his cervical spine surgery in September of 2023 Head: Normocephalic, atraumatic EENT: PERRL, Lids normal, sclera normal, conjunctiva normal, nose normal , ears normal, throat without erythema or exudates Neck: Supple, no adenopathy Lung: breath sounds symmetric, no wheezing, rales or rhonchi Chest: symmetric movement, nontender Heart: regular rate and rhythm, normal S1, S2 no murmurs or rubs Abdomen: soft, non-tender, nondistended, normal bowel sounds Back: no vertebral tenderness, no CVAT Extremities: no deformities, moves all extremities symmetrically Neuro: Awake, alert, oriented, normal speech, cranial nerves intact, moves all extremities symmetrically Psych: Pleasant, cooperative Medications Administered Discontinued Medications Generic Name Dose Route Start Last Admin Trade Name Freq PRN Reason Stop Dose Admin Sodium Chloride 1,000 mls @ 999 mls/hr 12/31/23 18:07 12/31/23 19:41 Ns IV 12/31/23 19:07 Infused .Q1H1M STA Infusion Sodium Chloride 1,000 mls @ 999 mls/hr 12/31/23 18:14 12/31/23 19:41 Ns IV 12/31/23 19:14 Infused .Q1H1M STA Infusion Insulin Human Regular 10 unit 12/31/23 18:13 12/31/23 18:31 Insulin Regular, Human 100 Unit/Ml 10 Ml Vial IVPUSH 12/31/23 18:14 10 unit ONCE ONE Administration Morphine Sulfate 4 mg 12/31/23 18:07 12/31/23 18:33 Morphine Sulfate 4 Mg/Ml Cartridge IVPUSH 12/31/23 18:08 4 mg ONCE STA Administration Protocol Morphine Sulfate 4 mg 12/31/23 19:32 12/31/23 20:15 Morphine Sulfate 4 Mg/Ml Cartridge IVPUSH 12/31/23 19:33 4 mg ONCE STA Administration Protocol Medical Decision Making Medical Decision Making MDM Narrative: 58-year-old male with history diabetes mellitus, hypertension, hyperlipidemia, depression, interstitial lung disease, pneumonia, cervical fracture 05/02/2023 with spinal of procedure 09/16/2023 at [facility] who presents emergency department for evaluation of chest pain. Patient states that he woke up with the pain at 07:00 hours, the pain is been constant, located in the center of his chest, associated with lightheadedness and left arm pain no nausea, vomiting or diaphoresis. Patient may have had similar pain in the past but can not recall when he had this pain. Patient did have a right knee steroid injection and had noted increased glucose since the ingestion with extremely high glucose value on his home monitor today of greater than 400. States he has had increased urinary frequency and increased thirst. Vital signs did reveal an elevated heart rate of 102 otherwise his exam was unremarkable Differential diagnosis: ?Includes but is not limited to myocardial infarction, myocardial ischemia, pulmonary embolism, costochondritis, chest wall pain, volume depletion/dehydration secondary to high glucose , diabetic diet noncompliance, electrolyte abnormalities Following evaluation was ordered: CBC, CMP, PT/INR, PTT, D-dimer, troponin now and troponin 3 hours, chest x-ray, EKG Patient was initially treated with the following: Cardiac monitoring, O2 saturation monitoring, IV insert, regular insulin 10 units IV, normal saline IV x2 L, morphine 4 mg IV Course: 18:25 My interpretation patient's laboratory evaluation is as follows:, microcytic anemia with an H&H of 10.4 and 35.8 with an MCV of 77.2. Normal PT/INR and PTT. D-dimer was 214 which is less than the 230 cut off for PE risk. Troponin was detectable but not elevated at 2.9. Repeat troponin due at 20:00 hours. Elevated BUN and creatinine above baseline 38 and 1.52 09/29/2023 BUN and creatinine were 12 and 0.74. Glucose elevated 515. Twelve EKG revealed like bundle-branch block which was unchanged compared to 03/26/2023 21:30 The patient's repeat 3 hour troponin was 3.4 which is reassuring and suggests the patient's chest pain was not secondary to myocardial injury or infarction. His pain is most likely caused by musculoskeletal pain pain. The patient did complete his 2 L of normal saline IV and point of care glucose improved to 267. The patient was advised to eat a snack before going to bed and to take his nighttime Lantus as as usual. He was advised to increase his fluid intake throughout the day tomorrow and to take his metformin as prescribed as well. He was given printed and verbal instructions and discharged home. The patient's iron and iron saturation were low with a normal TIBC. Suspect that the patient does have iron deficient anemia and I did discuss this with him. He was advised to take ferrous sulfate 325 mg pills 1 pill twice a day for 2 months. He was also advised to follow up with his doctor to rule out possible GI source was iron deficiency and I did discuss possible upper GI bleeds versus colon cancer/lower GI bleeds with the patient Admission/Observation Consideration of admission/observation: Escalation of care including admission/observation considered Lab Data MDM Lab Attestation statement: I reviewed the patient's lab results. 12/31/23 17:09 12/31/23 17:09 Labs: Lab Results 12/31/23 12/31/23 12/31/23 Range/Units 17:09 18:58 19:35 WBC 8.4 (4.8-10.8) X10*3/uL RBC 4.64 D (4.60-5.80) X10*6/uL Hgb 10.9 L (14.0-18.0) g/dl Hct 35.8 L (42.0-52.0) % MCV 77.2 L (80.0-98.0) fL MCH 23.5 L (27.0-33.0) pg MCHC 30.4 L (31.0-36.0) g/dl RDW 15.6 (11.0-16.0) % Plt Count 334 D (160-400) X10*3/uL MPV 10.1 (9.4-12.4) fL Immature Gran % (Auto) 0.4 (0.0-0.4) % Neut % (Auto) 75.3 H (45-73) % Lymph % (Auto) 16.9 L (20-40) % [place] % (Auto) 7.0 (2-11) % Eos % (Auto) 0.2 (0-4) % Baso % (Auto) 0.2 (0-2) % Lymph # (Auto) 1.4 (1.2-4.9) X10*3/uL [place] # (Auto) 0.6 (0.1-1.2) X10*3/uL Eos # (Auto) 0.0 (0.0-0.4) X10*3/uL Baso # (Auto) 0.0 (0.0-0.2) X10*3/uL Abs Immat Gran (auto) 0.03 (0.00-0.03) X10*3/uL Absolute Neuts (auto) 6.3 (2.0-8.3) x10*3/uL Absolute Nucleated RBC 0.000 (0.0-0.012) X10*3/uL Nucleated RBC % (auto) 0.0 (0.0-0.2) /100WBC PT 11.5 (11.1-13.3) SEC INR 0.9 (0.9-1.1) APTT 28.7 (26.0-36.8) SEC D-Dimer High Sensitivty 214 NG/ML Sodium 137 (135-145) mmol/L Potassium 4.4 (3.3-5.1) mmol/L Chloride 101 (96-108) mmol/L Carbon Dioxide 27 (22-29) mmol/L Anion Gap 13 (12-20) BUN 38 H (9-16) mg/dL Creatinine 1.52 H (0.5-1.4) mg/dL Estim Creat Clear Calc 50.6 Estimated GFR 47 POC Glucose 352 H* 326 H (60-115) mg/dL Random Glucose 515 H* (60-115) mg/dL Calcium 10.3 H D (8.4-10.2) mg/dL Iron 31 L (45-160) mcg/dL TIBC 385 (228-428) mcg/dL % Saturation 8 L (15-50) % Unsat Iron Binding 354 ug/dL Total Bilirubin 0.3 (0.0-1.0) mg/dL AST 12 (5-37) U/L ALT 8 (0-40) U/L Alkaline Phosphatase 119 H (39-117) U/L Troponin I High Sens 2.9 (<3.5-35.0) ng/L Total Protein 7.6 (6.5-8.0) g/dL Albumin 4.2 (3.5-5.0) g/dL 12/31/23 12/31/23 12/31/23 Range/Units 20:10 20:11 20:38 WBC (4.8-10.8) X10*3/uL RBC (4.60-5.80) X10*6/uL Hgb (14.0-18.0) g/dl Hct (42.0-52.0) % MCV (80.0-98.0) fL MCH (27.0-33.0) pg MCHC (31.0-36.0) g/dl RDW (11.0-16.0) % Plt Count (160-400) X10*3/uL MPV (9.4-12.4) fL Immature Gran % (Auto) (0.0-0.4) % Neut % (Auto) (45-73) % Lymph % (Auto) (20-40) % [place] % (Auto) (2-11) % Eos % (Auto) (0-4) % Baso % (Auto) (0-2) % Lymph # (Auto) (1.2-4.9) X10*3/uL [place] # (Auto) (0.1-1.2) X10*3/uL Eos # (Auto) (0.0-0.4) X10*3/uL Baso # (Auto) (0.0-0.2) X10*3/uL Abs Immat Gran (auto) (0.00-0.03) X10*3/uL Absolute Neuts (auto) (2.0-8.3) x10*3/uL Absolute Nucleated RBC (0.0-0.012) X10*3/uL Nucleated RBC % (auto) (0.0-0.2) /100WBC PT (11.1-13.3) SEC INR (0.9-1.1) APTT (26.0-36.8) SEC D-Dimer High Sensitivty NG/ML Sodium (135-145) mmol/L Potassium (3.3-5.1) mmol/L Chloride (96-108) mmol/L Carbon Dioxide (22-29) mmol/L Anion Gap (12-20) BUN (9-16) mg/dL Creatinine (0.5-1.4) mg/dL Estim Creat Clear Calc Estimated GFR POC Glucose 311 H 267 H (60-115) mg/dL Random Glucose (60-115) mg/dL Calcium (8.4-10.2) mg/dL Iron (45-160) mcg/dL TIBC (228-428) mcg/dL % Saturation (15-50) % Unsat Iron Binding ug/dL Total Bilirubin (0.0-1.0) mg/dL AST (5-37) U/L ALT (0-40) U/L Alkaline Phosphatase (39-117) U/L Troponin I High Sens 3.4 (<3.5-35.0) ng/L Total Protein (6.5-8.0) g/dL Albumin (3.5-5.0) g/dL 12/31/23 Range/Units 21:11 WBC (4.8-10.8) X10*3/uL RBC (4.60-5.80) X10*6/uL Hgb (14.0-18.0) g/dl Hct (42.0-52.0) % MCV (80.0-98.0) fL MCH (27.0-33.0) pg MCHC (31.0-36.0) g/dl RDW (11.0-16.0) % Plt Count (160-400) X10*3/uL MPV (9.4-12.4) fL Immature Gran % (Auto) (0.0-0.4) % Neut % (Auto) (45-73) % Lymph % (Auto) (20-40) % [place] % (Auto) (2-11) % Eos % (Auto) (0-4) % Baso % (Auto) (0-2) % Lymph # (Auto) (1.2-4.9) X10*3/uL [place] # (Auto) (0.1-1.2) X10*3/uL Eos # (Auto) (0.0-0.4) X10*3/uL Baso # (Auto) (0.0-0.2) X10*3/uL Abs Immat Gran (auto) (0.00-0.03) X10*3/uL Absolute Neuts (auto) (2.0-8.3) x10*3/uL Absolute Nucleated RBC (0.0-0.012) X10*3/uL Nucleated RBC % (auto) (0.0-0.2) /100WBC PT (11.1-13.3) SEC INR (0.9-1.1) APTT (26.0-36.8) SEC D-Dimer High Sensitivty NG/ML Sodium (135-145) mmol/L Potassium (3.3-5.1) mmol/L Chloride (96-108) mmol/L Carbon Dioxide (22-29) mmol/L Anion Gap (12-20) BUN (9-16) mg/dL Creatinine (0.5-1.4) mg/dL Estim Creat Clear Calc Estimated GFR POC Glucose 267 H (60-115) mg/dL Random Glucose (60-115) mg/dL Calcium (8.4-10.2) mg/dL Iron (45-160) mcg/dL TIBC (228-428) mcg/dL % Saturation (15-50) % Unsat Iron Binding ug/dL Total Bilirubin (0.0-1.0) mg/dL AST (5-37) U/L ALT (0-40) U/L Alkaline Phosphatase (39-117) U/L Troponin I High Sens (<3.5-35.0) ng/L Total Protein (6.5-8.0) g/dL Albumin (3.5-5.0) g/dL Independent Interpretation I performed an independent interpretation of an: EKG and Plain X-Ray Interpretation: My interpretation patient's 12 EKG done at 17:00 hours is as follows: Normal sinus rhythm with a rate of 99, normal FL interval, prolonged QRS duration of 138 milliseconds, prolonged QTC interval of 508 milliseconds, left bundle-branch block, unchanged compared to EKG dated 03/26/2023. My independent interpretation patient's one-view chest x-ray is as follows: No acute disease Radiology Impression Discussion of test interpretation with radiology: I have reviewed the radiologist's reading. Radiologist Impression: XR chest 1V IMPRESSION: Unremarkable examination. Dictated By: Servando Delgado MD Chronic Conditions Patient?s care impacted by: Diabetes Discharge Plan Discharge Clinical Impression: Chest pain, Acute hyperglycemia, Volume depletion, Acute dehydration, Iron deficiency anemia Patient Disposition: Home, Self-Care Additional Instructions: Your high blood sugar could be secondary to the steroid injection that you received for your knee pain. Your EKG revealed a left bundle-branch block which is unchanged from your previous EKG. Your high sensitive troponin (a marker of heart damage/heart attack) initially was less than 30 and your repeat 3 hour troponin was also less than 30 which is very reassuring suggesting that you did not have a heart attack or heart injury is the cause of your pain. Your kidney numbers were slightly elevated but this was secondary to dehydration/volume depletion caused by your high sugars which caused you to peel lot. When you get home eat a small snack intake your usual dose of nighttime Lantus. Make sure you take your metformin tomorrow as prescribed and increase the amount of fluid you drink to prevent dehydration. Take Tylenol 500 mg pills, 2 pills every 6 hours as needed for pain. Follow-up with your doctor in 2 days. Please return to the emergency department if your symptoms get worse or if you develop any symptoms that are concerning to you. Prescriptions: No Action bupropion HCl 300 mg tablet extended release 24 hr 1 tab PO DAILY Qty: 30 0RF Rx Instructions: Take with 150mg to equal 450mg bupropion HCl 150 mg tablet extended release 24 hr 1 tab PO DAILY Qty: 30 0RF valsartan 160 mg tablet 160 mg PO DAILY metformin 1,000 mg Tablet Extended Release 24 Hr 1,000 mg PO BID Januvia 50 mg Tablet 50 mg PO DAILY hydralazine 25 mg Tablet 25 mg PO TID Qty: 90 0RF Protocol: Hold for SBP< HOLD for SBP < : 90 amlodipine 10 mg Tablet 10 mg PO DAILY Qty: 30 0RF Protocol: Hold for SBP< HOLD for SBP < : 90 cyclobenzaprine 10 mg tablet 10 mg PO Q8H Qty: 20 0RF ibuprofen 600 mg tablet 600 mg PO Q6H PRN (Reason: fever or pain) Qty: 30 0RF Trulicity 1.5 mg/0.5 mL pen injector 1.5 mg subcut QWEEK Rx Instructions: Per PT due today 03/07/23 melatonin 3 mg Tablet 6 mg PO BEDTIME PRN (Reason: Insomnia) 30 Days Qty: 60 0RF mirtazapine 15 mg Tablet 15 mg PO BEDTIME 30 Days Qty: 30 0RF aripiprazole [Abilify] 5 mg Tablet 5 mg PO BEDTIME 30 Days Qty: 30 0RF duloxetine 30 mg Capsule,Delayed Release(Dr/Ec) 30 mg PO DAILY 30 Days Qty: 30 0RF tramadol 50 mg tablet 50 mg PO TID PRN (Reason: severe pain (scale score 7-10)) Qty: 12 0RF dexamethasone 4 mg tablet 4 mg PO BID Qty: 6 0RF Print Language: Turkish
[2023-12-31 17:25] LABS: Basophils Percent Auto 0.2 % (0-2); Eosinophils Percent Auto 0.2 % (0-4); Hematocrit 35.8 % (42.0-52.0); Hemoglobin 10.9 g/dl (14.0-18.0); Imm Gran Abs Auto 0.03 X10*3/uL (0.00-0.03); Imm Gran Pct Auto 0.4 % (0.0-0.4); Lymphocytes Absolute Auto 1.4 X10*3/uL (1.2-4.9); Lymphocytes Percent Auto 16.9 % (20-40); Mean Corpuscular HGB Conc 30.4 g/dl (31.0-36.0); Mean Corpuscular Hemoglobin 23.5 pg (27.0-33.0); Mean Corpuscular Volume 77.2 fL (80.0-98.0); Mean Platelet Volume 10.1 fL (9.4-12.4); Monocytes Absolute Auto 0.6 X10*3/uL (0.1-1.2); Neutrophils Absolute Auto 6.3 x10*3/uL (2.0-8.3); Neutrophils Percent Auto 75.3 % (45-73); Platelet Count 334 X10*3/uL (160-400); Red Blood Count 4.64 X10*6/uL (4.60-5.80); Red Cell Distribution Width 15.6 % (11.0-16.0); White Blood Count 8.4 X10*3/uL (4.8-10.8)
[2023-12-31 17:26] LABS: INTERNATIONAL NORM RATIO 0.9 (0.9-1.1); Prothrombin Time 11.5 SEC (11.1-13.3)
[2023-12-31 17:38] LABS: Troponin-I High Sensitivity 2.9 ng/L (<3.5-35.0)
[2023-12-31 17:39] LABS: Alanine Aminotransferase 8 U/L (0-40); Albumin Level 4.2 g/dL (3.5-5.0); Alkaline Phosphatase 119 U/L (39-117); Anion Gap 13 (12-20); Aspartate Amino Transferase 12 U/L (5-37); Bilirubin Total 0.3 mg/dL (0.0-1.0); Blood Urea Nitrogen 38 mg/dL (9-16); Calcium 10.3 mg/dL (8.4-10.2); Carbon Dioxide 27 mmol/L (22-29); Chloride 101 mmol/L (96-108); Creatinine Clr Calc Pharmacy 50.6; Estimated Glomerular Filt Rate 47; Glucose Random 515 mg/dL (60-115); Potassium 4.4 mmol/L (3.3-5.1); Sodium 137 mmol/L (135-145); Total Protein 7.6 g/dL (6.5-8.0)
[2023-12-31 17:47] LABS: D Dimer High Sensitivity 214 NG/ML
[2023-12-31 17:48] LABS: Partial Thromboplastin Time 28.7 SEC (26.0-36.8)
--- NOTE | 2023-12-31 18:00 | PC.NURSE ---
a&ox4. vss and up to date. nsr on the gambling monitor. pt presents to ED w/ left sided c/p that radiates to left arm w/ associated numbness/tingling. pt also verbalizing sob that increases w/ ambulation. pt states sx occurred upon waking up/getting out of bed this am. labs obtained in triage. pt seen by ED provider/aware of plan of care moving forward. no sob/wob noted. pt positioned upright to promote patent airway. respirations even/unlabored. plan of care ongoing. call lynn placed within reach.
[2023-12-31 18:20] VITALS: BP 105/64; PULSE 94; RESP 18; TEMP 37.1
[2023-12-31] MEDS: 0.9 % Sodium Chloride 1,000 ML 999 ML IV ×2 (18:21)
[2023-12-31] MEDS: Insulin Regular, Human 100 UNIT/ML 10 ML VIAL 10 UNIT IVPUSH (18:31)
[2023-12-31] MEDS: Morphine Sulfate 4 MG/ML CARTRIDGE IVPUSH ×2 (18:33→20:15)
--- NOTE | 2023-12-31 18:37 | PC.NURSE ---
20gIV placed in the left AC - medication/IVF administered per provider order. effectiveness pending. pt waiting for xray to be completed at this time. plan of care ongoing.
[2023-12-31 18:40] LABS: Iron 31 mcg/dL (45-160); Percent Iron Saturation 8 % (15-50); Total Iron Binding Capacity 385 mcg/dL (228-428); Unsaturated Iron Binding 354 ug/dL
[2023-12-31 19:02] LABS: Glucose, Whole Blood 352 mg/dL (60-115)
[2023-12-31 19:39] LABS: Glucose, Whole Blood 326 mg/dL (60-115)
[2023-12-31 20:13] LABS: Glucose, Whole Blood 311 mg/dL (60-115)
[2023-12-31 20:15] VITALS: RESP 13
[2023-12-31 20:26] VITALS: BP 164/80; PULSE 82; RESP 11; TEMP 36.8; O2SAT 98
[2023-12-31 20:37] LABS: Troponin-I High Sensitivity 3.4 ng/L (<3.5-35.0)
[2023-12-31 20:42] LABS: Glucose, Whole Blood 267 mg/dL (60-115)
[2023-12-31 21:14] LABS: Glucose, Whole Blood 267 mg/dL (60-115)
[2023-12-31 22:05] VITALS: BP 143/81; PULSE 86; RESP 16; TEMP 36.8; O2SAT 98
== END 2023-12-31 22:05 | disposition home or self-care (01) ==
PROVIDERS: Emergency Provider Emergency Medicine Emergency Medical Services; PCP Family Medicine
DX: R07.89 Other chest pain (principal); R06.02 Shortness of breath; E86.0 Dehydration; D50.9 Iron deficiency anemia, unspecified; E11.65 Type 2 diabetes mellitus with hyperglycemia; R11.2 Nausea with vomiting, unspecified; Z79.84 Long term (current) use of oral hypoglycemic drugs; Z79.899 Other long term (current) drug therapy
CPT/HCPCS: 36415; 71045; 80053; 82947; 83540; 84484; 85025; 85379; 85610; 85730; 93005; 96361; 96374; 96375; 99284; 99285; J2270

== ENCOUNTER → 2023-12-31 17:01 | Outpatient (BNV) | payer OTHER, SELFPAY | PROVIDERS: Emergency Provider Emergency Medicine Emergency Medical Services; PCP Family Medicine; Visit Provider Internal Medicine Cardiovascular Disease | DX: I44.7 Left bundle-branch block, unspecified (principal) | CPT/HCPCS: 93010 ==

== ENCOUNTER → 2024-11-12 11:15 | Outpatient (BNV) | payer OTHER, SELFPAY | PROVIDERS: Visit Provider Psychiatry & Neurology Psychiatry | DX: F33.2 Major depressive disorder, recurrent severe without psychotic features (principal); F63.0 Pathological gambling; F41.1 Generalized anxiety disorder; R29.898 Other symptoms and signs involving the musculoskeletal system | CPT/HCPCS: 90792; 99214 ==

== ENCOUNTER 2024-11-24 07:57 | Outpatient (REF) | payer OTHER, SELFPAY ==
--- OUTSIDE RECORDS SUMMARY | 2024-11-24 08:00 | XMS_ITS ---
Author Organization [facility] Care Team Providers Care Cottage Attendant Name Role Phone Nuvia Vanegas Unavailable Unavailable Kel Oscar Unavailable Unavailable Tarah Garcia Unavailable Unavailable Allergies and adverse reactions Code CodeSystem Substance Reaction Severity StartDate Concern Status 2670 RXNORM Codeine Unknown 09/23/2023 active Care Team Name Role Address Phone Organization Dates Kel Oscar PCP [address], [address], [place] (Office): : [facility] 09/23/2023 - 10/02/2023 Nuvia Vanegas [address], [address], [facility] 09/23/2023 - 10/02/2023 Tarah Garcia 38 [facility] [address] [place] [address], [address], [place] (Office): [facility] 09/23/2023 - 10/02/2023 Goals Section Description Status Target Date I plan to discharge to: Spec kwesi- To community alone, To Community with Family, [facility], LTC Placement, Other- Undecided at current time. Pending outcome of therapy sessions, clinical medical stability progress reviewed weekly. Active 10/13/2023 I will be at reduced risk fo r adverse drug reactions through the review date. Active 10/13/2023 I will be at reduced risk fo r complications of self care performance deficit and impaired mobility daily through the review date. Active 10/13/2023 I will be at reduced risk fo r new or worsened impaired skin integrity daily through the review date. Active 10/13/2023 I will be free from discomfo rt or adverse side effects related to anti-depressant therapy through the review date. Active 10/12 I will be free from discomfo rt or adverse side effects related to anti-psychotic therapy through the review date. Active 2023 I will be free of fall relat ed injury through the next review date. Active 10/13/2023 I will maintain adequate nut ritional status as evidenced by maintaining weight within +/- 5% of CBW, no s/sx of malnutrition, and consuming at least 75% of at least 2-3 meals daily through review date. Active 10/13/2023 I will not have discomfort r elated to side effects of analgesia through the review date. Active 10/13/2023 I will remain free of compli cations related to fracture, such as contracture formation, embolism and immobility through review date. Active 10/13/2023 I will verbalize adequate re lief of pain or ability to cope with incompletely relieved pain through the review date. Active The resident's advance direc tives are in effect and their wishes will be carried out through the next review. Active Immunizations Immunization Status Vaccine Details Vaccine Code CodeSystem Shady e Notes Influenza completed Influenza, split virus, trivalent, injectable, contains preservative 141 CVX created date: 09/28/2023 administered date: 05/26/2023 (COVID-19) [employer] Original Primary Dose Vaccine 2 of 2 completed SARS-COV-2 (COVID-19) vaccine, mRNA, spike protein, LNP, preservative free, 30 mcg/0.3mL dose 208 CVX created date: 09/28/2023 administered date: 10/22/2020 (COVID-19) [employer] Original Primary Dose Vaccine 1 of 2 completed SARS-COV-2 (COVID-19) vaccine, mRNA, spike protein, LNP, preservative free, 30 mcg/0.3mL dose 208 CVX created date: 09/28/2023 administered date: 10/01/2020 (COVID-19) [employer] Original Booster Vaccine completed SARS-COV-2 (COVID-19) vaccine, mRNA, spike protein, LNP, preservative free, 30 mcg/0.3mL dose 208 CVX created date: 09/28/2023 administered date: 06/21/2021 (COVID-19) [employer] Bivalent Vaccine completed SARS-COV-2 (COVID-19) vaccine, mRNA, spike protein, LNP, bivalent, preservative free, 30 mcg/0.3 mL dose, dale-sucrose formulation 300 CVX created date: 09/28/2023 administered date: 06/04/2022 (Tetanus, Diphtheria, and Acellular Pertussis) Tdap completed tetanus toxoid, reduced diphtheria toxoid, and acellular pertussis vaccine, adsorbed 115 CVX created date: 09/28/2023 administered date: 02/07/2022 Mental Status Section Date Assessment Total Score Description 10/01/2023 CAM 0 No delirium ind icated 09/29/2023 BIMS 13 cognitively int act CAM 0 No delirium ind icated PHQ-9 00 Problems Problem # Description Date of onset Resolved Date Code CodeSystem Concern Status 1 BORDERLINE PERSONALITY DISORDER 09/23/2023200042852247 SNOMED CT active 2 CHEST PAIN, UNSPECIFIED 09/23/[address] active 3 ESSENTIAL (PRIMARY) HYPERTENSION 09/23/[address] active 4 MAJOR DEPRESSIVE DISORDER, SINGLE EPISODE, UNSPECIFIED 09/23/[address] active 5 MEDULLARY CYSTIC KIDNEY 09/23/[address] active 6 MUSCLE WASTING AND ATROPHY, NOT ELSEWHERE CLASSIFIED, MULTIPLE SITES 09/23/[address] active 7 OTHER LACK OF COORDINATION 09/23/[address] active 8 OTHER SPECIFIED ABNORMALITIES OF PLASMA PROTEINS 09/23/[address] active 9 PURE HYPERCHOLESTEROLEMI A, UNSPECIFIED 09/23/[address] active 10 TYPE 2 DIABETES MELLITUS WITHOUT COMPLICATIONS 09/23/[address] active 11 UNSPECIFIED LACK OF COORDINATION 09/23/[address] active 12 UNSPECIFIED OSTEOARTHRITIS, UNSPECIFIED SITE 09/23/[address] active Reason for Referral No Reasons for Referral Entered Social History Social History Observation Description Start Date End Date Code Code System Current Smoking Status Tobacco smoking consumption unknown 275513613 SNOMED CT Sex Assigned At Male 1965 59393-8 [facility] Gender Identity Vital Signs Code Code System Vitals Name Values and Units Timing Information 2339-0 [facility] Blood Sugar Wuyxq=786.0 Units=mg/dL 10/02/2023 9279-1 [facility] Respiratory Rate Value=20.0 Units=/m in 10/02/2023 8462-4 [facility] Blood Pressure-Diastolic Value=63 Un its=mmHg 10/02/2023 8480-6 [facility] Blood Pressure-Systolic Utvht=414 Un its=mmHg 10/02/2023 8310-5 [facility] Body Temperature Value=98.5 Units=?? F 10/02/2023 8867-4 [facility] Heart rate Plsdf=344.0 Units=/min 10/02/2023 24991-6 [facility] O2 % BldC Oximetry Value=94.0 Units= % 10/02/2023 57396-9 [facility] Pain Level Value=0.0 10/01/2023 79439-6 [facility] Weight Vcmug=382.0 Units=Lbs 8302-2 [facility] Height Value=71.0 Units=Inches 09/23/2023
--- OUTSIDE RECORDS SUMMARY | 2024-11-24 08:00 | XMS_ITS | Clinical Summary ---
Author Organization [facility] Address [address] [place] [address] Care Team Providers Care Network Desktop Support Specialist Name Role Phone Crystal DENNIS MD, Chong Jett Primary Care Provider [phone] Allergies Active Allergy Reactions Criticality Noted Date Comments Codeine Other (See Comments) 08/18/2015 Gets hazy Medications Medication Sig Dispensed Refills Start Date End Date Status lisinopril (PRINIVIL,ZESTRIL) tablet 10 mg Take 10 mg by mouth daily. 0 Active metFORMIN (GLUCOPHAGE) tablet 500 mg Take 1,000 mg by mouth 2 (two) times a day with meals. 0 Active rosuvastatin (CRESTOR) tablet 20 mg Take 20 mg by mouth daily. 0 Active lamoTRIgine (LAMICTAL) 100 MG tablet Take 200 mg by mouth daily. 0 Active buPROPion (WELLBUTRIN) 100 MG tablet Take 150 mg by mouth 2 (two) times a day. 0 Active insulin glargine (LANTUS) injection 100 units/mL Inject 80 Units under the skin every night at bedtime. 0 Active ARIPiprazole (ABILIFY) 5 MG tablet 0 06/17/2020 Active buPROPion (WELLBUTRIN XL) 150 MG 24 hr tablet 0 06/17/2020 A ctive TRULICITY 0.75 MG/0.5ML subcutaneous pen-injector 0 07/31/2020 Active metFORMIN (GLUCOPHAGE-XR) ER 24 hr tablet 500 mg 0 07/25/2020 Active JANUVIA 50 MG tablet Take 50 mg by mouth daily. 0 07/31/2020 Active valsartan (DIOVAN) tablet 80 mg 0 07/25/2020 Active Active Problems Problem Noted Date Diagnosed Date Right elbow pain 08/04/2020 Lateral epicondylitis, right elbow 08/04/2020 Rotator cuff impingement syndrome of left should er 08/29/2016 Family History Medical History Relation Name Comments No Sig Med Hx Brother 1 No Sig Med Hx Brother 2 No Sig Med Hx Father No Sig Med Hx Mother No Sig Med Hx Sister 1 Relation Name Status Comments Brother 1 Alive Brother 2 Alive Father Alive Mother Alive Sister 1 Alive Sister 2 Alive Social History Tobacco Use Types Packs/Day Years Used Date Smoking Tobacco: Never Smokeless Tobacco: Never Alcohol Use Standard Drinks/Week Comments Yes 0 (1 standard drink = 0.6 oz pur e alcohol) socially Sex and Gender Information Value Date Recorded Sex Assigned at Male 07/03/2020 10:48 AM EST Gender Identity Not on file Sexual Orientation Not on file Last Filed Vital Signs Vital Sign Reading Time Taken Comments Blood Pressure - - Pulse - - Temperature - - Respiratory Rate - - Oxygen Saturation - - Inhaled Oxygen Concentration - - Weight 84.8 kg (187 lb) 08/29/2016 1:37 PM EST p t reported Height 172.7 cm (5' 8 ) 08/29/2016 1:37 PM EST p t reported Body Mass Index 28.43 08/29/2016 1:37 PM EST Plan of Treatment Health Maintenance Due Date Last Done Comments Hepatitis B Vaccines (1 of 3 - 3-dose series) 1965 Hepatitis C Screening 1965 COVID-19 Vaccine (#1) 05/31/1965 Pneumococcal Vaccine (1 of 2 - PCV) 1970 Depression Screening 1976 Preventative Health Evaluation 1982 DTap / Tdap / Td (1 - Tdap) 11/29/1983 Colon Cancer Screening (Colonoscopy) 2009 Shingrix-Zoster Vaccine (1 of 2) 2014 Influenza Vaccine (#1) 2024 RSV Ped < 20 months Aged Out No longe r eligible based on patient's age to complete this topic Care Teams Network Desktop Support Specialist Relationship Specialty Start Date End Date Chong Rojas II, MD [address] [place] [address] PCP - General Internal Medicine 08/10/15
--- OUTSIDE RECORDS SUMMARY | 2024-11-24 08:00 | XMS_ITS | Clinical Summary ---
Author Organization [facility] it Address [address] [place] [address] Care Team Providers Care Spinning Lathe Operator Hydraulic Name Role Phone Chong Rojas MD Primary Care Provider [phone] Medical History Medical History Date Comments Right hand pain DX:Right hand pa in Anxiety DX:Anxiety Depression DX:Depression Hyperlipidemia DX:Hyperlipidemi a High blood pressure DX:High bloo d pressure Diabetes mellitus (CMS/HCC V24, CMS/HCC V28) DX:Diabetes mellitus ([facility]) Family History Medical History Relation Name Comments No Known Problems Brother 1 No Known Problems Brother 2 No Known Problems Father No Known Problems Mother No Known Problems Sister 1 Relation Name Status Comments Brother 1 Alive Brother 2 Alive Father Alive Mother Alive Sister 1 Alive Sister 2 Alive Social History Tobacco Use Types Packs/Day Years Used Date Smoking Tobacco: Never Smokeless Tobacco: Never Alcohol Use Standard Drinks/Week Comments Yes 0 (1 standard drink = 0.6 oz pur e alcohol) Sex and Gender Information Value Date Recorded Sex Assigned at Not on file Legal Sex Male 9:57 AM EST Gender Identity Not on file Sexual Orientation Not on file Obstetrics History Plan of Treatment Health Maintenance Due Date Last Done Comments DTaP,Tdap,and Td Vaccines (1 - Tdap) 11/29/1983 Hepatitis B Vaccines (1 of 3 - 19+ 3-dose series) 11/29/1983 Pneumococcal Vaccine: 50+ Ye ars (1 of 1 - PCV) 2014 Zoster Vaccines (1 of 2) 2014 COVID-19 Vaccine ( - 2023-2 5 season) 2024 Influenza Vaccine (Season Ended) 2025 RSV Immunization Adult Patie nts (1 - 1-dose 75+ series) 11/29/2039 HIB Vaccines Aged Out No longer eligi ble based on patient's age to complete this topic HPV Vaccines Aged Out No longer eligi ble based on patient's age to complete this topic Hepatitis A Vaccines Aged Out No long er eligible based on patient's age to complete this topic IPV Vaccines Aged Out No longer eligi ble based on patient's age to complete this topic MMR Vaccines Aged Out No longer eligi ble based on patient's age to complete this topic Meningococcal ACWY Vaccine Aged Out N o longer eligible based on patient's age to complete this topic Meningococcal B Vaccine Aged Out No l onger eligible based on patient's age to complete this topic Pneumococcal Vaccine: Pediat rics (0 to 5 Years) and At-Risk Patients (6 to 64 Years) Aged Out No longer eligible b ased on patient's age to complete this topic RSV Immunization Patients Un audelia 20 months Aged Out No longer eligible b ased on patient's age to complete this topic Varicella Vaccines Aged Out No longer eligible based on patient's age to complete this topic Care Teams Spinning Lathe Operator Hydraulic Relationship Specialty Start Date End Date Chong Rojas MD [address] [place] [address] [address] [facility] P[facility] - General Internal Medicine 08/10/15
--- OUTSIDE RECORDS SUMMARY | 2024-11-24 08:00 | XMS_ITS ---
Author Organization Unknown Address [address] [place] [phone] Phone Care Team Providers Care Admissions Gate Attendant Name Role Phone BEATRIZ CHIQUITA Jewel Registered Nurse Unavailable MALCOLM WATERMAN Registered Nurse Unavailab kurtis SOLORZANO Registered Nurse Unavailable NIKOLAI Bai Attending Unavailable UNLISTED PROVIDER - REQUESTED Xhandoff Un available Results NOVA GLUCOSE FINGER HEEL CAP ILLARY - Collect Date/Time: 05/03/2024 05:28 [facility] ID: [id number] [address] [place] [address], [phone] LOINC: 97647-1 Test Value Unit Reference Range Code Code System Flag GLUCOSE CAP 169 mg/dL L=70 H=116 18199-3 LOINC H TROPONIN HIGH SENSITIVITY* - Collect Date/Time: 05/03/2024 04:50 [facility] ID: [id number] [address] [place] [address], [address] LOINC: 84092-9 Test Value Unit Reference Range Code Code System Flag TROPONIN HS 7.5 pg/mL L=0.0 H=60.4 Specimen seq. RANDOM BNP (PRO-B NATRIURETIC PEPTI DE) - Collect Date/Time: 05/03/2024 04:50 [facility] ID: [id number] [address] [place] [address], [address] LOINC: 16049-8 Test Value Unit Reference Range Code Code System Flag NT-proBNP 206.0 pg/mL L=0.0 H=125 60555-4 LOINC H NOVA GLUCOSE FINGER HEEL CAP ILLARY - Collect Date/Time: 05/03/2024 03:30 [facility] ID: [id number] [address] [place], [place], [id number] LOINC: 26860-4 Test Value Unit Reference Range Code Code System Flag GLUCOSE CAP 252 mg/dL L=70 H=116 53923-0 LOINC H NOVA GLUCOSE FINGER HEEL CAP ILLARY - Collect Date/Time: 05/03/2024 02:03 [facility] ID: [id number] [address] [place] [address], [id number] LOINC: 79971-9 Test Value Unit Reference Range Code Code System Flag GLUCOSE CAP 280 mg/dL L=70 H=116 27648-0 LOINC H NOVA GLUCOSE FINGER HEEL CAP ILLARY - Collect Date/Time: 05/03/2024 00:35 [facility] ID: [id number] [address] [place] [address], [id number] LOINC: 81388-5 Test Value Unit Reference Range Code Code System Flag GLUCOSE CAP 308 mg/dL L=70 H=116 10491-8 LOINC H URINALYSIS ROUTINE* - Colle t Date/Time: 05/02/2024 23:40 [facility] ID: [id number] [address] [place] [address], [address] LOINC: Test Value Unit Reference Range Code Code System Flag COLLECTION MODE: VOID 27909-7 LOINC Color YELLOW yellow 5778-6 LOINC Appearance CLEAR clear 5767-9 LOINC Glucose urine >=1000 negative mg/dl 49058-5 LOINC A Bilirubin NEGATIVE negative 5770-3 LOINC Ketones NEGATIVE negative mg/dl 2514-8 LOINC Spec gravity 1.010 1.003 - 1.030 5811-5 LOINC pH urine 5.5 5.0 - 7.0 2756-5 LOINC Protein NEGATIVE negative mg/dl 31443-9 LOINC Urobilinogen 0.2 <or= 1 EU/dl 29303-3 LOINC Nitrite NEGATIVE negative 5802-4 LOINC Blood NEGATIVE negative 5794-3 LOINC Leukocytes NEGATIVE negative 26376-2 LOINC MICROSCOPIC* NOT INDICAT MAGNESIUM SERUM* - Collect D ate/Time: 05/02/2024 23:20 [facility] ID: [id number] [address] [place], [place], [address] LOINC: 58966-7 Test Value Unit Reference Range Code Code System Flag MAGNESIUM 1.7 mg/dL L=1.8 H=2.4 54742-5 LOINC L LACTIC ACID - Collect Date/T marley: 05/02/2024 23:20 [facility] ID: [id number] [address] [place] [address], [address] LOINC: Test Value Unit Reference Range Code Code System Flag LACTIC ACID 2.2 mmol/L L=0.7 H=2.1 60445-9 LOINC H COMPREHENSIVE METABOLIC PANE L (CMP) - Collect Date/Time: 05/02/2024 23:20 [facility] ID: [id number] [address] [place] [address], [address] LOINC: 03083-7 Test Value Unit Reference Range Code Code System Flag GLUCOSE 320 mg/dL L=70 H=116 2345-7 LOINC H BUN 15 mg/dL L=6 H=25 3094-0 LOINC CREATININE 1.01 mg/dL L=0.67 H=1.17 2160-0 LOINC SODIUM SERUM 141 mmol/L L=136 H=145 2951-2 LOINC POTASSIUM SERUM 3.7 mmol/L L=3.4 H=5.2 2823-3 LOINC CHLORIDE SERUM 105 mmol/L L=96 H=110 2075-0 LOINC CARBON DIOXIDE (CO2) 29 mmol/L L=22 H=34 2028-9 LOINC ANION GAP 6.7 mmol/L 41096-6 LOINC CALCIUM SERUM 8.2 mg/dL L=8.2 H=10.2 90870-3 LOINC BILIRUBIN TOTAL 0.2 mg/dL L=0.0 H=1.3 1975-2 LOINC ALK. PHOS. 98 U/L L=46 H=116 6768-6 LOINC SGOT (AST) 10 U/L L=15 H=37 1920-8 LOINC L SGPT (ALT) 11 U/L L=12 H=78 1742-6 LOINC L TOTAL PROTEIN 6.0 gm/dL L=6.0 H=8.0 2885-2 LOINC ALBUMIN 2.6 gm/dL L=3.4 H=5.0 1751-7 LOINC L AGE 58 years eGFR (non-Afr.Amer.) 76 mL/min 51886-0 LOINC eGFR (Afr-Citizen Of [place]) 91 mL/min 05407-3 LOINC CBC W/ DIFFERENTIAL* - Colle ct Date/Time: 05/02/2024 23:20 [facility] ID: [id number] [address] [place] [address], [address] LOINC: 87053-2 Test Value Unit Reference Range Code Code System Flag WBC 6.38 th/cmm L=5.00 H=10.00 6690-2 LOINC NEUT % 61.9 % L=40.0 H=80.0 LYMPH % 25.4 % L=10.0 H=50.0 MONO % 9.6 % L=2.0 H=12.0 84140-1 LOINC EOS % 2.0 % L=0.0 H=8.0 BASO % 0.5 % L=0.0 H=3.0 IG % 0.6 % L=0.0 H=1.1 2514-8 LOINC NRBC % 0.0 % L=0.0 H=0.0 34672-4 LOINC NEUT abs count 4.0 th/cmm L=1.6 H=8.4 751-8 LOINC LYMPH abs count 1.6 th/cmm L=1.5 H=4.0 731-0 LOINC MONO abs count 0.6 th/cmm L=0.2 H=1.0 742-7 LOINC EOS abs count 0.1 th/cmm L=0.0 H=0.5 711-2 LOINC BASO abs count 0.0 th/cmm L=0.0 H=0.2 704-7 LOINC IG abs count 0.0 th/cmm L=0.0 H=0.1 36043-2 LOINC NRBC abs count 0.0 mil/cmm L=0.0 H=0.0 65765-7 LOINC RBC 4.17 mil/cmm L=4.30 H=6.20 789-8 LOINC L HEMOGLOBIN 9.8 gm/dL L=13.0 H=17.0 718-7 LOINC L HEMATOCRIT 33 % L=45 H=52 4544-3 LOINC L MCV 79 fL L=82 H=92 787-2 LOINC L MCH 23.5 pg L=27.0 H=31.0 785-6 LOINC L MCHC 29.8 % L=32.0 H=36.0 786-4 LOINC L RDW-SD 51.9 fL L=39.0 H=49.0 788-0 LOINC H PLATELET COUNT 245 th/cmm L=150 H=450 777-3 LOINC NOVA GLUCOSE FINGER HEEL CAP ILLARY - Collect Date/Time: 05/02/2024 23:00 [facility] ID: [id number] [address] [place], [place], [id number] LOINC: 37583-1 Test Value Unit Reference Range Code Code System Flag GLUCOSE CAP 318 mg/dL L=70 H=116 26845-6 LOINC H XR CHEST PORTABLE OR 1V - Co mpleted: 05/02/2024 23:30 LOINC: [facility] RADI[facility] [place], [place] [address] RADI[facility] REPORT Patient Name: BELLE PIERRE MRN: Sex: : Age: [id number] M 1965 58 Account: Accession: Admit: StayType: [id number] 05/02/2024 E Ordered: Order ID: Submitted: Ordering Provider: 05/02/2024 23:14 [id number] SCOTT SORTO Completed: Technologist: Resulted: 05/02/2024 23:27 AT 05/02/2024 23:36 EXAMINATION: XR CHEST PORTABLE OR 1V CLINICAL HISTORY: Reason for Chest: Pneumonia Add'l Info: TECHNIQUE: 1 view of the chest . One image. COMPARISON: None FINDINGS: Trachea, mainstem bronchi, cardiomediastinal silhouette, brendan, and pulmonary vascular markings are within normal limits. Low lung volumes bronchovascular crowding no pulmonary consolidation, pleural effusion or pneumothorax. Partially visualized cervical spine fusion hardware. Degenerative changes in the spine and bilateral AC joints. Remodeling of the left distal clavicle, suggestive of remote injury. Normal upper abdomen. IMPRESSION: 1. Low lung volumes with bronchovascular crowding. 2. No acute findings. Thank you for letting us participate in the care of this patient. If you are a health care provider and have any questions regarding this report, please contact the number below. For patients who have questions please contact the health foster care case manager that requested your imaging first. Social History Type Status Start Date End Date Code Code Syst em Smoking History Never smoker (Never Smoked) 894451450 SNOMED CT Sex Male Vital Signs Vital Sign Value Unit Comanche Value Comanche Unit Date/Time Recent/Initial? Code Code System Body Mass Index 26.61 kg/m2 05/02/2024 22:49 Initial 48134 -5 LOINC Systolic Blood Pressure 133 mm[Hg] 05/03/2024 06:00 Most Recent 8480- 6 LOINC Diastolic Blood Pressure 76 mm[Hg] 05/03/2024 06:00 Most Recent 8462- 4 LOINC Systolic Blood Pressure 146 mm[Hg] 05/02/2024 22:49 Initial 8480- 6 LOINC Diastolic Blood Pressure 83 mm[Hg] 05/02/2024 22:49 Initial 8462- 4 LOINC Body Surface Area 1.95 m2 05/02/2024 22:49 Initial 3140- 1 LOINC Height 172.720 0 cm 68.00 in 05/02/2024 22:49 Initial 8302- 2 LOINC O2 Saturation 97 % 2023 06:00 Most Recent 91881 -5 LOINC O2 Saturation 98 % 2023 22:49 Initial 34294 -5 LOINC Pulse 77.0 /min 05/03/2024 06:00 Most Recent 8867- 4 LOINC Pulse 94.0 /min 05/02/2024 22:49 Initial 8867- 4 LOINC Respiration 16 /min 05/03/20 06:00 Most Recent 9279- 1 LOINC Respiration 16 /min 05/02/20 22:49 Initial 9279- 1 LOINC Temperature 37.1 Ana 98.8 F 05/02/20 22:49 Initial 8310- 5 LOINC Weight 79.38 kg 175.00 lbs 05/02/2024 22:49 Initial 15620 -7 LOINC Hospital Discharge Instructions Should you have any questions prior to discharge, please contact a member of your healthcare team. If you have left the hospital and have any questions, please contact your primary care physician. Reason For Referral No Data Found Procedures Procedure Name Date Status Code Code Syste m History of cervical spine surgery completed 42 [id number] SNOMEDCT History of thoracic spine surgery completed 42 8477471 SNOMEDCT Problems Problem Start Date Resolved Date Status Code Code System HYPERTENSION 05/03/2024 resolved 39157523 SNOMED -CT TYPE 2 DIABETES 05/03/2024 resolved 19312865 SNO MED-CT LBBB 05/03/2024 resolved 38813127 SNOMED-CT Allergies and Adverse Reactions Allergy Substance Reaction Severity Start Date Concern Status Co de Code System CODEINE Active 7170 RxNorm Plan of Treatment No Data Found Encounters Encounter Diagnosis Start Date Code Code Sys tem Type 2 diabetes mellitus with hyperglycemia 05/02/2024 SNOMED-CT Personal Care Team Section Performer Name Performer Role Active Date Inactive Da te
--- NOTE | 2024-11-24 08:04 | ECG_ITS ---
Test Reason : R/O QTC PROLONGATION Blood Pressure : */* mmHG Vent. Rate : 89 BPM Atrial Rate : 89 BPM P-R Int : 142 ms QRS Dur : 154 ms QT Int : 406 ms P-R-T Axes : 43 18 107 degrees QTcB Int : 493 ms Normal sinus rhythm Left bundle branch block Abnormal ECG When compared with ECG of 31-Dec-2023 17:00, No significant change was found Referred By: Sarah Beth Castro Electronically Signed By: ANNIE HINKLE MD
[2024-11-24 08:21] LABS: MANUAL DIFF FLAG NO
[2024-11-24 08:30] LABS: Basophils Percent Auto 0.4 % (0-2); Eosinophils Absolute Auto 0.1 X10*3/uL (0.0-0.4); Eosinophils Percent Auto 1.2 % (0-4); Hemoglobin 13.9 g/dl (14.0-18.0); Imm Gran Abs Auto 0.03 X10*3/uL (0.00-0.03); Imm Gran Pct Auto 0.4 % (0.0-0.4); Lymphocytes Absolute Auto 1.3 X10*3/uL (1.2-4.9); Lymphocytes Percent Auto 17.5 % (20-40); Mean Corpuscular HGB Conc 31.6 g/dl (31.0-36.0); Mean Corpuscular Hemoglobin 26.2 pg (27.0-33.0); Mean Platelet Volume 9.7 fL (9.4-12.4); Monocytes Absolute Auto 0.7 X10*3/uL (0.1-1.2); Monocytes Percent Auto 9.7 % (2-11); Neutrophils Absolute Auto 5.2 x10*3/uL (2.0-8.3); Neutrophils Percent Auto 70.8 % (45-73); Platelet Count 208 X10*3/uL (160-400); Red Cell Distribution Width 17.2 % (11.0-16.0); White Blood Count 7.4 X10*3/uL (4.8-10.8)
[2024-11-24 09:25] LABS: Estimated Average Glucose 283 mg/dL; Hemoglobin A1C 365.1313 umol/L; Hemoglobin A1c % 11.5 % (<6.0); Total Hemoglobin (HGBA1C) 3574.3959 umol/L
[2024-11-24 09:27] LABS: Erythrocyte Sedimentation Rate 23 MM/HR (0-15)
[2024-11-24 09:39] LABS: Alanine Aminotransferase 11 U/L (0-40); Albumin Level 4.2 g/dL (3.5-5.0); Alkaline Phosphatase 100 U/L (39-117); Anion Gap 15 (12-20); Aspartate Amino Transferase 18 U/L (5-37); Bilirubin Total 0.3 mg/dL (0.0-1.0); Blood Urea Nitrogen 19 mg/dL (9-16); Calcium 9.9 mg/dL (8.4-10.2); Carbon Dioxide 27 mmol/L (22-29); Chloride 107 mmol/L (96-108); Cholesterol 126 mg/dL (<200); Estimated Glomerular Filt Rate > 60; Free T4 (Free Thyroxine) 1.05 ng/dL (0.71-1.85); Glucose Fasting 189 mg/dL (60-99); HDL Cholesterol 49 mg/dL (>40); LDL Cholesterol Calculated 62 mg/dL (<100); Magnesium 1.7 mg/dL (1.6-2.6); Potassium 4.9 mmol/L (3.3-5.1); Sodium 144 mmol/L (135-145); Thyroid Stimulating Hormone 0.88 uIU/mL (0.32-4.0); Total Protein 7.4 g/dL (6.5-8.0); Triglycerides 75 mg/dL (<150); Vitamin D 25-OH Total 29.4 ng/mL (>30)
[2024-11-24 09:41] LABS: Folate 9.6 ng/mL (> or = 4.0); Vitamin B12 349 pg/mL (200-900)
[2024-11-24 09:56] LABS: Uric Acid 5.4 mg/dL (3.4-7.0)
[2024-11-24 10:57] LABS: Cortisol Random 13.6 ug/dL
[2024-11-25 17:03] LABS: Homocysteine 9.6 umol/L (<11.4)
[2024-11-29 02:38] LABS: Adrenocorticotropic Hormone 13 pg/mL (6-50)
[2024-11-29 08:39] LABS: Methylmalonic Acid 183 nmol/L (55-335)
[2024-11-30 16:04] LABS: Vitamin B1 9 nmol/L (8-30)
== END 2024-11-24 07:58 | disposition home or self-care (01) ==
LOC: HO.LAB 07:57
PROVIDERS: PCP Family Medicine; Visit Provider Psychiatry & Neurology Psychiatry
DX: F34.1 Dysthymic disorder (principal); E24.9 Cushing's syndrome, unspecified; Z13.1 Encounter for screening for diabetes mellitus; Z13.6 Encounter for screening for cardiovascular disorders
CPT/HCPCS: 36415; 80053; 80061; 82024; 82306; 82533; 82607; 82746; 83036; 83090; 83735; 83921; 84425; 84439; 84443; 84550; 85025; 85652; 93005

== ENCOUNTER → 2024-11-24 08:04 | Outpatient (BNV) | payer OTHER, SELFPAY | PROVIDERS: PCP Family Medicine; Visit Provider Internal Medicine Cardiovascular Disease | DX: I44.7 Left bundle-branch block, unspecified (principal) | CPT/HCPCS: 93010 ==

== ENCOUNTER 2024-11-24 09:21 | Emergency (ER) | payer OTHER, SELFPAY ==
--- NOTE | ~2024-11-24 | XR_ITS ---
EXAMINATION: XR FOOT, LEFT CLINICAL INFORMATION: foreign body? ? osteo COMPARISON: None available. TECHNIQUE: AP, lateral, and oblique views of the left foot. FINDINGS: No fracture, dislocation, or suspicious bone lesion. Normal bone mineralization. No permeative bony change change or erosion. Normal alignment. Joint spaces are preserved. No significant arthropathy. There is enthesophyte at the base of the fifth metatarsal. 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 Soft tissues are unremarkable. No soft tissue gas. There are diffuse vascular calcifications. XR/XR foot LT min 3V IMPRESSION: 1. No acute findings of the left foot. No radiographic evidence of foreign body, subcutaneous gas, or osteomyelitis. Electronically signed by: Josiah Day MD 11/24/2024 10:07 AM EDT
[2024-11-24 09:36] VITALS: BP 133/76; PULSE 91; RESP 17; TEMP 37.4; O2SAT 98; BMI 27.4
[2024-11-24 09:39] VITALS: BP 133/76; PULSE 91; RESP 17; TEMP 37.4; O2SAT 98
[2024-11-24 09:40] LABS: Glucose, Whole Blood 162 mg/dL (60-115)
--- NOTE | 2024-11-24 09:49 | ED.GENADULT ---
HPI - General Adult General Chief complaint: Extremity Injury, Lower Stated complaint: foot infection Time Seen by Provider: 11/24/24 09:42 Source: patient Mode of arrival: ambulatory Limitations: no limitations History of Present Illness HPI narrative: This is 58 years old male presented to the emergency department complaining of left foot redness over the weekend is step over a elinor and developed the redness of the forefoot. Denies any fever or chills he has a history of diabetes Onset (ago): day(s) (3) Location: lower extremity (left foot) Radiation: non-radiation Severity: mild Quality: burning Pain Consistency: constant Relieving factors: none Related Data Home Medications ?Medication ?Instructions ?Recorded ?Confirmed sitagliptin phosphate 50 mg tablet 50 mg PO DAILY 11/15/22 11/16/24 (Juluvia) aspirin 81 mg capsule 81 mg PO DAILY 11/16/24 11/16/24 atorvastatin 80 mg tablet 80 mg PO DAILY 11/16/24 11/16/24 clopidogrel 75 mg tablet 75 mg PO DAILY 11/16/24 11/16/24 doxycycline hyclate 100 mg capsule 100 mg PO BID 11/16/24 11/16/24 duloxetine 20 mg capsule,delayed 20 mg PO BEDTIME 11/16/24 11/16/24 release gabapentin 400 mg capsule 400 mg PO BEDTIME 11/16/24 11/16/24 insulin glargine 100 unit/mL (3 14 unit subcut QPM 11/16/24 11/16/24 mL) subcutaneous pen (Lantus Solostar U-100 Insulin) metformin 500 mg tablet 500 mg PO BID 11/16/24 11/16/24 valsartan 320 mg tablet 320 mg PO DAILY 11/16/24 11/16/24 Previous Rx's ?Medication ?Instructions ?Recorded bupropion HCl 300 mg 24 hr tablet, 1 tab PO DAILY #30 tabs 03/14/22 extended release amlodipine 10 mg tablet 10 mg PO DAILY #30 tabs 11/22/22 aripiprazole 2 mg tablet 2 mg PO BEDTIME #30 tabs 11/12/24 duloxetine 30 mg capsule,delayed 30 mg PO BID #30 caps 11/19/24 release aripiprazole 5 mg tablet 5 mg PO DAILY as directed #30 tabs 11/23/24 cephalexin 500 mg capsule 500 mg PO Q8H 7 days #21 caps 11/24/24 levofloxacin 500 mg tablet 500 mg PO DAILY 7 days #7 tabs 11/24/24 Allergies Allergy/AdvReac Type Severity Reaction Status Date / Time codeine [CODEINE] Allergy Unknown delayed Verified 11/24/24 09:38 responses 02/24/17 Review of Systems Constitutional: Constitutional: Reports no additional constitutional complaints Cardiovascular: Cardiovascular: Reports no additional cardiovascular complaints Integumentary/Breasts: Skin/Breast: Reports system reviewed and no additional complaints, except as docu PMFSH Past Medical History Attestation statement: The following information was validated with the patient. Medical History History of ETT Thyroid nodule Orthostatic hypertension Degenerative joint disease Cystic disease of kidney Bacteremia Diabetic neuropathy Coronary thrombosis Bacterial pneumonia Hypercholesteremia Major depressive disorder, recurrent severe without psychotic features ILD (interstitial lung disease) Heart disease, unspecified Preop cardiovascular exam Osteomyelitis Diabetic foot ulcer LBBB (left bundle branch block) Type 2 diabetes mellitus with foot ulcer HTN (hypertension) Suicidal ideation Depression Surgical History H/O cardiac catheterization Hx of fusion of cervical spine S/P spinal surgery H/O: vasectomy Family History Family History Father Neck malignant neoplasm Social History Social History Household Members: Spouse Housing: House Do you presently have visiting nurse or other home services: No Unable to assess alcohol history related to: Unknown Alcohol intake: never Patient Tobacco Use Status: Never used Tobacco Smoked in Last 30 Days: No e-Cigarette/Vaping Use: Never Used Second Hand Smoke Exposure: No Use of substances other than those prescribed or required for medical reasons: No Substance Use Type: Marijuana Advance Directives: Yes Advance Directives on File: Yes Advance Directives Date on File: 04/11/22 Do you have a plan to hurt others: No Plan service: No Current occupational status: employed Sexual orientation: Straight/Heterosexual Physical Exam ED Vital Signs: Vital Signs - 24 hr 11/24/24 09:36 11/24/24 09:39 11/24/24 10:35 Temperature 99.4 F 99.4 F 98.5 F Pulse Rate 91 91 92 Respiratory Rate 17 17 16 Blood Pressure 133/76 133/76 120/64 Pulse Oximetry 98 98 98 Oxygen Delivery Method Room Air Room Air Room Air 11/24/24 12:30 11/24/24 14:00 Temperature 97.5 F 98.2 F Pulse Rate 82 83 Respiratory Rate 16 16 Blood Pressure 125/69 135/72 Pulse Oximetry 94 95 Oxygen Delivery Method Room Air Room Air BMI result Body Mass Index 27.4 No acute distress looks well Const General: cooperative Nutritional Appearance: well nourished Orientation/consciousness: patient oriented x3 Limitations: no limitations HENMT Head: Yes normal to inspection Ears: hearing grossly normal bilaterally General nose exam: Normal external nose present Face and sinus: Yes normal facial exam Mouth: Normal oral and palatal mucosa present Teeth and gingiva: dentition normal Throat: Yes posterior oropharynx normal Neck Neck: Yes normal visual inspection Chest Chest palpation & inspection: normal inspection of the chest Resp Effort & Inspection: normal respiratory effort Auscultation: clear to auscultation bilaterally Cardio Jugular venous distension: no JVD Rate: regular rate Rhythm: regular rhythm GI Inspection: Yes normal to inspection Palpation (GI): Soft to palpation and not firm Skin Other: Redness in the dorsal aspect of the left foot General skin exam: elasticity normal Lesions: no lesions Neuro General: patient oriented x3 Extrem Other: As above redness in the dorsal aspect of the for Course Reevaluation(s) Reevaluation #1: Remained stable afebrile normotensive received IV antibiotic vanco and cefepime I think it is reasonable to discharge him on p.o. antibiotic patient is comfortable with that Time: 15:39 Medications Administered Discontinued Medications Generic Name Dose Route Start Last Admin Trade Name Freq PRN Reason Stop Dose Admin Cefepime HCl 2 gm in 50 mls @ 100 mls/hr 11/24/24 09:48 11/24/24 10:33 Maxipime IV 11/24/24 10:17 Infused ONCE ONE Infusion Vancomycin HCl 2,000 mg in 500 mls @ 250 mls/hr 11/24/24 10:00 11/24/24 12:40 Vancomycin/Ns IV 11/24/24 11:59 Infused ONCE ONE Infusion Medical Decision Making Medical Decision Making [facility] Narrative: Patient is here with left foot redness after injuring with the elinor history of diabetes we will check blood work administer antibiotic 15:39 antibiotic IV administer vanco and cefepin x-ray negative, lactic 2, ESR 25. I discussed with the patient option I think it is reasonable to attempt a course of outpatient antibiotic, he is comfortable with that we will give him Keflex and also Pseudomonas coverage with Levaquin. Patient will return if worse if fever if increasing redness. I realize that he has diabetes but the patient is very comfortable with this plan if fail outpatient antibiotic will need admission for IV antibiotics. I placed a picture in the chart so is patient come back we will be able to compare his foot finding Differential Diagnosis Differential Diagnoses: The differential diagnosis associated with the presentation includes Cellulitis/osteomyelitis/foreign body retention Lab Data MDM Lab Attestation statement: I reviewed the patient's lab results. Labs: Lab Results 11/24/24 11/24/24 Range/Units 09:37 10:05 ESR 25 H (0-15) MM/HR POC Glucose 162 H (60-115) mg/dL Lactic Acid 2.0 (0.5-2.0) mmol/L C-Reactive Protein 3.22 H (< or = 0.50) mg/dL Independent Interpretation I performed an independent interpretation of an: Plain X-Ray Interpretation: No acute disease Radiology Impression Discussion of test interpretation with radiology: I have reviewed the radiologist's reading. Discharge Plan Discharge Clinical Impression: Cellulitis Qualifiers: Site of cellulitis: extremity Site of cellulitis of extremity: lower extremity Laterality: left Qualified Code(s): L03.116 - Cellulitis of left lower limb Patient Disposition: Home, Self-Care Instructions: Cellulitis (ED) Additional Instructions: Follow-up with your primary care physician return to the emergency room if you have a fever or chills worsening of the redness keep your foot elevated Prescriptions: New levofloxacin 500 mg tablet 500 mg PO DAILY 7 Days Qty: 7 0RF cephalexin 500 mg capsule 500 mg PO Q8H 7 Days Qty: 21 0RF No Action bupropion HCl 300 mg tablet extended release 24 hr 1 tab PO DAILY Qty: 30 0RF Patient Comments: Patient stated he restarted his medications over a week ago. He brought in his pill bottles to show me what he is currently taking. Rx Instructions: Last filled February 20, 2024 Januvia 50 mg Tablet 50 mg PO DAILY Patient Comments: Patient stated he restarted his medications over a week ago. He brought in his pill bottles to show me what he is currently taking. Rx Instructions: Last filled 03/29/24. amlodipine 10 mg Tablet 10 mg PO DAILY Qty: 30 0RF Protocol: Hold for SBP< HOLD for SBP < : 90 Patient Comments: Patient stated he restarted his medications over a week ago. He brought in his pill bottles to show me what he is currently taking. Rx Instructions: Last filled 02/20/24. aripiprazole 2 mg tablet 2 mg PO BEDTIME Qty: 30 0RF metformin 500 mg Tablet 500 mg PO BID Rx Instructions: Last filled April 04, 2024. With meals gabapentin 400 mg Capsule 400 mg PO BEDTIME Patient Comments: Patient stated he restarted his medications over a week ago. He brought in his pill bottles to show me what he is currently taking. Rx Instructions: Last filled 10/26/24 clopidogrel 75 mg Tablet 75 mg PO DAILY Patient Comments: Patient stated he restarted his medications over a week ago. He brought in his pill bottles to show me what he is currently taking. Rx Instructions: Last filled 10/18/24 valsartan 320 mg Tablet 320 mg PO DAILY Patient Comments: Patient stated he restarted his medications over a week ago. He brought in his pill bottles to show me what he is currently taking. Rx Instructions: Last filled March 2024. aspirin 81 mg Capsule 81 mg PO DAILY Patient Comments: Patient stated he restarted his medications over a week ago. He brought in his pill bottles to show me what he is currently taking. Rx Instructions: Last filled 10/18/24 atorvastatin 80 mg Tablet 80 mg PO DAILY Rx Instructions: Last filled 02/19/24 #90 doxycycline hyclate 100 mg Capsule 100 mg PO BID Rx Instructions: Last filled 09/28/24 duloxetine 20 mg Capsule,Delayed Release(Dr/Ec) 20 mg PO BEDTIME Patient Comments: Patient stated he restarted his medications over a week ago. He brought in his pill bottles to show me what he is currently taking. Rx Instructions: Last filled 02/06/24. insulin glargine [Lantus Solostar U-100 Insulin] 100 unit/mL (3 mL) Insulin Pen 14 unit SUBCUT QPM Patient Comments: Patient stated he restarted his medications over a week ago. He brought in his pill bottles to show me what he is currently taking. Rx Instructions: Last filled 09/28/24. 90 day supply. duloxetine 30 mg capsule,delayed release(DR/EC) 30 mg PO BID Qty: 30 0RF aripiprazole 5 mg tablet 5 mg PO DAILY Qty: 30 0RF Print Language: Faroese
[2024-11-24] MEDS: cefEPime HCl/D5W 2 GM/50 ML PIGGYBACK IV (10:10)
[2024-11-24 10:27] LABS: C Reactive Protein 3.22 mg/dL (< or = 0.50)
[2024-11-24] MEDS: vancomycin/NS 2,000 MG/500 ML PLAST..BAG 250 MG IV (10:34)
[2024-11-24 10:35] VITALS: BP 120/64; PULSE 92; RESP 16; TEMP 36.9; O2SAT 98
[2024-11-24 11:22] LABS: Erythrocyte Sedimentation Rate 25 MM/HR (0-15)
--- OUTSIDE RECORDS SUMMARY | 2024-11-24 11:43 | XMS_ITS | Clinical Summary ---
Author Organization [facility] it Address [address] [place] [address] Care Team Providers Care Carpenters Name Role Phone Chong Rojas MD Primary Care Provider [phone] Medical History Medical History Date Comments Right [...] age to complete this topic Care Teams Carpenters Relationship Specialty Start Date End Date Chong Rojas MD [address] [place] [address] [address] [facility] [place] [facility] - General Internal Medicine 08/10/15
--- OUTSIDE RECORDS SUMMARY | 2024-11-24 11:43 | XMS_ITS ---
Author Organization Unknown Address [address] [place] [phone] Phone Care Team Providers Care Photographic Double Name Role Phone BEATRIZ PORRAS Jewel Registered Nurse Unavailable MALCOLM WATERMAN Registered Nurse Unavailab kurtis SOLORZANO Registered Nurse Unavailable NIKOLAI Bai Attending Unavailable UNLISTED PROVIDER - REQUESTED Xhandoff Un available Results NOVA GLUCOSE FINGER HEEL CAP ILLARY - Collect Date/Time: 05/03/2024 05:28 [facility] ID: [id number] [address] [place] [address], [id number] LOINC: 81708-7 Test Value Unit Reference Range Code Code System Flag GLUCOSE CAP 169 mg/dL L=70 H=116 12065-6 LOINC H TROPONIN HIGH SENSITIVITY* - Collect Date/Time: 05/03/2024 04:50 [facility] ID: [id number] [address] [place] [address], 5661 LOINC: 37443-1 Test Value Unit Reference Range Code Code System Flag TROPONIN HS 7.5 pg/mL L=0.0 H=60.4 Specimen seq. RANDOM BNP (PRO-B NATRIURETIC PEPTI DE) - Collect Date/Time: 05/03/2024 04:50 [facility] ID: [id number] [address] [place] [address], [address] LOINC: 73495-2 Test Value Unit Reference Range Code Code System Flag NT-proBNP 206.0 pg/mL L=0.0 H=125 65967-9 LOINC H NOVA GLUCOSE FINGER HEEL CAP ILLARY - Collect Date/Time: 05/03/2024 03:30 [facility] ID: [id number] [address] [place], [place], [id number] LOINC: 22399-4 Test Value Unit Reference Range Code Code System Flag GLUCOSE CAP 252 mg/dL L=70 H=116 53218-1 LOINC H NOVA GLUCOSE FINGER HEEL CAP ILLARY - Collect Date/Time: 05/03/2024 02:03 [facility] ID: [id number] [address] [place], [place], [id number] LOINC: 89231-0 Test Value Unit Reference Range Code Code System Flag GLUCOSE CAP 280 mg/dL L=70 H=116 47610-2 LOINC H NOVA GLUCOSE FINGER HEEL CAP ILLARY - Collect Date/Time: 05/03/2024 00:35 [facility] ID: [id number] [address] [place] [address], [id number] LOINC: 24674-7 Test Value Unit Reference Range Code Code System Flag GLUCOSE CAP 308 mg/dL L=70 H=116 94590-8 LOINC H URINALYSIS ROUTINE* - Colle t Date/Time: 05/02/2024 23:40 [facility] ID: [id number] [address] [place] [address], [address] LOINC: Test Value Unit Reference Range Code Code System Flag COLLECTION MODE: VOID 93915-8 LOINC Color YELLOW yellow 5778-6 LOINC Appearance CLEAR clear 5767-9 LOINC Glucose urine >=1000 negative mg/dl 69041-3 LOINC A Bilirubin NEGATIVE negative 5770-3 LOINC Ketones NEGATIVE negative mg/dl 2514-8 LOINC Spec gravity 1.010 1.003 - 1.030 5811-5 LOINC pH urine 5.5 5.0 - 7.0 2756-5 LOINC Protein NEGATIVE negative mg/dl 95386-9 LOINC Urobilinogen 0.2 <or= 1 EU/dl 87160-2 LOINC Nitrite NEGATIVE negative 5802-4 LOINC Blood NEGATIVE negative 5794-3 LOINC Leukocytes NEGATIVE negative 07761-2 LOINC MICROSCOPIC* NOT INDICAT MAGNESIUM SERUM* - Collect D ate/Time: 05/02/2024 23:20 [facility] ID: [id number] [address] [place], [place], [address] LOINC: 72628-3 Test Value Unit Reference Range Code Code System Flag MAGNESIUM 1.7 mg/dL L=1.8 H=2.4 90060-9 LOINC L LACTIC ACID - Collect Date/T marley: 05/02/2024 23:20 [facility] ID: [id number] [address] [place] [address], [address] LOINC: Test Value Unit Reference Range Code Code System Flag LACTIC ACID 2.2 mmol/L L=0.7 H=2.1 73421-7 LOINC H COMPREHENSIVE METABOLIC PANE L (CMP) - Collect Date/Time: 05/02/2024 23:20 [facility] ID: [id number] [address] [place] [address], [address] LOINC: 13133-2 Test Value Unit Reference Range Code Code [...] H=34 2028-9 LOINC ANION GAP 6.7 mmol/L 11455-0 LOINC CALCIUM SERUM 8.2 mg/dL L=8.2 H=10.2 71528-2 LOINC BILIRUBIN TOTAL 0.2 mg/dL L=0.0 H=1.3 1975-2 LOINC ALK. PHOS. 98 U/L L=46 H=116 6768-6 LOINC SGOT (AST) 10 U/L L=15 H=37 1920-8 LOINC L SGPT (ALT) 11 U/L L=12 H=78 1742-6 LOINC L TOTAL PROTEIN 6.0 gm/dL L=6.0 H=8.0 2885-2 LOINC ALBUMIN 2.6 gm/dL L=3.4 H=5.0 1751-7 LOINC L AGE 58 years eGFR (non-Afr.Amer.) 76 mL/min 49692-0 LOINC eGFR (Afr-Romanian) 91 mL/min 82453-3 LOINC CBC W/ DIFFERENTIAL* - Colle ct Date/Time: 05/02/2024 23:20 [facility] ID: [id number] [address] [place], [place], [address] LOINC: 98234-4 Test Value Unit Reference Range Code Code System Flag WBC 6.38 th/cmm L=5.00 H=10.00 6690-2 LOINC NEUT % 61.9 % L=40.0 H=80.0 LYMPH % 25.4 % L=10.0 H=50.0 MONO % 9.6 % L=2.0 H=12.0 70739-2 LOINC EOS % 2.0 % L=0.0 H=8.0 BASO % 0.5 % L=0.0 H=3.0 IG % 0.6 % L=0.0 H=1.1 2514-8 LOINC NRBC % 0.0 % L=0.0 H=0.0 15433-6 LOINC NEUT abs count 4.0 th/cmm L=1.6 H=8.4 751-8 LOINC LYMPH abs count 1.6 th/cmm L=1.5 H=4.0 731-0 LOINC MONO abs count 0.6 th/cmm L=0.2 H=1.0 742-7 LOINC EOS abs count 0.1 th/cmm L=0.0 H=0.5 711-2 LOINC BASO abs count 0.0 th/cmm L=0.0 H=0.2 704-7 LOINC IG abs count 0.0 th/cmm L=0.0 H=0.1 29841-4 LOINC NRBC abs count 0.0 mil/cmm L=0.0 H=0.0 73452-0 LOINC RBC 4.17 mil/cmm L=4.30 H=6.20 789-8 [...] CAP ILLARY - Collect Date/Time: 05/02/2024 23:00 [facility] ID: [id number] [address] [place], [place], [id number] LOINC: 06966-2 Test Value Unit Reference Range Code Code System Flag GLUCOSE CAP 318 mg/dL L=70 H=116 65980-2 LOINC H XR CHEST PORTABLE OR 1V - Co mpleted: 05/02/2024 23:30 LOINC: [facility] RADIOLOGY [place], [place] [address] RADIOLOGY [facility]OM[facility] [employer] CO[facility] REPORT Patient Name: BELLE PIERRE MRN: Sex: : Age: [id number] M 1965 58 Account: Accession: Admit: StayType: [id number] 05/02/2024 E Ordered: Order ID: Submitted: Ordering Provider: 05/02/2024 23:14 [id number] SCOTT SORTO Completed: Technologist: Resulted: 05/02/2024 23:27 [...] who have questions please contact the health home health aide caregiver that requested your imaging first. Social History Type Status Start Date End Date Code Code Syst em Smoking History Never smoker (Never Smoked) 073541554 SNOMED CT Sex Male Vital Signs Vital Sign Value Unit [place] Value [place] Unit Date/Time Recent/Initial? Code Code System Body Mass Index 26.61 kg/m2 05/02/2024 22:49 Initial 89396 -5 LOINC Systolic Blood Pressure 133 mm[Hg] [...] Saturation 97 % 2023 06:00 Most Recent 49661 -5 LOINC O2 Saturation 98 % 2023 22:49 Initial 51488 -5 LOINC Pulse 77.0 /min 05/03/2024 06:00 Most Recent 8867- 4 LOINC Pulse 94.0 /min 05/02/2024 22:49 Initial 8867- 4 LOINC Respiration 16 /min 05/03/20 06:00 Most Recent 9279- 1 LOINC Respiration 16 /min 05/02/20 22:49 Initial 9279- 1 LOINC Temperature 37.1 Ana 98.8 F 05/02/20 22:49 Initial 8310- 5 LOINC Weight 79.38 kg 175.00 lbs 05/02/2024 22:49 Initial 85465 -7 LOINC Hospital Discharge Instructions Should you have any questions prior to discharge, please contact a member of your healthcare team. If you have left the hospital and have any questions, please contact your primary care physician. Reason For Referral No Data Found Procedures Procedure Name Date Status Code Code Syste m History of cervical spine surgery completed 42 0788454 SNOMEDCT History of thoracic spine surgery completed 42 9336157 SNOMEDCT Problems Problem Start Date Resolved Date Status Code Code System HYPERTENSION 05/03/2024 resolved 42948143 SNOMED -CT TYPE 2 DIABETES 05/03/2024 resolved 38885284 SNO MED-CT LBBB 05/03/2024 resolved 12842611 SNOMED-CT Allergies and Adverse Reactions Allergy Substance Reaction Severity Start Date Concern Status Co de Code System CODEINE Active 2090 RxNorm Plan of Treatment No Data Found Encounters Encounter Diagnosis Start Date Code Code Sys tem Type 2 diabetes mellitus with hyperglycemia 05/02/2024 SNOMED-CT Personal Care Team Section Performer Name Performer Role Active Date Inactive Da te
--- OUTSIDE RECORDS SUMMARY | 2024-11-24 11:43 | XMS_ITS | Clinical Summary ---
Author Organization [facility] Address [address] [place] [address] Care Team Providers Care Glue Plant Operator Name Role Phone Crystal DENNIS MD, Chong Jett Primary Care Provider [phone] Allergies Active Allergy Reactions Criticality Noted Date [...] age to complete this topic Care Teams Glue Plant Operator Relationship Specialty Start Date End Date Chong Rojas II, MD [address] [place] [address] PCP - General Internal Medicine 08/10/15
--- OUTSIDE RECORDS SUMMARY | 2024-11-24 11:43 | XMS_ITS ---
Author Organization [facility] Care Team Providers Care Manager Project Name Role Phone Nuvia Vanegas Unavailable Unavailable Kel Oscar Unavailable Unavailable Tarah Garcia Unavailable Unavailable Allergies and adverse reactions Code CodeSystem Substance Reaction Severity StartDate Concern Status 2670 RXNORM Codeine Unknown 09/23/2023 active Care Team Name Role Address Phone Organization Dates Kel Oscar PCP [address], [address], [place] (Office): : [facility] 09/23/2023 - 10/02/2023 Nuvia Vanegas [address], [address], [facility] 09/23/2023 - 10/02/2023 Tarah Garcia [address] [facility] [address] [place] [address], [address], [place] (Office): [facility] 09/23/2023 - 10/02/2023 Goals Section Description Status Target Date I plan to discharge to: Spec kwesi- To community alone, To Community with Family, NURSING HOME/PCH, LTC Placement, Other- Undecided at current time. [...] created date: 09/28/2023 administered date: 05/26/2023 (COVID-19) TestPlant Original Primary Dose Vaccine 2 of 2 completed SARS-COV-2 (COVID-19) vaccine, mRNA, spike protein, LNP, preservative free, 30 mcg/0.3mL dose 208 CVX created date: 09/28/2023 administered date: 10/22/2020 (COVID-19) [employer]Plant Original Primary Dose Vaccine 1 of 2 [...] CodeSystem Concern Status 1 BORDERLINE PERSONALITY DISORDER 09/23/2023200030034420 SNOMED CT active 2 CHEST PAIN, UNSPECIFIED 09/23/[address] active 3 ESSENTIAL (PRIMARY) HYPERTENSION 09/23/[address] active 4 MAJOR DEPRESSIVE DISORDER, SINGLE EPISODE, UNSPECIFIED 09/23/[address] active 5 MEDULLARY CYSTIC KIDNEY 09/23/[address] active 6 MUSCLE WASTING AND ATROPHY, NOT ELSEWHERE CLASSIFIED, MULTIPLE SITES 09/23/[address] active 7 OTHER LACK OF COORDINATION 09/23/[address] active 8 OTHER SPECIFIED ABNORMALITIES OF PLASMA PROTEINS 09/23/[address] active 9 PURE HYPERCHOLESTEROLEMI A, UNSPECIFIED 09/23/[address] active 10 TYPE 2 DIABETES MELLITUS WITHOUT COMPLICATIONS 09/23/[address] active 11 UNSPECIFIED LACK OF COORDINATION 09/23/[address] active 12 UNSPECIFIED OSTEOARTHRITIS, UNSPECIFIED SITE 09/23/[address] active Reason for Referral No Reasons for Referral Entered Social History Social History Observation Description Start Date End Date Code Code System Current Smoking Status Tobacco smoking consumption unknown 449029920 SNOMED CT Sex Assigned At Male 1965 81942-4 [facility] Gender Identity Vital Signs Code Code System Vitals Name Values and Units Timing Information 2339-0 [facility] Blood Sugar Ctfhq=542.0 Units=mg/dL 10/02/2023 9279-1 [facility] Respiratory Rate Value=20.0 Units=/m in 10/02/2023 8462-4 [facility] Blood Pressure-Diastolic Value=63 Un its=mmHg 10/02/2023 8480-6 [facility] Blood Pressure-Systolic Mphbj=451 Un its=mmHg 10/02/2023 8310-5 [facility] Body Temperature Value=98.5 Units=?? F 10/02/2023 8867-4 [facility] Heart rate Lafwu=663.0 Units=/min 10/02/2023 10440-8 [facility] O2 % BldC Oximetry Value=94.0 Units= % 10/02/2023 60806-8 [facility] Pain Level Value=0.0 10/01/2023 83078-1 [facility] Weight Npvxi=731.0 Units=Lbs 8302-2 [facility] Height Value=71.0 Units=Inches 09/23/2023
[2024-11-24 12:30] VITALS: BP 125/69; PULSE 82; RESP 16; TEMP 36.4; O2SAT 94
[2024-11-24 14:00] VITALS: BP 135/72; PULSE 83; RESP 16; TEMP 36.8; O2SAT 95
[2024-11-24 15:50] VITALS: BP 135/69; PULSE 80; RESP 16; TEMP 36.9; O2SAT 97
== END 2024-11-24 15:50 | disposition home or self-care (01) ==
PROVIDERS: Emergency Provider Emergency Medicine; PCP Family Medicine
DX: L03.116 Cellulitis of left lower limb (principal); M79.672 Pain in left foot; E11.9 Type 2 diabetes mellitus without complications; Z79.4 Long term (current) use of insulin; Z79.899 Other long term (current) drug therapy
CPT/HCPCS: 36415; 73630; 82947; 83605; 85652; 86140; 87040; 96365; 96366; 96367; 99284; J0692; J3370

== ENCOUNTER → 2024-11-24 09:47 | Outpatient (BNV) | payer OTHER, SELFPAY | PROVIDERS: Emergency Provider Emergency Medicine; PCP Family Medicine; Visit Provider Radiology Diagnostic Radiology | DX: S90.852A Superficial foreign body, left foot, initial encounter (principal) | CPT/HCPCS: 73630 ==

== ENCOUNTER 2024-11-25 10:00 | Outpatient (RCR) | payer OTHER, SELFPAY ==
[2024-11-12 10:56] VITALS: BMI 27.4
[2024-11-12 10:57] VITALS: BP 124/72; PULSE 84; TEMP 36.8
--- NOTE | 2024-11-12 12:02 | PC.ADMIT ---
Patient is a 58 year old male who self referred to [facility] secondary to increased depression and anxiety. Patient reports many stresses including the loss of his mother and father within a week of each other along with the loss of his aunt and dog. Patient reports he has not grieved the losses of his parents. Patient also has not been taking care of his health. He has diabetes and reports that he has not taken any his medications for the past two months including his psychiatric medications. He reports he recently restarted taking his medications this past week. He also reports his A1C is 13. Patient has not been taking his blood sugars and stated when he does take his blood sugars he only checks them in the morning. Patient also reports recent infection with bacterial pneumonia and was put on antibiotics. Unclear if patient has taken the antibiotics. He reports he has a f/u appointment with is PCP on 12/06/24 for a repeat X-ray. Patient also stated he has a callous on his foot for the past two years that has been bothering him. I advised him to review this with is PCP when he sees him in a few weeks. Patient also stated he has a cut on his R leg from working in the garage last week. I also advised patient to have his PCP look at his leg or go to urgent care if it appears infected. Patient is alert and oriented x4. He is calm and cooperative. He presented with depressed mood and affect. He denied SI, no HI. He was given a copy of his safety plan if needed. Medications updated with patient and patient's pharmacy. It is unclear what patient is taking at this time as he stated he restarted his medications this past week and has been using a pill organizer. Patient to bring in his prescription bottles to confirm what he has been taking. Medication and diabetes education provided.
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
--- NOTE | 2024-11-16 09:10 | PC.NURSE ---
Patient stated he restarted his medications over a week ago. He brought in his pill bottles to show me what he is currently taking. Patient reports he has been off his mediations for a few months. Dr. Castro is aware.
--- NOTE | 2024-11-18 15:00 | HO.PHP ---
Clients case was opened and reviewed in teams today.
--- NOTE | 2024-11-19 07:54 | HO.PHP ---
PHP staff member faxed a referral over to [facility] for OP therapy and is awaiting a phone call back with the appointment date and time.
--- NOTE | 2024-11-19 13:20 | HO.PHP ---
PHP staff member met with Juan Ramon after group three due to him expressing SI with a plan and without intent. PHP staff member explored what the SI thoughts are and plan. Juan Ramon informed the clinician that he has thoughts of he doesn't deserve to be here, not worthy to be here and receive support from others, and feels he is onlly good for giving his money. Juan Ramon stated that his plan is to take gabapentin. [facility] staff asked Juan Ramon what is stopping him from acting on that plan. Juan Ramon mentioned that he is afraid. PHP staff member safety planned with Juan Ramon on if he can ask his to take the medication so he is unable to act on this plan. Juan Ramon expressed that he is planning on doing that, even though it is going to worry her. PHP staff member suggested going to get evaluated but Juan Ramon did not feel that was necessary and he mentioned he does not want to go back inpatient. Juan Ramon said he also has no intent to act on this plan. Juan Ramon said if the thoughts increase, he will reach out to crisis. PHP staff member was receptive. PHP staff member informed the team of what Juan Ramon expressed, in which Dr. Castro is going to further assess.
--- NOTE | 2024-11-19 23:31 | HO.PHPPROGNO ---
Subjective Subjective Date of Service: 11/19/24 Reason For Visit: depression Interim History: Patient seen in group room a. He was found sitting by himself while his peers were in the kitchen. ?I am very toxic feel I do not deserve to be here . Feeling isolative on account of his depression like people would not be around him. Says it is hard to know what to do with himself ?I got no where to go, doc. My and I do not talk much?. He denies any acute issues or situations at home. He expresses feelings of guilt around ?damaging his family and his . He also says that his has a hard time understanding his mental health and apparently feels that he should be better by now . He admits to having some active suicidal ideation but was not forthcoming in regards to any specific plan. But clearly states he has no urge or intention to act on these thoughts and says in fact he would rather just feel better right now. Thus far he does not feel his medication is doing much he continues on duloxetine 20 mg, denies having any adverse effects on that or the Abilify 2 mg. He was open to medication changes and engaged in problem-solving and safety planning. He very clearly at least stated he is not interested and being in the hospital, states he has been in the hospital before many times and does not feel he is at a point where he needs to go in he assures me that ?I will know when I need to go in, I always get myself there. I do not need anybody to stick me in there . He is open to me reaching out to him this weekend to check in and also agrees to stay in the company of his family and children. He also notes that it is mother's day and will be busy. He is still trying to process the losses of his father mother aunt dog from earlier in the year and asks if I think this feeling that he is having currently maybe just compounded grief that he has not been able to process. Medication Compliance: Yes Side effects from medications: No Attending Groups: Yes Review of Systems Acute medical concerns: No Mental Status Exam Mental Status Exam Narrative: Alert, oriented, in no acute distress. Calm, cooperative, engaged. No psychomotor agitation or neurovegetative retardation. Eye contact maintained. Mood depressed, affect constricted, irritable edge. Speech normal. Thought process linear, coherent. Thought content related to stressors, transient hopelessness, denies SI or HI. No paranoia or delusional content elicited. No evidence of psychosis. Insight and judgment - fair but adequate. Diagnostics Vital Signs (24Hr): BMI result Body Mass Index 27.4 Assessment & Plan Assessment & Plan (1) Major depressive disorder, recurrent severe without psychotic features: Status: Acute Code(s): F33.2 - Major depressive disorder, recurrent severe without psychotic features (2) Pathological gambling: Status: Acute Code(s): F63.0 - Pathological gambling (3) ROBI (generalized anxiety disorder): Status: Acute Code(s): F41.1 - Generalized anxiety disorder Plan continue PHP continue Abilify 2-3 mg qd increase duloxetine to 30 mg BID continue other regular medications? Routine lab work ordered as indicated EKG, routine for baseline QTc for medication considerations as indicated UDS as indicated VS reviewed: afebrile, BP 124/72;?84 bpm Safety plan reviewed - will plan to check in with patient tomorrow 5pm. Patient understands he must be available for phone check in Continue to monitor Patient educated on: diagnosis and medication risk/benefits Informed Consent: understands Reason for contiued partial hosp. stay Substantial Risk for: harm to self, inability to function, rapid decompensation and med/psych decompensation Certification I certify that partial hospital treatment is medically necessary due to the symptoms and problems resulting from the patient's mental illness and the failure to treat the patient at the partial hospital level of care would likely result in the patient requiring inpatient psychiatric care which could not be prevented at a less intensive level of care. Total time managing care of this patient today ___40_ minutes. Discharge Plan Discharge Attending provider: Sarah Beth Castro Medications: New aripiprazole 2 mg tablet 2 mg PO BEDTIME Qty: 30 0RF duloxetine 30 mg capsule,delayed release(DR/EC) 30 mg PO BID Qty: 30 0RF No Action bupropion HCl 300 mg tablet extended release 24 hr 1 tab PO DAILY Qty: 30 0RF Patient Comments: Patient stated he restarted his medications over a week ago. He brought in his pill bottles to show me what he is currently taking. Rx Instructions: Last filled February 20, 2024 Januvia 50 mg Tablet 50 mg PO DAILY Patient Comments: Patient stated he restarted his medications over a week ago. He brought in his pill bottles to show me what he is currently taking. Rx Instructions: Last filled 03/29/24. amlodipine 10 mg Tablet 10 mg PO DAILY Qty: 30 0RF Protocol: Hold for SBP< HOLD for SBP < : 90 Patient Comments: Patient stated he restarted his medications over a week ago. He brought in his pill bottles to show me what he is currently taking. Rx Instructions: Last filled 02/20/24. metformin 500 mg Tablet 500 mg PO BID Rx Instructions: Last filled April 04, 2024. With meals gabapentin 400 mg Capsule 400 mg PO BEDTIME Patient Comments: Patient stated he restarted his medications over a week ago. He brought in his pill bottles to show me what he is currently taking. Rx Instructions: Last filled 10/26/24 clopidogrel 75 mg Tablet 75 mg PO DAILY Patient Comments: Patient stated he restarted his medications over a week ago. He brought in his pill bottles to show me what he is currently taking. Rx Instructions: Last filled 10/18/24 valsartan 320 mg Tablet 320 mg PO DAILY Patient Comments: Patient stated he restarted his medications over a week ago. He brought in his pill bottles to show me what he is currently taking. Rx Instructions: Last filled March 2024. aspirin 81 mg Capsule 81 mg PO DAILY Patient Comments: Patient stated he restarted his medications over a week ago. He brought in his pill bottles to show me what he is currently taking. Rx Instructions: Last filled 10/18/24 atorvastatin 80 mg Tablet 80 mg PO DAILY Rx Instructions: Last filled 02/19/24 #90 doxycycline hyclate 100 mg Capsule 100 mg PO BID Rx Instructions: Last filled 09/28/24 duloxetine 20 mg Capsule,Delayed Release(Dr/Ec) 20 mg PO BEDTIME Patient Comments: Patient stated he restarted his medications over a week ago. He brought in his pill bottles to show me what he is currently taking. Rx Instructions: Last filled 02/06/24. insulin glargine [Lantus Solostar U-100 Insulin] 100 unit/mL (3 mL) Insulin Pen 14 unit SUBCUT QPM Patient Comments: Patient stated he restarted his medications over a week ago. He brought in his pill bottles to show me what he is currently taking. Rx Instructions: Last filled 09/28/24. 90 day supply. Stand Alone Forms: Patient Portal Discharge page Print Language: Anguillan
--- NOTE | 2024-11-22 14:23 | HO.PHP ---
[facility] staff member followed up with Juan Ramon due to him reporting thoughts of SI with a plan and without intent. When PHP staff member explored what his plans were, he started with saying it is to take and then stopped, vocalizing, if I tell you, it's going to get me in trouble. [facility] staff member informed Juan Ramon that she is trying to keep him safe and asked if his plan is the same to what it was Friday, which was to take his sleeping pills. Juan Ramon said it was. [facility] staff member noted that she knows she spoke with him Friday around having his lock up that medication and asked if he has done that yet. Juan Ramon mentioned he hasn't but will ask her today. Juan Ramon shared that his protective factors are not feeling bad enough and his new job. Juan Ramon reassured the clinician that he has no intent to act on this plan. [facility] staff member asked Juan Ramon what he has planned for after program today. Juan Ramon disclosed that he is going to go home and have his help him fix his gmail account and then fill out the W2 paperwork for the new position. [facility] staff member was receptive. Juan Ramon noted that he would be in attendance to program tomorrow. [facility] staff member informed Juan Ramon that Dr. Castro would be reaching out to him later today to follow up. Juan Ramon appeared receptive.
[2024-11-23 12:58] VITALS: BP 126/64; PULSE 80
--- NOTE | 2024-11-23 23:42 | HO.PHPPROGNO ---
Subjective Subjective Date of Service: 11/23/24 Reason For Visit: depression Interim History: Patient seen for follow-up. Staff expressed concern regarding patient's ongoing endorsement of SI with plan. Met with patient who expressed appreciation that designer writer had checked in with him Friday night continued to voice no change but was able to contract for safety. He presents without change today. Continues to feel depressed ?no better no worse?. He has been making slow incremental increase in Abilify currently at 4 mg, denies any side effects. Has not been experiencing any sedation thus far as he had been on 5 mg in the past. At that time he tells me his medication was discontinued as he was at baseline felt to be euthymic and his prescriber felt he did not need to remain on Abilify anymore. We will plan to increase to 5 mg tonight which patient is agreeable to he has been tolerating duloxetine 30 mg twice a day and will also plan to bump up to 90 mg. He continues to endorse suicidal ideation with plan, he says he has no intention to act on this plan (overdose on gabapentin) but says it is just where his minds at if things ever got unsustainable. Presently he rates his depression at a 6/10 in severity and SI at a 4/10 in severity. He says this was the same ratings on admission. He is able to contract for safety and adds that if he ever got above a 7 out of 10 for SI he would call crisis and and if at a 10/10 he says he would go to the emergency room. Presently he does not feel he needs to go be assessed by crisis his main protective factors that he has a job on Friday and says he can not afford to be held up in the emergency room over the weekend. ?I got this new job on Friday. Do you know how hard it is to find a part-time job at my age. I am preston to have it?. He is future oriented and says he looks forward to this work. He shares he has been for 40 years, things are stable at home. He says his main stressor is his relationship with his adult children who do not live at home. He is aware referral has been placed for [facility] which we discussed in more detail. If he has not heard back by next Friday he is aware to reach out to their service to follow-up on the referral. On observation patient appears to have proximal weakness, has been noted to have difficulty rising from a seated position. Pushing against his thighs or pushing off the table with both hands in order to stand. I inquired how long this has been going on and he was not able to say but suspects it has been at least a year or 2. Appears cushingoid per body habitus, truncal obesity, upper extremity mild muscle wasting, alopecia. Endorses marked abdominal striae, fatigue and progressive weakness, which she has been attributing to chronic back problems. He is agreeable to getting lab work done in the morning plan to check a preliminary a.m. ACTH and cortisol levels. Medication Compliance: Yes Side effects from medications: No Attending Groups: Yes Review of Systems Acute medical concerns: No Mental Status Exam Mental Status Exam Narrative: Alert, oriented, in no acute distress. Calm, cooperative, engaged. No psychomotor agitation or neurovegetative retardation. Eye contact maintained. Mood depressed, affect constricted, irritable edge. Speech normal. Thought process linear, coherent. Thought content related to stressors, transient hopelessness, denies SI or HI. No paranoia or delusional content elicited. No evidence of psychosis. Insight and judgment - fair but adequate. Diagnostics Vital Signs (24Hr): Vital Signs - 24 hr 11/23/24 12:58 Pulse Rate 80 Blood Pressure 126/64 BMI result Body Mass Index 27.4 Assessment & Plan Assessment & Plan (1) Major depressive disorder, recurrent severe without psychotic features: Status: Acute Code(s): F33.2 - Major depressive disorder, recurrent severe without psychotic features (2) Pathological gambling: Status: Acute Code(s): F63.0 - Pathological gambling (3) ROBI (generalized anxiety disorder): Status: Acute Code(s): F41.1 - Generalized anxiety disorder (4) Proximal leg weakness: Status: Acute Code(s): R29.898 - Other symptoms and signs involving the musculoskeletal system Assessment and Plan: r/o Shraddha's syndrome Plan continue PHP increase Abilify to 5 mg qd increase duloxetine to 90 mg/d (split 60/30) continue other regular medications? Lab work ordered for AM - routine labs and ACTH and cortisol to assess for possible Shraddha's syndrome (can contribute to mood issues) EKG, routine for baseline QTc for medication considerations as indicated UDS as indicated VS reviewed: afebrile, BP 124/72;?84 bpm Safety plan reviewed - will plan to check in with patient tomorrow 5pm. Patient understands he must be available for phone check in Continue to monitor Patient educated on: diagnosis, medication risk/benefits, TMS and medical condition Guardian/Caregiver educated on: medical condition Informed Consent: understands Reason for contiued partial hosp. stay Substantial Risk for: med/psych decompensation Certification I certify that partial hospital treatment is medically necessary due to the symptoms and problems resulting from the patient's mental illness and the failure to treat the patient at the partial hospital level of care would likely result in the patient requiring inpatient psychiatric care which could not be prevented at a less intensive level of care. Total time managing care of this patient today __45__ minutes. Discharge Plan Discharge Attending provider: Sarah Beth Castro Medications: New aripiprazole 2 mg tablet 2 mg PO BEDTIME Qty: 30 0RF duloxetine 30 mg capsule,delayed release(DR/EC) 30 mg PO BID Qty: 30 0RF aripiprazole 5 mg tablet 5 mg PO DAILY Qty: 30 0RF No Action bupropion HCl 300 mg tablet extended release 24 hr 1 tab PO DAILY Qty: 30 0RF Patient Comments: Patient stated he restarted his medications over a week ago. He brought in his pill bottles to show me what he is currently taking. Rx Instructions: Last filled February 20, 2024 Januvia 50 mg Tablet 50 mg PO DAILY Patient Comments: Patient stated he restarted his medications over a week ago. He brought in his pill bottles to show me what he is currently taking. Rx Instructions: Last filled 03/29/24. amlodipine 10 mg Tablet 10 mg PO DAILY Qty: 30 0RF Protocol: Hold for SBP< HOLD for SBP < : 90 Patient Comments: Patient stated he restarted his medications over a week ago. He brought in his pill bottles to show me what he is currently taking. Rx Instructions: Last filled 02/20/24. metformin 500 mg Tablet 500 mg PO BID Rx Instructions: Last filled April 04, 2024. With meals gabapentin 400 mg Capsule 400 mg PO BEDTIME Patient Comments: Patient stated he restarted his medications over a week ago. He brought in his pill bottles to show me what he is currently taking. Rx Instructions: Last filled 10/26/24 clopidogrel 75 mg Tablet 75 mg PO DAILY Patient Comments: Patient stated he restarted his medications over a week ago. He brought in his pill bottles to show me what he is currently taking. Rx Instructions: Last filled 10/18/24 valsartan 320 mg Tablet 320 mg PO DAILY Patient Comments: Patient stated he restarted his medications over a week ago. He brought in his pill bottles to show me what he is currently taking. Rx Instructions: Last filled March 2024. aspirin 81 mg Capsule 81 mg PO DAILY Patient Comments: Patient stated he restarted his medications over a week ago. He brought in his pill bottles to show me what he is currently taking. Rx Instructions: Last filled 10/18/24 atorvastatin 80 mg Tablet 80 mg PO DAILY Rx Instructions: Last filled 02/19/24 #90 doxycycline hyclate 100 mg Capsule 100 mg PO BID Rx Instructions: Last filled 09/28/24 duloxetine 20 mg Capsule,Delayed Release(Dr/Ec) 20 mg PO BEDTIME Patient Comments: Patient stated he restarted his medications over a week ago. He brought in his pill bottles to show me what he is currently taking. Rx Instructions: Last filled 02/06/24. insulin glargine [Lantus Solostar U-100 Insulin] 100 unit/mL (3 mL) Insulin Pen 14 unit SUBCUT QPM Patient Comments: Patient stated he restarted his medications over a week ago. He brought in his pill bottles to show me what he is currently taking. Rx Instructions: Last filled 09/28/24. 90 day supply. Stand Alone Forms: Patient Portal Discharge page Print Language: Yi
--- NOTE | 2024-11-24 15:27 | HO.PHP ---
Juan Ramon went down to the emergency room due to receiving an injury from the night prior and needed to have it further looked at. Juan Ramon did not engage in any groups throughout the day.
--- NOTE | 2024-11-25 12:20 | HO.PHPPROGNO ---
Subjective Subjective Date of Service: 11/25/24 Reason For Visit: depression Interim History: Reviewed admission note on 11/12/2024. Noted Abilify restarted while maintaining gabapentin and Wellbutrin. Today continues to report feeling great benefit from the partial hospital program, which she has experienced in the past. Feels that medication has been helpful and tolerating Abilify now 5 mg with better mood, more motivated, sleep good. Appetite good. Intermittent thoughts of and suicide, but adamantly denies plans or intent. Reports these are less compared to when he first started the program. Is looking forward to his birthday this coming weekend, despite some disappointment certain people cannot make the alliance party, due to 's level of comfort and not knowing them. Reports partial program has helped with significant negative view of self which is longstanding and also help with coping skills. Regarding medications does not need prescriptions as he has a prescriber established and also has medications at home. Confirm current regimen is gabapentin 800 mg at bedtime, Wellbutrin 300 mg and Abilify 5 mg. Plan discharge from partial hospital program tomorrow 11/26/2024. Medication Compliance: Yes Side effects from medications: No Attending Groups: Yes Review of Systems Acute medical concerns: No Mental Status Exam Mental Status Exam Narrative: Pleasant. Engaged. Organized. Largely euthymic, with some disappointment when discussing interactions at home. Thoughts of suicide but no plans or intent and less compared to when he started the program. No HI. No agitation or psychosis. Insight and judgment good Diagnostics Vital Signs (24Hr): BMI result Body Mass Index 27.4 Assessment & Plan Assessment & Plan (1) Major depressive disorder, recurrent severe without psychotic features: Status: Acute Code(s): F33.2 - Major depressive disorder, recurrent severe without psychotic features (2) Pathological gambling: Status: Acute Code(s): F63.0 - Pathological gambling (3) ROBI (generalized anxiety disorder): Status: Acute Code(s): F41.1 - Generalized anxiety disorder (4) Proximal leg weakness: Status: Acute Code(s): R29.898 - Other symptoms and signs involving the musculoskeletal system Assessment and Plan: r/o Shraddha's syndrome Plan continue PHP increase Abilify to 5 mg qd increase duloxetine to 90 mg/d (split 60/30) continue other regular medications? Lab work ordered for AM - routine labs and ACTH and cortisol to assess for possible Anahola's syndrome (can contribute to mood issues) EKG, routine for baseline QTc for medication considerations as indicated UDS as indicated VS reviewed: afebrile, BP 124/72;?84 bpm Safety plan reviewed - will plan to check in with patient tomorrow 5pm. Patient understands he must be available for phone check in Continue to monitor 11/25/24: Reports partial program has helped with significant negative view of self which is longstanding and also help with coping skills. Regarding medications does not need prescriptions as he has a prescriber established and also has medications at home. Confirm current regimen is gabapentin 800 mg at bedtime, Wellbutrin 300 mg and Abilify 5 mg. Plan discharge from partial hospital program tomorrow 11/26/2024. Patient educated on: medication risk/benefits Guardian/Caregiver educated on: medical condition Informed Consent: understands Reason for contiued partial hosp. stay Substantial Risk for: stable for discharge Certification I certify that partial hospital treatment is medically necessary due to the symptoms and problems resulting from the patient's mental illness and the failure to treat the patient at the partial hospital level of care would likely result in the patient requiring inpatient psychiatric care which could not be prevented at a less intensive level of care. Total time managing care of this patient today _30___ minutes. Discharge Plan Discharge Attending provider: Sarah Beth Castro Additional Instructions: 0:00 AM - 11:00 AM CHD Adult Comprehensive Assessment?IN PERSON Prog: Outpatient Site:[address] [place] [address] Staff: Ronel Greene Medications: New duloxetine 30 mg capsule,delayed release(DR/EC) 30 mg PO BID Qty: 30 0RF aripiprazole 5 mg tablet 5 mg PO DAILY Qty: 30 0RF Continued bupropion HCl 300 mg tablet extended release 24 hr 1 tab PO DAILY Qty: 30 0RF Patient Comments: Patient stated he restarted his medications over a week ago. He brought in his pill bottles to show me what he is currently taking. Rx Instructions: Last filled February 20, 2024 Januvia 50 mg Tablet 50 mg PO DAILY Patient Comments: Patient stated he restarted his medications over a week ago. He brought in his pill bottles to show me what he is currently taking. Rx Instructions: Last filled 03/29/24. amlodipine 10 mg Tablet 10 mg PO DAILY Qty: 30 0RF Protocol: Hold for SBP< HOLD for SBP < : 90 Patient Comments: Patient stated he restarted his medications over a week ago. He brought in his pill bottles to show me what he is currently taking. Rx Instructions: Last filled 02/20/24. metformin 500 mg Tablet 500 mg PO BID Rx Instructions: Last filled April 04, 2024. With meals gabapentin 400 mg Capsule 400 mg PO BEDTIME Patient Comments: Patient stated he restarted his medications over a week ago. He brought in his pill bottles to show me what he is currently taking. Rx Instructions: Last filled 10/26/24 clopidogrel 75 mg Tablet 75 mg PO DAILY Patient Comments: Patient stated he restarted his medications over a week ago. He brought in his pill bottles to show me what he is currently taking. Rx Instructions: Last filled 10/18/24 valsartan 320 mg Tablet 320 mg PO DAILY Patient Comments: Patient stated he restarted his medications over a week ago. He brought in his pill bottles to show me what he is currently taking. Rx Instructions: Last filled March 2024. aspirin 81 mg Capsule 81 mg PO DAILY Patient Comments: Patient stated he restarted his medications over a week ago. He brought in his pill bottles to show me what he is currently taking. Rx Instructions: Last filled 10/18/24 atorvastatin 80 mg Tablet 80 mg PO DAILY Rx Instructions: Last filled 02/19/24 #90 insulin glargine [Lantus Solostar U-100 Insulin] 100 unit/mL (3 mL) Insulin Pen 14 unit SUBCUT BEDTIME Patient Comments: Patient stated he restarted his medications over a week ago. He brought in his pill bottles to show me what he is currently taking. Discontinued duloxetine 20 mg Capsule,Delayed Release(Dr/Ec) 20 mg PO BEDTIME Patient Comments: Patient stated he restarted his medications over a week ago. He brought in his pill bottles to show me what he is currently taking. Rx Instructions: Last filled 02/06/24. No Action gabapentin 400 mg capsule 800 mg PO BEDTIME metformin 500 mg tablet extended release 24 hr 1,000 mg PO BID aripiprazole 2 mg tablet 2 mg PO BEDTIME doxycycline hyclate 100 mg Capsule 100 mg PO BID Rx Instructions: Last filled 09/28/24 levofloxacin 500 mg tablet 500 mg PO DAILY 7 Days Qty: 7 0RF cephalexin 500 mg capsule 500 mg PO Q8H 7 Days Qty: 21 0RF Stand Alone Forms: Patient Portal Discharge page Patient Education: Depression Management for Older Adults (DC) Print Language: Mohawk Telehealth Telehealth Telehealth Platform: Other (please specify) ([employer]) Location of provider rendering services: other ([place]) Location of patient: other ([facility]) Patient Identification confirmed using: Name, : Yes Telehealth method: video Patient verbally consented to treatment: Yes Minutes spent on Phone/Video with Pt.: 15
--- NOTE | 2024-11-26 10:00 | PC.NURSE ---
Juan Ramon has been admitted to [facility] [place] floor for treatment of Cellulitis of the foot.
--- NOTE | 2024-11-29 10:02 | HO.PHP ---
[facility] staff member contacted Juan Ramon numerous times to let him know that since he was discharged from hospital for medical reasons that he could come to program today to discharge. Juan Ramon did call back but did not say anything and when [facility] staff member attempted to call him back, the phone went right to voicemail. [facility] staff member reached out to Juan Ramon multiple times after he did not show up to [facility] and also reached out to his emergency contact twice. [facility] staff member left a voicemail reminding Juan Ramon that he is still enrolled in our program and if we do not hear from him to know he is safe, then we have to move forward with reaching out to his emergency contact and then the police if he does not return our call. A similar message was left on his emergency contact's voicemail. [facility] staff member never received a phone call back and a wellness check was initiated at 10 AM. [facility] staff member spoke to dispatcher Evelia who voiced that someone will be going out to check on him and to call back in an hour regarding the status.
== END 2024-11-25 23:59 | disposition home or self-care (01) ==
LOC: HO.PHPA 10:00
PROVIDERS: Visit Provider Psychiatry & Neurology Psychiatry
DX: F33.2 Major depressive disorder, recurrent severe without psychotic features (principal); F63.0 Pathological gambling; F41.1 Generalized anxiety disorder; R29.898 Other symptoms and signs involving the musculoskeletal system; Z79.899 Other long term (current) drug therapy
CPT/HCPCS: 90791; 90853

== ENCOUNTER 2024-11-25 16:15 | Inpatient (IN) | payer OTHER, SELFPAY ==
[2024-11-25 16:27] VITALS: BP 151/76; PULSE 92; RESP 18; TEMP 36.1; O2SAT 99; BMI 27.4
--- NOTE | 2024-11-25 16:31 | ED_ITS ---
HPI - General Adult General Chief complaint: Extremity Injury, Lower Stated complaint: left foot swelling seen here 11/24 Time Seen by Provider: 11/25/24 21:09 Source: patient Mode of arrival: ambulatory Limitations: no limitations History of Present Illness ED Provider: HPI narrative: Patient is diabetic apparently stepped on a staple which went through the shoe about 4 days ago was seen here yesterday for punctate wound on the base of 3rd toe of left foot along with redness of the dorsum of the foot was given IV dose of vancomycin and cefepime and started on Levaquin and cephalexin patient comes here as he noticed increased swelling in the pain with redness which is getting worse since he left the ED patient has received tetanus showed about 6 years ago Related Data Home Medications ?Medication ?Instructions ?Recorded ?Confirmed sitagliptin phosphate 50 mg tablet 50 mg PO DAILY 11/15/22 11/16/24 (Januvia) aspirin 81 mg capsule 81 mg PO DAILY 11/16/24 11/16/24 atorvastatin 80 mg tablet 80 mg PO DAILY 11/16/24 11/16/24 clopidogrel 75 mg tablet 75 mg PO DAILY 11/16/24 11/16/24 doxycycline hyclate 100 mg capsule 100 mg PO BID 11/16/24 11/16/24 gabapentin 400 mg capsule 400 mg PO BEDTIME 11/16/24 11/16/24 insulin glargine 100 unit/mL (3 14 unit subcut BEDTIME 11/16/24 11/16/24 mL) subcutaneous pen (Lantus Solostar U-100 Insulin) metformin 500 mg tablet 500 mg PO BID 11/16/24 11/16/24 valsartan 320 mg tablet 320 mg PO DAILY 11/16/24 11/16/24 aripiprazole 2 mg tablet 2 mg PO BEDTIME 11/25/24 gabapentin 400 mg capsule 800 mg PO BEDTIME 11/25/24 11/25/24 metformin 500 mg tablet,extended 1,000 mg PO BID 11/25/24 release 24 hr Previous Rx's ?Medication ?Instructions ?Recorded bupropion HCl 300 mg 24 hr tablet, 1 tab PO DAILY #30 tabs 03/14/22 extended release amlodipine 10 mg tablet 10 mg PO DAILY #30 tabs 11/22/22 duloxetine 30 mg capsule,delayed 30 mg PO BID #30 caps 11/19/24 release aripiprazole 5 mg tablet 5 mg PO DAILY as directed #30 tabs 11/23/24 cephalexin 500 mg capsule 500 mg PO Q8H 7 days #21 caps 11/24/24 levofloxacin 500 mg tablet 500 mg PO DAILY 7 days #7 tabs 11/24/24 Allergies Allergy/AdvReac Type Severity Reaction Status Date / Time codeine [CODEINE] Allergy Unknown delayed Verified 11/25/24 16:29 responses 02/24/17 Review of Systems 2 Review of Systems: Yes all other systems are reviewed and are negative [facility] Past Medical History Medical History History of ETT Thyroid nodule Orthostatic hypertension Degenerative joint disease Cystic disease of kidney Bacteremia Diabetic neuropathy Coronary thrombosis Bacterial pneumonia Hypercholesteremia Major depressive disorder, recurrent severe without psychotic features ILD (interstitial lung disease) Heart disease, unspecified Preop cardiovascular exam Osteomyelitis Diabetic foot ulcer LBBB (left bundle branch block) Type 2 diabetes mellitus with foot ulcer HTN (hypertension) Suicidal ideation Depression Surgical History H/O cardiac catheterization Hx of fusion of cervical spine S/P spinal surgery H/O: vasectomy Family History Family History Father Neck malignant neoplasm Social History Social History Household Members: Spouse Housing: House Do you presently have visiting nurse or other home services: No Unable to assess alcohol history related to: Unknown Alcohol intake: never Patient Tobacco Use Status: Never used Tobacco e-Cigarette/Vaping Use: Never Used Second Hand Smoke Exposure: No Substance Use Type: Marijuana Advance Directives Date on File: 04/11/22 service: No Current occupational status: employed Sexual orientation: Straight/Heterosexual Physical Exam ED Vital Signs: Vital Signs - 24 hr 11/25/24 16:27 11/25/24 20:32 11/25/24 22:08 Temperature 97.0 F 97.9 F 98.2 F Pulse Rate 92 80 79 Respiratory Rate 18 16 16 Blood Pressure 151/76 H 143/74 H 140/74 H Pulse Oximetry 99 99 99 Oxygen Delivery Method Room Air Room Air Room Air BMI result Body Mass Index 27.4 Appearance: Alert. Oriented X3. No acute distress. Eyes: No pallor or icterus ENT: Pharynx normal. Oral Mucosa moist Neck: Normal inspection. Neck supple. CVS: Normal heart rate and rhythm. Pulses normal. Respiratory: No respiratory distress. Equal air entry bilateral, no wheezing/rales/rhonchi Abdomen: Soft and nontender. Bowel sounds are present, no mass palpable, no CVA tenderness Skin: Skin warm and dry. Normal skin color. Normal skin turgor. Extremities: No lower extremity edema. No calf tenderness redness in swelling of the dorsum of the left foot spreading to the proximal foot Neuro: Oriented X 3. No motor deficit. Course Course Course Narrative: RME, this is a rapid medical exam performed by Devonte Barriga please refer to primary provider for complete H&P- 58-year-old male past medical history significant for diabetes, depression, anxiety presents for evaluation of left foot pain and swelling. He was seen here yesterday after stepping on a construction staple. He had some redness to the left foot and was treated with a dose of cefepime and vancomycin. He was discharged with Levaquin and cephalexin. His redness has stayed the same but now the foot is more swollen and swollen. Plan for repeat labs and cultures Medications Administered Generic Name Dose Route Start Last Admin Trade Name Freq PRN Reason Stop Dose Admin Enoxaparin Sodium 40 mg 11/25/24 23:00 11/25/24 23:13 Enoxaparin Sodium 40 Mg/0.4 Ml Syringe SUBCUT 40 mg Q24H MICHELLE Administration Piperacillin Sod/Tazobactam 100 mls @ 200 mls/hr 11/26/24 00:00 11/26/24 02:02 Sod 4.5 gm/ Sodium Chloride IV Infused Q6H MICHELLE Infusion Insulin Glargine 10 unit 11/25/24 22:35 11/25/24 23:13 Insulin Glargine,Hum.Rec.Anlog 100 Unit/Ml 10 Ml Vial SUBCUT 10 unit BEDTIME MICHELLE Administration Sodium Chloride 3 ml 11/26/24 00:00 11/26/24 00:24 0.9 % Sodium Chloride Flush 3 Ml Syringe IVFLUSH 3 ml QSHIFT MICHELLE Administration Discontinued Medications Generic Name Dose Route Start Last Admin Trade Name Freq PRN Reason Stop Dose Admin Cefepime HCl 2 gm in 50 mls @ 100 mls/hr 11/25/24 21:31 11/25/24 22:55 Maxipime IV 11/25/24 22:00 Infused ONCE ONE Infusion Vancomycin HCl 2,000 mg in 500 mls @ 250 mls/hr 11/25/24 21:45 11/26/24 01:28 Vancomycin/Ns IV 11/25/24 23:44 Infused ONCE ONE Infusion Medical Decision Making Medical Decision Making [facility] Narrative: Patient is diabetic with puncture wound left foot with worsening of the cellulitis on Levaquin and cephalexin will admit patient IV antibiotics labs are stable Lab Data [facility] Lab Attestation statement: I reviewed the patient's lab results. 11/25/24 16:59 11/25/24 16:59 Labs: Lab Results 11/25/24 11/25/24 11/25/24 Range/Units 16:58 16:59 20:29 WBC 7.7 (4.8-10.8) X10*3/uL RBC 4.74 (4.60-5.80) X10*6/uL Hgb 12.5 L (14.0-18.0) g/dl Hct 39.1 L (42.0-52.0) % MCV 82.5 (80.0-98.0) fL MCH 26.4 L (27.0-33.0) pg MCHC 32.0 (31.0-36.0) g/dl RDW 17.0 H (11.0-16.0) % Plt Count 203 (160-400) X10*3/uL MPV 9.9 (9.4-12.4) fL Immature Gran % (Auto) 0.5 H (0.0-0.4) % Neut % (Auto) 71.9 (45-73) % Lymph % (Auto) 15.9 L (20-40) % Orange % (Auto) 9.9 (2-11) % Eos % (Auto) 1.4 (0-4) % Baso % (Auto) 0.4 (0-2) % Lymph # (Auto) 1.2 (1.2-4.9) X10*3/uL Orange # (Auto) 0.8 (0.1-1.2) X10*3/uL Eos # (Auto) 0.1 (0.0-0.4) X10*3/uL Baso # (Auto) 0.0 (0.0-0.2) X10*3/uL Abs Immat Gran (auto) 0.04 H (0.00-0.03) X10*3/uL Absolute Neuts (auto) 5.5 (2.0-8.3) x10*3/uL Absolute Nucleated RBC 0.000 (0.0-0.012) X10*3/uL Nucleated RBC % (auto) 0.0 (0.0-0.2) /100WBC ESR 34 H (0-15) MM/HR Sodium 142 (135-145) mmol/L Potassium 4.5 (3.3-5.1) mmol/L Chloride 109 H (96-108) mmol/L Carbon Dioxide 23 (22-29) mmol/L Anion Gap 15 (12-20) BUN 22 H (9-16) mg/dL Creatinine 0.92 (0.5-1.4) mg/dL Estim Creat Clear Calc 83.6 Estimated GFR > 60 Random Glucose 131 H (60-115) mg/dL Lactic Acid 1.6 (0.5-2.0) mmol/L Calcium 9.7 (8.4-10.2) mg/dL Total Bilirubin 0.3 (0.0-1.0) mg/dL AST 22 (5-37) U/L ALT 9 (0-40) U/L Alkaline Phosphatase 90 (39-117) U/L C-Reactive Protein 1.79 H (< or = 0.50) mg/dL Total Protein 6.9 (6.5-8.0) g/dL Albumin 3.9 (3.5-5.0) g/dL Lipase 18 (8-78) U/L Discharge Plan Discharge Clinical Impression: Cellulitis of left foot Patient Disposition: Admitted As Inpatient Interventions: Admission Worksheet (ED) Last Done: 11/26/24 00:28 Discharge Date/Time: 11/26/24 01:10
[2024-11-25 17:06] LABS: MANUAL DIFF FLAG NO
[2024-11-25 17:08] LABS: Basophils Percent Auto 0.4 % (0-2); Eosinophils Absolute Auto 0.1 X10*3/uL (0.0-0.4); Eosinophils Percent Auto 1.4 % (0-4); Hematocrit 39.1 % (42.0-52.0); Hemoglobin 12.5 g/dl (14.0-18.0); Imm Gran Abs Auto 0.04 X10*3/uL (0.00-0.03); Imm Gran Pct Auto 0.5 % (0.0-0.4); Lymphocytes Absolute Auto 1.2 X10*3/uL (1.2-4.9); Lymphocytes Percent Auto 15.9 % (20-40); Mean Corpuscular Hemoglobin 26.4 pg (27.0-33.0); Mean Corpuscular Volume 82.5 fL (80.0-98.0); Mean Platelet Volume 9.9 fL (9.4-12.4); Monocytes Absolute Auto 0.8 X10*3/uL (0.1-1.2); Monocytes Percent Auto 9.9 % (2-11); Neutrophils Absolute Auto 5.5 x10*3/uL (2.0-8.3); Neutrophils Percent Auto 71.9 % (45-73); Platelet Count 203 X10*3/uL (160-400); Red Blood Count 4.74 X10*6/uL (4.60-5.80); White Blood Count 7.7 X10*3/uL (4.8-10.8)
[2024-11-25 17:23] LABS: Alanine Aminotransferase 9 U/L (0-40); Albumin Level 3.9 g/dL (3.5-5.0); Alkaline Phosphatase 90 U/L (39-117); Anion Gap 15 (12-20); Aspartate Amino Transferase 22 U/L (5-37); Bilirubin Total 0.3 mg/dL (0.0-1.0); Blood Urea Nitrogen 22 mg/dL (9-16); C Reactive Protein 1.79 mg/dL (< or = 0.50); Calcium 9.7 mg/dL (8.4-10.2); Carbon Dioxide 23 mmol/L (22-29); Chloride 109 mmol/L (96-108); Creatinine Clr Calc Pharmacy 83.6; Estimated Glomerular Filt Rate > 60; Glucose Random 131 mg/dL (60-115); Lipase 18 U/L (8-78); Potassium 4.5 mmol/L (3.3-5.1); Sodium 142 mmol/L (135-145); Total Protein 6.9 g/dL (6.5-8.0)
[2024-11-25 17:23] LABS: Lactic Acid 1.6 mmol/L (0.5-2.0)
--- OUTSIDE RECORDS SUMMARY | 2024-11-25 20:15 | XMS_ITS | Clinical Summary ---
Author Organization [facility] it Address [address] [place] [address] Care Team Providers Care Application Systems Architect Name Role Phone Chong Rojas MD Primary Care Provider Medical History Medical History Date Comments Right hand pain DX:Right hand pa in Anxiety DX:Anxiety Depression DX:Depression Hyperlipidemia DX:Hyperlipidemi a High blood pressure DX:High bloo d pressure Diabetes mellitus (CMS/HCC V24, CMS/HCC V28) DX:Diabetes mellitus ([facility]) Family History Medical History Relation Name Comments [...] age to complete this topic Care Teams Application Systems Architect Relationship Specialty Start Date End Date Chong Rojas MD [address] [place] [address] [address] [facility] [place] PCP - General Internal Medicine 08/10/15
--- OUTSIDE RECORDS SUMMARY | 2024-11-25 20:15 | XMS_ITS | Clinical Summary ---
Author Organization [facility] Address [address] [place] [address] Care Team Providers Care Art Gallery Director Name Role Phone Crystal DENNIS MD, Chong Jett Primary Care Provider [phone]- [phone] Allergies Active Allergy Reactions Criticality Noted Date [...] age to complete this topic Care Teams Art Gallery Director Relationship Specialty Start Date End Date Chong Rojas II, MD [address] [place] [address] PCP - General Internal Medicine 08/10/15
--- OUTSIDE RECORDS SUMMARY | 2024-11-25 20:15 | XMS_ITS ---
Author Organization Unknown Address [address] [place] [phone] Phone Care Team Providers Care Technology Intern Name Role Phone BEATRIZ PORRAS Jewel Registered Nurse Unavailable MALCOLM WATERMAN Registered Nurse Unavailab kurtis SOLORZANO Registered Nurse Unavailable NIKOLAI Bai Attending Unavailable UNLISTED PROVIDER - REQUESTED Xhandoff Un available Results NOVA GLUCOSE FINGER HEEL CAP ILLARY - Collect Date/Time: 05/03/2024 05:28 [facility] ID: [id number] [address] [place] [address], [phone] LOINC: 11272-3 Test Value Unit Reference Range Code Code System Flag GLUCOSE CAP 169 mg/dL L=70 H=116 50810-0 LOINC H TROPONIN HIGH SENSITIVITY* - Collect Date/Time: 05/03/2024 04:50 [facility] ID: [id number] [address] [place] [address], [address] LOINC: 90419-6 Test Value Unit Reference Range Code Code System Flag TROPONIN HS 7.5 pg/mL L=0.0 H=60.4 Specimen seq. RANDOM BNP (PRO-B NATRIURETIC PEPTI DE) - Collect Date/Time: 05/03/2024 04:50 [facility] ID: [id number] [address] [place] [address], [address] LOINC: 72015-6 Test Value Unit Reference Range Code Code System Flag NT-proBNP 206.0 pg/mL L=0.0 H=125 69645-0 LOINC H NOVA GLUCOSE FINGER HEEL CAP ILLARY - Collect Date/Time: 05/03/2024 03:30 [facility] ID: [id number] [address] [place], [place], [id number] LOINC: 54888-4 Test Value Unit Reference Range Code Code System Flag GLUCOSE CAP 252 mg/dL L=70 H=116 49849-6 LOINC H NOVA GLUCOSE FINGER HEEL CAP ILLARY - Collect Date/Time: 05/03/2024 02:03 [facility] ID: [id number] [address] [place], [place], [phone] LOINC: 33734-4 Test Value Unit Reference Range Code Code System Flag GLUCOSE CAP 280 mg/dL L=70 H=116 77662-1 LOINC H NOVA GLUCOSE FINGER HEEL CAP ILLARY - Collect Date/Time: 05/03/2024 00:35 [facility] ID: [id number] [address] [place] [address], [phone] LOINC: 45118-3 Test Value Unit Reference Range Code Code System Flag GLUCOSE CAP 308 mg/dL L=70 H=116 14247-4 LOINC H URINALYSIS ROUTINE* - Colle t Date/Time: 05/02/2024 23:40 [facility] ID: [id number] [address] [place] [address], [address] LOINC: Test Value Unit Reference Range Code Code System Flag COLLECTION MODE: VOID 64298-3 LOINC Color YELLOW yellow 5778-6 LOINC Appearance CLEAR clear 5767-9 LOINC Glucose urine >=1000 negative mg/dl 68169-9 LOINC A Bilirubin NEGATIVE negative 5770-3 LOINC Ketones NEGATIVE negative mg/dl 2514-8 LOINC Spec gravity 1.010 1.003 - 1.030 5811-5 LOINC pH urine 5.5 5.0 - 7.0 2756-5 LOINC Protein NEGATIVE negative mg/dl 17072-9 LOINC Urobilinogen 0.2 <or= 1 EU/dl 48964-4 LOINC Nitrite NEGATIVE negative 5802-4 LOINC Blood NEGATIVE negative 5794-3 LOINC Leukocytes NEGATIVE negative 07813-1 LOINC MICROSCOPIC* NOT INDICAT MAGNESIUM SERUM* - Collect D ate/Time: 05/02/2024 23:20 [facility] ID: [id number] [address] [place], [place], [address] LOINC: 23983-8 Test Value Unit Reference Range Code Code System Flag MAGNESIUM 1.7 mg/dL L=1.8 H=2.4 19303-0 LOINC L LACTIC ACID - Collect Date/T marley: 05/02/2024 23:20 [facility] ID: [id number] [address] [place] [address], [address] LOINC: Test Value Unit Reference Range Code Code System Flag LACTIC ACID 2.2 mmol/L L=0.7 H=2.1 70613-3 LOINC H COMPREHENSIVE METABOLIC PANE L (CMP) - Collect Date/Time: 05/02/2024 23:20 [facility] ID: [id number] [address] [place] [address], [address] LOINC: 58280-7 Test Value Unit Reference Range Code Code [...] H=34 2028-9 LOINC ANION GAP 6.7 mmol/L 47751-9 LOINC CALCIUM SERUM 8.2 mg/dL L=8.2 H=10.2 99161-3 LOINC BILIRUBIN TOTAL 0.2 mg/dL L=0.0 H=1.3 1975-2 LOINC ALK. PHOS. 98 U/L L=46 H=116 6768-6 LOINC SGOT (AST) 10 U/L L=15 H=37 1920-8 LOINC L SGPT (ALT) 11 U/L L=12 H=78 1742-6 LOINC L TOTAL PROTEIN 6.0 gm/dL L=6.0 H=8.0 2885-2 LOINC ALBUMIN 2.6 gm/dL L=3.4 H=5.0 1751-7 LOINC L AGE 58 years eGFR (non-Afr.Amer.) 76 mL/min 30456-6 LOINC eGFR (Afr-[place]) 91 mL/min 06966-9 LOINC CBC W/ DIFFERENTIAL* - Colle ct Date/Time: 05/02/2024 23:20 [facility] ID: [id number] [address] [place], [place], [address] LOINC: 03759-4 Test Value Unit Reference Range Code Code System Flag WBC 6.38 th/cmm L=5.00 H=10.00 6690-2 LOINC NEUT % 61.9 % L=40.0 H=80.0 LYMPH % 25.4 % L=10.0 H=50.0 MONO % 9.6 % L=2.0 H=12.0 01763-0 LOINC EOS % 2.0 % L=0.0 H=8.0 BASO % 0.5 % L=0.0 H=3.0 IG % 0.6 % L=0.0 H=1.1 2514-8 LOINC NRBC % 0.0 % L=0.0 H=0.0 04992-6 LOINC NEUT abs count 4.0 th/cmm L=1.6 H=8.4 751-8 LOINC LYMPH abs count 1.6 th/cmm L=1.5 H=4.0 731-0 LOINC MONO abs count 0.6 th/cmm L=0.2 H=1.0 742-7 LOINC EOS abs count 0.1 th/cmm L=0.0 H=0.5 711-2 LOINC BASO abs count 0.0 th/cmm L=0.0 H=0.2 704-7 LOINC IG abs count 0.0 th/cmm L=0.0 H=0.1 21244-5 LOINC NRBC abs count 0.0 mil/cmm L=0.0 H=0.0 98764-0 LOINC RBC 4.17 mil/cmm L=4.30 H=6.20 789-8 [...] CAP ILLARY - Collect Date/Time: 05/02/2024 23:00 [facility] ID: [id number] [address] [place], [place], [id number] LOINC: 97824-7 Test Value Unit Reference Range Code Code System Flag GLUCOSE CAP 318 mg/dL L=70 H=116 11926-2 LOINC H XR CHEST PORTABLE OR 1V - Co mpleted: 05/02/2024 23:30 LOINC: [facility] RADIOLOGY [place], [place] [address] RADIOLOGY RAW STOCK MACHINE FEEDER REPORT Patient Name: BELLE PIERRE MRN: Sex: : Age: [id number] M 1965 58 Account: Accession: Admit: StayType: [id number] 05/02/2024 E Ordered: Order ID: Submitted: Ordering Provider: 05/02/2024 23:14 [id number] SCOTT SORTO Completed: Technologist: Resulted: 05/02/2024 23:27 [...] who have questions please contact the health intensive care specialist that requested your imaging first. Social History Type Status Start Date End Date Code Code Syst em Smoking History Never smoker (Never Smoked) 740609535 SNOMED CT Sex Male Vital Signs Vital Sign Value Unit [place] [facility] [place] Unit Date/Time Recent/Initial? Code Code System Body Mass Index 26.61 kg/m2 05/02/2024 22:49 Initial 74350 -5 LOINC Systolic Blood Pressure 133 mm[Hg] [...] Saturation 97 % 2023 06:00 Most Recent 52326 -5 LOINC O2 Saturation 98 % 2023 22:49 Initial 58886 -5 LOINC Pulse 77.0 /min 05/03/2024 06:00 Most Recent 8867- 4 LOINC Pulse 94.0 /min 05/02/2024 22:49 Initial 8867- 4 LOINC Respiration 16 /min 05/03/20 06:00 Most Recent 9279- 1 LOINC Respiration 16 /min 05/02/20 22:49 Initial 9279- 1 LOINC Temperature 37.1 Ana 98.8 F 05/02/20 22:49 Initial 8310- 5 LOINC Weight 79.38 kg 175.00 lbs 05/02/2024 22:49 Initial 88169 -7 LOINC Hospital Discharge Instructions Should you have any questions prior to discharge, please contact a member of your healthcare team. If you have left the hospital and have any questions, please contact your primary care physician. Reason For Referral No Data Found Procedures Procedure Name Date Status Code Code Syste m History of cervical spine surgery completed 42 [id number] SNOMEDCT History of thoracic spine surgery completed 42 3360241 SNOMEDCT Problems Problem Start Date Resolved Date Status Code Code System HYPERTENSION 05/03/2024 resolved 63831065 SNOMED -CT TYPE 2 DIABETES 05/03/2024 resolved 51313551 SNO MED-CT LBBB 05/03/2024 resolved 05784760 SNOMED-CT Allergies and Adverse Reactions Allergy Substance Reaction Severity Start Date Concern Status Co de Code System CODEINE Active 8790 RxNorm Plan of Treatment No Data Found Encounters Encounter Diagnosis Start Date Code Code Sys tem Type 2 diabetes mellitus with hyperglycemia 05/02/2024 SNOMED-CT Personal Care Team Section Performer Name Performer Role Active Date Inactive Da te
[2024-11-25 20:32] VITALS: BP 143/74; PULSE 80; RESP 16; TEMP 36.6; O2SAT 99
[2024-11-25 21:19] LABS: Erythrocyte Sedimentation Rate 34 MM/HR (0-15)
[2024-11-25 22:08] VITALS: BP 140/74; PULSE 79; RESP 16; TEMP 36.8; O2SAT 99
[2024-11-25] MEDS: cefEPime HCl/D5W 2 GM/50 ML PIGGYBACK IV (22:28)
--- NOTE | 2024-11-25 22:34 | P.HPHOSP_ITS ---
History of Present Illness Date of Service: 11/25/24 Chief Complaint: Foot swelling This is a 58-year-old male with pertinent history of insulin-dependent diabetes mellitus, left bundle branch block, nonischemic cardiomyopathy, hypertension, mood disorder who presents to the emergency department for evaluation of left foot swelling and pain. Patient was seen in the ER 1 day prior to presentation and discharged home on p.o. antibiotics. Patient states he noticed increased swelling and redness of his left foot so he decided to come back to the ER. Also has been complaining of chills but no documented temperature. Has associated pain with ambulation of left foot. Patient states he stepped on a staple about 4 days ago and since then he has had redness, swelling and pain of his left foot. No chest pain, palpitations, shortness of breath, abdominal pain, changes in urinary or bowel habits. In the emergency department, foot x-ray without any acute abnormality. Patient given empiric IV antibiotics in the ER Review of Systems 2 Constitutional: Constitutional: Reports no additional constitutional complaints Cardiovascular: Cardiovascular: Reports no additional cardiovascular complaints Respiratory: Respiratory: Reports no additional respiratory complaints Gastrointestinal: Gastrointestinal: Reports no additional gastrointestinal complaints Genitourinary: Genitourinary: Reports no additional male genitourinary complaints Musculoskeletal: Musculoskeletal: Reports arthralgias and Reports joint swelling PMFSH Medical History History of ETT Thyroid nodule Orthostatic hypertension Degenerative joint disease Cystic disease of kidney Bacteremia Diabetic neuropathy Coronary thrombosis Bacterial pneumonia Hypercholesteremia Major depressive disorder, recurrent severe without psychotic features ILD (interstitial lung disease) Heart disease, unspecified Preop cardiovascular exam Osteomyelitis Diabetic foot ulcer LBBB (left bundle branch block) Type 2 diabetes mellitus with foot ulcer HTN (hypertension) Suicidal ideation Depression Family History Father Neck malignant neoplasm Surgical History H/O cardiac catheterization Hx of fusion of cervical spine S/P spinal surgery H/O: vasectomy Social History Household Members: Spouse Housing: House Do you presently have visiting nurse or other home services: No Unable to assess alcohol history related to: Unknown Alcohol intake: never Patient Tobacco Use Status: Never used Tobacco e-Cigarette/Vaping Use: Never Used Second Hand Smoke Exposure: No Substance Use Type: Marijuana Advance Directives: Yes Advance Directives on File: Yes Advance Directives Date on File: 04/11/22 service: No Current occupational status: employed Sexual orientation: Straight/Heterosexual Meds Allergies Allergy/AdvReac Type Severity Reaction Status Date / Time codeine [CODEINE] Allergy Unknown delayed Verified 11/25/24 16:29 responses 02/24/17 Active Medications: Current Medications Vancomycin HCl (Vancomycin/Ns) 2,000 mg in 500 mls @ 250 mls/hr IV ONCE ONE Stop: 11/25/24 23:44 Home Medications ?Medication ?Instructions ?Recorded ?Confirmed ?Last Taken ?Type sitagliptin phosphate 50 mg tablet 50 mg PO DAILY 11/15/22 11/16/24 11/15/22 History (Bjornia) aspirin 81 mg capsule 81 mg PO DAILY 11/16/24 11/16/24 Unknown History atorvastatin 80 mg tablet 80 mg PO DAILY 11/16/24 11/16/24 Unknown History clopidogrel 75 mg tablet 75 mg PO DAILY 11/16/24 11/16/24 Unknown History doxycycline hyclate 100 mg capsule 100 mg PO BID 11/16/24 11/16/24 Unknown History gabapentin 400 mg capsule 400 mg PO BEDTIME 11/16/24 11/16/24 Unknown History insulin glargine 100 unit/mL (3 14 unit subcut QPM 11/16/24 11/16/24 Unknown History mL) subcutaneous pen (Lantus Solostar U-100 Insulin) metformin 500 mg tablet 500 mg PO BID 11/16/24 11/16/24 Unknown History valsartan 320 mg tablet 320 mg PO DAILY 11/16/24 11/16/24 Unknown History Physical Exam 2 Vital Signs and Narrative: Vital Signs: Last Vital Signs Temp 98.2 F 11/25/24 22:08 Pulse 79 11/25/24 22:08 Resp 16 11/25/24 22:08 BP 140/74 H 11/25/24 22:08 Pulse Ox 99 11/25/24 22:08 O2 Del Method Room Air 11/25/24 22:08 BMI result Body Mass Index 27.4 Middle-aged male lying in bed in no distress Neck supple, no JVD Regular rate and rhythm, S1-S2 heard Regular breath sounds bilaterally, no wheezing or crackles appreciated Abdomen soft nontender, no guarding, no rigidity Patient is awake, alert and oriented to self, place, time and person ; no focal motor deficit Psych: Normal mood Redness and swelling seen over dorsum of left foot Results Labs 11/25/24 16:59 11/25/24 16:59 Labs: Laboratory Results - last 24 hr 11/25/24 11/25/24 11/25/24 16:58 16:59 20:29 MCV 82.5 MCH 26.4 L MCHC 32.0 RDW 17.0 H Plt Count 203 MPV 9.9 Immature Gran % (Auto) 0.5 H Neut % (Auto) 71.9 Lymph % (Auto) 15.9 L Johnston % (Auto) 9.9 Eos % (Auto) 1.4 Baso % (Auto) 0.4 Lymph # (Auto) 1.2 Johnston # (Auto) 0.8 Eos # (Auto) 0.1 Baso # (Auto) 0.0 Abs Immat Gran (auto) 0.04 H Absolute Neuts (auto) 5.5 Absolute Nucleated RBC 0.000 Nucleated RBC % (auto) 0.0 ESR 34 H Anion Gap 15 Estim Creat Clear Calc 83.6 Estimated GFR > 60 Random Glucose 131 H Lactic Acid 1.6 Calcium 9.7 Total Bilirubin 0.3 AST 22 ALT 9 Alkaline Phosphatase 90 C-Reactive Protein 1.79 H Total Protein 6.9 Albumin 3.9 Lipase 18 Assessment and Plan (1) Cellulitis of left foot: Status: Acute Plan This is a 58-year-old male with pertinent history of insulin-dependent diabetes mellitus, left bundle branch block, nonischemic cardiomyopathy, hypertension, mood disorder who presents to the emergency department for evaluation of left foot swelling and pain. #. Acute left foot nonpurulent cellulitis due to trauma: Patient failed outpatient p.o. antibiotics. Will admit patient with empiric IV antibiotics in a patient with diabetes mellitus. No sepsis. Monitor for improvement. Wound care consult #. Insulin-dependent diabetes mellitus: Initiating basal plus insulin regimen #. Hypertension: Continue home antihypertensives #. Mood disorder: Continue home mood stabilizers Med rec pending DVT prophylaxis: Lovenox Full code Admit as inpatient and will require two night minimum hospital stay for IV antibiotics (as above), which is not possible in a lesser acute setting. Quality Stroke Does the patient have a stroke diagnosis?: No VTE Prior VTE?: No VTE Risk Level:: Medical - moderate - high VTE Device Contraindication: Treatment Not Indicated VTE Drug Contraindication: N/A - Med Ordered
[2024-11-25] MEDS: vancomycin/NS 2,000 MG/500 ML PLAST..BAG 250 MG IV (22:54)
[2024-11-25] MEDS: Insulin Glargine,Hum.rec.anlog 100 UNIT/ML 10 ML VIAL 10 UNIT SUBCUT (23:13)
[2024-11-25] MEDS: Enoxaparin Sodium 40 MG/0.4 ML SYRINGE SUBCUT (23:13)
[2024-11-25 23:21] LABS: Glucose, Whole Blood 103 mg/dL (60-115)
[2024-11-25 23:30] VITALS: BP 119/72; PULSE 76; RESP 16; O2SAT 96
[2024-11-26] MEDS: 0.9 % Sodium Chloride Flush 3 ML SYRINGE IVFLUSH ×3 (00:24→21:55)
[2024-11-26 01:09] VITALS: BMI 26.9
[2024-11-26 01:14] VITALS: BP 132/65; PULSE 77; RESP 17; TEMP 36.1; O2SAT 97
[2024-11-26] MEDS: Piperacillin Sodium/Tazobactam 4.5 GM in 0.9 % Sodium Chloride 100 ML IV ×4 (01:26→21:14)
--- NOTE | 2024-11-26 01:58 | HO.SKINPHOTO ---
Location: left foot Category: diabetic ulcer Stage: Length: Width: Depth: cm Location: Category: Stage: Length: Width: Depth: cm Location: Category: Stage: Length: Width: Depth: cm Location: Category: Stage: Length: Width: Depth: cm Location: Category: Stage: Length: Width: Depth: cm Location: Category: Stage: Length: Width: Depth: cm
[2024-11-26 07:09] LABS: MANUAL DIFF FLAG NO
[2024-11-26 07:13] LABS: Basophils Percent Auto 0.4 % (0-2); Eosinophils Absolute Auto 0.1 X10*3/uL (0.0-0.4); Eosinophils Percent Auto 1.7 % (0-4); Hematocrit 37.4 % (42.0-52.0); Hemoglobin 12.3 g/dl (14.0-18.0); Imm Gran Abs Auto 0.03 X10*3/uL (0.00-0.03); Imm Gran Pct Auto 0.6 % (0.0-0.4); Lymphocytes Percent Auto 18.9 % (20-40); Mean Corpuscular HGB Conc 32.9 g/dl (31.0-36.0); Mean Corpuscular Hemoglobin 26.7 pg (27.0-33.0); Mean Corpuscular Volume 81.1 fL (80.0-98.0); Mean Platelet Volume 9.6 fL (9.4-12.4); Monocytes Absolute Auto 0.6 X10*3/uL (0.1-1.2); Monocytes Percent Auto 11.6 % (2-11); Neutrophils Absolute Auto 3.5 x10*3/uL (2.0-8.3); Neutrophils Percent Auto 66.8 % (45-73); Platelet Count 192 X10*3/uL (160-400); Red Blood Count 4.61 X10*6/uL (4.60-5.80); White Blood Count 5.2 X10*3/uL (4.8-10.8)
[2024-11-26 07:16] LABS: Glucose, Whole Blood 130 mg/dL (60-115)
[2024-11-26 07:27] LABS: Anion Gap 13 (12-20); Blood Urea Nitrogen 16 mg/dL (9-16); Calcium 9.4 mg/dL (8.4-10.2); Carbon Dioxide 24 mmol/L (22-29); Chloride 113 mmol/L (96-108); Creatinine Clr Calc Pharmacy 102.6; Estimated Glomerular Filt Rate > 60; Glucose Random 124 mg/dL (60-115); Potassium 3.9 mmol/L (3.3-5.1); Sodium 146 mmol/L (135-145)
[2024-11-26 07:33] VITALS: BP 129/77; PULSE 83; RESP 18; TEMP 36.4; O2SAT 97
--- NOTE | 2024-11-26 09:05 | MHC.CLN ---
NUTRITION ALERTED THAT PATIENT WOULD LIKE NUTRITIONAL SUPPLEMENT. DISCUSSED WITH PATIENT. INCREASING DIET KCALS TO DIABETIC 2200 KCALS AND ADDING ENSURE MAX BID. SUPPLEMENT PROVIDES 300 KCALS, 60 G PROTEIN.
[2024-11-26] MEDS: Doxycycline Hyclate 100 MG in 0.9 % Sodium Chloride 250 ML 166.67 MG IV ×2 (09:31→21:53)
--- NOTE | 2024-11-26 09:56 | MHC.CM.PN ---
PATIENT LIVES IN A HOME W/ . FUNCTIONALLY INDEPENDENT. HAS DM SUPPLIES - INSULIN PEN/GLUCOMETER PCP DR GOMEZ REPORTS HE HAS AN HCP LISTING HIS , [facility], [facility]. COPY REQUESTED. DP: GOAL IS HOME SELF CARE. REPORTS HIS CAN ASSIST W/ WOUND CARE (WOUND TO BOTTOM OF FOOT). WILL NEED SUPPLIES ON DC. [place] [facility] [place]. CM WILL CONTINUE TO FOLLOW.
--- NOTE | 2024-11-26 10:18 | PHA.MEDREC ---
Addendum entered by Trev Tipton 11/26/24 10:47: reviewed Original Note: Pharmacy Consult ? Medication Reconciliation Pharmacy has completed the medication reconciliation. Spoke with patient and he confirmed his medications. Pt confirmed he still takes Amlodipine, Atorvastatin, Gabapentin and Metformin, despite not having any recent fill history for those; patient confirmed he is filling those at [facility] on [address] I called [facility] and they confirmed the Amlodipine, Atorvastatin and Bupropion were last picked up in February 2024. Januvia, Metformin and Valsartan were last picked up in March 2024 and patient confirmed he is taking the Gabapentin 400mg tab 2 tabs at bedtime and when asking [facility] they confirmed he just recently picked up a script for Gabapentin 400mg 1 cap @ bedtime in October for 90 days. Patient also confirmed he started taking Cephalexin and Levofloxacin Friday.
--- NOTE | 2024-11-26 10:52 | P.PNIM_ITS ---
Subjective Subjective Date of Service: 11/26/24 Interval History: f/u on erythemea of left fot, an punture wound to the foot from steping on paper clip minimal erythema today Physical Exam 2 Vital Signs: Vital Signs: Last Vital Signs Temp 97.5 F 11/26/24 07:33 Pulse 83 11/26/24 07:33 Resp 18 11/26/24 07:33 BP 129/77 11/26/24 07:33 Pulse Ox 97 11/26/24 07:33 O2 Del Method Room Air 11/26/24 07:33 BMI result Body Mass Index 26.9 General: AO X 3, no acute distress Resp: CTA bilateral CVS: S1,S2,RRR GI: +BS, NT, no distention Skin: No rash, minimal redness on torp of left foot, no open wound at the sole pin point puntures noted, no drainage Neuro: motor grossly intact Psych: appropriate affect Objective Data Active Medications Acetaminophen (Acetaminophen 325 Mg Tablet) 650 mg PO Q6H PRN PRN Reason: Pain, Mild 1-3,fever,headache Amlodipine Besylate (Amlodipine Besylate 10 Mg Tablet) 10 mg PO DAILY [facility]; Protocol Aripiprazole (Aripiprazole 5 Mg Tablet) 5 mg PO DAILY [facility] Aspirin (Aspirin Enteric Coated 81 Mg Tablet.) 81 mg PO DAILY [facility] Atorvastatin Calcium (Atorvastatin Calcium 80 Mg Tablet) 80 mg PO DAILY [facility] Bupropion HCl (Bupropion Hcl Xl 300 Mg Tab.Er.24h) 300 mg PO DAILY [facility] Calcium Carbonate (Calcium Carbonate 750 Mg Tab.Chew) 750 mg PO Q4H PRN PRN Reason: Heartburn Clopidogrel Bisulfate (Clopidogrel Bisulfate 75 Mg Tablet) 75 mg PO DAILY [facility] Dextrose (Dextrose 50 % 25 Gm/50 Ml Syringe) 25 gm IVPUSH Q15M PRN; Protocol PRN Reason: per Hypoglycemia Standing Ord. Duloxetine HCl (Duloxetine Hcl 30 Mg Capsule.) 30 mg PO BID [facility] Enoxaparin Sodium (Enoxaparin Sodium 40 Mg/0.4 Ml Syringe) 40 mg SUBCUT Q24H [facility] Last Admin: 11/25/24 23:13 Dose: 40 mg Documented By: LEIF Gabapentin (Gabapentin 400 Mg Capsule) 800 mg PO BEDTIME [facility] Glucose (Glucose Gel 15 Gm Gel..Gram.) 15 gm PO Q15M PRN; Protocol PRN Reason: per Hypoglycemia Standing Ord. Piperacillin Sod/Tazobactam (Sod 4.5 gm/ Sodium Chloride) 100 mls @ 200 mls/hr IV Q6H [facility] Last Infusion: 11/26/24 09:31 Dose: Infused Documented By: YAW Doxycycline Hyclate 100 mg/ (Sodium Chloride) 250 mls @ 166.67 mls/hr IV Q12H [facility] Last Admin: 11/26/24 09:31 Dose: 166.67 mls/hr Documented By: YAW Insulin Glargine (Insulin Glargine,Hum.Rec.Anlog 100 Unit/Ml 10 Ml Vial) 10 unit SUBCUT BEDTIME [facility] Last Admin: 11/25/24 23:13 Dose: 10 unit Documented By: LEIF Insulin Human Lispro (Insulin Lispro 100 Unit/Ml 3 Ml Vial) 0 unit SUBCUT QIDACHS [facility]; Protocol Last Admin: 11/26/24 07:22 Dose: Not Given Documented By: YAW Non-Admin Reason: No Insulin Coverage Magnesium Hydroxide (Milk Of Magnesia 30 Ml Oral.Susp) 30 ml PO DAILY PRN PRN Reason: Constipation Melatonin (Melatonin 3 Mg Tablet) 6 mg PO BEDTIME PRN PRN Reason: Insomnia Metformin HCl (Metformin Hcl Er 500 Mg Tab.Er.24h) 1,000 mg PO BID [facility] Ondansetron HCl (Ondansetron Hcl 4 Mg/2 Ml Vial) 4 mg IVPUSH Q8H PRN PRN Reason: Nausea and Vomiting Sodium Chloride (0.9 % Sodium Chloride Flush 3 Ml Syringe) 3 ml IVFLUSH QSHIFT [facility] Last Admin: 11/26/24 08:16 Dose: 3 ml Documented By: YAW Valsartan (Valsartan 320 Mg Tablet) 320 mg PO DAILY [facility]; Protocol Labs 11/26/24 07:00 11/26/24 07:00 Labs: Laboratory Results - last 24 hr 11/25/24 11/25/24 11/25/24 16:58 16:59 20:29 MCV 82.5 MCH 26.4 L MCHC 32.0 RDW 17.0 H Plt Count 203 MPV 9.9 Immature Gran % (Auto) 0.5 H Neut % (Auto) 71.9 Lymph % (Auto) 15.9 L Merrick % (Auto) 9.9 Eos % (Auto) 1.4 Baso % (Auto) 0.4 Lymph # (Auto) 1.2 Merrick # (Auto) 0.8 Eos # (Auto) 0.1 Baso # (Auto) 0.0 Abs Immat Gran (auto) 0.04 H Absolute Neuts (auto) 5.5 Absolute Nucleated RBC 0.000 Nucleated RBC % (auto) 0.0 ESR 34 H Anion Gap 15 Estim Creat Clear Calc 83.6 Estimated GFR > 60 POC Glucose Random Glucose 131 H Lactic Acid 1.6 Calcium 9.7 Total Bilirubin 0.3 AST 22 ALT 9 Alkaline Phosphatase 90 C-Reactive Protein 1.79 H Total Protein 6.9 Albumin 3.9 Lipase 18 11/25/24 11/26/24 11/26/24 23:10 07:00 07:10 MCV 81.1 MCH 26.7 L MCHC 32.9 RDW 17.0 H Plt Count 192 MPV 9.6 Immature Gran % (Auto) 0.6 H Neut % (Auto) 66.8 Lymph % (Auto) 18.9 L Merrick % (Auto) 11.6 H Eos % (Auto) 1.7 Baso % (Auto) 0.4 Lymph # (Auto) 1.0 L Merrick # (Auto) 0.6 Eos # (Auto) 0.1 Baso # (Auto) 0.0 Abs Immat Gran (auto) 0.03 Absolute Neuts (auto) 3.5 Absolute Nucleated RBC 0.000 Nucleated RBC % (auto) 0.0 ESR Anion Gap 13 Estim Creat Clear Calc 102.6 Estimated GFR > 60 POC Glucose 103 130 H Random Glucose 124 H Lactic Acid Calcium 9.4 Total Bilirubin AST ALT Alkaline Phosphatase C-Reactive Protein Total Protein Albumin Lipase Assessment and Plan (1) Cellulitis of left foot: Status: Acute Plan This is a 58-year-old male with pertinent history of insulin-dependent diabetes mellitus, left bundle branch block, nonischemic cardiomyopathy, hypertension, mood disorder who presents to the emergency department for evaluation of left foot swelling and pain d/t puncture wound from paper clip Puncture wound from paper clip, failed outpatient oral Abx, improving on IV continue iv zosyn and doxy, ID consult for possible dc with PO meds Diabetes resume lantus, and Januvia. hold metforfmin for now Hypertension continue norvasc, metoprolol, valsartan starting tomorrow Mood disorde abilify HLD Lipitor PVD ASA, plavix, lipitor, bp meds Med rec pending DVT prophylaxis: Lovenox Full code Admit as inpatient and will require two night minimum hospital stay for IV antibiotics (as above), which is not possible in a lesser acute setting. Quality Stroke Does the patient have a stroke diagnosis?: No VTE Prior VTE?: No VTE Risk Level:: Medical - moderate - high VTE Device Contraindication: Treatment Not Indicated VTE Drug Contraindication: N/A - Med Ordered
[2024-11-26] MEDS: ARIPiprazole 5 MG TABLET PO (11:04)
[2024-11-26] MEDS: amLODIPine Besylate 10 MG TABLET PO (11:04)
[2024-11-26] MEDS: Aspirin Enteric Coated 81 MG TABLET.DR PO (11:05)
[2024-11-26] MEDS: Atorvastatin Calcium 80 MG TABLET PO (11:05)
[2024-11-26 11:07] VITALS: BP 131/63; PULSE 78
[2024-11-26] MEDS: buPROPion HCl XL 300 MG TAB.ER.24H PO (11:09)
[2024-11-26] MEDS: DULoxetine HCl 30 MG CAPSULE.DR PO ×2 (11:09→21:06)
[2024-11-26] MEDS: Clopidogrel Bisulfate 75 MG TABLET PO (11:09)
[2024-11-26 11:21] LABS: Glucose, Whole Blood 228 mg/dL (60-115)
[2024-11-26] MEDS: Insulin Lispro 100 UNIT/ML 3 ML VIAL SUBCUT ×3 (11:28→21:11)
--- NOTE | 2024-11-26 13:20 | W.PM.IDCN ---
History of Present Illness Data of Consult Service Date: 11/26/24 Requesting physician: Joel Osuna Primary Care Provider: Manpreet Tabares MD [facility] Reason for consult: left foot redness He presents with redness dorsal aspect left foot. He stepped on elinor seven days ago and noticed foot became redder over last day. He has no bacteremia. He has XRay unremarkable of left foot. Review of Systems Review of Systems: Yes all other systems are reviewed and are negative PMFSH Past Medical History Medical History History of ETT Thyroid nodule Orthostatic hypertension Degenerative joint disease Cystic disease of kidney Bacteremia Diabetic neuropathy Coronary thrombosis Bacterial pneumonia Hypercholesteremia Major depressive disorder, recurrent severe without psychotic features ILD (interstitial lung disease) Heart disease, unspecified Preop cardiovascular exam Osteomyelitis Diabetic foot ulcer LBBB (left bundle branch block) Type 2 diabetes mellitus with foot ulcer HTN (hypertension) Suicidal ideation Depression Family History Family History Father Neck malignant neoplasm Family history: reviewed and not pertinent Surgical History Surgical History H/O cardiac catheterization Hx of fusion of cervical spine S/P spinal surgery H/O: vasectomy Social History Social History Household Members: Spouse Housing: House Do you presently have visiting nurse or other home services: No Unable to assess alcohol history related to: Unknown Alcohol intake: never Patient Tobacco Use Status: Never used Tobacco e-Cigarette/Vaping Use: Never Used Second Hand Smoke Exposure: No Substance Use Type: Marijuana Advance Directives Date on File: 04/11/22 service: No Current occupational status: employed Sexual orientation: Straight/Heterosexual Meds Allergies Allergy/AdvReac Type Severity Reaction Status Date / Time codeine [CODEINE] Allergy Unknown delayed Verified 11/25/24 16:29 responses 02/24/17 Active Medications: Current Medications Acetaminophen (Acetaminophen 325 Mg Tablet) 650 mg PO Q6H PRN PRN Reason: Pain, Mild 1-3,fever,headache Amlodipine Besylate (Amlodipine Besylate 10 Mg Tablet) 10 mg PO DAILY [facility]; Protocol Last Admin: 11/26/24 11:04 Dose: 10 mg Aripiprazole (Aripiprazole 5 Mg Tablet) 5 mg PO DAILY [facility] Last Admin: 11/26/24 11:04 Dose: 5 mg Aspirin (Aspirin Enteric Coated 81 Mg Tablet.) 81 mg PO DAILY [facility] Last Admin: 11/26/24 11:05 Dose: 81 mg Atorvastatin Calcium (Atorvastatin Calcium 80 Mg Tablet) 80 mg PO DAILY [facility] Last Admin: 11/26/24 11:05 Dose: 80 mg Bupropion HCl (Bupropion Hcl Xl 300 Mg Tab.Er.24h) 300 mg PO DAILY [facility] Last Admin: 11/26/24 11:09 Dose: 300 mg Calcium Carbonate (Calcium Carbonate 750 Mg Tab.Chew) 750 mg PO Q4H PRN PRN Reason: Heartburn Clopidogrel Bisulfate (Clopidogrel Bisulfate 75 Mg Tablet) 75 mg PO DAILY [facility] Last Admin: 11/26/24 11:09 Dose: 75 mg Dextrose (Dextrose 50 % 25 Gm/50 Ml Syringe) 25 gm IVPUSH Q15M PRN; Protocol PRN Reason: per Hypoglycemia Standing Ord. Duloxetine HCl (Duloxetine Hcl 30 Mg Capsule.) 30 mg PO BID [facility] Last Admin: 11/26/24 11:09 Dose: 30 mg Enoxaparin Sodium (Enoxaparin Sodium 40 Mg/0.4 Ml Syringe) 40 mg SUBCUT Q24H [facility] Last Admin: 11/25/24 23:13 Dose: 40 mg Gabapentin (Gabapentin 400 Mg Capsule) 800 mg PO BEDTIME [facility] Glucose (Glucose Gel 15 Gm Gel..Gram.) 15 gm PO Q15M PRN; Protocol PRN Reason: per Hypoglycemia Standing Ord. Piperacillin Sod/Tazobactam (Sod 4.5 gm/ Sodium Chloride) 100 mls @ 200 mls/hr IV Q6H [facility] Last Infusion: 11/26/24 09:31 Dose: Infused Doxycycline Hyclate 100 mg/ (Sodium Chloride) 250 mls @ 166.67 mls/hr IV Q12H [facility] Last Infusion: 11/26/24 11:12 Dose: Infused Insulin Glargine (Insulin Glargine,Hum.Rec.Anlog 100 Unit/Ml 10 Ml Vial) 10 unit SUBCUT BEDTIME [facility] Last Admin: 11/25/24 23:13 Dose: 10 unit Insulin Human Lispro (Insulin Lispro 100 Unit/Ml 3 Ml Vial) 0 unit SUBCUT QIDACHS [facility]; Protocol Last Admin: 11/26/24 11:28 Dose: 4 unit Magnesium Hydroxide (Milk Of Magnesia 30 Ml Oral.Susp) 30 ml PO DAILY PRN PRN Reason: Constipation Melatonin (Melatonin 3 Mg Tablet) 6 mg PO BEDTIME PRN PRN Reason: Insomnia Ondansetron HCl (Ondansetron Hcl 4 Mg/2 Ml Vial) 4 mg IVPUSH Q8H PRN PRN Reason: Nausea and Vomiting Sitagliptin Phosphate (Sitagliptin Phosphate 50 Mg Tablet) 50 mg PO DAILY [facility] Sodium Chloride (0.9 % Sodium Chloride Flush 3 Ml Syringe) 3 ml IVFLUSH QSHIFT [facility] Last Admin: 11/26/24 08:16 Dose: 3 ml Valsartan (Valsartan 320 Mg Tablet) 320 mg PO DAILY [facility]; Protocol Home Medications ?Medication ?Instructions ?Recorded ?Confirmed ?Last Taken ?Type sitagliptin phosphate 50 mg tablet 50 mg PO DAILY 11/15/22 11/26/24 11/25/24 History () aspirin 81 mg capsule 81 mg PO DAILY 11/16/24 11/26/24 11/25/24 History atorvastatin 80 mg tablet 80 mg PO DAILY 11/16/24 11/26/24 11/25/24 History clopidogrel 75 mg tablet 75 mg PO DAILY 11/16/24 11/26/24 11/25/24 History doxycycline hyclate 100 mg capsule 100 mg PO BID 11/16/24 11/26/24 11/25/24 History insulin glargine 100 unit/mL (3 14 unit subcut BEDTIME 11/16/24 11/26/24 11/24/24 History mL) subcutaneous pen (Lantus Solostar U-100 Insulin) valsartan 320 mg tablet 320 mg PO DAILY 11/16/24 11/26/24 11/25/24 History gabapentin 400 mg capsule 800 mg PO BEDTIME 11/25/24 11/26/24 11/24/24 History metformin 500 mg tablet,extended 1,000 mg PO BID 11/25/24 11/26/24 11/25/24 History release 24 hr Physical Exam Vital Signs: Vital Signs: Last Vital Signs Temp 97.5 F 11/26/24 07:33 Pulse 78 11/26/24 11:07 Resp 18 11/26/24 07:33 BP 131/63 11/26/24 11:07 Pulse Ox 97 11/26/24 07:33 O2 Del Method Room Air 11/26/24 07:33 BMI result Body Mass Index 26.9 Extrem: Other: left dorsal foot area reddened, plantar below callus area no purulence pulses intact no neuropathy Results Labs 11/26/24 07:00 11/26/24 07:00 Labs: Short CBC 11/25/24 11/26/24 Range/Units 16:59 07:00 WBC 7.7 5.2 (4.8-10.8) X10*3/uL Hgb 12.5 L 12.3 L (14.0-18.0) g/dl Hct 39.1 L 37.4 L (42.0-52.0) % Plt Count 203 192 (160-400) X10*3/uL BMP 11/25/24 11/26/24 16:59 07:00 Sodium 142 146 H Potassium 4.5 3.9 Chloride 109 H 113 H Carbon Dioxide 23 24 BUN 22 H 16 Creatinine 0.92 0.75 Calcium 9.7 9.4 Liver Function 11/25/24 Range/Units 16:59 Total Bilirubin 0.3 (0.0-1.0) mg/dL AST 22 (5-37) U/L ALT 9 (0-40) U/L Alkaline Phosphatase 90 (39-117) U/L Albumin 3.9 (3.5-5.0) g/dL Assessment and Plan (1) Cellulitis of left foot: Status: Acute Plan He is on Zosyn and Doxycycline and is improving. He declines any imaging to look for abscess. He feels well. Within the next day or two would give po Augmentin and Doxycycline for a week. Follow with PCP.
[2024-11-26 15:41] VITALS: BP 129/62; PULSE 90; RESP 17; TEMP 36.2; O2SAT 92
[2024-11-26 16:06] LABS: Glucose, Whole Blood 168 mg/dL (60-115)
--- NOTE | 2024-11-26 17:09 | HO.WOUND ---
Wound Consult: Initial 58yr old? admitted to [facility] [place] on 11/25/24- See progress notes and H&P for detailed history.? Wound consult placed for Left Plantar foot.? Patient agreeable to assessment and photo documentation.? Currently plantar foot assessed - plantar site observed for red dark pigmentation but no open wound at this time. No induration no swelling and no erythema noted. The dorsal side of the foot is noted for red erythema however patient reports it has significantly improved since admission. The plantar site from his traumatic injury is currently healed - there is no open wound and therefore no topical recommendations are needed at this time. Patient educated about the importance of blood sugar control and wound healing. He was educated about his A1C and the concerns with poor diabetic control. He reports he does not see a checker - he was educated on the benefits of a checker given his diabetes and neuropathy - he states understanding. He was educated to perform full foot checked at least twice a week to assess for injury. He was educated to seek treatment at the first sign of injury to his feet given his poor sugar control. He reports understanding. No topical recommendations needed at this time. Re-consult wound care Nurse for wound deterioration or wound changes.
[2024-11-26 19:39] VITALS: BP 136/72; PULSE 84; RESP 18; TEMP 36.6; O2SAT 97
[2024-11-26 20:07] LABS: Glucose, Whole Blood 225 mg/dL (60-115)
[2024-11-26] MEDS: Gabapentin 400 MG CAPSULE 800 MG PO (21:07)
[2024-11-26] MEDS: Insulin Glargine,Hum.rec.anlog 100 UNIT/ML 10 ML VIAL 10 UNIT SUBCUT (21:09)
[2024-11-27] MEDS: Piperacillin Sodium/Tazobactam 4.5 GM in 0.9 % Sodium Chloride 100 ML IV ×2 (01:08→08:03)
--- NOTE | 2024-11-27 02:03 | PC.NURSE ---
This RN assumed care last night at 1900, Pt AOx4, pleasant, calm & cooperative, Denies pain at this time, Lung sounds clear, respirations even and non-labored with no apparent distress noted at this time. BSx4, ambulates in room independently. Left foot plantar injury [employer], skin is intact, no drainage noted, Redness and edema have improved per pt. VSS. Meds given per MAR. Will continue to reassess.
[2024-11-27 03:30] VITALS: BP 135/67; PULSE 78; RESP 16; TEMP 36; O2SAT 97
[2024-11-27 07:27] LABS: Glucose, Whole Blood 121 mg/dL (60-115)
[2024-11-27 08:03] VITALS: BP 113/69
[2024-11-27] MEDS: Aspirin Enteric Coated 81 MG TABLET.DR PO (08:03)
[2024-11-27] MEDS: 0.9 % Sodium Chloride Flush 3 ML SYRINGE IVFLUSH (08:03)
[2024-11-27] MEDS: Clopidogrel Bisulfate 75 MG TABLET PO (08:03)
[2024-11-27] MEDS: SITagliptin Phosphate 50 MG TABLET PO (08:03)
[2024-11-27] MEDS: Atorvastatin Calcium 80 MG TABLET PO (08:03)
[2024-11-27] MEDS: amLODIPine Besylate 10 MG TABLET PO (08:03)
[2024-11-27 08:04] VITALS: BP 113/69
[2024-11-27] MEDS: ARIPiprazole 5 MG TABLET PO (08:04)
[2024-11-27] MEDS: buPROPion HCl XL 300 MG TAB.ER.24H PO (08:04)
[2024-11-27] MEDS: Valsartan 320 MG TABLET PO (08:04)
[2024-11-27] MEDS: DULoxetine HCl 30 MG CAPSULE.DR PO (08:04)
[2024-11-27 08:10] VITALS: BP 113/69; PULSE 71; RESP 12; TEMP 36.1; O2SAT 97
[2024-11-27] MEDS: Doxycycline Hyclate 100 MG in 0.9 % Sodium Chloride 250 ML 166.67 MG IV (08:39)
--- NOTE | 2024-11-27 11:21 | PM.DS ---
DS: Providers Provider Date of Service: 11/27/24 Date of admission: 11/25/24 22:13 Date of discharge: 11/27/24 Primary care physician: Manpreet Tabares MD Consults: 11/26/24 01:17 Consult to Wound Care Routine Reason for consultation: diabetic ulcer to left foot. 11/26/24 10:51 Consult to Infectious Diseases Routine Consulting Provider: [facility] [place] [facility] Reason for consultation: pucture wound 11/27/24 00:43 Consult to Wound Care Routine Reason for consultation: ulcer to Left foot Attending physician on discharge: Cipriano Perez Discharging clinician: Tiffanie Gil DS: Diagnosis Discharge Diagnosis (1) Cellulitis of left foot: Status: Acute DS: Summary Hospital Course Hospital Course: From H&P on the day of admission This is a 58-year-old male with pertinent history of insulin-dependent diabetes mellitus, left bundle branch block, nonischemic cardiomyopathy, hypertension, mood disorder who presents to the emergency department for evaluation of left foot swelling and pain. Patient was seen in the ER 1 day prior to presentation and discharged home on p.o. antibiotics. Patient states he noticed increased swelling and redness of his left foot so he decided to come back to the ER. Also has been complaining of chills but no documented temperature. Has associated pain with ambulation of left foot. Patient states he stepped on a staple about 4 days ago and since then he has had redness, swelling and pain of his left foot. No chest pain, palpitations, shortness of breath, abdominal pain, changes in urinary or bowel habits. In the emergency department, foot x-ray without any acute abnormality. Patient given empiric IV antibiotics in the ER Puncture wound from staple, failed outpatient oral Abx redness and pain improving. Has remained afebrile, no leukocytosis. X-ray unremarkable. Patient declines further imaging. Blood cultures have remained negative, patient is able to ambulate independently. Patient requesting to be discharged home as tomorrow is his 59th birthday. Discussed daily wound checks and strict return precautions including fever, drainage, increasing redness or swelling. Recommended to call PCP to schedule follow-up appointment in the next week or 2. Keep wound clean and dry. Seen by Infectious Disease who recommended 7 days of oral Augmentin and doxycycline. Time Attestation Discharge Coordination Time (in mins): 32 Quality: Safe Use of Opioids Does Pt have an Active Cancer Diagnosis on the Problem List?: No Quality: Stroke Does the patient have a stroke diagnosis?: No Physical Exam Vital Signs: Vital Signs: Last Vital Signs Temp 97.0 F 11/27/24 08:10 Pulse 71 11/27/24 08:10 Resp 12 11/27/24 08:10 BP 113/69 11/27/24 08:10 Pulse Ox 97 11/27/24 08:10 O2 Del Method Room Air 11/27/24 08:10 BMI result Body Mass Index 26.9 Const: General: cooperative, comfortable, no acute distress, alert and awake Nutritional Appearance: average body habitus Orientation/consciousness: patient oriented x3 Resp: Effort & Inspection: normal respiratory effort, able to speak in complete sentences, no respiratory distress and no use of accessory muscles Cardio: Rate: regular rate Skin: Other: no drainage, fluctuance or induration Neuro: General: patient oriented x3 DS: Data Data Completed and Pending Completed studies during hospitalization [Text1]: Procedures Drainage of Left Foot Subcutaneous Tissue and Fascia, Open Approach (04/10/22) Excision of Left Metatarsal, Open Approach, Diagnostic (04/10/22) Insertion of Infusion Device into Superior Vena Cava, Percutaneous Approach (04/10/22) Other Electroconvulsive Therapy (03/07/23) Ultrasonography of Superior Vena Cava, Guidance (04/10/22) Labs on day of discharge: Laboratory Results - last 24 hr 11/26/24 11/26/24 11/26/24 11:17 16:00 20:03 POC Glucose 228 H 168 H 225 H 11/27/24 07:19 POC Glucose 121 H Preliminary micro results at discharge 11/25/24 20:29 Blood Culture - Preliminary Blood - Venous No growth after 24 hours. 11/25/24 16:58 Blood Culture - Preliminary Blood - Venous No growth after 24 hours. Discharge Plan Discharge Anticipated Discharge Date/Time: 11/27/24 11:26 Patient Disposition: Home, Self-Care Discharge Diagnosis: cellulitis of left foot Referrals: Manpreet Tabares MD [Primary Care Provider] - 1 Week Discharge Medications: New amoxicillin-pot clavulanate 875-125 mg tablet 1 tab PO Q12H 7 Days Qty: 14 0RF Continued bupropion HCl 300 mg tablet extended release 24 hr 1 tab PO DAILY Qty: 30 0RF Patient Comments: Patient stated he restarted his medications over a week ago. He brought in his pill bottles to show me what he is currently taking. Rx Instructions: Last filled February 20, 2024 Januvia 50 mg Tablet 50 mg PO DAILY Patient Comments: Patient stated he restarted his medications over a week ago. He brought in his pill bottles to show me what he is currently taking. Rx Instructions: Last filled 03/29/24. amlodipine 10 mg Tablet 10 mg PO DAILY Qty: 30 0RF Protocol: Hold for SBP< HOLD for SBP < : 90 Patient Comments: Patient stated he restarted his medications over a week ago. He brought in his pill bottles to show me what he is currently taking. Rx Instructions: Last filled 02/20/24. gabapentin 400 mg capsule 800 mg PO BEDTIME metformin 500 mg tablet extended release 24 hr 1,000 mg PO BID doxycycline hyclate 100 mg Capsule 100 mg PO BID 7 Days Qty: 14 0RF Rx Instructions: Last filled 09/28/24 clopidogrel 75 mg Tablet 75 mg PO DAILY Patient Comments: Patient stated he restarted his medications over a week ago. He brought in his pill bottles to show me what he is currently taking. Rx Instructions: Last filled 10/18/24 valsartan 320 mg Tablet 320 mg PO DAILY Patient Comments: Patient stated he restarted his medications over a week ago. He brought in his pill bottles to show me what he is currently taking. Rx Instructions: Last filled March 2024. aspirin 81 mg Capsule 81 mg PO DAILY Patient Comments: Patient stated he restarted his medications over a week ago. He brought in his pill bottles to show me what he is currently taking. Rx Instructions: Last filled 10/18/24 atorvastatin 80 mg Tablet 80 mg PO DAILY Rx Instructions: Last filled 02/19/24 #90 insulin glargine [Lantus Solostar U-100 Insulin] 100 unit/mL (3 mL) Insulin Pen 14 unit SUBCUT BEDTIME Patient Comments: Patient stated he restarted his medications over a week ago. He brought in his pill bottles to show me what he is currently taking. duloxetine 30 mg capsule,delayed release(DR/EC) 30 mg PO BID Qty: 30 0RF aripiprazole 5 mg tablet 5 mg PO DAILY Qty: 30 0RF Discontinued levofloxacin 500 mg tablet 500 mg PO DAILY 7 Days Qty: 7 0RF cephalexin 500 mg capsule 500 mg PO Q8H 7 Days Qty: 21 0RF Discharge Orders: Discharge Order (Routine); Ordered 11/27/24 Ordered By: Tiffanie Gil Activity on Discharge: As tolerated Stand Alone Forms: Patient Portal Discharge page Print Language: Kyrgyz Care Plan Goals: see below Health Concerns: Left foot cellulitis with puncture wound Plan of Treatment: Complete entire course of antibiotics as prescribed Monitor foot wound at least once per day. Call PCP or return to the emergency department with any fever, increased redness, swelling, drainage from wound Call to schedule follow-up appointment with your PCP in the next 1 to 2 weeks for wound check Keep foot wound clean and dry Assessment: see discharge summary
[2024-11-27 11:33] LABS: Glucose, Whole Blood 287 mg/dL (60-115)
[2024-11-27] MEDS: Insulin Lispro 100 UNIT/ML 3 ML VIAL SUBCUT (11:43)
--- NOTE | 2024-11-27 12:27 | MHC.CM.PN ---
PT WILL DC HOME TODAY WITH NO SERVICES VIA SELF-TRANSPORT
== END 2024-11-27 13:22 | disposition home or self-care (01) | DRG 383 ==
LOC: HO.ED 21:09 → HO.S3 22:35 → HO.EDOVER 23:04 → HO.S3 23:39
PROVIDERS: Internal Medicine; Physician Assistant; Admitting Provider Student in an Organized Health Care Education/Training Program; Emergency Provider Internal Medicine; PCP Family Medicine; Visit Provider Physician Assistant Medical
DX: L03.116 Cellulitis of left lower limb (principal); I42.8 Other cardiomyopathies; S91.332A Puncture wound without foreign body, left foot, initial encounter; W45.8XXA Other foreign body or object entering through skin, initial encounter; E11.51 Type 2 diabetes mellitus with diabetic peripheral angiopathy without gangrene; I10 Essential (primary) hypertension; F39 Unspecified mood [affective] disorder; Z79.4 Long term (current) use of insulin; Z79.84 Long term (current) use of oral hypoglycemic drugs; Z79.899 Other long term (current) drug therapy
CPT/HCPCS: 36415; 80048; 80053; 82947; 83605; 83690; 85025; 85652; 86140; 87040; 99221; 99285; J0692; J1271; J1650; J2543; J3370

== ENCOUNTER → 2024-11-25 22:13 | Outpatient (BNV) | payer OTHER, SELFPAY | PROVIDERS: Admitting Provider Student in an Organized Health Care Education/Training Program; Emergency Provider Internal Medicine; PCP Family Medicine; Visit Provider Internal Medicine | DX: L03.116 Cellulitis of left lower limb (principal) | CPT/HCPCS: 99222 ==

== ENCOUNTER → 2024-11-25 22:13 | Outpatient (BNV) | payer OTHER, SELFPAY | PROVIDERS: Admitting Provider Student in an Organized Health Care Education/Training Program; Emergency Provider Internal Medicine; PCP Family Medicine; Visit Provider Student in an Organized Health Care Education/Training Program | DX: L03.116 Cellulitis of left lower limb (principal) | CPT/HCPCS: 99222; 99232; 99239 ==

== ENCOUNTER 2025-03-09 09:56 | Emergency (ER) | payer OTHER, SELFPAY ==
--- NOTE | 2025-03-09 | ECG_ITS ---
Test Reason : cp Blood Pressure : */* mmHG Vent. Rate : 86 BPM Atrial Rate : 86 BPM P-R Int : 140 ms QRS Dur : 82 ms QT Int : 372 ms P-R-T Axes : 42 25 90 degrees QTcB Int : 445 ms Normal sinus rhythm Nonspecific ST and T wave abnormality Abnormal ECG When compared with ECG of 24-Nov-2024 08:24, Left bundle branch block is no longer Present Referred By: Generic ED Physician Electronically Signed By: ADELAIDA PALOMO
--- NOTE | ~2025-03-09 | XR_ITS ---
EXAMINATION: XR CHEST CLINICAL INFORMATION: CP COMPARISON: December 31, 2023. TECHNIQUE: 2 views of the chest were obtained. FINDINGS: No consolidation, pleural effusion or pneumothorax. No hyperinflation. Cardiomediastinal silhouette size is normal. S-shaped curvature of the thoracolumbar spine. Multilevel thoracolumbar spondylosis. Degenerative changes in the shoulders. Metallic hardware from a posterior cervical thoracic fusion no fully included in the [id number] and a 2 segment anterior cervical fusion. Questionable old traumatic deformity distal left clavicle near the acromioclavicular joint.. XR/XR chest 2V IMPRESSION: No acute airspace disease. Scoliosis and spondylosis, thoracolumbar spine. Electronically signed by: Santi Benitez MD 03/09/2025 12:08 PM EDT
[2025-03-09 10:12] VITALS: BP 180/86; PULSE 91; RESP 18; TEMP 36.7; O2SAT 98; BMI 26.6
[2025-03-09 10:12] LABS: MANUAL DIFF FLAG NO
[2025-03-09 10:17] LABS: Glucose, Whole Blood 342 mg/dL (60-115)
[2025-03-09 10:20] LABS: Hematocrit 48.3 % (42.0-52.0); Hemoglobin 15.4 g/dl (14.0-18.0); Imm Gran Abs Auto 0.03 X10*3/uL (0.00-0.03); Imm Gran Pct Auto 0.5 % (0.0-0.4); Lymphocytes Absolute Auto 1.4 X10*3/uL (1.2-4.9); Mean Corpuscular HGB Conc 31.9 g/dl (31.0-36.0); Mean Corpuscular Hemoglobin 26.6 pg (27.0-33.0); Mean Corpuscular Volume 83.4 fL (80.0-98.0); NRBC Abs Auto 0.000 X10*3/uL (0.0-0.012); NRBC Pct Auto 0.0 /100WBC (0.0-0.2); Platelet Count 199 X10*3/uL (160-400); Red Blood Count 5.79 X10*6/uL (4.60-5.80); White Blood Count 5.9 X10*3/uL (4.8-10.8)
[2025-03-09 10:43] LABS: Troponin-I High Sensitivity 3.2 ng/L (<3.5-35.0)
[2025-03-09 10:52] LABS: Anion Gap 14 (12-20); Blood Urea Nitrogen 24 mg/dL (9-16); Calcium 10.0 mg/dL (8.4-10.2); Carbon Dioxide 28 mmol/L (22-29); Chloride 102 mmol/L (96-108); Creatinine Clr Calc Pharmacy 80.0; Estimated Glomerular Filt Rate > 60; Potassium 4.5 mmol/L (3.3-5.1); Sodium 139 mmol/L (135-145)
[2025-03-09 11:21] VITALS: BP 168/84; PULSE 84; RESP 13; TEMP 36.8; O2SAT 99
--- NOTE | 2025-03-09 11:27 | ED.CHESTPAIN ---
HPI - Chest Pain General Chief Complaint: Chest Pain Stated Complaint: Chest Pain Since 0900 Time Seen by Provider: 03/09/25 11:20 History of Present Illness ED Provider: Dr. Barber HPI narrative: 59 y/o M patient; PMH ROBI, ILD, T2DM, CAD, hx cardiomyopathy with reduced EF, HTN, HLD; presents from work reporting left-sided chest pain radiating into his left arm since this morning. Associated with shortness of breath (described as a pleuritic pain when taking a deep breath) and lightheadedness. He states he was driving and at rest when symptoms started. He denies: nausea or vomiting, abdominal pain, fever or chills. He denies prior similar symptoms. He reports social alcohol use, denies recreational drug use, denies smoking. No significant family cardiac history. Prior Cardiac Work Up: ECHO 2016: Normal EF, no regional WMA ECHO 2021: EF 50 - 55% with regional wall motion abnormalities in the anterior septal and lateral vasquez Nuclear stress test 02/2022 with normal myocardial perfusion imaging Cardiac cath 05/2022 without significant disease Related Data Home Medications ?Medication ?Instructions ?Recorded ?Confirmed sitagliptin phosphate 50 mg tablet 50 mg PO DAILY 11/15/22 11/26/24 (Januvia) aspirin 81 mg capsule 81 mg PO DAILY 11/16/24 11/26/24 atorvastatin 80 mg tablet 80 mg PO DAILY 11/16/24 11/26/24 clopidogrel 75 mg tablet 75 mg PO DAILY 11/16/24 11/26/24 insulin glargine 100 unit/mL (3 14 unit subcut BEDTIME 11/16/24 11/26/24 mL) subcutaneous pen (Lantus Solostar U-100 Insulin) valsartan 320 mg tablet 320 mg PO DAILY 11/16/24 11/26/24 gabapentin 400 mg capsule 800 mg PO BEDTIME 11/25/24 11/26/24 metformin 500 mg tablet,extended 1,000 mg PO BID 11/25/24 11/26/24 release 24 hr Previous Rx's ?Medication ?Instructions ?Recorded bupropion HCl 300 mg 24 hr tablet, 1 tab PO DAILY #30 tabs 03/14/22 extended release amlodipine 10 mg tablet 10 mg PO DAILY #30 tabs 11/22/22 duloxetine 30 mg capsule,delayed 30 mg PO BID #30 caps 11/19/24 release aripiprazole 5 mg tablet 5 mg PO DAILY as directed #30 tabs 11/23/24 amoxicillin 875 mg-potassium 1 tab PO Q12H 7 days #14 tabs 11/27/24 clavulanate 125 mg tablet doxycycline hyclate 100 mg capsule 100 mg PO BID 7 days #14 caps 11/27/24 Allergies Allergy/AdvReac Type Severity Reaction Status Date / Time codeine (CODEINE) Allergy Unknown delayed Verified 03/09/25 10:14 responses 02/24/17 Review of Systems Review of Systems: Yes all other systems are reviewed and are negative [facility] Past Medical History Attestation statement: The following information was validated with the patient. Source: old records reviewed Medical History History of ETT Thyroid nodule Orthostatic hypertension Degenerative joint disease Cystic disease of kidney Bacteremia Diabetic neuropathy Coronary thrombosis Bacterial pneumonia Hypercholesteremia Major depressive disorder, recurrent severe without psychotic features ILD (interstitial lung disease) Heart disease, unspecified Preop cardiovascular exam Osteomyelitis Diabetic foot ulcer LBBB (left bundle branch block) Type 2 diabetes mellitus with foot ulcer HTN (hypertension) Suicidal ideation Depression Surgical History H/O cardiac catheterization Hx of fusion of cervical spine S/P spinal surgery H/O: vasectomy Family History Family History Father Neck malignant neoplasm Social History Social History Household Members: Spouse Housing: House Do you presently have visiting nurse or other home services: No Unable to assess alcohol history related to: Unknown Alcohol intake: never Patient Tobacco Use Status: Never used Tobacco e-Cigarette/Vaping Use: Never Used Second Hand Smoke Exposure: No Substance Use Type: Marijuana Advance Directives: Yes Advance Directives on File: Yes Advance Directives Date on File: 04/11/22 Do you have a plan to hurt others: No Plan service: No Current occupational status: employed Sexual orientation: Straight/Heterosexual Physical Exam Vital Signs: Vital Signs: Last Vital Signs Temp 97.6 F 03/09/25 16:49 Pulse 77 03/09/25 16:49 Resp 16 03/09/25 16:49 BP 129/64 03/09/25 16:49 Pulse Ox 97 03/09/25 16:49 O2 Del Method Room Air 03/09/25 16:49 BMI result Body Mass Index 26.6 Patient is afebrile and hemodynamically stable Const: General: cooperative and no acute distress Orientation/consciousness: patient oriented x3 HEENT: Head: Yes normal to inspection and Yes atraumatic Eyes: Other: Left eye with + scleral injection Pupils: Equal, round and reactive pupils present EOM: EOMs intact bilaterally Neck: Neck: Yes normal visual inspection and Yes supple Chest: Chest palpation & inspection: normal inspection of the chest and normal palpation of entire chest wall Resp: Effort & Inspection: normal respiratory effort, able to speak in complete sentences and no cough Auscultation: clear to auscultation bilaterally Cardio: Rate: regular rate Rhythm: regular rhythm Peripheral pulses: Peripheral pulses 2+ throughout GI: Inspection: Yes normal to inspection, No Abdominal wall edema and No distended Palpation (GI): Soft to palpation, not firm, nontender, no guarding and not rigid Auscultation: normal bowel sounds Back/Spine/Pelvis: Back: No back tenderness Neuro: General: patient oriented x3 Cranial nerves: Yes Equal, round and reactive pupils present Course Course Course Narrative: Patient is afebrile and hemodynamically stable. Will obtain EKG, CXR, and laboratory studies. Patient states left eye scleral injection is 2/2 to diabetic retinal procedure complication. EKG independently interpreted by myself as NSR 86BPM with resolution of LBBB. Labs reviewed. No significant leukocytosis. No significant anemia. Hyperglycemia 342. Anion gap 14. Initial troponin 3.2, will repeat in 2 hours from initial. CXR is independently interpreted by myself as NAD. No evidence of pneumonia or pneumothorax. Trialed nitroglycerin as patient states symptoms remain unchanged. No effect from nitroglycerin. Labs without evidence of DKA or HHS. Pure hyperglycemia. Repeat troponin remains flat at 2.9. COVID negative. D-dimer negative at 187. With x2 negative troponin, negative d-dimer suspect other causes of chest wall discomfort than cardiac. Repeat EKG remains unchanged. Independently interpreted by myself as NSR 70BPM with normal intervals. Plan: Discharge to home with PCP follow up Return precautions given Medications Administered Discontinued Medications Generic Name Dose Route Start Last Admin Trade Name Freq PRN Reason Stop Dose Admin Acetaminophen 975 mg 03/09/25 14:44 03/09/25 15:01 Acetaminophen 325 Mg Tablet PO 03/09/25 14:45 975 mg ONCE ONE Administration Nitroglycerin 0.4 mg 03/09/25 12:22 03/09/25 12:58 Nitroglycerin 0.4 Mg Tab.Subl SUBLINGUAL 03/09/25 12:23 1 tab ONCE ONE Administration Medical Decision Making Lab Data 03/09/25 10:09 03/09/25 10:09 Labs: Lab Results 03/09/25 03/09/25 03/09/25 Range/Units 10:08 10:09 10:14 WBC 5.9 (4.8-10.8) X10*3/uL RBC 5.79 D (4.60-5.80) X10*6/uL Hgb 15.4 D (14.0-18.0) g/dl Hct 48.3 D (42.0-52.0) % MCV 83.4 (80.0-98.0) fL MCH 26.6 L (27.0-33.0) pg MCHC 31.9 (31.0-36.0) g/dl RDW 14.9 (11.0-16.0) % Plt Count 199 (160-400) X10*3/uL MPV 10.0 (9.4-12.4) fL Immature Gran % (Auto) 0.5 H (0.0-0.4) % Neut % (Auto) 66.7 (45-73) % Lymph % (Auto) 23.5 (20-40) % [place] % (Auto) 7.4 (2-11) % Eos % (Auto) 1.4 (0-4) % Baso % (Auto) 0.5 (0-2) % Lymph # (Auto) 1.4 (1.2-4.9) X10*3/uL [place] # (Auto) 0.4 (0.1-1.2) X10*3/uL Eos # (Auto) 0.1 (0.0-0.4) X10*3/uL Baso # (Auto) 0.0 (0.0-0.2) X10*3/uL Abs Immat Gran (auto) 0.03 (0.00-0.03) X10*3/uL Absolute Neuts (auto) 3.9 (2.0-8.3) x10*3/uL Absolute Nucleated RBC 0.000 (0.0-0.012) X10*3/uL Nucleated RBC % (auto) 0.0 (0.0-0.2) /100WBC D-Dimer High Sensitivty NG/ML VBG pH (7.32-7.43) VBG pCO2 mmHg VBG pO2 mmHg VBG HCO3 (22-26) mmol/L VBG O2 Saturation % VBG Base Excess mmol/L Sodium 139 (135-145) mmol/L Potassium 4.5 (3.3-5.1) mmol/L Chloride 102 (96-108) mmol/L Carbon Dioxide 28 (22-29) mmol/L Anion Gap 14 (12-20) BUN 24 H (9-16) mg/dL Creatinine 0.95 (0.5-1.4) mg/dL Estim Creat Clear Calc 80.0 Estimated GFR > 60 POC Glucose 342 H (60-115) mg/dL Random Glucose 403 H* (60-115) mg/dL Calcium 10.0 D (8.4-10.2) mg/dL Total Bilirubin 0.4 (0.0-1.0) mg/dL Direct Bilirubin 0.1 (0.0-0.5) mg/dL AST 20 (5-37) U/L ALT 14 (0-40) U/L Alkaline Phosphatase 125 H (39-117) U/L Troponin I High Sens 3.2 (<3.5-35.0) ng/L Total Protein 7.6 (6.5-8.0) g/dL Albumin 4.5 (3.5-5.0) g/dL Lipase 97 H (8-78) U/L Beta-Hydroxybutyrate (0.02-0.27) mmol/L COVID-19 (FERN) (Negative) COVID-19 Clin Com 03/09/25 03/09/25 03/09/25 Range/Units 14:13 14:14 14:19 WBC (4.8-10.8) X10*3/uL RBC (4.60-5.80) X10*6/uL Hgb (14.0-18.0) g/dl Hct (42.0-52.0) % MCV (80.0-98.0) fL MCH (27.0-33.0) pg MCHC (31.0-36.0) g/dl RDW (11.0-16.0) % Plt Count (160-400) X10*3/uL MPV (9.4-12.4) fL Immature Gran % (Auto) (0.0-0.4) % Neut % (Auto) (45-73) % Lymph % (Auto) (20-40) % [place] % (Auto) (2-11) % Eos % (Auto) (0-4) % Baso % (Auto) (0-2) % Lymph # (Auto) (1.2-4.9) X10*3/uL [place] # (Auto) (0.1-1.2) X10*3/uL Eos # (Auto) (0.0-0.4) X10*3/uL Baso # (Auto) (0.0-0.2) X10*3/uL Abs Immat Gran (auto) (0.00-0.03) X10*3/uL Absolute Neuts (auto) (2.0-8.3) x10*3/uL Absolute Nucleated RBC (0.0-0.012) X10*3/uL Nucleated RBC % (auto) (0.0-0.2) /100WBC D-Dimer High Sensitivty 187 NG/ML VBG pH 7.44 H (7.32-7.43) VBG pCO2 43 mmHg VBG pO2 33 mmHg VBG HCO3 29 H (22-26) mmol/L VBG O2 Saturation 54.0 % VBG Base Excess 4.8 mmol/L Sodium (135-145) mmol/L Potassium (3.3-5.1) mmol/L Chloride (96-108) mmol/L Carbon Dioxide (22-29) mmol/L Anion Gap (12-20) BUN (9-16) mg/dL Creatinine (0.5-1.4) mg/dL Estim Creat Clear Calc Estimated GFR POC Glucose (60-115) mg/dL Random Glucose (60-115) mg/dL Calcium (8.4-10.2) mg/dL Total Bilirubin (0.0-1.0) mg/dL Direct Bilirubin (0.0-0.5) mg/dL AST (5-37) U/L ALT (0-40) U/L Alkaline Phosphatase (39-117) U/L Troponin I High Sens 2.9 (<3.5-35.0) ng/L Total Protein (6.5-8.0) g/dL Albumin (3.5-5.0) g/dL Lipase (8-78) U/L Beta-Hydroxybutyrate 0.30 H (0.02-0.27) mmol/L COVID-19 (FERN) Negative (Negative) COVID-19 Clin Com See Note Radiology Impression Radiologist Impression: EXAMINATION: XR CHEST CLINICAL INFORMATION: CP COMPARISON: December 31, 2023. TECHNIQUE: 2 views of the chest were obtained. FINDINGS: No consolidation, pleural effusion or pneumothorax. No hyperinflation. Cardiomediastinal silhouette size is normal. S-shaped curvature of the thoracolumbar spine. Multilevel thoracolumbar spondylosis. Degenerative changes in the shoulders. Metallic hardware from a posterior cervical thoracic fusion no fully included in the [id number] and a 2 segment anterior cervical fusion. Questionable old traumatic deformity distal left clavicle near the acromioclavicular joint.. XR/XR chest 2V IMPRESSION: No acute airspace disease. Scoliosis and spondylosis, thoracolumbar spine. Electronically signed by: Santi Benitez MD 03/09/2025 12:08 PM EDT Discharge Plan Discharge Clinical Impression: Chest pain Patient Disposition: Home, Self-Care Instructions: Chest Pain (DC) Additional Instructions: You were seen today for chest pain. Your EKG of your heart, chest XR, two heart enzymes, and blood clot enzyme were all reassuring. Please follow up with your primary doctor to discuss your recent emergency department visit and for a re-evaluation. Return to the emergency department with any: Change or worsening in chest pain Difficulty breathing Passing out Prescriptions: No Action bupropion HCl 300 mg tablet extended release 24 hr 1 tab PO DAILY Qty: 30 0RF Patient Comments: Patient stated he restarted his medications over a week ago. He brought in his pill bottles to show me what he is currently taking. Rx Instructions: Last filled February 20, 2024 Januvia 50 mg Tablet 50 mg PO DAILY Patient Comments: Patient stated he restarted his medications over a week ago. He brought in his pill bottles to show me what he is currently taking. Rx Instructions: Last filled 03/29/24. amlodipine 10 mg Tablet 10 mg PO DAILY Qty: 30 0RF Protocol: Hold for SBP< HOLD for SBP < : 90 Patient Comments: Patient stated he restarted his medications over a week ago. He brought in his pill bottles to show me what he is currently taking. Rx Instructions: Last filled 02/20/24. gabapentin 400 mg capsule 800 mg PO BEDTIME metformin 500 mg tablet extended release 24 hr 1,000 mg PO BID amoxicillin-pot clavulanate 875-125 mg tablet 1 tab PO Q12H 7 Days Qty: 14 0RF doxycycline hyclate 100 mg Capsule 100 mg PO BID 7 Days Qty: 14 0RF Rx Instructions: Last filled 09/28/24 clopidogrel 75 mg Tablet 75 mg PO DAILY Patient Comments: Patient stated he restarted his medications over a week ago. He brought in his pill bottles to show me what he is currently taking. Rx Instructions: Last filled 10/18/24 valsartan 320 mg Tablet 320 mg PO DAILY Patient Comments: Patient stated he restarted his medications over a week ago. He brought in his pill bottles to show me what he is currently taking. Rx Instructions: Last filled March 2024. aspirin 81 mg Capsule 81 mg PO DAILY Patient Comments: Patient stated he restarted his medications over a week ago. He brought in his pill bottles to show me what he is currently taking. Rx Instructions: Last filled 10/18/24 atorvastatin 80 mg Tablet 80 mg PO DAILY Rx Instructions: Last filled 02/19/24 #90 insulin glargine [Lantus Solostar U-100 Insulin] 100 unit/mL (3 mL) Insulin Pen 14 unit SUBCUT BEDTIME Patient Comments: Patient stated he restarted his medications over a week ago. He brought in his pill bottles to show me what he is currently taking. duloxetine 30 mg capsule,delayed release(DR/EC) 30 mg PO BID Qty: 30 0RF aripiprazole 5 mg tablet 5 mg PO DAILY Qty: 30 0RF Print Language: Mexican
[2025-03-09 11:57] LABS: Alanine Aminotransferase 14 U/L (0-40); Albumin Level 4.5 g/dL (3.5-5.0); Alkaline Phosphatase 125 U/L (39-117); Aspartate Amino Transferase 20 U/L (5-37); Lipase 97 U/L (8-78); Total Protein 7.6 g/dL (6.5-8.0)
--- OUTSIDE RECORDS SUMMARY | 2025-03-09 12:28 | XMS_ITS | Clinical Summary ---
Author Organization [facility] it Address [address] [place] [address] Care Team Providers Care Cancer Registrar Name Role Phone Chong Rojas MD Primary Care Provider [phone] Medical History Medical History Date Comments Right hand pain DX:Right hand pa in Anxiety DX:Anxiety Depression DX:Depression Hyperlipidemia DX:Hyperlipidemi a High blood pressure DX:High bloo d pressure Diabetes mellitus (CMS/HCC V24, CMS/HCC V28) DX:Diabetes mellitus ([facility]) Family History Medical History Relation Name Comments [...] DTaP,Tdap,and Td Vaccines (1 - Tdap) 11/29/1983 Pneumococcal Vaccine: 50+ Ye ars (1 of 1 - PCV) 2014 Zoster Vaccines (1 of 2) 2014 COVID-19 Vaccine ( - 2023-2 5 season) 2024 Depression Screening 07/14/2024 Influenza Vaccine (#1) 2025 RSV Immunization Adult Patie nts (1 - 1-dose 75+ series) 11/29/2039 HIB Vaccines Aged Out No longer eligi ble based on patient's age to complete this topic HPV Vaccines Aged Out No longer eligi ble based on patient's age to complete this topic Hepatitis A Vaccines Aged Out No long er eligible based on patient's age to complete this topic Hepatitis B Vaccines Aged Out No long er eligible [...] age to complete this topic Care Teams Cancer Registrar Relationship Specialty Start Date End Date Chong Rojas MD [address] [place] [address] [address] [facility] PCP - General Internal Medicine 08/10/15
--- OUTSIDE RECORDS SUMMARY | 2025-03-09 12:28 | XMS_ITS | Clinical Summary ---
Author Organization [facility] Address [address] [place] [address] Care Team Providers Care Aircraft Designer Name Role Phone Crystal DENNIS MD, Chong Jett Primary Care Provider [phone] Allergies Active Allergy Reactions Criticality Noted Date [...] Maintenance Due Date Last Done Comments Hepatitis C Screening 1964 COVID-19 Vaccine (#1) 05/31/1965 Pneumococcal Vaccine (1 of 2 - PCV) 1970 Depression Screening 1976 Preventative Health Evaluation 1982 DTap / Tdap / Td (1 - Tdap) 11/29/1983 Colon Cancer Screening (Colonoscopy) 2009 Shingrix-Zoster Vaccine (1 of 2) 2014 Influenza Vaccine (#1) 2025 RSV Adult > 60+ Yrs or Pregn ant (1 - 1-dose 75+ series) 11/29/2039 Hepatitis B Vaccines Aged Out No long er eligible based on patient's age to complete this topic RSV Ped < 20 months Aged Out No longe r eligible based on patient's age to complete this topic Care Teams Aircraft Designer Relationship Specialty Start Date End Date Chong Rojas II, MD [facility] [place] [address] PCP - General Internal Medicine 08/10/15
--- OUTSIDE RECORDS SUMMARY | 2025-03-09 12:28 | XMS_ITS | Clinical Summary ---
Author Organization [facility] Address [address] [place] [id number] Phone Care Team Providers Care Form Presser Name Role Phone Unavailable Primary Care Provider Unavailabl e Social History Tobacco Use Types Packs/Day Years Used Date Smoking Tobacco: Never Assessed Education Answer Date Recorded Are you interested in more education? Not on darlene e 11/26/2024 Are you concerned about learning? Not on file 11/26/2024 No 11/26/2024 No 11/26/2024 Digital Access Answer Date Recorded No 11/26/2024 No 11/26/2024 Reliable internet access at home? Not on file 11/26/2024 Device with a working camera? Not on file Sex and Gender Information Value Date Recorded Sex Assigned at Not on file Legal Sex Male 11:24 AM EDT Gender Identity Not on file Sexual Orientation Not on file Plan of Treatment Not on file Medical Devices Not on file Insurance [facility] Address: [address] [address] [facility] Additional Source Comments The information contained in this document represents components of the legal health record. It is not the complete legal health record.[facility]
[2025-03-09 12:57] VITALS: BP 135/67; PULSE 72; RESP 21; O2SAT 94
[2025-03-09 12:58] VITALS: BP 135/67; PULSE 89
[2025-03-09 14:23] LABS: VBG HCO3 29 mmol/L (22-26); VBG O2 % Saturation 54.0 %
[2025-03-09 14:24] LABS: Venous Blood Gas Refer to POC result
[2025-03-09 14:36] LABS: D Dimer High Sensitivity 187 NG/ML
[2025-03-09 14:39] LABS: COVID-19 Test Negative (Negative); IDNOW Serial# 55D5AD1C
[2025-03-09 14:45] LABS: Troponin-I High Sensitivity 2.9 ng/L (<3.5-35.0)
--- NOTE | 2025-03-09 14:46 | PC.NURSE ---
Pt reports increased chest pain and FROST 10 after NTG SL gv; SR 78; denies SOB/dizziness/N/V at this time; POC BG 342; provider made aware; awaiting orders
--- NOTE | 2025-03-09 16:27 | ECG_ITS ---
Test Reason : monitoring Blood Pressure : */* mmHG Vent. Rate : 70 BPM Atrial Rate : 70 BPM P-R Int : 156 ms QRS Dur : 88 ms QT Int : 406 ms P-R-T Axes : 35 22 68 degrees QTcB Int : 438 ms Normal sinus rhythm Normal ECG When compared with ECG of 09-Mar-2025 10:04, No significant change was found Referred By: Roseann Barber Electronically Signed By: ADELAIDA PALOMO
[2025-03-09 16:49] VITALS: BP 129/64; PULSE 77; RESP 16; TEMP 36.4; O2SAT 97
--- NOTE | 2025-03-09 16:50 | PC.NURSE ---
Pt reports no change in FROST or left sided CP; SR per tele; repeat EKG completed per MD; MD at bedside to reeval
[2025-03-09 17:16] VITALS: BP 129/64; PULSE 77; RESP 16; TEMP 36.4; O2SAT 97
== END 2025-03-09 17:17 | disposition home or self-care (01) ==
PROVIDERS: Emergency Provider Emergency Medicine; PCP Family Medicine
DX: R07.9 Chest pain, unspecified (principal); R06.02 Shortness of breath; R42 Dizziness and giddiness; E11.9 Type 2 diabetes mellitus without complications; I10 Essential (primary) hypertension; F41.9 Anxiety disorder, unspecified; E78.5 Hyperlipidemia, unspecified; R94.31 Abnormal electrocardiogram [ECG] [EKG]; M41.9 Scoliosis, unspecified; M47.815 Spondylosis without myelopathy or radiculopathy, thoracolumbar region
CPT/HCPCS: 36415; 71046; 80048; 80076; 82010; 82803; 82947; 83690; 84484; 85025; 85379; 87635; 93005; 99284

== ENCOUNTER → 2025-03-09 10:04 | Outpatient (BNV) | payer OTHER, SELFPAY | PROVIDERS: Emergency Provider Emergency Medicine; PCP Family Medicine; Visit Provider Internal Medicine | DX: R94.31 Abnormal electrocardiogram [ECG] [EKG] (principal); R07.9 Chest pain, unspecified | CPT/HCPCS: 93010 ==

== ENCOUNTER → 2025-03-09 11:35 | Outpatient (BNV) | payer OTHER, SELFPAY | PROVIDERS: Emergency Provider Emergency Medicine; PCP Family Medicine; Visit Provider Radiology Diagnostic Radiology | DX: R07.89 Other chest pain (principal); M47.815 Spondylosis without myelopathy or radiculopathy, thoracolumbar region; M41.84 Other forms of scoliosis, thoracic region | CPT/HCPCS: 71046 ==

== ENCOUNTER 2025-07-12 12:29 | Outpatient (AMB) | payer OTHER, SELFPAY ==
--- OUTSIDE RECORDS SUMMARY | 2025-07-06 23:59 | XMS_ITS | Continuity of Care Document ---
Author Organization [facility] Address [address] [place] [address] [address], [address] [place] [address]- Care Team Providers Care Education Department Chair Name Role Phone Raysa JAY, Manpreet Garcia Primary Care Physician [phone] [id number] Date(s): 06/29/25 - 07/06/25 [facility] [address] [place] [address] Drive [address] [place] [address]- Attending Physician: Calixto Turner MD Referring Physician: Manpreet Tabares MD Encounter Type: Office Visit Allergies, Adverse Reactions, Alerts Substance Criticality Severity Reaction Reaction Severity Status codeine loopy Active Functional Status Functional Status Assessment Assessment Assessment Component Result Effecti ve Date Disability status [CUBS] I'm Thriving - no identified disability 06/29/25 Do you have serious difficulty walking or climbing stairs No 06/29/25 Do you have difficul ty dressing or bathing No 06/29/25 Are you deaf, or do you have serious difficulty hearing No 06/29/25 Difficulty communica ting in usual language No 06/29/25 Do you need any edwige tional assistance or accommodations during your visit No 06/29/25 Because of a physica l, mental, or emotional condition, do you have difficulty doing errands alone such as visiting a physician's office or shopping No 06/29/25 Because of a physica l, mental, or emotional condition, do you have serious difficulty concentrating, remembering, or making decisions No 06/29/25 Difficulty Reading O r Writing No 06/29/25 Are you blind, or do you have serious difficulty seeing, even when wearing glasses No 06/29/25 Immunizations Given and Recorded Vaccine Date Status Refusal Reason influenza virus vaccine, inactivated 1 07/12/24 Gi thong influenza virus vaccine, inactivated 05/26/23 Give n influenza virus vaccine, inactivated 04/13/22 Declan rded influenza virus vaccine, inactivated 04/27/21 Declan rded influenza virus vaccine, inactivated 2 05/10/19 Gi thong influenza virus vaccine, inactivated 04/25/18 Give n influenza virus vaccine, inactivated 3 04/12/14 Gi thong [id number] 12y+ bivalent booster vax 06/04/22 Recorded tetanus/diphtheria/pertussis, acel(Tdap) 02/07/22 Recorded SARS-CoV-2 (COVID-19) mRNA BNT-162b2 vac 06/21/21 Recorded SARS-CoV-2 (COVID-19) mRNA BNT-162b2 vac 10/22/20 Recorded SARS-CoV-2 (COVID-19) mRNA BNT-162b2 vac 10/01/20 Recorded Influenza Virus Vaccine (oldterm) 04/06/20 Recorde d Fluarix (oldterm) 4 05/03/11 Given Tet/diphth/pertussis, acel (oldterm) 5 11/26/10 Gi thong 1Result Comment: [facility]: [id number] Screeing checklist reviewed with patient. Negative for any contraindications. 2Result Comment: [facility]-[id number] 3Admin Note: At work 4Admin Note: REFUSED 5Admin Note: 2009 OLD PCP Medications acetaminophen 325 mg oral tablet 975 mg, 3, tablet, By Mouth, 3 times a day, PRN, Temperature Greater than 100.5, Refills 0, Maintenance, Pain , Mild, 10/07/23 12:15:00 PM EDT, Partial fill upon patient request if the prescription isfor a schedule II opioid drug. Start Date: 10/07/23 Status: Ordered Medication Dispense Status: Completed Total Allowed Fills: 1 Fills Dispensed: 0 amLODIPine 10 mg oral tablet 10 mg, 1, tablet, By Mouth, Daily, # 90 tablet, Refills 3, Tot. Refills 3, Maintenance, 12/08/24 11:57:00 AM EDT, Route to Pharmacy Electronically, [facility]/pharmacy #[id number], Partial fill upon patient request if the prescription is for a schedule II opioid drug., 173, cm, 12/08/24 11:37:00 EDT, Height, 82,kg, 12/06/24 14:02:00 EDT, Dry Weight Start Date: 12/08/24 Status: Ordered Medication Dispense Status: Completed Quantity: 90.0 Unit: tablet Total Allowed Fills: 4 Fills Dispensed: 0 ARIPiprazole 5 mg oral tablet 1, tablet, By Mouth, Daily, # 90 tablet, Refills 4, Maintenance, 10/17/23 2:49:00 AM EDT, Route to Pharmacy Electronically, [id number], 173, cm, 10/15/23 11:35:00 EDT, Height, 77.9, kg, 10/02/23 16:26:00 EDT, Dry Weight Start Date: 10/17/23 Status: Ordered Medication Dispense Status: Completed Quantity: 90.0 Unit: tablet Total Allowed Fills: 1 Fills Dispensed: 0 aspirin 81 mg oral delayed release tablet 81 mg, By Mouth, Daily, # 90 tablet, Refills 0, Tot. Refills 0, Maintenance, 10/18/24 1:39:00 PM EDT,Route to Pharmacy Electronically, [facility]/pharmacy #[id number], Partial fill upon patient request if the prescription is for a schedule II opioid drug., 173, cm, 10/18/24 10:09:00 EDT, Height, 78.7, kg, 10/17/24 20:23:00 EDT, Dry Weight Start Date: 10/18/24 Stop Date: 01/16/25 Status: Ordered Medication Dispense Status: Completed Quantity: 90.0 Unit: tablet Total Allowed Fills: 1 Fills Dispensed: 0 atorvastatin 80 mg oral tablet 1 tablet, By Mouth, Daily, # 90 tablet, 3 Refills, Maintenance, 01/18/25 5:13:00 AM EDT, [id number], 173, cm, 12/08/24 11:37:00 EDT, Height, 82, kg, 12/06/24 14:02:00 EDT, Dry Weight Start Date: 01/18/25 Status: Ordered Medication Dispense Status: Completed Quantity: 90.0 Unit: tablet Total Allowed Fills: 1 Fills Dispensed: 0 buPROPion 300 mg/24 hours (XL) oral tablet, extended release 1 tablet = 300 mg, By Mouth, Every 24 hours, # 90 tablet, 3 Refills, Maintenance, 12/08/24 11:58:00 AM EDT, [facility]/pharmacy #[id number], Partial fill upon patient request if the prescription is for a schedule II opioid drug., 173, cm, 12/08/24 11:37:00 EDT, Height, 82, kg, 12/06/24 14:02:00 EDT, Dry Weight Start Date: 12/08/24 Status: Ordered Medication Dispense Status: Completed Quantity: 90.0 Unit: tablet Total Allowed Fills: 4 Fills Dispensed: 0 duloxetine 20 mg oral enteric coated capsule 1 capsule = 20 mg, By Mouth, 2 times a day, # 60 capsule, 5 Refills, Maintenance, 12/08/24 11:56:00 AM EDT, [facility]/pharmacy #[id number], Partial fill upon patient request if the prescription is for a schedule II opioid drug., 173, cm, 12/08/24 11:37:00 EDT, Height, 82, kg, 12/06/24 14:02:00 EDT, Dry Weight Start Date: 12/08/24 Status: Ordered Medication Dispense Status: Completed Quantity: 60.0 Unit: capsule Total Allowed Fills: 6 Fills Dispensed: 0 FreeStyle Letitia 3 Plus Sensors See Instructions, # 2 each, Refills 11, Tot. Refills 11, Maintenance, Use to check BS's per PCP E11.9 IDDM, 04/08/25 1:51:00 PM EDT, Supply, 173, cm, 04/01/25 10:56:00 EDT, Height, 79.8, kg, 03/05/25 21:43:00 EDT, Dry Weight Start Date: 04/08/25 Status: Ordered Medication Dispense Status: Completed Quantity: 2.0 Unit: each Total Allowed Fills: 12 Fills Dispensed: 0 FreeStyle Letitia 3 [place] See Instructions, # 1 each, Refills 0, Tot. Refills 0, Maintenance, Use to test BS's tid and prn per PCP for E11.9 IDDM, 04/08/25 1:52:00 PM EDT, Supply, 173, cm, 04/01/25 10:56:00 EDT, Height, 79.8, kg, 03/05/25 21:43:00 EDT, Dry Weight Start Date: 04/08/25 Status: Ordered Medication Dispense Status: Completed Quantity: 1.0 Unit: each Total Allowed Fills: 1 Fills Dispensed: 0 Freestyle Lite Monitor See Instructions, # 1 each, Refills 0, Tot. Refills 0, Maintenance, Use to test BS tid per PCP E11.9 IDDM, 04/08/25 1:50:00 PM EDT, Supply, 173, cm, 04/01/25 10:56:00 EDT, Height, 79.8, kg, 03/05/25 21:43:00 EDT, Dry Weight Start Date: 04/08/25 Status: Ordered Medication Dispense Status: Completed Quantity: 1.0 Unit: each Total Allowed Fills: 1 Fills Dispensed: 0 gabapentin 400 mg oral capsule 800 mg, 2, capsule, By Mouth, Daily at bedtime, Pt told to stop taking gabapentin from ED doctor 04/01/25, # 60 capsule, Refills 0, Tot. Refills 0, Maintenance, 03/03/25 2:36:00 PM EDT, Do Not Route, Partial fill upon patient request if the prescription is for a schedule II opioid drug. Start Date: 03/03/25 Status: Ordered Medication Dispense Status: Completed Quantity: 60.0 Unit: capsule Total Allowed Fills: 1 Fills Dispensed: 0 Januvia 50 mg oral tablet 1 tablet, By Mouth, Daily, # 90 tablet, 1 Refills, Maintenance, 05/02/25 2:45:00 PM EDT, [id number], 173, cm, 05/01/25 19:47:00 EDT, Height, 79.7, kg, 05/01/25 19:47:00 EDT, Dry Weight Start Date: 05/02/25 Status: Ordered Medication Dispense Status: Completed Quantity: 90.0 Unit: tablet Total Allowed Fills: 1 Fills Dispensed: 0 Lantus Solostar Pen 100 units/mL subcutaneous solution = 14 units, Subcutaneous Infusion, Daily, # 10 mL, 3 Refills, Maintenance, 06/22/25 7:00:00 AM EST,Injection, [facility]/pharmacy #[id number], Partial fill upon patient request if the prescription is for a schedule II opioid drug., 173, cm, 05/01/25 19:47:00 EDT, Height, 79.7, kg, 05/01/25 19:47:00 EDT, Dry Weight Start Date: 06/22/25 Status: Ordered Medication Dispense Status: Completed Quantity: 10.0 Unit: mL Total Allowed Fills: 4 Fills Dispensed: 0 MetFORMIN (Eqv-Glucophage XR) 500 mg oral tablet, extended release 2 tablet, By Mouth, 2 times a day, # 360 tablet, 3 Refills, Maintenance, 01/18/25 5:13:00 AM EDT, [id number], 173, cm, 12/08/24 11:37:00 EDT, Height, 82, kg, 12/06/24 14:02:00 EDT, Dry Weight Start Date: 01/18/25 Status: Ordered Medication Dispense Status: Completed Quantity: 360.0 Unit: tablet Total Allowed Fills: 1 Fills Dispensed: 0 Plavix 75 mg oral tablet 75 mg, By Mouth, Daily, # 90 tablet, Refills 0, Tot. Refills 0, Maintenance, 10/18/24 1:39:00 PM EDT,Route to Pharmacy Electronically, [facility]/pharmacy #[id number], Partial fill upon patient request if the prescription is for a schedule II opioid drug., 173, cm, 10/18/24 10:09:00 EDT, Height, 78.7, kg, 10/17/24 20:23:00 EDT, Dry Weight Start Date: 10/18/24 Stop Date: 01/16/25 Status: Ordered Medication Dispense Status: Completed Quantity: 90.0 Unit: tablet Total Allowed Fills: 1 Fills Dispensed: 0 valsartan 320 mg oral tablet 1 tablet, By Mouth, Daily, # 90 tablet, 1 Refills, Maintenance, 04/20/25 4:53:00 PM EDT, [id number], 173, cm, 04/11/25 16:30:00 EDT, Height, 79.8, kg, 03/05/25 21:43:00 EDT, Dry Weight Start Date: 10/8/25 Status: Ordered Medication Dispense Status: Completed Quantity: 90.0 Unit: tablet Total Allowed Fills: 1 Fills Dispensed: 0 Problem List Condition Confirmation Course Effective Dates Status Health Status Informant Bacteremia Confirmed Active Benign hypertension Confirmed Active Borderline personality disorder Confirmed Active 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 Confirmed Active Depression Confirmed Active Diabetes mellitus Confirmed Active Erectile dysfunction Confirmed Active Hypercholesterolemia Confirmed Active HTN (hypertension) Confirmed Active Ineffective self health management Confirmed Active 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 LBBB (left bundle branch block) Confirmed Active Chronic antibiotic suppression Confirmed Active Mood disorder Confirmed Active Neuropathic pain Confirmed Active Normocytic anemia Confirmed Active Orthostatic hypotension Confirmed Active Major depressive disorder, recurrent Confirmed Active Thyroid nodule 1 Confirmed Active Vertebral artery occlusion Confirmed Active 1Seen incidentally on CT/CT angiogram August 2022 Vital Signs Most recent to oldest [Reference Range]: 1 Height 173 cm (06/29/25 1:29 PM) Weight 79.7 kg (06/29/25 1:29 PM) Body Mass Index [18.5-24.99 kg/m2] 26.63 kg/m2 *H* (06/29/25 1:29 PM) Social History Social History Type Response Smoking Status Never smoker entered on: 06/30/13 Sex Male Sex Representation Male (finding) Patient Care team information Care Team Personnel Name: Jessie Castaneda RN Position: [facility] RN Member Role: Primary Care Nurse Name: Pham Oseguera RN Position: [facility] RN Member Role: Primary Care Nurse Name: Kelsey Gibbons RN Position: [facility] RN Member Role: Primary Care Nurse Name: Kelly Swanson RN Position: [facility] [place] Office Staff Member Role: Primary Care Nurse Name: Giselle Marcial RN Position: [facility] RN Member Role: Primary Care Nurse Name: Ashleigh Patel RN Position: [facility] RN Member Role: Primary Care Nurse Name: Luis Miller RN Position: [facility] RN Member Role: Primary Care Nurse Name: Lester Coker RN Position: [facility] RN Member Role: Primary Care Nurse Name: Maris (Bayjillian) Julissa Position: [facility] green marketing specialist Member Role: Conflicts Analyst Name: Zahra Sanders RN Position: [facility] RN Member Role: Primary Care Nurse Name: Manpreet Tabares MD Position: [facility] Physician - Primary Care Member Role: PCP Address: [place] [address]- Telecom: Name: Flory Collier RN Position: [facility] RN Member Role: Primary Care Nurse Name: Barbi Wang RN Position: [facility] ED RN W/OE and Tasks Member Role: Primary Care Nurse Name: Lakeshia Weinstein RN Position: S RN Member Role: Primary Care Nurse Name: Nuria Hui RN Position: [facility] RN Member Role: Primary Care Nurse Name: Eliane Shelton RN Position: [facility] Onco RN Member Role: Primary Care Nurse Name: Faith Dixon RN Position: [facility] RN Member Role: Primary Care Nurse Name: Manoj Friedman RN Position: [facility] RN Member Role: Primary Care Nurse Name: Aretha Ray Position: [facility] [place] Slurry Control Tender Member Role: Conflicts Analyst Name: Emmett Jones RN Position: [facility] RN Member Role: Primary Care Nurse Name: Alejandra Campos RN Position: [facility] RN Member Role: Primary Care Nurse Name: Hilda Kumar RN Position: [facility] RN Member Role: Primary Care Nurse Care Team Related Persons Name: ADINA PIERRE Name: KANDACE PIERRE Name: ZACK PIERRE Insurance Providers Guarantor name[facility] Plan Information #: 1 Payer: [facility] Payer Identifier: KYLER Member Number: [id number] Group Number: [id number] Subscriber Identifier: [id number] Relationship to Subscriber: self Coverage Type: NA Coverage Verification Date: NA Telecom: Address:
--- OUTSIDE RECORDS SUMMARY | 2025-07-07 23:59 | XMS_ITS | Continuity of Care Document ---
Author Organization [facility] Address [address] [place] [address] [address], [address] [place] [address]- Care Team Providers Care Twenty One Dealer Name Role Phone Raysa JAY, Manpreet Garcia Primary Care Physician Encounter [facility] Date(s): 06/07/25 - 07/07/25 [facility] [address] [place] [address] Drive [address] [place], [place] [address] Encounter Type: Triage Allergies, Adverse Reactions, Alerts Substance Criticality Severity Reaction Reaction Severity Status codeine loopy Active Immunizations [...] virus vaccine, inactivated 3 04/12/14 Gi thong [id number] 12y+ bivalent booster vax 06/04/22 Recorded tetanus/diphtheria/pertussis, acel(Tdap) 02/07/22 Recorded SARS-CoV-2 (COVID-19) mRNA BNT-162b2 vac 06/21/21 Recorded SARS-CoV-2 (COVID-19) mRNA BNT-162b2 vac 10/22/20 Recorded SARS-CoV-2 (COVID-19) mRNA BNT-162b2 vac 10/01/20 Recorded Influenza Virus Vaccine (oldterm) 04/06/20 Recorde d Fluarix (oldterm) 4 05/03/11 Given Tet/diphth/pertussis, acel (oldterm) 5 11/26/10 Gi thong 1Result Comment: [facility]: [id number] Screeing checklist reviewed with patient. Negative for any contraindications. 2Result Comment: [facility]-[id number] 3Admin Note: At work 4Admin Note: REFUSED 5Admin Note: 2008 OLD PCP Medications acetaminophen 325 mg oral [...] 11:57:00 AM EDT, Route to Pharmacy Electronically, [facility]/pharmacy #[id number], Partial fill upon patient request if the [...] 2:49:00 AM EDT, Route to Pharmacy Electronically, [facility] [id number], 173, cm, 10/15/23 11:35:00 EDT, Height, 77.9, kg, 10/02/23 16:26:00 EDT, Dry Weight Start Date: 10/17/23 Status: Ordered Medication Dispense Status: Completed Quantity: 90.0 Unit: tablet Total Allowed Fills: 1 Fills Dispensed: 0 aspirin 81 mg oral delayed release tablet 81 mg, By Mouth, Daily, # 90 tablet, Refills 0, Tot. Refills 0, Maintenance, 10/18/24 1:39:00 PM EDT,Route to Pharmacy Electronically, [facility]/pharmacy #[id number], Partial fill upon patient [...] 3 Refills, Maintenance, 01/18/25 5:13:00 AM EDT, [facility] [id number], 173, cm, 12/08/24 11:37:00 EDT, Height, 82, kg, 12/06/24 14:02:00 EDT, Dry Weight Start Date: 01/18/25 Status: Ordered Medication Dispense Status: Completed Quantity: 90.0 Unit: tablet Total Allowed Fills: 1 Fills Dispensed: 0 buPROPion 300 mg/24 hours (XL) oral tablet, extended release 1 tablet = 300 mg, By Mouth, Every 24 hours, # 90 tablet, 3 Refills, Maintenance, 12/08/24 11:58:00 AM EDT, [facility]/pharmacy #[id number], Partial fill upon patient [...] 5 Refills, Maintenance, 12/08/24 11:56:00 AM EDT, [facility]/pharmacy #[id number], Partial fill upon patient [...] 12 Fills Dispensed: 0 FreeStyle Letitia 3 Colton See Instructions, # 1 each, Refills 0, [...] Maintenance, 05/02/25 2:45:00 PM EDT, [id number], 173, cm, 05/01/25 19:47:00 EDT, Height, 79.7, kg, 05/01/25 19:47:00 EDT, Dry Weight Start Date: 05/02/25 Status: Ordered Medication Dispense Status: Completed Quantity: 90.0 Unit: tablet Total Allowed Fills: 1 Fills Dispensed: 0 Lantus Solostar Pen 100 units/mL subcutaneous solution = 14 units, Subcutaneous Infusion, Daily, # 10 mL, 3 Refills, Maintenance, 06/22/25 7:00:00 AM EST,Injection, [id number], Partial fill upon patient request [...] 3 Refills, Maintenance, 01/18/25 5:13:00 AM EDT, [facility], 173, cm, 12/08/24 11:37:00 EDT, Height, 82, kg, 12/06/24 14:02:00 EDT, Dry Weight Start Date: 01/18/25 Status: Ordered Medication Dispense Status: Completed Quantity: 360.0 Unit: tablet Total Allowed Fills: 1 Fills Dispensed: 0 Plavix 75 mg oral tablet 75 mg, By Mouth, Daily, # 90 tablet, Refills 0, Tot. Refills 0, Maintenance, 10/18/24 1:39:00 PM EDT,Route to Pharmacy Electronically, [facility]/pharmacy #[id number], Partial fill upon patient request if the [...] Maintenance, 04/20/25 4:53:00 PM EDT, [facility], 173, cm, 04/11/25 16:30:00 EDT, Height, 79.8, kg, 03/05/25 21:43:00 EDT, Dry Weight Start Date: 04/20/25 Status: Ordered Medication Dispense Status: Completed Quantity: [...] 1Seen incidentally on CT/CT angiogram August 2022 Social History Social History Type Response Smoking Status Never smoker entered on: 06/30/13 Sex Male Sex Representation Male (finding) Patient Care team information Care Team Personnel Name: Jessie Castaneda RN Position: [facility] RN Member Role: Primary Care Nurse Name: Pham Oseguera RN Position: S RN Member Role: Primary Care Nurse Name: Kelsey Gibbons RN Position: [facility] RN Member Role: Primary Care Nurse Name: Kelly Swanson RN Position: [facility] [place] Office Staff Member Role: Primary Care Nurse Name: Giselle Marcial RN Position: [facility] RN Member Role: Primary Care Nurse Name: Ashleigh Patel RN Position: [facility] RN Member Role: Primary Care Nurse Name: Luis Miller RN Position: [facility] RN Member Role: Primary Care Nurse Name: Lester Coker RN Position: [facility] RN Member Role: Primary Care Nurse Name: Maris ([employer]) Julissa Position: [facility] courtesy bus driver Member Role: Regional Commercial Sales Manager Name: Zahra Sanders RN Position: [facility] RN Member Role: Primary Care Nurse Name: Manpreet Tabares MD Position: [facility] Physician - Primary Care Member Role: PCP Address: [address] [place] [id number] Telecom: Name: Flory Collier RN Position: [facility] RN Member Role: Primary Care Nurse Name: Barbi Wang RN Position: [facility] ED RN W/OE and Tasks Member Role: Primary Care Nurse Name: Lakeshia Weinstein RN Position: [facility] RN Member Role: Primary Care Nurse Name: Nuria Hui RN Position: [facility] RN Member Role: Primary Care Nurse Name: Eliane Shelton RN Position: [facility] Onco RN Member Role: Primary Care Nurse Name: Faith Dixon RN Position: [facility] RN Member Role: Primary Care Nurse Name: Manoj Friedman RN Position: [facility] RN Member Role: Primary Care Nurse Name: Aretha Ray Position: [facility] [place] K[place] Member Role: Regional Commercial Sales Manager Name: Emmett Jones RN Position: [facility] RN Member Role: Primary Care Nurse Name: Alejandra Campos RN Position: [facility] RN Member Role: Primary Care Nurse Name: Hilda Kumar RN Position: [facility] RN Member Role: Primary Care Nurse Care Team Related Persons Name: ADINA PIERRE Name: KANDACE PIERRE Name: ZACK PIERRE Insurance Providers Guarantor name: [facility] Information #: 1 Payer: [facility] Payer Identifier: NA Member Number: [id number] Group Number: [id number] Subscriber Identifier: NA Relationship to Subscriber: self Coverage Type: NA Coverage Verification Date: NA Telecom: NA Address: NA
--- NOTE | 2025-07-12 12:53 | MHC.OFFWIV ---
Intake Vital Signs 07/12/25 12:54 Height 5 ft 8 in Weight 173 lb BMI 26.3 BP 116/74 Blood Pressure Location Rt brachial Position Sitting Pulse 85 Pulse Source Pulse Oximeter Pulse Oximetry (%) 98 Oxygen Delivery Method Room Air Intake Visit Reasons: EP RT buttock pain Intake Note: Patient presents c/o right buttock pain that radiates into right low back & down right leg x4 days. Patient Tobacco Use Status: Never used Tobacco Allergies codeine (CODEINE) Allergy (Unknown, Verified 07/12/25 12:56) delayed responses 02/24/17 Medication List - Last Reconciled 07/12/25 by Bhumika Vences MD amlodipine 10 mg See Protocol PO DAILY aripiprazole 5 mg PO DAILY aspirin 81 mg PO DAILY atorvastatin 80 mg PO DAILY bupropion HCl XL 1 tab PO DAILY clopidogrel 75 mg PO DAILY duloxetine 30 mg PO BID gabapentin 800 mg PO BEDTIME insulin glargine (Lantus Solostar U-100 Insulin) 14 units subcut BEDTIME metformin ER 1,000 mg PO BID sitagliptin phosphate (Januvia) 50 mg PO DAILY valsartan 320 mg PO DAILY HPI EP RT buttock pain HPI Details History of Present Illness Cleaning of pain right buttock for the past 3 days 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 He took ibuprofen at home which did help slightly currently he has salon patch on which is helping as well but he is having difficulty sitting on his buttock. I see the patient is on blood thinners, advised against NSAIDs He is able to tolerate codeine however he feels that his response become delayed. But there is no allergy Problem List - Right buttock pain Plan - An X-ray of the hip will be obtained to rule out underlying osseous pathology. - A prescription for Tramadol will also be provided for pain management. May take 1 every 8 hour - The patient was counseled not to drive while taking Tramadol and to monitor for side effects, including constipation or a reaction similar to his allergy to Codeine. - Advised to use a donut cushion to relieve pressure when sitting. - If the X-ray is unremarkable, he should continue pain management and follow up with his primary care provider. - Prescriptions will be sent to the [facility]. Review of Systems - General: No fever no chills - Neurological: No headaches no dizziness - Ear nose throat: No sore throat no hearing difficulty no ear pain - Cardiovascular: No syncope, no chest pain, no palpitations - Gastrointestinal: No nausea vomiting or diarrhea Physical Exam General: No acute distress HEENT: No acute findings Neck: Supple Respiratory system: Able to talk in full sentences, no audible wheeze Gastrointestinal: No pain Extremities: Pain in the right hip, difficulty walking, especially getting up or sitting, flexion and abduction of right leg causes discomfort in hip area 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: Alert awake oriented x3 motor intact Skin: Normal turgor PFSH Medical History History of ETT Thyroid nodule Orthostatic hypertension Degenerative joint disease Cystic disease of kidney Bacteremia Diabetic neuropathy Coronary thrombosis Bacterial pneumonia Hypercholesteremia Major depressive disorder, recurrent severe without psychotic features ILD (interstitial lung disease) Heart disease, unspecified Preop cardiovascular exam Osteomyelitis Diabetic foot ulcer LBBB (left bundle branch block) Type 2 diabetes mellitus with foot ulcer HTN (hypertension) Suicidal ideation Depression Surgical History H/O cardiac catheterization Hx of fusion of cervical spine S/P spinal surgery H/O: vasectomy Family History Father Neck malignant neoplasm Social History Household Members: Spouse Housing: House Do you presently have visiting nurse or other home services: No Alcohol intake: never Patient Tobacco Use Status: Never used Tobacco e-Cigarette/Vaping Use: Never Used Second Hand Smoke Exposure: No Substance Use Type: Marijuana Advance Directives Date on File: 04/11/22 service: No Current occupational status: employed Sexual orientation: Straight/Heterosexual Physical Exam Vital Signs: Last Vital Signs Pulse 85 07/12/25 12:54 BP 116/74 07/12/25 12:54 Pulse Ox 98 07/12/25 12:54 Oxygen Delivery Method Room Air 07/12/25 12:54 BMI result Body Mass Index 26.3 Assessment & Plan Assessment & Plan (1) Hip pain, right: Code(s): M25.551 - Pain in right hip (2) Lower back pain: Code(s): M54.50 - Low back pain, unspecified Qualifiers: Chronicity: acute Back pain laterality: right Sciatica presence: without sciatica Qualified Code(s): M54.50 - Low back pain, unspecified Plan Problem List - Right buttock pain - history of chronic lower back problem Plan - An X-ray of the hip will be obtained to rule out underlying osseous pathology. - A prescription for Tramadol will also be provided for pain management. May take 1 every 8 hour - The patient was counseled not to drive while taking Tramadol and to monitor for side effects, including constipation or a reaction similar to his allergy to Codeine. - Advised to use a donut cushion to relieve pressure when sitting. - If the X-ray is unremarkable, he should continue pain management and follow up with his primary care provider. - Prescriptions will be sent to the [facility]. Orders: Orders XR hip RT min 2V Today M25.551 - Pain in right hip XR lumbar spine 2-3V Today M54.50 - Low back pain, unspecified Medications: New tramadol no driving 50 mg PO Q8H PRN 15 tabs 0RF pain 5 days Discontinued amoxicillin-pot clavulanate 875-125 mg Discontinued Reason: Patient Completed Course 1 tab PO Q12H 7 days 14 tabs 0RF doxycycline hyclate Last filled 09/28/24 Discontinued Reason: Patient Completed Course 100 mg PO BID 7 days 14 caps 0RF Coding Level of Care Code Est Pt Level 3 (81722) Diagnoses Hip pain, right M25.551 Acute right-sided low back pain without sciatica M54.50 Chronicity: acute Back pain laterality: right Sciatica presence: without sciatica
[2025-07-12 12:54] VITALS: BP 116/74; PULSE 85; O2SAT 98; BMI 26.3
--- OUTSIDE RECORDS SUMMARY | 2025-07-12 16:25 | XMS_ITS | Clinical Summary ---
Author Organization [facility] Address [address] [place] [id number] Phone Care Team Providers Care Coo Name Role Phone Unavailable Primary Care Provider [...] file Medical Devices Not on file [place] [facility] Address: [address] [address] [facility] Additional Source Comments The information contained in this document represents components of the legal health record. It is not the complete legal health record.[facility]
--- OUTSIDE RECORDS SUMMARY | 2025-07-12 16:25 | XMS_ITS | Clinical Summary ---
Author Organization [facility] Prior to 12/11/24 Address [address] [place] [address] Care Team Providers Care Obiee Lead Developer Name Role Phone Crystal DENNIS MD, Chong Jett Primary Care Provider [phone] Allergies Active Allergy Reactions Criticality Noted Date [...] age to complete this topic Care Teams Obiee Lead Developer Relationship Specialty Start Date End Date Chong Rojas II, MD [address] [place] [address] PCP - General Internal Medicine 08/10/15
--- OUTSIDE RECORDS SUMMARY | 2025-07-12 16:25 | XMS_ITS | Clinical Summary ---
Author Organization [facility] it Address [address] [place] [address] Care Team Providers Care Library Circulation Technician Name Role Phone Chong Rojas MD Primary Care Provider [phone] Medical History Medical History Date Comments Right hand pain DX:Right hand pa in Anxiety DX:Anxiety Depression DX:Depression Hyperlipidemia DX:Hyperlipidemi a High blood pressure DX:High bloo d pressure Diabetes mellitus (CMS/HCC V24, CMS/HCC V28) DX:Diabetes mellitus ([facility]) Family History Medical History Relation Name [...] Orientation Not on file Plan of Treatment Health Maintenance Due Date Last Done Comments DTaP,Tdap,and Td Vaccines (1 - Tdap) 11/29/1983 Pneumococcal Vaccine: 50+ Ye ars (1 of 1 - PCV) 2014 Zoster Vaccines (1 of 2) 2014 Depression Screening 07/14/2024 COVID-19 Vaccine (1 - 2024-2 6 season) 2025 Influenza Vaccine (#1) 2025 RSV Immunization Adult [...] age to complete this topic Care Teams Library Circulation Technician Relationship Specialty Start Date End Date Chong Rojas MD [address] [place] [address] [address] [place] PCP - General Internal Medicine 08/10/15
== END 2025-07-12 13:49 | disposition home or self-care (01) ==
PROVIDERS: PCP Family Medicine; Visit Provider Internal Medicine
DX: M25.551 Pain in right hip (principal); M54.50 Low back pain, unspecified

== ENCOUNTER 2025-07-12 12:29 | Outpatient (REF) | payer OTHER, SELFPAY ==
--- NOTE | ~2025-07-12 | XR_ITS ---
EXAMINATION: XR LUMBAR SPINE 2-3 VIEWS HISTORY: M54.50 - Low back pain, unspecified COMPARISON: There are no prior studies for comparison. FINDINGS: AP, lateral, and coned down views of the lumbar spine are submitted. Osseous mineralization is normal. Five nonrib-bearing lumbar vertebral bodies are identified, maintaining normal height and alignment without evidence of fracture or spondylolisthesis. There is mild degenerative disc disease at the L5-S1 level with disc space narrowing. There is osteoarthritis of the facet joints. The visualized paraspinal soft tissues are unremarkable. XR/XR lumbar spine 2-3V IMPRESSION: Degenerative changes of the lumbar spine as described. Electronically signed by: Calixto Adame MD 07/12/2025 02:29 PM KAYA
--- NOTE | ~2025-07-12 | XR_ITS ---
EXAMINATION: XR HIP, RIGHT CLINICAL INFORMATION: M25.551 - Pain in right hip COMPARISON: None available. TECHNIQUE: Two views of the right hip. FINDINGS: No fracture, dislocation, or suspicious bone lesion. There is normal alignment. There is mild to moderate osteoarthrosis of the right hip joint with superolateral osteophytic spurring of the acetabulum. There is mild joint space narrowing. The femoral head maintains normal contour without evidence of AVN. The trochanters appear normal. There is calcific enthesopathy of the hamstrings insertion. There are vascular calcifications in the soft tissues. XR/XR hip RT min 2V IMPRESSION: Mild to moderate osteoarthrosis of the right hip joint. Electronically signed by: Josiah Day MD 07/12/2025 02:32 PM [facility]AY[facility] OBRIEN
--- OUTSIDE RECORDS SUMMARY | 2025-07-12 17:14 | XMS_ITS | Clinical Summary ---
Author Organization [facility] Address [facility] [place] [address] Care Team Providers Care Microbiology Lab Assistant Name Role Phone Unavailable Primary Care Provider Unavailabl e Social History Tobacco Use Types Packs/Day Years Used Date Smoking Tobacco: Never Assessed Sex and Gender Information Value Date Recorded Sex Assigned at Not on file Legal Sex Male 10:20 PM EDT Gender Identity Not on file Sexual Orientation Not on file Plan of Treatment Health Maintenance Due Date Last Done Comments CT Colonography 1964 Colonoscopy 1964 Colorectal Cancer Screening 1964 FIT DNA 1964 FIT 1964 Sigmoidoscopy (10 year) with FIT yearly 1964 Sigmoidoscopy 1964 HIV screen 1982 Hepatitis C Screening 1982 Lipid Screening 1982 Tetanus/Diphtheria/Pertussis Vaccines (1 - Tdap) 11/28 Pneumoccocal Vaccine: 50+ (1 of 1 - PCV) 2014 Zoster vaccine (1 of 2) 2014 Advance Directive 11/29/2019 Covid-19 Vaccine (1 - 2024- season) 2025 Influenza (Flu) vaccine (1 o f 1 - Influenza standard series) 03/14/2025
== END 2025-07-12 12:30 | disposition home or self-care (01) ==
LOC: HO.HMGCX 12:29
PROVIDERS: PCP Family Medicine; Visit Provider Internal Medicine
DX: M25.551 Pain in right hip (principal); M54.50 Low back pain, unspecified
CPT/HCPCS: 72100; 73502

== ENCOUNTER → 2025-07-12 13:23 | Outpatient (BNV) | payer OTHER, SELFPAY | PROVIDERS: PCP Family Medicine; Visit Provider Radiology Diagnostic Radiology | DX: M16.11 Unilateral primary osteoarthritis, right hip (principal); M54.50 Low back pain, unspecified | CPT/HCPCS: 72100; 73502 ==